=== PATIENT | female | born 1985 | race Caucasian/White ===

== ENCOUNTER 2023-01-05 19:33 | Outpatient (REF) | payer OTHER, SELFPAY ==
[2023-01-12 05:07] LABS: Age Gdln ACOG Testing Note (.); HPV Aptima Positive (Negative); HPV Genotype 16 Negative (Negative); HPV Genotype 18,45 Negative (Negative); IGP, Aptima HPV, rfx 16/18,45 Note (.)
== END 2023-01-05 19:34 ==
LOC: LAB 19:33
PROVIDERS: PCP Physician Assistant; Visit Provider Physician Assistant
DX: Z01.419 Encounter for gynecological examination (general) (routine) without abnormal findings (principal); Z11.51 Encounter for screening for human papillomavirus (HPV)
CPT/HCPCS: 87624; 87625; 88175; G0145

== ENCOUNTER 2023-01-25 17:18 | Outpatient (OUT) | payer OTHER, SELFPAY ==
--- NOTE | 2023-01-25 17:28 | XR_ITS ---
The [address] [address] Patient Name: TIFFANI GROSSMAN MRN: [id number] date: 1985 Sex: F Assigned Patient Location: [facility] Current Patient Location: RAD Accession/Order Number: [id number] Exam Date: 01/25/2023 17:29 Report Date: 01/25/2023 17:45 At the request of: CON ARECHIGA Procedure: XR abdomen 1V EXAM: XR abdomen 1V at 1736 hours HISTORY: KIDNEY STONES N20 . Follow-up study. COMPARISON: None. TECHNIQUE: AP supine abdomen KUB FINDINGS: The bowel gas pattern is unremarkable, with gas and fecal material throughout the colon. There is no evidence of bowel obstruction or focal ileus. Surgical clips are seen in the right upper quadrant. No apparent calcification is seen projecting over the kidneys or expected routes of the ureters. No calcification is seen in the pelvis. Degenerative changes are seen in the lower lumbar spine. IMPRESSION: Unremarkable bowel gas pattern without evidence of bowel obstruction or localized ileus. No focal calcification can be seen projecting over the kidneys and routes of the ureters. Electronically authenticated by: RELL BAEZA Date: 01/25/2023 17:45
== END 2023-01-25 17:19 | disposition home or self-care (01) ==
LOC: RAD 17:21
PROVIDERS: PCP Nurse Practitioner Primary Care; Visit Provider Urology
DX: N20.0 Calculus of kidney (principal)
CPT/HCPCS: 74018

== ENCOUNTER 2023-05-13 08:37 | Outpatient (OUT) | payer OTHER, SELFPAY ==
--- NOTE | 2023-05-13 08:39 | US_ITS ---
The [address] [address] Patient Name: TIFFANI GROSSMAN MRN: [id number] date: 1985 Sex: F Assigned Patient Location: US Current Patient Location: US Accession/Order Number: [id number] Exam Date: 05/13/2023 08:39 Report Date: 05/13/2023 15:14 At the request of: YOAN TOLEDO Procedure: US OB transvaginal EXAMINATION: US OB transvaginal HISTORY: MISSED MENSES COMPARISON: No relevant comparison available. FINDINGS: GESTATIONAL SAC: Present and normal appearing. YOLK SAC: Present and normal appearing. POLE: Present and normal appearing. CARDIAC: Present. UTERUS: Normal size and appearance. OVARIES: Right: Normal. Left: Not seen. CERVIX: 4.8 cm in length and closed. CUL-DE-SAC: Normal. OTHER: None. AGE BY LMP: 6 weeks 4 days ELPIDIO BY LMP: 01/02/2024 AGE BY US CRL: 6 weeks 5 days ELPIDIO BY US CRL: 01/01/2024 US/US OB transvaginal IMPRESSION: 1. Single live intrauterine . Electronically authenticated by: JOIE AYALA Date: 05/13/2023 15:14
== END 2023-05-13 08:38 | disposition home or self-care (01) ==
LOC: US 08:37
PROVIDERS: PCP Nurse Practitioner Primary Care; Visit Provider Obstetrics & Gynecology
DX: Z34.91 Encounter for supervision of normal pregnancy, unspecified, first trimester (principal); Z3A.01 Less than 8 weeks gestation of pregnancy
CPT/HCPCS: 76817

== ENCOUNTER 2023-06-08 10:00 | Outpatient (OUT) | payer OTHER, SELFPAY ==
[2023-06-08 10:32] LABS: Basophils Percent Auto 0.3 % (0.2-2.0); Eosinophils Percent Auto 0.4 % (0.9-7.0); Hematocrit 35.7 % (36.0-48.0); Immature Granulocytes Abs Auto 0.02 10^3/uL (0.00-0.03); Immature Granulocytes Pct Auto 0.3 % (0.0-0.5); Lymphocytes Absolute Auto 1.6 10^3/uL (1.2-3.8); Lymphocytes Percent Auto 19.8 % (20.5-60.0); Mean Corpuscular HGB Conc 33.6 g/dL (29.9-35.2); Mean Corpuscular Hemoglobin 27.6 pg (26.7-34.0); Mean Corpuscular Volume 82.3 fL (81.0-99.0); Mean Platelet Volume 9.9 fL (9.5-13.5); Monocytes Absolute Auto 0.4 10^3/uL (0.3-0.8); Monocytes Percent Auto 4.8 % (1.7-12.0); Neutrophils Absolute Auto 5.9 10^3/uL (1.4-6.5); Neutrophils Percent Auto 74.4 % (43.0-75.0); Platelet Count 202 10^3/uL (150-450); Red Blood Count 4.34 10^6/uL (4.20-5.40); Red Cell Distribution Width 14.4 % (11.0-15.0); White Blood Count 7.9 10^3/uL (4.0-11.0)
[2023-06-08 10:44] LABS: Estimated Average Glucose 91 mg/dL; Glycohemoglobin A1C 4.8 % (4.5-6.2)
[2023-06-08 11:01] LABS: Thyroid Stimulating Hormone 6.977 uIU/mL (0.358-3.740)
[2023-06-09 08:11] LABS: HIV Ab/p24 Ag Screen Non Reactive (Non Reactive)
[2023-06-09 09:11] LABS: Rubella Antibodies, IgG 1.09 index (Immune >0.99)
[2023-06-09 11:12] LABS: Rapid Plasma Reagin, Quant Non Reactive titer (NonRea<1:1)
[2023-06-09 12:12] LABS: HBsAg Screen Negative (Negative); HCV Ab Non Reactive (Non Reactive)
== END 2023-06-08 10:01 | disposition home or self-care (01) ==
LOC: LAB 10:01
PROVIDERS: PCP Nurse Practitioner Primary Care; Visit Provider Obstetrics & Gynecology
DX: N92.6 Irregular menstruation, unspecified (principal)
CPT/HCPCS: 36415; 83036; 84443; 85025; 86592; 86762; 86803; 86850; 86900; 86901; 87086; 87340; 87389

== ENCOUNTER 2023-07-21 21:04 | Outpatient (REF) | payer OTHER, SELFPAY ==
--- OUTSIDE RECORDS SUMMARY | 2023-07-21 21:07 | XMS_ITS | CCD ---
Author Name Unknown Address [address] [place] [address] Organization [facility] Care Team Providers Care Interior Decorator Paperhanging Name Role Phone KWAN ., LUKE Admitting Unavailable KWAN ., LUKE Attending Unavailable HAY ., DR ROBERTO Consulting Unavailable SHAMMO, WILBER Primary Care Unavailable LUE .ALYSON Consulting Unavailable LOMBARDO, LINDA Consulting Unavailable ITKIN, ALEXA Consulting Unavailable KWAN ., LUKE Consulting Unavailable SHAMMO, WIBLER Attending Unavailable SHAMMO, WILBER Admitting Unavailable SHAMMO, WILBER Consulting Unavailable SHAMMO, WILBER Attending Unavailable SHAMMO, WILBER Admitting Unavailable SHAMMO, WILBER Primary Care Unavailable SHAMMO, WILBER Consulting Unavailable Denys Landa Unavailable SHAMMO, WILBER TOMASA Primary Care Physician MD Denys Landa Attending Provider [phone] Shammo, [facility] Wilber T Primary Care Provider [phone] Denys Landa Attending Unavailabl e Denys Landa Admitting Unavailabl e Shammo, Wilber T Primary Care Unavailable YOAN TOLEDO Attending Unavailable SHAMMO, WILBER Primary Care Unavailable Alyson Chiu Attending Unavailable Alyson Chiu Attending Unavailable SHAMMO, WILBER Primary Care Unavailable SHAMMO, WILBER Primary Care Unavailable Alyson Chiu Admitting Unavailable Alyson Chiu Attending Unavailable Allergies Allergy Classification Reported Allergen(s) Allergy Type Date of Onset Reaction(s) Facility (3 sources) Penicillin Drug Allergy 3 Unknown [facility] Repository (5 sources) Penicillins; Translations: [penicillins] Allergy to substance 3 Anaphylaxis (disorder) [facility] Medications Current Medications Medication Drug Class(es) Dates Sig (Normalized) Sig (Original) amLODIPine 10 mg oral tablet (5 sources) Dihydropyridine Calcium Channel Harsh Start: 03-14-2023 take 10 mg by mouth once daily Amlodipine Active 10 MG PO Daily March 14, 2023 12:00am Start: 01-26-2023 amLODIPine 10 mg Tab Refills(s) 0 Start Date: 01/26/23 Status: Ordered diclofenac sodium 75 mg delayed release oral tablet (1 source) Nonsteroidal Anti-inflammatory Drug Start: 03-14-2023 take 75 mg by mouth twice daily Diclofenac Sodium Active 75 MG PO Twice daily March 14, 2023 12:00am diphenhydrAMINE hydrochloride 50 mg oral capsule (3 sources) Histamine-1 Receptor Antagonist Start: 03-14-2023 take 50 mg by mouth once daily at bedtime Diphenhydramine Hcl Active 50 MG PO Daily at bedtime March 14, 2023 12:00am escitalopram 10 mg oral tablet (5 sources) Serotonin Reuptake Inhibitor Start: 03-14-2023 take 10 mg by mouth once daily Escitalopram Oxalate Active 10 MG PO Daily March 14, 2023 12:00am Start: 01-26-2023 escitalopram 1 0 mg Tab Refills(s) 0 Start Date: 01/26/23 Status: Ordered take 1 tablet by pablo th every twenty-four hours Escitalopram Oxalate 5 MG 1 tablet Orally Once a day Active ferrous sulfate 134 mg oral tablet (3 sources) Start: 03-14-2023 take 27 mg by mouth once daily Ferrous Sulfate Active 27 MG PO Daily March 14, 2023 12:00am take 1 tablet by mouth three niko es weekly Iron 325 (65 Fe) MG 1 tablet Orally Three times a Week Active fluocinolone acetonide 0.1 mg/ml topical oil (2 sources) Corticosteroid Fluocinolone Bonifacio tonide Scalp 0.01 % 1 application Externally Twice a day Active fluocinonide 0.5 mg/ml topical solution (1 source) Corticosteroid Start: 03-14-2023 Fluocinonide Active 1 APPLIC TOPICAL every other day March 14, 2023 12:00am Iron Chews (2 sources) Start: 01-26-2023 take 1 mg by mouth once daily Iron Chews mg, Oral, Daily, Refills(s) 0 Start Date: 01/26/23 Status: Ordered levothyroxine sodium 0.137 mg oral tablet (5 sources) l-Thyroxine Start: 03-14-2023 take 1 tablet by mouth once daily Levothyroxine (Synthroid) 137 mcg tablet Active 137 MCG PO Daily March 14, 2023 12:00am Start: 01-26-2023 take 1 capsule by [facility] once daily levothyroxine 137 mcg (0.137 mg) oral capsule mcg cap(s), Oral, Daily, Refills(s) 0 Start Date: 01/26/23 Status: Ordered Levothyroxine So dium Active meclizine hydrochloride 25 mg oral tablet (5 sources) Antiemetic Start: 03-14-2023 take 25 mg by mouth once daily Meclizine Active 25 MG PO Daily March 14, 2023 12:00am Start: 01-26-2023 take 1 mg by mouth once daily meclizine 25 mg oral tablet, chewable mg tab(s), Chewed, Daily, Refills(s) 0 Start Date: 01/26/23 Status: Ordered take 1 tablet by [facility] every twelve hours Meclizine HCl 25 MG 1 tablet as needed Orally every 12 hrs Active melatonin 12 mg oral tablet (1 source) Start: 03-14-2023 take 12 mg by mouth at bedtime Melatonin Active 12 MG PO Bedtime March 14, 2023 12:00am 24 hr metoprolol succinate 100 mg extended release oral tablet (5 sources) beta-Adrenergic Harsh Start: 03-14-2023 take 25 mg by mouth once daily Metoprolol Succinate Active 25 MG PO Daily March 14, 2023 12:00am Start: 01-26-2023 take 1 mg by mouth once daily metoprolol 100 mg ER Tab mg tab(s), Oral, Daily, Refills(s) 0 Start Date: 01/26/23 Status: Ordered take 1 capsule by [facility] once daily Metoprolol Succinate 100 MG 1 capsule Orally Once a day Active Multi Vitamin+ (2 sources) Start: 01-26-2023 Multi Vitamin+ Refill(s) 0 Start Date: 01/26/23 Status: Ordered omeprazole 40 mg delayed release oral capsule (5 sources) Proton Pump Inhibitor Start: 03-14-2023 take 40 mg by mouth once daily Omeprazole Active 40 MG PO Daily March 14, 2023 12:00am Start: 01-26-2023 take 1 mg by mouth once daily omeprazole 40 mg Cap-DR mg cap(s), Oral, Daily, Refills(s) 0 Start Date: 01/26/23 Status: Ordered ondansetron 4 mg disintegrating oral tablet (5 sources) Serotonin-3 Receptor Antagonist Start: 03-14-2023 Ondansetron Active 4 MG PO As Directed March 14, 2023 12:00am Start: 01-26-2023 take 1 mg by mouth e very eight hours Zofran 4 mg Tab mg tab(s), Oral, q8hr, Refills(s) 0 Start Date: 01/26/23 Status: Ordered take 1 tablet by pablo th every twenty-four hours Ondansetron HCl 4 MG 1 tablet Orally Once a day Active tiZANidine 4 mg oral tablet (1 source) Central alpha-2 Adrenergic Agonist Start: 03-14-2023 Tizanidine Active 4 MG PO As Directed March 14, 2023 12:00am Unisom Sleep Gels (2 sources) Start: 01-26-2023 take 1 mg by mouth every six hours Unisom Sleep Gels mg, Oral, q6hr, Refills(s) 0 Start Date: 01/26/23 Status: Ordered Problems Active Problems Problem Classification Problem Date Documented Da te Episodic/Chronic Abdominal hernia (1 source) Diaphragmatic hernia without obstruction or gangrene Episodic Calculus of urinary tract (3 sources) Ureteric stone; Translations: [Calculus of ureter] Onset: 3 Episodic Cardiac and circulatory congenital anomalies (2 sources) Arteriovenous malformation of digestive system vessel; Translations: [Arteriovenous malformation] Chronic Deficiency and other anemia (8 sources) Iron deficiency anemia, unspecified; Translations: [Iron deficiency anemia, unspecified] Onset: 3 Episodic Deficiency and other anemia (3 sources) Iron deficiency anemia; Translations: [Iron deficiency anemia, unspecified] 03-15-2023 Episodic Diverticulosis and diverticulitis (2 sources) Diverticular disease of colon; Translations: [Diverticulosis of intestine, part unspecified, without perforation or abscess without bleeding] Chronic Esophageal disorders (3 sources) Gastroesophageal reflux disease; Translations: [Gastro-esophageal reflux disease without esophagitis] Chronic Immunizations and screening for infectious disease (1 source) Encounter for screening for human immunodeficiency virus [HIV]; Translations: [ENCOUNTER FOR SCREENING FOR HIV] Onset: 3 Episodic Other gastrointestinal disorders (1 source) Diarrhea, unspecified Episodic Thyroid disorders (1 source) Hypothyroidism, unspecified; Translations: [HYPOTHYROIDISM UNSPECIFIED] Onset: 3 Chronic Past or Other Problems Problem Classification Problem Date Documented Date Episodic/Chronic Other screening for suspected conditions (not mental disorders or infectious disease) (2 sources) Encounter for screening for cardiovascular disorders; Translations: [Encounter for screening for nutritional disorder] Onset: 08-25-2022 Episodic Residual codes; unclassified (1 source) 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]; Translations: [ACQUIRED ABSENCE OF STOMACH] Onset: 08-25-2022 Episodic Results Test Name Value Interpretation Reference Range Facility Reminderson 07-11-2023 Reminders - From: Ewa Valentin To: EU - Recalls Aram; Sent: 01/26/2023 10:51:29 EDT Show up: 06/28/2023 09:51:00 EST Subject: Reminder Message Due Date/Time: 07/28/2023 09:51:00 EST Call pt to schedule a KUB and YAMILETH Called pt and left VM to return our call - From: Ana Sherwood (EU - Recalls Aram) To: Alyson Chiu MD; Sent: 07/11/2023 13:04:24 EST Show up: 07/11/2023 13:03:00 EST Subject: RE: Reminder Message Called pt and she states that she is 15 weeks and was wondering if imaging is still safe. Please advise. - From: Alyson Chiu MD To: EU - Recalls Aram; Sent: 07/11/2023 18:00:02 EST Show up: 07/11/2023 18:00:00 EST Subject: RE: Reminder Message renal US is safe, can hold off on KUB Normal [facility] HCG ( test) Ayana hallman Ql (U)Ordered By: Denys Landa on 03-15-2023 HCG ( test) Ql (U) Negative [facility] HCG,Urineon 03-15-2023 Beta HCG ( test) Ql (U) Negative Normal [facility] Comment on above: Result Comment: PERF ORMED BY: [address] [place] [id number] PATHOLOGIST SUPERVISOR CHLORINE LIQUEFACTION SALVADOR LEHMAN M.D. Performed By: #### U HCG #### [facility] [address] [id number] [facility] Arturo 03-15-2023 L Specimen: [id number] Received: 03/15/23 Status: KENISHA Barnessue Num: [id number] Spec Type: Surgical Subm Dr: Denys Landa MD Tissues: A Duodenum - Biopsy (DUODENAL BX) B STOMACH FOR HP (ANTRAL BX HP) C Esophagus Biopsy (ESOPHAGUS BX) Procedures: HE/6, Gross/Micro L4/3, H PYLORI Age/ Patient Sex Location Account Attending Physician EstefanyLisa R 37/F [id number] Denys Landa MD SPEC NUM: [id number] RECD: 03/15/23 STATUS: KENISHA MONTES DE OAC NUM: [id number] RODERICK: 03/15/23- SUBM DR: Denys Landa MD ENTERED: 03/15/[address] [facility] [address]: CESAR TYPE: Surgical DEPT: S ORDERED: HE/6, Gross/Micro L4/3, H PYLORI ORDERED: HE/6, Gross/Micro L4/3, H PYLORI Pathological Diagnosis A. Duodenal biopsy: - Small bowel mucosa with minor congestion in both fragments, including minor degrees of stromal chronic inflammation in at least 1 fragment, and minor gastric metaplasia in the other fragment, suggesting minor degrees of peptic duodenitis, otherwise still with somewhat preserved villous structures, and without any abnormal lymphocytic exocytosis, or any other features or effects of celiac sprue identified B. Gastric antral biopsy: - Antral mucosa with mild chronic reactive gastropathy, including mildly associated peptic congestion, and rare tiny embedded pill crystal also identified in the lamina propria, otherwise without intestinal metaplasia, acute inflammation, erosion, or any significant stromal chronic inflammation observed - H. pylori immunostain with appropriate control is also negative for identified Helicobacter organisms or infection C. Esophagus biopsy: - Squamous mucosa with mild squamous acanthosis and focally mildly associated lymphocytic exocytosis and spongiosis, and at least 1 noted eosinophil in the stromal portion, otherwise without any obvious eosinophilic exocytosis or eosinophilic esophagitis identified Specimen: [id number] Received: 03/15/23 Status: KENISHA Montes De Oca Num: [id number] Spec Type: Surgical Subm Dr: Denys Landa MD Tissues: A Duodenum - Biopsy (DUODENAL BX) B STOMACH FOR HP (ANTRAL BX HP) C Esophagus Biopsy (ESOPHAGUS BX) Procedures: HE/6, Gross/Micro L4/3, H PYLORI Patient: Lisa Allison [id number] (Continued) Specimen: [id number] Received: 03/15/23 (Continued) Signed (signature on file) Bharti Obrien MD 03/16/23 1658 Specimen: [id number] Received: 03/15/23 Status: KENISHA Montes [place] Num: [id number] Spec Type: Surgical Subm Dr: Denys Landa MD Tissues: A Duodenum - Biopsy (DUODENAL BX) B STOMACH FOR HP (ANTRAL BX HP) C Esophagus Biopsy (ESOPHAGUS BX) Procedures: HE/6, Gross/Micro L4/3, H PYLORI Patient: Lisa Allison [id number] (Continued) Specimen: [id number] Received: 03/15/23-1149 (Continued) Clinical Information LARISSA, rule out sprue, rule out H. pylori, rule out EOE Gross Description A. Received in formalin labeled with the patient's name, date of and duodenal biopsy are two burnham tissues averaging 0.3 cm. Entirely submitted in one cassette labeled A1. B. Received in formalin labeled with the patient's name, date of and antral biopsy is one burnham tissue measuring 0.4 x 0.2 x 0.2 cm. Entirely submitted in one cassette labeled B1. C. Received in formalin labeled with the patient's name, date of and esophagus biopsy is one burnham tissue measuring 0.4 x 0.2 x 0.1 cm. Entirely submitted in one cassette labeled C1. Microscopic Description A. Two H E slides reviewed. The microscopic examination confirms the diagnosis. B. Two H E slides reviewed. The microscopic examination confirms the diagnosis. C. Two H E slides reviewed. The microscopic examination confirms the diagnosis. CPT Codes 36030q7, 89528 -- (more content not included)... [facility] Calculus Analysison 02-06-20 23 Calcium oxalate dihydrate Infrared spectroscopy (Stone) [Mass fraction] 30 % Invalid Interpretation Code [facility] Comment on above: Performed By: #### 1 [id number] #### [facility] [address] [place] [address] Calcium oxalate monohydrate (Stone) [Mass fraction] 70 % Invalid Interpretation Code [facility] Comment on above: Performed By: #### 1 [id number] #### [facility] [address] [place] [address] Color (Stone) Brown Invalid Interpretation Code [facility] Comment on above: Performed By: #### 1 [id number] #### [facility] [address] [place] [address] Composition Comment Invalid Interpretation Code [facility] Comment on above: Result Comment: Perc entage (Represents the % composition) Performed By: #### 1 [id number] #### [facility] [address] [place] [address] Disclaimer: Comment Invalid Interpretation Code [facility] Comment on above: Result Comment: This test was developed and its performance characteristics determined by [employer]. It has not been cleared or approved by the Food and Drug Administration. Performed at: [address] [id number] PhD Roya Prajapati Performed By: #### 1 [id number] #### [facility] [address] [place] [address] Laboratory comment Asa (Report) Comment Invalid Interpretation Code [facility] Comment on above: Result Comment: Brad tafoya questions regarding Calculi Analysis contact [facility] at: [phone]. Performed By: #### 1 [id number] #### [facility] [address] [place] [address] Please Note: Comment Invalid Interpretation Code [facility] Comment on above: Result Comment: Calc dory report will follow via computer, mail or histological illustrator delivery. Performed By: #### 1 [id number] #### [facility] [address] [place] [address] Size (Stone) [Entitic vol] 3x3 Invalid Interpretation Code [facility] Comment on above: Result Comment: Mult iple pieces received. Dimensions of the largest piece reported. Performed By: #### 1 [id number] #### [facility] [address] [place] [address] Specimen source subject Nom Comment Invalid Interpretation Code [facility] Comment on above: Result Comment: Not provided Performed By: #### 1 [id number] #### [facility] [address] [place] [address] Stone Photo Comment Invalid Interpretation Code [facility] Comment on above: Result Comment: Phot ograph will follow under a separate cover Performed By: #### 1 [id number] #### [facility] [address] [place] [address] Weight (Stone) 8 mg Invalid Interpretation Code [facility] Comment on above: Performed By: #### 1 [id number] #### [facility] [address] [place] [address] [employer] 01-26-2023 Forms [id number] #1.00CD:127 Normal [facility] Patient Educationon 01-27-20 23 Patient Education Nephrology Dietary Guidelines to Help Prevent Kidney Stones Kidney stones are deposits of minerals and salts that form inside your kidneys. Your risk of developing kidney stones may be greater depending on your diet, your lifestyle, the medicines you take, and whether you have certain medical conditions. Most people can lower their chances of developing kidney stones by following the instructions below. Your dietitian may give you more specific instructions depending on your overall health and the type of kidney stones you tend to develop. What are tips for following this plan? Reading food labels ? Choose foods with no salt added or low-salt labels. Limit your salt (sodium) intake to less than 1,500 mg a day. ? Choose foods with calcium for each meal and snack. Try to eat about 300 mg of calcium at each meal. Foods that contain 200?500 mg of calcium a serving include: ? 8 oz (237 mL) of milk, calcium-fortifiednon -dairy milk, and calcium-fortifiedfru it juice. Calcium-fortified means that calcium has been added to these drinks. ? 8 oz (237 mL) of kefir, yogurt, and soy yogurt. ? 4 oz (114 g) of tofu. ? 1 oz (28 g) of cheese. ? 1 cup (150 g) of dried figs. ? 1 cup (91 g) of cooked broccoli. ? One 3 oz (85 g) can of sardines or mackerel. Most people need 1,000?1,500 mg of calcium a day. Talk to your dietitian about how much calcium is recommended for you. Shopping ? Buy plenty of fresh fruits and vegetables. Most people do not need to avoid fruits and vegetables, even if these foods contain nutrients that may contribute to kidney stones. ? When shopping for convenience foods, choose: ? Whole pieces of fruit. ? Pre-made salads with dressing on the side. ? Low-fat fruit and yogurt smoothies. ? Avoid buying frozen meals or prepared deli foods. These can be high in sodium. ? Look for foods with live cultures, such as yogurt and kefir. ? Choose high-fiber grains, such as whole-wheat breads, oat bran, and wheat cereals. Cooking ? Do not add salt to food when cooking. Place a salt shaker on the table and allow each person to add his or her own salt to taste. ? Use vegetable protein, such as beans, textured vegetable protein (TVP), or tofu, instead of meat in pasta, casseroles, and soups. Meal planning ? Eat less salt, if told by your dietitian. To do this: ? Avoid eating processed or pre-made food. ? Avoid eating fast food. ? Eat less animal protein, including cheese, meat, poultry, or fish, if told by your dietitian. To do this: ? Limit the number of times you have meat, poultry, fish, or cheese each week. Eat a diet free of meat at least 2 days a week. ? Eat only one serving each day of meat, poultry, fish, or seafood. ? When you prepare animal protein, cut pieces into small portion sizes. For most meat and fish, one serving is about the size of the palm of your hand. ? Eat at least five servings of fresh fruits and vegetables each day. To do this: ? Keep fruits and vegetables on hand for snacks. ? Eat one piece of fruit or a handful of berries with breakfast. ? Have a salad and fruit at lunch. ? Have two kinds of vegetables at dinner. ? Limit foods that are high in a substance called oxalate. These include: ? Spinach (cooked), rhubarb, beets, sweet potatoes, and Israeli chard. ? Peanuts. ? Potato chips, macedonian fries, and baked potatoes with skin on. ? Nuts and nut products. ? Chocolate. ? If you regularly take a diuretic medicine, make sure to eat at least 1 or 2 servings of fruits or vegetables that are high in potassium each day. These include: ? Avocado. ? Banana. ? Garrard, prune, carrot, or tomato juice. ? Baked potato. ? Cabbage. ? Beans and split peas. Lifestyle ? Drink enough fluid to keep your urine pale yellow. This is the most important thing you can do. Spread your fluid intake throughout the day. ? If you drink alcohol: ? Limit how much you use to: ? 0?1 drink a day for women who are not . ? 0?2 drinks a day for men. ? Be aware of how much alcohol is in your drink. In the [place] one drink equals one 12 oz bottle of beer (355 mL), one 5 oz glass of wine (148 mL), or one 1? oz glass of hard liquor (44 mL). ? Lose weight if told by your health care provider. Work with your dietitian to find an eating plan and weight loss strategies that work best for you. General information ? Talk to your health care provider and dietitian about taking daily supplements. You may be told the following depending on your health and the cause of your kidney stones: ? Not to take supplements with vitamin C. ? To take a calcium supplement. ? To take a daily probiotic supplement. ? To take other supplements such as magnesium, fish oil, or vitamin B6. ? Take ephq-fau-xrvqdzg and prescription medicines only as told by your health care provider. These include supplements. What foods should I limit? Limit your in (more content not included)... Normal [facility] RAD - MISCon 01-26-2023 RAD - MISC [id number] #1.00CD:127 Normal [facility] Screenson 01-26-2023 Screens [id number] #1.00CD:127 Normal [facility] Urology Office/Clinic Noteon 01-26-2023 Urology Office/Clinic Note Chief Complaint kidney stones HPI Staff Pt is a new pt, never before seen in our office. Here today due to kidney stones. [facility] 12/27/22 due to Rt flank pain & abdominal pain. DX: punctate Rt UVJ calculus w/ hydro CT 12/27/22 Pt did pass stone. Has with her today. Patient states she did have right flank pain following passing stone but has since subsided. Painful urination: no Blood in urine: no urinary frequency: no urinary urgency: no incomplete emptying: no nocturia: no weak stream: no post void dribbling: no urinary incontinence: no History of Present Illness Tests reviewed: reviewed UA, external records: labs, notes, CT I have reviewed the previous health record information and history for this patient from Dr. Herron @ [facility]. I have reviewed and verified the staff HPI to be accurate for this encounter. There have been no associated fever, chills, or blood in the urine. Denies any urinary infections since last encounter. Review of Systems PHQ Score Initial Depression Screen Score: 0 ROS - Provider Constitutional: denies weight loss, denies hot flashes. Eyes: denies eye problems. Gastrointestinal: denies nausea, denies vomiting. Cardiovascular: denies chest pain or angina. Integumentary: no dryness Musculoskeletal: denies musculoskeletal symptoms. ENMT: denies otolaryngeal symptoms. Respiratory: no shortness of breath. Heme/Lymph: denies easy bleeding tendency, denies easy bruising tendency. Psychiatric: no confusion, no anxiety. Genitourinary: See HPI. Physical Exam Vitals & Measurements HT: 71 in HT: 180.34 cm WT: 127 kg WT: 279.4 lb BMI: 39.05 General Appearance: alert , no acute distress, well nourished, well developed female. Assessment/Plan 37 yo F with hx of gastric sleeve referred for new patient evaluation of ureteral stone. 1. Ureteral stone (N20.1: Calculus of ureter) CT 12/27/22 - Punctate 2 mm Rt UVJ calculus w/ mild Rt hydronephrosis s/p IV Demerol, IV Toradol, and IV Dilaudid for pain, was admitted due to her intractable pain Pt did pass stone. Has with her today. No pain currently. Pt had gastric bypass in 2015 in [place]. Has had diarrhea since she had her baby. Pt is currently in touch with a GI doctor. Pt denies any family hx of kidney stones. We discussed management options moving forward including general dietary modifications, metabolic stone work-up including serum labs and 24-hour urine analysis, continued surveillance with imaging in 6 to 12 months or expectant management. The patient like to proceed with: -Dietary modifications: increase fluid to make 2.5L UOP, increase citrate, moderate animal proteins, less salt, more fruits/vegetables -Diarrhea control, cont workup with GI -Follow up in 6 mos with KUB and YAMILETH. If stones recur, will re-recommend metabolic workup Pt understands and agrees with plan. I spent 30 minutes today with the patient: reviewing tests in preparation to see and discuss them with the patient, obtaining and reviewing external separately obtained history, documenting clinical information in the electronic health records, and care coordination. Over half the time was spent performing a medical exam and evaluation, and counseling and educating the patient Follow-up With When Contact Information Aram RUSSELL, Alyson Burdick URL, URO In 6 months Additional Instructions: w/ KUB & YAMILETH Patient Education Dietary Guidelines to Help Prevent Kidney Stones I, Ewa Valentin, personally scribed for Dr. Chiu on 01/26/2023 10:54:27. . Documentation recorded by the scribe, Ewa Valentin, accurately reflects the services(s) I performed and decisions made by me. Authenticated by Dr. Chiu on 01/26/2023 21:45:19. Problem List/Past Medical History Ongoing Kidney stone Historical No qualifying data Procedure/Surgical History Appendectomy (08/01/2016), Gastric sleeve (08/01/2016), Cholecystectomy (08/01/2005), section, Knee arthroplasty. Medications amLODIPine 10 mg Tab escitalopram 10 mg Tab Iron Chews, Oral, Daily levothyroxine 137 mcg (0.137 mg) oral capsule, Oral, Daily meclizine 25 mg oral tablet, chewable, Chewed, Daily metoprolol 100 mg ER Tab, Oral, Daily Multi Vitamin+ omeprazole 40 mg Cap-DR, Oral, Daily Unisom Sleep Gels, Oral, q6hr Zofran 4 mg Tab, Oral, q8hr Allergies penicillins (Anaphylaxis) Social History Tobacco Former smoker, quit more than 30 days ago Tobacco Use:. Cigarettes, Vaping, 01/26/2023 Immunizations Vaccine Date Status influenza virus vaccine, inactivated 06/01/2022 Recorded Lab Results Ambulatory Point of Care Results Bilirubin Urine Dipstick: 1+ Small (01/26/23 09:53:00) Blood Urine Dipstick: Negative (01/26/23 09:53:00) Glucose Urine Dipstick: Negative (01/26/23 09:53:00) Ketones Urine Dipstick: Negative (01/26/23 09:53:00) Leukocytes Urine Dipstick: Negative (01/26/23 09:53:00) Nitrite Uri (more content not included)... [facility] Comment on above: Result Comment: Elec tronically Signed By: Alyson Chiu MD\.br\Date and Time Signed: 01/26/23 21:46 EDT\.br\Electronically Co-Signed By: Ewa Valentin.br\Date and Time Co-Signed: 01/26/23 10:54 EDT ED Note-Physicianon 01-24-20 ED Note-Physician [id number] 7#1.00CD:127 [facility] Lab Reportson 01-23-2023 Lab Reports [id number] 0#1.00CD:127 Normal [facility] RAD - CT Reporton 01-23-2023 RAD - CT Report [id number]# 1.00CD:127 Normal [facility] CBC AUTO DIFFon 12-28-2022 BASO # 0.0 103/ul Normal 0.0-0.1 [facility] Comment on above: Performed By: #### F ERR, FETIBC #### [facility] [address] [place] [address] Dr. Michele Obrien Basophils/100 WBC (Bld) 0.5 % Normal 0.2-2.0 [facility] Comment on above: Performed By: #### F ERR, FETIBC #### [facility] [address] [place] [address] Dr. Michele Obrien EO # 0.2 103/ul Normal 0.0-0.7 [facility] Comment on above: Performed By: #### F ERR, FETIBC #### [facility] [address] [place] [address] Dr. Michele Obrien Eosinophils/100 WBC (Bld) 2.6 % Normal 0.9-7.0 [facility] Comment on above: Performed By: #### F ERR, FETIBC #### [facility] [address] [place] [address] Dr. Michele Obrien Erythrocyte distribution width (RBC) [Ratio] 19.1 % Critically high 11.0-15.0 [facility] Comment on above: Performed By: #### F ERR, FETIBC #### [facility] [address] [place] [address] Dr. Michele Obrien Hematocrit (Bld) [Volume fraction] 37.6 % Normal 36.0-48.0 [facility] Comment on above: Performed By: #### F ERR, FETIBC #### [facility] [address] [place] [address] Dr. Michele Obrien Hemoglobin (Bld) [Mass/Vol] 11.9 g/dL Critically low 12.0-16.0 [facility] Comment on above: Performed By: #### F ERR, FETIBC #### [facility] [address] [address] [address] Michele Obrien IG # 0.03 10e3/ul Normal 0.00-0.03 [facility] Comment on above: Performed By: #### F ERR, FETIBC #### [facility] [address] [address] [address] Michele Obrien IG % 0.3 % Normal 0.0-0.5 [facility] Comment on above: Performed By: #### F ERR, FETIBC #### [facility] [address] [place] [address] Dr. Michele Obrien LYMPH # 1.6 103/ul Normal 1.2-3.8 [facility] Comment on above: Performed By: #### F ERR, FETIBC #### [facility] [address] [place] [address] Dr. Michele Obrien Lymphocytes/100 WBC (Bld) 18.4 % Critically low 20.5-60.0 [facility] Comment on above: Performed By: #### F ERR, FETIBC #### [facility] [address] [place] [address] Dr. Michele Obrien MANUAL DIFF REQ NO Normal [facility] Comment on above: Performed By: #### F ERR, FETIBC #### [facility] [address] [address] [address] Michele Obrien MCH (RBC) [Entitic mass] 23.7 pg Critically low 26.7-34.0 [facility] Comment on above: Performed By: #### F ERR, FETIBC #### [facility] [address] [place] [address] Dr. Michele Obrien MCHC (RBC) [Mass/Vol] 31.6 g/dL Normal 29.9-35.2 [facility] Comment on above: Performed By: #### F ERR, FETIBC #### [facility] [address] [place] [address] Dr. Michele Obrien MCV (RBC) [Entitic vol] 74.9 fL Critically low 81.0-99.0 [facility] Comment on above: Performed By: #### F ERR, FETIBC #### [facility] [address] [place] [address] Dr. Michele Obrien MONO # 0.5 103/ul Normal 0.3-0.8 [facility] Comment on above: Performed By: #### F ERR, FETIBC #### [facility] [address] [place] [address] Dr. Michele Obrien Monocytes/100 WBC (Bld) 5.9 % Normal 1.7-12.0 [facility] Comment on above: Performed By: #### F ERR, FETIBC #### [facility] [address] [place] [address] Dr. Michele Obrien NEUT # 6.4 103/ul Normal 1.4-6.5 [facility] Comment on above: Performed By: #### F ERR, FETIBC #### [facility] [address] [place] [address] Dr. Michele Obrien Neutrophils/100 WBC (Bld) 72.3 % Normal 43.0-75.0 [facility] Comment on above: Performed By: #### F ERR, FETIBC #### [facility] [address] [place] [address] Dr. Michele Obrien Platelet mean volume (Bld) [Entitic vol] 10.2 fL Normal 9.5-13.5 [facility] Comment on above: Performed By: #### F ERR, FETIBC #### [facility] [address] [place] [address] Dr. Michele Obrien PLT 243 103/ul Normal 150-450 [facility] Comment on above: Performed By: #### F ERR, FETIBC #### [facility] [address] [place] [address] Dr. Michele Obrien RBC 5.02 106/ul Normal 4.20-5.40 [facility] Comment on above: Performed By: #### F ERR, FETIBC #### [facility] [address] [address] [address] Michele Obrien WBC 8.9 103/ul Normal 4.0-11.0 [facility] Comment on above: Performed By: #### F ERR, FETIBC #### [facility] [address] [address] ABD/PELVIS WO CONon 12-28 CT ABD/PELVIS WO CON EXAMINATION: CT ABD/PELVIS WO CON, 12/27/2022 8:45 PM PDT HISTORY: Right flank pain COMPARISON: None. TECHNIQUE: CT scan of the abdomen and pelvis was performed without IV contrast. CT dose reduction technique was used, including Automated Exposure Control. FINDINGS: Lung: No significant finding. Liver: No significant finding. Gallbladder: Absent. Spleen: Borderline splenomegaly. Pancreas: No significant finding. Adrenal glands: No significant finding. Kidneys, ureters and bladder: Punctate right UVJ calculus with mild right hydroureteronephrosi s. Bowel: Surgical changes from gastric sleeve. Small hiatal hernia. Peritoneum/retroperi toneum: No significant finding. Lymph nodes: No significant finding. Vessels: No significant finding. Body wall: Tiny fat-containing umbilical hernia. Reproductive: IUD in place. Bones: No significant finding. IMPRESSION: Punctate right UVJ calculus with mild right hydroureteronephrosi s. Borderline splenomegaly. Small hiatal hernia. Electronically authenticated by: ALEXA WHITE Date: 2022-12-28 02:25 Normal [facility] ER URINE PROFILEon 3 Bilirubin Ql (U) Negative Normal NEGATIVE [facility] Comment on above: Performed By: #### H IV12 #### [facility] [address] [address] [address] Michele Obrien Clarity (U) CLEAR Normal CLEAR [facility] Comment on above: Performed By: #### H IV12 #### [facility] [address] [place], [place] [address] Dr. Michele Obrien Color (U) LT. YELLOW Normal YELLOW [facility] Comment on above: Performed By: #### H IV12 #### [facility] [address] [address] [address] Michele JACKSON A micrscopic examination will be performed if indicated. Normal [facility] Comment on above: Performed By: #### H IV12 #### [facility] [address] [place] [address] Dr. Michele Obrien Glucose Ql (U) Negative Normal NEGATIVE [facility] Comment on above: Performed By: #### H IV12 #### [facility] [address] [address] [address] Michele Obrien Hemoglobin Ql (U) MODERATE Abnormal NEGATIVE [facility] Comment on above: Performed By: #### H IV12 #### [facility] [address] [place] [address] Dr. Michele Obrien Ketones Ql (U) Negative Normal NEGATIVE [facility] Comment on above: Performed By: #### H IV12 #### [facility] [address] [place] [address] Dr. Michele Obrien LEUKOCYTES Negative Normal NEGATIVE [facility] Comment on above: Performed By: #### H IV12 #### [facility] [address] [place] [address] Dr. Michele Obrien Nitrite Ql (U) Negative Normal NEGATIVE [facility] Comment on above: Performed By: #### H IV12 #### [facility] [address] [place] [address] Dr. Michele Obrien pH (U) 5.5 [pH] Normal 5-9 [facility] Comment on above: Performed By: #### H IV12 #### [facility] [address] [place] [address] Dr. Michele Obrien SPEC GRAVITY 1.025 Normal 1.005-<=1.025 [facility] Comment on above: Performed By: #### H IV12 #### [facility] [address] [place] [address] Dr. Michele Obrien UA PROTEIN Negative Normal NEGATIVE/ TRACE [facility] Comment on above: Performed By: #### H IV12 #### [facility] [address] [place] [address] Dr. Michele Obrien UR MICRO IND INDICATED Normal [facility] Comment on above: Performed By: #### H IV12 #### [facility] [address] [place] [address] Dr. Michele Obrien Urobilinogen Qn (U) 0.2 {Ijeoma'U}/dL Normal 0.2 - 1. 0 [facility] Comment on above: Performed By: #### H IV12 #### [facility] [address] [place] [address] Dr. Michele Obrien PREG HCG QUALon 12-28-2022 , QUAL Negative Normal NEGATIVE [facility] Comment on above: Performed By: #### P REG #### [facility] [address] [place] [address] Dr. Michele Obrien PROF 14(COMP METB)on 023 Albumin [Mass/Vol] 3.4 g/dL Normal 3.4-5.0 [facility] Comment on above: Performed By: #### C MP #### [facility] [address] [place] [address] Dr. Michele Obrien Albumin/Globulin [Mass ratio] 1.1 {ratio} Normal [facility] Comment on above: Performed By: #### C MP #### [facility] [address] [place] [address] Dr. Michele Obrien ALP [Catalytic activity/Vol] 73 U/L Normal 46-116 [facility] Comment on above: Performed By: #### C MP #### [facility] [address] [place] [address] Dr. Michele Obrien ALT [Catalytic activity/Vol] 18 U/L Normal 14-59 [facility] Comment on above: Performed By: #### C MP #### [facility] [address] [place] [address] Dr. Michele Obrien Anion gap [Moles/Vol] 11.9 mmol/L Normal [facility] Comment on above: Performed By: #### C MP #### [facility] [address] [place] [address] Dr. Michele Obrien AST [Catalytic activity/Vol] 13 U/L Critically low 15-37 [facility] Comment on above: Performed By: #### C MP #### [facility] [address] [place] [address] Dr. Michele Obrien Bilirubin [Mass/Vol] 0.1 mg/dL Critically low 0.2-1.0 [facility] Comment on above: Performed By: #### C MP #### [facility] [address] [address] [address] Michele Obrien Calcium [Mass/Vol] 8.6 mg/dL Normal 8.5-10.1 [facility] Comment on above: Performed By: #### C MP #### [facility] [address] [place] [address] Dr. Michele Obrien Chloride [Moles/Vol] 105 mmol/L Normal 98-107 [facility] Comment on above: Performed By: #### C MP #### [facility] [address] [place] [address] Dr. Michele Obrien CO2 [Moles/Vol] 26.7 mmol/L Normal 21.0-32.0 [facility] Comment on above: Performed By: #### C MP #### [facility] [address] [place] [address] Dr. Michele Obrien Creatinine [Mass/Vol] 0.85 mg/dL Normal 0.55-1.02 [facility] Comment on above: Performed By: #### C MP #### [facility] [address] [place] [address] Dr. Michele Obrien EGFR-AF ZAMBIAN >60 Normal >=60 [facility] Comment on above: Performed By: #### C MP #### [facility] [address] [address] [address] Michele Obrien EGFR-NON AF ZAMBIAN >60 Normal >=60 [facility] Comment on above: Performed By: #### C MP #### [facility] [address] [place] [address] Dr. Michele Obrien Globulin (S) [Mass/Vol] 3.1 g/dL Normal [facility] Comment on above: Performed By: #### C MP #### [facility] [address] [address] [address] Michele Obrien Glucose [Mass/Vol] 123 mg/dL Critically high 74-106 [facility] Comment on above: Performed By: #### C MP #### [facility] [address] [address] [address] Michele Obrien Potassium [Moles/Vol] 3.6 mmol/L Normal 3.5-5.1 [facility] Comment on above: Performed By: #### C MP #### [facility] [address] [address] [address] Michele Obrien Protein [Mass/Vol] 6.5 g/dL Normal 6.4-8.2 [facility] Comment on above: Performed By: #### C MP #### [facility] [address] [address] [address] Michele Obrien Sodium [Moles/Vol] 140 mmol/L Normal 136-145 [facility] Comment on above: Performed By: #### C MP #### [facility] [address] [address] [address] Michele Obrien Urea nitrogen [Mass/Vol] 14.0 mg/dL Normal 7.0-18.0 [facility] Comment on above: Performed By: #### C MP #### [facility] [address] [address] [address] Michele Obrien Urea nitrogen/Creatinine [Mass ratio] 16.5 mg/mg Normal [facility] Comment on above: Performed By: #### C MP #### [facility] [address] [address] [address] Michele Obrien URINE MICROSCOPIC ONLYon BACTERIA TRACE Abnormal NONE SEEN [facility] Comment on above: Performed By: #### H IV12 #### [facility] [address] [address] [address] Michele Obrien Bacteria identified Cx Nom (U) NOT INDICATED Normal [facility] Comment on above: Performed By: #### H IV12 #### [facility] [address] [place] [address] Dr. Michele Obrien CAST NONE SEEN Normal NONE SEEN [facility] Comment on above: Performed By: #### H IV12 #### [facility] [address] [place] [address] Dr. Michele Obrien Crystals LM Nom (Urine sed) NONE SEEN Normal NONE SEEN [facility] Comment on above: Performed By: #### H IV12 #### [facility] [address] [place] [address] Dr. Michele Obrien Epithelial cells LM Ql (Urine sed) FEW Abnormal NONE SEEN /RARE [facility] Comment on above: Performed By: #### H IV12 #### [facility] [address] [place] [address] Dr. Michele Obrien MUCOUS TRACE Abnormal NONE SEEN [facility] Comment on above: Performed By: #### H IV12 #### [facility] [address] [place] [address] Dr. Michele Obrien RBC 20-50 Abnormal 0-2 [facility] Comment on above: Performed By: #### H IV12 #### [facility] [address] [place] [address] Dr. Michele Obrien WBC 0-2 Abnormal NONE SEEN [facility] Comment on above: Performed By: #### H IV12 #### [facility] [address] [place] [address] Dr. Michele Obrien HIV 1 AND 2 WITH REFLEXon HIV Screen 4th Generation wRfx Non-Reactive Normal Non Reactive [facility] Comment on above: Result Comment: HIV Negative HIV-1/HIV-2 antibodies and HIV-1 p24 antigen were NOT detected. There is no laboratory evidence of HIV infection. Performed By: #### H IV12 #### [facility] [address] [place] [address] Dr. Michele Obrien FERRITINon 10-16-2022 Ferritin [Mass/Vol] 6.0 ng/mL Critically low 6.2-137.0 [facility] Comment on above: Performed By: #### F ERR, FETIBC #### [facility] [address] [place], [place] [id number] Dr. Michele Obrien FREE T3on 10-16-2022 FREE T3 1.87 pg/mlL Critically low 2.18-3.98 [facility] Comment on above: Performed By: #### H IV12 #### [facility] [address] [place] [address] Dr. Michele Obrien HEMOGRAM AND PLATELon 2022 Hematocrit (Bld) [Volume fraction] 35.7 % Critically low 36.0-48.0 [facility] Comment on above: Performed By: #### H H #### [facility] [address] [place] [address] Dr. Michele Obrien Hemoglobin (Bld) [Mass/Vol] 10.4 g/dL Critically low 12.0-16.0 [facility] Comment on above: Performed By: #### H H #### [facility] [address] [place] [address] Dr. Michele Obrien MCH (RBC) [Entitic mass] 20.0 pg Critically low 26.7-34.0 [facility] Comment on above: Performed By: #### H H #### [facility] [address] [place] [address] Dr. Michele Obrien MCHC (RBC) [Mass/Vol] 29.1 g/dL Critically low 29.9-35.2 [facility] Comment on above: Performed By: #### H H #### [facility] [address] [place] [address] Dr. Michele Obrien MCV (RBC) [Entitic vol] 68.5 fL Critically low 81.0-99.0 [facility] Comment on above: Performed By: #### H H #### [facility] [address] [place] [address] Dr. Michele Obrien PLT 241 103/ul Normal 150-450 [facility] Comment on above: Performed By: #### H H #### [facility] [address] [place] [address] Dr. Michele Obrien RBC 5.21 106/ul Normal 4.20-5.40 [facility] Comment on above: Performed By: #### H H #### [facility] [address] [place] [address] Dr. Michele Obrien WBC 6.9 103/ul Normal 4.0-11.0 [facility] Comment on above: Performed By: #### H H #### [facility] [address] [place] [address] Dr. iMchele Obrien IRON AND TIBCon 10-16-2022 % SATURATION 4.5 % Normal [facility] Comment on above: Performed By: #### F ERR, FETIBC #### [facility] [address] [place] [address] Dr. Michele Obrien Iron [Mass/Vol] 18.0 ug/dL Critically low 50.0-170.0 [facility] Comment on above: Performed By: #### F ERR, FETIBC #### [facility] [address] [place] [address] Dr. Michele Obrien TIBC DIRECT 396.0 ug/dL Normal 250.0-450.0 [facility] Comment on above: Performed By: #### F ERR, FETIBC #### [facility] [address] [place] [address] Dr. Michele Obrien TSH W/ REFLEX TO FT4on 10-16 TSH 3.577 uIU/mL Normal 0.358-3.740 [facility] Comment on above: Performed By: #### H IV12 #### [facility] [address] [place] [address] Dr. Michele Obrien VITAMIN Con 09-03-2022 Vitamin C 0.2 mg/dL Critically low 0.4-2.0 [facility] Comment on above: Result Comment: Li min C deficiency is generally defined as plasma or serum concentrations less than 0.2 mg/dL and levels between 0.2 and 0.4 mg/dL are considered low. Performed By: #### F ERR, FETIBC #### [facility] [address] [place] [address] Dr. Michele Obrien VITAMIN Aon 09-01-2022 Vitamin A 33.6 ug/dL Normal 18.9-57.3 [facility] Comment on above: Result Comment: Refe rence intervals for vitamin A determined from [facility] internal studies. Individuals with vitamin A less than 20 ug/dL are considered vitamin A deficient and those with serum concentrations less than 10 ug/dL are considered severely deficient. . This test was developed and its performance characteristics determined by [facility]. It has not been cleared or approved by the Food and Drug Administration. Performed By: #### V ITAMA #### [facility] [address] [place] [address] Dr. Michele Obrien VITAMIN Kodi 09-01-2022 Vitamin E (Alpha T) 11.9 mg/L Normal 5.9-19.4 [facility] Comment on above: Performed By: #### V ITCARSON #### [facility] [address] [place] [address] Dr. Michele Obrien Vitamin E (Gamma T) 1.5 mg/L Normal 0.7-4.9 [facility] Comment on above: Result Comment: Refe rence intervals for alpha and gamma-tocopherol determined from National Health and Nutrition Examination Survey, 3601-2041. Individuals with alpha-tocopherol levels less than 5.0 mg/L are considered vitamin E deficient. Performed By: #### V ITAE #### [facility] [address] [place] [address] Dr. Michele Obrien VITAMIN Garrett 08-26-2022 Vitamin K1 0.24 ng/mL Normal 0.10-2.20 [facility] Comment on above: Performed By: #### F ERR, FETIBC #### [facility] [address] [place] [address] Dr. Michele Obrien SELENIUM, PLASMAon Selenium, Serum/Plasma 110 ug/L Normal 93-198 [facility] Comment on above: Performed By: #### H IV12 #### [facility] [address] [place] [address] Dr. Michele Obrien VITAMIN B1 (THIAMINE)on 08-02 Vit. B1, Whole Blood 126.2 nmol/L Normal 66.5-200.0 [facility] Comment on above: Performed By: #### F ERR, FETIBC #### [facility] [address] [place] [address] Dr. Michele Obrien ZINC SERUM OR PLASMAon 08-23 Zinc, Plasma or Serum 69 ug/dL Normal 44-115 [facility] Comment on above: Result Comment: Dete ction Limit = 5 Performed By: #### H IV12 #### [facility] [address] [place] [address] Dr. Michele Obrien FERRITINon 08-20-2022 Ferritin [Mass/Vol] 5.0 ng/mL Critically low 6.2-137.0 [facility] Comment on above: Performed By: #### F ERR, FETIBC #### [facility] [address] [place] [address] Dr. Michele Obrien FREE T4on 08-20-2022 Free T4 [Mass/Vol] 1.01 ng/dL Normal 0.76-1.46 [facility] Comment on above: Performed By: #### H IV12 #### [facility] [address] [place] [address] Dr. Michele Obrien GLYCOHEMOGLOBIN A1Con 2022 ADA RECOMMENDATION SEE BELOW Normal [facility] Comment on above: Result Comment: ADA RECOMMENDED LIMIT 4.0 - 6.0 ADA THERAPEUTIC TARGET < 7.0 ACTION SUGGESTED > 7.0 Performed By: #### H IV12 #### [facility] [address] [place] [address] Dr. Michele Obrien Glucose [Mass/Vol] 80 mg/dL Normal [facility] Comment on above: Performed By: #### H IV12 #### [facility] [address] [place] [address] Dr. Michele Obrien HbA1c (Bld) [Mass fraction] 4.4 % Critically low 4.5-6.2 [facility] Comment on above: Performed By: #### H IV12 #### [facility] [address] [place] [address] Dr. Michele Obrien HEMOGRAM AND PLATELon 2022 Hematocrit (Bld) [Volume fraction] 29.3 % Critically low 36.0-48.0 [facility] Comment on above: Performed By: #### H IV12 #### [facility] [address] [place] [address] Dr. Michele Obrien Hemoglobin (Bld) [Mass/Vol] 9.3 g/dL Critically low 12.0-16.0 [facility] Comment on above: Performed By: #### H IV12 #### [facility] [address] [place] [address] Dr. Michele Obrien MCH (RBC) [Entitic mass] 20.1 pg Critically low 26.7-34.0 [facility] Comment on above: Performed By: #### H IV12 #### [facility] [address] [place] [address] Dr. Michele Obrien MCHC (RBC) [Mass/Vol] 31.7 g/dL Normal 29.9-35.2 [facility] Comment on above: Performed By: #### H IV12 #### [facility] [address] [place] [address] Dr. Michele Obrien MCV (RBC) [Entitic vol] 63.4 fL Critically low 81.0-99.0 [facility] Comment on above: Performed By: #### H IV12 #### [facility] [address] [place] [address] Dr. Michele Obrien PLT 213 103/ul Normal 150-450 [facility] Comment on above: Performed By: #### H IV12 #### [facility] [address] [place] [address] Dr. Michele Obrien RBC 4.62 106/ul Normal 4.20-5.40 [facility] Comment on above: Performed By: #### H IV12 #### [facility] [address] [place] [address] Dr. Michele Obrien WBC 5.8 103/ul Normal 4.0-11.0 [facility] Comment on above: Performed By: #### H IV12 #### [facility] [address] [place] [address] Dr. Michele Obrien IRON AND TIBCon 08-20-2022 % SATURATION 6.5 % Normal [facility] Comment on above: Performed By: #### F ERR, FETIBC #### [facility] [address] [address] [address] Michele Obrien Iron [Mass/Vol] 22.0 ug/dL Critically low 50.0-170.0 [facility] Comment on above: Performed By: #### F ERR, FETIBC #### [facility] [address] [address] [address] Michele Obrien TIBC DIRECT 340.0 ug/dL Normal 250.0-450.0 [facility] Comment on above: Performed By: #### F ERR, FETIBC #### [facility] [address] [address] [address] Michele Obrien LIPID PROFILEon 08-20-2022 CHOL-HDL RATIO NORM SEE BELOW Normal [facility] Comment on above: Result Comment: 3.3 - 4.4 LOW RISK 4.4 - 7.1 AVERAGE RISK 7.1 - 11.0 MODERATE RISK >11.0 HIGH RISK Performed By: #### F ERR, FETIBC #### [facility] [address] [address] [address] Michele Obrien Cholesterol [Mass/Vol] 146 mg/dL Normal <=200 [facility] Comment on above: Performed By: #### F ERR, FETIBC #### [facility] [address] [address] [address] Michele Obrien Cholesterol in HDL [Mass/Vol] 58 mg/dL Normal 40-60 [facility] Comment on above: Performed By: #### F ERR, FETIBC #### [facility] [address] [address] [address] Michele Obrien Cholesterol in LDL [Mass/Vol] 66.8 mg/dL Normal [facility] Comment on above: Performed By: #### F ERR, FETIBC #### [facility] [address] [address] [address] Michele Obrien Cholesterol.total/Ch olesterol in HDL [Mass ratio] 2.5 {ratio} Normal [facility] Comment on above: Performed By: #### F ERR, FETIBC #### [facility] [address] [address] [address] Michele Obrien HDL NORMAL > or = 60 mg/dl - LOW CARDIOVASCULAR RISK <40 mg/dl - HIGH CARDIOVASCULAR RISK Normal [facility] Comment on above: Performed By: #### F ERR, FETIBC #### [facility] [address] [address] [address] Michele Obrien LDL CALC NORMAL SEE BELOW Normal [facility] Comment on above: Result Comment: <100 mg/dl OPTIMAL 100 - 129 mg/dl NEAR OR ABOVE OPTIMAL 130 - 159 mg/dl BORDERLINE HIGH 160 - 189 mg/dl HIGH >190 mg/dl VERY HIGH Performed By: #### F ERR, FETIBC #### [facility] [address] [address] [address] Michele Obrien Triglyceride [Mass/Vol] 106 mg/dL Normal <=150 [facility] Comment on above: Performed By: #### F ERR, FETIBC #### [facility] [address] [address] [address] Michele Obrien VLDL CALC 21.2 mg/dL Normal [facility] Comment on above: Performed By: #### F ERR, FETIBC #### [facility] [address] [address] [address] Michele Obrien PROF 14(COMP METB)on 023 Albumin [Mass/Vol] 3.5 g/dL Normal 3.4-5.0 [facility] Comment on above: Performed By: #### F ERR, FETIBC #### [facility] [address] [address] [address] Michele Obrien Albumin/Globulin [Mass ratio] 1.2 {ratio} Normal [facility] Comment on above: Performed By: #### F ERR, FETIBC #### [facility] [address] [address] [address] Michele Obrien ALP [Catalytic activity/Vol] 76 U/L Normal 46-116 [facility] Comment on above: Performed By: #### F ERR, FETIBC #### [facility] [address] [address] [address] Michele Obrien ALT [Catalytic activity/Vol] 16 U/L Normal 14-59 [facility] Comment on above: Performed By: #### F ERR, FETIBC #### [facility] [address] [address] [address] Michele Obrien Anion gap [Moles/Vol] 10.0 mmol/L Normal [facility] Comment on above: Performed By: #### F ERR, FETIBC #### [facility] [address] [address] [address] Michele Obrien AST [Catalytic activity/Vol] 16 U/L Normal 15-37 [facility] Comment on above: Performed By: #### F ERR, FETIBC #### [facility] [address] [place] [address] Dr. Michele Obrien Bilirubin [Mass/Vol] 0.3 mg/dL Normal 0.2-1.0 [facility] Comment on above: Performed By: #### F ERR, FETIBC #### [facility] [address] [address] [address] Michele Obrien Calcium [Mass/Vol] 8.5 mg/dL Normal 8.5-10.1 [facility] Comment on above: Performed By: #### F ERR, FETIBC #### [facility] [address] [address] [address] Michele Obrien Chloride [Moles/Vol] 106 mmol/L Normal 98-107 [facility] Comment on above: Performed By: #### F ERR, FETIBC #### [facility] [address] [address] [address] Michele Obrien CO2 [Moles/Vol] 30.8 mmol/L Normal 21.0-32.0 [facility] Comment on above: Performed By: #### F ERR, FETIBC #### [facility] [address] [address] [address] Michele Obrien Creatinine [Mass/Vol] 0.68 mg/dL Normal 0.55-1.02 [facility] Comment on above: Performed By: #### F ERR, FETIBC #### [facility] [address] [address] [address] Michele Obrien EGFR-AF ZAMBIAN >60 Normal >=60 [facility] Comment on above: Performed By: #### F ERR, FETIBC #### [facility] [address] [address] [address] Michele Obrien EGFR-NON AF ZAMBIAN >60 Normal >=60 [facility] Comment on above: Performed By: #### F ERR, FETIBC #### [facility] [address] [address] [address] Michele Obrien Globulin (S) [Mass/Vol] 2.8 g/dL Normal [facility] Comment on above: Performed By: #### F ERR, FETIBC #### [facility] [address] [address] [address] Michele Obrien Glucose [Mass/Vol] 77 mg/dL Normal 74-106 [facility] Comment on above: Performed By: #### F ERR, FETIBC #### [facility] [address] [address] [address] Michele Obrien Potassium [Moles/Vol] 3.8 mmol/L Normal 3.5-5.1 [facility] Comment on above: Performed By: #### F ERR, FETIBC #### [facility] [address] [address] [address] Michele Obrien Protein [Mass/Vol] 6.3 g/dL Critically low 6.4-8.2 [facility] Comment on above: Performed By: #### F ERR, FETIBC #### [facility] [address] [address] [address] Michele Obrien Sodium [Moles/Vol] 143 mmol/L Normal 136-145 [facility] Comment on above: Performed By: #### F ERR, FETIBC #### [facility] [address] [address] [address] Michele Obrien Urea nitrogen [Mass/Vol] 10.0 mg/dL Normal 7.0-18.0 [facility] Comment on above: Performed By: #### F ERR, FETIBC #### [facility] [address] [place] [address] Dr. Michele Obrien Urea nitrogen/Creatinine [Mass ratio] 14.7 mg/mg Normal [facility] Comment on above: Performed By: #### F ERR, FETIBC #### [facility] [address] [place] [address] Dr. Michele Obrien TSHon 08-20-2022 TSH 4.302 uIU/mL Critically high 0.358-3.740 [facility] Comment on above: Performed By: #### F ERR, FETIBC #### [facility] [address] [place] [address] Dr. Michele Obrien VIT B12 AND FOLATEon 023 Cobalamin (Vitamin B12) [Mass/Vol] 433.0 pg/mL Normal 193.0-986.0 [facility] Comment on above: Performed By: #### B 12FOL, VITAD #### [facility] [address] [place] [address] Dr. Michele Obrien FOLATE 18.00 ng/mL Normal 8.60-58.90 [facility] Comment on above: Performed By: #### B 12FOL, VITAD #### [facility] [address] [place] [address] Dr. Michele Obrien VITAMIN D 25 OHon 08-20-2022 VIT D 25-OH 33.4 ng/mL Normal [facility] Comment on above: Performed By: #### B 12FOL, VITAD #### [facility] [address] [place] [address] Dr. Michele Obrien VIT D RANGES SEE BELOW Normal [facility] Comment on above: Result Comment: <20 ng/mL Vit D deficient 20 - <30 ng/mL Vit D insufficient 30 - 100 ng/mL Vit D sufficient >100 ng/mL Potential Toxicity Performed By: #### B 12FOL, VITAD #### [facility] [address] [place] [address] Dr. Michele Obrien Vital Signs Date Time Vital Sign Value Performing Clinician Facility 05-19-2023 15:30-0400 Body weight 128.05 kg Denys Landa Other [facility] [employer] Other 05-19-2023 15:30-0400 Diastolic blood pressure 86 mm[Hg] Denys Landa Other [email or web address] Other 05-19-2023 15:30-0400 Systolic blood pressure 127 mm[Hg] Denys Landa Other [facility] [employer] Other 03-15-2023 10:48-0400 Diastolic blood pressure 80 mm[Hg] [employer]BC Wilber Shammo Work Phone: [facility] 03-15-2023 10:48-0400 Heart rate 63 /min [employer]NALY[employer]-BC Wilber Shammo Work Phone: [facility] 03-15-2023 10:48-0400 Respiratory rate 16 /min [employer]BC Wilber Shammo Work Phone: [facility] 03-15-2023 10:48-0400 SaO2% (BldA) [Mass fraction] 99 % [employer]NALY[employer]-BC Wilber Shammo Work Phone: [facility] 03-15-2023 10:48-0400 Systolic blood pressure 126 mm[Hg] [employer] ANALYST-BC Wibler Shammo Work Phone: [facility] 03-15-2023 08:43-0400 Body height 180.34 cm [employer] ANALYST-BC Wilber Shammo Work Phone: [facility] 03-15-2023 08:43-0400 Body temperature 98.2 [degF] [employer] ANALY[employer]-BC Wilber Shammo Work Phone: [facility] 03-15-2023 08:43-0400 Body weight 129.27 kg [employer] ANALYST-BC Wilber Shammo Work Phone: [facility] 01-17-2023 10:00-0400 Body weight 127.01 kg Denys Landa Other [email or web address] Other 01-17-2023 10:00-0400 Diastolic blood pressure 85 mm[Hg] Denys Landa Other [email or web address] Other 01-17-2023 10:00-0400 Systolic blood pressure 125 mm[Hg] Denys Landa Other [email or web address] Other Encounters Encounter Date Encounter Type Care Provider Facility Start: 06-13-2023 End: 06-13-2023 ambulatory YOAN PARIS Not Available Start: 05-19-2023 End: 05-19-2023 ambulatory Denys Landa Other [email or web address] Other Start: 05-19-2023 Office outpatient visit 15 minutes Denys Landa [facility] Start: 03-15-2023 End: 03-15-2023 ambulatory Denys Landa Facility:[facility] Start: 03-15-2023 End: 03-15-2023 Admission to same day surgery center [facility] Wilber Shammo Work Phone: [facility] Work Phone: Start: 03-15-2023 End: 03-15-2023 ambulatory [facility] Wilber T Shammo Work Phone: [facility] Work Phone: Start: 01-26-2023 End: 01-27-2023 ambulatory WILBER SHAMMO Facility:[facility] Start: 01-26-2023 End: 01-27-2023 ambulatory Alyson Chiu Facility:[facility] Start: 01-26-2023 End: 01-26-2023 Lab Drop off Alyson Chiu [facility] Start: 01-26-2023 End: 01-26-2023 Patient encounter procedure Alyson MRogelio Chiu [facility] Start: 01-20-2023 ambulatory WILBER SHAMMO Facility:[facility] Start: 01-17-2023 End: 01-17-2023 ambulatory Denys Landa Other [facility] [employer] Other Start: 01-17-2023 Office outpatient ne w 45 minutes Denys Landa [facility] Start: 12-28-2022 End: 12-28-2022 ambulatory LUKE BOWENS . Facility:[facility] Start: 10-16-2022 End: 10-17-2022 ambulatory WILBER SHAMMO Facility:[facility] Start: 08-25-2022 Encounter for genera l adult medical examination without abnormal [facility] Start: 08-20-2022 End: 08-21-2022 ambulatory WILBER SHAMMO Facility:[facility] Start: 08-20-2022 End: 08-21-2022 Encounter for general adult medical examination without abnormal findings WILBER SHAMMO Facility:[facility] Procedures Date Procedure Procedure Detail Performing Clinician Start: 03-15-2023 Esophagogastroduodenoscopy [employer] ANALYST- Wilber More Work Phone: Start: 08-01-2016 Appendectomy Alyson Aram Start: 08-01-2016 Gastric sleeve Alyson Sharlene e Start: 08-01-2005 Cholecystectomy Alyson L ue Arthroplasty of knee Alyson L ue Comment on above: Meniscus repair section Alyson Chiu Comment on above: x2 Plan of Treatment Date Care Activity Detail Author Start: 08-03-2023 ambulatory Ambulatory Facility:[facility] Start: 03-15-2023 [facility] Patient Education Hiatal hernia Diverticulosis [facility] Work Phone: Immunizations Immunization Date Immunization Notes Care Provider Alice juanvan 06-01-2022 influenza virus vaccine, unspecified formulation Alyson Chiu [facility] Payers Date Payer Category Payer Self-pay 2022 [employer] others) [id number] 2022 [employer] ( [employer] others) [id number] 1985 Unknown [id number] 1986 Unknown [id number] 1986 Unknown [id number] 1986 Unknown [id number] 1986 Unknown [id number] 1986 Unknown [id number] 1986 Unknown [id number] 1959 [employer] ( and others) [id number] Unknown [id number] Social History Date Type Detail Facility Sex Assigned At [facility] Start: 01-26-2023 Tobacco smoking status Ex-smoker (fi nding) [facility] Start: 03-15-2023 Tobacco smoking stat us PRIS Smoker (finding) [facility] Start: 1985 Sex Assigned At Female F [facility] Goals Date Patient Goal Desired Activity /State Functional Status Date Assessment Result Facility 01-26-2023 Functional Status No [facility] Clinical Notes 01-17-2023 to 05-19-2023 Note Date & Type Note Facility 05-19-2023 Evaluation note Encounter Date Diagnosis Assessment Notes May, Hiatal hernia (ICD-10 - K44.9) Patient is currently taking omeprzole May, 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 Your risk of developing kidney stones may be greater depending on your diet, your lifestyle, the medicines you take, and whether you have certain medical conditions. Most people can lower their chances of developing kidney stones by following the instructions below. Your dietitian may give you more specific instructions depending on your overall health and the type of kidney stones you tend to develop. What are tips for following this plan? Reading food labels Choose foods with no salt added or low-salt labels. Limit your salt (sodium) intake to less than 1,500 mg a day. Choose foods with calcium for each meal and snack. Try to eat about 300 mg of calcium at each meal.Foods that contain 200 500 mg of calcium a serving include: ?8 oz (237 mL) of milk, oqdabnn-wdydxbipowcj-hmtbr milk, and calcium- fortifiedfruit juice. Calcium-fortified means that calcium has been added to these drinks. ?8 oz (237 mL) of kefir, yogurt, and soy yogurt. ?4 oz (114 g) of tofu. ?1 oz (28 g) of cheese. ?1 cup (150 g) of dried figs. ?1 cup (91 g) of cooked broccoli. ?One 3 oz (85 g) can of sardines or mackerel. Most people need 1,000 1,500 mg of calcium a day. Talk to your dietitian about how much calcium is recommended for you. Shopping Buy plenty of fresh fruits and vegetables. Most people do not need to avoid fruits and vegetables, even if these foods contain nutrients that may contribute to kidney stones. When shopping for convenience foods, choose: ?Whole pieces of fruit. ?Pre-made salads with dressing on the side. ?Low-fat fruit and yogurt smoothies. Avoid buying frozen meals or prepared deli foods. These can be high in sodium. Look for foods with live cultures, such as yogurt and kefir. Choose high-fiber grains, such as whole-wheat breads, oat bran, and wheat cereals. Cooking Do not add salt to food when cooking. Place a salt shaker on the table and allow each person to addhis or her own salt to taste. Use vegetable protein, such as beans, textured vegetable protein (TVP), or tofu, instead of meat inpasta, casseroles, and soups. Meal planning Eat less salt, if told by your dietitian. To do this: ?Avoid eating processed or pre-made food. ?Avoid eating fast food. Eat less animal protein, including cheese, meat, poultry, or fish, if told by your dietitian. To dothis: ?Limit the number of times you have meat, poultry, fish, or cheese each week. Eat a diet free of meat at least 2 days a week. ?Eat only one serving each day of meat, poultry, fish, or seafood. ?When you prepare animal protein, cut pieces into small portion sizes. For most meat and fish, one serving is about the size of the palm of your hand. Eat at least five servings of fresh fruits and vegetables each day. To do this: ?Keep fruits and vegetables on hand for snacks. ?Eat one piece of fruit or a handful of berries with breakfast. ?Have a salad and fruit at lunch. ?Have two kinds of vegetables at dinner. Limit foods that are high in a substance called oxalate. These include: ?Spinach (cooked), rhubarb, beets, sweet potatoes, and Israeli chard. ?Peanuts. ?Potato chips, macedonian fries, and baked potatoes with skin on. ?Nuts and nut products. ?Chocolate. If you regularly take a diuretic medicine, make sure to eat at least 1 or 2 servings of fruits or vegetables that are high in potassium each day. These include: ?Avocado. ?Banana. ?Garrard, prune, carrot, or tomato juice. ?Baked potato. ?Cabbage. ?Beans and split peas. Lifestyle Drink enough fluid to keep your urine pale yellow. This is the most important thing you can do. Spread your fluid intake throughout the day. If you drink alcohol: ?Limit how much you use to: ?0 1 drink a day for women who are not . ?0 2 drinks a day for men. ?Be aware of how much alcohol is in your drink. In the [place] one drink equals one 12 oz bottle of beer (355 mL), one 5 oz glass of wine (148 mL), or one 1 oz glass of hard liquor (44 mL). Lose weight if told by your health care provider. Work with your dietitian to find an eating plan and weight loss strategies that work best for you. General information Talk to your health care provider and dietitian about taking daily supplements. You may be told thefollowing depending on your health and the cause of your kidney stones: ?Not to take supplements with vitamin C. ?To take a calcium supplement. ?To take a daily probiotic supplement. ?To take other supplements such as magnesium, fish oil, or vitamin B6. Take [id number]-[id number] and prescription medicines only as told by your health care provider. These include supplements. What foods should I limit? Limit your intake of the following foods, or eat them as told by your dietitian. Vegetables Spinach. Rhubarb. Beets. Canned vegetables. Pickles. Olives. Baked potatoes with skin. Grains Wheat bran. Baked goods. Salted crackers. Cereals high in sugar. Meats and other proteins Nuts. Nut butters. Large portions of meat, poultry, or fish. Salted, precooked, or cured meats, such as sausages, meat loaves, and hot dogs. Dairy Cheese. Beverages Regular soft drinks. Regular vegetable juice. Seasonings and condiments Seasoning blends with salt. Salad dressings. Soy sauce. Ketchup. Barbecue sauce. Other foods Canned soups. Canned pasta sauce. Casseroles. Pizza. Lasagna. Frozen meals. Potato chips. Spanish fries. The items listed above may not be a complete list of foods and beverages you should limit. Contact a dietitian for more information. What foods should I avoid? Talk to your dietitian about specific foods you should avoid based on the type of kidney stones youhave and your overall health. Fruits Grapefruit. The item listed above may not be a complete list of foods and beverages you should avoid. Contact adietitian for more information. Summary Kidney stones are deposits of minerals and salts that form inside your kidneys. You can lower your risk of kidney stones by making changes to your diet. The most important thing you can do is drink enough fluid. Drink enough fluid to keep your urine pale yellow. Talk to your dietitian about how much calcium you should have each day, and eat less salt and animal protein as told by your dietitian. This information is not intended to replace advice given to you by your health care provider. Make sure you discuss any questions you have with your health care provider. Document Revised: 03/29/2022 Document Reviewed: 03/29/2022 [employer] Patient Education 2022 [employer] Follow Up Care 12/28/2022 12:57:40 With:Aram RUSSELL, Alyson Burdick, URL, URO Address: When:Within 6 Month(s) Comments:w/ DEYA & YAMILETH [facility] 06-19-2023 Evaluation note* Encounter Date Diagnosis Assessment Notes Treatment Notes Treatment Clinical Notes Dec, Iron deficiency anemia (ICD-10 - D50.9) Will proceed with EGD Will request recent lab work done at [place]. Dec, GERD (gastroesophageal reflux disease) (ICD-10 - K21.9) Patient to continue on Omeprazole 40mg Dec, Diarrhea (ICD-10 - R19.7) Will proceed with Colonoscopy. [facility] Other Evaluation + Plan note Future Appointments Appointment Date:08/03/2023 10:00:00 AM Scheduled Provider:Alyson Chiu MD Location:[facility] Appointment Type:URO Office Visit [facility] evaluation + Plan note Future Appointments Appointment Date:08/03/2023 10:00:00 AM Scheduled Provider:Alyson Chiu MD Location:[facility] Appointment Type:URO Office Visit Diagnostic Tests Pending * Calculi [facility] Onset Date Resolution Status Iron deficiency anemia [facility] Work Phone: Hishfyy general Narrative - Reported* Type Description Date Medical History Esophageal reflux Medical History anxiety Medical History chronic depression Medical History high blood pressure Medical History low thyroid Medical History menieres disease Medical History kidney stones Medical History iron deficiency anemia Surgical History C section Surgical History gastric sleeve Surgical History cholecystectomy Surgical History appendectomy Surgical History left knee meniscus Hospitalization History see above [facility] Other Hospital course Narrative No data available for this section [facility] Hospital Discharge instructions No data available for this section [facility] Discharge instructions Additional Instructions DISCHARGE INSTRUCTIONS FOR ENDOSCOPY FOR COLONOSCOPY: -Expect a gassy or full feeling after a colonoscopy. Report any NEW abdominal pain or vomiting. -You may have oozing, but notify the doctor if you pass clots. FOR GONZALEZ/EGD/ERCP/PEG: -Your throat may feel sore today from the scope that the doctor passed through your throat to visualize your stomach. Take a throat lozenge or suck on ice to ease the discomfort. -Do NOT smoke. -You may notice some streaks of blood in your sputum if the doctor has taken a biopsy. Notify the doctor if you cough up large amounts of blood. -Expect a gassy or full feeling after esophagoscopy. Report any persistent pain or vomiting. -Take it easy today. You need not stay in bed, but avoid strenuous activities such as jogging. FOR SEDATION FOR 24 HOURS: -NO driving -Do NOT operate machinery such as power tools, lawn mowers, snow blowers, sewing machines, etc. -Avoid alcoholic beverages and drugs for allergies, nerves, or sleep. -Do NOT stay alone. Do NOT leave your child unattended. -Do NOT make important personal or business decisions or sign any legal documents. -Eat solid foods and drink liquids in smaller amounts than usual until normal appetite returns. If you should experience an upset stomach, liquids high in sugar content (soda, Juan Pablo-aid, non-acid juices) are recommended. -You can resume normal activities tomorrow. FOLLOW UP Please call the office and make a follow up appointment to see me in 6-8 weeks. Repeat colonoscopy in 10 years -Notify the doctor if you have any problems. -[phone] Work Phone: Progress note No data available for this section [facility] Summary Purpose Family History No Family History Records Found Relationship Condition Age at Onset Recorded Date/T jose j Not Specified Hypertension Unknown Diabetes mellitus Unknown Anxiety and depression Unknown father Myocardial infarction Unknown grandparent Crohn's disease Unknown grandparent Diabetes mellitus Unknown Advance Directives No Advanced Directives Records FoundNo Advanced Directives Records FoundNo Advanced Directives Records FoundNo Advanced Directives Records Found Chief Complaint and Reason for Visit Chief Complaint GERD,LARISSA, Diarrhea Reason for Visit Iron deficiency anem ia Additional Source Comments INFORMATION SOURCE (unrecogn ized section and content) DATE CREATED AUTHOR 01/07/2023 [facility] DATE CREATED AUTHOR AUTHOR'S ORGANIZ ATION 03/17/2023 [facility] DATE CREATED AUTHOR AUTHOR'S ORGANIZ ATION 06/14/2023 [facility] DATE CREATED AUTHOR AUTHOR'S ORGANIZ ATION 07/13/2023 [facility] REASON FOR VISIT (unrecogniz ed section and content) Patient here at the request of Wilber More NP for iron deficiency and gerdPatient here for 6-8 week follow up EGD/colonoscopy Patient Care team informatio n (unrecognized section and content) Team Status: Active Member Role Status Dates FORTINO Villar Primary Care Provider Active Team Status: Inactive Member Role Status Dates Denys Landa MD Attending Provider Active FORTINO Villar Primary Care Provider Active FOR RECORDS PERTAINING TO PATIENTS WHO ARE OR HAVE BEEN ENROLLED IN A CHEMICAL DEPENDENCY/SUBSTANCEABUSE PROGRAM, SOME INFORMATION MAY BE OMITTED. This clinical summary was aggregated from multiple sources. Caution should be exercised in using it in the provision of clinical care. This summary normalizes information from multiple sources, and as a consequence, information in this document may materially change the coding, format and clinical context of patient data. In addition, data may be omitted in some cases. CLINICAL DECISIONS SHOULD BE BASED ON THE PRIMARY CLINICAL RECORDS. [facility] provides no warranty or guarantee of the accuracy or completeness of information in this document.
[2023-07-29 12:08] LABS: Age Gdln ACOG Testing Note (.); HPV Aptima Negative (Negative); IGP, Aptima HPV, rfx 16/18,45 Note (.)
== END 2023-07-21 21:05 | disposition home or self-care (01) ==
LOC: LAB 21:04
PROVIDERS: PCP Nurse Practitioner Primary Care; Visit Provider Physician Assistant
DX: Z01.419 Encounter for gynecological examination (general) (routine) without abnormal findings (principal)
CPT/HCPCS: 87624; G0145

== ENCOUNTER 2023-08-18 11:00 | Outpatient (OUT) | payer OTHER, SELFPAY ==
--- NOTE | 2023-08-18 11:06 | US_ITS ---
[address] [address] Patient Name: TIFFANI GROSSMAN MRN: [id number] date: 1985 Sex: F Assigned Patient Location: US Current Patient Location: Accession/Order Number: [id number] Exam Date: 08/18/2023 11:06 Report Date: 08/18/2023 12:45 At the request of: YOAN TOLEDO Procedure: US OB cervical length EXAMINATION: US OB anatomy, US OB cervical length HISTORY: ANATOMY COMPARISON: No relevant comparison available. TECHNIQUE: Transabdominal sonographic examination was performed for obstetrical and evaluation. FINDINGS: Number: 1 Heart Rate: 157.0 bpm H.B. /min Amniotic Fluid Volume: Subjectively normal Placental Location: Posterior. Placental edge 5.1 cm from the internal cervical os position: Cephalic Cervix Length: 5.4 cm, closed Normal anatomy: Lateral ventricles, cerebellum, posterior fossa, nose, lips, orbits, four-chamber heart, diaphragm, stomach, kidneys, abdominal cord insertion, bladder, umbilical arteries, spine, extremities Suboptimal visualization: RVOT, LVOT Nonvisualization: Three-vessel cord BIOMETRY: BPD: 4.9 cm 20 weeks 6 days , 67% HC: 18.7 cm 21 weeks 0 days, 70% AC: 15.1 cm 20 weeks 2 days, 40% FL: 3.4 cm 20 weeks 4 days, 48% EFW:359.5 grams; 13 ounces, 51% FL/AC: 22.4 FL/BPD: 68.8 HC/AC: 1.2 GESTATIONAL AGE: Age by EDC: 20 weeks 3 days Age by current US: 20 weeks 5 days ELPIDIO by current US: 12/31/2023 ELPIDIO by EDC: 01/02/2024 US/US OB cervical length IMPRESSION: Suboptimal visualization of the ventricular outflow tracts Nonvisualization three-vessel cord Otherwise normal anatomy scan Closed cervix measuring 5.4 cm *Reference: [employer] Practice Guideline for the performance of Obstetric Ultrasound Examinations, May 01, 2007. Electronically authenticated by: PEDRO FIGUEREDO Date: 08/18/2023 12:45
--- NOTE | 2023-08-18 11:06 | US_ITS ---
[address] [address] Patient Name: TIFFANI GROSSMAN MRN: [id number] date: 1985 Sex: F Assigned Patient Location: US Current Patient Location: US Accession/Order Number: [id number] Exam Date: 08/18/2023 11:06 Report Date: 08/18/2023 12:45 At the request of: YOAN TOLEDO Procedure: US OB anatomy EXAMINATION: US OB anatomy, US OB cervical length HISTORY: ANATOMY COMPARISON: No relevant comparison available. TECHNIQUE: Transabdominal sonographic examination was performed for obstetrical and evaluation. FINDINGS: Number: 1 Heart Rate: 157.0 bpm H.B. /min Amniotic Fluid Volume: Subjectively normal Placental Location: Posterior. Placental edge 5.1 cm from the internal cervical os position: Cephalic Cervix Length: 5.4 cm, closed Normal anatomy: Lateral ventricles, cerebellum, posterior fossa, nose, lips, orbits, four-chamber heart, diaphragm, stomach, kidneys, abdominal cord insertion, bladder, umbilical arteries, spine, extremities Suboptimal visualization: RVOT, LVOT Nonvisualization: Three-vessel cord BIOMETRY: BPD: 4.9 cm 20 weeks 6 days , 67% HC: 18.7 cm 21 weeks 0 days, 70% AC: 15.1 cm 20 weeks 2 days, 40% FL: 3.4 cm 20 weeks 4 days, 48% EFW:359.5 grams; 13 ounces, 51% FL/AC: 22.4 FL/BPD: 68.8 HC/AC: 1.2 GESTATIONAL AGE: Age by EDC: 20 weeks 3 days Age by current US: 20 weeks 5 days ELPIDIO by current US: 12/31/2023 ELPIDIO by EDC: 01/02/2024 US/US OB anatomy IMPRESSION: Suboptimal visualization of the ventricular outflow tracts Nonvisualization three-vessel cord Otherwise normal anatomy scan Closed cervix measuring 5.4 cm *Reference: [employer] Practice Guideline for the performance of Obstetric Ultrasound Examinations, May 01, 2007. Electronically authenticated by: PEDRO FIGUEREDO Date: 08/18/2023 12:45
--- OUTSIDE RECORDS SUMMARY | 2023-08-18 11:24 | XMS_ITS | CCD ---
Author Name Unknown Address [address] [place] [address] Organization [facility] Care Team Providers Care Correctional Probation Officer Name Role Phone KWAN ., LUKE Admitting Unavailable KWAN ., LUKE Attending Unavailable JOSIE Mercado, DR ROBERTO Consulting Unavailable SHAMMO, WILBER Primary Care Unavailable LUWilber .ALYSON Consulting Unavailable LINDA LOMBARDO Consulting Unavailable YANELYKINALEXA Consulting Unavailable KWAN ., LUKE Consulting Unavailable SHAMMO, WILBER Attending Unavailable SHAMMO, WILBER Admitting Unavailable SHAMMO, WILBER Consulting Unavailable SHAMMO, WILBER Attending Unavailable SHAMMO, WILBER Admitting Unavailable SHAMMO, WILBER Primary Care Unavailable SHAMMO, WILBER Consulting Unavailable Denys Landa Unavailable SHAMMO, WILBER TOMASA Primary Care Physician MD Denys Landa Attending Provider [phone] Shammo, [facility] Wilber T Primary Care Provider [phone] Denys Landa Attending Unavailabl e Denys Landa Admitting Unavailabl e Shammo, Wilber T Primary Care Unavailable YOAN TOLEDO Attending Unavailable WINSTON LINARES Attending Unavailable SHAMMO, WILBER Primary Care Unavailable Alyson Chiu Attending Unavailable Alyson Chiu Attending Unavailable SHAMMO, WILBER Primary Care Unavailable SHAMMO, WILBER Primary Care Unavailable Alyson Chiu Admitting Unavailable Alyson Chiu Attending Unavailable Allergies Allergy Classification Reported Allergen(s) Allergy Type Date of Onset Reaction(s) Facility (3 sources) Penicillin Drug Allergy 3 Unknown [facility] Repository (5 sources) Penicillins; Translations: [penicillins] Allergy to substance 3 Anaphylaxis (disorder) [facility] Tariq Medications Current Medications Medication Drug Class(es) Dates [...] 12:00am Start: 01-26-2023 take 1 capsule by [facility] once daily levothyroxine 137 mcg (0.137 [...] 01/26/23 Status: Ordered take 1 tablet by [facility] every twelve hours Meclizine HCl 25 MG [...] 01/26/23 Status: Ordered take 1 capsule by [facility] once daily Metoprolol Succinate 100 MG [...] Name Value Interpretation Reference Range Facility Reminderson 08-05-2023 Reminders - From: Ewa Valentin To: EU - Recalls Aram; Sent: 01/26/2023 10:51:29 EDT Show up: 06/28/2023 09:51:00 EST Subject: Reminder Message Due Date/Time: 07/28/2023 09:51:00 EST Call pt to schedule a KUB and YAMILETH Called pt and left VM to return our call - From: Ana Sherwood (EU - Recallteodoro Chiu) To: Alyson Chiu MD; Sent: 07/11/2023 13:04:24 EST Show up: 07/11/2023 13:03:00 EST Subject: RE: Reminder Message Called pt and she states that she is 15 weeks and was wondering if imaging is still safe. Please advise. - From: Alyson Chiu MD To: EU - Recallteodoro Chiu; Sent: 07/11/2023 18:00:02 EST Show up: 07/11/2023 18:00:00 EST Subject: RE: Reminder Message renal US is safe, can hold off on KUB Called pt and left VM to return our call. Pt needs advised YAMILETH is safe during and YAMILETH needs ordered and faxed to pt location request. no KUB needed Spoke to pt. At this time she wishes to cancel appt. Will call in future with any problems. - From: Ana Sherwood (EU - Recalls Aram) To: Alyson Chiu MD; Sent: 08/04/2023 11:10:53 EST Show up: 08/04/2023 11:10:00 EST Subject: RE: Reminder Message Does pt need tracked? - From: Alyson Chiu MD To: EU - Recalls Aram; Sent: 08/05/2023 09:02:01 EST Show up: 08/05/2023 09:01:00 EST Subject: RE: Reminder Message No Normal [facility] HCG ( test) IA.dimitrios d Ql (U)Ordered By: Denys Landa on 03-15-2023 HCG ( test) Ql (U) Negative [facility] HCG,Urineon 03-15-2023 Beta HCG ( test) Ql (U) Negative Normal [facility] Comment on above: Result Comment: PERF ORMED BY: [place] [address] PATHOLOGIST PHYS THERAPIST SALVADOR LEHMAN M.D. Performed By: #### U HCG #### [address] Arturo 03-15-2023 L Specimen: [id number] Received: 03/15/23 Status: KENISHA Montes De Oca Num: [id number] Spec Type: Surgical Subm Dr: Denys Landa MD Tissues: A Duodenum - Biopsy (DUODENAL BX) B STOMACH FOR HP (ANTRAL BX HP) C Esophagus Biopsy (ESOPHAGUS BX) Procedures: HE/6, Gross/Micro L4/3, H PYLORI Age/ Patient Sex Location Account Attending Physician Lisa Allison 37/F [id number] Denys Landa MD SPEC NUM: [id number] RECD: 03/15/23 STATUS: KENISHA MONTES DE OCA NUM: [id number] RODERCIK: 03/15/23- SUBM DR: Denys Landa MD ENTERED: 03/15/23 [facility] DR: CESAR TYPE: Surgical DEPT: S ORDERED: [...] eosinophilic exocytosis or eosinophilic esophagitis identified Specimen: [id number] Received: 03/15/23 Status: KENISHA Montes De Oca Num: [id number] Spec Type: Surgical Subm Dr: Denys Landa MD Tissues: A Duodenum - Biopsy (DUODENAL BX) B STOMACH FOR HP (ANTRAL BX HP) C Esophagus Biopsy (ESOPHAGUS BX) Procedures: HE/6, Gross/Micro L4/3, H PYLORI Patient: Lisa Allison [id number] (Continued) Specimen: [id number] Received: 03/15/23 (Continued) Signed (signature on file) Bharti Obrien MD 03/16/23 1658 Specimen: [id number] Received: 03/15/23 Status: KENISHA Montes De Oca Num: [id number] Spec Type: Surgical Subm Dr: Denys Landa MD Tissues: A Duodenum - Biopsy (DUODENAL BX) B STOMACH FOR HP (ANTRAL BX HP) C Esophagus Biopsy (ESOPHAGUS BX) Procedures: HE/6, Gross/Micro L4/3, H PYLORI Patient: Lisa Allison [id number] (Continued) Specimen: [id number] Received: 03/15/23 (Continued) Clinical Information LARISSA, rule out sprue, [...] microscopic examination confirms the diagnosis. CPT Codes [id number], 70788 -- (more content not included)... [facility] Calculus Analysison 02-06-20 23 Calcium oxalate dihydrate Infrared spectroscopy (Stone) [Mass fraction] 30 % Invalid Interpretation Code [facility] Comment on above: Performed By: #### 1 [id number] #### [facility] [address] [place] [address] Calcium oxalate monohydrate (Stone) [Mass fraction] 70 % Invalid Interpretation Code [facility] Comment on above: Performed By: #### 1 [id number] #### [facility] [address] [place] [address] Color (Stone) Brown Invalid Interpretation Code [facility] Comment on above: Performed By: #### 1 [id number] #### [facility] [address] [place] [address] Composition Comment Invalid Interpretation Code [facility] Comment on above: Result Comment: Perc entage (Represents the % composition) Performed By: #### 1 [id number] #### [facility] [address] [place] [address] Disclaimer: Comment Invalid Interpretation Code [facility] Comment on above: Result Comment: This test was developed and its performance characteristics determined by [employer]. It has not been cleared or approved by the Food and Drug Administration. Performed at: [facility] [address] [place] [address] [id number] PhD Roya Prajapati Performed By: #### 1 [id number] #### [facility] [address] [place] [address] Laboratory comment Asa (Report) Comment Invalid Interpretation Code [facility] Comment on above: Result Comment: Brad tafoya questions regarding Calculi Analysis contact [employer] at: [phone]. Performed By: #### 1 [id number] #### [facility] [address] [place] [address] Please Note: Comment Invalid Interpretation Code [facility] Comment on above: Result Comment: Calc dory report will follow via computer, mail or customer resource specialist delivery. Performed By: #### 1 [id number] #### [facility] [address] [place] [address] Size (Stone) [Entitic vol] 3x3 Invalid Interpretation Code [facility] Comment on above: Result Comment: Mult iple pieces received. Dimensions of the largest piece reported. Performed By: #### 1 [id number] #### [facility] [address] [place] [address] Specimen source subject Nom Comment Invalid Interpretation Code [facility] Comment on above: Result Comment: Not provided Performed By: #### 1 [id number] #### [facility] [address] [place] [address] Stone Photo Comment Invalid Interpretation Code [facility] Comment on above: Result Comment: Phot ograph will follow under a separate cover Performed By: #### 1 [id number] #### [facility] [address] [place] [address] Weight (Stone) 8 mg Invalid Interpretation Code [facility] Comment on above: Performed By: #### 1 [id number] #### [facility] [address] [place] [address] Formson 01-26-2023 Forms [id number] #1.00CD:127 Normal [facility] Patient Educationon 01-27-20 23 Patient Education Nephrology [...] Spinach (cooked), rhubarb, beets, sweet potatoes, and Lao chard. ? Peanuts. ? Potato chips, cambodian fries, and baked potatoes with skin on. ? Nuts and nut products. ? Chocolate. ? If you regularly take a diuretic medicine, make sure to eat at least 1 or 2 servings of fruits or vegetables that are high in potassium each day. These include: ? Avocado. ? Banana. ? [place], prune, carrot, or tomato juice. ? Baked [...] fish oil, or vitamin B6. ? Take ltuh-yav-godgvzn and prescription medicines only as told by your health care provider. These include supplements. What foods should I limit? Limit your in (more content not included)... Normal [facility] RAD - MISCon 01-26-2023 [facility] - MIS [id number] #1.00CD:127 Normal [facility] Screenson 01-26-2023 Screens [id number] #1.00CD:127 [facility] Urology Office/Clinic Noteon 01-26-2023 Urology Office/Clinic Note Chief Complaint kidney stones HPI Staff Pt is a new pt, never before seen in our office. Here today due to kidney stones. [place] 12/27/22 due to Rt flank pain [...] for this patient from Dr. Herron @ [facility]. I have reviewed and verified the staff [...] pain currently. Pt had gastric bypass in 2016 in [place]. Has had diarrhea since she had her [...] GI -Follow up in 6 mos with KUOlu and YAMIELTH. If stones recur, will re-recommend metabolic workup [...] With When Contact Information Aram RUSSELL, Alyson Burdick, URL, URO In 6 months Additional Instructions: [...] 09:53:00) Nitrite Uri (more content not included)... Normal [facility] Comment on above: Result Comment: Elec tronically Signed By: Alyson Chiu MD\.br\Date and Time Signed: 01/26/23 21:46 EDT\.br\Electronically Co-Signed By: Ewa Valentin\.br\Date and Time Co-Signed: 01/26/23 10:54 EDT ED Note-Physicianon 01-24-20 ED Note-Physician [id number]#1.00CD:127 Normal [facility] Lab Reportson 01-23-2023 Lab Reports [id number]#1.00CD:127 Normal [facility] RAD - CT Reporton 01-23-2023 RAD - CT Report [id number]# 1.00CD:127 Normal [facility] CBC AUTO DIFFon 12-28-2022 BASO # 0.0 103/ul Normal 0.0-0.1 [facility] Comment on above: Performed By: #### F ERR, FETIBC #### [facility] [address] [address] [address] Michele Obrien Basophils/100 WBC (Bld) 0.5 % Normal 0.2-2.0 [facility] Comment on above: Performed By: #### F ERR, FETIBC #### [facility] [address] [address] [address] Michele Obrien EO # 0.2 103/ul Normal 0.0-0.7 [facility] Comment on above: Performed By: #### F ERR, FETIBC #### [facility] [address] [place] [address] Dr. Michele Obrien Eosinophils/100 WBC (Bld) 2.6 % Normal 0.9-7.0 [facility] Comment on above: Performed By: #### F ERR, FETIBC #### [facility] [address] [place] [address] Dr. Michele Obrien Erythrocyte distribution width (RBC) [Ratio] 19.1 % Critically high 11.0-15.0 [facility] Comment on above: Performed By: #### F ERR, FETIBC #### [facility] [address] [place] [address] Dr. Michele Obrien Hematocrit (Bld) [Volume fraction] 37.6 % Normal 36.0-48.0 [facility] Comment on above: Performed By: #### F ERR, FETIBC #### [facility] [address] [place] [address] Dr. Michele Obrien Hemoglobin (Bld) [Mass/Vol] 11.9 g/dL Critically low 12.0-16.0 [facility] Comment on above: Performed By: #### F ERR, FETIBC #### [facility] [address] [place] [address] Dr. Michele Obrien IG # 0.03 10e3/ul Normal 0.00-0.03 [facility] Comment on above: Performed By: #### F ERR, FETIBC #### [facility] [address] [place] [address] Dr. Michele Obrien IG % 0.3 % Normal 0.0-0.5 [facility] Comment on above: Performed By: #### F ERR, FETIBC #### [facility] [address] [place] [address] Dr. Michele Obrien LYMPH # 1.6 103/ul Normal 1.2-3.8 [facility] Comment on above: Performed By: #### F ERR, FETIBC #### [facility] [address] [place] [address] Dr. Michele Obrien Lymphocytes/100 WBC (Bld) 18.4 % Critically low 20.5-60.0 [facility] Comment on above: Performed By: #### F ERR, FETIBC #### [facility] [address] [place] [address] Dr. Michele Obrien MANUAL DIFF REQ NO Normal [facility] Comment on above: Performed By: #### F ERR, FETIBC #### [facility] [address] [place] [address] Dr. Michele Obrien MCH (RBC) [Entitic mass] 23.7 pg Critically low 26.7-34.0 [facility] Comment on above: Performed By: #### F ERR, FETIBC #### [facility] [address] [place] [address] Dr. Michele Obrien MCHC (RBC) [Mass/Vol] 31.6 g/dL Normal 29.9-35.2 [facility] Comment on above: Performed By: #### F ERR, FETIBC #### [facility] [address] [place] [address] Dr. Michele Obrien MCV (RBC) [Entitic vol] 74.9 fL Critically low 81.0-99.0 [facility] Comment on above: Performed By: #### F ERR, FETIBC #### [facility] [address] [place] [address] Dr. Michele Obrien MONO # 0.5 103/ul Normal 0.3-0.8 [facility] Comment on above: Performed By: #### F ERR, FETIBC #### [facility] [address] [place] [address] Dr. Michele Obrien Monocytes/100 WBC (Bld) 5.9 % Normal 1.7-12.0 [facility] Comment on above: Performed By: #### F ERR, FETIBC #### [facility] [address] [place] [address] Dr. Michele Obrien NEUT # 6.4 103/ul Normal 1.4-6.5 [facility] Comment on above: Performed By: #### F ERR, FETIBC #### [facility] [address] [address] [address] Michele Obrien Neutrophils/100 WBC (Bld) 72.3 % Normal 43.0-75.0 [facility] Comment on above: Performed By: #### F ERR, FETIBC #### [facility] [address] [address] [address] Michele Obrien Platelet mean volume (Bld) [Entitic vol] 10.2 fL Normal 9.5-13.5 [facility] Comment on above: Performed By: #### F ERR, FETIBC #### [facility] [address] [address] [address] Michele Obrien PLT 243 103/ul Normal 150-450 [facility] Comment on above: Performed By: #### F ERR, FETIBC #### [facility] [address] [address] [address] Michele Obrien RBC 5.02 106/ul Normal 4.20-5.40 [facility] Comment on above: Performed By: #### F ERR, FETIBC #### [facility] [address] [address] [address] Michele Obrien WBC 8.9 103/ul Normal 4.0-11.0 [facility] Comment on above: Performed By: #### F ERR, FETIBC #### [facility] [address] [place] [address] ABD/PELVIS WO CONon [...] ALEXA WHITE Date: 2022-12-28 02:25 Normal [facility] ER URINE PROFILEon 3 Bilirubin Ql (U) Negative Normal NEGATIVE [facility] Comment on above: Performed By: #### H IV12 #### [facility] [address] [address] [address] Michele Obrien Clarity (U) CLEAR Normal CLEAR [facility] Comment on above: Performed By: #### H IV12 #### [facility] [address] [address] [address] Michele Obrien Color (U) LT. YELLOW Normal YELLOW [facility] Comment on above: Performed By: #### H IV12 #### [facility] [address] [address] [address] Michele Obrien ERUAHFrancisco A micrscopic examination will be performed if indicated. Normal [facility] Comment on above: Performed By: #### H IV12 #### [facility] [address] [address] [address] Michele Obrien Glucose Ql (U) Negative Normal NEGATIVE [facility] Comment on above: Performed By: #### H IV12 #### [facility] [address] [address] [address] Michele Obrien Hemoglobin Ql (U) MODERATE Abnormal NEGATIVE [facility] Comment on above: Performed By: #### H IV12 #### [facility] [address] [address] [address] Michele Obrien Ketones Ql (U) Negative Normal NEGATIVE [facility] Comment on above: Performed By: #### H IV12 #### [facility] [address] [address] [address] Michele Obrien LEUKOCYTES Negative Normal NEGATIVE [facility] Comment on above: Performed By: #### H IV12 #### [facility] [address] [place] [address] Dr. Michele Obrien Nitrite Ql (U) Negative Normal NEGATIVE [facility] Comment on above: Performed By: #### H IV12 #### [facility] [address] [place] [address] Dr. Michele Obrien pH (U) 5.5 [pH] Normal 5-9 [facility] Comment on above: Performed By: #### H IV12 #### [facility] [address] [place] [address] Dr. Michele Obrien SPEC GRAVITY 1.025 Normal 1.005-<=1.025 [facility] Comment on above: Performed By: #### H IV12 #### [facility] [address] [place] [address] Dr. Michele Obrien UA PROTEIN Negative Normal NEGATIVE/ TRACE [facility] Comment on above: Performed By: #### H IV12 #### [facility] [address] [place] [address] Dr. Michele Obrien UR MICRO IND INDICATED Normal [facility] Comment on above: Performed By: #### H IV12 #### [facility] [address] [place] [address] Dr. Michele Obrien Urobilinogen Qn (U) 0.2 {Ijeoma'U}/dL Normal 0.2 - 1. 0 [facility] Comment on above: Performed By: #### H IV12 #### [facility] [address] [place] [address] Dr. Michele Obrien PREG HCG QUALon 12-28-2022 , QUAL Negative Normal NEGATIVE [facility] Comment on above: Performed By: #### P REG #### [facility] [address] [place] [address] Dr. Michele Obrien PROF 14(COMP METB)on 023 Albumin [Mass/Vol] 3.4 g/dL Normal 3.4-5.0 [facility] Comment on above: Performed By: #### C MP #### [facility] [address] [place] [address] Dr. Michele Obrien Albumin/Globulin [Mass ratio] 1.1 {ratio} Normal [facility] Comment on above: Performed By: #### C MP #### [facility] [address] [address] [address] Michele Obrien ALP [Catalytic activity/Vol] 73 U/L Normal 46-116 [facility] Comment on above: Performed By: #### C MP #### [facility] [address] [address] [address] Michele Obrien ALT [Catalytic activity/Vol] 18 U/L Normal 14-59 [facility] Comment on above: Performed By: #### C MP #### [facility] [address] [address] [address] Michele Obrien Anion gap [Moles/Vol] 11.9 mmol/L Normal [facility] Comment on above: Performed By: #### C MP #### [facility] [address] [address] [address] Michele Obrien AST [Catalytic activity/Vol] 13 U/L Critically low 15-37 [facility] Comment on above: Performed By: #### C MP #### [facility] [address] [address] [address] Michele Obrien Bilirubin [Mass/Vol] 0.1 mg/dL Critically low 0.2-1.0 [facility] Comment on above: Performed By: #### C MP #### [facility] [address] [address] [address] Michele Obrien Calcium [Mass/Vol] 8.6 mg/dL Normal 8.5-10.1 [facility] Comment on above: Performed By: #### C MP #### [facility] [address] [address] [address] Michele Obrien Chloride [Moles/Vol] 105 mmol/L Normal 98-107 [facility] Comment on above: Performed By: #### C MP #### [facility] [address] [address] [address] Michele Obrien CO2 [Moles/Vol] 26.7 mmol/L Normal 21.0-32.0 [facility] Comment on above: Performed By: #### C MP #### [facility] [address] [address] [address] Michele Obrien Creatinine [Mass/Vol] 0.85 mg/dL Normal 0.55-1.02 [facility] Comment on above: Performed By: #### C MP #### [facility] [address] [address] [address] Michele Obrien EGFR-AF NORTH KOREAN >60 Normal >=60 [facility] Comment on above: Performed By: #### C MP #### [facility] [address] [address] [address] Michele Obrien EGFR-NON AF [place]TH KOREAN >60 Normal >=60 [facility] Comment on above: Performed By: #### C MP #### [facility] [address] [address] [address] Michele Obrien Globulin (S) [Mass/Vol] 3.1 g/dL Normal [facility] Comment on above: Performed By: #### C MP #### [facility] [address] [place] [address] Dr. Michele Obrien Glucose [Mass/Vol] 123 mg/dL Critically high 74-106 [facility] Comment on above: Performed By: #### C MP #### [facility] [address] [place] [address] Dr. Michele Obrien Potassium [Moles/Vol] 3.6 mmol/L Normal 3.5-5.1 [facility] Comment on above: Performed By: #### C MP #### [facility] [address] [address] [address] Michele Obrien Protein [Mass/Vol] 6.5 g/dL Normal 6.4-8.2 [facility] Comment on above: Performed By: #### C MP #### [facility] [address] [place] [address] Dr. Michele Obrien Sodium [Moles/Vol] 140 mmol/L Normal 136-145 [facility] Comment on above: Performed By: #### C MP #### [facility] [address] [address] [address] Michele Obrien Urea nitrogen [Mass/Vol] 14.0 mg/dL Normal 7.0-18.0 [facility] Comment on above: Performed By: #### C MP #### [facility] [address] [place] [address] Dr. Michele Obrien Urea nitrogen/Creatinine [Mass ratio] 16.5 mg/mg Normal [facility] Comment on above: Performed By: #### C MP #### [facility] [address] [place] [address] Dr. Michele Obrien URINE MICROSCOPIC ONLYon BACTERIA TRACE Abnormal NONE SEEN [facility] Comment on above: Performed By: #### H IV12 #### [facility] [facility] [address] [place] [address] Dr. Michele Obrien Bacteria identified Cx Nom (U) NOT INDICATED Normal [facility] Comment on above: Performed By: #### H IV12 #### [facility] [address] [place] [address] Dr. Michele Obrien CAST NONE SEEN Normal NONE SEEN [facility] Comment on above: Performed By: #### H IV12 #### [facility] [address] [place] [address] Dr. Michele Obrien Crystals LM Nom (Urine sed) NONE SEEN Normal NONE SEEN [facility] Comment on above: Performed By: #### H IV12 #### [facility] [address] [place] [address] Dr. Michele Obrien Epithelial cells LM Ql (Urine sed) FEW Abnormal NONE SEEN /RARE [facility] Comment on above: Performed By: #### H IV12 #### [facility] [address] [place] [address] Dr. Michele Obrien MUCOUS TRACE Abnormal NONE SEEN [facility] Comment on above: Performed By: #### H IV12 #### [facility] [address] [place] [address] Dr. Michele Obrien RBC 20-50 Abnormal 0-2 [facility] Comment on above: Performed By: #### H IV12 #### [facility] [address] [place] [address] Dr. Michele Obrien WBC 0-2 Abnormal NONE SEEN [facility] Comment on above: Performed By: #### H IV12 #### [facility] [address] [place] [address] Dr. Michele Obrien HIV 1 AND 2 WITH REFLEXon HIV Screen 4th Generation wRfx Non-Reactive Normal Non Reactive [facility] Comment on above: Result Comment: HIV Negative HIV-1/HIV-2 antibodies and HIV-1 p24 antigen were NOT detected. There is no laboratory evidence of HIV infection. Performed By: #### H IV12 #### [facility] [address] [place] [address] Dr. Michele Obrien FERRITINon 10-16-2022 Ferritin [Mass/Vol] 6.0 ng/mL Critically low 6.2-137.0 [facility] Comment on above: Performed By: #### F ERR, FETIBC #### [facility] [address] [place] [address] Dr. Michele Obrien FREE T3on 10-16-2022 FREE T3 1.87 pg/mlL Critically low 2.18-3.98 [facility] Comment on above: Performed By: #### H IV12 #### [facility] [address] [place] [address] Dr. Michele Obrien HEMOGRAM AND PLATELon 2022 Hematocrit (Bld) [Volume fraction] 35.7 % Critically low 36.0-48.0 [facility] Comment on above: Performed By: #### H H #### [facility] [address] [place] [address] Dr. Michele Obrien Hemoglobin (Bld) [Mass/Vol] 10.4 g/dL Critically low 12.0-16.0 [facility] Comment on above: Performed By: #### H H #### [facility] [address] [place] [address] Dr. Michele Obrien MCH (RBC) [Entitic mass] 20.0 pg Critically low 26.7-34.0 [facility] Comment on above: Performed By: #### H H #### [facility] [address] [address] [address] Michele Obrien MCHC (RBC) [Mass/Vol] 29.1 g/dL Critically low 29.9-35.2 [facility] Comment on above: Performed By: #### H H #### [facility] [address] [address] [address] Michele Obrien MCV (RBC) [Entitic vol] 68.5 fL Critically low 81.0-99.0 [facility] Comment on above: Performed By: #### H H #### [facility] [address] [place] [address] Dr. Michele Obrien PLT 241 103/ul Normal 150-450 [facility] Comment on above: Performed By: #### H H #### [facility] [address] [place] [address] Dr. Michele Obrien RBC 5.21 106/ul Normal 4.20-5.40 [facility] Comment on above: Performed By: #### H H #### [facility] [address] [place] [address] Dr. Michele Obrien WBC 6.9 103/ul Normal 4.0-11.0 [facility] Comment on above: Performed By: #### H H #### [facility] [address] [place] [address] Dr. Michele Obrien IRON AND TIBCon 10-16-2022 % SATURATION 4.5 % Normal [facility] Comment on above: Performed By: #### F ERR, FETIBC #### [facility] [address] [place] [address] Dr. Michele Obrien Iron [Mass/Vol] 18.0 ug/dL Critically low 50.0-170.0 [facility] Comment on above: Performed By: #### F ERR, FETIBC #### [facility] [address] [place] [address] Dr. Michele Obrien TIBC DIRECT 396.0 ug/dL Normal 250.0-450.0 [facility] Comment on above: Performed By: #### F ERR, FETIBC #### [facility] [address] [place] [address] Dr. Michele Obrien TSH W/ REFLEX TO FT4on 10-16 TSH 3.577 uIU/mL Normal 0.358-3.740 [facility] Comment on above: Performed By: #### H IV12 #### [facility] [address] [place] [address] Dr. Michele Obrien VITAMIN Con 09-03-2022 Vitamin C 0.2 mg/dL Critically low 0.4-2.0 [facility] Comment on above: Result Comment: Li min C deficiency is generally defined as plasma or serum concentrations less than 0.2 mg/dL and levels between 0.2 and 0.4 mg/dL are considered low. Performed By: #### F ERR, FETIBC #### [facility] [address] [place] [address] Dr. Michele Obrien VITAMIN Aon 09-01-2022 Vitamin A 33.6 ug/dL Normal 18.9-57.3 [facility] Comment on above: Result Comment: Refe [...] Administration. Performed By: #### V ITAMA #### [facility] [address] [place] [address] Dr. Michele Obrien VITAMIN Kodi 09-01-2022 Vitamin E (Alpha T) 11.9 mg/L Normal 5.9-19.4 [facility] Comment on above: Performed By: #### V ITAE #### [facility] [address] [place] [address] Dr. Michele Obrien Vitamin E (Gamma T) 1.5 mg/L Normal 0.7-4.9 [facility] Comment on above: Result Comment: Refe rence intervals for alpha and gamma-tocopherol determined from National Health and Nutrition Examination Survey, 5564-5945. Individuals with alpha-tocopherol levels less than 5.0 mg/L are considered vitamin E deficient. Performed By: #### V ITAE #### [facility] [address] [place] [address] Dr. Michele Obrien VITAMIN Garrett 08-26-2022 Vitamin K1 0.24 ng/mL Normal 0.10-2.20 [facility] Comment on above: Performed By: #### F ERR, FETIBC #### [facility] [address] [place] [address] Dr. Michele Obrien SELENIUM, PLASMAon Selenium, Serum/Plasma 110 ug/L Normal 93-198 [facility] Comment on above: Performed By: #### H IV12 #### [facility] [address] [place] [address] Dr. Michele Obrien VITAMIN B1 (THIAMINE)on 08-02 Vit. B1, Whole Blood 126.2 nmol/L Normal 66.5-200.0 [facility] Comment on above: Performed By: #### F SUSIE, FETIBC #### [facility] [address] [place] [address] Dr. Michele Obrien ZINC SERUM OR PLASMAon 08-23 Zinc, Plasma or Serum 69 ug/dL Normal 44-115 [facility] Comment on above: Result Comment: Dete ction Limit = 5 Performed By: #### H IV12 #### [facility] [address] [place] [address] Dr. Michele Obrien FERRITINon 08-20-2022 Ferritin [Mass/Vol] 5.0 ng/mL Critically low 6.2-137.0 [facility] Comment on above: Performed By: #### F ERR, FETIBC #### [facility] [address] [place] [address] Dr. Michele Obrien FREE T4on 08-20-2022 Free T4 [Mass/Vol] 1.01 ng/dL Normal 0.76-1.46 [facility] Comment on above: Performed By: #### H IV12 #### [facility] [address] [place] [address] Dr. Michele Obrien GLYCOHEMOGLOBIN A1Con 2022 ADA RECOMMENDATION SEE BELOW Normal [facility] Comment on above: Result Comment: ADA RECOMMENDED LIMIT 4.0 - 6.0 ADA THERAPEUTIC TARGET < 7.0 ACTION SUGGESTED > 7.0 Performed By: #### H IV12 #### [facility] [address] [address] [address] Michele Obrien Glucose [Mass/Vol] 80 mg/dL Normal [facility] Comment on above: Performed By: #### H IV12 #### [facility] [address] [address] [address] Michele Obrien HbA1c (Bld) [Mass fraction] 4.4 % Critically low 4.5-6.2 [facility] Comment on above: Performed By: #### H IV12 #### [facility] [address] [place] [address] Dr. Michele Obrien HEMOGRAM AND PLATELon 2022 Hematocrit (Bld) [Volume fraction] 29.3 % Critically low 36.0-48.0 [facility] Comment on above: Performed By: #### H IV12 #### [facility] [address] [address] [address] Michele Obrien Hemoglobin (Bld) [Mass/Vol] 9.3 g/dL Critically low 12.0-16.0 [facility] Comment on above: Performed By: #### H IV12 #### [facility] [address] [address] [address] Michele Obrien MCH (RBC) [Entitic mass] 20.1 pg Critically low 26.7-34.0 [facility] Comment on above: Performed By: #### H IV12 #### [facility] [address] [address] [address] Michele Obrien MCHC (RBC) [Mass/Vol] 31.7 g/dL Normal 29.9-35.2 [facility] Comment on above: Performed By: #### H IV12 #### [facility] [address] [address] [address] Michele Obrien MCV (RBC) [Entitic vol] 63.4 fL Critically low 81.0-99.0 [facility] Comment on above: Performed By: #### H IV12 #### [facility] [address] [address] [address] Michele Obrien PLT 213 103/ul Normal 150-450 [facility] Comment on above: Performed By: #### H IV12 #### [facility] [address] [address] [address] Michele Obrien RBC 4.62 106/ul Normal 4.20-5.40 [facility] Comment on above: Performed By: #### H IV12 #### [facility] [address] [address] [address] Michele Obrien WBC 5.8 103/ul Normal 4.0-11.0 [facility] Comment on above: Performed By: #### H IV12 #### [facility] [address] [address] [address] Michele Obrien IRON AND TIBCon 08-20-2022 % SATURATION 6.5 % Normal [facility] Comment on above: Performed By: #### F ERR, FETIBC #### [facility] [address] [address] [address] Michele Obrien Iron [Mass/Vol] 22.0 ug/dL Critically low 50.0-170.0 [facility] Comment on above: Performed By: #### F ERR, FETIBC #### [facility] [address] [address] [address] Michele Obrien TIBC DIRECT 340.0 ug/dL Normal 250.0-450.0 [facility] Comment on above: Performed By: #### F ERR, FETIBC #### [facility] [address] [address] [address] Michele Obrien LIPID PROFILEon 08-20-2022 CHOL-HDL RATIO NORM SEE BELOW Normal [facility] Comment on above: Result Comment: 3.3 - 4.4 LOW RISK 4.4 - 7.1 AVERAGE RISK 7.1 - 11.0 MODERATE RISK >11.0 HIGH RISK Performed By: #### F ERR, FETIBC #### [facility] [address] [address] [address] Michele Obrien Cholesterol [Mass/Vol] 146 mg/dL Normal <=200 [facility] Comment on above: Performed By: #### F ERR, FETIBC #### [facility] [address] [address] [address] Michele Obrien Cholesterol in HDL [Mass/Vol] 58 mg/dL Normal 40-60 [facility] Comment on above: Performed By: #### F ERR, FETIBC #### [facility] [address] [address] [address] Michele Obrien Cholesterol in LDL [Mass/Vol] 66.8 mg/dL Normal [facility] Comment on above: Performed By: #### F ERR, FETIBC #### [facility] [address] [address] [address] Michele Obrien Cholesterol.total/Ch olesterol in HDL [Mass ratio] 2.5 {ratio} Normal [facility] Comment on above: Performed By: #### F ERR, FETIBC #### [facility] [address] [address] [address] Michele Obrien HDL NORMAL > or = 60 mg/dl - LOW CARDIOVASCULAR RISK <40 mg/dl - HIGH CARDIOVASCULAR RISK Normal [facility] Comment on above: Performed By: #### F ERR, FETIBC #### [facility] [address] [address] [address] Michele Obrien LDL CALC NORMAL SEE BELOW Normal [facility] Comment on above: Result Comment: <100 mg/dl OPTIMAL 100 - 129 mg/dl NEAR OR ABOVE OPTIMAL 130 - 159 mg/dl BORDERLINE HIGH 160 - 189 mg/dl HIGH >190 mg/dl VERY HIGH Performed By: #### F ERR, FETIBC #### [facility] [address] [address] [address] Michele Obrien Triglyceride [Mass/Vol] 106 mg/dL Normal <=150 [facility] Comment on above: Performed By: #### F ERR, FETIBC #### [facility] [address] [address] [address] Michele Obrien VLDL CALC 21.2 mg/dL Normal [facility] Comment on above: Performed By: #### F ERR, FETIBC #### [facility] [address] [address] [address] Michele Obrien PROF 14(COMP METB)on 023 Albumin [Mass/Vol] 3.5 g/dL Normal 3.4-5.0 [facility] Comment on above: Performed By: #### F ERR, FETIBC #### [facility] [address] [place] [address] Dr. Michele Obrien Albumin/Globulin [Mass ratio] 1.2 {ratio} Normal [facility] Comment on above: Performed By: #### F ERR, FETIBC #### [facility] [address] [place] [address] Dr. Michele Obrien ALP [Catalytic activity/Vol] 76 U/L Normal 46-116 [facility] Comment on above: Performed By: #### F ERR, FETIBC #### [facility] [address] [place] [address] Dr. Michele Obrien ALT [Catalytic activity/Vol] 16 U/L Normal 14-59 [facility] Comment on above: Performed By: #### F ERR, FETIBC #### [facility] [address] [place] [address] Dr. Michele Obrien Anion gap [Moles/Vol] 10.0 mmol/L Normal [facility] Comment on above: Performed By: #### F ERR, FETIBC #### [facility] [address] [place] [address] Dr. Michele Obrien AST [Catalytic activity/Vol] 16 U/L Normal 15-37 [facility] Comment on above: Performed By: #### F ERR, FETIBC #### [facility] [address] [place] [address] Dr. Michele Obrien Bilirubin [Mass/Vol] 0.3 mg/dL Normal 0.2-1.0 [facility] Comment on above: Performed By: #### F ERR, FETIBC #### [facility] [address] [address] [address] Michele Obrien Calcium [Mass/Vol] 8.5 mg/dL Normal 8.5-10.1 [facility] Comment on above: Performed By: #### F ERR, FETIBC #### [facility] [address] [address] [address] Michele Obrien Chloride [Moles/Vol] 106 mmol/L Normal 98-107 [facility] Comment on above: Performed By: #### F ERR, FETIBC #### [facility] [address] [address] [address] Michele Obrien CO2 [Moles/Vol] 30.8 mmol/L Normal 21.0-32.0 [facility] Comment on above: Performed By: #### F ERR, FETIBC #### [facility] [address] [place] [address] Dr. Michele Obrien Creatinine [Mass/Vol] 0.68 mg/dL Normal 0.55-1.02 [facility] Comment on above: Performed By: #### F ERR, FETIBC #### [facility] [address] [place] [address] Dr. Michele Obrien EGFR-AF [place] >60 Normal >=60 [facility] Comment on above: Performed By: #### F ERR, FETIBC #### [facility] [address] [place] [address] Dr. Michele Obrien EGFR-NON AF [place] >60 Normal >=60 [facility] Comment on above: Performed By: #### F ERR, FETIBC #### [facility] [address] [address] [address] Michele Obrien Globulin (S) [Mass/Vol] 2.8 g/dL Normal [facility] Comment on above: Performed By: #### F ERR, FETIBC #### [facility] [address] [place] [address] Dr. Michele Obrien Glucose [Mass/Vol] 77 mg/dL Normal 74-106 [facility] Comment on above: Performed By: #### F ERR, FETIBC #### [facility] [address] [place] [address] Dr. Michele Obrien Potassium [Moles/Vol] 3.8 mmol/L Normal 3.5-5.1 [facility] Comment on above: Performed By: #### F ERR, FETIBC #### [facility] [address] [address] [address] Michele Obrien Protein [Mass/Vol] 6.3 g/dL Critically low 6.4-8.2 [facility] Comment on above: Performed By: #### F ERR, FETIBC #### [facility] [address] [place] [address] Dr. Michele Obrien Sodium [Moles/Vol] 143 mmol/L Normal 136-145 [facility] Comment on above: Performed By: #### F ERR, FETIBC #### [facility] [address] [place] [address] Dr. Michele Obrien Urea nitrogen [Mass/Vol] 10.0 mg/dL Normal 7.0-18.0 [facility] Comment on above: Performed By: #### F ERR, FETIBC #### [facility] [address] [place] [address] Dr. Michele Obrien Urea nitrogen/Creatinine [Mass ratio] 14.7 mg/mg Normal [facility] Comment on above: Performed By: #### F ERR, FETIBC #### [facility] [address] [place] [address] Dr. Michele Obrien TSHon 08-20-2022 TSH 4.302 uIU/mL Critically high 0.358-3.740 [facility] Comment on above: Performed By: #### F ERR, FETIBC #### [facility] [address] [place] [address] Dr. Michele Obrien VIT B12 AND FOLATEon 023 Cobalamin (Vitamin B12) [Mass/Vol] 433.0 pg/mL Normal 193.0-986.0 [facility] Comment on above: Performed By: #### B 12FOL, VITAD #### [facility] [address] [place], [place] [id number] Dr. Michele Obrien FOLATE 18.00 ng/mL Normal 8.60-58.90 [facility] Comment on above: Performed By: #### B 12FOL, VITAD #### [facility] [address] [address] [address] Michele Obrien VITAMIN D 25 OHon 08-20-2022 VIT D 25-OH 33.4 ng/mL Normal [facility] Comment on above: Performed By: #### B 12FOL, VITAD #### [facility] [address] [address] [address] Michele Obrien VIT D RANGES SEE BELOW Normal [facility] Comment on above: Result Comment: <20 ng/mL Vit D deficient 20 - <30 ng/mL Vit D insufficient 30 - 100 ng/mL Vit D sufficient >100 ng/mL Potential Toxicity Performed By: #### B 12FOL, VITAD #### [facility] [address] [address] [address] Michele Obrien Vital Signs Date Time Vital Sign Value Performing Clinician Facility 05-19-2023 15:30-0400 Body weight 128.05 kg Denys Landa Other [employer] Other 05-19-2023 15:30-0400 Diastolic blood pressure 86 mm[Hg] Denys Landa Other [employer] Other 05-19-2023 15:30-0400 Systolic blood pressure 127 mm[Hg] Denys Landa Other [employer] Other 03-15-2023 10:48-0400 Diastolic blood pressure 80 mm[Hg] [employer] Wilber Shammo Work Phone: [facility] 03-15-2023 10:48-0400 Heart rate 63 /min [employer] Wilber Shammo Work Phone: [facility] 03-15-2023 10:48-0400 Respiratory rate 16 /min [employer] Wilber Shammo Work Phone: [facility] 03-15-2023 10:48-0400 SaO2% (BldA) [Mass fraction] 99 % [employer] Wilber Shammo Work Phone: [facility] 03-15-2023 10:48-0400 Systolic blood pressure 126 mm[Hg] [employer]IC [employer]PER[employer] Wilber Shammo Work Phone: [facility] 03-15-2023 08:43-0400 Body height 180.34 cm [employer] Wilber Shammo Work Phone: [facility] 03-15-2023 08:43-0400 Body temperature 98.2 [degF] [employer]LASTIC [employer]PERATOR [employer] Wilber Shammo Work Phone: [facility] 03-15-2023 08:43-0400 Body weight 129.27 kg T[employer] ELASTIC [employer]PERATOR [employer] Wilber Shammo Work Phone: [facility] 01-17-2023 10:00-0400 Body weight 127.01 kg Denys Landa Other [employer] Other 01-17-2023 10:00-0400 Diastolic blood pressure 85 mm[Hg] Denys Landa Other [employer] Other 01-17-2023 10:00-0400 Systolic blood pressure 125 mm[Hg] Denys Landa Other [employer] Other Encounters Encounter Date Encounter Type Care Provider Facility Start: 08-03-2023 ambulatory WILBER SHAMMO Facility:[facility] Start: 07-21-2023 End: 07-21-2023 ambulatory WINSTON LINARES Not Available Start: 06-13-2023 End: 06-13-2023 ambulatory YOAN TOLEDO Not Available Start: 05-19-2023 End: 05-19-2023 ambulatory Denys Landa Other [employer] Other Start: 05-19-2023 Office outpatient visit 15 minutes Denys Landa [facility] Start: 03-15-2023 End: 03-15-2023 ambulatory Denys Landa Facility:[facility] Start: 03-15-2023 End: 03-15-2023 Admission to same day surgery center [facility] Wilber Shammo Work Phone: [facility] Work Phone: Start: 03-15-2023 End: 03-15-2023 ambulatory [facility] Wilber T Shammo Work Phone: [facility] Work Phone: Start: 01-26-2023 End: 01-27-2023 ambulatory WILBER SHAMMO Facility:[facility] Start: 01-26-2023 End: 01-27-2023 ambulatory Alyson Chiu Facility:[facility] Start: 01-26-2023 End: 01-26-2023 Lab Drop off Alyson Chiu [facility] Start: 01-26-2023 End: 01-26-2023 Patient encounter procedure Alyson Chiu [facility] Start: 01-20-2023 ambulatory WILBER SHAMMO Facility:[facility] Start: 01-17-2023 End: 01-17-2023 ambulatory Denys Landa Other [employer] Other Start: 01-17-2023 Office outpatient ne w 45 minutes Denys Landa [facility] Start: 12-28-2022 End: 12-28-2022 ambulatory LUKE BOWENS . Facility: Start: 10-16-2022 End: 10-17-2022 ambulatory WILBER SHAMMO Facility: Start: 08-25-2022 Encounter for genera l adult medical examination without abnormal findings WILBER SHAMMO [facility] Start: 08-20-2022 End: 08-21-2022 ambulatory WILBER MORE Facility:[facility] Start: 08-20-2022 End: 08-21-2022 Encounter for general adult medical examination without abnormal findings WILBER MORE Facility:[facility] Procedures Date Procedure Procedure Detail Performing Clinician Start: 03-15-2023 Esophagogastroduodenoscopy [employer] Wilber More Work Phone: Start: 08-01-2016 Appendectomy Alyson Chiu Start: 08-01-2016 Gastric sleeve Alyson jara Start: 08-01-2005 Cholecystectomy Alyson L ue Arthroplasty of knee Alyson L ue Comment on above: Meniscus repair section Alyson Chiu Comment on above: x2 Plan of Treatment Date Care Activity Detail Author Start: 03-15-2023 [facility] Patient Education Hiatal hernia Diverticulosis [facility] Work Phone: Immunizations Immunization Date Immunization Notes Care Provider Alice calhoun 06-01-2022 influenza virus vaccine, unspecified formulation Alyson Chiu [facility] Payers Date Payer Category Payer Self-pay 2022 [employer] others) [id number] 2022 [employer] ( [employer] others) [id number] 1986 Unknown [id number] 1986 Unknown [id number] 1986 Unknown [id number] 1986 Unknown [id number] 1986 Unknown [id number] 1986 Unknown [id number] 1986 Unknown [id number] 1986 Unknown [id number] 1959 [employer] [place] ( and others) [id number] Unknown [id number] Social History Date Type Detail Facility Sex Assigned At [facility] Start: 01-26-2023 Tobacco smoking status Ex-smoker (fi nding) [facility] Start: 03-15-2023 Tobacco smoking stat NHIS Smoker (finding) [facility] Start: 1985 Sex Assigned At Female F [facility] Goals Date Patient Goal Desired Activity /State Functional Status Date Assessment Result Facility 01-26-2023 Functional Status No [facility] Clinical Notes 01-17-2023 to 05-19-2023 Note Date [...] start metamucile and probiotics RTO 3 months [employer] Other [facility]-15[facility] Discharge instructions Patient Education 01/26/2023 10:54:04 [...] include: ?8 oz (237 mL) of milk, fbhlavi-lpmrlvcbphsh-cddvk milk, and calcium- fortifiedfruit juice. Calcium-fortified means [...] ?Spinach (cooked), rhubarb, beets, sweet potatoes, and Lao chard. ?Peanuts. ?Potato chips, cambodian fries, and baked potatoes with skin on. ?Nuts and nut products. ?Chocolate. If you regularly take a diuretic medicine, make sure to eat at least 1 or 2 servings of fruits or vegetables that are high in potassium each day. These include: ?Avocado. ?Banana. ?[place], prune, carrot, or tomato juice. ?Baked potato. [...] magnesium, fish oil, or vitamin B6. Take ttgx-rwz-lellxmt and prescription medicines only as told by [...] Casseroles. Pizza. Lasagna. Frozen meals. Potato chips. Citizen [place] fries. The items listed above may not [...] provider. Document Revised: 03/29/2022 Document Reviewed: 03/29/2022 [employer] Patient Education 2022 [employer]. Follow Up Care 12/28/2022 12:57:40 With:Aram RUSSELL, Alyson Burdick, URL, URO Address: When:Within 6 Month(s) Comments:w/ DEYA & YAMILETH [facility] 06-19-2023 Evaluation note* Encounter Date Diagnosis Assessment Notes Treatment Notes Treatment Clinical Notes Dec, Iron deficiency anemia (ICD-10 - D50.9) Will proceed with EGD Will request recent lab work done at [place]. Dec, GERD (gastroesophageal reflux disease) (ICD-10 - K21.9) Patient to continue on Omeprazole 40mg Dec, Diarrhea (ICD-10 - R19.7) Will proceed with Colonoscopy. [employer] Other Evaluation + Plan note Future Appointments Appointment Date:08/03/2023 10:00:00 AM Scheduled Provider:Alyson Chiu MD Location:[facility] Appointment Type:URO Office Visit [facility] evaluation + Plan note Future Appointments Appointment Date:08/03/2023 10:00:00 AM Scheduled Provider:Alyson Chiu MD Location:[facility] Appointment Type:URO Office Visit Diagnostic Tests Pending * Calculi Analysis [facility] Diagnosis Onset Date Resolution Status Iron deficiency anemia [facility] Work Phone: History general Narrative - Reported* Type Description Date Medical History Esophageal reflux Medical History anxiety Medical History chronic depression Medical History high blood pressure Medical History low thyroid Medical History menieres disease Medical History kidney stones Medical History iron deficiency anemia Surgical History C section Surgical History gastric sleeve Surgical History cholecystectomy Surgical History appendectomy Surgical History left knee meniscus Hospitalization History see above [employer] Other Hospital course Narrative No data available for this section [facility] Hospital Discharge instructions No data available for this section [facility] Discharge instructions Additional Instructions DISCHARGE INSTRUCTIONS FOR [...] if you have any problems. -Office number [phone] Work Phone: Progress note No data available for this section [facility] Summary Purpose Family History No Family [...] and content) DATE CREATED AUTHOR 01/07/2023 [facility] DATE CREATED AUTHOR AUTHOR'S ORGANIZ ATION 03/17/2023 [facility] DATE CREATED AUTHOR AUTHOR'S ORGANIZ ATION 07/22/2023 [facility] DATE CREATED AUTHOR AUTHOR'S ORGANIZ ATION 08/05/2023 [facility] REASON FOR VISIT (unrecogniz ed section and [...] Dates Denys Landa MD Attending Provider [facility] Provider Active FOR RECORDS PERTAINING [...] BE BASED ON THE PRIMARY CLINICAL RECORDS. [employer] provides no warranty or guarantee of the accuracy or completeness of information in this document.
== END 2023-08-18 11:01 | disposition home or self-care (01) ==
LOC: US 11:03
PROVIDERS: PCP Nurse Practitioner Primary Care; Visit Provider Obstetrics & Gynecology
DX: Z36.89 Encounter for other specified antenatal screening (principal); Z3A.20 20 weeks gestation of pregnancy
CPT/HCPCS: 76805; 76817

== ENCOUNTER 2023-11-15 08:00 | Outpatient (OUT) | payer OTHER, SELFPAY ==
--- NOTE | 2023-11-15 08:02 | US_ITS ---
[address] [address] Patient Name: TIFFANI GROSSMAN MRN: [id number] date: 1985 Sex: F Assigned Patient Location: [facility] Current Patient Location: [facility] Accession/Order Number: [id number] Exam Date: 11/15/2023 08:03 Report Date: 11/15/2023 08:46 At the request of: WINSTON LINARES Procedure: US OB growth EXAMINATION: US OB growth HISTORY: HYPOTHYROIDISM COMPARISON: No relevant comparison available. FINDINGS: Heart Rate: 150.0 bpm Amniotic Fluid Volume: 13.3 cm Number: 1.0 Position: Cephalic presentation, longitudinal lie Maximum Vertical Pocket: 2.3 cm cm 3.2 cm cm 4.6 cm cm 3.2 cm cm BIOMETRY: BPD: 8.6 cm cm; 34 weeks 6 days; 88% HC: 30.7 cmcm; 34 weeks 2 days , 42% AC: 30.7 cm cm; 34 weeks 4 days, 80% FL: 6.6 cm cm; 34 weeks 1 days; 65.9 % % EFW: 2438.4 grams, 5 lbs. 6 oz., 81% FL/AC: 21.6 FL/BPD: 76.7 HC/AC: 1.0 GESTATIONAL AGE: Age by EDC: 33 weeks 1 days ELPIDIO by EDC: 01/02/2024 Age by US: 34 weeks 3 days ELPIDIO by US: 12/24/2023 US/US OB growth IMPRESSION: Normal interval growth Electronically authenticated by: PEDRO FIGUEREDO Date: 11/15/2023 08:46
--- OUTSIDE RECORDS SUMMARY | 2023-11-15 08:04 | XMS_ITS | CCD ---
Author Organization [facility] Care Team Providers Care Card Folder Name Role Phone KWAN ., LUKE Admitting Unavailable KWAN ., LUKE Attending Unavailable DR PARDEEP SLAUGHTER Consulting Unavailable SHAMMO, WILBER Primary Care Unavailable LUE ., ALYSON M Consulting Unavailable LINDA LOMBARDO Consulting Unavailable ALEXA WHITE Consulting Unavailable KWAN ., LUKE Consulting Unavailable SHAMMO, WILBER Attending Unavailable SHAMMO, WILBER Admitting Unavailable SHAMMO, WILBER Consulting Unavailable SHAMMO, WILBER Attending Unavailable SHAMMO, WILBER Admitting Unavailable SHAMMO, WILBER Primary Care Unavailable SHAMMO, WILBER Consulting Unavailable Denys Landa Unavailable SHAMMO, WILBER TOMASA Primary Care Physician MD Denys Landa Attending Provider Shammo, [facility] Wilber T Primary Care Provider [phone] Denys Landa Attending Unavailabl e Denys Landa Admitting Unavailabl e Shammo, Wilber T Primary Care Unavailable SHAMMO, WILBRE Primary Care Unavailable Alyson Chiu Attending Unavailable Alyson Chiu Attending Unavailable SHAMMO, WILBER Primary Care Unavailable SHAMMO, WILBER Primary Care Unavailable Alyson Chiu Admitting Unavailable Alyson Chiu Attending Unavailable Unavailable Primary Care Provider Unavailabl e Unavailable Primary Care Provider Unavailabl e No Pcp, No Pcp Primary Care Provider Unavailabl e PARIS ADRIAN R Referring Unavailable NO PCP, NO PCP Primary Care Unavailable PARIS, ADRIAN Attending Unavailable KASSANDRA LINARES Attending Unavailable PARIS, ADRIAN Attending Unavailable MILAGROS, KASSANDRA Attending Unavailable PARIS, ADRIAN Attending Unavailable KASSANDRA LINARES Attending Unavailable HÉCTOR AGUILAR Attending Unavailable PARIS, ADRIAN R Referring Unavailable NO PCP, NO PCP Primary Care Unavailable PARIS, ADRIAN R Referring Unavailable HÉCTOR AGUILAR Attending Unavailable ADRIAN MIGUEL Referring Unavailable Allergies Allergy Classification Reported Allergen(s) Allergy Type Date of Onset Reaction(s) Facility (3 sources) Penicillin Drug Allergy 3 Unknown [facility] Repository (15 sources) Penicillins; Translations: [penicillins] Allergy to substance 3 Anaphylaxis (disorder), Anaphylaxis, Unknown [facility] (7 sources) topiramate; Translations: [TOPIRAMATE] [facility] (2 sources) Penicillin G Drug Allergy 3 Unknown [facility] (2 sources) Topiramate Allergy to substance 3 [facility] Healthcare Medications Current Medications Medication Drug Class(es) Dates Sig (Normalized) Sig (Original) amLODIPine 10 mg oral tablet (13 sources) Dihydropyridine Calcium Channel Harsh Start: 09-24-2022 End: 07-04-2024 take 1 tablet by mouth in the morning amLODIPine (NORVASC) 10 mg tablet Take 1 tablet (10 mg total) by mouth in the morning. 0 09/24/2022 Active aspirin 81 mg delayed release oral tablet (4 sources) Platelet Aggregation Inhibitor, Nonsteroidal Anti-inflammatory Drug take 1 tablet by mouth in the morning aspirin 81 mg Take 1 tablet (81 mg total) by mouth in the morning. 0 Active 24 hr buPROPion hydrochloride 150 mg extended release oral tablet (7 sources) Aminoketone Start: 09-14-2023 End: 12-13-2023 take 1 tablet by mouth every twenty-four hours in the morning buPROPion XL (Wellbutrin XL) 150 MG 24 hr tablet Indications: Anxiety with depression Take 1 tablet (150 mg) by mouth in the morning. 30 tablet 2 09/14/2023 12/13/2023 Active busPIRone hydrochloride 10 mg oral tablet (6 sources) Start: 08-31-2022 take 1 tablet by mouth in the morning, then take 1 tablet by mouth at bedtime busPIRone (BUSPAR) 10 mg tablet Take 1 tablet (10 mg total) by mouth in the morning and 1 tablet (10 mg total) before bedtime. 0 08/31/2022 Active chlorhexidine gluconate 1.2 mg/ml mouthwash (8 sources) Start: 09-28-2022 chlorhexidine (PERIDEX) 0.12 % solution TAKE 15 ML IN MOUTH & SWISH FOR 30 SECONDS THEN SPIT OUT TWICE DAILY FOR 20 DAYS 0 09/28/2022 Active diclofenac sodium 75 mg delayed release oral tablet (3 sources) Nonsteroidal Anti-inflammatory Drug Start: 03-14-2023 take 75 mg by mouth twice daily Diclofenac Sodium Active 75 MG PO Twice daily March 14, 2023 12:00am Start: 02-21-2023 diclofenac (Vo ltaren) 75 MG EC tablet every 12 (twelve) hours 0 02/21/2023 Active diphenhydrAMINE hydrochloride 50 mg oral capsule (10 sources) Histamine-1 Receptor Antagonist Start: 01-26-2023 take 50 mg by mouth once daily at bedtime Diphenhydramine Hcl Active 50 MG PO Daily at bedtime March 14, 2023 12:00am diphenhydramine HCl (UNISOM, DIPHENHYDRAMINE, ORAL) Take 50 mg by mouth. 0 Active escitalopram 10 mg oral tablet (12 sources) Serotonin Reuptake Inhibitor Start: 01-26-2023 End: 07-04-2024 take 1 tablet by mouth in the morning escitalopram (Lexapro) 10 MG tablet Indications: Anxiety, generalized (CMS/HCC) Take 1 tablet (10 mg) by mouth in the morning. 1 tablet 11 07/05/2023 07/04/2024 Active take 1 tablet by pablo th every twenty-four hours Escitalopram Oxalate 5 MG 1 tablet Orall y Once a day Active ferrous sulfate 134 mg oral tablet (10 sources) Start: 03-14-2023 take 27 mg by mouth once daily Ferrous Sulfate Active 27 MG PO Daily March 14, 2023 12:00am ferrous sulfate 325 (65 FE) mg EC tablet Take 1 tablet (325 mg total) by mouth in the morning and 1 tablet (325 mg total) at noon and 1 tablet (325 mg total) in the evening. Take with meals. 0 Active take 1 tablet by mouth three niko es weekly Iron 325 (65 Fe) MG 1 tablet Orally Three times a Week Active fluocinolone acetonide 0.1 mg/ml topical oil (2 sources) Corticosteroid Fluocinolone Bonifacio tonide Scalp 0.01 % 1 application Externally Twice a day Active fluocinonide 0.5 mg/ml topical solution (9 sources) Corticosteroid Start: 03-14-2023 Fluocinonide Active 1 APPLIC TOPICAL every other day March 14, 2023 12:00am Start: 09-25-2022 fluocinonide ( LIDEX) 0.05 % external solution APPLY TO THE AFFECTED AREA(S) EVERY OTHER DAY 0 09/25/2022 Active Start: 09-25-2022 fluocinonide ( Lidex) 0.05 % external solution Apply 1 application topically in the morning. 0 09/25/2022 Active hydrOXYzine pamoate 25 mg oral capsule (6 sources) Antihistamine Start: 10-14-2022 take 1 capsule by mouth twice daily as needed hydrOXYzine (VISTARIL) 25 mg capsule TAKE 1 CAPSULE BY MOUTH TWICE DAILY NEEDED 0 10/14/2022 Active iron carbonyl 15 mg chewable tablet (2 sources) Start: 01-26-2023 Carbonyl Iron (Iron Chews Pediatric) 15 MG chewable tablet Chew 0 01/26/2023 Active Iron Chews (2 sources) Start: 01-26-2023 take 1 mg by mouth once daily Iron Chews mg, Oral, Daily, Refills(s) 0 Start Date: 01/26/23 Status: Ordered levothyroxine sodium 0.025 mg oral tablet (19 sources) l-Thyroxine Start: 09-01-2023 take 1 tablet by mouth before mealtime levothyroxine (Synthroid, Levoxyl) 25 MCG tablet Indications: Other specified hypothyroidism (CMS/HCC) TAKE 1 TABLET BY MOUTH IN THE MORNING BEFORE MEALS *tk along with current dosage* 30 tablet 3 09/01/2023 Active Start: 03-09-2023 Synthroid 137 MCG tablet Take 137.5 mcg by mouth in the morning. Take before meals. 0 03/09/2023 Active Start: 01-26-2023 take 1 capsule by [facility] once daily levothyroxine 137 mcg (0.137 mg) oral capsule mcg cap(s), Oral, Daily, Refills(s) 0 Start Date: 01/26/23 Status: Ordered Start: 08-23-2022 SYNTHROID 137 mcg tablet Levothyroxine So dium Active meclizine hydrochloride 25 m g oral tablet (7 sources) Antiemetic Start: 03-14-2023 meclizine (Ant ivert) 25 MG tablet every 12 (twelve) hours 0 03/14/2023 Active Start: 03-14-2023 take 25 mg by mouth once daily Meclizine Active 25 MG PO Daily March 14, 2023 12:00am Start: 01-26-2023 take 1 mg by mouth once daily meclizine 25 mg oral tablet, chewable mg tab(s), Chewed, Daily, Refills(s) 0 Start Date: 01/26/23 Status: Ordered take 1 tablet by pablo every twelve hours Meclizine HCl 25 MG 1 tablet as needed Orally every 12 hrs Active melatonin 1 mg oral capsule (10 sources) Start: 03-14-2023 Melatonin 1 MG capsule Bedtime 0 03/14/2023 Active Start: 03-14-2023 take 12 mg by mouth at bedtime Melatonin Active 12 MG PO Bedtime March 14, 2023 12:00am Melatonin 1 MG c hewable tablet Chew 1 each in the morning. 0 Active melatonin 1 mg t ablet,chewable Chew and swallow. 0 Active 24 hr metoprolol succinate 100 mg extended release oral tablet (13 sources) beta-Adrenergic Harsh Start: 03-14-2023 take 25 mg by mouth once daily Metoprolol Succinate Active 25 MG PO Daily March 14, 2023 12:00am Start: 01-26-2023 take 1 mg by mouth once daily metoprolol 100 mg ER Tab mg tab(s), Oral, Daily, Refills(s) 0 Start Date: 01/26/23 Status: Ordered Start: 09-09-2022 End: 12-13-2023 take 1 tablet by mouth every twenty-four hours in the morning metoprolol succinate XL (TOPROL XL) 100 mg 24 hr tablet Take 1 tablet (100 mg total) by mouth in the morning. 0 09/09/2022 Active take 1 capsule by mo [facility] once daily Metoprolol Succinate 100 MG 1 capsule Orally Once a day Active Multi Vitamin+ (2 sources) Start: 01-26-2023 Multi Vitamin+ Refill(s) 0 Start Date: 01/26/23 Status: Ordered Multiple Vitamin (Multi Vitamin Daily) tablet (2 sources) Start: 01-26-2023 Multiple Vitamin (Multi Vitamin Daily) tablet Refill(s) 0 0 01/26/2023 Active omeprazole 40 mg delayed release oral capsule (12 sources) Proton Pump Inhibitor Start: 01-26-2023 take 40 mg by mouth once daily Omeprazole Active 40 MG PO Daily March 14, 2023 12:00am ondansetron 4 mg disintegrating oral tablet (7 sources) Serotonin-3 Receptor Antagonist Start: 03-14-2023 ondansetron ODT (Zofran-ODT) 4 MG disintegrating tablet 1 (one) time each day at the same time 0 03/14/2023 Active Start: 01-26-2023 take 1 mg by mouth e very eight hours Zofran 4 mg Tab mg tab(s), Oral, q8hr, Refills(s) 0 Start Date: 01/26/23 Status: Ordered take 1 tablet by pablo th every twenty-four hours Ondansetron HCl 4 MG 1 tablet Orally Once a day Active MV & Min w/FA-DHA ( Gummies) 0.18-25 MG chewable tablet (2 sources) MV & Mi n w/FA-DHA ( Gummies) 0.18-25 MG chewable tablet as directed Orally 0 Active sertraline 100 mg oral tablet (6 sources) Serotonin Reuptake Inhibitor Start: 10-14-2022 take 1 tablet by mouth in the morning sertraline (ZOLOFT) 100 mg tablet Take 1 tablet (100 mg total) by mouth in the morning. 0 10/14/2022 Active tiZANidine 4 mg oral tablet (1 [...] Diaphragmatic hernia without obstruction or gangrene Episodic Anxiety disorders (2 sources) Mixed anxiety and depressive disorder; Translations: [Other specified anxiety disorders] Onset: 4 08-18-2023 Chronic Calculus of urinary tract (3 sources) Ureteric stone; Translations: [Calculus of ureter] Onset: 3 Episodic Cardiac and circulatory congenital anomalies (2 sources) Arteriovenous malformation of digestive system vessel; Translations: [Arteriovenous malformation] Chronic Deficiency and other anemia (8 sources) Iron deficiency anemia, unspecified; Translations: [Iron deficiency anemia, unspecified] Onset: 3 Episodic Diverticulosis and diverticulitis (2 sources) Diverticular disease of colon; Translations: [Diverticulosis of intestine, part unspecified, without perforation or abscess without bleeding] Chronic Esophageal disorders (3 sources) Gastroesophageal reflux disease; Translations: [Gastro-esophageal reflux disease without esophagitis] Chronic Hypertension complicating ; childbirth and the puerperium (12 sources) Essential hypertension complicating AND/OR reason for care during ; Translations: [Pre-existing essential hypertension complicating , second trimester] Onset: 4 09-22-2023 Chronic Immunizations and screening for infectious disease (1 source) Encounter for screening for human immunodeficiency virus [HIV]; Translations: [ENCOUNTER FOR SCREENING FOR HIV] Onset: 3 Episodic Other complications of (2 sources) Obesity complicating , unspecified trimester; Translations: [Obesity complicating , unspecified trimester] Onset: 4 Chronic Other complications of (1 source) Multigravida of advanced maternal age; Translations: [Supervision of elderly multigravida, second trimester] 09-22-2023 Episodic Other complications of (1 source) Hypothyroidism in ; Translations: [Endocrine, nutritional and metabolic diseases complicating , unspecified trimester] 09-22-2023 Episodic Other complications of (1 source) Supervision of elderly multigravida, second trimester; Translations: [Supervision of elderly multigravida, second trimester] Onset: 4 Episodic Other complications of (1 source) Endocrine, nutritional and metabolic diseases complicating , unspecified trimester; Translations: [Endocrine, nutritional and metabolic diseases complicating , unspecified trimester] Onset: 4 Episodic Other complications of (2 sources) Malformation of placenta, unspecified, unspecified trimester; Translations: [Malformation of placenta, unspecified, unspecified trimester] Onset: 4 Episodic Other endocrine disorders (2 sources) 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; Translations: [Hypopituitarism] 09-15-2023 Chronic Other gastrointestinal disorders (1 source) Diarrhea, unspecified Episodic Other and delivery including normal (4 sources) Second trimester ; Translations: [Encounter for supervision of normal , unspecified, second trimester] Onset: 4 09-13-2023 Episodic Other screening for suspected conditions (not mental disorders or infectious disease) (8 sources) Encounter for screening for cardiovascular disorders; Translations: [Encounter for screening for nutritional disorder] Onset: 3 09-15-2023 Episodic Previous (2 sources) Maternal care for unspecified type scar from previous delivery; Translations: [Maternal care for unspecified type scar from previous delivery] Onset: 4 Episodic Thyroid disorders (5 sources) Hypothyroidism, unspecified; Translations: [Hypothyroidism] Onset: 3 09-15-2023 Chronic Unclassified (2 sources) OB Reminders Onset: 3 06-30-2023 Unclassified (1 source) Advanced Maternal Age Onset: 4 Unclassified (1 source) Chronic Hypertension Onset: 4 Past or Other Problems Problem Classification Problem Date Documented Da te Episodic/Chronic Deficiency and other anemia (9 sources) Iron deficiency anemia; Translations: [Iron deficiency anemia, unspecified] Onset: 10-20-2022 03-15-2023 Episodic Residual codes; unclassified (1 source) 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]; Translations: [ACQUIRED ABSENCE OF STOMACH] Onset: 08-25-2022 Episodic Results Test Name Value Interpretation Reference Range Facility Urinalysis macro (dipstick) panel (U)on 09-15-2023 Bilirubin, UA Negative Negative - 4(70) +++ mg/dL [facility] Blood, UA Negative Negative - 50 Maikol/mcL [facility] Clarity, UA Clear [facility] Color, UA Yellow [facility] Glucose, UA Negative Negative - 2000(110) ++++ mg/dL [facility] Interpretation and review of laboratory results Abnormal [facility] Ketones, UA Negative Negative - 160(16) ++++ mg/dL [facility] Leukocytes, UA Negative Negative - 500+++ Endy/mcL [facility] Nitrite, UA Negative Negative - Positive [facility] pH, UA 6.0 5 - 9 [facility] Protein, UA Trace Negative - 1999(20) ++++ mg/dL [facility] Spec Grav, UA 1.025 1 - 1.03 [facility] Urobilinogen, UA 0.2 0.2 - 12 mg/dL [facility] Reminderson 08-05-2023 Reminders - From: Ewa Valentin To: EU - Recalls Lue; Sent: 01/26/2023 10:51:29 EDT Show up: 06/28/2023 09:51:00 EST Subject: Reminder Message Due Date/Time: 07/28/2023 09:51:00 EST Call pt to schedule a KUB and YAMILETH Called pt and left VM to return our call - From: Ana Sherwood (EU - Recalls Luwilber) To: Alyson Chiu MD; Sent: 07/11/2023 13:04:24 EST Show up: 07/11/2023 13:03:00 EST Subject: RE: Reminder Message Called pt and she states that she is 15 weeks and was wondering if imaging is still safe. Please advise. - From: Alyson Chiu MD To: EU - Recalls Lue; Sent: 07/11/2023 18:00:02 EST Show up: 07/11/2023 [...] - From: Ana Sherwood (EU - Recalls Luwilber) To: Alyson Chiu MD; Sent: 08/04/2023 11:10:53 EST Show up: 08/04/2023 11:10:00 EST Subject: RE: Reminder Message Does pt need tracked? - From: Alyson Chiu MD To: RICKY Doug Chiu; Sent: 08/05/2023 09:02:01 EST Show up: 08/05/2023 09:01:00 EST Subject: RE: Reminder Message No Normal [facility] Free Cell DNAon 2022 [facility] HCG ( test) IA.rapi d Ql (U)Ordered By: Denys Landa on 03-15-2023 HCG ( test) Ql (U) Negative [facility] HCG,Urineon 03-15-2023 Beta HCG ( test) Ql (U) Negative Normal [facility] Comment on above: Result Comment: PERF ORMED BY: [facility] [address] [place] [address] PATHOLOGIST NOTE KEEPER SALVADOR LEHMAN M.D. Performed By: #### U HCG #### [facility] [address] Arturo 03-15-2023 L Specimen: [id number] Received: 03/15/23 Status: KENISHA Tavon Num: [id number] Spec Type: Surgical Subm Dr: Denys Landa MD Tissues: A Duodenum - Biopsy (DUODENAL BX) B STOMACH FOR HP (ANTRAL BX HP) C Esophagus Biopsy (ESOPHAGUS BX) Procedures: HE/6, Gross/Micro L4/3, H PYLORI Age/ Patient Sex Location Account Attending Physician Tiffani Allison 37/F [id number] Denys Landa MD SPEC NUM: [id number] RECD: 03/15/23114 STATUS: KENISHA MONTES DE OCA NUM: [id number] RODERICK: 03/15/23- SUBM DR: Denys Landa MD ENTERED: 03/15/23-11[address] [facility] [address]: CESAR TYPE: Surgical DEPT: S ORDERED: [...] eosinophilic exocytosis or eosinophilic esophagitis identified Specimen: [id number] Received: 03/15/23 Status: KENISHA Montes De Oca Num: [id number] Spec Type: Surgical Subm Dr: Denys Landa MD Tissues: A Duodenum - Biopsy (DUODENAL BX) B STOMACH FOR HP (ANTRAL BX HP) C Esophagus Biopsy (ESOPHAGUS BX) Procedures: HE/6, Gross/Micro L4/3, H PYLORI Patient: Tiffani Allison [id number] (Continued) Specimen: [id number] Received: 03/15/23 (Continued) Signed (signature on file) Bharti Obrien MD 03/16/23 [id number] Specimen: [id number] Received: 03/15/23 Status: KENISHA Montes [place]ca Num: [id number] Spec Type: Surgical Subm Dr: Denys Landa MD Tissues: A Duodenum - Biopsy (DUODENAL BX) B STOMACH FOR HP (ANTRAL BX HP) C Esophagus Biopsy (ESOPHAGUS BX) Procedures: HE/6, Gross/Micro L4/3, H PYLORI Patient: Tiffani Allison [id number] (Continued) Specimen: [id number] Received: 03/15/23 (Continued) Clinical Information LARISSA, rule [...] microscopic examination confirms the diagnosis. CPT Codes 99378s0, 93703 -- (more content not included)... Normal [facility] Calculus Analysison 02-06-20 23 Calcium oxalate dihydrate Infrared spectroscopy (Stone) [Mass fraction] 30 % Invalid Interpretation Code [facility] Comment on above: Performed By: #### 1 [id number] #### [facility] [address] [place] [address] Calcium oxalate monohydrate (Stone) [Mass fraction] 70 % Invalid Interpretation Code [facility] Comment on above: Performed By: #### 1 [id number] #### [facility] [address] [place] [address] Color (Stone) Brown Invalid Interpretation Code [facility] Comment on above: Performed By: #### 1 [id number] #### [facility] [address] [place] [address] Composition Comment Invalid Interpretation Code [facility] Comment on above: Result Comment: Perc entage (Represents the % composition) Performed By: #### 1 [id number] #### [facility] [address] [place] [id number] Disclaimer: Comment Invalid Interpretation Code [facility] Comment on above: Result Comment: This test was developed and its performance characteristics determined by [facility]. It has not been cleared or approved by the Food and Drug Administration. Performed at: [address] [id number] PhD Roya Alo Performed By: #### 1 [id number] #### [facility] [address] [place] [address] Laboratory comment Asa (Report) Comment Invalid Interpretation Code [facility] Comment on above: Result Comment: Brad tafoya questions regarding Calculi Analysis contact [facility] at: [phone]. Performed By: #### 1 [id number] #### [facility] [address] [place] [address] Please Note: Comment Invalid Interpretation Code [facility] Comment on above: Result Comment: Calc dory report will follow via computer, mail or privacy specialist delivery. Performed By: #### 1 [id number] #### [facility] [address] [place] [address] Size (Stone) [Entitic vol] 3x3 Invalid Interpretation Code [facility] Comment on above: Result Comment: Mult iple pieces received. Dimensions of the largest piece reported. Performed By: #### 1 [id number] #### [facility] [address] [place] [address] Specimen source subject Nom Comment Invalid Interpretation Code [facility] Comment on above: Result Comment: Not provided Performed By: #### 1 [id number] #### [facility] [address] [place] [address] Stone Photo Comment Invalid Interpretation Code [facility] Comment on above: Result Comment: Phot ograph will follow under a separate cover Performed By: #### 1 [id number] #### [facility] [address] [place] [address] Weight (Stone) 8 mg Invalid Interpretation Code [facility] Comment on above: Performed By: #### 1 [id number] #### [facility] [address] [place] [address] [employer]son 01-26-2023 Forms [id number] #1.00CD:127 Favian [facility] Patient Educationon 01-27-20 23 Patient [...] Spinach (cooked), rhubarb, beets, sweet potatoes, and Kuwaiti chard. ? Peanuts. ? Potato chips, english fries, and baked potatoes with skin on. ? Nuts and nut products. ? Chocolate. ? If you regularly take a diuretic medicine, make sure to eat at least 1 or 2 servings of fruits or vegetables that are high in potassium each day. These include: ? Avocado. ? Banana. ? Graves, prune, carrot, or tomato juice. ? Baked [...] fish oil, or vitamin B6. ? Take ilcu-dnl-eoijjry and prescription medicines only as told by your health care provider. These include supplements. What foods should I limit? Limit your in (more content not included)... Normal [facility] RAD - MISCon 01-26-2023 RAD - MISC [id number] #1.00CD:127 Normal [facility] Screenson 01-26-2023 Screens [id number] #1.00CD:127 Normal [facility] Urology Office/Clinic Noteon 01-26-2023 Urology Office/Clinic Note Chief Complaint kidney stones HPI Staff Pt is a new pt, never before seen in our office. Here today due to kidney stones. [place] [facility] 12/27/22 due to Rt flank pain [...] for this patient from Dr. Herron @ [facility]. I have reviewed and verified the staff [...] Pt had gastric bypass in 2016 in [place]. Has had diarrhea since she had her [...] Follow-up With When Contact Information Aram RUSSELL, KAITLYNN Caballero, JANELLE In 6 months Additional Instructions: w/ KUB [...] Nitrite Uri (more content not included)... Normal [facility] Comment on above: Result Comment: Elec tronically Signed By: Alyson Chiu MD\.br\Date and Time Signed: 01/26/23 21:46 EDT\.br\Electronically Co-Signed By: Ewa Valentin\.br\Date and Time Co-Signed: 01/26/23 10:54 EDT ED Note-Physicianon 01-24-20 ED Note-Physician [id number]#1.00CD:127 Normal [facility] Lab Reportson 01-23-2023 Lab Reports [id number] 0#[id number]:127 [facility] RAD - CT Reporton 01-23-2023 RAD - CT Report [id number] [id number]:127 Normal [facility] CBC AUTO DIFFon 12-28-2022 BASO # 0.0 103/ul Normal 0.0-0.1 [facility] Comment on above: Performed By: #### F ERR, FETIBC #### [facility] [address] [place] [address] Dr. Michele Obrien Basophils/100 WBC (Bld) 0.5 % Normal 0.2-2.0 [facility] Comment on above: Performed By: #### F ERR, FETIBC #### [facility] [address] [address] [address] Michele Obrien EO # 0.2 103/ul Normal 0.0-0.7 [facility] Comment on above: Performed By: #### F ERR, FETIBC #### [facility] [address] [address] [address] Michele Obrien Eosinophils/100 WBC (Bld) 2.6 % Normal 0.9-7.0 [facility] Comment on above: Performed By: #### F ERR, FETIBC #### [facility] [address] [place] [address] Dr. Michele Obrien Erythrocyte distribution width (RBC) [Ratio] 19.1 % Critically high 11.0-15.0 [facility] Comment on above: Performed By: #### F ERR, FETIBC #### [facility] [address] [place] [address] Dr. Michele Obrien Hematocrit (Bld) [Volume fraction] 37.6 % Normal 36.0-48.0 [facility] Comment on above: Performed By: #### F ERR, FETIBC #### [facility] [address] [place] [address] Dr. Michele Obrien Hemoglobin (Bld) [Mass/Vol] 11.9 g/dL Critically low 12.0-16.0 [facility] Comment on above: Performed By: #### F ERR, FETIBC #### [facility] [address] [place] [address] Dr. Michele Obrien IG # 0.03 10e3/ul Normal 0.00-0.03 [facility] Comment on above: Performed By: #### F ERR, FETIBC #### [facility] [address] [place] [address] Dr. Michele Obrien IG % 0.3 % Normal 0.0-0.5 [facility] Comment on above: Performed By: #### F ERR, FETIBC #### [facility] [address] [place] [address] Dr. Michele Obrien LYMPH # 1.6 103/ul Normal 1.2-3.8 [facility] Comment on above: Performed By: #### F ERR, FETIBC #### [facility] [address] [place] [address] Dr. Michele Obrien Lymphocytes/100 WBC (Bld) 18.4 % Critically low 20.5-60.0 [facility] Comment on above: Performed By: #### F ERR, FETIBC #### [facility] [address] [place] [address] Dr. Michele Obrien MANUAL DIFF REQ NO Normal [facility] Comment on above: Performed By: #### F ERR, FETIBC #### [facility] [address] [place] [address] Dr. Michele Obrien MCH (RBC) [Entitic mass] 23.7 pg Critically low 26.7-34.0 [facility] Comment on above: Performed By: #### F ERR, FETIBC #### [facility] [address] [place] [address] Dr. Michele Obrien MCHC (RBC) [Mass/Vol] 31.6 g/dL Normal 29.9-35.2 [facility] Comment on above: Performed By: #### F ERR, FETIBC #### [facility] [address] [place] [address] Dr. Michele Obrien MCV (RBC) [Entitic vol] 74.9 fL Critically low 81.0-99.0 [facility] Comment on above: Performed By: #### F ERR, FETIBC #### [facility] [address] [place] [address] Dr. Michele Obrien MONO # 0.5 103/ul Normal 0.3-0.8 [facility] Comment on above: Performed By: #### F ERR, FETIBC #### [facility] [address] [place] [address] Dr. Michele Obrien Monocytes/100 WBC (Bld) 5.9 % Normal 1.7-12.0 [facility] Comment on above: Performed By: #### F ERR, FETIBC #### [facility] [address] [place] [address] Dr. Michele Obrien NEUT # 6.4 103/ul Normal 1.4-6.5 [facility] Comment on above: Performed By: #### F ERR, FETIBC #### [facility] [address] [place] [address] Dr. Michele Obrien Neutrophils/100 WBC (Bld) 72.3 % Normal 43.0-75.0 [facility] Comment on above: Performed By: #### F ERR, FETIBC #### [facility] [address] [place] [address] Dr. Michele Obrien Platelet mean volume (Bld) [Entitic vol] 10.2 fL Normal 9.5-13.5 [facility] Comment on above: Performed By: #### F ERR, FETIBC #### [facility] [address] [address] [address] Michele Obrien PLT 243 103/ul Normal 150-450 [facility] Comment on above: Performed By: #### F ERR, FETIBC #### [facility] [address] [address] [address] Michele Obrien RBC 5.02 106/ul Normal 4.20-5.40 [facility] Comment on above: Performed By: #### F ERR, FETIBC #### [facility] [address] [address] [address] Michele Obrien WBC 8.9 103/ul Normal 4.0-11.0 [facility] Comment on above: Performed By: #### F ERR, FETIBC #### [facility] [address] [address] ABD/PELVIS WO CONon [...] ALEXA WHITE Date: 2022-12-28 02:25 Normal [facility] ER URINE PROFILEon 3 Bilirubin Ql (U) Negative Normal NEGATIVE [facility] Comment on above: Performed By: #### H IV12 #### [facility] [address] [address] [address] Michele Obrien Clarity (U) CLEAR Normal CLEAR [facility] Comment on above: Performed By: #### H IV12 #### [facility] [address] [address] [address] Michele Obrien Color (U) LT. YELLOW Normal YELLOW [facility] Comment on above: Performed By: #### H IV12 #### [facility] [address] [address] [address] Michele JACKSON A micrscopic examination will be performed if indicated. Normal [facility] Comment on above: Performed By: #### H IV12 #### [facility] [address] [place] [address] Dr. Michele Obrien Glucose Ql (U) Negative Normal NEGATIVE [facility] Comment on above: Performed By: #### H IV12 #### [facility] [address] [place] [address] Dr. Michele Obrien Hemoglobin Ql (U) MODERATE Abnormal NEGATIVE [facility] Comment on above: Performed By: #### H IV12 #### [facility] [address] [place] [address] Dr. Michele Obrien Ketones Ql (U) Negative Normal NEGATIVE [facility] Comment on above: Performed By: #### H IV12 #### [facility] [address] [address] [address] Michele Obrien LEUKOCYTES Negative Normal NEGATIVE [facility] Comment on above: Performed By: #### H IV12 #### [facility] [address] [place] [address] Dr. Michele Obrine Nitrite Ql (U) Negative Normal NEGATIVE [facility] Comment on above: Performed By: #### H IV12 #### [facility] [address] [place] [address] Dr. Michele Obrien pH (U) 5.5 [pH] Normal 5-9 [facility] Comment on above: Performed By: #### H IV12 #### [facility] [address] [address] [address] Michele Obrien SPEC GRAVITY 1.025 Normal 1.005-<=1.025 [facility] Comment on above: Performed By: #### H IV12 #### [facility] [address] [place] [address] Dr. Michele Obrien UA PROTEIN Negative Normal NEGATIVE/ TRACE [facility] Comment on above: Performed By: #### H IV12 #### [facility] [address] [address] [address] Michele Obrien UR MICRO IND INDICATED Normal [facility] Comment on above: Performed By: #### H IV12 #### [facility] [address] [place] [address] Dr. Michele Obrien Urobilinogen Qn (U) 0.2 {Ijeoma'U}/dL Normal 0.2 - 1. 0 [facility] Comment on above: Performed By: #### H IV12 #### [facility] [address] [place] [address] Dr. Michele Obrien PREG HCG QUALon 12-28-2022 , QUAL Negative Normal NEGATIVE [facility] Comment on above: Performed By: #### P REG #### [facility] [address] [place] [address] Dr. Michele Obrien PROF 14(COMP METB)on 023 Albumin [Mass/Vol] 3.4 g/dL Normal 3.4-5.0 [facility] Comment on above: Performed By: #### C MP #### [facility] [address] [place] [address] Dr. Michele Obrien Albumin/Globulin [Mass ratio] 1.1 {ratio} Normal [facility] Comment on above: Performed By: #### C MP #### [facility] [address] [place] [address] Dr. Michele Obrien ALP [Catalytic activity/Vol] 73 U/L Normal 46-116 [facility] Comment on above: Performed By: #### C MP #### [facility] [address] [address] [address] Michele Obrien ALT [Catalytic activity/Vol] 18 U/L Normal 14-59 [facility] Comment on above: Performed By: #### C MP #### [facility] [address] [address] [address] Michele Obrien Anion gap [Moles/Vol] 11.9 mmol/L Normal [facility] Comment on above: Performed By: #### C MP #### [facility] [address] [address] [address] Michele Obrien AST [Catalytic activity/Vol] 13 U/L Critically low 15-37 [facility] Comment on above: Performed By: #### C MP #### [facility] [address] [place] [address] Dr. Michele Obrien Bilirubin [Mass/Vol] 0.1 mg/dL Critically low 0.2-1.0 [facility] Comment on above: Performed By: #### C MP #### [facility] [address] [address] [address] Michele Obrien Calcium [Mass/Vol] 8.6 mg/dL Normal 8.5-10.1 [facility] Comment on above: Performed By: #### C MP #### [facility] [address] [address] [address] Michele Obrien Chloride [Moles/Vol] 105 mmol/L Normal 98-107 [facility] Comment on above: Performed By: #### C MP #### [facility] [address] [address] [address] Michele Obrien CO2 [Moles/Vol] 26.7 mmol/L Normal 21.0-32.0 [facility] Comment on above: Performed By: #### C MP #### [facility] [address] [address] [address] Michele Obrien Creatinine [Mass/Vol] 0.85 mg/dL Normal 0.55-1.02 [facility] Comment on above: Performed By: #### C MP #### [facility] [address] [place] [address] Dr. Michele Obrien EGFR-AF STATELESS >60 Normal >=60 [facility] Comment on above: Performed By: #### C MP #### [facility] [address] [place] [address] Dr. Michele Obrien EGFR-NON AF STATELESS >60 Normal >=60 [facility] Comment on above: Performed By: #### C MP #### [facility] [address] [address] [address] Michele Obrien Globulin (S) [Mass/Vol] 3.1 g/dL Normal [facility] Comment on above: Performed By: #### C MP #### [facility] [address] [place] [address] Dr. Michele Obrien Glucose [Mass/Vol] 123 mg/dL Critically high 74-106 [facility] Comment on above: Performed By: #### C MP #### [facility] [address] [place] [address] Dr. Michele Obrien Potassium [Moles/Vol] 3.6 mmol/L Normal 3.5-5.1 [facility] Comment on above: Performed By: #### C MP #### [facility] [address] [place] [address] Dr. Michele Obrien Protein [Mass/Vol] 6.5 g/dL Normal 6.4-8.2 [facility] Comment on above: Performed By: #### C MP #### [facility] [address] [place] [address] Dr. Michele Obrien Sodium [Moles/Vol] 140 mmol/L Normal 136-145 [facility] Comment on above: Performed By: #### C MP #### [facility] [address] [place] [address] Dr. Michele Obrien Urea nitrogen [Mass/Vol] 14.0 mg/dL Normal 7.0-18.0 [facility] Comment on above: Performed By: #### C MP #### [facility] [address] [place] [address] Dr. Michele Obrien Urea nitrogen/Creatinine [Mass ratio] 16.5 mg/mg Normal [facility] Comment on above: Performed By: #### C MP #### [facility] [address] [place] [address] Dr. Michele Obrien URINE MICROSCOPIC ONLYon BACTERIA TRACE Abnormal NONE SEEN [facility] Comment on above: Performed By: #### H IV12 #### [facility] [address] [place] [address] Dr. Michele Obrien Bacteria identified Cx Nom (U) NOT INDICATED Normal [facility] Comment on above: Performed By: #### H IV12 #### [facility] [address] [place] [address] Dr. Michele Obrien CAST NONE SEEN Normal NONE SEEN [facility] Comment on above: Performed By: #### H IV12 #### [facility] [address] [place] [address] Dr. Michele Obrien Crystals LM Nom (Urine sed) NONE SEEN Normal NONE SEEN [facility] Comment on above: Performed By: #### H IV12 #### [facility] [address] [place] [address] Dr. Michele Obrien Epithelial cells LM Ql (Urine sed) FEW Abnormal NONE SEEN /RARE [facility] Comment on above: Performed By: #### H IV12 #### [facility] [address] [place] [address] Dr. Michele Obrien MUCOUS TRACE Abnormal NONE SEEN [facility] Comment on above: Performed By: #### H IV12 #### [facility] [address] [place] [address] Dr. Michele Obrien RBC 20-50 Abnormal 0-2 [facility] Comment on above: Performed By: #### H IV12 #### [facility] [address] [place] [address] Dr. Michele Obrien WBC 0-2 Abnormal NONE SEEN [facility] Comment on above: Performed By: #### H IV12 #### [facility] [address] [place] [address] Dr. Michele Obrien HIV 1 AND 2 WITH REFLEXon HIV Screen 4th Generation wRfx Non-Reactive Normal Non Reactive [facility] Comment on above: Result Comment: HIV Negative HIV-1/HIV-2 antibodies and HIV-1 p24 antigen were NOT detected. There is no laboratory evidence of HIV infection. Performed By: #### H IV12 #### [facility] [address] [place] [address] Dr. Michele Obrien FERRITINon 10-16-2022 Ferritin [Mass/Vol] 6.0 ng/mL Critically low 6.2-137.0 [facility] Comment on above: Performed By: #### F ERR, FETIBC #### [facility] [address] [place] [address] Dr. Michele Obrien FREE T3on 10-16-2022 FREE T3 1.87 pg/mlL Critically low 2.18-3.98 [facility] Comment on above: Performed By: #### H IV12 #### [facility] [address] [place] [address] Dr. Michele Obrien HEMOGRAM AND PLATELon 2022 Hematocrit (Bld) [Volume fraction] 35.7 % Critically low 36.0-48.0 [facility] Comment on above: Performed By: #### H H #### [facility] [address] [place] [address] Dr. Michele Obrien Hemoglobin (Bld) [Mass/Vol] 10.4 g/dL Critically low 12.0-16.0 [facility] Comment on above: Performed By: #### H H #### [facility] [address] [place] [address] Dr. Michele Obrien MCH (RBC) [Entitic mass] 20.0 pg Critically low 26.7-34.0 [facility] Comment on above: Performed By: #### H H #### [facility] [address] [place] [address] Dr. Michele Obrien MCHC (RBC) [Mass/Vol] 29.1 g/dL Critically low 29.9-35.2 [facility] Comment on above: Performed By: #### H H #### [facility] [address] [place] [address] Dr. Michele Obrien MCV (RBC) [Entitic vol] 68.5 fL Critically low 81.0-99.0 [facility] Comment on above: Performed By: #### H H #### [facility] [address] [place] [address] Dr. Michele Obrien PLT 241 103/ul Normal 150-450 [facility] Comment on above: Performed By: #### H H #### [facility] [address] [place] [address] Dr. Michele Obrien RBC 5.21 106/ul Normal 4.20-5.40 [facility] Comment on above: Performed By: #### H H #### [facility] [address] [place] [address] Dr. Michele Obrien WBC 6.9 103/ul Normal 4.0-11.0 [facility] Comment on above: Performed By: #### H H #### [facility] [address] [place] [address] Dr. Michele Obrien IRON AND TIBCon 10-16-2022 % SATURATION 4.5 % Normal [facility] Comment on above: Performed By: #### F ERR, FETIBC #### [facility] [address] [place] [address] Dr. Michele Obrien Iron [Mass/Vol] 18.0 ug/dL Critically low 50.0-170.0 [facility] Comment on above: Performed By: #### F ERR, FETIBC #### [facility] [address] [place] [address] Dr. Michele Obrien TIBC DIRECT 396.0 ug/dL Normal 250.0-450.0 [facility] Comment on above: Performed By: #### F ERR, FETIBC #### [facility] [address] [place] [address] Dr. Michele Obrien TSH W/ REFLEX TO FT4on 10-16 TSH 3.577 uIU/mL Normal 0.358-3.740 [facility] Comment on above: Performed By: #### H IV12 #### [facility] [address] [place] [address] Dr. Michele Obrien VITAMIN Con 09-03-2022 Vitamin C 0.2 mg/dL Critically low 0.4-2.0 [facility] Comment on above: Result Comment: Li min C deficiency is generally defined as plasma or serum concentrations less than 0.2 mg/dL and levels between 0.2 and 0.4 mg/dL are considered low. Performed By: #### F ERR, FETIBC #### [facility] [address] [place] [address] Dr. Michele Obrien VITAMIN Aon 09-01-2022 Vitamin A 33.6 ug/dL Normal 18.9-57.3 [facility] Comment on above: Result Comment: Refe rence intervals for vitamin A determined from [facility] internal studies. Individuals with vitamin A less than 20 ug/dL are considered vitamin A deficient and those with serum concentrations less than 10 ug/dL are considered severely deficient. . This test was developed and its performance characteristics determined by [facility]. It has not been cleared or approved by the Food and Drug Administration. Performed By: #### V ITAMA #### [facility] [address] [place] [address] Dr. Michele Obrien VITAMIN [place] 09-01-2022 Vitamin E (Alpha T) 11.9 mg/L Normal 5.9-19.4 [facility] Comment on above: Performed By: #### V ITAE #### [facility] [address] [place] [address] Dr. Michele Obrien Vitamin E (Gamma T) 1.5 mg/L Normal 0.7-4.9 [facility] Comment on above: Result Comment: Refe rence intervals for alpha and gamma-tocopherol determined from National Health and Nutrition Examination Survey, 1741-0327. Individuals with alpha-tocopherol levels less than 5.0 mg/L are considered vitamin E deficient. Performed By: #### V ITAE #### [facility] [address] [place] [address] Dr. Michele Obrien VITAMIN [place] 08-26-2022 Vitamin K1 0.24 ng/mL Normal 0.10-2.20 [facility] Comment on above: Performed By: #### F ERR, FETIBC #### [facility] [address] [place] [address] Dr. Michele Obrien SELENIUM, PLASMAon Selenium, Serum/Plasma 110 ug/L Normal 93-198 [facility] Comment on above: Performed By: #### H IV12 #### [facility] [address] [place] [address] Dr. Michele Obrien VITAMIN B1 (THIAMINE)on 08-02 Vit. B1, Whole Blood 126.2 nmol/L Normal 66.5-200.0 [facility] Comment on above: Performed By: #### F ERR, FETIBC #### [facility] [address] [place] [address] Dr. Michele Obrien ZINC SERUM OR PLASMAon 08-23 Zinc, Plasma or Serum 69 ug/dL Normal 44-115 [facility] Comment on above: Result Comment: Dete ction Limit = 5 Performed By: #### H IV12 #### [facility] [facility] [address] [place] [address] Dr. Michele Obrien FERRITINon 08-20-2022 Ferritin [Mass/Vol] 5.0 ng/mL Critically low 6.2-137.0 [facility] Comment on above: Performed By: #### F ERR, FETIBC #### [facility] [address] [place] [address] Dr. Michele Obrien FREE T4on 08-20-2022 Free T4 [Mass/Vol] 1.01 ng/dL Normal 0.76-1.46 [facility] Comment on above: Performed By: #### H IV12 #### [facility] [address] [place] [address] Dr. Michele Obrien GLYCOHEMOGLOBIN A1Con 2022 ADA RECOMMENDATION SEE BELOW Normal [facility] Comment on above: Result Comment: ADA RECOMMENDED LIMIT 4.0 - 6.0 ADA THERAPEUTIC TARGET < 7.0 ACTION SUGGESTED > 7.0 Performed By: #### H IV12 #### [facility] [address] [place] [address] Dr. Michele Obrien Glucose [Mass/Vol] 80 mg/dL Normal [facility] Comment on above: Performed By: #### H IV12 #### [facility] [address] [place] [address] Dr. Michele Obrien HbA1c (Bld) [Mass fraction] 4.4 % Critically low 4.5-6.2 [facility] Comment on above: Performed By: #### H IV12 #### [facility] [address] [place] [address] Dr. Michele Obrien HEMOGRAM AND PLATELon 2022 Hematocrit (Bld) [Volume fraction] 29.3 % Critically low 36.0-48.0 [facility] Comment on above: Performed By: #### H IV12 #### [facility] [address] [place] [address] Dr. Michele Obrien Hemoglobin (Bld) [Mass/Vol] 9.3 g/dL Critically low 12.0-16.0 [facility] Comment on above: Performed By: #### H IV12 #### [facility] [address] [place] [address] Dr. Michele Obrien MCH (RBC) [Entitic mass] 20.1 pg Critically low 26.7-34.0 [facility] Comment on above: Performed By: #### H IV12 #### [facility] [address] [place] [address] Dr. Michele Obrien MCHC (RBC) [Mass/Vol] 31.7 g/dL Normal 29.9-35.2 [facility] Comment on above: Performed By: #### H IV12 #### [facility] [address] [place] [address] Dr. Michele Obrien MCV (RBC) [Entitic vol] 63.4 fL Critically low 81.0-99.0 [facility] Comment on above: Performed By: #### H IV12 #### [facility] [address] [place] [address] Dr. Michele Obrien PLT 213 103/ul Normal 150-450 [facility] Comment on above: Performed By: #### H IV12 #### [facility] [address] [address] [address] Michele Obrien RBC 4.62 106/ul Normal 4.20-5.40 [facility] Comment on above: Performed By: #### H IV12 #### [facility] [address] [place] [address] Dr. Michele Obrien WBC 5.8 103/ul Normal 4.0-11.0 [facility] Comment on above: Performed By: #### H IV12 #### [facility] [address] [place] [address] Dr. Michele Obrien IRON AND TIBCon 08-20-2022 % SATURATION 6.5 % Normal [facility] Comment on above: Performed By: #### F ERR, FETIBC #### [facility] [address] [place] [address] Dr. Michele Obrien Iron [Mass/Vol] 22.0 ug/dL Critically low 50.0-170.0 [facility] Comment on above: Performed By: #### F ERR, FETIBC #### [facility] [address] [place] [address] Dr. Michele Obrien TIBC DIRECT 340.0 ug/dL Normal 250.0-450.0 [facility] Comment on above: Performed By: #### F ERR, FETIBC #### [facility] [address] [place] [address] Dr. Michele Obrien LIPID PROFILEon 08-20-2022 CHOL-HDL RATIO NORM SEE BELOW Normal [facility] Comment on above: Result Comment: 3.3 - 4.4 LOW RISK 4.4 - 7.1 AVERAGE RISK 7.1 - 11.0 MODERATE RISK >11.0 HIGH RISK Performed By: #### F ERR, FETIBC #### [facility] [address] [place] [address] Dr. Michele Obrien Cholesterol [Mass/Vol] 146 mg/dL Normal <=200 [facility] Comment on above: Performed By: #### F ERR, FETIBC #### [facility] [address] [place] [address] Dr. Michele Obrien Cholesterol in HDL [Mass/Vol] 58 mg/dL Normal 40-60 [facility] Comment on above: Performed By: #### F ERR, FETIBC #### [facility] [address] [address] [address] Michele Obrien Cholesterol in LDL [Mass/Vol] 66.8 mg/dL Normal [facility] Comment on above: Performed By: #### F ERR, FETIBC #### [facility] [address] [address] [address] Michele Obrien Cholesterol.total/Ch olesterol in HDL [Mass ratio] 2.5 {ratio} Normal [facility] Comment on above: Performed By: #### F ERR, FETIBC #### [facility] [address] [address] [address] Michele Obrien HDL NORMAL > or = 60 mg/dl - LOW CARDIOVASCULAR RISK <40 mg/dl - HIGH CARDIOVASCULAR RISK Normal [facility] Comment on above: Performed By: #### F ERR, FETIBC #### [facility] [address] [address] [address] Michele Obrien LDL CALC NORMAL SEE BELOW Normal [facility] Comment on above: Result Comment: <100 mg/dl OPTIMAL 100 - 129 mg/dl NEAR OR ABOVE OPTIMAL 130 - 159 mg/dl BORDERLINE HIGH 160 - 189 mg/dl HIGH >190 mg/dl VERY HIGH Performed By: #### F ERR, FETIBC #### [facility] [address] [address] [address] Michele Obrien Triglyceride [Mass/Vol] 106 mg/dL Normal <=150 [facility] Comment on above: Performed By: #### F ERR, FETIBC #### [facility] [address] [address] [address] Michele Obrien VLDL CALC 21.2 mg/dL Normal [facility] Comment on above: Performed By: #### F ERR, FETIBC #### [facility] [address] [address] [address] Michele Obrien PROF 14(COMP METB)on 023 Albumin [Mass/Vol] 3.5 g/dL Normal 3.4-5.0 [facility] Comment on above: Performed By: #### F ERR, FETIBC #### [facility] [address] [place] [address] Dr. Michele Obrien Albumin/Globulin [Mass ratio] 1.2 {ratio} Normal [facility] Comment on above: Performed By: #### F ERR, FETIBC #### [facility] [address] [address] [address] Michele Obrien ALP [Catalytic activity/Vol] 76 U/L Normal 46-116 [facility] Comment on above: Performed By: #### F ERR, FETIBC #### [facility] [address] [place] [address] Dr. Michele Obrien ALT [Catalytic activity/Vol] 16 U/L Normal 14-59 [facility] Comment on above: Performed By: #### F ERR, FETIBC #### [facility] [address] [place] [address] Dr. Michele Obrien Anion gap [Moles/Vol] 10.0 mmol/L Normal [facility] Comment on above: Performed By: #### F ERR, FETIBC #### [facility] [address] [place] [address] Dr. Michele Obrien AST [Catalytic activity/Vol] 16 U/L Normal 15-37 [facility] Comment on above: Performed By: #### F ERR, FETIBC #### [facility] [address] [place] [address] Dr. Michele Obrien Bilirubin [Mass/Vol] 0.3 mg/dL Normal 0.2-1.0 [facility] Comment on above: Performed By: #### F ERR, FETIBC #### [facility] [address] [place] [address] Dr. Michele Obrein Calcium [Mass/Vol] 8.5 mg/dL Normal 8.5-10.1 [facility] Comment on above: Performed By: #### F ERR, FETIBC #### [facility] [address] [place] [address] Dr. Michele Obrien Chloride [Moles/Vol] 106 mmol/L Normal 98-107 [facility] Comment on above: Performed By: #### F ERR, FETIBC #### [facility] [address] [place] [address] Dr. Michele Obrien CO2 [Moles/Vol] 30.8 mmol/L Normal 21.0-32.0 [facility] Comment on above: Performed By: #### F ERR, FETIBC #### [facility] [address] [address] [address] Michele Obrien Creatinine [Mass/Vol] 0.68 mg/dL Normal 0.55-1.02 [facility] Comment on above: Performed By: #### F ERR, FETIBC #### [facility] [address] [place] [address] Dr. Michele Obrien EGFR-AF STATELESS >60 Normal >=60 [facility] Comment on above: Performed By: #### F ERR, FETIBC #### [facility] [address] [place] [address] Dr. Michele Obrien EGFR-NON AF STATELESS >60 Normal >=60 [facility] Comment on above: Performed By: #### F ERR, FETIBC #### [facility] [address] [place] [address] Dr. Michele Obrien Globulin (S) [Mass/Vol] 2.8 g/dL Normal [facility] Comment on above: Performed By: #### F ERR, FETIBC #### [facility] [address] [place] [address] Dr. Michele Obrien Glucose [Mass/Vol] 77 mg/dL Normal 74-106 [facility] Comment on above: Performed By: #### F ERR, FETIBC #### [facility] [address] [place] [address] Dr. Michele Obrien Potassium [Moles/Vol] 3.8 mmol/L Normal 3.5-5.1 [facility] Comment on above: Performed By: #### F ERR, FETIBC #### [facility] [address] [place] [address] Dr. Michele Obrien Protein [Mass/Vol] 6.3 g/dL Critically low 6.4-8.2 [facility] Comment on above: Performed By: #### F ERR, FETIBC #### [facility] [address] [place] [address] Dr. Michele Obrien Sodium [Moles/Vol] 143 mmol/L Normal 136-145 [facility] Comment on above: Performed By: #### F ERR, FETIBC #### [facility] [address] [place] [address] Dr. Michele Obrien Urea nitrogen [Mass/Vol] 10.0 mg/dL Normal 7.0-18.0 [facility] Comment on above: Performed By: #### F ERR, FETIBC #### [facility] [address] [place] [address] Dr. Michele Obrien Urea nitrogen/Creatinine [Mass ratio] 14.7 mg/mg Normal [facility] Comment on above: Performed By: #### F ERR, FETIBC #### [facility] [address] [place] [address] Dr. Michele Obrien TSHon 08-20-2022 TSH 4.302 uIU/mL Critically high 0.358-3.740 [facility] Comment on above: Performed By: #### F ERR, FETIBC #### [facility] [address] [place] [address] Dr. Michele Obrien VIT B12 AND FOLATEon 023 Cobalamin (Vitamin B12) [Mass/Vol] 433.0 pg/mL Normal 193.0-986.0 [facility] Comment on above: Performed By: #### B 12FOL, VITAD #### [facility] [address] [place] [address] Dr. Michele Obrien FOLATE 18.00 ng/mL Normal 8.60-58.90 [facility] Comment on above: Performed By: #### B 12FOL, VITAD #### [facility] [address] [place] [address] Dr. Michele Obrien VITAMIN D 25 OHon 08-20-2022 VIT D 25-OH 33.4 ng/mL Normal [facility] Comment on above: Performed By: #### B 12FOL, VITAD #### [facility] [address] [place] [address] Dr. Michele Obrien VIT D RANGES SEE BELOW Normal [facility] Comment on above: Result Comment: <20 ng/mL Vit D deficient 20 - <30 ng/mL Vit D insufficient 30 - 100 ng/mL Vit D sufficient >100 ng/mL Potential Toxicity Performed By: #### B 12FOL, VITAD #### [facility] [address] [place], [place] [address] Dr. Michele Obrien Vital Signs Date Time Vital Sign Value Performing Clinician Facility 09-22-2023 09:42-0500 Body mass index (BMI) [Ratio] 44.85 kg/m2 Héctor Aguilar MD Work Phone: [facility] 09-22-2023 09:42-0500 Body weight 141.79 kg Héctor Aguilar MD Work Phone: [facility] 09-22-2023 09:42-0500 Diastolic blood pressure 74 mm[Hg] Héctor Aguilar MD Work Phone: [facility] 09-22-2023 09:42-0500 Heart rate 82 /min Héctor Aguilar MD Work Phone: [facility] 09-22-2023 09:42-0500 Systolic blood pressure 123 mm[Hg] Héctor Aguilar MD Work Phone: [facility] 09-15-2023 11:30-0500 Body mass index (BMI) [Ratio] 43.52 kg/m2 Kassandra ALBERTO Work Phone: [facility] 09-15-2023 11:30-0500 Body weight 141.52 kg Kassandra ALBERTO Work Phone: [facility] 09-15-2023 11:30-0500 Diastolic blood pressure 80 mm[Hg] Kassandra ALBERTO Work Phone: [facility] 09-15-2023 11:30-0500 Systolic blood pressure 130 mm[Hg] Kassandra ALBERTO Work Phone: [facility] 05-19-2023 15:30-0400 Body weight 128.05 kg Denys Landa Other [facility] Other 05-19-2023 15:30-0400 Diastolic blood pressure 86 mm[Hg] Denys Landa Other [facility] Other 05-19-2023 15:30-0400 Systolic blood pressure 127 mm[Hg] Denys Landa Other [facility] Other 03-15-2023 10:48-0400 Diastolic blood pressure 80 mm[Hg] [employer] Wilber Shammo Work Phone: [facility] 03-15-2023 10:48-0400 Heart rate 63 /min [employer] Wilber Shammo Work Phone: [facility] 03-15-2023 10:48-0400 Respiratory rate 16 /min [employer] Wilber Shammo Work Phone: [facility] 03-15-2023 10:48-0400 SaO2% (BldA) [Mass fraction] 99 % [employer] Wilber Shammo Work Phone: [facility] 03-15-2023 10:48-0400 Systolic blood pressure 126 mm[Hg] [employer] Wilber Shammo Work Phone: [facility] 03-15-2023 08:43-0400 Body height 180.34 cm [employer] Wilber Shammo Work Phone: [facility] 03-15-2023 08:43-0400 Body temperature 98.2 [degF] [employer] Wilber Shammo Work Phone: [facility] 03-15-2023 08:43-0400 Body weight 129.27 kg [facility]- Wilber More Work Phone: [facility] 01-17-2023 10:00-0400 Body weight 127.01 kg Denys Cordell Other [facility] Other 01-17-2023 10:00-0400 Diastolic blood pressure 85 mm[Hg] Denys Landa Other [facility] Other 01-17-2023 10:00-0400 Systolic blood pressure 125 mm[Hg] Denys Landa Other [facility] Other Encounters Encounter Date Encounter Type Care Provider Facility Start: 11-02-2023 End: 11-02-[address]AR [facility] Luisa pitleticia Start: 11-02-2023 End: 11-02-2023 Office outpatient visit 15 minutes Fred Chavez MD Work Phone: [facility] Comment on above: Essential hypertensi on affecting in second trimester (Primary Dx) Start: 10-31-2023 End: 10-31-2023 ambulatory KASSANDRA LINARES Not Available Start: 10-18-2023 End: 10-19-2023 ambulatory ADRIAN MIGUEL [facility] Start: 10-18-2023 Documentation procedure Fred Chavez MD Work Phone: [facility] Start: 10-13-2023 End: 10-13-2023 ambulatory ADRIAN MIGUEL Not Available Start: 09-22-2023 End: 09-23-2023 Orders Only Rossy Carrington RN [facility] Comment on above: Pre-existing essenti al hypertension during in second trimester (Primary Dx); Advanced maternal age in multigravida, second trimester; Hypothyroid in , antepartum Start: 09-22-2023 End: 09-22-2023 Office consultation new/estab patient 60 min Héctor Aguilar MD Work Phone: [facility] Comment on above: Essential hypertensi on affecting in second trimester (Primary Dx) Start: 09-15-2023 End: 09-15-2023 ambulatory KASSANDRA LINARES Not Available Start: 09-15-2023 End: 09-15-2023 flow sheet Kassandra ALBERTO Work Phone: [facility] Comment on above: Second trimester pre gnancy; Diabetes mellitus screening; 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); Hypothyroidism, unspecified type (CMS/HCC) Start: 08-24-2023 Chart abstracting Liz Bee MD Work Phone: [facility] Start: 08-19-2023 Telephone encounter Janae [facility] Start: 08-18-2023 End: 08-18-2023 ambulatory ADRIAN MIGUEL Not Available Start: 08-03-2023 ambulatory WILBER SHAMMO Facility:[facility] Start: 07-21-2023 End: 07-21-2023 ambulatory KASSANDRA LINARES Not Available Start: 06-13-2023 End: 06-13-2023 ambulatory ADRIAN PARIS Not Available Start: 05-19-2023 End: 05-19-2023 ambulatory Denys Landa Other [facility] Other Start: 05-19-2023 Office outpatient vi sit 15 minutes Denys Landa [facility] Gastroenter[facility] Start: 03-15-2023 End: 03-15-2023 ambulatory Denys Landa Facility:[facility] Start: 03-15-2023 End: 03-15-2023 Admission to same day surgery center [facility]- Wilber Shammo Work Phone: [facility] Work Phone: Start: 03-15-2023 End: 03-15-2023 ambulatory [facility]- Wilber T Shammo Work Phone: [facility] Work Phone: Start: 01-26-2023 End: 01-27-2023 ambulatory WILBER SHAMMO Facility:[facility] Start: 01-26-2023 End: 01-27-2023 ambulatory Alyson Chiu Facility:[facility] Start: 01-26-2023 End: 01-26-2023 Lab Drop off Alyson Chiu [facility] Start: 01-26-2023 End: 01-26-2023 Patient encounter procedure Alyson Chiu [facility] Start: 01-20-2023 ambulatory WILBER SHAMMO Facility:[facility] Start: 01-17-2023 End: 01-17-2023 ambulatory Denys Landa Other [facility] Other Start: 01-17-2023 Office outpatient ne w 45 minutes Denys Landa [facility] Gastroenter[facility] Start: 12-28-2022 End: 12-28-2022 ambulatory LUKE BOWENS . Facility: Start: 10-16-2022 End: 10-17-2022 ambulatory WILBER SHAMMO Facility: Start: 08-25-2022 Encounter for genera l adult medical examination without abnormal findings WILBER SHAMMO [facility] Start: 08-20-2022 End: 08-21-2022 ambulatory WILBER SHAMMO Facility: Start: 08-20-2022 End: 08-21-2022 Encounter for general adult medical examination without abnormal findings WILBER SHAMMO Facility: Procedures Date Procedure Procedure Detail Performing Clinician Start: 09-15-2023 Urnls dip stick/tablet rgnt non-auto w/o micrscp Kassandra ALBERTO Work Phone: Start: 06-08-2023 FREE CELL DNA (NON-[facility]) Not In System Ref Prov Start: 03-15-2023 Esophagogastroduodenoscopy [employer] Wilber Shammo Work Phone: Start: 08-01-2016 Appendectomy Alyson Chiu Start: 08-01-2016 Gastric sleeve Alyson Chiu Start: 08-01-2005 Cholecystectomy Alyson Chiu Arthroplasty of knee Alyson chamberlain Comment on above: Meniscus repair section Alyson Chiu Comment on above: x2 Plan of Treatment Date Care Activity Detail Author Start: 09-22-2024 Adult BMI Screening Adult BMI Screen ing [facility] Start: 09-22-2024 Tobacco Screening Tobacco Screening [facility] Start: 09-22-2024 End: 09-22-2024 US MFM with or without consult US MFM with or without consult Imaging Routine Pre-existing essential hypertension during in second trimester Advanced maternal age in multigravida, second trimester Hypothyroid in , antepartum Expected: 09/22/2024 (Approximate), Expires: 09/22/2024 [facility] Work Phone: Comment on above: Expected: 09/22/2024 (Approximate), Expires: 09/22/2024 Start: 04-01-2024 Influenza vaccination Influenza Vacc ine [facility] Start: 11-12-2023 Adult BMI Screening Adult BMI Screen ing [facility] Start: 11-02-2023 End: 11-02-2023 Telemedicine consultation with patient 11/02/2023 11:30 AM EDT Telemedicine [facility] [address] [place] [address] Fred Chavez MD [address] [place] [address] Héctor Aguilar MD [address] [facility] [place] [address] [facility] Start: 10-18-2023 End: 10-18-2023 Telemedicine consultation with patient 10/18/2023 1:30 PM EDT Telemedicine [facility] [address] [place] [id number] Fred Chavez MD [address] [place] [address] [facility] Start: 10-18-2023 End: 10-18-2023 Patient encounter procedure 10/18/2023 12:30 PM EDT Appointment [facility] - Ultrasound [address] [place] [id number] [facility] Start: 10-13-2023 End: 10-13-2023 Patient encounter procedure 10/13/2023 10:50 AM EDT Routine [facility] [address] [place] [address] Adrian Miguel, [address] [place] [address] [facility] Start: 09-15-2023 End: 09-15-2024 CBC panel - Blood by Automated count CBC Lab Routine Diabetes mellitus screening Expected: 09/15/2023 (Approximate), Expires: 09/15/2024 [facility] Work Phone: Comment on above: Expected: 09/15/2023 (Approximate), Expires: 09/15/2024 Start: 09-15-2023 End: 09-15-2024 Measurement of glucose 1 hour after glucose challenge for glucose tolerance test Glucose tolerance, 1 hour Lab Routine Diabetes mellitus screening Expected: 09/15/2023 (Approximate), Expires: 09/15/2024 [facility] Comment on above: Expected: 09/15/2023 (Approximate), Expires: 09/15/2024 Start: 09-15-2023 End: 09-15-2024 Thyrotropin [Units/volume] in Serum or Plasma TSH Lab Routine Hypothyroidism, unspecified type ([facility]/HCC) Expected: 09/15/2023 (Approximate), Expires: 09/15/2024 [facility] Comment on above: Expected: 09/15/2023 (Approximate), Expires: 09/15/2024 Start: 09-14-2023 End: 09-14-2023 Patient encounter procedure [facility] Start: 04-01-2023 Influenza vaccination Influenza Vacc ine [facility] Start: 03-15-2023 [facility] Start: 11-02-2007 Screening for malign ant neoplasm of cervix Pap Smear [facility] Start: 2005 DTaP,Tdap and Td Vaccines (1 - Tdap) DTaP,Tdap and Td Vaccines (1 - Tdap) [facility] Start: 2004 Adult BMI Follow Up Plan Adult BMI Follow Up Plan [facility] Start: 1998 Depression Screening Depression Scre ening [facility] Start: 1998 Tobacco Screening Tobacco Screening [facility] Hemoglobin A1c/Hemoglobin.total in Blood Hemoglobin A1c Lab Routine Diabetes mellitus screening Ordered: 09/15/2023 [facility] Comment on above: Ordered: 09/15/2023 Patient Education Hiatal hernia Diverticulosis [facility] Work Phone: Immunizations Immunization Date Immunization Notes Care Provider Alice calhoun 06-01-2022 influenza virus vaccine, unspecified formulation Alyson Aram [facility] Payers Date Payer Category Payer Self-pay 2022 [employer] ( and others) [id number] 2022 [employer] ( and others) [id number] 2022 [employer] ( and others) [id number] 1986 Unknown [id number] 1986 Unknown [id number] [id number] 1986 Unknown [id number] 2.16.840.1.335073.3.579.2.593 1986 Unknown [id number] 2.16.840.1.412257.3.579.2.727 1986 Unknown [id number] 2.16.840.1.229259.3.579.2.727 1986 Unknown [id number] 2.16.840.1.261755.3.579.2.727 1986 Unknown [id number] 2.16.840.1.522806.3.579.2.1286 1986 Unknown [id number] 2.16.840.1.448812.3.579.2.1259 1986 Unknown [id number] 2.16.840.1.409328.3.579.2.1259 1986 Unknown [id number] 2.16.840.1.838951.3.579.2.1259 1986 Unknown [id number] 2.16.840.1.949426.3.579.2.1259 1986 Unknown [id number] 2.16.840.1.004615.3.579.2.1259 1986 Unknown [id number] 2.16.840.1.930623.3.579.2.1259 1986 Unknown [id number] 2.16.840.1.865250.3.579.2.1286 1986 Unknown [id number] 2.16.840.1.052010.3.579.2.1286 1986 Unknown [id number] [id number] 1959 Department [facility] ( and others) [id number] Unknown [id number] Social History Date Type Detail Facility Start: 08-24-2023 End: 09-22-2023 Sex Assigned At [facility] Start: 01-26-2023 Tobacco smoking status Ex-smoker (finding) [facility] Start: 03-15-2023 Tobacco smoking status NHIS Smoker (finding) [facility] Start: 1985 Sex Assigned At Female [facility] Tobacco smoking stat us NHIS Tobacco smoking consumption unknown [facility] Start: 1985 Sex Assigned At Not on file [facility] Start: 01-03-2023 End: 08-24-2023 Tobacco smoking status MIIS Never smoked tobacco [facility] Start: 01-03-2023 End: 08-24-2023 Tobacco use and exposure Smokeless tobacco non-user [facility] Start: 08-24-2023 End: 09-22-2023 Alcohol intake Ex-drinker (finding) [facility] Start: 08-24-2023 End: 09-22-2023 History of Social function [facility] Start: 04-11-2023 [facility] How often to you hav e a drink containing alcohol? Monthly or less [facility] How many standard drinks containing alcohol do you have on a typical day? 1 or 2 [facility] How often do you hav e 6 or more drinks on 1 occasion? Never [facility] Start: 01-03-2023 Alcohol Comment caffeine: 1-2 cups per day [facility] Start: 01-05-2023 Gender identity Identifies as female gender (finding) [facility] Within the past 12 months we worried whether our food would run out before we got money to buy more. Never True [facility] Start: 11-02-2023 Sexual orientation Heterosexual (finding) [facility] Goals Date Patient Goal Desired Activity /State Personal health goal Functional Status Date Assessment Result Facility 01-26-2023 Functional Status No [facility] Clinical Notes 01-17-2023 to 11-02-2023 Héctor Aguilar MD - 11/02/2023 11:30 AM John Paul Chavez MD - 10/18/2023 2:24 PM Jorge Carrington RN - 09/22/2023 10:00 AM Gisela Aguilar MD - 09/22/2023 10:00 AM SHAHLA Corea Date & Type Note Facility 11-02-2023 History of Presen t illness Narrative REASON FOR TELEMEDICINE VIDEO OFFICE VISIT: 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 HISTORY OF PRESENT ILLNESS: Tiffani Allison is a pleasant 38 y.o. G 4p 2-0 1 2 at 31w2d due on Estimated Date of Delivery: 01/02/24 . has been complicated with 1. Maternal essential hypertension currently on medication. Patient is taking Norvasc 10 mg p.o. daily and metoprolol 100 XL mg p.o. daily 2. Maternal hypothyroidism with elevated TSH. Patient taking 150 mcg of Synthroid daily. 3. Maternal increased BMI currently on low-dose aspirin therapy. 4. History of 2 prior . 5. History of gastric sleeve procedure. Patient has lostmore than 100 lb Currently the patient has no complaints. The patient denies nausea, vomiting, abdominal pain, vaginal bleeding, SOB or chest pain. Patient Active Problem List Diagnosis Iron deficiency anemia, unspecified Essential hypertension affecting in second trimester ALLERGIES: Allergies Allergen Reactions Penicillins Anaphylaxis Topiramate CURRENT MEDICATIONS: Current Outpatient Medications: amLODIPine (NORVASC) 10 mg tablet, Take 1 tablet (10 mg total) by mouth in the morning., Disp: , Rfl: aspirin 81 mg, Take 1 tablet (81 mg total) by mouth in the morning., Disp: , Rfl: buPROPion XL (WELLBUTRIN XL) 150 mg 24 hr tablet, Take 1 tablet (150 mg total) by mouth in the morning., Disp: , Rfl: busPIRone (BUSPAR) 10 mg tablet, Take 1 tablet (10 mg total) by mouth in the morning and 1 tablet (10 mg total) before bedtime. (Patient not taking: Reported on 09/22/2023), Disp: , Rfl: chlorhexidine (PERIDEX) 0.12 % solution, TAKE 15 ML IN MOUTH & SWISH FOR 30 SECONDS THEN SPIT OUT TWICE DAILY FOR 20 DAYS (Patient not taking: Reported on 09/22/2023), Disp: , Rfl: diphenhydramine HCl (UNISOM, DIPHENHYDRAMINE, ORAL), Take 50 mg by mouth., Disp: , Rfl: escitalopram (LEXAPRO) 10 mg tablet, Take 1 tablet (10 mg total) by mouth in the morning., Disp: , Rfl: ferrous sulfate 325 (65 FE) mg EC tablet, Take 1 tablet (325 mg total) by mouth in the morning and 1 tablet (325 mg total) at noon and 1 tablet (325 mg total) in the evening. Take with meals. (Patient not taking: Reported on 09/22/2023), Disp: , Rfl: fluocinonide (LIDEX) 0.05 % external solution, APPLY TO THE AFFECTED AREA(S) EVERY OTHER DAY, Disp: , Rfl: hydrOXYzine (VISTARIL) 25 mg capsule, TAKE 1 CAPSULE BY MOUTH TWICE DAILY NEEDED (Patient not taking: Reported on 09/22/2023), Disp: , Rfl: levothyroxine (SYNTHROID, LEVOTHROID) 25 MCG tablet, Take 1 tablet (25 mcg total) by mouth in the morning., Disp: , Rfl: melatonin 1 mg tablet,chewable, Chew and swallow., Disp: , Rfl: metoprolol succinate XL (TOPROL XL) 100 mg 24 hr tablet, Take 1 tablet (100 mg total) by mouth in the morning., Disp: , Rfl: omeprazole (PriLOSEC) 40 mg capsule, Take 1 capsule (40 mg total) by mouth in the morning., Disp: , Rfl: sertraline (ZOLOFT) 100 mg tablet, Take 1 tablet (100 mg total) by mouth in the morning. (Patient not taking: Reported on 09/22/2023), Disp: , Rfl: SYNTHROID 137 mcg tablet, , Disp: , Rfl: Past Medical History: Diagnosis Date Anemia Anxiety Depression Hypertension Hypothyroidism Kidney stones Migraines Seizure ([facility]) REVIEW OF SYSTEMS: Head and Neck: Negative for any dizziness and headaches. Cardiovascular and Respiratory System: Denies any chest pain, shortness of breath, and coughing. Abdominal and System: Denies any abdominal pain, nausea, vomiting, vaginal bleeding, and vaginal discharge RECOMMENDATION: 1. Patient states she is having good blood pressure control and normal thyroid function test. 2. Continue serial growth ultrasounds and testing at her OB office. 3. Delivery at 38 weeks gestation at her local hospital. Patient interested in repeat with bilateral tubal ligation. 4. Patient does not have any future appointment scheduled with us 5. Please see original consultation letter for complete recommendations. Thank you for allowing me to participate in Tiffani vanegas. If there are any questions, please do not hesitate to call me. Sincerely, HÉCTOR AGUILAR MD Video Visit via Real-time Synchronous Audiovisual Provider Location: [facility] AT [address] [id number] Patient Location: Patient's home Patient Location Telephone Directory Deliverer: None Video Visit Consent Statement: I discussed risks, benefits, and alternatives of a real-time synchronous audiovisual consultation with the patient (and any accompanying persons) including the risks that the patient's personal health details and medical records will be discussed over real-time, synchronous, interactive video/audio/telecommunication technology, the visit will not be recorded without the express consent of both the provider and the patient, and that there are some limitations compared to pfop-to-[id number] evaluations. We elected to proceed. documented in this encounter [facility] 10-18-2023 History of Presen t illness Narrative Maternal- Medicine Patient had follow-up telehealth visit scheduled. At a satellite office she had ultrasound which will be read by 1 of my colleagues. The patient did not keep her appointment (we believe that she was uncertain she had a visit). Our office will reach out in arrange an un linked telehealth rescheduled visit. Fred Chavez MD Professor, [facility] Maternal Medicine (we called the patient ourselves and were not able to successfully connect with her) documented in this encounter [facility] 09-22-2023 History of Presen t illness Narrative Headache/epigastric pain/blurry vision/swelling? No Cramping/contractions? No Abnormal vaginal discharge? No Spotting/vaginal bleeding? No Loss of fluid like your water may have broken? No Cats in the home? No Do you change the litter box? N/A Flu vaccine? No Genetic testing done this here or other office? Yes Have you been seen here at [facility] in a previous ? No Recent ER visits or hospitalizations? No Bring blood sugar log or meter with you today? (Please bring them with you for every visit at [facility]) N/A Traveled outside the country in the past 6 month No Any concerns that you would like me to mention to the provider today? No REASON FOR CONSULTATION: Maternal essential hypertension. HISTORY OF PRESENT ILLNESS: Tiffani Allison is a pleasant 37 y.o. G 4p 2011. at 25w3d due on Estimated Date of Delivery: 01/02/24 . Patient was seen today due to the following 1. Maternal essential hypertension currently on medication. Patient is taking Norvasc 10 mg p.o. daily and metoprolol 100 XL mg p.o. daily 2. Maternal hypothyroidism with elevated TSH. Patient taking 150 mcg of Synthroid daily. 3. Maternal increased BMI currently on low-dose aspirin therapy. 4. History of 2 prior . 5. History of gastric sleeve procedure. Patient has lostmore than 100 lb. 6. Advanced maternal age with low risk cell free DNA testing. Currently the patient has no complaints. The patient denies nausea, vomiting, abdominal pain, vaginal bleeding, SOB or chest pain. Patient's PMH/PSH,SH,PSYCH Hx, MEDs, ALLERGIES, and ROS were all reviewed and updated in the appropriate sections. Patient Active Problem List Diagnosis Iron deficiency anemia, unspecified Essential hypertension affecting in second trimester Past Medical History: Diagnosis Date Anemia Anxiety Depression Hypertension Hypothyroidism Kidney stones Migraines Seizure ([facility]) PAST OBSTETRICAL HISTORY: OB History 4 Para 2 Term 2 AB 1 Living 2 SAB 1 IAB Ectopic Multiple Live Births 2 SURGICAL HISTORY: Past Surgical History: Procedure Laterality Date APPENDECTOMY SECTION CHOLECYSTECTOMY GASTRECTOMY KNEE SURGERY Left ALLERGIES: Allergies Allergen Reactions Penicillins Anaphylaxis Topiramate CURRENT MEDICATIONS: Current Outpatient Medications: amLODIPine (NORVASC) 10 mg tablet, Take 1 tablet (10 mg total) by mouth in the morning., Disp: , Rfl: aspirin 81 mg, Take 1 tablet (81 mg total) by mouth in the morning., Disp: , Rfl: buPROPion XL (WELLBUTRIN XL) 150 mg 24 hr tablet, Take 1 tablet (150 mg total) by mouth in the morning., Disp: , Rfl: diphenhydramine HCl (UNISOM, DIPHENHYDRAMINE, ORAL), Take 50 mg by mouth., Disp: , Rfl: escitalopram (LEXAPRO) 10 mg tablet, Take 1 tablet (10 mg total) by mouth in the morning., Disp: , Rfl: levothyroxine (SYNTHROID, LEVOTHROID) 25 MCG tablet, Take 1 tablet (25 mcg total) by mouth in the morning., Disp: , Rfl: melatonin 1 mg tablet,chewable, Chew and swallow., Disp: , Rfl: metoprolol succinate XL (TOPROL XL) 100 mg 24 hr tablet, Take 1 tablet (100 mg total) by mouth in the morning., Disp: , Rfl: omeprazole (PriLOSEC) 40 mg capsule, Take 1 capsule (40 mg total) by mouth in the morning., Disp: , Rfl: SYNTHROID 137 mcg tablet, , Disp: , Rfl: busPIRone (BUSPAR) 10 mg tablet, Take 1 tablet (10 mg total) by mouth in the morning and 1 tablet (10 mg total) before bedtime. (Patient not taking: Reported on 09/22/2023), Disp: , Rfl: chlorhexidine (PERIDEX) 0.12 % solution, TAKE 15 ML IN MOUTH & SWISH FOR 30 SECONDS THEN SPIT OUT TWICE DAILY FOR 20 DAYS (Patient not taking: Reported on 09/22/2023), Disp: , Rfl: ferrous sulfate 325 (65 FE) mg EC tablet, Take 1 tablet (325 mg total) by mouth in the morning and 1 tablet (325 mg total) at noon and 1 tablet (325 mg total) in the evening. Take with meals. (Patient not taking: Reported on 09/22/2023), Disp: , Rfl: fluocinonide (LIDEX) 0.05 % external solution, APPLY TO THE AFFECTED AREA(S) EVERY OTHER DAY, Disp: , Rfl: hydrOXYzine (VISTARIL) 25 mg capsule, TAKE 1 CAPSULE BY MOUTH TWICE DAILY NEEDED (Patient not taking: Reported on 09/22/2023), Disp: , Rfl: sertraline (ZOLOFT) 100 mg tablet, Take 1 tablet (100 mg total) by mouth in the morning. (Patient not taking: Reported on 09/22/2023), Disp: , Rfl: FAMILY/GENETIC HISTORY: No family history of VTE, cardiac defects and mental retardation . SOCIAL HISTORY:Patient denies tobacco use, alcohol use, or drug use. RECENT HOSPITALIZATION: none I did review all the labs results available in addition to labs which were ordered by the primary care physician, and the other consultants, we search on [email or web address] and all the available care everywhere epic I did review all the imaging studies of the patient available on EMR, ordered by the primary care physician and the other budget consultant HABITS: Patient activity no restrictions, diet no restrictions REVIEW OF SYSTEM: Head and Neck: Negative for any dizziness and headaches. Cardiovascular and Respiratory System: Denies any chest pain, shortness of breath, and coughing. Abdominal and System: Denies any abdominal pain, nausea, vomiting, vaginal bleeding, and vaginal discharge Social Determinants of Health Financial Resource Strain: n Food Insecurity: n Transportation Needs: n Physical Activity: y Social Connections: n Intimate Partner Violence: y Housing Stability: n PHYSICAL EXAMINATION: BP 123/74 Pulse 82 Wt (!) 141.8 kg (312 lb 9.6 oz) LMP 03/28/2023 BMI 44.85 kg/m . Gravid abdomen, Respirations not labored. Well oriented time place person, normal gait MEDICAL DECISION MAKING DISCUSSION: I informed the patient that unlike other hypertensive disorders essential hypertension needs to be treated with a goal of keeping the blood pressure at or below 140/90 and therefore medication can be titrated accordingly. Either metoprolol or Norvasc can be increased. Patient is a candidate for low-dose aspirin therapy and therefore took the liberty of starting the patient on low-dose aspirin therapy which can be discontinued in . should be continue with serial growth ultrasounds every 4 weeks at her OB office and initiate testing starting at 32 weeks gestation. Delivery at 38 weeks gestation based on maternal essential hypertension on medication criteria. I explained there is a 1% incidence of hypothyroidism in the general population. The thyroid is important for normal growth and maintenance of lipid and carbohydrate metabolism. We discussed the pathophysiology of thyroid regulation including stimulation of the thyroid from TSH from the anterior pituitary. In , the physiology changes somewhat due to increased amounts of hormones such as estrogen which blocks the degradation of thyroid binding globulin and human chorionic gonadotropin which stimulates thyroid hormone secretion and suppresses TSH. Throughout , there is a 30-50% increase in the requirement of throxine. In the fetus, the small amount of thyroxine that crosses the placenta provides thyroid hormone until 10-12 weeks. After this time, the fetus begins to synthesis thyroid hormone. We also discussed hypothyroidism often occurs due to Jose s thyroiditis. If this occurs, there can be antibodies circulating in the patient which cross the placenta and act on the fetus. The fetus can then develop a goiter. Although this is rare, but can be found if the maternal circulating antibodies are elevated. Some of the complications in associated with untreated or partially treated hypothyroidism are preeclampsia, abruption, and low weight. When the maternal free T4 is very low in , the is at risk for impaired psychomotor function and a significantly lower IQ. Therefore, recommendations are to maintain serum TSH 0.5-2.0 microIU/ml and Free T4 in the upper third of normal range. Measure TSH and Free T4 every 4 weeks and patient should go back to pre- dosing in the PP period. RECOMMENDATION: 1. Continue Norvasc and metoprolol with a goal of keeping the blood pressure at or below 140/90. 2. We would increase Norvasc initially to keep the blood pressure under control. 3. Continue serial thyroid function testing TSH and free T4 at her OB office. 4. Follow-up in 4 weeks for completion of targeted anatomy at our [facility] site. 5. Serial growth ultrasounds every 4 weeks after 24 weeks gestation at her OB office. 6. Patient is a candidate for testing based on chronic hypertension criteria. 7. Delivery at 38 weeks gestation at her local hospital via repeat . Patient interested in bilateral tubal ligation as well. 8. Patient is a candidate for prophylactic Lovenox therapy 40 mg subQ daily for the duration of the hospital stay after . DISPOSITION: At this point the patient is in complete care of her screen making technician. Patient does have ultrasound office visit scheduled with us Thank you for allowing me to participate in Tiffani Allison . If there any questions please do not hesitate to contact us. Sincerely, HÉCTOR AGUILAR MD documented in this encounter [facility] 09-15-2023 History of Presen t illness Narrative Reason for Appointment: Patient ID: Tiffani Allison is a 37 y.o. female who presents for Routine Visit Patient presents today for Return OB appointment. Current Medications: has a current medication list which includes the following prescription(s): iron chews pediatric, chlorhexidine, diclofenac, meclizine, melatonin, multi vitamin daily, ondansetron odt, amlodipine, bupropion xl, diphenhydramine, escitalopram, ferrous sulfate, fluocinonide, levothyroxine, melatonin, metoprolol succinate xl, omeprazole, gummies, and synthroid. Medical History: Active Ambulatory Problems Diagnosis Date Noted Anxiety with depression 08/18/2023 Screening, , for anatomic survey 08/18/2023 Second trimester 08/18/2023 Resolved Ambulatory Problems Diagnosis Date Noted No Resolved Ambulatory Problems Past Medical History: Diagnosis Date 2019 Depression with anxiety GERD (gastroesophageal reflux disease) HTN (hypertension) ([facility]) Hypothyroidism (acquired) ([facility]) Iron deficiency anemia Kidney stones Migraines ([facility]) Seizure ([facility]) 2019 Family History Problem Relation Name Age of Onset Diabetes Mother Hypertension Mother Heart disease Father Social History Tobacco Use Smoking status: Never Smokeless tobacco: Never Substance Use Topics Alcohol use: Not Currently Comment: caffeine: 1-2 cups per day Drug use: Never Past Surgical History: Procedure Laterality Date APPENDECTOMY SECTION, CLASSIC x2 CHOLECYSTECTOMY GASTRECTOMY 2017 gastric sleeve KNEE SURGERY Left Allergies Allergen Reactions Penicillins Anaphylaxis and Unknown Penicillin G Unknown Topiramate Other Reaction(s): seizures Review of Systems: Review of Systems Constitutional: Negative. HENT: Negative. Eyes: Negative. Respiratory: Negative. Cardiovascular: Negative. Gastrointestinal: Negative. Musculoskeletal: Negative. Skin: Negative. Neurological: Negative. Psychiatric/Behavioral: Negative. All other systems reviewed and are negative. Hematological: Negative. Endocrine: Negative. Objective Physical Exam Constitutional: Appearance: Normal appearance. She is normal weight. HENT: Head: Normocephalic. Cardiovascular: Rate and Rhythm: Normal rate. Pulses: Normal pulses. Pulmonary: Effort: Pulmonary effort is normal. Breath sounds: Normal breath sounds. Abdominal: Palpations: Abdomen is soft. Musculoskeletal: General: Normal range of motion. Neurological: General: No focal deficit present. Mental Status: She is alert and oriented to person, place, and time. Psychiatric: Mood and Affect: Mood normal. Behavior: Behavior normal. Thought Content: Thought content normal. Judgment: Judgment normal. Vitals and nursing note reviewed. Patient presents today for a routine obstetrics appointment. Patient is currently 24w3d . Patient states she is doing well but has complaints of being tired due to current . Patient has verbalizes frequent movement. labor precautions was discussed/given and patient was instructed to perform kick counts three times a day. Pt was given her 1 hour glucose order to have done at [facility]. Follow Up: Patient is to return to office in 4 week for routine OB appointment. Vitals: Estimated body mass index is 43.52 kg/m as calculated from the following: Height as of 01/20/23: 5' 11 . Weight as of this encounter: 312 lb. BP: 130/80 Patient's last menstrual period was 03/28/2023. Assessment/Plan Encounter Diagnoses Name Primary? Second trimester Diabetes mellitus screening Pt scheduled for repeat US next week with mfm. Cbc and hga1c given today as pt does not tolerated glucose challenge due to gastric bypass Patient presents today for a routine obstetrics appointment. Patient is currently 24w3d . Patient states she is doing well but has complaints of being tired due to current . Patient has verbalizes frequent movement. labor precautions was discussed/given a Pt wishes to travel by plane post c section. Pt advised of complications including PE and . Pt verbalized understanding and will discuss as delivery is closer. Follow Up: Patient is to return to office in 4 week for routine OB appointment. Documented by Rosamaria Conrad MA on behalf of: REMY Valdes documented in this encounter [facility] 08-19-2023 Miscellaneous Notes Formattin g of this note might be different from the original. LEFT A MESSAGE TO SCHEDULE USN AND CONSULT. 08/19/2023 1043 [facility]23 Telephone encount er Note LEFT A MESSAGE TO SCHEDULE USN AND CONSULT. 08/19/2023 1043 [facility] 05-19-2023 Evaluation note Encounter Date Diagnosis Assessment [...] start metamucile and probiotics RTO 3 months [facility] Patient Education 01/26/2023 [...] include: ?8 oz (237 mL) of milk, [id number]-fqlze milk, and calcium- fortifiedfruit juice. Calcium-fortified means [...] ?Spinach (cooked), rhubarb, beets, sweet potatoes, and Kuwaiti chard. ?Peanuts. ?Potato chips, english fries, and baked potatoes with skin on. ?Nuts and nut products. ?Chocolate. If you regularly take a diuretic medicine, make sure to eat at least 1 or 2 servings of fruits or vegetables that are high in potassium each day. These include: ?Avocado. ?Banana. ?Graves, prune, carrot, or tomato juice. ?Baked potato. [...] magnesium, fish oil, or vitamin B6. Take qusk-shp-hjjksvx and prescription medicines only as told by [...] Casseroles. Pizza. Lasagna. Frozen meals. Potato chips. Tamazight fries. The items listed above may not [...] provider. Document Revised: 03/29/2022 Document Reviewed: 03/29/2022 [employer] Patient Education 2022 [employer]. Follow Up Care 12/28/2022 12:57:40 With:Aram RUSSELL, KAITLYNN Caballero, U[facility] Address: When:Within 6 Month(s) Comments:irasema FALK & YAMILETH [facility] 06-19-2023 Evaluation note* Encounter Date Diagnosis Assessment Notes Treatment Notes Treatment Clinical Notes Dec, Iron deficiency anemia (ICD-10 - D50.9) Will proceed with EGD Will request recent lab work done at [place]. Dec, GERD (gastroesophageal reflux disease) (ICD-10 - K21.9) Patient to continue on Omeprazole 40mg Dec, Diarrhea (ICD-10 - R19.7) Will proceed with Colonoscopy. [facility] Other Evaluation + Plan note Future Appointments Appointment Date:08/03/2023 10:00:00 AM Scheduled Provider:Alyson Chiu MD Location:[facility] Appointment Type:URO Office Visit [facility] evaluation + Plan note Future Appointments Appointment Date:08/03/2023 10:00:00 AM Scheduled Provider:Alyson Chiu MD Location:[facility] Appointment Type:URO Office Visit Diagnostic Tests Pending * Calculi [facility] Diagnosis Onset Date Resolution Status Iron deficiency anemia [facility] Work Phone: Evaluation note* Diagnosis Second trimester state, incidental Diabetes mellitus screening Screening for diabetes mellitus 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) Hypothyroidism, unspecified type (CMS/HCC) documented in this encounter [facility] HealthcareEvaluation note* Diagnosis Essential hypertension affecting in second trimester- Primary [facility] Diagnosis Pre-existing essential hypertension during in second trimester- Primary Advanced maternal age in multigravida, second trimester Hypothyroid in , antepartum [facility] Diagnosis Essential hypertension affecting in second trimester- Primary [facility] general Narrative - Reported* Type Description Date Medical History Esophageal reflux Medical History anxiety Medical History chronic depression Medical History high blood pressure Medical History low thyroid Medical History menieres disease Medical History kidney stones Medical History iron deficiency anemia Surgical History C section Surgical History gastric sleeve Surgical History cholecystectomy Surgical History appendectomy Surgical History left knee meniscus Hospitalization History see above [facility] Other Hospital course Narrative No data available for this section [facility] Hospital Discharge instructions No data available for this section [facility] Additional Instructions DISCHARGE INSTRUCTIONS FOR [...] if you have any problems. -[facility] number [phone] Work Phone: InstructionsNot on filedocumented in this encounter [facility] filedocumented in this encounter [facility] on filedocumented in this encounter [facility] filedocumented in this encounter [facility] on filedocumented in this encounter [facility] No data available for this section [facility] Summary Purpose Family History No Family History [...] Reason for Visit Iron deficiency anem ia Reason for Referral Specialty Diagnoses / Procedures Referred By Contac t Referred To Contact Maternal and Medicine Diagnoses Pre-existing essential hypertension during in second trimester Advanced maternal age in multigravida, second trimester Hypothyroid in , antepartum Procedures US MFM with or without consult Héctor Aguilar MD [address] [place] [address] [facility] Maternal [facility] [address] [place] [address] Referral ID Status Reason Start Date Expiration Date V isits Requested Visits Authorized [id number] Pending Review 09/22/2023 09/21/2024 1 1 Additional Source Comments INFORMATION SOURCE (unrecogn ized section and content) DATE CREATED AUTHOR 01/07/2023 [facility] DATE CREATED AUTHOR AUTHOR'S ORGANIZ ATION 03/17/2023 [facility] DATE CREATED AUTHOR AUTHOR'S ORGANIZ ATION 08/05/2023 [facility] DATE CREATED AUTHOR AUTHOR'S ORGANIZ ATION 10/19/2023 [facility] DATE CREATED AUTHOR AUTHOR'S ORGANIZ ATION 10/31/2023 [facility] DATE CREATED AUTHOR AUTHOR'S ORGANIZ ATION 11/03/2023 [facility] REASON FOR VISIT (unrecogniz ed section and content) Reason Comments Routine Visit Reason Comments Advanced Maternal Age Chronic Hypertension Hypothyroidism Patient Care team informatio n (unrecognized section and content) Team Status: Active Member Role Status Dates [facility] Active Team Status: Inactive Member Role Status Dates Denys Landa MD Attending Provider Active JOSE Villar-CIPRIANO Primary Care Provider Active Card Folder Relationship Specialty Start Date End Date No Pcp, [place] [address] PCP - General Family Medicine 10/18/23 Card Folder Relationship Specialty Start Date End Date No Pcp, [place] [address] PCP - General Family Medicine 10/18/23 FOR RECORDS PERTAINING TO PATIENTS WHO ARE [...] BE BASED ON THE PRIMARY CLINICAL RECORDS. [facility] provides no warranty or guarantee of the accuracy or completeness of information in this document.
== END 2023-11-15 08:01 | disposition home or self-care (01) ==
LOC: NOMS 08:00
PROVIDERS: PCP Nurse Practitioner Primary Care; Visit Provider Physician Assistant
DX: E03.9 Hypothyroidism, unspecified (principal); R79.89 Other specified abnormal findings of blood chemistry; Z3A.33 33 weeks gestation of pregnancy
CPT/HCPCS: 76816

== ENCOUNTER 2023-11-17 07:45 | Outpatient (OUT) | payer OTHER, SELFPAY ==
--- OUTSIDE RECORDS SUMMARY | 2023-11-17 08:12 | XMS_ITS | CCD ---
Author Organization [facility] Care Team Providers Care Manager It Security Name Role Phone KWAN ., LUKE Admitting Unavailable KWAN ., LUKE Attending Unavailable HAY ., DR ROBERTO Consulting Unavailable SHAMMO, WILBER Primary Care Unavailable LUWilber .ALYSON Consulting Unavailable LINDA LOMBARDO Consulting Unavailable ALEXA WHITE Consulting Unavailable KWAN ., LUKE Consulting Unavailable SHAMMO, WILBER Attending Unavailable SHAMMO, WILBER Admitting Unavailable SHAMMO, WILBER Consulting Unavailable SHAMMO, WILBER Attending Unavailable SHAMMO, WILBER Admitting Unavailable SHAMMO, WILBER Primary Care Unavailable SHAMMO, WILBER Consulting Unavailable Denys Landa Unavailable SHAMMO, WILBER TOMASA Primary Care Physician MD Denys Landa Attending Provider Shammo, [facility] Wilber T Primary Care Provider [phone] Denys Landa Attending Unavailabl e Denys Landa Admitting Unavailabl e Shammo, Wilber T Primary Care Unavailable SHAMMO, WILBER Primary Care Unavailable Alyson Chiu Attending Unavailable Alyson Chiu Attending Unavailable SHAMMO, WILBER Primary Care Unavailable SHAMMO, WILBER Primary Care Unavailable Alyson Chiu Admitting Unavailable Alyson Chiu Attending Unavailable Unavailable Primary Care Provider Unavailabl e Unavailable Primary Care Provider Unavailabl e No Pcp, No Pcp Primary Care Provider Unavailabl e DANDY MIGUELY R Referring Unavailable NO PCP, NO PCP Primary Care Unavailable HÉCTOR AGUILAR Attending Unavailable PARIS, ADRIAN R Referring Unavailable NO PCP, NO PCP Primary Care Unavailable DANDY MIGUELY R Referring Unavailable HÉCTOR AGUILAR Attending Unavailable PARIS, ADRIAN R Referring Unavailable PARIS, ADRIAN Attending Unavailable KASSANDRA LINARES Attending Unavailable ADRIAN MIGUEL Attending Unavailable KASSANDRA LINARES Attending Unavailable ADRIAN MIGUEL Attending Unavailable ADRIAN MIGUEL Attending Unavailable KASSANDRA LINARES Attending Unavailable Allergies Allergy Classification Reported Allergen(s) Allergy Type Date of Onset Reaction(s) Facility (3 sources) Penicillin Drug Allergy 3 Unknown [facility] (15 sources) Penicillins; Translations: [penicillins] Allergy to substance 3 Anaphylaxis (disorder), Anaphylaxis, Unknown [facility] (7 sources) topiramate; Translations: [TOPIRAMATE] Drug Allergy 4 [facility] (2 sources) Penicillin G Drug Allergy 3 Unknown [facility] (2 sources) Topiramate Allergy to substance 3 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] Onset: 08-18-2023 Chronic Calculus of urinary tract (3 [...] UA Negative Negative - 4(70) +++ mg/dL [facility] Blood, UA Negative Negative - 50 Maikol/mcL [facility] Clarity, UA Clear [facility] Color, UA Yellow [facility] Glucose, UA Negative Negative - 2000(110) ++++ mg/dL [facility] Interpretation and review of laboratory results Abnormal [facility] Ketones, UA Negative Negative - 160(16) ++++ mg/dL [facility] Leukocytes, UA Negative Negative - 500+++ Endy/mcL [facility] Nitrite, UA Negative Negative - Positive [facility] pH, UA 6.0 5 - 9 [facility] Protein, UA Trace Negative - 1999(20) ++++ mg/dL [facility] Spec Grav, UA 1.025 1 - 1.03 [facility] Urobilinogen, UA 0.2 0.2 - 12 mg/dL [facility] Reminderson 08-05-2023 Reminders - From: Ewa Valentin [...] - From: Ana Sherwood (EU - Recalls Lue) To: Alyson Chiu MD; Sent: 08/04/2023 11:10:53 EST Show up: 08/04/2023 11:10:00 EST Subject: RE: Reminder Message Does pt need tracked? - From: Alyson Chiu MD To: EU - Recalls Aram; Sent: 08/05/2023 09:02:01 EST Show up: 08/05/2023 09:01:00 EST Subject: RE: Reminder Message No Normal [facility] Free Cell DNAon 2022 [facility] HCG ( test) IA.rapi d Ql (U)Ordered By: Denys Landa on 03-15-2023 HCG ( test) Ql (U) Negative [facility] HCG,Urineon 03-15-2023 Beta HCG ( test) Ql (U) Negative Normal [facility] Comment on above: Result Comment: PERF ORMED BY: [place] [address] PATHOLOGIST MANAGER CATEGORY SALVADOR LEHMAN M.D. Performed By: #### U HCG #### [address] 03-15-2023 L Specimen: [id number] Received: 03/15/23 Status: KENISHA Tavon Num: [id number] Spec Type: Surgical Subm Dr: Denys Landa MD Tissues: A Duodenum - Biopsy (DUODENAL BX) B STOMACH FOR HP (ANTRAL BX HP) C Esophagus Biopsy (ESOPHAGUS BX) Procedures: HE/6, Gross/Micro L4/3, H PYLORI Age/ Patient Sex Location Account Attending Physician Lisa Allison 37/F [id number] Denys Landa MD SPEC NUM: [id number] RECD: 03/15/23 STATUS: KENISHA MONTES [place] NUM: [id number] RODERICK: 03/15/23- SUBM DR: Denys Landa MD ENTERED: 03/15/23-[address] [facility] [address]: CESAR TYPE: Surgical DEPT: S [...] eosinophilic exocytosis or eosinophilic esophagitis identified Specimen: [id number] Received: 03/15/23 Status: KENISHA Montes [place] Num: [id number] Spec Type: Surgical Subm Dr: Denys Landa MD Tissues: A Duodenum - Biopsy (DUODENAL BX) B STOMACH FOR HP (ANTRAL BX HP) C Esophagus Biopsy (ESOPHAGUS BX) Procedures: HE/6, Gross/Micro L4/3, H PYLORI Patient: Lisa Allison [id number] (Continued) Specimen: [id number] Received: 03/15/23 (Continued) Signed (signature on file) Chin-Fei Obrien MD 03/16/23 1658 Specimen: [id number] Received: 03/15/23 Status: KENISHA Mont[place] Num: [id number] Spec Type: Surgical Subm Dr: Denys Landa MD Tissues: A Duodenum - Biopsy (DUODENAL BX) B STOMACH FOR HP (ANTRAL BX HP) C Esophagus Biopsy (ESOPHAGUS BX) Procedures: HE/6, Gross/Micro L4/3, H PYLORI Patient: Estefany,Lisa R [id number] (Continued) Specimen: [id number] Received: 03/15/23 (Continued) Clinical Information LARISSA, rule [...] microscopic examination confirms the diagnosis. CPT Codes 54675l3, 89742 -- (more content not included)... Normal [facility] Calculus Analysison 02-06-20 23 Calcium oxalate dihydrate Infrared spectroscopy (Stone) [Mass fraction] 30 % Invalid Interpretation Code [facility] Comment on above: Performed By: #### 1 [id number] #### [facility] [address] [place] [address] Calcium oxalate monohydrate (Stone) [Mass fraction] 70 % Invalid Interpretation Code [facility] Comment on above: Performed By: #### 1 [id number] #### [facility] [address] [place] [address] Color (Stone) Brown Invalid Interpretation Code [facility] Comment on above: Performed By: #### 1 [id number] #### [facility] [address] [place] [address] Composition Comment Invalid Interpretation Code [facility] Comment on above: Result Comment: Perc entage (Represents the % composition) Performed By: #### 1 [id number] #### [facility] [address] [place] [address] Disclaimer: Comment Invalid Interpretation Code [facility] Comment on above: Result Comment: This test was developed and its performance characteristics determined by [facility]. It has not been cleared or approved by the Food and Drug Administration. Performed at: [facility] [address] [id number] PhD Roya Prajapati Performed By: #### 1 [id number] #### [facility] [address] [place] [address] Laboratory comment Asa (Report) Comment Invalid Interpretation Code [facility] Comment on above: Result Comment: Brad tafoya questions regarding Calculi [facility] at: [phone]. Performed By: #### 1 [id number] #### [facility] [address] [place] [address] Please Note: Comment Invalid Interpretation Code [facility] Comment on above: Result Comment: Calc dory report will follow via computer, mail or registered radiographer delivery. Performed By: #### 1 [id number] #### [facility] [address] [place] [address] Size (Stone) [Entitic vol] 3x3 Invalid Interpretation Code [facility] Comment on above: Result Comment: Mult iple pieces received. Dimensions of the largest piece reported. Performed By: #### 1 [id number] #### [facility] [address] [place] [address] Specimen source subject Nom Comment Invalid Interpretation Code [facility] Comment on above: Result Comment: Not provided Performed By: #### 1 [id number] #### [facility] [address] [place] [address] Stone Photo Comment Invalid Interpretation Code [facility] Comment on above: Result Comment: Phot ograph will follow under a separate cover Performed By: #### 1 [id number] #### [facility] [address] [place] [address] Weight (Stone) 8 mg Invalid Interpretation Code [facility] Comment on above: Performed By: #### 1 [id number] #### [facility] [address] [place] [address] Formson 01-26-2023 Forms [id number] #1.00CD:127 Normal [facility] Patient Educationon 01-27-20 Patient Education Nephrology Dietary Guidelines to Help [...] Spinach (cooked), rhubarb, beets, sweet potatoes, and Irish chard. ? Peanuts. ? Potato chips, swazi fries, and baked potatoes with skin on. ? Nuts and nut products. ? Chocolate. ? If you regularly take a diuretic medicine, make sure to eat at least 1 or 2 servings of fruits or vegetables that are high in potassium each day. These include: ? Avocado. ? Banana. ? Dakota, prune, carrot, or tomato juice. ? Baked [...] fish oil, or vitamin B6. ? Take sjqt-ngw-fayumuo and prescription medicines only as told by your health care provider. These include supplements. What foods should I limit? Limit your in (more content not included)... Normal [facility] RAD - MISCon 01-26-2023 RAD - MISC [id number] #1.00CD:127 [facility] Screenson 01-26-2023 Screens [id number] #1.00CD:127 [facility] Urology Office/Clinic Noteon 01-26-2023 Urology Office/Clinic Note Chief Complaint kidney stones HPI Staff Pt is a new pt, never before seen in our office. Here today due to kidney stones. [facility] 12/27/22 due to Rt flank pain [...] for this patient from Dr. Herron @ [facility]. I have reviewed and verified the [...] Pt had gastric bypass in 2016 in [place]. Has had diarrhea since she had her [...] Nitrite Uri (more content not included)... Normal [facility] Comment on above: Result Comment: Elec tronically Signed By: Aram RUSSELL, Alyson Burdick\.br\Date and Time Signed: 01/26/23 21:46 EDT\.br\Electronically Co-Signed By: Ewa Valentin\.br\Date and Time Co-Signed: 01/26/23 10:54 EDT ED Note-Physicianon 01-24-20 ED Note-Physician [id number]#1.00CD:127 Normal [facility] Lab Reportson 01-23-2023 Lab Reports [id number]#1.00CD:127 Normal [facility] RAD - CT Reporton 01-23-2023 RAD - CT Report [id number]# 1.00CD:127 Normal [facility] CBC AUTO DIFFon 12-28-2022 BASO # 0.0 103/ul Normal 0.0-0.1 [facility] Comment on above: Performed By: #### F ERR, FETIBC #### [facility] [address] [place] [address] Dr. Michele Obrien Basophils/100 WBC (Bld) 0.5 % Normal 0.2-2.0 [facility] Comment on above: Performed By: #### F ERR, FETIBC #### [facility] [address] [address] [address] Michele Obrien EO # 0.2 103/ul Normal 0.0-0.7 [facility] Comment on above: Performed By: #### F ERR, FETIBC #### [facility] [address] [address] [address] Michele Obrien Eosinophils/100 WBC (Bld) 2.6 % Normal 0.9-7.0 [facility] Comment on above: Performed By: #### F ERR, FETIBC #### [facility] [address] [address] [address] Michele Obrien Erythrocyte distribution width (RBC) [Ratio] 19.1 % Critically high 11.0-15.0 [facility] Comment on above: Performed By: #### F ERR, FETIBC #### [facility] [address] [place] [address] Dr. Michele Obrien Hematocrit (Bld) [Volume fraction] 37.6 % Normal 36.0-48.0 [facility] Comment on above: Performed By: #### F ERR, FETIBC #### [facility] [address] [place] [address] Dr. Michele Obrien Hemoglobin (Bld) [Mass/Vol] 11.9 g/dL Critically low 12.0-16.0 [facility] Comment on above: Performed By: #### F ERR, FETIBC #### [facility] [address] [place] [address] Dr. Michele Obrien IG # 0.03 10e3/ul Normal 0.00-0.03 [facility] Comment on above: Performed By: #### F ERR, FETIBC #### [facility] [address] [place] [address] Dr. Michele Obrien IG % 0.3 % Normal 0.0-0.5 [facility] Comment on above: Performed By: #### F ERR, FETIBC #### [facility] [address] [place] [address] Dr. Michele Obrien LYMPH # 1.6 103/ul Normal 1.2-3.8 [facility] Comment on above: Performed By: #### F ERR, FETIBC #### [facility] [address] [address] [address] Michele Obrien Lymphocytes/100 WBC (Bld) 18.4 % Critically low 20.5-60.0 [facility] Comment on above: Performed By: #### F ERR, FETIBC #### [facility] [address] [place] [address] Dr. Michele Obrien MANUAL DIFF REQ NO Normal [facility] Comment on above: Performed By: #### F ERR, FETIBC #### [facility] [address] [address] [address] Michele Obrien MCH (RBC) [Entitic mass] 23.7 pg Critically low 26.7-34.0 [facility] Comment on above: Performed By: #### F ERR, FETIBC #### [facility] [address] [place] [address] Dr. Michele Obrien MCHC (RBC) [Mass/Vol] 31.6 g/dL Normal 29.9-35.2 [facility] Comment on above: Performed By: #### F ERR, FETIBC #### [facility] [address] [place] [address] Dr. Michele Obrien MCV (RBC) [Entitic vol] 74.9 fL Critically low 81.0-99.0 [facility] Comment on above: Performed By: #### F ERR, FETIBC #### [facility] [address] [place] [address] Dr. Michele Obrien MONO # 0.5 103/ul Normal 0.3-0.8 [facility] Comment on above: Performed By: #### F ERR, FETIBC #### [facility] [address] [place] [address] Dr. Michele Obrien Monocytes/100 WBC (Bld) 5.9 % Normal 1.7-12.0 [facility] Comment on above: Performed By: #### F ERR, FETIBC #### [facility] [address] [place] [address] Dr. Michele Obrien NEUT # 6.4 103/ul Normal 1.4-6.5 [facility] Comment on above: Performed By: #### F ERR, FETIBC #### [facility] [address] [place] [address] Dr. Michele Obrien Neutrophils/100 WBC (Bld) 72.3 % Normal 43.0-75.0 [facility] Comment on above: Performed By: #### F ERR, FETIBC #### [facility] [address] [place], [place] [address] Dr. Michele Obrien Platelet mean volume (Bld) [Entitic vol] 10.2 fL Normal 9.5-13.5 [facility] Comment on above: Performed By: #### F ERR, FETIBC #### [facility] [address] [place], [place] [address] Dr. Michele Obrien PLT 243 103/ul Normal 150-450 [facility] Comment on above: Performed By: #### F ERR, FETIBC #### [facility] [address] [place], [place] [address] Dr. Michele Obrien RBC 5.02 106/ul Normal 4.20-5.40 [facility] Comment on above: Performed By: #### F ERR, FETIBC #### [facility] [address] [place], [place] [address] Dr. Michele Obrien WBC 8.9 103/ul Normal 4.0-11.0 [facility] Comment on above: Performed By: #### F ERR, FETIBC #### [facility] [address] [place], [place] [address] ABD/PELVIS WO CONon [...] by: ALEXA WHITE Date: 2022-12-28 02:25 Normal [facility] ER URINE PROFILEon 3 Bilirubin Ql (U) Negative Normal NEGATIVE [facility] Comment on above: Performed By: #### H IV12 #### [facility] [address] [place] [address] Dr. Michele Obrien Clarity (U) CLEAR Normal CLEAR [facility] Comment on above: Performed By: #### H IV12 #### [facility] [address] [address] [address] Michele Obrien Color (U) LT. YELLOW Normal YELLOW [facility] Comment on above: Performed By: #### H IV12 #### [facility] [address] [place] [address] Dr. Michele Obrien ERUCHARLES A micrscopic examination will be performed if indicated. Normal [facility] Comment on above: Performed By: #### H IV12 #### [facility] [address] [place] [address] Dr. Michele Obrien Glucose Ql (U) Negative Normal NEGATIVE [facility] Comment on above: Performed By: #### H IV12 #### [facility] [address] [place] [address] Dr. Michele Obrien Hemoglobin Ql (U) MODERATE Abnormal NEGATIVE [facility] Comment on above: Performed By: #### H IV12 #### [facility] [address] [place] [address] Dr. Michele Obrien Ketones Ql (U) Negative Normal NEGATIVE [facility] Comment on above: Performed By: #### H IV12 #### [facility] [address] [place] [address] Dr. Michele Obrien LEUKOCYTES Negative Normal NEGATIVE [facility] Comment on above: Performed By: #### H IV12 #### [facility] [address] [place] [address] Dr. Michele Obrien Nitrite Ql (U) Negative Normal NEGATIVE [facility] Comment on above: Performed By: #### H IV12 #### [facility] [address] [place] [address] Dr. Michele Obrien pH (U) 5.5 [pH] Normal 5-9 [facility] Comment on above: Performed By: #### H IV12 #### [facility] [address] [place] [address] Dr. Michele Obrien SPEC GRAVITY 1.025 Normal 1.005-<=1.025 [facility] Comment on above: Performed By: #### H IV12 #### [facility] [address] [place] [address] Dr. Michele Obrien UA PROTEIN Negative Normal NEGATIVE/ TRACE [facility] Comment on above: Performed By: #### H IV12 #### [facility] [address] [address] [address] Michele Obrien UR MICRO IND INDICATED Normal [facility] Comment on above: Performed By: #### H IV12 #### [facility] [address] [place] [address] Dr. Michele Obrien Urobilinogen Qn (U) 0.2 {Ijeoma'U}/dL Normal 0.2 - 1. 0 [facility] Comment on above: Performed By: #### H IV12 #### [facility] [address] [place] [address] Dr. Michele Obrien PREG HCG QUALon 12-28-2022 , QUAL Negative Normal NEGATIVE [facility] Comment on above: Performed By: #### P REG #### [facility] [address] [place] [address] Dr. Michele Obrien PROF 14(COMP METB)on 023 Albumin [Mass/Vol] 3.4 g/dL Normal 3.4-5.0 [facility] Comment on above: Performed By: #### C MP #### [facility] [address] [place] [address] Dr. Michele Obrien Albumin/Globulin [Mass ratio] 1.1 {ratio} Normal [facility] Comment on above: Performed By: #### C MP #### [facility] [address] [place] [address] Dr. Michele Obrien ALP [Catalytic activity/Vol] 73 U/L Normal 46-116 [facility] Comment on above: Performed By: #### C MP #### [facility] [address] [address] [address] Michele Obrien ALT [Catalytic activity/Vol] 18 U/L Normal 14-59 [facility] Comment on above: Performed By: #### C MP #### [facility] [address] [address] [address] Michele Obrien Anion gap [Moles/Vol] 11.9 mmol/L Normal [facility] Comment on above: Performed By: #### C MP #### [facility] [address] [address] [address] Michele Obrien AST [Catalytic activity/Vol] 13 U/L Critically low 15-37 [facility] Comment on above: Performed By: #### C MP #### [facility] [address] [address] [address] Michele Obrien Bilirubin [Mass/Vol] 0.1 mg/dL Critically low 0.2-1.0 [facility] Comment on above: Performed By: #### C MP #### [facility] [address] [address] [address] Michele Obrien Calcium [Mass/Vol] 8.6 mg/dL Normal 8.5-10.1 [facility] Comment on above: Performed By: #### C MP #### [facility] [address] [address] [address] Michele Obrien Chloride [Moles/Vol] 105 mmol/L Normal 98-107 [facility] Comment on above: Performed By: #### C MP #### [facility] [address] [address] [address] Michele Obrien CO2 [Moles/Vol] 26.7 mmol/L Normal 21.0-32.[address] [facility] Comment on above: Performed By: #### C MP #### [facility] [address] [address] [address] Michele Obrien Creatinine [Mass/Vol] 0.85 mg/dL Normal 0.55-1.02 [facility] Comment on above: Performed By: #### C MP #### [facility] [address] [address] [address] Michele Obrien EGFR-AF CITIZ[place] >60 Normal >=60 [facility] Comment on above: Performed By: #### C MP #### [facility] [address] [address] [address] Michele Obrien EGFR-NON AF CITIZEN OF [place] >60 Normal >=60 [facility] Comment on above: Performed By: #### C MP #### [facility] [address] [address] [address] Michele Obrien Globulin (S) [Mass/Vol] 3.1 g/dL Normal [facility] Comment on above: Performed By: #### C MP #### [facility] [address] [place] [address] Dr. Michele Obrien Glucose [Mass/Vol] 123 mg/dL Critically high 74-106 [facility] Comment on above: Performed By: #### C MP #### [facility] [address] [address] [address] Michele Obrien Potassium [Moles/Vol] 3.6 mmol/L Normal 3.5-5.1 [facility] Comment on above: Performed By: #### C MP #### [facility] [address] [place] [address] Dr. Michele Obrien Protein [Mass/Vol] 6.5 g/dL Normal 6.4-8.2 [facility] Comment on above: Performed By: #### C MP #### [facility] [address] [address] [address] Michele Obrien Sodium [Moles/Vol] 140 mmol/L Normal 136-145 [facility] Comment on above: Performed By: #### C MP #### [facility] [address] [address] [address] Michele Obrien Urea nitrogen [Mass/Vol] 14.0 mg/dL Normal 7.0-18.0 [facility] Comment on above: Performed By: #### C MP #### [facility] [address] [address] [address] Michele Obrien Urea nitrogen/Creatinine [Mass ratio] 16.5 mg/mg Normal [facility] Comment on above: Performed By: #### C MP #### [facility] [address] [place] [address] Dr. Michele Obrien URINE MICROSCOPIC ONLYon BACTERIA TRACE Abnormal NONE SEEN [facility] Comment on above: Performed By: #### H IV12 #### [facility] [address] [place] [address] Dr. Michele Obrien Bacteria identified Cx Nom (U) NOT INDICATED Normal [facility] Comment on above: Performed By: #### H IV12 #### [facility] [address] [place] [address] Dr. Michele Obrien CAST NONE SEEN Normal NONE SEEN [facility] Comment on above: Performed By: #### H IV12 #### [facility] [address] [place] [address] Dr. Michele Obrien Crystals LM Nom (Urine sed) NONE SEEN Normal NONE SEEN [facility] Comment on above: Performed By: #### H IV12 #### [facility] [address] [place] [address] Dr. Michele Obrien Epithelial cells LM Ql (Urine sed) FEW Abnormal NONE SEEN /RARE [facility] Comment on above: Performed By: #### H IV12 #### [facility] [address] [place] [address] Dr. Michele Obrien MUCOUS TRACE Abnormal NONE SEEN [facility] Comment on above: Performed By: #### H IV12 #### [facility] [address] [place] [address] Dr. Michele Obrien RBC 20-50 Abnormal 0-2 [facility] Comment on above: Performed By: #### H IV12 #### [facility] [address] [place] [address] Dr. Michele Obrien WBC 0-2 Abnormal NONE SEEN [facility] Comment on above: Performed By: #### H IV12 #### [facility] [address] [place] [address] Dr. Michele Obrien HIV 1 AND 2 WITH REFLEXon HIV Screen 4th Generation wRfx Non-Reactive Normal Non Reactive [facility] Comment on above: Result Comment: HIV Negative HIV-1/HIV-2 antibodies and HIV-1 p24 antigen were NOT detected. There is no laboratory evidence of HIV infection. Performed By: #### H IV12 #### [facility] [address] [place] [address] Dr. Michele Obrien FERRITINon 10-16-2022 Ferritin [Mass/Vol] 6.0 ng/mL Critically low 6.2-137.0 [facility] Comment on above: Performed By: #### F ERR, FETIBC #### [facility] [address] [place] [address] Dr. Michele Obrien FREE T3on 10-16-2022 FREE T3 1.87 pg/mlL Critically low 2.18-3.[address] [facility] Comment on above: Performed By: #### H IV12 #### [facility] [address] [place] [address] Dr. Michele Obrien HEMOGRAM AND PLATELon 2022 Hematocrit (Bld) [Volume fraction] 35.7 % Critically low 36.0-48.0 [facility] Comment on above: Performed By: #### H H #### [facility] [address] [place] [address] Dr. Michele Obrien Hemoglobin (Bld) [Mass/Vol] 10.4 g/dL Critically low 12.0-16.0 [facility] Comment on above: Performed By: #### H H #### [facility] [address] [place] [address] Dr. Michele Obrien MCH (RBC) [Entitic mass] 20.0 pg Critically low 26.7-34.0 [facility] Comment on above: Performed By: #### H H #### [facility] [address] [place] [address] Dr. Michele Obrien MCHC (RBC) [Mass/Vol] 29.1 g/dL Critically low 29.9-35.2 [facility] Comment on above: Performed By: #### H H #### [facility] [address] [place] [address] Dr. Michele Obrien MCV (RBC) [Entitic vol] 68.5 fL Critically low 81.0-99.0 [facility] Comment on above: Performed By: #### H H #### [facility] [address] [place] [address] Dr. Michele Obrien PLT 241 103/ul Normal 150-450 [facility] Comment on above: Performed By: #### H H #### [facility] [address] [place] [address] Dr. Michele Obrien RBC 5.21 106/ul Normal 4.20-5.40 [facility] Comment on above: Performed By: #### H H #### [facility] [address] [place] [address] Dr. Michele Obrien WBC 6.9 103/ul Normal 4.0-11.0 [facility] Comment on above: Performed By: #### H H #### [facility] [address] [place] [address] Dr. Michele Obrien IRON AND TIBCon 10-16-2022 % SATURATION 4.5 % Normal [facility] Comment on above: Performed By: #### F ERR, FETIBC #### [facility] [address] [place] [address] Dr. Michele Obrien Iron [Mass/Vol] 18.0 ug/dL Critically low 50.0-170.0 [facility] Comment on above: Performed By: #### F ERR, FETIBC #### [facility] [address] [place] [address] Dr. Michele Obrien TIBC DIRECT 396.0 ug/dL Normal 250.0-450.0 [facility] Comment on above: Performed By: #### F ERR, FETIBC #### [facility] [address] [place] [address] Dr. Michele Obrien TSH W/ REFLEX TO FT4on 10-16 TSH 3.577 uIU/mL Normal 0.358-3.740 [facility] Comment on above: Performed By: #### H IV12 #### [facility] [address] [place] [address] Dr. Michele Obrien VITAMIN Con 09-03-2022 Vitamin C 0.2 mg/dL Critically low 0.4-2.0 [facility] Comment on above: Result Comment: Li min C deficiency is generally defined as plasma or serum concentrations less than 0.2 mg/dL and levels between 0.2 and 0.4 mg/dL are considered low. Performed By: #### F ERR, FETIBC #### [facility] [address] [place] [address] Dr. Michele Obrien VITAMIN Aon 09-01-2022 Vitamin A 33.6 ug/dL Normal 18.9-57.3 [facility] Comment on above: Result Comment: Refe rence intervals for vitamin A determined from [facility] internal studies. Individuals with vitamin A less than 20 ug/dL are considered vitamin A deficient and those with serum concentrations less than 10 ug/dL are considered severely deficient. . This test was developed and its performance characteristics determined by [facility]. It has not been cleared or approved by the Food and Drug Administration. Performed By: #### V ITAMA #### [facility] [address] [place] [address] Dr. Michele Obrien VITAMIN Kodi 09-01-2022 Vitamin E (Alpha T) 11.9 mg/L Normal 5.9-19.4 [facility] Comment on above: Performed By: #### V ITAE #### [facility] [address] [place] [address] Dr. Michele Obrien Vitamin E (Gamma T) 1.5 mg/L Normal 0.7-4.9 [facility] Comment on above: Result Comment: Refe rence intervals for alpha and gamma-tocopherol determined from National Health and Nutrition Examination Survey, 0787-7956. Individuals with alpha-tocopherol levels less than 5.0 mg/L are considered vitamin E deficient. Performed By: #### V ITAE #### [facility] [address] [place] [address] Dr. Michele Obrien VITAMIN Garrett 08-26-2022 Vitamin K1 0.24 ng/mL Normal 0.10-2.20 [facility] Comment on above: Performed By: #### F ERR, FETIBC #### [facility] [address] [address] [address] Michele Obrien SELENIUM, PLASMAon Selenium, Serum/Plasma 110 ug/L Normal 93-198 [facility] Comment on above: Performed By: #### H IV12 #### [facility] [address] [address] [address] Michele Obrien VITAMIN B1 (THIAMINE)on 08-02 Vit. B1, Whole Blood 126.2 nmol/L Normal 66.5-200.0 [facility] Comment on above: Performed By: #### F ERR, FETIBC #### [facility] [address] [place] [address] Dr. Michele Obrien ZINC SERUM OR PLASMAon 08-23 Zinc, Plasma or Serum 69 ug/dL Normal 44-115 [facility] Comment on above: Result Comment: Dete ction Limit = 5 Performed By: #### H IV12 #### [facility] [address] [place] [address] Dr. Michele Obrien FERRITINon 08-20-2022 Ferritin [Mass/Vol] 5.0 ng/mL Critically low 6.2-137.0 [facility] Comment on above: Performed By: #### F ERR, FETIBC #### [facility] [address] [place] [address] Dr. Michele Obrien FREE T4on 08-20-2022 Free T4 [Mass/Vol] 1.01 ng/dL Normal 0.76-1.46 [facility] Comment on above: Performed By: #### H IV12 #### [facility] [address] [place] [address] Dr. Michele Obrien GLYCOHEMOGLOBIN A1Con 2022 ADA RECOMMENDATION SEE BELOW Normal [facility] Comment on above: Result Comment: ADA RECOMMENDED LIMIT 4.0 - 6.0 ADA THERAPEUTIC TARGET < 7.0 ACTION SUGGESTED > 7.0 Performed By: #### H IV12 #### [facility] [address] [address] [address] Michele Obrien Glucose [Mass/Vol] 80 mg/dL Normal [facility] Comment on above: Performed By: #### H IV12 #### [facility] [address] [address] [address] Michele Obrien HbA1c (Bld) [Mass fraction] 4.4 % Critically low 4.5-6.2 [facility] Comment on above: Performed By: #### H IV12 #### [facility] [address] [place] [address] Dr. Michele Obrien HEMOGRAM AND PLATELon 2022 Hematocrit (Bld) [Volume fraction] 29.3 % Critically low 36.0-48.0 [facility] Comment on above: Performed By: #### H IV12 #### [facility] [address] [place] [address] Dr. Michele Obrien Hemoglobin (Bld) [Mass/Vol] 9.3 g/dL Critically low 12.0-16.0 [facility] Comment on above: Performed By: #### H IV12 #### [facility] [address] [address] [address] Michele Obrien MCH (RBC) [Entitic mass] 20.1 pg Critically low 26.7-34.0 [facility] Comment on above: Performed By: #### H IV12 #### [facility] [address] [address] [address] Michele Obrien MCHC (RBC) [Mass/Vol] 31.7 g/dL Normal 29.9-35.2 [facility] Comment on above: Performed By: #### H IV12 #### [facility] [address] [address] [address] Michele Obrien MCV (RBC) [Entitic vol] 63.4 fL Critically low 81.0-99.0 [facility] Comment on above: Performed By: #### H IV12 #### [facility] [address] [address] [address] Michele Obrien PLT 213 103/ul Normal 150-450 [facility] Comment on above: Performed By: #### H IV12 #### [facility] [address] [address] [address] Michele Obrien RBC 4.62 106/ul Normal 4.20-5.40 [facility] Comment on above: Performed By: #### H IV12 #### [facility] [address] [address] [address] Michele Obrien WBC 5.8 103/ul Normal 4.0-11.0 [facility] Comment on above: Performed By: #### H IV12 #### [facility] [address] [address] [address] Michele Obrien IRON AND TIBCon 08-20-2022 % SATURATION 6.5 % Normal [facility] Comment on above: Performed By: #### F ERR, FETIBC #### [facility] [address] [place] [address] Dr. Michele Obrien Iron [Mass/Vol] 22.0 ug/dL Critically low 50.0-170.0 [facility] Comment on above: Performed By: #### F ERR, FETIBC #### [facility] [address] [address] [address] Michele Obrien TIBC DIRECT 340.0 ug/dL Normal 250.0-450.0 [facility] Comment on above: Performed By: #### F ERR, FETIBC #### [facility] [address] [place] [address] Dr. Michele Obrien LIPID PROFILEon 08-20-2022 CHOL-HDL RATIO NORM SEE BELOW Normal [facility] Comment on above: Result Comment: 3.3 - 4.4 LOW RISK 4.4 - 7.1 AVERAGE RISK 7.1 - 11.0 MODERATE RISK >11.0 HIGH RISK Performed By: #### F ERR, FETIBC #### [facility] [address] [place] [address] Dr. Michele Obrien Cholesterol [Mass/Vol] 146 mg/dL Normal <=200 [facility] Comment on above: Performed By: #### F ERR, FETIBC #### [facility] [address] [address] [address] Michele Obrien Cholesterol in HDL [Mass/Vol] 58 mg/dL Normal 40-60 [facility] Comment on above: Performed By: #### F ERR, FETIBC #### [facility] [address] [address] [address] Michele Obrien Cholesterol in LDL [Mass/Vol] 66.8 mg/dL Normal [facility] Comment on above: Performed By: #### F ERR, FETIBC #### [facility] [address] [place] [address] Dr. Michele Obrien Cholesterol.total/Ch olesterol in HDL [Mass ratio] 2.5 {ratio} Normal [facility] Comment on above: Performed By: #### F ERR, FETIBC #### [facility] [address] [address] [address] Michele Obrien HDL NORMAL > or = 60 mg/dl - LOW CARDIOVASCULAR RISK <40 mg/dl - HIGH CARDIOVASCULAR RISK Normal [facility] Comment on above: Performed By: #### F ERR, FETIBC #### [facility] [address] [place] [address] Dr. Michele Obrien LDL CALC NORMAL SEE BELOW Normal [facility] Comment on above: Result Comment: <100 mg/dl OPTIMAL 100 - 129 mg/dl NEAR OR ABOVE OPTIMAL 130 - 159 mg/dl BORDERLINE HIGH 160 - 189 mg/dl HIGH >190 mg/dl VERY HIGH Performed By: #### F ERR, FETIBC #### [facility] [address] [address] [address] Michele Obrien Triglyceride [Mass/Vol] 106 mg/dL Normal <=150 [facility] Comment on above: Performed By: #### F ERR, FETIBC #### [facility] [address] [place] [address] Dr. Michele Obrien VLDL CALC 21.2 mg/dL Normal [facility] Comment on above: Performed By: #### F ERR, FETIBC #### [facility] [address] [address] [address] Michele Obrien PROF 14(COMP METB)on 023 Albumin [Mass/Vol] 3.5 g/dL Normal 3.4-5.0 [facility] Comment on above: Performed By: #### F ERR, FETIBC #### [facility] [address] [address] [address] Michele Obrien Albumin/Globulin [Mass ratio] 1.2 {ratio} Normal [facility] Comment on above: Performed By: #### F ERR, FETIBC #### [facility] [address] [address] [address] Michele Obrien ALP [Catalytic activity/Vol] 76 U/L Normal 46-116 [facility] Comment on above: Performed By: #### F ERR, FETIBC #### [facility] [address] [address] [address] Michele Obrien ALT [Catalytic activity/Vol] 16 U/L Normal 14-59 [facility] Comment on above: Performed By: #### F ERR, FETIBC #### [facility] [address] [address] [address] Michele Obrien Anion gap [Moles/Vol] 10.0 mmol/L Normal [facility] Comment on above: Performed By: #### F ERR, FETIBC #### [facility] [address] [address] [address] Mcihele Obrien AST [Catalytic activity/Vol] 16 U/L Normal 15-37 [facility] Comment on above: Performed By: #### F ERR, FETIBC #### [facility] [address] [address] [address] Michele Obrien Bilirubin [Mass/Vol] 0.3 mg/dL Normal 0.2-1.0 [facility] Comment on above: Performed By: #### F ERR, FETIBC #### [facility] [address] [address] [address] Michele Obrien Calcium [Mass/Vol] 8.5 mg/dL Normal 8.5-10.1 [facility] Comment on above: Performed By: #### F ERR, FETIBC #### [facility] [address] [address] [address] Michele Obrien Chloride [Moles/Vol] 106 mmol/L Normal 98-107 [facility] Comment on above: Performed By: #### F ERR, FETIBC #### [facility] [address] [address] [address] Michele Obrien CO2 [Moles/Vol] 30.8 mmol/L Normal 21.0-32.[address] [facility] Comment on above: Performed By: #### F ERR, FETIBC #### [facility] [address] [address] [address] Michele Obrien Creatinine [Mass/Vol] 0.68 mg/dL Normal 0.55-1.02 [facility] Comment on above: Performed By: #### F ERR, FETIBC #### [facility] [address] [place] [address] Dr. Michele Obrien EGFR-AF CITIZEN [place] >60 Normal >=[address] [facility] Comment on above: Performed By: #### F ERR, FETIBC #### [facility] [address] [address] [address] Michele Obrien EGFR-NON AF CITIZEN OF [place] >60 Normal >=60 [facility] Comment on above: Performed By: #### F ERR, FETIBC #### [facility] [address] [address] [address] Michele Obrien Globulin (S) [Mass/Vol] 2.8 g/dL Normal [facility] Comment on above: Performed By: #### F ERR, FETIBC #### [facility] [address] [address] [address] Michele Obrien Glucose [Mass/Vol] 77 mg/dL Normal 74-106 [facility] Comment on above: Performed By: #### F ERR, FETIBC #### [facility] [address] [address] [address] Michele Obrien Potassium [Moles/Vol] 3.8 mmol/L Normal 3.5-5.1 [facility] Comment on above: Performed By: #### F ERR, FETIBC #### [facility] [address] [place] [address] Dr. Michele Obrien Protein [Mass/Vol] 6.3 g/dL Critically low 6.4-8.2 [facility] Comment on above: Performed By: #### F ERR, FETIBC #### [facility] [address] [place] [address] Dr. Michele Obrien Sodium [Moles/Vol] 143 mmol/L Normal 136-145 [facility] Comment on above: Performed By: #### F ERR, FETIBC #### [facility] [address] [place] [address] Dr. Michele Obrien Urea nitrogen [Mass/Vol] 10.0 mg/dL Normal 7.0-18.0 [facility] Comment on above: Performed By: #### F ERR, FETIBC #### [facility] [address] [place] [address] Dr. Michele Obrien Urea nitrogen/Creatinine [Mass ratio] 14.7 mg/mg Normal [facility] Comment on above: Performed By: #### F ERR, FETIBC #### [facility] [address] [place] [address] Dr. Michele Obrien TSHon 08-20-2022 TSH 4.302 uIU/mL Critically high 0.358-3.740 [facility] Comment on above: Performed By: #### F ERR, FETIBC #### [facility] [address] [place] [address] Dr. Michele Obrien VIT B12 AND FOLATEon 023 Cobalamin (Vitamin B12) [Mass/Vol] 433.0 pg/mL Normal 193.0-986.0 [facility] Comment on above: Performed By: #### B 12FOL, VITAD #### [facility] [address] [place] [address] Dr. Michele Obrien FOLATE 18.00 ng/mL Normal 8.60-58.90 [facility] Comment on above: Performed By: #### B 12FOL, VITAD #### [facility] [address] [place] [address] Dr. Michele Obrien VITAMIN D 25 OHon 08-20-2022 VIT D 25-OH 33.4 ng/mL Normal [facility] Comment on above: Performed By: #### B 12FOL, VITAD #### [facility] [address] [address] [address] Michele Obrien VIT D RANGES SEE BELOW Normal [facility] Comment on above: Result Comment: <20 ng/mL Vit D deficient 20 - <30 ng/mL Vit D insufficient 30 - 100 ng/mL Vit D sufficient >100 ng/mL Potential Toxicity Performed By: #### B 12FOL, VITAD #### [facility] [address] [address] [address] Michele Obrien Vital Signs Date Time Vital Sign Value Performing Clinician Facility 09-22-2023 09:42-0500 Body mass index (BMI) [Ratio] 44.85 kg/m2 Héctor Aguilar MD Work Phone: [facility] 09-22-2023 09:42-0500 Body weight 141.79 kg Héctor Aguilar MD Work Phone: [facility] 09-22-2023 09:42-0500 Diastolic blood pressure 74 mm[Hg] Héctor Aguilar MD Work Phone: [facility] 09-22-2023 09:42-0500 Heart rate 82 /min Héctor Aguilar MD Work Phone: [facility] 09-22-2023 09:42-0500 Systolic blood pressure 123 mm[Hg] Héctor Aguilar MD Work Phone: [facility] 09-15-2023 11:30-0500 Body mass index (BMI) [Ratio] 43.52 kg/m2 Kassandra ALBERTO Work Phone: [facility] 09-15-2023 11:30-0500 Body weight 141.52 kg Kassandra ALBERTO Work Phone: [facility] 09-15-2023 11:30-0500 Diastolic blood pressure 80 mm[Hg] Kassandra ALBERTO Work Phone: [facility] 09-15-2023 11:30-0500 Systolic blood pressure 130 mm[Hg] Kassandra ALBERTO Work Phone: [facility] 05-19-2023 15:30-0400 Body weight 128.05 kg Denys Selfack Other [facility] [employer] Other 05-19-2023 15:30-0400 Diastolic blood pressure 86 mm[Hg] Denys Selfack Other [facility] [employer] Other 05-19-2023 15:30-0400 Systolic blood pressure 127 mm[Hg] Denys Selfack Other [facility] [employer] Other 03-15-2023 10:48-0400 Diastolic blood pressure 80 mm[Hg] MOVING WORKER-BC Wilber Shammo Work Phone: [facility] 03-15-2023 10:48-0400 Heart rate 63 /min MOVING WORKER[employer]BC Wilber Shammo Work Phone: [facility] 03-15-2023 10:48-0400 Respiratory rate 16 /min MOVING WORKER[employer]BC Wilber Shammo Work Phone: [facility] 03-15-2023 10:48-0400 SaO2% (BldA) [Mass fraction] 99 % MOVING WORKER[employer]BC Wilber Shammo Work Phone: [facility] 03-15-2023 10:48-0400 Systolic blood pressure 126 mm[Hg] MOVING WORKER-BC Wilber Shammo Work Phone: [facility] 03-15-2023 08:43-0400 Body height 180.34 cm MOVING WORKER[employer]BC Wilber Shammo Work Phone: [facility] 03-15-2023 08:43-0400 Body temperature 98.2 [degF] MOVING WORKER-BC Wilber Shammo Work Phone: [facility] 03-15-2023 08:43-0400 Body weight 129.27 kg MOVING WORKER- Wilber Mckeon Work Phone: [facility] 01-17-2023 10:00-0400 Body weight 127.01 kg Denys Landa Other [facility] [employer] Other 01-17-2023 10:00-0400 Diastolic blood pressure 85 mm[Hg] Denys Landa Other [facility] [employer] Other 01-17-2023 10:00-0400 Systolic blood pressure 125 mm[Hg] Denys Landa Other [employer] [facility] [employer] Other Encounters Encounter Date Encounter Type Care Provider Facility Start: 11-15-2023 End: 11-15-2023 ambulatory ADRIAN MIGUEL Not Available Start: 11-02-2023 End: 11-02-2023 ambulatory HÉCTOR JEFF [facility] Start: 11-02-2023 End: 11-02-2023 Office outpatient visit 15 minutes Fred Chavez MD Work Phone: [facility] Comment on above: Essential hypertensi on affecting in second trimester (Primary Dx) Start: 10-31-2023 End: 10-31-2023 ambulatory KASSANDRA LINARES Not Available Start: 10-18-2023 End: 10-19-2023 ambulatory ADRIAN R PAR[facility] Start: 10-18-2023 Documentation procedure Fred Chavez MD Work Phone: Maternal- Medicine at [facility] Start: 10-13-2023 End: 10-13-2023 ambulatory ADRIAN PARIS Not Available Start: 09-22-2023 End: 09-23-2023 Orders Only Rossy Carrington RN Maternal- Medic ine at [facility] Comment on above: Pre-existing essenti al hypertension during in second trimester (Primary Dx); Advanced maternal age in multigravida, second trimester; Hypothyroid in , antepartum Start: 09-22-2023 End: 09-22-2023 Office consultation new/estab patient 60 min Héctor Aguilar MD Work Phone: Maternal- Medicine at [facility] Comment on above: Essential hypertensi on affecting [...] Bee MD Work Phone: Maternal- Medicine at [facility] Start: 08-19-2023 Telephone encounter Janae Ware [facility] [place] Start: 08-18-2023 End: 08-18-2023 ambulatory ADRIAN MIGUEL Not Available Start: 08-03-2023 ambulatory WILBER MCKEON Facility:[facility] Start: 07-21-2023 End: 07-21-2023 ambulatory KASSANDRA LINARES Not Available Start: 06-13-2023 End: 06-13-2023 ambulatory ADRIAN MIGUEL Not Available Start: 05-19-2023 End: 05-19-2023 ambulatory Denys Landa Other Aunt Bertha Other Start: 05-19-2023 Office outpatient vi sit 15 minutes Denys Landa [facility] G[facility] Start: 03-15-2023 End: 03-15-2023 ambulatory Denys Landa Facility:[facility] Start: 03-15-2023 End: 03-15-2023 Admission to same day surgery center [facility]- Wilber Hayleekelby Work Phone: [facility] Work Phone: Start: 03-15-2023 End: 03-15-2023 ambulatory MOVING WORKER-BC Wilber Aguilar Shamkelby Work Phone: [facility] Work Phone: Start: 01-26-2023 End: 01-27-2023 ambulatory WILBER SHAMMO [facility] Start: 01-26-2023 End: 01-27-2023 ambulatory Alyson Chiu Facility:[facility] Start: 01-26-2023 End: 01-26-2023 Lab Drop off Alyson Chiu [facility] Start: 01-26-2023 End: 01-26-2023 Patient encounter procedure Alyson Chiu [facility] Start: 01-20-2023 ambulatory WILBER SHAMMO Facility:[facility] Start: 01-17-2023 End: 01-17-2023 ambulatory Denys Landa Other Aunt Bertha Other Start: 01-17-2023 Office outpatient ne w 45 minutes Denys Landa [facility] G[facility] Start: 12-28-2022 End: 12-28-2022 ambulatory LUKE BOWENS . Facility: Start: 10-16-2022 End: 10-17-2022 ambulatory WILBER SHAMMO Facility:[facility] Start: 08-25-2022 Encounter for genera l adult medical examination without abnormal findings WILBER SHAMMO [facility] Start: 08-20-2022 End: 08-21-2022 ambulatory WILBER SHAMMO Facility:[facility] Start: 08-20-2022 End: 08-21-2022 Encounter for general adult medical examination without abnormal findings WILBER SHAMMO Facility:[facility] Procedures Date Procedure Procedure Detail Performing Clinician Start: 09-15-2023 Urnls dip stick/tablet rgnt non-auto w/o micrscp Kassandra ALBERTO Work Phone: Start: 06-08-2023 FREE CELL DNA (NON-[facility]) Not In System Ref Prov Start: 03-15-2023 Esophagogastroduodenoscopy MOVING WORKER-BC Wilber Mckeon Work Phone: Start: 08-01-2016 Appendectomy Alyson Chiu Start: 08-01-2016 Gastric sleeve Alyson Chiu Start: 08-01-2005 Cholecystectomy Alyson Chiu Arthroplasty of knee Alyson chamberlain Comment on above: Meniscus repair section Alyson Chiu Comment on above: x2 Plan of Treatment Date Care Activity Detail Author Start: 09-22-2024 Adult BMI Screening Adult BMI Screen ing [facility] Start: 09-22-2024 Tobacco Screening Tobacco Screening [facility] Start: 09-22-2024 End: 09-22-2024 US MFM with or without consult US MFM with or without consult Imaging Routine Pre-existing essential hypertension during in second trimester Advanced maternal age in multigravida, second trimester Hypothyroid in , antepartum Expected: 09/22/2024 (Approximate), Expires: 09/22/2024 [facility] Work Phone: Comment on above: Expected: 09/22/2024 (Approximate), Expires: 09/22/2024 Start: 04-01-2024 Influenza vaccination Influenza Vacc ine [facility] Start: 11-12-2023 Adult BMI Screening Adult BMI Screen ing [facility] Start: 11-02-2023 End: 11-02-2023 Telemedicine consultation with patient 11/02/2023 11:30 AM EDT Telemedicine Maternal- Medicine at [facility] [address] [place] [phone] Fred Chavez MD [address] [place], [place] [id number] Héctor Aguilar MD [address] [address] Maternal- Medicine at [facility] Start: 10-18-2023 End: 10-18-2023 Telemedicine consultation with patient 10/18/2023 1:30 PM EDT Telemedicine Maternal- Medicine at [facility] [address] [place] [address] Fred Chavez MD [address] [place] [address] Maternal- Medicine at [facility] Start: 10-18-2023 End: 10-18-2023 Patient encounter procedure 10/18/2023 12:30 PM EDT Appointment [facility] Ul[facility]ound [address] [place] [address] [facility] Start: 10-13-2023 End: 10-13-2023 Patient encounter procedure 10/13/2023 10:50 AM EDT Routine [facility] [address] [place] [phone] Adrian Miguel, [address] [place] [address] [facility] Start: 09-15-2023 End: 09-15-2024 CBC panel - Blood by Automated count CBC Lab Routine Diabetes mellitus screening Expected: 09/15/2023 (Approximate), Expires: 09/15/2024 [facility] Work Phone: Comment on above: Expected: 09/15/2023 (Approximate), Expires: 09/15/2024 Start: 09-15-2023 End: 09-15-2024 Measurement of glucose 1 hour after glucose challenge for glucose tolerance test Glucose tolerance, 1 hour Lab Routine Diabetes mellitus screening Expected: 09/15/2023 (Approximate), Expires: 09/15/2024 [facility] Comment on above: Expected: 09/15/2023 (Approximate), Expires: 09/15/2024 Start: 09-15-2023 End: 09-15-2024 Thyrotropin [Units/volume] in Serum or Plasma TSH Lab Routine Hypothyroidism, unspecified type (CMS/HCC) Expected: 09/15/2023 (Approximate), Expires: 09/15/2024 [facility] Comment on above: Expected: 09/15/2023 (Approximate), Expires: 09/15/2024 Start: 09-14-2023 End: 09-14-2023 Patient encounter procedure [facility] Start: 04-01-2023 Influenza vaccination Influenza Vacc ine [facility] Start: 03-15-2023 [facility] Start: 11-02-2007 Screening for malign ant neoplasm of cervix Pap Smear [facility] Start: 2005 DTaP,Tdap and Td Vaccines (1 - Tdap) DTaP,Tdap and Td Vaccines (1 - Tdap) [facility] Start: 2004 Adult BMI Follow Up Plan Adult BMI Follow Up Plan [facility] Start: 1998 Depression Screening Depression Scre ening [facility] Start: 1998 Tobacco Screening Tobacco Screening [facility] Hemoglobin A1c/Hemoglobin.total in Blood Hemoglobin A1c Lab Routine Diabetes mellitus screening Ordered: 09/15/2023 [facility] Comment on above: Ordered: 09/15/2023 Patient Education Hiatal hernia Diverticulosis [facility] Work Phone: Immunizations Immunization Date Immunization Notes Care Provider Alice calhoun 06-01-2022 influenza virus vaccine, unspecified formulation Alyson Chiu [facility] Payers Date Payer Category Payer Self-pay 2022 [employer] others) [id number] 2022 [employer] ( [employer] others) [id number] 2022 [employer] ( and others) [id number] 1985 Unknown [id number] [id number] 1986 Unknown [id number] 2.16.840.1.941106.3.579.2.593 1986 Unknown [id number] 2.16.840.1.672417.3.579.2.593 1986 Unknown [id number] 2.16.840.1.360526.3.579.2.727 1986 Unknown [id number] 2.16.840.1.894570.3.579.2.727 1986 Unknown [id number] 2.16.840.1.510216.3.579.2.727 1986 Unknown [id number] 2.16.840.1.921903.3.579.2.1286 1986 Unknown [id number] 2.16.840.1.009985.3.579.2.1286 1986 Unknown [id number] 2.16.840.1.123055.3.579.2.1286 1986 Unknown [id number] 2.16.840.1.729947.3.579.2.1286 1986 Unknown [id number] 2.16.840.1.323131.3.579.2.1259 1986 Unknown [id number] 2.16.840.1.567760.3.579.2.1259 1986 Unknown [id number] 2.16.840.1.766101.3.579.2.1259 1986 Unknown [id number] 2.16.840.1.026542.3.579.2.9 1986 Unknown [id number] 2.16.840.1.485226.3.579.2.1259 1986 Unknown [id number] 2.16.840.1.719706.3.579.2.1259 1986 Unknown [id number] 2.16.840.1.720895.3.579.2.1259 1959 [employer] ( and others) [id number] Unknown [id number] 2.16.840.1.829072.3.579.2.531 Social History Date Type Detail Facility Start: 08-24-2023 End: 09-22-2023 Sex Assigned At [facility] Start: 01-26-2023 Tobacco smoking status Ex-smoker (finding) [facility] Start: 03-15-2023 Tobacco smoking status NHIS Smoker (finding) [facility] Start: 1985 Sex Assigned At Female [facility] Tobacco smoking stat us NHIS Tobacco smoking consumption unknown [facility] Start: 1985 Sex Assigned At Not on file [facility] Start: 01-03-2023 End: 08-24-2023 Tobacco smoking status [facility] Never smoked tobacco [facility] Start: 01-03-2023 End: 08-24-2023 Tobacco use and exposure Smokeless tobacco non-user [facility] Start: 08-24-2023 End: 09-22-2023 Alcohol intake Ex-drinker (finding) [facility] Start: 08-24-2023 End: 09-22-2023 History of Social function [facility] Start: 04-11-2023 [facility] How often to you hav e [...] got money to buy more. Never True [facility] Start: 11-02-2023 Sexual orientation Heterosexual (finding) [facility] Goals Date Patient Goal Desired Activity /State Personal health goal Functional Status Date Assessment Result Facility 01-26-2023 Functional Status No [facility] Clinical Notes 01-17-2023 to 11-02-2023 Héctor Aguilar MD - 11/02/2023 11:30 AM John Paul Chavez MD - 10/18/2023 2:24 PM Jorge Carrington RN - 09/22/2023 10:00 AM Gisela Aguilar MD - 09/22/2023 10:00 AM EST Note Date & Type Note Facility 11-02-2023 History of Presen t illness Narrative REASON FOR TELEMEDICINE VIDEO OFFICE VISIT: 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 HISTORY OF PRESENT ILLNESS: Lisa Allison is a pleasant 38 y.o. G [...] Depression Hypertension Hypothyroidism Kidney stones Migraines Seizure ([facility]) REVIEW OF SYSTEMS: Head and Neck: Negative [...] you for allowing me to participate in Lisa vanegas. If there are any questions, please do not hesitate to call me. Sincerely, HÉCTOR AGUILAR MD Video Visit via Real-time Synchronous Audiovisual Provider Location: [facility] AT [address] [address] Patient Location: Patient's home Patient Location Pharmacy Technician Trainee: None Video Visit Consent Statement: I discussed [...] that there are some limitations compared to [id number] evaluations. We elected to proceed. documented in this encounter [facility] 10-18-2023 History of Presen t illness Narrative [...] telehealth rescheduled visit. Fred Chavez MD Professor, [facility] Maternal Medicine (we called the patient ourselves and were not able to successfully connect with her) documented in this encounter [facility] 09-22-2023 History of Presen t illness Narrative Headache/epigastric pain/blurry vision/swelling? No Cramping/contractions? No Abnormal vaginal discharge? No Spotting/vaginal bleeding? No Loss of fluid like your water may have broken? No Cats in the home? No Do you change the litter box? N/A Flu vaccine? No Genetic testing done this here or other office? Yes Have you been seen here at [facility] in a previous ? No Recent ER visits or hospitalizations? No Bring blood sugar log or meter with you today? (Please bring them with you for every visit at [facility]) N/A Traveled outside the country in the past 6 month No Any concerns that you would like me to mention to the provider today? No REASON FOR CONSULTATION: Maternal essential hypertension. HISTORY OF PRESENT ILLNESS: Lisa Allison is a pleasant 37 y.o. G [...] Depression Hypertension Hypothyroidism Kidney stones Migraines Seizure ([facility]) PAST OBSTETRICAL HISTORY: OB History 4 Para [...] and the other consultants, we search on [employer] and all the available care everywhere epic I did review all the imaging studies of the patient available on EMR, ordered by the primary care physician and the other career consultant HABITS: Patient activity no restrictions, diet [...] T4 is very low in , the infant is at risk for impaired psychomotor function [...] for completion of targeted anatomy at our [facility] site. 5. Serial growth ultrasounds every 4 [...] patient is in complete care of her rewind operator. Patient does have ultrasound office visit scheduled with us Thank you for allowing me to participate in Lisa Allison . If there any questions please do not hesitate to contact us. Sincerely, HÉCTOR AGUILAR MD documented in this encounter [employer] 09-15-2023 History of Presen t illness Narrative Reason for Appointment: Patient ID: Lisa Allison is a 37 y.o. female who [...] anxiety GERD (gastroesophageal reflux disease) HTN (hypertension) ([facility]) Hypothyroidism (acquired) ([facility] Iron deficiency anemia Kidney stones Migraines ([facility]) Seizure ([facility]) 2019 Family History Problem Relation Name Age [...] hour glucose order to have done at [facility]. Follow Up: Patient is to return to [...] of: REMY Valdes documented in this encounter [facility] 08-19-2023 Miscellaneous Notes Formattin g of this note might be different from the original. LEFT A MESSAGE TO SCHEDULE USN AND CONSULT. 08/19/2023 1043 documented in this encounter [employer] 08-19-2023 Telephone encount er Note LEFT A MESSAGE TO SCHEDULE USN AND CONSULT. 08/19/2023 104 [facility] [employer] 05-19-2023 Evaluation note Encounter Date Diagnosis Assessment [...] start metamucile and probiotics RTO 3 months Aunt Bertha Other [facility] Discharge instructions Patient Education 01/26/2023 [...] include: ?8 oz (237 mL) of milk, hnropua-sdaiitbvgzht-xhmyo milk, and calcium- fortifiedfruit juice. Calcium-fortified means [...] ?Spinach (cooked), rhubarb, beets, sweet potatoes, and Irish chard. ?Peanuts. ?Potato chips, swazi fries, and baked potatoes with skin on. ?Nuts and nut products. ?Chocolate. If you regularly take a diuretic medicine, make sure to eat at least 1 or 2 servings of fruits or vegetables that are high in potassium each day. These include: ?Avocado. ?Banana. ?Dakota, prune, carrot, or tomato juice. ?Baked potato. [...] magnesium, fish oil, or vitamin B6. Take zthd-yem-oiciwzt and prescription medicines only as told by [...] Casseroles. Pizza. Lasagna. Frozen meals. Potato chips. Danish fries. The items listed above may not [...] provider. Document Revised: 03/29/2022 Document Reviewed: 03/29/2022 [employer] Patient Education 2022 [employer]. Follow Up Care 12/28/2022 12:57:40 With:Aram RUSSELL, Alyson Burdick, URL, URO Address: When:Within 6 Month(s) Comments:irasema FALK & YAMILETH [facility] 06-19-2023 Evaluation note* Encounter Date Diagnosis Assessment Notes Treatment Notes Treatment Clinical Notes Dec, Iron deficiency anemia (ICD-10 - D50.9) Will proceed with EGD Will request recent lab work done at [place]. Dec, GERD (gastroesophageal reflux disease) (ICD-10 - K21.9) Patient to continue on Omeprazole 40mg Dec, Diarrhea (ICD-10 - R19.7) Will proceed with Colonoscopy. Aunt Bertha Other Evaluation + Plan note Future Appointments Appointment Date:08/03/2023 10:00:00 AM Scheduled Provider:Alyson Chiu MD Location:[facility] Appointment Type:URO Office Visit [facility] evaluation + Plan note Future Appointments Appointment Date:08/03/2023 10:00:00 AM Scheduled Provider:Alyson Chiu MD Location:[facility] Appointment Type:URO Office Visit Diagnostic Tests Pending * Calculi Analysis [facility] Diagnosis Onset Date Resolution Status Iron deficiency anemia [facility] Work Phone: Evaluation note* Diagnosis Second trimester state, incidental Diabetes mellitus screening Screening for diabetes mellitus 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) Hypothyroidism, unspecified type (CMS/HCC) documented in this encounter [facility] note* Diagnosis Essential hypertension affecting in second trimester- Primary [facility] Diagnosis Pre-existing essential hypertension during in second trimester- Primary Advanced maternal age in multigravida, second trimester Hypothyroid in , antepartum [facility] Diagnosis Essential hypertension affecting in second trimester- Primary [facility] N[facility]ative - Reported* Type Description [...] left knee meniscus Hospitalization History see above Aunt Bertha Other Hospital course Narrative No data available for this section [facility] Hospital Discharge instructions No data available for this section [facility] Additional Instructions DISCHARGE INSTRUCTIONS FOR [...] if you have any problems. -[phone] Work Phone: InstructionsNot on filedocumented in this encounter [facility] on filedocumented in this encounter [facility]Not on filedocumented in this encounter [facility] on filedocumented in this encounter [facility]ructionsNot on filedocumented in this encounter [facility]ructionsNot on filedocumented in this encounter [facility] No data available for this section [facility] Summary Purpose Family History No Family [...] Referral Specialty Diagnoses / Procedures Referred By Contcedrick t Referred To Contact Maternal and Medicine Diagnoses Pre-existing essential hypertension during in second trimester Advanced maternal age in multigravida, second trimester Hypothyroid in , antepartum Procedures US MFM with or without consult Héctor Aguilar MD [address] [facility], [address] [place] [address] [facility] Maternal Med [address] [place] [address] Referral ID Status Reason Start Date Expiration Date V isits Requested Visits Authorized [id number] Pending Review 09/22/2023 09/21/2024 1 1 Additional Source Comments INFORMATION SOURCE (unrecogn ized section and content) DATE CREATED AUTHOR 01/07/2023 [facility] DATE CREATED AUTHOR AUTHOR'S ORGANIZ ATION 03/17/2023 [facility] DATE CREATED AUTHOR AUTHOR'S ORGANIZ ATION 08/05/2023 [facility] DATE CREATED AUTHOR AUTHOR'S ORGANIZ ATION 10/19/2023 [facility] DATE CREATED AUTHOR AUTHOR'S ORGANIZ ATION 11/03/2023 [facility] DATE CREATED AUTHOR AUTHOR'S ORGANIZ ATION 11/16/2023 [facility] dical Specialists EPIC REASON FOR VISIT (unrecogniz ed section and content) Reason Comments Routine Visit Reason Comments Advanced Maternal Age Chronic Hypertension Hypothyroidism Patient Care team informatio n (unrecognized section and content) Team Status: Active Member Role Status Dates Wilber Mckeon , [facility] Primary Care Provider Active Team Status: Inactive Member Role Status Dates Denys Landa MD Attending Provider Active Wilber Mckeon , [facility] Primary Care Provider Active Manager It Security Relationship Specialty Start Date End Date No Pcp, [place] [address] PCP - General Family Medicine 10/18/23 Manager It Security Relationship Specialty Start Date End Date No Pcp, [place] [address] PCP - General Family Medicine 10/18/23 FOR [...] BE BASED ON THE PRIMARY CLINICAL RECORDS. [employer] provides no warranty or guarantee of the accuracy or completeness of information in this document.
[2023-11-17 20:04] VITALS: TEMP 36.1
[2023-11-17 20:05] VITALS: BP 132/70; PULSE 86
--- NOTE | 2023-11-17 20:07 | US_ITS ---
[address] [address] Patient Name: TIFFANI GROSSMAN MRN: [id number] date: 1985 Sex: F Assigned Patient Location: [facility] Current Patient Location: Accession/Order Number: [id number] Exam Date: 11/17/2023 20:12 Report Date: 11/18/2023 07:40 At the request of: YOAN TOLEDO Procedure: US OB BPP w non-stress EXAMINATION: US OB BPP w non-stress HISTORY: HYPOTHYROIDISM E03.9 COMPARISON: Ultrasound OB growth 11/15/2023 TECHNIQUE: Ultrasound biophysical profile was performed in the radiology department. BREATHING MOVEMENTS: 2.0 GROSS BODY MOVEMENTS: 2.0 TONE: 2.0 QUALITATIVE AMNIOTIC FLUID VOLUME: 2.0 PRESENTATION: CEPHALIC HEART RATE: 143.6 bpm bpm. AMNIOTIC FLUID VOLUME: 12.3 cm GESTATIONAL AGE: 33 weeks 3 days CONCLUSION: Total biophysical profile score 8.0. Electronically authenticated by: JOIE AYALA Date: 11/18/2023 07:40
[2023-11-17 20:08] VITALS: BP 132/70; PULSE 86; TEMP 36.1
== END 2023-11-17 21:45 | disposition home or self-care (01) ==
LOC: US 19:52 → FBC 19:58
PROVIDERS: PCP Nurse Practitioner Primary Care; Visit Provider Obstetrics & Gynecology
DX: O99.283 Endocrine, nutritional and metabolic diseases complicating pregnancy, third trimester (principal); E03.9 Hypothyroidism, unspecified; Z3A.33 33 weeks gestation of pregnancy; R79.89 Other specified abnormal findings of blood chemistry
CPT/HCPCS: 76818

== ENCOUNTER 2023-11-25 06:55 | Outpatient (OUT) | payer OTHER, SELFPAY ==
--- OUTSIDE RECORDS SUMMARY | 2023-11-25 06:58 | XMS_ITS | CCD ---
Author Organization [facility] Care Team Providers Care Deburrer Name Role Phone KWAN ., LUKE Admitting [...] SHAMMO, WILBER Consulting Unavailable Denys Landa Unavailable [phone] SHAMMO, WILBER TOMASA Primary Care Physician MD Denys Landa Attending Provider Shammo, [facility] Wilber T Primary Care Provider Denys Landa Attending Unavailabl e Denys Landa [...] sources) Penicillin Drug Allergy 3 Unknown [facility] [place] [facility] (15 sources) Penicillins; Translations: [penicillins] Allergy to substance 3 Anaphylaxis (disorder), Anaphylaxis, Unknown [facility] (7 sources) topiramate; Translations: [TOPIRAMATE] Drug Allergy 4 [facility] (2 sources) Penicillin G Drug Allergy 3 Unknown [facility] (2 sources) Topiramate Allergy to substance 3 [facility] Medications Current Medications Medication Drug Class(es) [...] Active Start: 01-26-2023 take 1 capsule by [facility] once daily levothyroxine 137 mcg (0.137 mg) [...] 01/26/23 Status: [facility] Meclizine HCl 25 MG [...] 09/09/2022 Active take 1 capsule by mo [facility] once daily Metoprolol Succinate 100 MG 1 [...] UA Negative Negative - 4(70) +++ mg/dL [facility] Blood, UA Negative Negative - 50 Maikol/mcL [facility] Clarity, UA Clear [facility] Color, UA Yellow [facility] Glucose, UA Negative Negative - 2000(110) ++++ mg/dL [facility] Interpretation and review of laboratory results Abnormal [facility] Ketones, UA Negative Negative - 160(16) ++++ mg/dL [facility] Leukocytes, UA Negative Negative - 500+++ Endy/mcL [facility] Nitrite, UA Negative Negative - Positive [facility] pH, UA 6.0 5 - 9 [facility] Protein, UA Trace Negative - 1999(20) ++++ mg/dL [facility] Spec Grav, UA 1.025 1 - 1.03 [facility] Urobilinogen, UA 0.2 0.2 - 12 mg/dL [facility] Reminderson 08-05-2023 Reminders - From: wEa Valentin To: EU - Recalls Lue; Sent: [...] [facility] Free Cell DNAon 2022 [facility] HCG ( test) IA.rapi d Ql (U)Ordered By: Denys Landa on 03-15-2023 HCG ( test) Ql (U) Negative [facility] HCG,Urineon 03-15-2023 Beta HCG ( test) Ql (U) Negative Normal [facility] Comment on above: Result Comment: PERF ORMED BY: [place] [address] PATHOLOGIST [employer]CHNIC[employer] SALVADOR LEHMAN M.D. Performed By: #### U HCG #### [address] 03-15-2023 L Specimen: [id number] Received: 03/15/23 Status: KENISHA Tavon Num: [id number] Spec Type: Surgical Subm Dr: Denys Landa MD Tissues: A Duodenum - Biopsy (DUODENAL BX) B STOMACH FOR HP (ANTRAL BX HP) C Esophagus Biopsy (ESOPHAGUS BX) Procedures: HE/6, Gross/Micro L4/3, H PYLORI Age/ Patient Sex Location Account Attending Physician Lisa Allison 37/F [id number] Denys Landa MD SPEC NUM: [id number] RECD: 03/15/23 STATUS: KENISHA MONTES DE OCA NUM: [id number] RODERICK: 03/15/23- SUBM DR: Denys Landa MD ENTERED: 03/15/23-[address] [facility] [address]: CESAR TYPE: Surgical DEPT: [...] eosinophilic exocytosis or eosinophilic esophagitis identified Specimen: [id number] Received: 03/15/23 Status: KENISHA Montes De Oca Num: [id number] Spec Type: Surgical Subm Dr: Denys Landa MD Tissues: A Duodenum - Biopsy (DUODENAL BX) B STOMACH FOR HP (ANTRAL BX HP) C Esophagus Biopsy (ESOPHAGUS BX) Procedures: HE/6, Gross/Micro L4/3, H PYLORI Patient: Lisa Allison [id number] (Continued) Specimen: [id number] Received: 03/15/23 (Continued) Signed (signature on file) Chin-Fei Obrien MD 03/16/23 1658 Specimen: [id number] Received: 03/15/23 Status: KENISHA Montes De Oca Num: [id number] Spec Type: Surgical Subm Dr: Deyns Landa MD Tissues: A Duodenum - Biopsy (DUODENAL BX) B STOMACH FOR HP (ANTRAL BX HP) C Esophagus Biopsy (ESOPHAGUS BX) Procedures: HE/6, Gross/Micro L4/3, H PYLORI Patient: Estefany,Lisa R [id number] (Continued) Specimen: [id number] Received: 03/15/23 (Continued) Clinical Information LARISSA, rule [...] microscopic examination confirms the diagnosis. CPT Codes 09879h8, 66514 -- (more content not included)... Normal [facility] Calculus Analysison 02-06-20 23 Calcium oxalate dihydrate Infrared spectroscopy (Stone) [Mass fraction] 30 % Invalid Interpretation Code [facility] Comment on above: Performed By: #### 1 [id number] #### [facility] [address] [place] [address] Calcium oxalate monohydrate (Stone) [Mass fraction] 70 % Invalid Interpretation Code [facility] Comment on above: Performed By: #### 1 [id number] #### [facility] [address] [place] [address] Color (Stone) Brown Invalid Interpretation Code [facility] Comment on above: Performed By: #### 1 [id number] #### [facility] [address] [place] [address] Composition Comment Invalid Interpretation Code [facility] Comment on above: Result Comment: Perc entage (Represents the % composition) Performed By: #### 1 [id number] #### [facility] [address] [place] [address] Disclaimer: Comment Invalid Interpretation Code [facility] Comment on above: Result Comment: This test was developed and its performance characteristics determined by [facility]. It has not been cleared or approved by the Food and Drug Administration. Performed at: [facility] [address] [id number] PhD Roya Prajapati Performed By: #### 1 [id number] #### [facility] [address] [place] [address] Laboratory comment Asa (Report) Comment Invalid Interpretation Code [facility] Comment on above: Result Comment: rBad tafoya questions regarding Calculi Analysis [facility] at: [phone]. Performed By: #### 1 [id number] #### [facility] [address] [place] [address] Please Note: Comment Invalid Interpretation Code [facility] Comment on above: Result Comment: Calc dory report will follow via computer, mail or belt weaver delivery. Performed By: #### 1 [id number] #### [facility] [address] [place] [address] Size (Stone) [Entitic vol] 3x3 Invalid Interpretation Code [facility] Comment on above: Result Comment: Mult iple pieces received. Dimensions of the largest piece reported. Performed By: #### 1 [id number] #### [facility] [address] [place] [address] Specimen source subject Nom Comment Invalid Interpretation Code [facility] Comment on above: Result Comment: Not provided Performed By: #### 1 [id number] #### [facility] [address] [place] [address] Stone Photo Comment Invalid Interpretation Code [facility] Comment on above: Result Comment: Phot ograph will follow under a separate cover Performed By: #### 1 [id number] #### [facility] [address] [place] [address] Weight (Stone) 8 mg Invalid Interpretation Code [facility] Comment on above: Performed By: #### 1 [id number] #### [facility] [address] [place] [address] [employer]son 01-26-2023 Forms [id number] #1.00CD:127 Normal [facility] Patient Educationon 01-27-20 Patient Education Nephrology [...] Spinach (cooked), rhubarb, beets, sweet potatoes, and Albanian chard. ? Peanuts. ? Potato chips, beninese fries, and baked potatoes with skin on. ? Nuts and nut products. ? Chocolate. ? If you regularly take a diuretic medicine, make sure to eat at least 1 or 2 servings of fruits or vegetables that are high in potassium each day. These include: ? Avocado. ? Banana. ? Taliaferro, prune, carrot, or tomato juice. ? Baked [...] fish oil, or vitamin B6. ? Take cvaq-xvb-ryyjaun and prescription medicines only as told by your health care provider. These include supplements. What foods should I limit? Limit your in (more content not included)... Normal [facility] RAD - MISCon 01-26-2023 RAD - MISC [id number] #1.00CD:127 [facility] Screenson 01-26-2023 Screens [id number] #1.00CD:127 [facility] Urology Office/Clinic Noteon 01-26-2023 Urology Office/Clinic Note Chief Complaint kidney stones HPI Staff Pt is a new pt, never before seen in our office. Here today due to kidney stones. [facility] 12/27/22 due to Rt flank pain [...] for this patient from Dr. Herron @ [facility]. I have reviewed and verified the [...] Pt had gastric bypass in 2016 in [place]. Has had diarrhea since she had her [...] Nitrite Uri (more content not included)... Normal [facility] Comment on above: Result Comment: Elec tronically Signed By: Aram RUSSELL, Alyson Burdick\.br\Date and Time Signed: 01/26/23 21:46 EDT\.br\Electronically Co-Signed By: Ewa Valentin\.br\Date and Time Co-Signed: 01/26/23 10:54 EDT ED Note-Physicianon 01-24-20 ED Note-Physician [id number]#1.00CD:127 Normal [facility] Lab Reportson 01-23-2023 Lab Reports [id number]#1.00CD:127 Normal [facility] RAD - CT Reporton 01-23-2023 RAD - CT Report [id number]# 1.00CD:127 Normal [facility] CBC AUTO DIFFon 12-28-2022 BASO # 0.0 103/ul Normal 0.0-0.1 [facility] Comment on above: Performed By: #### F ERR, FETIBC #### [facility] [place] [facility] [address] [place] [address] Dr. Michele Obrien Basophils/100 WBC (Bld) 0.5 % Normal 0.2-2.0 [facility] [place] [facility] Comment on above: Performed By: #### F ERR, FETIBC #### [facility] [place] [facility] [address] [address] [address] Michele Obrien EO # 0.2 103/ul Normal 0.0-0.7 [facility] [place] [facility] Comment on above: Performed By: #### F ERR, FETIBC #### [facility] [place] [facility] [address] [address] [address] Michele Obrien Eosinophils/100 WBC (Bld) 2.6 % Normal 0.9-7.0 [facility] [place] [facility] Comment on above: Performed By: #### F ERR, FETIBC #### [facility] [place] [facility] [address] [address] [address] Michele Obrien Erythrocyte distribution width (RBC) [Ratio] 19.1 % Critically high 11.0-15.0 [facility] Comment on above: Performed By: #### F ERR, FETIBC #### [facility] [place] [facility] [address] [place] [address] Dr. Michele Obrien Hematocrit (Bld) [Volume fraction] 37.6 % Normal 36.0-48.0 [facility] Comment on above: Performed By: #### F ERR, FETIBC #### [facility] [place] [facility] [address] [place] [address] Dr. Michele Obrien Hemoglobin (Bld) [Mass/Vol] 11.9 g/dL Critically low 12.0-16.0 [facility] Comment on above: Performed By: #### F ERR, FETIBC #### [facility] [place] [facility] [address] [place] [address] Dr. Michele Obrien IG # 0.03 10e3/ul Normal 0.00-0.03 [facility] Comment on above: Performed By: #### F ERR, FETIBC #### [facility] [place] [facility] [address] [place] [address] Dr. Michele Obrien IG % 0.3 % Normal 0.0-0.5 [facility] Comment on above: Performed By: #### F ERR, FETIBC #### [facility] [place] [facility] [address] [place] [address] Dr. Michele Obrien LYMPH # 1.6 103/ul Normal 1.2-3.8 [facility] Comment on above: Performed By: #### F ERR, FETIBC #### [facility] [place] [facility] [address] [address] [address] Michele Obrien Lymphocytes/100 WBC (Bld) 18.4 % Critically low 20.5-60.0 [facility] Comment on above: Performed By: #### F ERR, FETIBC #### [facility] [place] [facility] [address] [place] [address] Dr. Michele Obrien MANUAL DIFF REQ NO Normal [facility] Comment on above: Performed By: #### F ERR, FETIBC #### [facility] [place] [facility] [address] [address] [address] Michele Obrien MCH (RBC) [Entitic mass] 23.7 pg Critically low 26.7-34.0 [facility] Comment on above: Performed By: #### F ERR, FETIBC #### [facility] [place] [facility] [address] [place] [address] Dr. Michele Obrien MCHC (RBC) [Mass/Vol] 31.6 g/dL Normal 29.9-35.2 [facility] [place] [facility] Comment on above: Performed By: #### F ERR, FETIBC #### [facility] [place] [facility] [address] [place] [address] Dr. Michele Obrien MCV (RBC) [Entitic vol] 74.9 fL Critically low 81.0-99.0 [facility] [place] [facility] Comment on above: Performed By: #### F ERR, FETIBC #### [facility] [place] [facility] [address] [place] [address] Dr. Michele Obrien MONO # 0.5 103/ul Normal 0.3-0.8 [facility] [place] [facility] Comment on above: Performed By: #### F ERR, FETIBC #### [facility] [place] [facility] [address] [place] [address] Dr. Michele Obrien Monocytes/100 WBC (Bld) 5.9 % Normal 1.7-12.0 [facility] [place] [facility] Comment on above: Performed By: #### F ERR, FETIBC #### [facility] [place] [facility] [address] [place] [address] Dr. Michele Obrien NEUT # 6.4 103/ul Normal 1.4-6.5 [facility] [place] [facility] Comment on above: Performed By: #### F ERR, FETIBC #### [facility] [place] [facility] [address] [place] [address] Dr. Michele Obrien Neutrophils/100 WBC (Bld) 72.3 % Normal 43.0-75.0 [facility] [place] [facility] Comment on above: Performed By: #### F ERR, FETIBC #### [facility] [place] [facility] [address], [place] [address] Dr. Michele Obrien Platelet mean volume (Bld) [Entitic vol] 10.2 fL Normal 9.5-13.5 [facility] [place] [facility] Comment on above: Performed By: #### F ERR, FETIBC #### [facility] [place] [facility] [address], [place] [address] Dr. Michele Obrien PLT 243 103/ul Normal 150-450 [facility] [place] [facility] Comment on above: Performed By: #### F ERR, FETIBC #### [facility] [place] [facility] [address], [place] [address] Dr. Michele Obrien RBC 5.02 106/ul Normal 4.20-5.40 [facility] [place] [facility] Comment on above: Performed By: #### F ERR, FETIBC #### [facility] [place] [facility] [address], [place] [address] Dr. Michele Obrien WBC 8.9 103/ul Normal 4.0-11.0 [facility] [place] [facility] Comment on above: Performed By: #### F ERR, FETIBC #### [facility] [place] [facility] [address], [place] [address] ABD/PELVIS WO CONon [...] by: ALEXA WHITE Date: 2022-12-28 02:25 Normal [facility] ER URINE PROFILEon 3 Bilirubin Ql (U) Negative Normal NEGATIVE [facility] Comment on above: Performed By: #### H IV12 #### [facility] [place] [facility] [address] [place] [address] Dr. Michele Obrien Clarity (U) CLEAR Normal CLEAR [facility] Comment on above: Performed By: #### H IV12 #### [facility] [place] [facility] [address] [address] [address] Michele Obrien Color (U) LT. YELLOW Normal YELLOW [facility] Comment on above: Performed By: #### H IV12 #### [facility] [place] [facility] [address] [place] [address] Dr. Michele Obrien ERUCHARLES A micrscopic examination will be performed if indicated. Normal [facility] Comment on above: Performed By: #### H IV12 #### [facility] [place] [facility] [address] [place] [address] Dr. Michele Obrien Glucose Ql (U) Negative Normal NEGATIVE [facility] Comment on above: Performed By: #### H IV12 #### [facility] [place] [facility] [address] [place] [address] Dr. Michele Obrien Hemoglobin Ql (U) MODERATE Abnormal NEGATIVE [facility] Comment on above: Performed By: #### H IV12 #### [facility] [place] [facility] [address] [place] [address] Dr. Michele Obrien Ketones Ql (U) Negative Normal NEGATIVE [facility] Comment on above: Performed By: #### H IV12 #### [facility] [place] [facility] [address] [place] [address] Dr. Michele Obrien LEUKOCYTES Negative Normal NEGATIVE [facility] Comment on above: Performed By: #### H IV12 #### [facility] [place] [facility] [address] [place] [address] Dr. Michele Obrien Nitrite Ql (U) Negative Normal NEGATIVE [facility] Comment on above: Performed By: #### H IV12 #### [facility] [place] [facility] [address] [place] [address] Dr. Michele Obrien pH (U) 5.5 [pH] Normal 5-9 [facility] Comment on above: Performed By: #### H IV12 #### [facility] [place] [facility] [address] [place] [address] Dr. Michele Obrien SPEC GRAVITY 1.025 Normal 1.005-<=1.025 [facility] Comment on above: Performed By: #### H IV12 #### [facility] [place] [facility] [address] [place] [address] Dr. Michele Obrien UA PROTEIN Negative Normal NEGATIVE/ TRACE [facility] Comment on above: Performed By: #### H IV12 #### [facility] [place] [facility] [address] [address] [address] Michele Obrien UR MICRO IND INDICATED Normal [facility] Comment on above: Performed By: #### H IV12 #### [facility] [place] [facility] [address] [place] [address] Dr. Michele Obrien Urobilinogen Qn (U) 0.2 {Ijeoma'U}/dL Normal 0.2 - 1. 0 [facility] Comment on above: Performed By: #### H IV12 #### [facility] [place] [facility] [address] [place] [address] Dr. Michele Obrien PREG HCG QUALon 12-28-2022 , QUAL Negative Normal NEGATIVE [facility] Comment on above: Performed By: #### P REG #### [facility] [place] [facility] [address] [place] [address] Dr. Michele Obrien PROF 14(COMP METB)on 023 Albumin [Mass/Vol] 3.4 g/dL Normal 3.4-5.0 [facility] Comment on above: Performed By: #### C MP #### [facility] [place] [facility] [address] [place] [address] Dr. Michele Obrien Albumin/Globulin [Mass ratio] 1.1 {ratio} Normal [facility] Comment on above: Performed By: #### C MP #### [facility] [place] [facility] [address] [place] [address] Dr. Michele Obrien ALP [Catalytic activity/Vol] 73 U/L Normal 46-116 [facility] Comment on above: Performed By: #### C MP #### [facility] [place] [facility] [address] [address] [address] Michele Obrien ALT [Catalytic activity/Vol] 18 U/L Normal 14-59 [facility] Comment on above: Performed By: #### C MP #### [facility] [place] [facility] [address] [address] [address] Michele Obrien Anion gap [Moles/Vol] 11.9 mmol/L Normal [facility] Comment on above: Performed By: #### C MP #### [facility] [place] [facility] [address] [address] [address] Michele Obrien AST [Catalytic activity/Vol] 13 U/L Critically low 15-37 [facility] Comment on above: Performed By: #### C MP #### [facility] [place] [facility] [address] [address] [address] Michele Obrien Bilirubin [Mass/Vol] 0.1 mg/dL Critically low 0.2-1.0 [facility] Comment on above: Performed By: #### C MP #### [facility] [place] [facility] [address] [address] [address] Michele Obrien Calcium [Mass/Vol] 8.6 mg/dL Normal 8.5-10.1 [facility] Comment on above: Performed By: #### C MP #### [facility] [place] [facility] [address] [address] [address] Michele Obrien Chloride [Moles/Vol] 105 mmol/L Normal 98-107 [facility] [place] [facility] Comment on above: Performed By: #### C MP #### [facility] [place] [facility] [address] [address] [address] Michele Obrien CO2 [Moles/Vol] 26.7 mmol/L Normal 21.0-32.0 [facility] Comment on above: Performed By: #### C MP #### [facility] [place] [facility] [address] [address] [address] Michele Obrien Creatinine [Mass/Vol] 0.85 mg/dL Normal 0.55-1.02 [facility] Comment on above: Performed By: #### C MP #### [facility] [place] [facility] [address] [address] [address] Michele Obrien EGFR-AF MALDIVIAN >60 Normal >=60 [facility] Comment on above: Performed By: #### C MP #### [facility] [place] [facility] [address] [address] [address] Michele Obrien EGFR-NON AF MALDIVIAN >60 Normal >=60 [facility] Comment on above: Performed By: #### C MP #### [facility] [place] [facility] [address] [address] [address] Michele Obrien Globulin (S) [Mass/Vol] 3.1 g/dL Normal [facility] Comment on above: Performed By: #### C MP #### [facility] [place] [facility] [address] [place] [address] Dr. Michele Obrien Glucose [Mass/Vol] 123 mg/dL Critically high 74-106 [facility] Comment on above: Performed By: #### C MP #### [facility] [place] [facility] [address] [address] [address] Michele bOrien Potassium [Moles/Vol] 3.6 mmol/L Normal 3.5-5.1 [facility] Comment on above: Performed By: #### C MP #### [facility] [place] [facility] [address] [place] [address] Dr. Mcihele Obrien Protein [Mass/Vol] 6.5 g/dL Normal 6.4-8.2 [facility] Comment on above: Performed By: #### C MP #### [facility] [place] [facility] [address] [address] [address] Michele Obrien Sodium [Moles/Vol] 140 mmol/L Normal 136-145 [facility] Comment on above: Performed By: #### C MP #### [facility] [place] [facility] [address] [address] [address] Michele Obrien Urea nitrogen [Mass/Vol] 14.0 mg/dL Normal 7.0-18.0 [facility] Comment on above: Performed By: #### C MP #### [facility] [place] [facility] [address] [address] [address] Michele Obrien Urea nitrogen/Creatinine [Mass ratio] 16.5 mg/mg Normal [facility] [place] [facility] Comment on above: Performed By: #### C MP #### [facility] [place] [facility] [address] [place] [address] Dr. Michele Obrien URINE MICROSCOPIC ONLYon BACTERIA TRACE Abnormal NONE SEEN [facility] [place] [facility] Comment on above: Performed By: #### H IV12 #### [facility] [place] [facility] [address] [place] [address] Dr. Michele Obrien Bacteria identified Cx Nom (U) NOT INDICATED Normal [facility] [place] [facility] Comment on above: Performed By: #### H IV12 #### [facility] [place] [facility] [address] [place] [address] Dr. Michele Obrien CAST NONE SEEN Normal NONE SEEN [facility] [place] [facility] Comment on above: Performed By: #### H IV12 #### [facility] [place] [facility] [address] [place] [address] Dr. Michele Obrien Crystals LM Nom (Urine sed) NONE SEEN Normal NONE SEEN [facility] [place] [facility] Comment on above: Performed By: #### H IV12 #### [facility] [place] [facility] [address] [place] [address] Dr. Michele Obrien Epithelial cells LM Ql (Urine sed) FEW Abnormal NONE SEEN /RARE [facility] [place] [facility] Comment on above: Performed By: #### H IV12 #### [facility] [place] [facility] [address] [place] [address] Dr. Michele Obrien MUCOUS TRACE Abnormal NONE SEEN [facility] [place] [facility] Comment on above: Performed By: #### H IV12 #### [facility] [place] [facility] [facility] [address] [place] [address] Dr. Michele Obrien RBC 20-50 Abnormal 0-2 [facility] Comment on above: Performed By: #### H IV12 #### [facility] [address] [place] [address] Dr. Michele Obrien WBC 0-2 Abnormal NONE SEEN [facility] Comment on above: Performed By: #### H IV12 #### [facility] [address] [place] [address] Dr. Michele Obrien HIV 1 AND 2 WITH REFLEXon HIV Screen 4th Generation wRfx Non-Reactive Normal Non Reactive [facility] Comment on above: Result Comment: HIV Negative HIV-1/HIV-2 antibodies and HIV-1 p24 antigen were NOT detected. There is no laboratory evidence of HIV infection. Performed By: #### H IV12 #### [facility] [address] [place] [address] Dr. Michele Obrien FERRITINon 10-16-2022 Ferritin [Mass/Vol] 6.0 ng/mL Critically low 6.2-137.0 [facility] Comment on above: Performed By: #### F ERR, FETIBC #### [facility] [address] [place] [address] Dr. Michele Obrien FREE T3on 10-16-2022 FREE T3 1.87 pg/mlL Critically low 2.18-3.98 [facility] Comment on above: Performed By: #### H IV12 #### [facility] [address] [place] [address] Dr. Michele Obrien HEMOGRAM AND PLATELon 2022 Hematocrit (Bld) [Volume fraction] 35.7 % Critically low 36.0-48.0 [facility] Comment on above: Performed By: #### H H #### [facility] [address] [place] [address] Dr. Michele Obrien Hemoglobin (Bld) [Mass/Vol] 10.4 g/dL Critically low 12.0-16.0 [facility] Comment on above: Performed By: #### H H #### [facility] [address] [place] [address] Dr. Michele Obrien MCH (RBC) [Entitic mass] 20.0 pg Critically low 26.7-34.0 [facility] Comment on above: Performed By: #### H H #### [facility] [address] [place] [address] Dr. Michele Obrien MCHC (RBC) [Mass/Vol] 29.1 g/dL Critically low 29.9-35.2 [facility] Comment on above: Performed By: #### H H #### [facility] [address] [place] [address] Dr. Michele Obrien MCV (RBC) [Entitic vol] 68.5 fL Critically low 81.0-99.0 [facility] Comment on above: Performed By: #### H H #### [facility] [address] [place] [address] Dr. Michele Obrien PLT 241 103/ul Normal 150-450 [facility] Comment on above: Performed By: #### H H #### [facility] [address] [place] [address] Dr. Michele Obrien RBC 5.21 106/ul Normal 4.20-5.40 [facility] Comment on above: Performed By: #### H H #### [facility] [address] [place] [address] Dr. Michele Obrien WBC 6.9 103/ul Normal 4.0-11.0 [facility] Comment on above: Performed By: #### H H #### [facility] [address] [place] [address] Dr. Michele Obrien IRON AND TIBCon 10-16-2022 % SATURATION 4.5 % Normal [facility] Comment on above: Performed By: #### F ERR, FETIBC #### [facility] [address] [place] [address] Dr. Michele Obrien Iron [Mass/Vol] 18.0 ug/dL Critically low 50.0-170.0 [facility] Comment on above: Performed By: #### F ERR, FETIBC #### [facility] [address] [place] [address] Dr. Michele Obrien TIBC DIRECT 396.0 ug/dL Normal 250.0-450.0 [facility] Comment on above: Performed By: #### F ERR, FETIBC #### [facility] [address] [place] [address] Dr. Michele Obrien TSH W/ REFLEX TO FT4on 10-16 TSH 3.577 uIU/mL Normal 0.358-3.740 [facility] Comment on above: Performed By: #### H IV12 #### [facility] [address] [place] [address] Dr. Michele Obrien VITAMIN Con 09-03-2022 Vitamin C 0.2 mg/dL Critically low 0.4-2.0 The [facility] Comment on above: Result Comment: Li min C deficiency is generally defined as plasma or serum concentrations less than 0.2 mg/dL and levels between 0.2 and 0.4 mg/dL are considered low. Performed By: #### F ERR, FETIBC #### [facility] [address] [place] [address] Dr. Michele Obrien VITAMIN Aon 09-01-2022 Vitamin A 33.6 ug/dL Normal 18.9-57.3 [facility] Comment on above: Result Comment: Refe rence intervals for vitamin A determined from [facility] internal studies. Individuals with vitamin A less than 20 ug/dL are considered vitamin A deficient and those with serum concentrations less than 10 ug/dL are considered severely deficient. . This test was developed and its performance characteristics determined by [facility]. It has not been cleared or approved by the Food and Drug Administration. Performed By: #### V ITAMA #### [facility] [address] [place] [address] Dr. Michele Obrien VITAMIN Kodi 09-01-2022 Vitamin E (Alpha T) 11.9 mg/L Normal 5.9-19.4 [facility] Comment on above: Performed By: #### V ITAE #### [facility] [address] [place] [address] Dr. Michele Obrien Vitamin E (Gamma T) 1.5 mg/L Normal 0.7-4.9 [facility] Comment on above: Result Comment: Refe rence intervals for alpha and gamma-tocopherol determined from National Health and Nutrition Examination Survey, 9889-5236. Individuals with alpha-tocopherol levels less than 5.0 mg/L are considered vitamin E deficient. Performed By: #### V ITAE #### [facility] [address] [place] [address] Dr. Michele Obrien VITAMIN Garrett 08-26-2022 Vitamin K1 0.24 ng/mL Normal 0.10-2.20 [facility] Comment on above: Performed By: #### F ERR, FETIBC #### [facility] [address] [address] [address] Michele Obrien SELENIUM, PLASMAon Selenium, Serum/Plasma 110 ug/L Normal 93-198 [facility] Comment on above: Performed By: #### H IV12 #### [facility] [address] [address] [address] Michele Obrien VITAMIN B1 (THIAMINE)on 08-02 Vit. B1, Whole Blood 126.2 nmol/L Normal 66.5-200.0 [facility] Comment on above: Performed By: #### F ERR, FETIBC #### [facility] [address] [place] [address] Dr. Michele Obrien ZINC SERUM OR PLASMAon 08-23 Zinc, Plasma or Serum 69 ug/dL Normal 44-115 [facility] Comment on above: Result Comment: Dete ction Limit = 5 Performed By: #### H IV12 #### [facility] [address] [place] [address] Dr. Michele Obrien FERRITINon 08-20-2022 Ferritin [Mass/Vol] 5.0 ng/mL Critically low 6.2-137.0 [facility] Comment on above: Performed By: #### F ERR, FETIBC #### [facility] [address] [place] [address] Dr. Michele Obrien FREE T4on 08-20-2022 Free T4 [Mass/Vol] 1.01 ng/dL Normal 0.76-1.46 [facility] Comment on above: Performed By: #### H IV12 #### [facility] [address] [place] [address] Dr. Michele Obrien GLYCOHEMOGLOBIN A1Con 2022 ADA RECOMMENDATION SEE BELOW Normal [facility] Comment on above: Result Comment: ADA RECOMMENDED LIMIT 4.0 - 6.0 ADA THERAPEUTIC TARGET < 7.0 ACTION SUGGESTED > 7.0 Performed By: #### H IV12 #### [facility] [address] [address] [address] Michele Obrien Glucose [Mass/Vol] 80 mg/dL Normal [facility] Comment on above: Performed By: #### H IV12 #### [facility] [address] [address] [address] Michele Obrien HbA1c (Bld) [Mass fraction] 4.4 % Critically low 4.5-6.2 [facility] Comment on above: Performed By: #### H IV12 #### [facility] [address] [place] [address] Dr. Michele Obrien HEMOGRAM AND PLATELon 2022 Hematocrit (Bld) [Volume fraction] 29.3 % Critically low 36.0-48.0 [facility] Comment on above: Performed By: #### H IV12 #### [facility] [address] [place] [address] Dr. Michele Obrien Hemoglobin (Bld) [Mass/Vol] 9.3 g/dL Critically low 12.0-16.0 [facility] Comment on above: Performed By: #### H IV12 #### [facility] [address] [address] [address] Michele Obrien MCH (RBC) [Entitic mass] 20.1 pg Critically low 26.7-34.0 [facility] Comment on above: Performed By: #### H IV12 #### [facility] [address] [address] [address] Michele Obrien MCHC (RBC) [Mass/Vol] 31.7 g/dL Normal 29.9-35.2 [facility] Comment on above: Performed By: #### H IV12 #### [facility] [address] [address] [address] Michele Obrien MCV (RBC) [Entitic vol] 63.4 fL Critically low 81.0-99.0 [facility] Comment on above: Performed By: #### H IV12 #### [facility] [address] [address] [address] Michele Obrien PLT 213 103/ul Normal 150-450 [facility] Comment on above: Performed By: #### H IV12 #### [facility] [address] [address] [address] Michele Obrien RBC 4.62 106/ul Normal 4.20-5.40 [facility] Comment on above: Performed By: #### H IV12 #### [facility] [address] [address] [address] Michele Obrien WBC 5.8 103/ul Normal 4.0-11.0 [facility] Comment on above: Performed By: #### H IV12 #### [facility] [address] [address] [address] Michele Obrien IRON AND TIBCon 08-20-2022 % SATURATION 6.5 % Normal [facility] Comment on above: Performed By: #### F ERR, FETIBC #### [facility] [address] [place] [address] Dr. Michele Obrien Iron [Mass/Vol] 22.0 ug/dL Critically low 50.0-170.0 [facility] Comment on above: Performed By: #### F ERR, FETIBC #### [facility] [address] [address] [address] Michele Obrien TIBC DIRECT 340.0 ug/dL Normal 250.0-450.0 [facility] Comment on above: Performed By: #### F ERR, FETIBC #### [facility] [address] [place] [address] Dr. Michele Obrien LIPID PROFILEon 08-20-2022 CHOL-HDL RATIO NORM SEE BELOW Normal [facility] Comment on above: Result Comment: 3.3 - 4.4 LOW RISK 4.4 - 7.1 AVERAGE RISK 7.1 - 11.0 MODERATE RISK >11.0 HIGH RISK Performed By: #### F ERR, FETIBC #### [facility] [address] [place] [address] Dr. Michele Obrien Cholesterol [Mass/Vol] 146 mg/dL Normal <=200 [facility] Comment on above: Performed By: #### F ERR, FETIBC #### [facility] [address] [address] [address] Michele Obrien Cholesterol in HDL [Mass/Vol] 58 mg/dL Normal 40-60 [facility] Comment on above: Performed By: #### F ERR, FETIBC #### [facility] [address] [address] [address] Michele Obrien Cholesterol in LDL [Mass/Vol] 66.8 mg/dL Normal [facility] Comment on above: Performed By: #### F ERR, FETIBC #### [facility] [address] [place] [address] Dr. Michele Obrien Cholesterol.total/Ch olesterol in HDL [Mass ratio] 2.5 {ratio} Normal [facility] Comment on above: Performed By: #### F ERR, FETIBC #### [facility] [address] [address] [address] Michele Obrien HDL NORMAL > or = 60 mg/dl - LOW CARDIOVASCULAR RISK <40 mg/dl - HIGH CARDIOVASCULAR RISK Normal [facility] Comment on above: Performed By: #### F ERR, FETIBC #### [facility] [address] [place] [address] Dr. Michele Obrien LDL CALC NORMAL SEE BELOW Normal [facility] Comment on above: Result Comment: <100 mg/dl OPTIMAL 100 - 129 mg/dl NEAR OR ABOVE OPTIMAL 130 - 159 mg/dl BORDERLINE HIGH 160 - 189 mg/dl HIGH >190 mg/dl VERY HIGH Performed By: #### F ERR, FETIBC #### [facility] [address] [address] [address] Michele Obrien Triglyceride [Mass/Vol] 106 mg/dL Normal <=150 [facility] Comment on above: Performed By: #### F ERR, FETIBC #### [facility] [address] [place] [address] Dr. Michele Obrien VLDL CALC 21.2 mg/dL Normal [facility] Comment on above: Performed By: #### F ERR, FETIBC #### [facility] [address] [address] [address] Michele Obrien PROF 14(COMP METB)on 023 Albumin [Mass/Vol] 3.5 g/dL Normal 3.4-5.0 [facility] Comment on above: Performed By: #### F ERR, FETIBC #### [facility] [address] [address] [address] Michele Obrien Albumin/Globulin [Mass ratio] 1.2 {ratio} Normal [facility] Comment on above: Performed By: #### F ERR, FETIBC #### [facility] [address] [address] [address] Michele Obrien ALP [Catalytic activity/Vol] 76 U/L Normal 46-116 [facility] Comment on above: Performed By: #### F ERR, FETIBC #### [facility] [address] [address] [address] Michele Obrien ALT [Catalytic activity/Vol] 16 U/L Normal 14-59 [facility] Comment on above: Performed By: #### F ERR, FETIBC #### [facility] [address] [address] [address] Michele Obrien Anion gap [Moles/Vol] 10.0 mmol/L Normal [facility] Comment on above: Performed By: #### F ERR, FETIBC #### [facility] [address] [address] [address] Michele Obrien AST [Catalytic activity/Vol] 16 U/L Normal 15-37 [facility] Comment on above: Performed By: #### F ERR, FETIBC #### [facility] [address] [address] [address] Michele Obrien Bilirubin [Mass/Vol] 0.3 mg/dL Normal 0.2-1.0 [facility] Comment on above: Performed By: #### F ERR, FETIBC #### [facility] [address] [address] [address] Michele Obrien Calcium [Mass/Vol] 8.5 mg/dL Normal 8.5-10.1 [facility] Comment on above: Performed By: #### F ERR, FETIBC #### [facility] [address] [address] [address] Michele Obrien Chloride [Moles/Vol] 106 mmol/L Normal 98-107 [facility] Comment on above: Performed By: #### F ERR, FETIBC #### [facility] [address] [address] [address] Michele Obrien CO2 [Moles/Vol] 30.8 mmol/L Normal 21.0-32.0 [facility] Comment on above: Performed By: #### F ERR, FETIBC #### [facility] [address] [address] [address] Michele Obrien Creatinine [Mass/Vol] 0.68 mg/dL Normal 0.55-1.02 [facility] Comment on above: Performed By: #### F ERR, FETIBC #### [facility] [address] [place] [address] Dr. Michele Obrien EGFR-AF MALDIVIAN >60 Normal >=60 [facility] Comment on above: Performed By: #### F ERR, FETIBC #### [facility] [address] [address] [address] Michele Obrien EGFR-NON AF MALDIVIAN >60 Normal >=60 [facility] Comment on above: Performed By: #### F ERR, FETIBC #### [facility] [address] [address] [address] Michele Obrien Globulin (S) [Mass/Vol] 2.8 g/dL Normal [facility] Comment on above: Performed By: #### F ERR, FETIBC #### [facility] [address] [address] [address] Michele Obrien Glucose [Mass/Vol] 77 mg/dL Normal 74-106 [facility] Comment on above: Performed By: #### F ERR, FETIBC #### [facility] [address] [address] [address] Michele Obrien Potassium [Moles/Vol] 3.8 mmol/L Normal 3.5-5.1 [facility] Comment on above: Performed By: #### F ERR, FETIBC #### [facility] [address] [place] [address] Dr. Michele Obrien Protein [Mass/Vol] 6.3 g/dL Critically low 6.4-8.2 [facility] Comment on above: Performed By: #### F ERR, FETIBC #### [facility] [address] [place] [address] Dr. Michele Obrien Sodium [Moles/Vol] 143 mmol/L Normal 136-145 [facility] Comment on above: Performed By: #### F ERR, FETIBC #### [facility] [address] [place] [address] Dr. Michele Obrien Urea nitrogen [Mass/Vol] 10.0 mg/dL Normal 7.0-18.0 [facility] Comment on above: Performed By: #### F ERR, FETIBC #### [facility] [address] [place] [address] Dr. Michele Obrien Urea nitrogen/Creatinine [Mass ratio] 14.7 mg/mg Normal [facility] Comment on above: Performed By: #### F ERR, FETIBC #### [facility] [address] [place] [address] Dr. Michele Obrien TSHon 08-20-2022 TSH 4.302 uIU/mL Critically high 0.358-3.740 [facility] Comment on above: Performed By: #### F ERR, FETIBC #### [facility] [address] [place] [address] Dr. Michele Obrien VIT B12 AND FOLATEon 023 Cobalamin (Vitamin B12) [Mass/Vol] 433.0 pg/mL Normal 193.0-986.0 [facility] Comment on above: Performed By: #### B 12FOL, VITAD #### [facility] [address] [place] [address] Dr. Michele Obrien FOLATE 18.00 ng/mL Normal 8.60-58.90 [facility] Comment on above: Performed By: #### B 12FOL, VITAD #### [facility] [address] [place] [address] Dr. Michele Obrien VITAMIN D 25 OHon 08-20-2022 VIT D 25-OH 33.4 ng/mL Normal [facility] Comment on above: Performed By: #### B 12FOL, VITAD #### [facility] [address] [address] [address] Michele Obrien VIT D RANGES SEE BELOW Normal [facility] Comment on above: Result Comment: <20 ng/mL Vit D deficient 20 - <30 ng/mL Vit D insufficient 30 - 100 ng/mL Vit D sufficient >100 ng/mL Potential Toxicity Performed By: #### B 12FOL, VITAD #### [facility] [address] [address] [address] Michele Obrien Vital Signs Date Time Vital Sign Value Performing Clinician Facility 09-22-2023 09:42-0500 Body mass index (BMI) [Ratio] 44.85 kg/m2 Héctor Aguilar MD Work Phone: [facility] 09-22-2023 09:42-0500 Body weight 141.79 kg Héctor Aguilar MD Work Phone: [facility] 09-22-2023 09:42-0500 Diastolic blood pressure 74 mm[Hg] Héctor Aguilar MD Work Phone: [facility] 09-22-2023 09:42-0500 Heart rate 82 /min Héctor Aguilar MD Work Phone: [facility] 09-22-2023 09:42-0500 Systolic blood pressure 123 mm[Hg] Héctor Aguilar MD Work Phone: [facility] 09-15-2023 11:30-0500 Body mass index (BMI) [Ratio] 43.52 kg/m2 Kassandra ALBERTO Work Phone: [facility] 09-15-2023 11:30-0500 Body weight 141.52 kg Kassandra ALBERTO Work Phone: [facility] 09-15-2023 11:30-0500 Diastolic blood pressure 80 mm[Hg] Kassandra ALBERTO Work Phone: [facility] 09-15-2023 11:30-0500 Systolic blood pressure 130 mm[Hg] Kassandra ALBERTO Work Phone: [facility] 05-19-2023 15:30-0400 Body weight 128.05 kg Denys Selfack Other [facility] [employer] Other 05-19-2023 15:30-0400 Diastolic blood pressure 86 mm[Hg] Denys Selfack Other [facility] [employer] Other 05-19-2023 15:30-0400 Systolic blood pressure 127 mm[Hg] Denys Selfack Other [facility] [employer] Other 03-15-2023 10:48-0400 Diastolic blood pressure 80 mm[Hg] [employer] Wilber Shammo Work Phone: [facility] 03-15-2023 10:48-0400 Heart rate 63 /min [employer] Wilber Shammo Work Phone: [facility] 03-15-2023 10:48-0400 Respiratory rate 16 /min [employer] Wilber Shammo Work Phone: [facility] 03-15-2023 10:48-0400 SaO2% (BldA) [Mass fraction] 99 % [employer] Wilber Shammo Work Phone: [facility] 03-15-2023 10:48-0400 Systolic blood pressure 126 mm[Hg] [employer] Wilber Shammo Work Phone: [facility] 03-15-2023 08:43-0400 Body height 180.34 cm [employer] Wilber Shammo Work Phone: [facility] 03-15-2023 08:43-0400 Body temperature 98.2 [degF] [employer] Wilber Shammo Work Phone: [facility] 03-15-2023 08:43-0400 Body weight 129.27 kg [employer]- Wilber Mckeon Work Phone: [facility] 01-17-2023 10:00-0400 Body weight 127.01 kg Denys Landa Other [employer] Other 01-17-2023 10:00-0400 Diastolic blood pressure 85 mm[Hg] Denys Landa Other [facility] Other 01-17-2023 10:00-0400 Systolic blood pressure 125 mm[Hg] Denys Landa Other [facility] [employer] Other Encounters Encounter Date Encounter Type Care Provider Facility Start: 11-15-2023 End: 11-15-2023 ambulatory ADRIAN MIGUEL Not Available Start: 11-02-2023 End: 11-02-2023 ambulatory HÉCTOR JEFF [facility] Start: 11-02-2023 End: 11-02-2023 Office outpatient visit 15 minutes Fred Chavez MD Work Phone: [facility] Comment on above: Essential hypertensi on affecting in second trimester (Primary Dx) Start: 10-31-2023 End: 10-31-2023 ambulatory KASSANDRA LINARES Not Available Start: 10-18-2023 End: 10-19-2023 ambulatory ADRIAN R PARIS [facility] Start: 10-18-2023 Documentation procedure Fred Chavez MD Work Phone: [facility] Start: 10-13-2023 End: 10-13-2023 ambulatory ADRIAN PARIS Not Available Start: 09-22-2023 End: 09-23-2023 Orders Only Rossy Carrington RN [facility] Comment on above: Pre-existing essenti al hypertension during in second trimester (Primary Dx); Advanced maternal age in multigravida, second trimester; Hypothyroid in , antepartum Start: 09-22-2023 End: 09-22-2023 Office consultation new/estab patient 60 min Héctor Aguilar MD Work Phone: [facility] Comment on above: Essential hypertensi on affecting [...] Bee MD Work Phone: [facility] Start: 08-19-2023 Telephone encounter Janae Ware [facility] [place] Start: 08-18-2023 End: 08-18-2023 ambulatory ADRIAN MIGUEL Not Available Start: 08-03-2023 ambulatory WILBER MCKEON Facility:[facility] Start: 07-21-2023 End: 07-21-2023 ambulatory KASSANDRA LINARES Not Available Start: 06-13-2023 End: 06-13-2023 ambulatory ADRIAN MIGUEL Not Available Start: 05-19-2023 End: 05-19-2023 ambulatory Denys Landa Other [employer] Other Start: 05-19-2023 Office outpatient vi sit 15 minutes Denys Landa [facility] Start: 03-15-2023 End: 03-15-2023 ambulatory Denys Landa Facility:[facility] Start: 03-15-2023 End: 03-15-2023 Admission to same day surgery center [facility]- Wilber Hayleekelby Work Phone: [facility] Work Phone: Start: 03-15-2023 End: 03-15-2023 ambulatory [employer] Wilber Aguilar Sham[place] Work Phone: [facility] Work Phone: Start: 01-26-2023 End: 01-27-2023 ambulatory WILBER SHAMMO Facility:[facility] [place] Start: 01-26-2023 End: 01-27-2023 ambulatory Alyson Chiu Facility:[facility] Start: 01-26-2023 End: 01-26-2023 Lab Drop off Alyson Chiu [facility] Start: 01-26-2023 End: 01-26-2023 Patient encounter procedure Alyson Chiu [facility] Start: 01-20-2023 ambulatory WILBER SHAMMO Facility:[facility] Start: 01-17-2023 End: 01-17-2023 ambulatory Denys Landa Other [facility] Other Start: 01-17-2023 Office outpatient ne w 45 minutes Denys Landa [facility] Start: 12-28-2022 End: 12-28-2022 ambulatory LUKE BOWENS . Facility: Start: 10-16-2022 End: 10-17-2022 ambulatory WILBER SHAMMO Facility:[facility] Start: 08-25-2022 Encounter for genera l adult medical examination without abnormal findings WILBER SHAMMO [facility] Start: 08-20-2022 End: 08-21-2022 ambulatory WILBER SHAMMO Facility:[facility] Start: 08-20-2022 End: 08-21-2022 Encounter for general adult medical examination without abnormal findings WILBER SHAMMO Facility:[facility] Procedures Date Procedure Procedure Detail Performing Clinician Start: 09-15-2023 Urnls dip stick/tablet rgnt non-auto w/o micrscp Kassandra ALBERTO Work Phone: Start: 06-08-2023 FREE CELL DNA (NON-[facility]) Not In System Ref Prov Start: 03-15-2023 Esophagogastroduodenoscopy [employer] Wilber Mckeon Work Phone: Start: 08-01-2016 Appendectomy Alyson Chiu Start: 08-01-2016 Gastric sleeve Alyson Chiu Start: 08-01-2005 Cholecystectomy Alyson Chiu Arthroplasty of knee Alyson chamberlain Comment on above: Meniscus repair section Alyson Chiu Comment on above: x2 Plan of Treatment Date Care Activity Detail Author Start: 09-22-2024 Adult BMI Screening Adult BMI Screen ing [facility] Start: 09-22-2024 Tobacco Screening Tobacco Screening [facility] Start: 09-22-2024 End: 09-22-2024 US MFM with or without consult US MFM with or without consult Imaging Routine Pre-existing essential hypertension during in second trimester Advanced maternal age in multigravida, second trimester Hypothyroid in , antepartum Expected: 09/22/2024 (Approximate), Expires: 09/22/2024 [employer] Work Phone: Comment on above: Expected: 09/22/2024 (Approximate), Expires: 09/22/2024 Start: 04-01-2024 Influenza vaccination Influenza Vacc ine [facility] Start: 11-12-2023 Adult BMI Screening Adult BMI Screen ing [facility] Start: 11-02-2023 End: 11-02-2023 Telemedicine consultation with patient 11/02/2023 11:30 AM EDT Telemedicine Maternal- Medicine at [facility] [address] [place] [phone] Fred Chavez MD [address] [place], [place] [id number] Héctor Aguilar MD [address] [address] Maternal- Medicine at [facility] Start: 10-18-2023 End: 10-18-2023 Telemedicine consultation with patient 10/18/2023 1:30 PM EDT Telemedicine Maternal- Medicine at [facility] [address] [place] [address] Fred Chavez MD [address] [place] [address] Maternal- Medicine at [facility] Start: 10-18-2023 End: 10-18-2023 Patient encounter procedure 10/18/2023 12:30 PM EDT Appointment [facility]ound [address] [place] [address] [facility] Start: 10-13-2023 End: 10-13-2023 Patient encounter procedure 10/13/2023 10:50 AM EDT Routine [facility] [address] [place] [phone] Adrian Miguel, [address] [place] [address] [facility] Start: 09-15-2023 End: 09-15-2024 CBC panel - Blood by Automated count CBC Lab Routine Diabetes mellitus screening Expected: 09/15/2023 (Approximate), Expires: 09/15/2024 [facility] Work Phone: Comment on above: Expected: 09/15/2023 (Approximate), Expires: 09/15/2024 Start: 09-15-2023 End: 09-15-2024 Measurement of glucose 1 hour after glucose challenge for glucose tolerance test Glucose tolerance, 1 hour Lab Routine Diabetes mellitus screening Expected: 09/15/2023 (Approximate), Expires: 09/15/2024 [facility] Comment on above: Expected: 09/15/2023 (Approximate), Expires: 09/15/2024 Start: 09-15-2023 End: 09-15-2024 Thyrotropin [Units/volume] in Serum or Plasma TSH Lab Routine Hypothyroidism, unspecified type (CMS/HCC) Expected: 09/15/2023 (Approximate), Expires: 09/15/2024 [facility] Comment on above: Expected: 09/15/2023 (Approximate), Expires: 09/15/2024 Start: 09-14-2023 End: 09-14-2023 Patient encounter procedure [facility] Start: 04-01-2023 Influenza vaccination Influenza Vacc ine [facility] Start: 03-15-2023 [facility] Start: 11-02-2007 Screening for malign ant neoplasm of cervix Pap Smear [facility] Start: 2005 DTaP,Tdap and Td Vaccines (1 - Tdap) DTaP,Tdap and Td Vaccines (1 - Tdap) [facility] Start: 2004 Adult BMI Follow Up Plan Adult BMI Follow Up Plan [facility] Start: 1998 Depression Screening Depression Scre ening [facility] Start: 1998 Tobacco Screening Tobacco Screening [facility] Hemoglobin A1c/Hemoglobin.total in Blood Hemoglobin A1c Lab Routine Diabetes mellitus screening Ordered: 09/15/2023 [facility] Comment on above: Ordered: 09/15/2023 Patient Education Hiatal hernia Diverticulosis [facility] Work Phone: Immunizations Immunization Date Immunization Notes Care Provider Alice calhoun 06-01-2022 influenza virus vaccine, unspecified formulation Alyson Chiu [facility] Payers Date Payer Category Payer Self-pay 2022 [employer] others) [id number] 2022 [employer] others) [id number] 2022 [employer] ( and others) [id number] 1985 Unknown [id number] [id number] 1986 Unknown [id number] 2.16.840.1.374676.3.579.2.593 1986 Unknown [id number] 2.16.840.1.369076.3.579.2.593 1986 Unknown [id number] 2.16.840.1.439331.3.579.2.727 1986 Unknown [id number] 2.16.840.1.415897.3.579.2.727 1986 Unknown [id number] 2.16.840.1.311184.3.579.2.727 1986 Unknown [id number] 2.16.840.1.484194.3.579.2.1286 1986 Unknown [id number] 2.16.840.1.234114.3.579.2.1286 1986 Unknown [id number] 2.16.840.1.304124.3.579.2.1286 1986 Unknown [id number] 2.16.840.1.833468.3.579.2.1286 1986 Unknown [id number] 2.16.840.1.410968.3.579.2.1259 1986 Unknown [id number] 2.16.840.1.654243.3.579.2.1259 1986 Unknown [id number] 2.16.840.1.338242.3.579.2.1259 1986 Unknown [id number] 2.16.840.1.957260.3.579.2.9 1986 Unknown [id number] 2.16.840.1.448436.3.579.2.1259 1986 Unknown [id number] 2.16.840.1.655362.3.579.2.1259 1986 Unknown [id number] 2.16.840.1.670094.3.579.2.1259 1959 [employer] ( and others) [id number] Unknown [id number] 2.16.840.1.164744.3.579.2.531 Social History Date Type Detail Facility Start: 08-24-2023 End: 09-22-2023 Sex Assigned At [facility] Start: 01-26-2023 Tobacco smoking status Ex-smoker (finding) [facility] Start: 03-15-2023 Tobacco smoking status NHIS Smoker (finding) [facility] Start: 1985 Sex Assigned At Female [facility] Tobacco smoking stat us NHIS Tobacco smoking consumption unknown [facility] Start: 1985 Sex Assigned At Not on file [facility] Start: 01-03-2023 End: 08-24-2023 Tobacco smoking status [facility] Never smoked tobacco [facility] Start: 01-03-2023 End: 08-24-2023 Tobacco use and exposure Smokeless tobacco non-user [facility] Start: 08-24-2023 End: 09-22-2023 Alcohol intake Ex-drinker (finding) [facility] Start: 08-24-2023 End: 09-22-2023 History of Social function [facility] Start: 04-11-2023 [facility] How often to you hav e [...] got money to buy more. Never True [facility] Start: 11-02-2023 Sexual orientation Heterosexual (finding) [facility] Goals Date Patient Goal Desired Activity /State Personal health goal Functional Status Date Assessment Result Facility 01-26-2023 Functional Status No [facility] Clinical Notes 01-17-2023 to 11-02-2023 Héctor [...] Depression Hypertension Hypothyroidism Kidney stones Migraines Seizure ([facility]-H[facility]) REVIEW OF SYSTEMS: Head and Neck: Negative [...] Visit via Real-time Synchronous Audiovisual Provider Location: [facility]- [facility]IC[facility] AT [address] [phone] Patient Location: Patient's home Patient Location Senior Inspector: None Video Visit Consent Statement: I discussed [...] that there are some limitations compared to [id number] evaluations. We elected to proceed. documented in this encounter [facility] 10-18-2023 History of Presen t illness Narrative Maternal- Medicine Patient had follow-up telehealth visit scheduled. At a satellite office she had ultrasound which will be read by 1 of my colleagues. The patient did not keep her appointment (we believe that she was uncertain she had a visit). Our office will reach out in arrange an un linked telehealth rescheduled visit. Frde Chavez MD Professor, [facility] Maternal Medicine (we called the patient ourselves and were not able to successfully connect with her) documented in this encounter [facility] 09-22-2023 History of Presen t illness Narrative Headache/epigastric pain/blurry vision/swelling? No Cramping/contractions? No Abnormal vaginal discharge? No Spotting/vaginal bleeding? No Loss of fluid like your water may have broken? No Cats in the home? No Do you change the litter box? N/A Flu vaccine? No Genetic testing done this here or other office? Yes Have you been seen here at [facility] in a previous ? No Recent ER visits or hospitalizations? No Bring blood sugar log or meter with you today? (Please bring them with you for every visit at [facility]) N/A Traveled outside the country in the [...] Depression Hypertension Hypothyroidism Kidney stones Migraines Seizure ([facility]-H[facility]) PAST OBSTETRICAL HISTORY: OB History 4 Para [...] and the other consultants, we search on [employer] and all the available care everywhere epic I did review all the imaging studies of the patient available on EMR, ordered by the primary care physician and the other research consultant HABITS: Patient activity no restrictions, diet [...] for completion of targeted anatomy at our [facility] site. 5. 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 Patient does have ultrasound office visit scheduled with us Thank you for allowing me to participate in Lisa Allison . If there any questions please do not hesitate to contact us. Sincerely, HÉCTOR AGUILAR MD documented in this encounter [employer] 09-15-2023 History of Presen t illness Narrative [...] anxiety GERD (gastroesophageal reflux disease) HTN (hypertension) ([facility]) Hypothyroidism (acquired) ([facility] Iron deficiency anemia Kidney stones Migraines ([facility] Seizure ([facility]) 2019 Family History Problem Relation Name Age [...] hour glucose order to have done at [facility]. Follow Up: Patient is to [...] of: REMY Valdes documented in this encounter [facility] 08-19-2023 Miscellaneous Notes Formattin g of this note might be different from the original. LEFT A MESSAGE TO SCHEDULE USN AND CONSULT. 08/19/2023 1043 documented in this encounter [employer] 08-19-2023 Telephone encount er Note LEFT A MESSAGE TO SCHEDULE USN AND CONSULT. 08/19/2023 [facility] Evaluation note Encounter Date Diagnosis Assessment [...] start metamucile and probiotics RTO 3 months [facility] Other [facility] Discharge instructions Patient Education 01/26/2023 10:54:04 [...] include: ?8 oz (237 mL) of milk, dnzwgof-gmunljespuht-shpqz milk, and calcium- fortifiedfruit juice. Calcium-fortified means [...] ?Spinach (cooked), rhubarb, beets, sweet potatoes, and Albanian chard. ?Peanuts. ?Potato chips, beninese fries, and baked potatoes with skin on. ?Nuts and nut products. ?Chocolate. If you regularly take a diuretic medicine, make sure to eat at least 1 or 2 servings of fruits or vegetables that are high in potassium each day. These include: ?Avocado. ?Banana. ?Taliaferro, prune, carrot, or tomato juice. ?Baked potato. [...] magnesium, fish oil, or vitamin B6. Take qgjv-ppi-bkgejue and prescription medicines only as told by [...] Casseroles. Pizza. Lasagna. Frozen meals. Potato chips. Khmer fries. The items listed above may not [...] provider. Document Revised: 03/29/2022 Document Reviewed: 03/29/2022 [employer] Patient Education 2022 [employer]. Follow Up Care 12/28/2022 12:57:40 With:Aram RUSSELL, Alyson Burdick, URL, URO Address: When:Within 6 Month(s) Comments:irasema FALK & YAMILETH [facility] 06-19-2023 Evaluation note* Encounter Date Diagnosis Assessment Notes Treatment Notes Treatment Clinical Notes Dec, Iron deficiency anemia (ICD-10 - D50.9) Will proceed with EGD Will request recent lab work done at [facility]. Dec, GERD (gastroesophageal reflux disease) (ICD-10 - K21.9) Patient to continue on Omeprazole 40mg Dec, Diarrhea (ICD-10 - R19.7) Will proceed with Colonoscopy. [facility] Other Evaluation + Plan note Future Appointments Appointment Date:08/03/2023 10:00:00 AM Scheduled Provider:Alyson Chiu MD Location:[facility] Appointment Type:URO Office Visit [facility] evaluation + Plan note Future Appointments Appointment Date:08/03/2023 10:00:00 AM Scheduled Provider:Alyson Chiu MD Location:[facility] Appointment Type:URO Office Visit Diagnostic Tests Pending * Calculi Analysis Urinary [facility] Diagnosis Onset Date Resolution Status Iron deficiency anemia [facility] Work Phone: Evaluation note* Diagnosis Second trimester state, incidental Diabetes mellitus screening Screening for diabetes mellitus 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 -Office number [phone] Work Phone: InstructionsNot on filedocumented in this encounter [facility] filedocumented in this encounter [facility]Not on filedocumented in this encounter [facility]Not on filedocumented in this encounter [facility]Not on filedocumented in this encounter [facility]ructionsNot on filedocumented in this encounter [facility] No data available for this section [facility] Summary Purpose Family History No Family [...] consult Héctor Aguilar MD [address] [facility] [address] [place] [address] [facility] Maternal Med [address] [place] [address] Referral ID Status Reason Start Date Expiration Date V isits Requested Visits Authorized [id number] Pending Review 09/22/2023 09/21/2024 1 1 Additional Source Comments INFORMATION SOURCE (unrecogn ized section and content) DATE CREATED AUTHOR 01/07/2023 [facility] DATE CREATED AUTHOR AUTHOR'S ORGANIZ ATION 03/17/2023 [facility] DATE CREATED AUTHOR AUTHOR'S ORGANIZ ATION 08/05/2023 [facility] DATE CREATED AUTHOR AUTHOR'S ORGANIZ ATION 10/19/2023 [facility] DATE CREATED AUTHOR AUTHOR'S ORGANIZ ATION 11/03/2023 [facility] DATE CREATED AUTHOR AUTHOR'S ORGANIZ ATION 11/16/2023 [facility] dical Specialists EPIC REASON FOR VISIT (unrecogniz ed section and content) Reason Comments Routine Visit Reason Comments Advanced Maternal Age Chronic Hypertension Hypothyroidism Patient Care team informatio n (unrecognized section and content) Team Status: Active Member Role Status Dates Wilber Mckeon , [facility] Primary Care Provider Active Team Status: Inactive Member Role Status Dates Denys Landa MD Attending Provider Active Wilber Mckeon , [facility] Primary Care Provider Active [place] Relationship Specialty Start Date End Date No Pcp, [place] [address] PCP - General Family Medicine 10/18/23 [place] Relationship Specialty Start Date End Date No Pcp, [place] [address] PCP - General Family Medicine 10/18/23 FOR [...] BE BASED ON THE PRIMARY CLINICAL RECORDS. [employer] provides no warranty or guarantee of the accuracy or completeness of information in this document.
--- NOTE | 2023-11-25 09:32 | US_ITS ---
[address] [address] Patient Name: TIFFANI GROSSMAN MRN: [id number] date: 1985 Sex: F Assigned Patient Location: [facility] Current Patient Location: Accession/Order Number: [id number] Exam Date: 11/25/2023 09:36 Report Date: 11/25/2023 12:06 At the request of: YOAN TOLEDO Procedure: US OB BPP w non-stress EXAMINATION: US OB BPP w non-stress HISTORY: Hypothyroidism E03.9 COMPARISON: 11/17/2023 TECHNIQUE: Ultrasound biophysical profile was performed in the radiology department. FINDINGS: BREATHING MOVEMENTS: 2 GROSS BODY MOVEMENTS: 2 TONE: 2 QUALITATIVE AMNIOTIC FLUID VOLUME: 2 PRESENTATION: Cephalic HEART RATE: 134 H.B./min AMNIOTIC FLUID VOLUME: 11.0 cm GESTATIONAL AGE: 34 weeks 4 days CONCLUSION: Total biophysical profile score: 8/8 Electronically authenticated by: PEDRO FIGUEREDO Date: 11/25/2023 12:06
[2023-11-25 10:11] VITALS: BP 123/61; PULSE 88
== END 2023-11-25 10:33 | disposition home or self-care (01) ==
LOC: US 06:56 → FBC 09:30
PROVIDERS: PCP Nurse Practitioner Primary Care; Visit Provider Obstetrics & Gynecology
DX: E03.9 Hypothyroidism, unspecified (principal); R79.89 Other specified abnormal findings of blood chemistry; O99.283 Endocrine, nutritional and metabolic diseases complicating pregnancy, third trimester; Z3A.34 34 weeks gestation of pregnancy
CPT/HCPCS: 76818

== ENCOUNTER 2023-11-29 08:55 | Outpatient (OUT) | payer OTHER, SELFPAY ==
[2023-11-29 20:10] VITALS: BP 135/70; PULSE 80; TEMP 36
== END 2023-11-29 21:35 | disposition home or self-care (01) ==
LOC: FBCO 08:56 → FBC 20:03
PROVIDERS: PCP Nurse Practitioner Primary Care; Visit Provider Obstetrics & Gynecology
DX: O99.283 Endocrine, nutritional and metabolic diseases complicating pregnancy, third trimester (principal)
CPT/HCPCS: 59025

== ENCOUNTER 2023-12-02 06:59 | Outpatient (OUT) | payer OTHER, SELFPAY ==
--- OUTSIDE RECORDS SUMMARY | 2023-12-02 07:01 | XMS_ITS | CCD ---
Author Organization [facility] Care Team Providers Care Senior Software Test Engineer Name Role Phone KWAN ., LUKE Admitting [...] SHAMMO, WILBER Consulting Unavailable Denys Landa Unavailable [phone] SHAMMO, WILBER TOMASA Primary Care Physician MD [...] sources) Penicillin Drug Allergy 3 Unknown [facility]ository (15 sources) Penicillins; Translations: [penicillins] Allergy to substance 3 Anaphylaxis (disorder), Anaphylaxis, Unknown [facility] (7 sources) topiramate; Translations: [TOPIRAMATE] Drug Allergy 4 [facility] (2 sources) Penicillin G Drug Allergy 3 Unknown [facility] (2 sources) Topiramate Allergy to substance 3 [facility] Medications Current Medications Medication Drug [...] 07/04/2024 Active take 1 tablet by pablo every twenty-four hours Escitalopram Oxalate 5 MG [...] Active Start: 01-26-2023 take 1 capsule by mo [facility] once daily levothyroxine 137 mcg (0.137 mg) [...] 09/09/2022 Active take 1 capsule by mo [facility] once daily Metoprolol Succinate 100 MG 1 [...] UA Negative Negative - 4(70) +++ mg/dL [facility] Healthcare Blood, UA Negative Negative - 50 Maikol/mcL [facility] Clarity, UA Clear [facility] Color, UA Yellow [facility] Glucose, UA Negative Negative - 2000(110) ++++ mg/dL [facility] Interpretation and review of laboratory results Abnormal [facility] Ketones, UA Negative Negative - 160(16) ++++ mg/dL [facility] Leukocytes, UA Negative Negative - 500+++ Endy/mcL [facility] Nitrite, UA Negative Negative - Positive [facility] pH, UA 6.0 5 - 9 [facility] Protein, UA Trace Negative - 2000(20) ++++ mg/dL [facility] Spec Grav, UA 1.025 1 - 1.03 [facility] Urobilinogen, UA 0.2 0.2 - 12 mg/dL [facility] Reminderson 08-05-2023 Reminders - From: Ewa [...] Alyson Chiu MD To: EU - Recallteodoro Aram; Sent: 08/05/2023 09:02:01 EST Show up: 08/05/2023 09:01:00 EST Subject: RE: Reminder Message No Normal [facility] Free Cell DNAon 2022 [facility] HCG ( test) IA.rapi d Ql (U)Ordered By: Denys Landa on 03-15-2023 HCG ( test) Ql (U) Negative [facility] HCG,Urineon 03-15-2023 Beta HCG ( test) Ql (U) Negative Normal [facility] Comment on above: Result Comment: PERF ORMED BY: [place] [address] PATHOLOGIST DIRECTOR OF PHYSIOTHERAPY SERVICES SALVADOR LEHMAN M.D. Performed By: #### U HCG #### [address] Arturo 03-15-2023 L Specimen: [id number] Received: 03/15/23 Status: KENISHA Tavon Num: [id number] Spec Type: Surgical Subm Dr: Denys Landa MD Tissues: A Duodenum - Biopsy (DUODENAL BX) B STOMACH FOR HP (ANTRAL BX HP) C Esophagus Biopsy (ESOPHAGUS BX) Procedures: HE/6, Gross/Micro L4/3, H PYLORI Age/ Patient Sex Location Account Attending Physician Lisa Allison 37/F [id number] Denys Landa MD SPEC NUM: [id number] RECD: 03/15/23 STATUS: KENISHA MONTES [place] NUM: [id number] RODERICK: 03/15/23- [facility] DR: Denys Landa MD ENTERED: 03/15/23-[address] [facility] [address]: CESAR TYPE: Surgical DEPT: [...] eosinophilic exocytosis or eosinophilic esophagitis identified Specimen: [id number] Received: 03/15/23 Status: KENISHA [place] Num: [id number] Spec Type: Surgical Subm Dr: Denys Landa MD Tissues: A Duodenum - Biopsy (DUODENAL BX) B STOMACH FOR HP (ANTRAL BX HP) C Esophagus Biopsy (ESOPHAGUS BX) Procedures: HE/6, Gross/Micro L4/3, H PYLORI Patient: Lisa Allison [id number] (Continued) Specimen: [id number] Received: 03/15/23 (Continued) Signed (signature on file) Bharti Obrien MD 03/16/23 1658 Specimen: [id number] Received: 03/15/23 Status: KENISHA [place] Num: [id number] Spec Type: Surgical Subm Dr: Denys Landa MD Tissues: A Duodenum - Biopsy (DUODENAL BX) B STOMACH FOR HP (ANTRAL BX HP) C Esophagus Biopsy (ESOPHAGUS BX) Procedures: /6, Gross/Micro L4/3, H PYLORI Patient: EstefanyLisa hwang Roberta [id number] (Continued) Specimen: [id number] Received: 03/15/23 (Continued) Clinical Information LARISSA, rule [...] microscopic examination confirms the diagnosis. CPT Codes 12828d0, 31869 -- (more content not included)... Normal [facility] Calculus Analysison 02-06-20 23 Calcium oxalate dihydrate Infrared spectroscopy (Stone) [Mass fraction] 30 % Invalid Interpretation Code [facility] Comment on above: Performed By: #### 1 [id number] #### [facility] [address] [place] [address] Calcium oxalate monohydrate (Stone) [Mass fraction] 70 % Invalid Interpretation Code [facility] Comment on above: Performed By: #### 1 [id number] #### [facility] [address] [place] [address] Color (Stone) Brown Invalid Interpretation Code [facility] Comment on above: Performed By: #### 1 [id number] #### [facility] [address] [place] [address] Composition Comment Invalid Interpretation Code [facility] Comment on above: Result Comment: Perc entage (Represents the % composition) Performed By: #### 1 [id number] #### [facility] [address] [place] [address] Disclaimer: Comment Invalid Interpretation Code [facility] Comment on above: Result Comment: This test was developed and its performance characteristics determined by [facility]. It has not been cleared or approved by the Food and Drug Administration. Performed at: [facility] [address] [place], [place] [id number] PhD Roya Prajapati Performed By: #### 1 [id number] #### [facility] [address] [place] [address] Laboratory comment Asa (Report) Comment Invalid Interpretation Code [facility] Comment on above: Result Comment: Brad tafoya questions regarding Calculi Analysis [facility] at: [phone]. Performed By: #### 1 [id number] #### [facility] [address] [place] [address] Please Note: Comment Invalid Interpretation Code [facility] Comment on above: Result Comment: Calc dory report will follow via computer, mail or trumpet player delivery. Performed By: #### 1 [id number] #### [facility] [address] [place] [address] Size (Stone) [Entitic vol] 3x3 Invalid Interpretation Code [facility] Comment on above: Result Comment: Mult iple pieces received. Dimensions of the largest piece reported. Performed By: #### 1 [id number] #### [facility] [address] [place] [address] Specimen source subject Nom Comment Invalid Interpretation Code [facility] Comment on above: Result Comment: Not provided Performed By: #### 1 [id number] #### [facility] [address] [place] [address] Stone Photo Comment Invalid Interpretation Code [facility] Comment on above: Result Comment: Phot ograph will follow under a separate cover Performed By: #### 1 [id number] #### [facility] [address] [place] [address] Weight (Stone) 8 mg Invalid Interpretation Code [facility] Comment on above: Performed By: #### 1 [id number] #### [facility] [address] [place] [address] [facility] 01-26-2023 Forms [id number] #1.00CD:127 Normal [facility] Patient Educationon 01-27-20 23 Patient [...] Spinach (cooked), rhubarb, beets, sweet potatoes, and Bhutanese chard. ? Peanuts. ? Potato chips, palauan fries, and baked potatoes with skin on. ? Nuts and nut products. ? Chocolate. ? If you regularly take a diuretic medicine, make sure to eat at least 1 or 2 servings of fruits or vegetables that are high in potassium each day. These include: ? Avocado. ? Banana. ? [place], prune, carrot, or tomato juice. ? Baked [...] fish oil, or vitamin B6. ? Take mxme-wjs-qdcshvs and prescription medicines only as told by your health care provider. These include supplements. What foods should I limit? Limit your in (more content not included)... Normal [facility] RAD - MISCon 01-26-2023 RAD - MISC [id number] #1.00CD:127 [facility] Screenson 01-26-2023 Screens [id number] #1.00CD:127 [facility] Urology Office/Clinic Noteon 01-26-2023 Urology Office/Clinic Note Chief Complaint kidney stones HPI Staff Pt is a new pt, never before seen in our office. Here today due to kidney stones. [place] [facility] 12/27/22 due to Rt flank pain [...] for this patient from Dr. Herron @ [facility]. I have reviewed and verified the staff [...] Pt had gastric bypass in 2016 in [place]. Has had diarrhea since she had her [...] decisions made by me. Authenticated by Dr. Cihu on 01/26/2023 21:45:19. Problem List/Past Medical History [...] Nitrite Uri (more content not included)... Normal [facility] Comment on above: Result Comment: Elec tronically Signed By: Alyson Chiu MD\.br\Date and Time Signed: 01/26/23 21:46 EDT\.br\Electronically Co-Signed By: Ewa Valentin\.br\Date and Time Co-Signed: 01/26/23 10:54 EDT ED Note-Physicianon 01-24-20 ED Note-Physician [id number]#1.00CD:127 Normal [facility] Lab Reportson 01-23-2023 Lab Reports [id number]#1.00CD:127 Normal [facility] RAD - CT Reporton 01-23-2023 RAD - CT Report [id number]# 1.00CD:127 Normal [facility] CBC AUTO DIFFon 12-28-2022 BASO # 0.0 103/ul Normal 0.0-0.1 [facility] Comment on above: Performed By: #### F ERR, FETIBC #### [facility] [address] [place] [address] Dr. Michele Obrien Basophils/100 WBC (Bld) 0.5 % Normal 0.2-2.0 [facility] Comment on above: Performed By: #### F ERR, FETIBC #### [facility] [address] [address] [address] Michele Obrien EO # 0.2 103/ul Normal 0.0-0.7 [facility] Comment on above: Performed By: #### F ERR, FETIBC #### [facility] [address] [address] [address] Michele Obrien Eosinophils/100 WBC (Bld) 2.6 % Normal 0.9-7.0 [facility] Comment on above: Performed By: #### F ERR, FETIBC #### [facility] [address] [place] [address] Dr. Michele Obrien Erythrocyte distribution width (RBC) [Ratio] 19.1 % Critically high 11.0-15.0 [facility] Comment on above: Performed By: #### F ERR, FETIBC #### [facility] [address] [place] [address] Dr. Michele Obrien Hematocrit (Bld) [Volume fraction] 37.6 % Normal 36.0-48.0 [facility] Comment on above: Performed By: #### F ERR, FETIBC #### [facility] [address] [place] [address] Dr. Michele Obrien Hemoglobin (Bld) [Mass/Vol] 11.9 g/dL Critically low 12.0-16.0 [facility] Comment on above: Performed By: #### F ERR, FETIBC #### [facility] [address] [place] [address] Dr. Michele Obrien IG # 0.03 10e3/ul Normal 0.00-0.03 [facility] Comment on above: Performed By: #### F ERR, FETIBC #### [facility] [address] [place] [address] Dr. Michele Obrien IG % 0.3 % Normal 0.0-0.5 [facility] Comment on above: Performed By: #### F ERR, FETIBC #### [facility] [address] [place] [address] Dr. Michele Obrien LYMPH # 1.6 103/ul Normal 1.2-3.8 [facility] Comment on above: Performed By: #### F ERR, FETIBC #### [facility] [address] [place] [address] Dr. Michele Obrien Lymphocytes/100 WBC (Bld) 18.4 % Critically low 20.5-60.0 [facility] Comment on above: Performed By: #### F ERR, FETIBC #### [facility] [address] [place] [address] Dr. Michele Obrien MANUAL DIFF REQ NO Normal [facility] Comment on above: Performed By: #### F ERR, FETIBC #### [facility] [address] [place] [address] Dr. Michele Obrien MCH (RBC) [Entitic mass] 23.7 pg Critically low 26.7-34.0 [facility] Comment on above: Performed By: #### F ERR, FETIBC #### [facility] [address] [place] [address] Dr. Michele Obrien MCHC (RBC) [Mass/Vol] 31.6 g/dL Normal 29.9-35.2 [facility] Comment on above: Performed By: #### F ERR, FETIBC #### [facility] [address] [place] [address] Dr. Michele Obrien MCV (RBC) [Entitic vol] 74.9 fL Critically low 81.0-99.0 [facility] Comment on above: Performed By: #### F ERR, FETIBC #### [facility] [address] [place] [address] Dr. Michele Obrien MONO # 0.5 103/ul Normal 0.3-0.8 [facility] Comment on above: Performed By: #### F ERR, FETIBC #### [facility] [address] [place] [address] Dr. Michele Obrien Monocytes/100 WBC (Bld) 5.9 % Normal 1.7-12.0 [facility] Comment on above: Performed By: #### F ERR, FETIBC #### [facility] [address] [place] [address] Dr. Michele Obrien NEUT # 6.4 103/ul Normal 1.4-6.5 [facility] Comment on above: Performed By: #### F ERR, FETIBC #### [facility] [address] [place] [address] Dr. Michele Obrien Neutrophils/100 WBC (Bld) 72.3 % Normal 43.0-75.0 [facility] Comment on above: Performed By: #### F ERR, FETIBC #### [facility] [address] [address] [address] Michele Obrien Platelet mean volume (Bld) [Entitic vol] 10.2 fL Normal 9.5-13.5 [facility] Comment on above: Performed By: #### F ERR, FETIBC #### [facility] [address] [place], [place] [address] Dr. Michele Obrien PLT 243 103/ul Normal 150-450 [facility] Comment on above: Performed By: #### F ERR, FETIBC #### [facility] [address] [place], [place] [address] Dr. Michele Obrien RBC 5.02 106/ul Normal 4.20-5.40 [facility] Comment on above: Performed By: #### F ERR, FETIBC #### [facility] [address] [address] [address] Michele Obrien WBC 8.9 103/ul Normal 4.0-11.0 [facility] Comment on above: Performed By: #### F ERR, FETIBC #### [facility] [address] [address] [address] ABD/PELVIS WO CONon [...] Small hiatal hernia. Electronically authenticated by: ALEXA Harper: 2022-12-28 02:25 Normal [facility] ER URINE PROFILEon 3 Bilirubin Ql (U) Negative Normal NEGATIVE [facility] Comment on above: Performed By: #### H IV12 #### [facility] [address] [address] [address] Michele Obrien Clarity (U) CLEAR Normal CLEAR [facility] Comment on above: Performed By: #### H IV12 #### [facility] [address] [address] [address] Michele Obrien Color (U) LT. YELLOW Normal YELLOW [facility] Comment on above: Performed By: #### H IV12 #### [facility] [address] [place] [address] Dr. Michele JACKSON A micrscopic examination will be performed if indicated. Normal [facility] Comment on above: Performed By: #### H IV12 #### [facility] [address] [address] [address] Michele Obrien Glucose Ql (U) Negative Normal NEGATIVE [facility] Comment on above: Performed By: #### H IV12 #### [facility] [address] [address] [address] Michele Obrien Hemoglobin Ql (U) MODERATE Abnormal NEGATIVE [facility] Comment on above: Performed By: #### H IV12 #### [facility] [address] [address] [address] Michele Obrien Ketones Ql (U) Negative Normal NEGATIVE [facility] Comment on above: Performed By: #### H IV12 #### [facility] [address] [address] [address] Michele Obrien LEUKOCYTES Negative Normal NEGATIVE [facility] Comment on above: Performed By: #### H IV12 #### [facility] [address] [place] [address] Dr. Michele Obrien Nitrite Ql (U) Negative Normal NEGATIVE [facility] Comment on above: Performed By: #### H IV12 #### [facility] [address] [place] [address] Dr. Michele Obrien pH (U) 5.5 [pH] Normal 5-9 [facility] Comment on above: Performed By: #### H IV12 #### [facility] [address] [place] [address] Dr. Michele Obrien SPEC GRAVITY 1.025 Normal 1.005-<=1.025 [facility] Comment on above: Performed By: #### H IV12 #### [facility] [address] [place] [address] Dr. Michele Obrien UA PROTEIN Negative Normal NEGATIVE/ TRACE [facility] Comment on above: Performed By: #### H IV12 #### [facility] [address] [place] [address] Dr. Michele Obrien UR MICRO IND INDICATED Normal [facility] Comment on above: Performed By: #### H IV12 #### [facility] [address] [place] [address] Dr. Michele Obrien Urobilinogen Qn (U) 0.2 {Ijeoma'U}/dL Normal 0.2 - 1. 0 [facility] Comment on above: Performed By: #### H IV12 #### [facility] [address] [place] [address] Dr. Michele Obrien PREG HCG QUALon 12-28-2022 , QUAL Negative Normal NEGATIVE [facility] Comment on above: Performed By: #### P REG #### [facility] [address] [place] [address] Dr. Michele Obrien PROF 14(COMP METB)on 023 Albumin [Mass/Vol] 3.4 g/dL Normal 3.4-5.0 [facility] Comment on above: Performed By: #### C MP #### [facility] [address] [place] [address] Dr. Michele Obrien Albumin/Globulin [Mass ratio] 1.1 {ratio} Normal [facility] Comment on above: Performed By: #### C MP #### [facility] [address] [place] [address] Dr. Michele Obrien ALP [Catalytic activity/Vol] 73 U/L Normal 46-116 [facility] Comment on above: Performed By: #### C MP #### [facility] [address] [address] [address] Michele Obrien ALT [Catalytic activity/Vol] 18 U/L Normal 14-59 [facility] Comment on above: Performed By: #### C MP #### [facility] [address] [address] [address] Michele Obrien Anion gap [Moles/Vol] 11.9 mmol/L Normal [facility] Comment on above: Performed By: #### C MP #### [facility] [address] [address] [address] Michele Obrien AST [Catalytic activity/Vol] 13 U/L Critically low 15-37 [facility] Comment on above: Performed By: #### C MP #### [facility] [address] [address] [address] Michele Obrien Bilirubin [Mass/Vol] 0.1 mg/dL Critically low 0.2-1.0 [facility] Comment on above: Performed By: #### C MP #### [facility] [address] [address] [address] Michele Obrien Calcium [Mass/Vol] 8.6 mg/dL Normal 8.5-10.1 [facility] Comment on above: Performed By: #### C MP #### [facility] [address] [address] [address] Michele Obrien Chloride [Moles/Vol] 105 mmol/L Normal 98-107 [facility] Comment on above: Performed By: #### C MP #### [facility] [address] [address] [address] Michele Obrien CO2 [Moles/Vol] 26.7 mmol/L Normal 21.0-32.0 [facility] Comment on above: Performed By: #### C MP #### [facility] [address] [address] [address] Michele Obrien Creatinine [Mass/Vol] 0.85 mg/dL Normal 0.55-1.02 [facility] Comment on above: Performed By: #### C MP #### [facility] [address] [address] [address] Michele Obrien EGFR-AF NEW ZEALANDER >60 Normal >=60 [facility] Comment on above: Performed By: #### C MP #### [facility] [address] [address] [address] Michele Obrien EGFR-NON AF NEW ZEALANDER >60 Normal >=60 [facility] Comment on above: Performed By: #### C MP #### [facility] [address] [address] [address] Michele Obrien Globulin (S) [Mass/Vol] 3.1 g/dL Normal [facility] Comment on above: Performed By: #### C MP #### [facility] [address] [address] [address] Michele Obrien Glucose [Mass/Vol] 123 mg/dL Critically high 74-106 [facility] Comment on above: Performed By: #### C MP #### [facility] [address] [address] [address] Michele Obrien Potassium [Moles/Vol] 3.6 mmol/L Normal 3.5-5.1 [facility] Comment on above: Performed By: #### C MP #### [facility] [address] [address] [address] Michele Obrien Protein [Mass/Vol] 6.5 g/dL Normal 6.4-8.2 [facility] [place] Comment on above: Performed By: #### C MP #### [facility] [address] [address] [address] Michele Obrien Sodium [Moles/Vol] 140 mmol/L Normal 136-145 [facility] Comment on above: Performed By: #### C MP #### [facility] [address] [address] [address] Michele Obrien Urea nitrogen [Mass/Vol] 14.0 mg/dL Normal 7.0-18.0 [facility] Comment on above: Performed By: #### C MP #### [facility] [address] [place] [address] Dr. Michele Obrien Urea nitrogen/Creatinine [Mass ratio] 16.5 mg/mg Normal [facility] Comment on above: Performed By: #### C MP #### [facility] [address] [place] [address] Dr. Michele Obrien URINE MICROSCOPIC ONLYon BACTERIA TRACE Abnormal NONE SEEN [facility] Comment on above: Performed By: #### H IV12 #### [facility] [address] [place] [address] Dr. Michele Obrien Bacteria identified Cx Nom (U) NOT INDICATED Normal [facility] Comment on above: Performed By: #### H IV12 #### [facility] [address] [place] [address] Dr. Michele Obrien CAST NONE SEEN Normal NONE SEEN [facility] Comment on above: Performed By: #### H IV12 #### [facility] [address] [place] [address] Dr. Michele Obrien Crystals LM Nom (Urine sed) NONE SEEN Normal NONE SEEN [facility] Comment on above: Performed By: #### H IV12 #### [facility] [address] [place] [address] Dr. Michele Obrien Epithelial cells LM Ql (Urine sed) FEW Abnormal NONE SEEN /RARE [facility] Comment on above: Performed By: #### H IV12 #### [facility] [address] [place] [address] Dr. Michele Obrien MUCOUS TRACE Abnormal NONE SEEN [facility] Comment on above: Performed By: #### H IV12 #### [facility] [address] [place] [address] Dr. Michele Obrien RBC 20-50 Abnormal 0-2 [facility] Comment on above: Performed By: #### H IV12 #### [facility] [address] [place] [address] Dr. Michele Obrien WBC 0-2 Abnormal NONE SEEN [facility] Comment on above: Performed By: #### H IV12 #### [facility] [address] [place] [address] Dr. Michele Obrien HIV 1 AND 2 WITH REFLEXon HIV Screen 4th Generation wRfx Non-Reactive Normal Non Reactive [facility] Comment on above: Result Comment: HIV Negative HIV-1/HIV-2 antibodies and HIV-1 p24 antigen were NOT detected. There is no laboratory evidence of HIV infection. Performed By: #### H IV12 #### [facility] [address] [place] [address] Dr. Michele Obrien FERRITINon 10-16-2022 Ferritin [Mass/Vol] 6.0 ng/mL Critically low 6.2-137.0 [facility] Comment on above: Performed By: #### F ERR, FETIBC #### [facility] [address] [place] [address] Dr. Michele Obrien FREE T3on 10-16-2022 FREE T3 1.87 pg/mlL Critically low 2.18-3.98 [facility] Comment on above: Performed By: #### H IV12 #### [facility] [address] [place] [address] Dr. Michele Obrien HEMOGRAM AND PLATELon 2022 Hematocrit (Bld) [Volume fraction] 35.7 % Critically low 36.0-48.0 [facility] Comment on above: Performed By: #### H H #### [facility] [address] [place] [address] Dr. Michele Obrien Hemoglobin (Bld) [Mass/Vol] 10.4 g/dL Critically low 12.0-16.0 [facility] Comment on above: Performed By: #### H H #### [facility] [address] [place] [address] Dr. Michele Obrien MCH (RBC) [Entitic mass] 20.0 pg Critically low 26.7-34.0 [facility] Comment on above: Performed By: #### H H #### [facility] [address] [place] [address] Dr. Michele Obrien MCHC (RBC) [Mass/Vol] 29.1 g/dL Critically low 29.9-35.2 [facility] Comment on above: Performed By: #### H H #### [facility] [address] [address] [address] Michele Obrien MCV (RBC) [Entitic vol] 68.5 fL Critically low 81.0-99.0 [facility] Comment on above: Performed By: #### H H #### [facility] [address] [address] [address] Michele Obrien PLT 241 103/ul Normal 150-450 [facility] Comment on above: Performed By: #### H H #### [facility] [address] [place] [address] Dr. Michele Obrien RBC 5.21 106/ul Normal 4.20-5.40 [facility] Comment on above: Performed By: #### H H #### [facility] [address] [place] [address] Dr. Michele Obrien WBC 6.9 103/ul Normal 4.0-11.0 [facility] Comment on above: Performed By: #### H H #### [facility] [address] [place] [address] Dr. Michele Obrien IRON AND TIBCon 10-16-2022 % SATURATION 4.5 % Normal [facility] Comment on above: Performed By: #### F ERR, FETIBC #### [facility] [address] [place] [address] Dr. Michele Obrien Iron [Mass/Vol] 18.0 ug/dL Critically low 50.0-170.0 [facility] Comment on above: Performed By: #### F ERR, FETIBC #### [facility] [address] [place] [address] Dr. Michele Obrien TIBC DIRECT 396.0 ug/dL Normal 250.0-450.0 [facility] Comment on above: Performed By: #### F ERR, FETIBC #### [facility] [address] [place] [address] Dr. Michele Obrien TSH W/ REFLEX TO FT4on 10-16 TSH 3.577 uIU/mL Normal 0.358-3.740 [facility] Comment on above: Performed By: #### H IV12 #### [facility] [address] [place] [address] Dr. Michele Obrien VITAMIN Con 09-03-2022 Vitamin C 0.2 mg/dL Critically low 0.4-2.0 [facility] Comment on above: Result Comment: Li min C deficiency is generally defined as plasma or serum concentrations less than 0.2 mg/dL and levels between 0.2 and 0.4 mg/dL are considered low. Performed By: #### F ERR, FETIBC #### [facility] [address] [place] [address] Dr. Michele Obrien VITAMIN Aon 09-01-2022 Vitamin A 33.6 ug/dL Normal 18.9-57.3 [facility] Comment on above: Result Comment: Refe rence intervals for vitamin A determined from [facility] internal studies. Individuals with vitamin A less than 20 ug/dL are considered vitamin A deficient and those with serum concentrations less than 10 ug/dL are considered severely deficient. . This test was developed and its performance characteristics determined by [facility]. It has not been cleared or approved by the Food and Drug Administration. Performed By: #### V ITAMA #### [facility] [address] [place] [address] Dr. Michele Obrien VITAMIN Kodi 09-01-2022 Vitamin E (Alpha T) 11.9 mg/L Normal 5.9-19.4 [facility] Comment on above: Performed By: #### V ITAE #### [facility] [address] [place] [address] Dr. Michele Obrien Vitamin E (Gamma T) 1.5 mg/L Normal 0.7-4.9 [facility] Comment on above: Result Comment: Refe rence intervals for alpha and gamma-tocopherol determined from National Health and Nutrition Examination Survey, 2582-9988. Individuals with alpha-tocopherol levels less than 5.0 mg/L are considered vitamin E deficient. Performed By: #### V ITAE #### [facility] [address] [place] [address] Dr. Michele Obrien VITAMIN Garrett 08-26-2022 Vitamin K1 0.24 ng/mL Normal 0.10-2.20 [facility] Comment on above: Performed By: #### F ERR, FETIBC #### [facility] [address] [place] [address] Dr. Michele Obrien SELENIUM, PLASMAon Selenium, Serum/Plasma 110 ug/L Normal 93-198 [facility] Comment on above: Performed By: #### H IV12 #### [facility] [address] [place] [address] Dr. Michele Obrien VITAMIN B1 (THIAMINE)on 08-02 Vit. B1, Whole Blood 126.2 nmol/L Normal 66.5-200.0 [facility] Comment on above: Performed By: #### F ERR, FETIBC #### [facility] [address] [place] [address] Dr. Michele Obrien ZINC SERUM OR PLASMAon 08-23 Zinc, Plasma or Serum 69 ug/dL Normal 44-115 [facility] Comment on above: Result Comment: Dete ction Limit = 5 Performed By: #### H IV12 #### [facility] [address] [place] [address] Dr. Michele Obrien FERRITINon 08-20-2022 Ferritin [Mass/Vol] 5.0 ng/mL Critically low 6.2-137.0 [facility] Comment on above: Performed By: #### F ERR, FETIBC #### [facility] [address] [place] [address] Dr. Michele Obrien FREE T4on 08-20-2022 Free T4 [Mass/Vol] 1.01 ng/dL Normal 0.76-1.46 [facility] Comment on above: Performed By: #### H IV12 #### [facility] [address] [place] [address] Dr. Michele Obrien GLYCOHEMOGLOBIN A1Con 2022 ADA RECOMMENDATION SEE BELOW Normal [facility] Comment on above: Result Comment: ADA RECOMMENDED LIMIT 4.0 - 6.0 ADA THERAPEUTIC TARGET < 7.0 ACTION SUGGESTED > 7.0 Performed By: #### H IV12 #### [facility] [address] [address] [address] Michele Obrien Glucose [Mass/Vol] 80 mg/dL Normal [facility] Comment on above: Performed By: #### H IV12 #### [facility] [address] [place] [address] Dr. Michele Obrien HbA1c (Bld) [Mass fraction] 4.4 % Critically low 4.5-6.2 [facility] Comment on above: Performed By: #### H IV12 #### [facility] [address] [place] [address] Dr. Michele Obrien HEMOGRAM AND PLATELon 2022 Hematocrit (Bld) [Volume fraction] 29.3 % Critically low 36.0-48.0 [facility] Comment on above: Performed By: #### H IV12 #### [facility] [address] [place] [address] Dr. Michele Obrien Hemoglobin (Bld) [Mass/Vol] 9.3 g/dL Critically low 12.0-16.0 [facility] Comment on above: Performed By: #### H IV12 #### [facility] [address] [place] [address] Dr. Michele Obrien MCH (RBC) [Entitic mass] 20.1 pg Critically low 26.7-34.0 [facility] Comment on above: Performed By: #### H IV12 #### [facility] [address] [place] [address] Dr. Michele Obrien MCHC (RBC) [Mass/Vol] 31.7 g/dL Normal 29.9-35.2 [facility] Comment on above: Performed By: #### H IV12 #### [facility] [address] [address] [address] Michele Obrien MCV (RBC) [Entitic vol] 63.4 fL Critically low 81.0-99.0 [facility] Comment on above: Performed By: #### H IV12 #### [facility] [address] [place] [address] Dr. Michele Obrien PLT 213 103/ul Normal 150-450 [facility] Comment on above: Performed By: #### H IV12 #### [facility] [address] [address] [address] Michele Obrien RBC 4.62 106/ul Normal 4.20-5.40 [facility] Comment on above: Performed By: #### H IV12 #### [facility] [address] [address] [address] Michele Obrien WBC 5.8 103/ul Normal 4.0-11.0 [facility] Comment on above: Performed By: #### H IV12 #### [facility] [address] [address] [address] Michele Obrien IRON AND TIBCon 08-20-2022 % SATURATION 6.5 % Normal [facility] Comment on above: Performed By: #### F ERR, FETIBC #### [facility] [address] [address] [address] Michele Obrien Iron [Mass/Vol] 22.0 ug/dL Critically low 50.0-170.0 [facility] Comment on above: Performed By: #### F ERR, FETIBC #### [facility] [address] [address] [address] Michele Obrien TIBC DIRECT 340.0 ug/dL Normal 250.0-450.0 [facility] Comment on above: Performed By: #### F ERR, FETIBC #### [facility] [address] [address] [address] Michele Obrien LIPID PROFILEon 08-20-2022 CHOL-HDL RATIO NORM SEE BELOW Normal [facility] Comment on above: Result Comment: 3.3 - 4.4 LOW RISK 4.4 - 7.1 AVERAGE RISK 7.1 - 11.0 MODERATE RISK >11.0 HIGH RISK Performed By: #### F ERR, FETIBC #### [facility] [address] [address] [address] Michele Obrien Cholesterol [Mass/Vol] 146 mg/dL Normal <=200 [facility] Comment on above: Performed By: #### F ERR, FETIBC #### [facility] [address] [address] [address] Michele Obrien Cholesterol in HDL [Mass/Vol] 58 mg/dL Normal 40-60 [facility] Comment on above: Performed By: #### F ERR, FETIBC #### [facility] [address] [address] [address] Michele Obrien Cholesterol in LDL [Mass/Vol] 66.8 mg/dL Normal [facility] Comment on above: Performed By: #### F ERR, FETIBC #### [facility] [address] [address] [address] Michele Obrien Cholesterol.total/Ch olesterol in HDL [Mass ratio] 2.5 {ratio} Normal [facility] Comment on above: Performed By: #### F ERR, FETIBC #### [facility] [address] [address] [address] Michele Obrien HDL NORMAL > or = 60 mg/dl - LOW CARDIOVASCULAR RISK <40 mg/dl - HIGH CARDIOVASCULAR RISK Normal [facility] Comment on above: Performed By: #### F ERR, FETIBC #### [facility] [address] [address] [address] Michele Obrien LDL CALC NORMAL SEE BELOW Normal [facility] Comment on above: Result Comment: <100 mg/dl OPTIMAL 100 - 129 mg/dl NEAR OR ABOVE OPTIMAL 130 - 159 mg/dl BORDERLINE HIGH 160 - 189 mg/dl HIGH >190 mg/dl VERY HIGH Performed By: #### F ERR, FETIBC #### [facility] [address] [address] [address] Michele Obrien Triglyceride [Mass/Vol] 106 mg/dL Normal <=150 [facility] Comment on above: Performed By: #### F ERR, FETIBC #### [facility] [address] [address] [address] Michele Obrien VLDL CALC 21.2 mg/dL Normal [facility] Comment on above: Performed By: #### F ERR, FETIBC #### [facility] [address] [address] [address] Michele Obrien PROF 14(COMP METB)on 023 Albumin [Mass/Vol] 3.5 g/dL Normal 3.4-5.0 [facility] Comment on above: Performed By: #### F ERR, FETIBC #### [facility] [address] [address] [address] Michele Obrien Albumin/Globulin [Mass ratio] 1.2 {ratio} Normal [facility] Comment on above: Performed By: #### F ERR, FETIBC #### [facility] [address] [address] [address] Michele Obrine ALP [Catalytic activity/Vol] 76 U/L Normal 46-116 [facility] Comment on above: Performed By: #### F ERR, FETIBC #### [facility] [address] [address] [address] Michele Obrien ALT [Catalytic activity/Vol] 16 U/L Normal 14-59 [facility] Comment on above: Performed By: #### F ERR, FETIBC #### [facility] [address] [address] [address] Michele Obrien Anion gap [Moles/Vol] 10.0 mmol/L Normal [facility] Comment on above: Performed By: #### F ERR, FETIBC #### [facility] [address] [address] [address] Michele Obrien AST [Catalytic activity/Vol] 16 U/L Normal 15-37 [facility] Comment on above: Performed By: #### F ERR, FETIBC #### [facility] [address] [address] [address] Michele Obrien Bilirubin [Mass/Vol] 0.3 mg/dL Normal 0.2-1.0 [facility] Comment on above: Performed By: #### F ERR, FETIBC #### [facility] [address] [address] [address] Michele Obrien Calcium [Mass/Vol] 8.5 mg/dL Normal 8.5-10.1 [facility] Comment on above: Performed By: #### F ERR, FETIBC #### [facility] [address] [address] [address] Michele Obrien Chloride [Moles/Vol] 106 mmol/L Normal 98-107 [facility] Comment on above: Performed By: #### F ERR, FETIBC #### [facility] [address] [address] [address] Michele Obrien CO2 [Moles/Vol] 30.8 mmol/L Normal 21.0-32.0 [facility] Comment on above: Performed By: #### F ERR, FETIBC #### [facility] [address] [address] [address] Michele Obrien Creatinine [Mass/Vol] 0.68 mg/dL Normal 0.55-1.02 [facility] Comment on above: Performed By: #### F ERR, FETIBC #### [facility] [address] [place] [address] Dr. Michele Obrien EGFR-AF NEW ZEALANDER >60 Normal >=60 [facility] Comment on above: Performed By: #### F ERR, FETIBC #### [facility] [address] [place] [address] Dr. Michele Obrien EGFR-NON AF NEW ZEALANDER >60 Normal >=60 [facility] Comment on above: Performed By: #### F ERR, FETIBC #### [facility] [address] [place] [address] Dr. Michele Obrien Globulin (S) [Mass/Vol] 2.8 g/dL Normal [facility] Comment on above: Performed By: #### F ERR, FETIBC #### [facility] [address] [address] [address] Michele Obrien Glucose [Mass/Vol] 77 mg/dL Normal 74-106 [facility] Comment on above: Performed By: #### F ERR, FETIBC #### [facility] [address] [place] [address] Dr. Michele Obrien Potassium [Moles/Vol] 3.8 mmol/L Normal 3.5-5.1 [facility] Comment on above: Performed By: #### F ERR, FETIBC #### [facility] [address] [place] [address] Dr. Michele Obrien Protein [Mass/Vol] 6.3 g/dL Critically low 6.4-8.2 [facility] Comment on above: Performed By: #### F ERR, FETIBC #### [facility] [address] [place] [address] Dr. Michele Obrien Sodium [Moles/Vol] 143 mmol/L Normal 136-145 [facility] Comment on above: Performed By: #### F ERR, FETIBC #### [facility] [address] [place] [address] Dr. Michele Obrien Urea nitrogen [Mass/Vol] 10.0 mg/dL Normal 7.0-18.0 [facility] Comment on above: Performed By: #### F ERR, FETIBC #### [facility] [address] [place] [address] Dr. Michele Obrien Urea nitrogen/Creatinine [Mass ratio] 14.7 mg/mg Normal [facility] Comment on above: Performed By: #### F ERR, FETIBC #### [facility] [address] [place] [address] Dr. Michele Obrien TSHon 08-20-2022 TSH 4.302 uIU/mL Critically high 0.358-3.740 [facility] Comment on above: Performed By: #### F ERR, FETIBC #### [facility] [address] [place] [address] Dr. Michele Obrien VIT B12 AND FOLATEon 023 Cobalamin (Vitamin B12) [Mass/Vol] 433.0 pg/mL Normal 193.0-986.0 [facility] Comment on above: Performed By: #### B 12FOL, VITAD #### [facility] [address] [place] [address] Dr. Michele Obrien FOLATE 18.00 ng/mL Normal 8.60-58.90 [facility] Comment on above: Performed By: #### B 12FOL, VITAD #### [facility] [address] [address] [address] Michele Obrien VITAMIN D 25 OHon 08-20-2022 VIT D 25-OH 33.4 ng/mL Normal [facility] Comment on above: Performed By: #### B 12FOL, VITAD #### [facility] [address] [address] [address] Michele Obrien VIT D RANGES SEE BELOW Normal [facility] Comment on above: Result Comment: <20 ng/mL Vit D deficient 20 - <30 ng/mL Vit D insufficient 30 - 100 ng/mL Vit D sufficient >100 ng/mL Potential Toxicity Performed By: #### B 12FOL, VITAD #### [facility] [address] [address] [address] Michele Obrien Vital Signs Date Time Vital Sign Value Performing Clinician Facility 09-22-2023 09:42-0500 Body mass index (BMI) [Ratio] 44.85 kg/m2 Héctor Aguilar MD Work Phone: [facility] 09-22-2023 09:42-0500 Body weight 141.79 kg Héctor Aguilar MD Work Phone: [facility] 09-22-2023 09:42-0500 Diastolic blood pressure 74 mm[Hg] Héctor Aguilar MD Work Phone: [facility] 09-22-2023 09:42-0500 Heart rate 82 /min Héctor Aguilar MD Work Phone: [facility] 09-22-2023 09:42-0500 Systolic blood pressure 123 mm[Hg] Héctor Aguilar MD Work Phone: [facility] 09-15-2023 11:30-0500 Body mass index (BMI) [Ratio] 43.52 kg/m2 Kassandra ALBERTO Work Phone: [facility] 09-15-2023 11:30-0500 Body weight 141.52 kg Kassandra ALBERTO Work Phone: [facility] 09-15-2023 11:30-0500 Diastolic blood pressure 80 mm[Hg] Kassandra ALBERTO Work Phone: [facility] 09-15-2023 11:30-0500 Systolic blood pressure 130 mm[Hg] Kassandra ALBERTO Work Phone: [facility] 05-19-2023 15:30-0400 Body weight 128.05 kg Denys Barriosormack Other [facility] [employer] Other 05-19-2023 15:30-0400 Diastolic blood pressure 86 mm[Hg] Denys Selfack Other [facility] [employer] Other 05-19-2023 15:30-0400 Systolic blood pressure 127 mm[Hg] Denys Selfack Other [facility] [employer] Other 03-15-2023 10:48-0400 Diastolic blood pressure 80 mm[Hg] [employer] Wilber Shammo Work Phone: [facility] 03-15-2023 10:48-0400 Heart rate 63 /min [employer] Wilber Shammo Work Phone: [facility] 03-15-2023 10:48-0400 Respiratory rate 16 /min [employer] Wilber Shammo Work Phone: [facility] 03-15-2023 10:48-0400 SaO2% (BldA) [Mass fraction] 99 % [employer] Wilber Shammo Work Phone: [facility] 03-15-2023 10:48-0400 Systolic blood pressure 126 mm[Hg] [employer] Wilber Shammo Work Phone: [facility] 03-15-2023 08:43-0400 Body height 180.34 cm [employer] Wilber Shammo Work Phone: [facility] 03-15-2023 08:43-0400 Body temperature 98.2 [degF] [employer] Wilber Shammo Work Phone: [facility] 03-15-2023 08:43-0400 Body weight 129.27 kg [employer] Wilber More Work Phone: [facility] 01-17-2023 10:00-0400 Body weight 127.01 kg Denys Landa Other [employer] Other 01-17-2023 10:00-0400 Diastolic blood pressure 85 mm[Hg] Denys Landa Other [facility] [employer] Other 01-17-2023 10:00-0400 Systolic blood pressure 125 mm[Hg] Denys Landa Other [employer] Other Encounters Encounter Date Encounter Type Care Provider Facility Start: 11-30-2023 End: 11-30-2023 ambulatory KASSANDRA LINARES Not Available Start: 11-15-2023 End: 11-15-2023 ambulatory ADRIAN PARIS Not Available Start: 11-02-2023 End: 11-02-2023 ambulatory HÉCTOR AGUILAR [facility] Start: 11-02-2023 End: 11-02-2023 Office outpatient visit 15 minutes Fred Chavez MD Work Phone: [facility] Comment on above: Essential hypertensi on affecting in second trimester (Primary Dx) Start: 10-31-2023 End: 10-31-2023 ambulatory KASSANDRA LINARES Not Available Start: 10-18-2023 End: 10-19-2023 ambulatory ADRIAN R PARIS [facility] Start: 10-18-2023 Documentation procedure Fred Chavez MD Work Phone: [facility] Start: 10-13-2023 End: 10-13-2023 ambulatory ADRIAN PARIS Not Available Start: 09-22-2023 End: 09-23-2023 Orders Only Rossy Carrington RN [facility] [place] [facility] Comment on above: Pre-existing essenti al hypertension during in second trimester (Primary Dx); Advanced maternal age in multigravida, second trimester; Hypothyroid in , antepartum Start: 09-22-2023 End: 09-22-2023 Office consultation new/estab patient 60 min Héctor Aguilar MD Work Phone: [facility]- Medicine at [facility] Comment on above: Essential hypertensi on affecting in second trimester (Primary Dx) Start: 09-15-2023 End: 09-15-2023 ambulatory KASSANDRA LINARES Not Available Start: 09-15-2023 End: 09-15-2023 flow sheet Kassandra ALBERTO Work Phone: [facility] Comment on above: Second trimester pre gnancy; Diabetes mellitus screening; 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); Hypothyroidism, unspecified type (CMS/HCC) Start: 08-24-2023 Chart abstracting Liz Bee MD Work Phone: [facility]- [facility] at [facility] Start: 08-19-2023 Telephone encounter Janae Ware [facility] Start: 08-18-2023 End: 08-18-2023 ambulatory ADRIAN MIGUEL Not Available Start: 08-03-2023 ambulatory WILEBR BONILLAMO Facility:[facility] Start: 07-21-2023 End: 07-21-2023 ambulatory KASSANDRA LINARES Not Available Start: 06-13-2023 End: 06-13-2023 ambulatory ADRIAN MIGUEL Not Available Start: 05-19-2023 End: 05-19-2023 ambulatory Denys Landa Other [employer] Other Start: 05-19-2023 Office outpatient vi sit 15 minutes Denys Landa [facility] Gastroenterology Start: 03-15-2023 End: 03-15-2023 ambulatory Denys Landa Facility:[facility] Start: 03-15-2023 End: 03-15-2023 Admission to same day surgery center [facility] Wilber More Work Phone: [facility] Work Phone: Start: 03-15-2023 End: 03-15-2023 ambulatory [employer] Wilber T Shammo Work Phone: [facility] Work Phone: Start: 01-26-2023 End: 01-27-2023 ambulatory WILBER SHAMMO Facility:[facility] Start: 01-26-2023 End: 01-27-2023 ambulatory Alyson Chiu Facility:[facility] Start: 01-26-2023 End: 01-26-2023 Lab Drop off Alyson Chiu [facility] Start: 01-26-2023 End: 01-26-2023 Patient encounter procedure Alyson Chiu [facility] Start: 01-20-2023 ambulatory WILBER SHAMMO Facility:[facility] Start: 01-17-2023 End: 01-17-2023 ambulatory Denys Landa Other [employer] Other Start: 01-17-2023 Office outpatient ne w 45 minutes Denys Landa [facility] Gastroenterology Start: 12-28-2022 End: 12-28-2022 ambulatory LUKE BOWENS . Facility: Start: 10-16-2022 End: 10-17-2022 ambulatory WILBER SHAMMO Facility:[facility] Start: 08-25-2022 Encounter for genera l adult medical examination without abnormal findings WILBER SHAMMO [facility] Start: 08-20-2022 End: 08-21-2022 ambulatory WILBER SHAMMO Facility:[facility] Start: 08-20-2022 End: 08-21-2022 Encounter for general adult medical examination without abnormal findings WILBER SHAMMO Facility:[facility] Procedures Date Procedure Procedure Detail Performing Clinician Start: 09-15-2023 Urnls dip stick/tablet rgnt non-auto w/o micrscp Kassandra ALBERTO Work Phone: Start: 06-08-2023 FREE CELL DNA (NON-[facility]) Not In System Ref Prov Start: 03-15-2023 Esophagogastroduodenoscopy [employer] Wilber More Work Phone: Start: 08-01-2016 Appendectomy Alyson Chiu Start: 08-01-2016 Gastric sleeve Alyson Chiu Start: 08-01-2005 Cholecystectomy Alyson Chiu Arthroplasty of knee Alyson chamberlain Comment on above: Meniscus repair section Alyson Chiu Comment on above: x2 Plan of Treatment Date Care Activity Detail Author Start: 09-22-2024 Adult BMI Screening Adult BMI Screen ing [facility] Start: 09-22-2024 Tobacco Screening Tobacco Screening [facility] Start: 09-22-2024 End: 09-22-2024 US MFM with or without consult US MFM with or without consult Imaging Routine Pre-existing essential hypertension during in second trimester Advanced maternal age in multigravida, second trimester Hypothyroid in , antepartum Expected: 09/22/2024 (Approximate), Expires: 09/22/2024 [facility] Work Phone: Comment on above: Expected: 09/22/2024 (Approximate), Expires: 09/22/2024 Start: 04-01-2024 Influenza vaccination Influenza Vacc ine [facility] Start: 11-12-2023 Adult BMI Screening Adult BMI Screen ing [facility] Start: 11-02-2023 End: 11-02-2023 Telemedicine consultation with patient 11/02/2023 11:30 AM EDT Telemedicine [facility]- [facility] at [facility] [address] [place] [id number] Fred Chavez MD [address] [place], [place] [id number] Héctor Aguilar MD [address] [facility], [address] [place] [address] [facility] Start: 10-18-2023 End: 10-18-2023 Telemedicine consultation with patient 10/18/2023 1:30 PM EDT Telemedicine [facility] [address] [place] [address] Fred Chvaez MD [address] [place] [address] [facility] Start: 10-18-2023 End: 10-18-2023 Patient encounter procedure 10/18/2023 12:30 PM EDT Appointment [facility] - Ultrasound [address] [place] [address] [facility] - Ultrasound Start: 10-13-2023 End: 10-13-2023 Patient encounter procedure 10/13/2023 10:50 AM EDT Routine [facility] [address] [place] [phone] Adrian Miguel, [address] [place] [address] [facility] Start: 09-15-2023 End: 09-15-2024 CBC panel - Blood by Automated count CBC Lab Routine Diabetes mellitus screening Expected: 09/15/2023 (Approximate), Expires: 09/15/2024 [facility] Work Phone: Comment on above: Expected: 09/15/2023 (Approximate), Expires: 09/15/2024 Start: 09-15-2023 End: 09-15-2024 Measurement of glucose 1 hour after glucose challenge for glucose tolerance test Glucose tolerance, 1 hour Lab Routine Diabetes mellitus screening Expected: 09/15/2023 (Approximate), Expires: 09/15/2024 [facility] Comment on above: Expected: 09/15/2023 (Approximate), Expires: 09/15/2024 Start: 09-15-2023 End: 09-15-2024 Thyrotropin [Units/volume] in Serum or Plasma TSH Lab Routine Hypothyroidism, unspecified type (CMS/HCC) Expected: 09/15/2023 (Approximate), Expires: 09/15/2024 [facility] Comment on above: Expected: 09/15/2023 (Approximate), Expires: 09/15/2024 Start: 09-14-2023 End: 09-14-2023 Patient encounter procedure [facility] Start: 04-01-2023 Influenza vaccination Influenza Vacc ine [facility] Start: 03-15-2023 [facility] Start: 11-02-2007 Screening for malign ant neoplasm of cervix Pap Smear [facility] Start: 2005 DTaP,Tdap and Td Vaccines (1 - Tdap) DTaP,Tdap and Td Vaccines (1 - Tdap) [facility] Start: 2004 Adult BMI Follow Up Plan Adult BMI Follow Up Plan [facility] Start: 1998 Depression Screening Depression Scre ening [facility] Start: 1998 Tobacco Screening Tobacco Screening [facility] Hemoglobin A1c/Hemoglobin.total in Blood Hemoglobin A1c Lab Routine Diabetes mellitus screening Ordered: 09/15/2023 [facility] Comment on above: Ordered: 09/15/2023 Patient Education Hiatal hernia Diverticulosis [facility] Work Phone: Immunizations Immunization Date Immunization Notes Care Provider Alice calhoun 06-01-2022 influenza virus vaccine, unspecified formulation Alyson Chiu [facility] Payers Date Payer Category Payer Self-pay 2022 [employer] ( and others) [id number] 2022 [employer] ( and others) [id number] [facility] ( and others) [id number] 1985 Unknown [id number] [id number]3 1986 Unknown [id number] 2.16.840.1.072098.3.579.2.593 1986 Unknown [id number] 2.16.840.1.804786.3.579.2.593 1986 Unknown [id number] 2.16.840.1.615373.3.579.2.727 1986 Unknown [id number] 2.16.840.1.838588.3.579.2.727 1986 Unknown [id number] 2.16.840.1.043723.3.579.2.727 1986 Unknown [id number] 2.16.840.1.947132.3.579.2.1286 1986 Unknown [id number] 2.16.840.1.838404.3.579.2.1286 1986 Unknown [id number] 2.16.840.1.323697.3.579.2.1286 1986 Unknown [id number] 2.16.840.1.373905.3.579.2.1286 1986 Unknown [id number] 2.16.840.1.750087.3.579.2.1259 1986 Unknown [id number] 2.16.840.1.485278.3.579.2.1259 1986 Unknown [id number] 2.16.840.1.179315.3.579.2.1259 1986 Unknown [id number] 2.16.840.1.964507.3.579.2.1259 1986 Unknown [id number] 2.16.840.1.109191.3.579.2.1259 1986 Unknown [id number] 2.16.840.1.440538.3.579.2.1259 1986 Unknown [id number] 2.16.840.1.980657.3.579.2.1259 1986 Unknown [id number] 2.16.840.1.505849.3.579.2.1259 1959 [employer] ( and others) [id number] Unknown [id number] 2.16.840.1.578668.3.579.2.531 Social History Date Type Detail Facility Start: 08-24-2023 End: 09-22-2023 Sex Assigned At [facility] Start: 01-26-2023 Tobacco smoking status Ex-smoker (finding) [facility] Start: 03-15-2023 Tobacco smoking status NHIS Smoker (finding) [facility] Start: 1985 Sex Assigned At Female [facility] Tobacco smoking stat us UTIS Tobacco smoking consumption unknown [facility] Start: 1985 Sex Assigned At Not on file [facility] Start: 01-03-2023 End: 08-24-2023 Tobacco smoking status [facility] Never smoked tobacco [facility] Start: 01-03-2023 End: 08-24-2023 Tobacco use and exposure Smokeless tobacco non-user [facility] Start: 08-24-2023 End: 09-22-2023 Alcohol intake Ex-drinker (finding) [facility] Start: 08-24-2023 End: 09-22-2023 History of Social function [facility] Start: 04-11-2023 [facility] How often to you hav e [...] got money to buy more. Never True [facility] Start: 11-02-2023 Sexual orientation Heterosexual (finding) [facility] Goals Date Patient Goal Desired Activity /State Personal health goal Functional Status Date Assessment Result Facility 01-26-2023 Functional Status No [facility] Clinical Notes 01-17-2023 to 11-02-2023 [...] Depression Hypertension Hypothyroidism Kidney stones Migraines Seizure ([facility]-HCC) REVIEW OF SYSTEMS: Head and Neck: Negative [...] allowing me to participate in Lisa Allison guilherme. If there are any questions, please do not hesitate to call me. 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 We elected to proceed. documented in this encounter [facility] 10-18-2023 History of Presen t illness [...] telehealth rescheduled visit. Fred Chavez MD Professor, [facility]aternal [facility] (we called the patient ourselves and were not able to successfully connect with her) documented in this encounter [facility] 09-22-2023 History of Presen t illness Narrative Headache/epigastric pain/blurry vision/swelling? No Cramping/contractions? No Abnormal vaginal discharge? No Spotting/vaginal bleeding? No Loss of fluid like your water may have broken? No Cats in the home? No Do you change the litter box? N/A Flu vaccine? No Genetic testing done this here or other office? Yes Have you been seen here at [facility] in a previous ? No Recent ER visits or hospitalizations? No Bring blood sugar log or meter with you today? (Please bring them with you for every visit at [facility]) N/A Traveled outside the country in [...] Depression Hypertension Hypothyroidism Kidney stones Migraines Seizure (CMS-HCC) PAST OBSTETRICAL HISTORY: OB History 4 Para [...] and the other consultants, we search on [employer] and all the available care everywhere epic I did review all the imaging studies of the patient available on EMR, ordered by the primary care physician and the other telecommunications consultant HABITS: Patient activity no restrictions, diet [...] for completion of targeted anatomy at our [facility] site. 5. 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 Patient does have ultrasound office visit scheduled with us Thank you for allowing me to participate in Lisa Allison . If there any questions please do not hesitate to contact us. Sincerely, HÉCTOR AGUILAR MD documented in this encounter [facility] 09-15-2023 History of Presen t illness Narrative [...] anxiety GERD (gastroesophageal reflux disease) HTN (hypertension) (CMS/HCC) Hypothyroidism (acquired) (CMS/HCC) Iron deficiency anemia Kidney stones Migraines (CMS/HCC) Seizure (CMS/HCC) 2019 Family History Problem Relation Name Age [...] hour glucose order to have done at [facility]. Follow Up: Patient is to return [...] of: REMY Valdes documented in this encounter [facility] 08-19-2023 Miscellaneous Notes Formattin g of this note might be different from the original. LEFT A MESSAGE TO SCHEDULE USN AND CONSULT. 08/19/2023 104 documented in this encounter [facility] [employer] 08-19-2023 Telephone encount er Note LEFT A MESSAGE TO SCHEDULE USN AND CONSULT. 08/19/2023 [facility] Evaluation note Encounter Date Diagnosis Assessment [...] start metamucile and probiotics RTO 3 months [employer] Other [facility] Discharge instructions Patient Education 01/26/2023 [...] include: ?8 oz (237 mL) of milk, tqmznvd-iiktgjrzupgp-fapmw milk, and calcium- fortifiedfruit juice. Calcium-fortified means [...] ?Spinach (cooked), rhubarb, beets, sweet potatoes, and Bhutanese chard. ?Peanuts. ?Potato chips, palauan fries, and baked potatoes with skin on. ?Nuts and nut products. ?Chocolate. If you regularly take a diuretic medicine, make sure to eat at least 1 or 2 servings of fruits or vegetables that are high in potassium each day. These include: ?Avocado. ?Banana. ?[place], prune, carrot, or tomato juice. ?Baked potato. [...] magnesium, fish oil, or vitamin B6. Take ccxy-ehn-swbtrzk and prescription medicines only as told by [...] Casseroles. Pizza. Lasagna. Frozen meals. Potato chips. [place] fries. The items listed above may not [...] provider. Document Revised: 03/29/2022 Document Reviewed: 03/29/2022 [employer] Patient Education 2022 [employer] Follow Up Care 12/28/2022 12:57:40 With:Aram RUSSELL, Alyson Burdick URAjith, URO Address: When:Within 6 Month(s) Comments:marc/ DEYA & YAMILETH [facility] 06-19-2023 Evaluation note* Encounter Date Diagnosis Assessment Notes Treatment Notes Treatment Clinical Notes Dec, Iron deficiency anemia (ICD-10 - D50.9) Will proceed with EGD Will request recent lab work done at [place]. Dec, GERD (gastroesophageal reflux disease) (ICD-10 - K21.9) Patient to continue on Omeprazole 40mg Dec, Diarrhea (ICD-10 - R19.7) Will proceed with Colonoscopy. [employer] Other Evaluation + Plan note Future Appointments Appointment Date:08/03/2023 10:00:00 AM Scheduled Provider:Alyson Chiu MD Location:[facility] Appointment Type:URO Office Visit [facility] evaluation + Plan note Future Appointments Appointment Date:08/03/2023 10:00:00 AM Scheduled Provider:Alyson Chiu MD Location:[facility] Appointment Type:URO Office Visit Diagnostic Tests Pending * Calculi Analysis Urinary [facility] Diagnosis Onset Date Resolution Status Iron deficiency anemia [facility] Work Phone: Evaluation note* Diagnosis Second trimester state, incidental Diabetes mellitus screening Screening for diabetes mellitus 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) Hypothyroidism, unspecified type (CMS/HCC) documented in this encounter [facility] Healthcare[facility] note* Diagnosis Essential hypertension affecting in second trimester- Primary [facility] Diagnosis Pre-existing essential hypertension during in second trimester- Primary Advanced maternal age in multigravida, second trimester Hypothyroid in , antepartum [facility] Diagnosis Essential hypertension affecting in second trimester- Primary [facility] in this [facility] N[facility]ative - Reported* Type Description [...] left knee meniscus Hospitalization History see above [employer] Other Hospital course Narrative No data available for this section [facility] Discharge instructions No data available for this section [facility] Additional Instructions DISCHARGE INSTRUCTIONS FOR [...] if you have any problems. -Office number [phone] Work Phone: InstructionsNot on filedocumented in this encounter [facility] System[facility]ructionsNot on filedocumented in this encounter [facility] SystemInstructionsNot on filedocumented in this encounter [facility] on filedocumented in this encounter [facility]ructionsNot on filedocumented in this encounter [facility] SystemInstructionsNot on filedocumented in this encounter [facility] No data available for this section [facility] [place] Summary Purpose Family History No Family History [...] Referral Specialty Diagnoses / Procedures Referred By Jimbo t Referred To Contact Maternal and Medicine Diagnoses Pre-existing essential hypertension during in second trimester Advanced maternal age in multigravida, second trimester Hypothyroid in , antepartum Procedures US MFM with or without consult Héctor Aguilar MD [address] [facility] [place] [address] [facility] Maternal Med [address] [place] [address] Referral ID Status Reason Start Date Expiration Date V isits Requested Visits Authorized [id number] Pending Review 09/22/2023 09/21/2024 1 1 Additional Source Comments INFORMATION SOURCE (unrecogn ized section and content) DATE CREATED AUTHOR 01/07/2023 [facility] DATE CREATED AUTHOR AUTHOR'S ORGANIZ ATION 03/17/2023 [facility] DATE CREATED AUTHOR AUTHOR'S ORGANIZ ATION 08/05/2023 [facility] DATE CREATED AUTHOR AUTHOR'S ORGANIZ ATION 10/19/2023 [facility] DATE CREATED AUTHOR AUTHOR'S ORGANIZ ATION 11/03/2023 [facility] DATE CREATED AUTHOR AUTHOR'S ORGANJEREMIAS ATION 12/01/2023 [facility] dical Specialists EPIC REASON FOR VISIT (unrecogniz ed section and content) Reason Comments Routine Visit Reason Comments Advanced Maternal Age Chronic Hypertension Hypothyroidism Patient Care team informatio n (unrecognized section and content) Team Status: Active Member Role Status Dates Wilber More , [facility] Primary Care Provider Active Team Status: Inactive Member Role Status Dates Denys Landa MD Attending Provider Active Wilber More 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 [facility] [employer] provides no warranty or guarantee of the accuracy or completeness of information in this document.
[2023-12-02 09:26] VITALS: BP 131/74; PULSE 85
--- NOTE | 2023-12-02 09:37 | US_ITS ---
[address] [address] Patient Name: TIFFANI GROSMSAN MRN: [id number] date: 1985 Sex: F Assigned Patient Location: US Current Patient Location: US Accession/Order Number: [id number] Exam Date: 12/02/2023 09:49 Report Date: 12/02/2023 10:19 At the request of: YOAN TOLEDO Procedure: US OB BPP w non-stress EXAMINATION: US OB BPP w non-stress HISTORY: HYPOTHYROIDISM E03.9 COMPARISON: No relevant comparison available. TECHNIQUE: Ultrasound biophysical profile was performed in the radiology department. non-reactive stress testing was performed by nursing staff in the birthing center. FINDINGS: BREATHING MOVEMENTS: 2.0 GROSS BODY MOVEMENTS: 2.0 TONE: 2.0 QUALITATIVE AMNIOTIC FLUID VOLUME: 2.0 PRESENTATION: CEPHALIC HEART RATE: 133.7 bpm H.B./min AMNIOTIC FLUID VOLUME: 13.2 cm cm GESTATIONAL AGE: 35 weeks 4 days CONCLUSION: Total biophysical profile score: 8.0 Electronically authenticated by: PEDRO FIGUEREDO Date: 12/02/2023 10:19
== END 2023-12-02 10:04 | disposition home or self-care (01) ==
LOC: US 06:59 → FBC 09:19
PROVIDERS: PCP Nurse Practitioner Primary Care; Visit Provider Obstetrics & Gynecology
DX: O99.283 Endocrine, nutritional and metabolic diseases complicating pregnancy, third trimester (principal); E03.9 Hypothyroidism, unspecified; Z3A.35 35 weeks gestation of pregnancy; R79.89 Other specified abnormal findings of blood chemistry
CPT/HCPCS: 76818

== ENCOUNTER 2023-12-02 07:24 | Outpatient (RCR) | payer OTHER, SELFPAY ==
[2023-12-01] MEDS: BETAMETHASONE ACE/BETAMETHASONE SOD PHOS 30 MG/5 ML 12 MG IM (08:47)
[2023-12-02] MEDS: BETAMETHASONE ACE/BETAMETHASONE SOD PHOS 30 MG/5 ML 12 MG IM (08:27)
[2023-12-02 08:29] VITALS: BP 145/87; PULSE 65; TEMP 36.7; O2SAT 98
== END 2023-12-02 15:26 | disposition home or self-care (01) ==
LOC: INF 07:24
PROVIDERS: PCP Nurse Practitioner Primary Care; Visit Provider Obstetrics & Gynecology
DX: O99.283 Endocrine, nutritional and metabolic diseases complicating pregnancy, third trimester (principal); E03.9 Hypothyroidism, unspecified; R79.89 Other specified abnormal findings of blood chemistry; Z3A.35 35 weeks gestation of pregnancy; O36.8990 Maternal care for other specified fetal problems, unspecified trimester, not applicable or unspecified
CPT/HCPCS: 76818; 96372; J0702

== ENCOUNTER 2023-12-06 07:13 | Outpatient (OUT) | payer OTHER, SELFPAY ==
--- OUTSIDE RECORDS SUMMARY | 2023-12-06 07:16 | XMS_ITS | CCD ---
Author Organization [facility] Care Team Providers Care Structural Test Engineer Name Role Phone KWAN ., [...] SHAMMO, WILBER Consulting Unavailable Denys Landa Unavailable [phone] SHAMMO, WILBER TOMASA Primary Care Physician MD Denys Landa Attending Provider Shammo, [facility] Wilber T Primary Care Provider Denys [...] sources) Penicillin Drug Allergy 3 Unknown [facility] Repository (15 sources) Penicillins; Translations: [penicillins] Allergy to substance 3 Anaphylaxis (disorder), Anaphylaxis, Unknown [facility] (7 sources) topiramate; Translations: [TOPIRAMATE] Drug Allergy 4 [facility] (2 sources) Penicillin G Drug Allergy 3 Unknown [facility] Healthcare (2 sources) Topiramate Allergy to substance 3 [facility] Healthcare Medications Current Medications Medication Drug [...] Start: 01-26-2023 take 1 capsule by mo [facility] once daily levothyroxine 137 mcg (0.137 mg) [...] 09/09/2022 Active take 1 capsule by mo [facility] once daily Metoprolol Succinate 100 MG 1 [...] UA Negative Negative - 4(70) +++ mg/dL [facility] Healthcare Blood, UA Negative Negative - 50 Maikol/mcL [facility] Clarity, UA Clear [facility] Color, UA Yellow [facility] Glucose, UA Negative Negative - 2000(110) ++++ mg/dL [facility] Interpretation and review of laboratory results Abnormal [facility] Ketones, UA Negative Negative - 160(16) ++++ mg/dL [facility] Leukocytes, UA Negative Negative - 500+++ Endy/mcL [facility] Nitrite, UA Negative Negative - Positive [facility] pH, UA 6.0 5 - 9 [facility] Protein, UA Trace Negative - 2000(20) ++++ mg/dL [facility] Spec Grav, UA 1.025 1 - 1.03 [facility] Urobilinogen, UA 0.2 0.2 - 12 mg/dL [facility] Healthcare Reminderson 08-05-2023 Reminders - From: [...] EST Subject: RE: Reminder Message No Normal [facility] Free Cell DNAon 2022 [facility] HCG ( test) IA.rapi d Ql (U)Ordered By: Denys Landa on 03-15-2023 HCG ( test) Ql (U) Negative [facility] HCG,Urineon 03-15-2023 Beta HCG ( test) Ql (U) Negative Normal [facility] Comment on above: Result Comment: PERF ORMED BY: [place] [address] PATHOLOGIST [employer] PROGRAM DIRECTOR SALVADOR LEHMAN M.D. Performed By: #### U HCG #### [address] Arturo 03-15-2023 L Specimen: [id number] Received: 03/15/23 Status: KENISHA Tavon Num: [id number] Spec Type: Surgical Subm Dr: Denys Landa MD Tissues: A Duodenum - Biopsy (DUODENAL BX) B STOMACH FOR HP (ANTRAL BX HP) C Esophagus Biopsy (ESOPHAGUS BX) Procedures: HE/6, Gross/Micro L4/3, H PYLORI Age/ Patient Sex Location Account Attending Physician Lisa Allison 37/F [id number] Denys Landa MD SPEC NUM: [id number] RECD: 03/15/23 STATUS: KENISHA MONTES DE OCA NUM: [id number] RODERICK: 03/15/23- [facility] DR: Denys Landa MD ENTERED: 03/15/23-11[address] [facility] DR: CESAR TYPE: Surgical DEPT: S [...] eosinophilic exocytosis or eosinophilic esophagitis identified Specimen: [id number] Received: 03/15/23 Status: KENISHA Montes De Oca Num: [id number] Spec Type: Surgical Subm Dr: Denys Landa MD Tissues: A Duodenum - Biopsy (DUODENAL BX) B STOMACH FOR HP (ANTRAL BX HP) C Esophagus Biopsy (ESOPHAGUS BX) Procedures: HE/6, Gross/Micro L4/3, H PYLORI Patient: Lisa Allison [id number] (Continued) Specimen: [id number] Received: 03/15/23 (Continued) Signed (signature on file) Bharti Obrien MD 03/16/23 1658 Specimen: [id number] Received: 03/15/23 Status: KENISHA Montes De Oca Num: [id number] Spec Type: Surgical Subm Dr: Denys Landa MD Tissues: A Duodenum - Biopsy (DUODENAL BX) B STOMACH FOR HP (ANTRAL BX HP) C Esophagus Biopsy (ESOPHAGUS BX) Procedures: /6, Gross/Micro L4/3, H PYLORI Patient: EstefanyLisa hwang Roberta [id number] (Continued) Specimen: [id number] Received: 03/15/23 (Continued) Clinical Information LARISSA, rule [...] microscopic examination confirms the diagnosis. CPT Codes 96918w5, 75491 -- (more content not included)... Normal [facility] Calculus Analysison 02-06-20 23 Calcium oxalate dihydrate Infrared spectroscopy (Stone) [Mass fraction] 30 % Invalid Interpretation Code [facility] Comment on above: Performed By: #### 1 [id number] #### [facility] [address] [place] [address] Calcium oxalate monohydrate (Stone) [Mass fraction] 70 % Invalid Interpretation Code [facility] Comment on above: Performed By: #### 1 [id number] #### [facility] [address] [place] [address] Color (Stone) Brown Invalid Interpretation Code [facility] Comment on above: Performed By: #### 1 [id number] #### [facility] [address] [place] [address] Composition Comment Invalid Interpretation Code [facility] Comment on above: Result Comment: Perc entage (Represents the % composition) Performed By: #### 1 [id number] #### [facility] [address] [place] [address] Disclaimer: Comment Invalid Interpretation Code [facility] Comment on above: Result Comment: This test was developed and its performance characteristics determined by [facility]. It has not been cleared or approved by the Food and Drug Administration. Performed at: [facility] [address] [place], [place] [id number] PhD Roya Prajapati Performed By: #### 1 [id number] #### [facility] [address] [place] [address] Laboratory comment Asa (Report) Comment Invalid Interpretation Code [facility] Comment on above: Result Comment: Brad tafoya questions regarding Calculi Analysis [facility] at: [phone]. Performed By: #### 1 [id number] #### [facility] [address] [place] [address] Please Note: Comment Invalid Interpretation Code [facility] Comment on above: Result Comment: Calc dory report will follow via computer, mail or creative director delivery. Performed By: #### 1 [id number] #### [facility] [address] [place] [address] Size (Stone) [Entitic vol] 3x3 Invalid Interpretation Code [facility] Comment on above: Result Comment: Mult iple pieces received. Dimensions of the largest piece reported. Performed By: #### 1 [id number] #### [facility] [address] [place] [address] Specimen source subject Nom Comment Invalid Interpretation Code [facility] Comment on above: Result Comment: Not provided Performed By: #### 1 [id number] #### [facility] [address] [place] [address] Stone Photo Comment Invalid Interpretation Code [facility] Comment on above: Result Comment: Phot ograph will follow under a separate cover Performed By: #### 1 [id number] #### [facility] [address] [place] [address] Weight (Stone) 8 mg Invalid Interpretation Code [facility] Comment on above: Performed By: #### 1 [id number] #### [facility] [address] [place] [address] [facility]son 01-26-2023 Forms [id number] #1.00CD:127 Normal [facility] Patient Educationon 01-27-20 23 Patient Education Nephrology [...] Spinach (cooked), rhubarb, beets, sweet potatoes, and Ukrainian chard. ? Peanuts. ? Potato chips, british fries, and baked potatoes with skin on. ? Nuts and nut products. ? Chocolate. ? If you regularly take a diuretic medicine, make sure to eat at least 1 or 2 servings of fruits or vegetables that are high in potassium each day. These include: ? Avocado. ? Banana. ? [place], prune, carrot, or tomato juice. ? Baked [...] fish oil, or vitamin B6. ? Take ufep-hbf-pgodnzb and prescription medicines only as told by your health care provider. These include supplements. What foods should I limit? Limit your in (more content not included)... Normal [facility] RAD - MISCon 01-26-2023 RAD - MISC [id number] #1.00CD:127 [facility] Screenson 01-26-2023 Screens [id number] #1.00CD:127 [facility] Urology Office/Clinic Noteon 01-26-2023 Urology Office/Clinic Note Chief Complaint kidney stones HPI Staff Pt is a new pt, never before seen in our office. Here today due to kidney stones. [facility] 12/27/22 due to Rt flank pain [...] for this patient from Dr. Herron @ [facility]. I have reviewed and verified the staff [...] Pt had gastric bypass in 2016 in [place]. Has had diarrhea since she had her [...] Nitrite Uri (more content not included)... Normal [facility] Comment on above: Result Comment: Elec tronically Signed By: Alyson Chiu MD\.br\Date and Time Signed: 01/26/23 21:46 EDT\.br\Electronically Co-Signed By: Ewa Valentin\.br\Date and Time Co-Signed: 01/26/23 10:54 EDT ED Note-Physicianon 01-24-20 ED Note-Physician [id number]#1.00CD:127 Normal [facility] Lab Reportson 01-23-2023 Lab Reports [id number]#1.00CD:127 Normal [facility] RAD - CT Reporton 01-23-2023 RAD - CT Report [id number]# 1.00CD:127 Normal [facility] CBC AUTO DIFFon 12-28-2022 BASO # 0.0 103/ul Normal 0.0-0.1 [facility] Comment on above: Performed By: #### F ERR, FETIBC #### [facility] [address] [place] [address] Dr. Michele Obrien Basophils/100 WBC (Bld) 0.5 % Normal 0.2-2.0 [facility] Comment on above: Performed By: #### F ERR, FETIBC #### [facility] [address] [place] [address] [address] Michele Obrien EO # 0.2 103/ul Normal 0.0-0.7 [facility] Comment on above: Performed By: #### F ERR, FETIBC #### [facility] [address] [address] [address] Michele Obrien Eosinophils/100 WBC (Bld) 2.6 % Normal 0.9-7.0 [facility] Comment on above: Performed By: #### F ERR, FETIBC #### [facility] [address] [place] [address] Dr. Michele Obrien Erythrocyte distribution width (RBC) [Ratio] 19.1 % Critically high 11.0-15.0 [facility] Comment on above: Performed By: #### F ERR, FETIBC #### [facility] [address] [place] [address] Dr. Michele Obrien Hematocrit (Bld) [Volume fraction] 37.6 % Normal 36.0-48.0 [facility] Comment on above: Performed By: #### F ERR, FETIBC #### [facility] [address] [place] [address] Dr. Michele Obrien Hemoglobin (Bld) [Mass/Vol] 11.9 g/dL Critically low 12.0-16.0 [facility] Comment on above: Performed By: #### F ERR, FETIBC #### [facility] [address] [place] [address] Dr. Michele Obrien IG # 0.03 10e3/ul Normal 0.00-0.03 [facility] Comment on above: Performed By: #### F ERR, FETIBC #### [facility] [address] [place] [address] Dr. Michele Obrien IG % 0.3 % Normal 0.0-0.5 [facility] Comment on above: Performed By: #### F ERR, FETIBC #### [facility] [address] [place] [address] Dr. Michele Obrien LYMPH # 1.6 103/ul Normal 1.2-3.8 [facility] Comment on above: Performed By: #### F ERR, FETIBC #### [facility] [address] [place] [address] Dr. Michele Obrien Lymphocytes/100 WBC (Bld) 18.4 % Critically low 20.5-60.0 [facility] Comment on above: Performed By: #### F ERR, FETIBC #### [facility] [address] [place] [address] Dr. Michele Obrien MANUAL DIFF REQ NO Normal [facility] Comment on above: Performed By: #### F ERR, FETIBC #### [facility] [address] [place] [address] Dr. Michele Obrien MCH (RBC) [Entitic mass] 23.7 pg Critically low 26.7-34.0 [facility] Comment on above: Performed By: #### F ERR, FETIBC #### [facility] [address] [place] [address] Dr. Michele Obrien MCHC (RBC) [Mass/Vol] 31.6 g/dL Normal 29.9-35.2 [facility] Comment on above: Performed By: #### F ERR, FETIBC #### [facility] [address] [place] [address] Dr. Michele Obrien MCV (RBC) [Entitic vol] 74.9 fL Critically low 81.0-99.0 [facility] Comment on above: Performed By: #### F ERR, FETIBC #### [facility] [address] [place] [address] Dr. Michele Orbien MONO # 0.5 103/ul Normal 0.3-0.8 [facility] Comment on above: Performed By: #### F ERR, FETIBC #### [facility] [address] [place] [address] Dr. Michele Obrien Monocytes/100 WBC (Bld) 5.9 % Normal 1.7-12.0 [facility] Comment on above: Performed By: #### F ERR, FETIBC #### [facility] [address] [place] [address] Dr. Michele Obrien NEUT # 6.4 103/ul Normal 1.4-6.5 [facility] Comment on above: Performed By: #### F ERR, FETIBC #### [facility] [address] [place] [address] Dr. Michele Obrien Neutrophils/100 WBC (Bld) 72.3 % Normal 43.0-75.0 [facility] Comment on above: Performed By: #### F ERR, FETIBC #### [facility] [address] [address] [address] Michele Obrien Platelet mean volume (Bld) [Entitic vol] 10.2 fL Normal 9.5-13.5 [facility] Comment on above: Performed By: #### F ERR, FETIBC #### [facility] [address] [place], [place] [address] Dr. Michele Obrien PLT 243 103/ul Normal 150-450 [facility] Comment on above: Performed By: #### F ERR, FETIBC #### [facility] [address] [place], [place] [address] Dr. Michele Obrien RBC 5.02 106/ul Normal 4.20-5.40 [facility] Comment on above: Performed By: #### F ERR, FETIBC #### [facility] [address] [address] [address] Michele Obrien WBC 8.9 103/ul Normal 4.0-11.0 [facility] Comment on above: Performed By: #### F ERR, FETIBC #### [facility] [address] [address] ABD/PELVIS WO CONon [...] authenticated by: ALEXA Harper: 2022-12-28 02:25 Normal [facility] ER URINE PROFILEon 3 Bilirubin Ql (U) Negative Normal NEGATIVE [facility] Comment on above: Performed By: #### H IV12 #### [facility] [address] [address] [address] Michele Obrien Clarity (U) CLEAR Normal CLEAR [facility] Comment on above: Performed By: #### H IV12 #### [facility] [address] [address] [address] Michlee Obrien Color (U) LT. YELLOW Normal YELLOW [facility] Comment on above: Performed By: #### H IV12 #### [facility] [address] [place] [address] Dr. Michele JACKSON A micrscopic examination will be performed if indicated. Normal [facility] Comment on above: Performed By: #### H IV12 #### [facility] [address] [address] [address] Michele Obrien Glucose Ql (U) Negative Normal NEGATIVE [facility] Comment on above: Performed By: #### H IV12 #### [facility] [address] [address] [address] Michele Obrien Hemoglobin Ql (U) MODERATE Abnormal NEGATIVE [facility] Comment on above: Performed By: #### H IV12 #### [facility] [address] [address] [address] Michele Obrien Ketones Ql (U) Negative Normal NEGATIVE [facility] Comment on above: Performed By: #### H IV12 #### [facility] [address] [address] [address] Michele Obrien LEUKOCYTES Negative Normal NEGATIVE [facility] Comment on above: Performed By: #### H IV12 #### [facility] [address] [place] [address] Dr. Michele Obrien Nitrite Ql (U) Negative Normal NEGATIVE [facility] Comment on above: Performed By: #### H IV12 #### [facility] [address] [place] [address] Dr. Michele Obrien pH (U) 5.5 [pH] Normal 5-9 [facility] Comment on above: Performed By: #### H IV12 #### [facility] [address] [place] [address] Dr. Michele Obrien SPEC GRAVITY 1.025 Normal 1.005-<=1.025 [facility] Comment on above: Performed By: #### H IV12 #### [facility] [address] [place] [address] Dr. Michele Obrien UA PROTEIN Negative Normal NEGATIVE/ TRACE [facility] Comment on above: Performed By: #### H IV12 #### [facility] [address] [place] [address] Dr. Michele Obrien UR MICRO IND INDICATED Normal [facility] Comment on above: Performed By: #### H IV12 #### [facility] [address] [place] [address] Dr. Michele Obrien Urobilinogen Qn (U) 0.2 {Ijeoma'U}/dL Normal 0.2 - 1. 0 [facility] Comment on above: Performed By: #### H IV12 #### [facility] [address] [place] [address] Dr. Michele Obrien PREG HCG QUALon 12-28-2022 , QUAL Negative Normal NEGATIVE [facility] Comment on above: Performed By: #### P REG #### [facility] [address] [place] [address] Dr. Michele Obrien PROF 14(COMP METB)on 023 Albumin [Mass/Vol] 3.4 g/dL Normal 3.4-5.0 [facility] Comment on above: Performed By: #### C MP #### [facility] [address] [place] [address] Dr. Michele Obrien Albumin/Globulin [Mass ratio] 1.1 {ratio} Normal [facility] Comment on above: Performed By: #### C MP #### [facility] [address] [place] [address] Dr. Michele Obrien ALP [Catalytic activity/Vol] 73 U/L Normal 46-116 [facility] Comment on above: Performed By: #### C MP #### [facility] [address] [address] [address] Michele Obrien ALT [Catalytic activity/Vol] 18 U/L Normal 14-59 [facility] Comment on above: Performed By: #### C MP #### [facility] [address] [address] [address] Michele Obrien Anion gap [Moles/Vol] 11.9 mmol/L Normal [facility] Comment on above: Performed By: #### C MP #### [facility] [address] [address] [address] Michele Obrien AST [Catalytic activity/Vol] 13 U/L Critically low 15-37 [facility] Comment on above: Performed By: #### C MP #### [facility] [address] [address] [address] Michele Obrien Bilirubin [Mass/Vol] 0.1 mg/dL Critically low 0.2-1.0 [facility] Comment on above: Performed By: #### C MP #### [facility] [address] [address] [address] Michele Obrien Calcium [Mass/Vol] 8.6 mg/dL Normal 8.5-10.1 [facility] Comment on above: Performed By: #### C MP #### [facility] [address] [address] [address] Michele Obrien Chloride [Moles/Vol] 105 mmol/L Normal 98-107 [facility] Comment on above: Performed By: #### C MP #### [facility] [address] [address] [address] Michele Obrien CO2 [Moles/Vol] 26.7 mmol/L Normal 21.0-32.0 [facility] Comment on above: Performed By: #### C MP #### [facility] [address] [address] [address] Michele Obrien Creatinine [Mass/Vol] 0.85 mg/dL Normal 0.55-1.02 [facility] Comment on above: Performed By: #### C MP #### [facility] [address] [address] [address] Michele Obrien EGFR-AF CHILEAN >60 Normal >=60 [facility] Comment on above: Performed By: #### C MP #### [facility] [address] [address] [address] Michele Obrien EGFR-NON AF CHILEAN >60 Normal >=60 [facility] Comment on above: Performed By: #### C MP #### [facility] [address] [address] [address] Michele Obrien Globulin (S) [Mass/Vol] 3.1 g/dL Normal [facility] Comment on above: Performed By: #### C MP #### [facility] [address] [address] [address] Michele Obrien Glucose [Mass/Vol] 123 mg/dL Critically high 74-[address] [facility] Comment on above: Performed By: #### C MP #### [facility] [address] [address] [address] Michele Obrien Potassium [Moles/Vol] 3.6 mmol/L Normal 3.5-5.1 [facility] Comment on above: Performed By: #### C MP #### [facility] [address] [address] [address] Michele Obrien Protein [Mass/Vol] 6.5 g/dL Normal 6.4-8.2 [facility] Comment on above: Performed By: #### C MP #### [facility] [address] [address] [address] Michele Obrien Sodium [Moles/Vol] 140 mmol/L Normal 136-145 [facility] Comment on above: Performed By: #### C MP #### [facility] [address] [address] [address] Michele Obrien Urea nitrogen [Mass/Vol] 14.0 mg/dL Normal 7.0-18.0 [facility] Comment on above: Performed By: #### C MP #### [facility] [address] [place] [address] Dr. Michele Obrien Urea nitrogen/Creatinine [Mass ratio] 16.5 mg/mg Normal [facility] Comment on above: Performed By: #### C MP #### [facility] [address] [place] [address] Dr. Michele Obrien URINE MICROSCOPIC ONLYon BACTERIA TRACE Abnormal NONE SEEN [facility] Comment on above: Performed By: #### H IV12 #### [facility] [address] [place] [address] Dr. Michele Obrien Bacteria identified Cx Nom (U) NOT INDICATED Normal [facility] Comment on above: Performed By: #### H IV12 #### [facility] [address] [place] [address] Dr. Michele Obrien CAST NONE SEEN Normal NONE SEEN [facility] Comment on above: Performed By: #### H IV12 #### [facility] [address] [place] [address] Dr. Michele Obrien Crystals LM Nom (Urine sed) NONE SEEN Normal NONE SEEN [facility] Comment on above: Performed By: #### H IV12 #### [facility] [address] [place] [address] Dr. Michele Obrien Epithelial cells LM Ql (Urine sed) FEW Abnormal NONE SEEN /RARE [facility] Comment on above: Performed By: #### H IV12 #### [facility] [address] [place] [address] Dr. Michele Obrien MUCOUS TRACE Abnormal NONE SEEN [facility] Comment on above: Performed By: #### H IV12 #### [facility] [address] [place] [address] Dr. Michele Obrien RBC 20-50 Abnormal 0-2 [facility] Comment on above: Performed By: #### H IV12 #### [facility] [address] [place] [address] Dr. Michele Obrien WBC 0-2 Abnormal NONE SEEN [facility] Comment on above: Performed By: #### H IV12 #### [facility] [address] [place] [address] Dr. Michele Obrien HIV 1 AND 2 WITH REFLEXon HIV Screen 4th Generation wRfx Non-Reactive Normal Non Reactive [facility] Comment on above: Result Comment: HIV Negative HIV-1/HIV-2 antibodies and HIV-1 p24 antigen were NOT detected. There is no laboratory evidence of HIV infection. Performed By: #### H IV12 #### [facility] [address] [place] [address] Dr. Michele Obrien FERRITINon 10-16-2022 Ferritin [Mass/Vol] 6.0 ng/mL Critically low 6.2-137.0 [facility] Comment on above: Performed By: #### F ERR, FETIBC #### [facility] [address] [place] [address] Dr. Michele Obrien FREE T3on 10-16-2022 FREE T3 1.87 pg/mlL Critically low 2.18-3.98 [facility] Comment on above: Performed By: #### H IV12 #### [facility] [address] [place] [address] Dr. Michele Obrien HEMOGRAM AND PLATELon 2022 Hematocrit (Bld) [Volume fraction] 35.7 % Critically low 36.0-48.0 [facility] Comment on above: Performed By: #### H H #### [facility] [address] [place] [address] Dr. Michele Obrien Hemoglobin (Bld) [Mass/Vol] 10.4 g/dL Critically low 12.0-16.0 [facility] Comment on above: Performed By: #### H H #### [facility] [address] [place] [address] Dr. Michele Obrien MCH (RBC) [Entitic mass] 20.0 pg Critically low 26.7-34.0 [facility] Comment on above: Performed By: #### H H #### [facility] [address] [place] [address] Dr. Michele Obrien MCHC (RBC) [Mass/Vol] 29.1 g/dL Critically low 29.9-35.2 [facility] Comment on above: Performed By: #### H H #### [facility] [address] [address] [address] Michele Obrien MCV (RBC) [Entitic vol] 68.5 fL Critically low 81.0-99.0 [facility] Comment on above: Performed By: #### H H #### [facility] [address] [address] [address] Michele Obrien PLT 241 103/ul Normal 150-450 [facility] Comment on above: Performed By: #### H H #### [facility] [address] [place] [address] Dr. Michlee Obrien RBC 5.21 106/ul Normal 4.20-5.40 [facility] Comment on above: Performed By: #### H H #### [facility] [address] [place] [address] Dr. Michele Obrien WBC 6.9 103/ul Normal 4.0-11.0 [facility] Comment on above: Performed By: #### H H #### [facility] [address] [place] [address] Dr. Michele Obrien IRON AND TIBCon 10-16-2022 % SATURATION 4.5 % Normal [facility] Comment on above: Performed By: #### F ERR, FETIBC #### [facility] [address] [place] [address] Dr. Michele Obrien Iron [Mass/Vol] 18.0 ug/dL Critically low 50.0-170.0 [facility] Comment on above: Performed By: #### F ERR, FETIBC #### [facility] [address] [place] [address] Dr. Michele Obrien TIBC DIRECT 396.0 ug/dL Normal 250.0-450.0 [facility] Comment on above: Performed By: #### F ERR, FETIBC #### [facility] [address] [place] [address] Dr. Michele Obrien TSH W/ REFLEX TO FT4on 10-16 TSH 3.577 uIU/mL Normal 0.358-3.740 [facility] Comment on above: Performed By: #### H IV12 #### [facility] [address] [place] [address] Dr. Michele Obrien VITAMIN Con 09-03-2022 Vitamin C 0.2 mg/dL Critically low 0.4-2.0 [facility] Comment on above: Result Comment: Li min C deficiency is generally defined as plasma or serum concentrations less than 0.2 mg/dL and levels between 0.2 and 0.4 mg/dL are considered low. Performed By: #### F ERR, FETIBC #### [facility] [address] [place] [address] Dr. Michele Obrien VITAMIN Aon 09-01-2022 Vitamin A 33.6 ug/dL Normal 18.9-57.3 [facility] Comment on above: Result Comment: Refe rence intervals for vitamin A determined from [facility] internal studies. Individuals with vitamin A less than 20 ug/dL are considered vitamin A deficient and those with serum concentrations less than 10 ug/dL are considered severely deficient. . This test was developed and its performance characteristics determined by [facility]. It has not been cleared or approved by the Food and Drug Administration. Performed By: #### V ITAMA #### [facility] [address] [place] [address] Dr. Michele Obrien VITAMIN Kdoi 09-01-2022 Vitamin E (Alpha T) 11.9 mg/L Normal 5.9-19.4 [facility] Comment on above: Performed By: #### V ITAE #### [facility] [address] [place] [address] Dr. Michele Obrien Vitamin E (Gamma T) 1.5 mg/L Normal 0.7-4.9 [facility] Comment on above: Result Comment: Refe rence intervals for alpha and gamma-tocopherol determined from National Health and Nutrition Examination Survey, 5878-9474. Individuals with alpha-tocopherol levels less than 5.0 mg/L are considered vitamin E deficient. Performed By: #### V ITAE #### [facility] [address] [place] [address] Dr. Michele Obrien VITAMIN Garrett 08-26-2022 Vitamin K1 0.24 ng/mL Normal 0.10-2.20 [facility] Comment on above: Performed By: #### F ERR, FETIBC #### [facility] [address] [place] [address] Dr. Michele Obrien SELENIUM, PLASMAon Selenium, Serum/Plasma 110 ug/L Normal 93-198 [facility] Comment on above: Performed By: #### H IV12 #### [facility] [address] [place] [address] Dr. Michele Obrien VITAMIN B1 (THIAMINE)on 08-02 Vit. B1, Whole Blood 126.2 nmol/L Normal 66.5-200.0 [facility] Comment on above: Performed By: #### F ERR, FETIBC #### [facility] [address] [place] [address] Dr. Michele Obrien ZINC SERUM OR PLASMAon 08-23 Zinc, Plasma or Serum 69 ug/dL Normal 44-115 [facility] Comment on above: Result Comment: Dete ction Limit = 5 Performed By: #### H IV12 #### [facility] [address] [place] [address] Dr. Michele Obrien FERRITINon 08-20-2022 Ferritin [Mass/Vol] 5.0 ng/mL Critically low 6.2-137.0 [facility] Comment on above: Performed By: #### F ERR, FETIBC #### [facility] [address] [place] [address] Dr. Michele Obrien FREE T4on 08-20-2022 Free T4 [Mass/Vol] 1.01 ng/dL Normal 0.76-1.46 [facility] Comment on above: Performed By: #### H IV12 #### [facility] [address] [place] [address] Dr. Michele Obrien GLYCOHEMOGLOBIN A1Con 2022 ADA RECOMMENDATION SEE BELOW Normal [facility] Comment on above: Result Comment: ADA RECOMMENDED LIMIT 4.0 - 6.0 ADA THERAPEUTIC TARGET < 7.0 ACTION SUGGESTED > 7.0 Performed By: #### H IV12 #### [facility] [address] [address] [address] Michele Obrien Glucose [Mass/Vol] 80 mg/dL Normal [facility] Comment on above: Performed By: #### H IV12 #### [facility] [address] [place] [address] Dr. Michele Obrien HbA1c (Bld) [Mass fraction] 4.4 % Critically low 4.5-6.2 [facility] Comment on above: Performed By: #### H IV12 #### [facility] [address] [place] [address] Dr. Michele Obrien HEMOGRAM AND PLATELon 2022 Hematocrit (Bld) [Volume fraction] 29.3 % Critically low 36.0-48.0 [facility] Comment on above: Performed By: #### H IV12 #### [facility] [address] [place] [address] Dr. Michele Obrien Hemoglobin (Bld) [Mass/Vol] 9.3 g/dL Critically low 12.0-16.0 [facility] Comment on above: Performed By: #### H IV12 #### [facility] [address] [place] [address] Dr. Michele Obrien MCH (RBC) [Entitic mass] 20.1 pg Critically low 26.7-34.0 [facility] Comment on above: Performed By: #### H IV12 #### [facility] [address] [place] [address] Dr. Michele Obrien MCHC (RBC) [Mass/Vol] 31.7 g/dL Normal 29.9-35.2 [facility] Comment on above: Performed By: #### H IV12 #### [facility] [address] [address] [address] Michele Obrien MCV (RBC) [Entitic vol] 63.4 fL Critically low 81.0-99.0 [facility] Comment on above: Performed By: #### H IV12 #### [facility] [address] [place] [address] Dr. Michele Obrien PLT 213 103/ul Normal 150-450 [facility] Comment on above: Performed By: #### H IV12 #### [facility] [address] [address] [address] Michele Obrien RBC 4.62 106/ul Normal 4.20-5.40 [facility] Comment on above: Performed By: #### H IV12 #### [facility] [address] [address] [address] Michele Obrien WBC 5.8 103/ul Normal 4.0-11.0 [facility] Comment on above: Performed By: #### H IV12 #### [facility] [address] [address] [address] Michele Obrien IRON AND TIBCon 08-20-2022 % SATURATION 6.5 % Normal [facility] Comment on above: Performed By: #### F ERR, FETIBC #### [facility] [address] [address] [address] Michele Obrien Iron [Mass/Vol] 22.0 ug/dL Critically low 50.0-170.0 [facility] Comment on above: Performed By: #### F ERR, FETIBC #### [facility] [address] [address] [address] Michele Obrien TIBC DIRECT 340.0 ug/dL Normal 250.0-450.0 [facility] Comment on above: Performed By: #### F ERR, FETIBC #### [facility] [address] [address] [address] Michele Obrien LIPID PROFILEon 08-20-2022 CHOL-HDL RATIO NORM SEE BELOW Normal [facility] Comment on above: Result Comment: 3.3 - 4.4 LOW RISK 4.4 - 7.1 AVERAGE RISK 7.1 - 11.0 MODERATE RISK >11.0 HIGH RISK Performed By: #### F ERR, FETIBC #### [facility] [address] [address] [address] Michele Obrien Cholesterol [Mass/Vol] 146 mg/dL Normal <=200 [facility] Comment on above: Performed By: #### F ERR, FETIBC #### [facility] [address] [address] [address] Michele Obrien Cholesterol in HDL [Mass/Vol] 58 mg/dL Normal 40-60 [facility] Comment on above: Performed By: #### F ERR, FETIBC #### [facility] [address] [address] [address] Michele Obrien Cholesterol in LDL [Mass/Vol] 66.8 mg/dL Normal [facility] Comment on above: Performed By: #### F ERR, FETIBC #### [facility] [address] [address] [address] Michele Obrien Cholesterol.total/Ch olesterol in HDL [Mass ratio] 2.5 {ratio} Normal [facility] Comment on above: Performed By: #### F ERR, FETIBC #### [facility] [address] [address] [address] Michele Obrien HDL NORMAL > or = 60 mg/dl - LOW CARDIOVASCULAR RISK <40 mg/dl - HIGH CARDIOVASCULAR RISK Normal [facility] Comment on above: Performed By: #### F ERR, FETIBC #### [facility] [address] [address] [address] Michele Obrien LDL CALC NORMAL SEE BELOW Normal [facility] Comment on above: Result Comment: <100 mg/dl OPTIMAL 100 - 129 mg/dl NEAR OR ABOVE OPTIMAL 130 - 159 mg/dl BORDERLINE HIGH 160 - 189 mg/dl HIGH >190 mg/dl VERY HIGH Performed By: #### F ERR, FETIBC #### [facility] [address] [address] [address] Michele Obrien Triglyceride [Mass/Vol] 106 mg/dL Normal <=150 [facility] Comment on above: Performed By: #### F ERR, FETIBC #### [facility] [address] [address] [address] Michele Obrien VLDL CALC 21.2 mg/dL Normal [facility] Comment on above: Performed By: #### F ERR, FETIBC #### [facility] [address] [address] [address] Michele Obrien PROF 14(COMP METB)on 023 Albumin [Mass/Vol] 3.5 g/dL Normal 3.4-5.0 [facility] Comment on above: Performed By: #### F ERR, FETIBC #### [facility] [address] [address] [address] Michele Obrien Albumin/Globulin [Mass ratio] 1.2 {ratio} Normal [facility] Comment on above: Performed By: #### F ERR, FETIBC #### [facility] [address] [address] [address] Michele Obrien ALP [Catalytic activity/Vol] 76 U/L Normal 46-116 [facility] Comment on above: Performed By: #### F ERR, FETIBC #### [facility] [address] [address] [address] Michele Obrien ALT [Catalytic activity/Vol] 16 U/L Normal 14-59 [facility] Comment on above: Performed By: #### F ERR, FETIBC #### [facility] [address] [address] [address] Michele Obrien Anion gap [Moles/Vol] 10.0 mmol/L Normal [facility] Comment on above: Performed By: #### F ERR, FETIBC #### [facility] [address] [address] [address] Michele Obrien AST [Catalytic activity/Vol] 16 U/L Normal 15-37 [facility] Comment on above: Performed By: #### F ERR, FETIBC #### [facility] [address] [address] [address] Michele Obrien Bilirubin [Mass/Vol] 0.3 mg/dL Normal 0.2-1.0 [facility] Comment on above: Performed By: #### F ERR, FETIBC #### [facility] [address] [address] [address] Michele Obrien Calcium [Mass/Vol] 8.5 mg/dL Normal 8.5-10.1 [facility] Comment on above: Performed By: #### F ERR, FETIBC #### [facility] [address] [address] [address] Michele Obrien Chloride [Moles/Vol] 106 mmol/L Normal 98-107 [facility] Comment on above: Performed By: #### F ERR, FETIBC #### [facility] [address] [address] [address] Michele Obrien CO2 [Moles/Vol] 30.8 mmol/L Normal 21.0-32.0 [facility] Comment on above: Performed By: #### F ERR, FETIBC #### [facility] [address] [address] [address] Michele Obrien Creatinine [Mass/Vol] 0.68 mg/dL Normal 0.55-1.02 [facility] Comment on above: Performed By: #### F ERR, FETIBC #### [facility] [address] [place] [address] Dr. Michele Obrien EGFR-AF CHILEAN >60 Normal >=60 [facility] Comment on above: Performed By: #### F ERR, FETIBC #### [facility] [address] [place] [address] Dr. Michele Obrien EGFR-NON AF CHILEAN >60 Normal >=60 [facility] Comment on above: Performed By: #### F ERR, FETIBC #### [facility] [address] [place] [address] Dr. Michele Obrien Globulin (S) [Mass/Vol] 2.8 g/dL Normal [facility] Comment on above: Performed By: #### F ERR, FETIBC #### [facility] [address] [address] [address] Michele Obrien Glucose [Mass/Vol] 77 mg/dL Normal 74-106 [facility] Comment on above: Performed By: #### F ERR, FETIBC #### [facility] [address] [place] [address] Dr. Michele Obrien Potassium [Moles/Vol] 3.8 mmol/L Normal 3.5-5.1 [facility] Comment on above: Performed By: #### F ERR, FETIBC #### [facility] [address] [place] [address] Dr. Michele Obrien Protein [Mass/Vol] 6.3 g/dL Critically low 6.4-8.2 [facility] Comment on above: Performed By: #### F ERR, FETIBC #### [facility] [address] [place] [address] Dr. Michele Obrien Sodium [Moles/Vol] 143 mmol/L Normal 136-145 [facility] Comment on above: Performed By: #### F ERR, FETIBC #### [facility] [address] [place] [address] Dr. Michele Obrien Urea nitrogen [Mass/Vol] 10.0 mg/dL Normal 7.0-18.0 [facility] Comment on above: Performed By: #### F ERR, FETIBC #### [facility] [address] [place] [address] Dr. Michele Obrien Urea nitrogen/Creatinine [Mass ratio] 14.7 mg/mg Normal [facility] Comment on above: Performed By: #### F ERR, FETIBC #### [facility] [address] [place] [address] Dr. Michele Obrien TSHon 08-20-2022 TSH 4.302 uIU/mL Critically high 0.358-3.740 [facility] Comment on above: Performed By: #### F ERR, FETIBC #### [facility] [address] [place] [address] Dr. Michele Obrien VIT B12 AND FOLATEon 023 Cobalamin (Vitamin B12) [Mass/Vol] 433.0 pg/mL Normal 193.0-986.0 [facility] Comment on above: Performed By: #### B 12FOL, VITAD #### [facility] [address] [place] [address] Dr. Michele Obrien FOLATE 18.00 ng/mL Normal 8.60-58.90 [facility] Comment on above: Performed By: #### B 12FOL, VITAD #### [facility] [address] [address] [address] Michele Obrien VITAMIN D 25 OHon 08-20-2022 VIT D 25-OH 33.4 ng/mL Normal [facility] Comment on above: Performed By: #### B 12FOL, VITAD #### [facility] [address] [address] [address] Michele Obrien VIT D RANGES SEE BELOW Normal [facility] Comment on above: Result Comment: <20 ng/mL Vit D deficient 20 - <30 ng/mL Vit D insufficient 30 - 100 ng/mL Vit D sufficient >100 ng/mL Potential Toxicity Performed By: #### B 12FOL, VITAD #### [facility] [address] [address] [address] Michele Obrien Vital Signs Date Time Vital Sign Value Performing Clinician Facility 09-22-2023 09:42-0500 Body mass index (BMI) [Ratio] 44.85 kg/m2 Héctor Aguilar MD Work Phone: [facility] 09-22-2023 09:42-0500 Body weight 141.79 kg Héctor Aguilar MD Work Phone: [facility] 09-22-2023 09:42-0500 Diastolic blood pressure 74 mm[Hg] Héctor Aguilar MD Work Phone: [facility] 09-22-2023 09:42-0500 Heart rate 82 /min Héctor Aguilar MD Work Phone: [facility] 09-22-2023 09:42-0500 Systolic blood pressure 123 mm[Hg] Héctor Aguilar MD Work Phone: [facility] 09-15-2023 11:30-0500 Body mass index (BMI) [Ratio] 43.52 kg/m2 Kassandra ALBERTO Work Phone: [facility] 09-15-2023 11:30-0500 Body weight 141.52 kg Kassandra ALBERTO Work Phone: [facility] 09-15-2023 11:30-0500 Diastolic blood pressure 80 mm[Hg] Kassandra ALBERTO Work Phone: [facility] 09-15-2023 11:30-0500 Systolic blood pressure 130 mm[Hg] Kassandra ALBERTO Work Phone: [facility] 05-19-2023 15:30-0400 Body weight 128.05 kg Denys Barriosormack Other [facility] Other 05-19-2023 15:30-0400 Diastolic blood pressure 86 mm[Hg] Denys Selfack Other [facility] Other 05-19-2023 15:30-0400 Systolic blood pressure 127 mm[Hg] Denys Selfack Other [facility] Other 03-15-2023 10:48-0400 Diastolic blood pressure 80 mm[Hg] [employer] Wilber Shammo Work Phone: [facility] 03-15-2023 10:48-0400 Heart rate 63 /min [employer] Wilber Shammo Work Phone: [facility] 03-15-2023 10:48-0400 Respiratory rate 16 /min [employer] Wilber Shammo Work Phone: [facility] 03-15-2023 10:48-0400 SaO2% (BldA) [Mass fraction] 99 % [employer] Wilber Shammo Work Phone: [facility] 03-15-2023 10:48-0400 Systolic blood pressure 126 mm[Hg] [employer] Wilber Shammo Work Phone: [facility] 03-15-2023 08:43-0400 Body height 180.34 cm [employer] Wilber Shammo Work Phone: [facility] 03-15-2023 08:43-0400 Body temperature 98.2 [degF] [employer] Wilber Shammo Work Phone: [facility] 03-15-2023 08:43-0400 Body weight 129.27 kg [employer] Wilber More Work Phone: [facility] 01-17-2023 10:00-0400 Body weight 127.01 kg Denys Landa Other [email or web address] Other 01-17-2023 10:00-0400 Diastolic blood pressure 85 mm[Hg] Denys Landa Other [facility] Other 01-17-2023 10:00-0400 Systolic blood pressure 125 mm[Hg] Denys Landa Other [email or web address] Other Encounters Encounter Date Encounter Type Care Provider Facility Start: 11-30-2023 End: 11-30-2023 ambulatory KASSANDRA LINARES Not Available Start: 11-15-2023 End: 11-15-2023 ambulatory ADRIAN PARIS Not Available Start: 11-02-2023 End: 11-02-2023 ambulatory HÉCTOR AGUILAR [facility] Start: 11-02-2023 End: 11-02-2023 Office outpatient visit 15 minutes Fred Chavez MD Work Phone: [facility] Comment on above: Essential hypertensi on affecting in second trimester (Primary Dx) Start: 10-31-2023 End: 10-31-2023 ambulatory KASSANDRA LINARES Not Available Start: 10-18-2023 End: 10-19-2023 ambulatory ADRIAN R PARIS [facility] Start: 10-18-2023 Documentation procedure Fred Chavez MD Work Phone: [facility] Start: 10-13-2023 End: 10-13-2023 ambulatory ADRIAN PARIS Not Available Start: 09-22-2023 End: 09-23-2023 Orders Only Rossy Carrington RN [facility] Comment on above: Pre-existing essenti al hypertension during in second trimester (Primary Dx); Advanced maternal age in multigravida, second trimester; Hypothyroid in , antepartum Start: 09-22-2023 End: 09-22-2023 Office consultation new/estab patient 60 min Héctor Aguilar MD Work Phone: 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 Start: 08-19-2023 Telephone encounter J[facility]e [facility] [place] Start: 08-18-2023 End: 08-18-2023 ambulatory ADRIAN MIGUEL Not Available Start: 08-03-2023 ambulatory WILBER BONILLAMO Facility:[facility] Start: 07-21-2023 End: 07-21-2023 ambulatory KASSANDRA LINARES Not Available Start: 06-13-2023 End: 06-13-2023 ambulatory ADRIAN MIGUEL Not Available Start: 05-19-2023 End: 05-19-2023 ambulatory Denys Landa Other [email or web address] Other Start: 05-19-2023 Office outpatient vi sit 15 minutes Denys Landa [facility] Start: 03-15-2023 End: 03-15-2023 ambulatory Deyns Landa Facility:[facility] Start: 03-15-2023 End: 03-15-2023 Admission to [facility] day [facility] Wilber More Work Phone: [facility] Work Phone: Start: 03-15-2023 End: 03-15-2023 ambulatory [employer] Wilber T Shammo Work Phone: [facility] Work Phone: Start: 01-26-2023 End: 01-27-2023 ambulatory WILBER SHAMMO Facility:[facility] Start: 01-26-2023 End: 01-27-2023 ambulatory Alyson Chiu Facility:[facility] Start: 01-26-2023 End: 01-26-2023 Lab Drop off Alyson Chiu [facility] Start: 01-26-2023 End: 01-26-2023 Patient encounter procedure Alyson Chiu [facility] Start: 01-20-2023 ambulatory WILBER SHAMMO Facility:[facility] Start: 01-17-2023 End: 01-17-2023 ambulatory Denys Landa Other [email or web address] Other Start: 01-17-2023 Office outpatient ne w 45 minutes Denys Landa [facility] Start: 12-28-2022 End: 12-28-2022 ambulatory LUKE BOWENS . Facility: Start: 10-16-2022 End: 10-17-2022 ambulatory WILBER SHAMMO Facility:[facility] Start: 08-25-2022 Encounter for genera l adult medical examination without abnormal findings WILBER SHAMMO [facility] Start: 08-20-2022 End: 08-21-2022 ambulatory WILBER SHAMMO Facility:H1 Start: 08-20-2022 End: 08-21-2022 Encounter for general adult medical examination without abnormal findings WILBER SHAMMO Facility:H1 Procedures Date Procedure Procedure Detail Performing Clinician Start: 09-15-2023 Urnls dip stick/tablet rgnt non-auto w/o micrscp Kassandra ALBERTO Work Phone: Start: 06-08-2023 FREE CELL DNA (NON-[facility]) Not In System Ref Prov Start: 03-15-2023 Esophagogastroduodenoscopy [employer]-BC Wilber More Work Phone: Start: 08-01-2016 Appendectomy Alyson Chiu Start: 08-01-2016 Gastric sleeve Alyson Chiu Start: 08-01-2005 Cholecystectomy Alyson Chiu Arthroplasty of knee Alyson chamberlain Comment on above: Meniscus repair section Alyson Chiu Comment on above: x2 Plan of Treatment Date Care Activity Detail Author Start: 09-22-2024 Adult BMI Screening Adult BMI Screen ing [facility] Start: 09-22-2024 Tobacco Screening Tobacco Screening [facility] Start: 09-22-2024 End: 09-22-2024 US MFM with or without consult US MFM with or without consult Imaging Routine Pre-existing essential hypertension during in second trimester Advanced maternal age in multigravida, second trimester Hypothyroid in , antepartum Expected: 09/22/2024 (Approximate), Expires: 09/22/2024 [facility] Work Phone: Comment on above: Expected: 09/22/2024 (Approximate), Expires: 09/22/2024 Start: 04-01-2024 Influenza vaccination Influenza Vacc ine [facility] Start: 11-12-2023 Adult BMI Screening Adult BMI Screen ing [facility] Start: 11-02-2023 End: 11-02-2023 Telemedicine consultation with patient 11/02/2023 11:30 AM EDT Telemedicine Maternal- Medicine at [facility] [address] [place] [phone] Fred Chavez MD [address] [place], [place] [id number] Héctor Aguilar MD [facility]GDIGN[facility] GILBERTFrancisco, [address] [place] [address] Maternal- Medicine at [facility] Start: 10-18-2023 End: 10-18-2023 Telemedicine consultation with patient 10/18/2023 1:30 PM EDT Telemedicine Maternal- Medicine at [facility] [address] [place] [address] Fred Chavez MD [address] [place] [address] Maternal- Medicine at [facility] Start: 10-18-2023 End: 10-18-2023 Patient encounter procedure 10/18/2023 12:[address] [facility] [address] [place] [address] [facility] Start: 10-13-2023 End: 10-13-2023 Patient encounter procedure 10/13/2023 10:50 AM EDT Routine [facility] [address] [place] [phone] Adrian Miguel, [address] [place] [address] [facility] Start: 09-15-2023 End: 09-15-2024 CBC panel - Blood by Automated count CBC Lab Routine Diabetes mellitus screening Expected: 09/15/2023 (Approximate), Expires: 09/15/2024 [facility] Work Phone: Comment on above: Expected: 09/15/2023 (Approximate), Expires: 09/15/2024 Start: 09-15-2023 End: 09-15-2024 Measurement of glucose 1 hour after glucose challenge for glucose tolerance test Glucose tolerance, 1 hour Lab Routine Diabetes mellitus screening Expected: 09/15/2023 (Approximate), Expires: 09/15/2024 [facility] Comment on above: Expected: 09/15/2023 (Approximate), Expires: 09/15/2024 Start: 09-15-2023 End: 09-15-2024 Thyrotropin [Units/volume] in Serum or Plasma TSH Lab Routine Hypothyroidism, unspecified type (CMS/HCC) Expected: 09/15/2023 (Approximate), Expires: 09/15/2024 [facility] Comment on above: Expected: 09/15/2023 (Approximate), Expires: 09/15/2024 Start: 09-14-2023 End: 09-14-2023 Patient encounter procedure [facility] Start: 04-01-2023 Influenza vaccination Influenza Vacc ine [facility] Start: 03-15-2023 [facility] Start: 11-02-2007 Screening for malign ant neoplasm of cervix Pap Smear [facility] Start: 2005 DTaP,Tdap and Td Vaccines (1 - Tdap) DTaP,Tdap and Td Vaccines (1 - Tdap) [facility] Start: 2004 Adult BMI Follow Up Plan Adult BMI Follow Up Plan [facility] Start: 1998 Depression Screening Depression Scre ening [facility] Start: 1998 Tobacco Screening Tobacco Screening [facility] Hemoglobin A1c/Hemoglobin.total in Blood Hemoglobin A1c Lab Routine Diabetes mellitus screening Ordered: 09/15/2023 [facility] Comment on above: Ordered: 09/15/2023 Patient Education Hiatal hernia Diverticulosis [facility] Work Phone: Immunizations Immunization Date Immunization Notes Care Provider Alice calhoun 06-01-2022 influenza virus vaccine, unspecified formulation Alyson Chiu [facility] Payers Date Payer Category Payer Self-pay 2022 [employer] ( and others) [id number] 2022 [employer] ( and others) [id number] 2022 [facility] ( and others) [id number] 1986 Unknown [id number] [id number]3 1986 Unknown [id number] 2.16.840.1.434244.3.579.2.593 1986 Unknown [id number] 2.16.840.1.791182.3.579.2.593 1986 Unknown [id number] 2.16.840.1.246805.3.579.2.727 1986 Unknown [id number] 2.16.840.1.930199.3.579.2.727 1986 Unknown [id number] 2.16.840.1.100068.3.579.2.727 1986 Unknown [id number] 2.16.840.1.485267.3.579.2.1286 1986 Unknown [id number] 2.16.840.1.357944.3.579.2.1286 1986 Unknown [id number] 2.16.840.1.808070.3.579.2.1286 1986 Unknown [id number] 2.16.840.1.240279.3.579.2.1286 1986 Unknown [id number] 2.16.840.1.375441.3.579.2.1259 1986 Unknown [id number] 2.16.840.1.551448.3.579.2.1259 1986 Unknown [id number] 2.16.840.1.453226.3.579.2.1259 1986 Unknown [id number] 2.16.840.1.621521.3.579.2.1259 1986 Unknown [id number] 2.16.840.1.311200.3.579.2.1259 1986 Unknown [id number] 2.16.840.1.697045.3.579.2.1259 1986 Unknown [id number] 2.16.840.1.882396.3.579.2.1259 1986 Unknown [id number] 2.16.840.1.966080.3.579.2.1259 1959 [employer] ( and others) [id number] Unknown [id number] 2.16.840.1.244710.3.579.2.531 Social History Date Type Detail Facility Start: 08-24-2023 End: 09-22-2023 Sex Assigned At [facility] Start: 01-26-2023 Tobacco smoking status Ex-smoker (finding) [facility] Start: 03-15-2023 Tobacco smoking status NHIS Smoker (finding) [facility] Start: 1985 Sex Assigned At Female [facility] Tobacco smoking stat us MTIS Tobacco smoking consumption unknown [facility] Start: 1985 Sex Assigned At Not on file [facility] Start: 01-03-2023 End: 08-24-2023 Tobacco smoking status [facility] Never smoked tobacco [facility] Start: 01-03-2023 End: 08-24-2023 Tobacco use and exposure Smokeless tobacco non-user [facility] Start: 08-24-2023 End: 09-22-2023 Alcohol intake Ex-drinker (finding) [facility] Start: 08-24-2023 End: 09-22-2023 History of Social function [facility] Start: 04-11-2023 [facility] How often to you hav [...] 01-26-2023 Functional Status No [facility] Clinical Notes 01-17-2023 to 11-02-2023 Héctor [...] Depression Hypertension Hypothyroidism Kidney stones Migraines Seizure ([facility]) REVIEW OF SYSTEMS: Head and Neck: Negative [...] Visit via Real-time Synchronous Audiovisual Provider Location: [facility] MATERNAL- MEDICINE AT [address] [address] Patient Location: Patient's home Patient Location After School Program Director: None Video Visit Consent Statement: I discussed [...] that there are some limitations compared to smoj-gf-nyoe evaluations. We elected to proceed. documented in this encounter [facility] 10-18-2023 History of Presen t illness [...] telehealth rescheduled visit. Fred Chavez MD Professor, [facility] (we called the patient ourselves and were not able to successfully connect with her) documented in this encounter [facility] [employer] [facility] 09-22-2023 History of Presen t illness Narrative Headache/epigastric pain/blurry vision/swelling? No Cramping/contractions? No Abnormal vaginal discharge? No Spotting/vaginal bleeding? No Loss of fluid like your water may have broken? No Cats in the home? No Do you change the litter box? N/A Flu vaccine? No Genetic testing done this here or other office? Yes Have you been seen here at [facility] in a previous ? No Recent ER visits or hospitalizations? No Bring blood sugar log or meter with you today? (Please bring them with you for every visit at [facility]) N/A Traveled outside the country [...] and the other consultants, we search on Myze and all the available care everywhere epic I did review all the imaging studies of the patient available on EMR, ordered by the primary care physician and the other mining consultant HABITS: Patient activity no restrictions, diet [...] for completion of targeted anatomy at our [facility] site. 5. 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 Patient does have ultrasound office visit scheduled with us Thank you for allowing me to participate in Lisa Allison . If there any questions please do not hesitate to contact us. Sincerely, HÉCTOR AGUILAR MD documented in this encounter [facility] 09-15-2023 History of Presen t illness Narrative [...] hour glucose order to have done at [facility]. Follow Up: Patient is to return [...] of: REMY Valdes documented in this encounter [facility] 08-19-2023 Miscellaneous Notes Formattin g of this note might be different from the original. LEFT A MESSAGE TO SCHEDULE USN AND CONSULT. 08/19/2023 104 documented in this encounter [facility] [employer] 08-19-2023 Telephone encount er Note LEFT A MESSAGE TO SCHEDULE USN AND CONSULT. 08/19/2023 104 [facility] Evaluation note Encounter Date Diagnosis Assessment [...] start metamucile and probiotics RTO 3 months [email or web address] Other 08-15-2023 [facility] Discharge instructions Patient Education 01/26/2023 [...] include: ?8 oz (237 mL) of milk, mgopqdz-gucytciftkzl-quzii milk, and calcium- fortifiedfruit juice. Calcium-fortified means [...] ?Spinach (cooked), rhubarb, beets, sweet potatoes, and Ukrainian chard. ?Peanuts. ?Potato chips, british fries, and baked potatoes with skin on. ?Nuts and nut products. ?Chocolate. If you regularly take a diuretic medicine, make sure to eat at least 1 or 2 servings of fruits or vegetables that are high in potassium each day. These include: ?Avocado. ?Banana. ?[place], prune, carrot, or tomato juice. ?Baked potato. [...] magnesium, fish oil, or vitamin B6. Take ujwk-fiy-inpcfyt and prescription medicines only as told by [...] Casseroles. Pizza. Lasagna. Frozen meals. Potato chips. Brazilian fries. The items listed above may not [...] provider. Document Revised: 03/29/2022 Document Reviewed: 03/29/2022 [employer] Patient Education 2022 [employer] Follow Up Care 12/28/2022 12:57:40 With:Aram RUSSELL, Alyson Burdick URAjith, URO Address: When:Within 6 Month(s) Comments:marc/ DEYA & YAMILETH [facility] 06-19-2023 Evaluation note* Encounter Date Diagnosis Assessment Notes Treatment Notes Treatment Clinical Notes Dec, Iron deficiency anemia (ICD-10 - D50.9) Will proceed with EGD Will request recent lab work done at [facility]. Dec, GERD (gastroesophageal reflux disease) (ICD-10 - K21.9) Patient to continue on Omeprazole 40mg Dec, Diarrhea (ICD-10 - R19.7) Will proceed with Colonoscopy. [email or web address] Other Evaluation + Plan note Future Appointments Appointment Date:08/03/2023 10:00:00 AM Scheduled Provider:Alyson Chiu MD Location:[facility] Appointment Type:URO Office Visit [facility] evaluation + Plan note Future Appointments Appointment Date:08/03/2023 10:00:00 AM Scheduled Provider:Alyson Chiu MD Location:[facility] Appointment Type:URO Office Visit Diagnostic Tests Pending * Calculi Analysis [facility] Diagnosis Onset Date Resolution Status Iron deficiency anemia [facility] Work Phone: Evaluation note* Diagnosis Second trimester state, incidental Diabetes mellitus screening Screening for diabetes mellitus 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) Hypothyroidism, unspecified type (CMS/HCC) documented in this encounter [facility] HealthcareEvaluation note* Diagnosis Essential hypertension affecting in second trimester- Primary [facility] Diagnosis Pre-existing essential hypertension during in second trimester- Primary Advanced maternal age in multigravida, second trimester Hypothyroid in , antepartum [facility] Diagnosis Essential hypertension affecting in second trimester- Primary [facility] N[facility]ative - Reported* Type [...] left knee meniscus Hospitalization History see above [email or web address] Other Hospital course Narrative No data available for this section [facility] Discharge instructions No data available for this section [facility] Additional Instructions DISCHARGE INSTRUCTIONS FOR [...] if you have any problems. -Office number [phone] Work Phone: InstructionsNot on filedocumented in this encounter [facility] SystemInstructionsNot on filedocumented in this encounter [facility] SystemInstructionsNot on filedocumented in this encounter [facility]Not on filedocumented in this encounter [facility] SystemInstructionsNot on filedocumented in this encounter [facility] SystemInstructionsNot on filedocumented in this encounter [facility] note No data available for this section [facility] [place] Summary Purpose Family History No Family History [...] consult Héctor Aguilar MD [address] [facility] [address] [place] [address] [facility] Maternal Med [address] [place] [address] Referral ID Status Reason Start Date Expiration Date V isits Requested Visits Authorized [id number] Pending Review 09/22/2023 09/21/2024 1 1 Additional Source Comments INFORMATION SOURCE (unrecogn ized section and content) DATE CREATED AUTHOR 01/07/[address] [facility] DATE CREATED AUTHOR AUTHOR'S ORGANIZ ATION 03/17/2023 [facility] DATE CREATED AUTHOR AUTHOR'S ORGANIZ ATION 08/05/2023 [facility] DATE CREATED AUTHOR AUTHOR'S ORGANIZ ATION 10/19/2023 [facility] DATE CREATED AUTHOR AUTHOR'S ORGANIZ ATION 11/03/2023 [facility] DATE CREATED AUTHOR AUTHOR'S ORGANJEREMIAS ATION 12/01/2023 [facility] Specialists EPIC REASON FOR VISIT (unrecogniz ed section and content) Reason Comments Routine Visit Reason Comments Advanced Maternal Age Chronic Hypertension Hypothyroidism Patient Care team informatio n (unrecognized section and content) Team Status: Active Member Role Status Dates Wilber More , [facility] Primary Care Provider Active Team Status: Inactive Member Role Status Dates Denys Landa MD Attending Provider Active Wilber More [facility] Primary Care Provider Active 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 [facility] [employer] provides no warranty or guarantee of the accuracy or completeness of information in this document.
[2023-12-06 09:04] VITALS: BP 121/64; PULSE 97
== END 2023-12-06 09:40 | disposition home or self-care (01) ==
LOC: FBCO 07:13 → FBC 08:59
PROVIDERS: PCP Nurse Practitioner Primary Care; Visit Provider Obstetrics & Gynecology
DX: O99.283 Endocrine, nutritional and metabolic diseases complicating pregnancy, third trimester (principal)
CPT/HCPCS: 59025

== ENCOUNTER 2023-12-08 20:12 | Outpatient (REF) | payer OTHER, SELFPAY ==
--- OUTSIDE RECORDS SUMMARY | 2023-12-08 20:19 | XMS_ITS | CCD ---
Author Organization [facility] Care Team Providers Care Housekeeping Staff Name Role Phone KWAN ., LUKE Admitting [...] SHAMMO, WILBER Consulting Unavailable Denys Landa Unavailable [phone] SHAMMO, WILBER TOMASA Primary Care Physician MD Denys Landa Attending Provider [phone] Shammo, [facility] Wilber T Primary Care Provider [phone] Denys Landa Attending Unavailabl e Denys Landa [...] sources) Penicillin Drug Allergy 3 Unknown [facility] (15 sources) Penicillins; Translations: [penicillins] Allergy to substance 3 Anaphylaxis (disorder), Anaphylaxis, Unknown [facility] (7 sources) topiramate; Translations: [TOPIRAMATE] Drug Allergy 4 [facility] [employer] [facility] (2 sources) Penicillin G Drug Allergy 3 Unknown [facility] (2 sources) Topiramate Allergy to substance 3 [facility] Medications Current Medications Medication Drug [...] Start: 01-26-2023 take 1 capsule by mo [facility] once daily levothyroxine 137 mcg (0.137 [...] 09/09/2022 Active take 1 capsule by mo [facility] once daily Metoprolol Succinate 100 [...] UA Negative Negative - 4(70) +++ mg/dL [facility] Blood, UA Negative Negative - 50 Maikol/mcL [facility] Clarity, UA Clear [facility] Color, UA Yellow [facility] Glucose, UA Negative Negative - 2000(110) ++++ mg/dL [facility] Interpretation and review of laboratory results Abnormal [facility] Ketones, UA Negative Negative - 160(16) ++++ mg/dL [facility] Leukocytes, UA Negative Negative - 500+++ Endy/mcL [facility] Nitrite, UA Negative Negative - Positive [facility] pH, UA 6.0 5 - 9 [facility] Protein, UA Trace Negative - 2000(20) ++++ mg/dL [facility] Spec Grav, UA 1.025 1 - 1.03 [facility] Urobilinogen, UA 0.2 0.2 - 12 mg/dL [facility] Reminderson 08-05-2023 Reminders - [...] EST Subject: RE: Reminder Message No Normal [facility] Free Cell DNAon 2022 [facility] HCG ( test) IA.rapi d Ql (U)Ordered By: Denys Landa on 03-15-2023 HCG ( test) Ql (U) Negative [facility] HCG,Urineon 03-15-2023 Beta HCG ( test) Ql (U) Negative Normal [facility] Comment on above: Result Comment: PERF ORMED BY: [place] [address] PATHOLOGIST CLINICAL DOCUMENTATION CLERK SALVADOR LEHMAN M.D. Performed By: #### U HCG #### [address] Arturo 03-15-2023 L Specimen: [id number] Received: 03/15/23 Status: KENISHA Tavon Num: [id number] Spec Type: Surgical Subm Dr: Denys Landa MD Tissues: A Duodenum - Biopsy (DUODENAL BX) B STOMACH FOR HP (ANTRAL BX HP) C Esophagus Biopsy (ESOPHAGUS BX) Procedures: HE/6, Gross/Micro L4/3, H PYLORI Age/ Patient Sex Location Account Attending Physician Lisa Allison 37/F [id number] Denys Landa MD SPEC NUM: [id number] RECD: 03/15/23 STATUS: KENISHA MONTES DE OCA NUM: [id number] RODERICK: 03/15/23- [facility] DR: Denys Landa MD ENTERED: 03/15/23-[address] [facility] [address]: CESAR TYPE: Surgical DEPT: S ORDERED: [...] eosinophilic exocytosis or eosinophilic esophagitis identified Specimen: [id number] Received: 03/15/23 Status: KENISHA Montes De Oca Num: [id number] Spec Type: Surgical Subm Dr: Denys Landa MD Tissues: A Duodenum - Biopsy (DUODENAL BX) B STOMACH FOR HP (ANTRAL BX HP) C Esophagus Biopsy (ESOPHAGUS BX) Procedures: HE/6, Gross/Micro L4/3, H PYLORI Patient: Lisa Allison [id number] (Continued) Specimen: [id number] Received: 03/15/23 (Continued) Signed (signature on file) Bharti Obrien MD 03/16/23 1658 Specimen: [id number] Received: 03/15/23 Status: KENISHA Montes De Oca Num: [id number] Spec Type: Surgical Subm Dr: Denys Landa MD Tissues: A Duodenum - Biopsy (DUODENAL BX) B STOMACH FOR HP (ANTRAL BX HP) C Esophagus Biopsy (ESOPHAGUS BX) Procedures: /6, Gross/Micro L4/3, H PYLORI Patient: EstefanyLisa hwang Roberta [id number] (Continued) Specimen: [id number] Received: 03/15/23 (Continued) Clinical Information LARISSA, rule [...] microscopic examination confirms the diagnosis. CPT Codes 25163i7, 79593 -- (more content not included)... Normal [facility] Calculus Analysison 02-06-20 23 Calcium oxalate dihydrate Infrared spectroscopy (Stone) [Mass fraction] 30 % Invalid Interpretation Code [facility] Comment on above: Performed By: #### 1 [id number] #### [facility] [address] [place] [address] Calcium oxalate monohydrate (Stone) [Mass fraction] 70 % Invalid Interpretation Code [facility] Comment on above: Performed By: #### 1 [id number] #### [facility] [address] [place] [address] Color (Stone) Brown Invalid Interpretation Code [facility] Comment on above: Performed By: #### 1 [id number] #### [facility] [address] [place] [address] Composition Comment Invalid Interpretation Code [facility] Comment on above: Result Comment: Perc entage (Represents the % composition) Performed By: #### 1 [id number] #### [facility] [address] [place] [address] Disclaimer: Comment Invalid Interpretation Code [facility] Comment on above: Result Comment: This test was developed and its performance characteristics determined by [facility]. It has not been cleared or approved by the Food and Drug Administration. Performed at: [facility] [address], [place] [id number] PhD Roya Prajapati Performed By: #### 1 [id number] #### [facility] [address] [place] [address] Laboratory comment Asa (Report) Comment Invalid Interpretation Code [facility] Comment on above: Result Comment: Brad tafoya questions regarding Calculi Analysis contact [facility] at: [phone]. Performed By: #### 1 [id number] #### [facility] [address] [place] [address] Please Note: Comment Invalid Interpretation Code [facility] Comment on above: Result Comment: Calc dory report will follow via computer, mail or animal control licensing worker delivery. Performed By: #### 1 [id number] #### [facility] [address] [place] [address] Size (Stone) [Entitic vol] 3x3 Invalid Interpretation Code [facility] Comment on above: Result Comment: Mult iple pieces received. Dimensions of the largest piece reported. Performed By: #### 1 [id number] #### [facility] [address] [place] [address] Specimen source subject Nom Comment Invalid Interpretation Code [facility] Comment on above: Result Comment: Not provided Performed By: #### 1 [id number] #### [facility] [address] [place] [address] Stone Photo Comment Invalid Interpretation Code [facility] Comment on above: Result Comment: Phot ograph will follow under a separate cover Performed By: #### 1 [id number] #### [facility] [address] [place] [address] Weight (Stone) 8 mg Invalid Interpretation Code [facility] Comment on above: Performed By: #### 1 [id number] #### [facility] [address] [place] [address] [employer]son 01-26-2023 Forms [id number] #1.00CD:127 Normal [facility] Patient Educationon 01-27-20 23 Patient Education [...] Spinach (cooked), rhubarb, beets, sweet potatoes, and St Helenian chard. ? Peanuts. ? Potato chips, vincentian fries, and baked potatoes with skin on. ? Nuts and nut products. ? Chocolate. ? If you regularly take a diuretic medicine, make sure to eat at least 1 or 2 servings of fruits or vegetables that are high in potassium each day. These include: ? Avocado. ? Banana. ? [place], prune, carrot, or tomato juice. ? Baked [...] fish oil, or vitamin B6. ? Take qyyq-ytp-zmiyega and prescription medicines only as told by your health care provider. These include supplements. What foods should I limit? Limit your in (more content not included)... Normal [facility] RAD - MISCon 01-26-2023 RAD - MISC [id number] #1.00CD:127 [facility] Screenson 01-26-2023 Screens [id number] #1.00CD:127 [facility] Urology Office/Clinic Noteon 01-26-2023 Urology Office/Clinic Note Chief Complaint kidney stones HPI Staff Pt is a new pt, never before seen in our office. Here today due to kidney stones. [facility] 12/27/22 due to Rt flank pain [...] for this patient from Dr. Herron @ [facility]. I have reviewed and verified the [...] Pt had gastric bypass in 2016 in [place]. Has had diarrhea since she had her [...] Nitrite Uri (more content not included)... Normal [facility] Comment on above: Result Comment: Elec tronically Signed By: Alyson Chiu MD\.br\Date and Time Signed: 01/26/23 21:46 EDT\.br\Electronically Co-Signed By: Ewa Valentin\.br\Date and Time Co-Signed: 01/26/23 10:54 EDT ED Note-Physicianon 01-24-20 ED Note-Physician [id number]#1.00CD:127 Normal [facility] Lab Reportson 01-23-2023 Lab Reports [id number]#1.00CD:127 Normal [facility] RAD - CT Reporton 01-23-2023 RAD - CT Report [id number]# 1.00CD:127 Normal [facility] CBC AUTO DIFFon 12-28-2022 BASO # 0.0 103/ul Normal 0.0-0.1 [facility] Comment on above: Performed By: #### F ERR, FETIBC #### [facility] [address] [place] [address] Dr. Michele Obrien Basophils/100 WBC (Bld) 0.5 % Normal 0.2-2.0 [facility] Comment on above: Performed By: #### F ERR, FETIBC #### [facility] [address] [address] [address] Michele Obrien EO # 0.2 103/ul Normal 0.0-0.7 [facility] Comment on above: Performed By: #### F ERR, FETIBC #### [facility] [address] [address] [address] Michele Obrien Eosinophils/100 WBC (Bld) 2.6 % Normal 0.9-7.0 [facility] Comment on above: Performed By: #### F ERR, FETIBC #### [facility] [address] [place] [address] Dr. Michele Obrien Erythrocyte distribution width (RBC) [Ratio] 19.1 % Critically high 11.0-15.0 [facility] Comment on above: Performed By: #### F ERR, FETIBC #### [facility] [address] [place] [address] Dr. Michele Obrien Hematocrit (Bld) [Volume fraction] 37.6 % Normal 36.0-48.0 [facility] Comment on above: Performed By: #### F ERR, FETIBC #### [facility] [address] [place] [address] Dr. Michele Obrien Hemoglobin (Bld) [Mass/Vol] 11.9 g/dL Critically low 12.0-16.0 [facility] Comment on above: Performed By: #### F ERR, FETIBC #### [facility] [address] [place] [address] Dr. Michele Obrien IG # 0.03 10e3/ul Normal 0.00-0.03 [facility] Comment on above: Performed By: #### F ERR, FETIBC #### [facility] [address] [place] [address] Dr. Michele Obrien IG % 0.3 % Normal 0.0-0.5 [facility] Comment on above: Performed By: #### F ERR, FETIBC #### [facility] [address] [place] [address] Dr. Michele Obrien LYMPH # 1.6 103/ul Normal 1.2-3.8 [facility] Comment on above: Performed By: #### F ERR, FETIBC #### [facility] [address] [place] [address] Dr. Michele Obrien Lymphocytes/100 WBC (Bld) 18.4 % Critically low 20.5-60.0 [facility] Comment on above: Performed By: #### F ERR, FETIBC #### [facility] [address] [place] [address] Dr. Michele Obrien MANUAL DIFF REQ NO Normal [facility] Comment on above: Performed By: #### F ERR, FETIBC #### [facility] [address] [place] [address] Dr. Michele Obrien MCH (RBC) [Entitic mass] 23.7 pg Critically low 26.7-34.0 [facility] Comment on above: Performed By: #### F ERR, FETIBC #### [facility] [address] [place] [address] Dr. Michele Obrien MCHC (RBC) [Mass/Vol] 31.6 g/dL Normal 29.9-35.2 [facility] Comment on above: Performed By: #### F ERR, FETIBC #### [facility] [address] [place] [address] Dr. Michele Obrien MCV (RBC) [Entitic vol] 74.9 fL Critically low 81.0-99.0 [facility] Comment on above: Performed By: #### F ERR, FETIBC #### [facility] [address] [place] [address] Dr. Michele Obrien MONO # 0.5 103/ul Normal 0.3-0.8 [facility] Comment on above: Performed By: #### F ERR, FETIBC #### [facility] [address] [place] [address] Dr. Michele Obrien Monocytes/100 WBC (Bld) 5.9 % Normal 1.7-12.0 [facility] Comment on above: Performed By: #### F ERR, FETIBC #### [facility] [address] [place] [address] Dr. Michele Obrien NEUT # 6.4 103/ul Normal 1.4-6.5 [facility] Comment on above: Performed By: #### F ERR, FETIBC #### [facility] [address] [place] [address] Dr. Michele Obrien Neutrophils/100 WBC (Bld) 72.3 % Normal 43.0-75.0 [facility] Comment on above: Performed By: #### F ERR, FETIBC #### [facility] [address] [address] [address] Michele Obrien Platelet mean volume (Bld) [Entitic vol] 10.2 fL Normal 9.5-13.5 [facility] Comment on above: Performed By: #### F ERR, FETIBC #### [facility] [address] [place], [place] [address] Dr. Michele Obrien PLT 243 103/ul Normal 150-450 [facility] Comment on above: Performed By: #### F ERR, FETIBC #### [facility] [address] [place], [place] [address] Dr. Michele Obrien RBC 5.02 106/ul Normal 4.20-5.40 [facility] Comment on above: Performed By: #### F ERR, FETIBC #### [facility] [address] [address] [address] Michele Obrien WBC 8.9 103/ul Normal 4.0-11.0 [facility] Comment on above: Performed By: #### F ERR, FETIBC #### [facility] [address] [address] ABD/PELVIS WO CONon [...] authenticated by: ALEXA Harper: 2022-12-28 02:25 Normal [facility] ER URINE PROFILEon 3 Bilirubin Ql (U) Negative Normal NEGATIVE [facility] Comment on above: Performed By: #### H IV12 #### [facility] [address] [address] [address] Michele Obrien Clarity (U) CLEAR Normal CLEAR [facility] Comment on above: Performed By: #### H IV12 #### [facility] [address] [address] [address] Michele Obrien Color (U) LT. YELLOW Normal YELLOW [facility] Comment on above: Performed By: #### H IV12 #### [facility] [address] [place] [address] Dr. Michele JACKSON A micrscopic examination will be performed if indicated. Normal [facility] Comment on above: Performed By: #### H IV12 #### [facility] [address] [address] [address] Michele Obrien Glucose Ql (U) Negative Normal NEGATIVE [facility] Comment on above: Performed By: #### H IV12 #### [facility] [address] [address] [address] Michele Obrien Hemoglobin Ql (U) MODERATE Abnormal NEGATIVE [facility] Comment on above: Performed By: #### H IV12 #### [facility] [address] [address] [address] Michele Obrien Ketones Ql (U) Negative Normal NEGATIVE [facility] Comment on above: Performed By: #### H IV12 #### [facility] [address] [address] [address] Michele Obrien LEUKOCYTES Negative Normal NEGATIVE [facility] Comment on above: Performed By: #### H IV12 #### [facility] [address] [place] [address] Dr. Michele Obrien Nitrite Ql (U) Negative Normal NEGATIVE [facility] Comment on above: Performed By: #### H IV12 #### [facility] [address] [place] [address] Dr. Michele Obrien pH (U) 5.5 [pH] Normal 5-9 [facility] Comment on above: Performed By: #### H IV12 #### [facility] [address] [place] [address] Dr. Michele Obrien SPEC GRAVITY 1.025 Normal 1.005-<=1.025 [facility] Comment on above: Performed By: #### H IV12 #### [facility] [address] [place] [address] Dr. Michele Obrien UA PROTEIN Negative Normal NEGATIVE/ TRACE [facility] Comment on above: Performed By: #### H IV12 #### [facility] [address] [place] [address] Dr. Michele Obrien UR MICRO IND INDICATED Normal [facility] Comment on above: Performed By: #### H IV12 #### [facility] [address] [place] [address] Dr. Michele Obrien Urobilinogen Qn (U) 0.2 {Ijeoma'U}/dL Normal 0.2 - 1. 0 [facility] Comment on above: Performed By: #### H IV12 #### [facility] [address] [place] [address] Dr. Michele Obrien PREG HCG QUALon 12-28-2022 , QUAL Negative Normal NEGATIVE [facility] Comment on above: Performed By: #### P REG #### [facility] [address] [place] [address] Dr. Michele Obrien PROF 14(COMP METB)on 023 Albumin [Mass/Vol] 3.4 g/dL Normal 3.4-5.0 [facility] Comment on above: Performed By: #### C MP #### [facility] [address] [place] [address] Dr. Michele Obrien Albumin/Globulin [Mass ratio] 1.1 {ratio} Normal [facility] Comment on above: Performed By: #### C MP #### [facility] [address] [place] [address] Dr. Michele Obrien ALP [Catalytic activity/Vol] 73 U/L Normal 46-116 [facility] Comment on above: Performed By: #### C MP #### [facility] [address] [address] [address] Michele Obrien ALT [Catalytic activity/Vol] 18 U/L Normal 14-59 [facility] Comment on above: Performed By: #### C MP #### [facility] [address] [address] [address] Michele Obrien Anion gap [Moles/Vol] 11.9 mmol/L Normal [facility] Comment on above: Performed By: #### C MP #### [facility] [address] [address] [address] Michele Obrien AST [Catalytic activity/Vol] 13 U/L Critically low 15-37 [facility] Comment on above: Performed By: #### C MP #### [facility] [address] [address] [address] Michele Obrien Bilirubin [Mass/Vol] 0.1 mg/dL Critically low 0.2-1.0 [facility] Comment on above: Performed By: #### C MP #### [facility] [address] [address] [address] Michele Obrien Calcium [Mass/Vol] 8.6 mg/dL Normal 8.5-10.1 [facility] Comment on above: Performed By: #### C MP #### [facility] [address] [address] [address] Michele Obrien Chloride [Moles/Vol] 105 mmol/L Normal 98-107 [facility] Comment on above: Performed By: #### C MP #### [facility] [address] [address] [address] Michele Obrien CO2 [Moles/Vol] 26.7 mmol/L Normal 21.0-32.0 [facility] Comment on above: Performed By: #### C MP #### [facility] [address] [address] [address] Michele Obrien Creatinine [Mass/Vol] 0.85 mg/dL Normal 0.55-1.02 [facility] Comment on above: Performed By: #### C MP #### [facility] [address] [address] [address] Michele Obrien EGFR-AF NIUEAN >60 Normal >=60 [facility] Comment on above: Performed By: #### C MP #### [facility] [address] [address] [address] Michele Obrien EGFR-NON AF NIUEAN >60 Normal >=60 [facility] Comment on above: Performed By: #### C MP #### [facility] [address] [address] [address] Michele Obrien Globulin (S) [Mass/Vol] 3.1 g/dL Normal [facility] Comment on above: Performed By: #### C MP #### [facility] [address] [address] [address] Michele Obrien Glucose [Mass/Vol] 123 mg/dL Critically high 74-106 [facility] Comment on above: Performed By: #### C MP #### [facility] [address] [address] [address] Michele Obrien Potassium [Moles/Vol] 3.6 mmol/L Normal 3.5-5.1 [facility] Comment on above: Performed By: #### C MP #### [facility] [address] [address] [address] Michele Obrien Protein [Mass/Vol] 6.5 g/dL Normal 6.4-8.2 [facility] Comment on above: Performed By: #### C MP #### [facility] [address] [address] [address] Michele Obrien Sodium [Moles/Vol] 140 mmol/L Normal 136-145 [facility] Comment on above: Performed By: #### C MP #### [facility] [address] [address] [address] Michele Obrien Urea nitrogen [Mass/Vol] 14.0 mg/dL Normal 7.0-18.0 [facility] Comment on above: Performed By: #### C MP #### [facility] [address] [place] [address] Dr. Michele Obrien Urea nitrogen/Creatinine [Mass ratio] 16.5 mg/mg Normal [facility] Comment on above: Performed By: #### C MP #### [facility] [address] [place] [address] Dr. Michele Obrien URINE MICROSCOPIC ONLYon BACTERIA TRACE Abnormal NONE SEEN [facility] Comment on above: Performed By: #### H IV12 #### [facility] [address] [place] [address] Dr. Michele Obrien Bacteria identified Cx Nom (U) NOT INDICATED Normal [facility] Comment on above: Performed By: #### H IV12 #### [facility] [address] [place] [address] Dr. Michele Obrien CAST NONE SEEN Normal NONE SEEN [facility] Comment on above: Performed By: #### H IV12 #### [facility] [address] [place] [address] Dr. Michele Obrien Crystals LM Nom (Urine sed) NONE SEEN Normal NONE SEEN [facility] Comment on above: Performed By: #### H IV12 #### [facility] [address] [place] [address] Dr. Michele Obrien Epithelial cells LM Ql (Urine sed) FEW Abnormal NONE SEEN /RARE [facility] Comment on above: Performed By: #### H IV12 #### [facility] [address] [place] [address] Dr. Michele Obrien MUCOUS TRACE Abnormal NONE SEEN [facility] Comment on above: Performed By: #### H IV12 #### [facility] [address] [place] [address] Dr. Michele Obrien RBC 20-50 Abnormal 0-2 [facility] Comment on above: Performed By: #### H IV12 #### [facility] [address] [place] [address] Dr. Michele Obrien WBC 0-2 Abnormal NONE SEEN [facility] Comment on above: Performed By: #### H IV12 #### [facility] [address] [place] [address] Dr. Michele Obrien HIV 1 AND 2 WITH REFLEXon HIV Screen 4th Generation wRfx Non-Reactive Normal Non Reactive [facility] Comment on above: Result Comment: HIV Negative HIV-1/HIV-2 antibodies and HIV-1 p24 antigen were NOT detected. There is no laboratory evidence of HIV infection. Performed By: #### H IV12 #### [facility] [address] [place] [address] Dr. Michele Obrien FERRITINon 10-16-2022 Ferritin [Mass/Vol] 6.0 ng/mL Critically low 6.2-137.0 [facility] Comment on above: Performed By: #### F ERR, FETIBC #### [facility] [address] [place] [address] Dr. Michele Obrien FREE T3on 10-16-2022 FREE T3 1.87 pg/mlL Critically low 2.18-3.98 [facility] Comment on above: Performed By: #### H IV12 #### [facility] [address] [place] [address] Dr. Michele Obrien HEMOGRAM AND PLATELon 2022 Hematocrit (Bld) [Volume fraction] 35.7 % Critically low 36.0-48.0 [facility] Comment on above: Performed By: #### H H #### [facility] [address] [place] [address] Dr. Michele Obrien Hemoglobin (Bld) [Mass/Vol] 10.4 g/dL Critically low 12.0-16.0 [facility] Comment on above: Performed By: #### H H #### [facility] [address] [place] [address] Dr. Michele Obrien MCH (RBC) [Entitic mass] 20.0 pg Critically low 26.7-34.0 [facility] Comment on above: Performed By: #### H H #### [facility] [address] [place] [address] Dr. Michele Obrien MCHC (RBC) [Mass/Vol] 29.1 g/dL Critically low 29.9-35.2 [facility] Comment on above: Performed By: #### H H #### [facility] [address] [address] [address] Michele Obrien MCV (RBC) [Entitic vol] 68.5 fL Critically low 81.0-99.0 [facility] Comment on above: Performed By: #### H H #### [facility] [address] [address] [address] Michele Obrien PLT 241 103/ul Normal 150-450 [facility] Comment on above: Performed By: #### H H #### [facility] [address] [place] [address] Dr. Michele Obrien RBC 5.21 106/ul Normal 4.20-5.40 [facility] Comment on above: Performed By: #### H H #### [facility] [address] [place] [address] Dr. Michele Obrien WBC 6.9 103/ul Normal 4.0-11.0 [facility] Comment on above: Performed By: #### H H #### [facility] [address] [place] [address] Dr. Michele Obrien IRON AND TIBCon 10-16-2022 % SATURATION 4.5 % Normal [facility] Comment on above: Performed By: #### F ERR, FETIBC #### [facility] [address] [place] [address] Dr. Michele Obrien Iron [Mass/Vol] 18.0 ug/dL Critically low 50.0-170.0 [facility] Comment on above: Performed By: #### F ERR, FETIBC #### [facility] [address] [place] [address] Dr. Michele Obrien TIBC DIRECT 396.0 ug/dL Normal 250.0-450.0 [facility] Comment on above: Performed By: #### F ERR, FETIBC #### [facility] [address] [place] [address] Dr. Michele Obrien TSH W/ REFLEX TO FT4on 10-16 TSH 3.577 uIU/mL Normal 0.358-3.740 [facility] Comment on above: Performed By: #### H IV12 #### [facility] [address] [place] [address] Dr. Michele Obrien VITAMIN Con 09-03-2022 Vitamin C 0.2 mg/dL Critically low 0.4-2.0 [facility] Comment on above: Result Comment: Li min C deficiency is generally defined as plasma or serum concentrations less than 0.2 mg/dL and levels between 0.2 and 0.4 mg/dL are considered low. Performed By: #### F ERR, FETIBC #### [facility] [address] [place] [address] Dr. Michele Obrien VITAMIN Aon 09-01-2022 Vitamin A 33.6 ug/dL Normal 18.9-57.3 [facility] Comment on above: Result Comment: Refe rence intervals for vitamin A determined from [facility] internal studies. Individuals with vitamin A less than 20 ug/dL are considered vitamin A deficient and those with serum concentrations less than 10 ug/dL are considered severely deficient. . This test was developed and its performance characteristics determined by [facility]. It has not been cleared or approved by the Food and Drug Administration. Performed By: #### V ITAMA #### [facility] [address] [place] [address] Dr. Michele Obrien VITAMIN Kodi 09-01-2022 Vitamin E (Alpha T) 11.9 mg/L Normal 5.9-19.4 [facility] Comment on above: Performed By: #### V ITAE #### [facility] [address] [place] [address] Dr. Michele Obrien Vitamin E (Gamma T) 1.5 mg/L Normal 0.7-4.9 [facility] Comment on above: Result Comment: Refe rence intervals for alpha and gamma-tocopherol determined from National Health and Nutrition Examination Survey, 6129-2262. Individuals with alpha-tocopherol levels less than 5.0 mg/L are considered vitamin E deficient. Performed By: #### V ITAE #### [facility] [address] [place] [address] Dr. Michele Obrien VITAMIN Garrett 08-26-2022 Vitamin K1 0.24 ng/mL Normal 0.10-2.20 [facility] Comment on above: Performed By: #### F ERR, FETIBC #### [facility] [address] [place] [address] Dr. Michele Obrien SELENIUM, PLASMAon Selenium, Serum/Plasma 110 ug/L Normal 93-198 [facility] Comment on above: Performed By: #### H IV12 #### [facility] [address] [place] [address] Dr. Michele Obrien VITAMIN B1 (THIAMINE)on 08-02 Vit. B1, Whole Blood 126.2 nmol/L Normal 66.5-200.0 [facility] Comment on above: Performed By: #### F ERR, FETIBC #### [facility] [address] [place] [address] Dr. Michele Obrien ZINC SERUM OR PLASMAon 08-23 Zinc, Plasma or Serum 69 ug/dL Normal 44-115 [facility] Comment on above: Result Comment: Dete ction Limit = 5 Performed By: #### H IV12 #### [facility] [address] [place] [address] Dr. Michele Obrien FERRITINon 08-20-2022 Ferritin [Mass/Vol] 5.0 ng/mL Critically low 6.2-137.0 [facility] Comment on above: Performed By: #### F ERR, FETIBC #### [facility] [address] [place] [address] Dr. Michele Obrien FREE T4on 08-20-2022 Free T4 [Mass/Vol] 1.01 ng/dL Normal 0.76-1.46 [facility] Comment on above: Performed By: #### H IV12 #### [facility] [address] [place] [address] Dr. Michele Obrien GLYCOHEMOGLOBIN A1Con 2022 ADA RECOMMENDATION SEE BELOW Normal [facility] Comment on above: Result Comment: ADA RECOMMENDED LIMIT 4.0 - 6.0 ADA THERAPEUTIC TARGET < 7.0 ACTION SUGGESTED > 7.0 Performed By: #### H IV12 #### [facility] [address] [address] [address] Michele Obrien Glucose [Mass/Vol] 80 mg/dL Normal [facility] Comment on above: Performed By: #### H IV12 #### [facility] [address] [place] [address] Dr. Michele Obrien HbA1c (Bld) [Mass fraction] 4.4 % Critically low 4.5-6.2 [facility] Comment on above: Performed By: #### H IV12 #### [facility] [address] [place] [address] Dr. Michele Obrien HEMOGRAM AND PLATELon 2022 Hematocrit (Bld) [Volume fraction] 29.3 % Critically low 36.0-48.0 [facility] Comment on above: Performed By: #### H IV12 #### [facility] [address] [place] [address] Dr. Michele Obrien Hemoglobin (Bld) [Mass/Vol] 9.3 g/dL Critically low 12.0-16.0 [facility] Comment on above: Performed By: #### H IV12 #### [facility] [address] [place] [address] Dr. Michele Obrien MCH (RBC) [Entitic mass] 20.1 pg Critically low 26.7-34.0 [facility] Comment on above: Performed By: #### H IV12 #### [facility] [address] [place] [address] Dr. Michele Obrien MCHC (RBC) [Mass/Vol] 31.7 g/dL Normal 29.9-35.2 [facility] Comment on above: Performed By: #### H IV12 #### [facility] [address] [address] [address] Michele Obrien MCV (RBC) [Entitic vol] 63.4 fL Critically low 81.0-99.0 [facility] Comment on above: Performed By: #### H IV12 #### [facility] [address] [place] [address] Dr. Michele Obrien PLT 213 103/ul Normal 150-450 [facility] Comment on above: Performed By: #### H IV12 #### [facility] [address] [address] [address] Michele Obrien RBC 4.62 106/ul Normal 4.20-5.40 [facility] Comment on above: Performed By: #### H IV12 #### [facility] [address] [address] [address] Michele Obrien WBC 5.8 103/ul Normal 4.0-11.0 [facility] Comment on above: Performed By: #### H IV12 #### [facility] [address] [address] [address] Michele Obrien IRON AND TIBCon 08-20-2022 % SATURATION 6.5 % Normal [facility] Comment on above: Performed By: #### F ERR, FETIBC #### [facility] [address] [address] [address] Michele Obrien Iron [Mass/Vol] 22.0 ug/dL Critically low 50.0-170.0 [facility] Comment on above: Performed By: #### F ERR, FETIBC #### [facility] [address] [address] [address] Michele Obrien TIBC DIRECT 340.0 ug/dL Normal 250.0-450.0 [facility] Comment on above: Performed By: #### F ERR, FETIBC #### [facility] [address] [address] [address] Michele Obrien LIPID PROFILEon 08-20-2022 CHOL-HDL RATIO NORM SEE BELOW Normal [facility] Comment on above: Result Comment: 3.3 - 4.4 LOW RISK 4.4 - 7.1 AVERAGE RISK 7.1 - 11.0 MODERATE RISK >11.0 HIGH RISK Performed By: #### F ERR, FETIBC #### [facility] [address] [address] [address] Michele Obrien Cholesterol [Mass/Vol] 146 mg/dL Normal <=200 [facility] Comment on above: Performed By: #### F ERR, FETIBC #### [facility] [address] [address] [address] Michele Obrien Cholesterol in HDL [Mass/Vol] 58 mg/dL Normal 40-60 [facility] Comment on above: Performed By: #### F ERR, FETIBC #### [facility] [address] [address] [address] Michele Obrien Cholesterol in LDL [Mass/Vol] 66.8 mg/dL Normal [facility] Comment on above: Performed By: #### F ERR, FETIBC #### [facility] [address] [address] [address] Michele Obrien Cholesterol.total/Ch olesterol in HDL [Mass ratio] 2.5 {ratio} Normal [facility] Comment on above: Performed By: #### F ERR, FETIBC #### [facility] [address] [address] [address] Michele Obrien HDL NORMAL > or = 60 mg/dl - LOW CARDIOVASCULAR RISK <40 mg/dl - HIGH CARDIOVASCULAR RISK Normal [facility] Comment on above: Performed By: #### F ERR, FETIBC #### [facility] [address] [address] [address] Michele Obrien LDL CALC NORMAL SEE BELOW Normal [facility] Comment on above: Result Comment: <100 mg/dl OPTIMAL 100 - 129 mg/dl NEAR OR ABOVE OPTIMAL 130 - 159 mg/dl BORDERLINE HIGH 160 - 189 mg/dl HIGH >190 mg/dl VERY HIGH Performed By: #### F ERR, FETIBC #### [facility] [address] [address] [address] Michele Obrien Triglyceride [Mass/Vol] 106 mg/dL Normal <=150 [facility] Comment on above: Performed By: #### F ERR, FETIBC #### [facility] [address] [address] [address] Michele Obrien VLDL CALC 21.2 mg/dL Normal [facility] Comment on above: Performed By: #### F ERR, FETIBC #### [facility] [address] [address] [address] Michele Obrien PROF 14(COMP METB)on 023 Albumin [Mass/Vol] 3.5 g/dL Normal 3.4-5.0 [facility] Comment on above: Performed By: #### F ERR, FETIBC #### [facility] [address] [address] [address] Michele Obrien Albumin/Globulin [Mass ratio] 1.2 {ratio} Normal [facility] Comment on above: Performed By: #### F ERR, FETIBC #### [facility] [address] [address] [address] Michele Obrien ALP [Catalytic activity/Vol] 76 U/L Normal 46-116 [facility] Comment on above: Performed By: #### F ERR, FETIBC #### [facility] [address] [address] [address] Michele Obrien ALT [Catalytic activity/Vol] 16 U/L Normal 14-59 [facility] Comment on above: Performed By: #### F ERR, FETIBC #### [facility] [address] [address] [address] Michele Obrien Anion gap [Moles/Vol] 10.0 mmol/L Normal [facility] Comment on above: Performed By: #### F ERR, FETIBC #### [facility] [address] [address] [address] Michele Obrien AST [Catalytic activity/Vol] 16 U/L Normal 15-37 [facility] Comment on above: Performed By: #### F ERR, FETIBC #### [facility] [address] [address] [address] Michele Obrien Bilirubin [Mass/Vol] 0.3 mg/dL Normal 0.2-1.0 [facility] Comment on above: Performed By: #### F ERR, FETIBC #### [facility] [address] [address] [address] Michele Obrien Calcium [Mass/Vol] 8.5 mg/dL Normal 8.5-10.1 [facility] Comment on above: Performed By: #### F ERR, FETIBC #### [facility] [address] [address] [address] Michele Obrien Chloride [Moles/Vol] 106 mmol/L Normal 98-107 [facility] Comment on above: Performed By: #### F ERR, FETIBC #### [facility] [address] [address] [address] Michele Obrien CO2 [Moles/Vol] 30.8 mmol/L Normal 21.0-32.0 [facility] Comment on above: Performed By: #### F ERR, FETIBC #### [facility] [address] [address] [address] Michele Obrien Creatinine [Mass/Vol] 0.68 mg/dL Normal 0.55-1.02 [facility] Comment on above: Performed By: #### F ERR, FETIBC #### [facility] [address] [place] [address] Dr. Michele Obrien EGFR-AF NIUEAN >60 Normal >=60 [facility] Comment on above: Performed By: #### F ERR, FETIBC #### [facility] [address] [place] [address] Dr. Michele Obrien EGFR-NON AF NIUEAN >60 Normal >=60 [facility] Comment on above: Performed By: #### F ERR, FETIBC #### [facility] [address] [place] [address] Dr. Michele Obrien Globulin (S) [Mass/Vol] 2.8 g/dL Normal [facility] Comment on above: Performed By: #### F ERR, FETIBC #### [facility] [address] [address] [address] Michele Obrien Glucose [Mass/Vol] 77 mg/dL Normal 74-106 [facility] Comment on above: Performed By: #### F ERR, FETIBC #### [facility] [address] [place] [address] Dr. Michele Obrien Potassium [Moles/Vol] 3.8 mmol/L Normal 3.5-5.1 [facility] Comment on above: Performed By: #### F ERR, FETIBC #### [facility] [address] [place] [address] Dr. Michele Obrien Protein [Mass/Vol] 6.3 g/dL Critically low 6.4-8.2 [facility] Comment on above: Performed By: #### F ERR, FETIBC #### [facility] [address] [place] [address] Dr. Michele Obrien Sodium [Moles/Vol] 143 mmol/L Normal 136-145 [facility] Comment on above: Performed By: #### F ERR, FETIBC #### [facility] [address] [place] [address] Dr. Michele Obrien Urea nitrogen [Mass/Vol] 10.0 mg/dL Normal 7.0-18.0 [facility] Comment on above: Performed By: #### F ERR, FETIBC #### [facility] [address] [place] [address] Dr. Michele Obrien Urea nitrogen/Creatinine [Mass ratio] 14.7 mg/mg Normal [facility] Comment on above: Performed By: #### F ERR, FETIBC #### [facility] [address] [place] [address] Dr. Michele Obrien TSHon 08-20-2022 TSH 4.302 uIU/mL Critically high 0.358-3.740 [facility] Comment on above: Performed By: #### F ERR, FETIBC #### [facility] [address] [place] [address] Dr. Michele Obrien VIT B12 AND FOLATEon 023 Cobalamin (Vitamin B12) [Mass/Vol] 433.0 pg/mL Normal 193.0-986.0 [facility] Comment on above: Performed By: #### B 12FOL, VITAD #### [facility] [address] [place] [address] Dr. Michele Obrien FOLATE 18.00 ng/mL Normal 8.60-58.90 [facility] Comment on above: Performed By: #### B 12FOL, VITAD #### [facility] [address] [address] [address] Michele Obrien VITAMIN D 25 OHon 08-20-2022 VIT D 25-OH 33.4 ng/mL Normal [facility] Comment on above: Performed By: #### B 12FOL, VITAD #### [facility] [address] [address] [address] Michele Obrien VIT D RANGES SEE BELOW Normal [facility] Comment on above: Result Comment: <20 ng/mL Vit D deficient 20 - <30 ng/mL Vit D insufficient 30 - 100 ng/mL Vit D sufficient >100 ng/mL Potential Toxicity Performed By: #### B 12FOL, VITAD #### [facility] [address] [address] [address] Michele Obrien Vital Signs Date Time Vital Sign Value Performing Clinician Facility 09-22-2023 09:42-0500 Body mass index (BMI) [Ratio] 44.85 kg/m2 Héctor Aguilar MD Work Phone: [facility] 09-22-2023 09:42-0500 Body weight 141.79 kg Héctor Aguilar MD Work Phone: [facility] 09-22-2023 09:42-0500 Diastolic blood pressure 74 mm[Hg] Héctor Aguilar MD Work Phone: [facility] 09-22-2023 09:42-0500 Heart rate 82 /min Héctor Aguilar MD Work Phone: [facility] 09-22-2023 09:42-0500 Systolic blood pressure 123 mm[Hg] Héctor Aguilar MD Work Phone: [facility] 09-15-2023 11:30-0500 Body mass index (BMI) [Ratio] 43.52 kg/m2 Kassandra ALBERTO Work Phone: [facility] 09-15-2023 11:30-0500 Body weight 141.52 kg Kassandra ALBERTO Work Phone: [facility] 09-15-2023 11:30-0500 Diastolic blood pressure 80 mm[Hg] Kassandra ALBERTO Work Phone: [facility] 09-15-2023 11:30-0500 Systolic blood pressure 130 mm[Hg] Kassandra ALBERTO Work Phone: [facility] 05-19-2023 15:30-0400 Body weight 128.05 kg Denys Barriosormack Other [facility] Other 05-19-2023 15:30-0400 Diastolic blood pressure 86 mm[Hg] Denys Selfack Other [facility] Other 05-19-2023 15:30-0400 Systolic blood pressure 127 mm[Hg] Denys Selfack Other [facility] Other 03-15-2023 10:48-0400 Diastolic blood pressure 80 mm[Hg] SERVICE CENTER ASSISTANT-BC Wilber Shammo Work Phone: [facility] 03-15-2023 10:48-0400 Heart rate 63 /min SERVICE CENTER ASSISTANT-BC Wilber Shammo Work Phone: [facility] 03-15-2023 10:48-0400 Respiratory rate 16 /min SERVICE CENTER ASSISTANT-BC Wilber Shammo Work Phone: [facility] 03-15-2023 10:48-0400 SaO2% (BldA) [Mass fraction] 99 % SERVICE CENTER ASSISTANT-BC Wilber Shammo Work Phone: [facility] 03-15-2023 10:48-0400 Systolic blood pressure 126 mm[Hg] SERVICE CENTER ASSISTANT-BC Wilber Shammo Work Phone: [facility] 03-15-2023 08:43-0400 Body height 180.34 cm SERVICE CENTER ASSISTANT-BC Wilber Shammo Work Phone: [facility] 03-15-2023 08:43-0400 Body temperature 98.2 [degF] SERVICE CENTER ASSISTANT-BC Wilber Shammo Work Phone: [facility] 03-15-2023 08:43-0400 Body weight 129.27 kg SERVICE CENTER ASSISTANT-BC Wilber More Work Phone: [facility] 01-17-2023 10:00-0400 Body weight 127.01 kg Denys Landa Other [facility] Other 01-17-2023 10:00-0400 Diastolic blood pressure 85 mm[Hg] Denys Landa Other [facility] Other 01-17-2023 10:00-0400 Systolic blood pressure 125 mm[Hg] Denys Landa Other [facility] Other Encounters Encounter Date Encounter Type Care Provider Facility Start: 11-30-2023 End: 11-30-2023 ambulatory KASSANDRA LINARES Not Available Start: 11-15-2023 End: 11-15-2023 ambulatory ADRIAN PARIS Not Available Start: 11-02-2023 End: 11-02-2023 ambulatory HÉCTOR AGUILAR [facility] Start: 11-02-2023 End: 11-02-2023 Office outpatient visit 15 minutes Fred Chavez MD Work Phone: [facility] Comment on above: Essential hypertensi on affecting in second trimester (Primary Dx) Start: 10-31-2023 End: 10-31-2023 ambulatory KASSANDRA LINARES Not Available Start: 10-18-2023 End: 10-19-2023 ambulatory ADRIAN R PARIS [facility] Start: 10-18-2023 Documentation procedure Fred Chavez MD Work Phone: [facility] Start: 10-13-2023 End: 10-13-2023 ambulatory ADRIAN PARIS Not Available Start: 09-22-2023 End: 09-23-2023 Orders Only Rossy Carrington RN [facility] Comment on above: Pre-existing essenti al hypertension during in second trimester (Primary Dx); Advanced maternal age in multigravida, second trimester; Hypothyroid in , antepartum Start: 09-22-2023 End: 09-22-2023 Office consultation new/estab patient 60 min Héctor Aguilar MD Work Phone: [facility] Comment on above: Essential hypertensi on affecting in second trimester (Primary Dx) Start: 09-15-2023 End: 09-15-2023 ambulatory KASSANDRA LINARES Not Available Start: 09-15-2023 End: 09-15-2023 flow sheet Kassandra ALBERTO Work Phone: [facility] Comment on above: Second trimester pre gnancy; Diabetes mellitus screening; 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); Hypothyroidism, unspecified type (CMS/HCC) Start: 08-24-2023 Chart abstracting Liz Bee MD Work Phone: [facility] Start: 08-19-2023 Telephone encounter Janae Ware [facility] [place] Start: 08-18-2023 End: 08-18-2023 ambulatory ADRIAN MIGUEL Not Available Start: 08-03-2023 ambulatory WILBER BONILLAMO Facility:[facility] Start: 07-21-2023 End: 07-21-2023 ambulatory KASSANDRA LINARES Not Available Start: 06-13-2023 End: 06-13-2023 ambulatory ADRIAN MIGUEL Not Available Start: 05-19-2023 End: 05-19-2023 ambulatory Denys Landa Other [facility] Other Start: 05-19-2023 Office outpatient vi sit 15 minutes Denys Landa [facility] Start: 03-15-2023 End: 03-15-2023 ambulatory Denys Landa Facility:[facility] Start: 03-15-2023 End: 03-15-2023 Admission to same day surgery center [facility] Wilber More Work Phone: [facility] Health Work Phone: Start: 03-15-2023 End: 03-15-2023 ambulatory SERVICE CENTER ASSISTANT-BC Wilber T Shammo Work Phone: [facility] Work Phone: Start: 01-26-2023 End: 01-27-2023 ambulatory WILBER SHAMMO Facility:[facility] Start: 01-26-2023 End: 01-27-2023 ambulatory Alyson Chiu Facility:[facility] Start: 01-26-2023 End: 01-26-2023 Lab Drop off Alyson Chiu [facility] Start: 01-26-2023 End: 01-26-2023 Patient encounter procedure Alyson Chiu [facility] Start: 01-20-2023 ambulatory WILBER SHAMMO Facility:[facility] Start: 01-17-2023 End: 01-17-2023 ambulatory Denys Landa Other [facility] Other Start: 01-17-2023 Office outpatient ne w 45 minutes Denys Landa [facility] Gastro[facility] Start: 12-28-2022 End: 12-28-2022 ambulatory LUKE BOWENS . Facility: Start: 10-16-2022 End: 10-17-2022 ambulatory WILBER SHAMMO Facility:[facility] Start: 08-25-2022 Encounter for genera l adult medical examination without abnormal findings WILBER SHAMMO [facility] Start: 08-20-2022 End: 08-21-2022 ambulatory WILBER SHAMMO Facility:[facility] Start: 08-20-2022 End: 08-21-2022 Encounter for general adult medical examination without abnormal findings WILBER SHAMMO Facility:[facility] Procedures Date Procedure Procedure Detail Performing Clinician Start: 09-15-2023 Urnls dip stick/tablet rgnt non-auto w/o micrscp Kassandra ALBERTO Work Phone: Start: 06-08-2023 FREE CELL DNA (NON-[facility]) Not In System Ref Prov Start: 03-15-2023 Esophagogastroduodenoscopy SERVICE CENTER ASSISTANT-BC Wilber More Work Phone: Start: 08-01-2016 Appendectomy Alyson Chiu Start: 08-01-2016 Gastric sleeve Alyson Chiu Start: 08-01-2005 Cholecystectomy Alyson Chiu Arthroplasty of knee Alyson chamberlain Comment on above: Meniscus repair section Alyson Chiu Comment on above: x2 Plan of Treatment Date Care Activity Detail Author Start: 09-22-2024 Adult BMI Screening Adult BMI Screen ing [facility] Start: 09-22-2024 Tobacco Screening Tobacco Screening [facility] Start: 09-22-2024 End: 09-22-2024 US MFM with or without consult US MFM with or without consult Imaging Routine Pre-existing essential hypertension during in second trimester Advanced maternal age in multigravida, second trimester Hypothyroid in , antepartum Expected: 09/22/2024 (Approximate), Expires: 09/22/2024 [facility] Work Phone: Comment on above: Expected: 09/22/2024 (Approximate), Expires: 09/22/2024 Start: 04-01-2024 Influenza vaccination Influenza Vacc ine [facility] Start: 11-12-2023 Adult BMI Screening Adult BMI Screen ing [facility] Start: 11-02-2023 End: 11-02-2023 Telemedicine consultation with patient 11/02/2023 11:30 AM EDT Telemedicine [facility] at [facility] [address] [place] [id number] Fred Chavez MD [address] [place], [place] [id number] Héctor Aguilar MD [address] [facility], [address] [place] [address] [facility] Start: 10-18-2023 End: 10-18-2023 Telemedicine consultation with patient 10/18/2023 1:30 PM EDT Telemedicine [facility] [address] [place] [address] Fred Chavez MD [address] [place] [address] [facility] Start: 10-18-2023 End: 10-18-2023 Patient encounter procedure 10/18/2023 12:30 PM EDT Appointment [facility] - Ultrasound [address] [place] [address] [facility] - Ultrasound Start: 10-13-2023 End: 10-13-2023 Patient encounter procedure 10/13/2023 10:50 AM EDT Routine [facility] [address] [place] [id number] Adrian Miguel, [address] [place] [address] [facility] Start: 09-15-2023 End: 09-15-2024 CBC panel - Blood by Automated count CBC Lab Routine Diabetes mellitus screening Expected: 09/15/2023 (Approximate), Expires: 09/15/2024 [facility] Work Phone: Comment on above: Expected: 09/15/2023 (Approximate), Expires: 09/15/2024 Start: 09-15-2023 End: 09-15-2024 Measurement of glucose 1 hour after glucose challenge for glucose tolerance test Glucose tolerance, 1 hour Lab Routine Diabetes mellitus screening Expected: 09/15/2023 (Approximate), Expires: 09/15/2024 [facility] Comment on above: Expected: 09/15/2023 (Approximate), Expires: 09/15/2024 Start: 09-15-2023 End: 09-15-2024 Thyrotropin [Units/volume] in Serum or Plasma TSH Lab Routine Hypothyroidism, unspecified type (CMS/HCC) Expected: 09/15/2023 (Approximate), Expires: 09/15/2024 [facility] Comment on above: Expected: 09/15/2023 (Approximate), Expires: 09/15/2024 Start: 09-14-2023 End: 09-14-2023 Patient encounter procedure [facility] Start: 04-01-2023 Influenza vaccination Influenza Vacc ine [facility] Start: 03-15-2023 [facility] Start: 11-02-2007 Screening for malign ant neoplasm of cervix Pap Smear [facility] Start: 2005 DTaP,Tdap and Td Vaccines (1 - Tdap) DTaP,Tdap and Td Vaccines (1 - Tdap) [facility] Start: 2004 Adult BMI Follow Up Plan Adult BMI Follow Up Plan [facility] Start: 1998 Depression Screening Depression Scre ening [facility] Start: 1998 Tobacco Screening Tobacco Screening [facility] Hemoglobin A1c/Hemoglobin.total in Blood Hemoglobin A1c Lab Routine Diabetes mellitus screening Ordered: 09/15/2023 [facility] Comment on above: Ordered: 09/15/2023 Patient Education Hiatal hernia Diverticulosis [facility] Work Phone: Immunizations Immunization Date Immunization Notes Care Provider Alice calhoun 06-01-2022 influenza virus vaccine, unspecified formulation Alyson Chiu [facility] Payers Date Payer Category Payer Self-pay 2022 [employer] ( and others) [id number] 2022 [employer] ( and others) [id number] [facility] ( and others) [id number] 1986 Unknown [id number] [id number] 1986 Unknown [id number] 2.16.840.1.791705.3.579.2.593 1986 Unknown [id number] 2.16.840.1.899048.3.579.2.593 1986 Unknown [id number] 2.16.840.1.780578.3.579.2.727 1986 Unknown [id number] 2.16.840.1.296251.3.579.2.727 1986 Unknown [id number] 2.16.840.1.854988.3.579.2.727 1986 Unknown [id number] 2.16.840.1.483746.3.579.2.1286 1986 Unknown [id number] 2.16.840.1.471173.3.579.2.1286 1986 Unknown [id number] 2.16.840.1.148866.3.579.2.1286 1986 Unknown [id number] 2.16.840.1.008969.3.579.2.1286 1986 Unknown [id number] 2.16.840.1.155419.3.579.2.1259 1986 Unknown [id number] 2.16.840.1.722642.3.579.2.1259 1986 Unknown [id number] 2.16.840.1.467978.3.579.2.1259 1986 Unknown [id number] 2.16.840.1.771990.3.579.2.1259 1986 Unknown [id number] 2.16.840.1.297248.3.579.2.1259 1986 Unknown [id number] 2.16.840.1.219588.3.579.2.1259 1986 Unknown [id number] 2.16.840.1.256833.3.579.2.1259 1986 Unknown [id number] 2.16.840.1.145663.3.579.2.1259 1959 [employer] ( and others) [id number] Unknown [id number] 2.16.840.1.604593.3.579.2.531 Social History Date Type Detail Facility Start: 08-24-2023 End: 09-22-2023 Sex Assigned At [facility] Start: 01-26-2023 Tobacco smoking status Ex-smoker (finding) [facility] Start: 03-15-2023 Tobacco smoking status NHIS Smoker (finding) [facility] Start: 1985 Sex Assigned At Female [facility] Tobacco smoking stat us SDIS Tobacco smoking consumption unknown [facility] Start: 1985 Sex Assigned At Not on file [facility] Start: 01-03-2023 End: 08-24-2023 Tobacco smoking status [facility] Never smoked tobacco [facility] Start: 01-03-2023 End: 08-24-2023 Tobacco use and exposure Smokeless tobacco non-user [facility] Start: 08-24-2023 End: 09-22-2023 Alcohol intake Ex-drinker (finding) [facility] Start: 08-24-2023 End: 09-22-2023 History of Social function [facility] Start: 04-11-2023 [facility] How often to you hav e [...] 01-26-2023 Functional Status No [facility] Clinical Notes 01-17-2023 to 11-02-2023 Héctor [...] Depression Hypertension Hypothyroidism Kidney stones Migraines Seizure ([facility]-H[facility]) REVIEW OF SYSTEMS: Head and Neck: [...] Visit via Real-time Synchronous Audiovisual Provider Location: [facility] MATERNAL- MEDICINE AT [address] [address] Patient Location: Patient's home Patient Location Panel Gluer: None Video Visit Consent Statement: I discussed [...] that there are some limitations compared to [id number]-bf-[id number] evaluations. We elected to proceed. documented in this encounter [facility] 10-18-2023 History of Presen t illness Narrative [...] telehealth rescheduled visit. Fred Chavez MD Professor, [facility] Maternal Medicine (we called the patient ourselves and were not able to successfully connect with her) documented in this encounter [facility] [employer] [facility] 09-22-2023 History of Presen t illness Narrative Headache/epigastric pain/blurry vision/swelling? No Cramping/contractions? No Abnormal vaginal discharge? No Spotting/vaginal bleeding? No Loss of fluid like your water may have broken? No Cats in the home? No Do you change the litter box? N/A Flu vaccine? No Genetic testing done this here or other office? Yes Have you been seen here at [facility] in a previous ? No Recent ER visits or hospitalizations? No Bring blood sugar log or meter with you today? (Please bring them with you for every visit at [facility]) N/A Traveled outside the country in [...] and the other consultants, we search on [employer] and all the available care everywhere epic I did review all the imaging studies of the patient available on EMR, ordered by the primary care physician and the other enterprise resource planning consultant HABITS: Patient activity no restrictions, diet [...] for completion of targeted anatomy at our [facility] site. 5. Serial growth ultrasounds every [...] patient is in complete care of her exercise manager. Patient does have ultrasound office visit scheduled with us Thank you for allowing me to participate in Lisa Allison . If there any questions please do not hesitate to contact us. Sincerely, HÉCTOR AGUILAR MD documented in this encounter [employer] 09-15-2023 History of Presen t illness Narrative [...] hour glucose order to have done at [facility]. Follow Up: Patient is to return [...] of: REMY Valdes documented in this encounter [facility] 08-19-2023 Miscellaneous Notes Formattin g of this note might be different from the original. LEFT A MESSAGE TO SCHEDULE USN AND CONSULT. 08/19/2023 104 documented in this encounter [facility] [employer] 08-19-2023 Telephone encount er Note LEFT A MESSAGE TO SCHEDULE USN AND CONSULT. 08/19/2023 [facility] Evaluation note Encounter Date Diagnosis Assessment [...] start metamucile and probiotics RTO 3 months [facility] Other [facility]-15[facility] Discharge instructions Patient Education 01/26/2023 [...] include: ?8 oz (237 mL) of milk, prrcyyu-oezmpgzksfhg-rvxda milk, and calcium- fortifiedfruit juice. Calcium-fortified means [...] ?Spinach (cooked), rhubarb, beets, sweet potatoes, and St Helenian chard. ?Peanuts. ?Potato chips, vincentian fries, and baked potatoes with skin on. ?Nuts and nut products. ?Chocolate. If you regularly take a diuretic medicine, make sure to eat at least 1 or 2 servings of fruits or vegetables that are high in potassium each day. These include: ?Avocado. ?Banana. ?Americus, prune, carrot, or tomato juice. ?Baked potato. [...] magnesium, fish oil, or vitamin B6. Take wxut-woa-oajprpn and prescription medicines only as told by [...] Casseroles. Pizza. Lasagna. Frozen meals. Potato chips. Hong Konger fries. The items listed above may not [...] provider. Document Revised: 03/29/2022 Document Reviewed: 03/29/2022 [employer] Patient Education 2022 [employer] Follow Up Care 12/28/2022 12:57:40 With:Aram RUSSELL, Alyson Burdick URAjith, URO Address: When:Within 6 Month(s) Comments:marc/ DEYA & YAMILETH [facility] 06-19-2023 Evaluation note* Encounter Date Diagnosis Assessment Notes Treatment Notes Treatment Clinical Notes Dec, Iron deficiency anemia (ICD-10 - D50.9) Will proceed with EGD Will request recent lab work done at [place]. Dec, GERD (gastroesophageal reflux disease) (ICD-10 - K21.9) Patient to continue on Omeprazole 40mg Dec, Diarrhea (ICD-10 - R19.7) Will proceed with Colonoscopy. [facility] Other Evaluation + Plan note Future Appointments Appointment Date:08/03/2023 10:00:00 AM Scheduled Provider:Alyson Chiu MD Location:[facility] Appointment Type:URO Office Visit [facility] evaluation + Plan note Future Appointments Appointment Date:08/03/2023 10:00:00 AM Scheduled Provider:Alyson Chiu MD Location: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) Hypothyroidism, unspecified type (CMS/HCC) documented in this encounter [facility] HealthcareEvaluation note* Diagnosis Essential hypertension affecting in second trimester- Primary [facility] Diagnosis Pre-existing essential hypertension during in second trimester- Primary Advanced maternal age in multigravida, second trimester Hypothyroid in , antepartum [facility] Diagnosis Essential hypertension affecting in second trimester- Primary [facility] in this [facility] N[facility]ative - Reported* Type [...] left knee meniscus Hospitalization History see above [facility] Other Hospital course Narrative No data available for this section [facility] Discharge instructions No data available for this section [facility] Additional Instructions DISCHARGE [...] if you have any problems. -Office number [phone] Work Phone: InstructionsNot on filedocumented in this encounter [facility]ructionsNot on filedocumented in this encounter [facility] SystemInstructionsNot on filedocumented in this encounter [facility] on filedocumented in this encounter [facility]ructionsNot on filedocumented in this encounter [facility] System[facility]ructionsNot on filedocumented in this encounter [facility] No data available for this section [facility] [place] Summary Purpose Family History No Family History [...] consult Héctor Aguilar MD [address] [facility] [address] [place] [address] [facility] [address] [place] [address] Referral ID Status Reason Start Date Expiration Date V isits Requested Visits Authorized [id number] Pending Review 09/22/2023 09/21/2024 1 1 Additional Source Comments INFORMATION SOURCE (unrecogn ized section and content) DATE CREATED AUTHOR 01/07/2023 [facility] DATE CREATED AUTHOR AUTHOR'S ORGANIZ ATION 03/17/2023 [facility] DATE CREATED AUTHOR AUTHOR'S ORGANIZ ATION 08/05/2023 [facility] DATE CREATED AUTHOR AUTHOR'S ORGANIZ ATION 10/19/2023 [facility] DATE CREATED AUTHOR AUTHOR'S ORGANIZ ATION 11/03/2023 [facility] DATE CREATED AUTHOR AUTHOR'S ORGANJEREMIAS ATION 12/01/2023 [facility] EPIC REASON FOR VISIT (unrecogniz ed section and content) Reason Comments Routine Visit Reason Comments Advanced Maternal Age Chronic Hypertension Hypothyroidism Patient Care team informatio n (unrecognized section and content) Team Status: Active Member Role Status Dates Wilber More , [facility] Primary Care Provider Active Team Status: Inactive Member Role Status Dates Denys Landa MD Attending Provider Active Wilber More [facility] Primary Care Provider Active Housekeeping Staff Relationship Specialty Start Date End Date No Pcp, [place] [address] PCP - General Family Medicine 10/18/23 Housekeeping Staff Relationship Specialty Start Date End Date No Pcp, [place] [address] PCP - General Family Medicine 10/18/23 FOR [...] BE BASED ON THE PRIMARY CLINICAL RECORDS. [facility] [employer] provides no warranty or guarantee of the accuracy or completeness of information in this document.
== END 2023-12-08 20:13 | disposition home or self-care (01) ==
LOC: LAB 20:12
PROVIDERS: PCP Nurse Practitioner Primary Care; Visit Provider Obstetrics & Gynecology
DX: Z34.93 Encounter for supervision of normal pregnancy, unspecified, third trimester (principal)
CPT/HCPCS: 87081

== ENCOUNTER 2023-12-09 07:15 | Outpatient (OUT) | payer OTHER, SELFPAY ==
--- OUTSIDE RECORDS SUMMARY | 2023-12-09 07:17 | XMS_ITS | CCD ---
Author Organization [facility] Care Team Providers Care Relief Pilot Name Role Phone KWAN ., LUKE Admitting Unavailable KWAN ., LUKE Attending Unavailable HAY ., DR ROBERTO Consulting Unavailable SHAMMO, WILBER Primary Care Unavailable LUWilber .ALYSON Consulting Unavailable LOMBARDOLINDA JENKINS Consulting Unavailable ALEXA WHITE Consulting Unavailable KWAN ., LUKE Consulting Unavailable SHAMMO, WILBER Attending Unavailable SHAMMO, WILBER Admitting Unavailable SHAMMO, WILBER Consulting Unavailable SHAMMO, WILBER Attending Unavailable SHAMMO, WILBER Admitting Unavailable SHAMMO, WILBER Primary Care Unavailable SHAMMO, WILBER Consulting Unavailable Denys Landa Unavailable SHAMMO, WILBER TOMASA Primary Care Physician MD Denys Landa Attending Provider [phone] Shammo, [facility] Wilber T Primary Care Provider Denys Landa [...] sources) Penicillin Drug Allergy 3 Unknown [facility] Repository (15 sources) Penicillins; Translations: [penicillins] Allergy to substance 3 Anaphylaxis (disorder), Anaphylaxis, Unknown [facility] (7 sources) topiramate; Translations: [TOPIRAMATE] Drug Allergy 4 [facility] Status Overload System (2 sources) Penicillin G Drug Allergy 3 Unknown [facility] Healthcare (2 sources) Topiramate Allergy to substance 3 [facility] Medications Current Medications Medication Drug Class(es) [...] Start: 01-26-2023 take 1 capsule by mo [facility] once daily levothyroxine 137 mcg (0.137 [...] 09/09/2022 Active take 1 capsule by mo [facility] once daily Metoprolol Succinate 100 MG [...] UA Negative Negative - 4(70) +++ mg/dL [facility] Healthcare Blood, UA Negative Negative - 50 Maikol/mcL [facility] Clarity, UA Clear [facility] Color, UA Yellow [facility] Glucose, UA Negative Negative - 2000(110) ++++ mg/dL [facility] Interpretation and review of laboratory results Abnormal [facility] Ketones, UA Negative Negative - 160(16) ++++ mg/dL [facility] Leukocytes, UA Negative Negative - 500+++ Endy/mcL [facility] Nitrite, UA Negative Negative - Positive [facility] pH, UA 6.0 5 - 9 [facility] Protein, UA Trace Negative - 2000(20) ++++ mg/dL [facility] Spec Grav, UA 1.025 1 - 1.03 [facility] Urobilinogen, UA 0.2 0.2 - 12 mg/dL [facility] Healthcare Reminderson 08-05-2023 Reminders - From: Ewa Valentin To: EU - Recalls Lue; Sent: 01/26/2023 10:51:29 EDT Show up: 06/28/2023 09:51:00 EST Subject: Reminder Message Due Date/Time: 07/28/2023 09:51:00 EST Call pt to schedule a KUB and YAIMLETH Called pt and left VM to return [...] EST Subject: RE: Reminder Message No Normal [facility] Free Cell DNAon 2022 [facility] HCG ( test) IA.rapi d Ql (U)Ordered By: Denys Landa on 03-15-2023 HCG ( test) Ql (U) Negative [facility] HCG,Urineon 03-15-2023 Beta HCG ( test) Ql (U) Negative Normal [facility] Comment on above: Result Comment: PERF ORMED BY: [place] [address] PATHOLOGIST INFANT AND TODDLER TEACHER SALVADOR LEHMAN M.D. Performed By: #### U HCG #### [address] Arturo 03-15-2023 L Specimen: [id number] Received: 03/15/23 Status: KENISHA Tavon Num: [id number] Spec Type: Surgical Subm Dr: Denys Landa MD Tissues: A Duodenum - Biopsy (DUODENAL BX) B STOMACH FOR HP (ANTRAL BX HP) C Esophagus Biopsy (ESOPHAGUS BX) Procedures: HE/6, Gross/Micro L4/3, H PYLORI Age/ Patient Sex Location Account Attending Physician Lisa Allison 37/F [id number] Denys Landa MD SPEC NUM: [id number] RECD: 03/15/23 STATUS: KENISHA MONTES DE OCA NUM: [id number] RODERICK: 03/15/23- [facility] DR: Denys Landa MD ENTERED: 03/15/23-1149 [facility] DR: CESAR TYPE: Surgical DEPT: [...] eosinophilic exocytosis or eosinophilic esophagitis identified Specimen: [id number] Received: 03/15/23 Status: KENISHA Montes De [place]ca Num: [id number] Spec Type: Surgical Subm Dr: Denys Landa MD Tissues: A Duodenum - Biopsy (DUODENAL BX) B STOMACH FOR HP (ANTRAL BX HP) C Esophagus Biopsy (ESOPHAGUS BX) Procedures: HE/6, Gross/Micro L4/3, H PYLORI Patient: Lisa Allison [id number] (Continued) Specimen: [id number] Received: 03/15/23 (Continued) Signed (signature on file) Bharti Obrien MD 03/16/23 1658 Specimen: [id number] Received: 03/15/23 Status: KENISHA Montes [place] Num: [id number] Spec Type: Surgical Subm Dr: Denys Landa MD Tissues: A Duodenum - Biopsy (DUODENAL BX) B STOMACH FOR HP (ANTRAL BX HP) C Esophagus Biopsy (ESOPHAGUS BX) Procedures: /6, Gross/Micro L4/3, H PYLORI Patient: EstefanyLisa hwang Roberta [id number] (Continued) Specimen: [id number] Received: 03/15/23 (Continued) Clinical Information LARISSA, rule [...] microscopic examination confirms the diagnosis. CPT Codes 80819h0, 40487 -- (more content not included)... Normal [facility] Calculus Analysison 02-06-20 23 Calcium oxalate dihydrate Infrared spectroscopy (Stone) [Mass fraction] 30 % Invalid Interpretation Code [facility] Comment on above: Performed By: #### 1 [id number] #### [facility] [address] [place] [address] Calcium oxalate monohydrate (Stone) [Mass fraction] 70 % Invalid Interpretation Code [facility] Comment on above: Performed By: #### 1 [id number] #### [facility] [address] [place] [address] Color (Stone) Brown Invalid Interpretation Code [facility] Comment on above: Performed By: #### 1 [id number] #### [facility] [address] [place] [address] Composition Comment Invalid Interpretation Code [facility] Comment on above: Result Comment: Perc entage (Represents the % composition) Performed By: #### 1 [id number] #### [facility] [address] [place] [address] Disclaimer: Comment Invalid Interpretation Code [facility] Comment on above: Result Comment: This test was developed and its performance characteristics determined by [facility]. It has not been cleared or approved by the Food and Drug Administration. Performed at: [facility] [place] [address] [place], [place] [id number] PhD Roya Prajapati Performed By: #### 1 [id number] #### [facility] [address] [place] [address] Laboratory comment Asa (Report) Comment Invalid Interpretation Code [facility] Comment on above: Result Comment: Brad tafoya questions regarding Calculi Analysis [facility] at: [phone]. Performed By: #### 1 [id number] #### [facility] [address] [place] [address] Please Note: Comment Invalid Interpretation Code [facility] Comment on above: Result Comment: Calc dory report will follow via computer, mail or conservation planner delivery. Performed By: #### 1 [id number] #### [facility] [address] [place] [address] Size (Stone) [Entitic vol] 3x3 Invalid Interpretation Code [facility] Comment on above: Result Comment: Mult iple pieces received. Dimensions of the largest piece reported. Performed By: #### 1 [id number] #### [facility] [address] [place] [address] Specimen source subject Nom Comment Invalid Interpretation Code [facility] Comment on above: Result Comment: Not provided Performed By: #### 1 [id number] #### [facility] [address] [place] [address] Stone Photo Comment Invalid Interpretation Code [facility] Comment on above: Result Comment: Phot ograph will follow under a separate cover Performed By: #### 1 [id number] #### [facility] [address] [place] [address] Weight (Stone) 8 mg Invalid Interpretation Code [facility] Comment on above: Performed By: #### 1 [id number] #### [facility] [address] [place] [address] [facility] 01-26-2023 Forms [id number] #1.00CD:127 Normal [facility] Patient Educationon 01-27-20 23 Patient Education [...] Spinach (cooked), rhubarb, beets, sweet potatoes, and Malian chard. ? Peanuts. ? Potato chips, saudi arabian fries, and baked potatoes with skin on. ? Nuts and nut products. ? Chocolate. ? If you regularly take a diuretic medicine, make sure to eat at least 1 or 2 servings of fruits or vegetables that are high in potassium each day. These include: ? Avocado. ? Banana. ? [place], prune, carrot, or tomato juice. ? Baked [...] fish oil, or vitamin B6. ? Take [id number]-[id number] and prescription medicines only as told by your health care provider. These include supplements. What foods should I limit? Limit your in (more content not included)... Normal [facility] RAD - MISCon 01-26-2023 RAD - MISC [id number] #1.00CD:127 [facility] Screenson 01-26-2023 Screens [id number] #1.00CD:127 [facility] Urology Office/Clinic Noteon 01-26-2023 Urology Office/Clinic Note Chief Complaint kidney stones HPI Staff Pt is a new pt, never before seen in our office. Here today due to kidney stones. [place] [facility] 12/27/22 due to Rt flank pain [...] for this patient from Dr. Herron @ [facility]. I have reviewed and verified [...] Pt had gastric bypass in 2016 in [place]. Has had diarrhea since she had her [...] Nitrite Uri (more content not included)... Normal [facility] Comment on above: Result Comment: Elec tronically Signed By: Alyson Chiu MD\.br\Date and Time Signed: 01/26/23 21:46 EDT\.br\Electronically Co-Signed By: Ewa Valentin\.br\Date and Time Co-Signed: 01/26/23 10:54 EDT ED Note-Physicianon 01-24-20 ED Note-Physician [id number]#1.00CD:127 Normal [facility] Lab Reportson 01-23-2023 Lab Reports [id number]#1.00CD:127 Normal [facility] RAD - CT Reporton 01-23-2023 RAD - CT Report [id number]# 1.00CD:127 Normal [facility] CBC AUTO DIFFon 12-28-2022 BASO # 0.0 103/ul Normal 0.0-0.1 [facility] Comment on above: Performed By: #### F ERR, FETIBC #### [facility] [address] [place] [address] Dr. Michele Obrien Basophils/100 WBC (Bld) 0.5 % Normal 0.2-2.0 [facility] Comment on above: Performed By: #### F ERR, FETIBC #### [facility] [address] [address] [address] Michele Obrien EO # 0.2 103/ul Normal 0.0-0.7 [facility] Comment on above: Performed By: #### F ERR, FETIBC #### [facility] [address] [address] [address] Michele Obrien Eosinophils/100 WBC (Bld) 2.6 % Normal 0.9-7.0 [facility] Comment on above: Performed By: #### F ERR, FETIBC #### [facility] [address] [place] [address] Dr. Michele Obrien Erythrocyte distribution width (RBC) [Ratio] 19.1 % Critically high 11.0-15.0 [facility] Comment on above: Performed By: #### F ERR, FETIBC #### [facility] [address] [place] [address] Dr. Michele Obrien Hematocrit (Bld) [Volume fraction] 37.6 % Normal 36.0-48.0 [facility] Comment on above: Performed By: #### F ERR, FETIBC #### [facility] [address] [place] [address] Dr. Michele Obrien Hemoglobin (Bld) [Mass/Vol] 11.9 g/dL Critically low 12.0-16.0 [facility] Comment on above: Performed By: #### F ERR, FETIBC #### [facility] [address] [place] [address] Dr. Michele Obrien IG # 0.03 10e3/ul Normal 0.00-0.03 [facility] Comment on above: Performed By: #### F ERR, FETIBC #### [facility] [address] [place] [address] Dr. Michele Obrien IG % 0.3 % Normal 0.0-0.5 [facility] Comment on above: Performed By: #### F ERR, FETIBC #### [facility] [address] [place] [address] Dr. Michele Obrien LYMPH # 1.6 103/ul Normal 1.2-3.8 [facility] Comment on above: Performed By: #### F ERR, FETIBC #### [facility] [address] [place] [address] Dr. Michele Obrien Lymphocytes/100 WBC (Bld) 18.4 % Critically low 20.5-60.0 [facility] Comment on above: Performed By: #### F ERR, FETIBC #### [facility] [address] [place] [address] Dr. Michele Obrien MANUAL DIFF REQ NO Normal [facility] Comment on above: Performed By: #### F ERR, FETIBC #### [facility] [address] [place] [address] Dr. Michele Obrien MCH (RBC) [Entitic mass] 23.7 pg Critically low 26.7-34.0 [facility] Comment on above: Performed By: #### F ERR, FETIBC #### [facility] [address] [place] [address] Dr. Michele Obrien MCHC (RBC) [Mass/Vol] 31.6 g/dL Normal 29.9-35.2 [facility] Comment on above: Performed By: #### F ERR, FETIBC #### [facility] [address] [place] [address] Dr. Michele Obrien MCV (RBC) [Entitic vol] 74.9 fL Critically low 81.0-99.0 [facility] Comment on above: Performed By: #### F ERR, FETIBC #### [facility] [address] [place] [address] Dr. Michele Obrien MONO # 0.5 103/ul Normal 0.3-0.8 [facility] Comment on above: Performed By: #### F ERR, FETIBC #### [facility] [address] [place] [address] Dr. Michele Obrien Monocytes/100 WBC (Bld) 5.9 % Normal 1.7-12.0 [facility] Comment on above: Performed By: #### F ERR, FETIBC #### [facility] [address] [place] [address] Dr. Michele Obrien NEUT # 6.4 103/ul Normal 1.4-6.5 [facility] Comment on above: Performed By: #### F ERR, FETIBC #### [facility] [address] [place] [address] Dr. Michele Obrien Neutrophils/100 WBC (Bld) 72.3 % Normal 43.0-75.0 [facility] Comment on above: Performed By: #### F ERR, FETIBC #### [facility] [address] [address] [address] Michele Obrien Platelet mean volume (Bld) [Entitic vol] 10.2 fL Normal 9.5-13.5 [facility] Comment on above: Performed By: #### F ERR, FETIBC #### [facility] [address] [place], [place] [address] Dr. Michele Obrien PLT 243 103/ul Normal 150-450 [facility] Comment on above: Performed By: #### F ERR, FETIBC #### [facility] [address] [place], [place] [address] Dr. Michele Obrien RBC 5.02 106/ul Normal 4.20-5.40 [facility] Comment on above: Performed By: #### F ERR, FETIBC #### [facility] [address] [address] [address] Michele Obrien WBC 8.9 103/ul Normal 4.0-11.0 [facility] Comment on above: Performed By: #### F ERR, FETIBC #### [facility] [address] [address] [address] ABD/PELVIS WO CONon [...] authenticated by: ALEXA Harper: 2022-12-28 02:25 Normal [facility] ER URINE PROFILEon 3 Bilirubin Ql (U) Negative Normal NEGATIVE [facility] Comment on above: Performed By: #### H IV12 #### [facility] [address] [address] [address] Michele Obrien Clarity (U) CLEAR Normal CLEAR [facility] Comment on above: Performed By: #### H IV12 #### [facility] [address] [address] [address] Michele Obrien Color (U) LT. YELLOW Normal YELLOW [facility] Comment on above: Performed By: #### H IV12 #### [facility] [address] [place] [address] Dr. Michele JACKSON A micrscopic examination will be performed if indicated. Normal [facility] Comment on above: Performed By: #### H IV12 #### [facility] [address] [address] [address] Michele Obrien Glucose Ql (U) Negative Normal NEGATIVE [facility] Comment on above: Performed By: #### H IV12 #### [facility] [address] [address] [address] Michele Obrien Hemoglobin Ql (U) MODERATE Abnormal NEGATIVE [facility] Comment on above: Performed By: #### H IV12 #### [facility] [address] [address] [address] Michele Obrien Ketones Ql (U) Negative Normal NEGATIVE [facility] Comment on above: Performed By: #### H IV12 #### [facility] [address] [address] [address] Michele Obrien LEUKOCYTES Negative Normal NEGATIVE [facility] Comment on above: Performed By: #### H IV12 #### [facility] [address] [place] [address] Dr. Michele Obrien Nitrite Ql (U) Negative Normal NEGATIVE [facility] Comment on above: Performed By: #### H IV12 #### [facility] [address] [place] [address] Dr. Michele Obrien pH (U) 5.5 [pH] Normal 5-9 [facility] Comment on above: Performed By: #### H IV12 #### [facility] [address] [place] [address] Dr. Michele Obrien SPEC GRAVITY 1.025 Normal 1.005-<=1.025 [facility] Comment on above: Performed By: #### H IV12 #### [facility] [address] [place] [address] Dr. Michele Obrien UA PROTEIN Negative Normal NEGATIVE/ TRACE [facility] Comment on above: Performed By: #### H IV12 #### [facility] [address] [place] [address] Dr. Michele Obrien UR MICRO IND INDICATED Normal [facility] Comment on above: Performed By: #### H IV12 #### [facility] [address] [place] [address] Dr. Michele Obrien Urobilinogen Qn (U) 0.2 {Ijeoma'U}/dL Normal 0.2 - 1. 0 [facility] Comment on above: Performed By: #### H IV12 #### [facility] [address] [place] [address] Dr. Michele Obrien PREG HCG QUALon 12-28-2022 , QUAL Negative Normal NEGATIVE [facility] Comment on above: Performed By: #### P REG #### [facility] [address] [place] [address] Dr. Michele Obrien PROF 14(COMP METB)on 023 Albumin [Mass/Vol] 3.4 g/dL Normal 3.4-5.0 [facility] Comment on above: Performed By: #### C MP #### [facility] [address] [place] [address] Dr. Michele Obrien Albumin/Globulin [Mass ratio] 1.1 {ratio} Normal [facility] Comment on above: Performed By: #### C MP #### [facility] [address] [place] [address] Dr. Michele Obrien ALP [Catalytic activity/Vol] 73 U/L Normal 46-116 [facility] Comment on above: Performed By: #### C MP #### [facility] [address] [address] [address] Michele Obrien ALT [Catalytic activity/Vol] 18 U/L Normal 14-59 [facility] Comment on above: Performed By: #### C MP #### [facility] [address] [address] [address] Michele Obrien Anion gap [Moles/Vol] 11.9 mmol/L Normal [facility] Comment on above: Performed By: #### C MP #### [facility] [address] [address] [address] Michele Obrien AST [Catalytic activity/Vol] 13 U/L Critically low 15-37 [facility] Comment on above: Performed By: #### C MP #### [facility] [address] [address] [address] Michele Obrien Bilirubin [Mass/Vol] 0.1 mg/dL Critically low 0.2-1.0 [facility] Comment on above: Performed By: #### C MP #### [facility] [address] [address] [address] Michele Obrien Calcium [Mass/Vol] 8.6 mg/dL Normal 8.5-10.1 [facility] Comment on above: Performed By: #### C MP #### [facility] [address] [address] [address] Michele Obrien Chloride [Moles/Vol] 105 mmol/L Normal 98-107 [facility] Comment on above: Performed By: #### C MP #### [facility] [address] [address] [address] Michele Obrien CO2 [Moles/Vol] 26.7 mmol/L Normal 21.0-32.0 [facility] Comment on above: Performed By: #### C MP #### [facility] [address] [address] [address] Michele Obrien Creatinine [Mass/Vol] 0.85 mg/dL Normal 0.55-1.02 [facility] Comment on above: Performed By: #### C MP #### [facility] [address] [address] [address] Michele Obrien EGFR-AF BRUNEIAN >60 Normal >=60 [facility] Comment on above: Performed By: #### C MP #### [facility] [address] [address] [address] Michele Obrien EGFR-NON AF BRUNEIAN >60 Normal >=60 [facility] Comment on above: Performed By: #### C MP #### [facility] [address] [address] [address] Michele Obrien Globulin (S) [Mass/Vol] 3.1 g/dL Normal [facility] Comment on above: Performed By: #### C MP #### [facility] [address] [address] [address] Michele Obrien Glucose [Mass/Vol] 123 mg/dL Critically high 74-106 [facility] Comment on above: Performed By: #### C MP #### [facility] [address] [address] [address] Michele Obrien Potassium [Moles/Vol] 3.6 mmol/L Normal 3.5-5.1 [facility] Comment on above: Performed By: #### C MP #### [facility] [address] [address] [address] Michele Obrien Protein [Mass/Vol] 6.5 g/dL Normal 6.4-8.2 [facility] Comment on above: Performed By: #### C MP #### [facility] [address] [address] [address] Michele Obrien Sodium [Moles/Vol] 140 mmol/L Normal 136-145 [facility] Comment on above: Performed By: #### C MP #### [facility] [address] [address] [address] Michele Obrien Urea nitrogen [Mass/Vol] 14.0 mg/dL Normal 7.0-18.0 [facility] Comment on above: Performed By: #### C MP #### [facility] [address] [place] [address] Dr. Michele Obrien Urea nitrogen/Creatinine [Mass ratio] 16.5 mg/mg Normal [facility] Comment on above: Performed By: #### C MP #### [facility] [address] [place] [address] Dr. Michele Obrien URINE MICROSCOPIC ONLYon BACTERIA TRACE Abnormal NONE SEEN [facility] Comment on above: Performed By: #### H IV12 #### [facility] [address] [place] [address] Dr. Michele Obrien Bacteria identified Cx Nom (U) NOT INDICATED Normal [facility] Comment on above: Performed By: #### H IV12 #### [facility] [address] [place] [address] Dr. Michele Obrien CAST NONE SEEN Normal NONE SEEN [facility] Comment on above: Performed By: #### H IV12 #### [facility] [address] [place] [address] Dr. Michele Obrien Crystals LM Nom (Urine sed) NONE SEEN Normal NONE SEEN [facility] Comment on above: Performed By: #### H IV12 #### [facility] [address] [place] [address] Dr. Michele Obrien Epithelial cells LM Ql (Urine sed) FEW Abnormal NONE SEEN /RARE [facility] Comment on above: Performed By: #### H IV12 #### [facility] [address] [place] [address] Dr. Michele Obrien MUCOUS TRACE Abnormal NONE SEEN [facility] Comment on above: Performed By: #### H IV12 #### [facility] [address] [place] [address] Dr. Michele Obrien RBC 20-50 Abnormal 0-2 [facility] Comment on above: Performed By: #### H IV12 #### [facility] [address] [place] [address] Dr. Michele Obrien WBC 0-2 Abnormal NONE SEEN [facility] Comment on above: Performed By: #### H IV12 #### [facility] [address] [place] [address] Dr. Michele Obrien HIV 1 AND 2 WITH REFLEXon HIV Screen 4th Generation wRfx Non-Reactive Normal Non Reactive [facility] Comment on above: Result Comment: HIV Negative HIV-1/HIV-2 antibodies and HIV-1 p24 antigen were NOT detected. There is no laboratory evidence of HIV infection. Performed By: #### H IV12 #### [facility] [address] [place] [address] Dr. Michele Obrien FERRITINon 10-16-2022 Ferritin [Mass/Vol] 6.0 ng/mL Critically low 6.2-137.0 [facility] Comment on above: Performed By: #### F ERR, FETIBC #### [facility] [address] [place] [address] Dr. Michele Obrien FREE T3on 10-16-2022 FREE T3 1.87 pg/mlL Critically low 2.18-3.98 [facility] Comment on above: Performed By: #### H IV12 #### [facility] [address] [place] [address] Dr. Michele Obrien HEMOGRAM AND PLATELon 2022 Hematocrit (Bld) [Volume fraction] 35.7 % Critically low 36.0-48.0 [facility] Comment on above: Performed By: #### H H #### [facility] [address] [place] [address] Dr. Michele Obrien Hemoglobin (Bld) [Mass/Vol] 10.4 g/dL Critically low 12.0-16.0 [facility] Comment on above: Performed By: #### H H #### [facility] [address] [place] [address] Dr. Mihcele Obrien MCH (RBC) [Entitic mass] 20.0 pg Critically low 26.7-34.0 [facility] Comment on above: Performed By: #### H H #### [facility] [address] [place] [address] Dr. Michele Obrien MCHC (RBC) [Mass/Vol] 29.1 g/dL Critically low 29.9-35.2 [facility] Comment on above: Performed By: #### H H #### [facility] [address] [address] [address] Michele Obrien MCV (RBC) [Entitic vol] 68.5 fL Critically low 81.0-99.0 [facility] Comment on above: Performed By: #### H H #### [facility] [address] [address] [address] Michele Obrien PLT 241 103/ul Normal 150-450 [facility] Comment on above: Performed By: #### H H #### [facility] [address] [place] [address] Dr. Michele Obrien RBC 5.21 106/ul Normal 4.20-5.40 [facility] Comment on above: Performed By: #### H H #### [facility] [address] [place] [address] Dr. Michele Obrien WBC 6.9 103/ul Normal 4.0-11.0 [facility] Comment on above: Performed By: #### H H #### [facility] [address] [place] [address] Dr. Michele Obrien IRON AND TIBCon 10-16-2022 % SATURATION 4.5 % Normal [facility] Comment on above: Performed By: #### F ERR, FETIBC #### [facility] [address] [place] [address] Dr. Michele Obrien Iron [Mass/Vol] 18.0 ug/dL Critically low 50.0-170.0 [facility] Comment on above: Performed By: #### F ERR, FETIBC #### [facility] [address] [place] [address] Dr. Michele Obrien TIBC DIRECT 396.0 ug/dL Normal 250.0-450.0 [facility] Comment on above: Performed By: #### F ERR, FETIBC #### [facility] [address] [place] [address] Dr. Michele Obrien TSH W/ REFLEX TO FT4on 10-16 TSH 3.577 uIU/mL Normal 0.358-3.740 [facility] Comment on above: Performed By: #### H IV12 #### [facility] [address] [place] [address] Dr. Michele Obrien VITAMIN Con 09-03-2022 Vitamin C 0.2 mg/dL Critically low 0.4-2.0 [facility] Comment on above: Result Comment: Li min C deficiency is generally defined as plasma or serum concentrations less than 0.2 mg/dL and levels between 0.2 and 0.4 mg/dL are considered low. Performed By: #### F ERR, FETIBC #### [facility] [address] [place] [address] Dr. Michele Obrien VITAMIN Aon 09-01-2022 Vitamin A 33.6 ug/dL Normal 18.9-57.3 [facility] Comment on above: Result Comment: Refe rence intervals for vitamin A determined from [facility] internal studies. Individuals with vitamin A less than 20 ug/dL are considered vitamin A deficient and those with serum concentrations less than 10 ug/dL are considered severely deficient. . This test was developed and its performance characteristics determined by [facility]. It has not been cleared or approved by the Food and Drug Administration. Performed By: #### V ITAMA #### [facility] [address] [place] [address] Dr. Michele Obrien VITAMIN Kodi 09-01-2022 Vitamin E (Alpha T) 11.9 mg/L Normal 5.9-19.4 [facility] Comment on above: Performed By: #### V ITAE #### [facility] [address] [place] [address] Dr. Michele Obrien Vitamin E (Gamma T) 1.5 mg/L Normal 0.7-4.9 [facility] Comment on above: Result Comment: Refe rence intervals for alpha and gamma-tocopherol determined from National Health and Nutrition Examination Survey, 6580-2051. Individuals with alpha-tocopherol levels less than 5.0 mg/L are considered vitamin E deficient. Performed By: #### V ITAE #### [facility] [address] [place] [address] Dr. Michele Obrien VITAMIN Garrett 08-26-2022 Vitamin K1 0.24 ng/mL Normal 0.10-2.20 [facility] Comment on above: Performed By: #### F ERR, FETIBC #### [facility] [address] [place] [address] Dr. Michele Obrien SELENIUM, PLASMAon Selenium, Serum/Plasma 110 ug/L Normal 93-198 [facility] Comment on above: Performed By: #### H IV12 #### [facility] [address] [place] [address] Dr. Michele Obrien VITAMIN B1 (THIAMINE)on 08-02 Vit. B1, Whole Blood 126.2 nmol/L Normal 66.5-200.0 [facility] Comment on above: Performed By: #### F ERR, FETIBC #### [facility] [address] [place] [address] Dr. Michele Obrien ZINC SERUM OR PLASMAon 08-23 Zinc, Plasma or Serum 69 ug/dL Normal 44-115 [facility] Comment on above: Result Comment: Dete ction Limit = 5 Performed By: #### H IV12 #### [facility] [address] [place] [address] Dr. Michele Obrien FERRITINon 08-20-2022 Ferritin [Mass/Vol] 5.0 ng/mL Critically low 6.2-137.0 [facility] Comment on above: Performed By: #### F ERR, FETIBC #### [facility] [address] [place] [address] Dr. Michele Obrien FREE T4on 08-20-2022 Free T4 [Mass/Vol] 1.01 ng/dL Normal 0.76-1.46 [facility] Comment on above: Performed By: #### H IV12 #### [facility] [address] [place] [address] Dr. Michele Obrien GLYCOHEMOGLOBIN A1Con 2022 ADA RECOMMENDATION SEE BELOW Normal [facility] Comment on above: Result Comment: ADA RECOMMENDED LIMIT 4.0 - 6.0 ADA THERAPEUTIC TARGET < 7.0 ACTION SUGGESTED > 7.0 Performed By: #### H IV12 #### [facility] [address] [address] [address] Michele Obrien Glucose [Mass/Vol] 80 mg/dL Normal [facility] Comment on above: Performed By: #### H IV12 #### [facility] [address] [place] [address] Dr. Michele Obrien HbA1c (Bld) [Mass fraction] 4.4 % Critically low 4.5-6.2 [facility] Comment on above: Performed By: #### H IV12 #### [facility] [address] [place] [address] Dr. Michele Obrien HEMOGRAM AND PLATELon 2022 Hematocrit (Bld) [Volume fraction] 29.3 % Critically low 36.0-48.0 [facility] Comment on above: Performed By: #### H IV12 #### [facility] [address] [place] [address] Dr. Michele Obrien Hemoglobin (Bld) [Mass/Vol] 9.3 g/dL Critically low 12.0-16.0 [facility] Comment on above: Performed By: #### H IV12 #### [facility] [address] [place] [address] Dr. Michele Obrien MCH (RBC) [Entitic mass] 20.1 pg Critically low 26.7-34.0 [facility] Comment on above: Performed By: #### H IV12 #### [facility] [address] [place] [address] Dr. Michele Obrien MCHC (RBC) [Mass/Vol] 31.7 g/dL Normal 29.9-35.2 [facility] Comment on above: Performed By: #### H IV12 #### [facility] [address] [address] [address] Michele Obrien MCV (RBC) [Entitic vol] 63.4 fL Critically low 81.0-99.0 [facility] Comment on above: Performed By: #### H IV12 #### [facility] [address] [place] [address] Dr. Michele Obrien PLT 213 103/ul Normal 150-450 [facility] Comment on above: Performed By: #### H IV12 #### [facility] [address] [address] [address] Michele Obrien RBC 4.62 106/ul Normal 4.20-5.40 [facility] Comment on above: Performed By: #### H IV12 #### [facility] [address] [address] [address] Michele Obrien WBC 5.8 103/ul Normal 4.0-11.0 [facility] Comment on above: Performed By: #### H IV12 #### [facility] [address] [address] [address] Michele Obrien IRON AND TIBCon 08-20-2022 % SATURATION 6.5 % Normal [facility] Comment on above: Performed By: #### F ERR, FETIBC #### [facility] [address] [address] [address] Michele Obrien Iron [Mass/Vol] 22.0 ug/dL Critically low 50.0-170.0 [facility] Comment on above: Performed By: #### F ERR, FETIBC #### [facility] [address] [address] [address] Michele Obrien TIBC DIRECT 340.0 ug/dL Normal 250.0-450.0 [facility] Comment on above: Performed By: #### F ERR, FETIBC #### [facility] [address] [address] [address] Michele Obrien LIPID PROFILEon 08-20-2022 CHOL-HDL RATIO NORM SEE BELOW Normal [facility] Comment on above: Result Comment: 3.3 - 4.4 LOW RISK 4.4 - 7.1 AVERAGE RISK 7.1 - 11.0 MODERATE RISK >11.0 HIGH RISK Performed By: #### F ERR, FETIBC #### [facility] [address] [address] [address] Michele Obrien Cholesterol [Mass/Vol] 146 mg/dL Normal <=200 [facility] Comment on above: Performed By: #### F ERR, FETIBC #### [facility] [address] [address] [address] Michele Obrien Cholesterol in HDL [Mass/Vol] 58 mg/dL Normal 40-60 [facility] Comment on above: Performed By: #### F ERR, FETIBC #### [facility] [address] [address] [address] Michele Obrien Cholesterol in LDL [Mass/Vol] 66.8 mg/dL Normal [facility] Comment on above: Performed By: #### F ERR, FETIBC #### [facility] [address] [address] [address] Michele Obrien Cholesterol.total/Ch olesterol in HDL [Mass ratio] 2.5 {ratio} Normal [facility] Comment on above: Performed By: #### F ERR, FETIBC #### [facility] [address] [address] [address] Michele Obrien HDL NORMAL > or = 60 mg/dl - LOW CARDIOVASCULAR RISK <40 mg/dl - HIGH CARDIOVASCULAR RISK Normal [facility] Comment on above: Performed By: #### F ERR, FETIBC #### [facility] [address] [address] [address] Michele Obrien LDL CALC NORMAL SEE BELOW Normal [facility] Comment on above: Result Comment: <100 mg/dl OPTIMAL 100 - 129 mg/dl NEAR OR ABOVE OPTIMAL 130 - 159 mg/dl BORDERLINE HIGH 160 - 189 mg/dl HIGH >190 mg/dl VERY HIGH Performed By: #### F ERR, FETIBC #### [facility] [address] [address] [address] Michele Obrien Triglyceride [Mass/Vol] 106 mg/dL Normal <=150 [facility] Comment on above: Performed By: #### F ERR, FETIBC #### [facility] [address] [address] [address] Michele Obrien VLDL CALC 21.2 mg/dL Normal [facility] Comment on above: Performed By: #### F ERR, FETIBC #### [facility] [address] [address] [address] Michele Obrien PROF 14(COMP METB)on 023 Albumin [Mass/Vol] 3.5 g/dL Normal 3.4-5.0 [facility] Comment on above: Performed By: #### F ERR, FETIBC #### [facility] [address] [address] [address] Michele Obrien Albumin/Globulin [Mass ratio] 1.2 {ratio} Normal [facility] Comment on above: Performed By: #### F ERR, FETIBC #### [facility] [address] [address] [address] Michele Obrien ALP [Catalytic activity/Vol] 76 U/L Normal 46-116 [facility] Comment on above: Performed By: #### F ERR, FETIBC #### [facility] [address] [address] [address] Michele Obrien ALT [Catalytic activity/Vol] 16 U/L Normal 14-59 [facility] Comment on above: Performed By: #### F ERR, FETIBC #### [facility] [address] [address] [address] Michele Obrien Anion gap [Moles/Vol] 10.0 mmol/L Normal [facility] Comment on above: Performed By: #### F ERR, FETIBC #### [facility] [address] [address] [address] Michele Obrien AST [Catalytic activity/Vol] 16 U/L Normal 15-37 [facility] Comment on above: Performed By: #### F ERR, FETIBC #### [facility] [address] [address] [address] Michele Obrien Bilirubin [Mass/Vol] 0.3 mg/dL Normal 0.2-1.0 [facility] Comment on above: Performed By: #### F ERR, FETIBC #### [facility] [address] [address] [address] Michele Obrien Calcium [Mass/Vol] 8.5 mg/dL Normal 8.5-10.1 [facility] Comment on above: Performed By: #### F ERR, FETIBC #### [facility] [address] [address] [address] Michele Obrien Chloride [Moles/Vol] 106 mmol/L Normal 98-107 [facility] Comment on above: Performed By: #### F ERR, FETIBC #### [facility] [address] [address] [address] Michele Obrien CO2 [Moles/Vol] 30.8 mmol/L Normal 21.0-32.0 [facility] Comment on above: Performed By: #### F ERR, FETIBC #### [facility] [address] [address] [address] Michele Obrien Creatinine [Mass/Vol] 0.68 mg/dL Normal 0.55-1.02 [facility] Comment on above: Performed By: #### F ERR, FETIBC #### [facility] [address] [place] [address] Dr. Michele Obrien EGFR-AF BRUNEIAN >60 Normal >=60 [facility] Comment on above: Performed By: #### F ERR, FETIBC #### [facility] [address] [place] [address] Dr. Michele Obrien EGFR-NON AF BRUNEIAN >60 Normal >=60 [facility] Comment on above: Performed By: #### F ERR, FETIBC #### [facility] [address] [place] [address] Dr. Michele Obrien Globulin (S) [Mass/Vol] 2.8 g/dL Normal [facility] Comment on above: Performed By: #### F ERR, FETIBC #### [facility] [address] [address] [address] Michele Obrien Glucose [Mass/Vol] 77 mg/dL Normal 74-106 [facility] Comment on above: Performed By: #### F ERR, FETIBC #### [facility] [address] [place] [address] Dr. Michele Obrien Potassium [Moles/Vol] 3.8 mmol/L Normal 3.5-5.1 [facility] Comment on above: Performed By: #### F ERR, FETIBC #### [facility] [address] [place] [address] Dr. Michele Obrien Protein [Mass/Vol] 6.3 g/dL Critically low 6.4-8.2 [facility] Comment on above: Performed By: #### F ERR, FETIBC #### [facility] [address] [place] [address] Dr. Michele Obrien Sodium [Moles/Vol] 143 mmol/L Normal 136-145 [facility] Comment on above: Performed By: #### F ERR, FETIBC #### [facility] [address] [place] [address] Dr. Michele Obrien Urea nitrogen [Mass/Vol] 10.0 mg/dL Normal 7.0-18.0 [facility] Comment on above: Performed By: #### F ERR, FETIBC #### [facility] [address] [place] [address] Dr. Michele Obrien Urea nitrogen/Creatinine [Mass ratio] 14.7 mg/mg Normal [facility] Comment on above: Performed By: #### F ERR, FETIBC #### [facility] [address] [place] [address] Dr. Michele Obrien TSHon 08-20-2022 TSH 4.302 uIU/mL Critically high 0.358-3.740 [facility] Comment on above: Performed By: #### F ERR, FETIBC #### [facility] [address] [place] [address] Dr. Michele Obrien VIT B12 AND FOLATEon 023 Cobalamin (Vitamin B12) [Mass/Vol] 433.0 pg/mL Normal 193.0-986.0 [facility] Comment on above: Performed By: #### B 12FOL, VITAD #### [facility] [address] [place] [address] Dr. Michele Obrien FOLATE 18.00 ng/mL Normal 8.60-58.90 [facility] Comment on above: Performed By: #### B 12FOL, VITAD #### [facility] [address] [address] [address] Michele Obrien VITAMIN D 25 OHon 08-20-2022 VIT D 25-OH 33.4 ng/mL Normal [facility] Comment on above: Performed By: #### B 12FOL, VITAD #### [facility] [address] [address] [address] Michele Obrien VIT D RANGES SEE BELOW Normal [facility] Comment on above: Result Comment: <20 ng/mL Vit D deficient 20 - <30 ng/mL Vit D insufficient 30 - 100 ng/mL Vit D sufficient >100 ng/mL Potential Toxicity Performed By: #### B 12FOL, VITAD #### [facility] [address] [address] [address] Michele Obrien Vital Signs Date Time Vital Sign Value Performing Clinician Facility 09-22-2023 09:42-0500 Body mass index (BMI) [Ratio] 44.85 kg/m2 Héctor Aguilar MD Work Phone: [facility] 09-22-2023 09:42-0500 Body weight 141.79 kg Héctor Aguilar MD Work Phone: [facility] 09-22-2023 09:42-0500 Diastolic blood pressure 74 mm[Hg] Héctor Aguilar MD Work Phone: [facility] 09-22-2023 09:42-0500 Heart rate 82 /min Héctor Aguilar MD Work Phone: [facility] 09-22-2023 09:42-0500 Systolic blood pressure 123 mm[Hg] Héctor Aguilar MD Work Phone: [facility] 09-15-2023 11:30-0500 Body mass index (BMI) [Ratio] 43.52 kg/m2 Kassandra ALBERTO Work Phone: [facility] 09-15-2023 11:30-0500 Body weight 141.52 kg Kassandra ALBERTO Work Phone: [facility] 09-15-2023 11:30-0500 Diastolic blood pressure 80 mm[Hg] Kassandra ALBERTO Work Phone: [facility] 09-15-2023 11:30-0500 Systolic blood pressure 130 mm[Hg] Kassandra ALBERTO Work Phone: [facility] 05-19-2023 15:30-0400 Body weight 128.05 kg Denys Barriosormack Other [facility] [employer] Other 05-19-2023 15:30-0400 Diastolic blood pressure 86 mm[Hg] Denys Selfack Other [facility] [employer] Other 05-19-2023 15:30-0400 Systolic blood pressure 127 mm[Hg] Denys Selfack Other [facility] [employer] Other 03-15-2023 10:48-0400 Diastolic blood pressure 80 mm[Hg] [employer] Wilber Shammo Work Phone: [facility] 03-15-2023 10:48-0400 Heart rate 63 /min [employer] Wilber Shammo Work Phone: [facility] 03-15-2023 10:48-0400 Respiratory rate 16 /min [employer] Wilber Shammo Work Phone: [facility] 03-15-2023 10:48-0400 SaO2% (BldA) [Mass fraction] 99 % [employer] Wilber Shammo Work Phone: [facility] 03-15-2023 10:48-0400 Systolic blood pressure 126 mm[Hg] [employer] Wilber Shammo Work Phone: [facility] 03-15-2023 08:43-0400 Body height 180.34 cm [employer] Wilber Shammo Work Phone: [facility] 03-15-2023 08:43-0400 Body temperature 98.2 [degF] [employer] Wilber Shammo Work Phone: [facility] 03-15-2023 08:43-0400 Body weight 129.27 kg [employer] Wilber More Work Phone: [facility] 01-17-2023 10:00-0400 Body weight 127.01 kg Denys Landa Other [employer] Other 01-17-2023 10:00-0400 Diastolic blood pressure 85 mm[Hg] Denys Landa Other [employer] [facility] [employer] Other 01-17-2023 10:00-0400 Systolic blood pressure 125 mm[Hg] Denys Landa Other [employer] Other Encounters Encounter Date Encounter Type Care Provider Facility Start: 11-30-2023 End: 11-30-2023 ambulatory KASSANDRA LINARES Not Available Start: 11-15-2023 End: 11-15-2023 ambulatory ADRIAN PARIS Not Available Start: 11-02-2023 End: 11-02-2023 ambulatory HÉCTOR AGUILAR [facility] Start: 11-02-2023 End: 11-02-2023 Office outpatient visit 15 minutes Fred Chavez MD Work Phone: [facility] Comment on above: Essential hypertensi on affecting in second trimester (Primary Dx) Start: 10-31-2023 End: 10-31-2023 ambulatory KASSANDRA LINARES Not Available Start: 10-18-2023 End: 10-19-2023 ambulatory ADRIAN R PARIS [facility] Start: 10-18-2023 Documentation procedure Fred Chavez MD Work Phone: [facility] Start: 10-13-2023 End: 10-13-2023 ambulatory ADRIAN PARIS Not Available Start: 09-22-2023 End: 09-23-2023 Orders Only Rossy Carrington RN [facility] Comment on above: Pre-existing essenti al hypertension during in second trimester (Primary Dx); Advanced maternal age in multigravida, second trimester; Hypothyroid in , antepartum Start: 09-22-2023 End: 09-22-2023 Office consultation new/estab patient 60 min Héctor Aguilar MD Work Phone: [facility] Comment on above: Essential hypertensi on affecting in second trimester (Primary Dx) Start: 09-15-2023 End: 09-15-2023 ambulatory KASSANDRA LINARES Not Available Start: 09-15-2023 End: 09-15-2023 flow sheet Kassandra ALBERTO Work Phone: [facility] Comment on above: Second trimester pre gnancy; Diabetes mellitus screening; 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); Hypothyroidism, unspecified type (CMS/HCC) Start: 08-24-2023 Chart abstracting Liz Bee MD Work Phone: [facility] Start: 08-19-2023 Telephone encounter Janae [facility] [place] Start: 08-18-2023 End: 08-18-2023 ambulatory ADRIAN MIGUEL Not Available Start: 08-03-2023 ambulatory WILBER BONILLAMO Facility:[facility] Start: 07-21-2023 End: 07-21-2023 ambulatory KASSANDRA LINARES Not Available Start: 06-13-2023 End: 06-13-2023 ambulatory ADRIAN MIGUEL Not Available Start: 05-19-2023 End: 05-19-2023 ambulatory Denys Landa Other [employer] Other Start: 05-19-2023 Office outpatient vi sit 15 minutes Denys Landa [facility] Start: 03-15-2023 End: 03-15-2023 ambulatory Denys Landa Facility:[facility] Start: 03-15-2023 End: 03-15-2023 Admission to same day surgery center [facility] Wilber More Work Phone: [facility] Work Phone: Start: 03-15-2023 End: 03-15-2023 ambulatory [employer] Wilber T Shammo Work Phone: [facility] Work Phone: Start: 01-26-2023 End: 01-27-2023 ambulatory WILBER SHAMMO Facility:[facility] Start: 01-26-2023 End: 01-27-2023 ambulatory Alyson Chiu Facility:[facility] Start: 01-26-2023 End: 01-26-2023 Lab Drop off Alyson Chiu [facility] Start: 01-26-2023 End: 01-26-2023 Patient encounter procedure Alyson Chiu [facility] Start: 01-20-2023 ambulatory WILBER SHAMMO Facility:[facility] Start: 01-17-2023 End: 01-17-2023 ambulatory Denys Landa Other [employer] Other Start: 01-17-2023 Office outpatient ne w 45 minutes Denys Landa [facility] Start: 12-28-2022 End: 12-28-2022 ambulatory LUKE BOWENS . Facility: Start: 10-16-2022 End: 10-17-2022 ambulatory WILBER SHAMMO Facility:[facility] Start: 08-25-2022 Encounter for genera l adult medical examination without abnormal findings WILBER SHAMMO [facility] Start: 08-20-2022 End: 08-21-2022 ambulatory WILBER SHAMMO Facility:[facility] Start: 08-20-2022 End: 08-21-2022 Encounter for general adult medical examination without abnormal findings WILBER SHAMMO Facility:[facility] Procedures Date Procedure Procedure Detail Performing Clinician Start: 09-15-2023 Urnls dip stick/tablet rgnt non-auto w/o micrscp Kassandra ALBERTO Work Phone: Start: 06-08-2023 FREE CELL DNA (NON-[place]) Not In System Ref Prov Start: 03-15-2023 Esophagogastroduodenoscopy [employer] Wilber More Work Phone: Start: 08-01-2016 Appendectomy Alyson Chiu Start: 08-01-2016 Gastric sleeve Alyson Chiu Start: 08-01-2005 Cholecystectomy Alyson Chiu Arthroplasty of knee Alyson chamberlain Comment on above: Meniscus repair section Alyson Chiu Comment on above: x2 Plan of Treatment Date Care Activity Detail Author Start: 09-22-2024 Adult BMI Screening Adult BMI Screen ing [facility] Start: 09-22-2024 Tobacco Screening Tobacco Screening [facility] Start: 09-22-2024 End: 09-22-2024 US MFM with or without consult US MFM with or without consult Imaging Routine Pre-existing essential hypertension during in second trimester Advanced maternal age in multigravida, second trimester Hypothyroid in , antepartum Expected: 09/22/2024 (Approximate), Expires: 09/22/2024 [facility] Work Phone: Comment on above: Expected: 09/22/2024 (Approximate), Expires: 09/22/2024 Start: 04-01-2024 Influenza vaccination Influenza Vacc ine [facility] Start: 11-12-2023 Adult BMI Screening Adult BMI Screen ing [facility] Start: 11-02-2023 End: 11-02-2023 Telemedicine consultation with patient 11/02/2023 11:30 AM EDT Telemedicine Maternal- Medicine at [facility] [address] [place] [phone] Fred Chavez MD [address] [place], [place] [id number] Héctor Aguilar MD [address] [facility], [address] [place] [address] Maternal- Medicine at [facility] Start: 10-18-2023 End: 10-18-2023 Telemedicine consultation with patient 10/18/2023 1:30 PM EDT Telemedicine Maternal- Medicine at [facility] [address] [place] [address] Fred Chavez MD [address] [place] [address] Maternal- Medicine at [facility] Start: 10-18-2023 End: 10-18-2023 Patient encounter procedure 10/18/2023 12:30 PM EDT Appointment [facility] - Ultrasound [address] [place] [address] [facility] - Ultrasound Start: 10-13-2023 End: 10-13-2023 Patient encounter procedure 10/13/2023 10:50 AM EDT Routine [facility] [address] [place] [phone] Adrian Miguel, [address] [place] [address] [facility] Start: 09-15-2023 End: 09-15-2024 CBC panel - Blood by Automated count CBC Lab Routine Diabetes mellitus screening Expected: 09/15/2023 (Approximate), Expires: 09/15/2024 [facility] Work Phone: Comment on above: Expected: 09/15/2023 (Approximate), Expires: 09/15/2024 Start: 09-15-2023 End: 09-15-2024 Measurement of glucose 1 hour after glucose challenge for glucose tolerance test Glucose tolerance, 1 hour Lab Routine Diabetes mellitus screening Expected: 09/15/2023 (Approximate), Expires: 09/15/2024 [facility] Healthcare Comment on above: Expected: 09/15/2023 (Approximate), Expires: 09/15/2024 Start: 09-15-2023 End: 09-15-2024 Thyrotropin [Units/volume] in Serum or Plasma TSH Lab Routine Hypothyroidism, unspecified type (CMS/HCC) Expected: 09/15/2023 (Approximate), Expires: 09/15/2024 [facility] Healthcare Comment on above: Expected: 09/15/2023 (Approximate), Expires: 09/15/2024 Start: 09-14-2023 End: 09-14-2023 Patient encounter procedure [facility] Start: 04-01-2023 Influenza vaccination Influenza Vacc ine [facility] Start: 03-15-2023 [facility] Start: 11-02-2007 Screening for malign ant neoplasm of cervix Pap Smear [facility] Start: 2005 DTaP,Tdap and Td Vaccines (1 - Tdap) DTaP,Tdap and Td Vaccines (1 - Tdap) [facility] Start: 2004 Adult BMI Follow Up Plan Adult BMI Follow Up Plan [facility] Start: 1998 Depression Screening Depression Scre ening [facility] Start: 1998 Tobacco Screening Tobacco Screening [facility] Hemoglobin A1c/Hemoglobin.total in Blood Hemoglobin A1c Lab Routine Diabetes mellitus screening Ordered: 09/15/2023 [facility] Comment on above: Ordered: 09/15/2023 Patient Education Hiatal hernia Diverticulosis [facility] Work Phone: Immunizations Immunization Date Immunization Notes Care Provider Alice calhoun 06-01-2022 influenza virus vaccine, unspecified formulation Alyson Chiu [facility] Payers Date Payer Category Payer Self-pay 2022 [employer] ( and others) [id number] 2022 [employer] ( and others) [id number] 2022 [facility] ( and others) [id number] 1985 Unknown [id number] 2.16.840.1.360001.3.579.2.593 1986 Unknown [id number] 2.16.840.1.169751.3.579.2.593 1986 Unknown [id number] 2.16.840.1.236522.3.579.2.593 1986 Unknown [id number] 2.16.840.1.907997.3.579.2.727 1986 Unknown [id number] 2.16.840.1.508189.3.579.2.727 1986 Unknown [id number] 2.16.840.1.474750.3.579.2.727 1986 Unknown [id number] 2.16.840.1.454323.3.579.2.1286 1986 Unknown [id number] 2.16.840.1.575271.3.579.2.1286 1986 Unknown [id number] 2.16.840.1.511994.3.579.2.1286 1986 Unknown [id number] 2.16.840.1.048784.3.579.2.1286 1986 Unknown [id number] 2.16.840.1.831027.3.579.2.1259 1986 Unknown [id number] 2.16.840.1.200448.3.579.2.1259 1986 Unknown [id number] 2.16.840.1.485539.3.579.2.1259 1986 Unknown [id number] 2.16.840.1.648133.3.579.2.1259 1986 Unknown [id number] 2.16.840.1.570675.3.579.2.1259 1986 Unknown [id number] 2.16.840.1.812017.3.579.2.1259 1986 Unknown [id number] 2.16.840.1.804623.3.579.2.1259 1986 Unknown [id number] 2.16.840.1.355778.3.579.2.1259 1959 [employer] ( and others) [id number] Unknown [id number] 2.16.840.1.687034.3.579.2.531 Social History Date Type Detail Facility Start: 08-24-2023 End: 09-22-2023 Sex Assigned At [facility] Start: 01-26-2023 Tobacco smoking status Ex-smoker (finding) [facility] Start: 03-15-2023 Tobacco smoking status NHIS Smoker (finding) [facility] Start: 1985 Sex Assigned At Female [facility] Tobacco smoking stat us DCIS Tobacco smoking consumption unknown [facility] Start: 1985 Sex Assigned At Not on file [facility] Start: 01-03-2023 End: 08-24-2023 Tobacco smoking status [facility] Never smoked tobacco [facility] Start: 01-03-2023 End: 08-24-2023 Tobacco use and exposure Smokeless tobacco non-user [facility] Start: 08-24-2023 End: 09-22-2023 Alcohol intake Ex-drinker (finding) [facility] Start: 08-24-2023 End: 09-22-2023 History of Social function [facility] Start: 04-11-2023 [facility] How often to you hav [...] 01-26-2023 Functional Status No [facility] Clinical Notes 01-17-2023 to 11-02-2023 Héctor [...] Depression Hypertension Hypothyroidism Kidney stones Migraines Seizure ([facility]) REVIEW OF SYSTEMS: Head and Neck: [...] Visit via Real-time Synchronous Audiovisual Provider Location: [facility]ER[facility]- MEDICINE AT [address] [phone] Patient Location: Patient's home Patient Location Leather Scrubber: None Video Visit Consent Statement: I discussed [...] that there are some limitations compared to [id number] evaluations. We elected to proceed. documented in this encounter [facility] 10-18-2023 History of Presen t illness [...] telehealth rescheduled visit. Fred Chavez MD Professor, [facility] Maternal Medicine (we called the patient ourselves and were not able to successfully connect with her) documented in this encounter [facility] Status Overload [facility] 09-22-2023 History of Presen t illness Narrative Headache/epigastric pain/blurry vision/swelling? No Cramping/contractions? No Abnormal vaginal discharge? No Spotting/vaginal bleeding? No Loss of fluid like your water may have broken? No Cats in the home? No Do you change the litter box? N/A Flu vaccine? No Genetic testing done this here or other office? Yes Have you been seen here at [facility] in a previous ? No Recent ER visits or hospitalizations? No Bring blood sugar log or meter with you today? (Please bring them with you for every visit at [facility]) N/A Traveled outside the country in the [...] and the other consultants, we search on [employer] and all the available care everywhere epic I did review all the imaging studies of the patient available on EMR, ordered by the primary care physician and the other communication consultant HABITS: Patient activity no restrictions, diet [...] for completion of targeted anatomy at our [facility] site. 5. Serial growth ultrasounds every [...] patient is in complete care of her hide dropper. Patient does have ultrasound office visit scheduled with us Thank you for allowing me to participate in Lisa Allison . If there any questions please do not hesitate to contact us. Sincerely, HÉCTOR AGUILAR MD documented in this encounter [facility] 09-15-2023 History of Presen t illness Narrative [...] hour glucose order to have done at [facility]. Follow Up: Patient is to return [...] REMY Valdes documented in this encounter [facility] 08-19-2023 Miscellaneous Notes Formattin g of this note might be different from the original. LEFT A MESSAGE TO SCHEDULE USN AND CONSULT. 08/19/2023 104 documented in this encounter [facility] [employer] 08-19-2023 Telephone encount er Note LEFT A MESSAGE TO SCHEDULE USN AND CONSULT. 08/19/2023 104 [facility] [employer] 05-19-2023 Evaluation note Encounter Date Diagnosis [...] start metamucile and probiotics RTO 3 months [employer] [facility] Discharge instructions Patient Education 01/26/2023 [...] include: ?8 oz (237 mL) of milk, cfsfeea-qwecxwslivgi-dfqcg milk, and calcium- fortifiedfruit juice. Calcium-fortified means [...] ?Spinach (cooked), rhubarb, beets, sweet potatoes, and Malian chard. ?Peanuts. ?Potato chips, saudi arabian fries, and baked potatoes with skin on. ?Nuts and nut products. ?Chocolate. If you regularly take a diuretic medicine, make sure to eat at least 1 or 2 servings of fruits or vegetables that are high in potassium each day. These include: ?Avocado. ?Banana. ?[place], prune, carrot, or tomato juice. ?Baked potato. [...] magnesium, fish oil, or vitamin B6. Take ntlo-jxt-vxyonpt and prescription medicines only as told by [...] Casseroles. Pizza. Lasagna. Frozen meals. Potato chips. Bermudian fries. The items listed above may not [...] provider. Document Revised: 03/29/2022 Document Reviewed: 03/29/2022 [employer] Patient Education 2022 [employer] Follow Up Care 12/28/2022 12:57:40 With:Aram RUSSELL, Alyson Burdick URAjith, URO Address: When:Within 6 Month(s) Comments:marc/ DEYA [employer] YAMILETH [facility] 06-19-2023 Evaluation note* Encounter Date Diagnosis Assessment Notes Treatment Notes Treatment Clinical Notes Dec, Iron deficiency anemia (ICD-10 - D50.9) Will proceed with EGD Will request recent lab work done at [place]. Dec, GERD (gastroesophageal reflux disease) (ICD-10 - K21.9) Patient to continue on Omeprazole 40mg Dec, Diarrhea (ICD-10 - R19.7) Will proceed with Colonoscopy. [employer] Other Evaluation + Plan note Future Appointments Appointment Date:08/03/2023 10:00:00 AM Scheduled Provider:Alyson Chiu MD Location:[facility] Appointment Type:URO Office Visit [facility] evaluation + Plan note Future Appointments Appointment Date:08/03/2023 10:00:00 AM Scheduled Provider:Alyson Chiu MD Location:[facility] Appointment Type:URO Office Visit Diagnostic Tests Pending * Calculi Analysis [facility] Diagnosis Onset Date Resolution Status Iron deficiency anemia [facility] Work Phone: Evaluation note* Diagnosis Second trimester state, incidental Diabetes mellitus screening Screening for diabetes mellitus 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) Hypothyroidism, unspecified type (CMS/HCC) documented in this encounter [facility] HealthcareEvaluation note* Diagnosis Essential hypertension affecting in second trimester- Primary [facility] Diagnosis Pre-existing essential hypertension during in second trimester- Primary Advanced maternal age in multigravida, second trimester Hypothyroid in , antepartum [facility] Diagnosis Essential hypertension affecting in second trimester- Primary [facility] N[facility]ative - Reported* [...] left knee meniscus Hospitalization History see above [employer] Other Hospital course Narrative No data available for this section [facility] Discharge instructions No data available for this section [facility] Discharge instructions Additional Instructions DISCHARGE INSTRUCTIONS FOR [...] if you have any problems. -[facility] number [phone] Work Phone: InstructionsNot on filedocumented in this encounter [facility] SystemInstructionsNot on filedocumented in this encounter [facility] SystemInstructionsNot on filedocumented in this encounter [facility] on filedocumented in this encounter [facility]ructionsNot on filedocumented in this encounter [facility]ructionsNot on filedocumented in this encounter [facility] No data available for this section [facility] Summary Purpose Family History No Family History [...] consult Héctor Aguilar MD [address] [facility] [address] [place] [address] [facility] Maternal Med [address] [place] [address] Referral ID Status Reason Start Date Expiration Date V isits Requested Visits Authorized [id number] Pending Review 09/22/2023 09/21/2024 1 1 Additional Source Comments INFORMATION SOURCE (unrecogn ized section and content) DATE CREATED AUTHOR 01/07/[address] [facility] DATE CREATED AUTHOR AUTHOR'S ORGANIZ ATION 03/17/2023 [facility] DATE CREATED AUTHOR AUTHOR'S ORGANIZ ATION 08/05/2023 [facility] DATE CREATED AUTHOR AUTHOR'S ORGANIZ ATION 10/19/2023 [facility] DATE CREATED AUTHOR AUTHOR'S ORGANIZ ATION 11/03/2023 [facility] DATE CREATED AUTHOR AUTHOR'S ORGANJEREMIAS ATION 12/01/2023 [facility] dical Specialists EPIC REASON FOR VISIT (unrecogniz ed section and content) Reason Comments Routine Visit Reason Comments Advanced Maternal Age Chronic Hypertension Hypothyroidism Patient Care team informatio n (unrecognized section and content) Team Status: Active Member Role Status Dates Wilber More , [facility] Primary Care Provider Active Team Status: Inactive Member Role Status Dates Denys Landa MD Attending Provider Active Wilber More [facility] Primary Care Provider Active Relief Pilot Relationship Specialty Start Date End Date No Pcp, [place] [address] PCP - General Family Medicine 10/18/23 Relief Pilot Relationship Specialty Start Date End Date No Pcp, [place] [address] PCP - General Family Medicine 10/18/23 FOR [...] BE BASED ON THE PRIMARY CLINICAL RECORDS. [facility] [employer] provides no warranty or guarantee of the accuracy or completeness of information in this document.
--- NOTE | 2023-12-09 09:30 | US_ITS ---
[address] [address] Patient Name: TIFFANI GROSSMAN MRN: [id number] date: 1985 Sex: F Assigned Patient Location: [facility] Current Patient Location: [facility] Accession/Order Number: [id number] Exam Date: 12/09/2023 09:34 Report Date: 12/09/2023 10:19 At the request of: YOAN TOLEDO Procedure: US OB BPP w non-stress EXAMINATION: US OB BPP w non-stress HISTORY: HYPOTHYROIDISM E03.9 COMPARISON: Ultrasound OB biophysical 12/02/2023 TECHNIQUE: Ultrasound biophysical profile was performed in the radiology department. BREATHING MOVEMENTS: 2.0 GROSS BODY MOVEMENTS: 2.0 TONE: 2.0 QUALITATIVE AMNIOTIC FLUID VOLUME: 2.0 PRESENTATION: CEPHALIC HEART RATE: 133.7 bpm bpm. AMNIOTIC FLUID VOLUME: 10.0 cm GESTATIONAL AGE: 36 weeks 4 days CONCLUSION: Total biophysical profile score 8.0. Electronically authenticated by: JOIE AYALA Date: 12/09/2023 10:19
[2023-12-09 10:06] VITALS: BP 129/69; PULSE 86
== END 2023-12-09 10:32 | disposition home or self-care (01) ==
LOC: US 07:15 → FBC 09:29
PROVIDERS: PCP Nurse Practitioner Primary Care; Visit Provider Obstetrics & Gynecology
DX: E03.9 Hypothyroidism, unspecified (principal); Z3A.36 36 weeks gestation of pregnancy
CPT/HCPCS: 76818

== ENCOUNTER 2023-12-12 05:38 | Inpatient (IN) | payer OTHER, SELFPAY ==
[2023-12-12] VITALS (37 sets, daily range): BP systolic 109–139; BP diastolic 62–87; PULSE 73–97; TEMP 36.1–37; O2SAT 93–98
--- OUTSIDE RECORDS SUMMARY | 2023-12-12 05:41 | XMS_ITS | CCD ---
Author Organization [facility] Care Team Providers Care Transportation Services Representative Name Role Phone KWAN ., LUKE Admitting [...] SHAMMO, WILBER Consulting Unavailable Denys Landa Unavailable [phone] SHAMMO, WILBER TOMASA Primary Care Physician MD Denys Landa Attending Provider Shammo, [facility] Wilber T Primary Care Provider [phone] Denys aLnda Attending Unavailabl e Denys Landa Admitting Unavailabl [...] NO PCP, NO PCP Primary Care Unavailable STERLING AGUILAR Attending Unavailable PARIS, YONA R Referring Unavailable NO PCP, NO PCP Primary Care Unavailable DANDY MIGUELY R Referring Unavailable STERLING AGUILAR Attending Unavailable PARIS, YOAN R Referring Unavailable PARIS, YOAN Attending Unavailable MILAGROS, KASSANDRA Attending Unavailable PARIS, YOAN Attending Unavailable MILAGROS, KASSANDRA Attending Unavailable PARIS, YOAN Attending Unavailable MILAGROS, KASSANDRA Attending Unavailable PARIS, YOAN Attending Unavailable MILAGROS, KASSANDRA Attending Unavailable YOAN MIGUEL Attending Unavailable Allergies Allergy Classification Reported Allergen(s) Allergy Type Date of Onset Reaction(s) Facility (3 sources) Penicillin Drug Allergy 3 Unknown [facility] (15 sources) Penicillins; Translations: [penicillins] Allergy to substance 3 Anaphylaxis (disorder), Anaphylaxis, Unknown [facility] (7 sources) topiramate; Translations: [TOPIRAMATE] Drug Allergy 4 [facility] (2 sources) Penicillin G Drug Allergy 3 Unknown [facility] (2 sources) Topiramate Allergy to [...] Start: 01-26-2023 take 1 capsule by mo ut once daily levothyroxine 137 mcg (0.137 mg) [...] 01/26/23 Status: Ordered take 1 tablet by [facility] every twelve hours Meclizine HCl 25 [...] Active take 1 capsule by mo [facility] once daily Metoprolol Succinate 100 MG [...] Negative Negative - 4(70) +++ mg/dL [facility] Blood, UA Negative Negative - 50 Maikol/mcL [facility] Clarity, UA Clear [facility] Color, UA Yellow [facility] Glucose, UA Negative Negative - 2000(110) ++++ mg/dL [facility] Interpretation and review of laboratory results Abnormal [facility] Ketones, UA Negative Negative - 160(16) ++++ mg/dL [facility] Leukocytes, UA Negative Negative - 500+++ Endy/mcL [facility] Nitrite, UA Negative Negative - Positive [facility] pH, UA 6.0 5 - 9 [facility] Protein, UA Trace Negative - 1999(20) ++++ mg/dL [facility] Spec Grav, UA 1.025 1 - 1.03 [facility] Urobilinogen, UA 0.2 0.2 - 12 mg/dL [facility] Reminderson 08-05-2023 Reminders - From: [...] MD To: EU - Recalls Lue; Sent: 08/05/2023 09:02:01 EST Show up: 08/05/2023 09:01:00 EST Subject: RE: Reminder Message No Normal [facility] Free Cell DNAon 2022 [facility] HCG ( test) IAbrandon d Ql (U)Ordered By: Denys Landa on 03-15-2023 HCG ( test) Ql (U) Negative [facility] HCG,Urineon 03-15-2023 Beta HCG ( test) Ql (U) Negative Normal [facility] Comment on above: Result Comment: PERF ORMED BY: [place] [address] PATHOLOGIST CHALK MOLDING MACHINE OPERATOR SALVADOR LEHMAN M.D. Performed By: #### U HCG #### [address] Arturo 03-15-2023 L Specimen: [id number] Received: 03/15/23 Status: KENISHA Tavon Num: [id number] Spec Type: Surgical Subm Dr: Denys Landa MD Tissues: A Duodenum - Biopsy (DUODENAL BX) B STOMACH FOR HP (ANTRAL BX HP) C Esophagus Biopsy (ESOPHAGUS BX) Procedures: HE/6, Gross/Micro L4/3, H PYLORI Age/ Patient Sex Location Account Attending Physician Lisa Allison 37/F [id number] Denys Landa MD SPEC NUM: [id number] RECD: 03/15/23 STATUS: KENISHA MONTES DE OCA NUM: [id number] RODERICK: 03/15/23- [facility] DR: Denys Landa MD ENTERED: 03/15/23-[address] [facility] DR: CESAR TYPE: Surgical DEPT: S [...] eosinophilic exocytosis or eosinophilic esophagitis identified Specimen: [id number] Received: 03/15/23 Status: KENISHA Montes De Oca Num: [id number] Spec Type: Surgical Subm Dr: Denys Landa MD Tissues: A Duodenum - Biopsy (DUODENAL BX) B STOMACH FOR HP (ANTRAL BX HP) C Esophagus Biopsy (ESOPHAGUS BX) Procedures: HE/6, Gross/Micro L4/3, H PYLORI Patient: Lias Allison [id number] (Continued) Specimen: [id number] Received: 03/15/23 (Continued) Signed (signature on file) Bharti Obrien MD 03/16/23 1658 Specimen: [id number] Received: 03/15/23 Status: KENISHA Montes [place]ca Num: [id number] Spec Type: Surgical Subm Dr: Denys Landa MD Tissues: A Duodenum - Biopsy (DUODENAL BX) B STOMACH FOR HP (ANTRAL BX HP) C Esophagus Biopsy (ESOPHAGUS BX) Procedures: HE/6, Gross/Micro L4/3, H PYLORI Patient: EstefanyLisa hwang Roberta [id number] (Continued) Specimen: [id number] Received: 03/15/23 (Continued) Clinical Information LARISSA, rule [...] microscopic examination confirms the diagnosis. CPT Codes 58557q4, 78282 -- (more content not included)... Normal [facility] Calculus Analysison 02-06-20 23 Calcium oxalate dihydrate Infrared spectroscopy (Stone) [Mass fraction] 30 % Invalid Interpretation Code [facility] Comment on above: Performed By: #### 1 [id number] #### [facility] [address] [place] [address] Calcium oxalate monohydrate (Stone) [Mass fraction] 70 % Invalid Interpretation Code [facility] Comment on above: Performed By: #### 1 [id number] #### [facility] [address] [place] [address] Color (Stone) Brown Invalid Interpretation Code [facility] Comment on above: Performed By: #### 1 [id number] #### [facility] [address] [place] [address] Composition Comment Invalid Interpretation Code [facility] Comment on above: Result Comment: Perc entage (Represents the % composition) Performed By: #### 1 [id number] #### [facility] [address] [place] [address] Disclaimer: Comment Invalid Interpretation Code [facility] Comment on above: Result Comment: This test was developed and its performance characteristics determined by [facility]. It has not been cleared or approved by the Food and Drug Administration. Performed at: [facility] [address], [place] [id number] PhD Roya Prajapati Performed By: #### 1 [id number] #### [facility] [address] [place] [address] Laboratory comment Asa (Report) Comment Invalid Interpretation Code [facility] Comment on above: Result Comment: Brad tafoya questions regarding Calculi Analysis [facility] at: [phone]. Performed By: #### 1 [id number] #### [facility] [address] [place] [address] Please Note: Comment Invalid Interpretation Code [facility] Comment on above: Result Comment: Calc dory report will follow via computer, mail or clinic director delivery. Performed By: #### 1 [id number] #### [facility] [address] [place] [address] Size (Stone) [Entitic vol] 3x3 Invalid Interpretation Code [facility] Comment on above: Result Comment: Mult iple pieces received. Dimensions of the largest piece reported. Performed By: #### 1 [id number] #### [facility] [address] [place] [address] Specimen source subject Nom Comment Invalid Interpretation Code [facility] Comment on above: Result Comment: Not provided Performed By: #### 1 [id number] #### [facility] [address] [place] [address] Stone Photo Comment Invalid Interpretation Code [facility] Comment on above: Result Comment: Phot ograph will follow under a separate cover Performed By: #### 1 [id number] #### [facility] [address] [place] [address] Weight (Stone) 8 mg Invalid Interpretation Code [facility] Comment on above: Performed By: #### 1 [id number] #### [facility] [address] [place] [address] Formson 01-26-2023 Forms [id number] #1.00CD:127 Normal [facility] Patient Educationon 01-27-20 Patient Education Nephrology [...] Spinach (cooked), rhubarb, beets, sweet potatoes, and Indonesian chard. ? Peanuts. ? Potato chips, swedish fries, and baked potatoes with skin on. ? Nuts and nut products. ? Chocolate. ? If you regularly take a diuretic medicine, make sure to eat at least 1 or 2 servings of fruits or vegetables that are high in potassium each day. These include: ? Avocado. ? Banana. ? [place], prune, carrot, or tomato juice. ? [...] fish oil, or vitamin B6. ? Take klvv-zul-yyctorg and prescription medicines only as told by your health care provider. These include supplements. What foods should I limit? Limit your in (more content not included)... Normal [facility] RAD - MISCon 01-26-2023 RAD - MIS [id number] #1.00CD:127 Normal [facility] Screenson 01-26-2023 Screens [id number] #1.00CD:127 [facility] Urology Office/Clinic Noteon 01-26-2023 Urology Office/Clinic Note Chief Complaint kidney stones HPI Staff Pt is a new pt, never before seen in our office. Here today due to kidney stones. [place] [facility] 12/27/22 due to Rt flank pain [...] for this patient from Dr. Herron @ [facility]. I have reviewed and verified the staff [...] Pt had gastric bypass in 2016 in [place]. Has had diarrhea since she had her [...] Nitrite Uri (more content not included)... Normal [facility] Comment on above: Result Comment: Elec tronically Signed By: Aram RUSSELL, Alyson Burdick\.br\Date and Time Signed: 01/26/23 21:46 EDT\.br\Electronically Co-Signed By: Ewa Valentin\.br\Date and Time Co-Signed: 01/26/23 10:54 EDT ED Note-Physicianon 01-24-20 ED Note-Physician [id number]#1.00CD:127 Normal [facility] Lab Reportson 01-23-2023 Lab Reports [id number]#1.00CD:127 Normal [facility] RAD - CT Reporton 01-23-2023 RAD - CT Report [id number]# 1.00CD:127 Normal [facility] CBC AUTO DIFFon 12-28-2022 BASO # 0.0 103/ul Normal 0.0-0.1 [facility] Comment on above: Performed By: #### F ERR, FETIBC #### [facility] [address] [address] [address] Michele Obrien Basophils/100 WBC (Bld) 0.5 % Normal 0.2-2.0 [facility] Comment on above: Performed By: #### F ERR, FETIBC #### [facility] [address] [address] [address] Michele Obrien EO # 0.2 103/ul Normal 0.0-0.7 [facility] Comment on above: Performed By: #### F ERR, FETIBC #### [facility] [address] [address] [address] Michele Obrien Eosinophils/100 WBC (Bld) 2.6 % Normal 0.9-7.0 [facility] Comment on above: Performed By: #### F ERR, FETIBC #### [facility] [address] [place] [address] Dr. Michele Obrien Erythrocyte distribution width (RBC) [Ratio] 19.1 % Critically high 11.0-15.0 [facility] Comment on above: Performed By: #### F ERR, FETIBC #### [facility] [address] [place] [address] Dr. Michele Obrien Hematocrit (Bld) [Volume fraction] 37.6 % Normal 36.0-48.0 [facility] Comment on above: Performed By: #### F ERR, FETIBC #### [facility] [address] [place] [address] Dr. Michele Obrien Hemoglobin (Bld) [Mass/Vol] 11.9 g/dL Critically low 12.0-16.0 [facility] Comment on above: Performed By: #### F ERR, FETIBC #### [facility] [address] [place] [address] Dr. Michele Obrien IG # 0.03 10e3/ul Normal 0.00-0.03 [facility] Comment on above: Performed By: #### F ERR, FETIBC #### [facility] [address] [place] [address] Dr. Michele Obrien IG % 0.3 % Normal 0.0-0.5 [facility] Comment on above: Performed By: #### F ERR, FETIBC #### [facility] [address] [place] [address] Dr. Michele Obrien LYMPH # 1.6 103/ul Normal 1.2-3.8 [facility] Comment on above: Performed By: #### F ERR, FETIBC #### [facility] [address] [place] [address] Dr. Michele Obrien Lymphocytes/100 WBC (Bld) 18.4 % Critically low 20.5-60.0 [facility] Comment on above: Performed By: #### F ERR, FETIBC #### [facility] [address] [place] [address] Dr. Michele Obrien MANUAL DIFF REQ NO Normal [facility] Comment on above: Performed By: #### F ERR, FETIBC #### [facility] [address] [place] [address] Dr. Michele Obrien MCH (RBC) [Entitic mass] 23.7 pg Critically low 26.7-34.0 [facility] Comment on above: Performed By: #### F ERR, FETIBC #### [facility] [address] [place] [address] Dr. Michele Obrien MCHC (RBC) [Mass/Vol] 31.6 g/dL Normal 29.9-35.2 [facility] Comment on above: Performed By: #### F ERR, FETIBC #### [facility] [address] [place] [address] Dr. Michele Obrien MCV (RBC) [Entitic vol] 74.9 fL Critically low 81.0-99.0 [facility] Comment on above: Performed By: #### F ERR, FETIBC #### [facility] [address] [place] [address] Dr. Michele Obrien MONO # 0.5 103/ul Normal 0.3-0.8 [facility] Comment on above: Performed By: #### F ERR, FETIBC #### [facility] [address] [place] [address] Dr. Michele Obrien Monocytes/100 WBC (Bld) 5.9 % Normal 1.7-12.0 [facility] Comment on above: Performed By: #### F ERR, FETIBC #### [facility] [address] [place] [address] Dr. Michele Obrien NEUT # 6.4 103/ul Normal 1.4-6.5 [facility] Comment on above: Performed By: #### F ERR, FETIBC #### [facility] [address] [place] [address] Dr. Michele Obrien Neutrophils/100 WBC (Bld) 72.3 % Normal 43.0-75.0 [facility] Comment on above: Performed By: #### F ERR, FETIBC #### [facility] [address] [place], [place] [address] Dr. Michele Obrien Platelet mean volume (Bld) [Entitic vol] 10.2 fL Normal 9.5-13.5 [facility] Comment on above: Performed By: #### F ERR, FETIBC #### [facility] [address] [place], [place] [address] Dr. Michele Obrien PLT 243 103/ul Normal 150-450 [facility] Comment on above: Performed By: #### F ERR, FETIBC #### [facility] [address] [place], [place] [address] Dr. Michele Obrien RBC 5.02 106/ul Normal 4.20-5.40 [facility] Comment on above: Performed By: #### F ERR, FETIBC #### [facility] [address] [address] [address] Michele Obrien WBC 8.9 103/ul Normal 4.0-11.0 [facility] Comment on above: Performed By: #### F ERR, FETIBC #### [facility] [address] [place], [place] [address] ABD/PELVIS WO CONon [...] ALEXA WHITE Date: 2022-12-28 02:25 Normal [facility] ER URINE PROFILEon 3 Bilirubin Ql (U) Negative Normal NEGATIVE [facility] Comment on above: Performed By: #### H IV12 #### [facility] [address] [address] [address] Michele Obrien Clarity (U) CLEAR Normal CLEAR [facility] Comment on above: Performed By: #### H IV12 #### [facility] [address] [address] [address] Michele Obrien Color (U) LT. YELLOW Normal YELLOW [facility] Comment on above: Performed By: #### H IV12 #### [facility] [address] [address] [address] Michele JACKSON A micrscopic examination will be performed if indicated. Normal [facility] Comment on above: Performed By: #### H IV12 #### [facility] [address] [address] [address] Michele Obrien Glucose Ql (U) Negative Normal NEGATIVE [facility] Comment on above: Performed By: #### H IV12 #### [facility] [address] [address] [address] Michele Obrien Hemoglobin Ql (U) MODERATE Abnormal NEGATIVE [facility] Comment on above: Performed By: #### H IV12 #### [facility] [address] [address] [address] Michele Obrien Ketones Ql (U) Negative Normal NEGATIVE [facility] Comment on above: Performed By: #### H IV12 #### [facility] [address] [address] [address] Michele Obrien LEUKOCYTES Negative Normal NEGATIVE [facility] Comment on above: Performed By: #### H IV12 #### [facility] [address] [address] [address] Michele Obrien Nitrite Ql (U) Negative Normal NEGATIVE [facility] Comment on above: Performed By: #### H IV12 #### [facility] [address] [place] [address] Dr. Michele Obrien pH (U) 5.5 [pH] Normal 5-9 [facility] Comment on above: Performed By: #### H IV12 #### [facility] [address] [place] [address] Dr. Michele Obrien SPEC GRAVITY 1.025 Normal 1.005-<=1.025 [facility] Comment on above: Performed By: #### H IV12 #### [facility] [address] [place] [address] Dr. Michele Obrien UA PROTEIN Negative Normal NEGATIVE/ TRACE [facility] Comment on above: Performed By: #### H IV12 #### [facility] [address] [place] [address] Dr. Michele Obrien UR MICRO IND INDICATED Normal [facility] Comment on above: Performed By: #### H IV12 #### [facility] [address] [place] [address] Dr. Michele Obrien Urobilinogen Qn (U) 0.2 {Ijeoma'U}/dL Normal 0.2 - 1. 0 [facility] Comment on above: Performed By: #### H IV12 #### [facility] [address] [place] [address] Dr. Michele Obrien PREG HCG QUALon 12-28-2022 , QUAL Negative Normal NEGATIVE [facility] Comment on above: Performed By: #### P REG #### [facility] [address] [place] [address] Dr. Michele Obrien PROF 14(COMP METB)on 023 Albumin [Mass/Vol] 3.4 g/dL Normal 3.4-5.0 [facility] Comment on above: Performed By: #### C MP #### [facility] [address] [place] [address] Dr. Michele Obrien Albumin/Globulin [Mass ratio] 1.1 {ratio} Normal [facility] Comment on above: Performed By: #### C MP #### [facility] [address] [place] [address] Dr. Michele Obrien ALP [Catalytic activity/Vol] 73 U/L Normal 46-116 [facility] Comment on above: Performed By: #### C MP #### [facility] [address] [address] [address] Michele Obrien ALT [Catalytic activity/Vol] 18 U/L Normal 14-59 [facility] Comment on above: Performed By: #### C MP #### [facility] [address] [address] [address] Michele Obrien Anion gap [Moles/Vol] 11.9 mmol/L Normal [facility] Comment on above: Performed By: #### C MP #### [facility] [address] [address] [address] Michele Obrien AST [Catalytic activity/Vol] 13 U/L Critically low 15-37 [facility] Comment on above: Performed By: #### C MP #### [facility] [address] [address] [address] Michele Obrien Bilirubin [Mass/Vol] 0.1 mg/dL Critically low 0.2-1.0 [facility] Comment on above: Performed By: #### C MP #### [facility] [address] [address] [address] Michele Obrien Calcium [Mass/Vol] 8.6 mg/dL Normal 8.5-10.1 [facility] Comment on above: Performed By: #### C MP #### [facility] [address] [address] [address] Michele Obrien Chloride [Moles/Vol] 105 mmol/L Normal 98-107 [facility] Comment on above: Performed By: #### C MP #### [facility] [address] [address] [address] Michele Obrien CO2 [Moles/Vol] 26.7 mmol/L Normal 21.0-32.0 [facility] Comment on above: Performed By: #### C MP #### [facility] [address] [address] [address] Michele Obrien Creatinine [Mass/Vol] 0.85 mg/dL Normal 0.55-1.02 [facility] Comment on above: Performed By: #### C MP #### [facility] [address] [address] [address] Michele Obrien EGFR-AF SLOVENIAN >60 Normal >=60 [facility] Comment on above: Performed By: #### C MP #### [facility] [address] [address] [address] Michele Obrien EGFR-NON AF SLOVENIAN >60 Normal >=60 [facility] Comment on above: Performed By: #### C MP #### [facility] [address] [address] [address] Michele Obrien Globulin (S) [Mass/Vol] 3.1 g/dL Normal [facility] Comment on above: Performed By: #### C MP #### [facility] [address] [address] [address] Michele Obrien Glucose [Mass/Vol] 123 mg/dL Critically high 74-106 [facility] Comment on above: Performed By: #### C MP #### [facility] [address] [address] [address] Michele Obrien Potassium [Moles/Vol] 3.6 mmol/L Normal 3.5-5.1 [facility] Comment on above: Performed By: #### C MP #### [facility] [address] [address] [address] Michele Obrien Protein [Mass/Vol] 6.5 g/dL Normal 6.4-8.2 [facility] Comment on above: Performed By: #### C MP #### [facility] [address] [address] [address] Michele Obrien Sodium [Moles/Vol] 140 mmol/L Normal 136-145 [facility] Comment on above: Performed By: #### C MP #### [facility] [address] [address] [address] Michele Obrien Urea nitrogen [Mass/Vol] 14.0 mg/dL Normal 7.0-18.0 [facility] Comment on above: Performed By: #### C MP #### [facility] [address] [place] [address] Dr. Michele Obrien Urea nitrogen/Creatinine [Mass ratio] 16.5 mg/mg Normal [facility] Comment on above: Performed By: #### C MP #### [facility] [address] [place] [address] Dr. Michele Obrien URINE MICROSCOPIC ONLYon BACTERIA TRACE Abnormal NONE SEEN [facility] Comment on above: Performed By: #### H IV12 #### [facility] [address] [place] [address] Dr. Michele Obrien Bacteria identified Cx Nom (U) NOT INDICATED Normal [facility] Comment on above: Performed By: #### H IV12 #### [facility] [address] [place] [address] Dr. Michele Obrien CAST NONE SEEN Normal NONE SEEN [facility] Comment on above: Performed By: #### H IV12 #### [facility] [address] [place] [address] Dr. Michele Obrien Crystals LM Nom (Urine sed) NONE SEEN Normal NONE SEEN The [facility] Comment on above: Performed By: #### H IV12 #### [facility] [address] [place] [address] Dr. Michele Obrien Epithelial cells LM Ql (Urine sed) FEW Abnormal NONE SEEN /RARE [facility] Comment on above: Performed By: #### H IV12 #### [facility] [address] [place] [address] Dr. Michele Obrien MUCOUS TRACE Abnormal NONE SEEN The [facility] Comment on above: Performed By: #### H IV12 #### [facility] [address] [place] [address] Dr. Michele Obrien RBC 20-50 Abnormal 0-2 [facility] Comment on above: Performed By: #### H IV12 #### [facility] [address] [place] [address] Dr. Michele Obrien WBC 0-2 Abnormal NONE SEEN The [facility] Comment on above: Performed By: #### H IV12 #### [facility] [address] [place] [address] Dr. Michele Obrien HIV 1 AND 2 WITH REFLEXon HIV Screen 4th Generation wRfx Non-Reactive Normal Non Reactive [facility] Comment on above: Result Comment: HIV Negative HIV-1/HIV-2 antibodies and HIV-1 p24 antigen were NOT detected. There is no laboratory evidence of HIV infection. Performed By: #### H IV12 #### [facility] [address] [place] [address] Dr. Michele Obrien FERRITINon 10-16-2022 Ferritin [Mass/Vol] 6.0 ng/mL Critically low 6.2-137.0 [facility] Comment on above: Performed By: #### F ERR, FETIBC #### [facility] [address] [place] [address] Dr. Michele Obrien FREE T3on 10-16-2022 FREE T3 1.87 pg/mlL Critically low 2.18-3.98 [facility] Comment on above: Performed By: #### H IV12 #### [facility] [address] [place] [address] Dr. Michele Obrien HEMOGRAM AND PLATELon 2022 Hematocrit (Bld) [Volume fraction] 35.7 % Critically low 36.0-48.0 [facility] Comment on above: Performed By: #### H H #### [facility] [address] [place] [address] Dr. Michele Obrien Hemoglobin (Bld) [Mass/Vol] 10.4 g/dL Critically low 12.0-16.0 [facility] Comment on above: Performed By: #### H H #### [facility] [address] [place] [address] Dr. Michele Obrien MCH (RBC) [Entitic mass] 20.0 pg Critically low 26.7-34.0 [facility] Comment on above: Performed By: #### H H #### [facility] [address] [place] [address] Dr. Michele Obrien MCHC (RBC) [Mass/Vol] 29.1 g/dL Critically low 29.9-35.2 [facility] Comment on above: Performed By: #### H H #### [facility] [address] [address] [address] Michele Obrien MCV (RBC) [Entitic vol] 68.5 fL Critically low 81.0-99.0 [facility] Comment on above: Performed By: #### H H #### [facility] [address] [address] [address] Michele Obrien PLT 241 103/ul Normal 150-450 [facility] Comment on above: Performed By: #### H H #### [facility] [address] [address] [address] Michele Obrien RBC 5.21 106/ul Normal 4.20-5.40 [facility] Comment on above: Performed By: #### H H #### [facility] [address] [place] [address] Dr. Michele Obrien WBC 6.9 103/ul Normal 4.0-11.0 [facility] Comment on above: Performed By: #### H H #### [facility] [address] [place] [address] Dr. Michele Obrien IRON AND TIBCon 10-16-2022 % SATURATION 4.5 % Normal [facility] Comment on above: Performed By: #### F ERR, FETIBC #### [facility] [address] [place] [address] Dr. Michele Obrien Iron [Mass/Vol] 18.0 ug/dL Critically low 50.0-170.0 [facility] Comment on above: Performed By: #### F ERR, FETIBC #### [facility] [address] [place] [address] Dr. Michele Obrien TIBC DIRECT 396.0 ug/dL Normal 250.0-450.0 [facility] Comment on above: Performed By: #### F ERR, FETIBC #### [facility] [address] [place] [address] Dr. Michele Obrien TSH W/ REFLEX TO FT4on 10-16 TSH 3.577 uIU/mL Normal 0.358-3.740 [facility] Comment on above: Performed By: #### H IV12 #### [facility] [address] [place] [address] Dr. Michele Obrien VITAMIN Con 09-03-2022 Vitamin C 0.2 mg/dL Critically low 0.4-2.0 [facility] Comment on above: Result Comment: Li min C deficiency is generally defined as plasma or serum concentrations less than 0.2 mg/dL and levels between 0.2 and 0.4 mg/dL are considered low. Performed By: #### F ERR, FETIBC #### [facility] [address] [place] [address] Dr. Michele Obrien VITAMIN Aon 09-01-2022 Vitamin A 33.6 ug/dL Normal 18.9-57.3 [facility] Comment on above: Result Comment: Refe [...] Administration. Performed By: #### V ITAMA #### [facility] [address] [place] [address] Dr. Michele Obrien VITAMIN Kodi 09-01-2022 Vitamin E (Alpha T) 11.9 mg/L Normal 5.9-19.4 [facility] Comment on above: Performed By: #### V ITAE #### [facility] [address] [place] [address] Dr. Michele Obrien Vitamin E (Gamma T) 1.5 mg/L Normal 0.7-4.9 [facility] Comment on above: Result Comment: Refe rence intervals for alpha and gamma-tocopherol determined from National Health and Nutrition Examination Survey, 0450-0228. Individuals with alpha-tocopherol levels less than 5.0 mg/L are considered vitamin E deficient. Performed By: #### V ITAE #### [facility] [address] [place] [address] Dr. Michele Obrien VITAMIN Garrett 08-26-2022 Vitamin K1 0.24 ng/mL Normal 0.10-2.20 [facility] Comment on above: Performed By: #### F ERR, FETIBC #### [facility] [address] [place] [address] Dr. Michele Obrien SELENIUM, PLASMAon Selenium, Serum/Plasma 110 ug/L Normal 93-198 [facility] Comment on above: Performed By: #### H IV12 #### [facility] [address] [place] [address] Dr. Michele Obrien VITAMIN B1 (THIAMINE)on 08-02 Vit. B1, Whole Blood 126.2 nmol/L Normal 66.5-200.0 [facility] Comment on above: Performed By: #### F ERR FETIBC #### [facility] [address] [place] [address] Dr. Michele Obrien ZINC SERUM OR PLASMAon 08-23 Zinc, Plasma or Serum 69 ug/dL Normal 44-115 [facility] Comment on above: Result Comment: Dete ction Limit = 5 Performed By: #### H IV12 #### [facility] [address] [place] [address] Dr. Michele Obrien FERRITINon 08-20-2022 Ferritin [Mass/Vol] 5.0 ng/mL Critically low 6.2-137.0 [facility] Comment on above: Performed By: #### F ERR FETIBC #### [facility] [address] [place] [address] Dr. Michele Obrien FREE T4on 08-20-2022 Free T4 [Mass/Vol] 1.01 ng/dL Normal 0.76-1.46 [facility] Comment on above: Performed By: #### H IV12 #### [facility] [address] [place] [address] Dr. Michele Obrien GLYCOHEMOGLOBIN A1Con 2022 ADA RECOMMENDATION SEE BELOW Normal [facility] Comment on above: Result Comment: ADA RECOMMENDED LIMIT 4.0 - 6.0 ADA THERAPEUTIC TARGET < 7.0 ACTION SUGGESTED > 7.0 Performed By: #### H IV12 #### [facility] [address] [place] [address] Dr. Michele Obrien Glucose [Mass/Vol] 80 mg/dL Normal [facility] Comment on above: Performed By: #### H IV12 #### [facility] [address] [place] [address] Dr. Michele Obrien HbA1c (Bld) [Mass fraction] 4.4 % Critically low 4.5-6.2 [facility] Comment on above: Performed By: #### H IV12 #### [facility] [address] [place] [address] Dr. Michele Obrien HEMOGRAM AND PLATELon 2022 Hematocrit (Bld) [Volume fraction] 29.3 % Critically low 36.0-48.0 [facility] Comment on above: Performed By: #### H IV12 #### [facility] [address] [place] [address] Dr. Michele Obrien Hemoglobin (Bld) [Mass/Vol] 9.3 g/dL Critically low 12.0-16.0 [facility] Comment on above: Performed By: #### H IV12 #### [facility] [address] [place] [address] Dr. Michele Obrien MCH (RBC) [Entitic mass] 20.1 pg Critically low 26.7-34.0 [facility] Comment on above: Performed By: #### H IV12 #### [facility] [address] [place] [address] Dr. Michele Obrien MCHC (RBC) [Mass/Vol] 31.7 g/dL Normal 29.9-35.2 [facility] Comment on above: Performed By: #### H IV12 #### [facility] [address] [place] [address] Dr. Michele Obrien MCV (RBC) [Entitic vol] 63.4 fL Critically low 81.0-99.0 [facility] Comment on above: Performed By: #### H IV12 #### [facility] [address] [place] [address] Dr. Michele Obrien PLT 213 103/ul Normal 150-450 [facility] Comment on above: Performed By: #### H IV12 #### [facility] [address] [address] [address] Michele Obrien RBC 4.62 106/ul Normal 4.20-5.40 [facility] Comment on above: Performed By: #### H IV12 #### [facility] [address] [address] [address] Michele Obrien WBC 5.8 103/ul Normal 4.0-11.0 [facility] Comment on above: Performed By: #### H IV12 #### [facility] [address] [address] [address] Michele Obrien IRON AND TIBCon 08-20-2022 % SATURATION 6.5 % Normal [facility] Comment on above: Performed By: #### F ERR, FETIBC #### [facility] [address] [place] [address] Dr. Michele Obrien Iron [Mass/Vol] 22.0 ug/dL Critically low 50.0-170.0 [facility] Comment on above: Performed By: #### F ERR, FETIBC #### [facility] [address] [place] [address] Dr. Michele Obrien TIBC DIRECT 340.0 ug/dL Normal 250.0-450.0 [facility] Comment on above: Performed By: #### F ERR, FETIBC #### [facility] [address] [place] [address] Dr. Michele Obrien LIPID PROFILEon 08-20-2022 CHOL-HDL RATIO NORM SEE BELOW Normal [facility] Comment on above: Result Comment: 3.3 - 4.4 LOW RISK 4.4 - 7.1 AVERAGE RISK 7.1 - 11.0 MODERATE RISK >11.0 HIGH RISK Performed By: #### F ERR, FETIBC #### [facility] [address] [place] [address] Dr. Michele Obrien Cholesterol [Mass/Vol] 146 mg/dL Normal <=200 [facility] Comment on above: Performed By: #### F ERR, FETIBC #### [facility] [address] [address] [address] Michele Obrien Cholesterol in HDL [Mass/Vol] 58 mg/dL Normal 40-60 [facility] Comment on above: Performed By: #### F ERR, FETIBC #### [facility] [address] [address] [address] Michele Obrien Cholesterol in LDL [Mass/Vol] 66.8 mg/dL Normal [facility] Comment on above: Performed By: #### F ERR, FETIBC #### [facility] [address] [address] [address] Michele Obrien Cholesterol.total/Ch olesterol in HDL [Mass ratio] 2.5 {ratio} Normal [facility] Comment on above: Performed By: #### F ERR, FETIBC #### [facility] [address] [address] [address] Michele Obrien HDL NORMAL > or = 60 mg/dl - LOW CARDIOVASCULAR RISK <40 mg/dl - HIGH CARDIOVASCULAR RISK Normal [facility] Comment on above: Performed By: #### F ERR, FETIBC #### [facility] [address] [address] [address] Michele Obrien LDL CALC NORMAL SEE BELOW Normal [facility] Comment on above: Result Comment: <100 mg/dl OPTIMAL 100 - 129 mg/dl NEAR OR ABOVE OPTIMAL 130 - 159 mg/dl BORDERLINE HIGH 160 - 189 mg/dl HIGH >190 mg/dl VERY HIGH Performed By: #### F ERR, FETIBC #### [facility] [address] [address] [address] Michele Obrien Triglyceride [Mass/Vol] 106 mg/dL Normal <=150 [facility] Comment on above: Performed By: #### F ERR, FETIBC #### [facility] [address] [address] [address] Michele Obrien VLDL CALC 21.2 mg/dL Normal [facility] Comment on above: Performed By: #### F ERR, FETIBC #### [facility] [address] [address] [address] Michele Obrien PROF 14(COMP METB)on 023 Albumin [Mass/Vol] 3.5 g/dL Normal 3.4-5.0 [facility] Comment on above: Performed By: #### F ERR, FETIBC #### [facility] [address] [address] [address] Michele Obrien Albumin/Globulin [Mass ratio] 1.2 {ratio} Normal [facility] Comment on above: Performed By: #### F ERR, FETIBC #### [facility] [address] [address] [address] Michele Obrien ALP [Catalytic activity/Vol] 76 U/L Normal 46-116 [facility] Comment on above: Performed By: #### F ERR, FETIBC #### [facility] [address] [address] [address] Michele Obrien ALT [Catalytic activity/Vol] 16 U/L Normal 14-59 [facility] Comment on above: Performed By: #### F ERR, FETIBC #### [facility] [address] [address] [address] Michele Obrien Anion gap [Moles/Vol] 10.0 mmol/L Normal [facility] Comment on above: Performed By: #### F ERR, FETIBC #### [facility] [address] [address] [address] Michele Obrien AST [Catalytic activity/Vol] 16 U/L Normal 15-37 [facility] Comment on above: Performed By: #### F ERR, FETIBC #### [facility] [address] [address] [address] Michele Obrien Bilirubin [Mass/Vol] 0.3 mg/dL Normal 0.2-1.0 [facility] Comment on above: Performed By: #### F ERR, FETIBC #### [facility] [address] [address] [address] Michele Obrien Calcium [Mass/Vol] 8.5 mg/dL Normal 8.5-10.1 [facility] Comment on above: Performed By: #### F ERR, FETIBC #### [facility] [address] [address] [address] Michele Obrien Chloride [Moles/Vol] 106 mmol/L Normal 98-107 [facility] Comment on above: Performed By: #### F ERR, FETIBC #### [facility] [address] [address] [address] Michele Obrien CO2 [Moles/Vol] 30.8 mmol/L Normal 21.0-32.0 [facility] Comment on above: Performed By: #### F ERR, FETIBC #### [facility] [address] [address] [address] Michele Obrien Creatinine [Mass/Vol] 0.68 mg/dL Normal 0.55-1.02 [facility] Comment on above: Performed By: #### F ERR, FETIBC #### [facility] [address] [place] [address] Dr. Michele Obrien EGFR-AF SLOVENIAN >60 Normal >=60 [facility] Comment on above: Performed By: #### F ERR, FETIBC #### [facility] [address] [place] [address] Dr. Michele Obrien EGFR-NON AF SLOVENIAN >60 Normal >=60 [facility] Comment on above: Performed By: #### F ERR, FETIBC #### [facility] [address] [place] [address] Dr. Michele Obrien Globulin (S) [Mass/Vol] 2.8 g/dL Normal [facility] Comment on above: Performed By: #### F ERR, FETIBC #### [facility] [address] [address] [address] Michele Obrien Glucose [Mass/Vol] 77 mg/dL Normal 74-106 [facility] Comment on above: Performed By: #### F ERR, FETIBC #### [facility] [address] [address] [address] Michele Obrien Potassium [Moles/Vol] 3.8 mmol/L Normal 3.5-5.1 [facility] Comment on above: Performed By: #### F ERR, FETIBC #### [facility] [address] [place] [address] Dr. Michele Obrien Protein [Mass/Vol] 6.3 g/dL Critically low 6.4-8.2 [facility] Comment on above: Performed By: #### F ERR, FETIBC #### [facility] [address] [place] [address] Dr. Michele Obrien Sodium [Moles/Vol] 143 mmol/L Normal 136-145 [facility] Comment on above: Performed By: #### F ERR, FETIBC #### [facility] [address] [place] [address] Dr. Michele Obrien Urea nitrogen [Mass/Vol] 10.0 mg/dL Normal 7.0-18.0 [facility] Comment on above: Performed By: #### F ERR, FETIBC #### [facility] [address] [place] [address] Dr. Michele Obrien Urea nitrogen/Creatinine [Mass ratio] 14.7 mg/mg Normal [facility] Comment on above: Performed By: #### F ERR, FETIBC #### [facility] [address] [place] [address] Dr. Michele Obrien TSHon 08-20-2022 TSH 4.302 uIU/mL Critically high 0.358-3.740 [facility] Comment on above: Performed By: #### F ERR, FETIBC #### [facility] [address] [place] [address] Dr. Michele Obrien VIT B12 AND FOLATEon 023 Cobalamin (Vitamin B12) [Mass/Vol] 433.0 pg/mL Normal 193.0-986.0 [facility] Comment on above: Performed By: #### B 12FOL, VITAD #### [facility] [address] [place] [address] Dr. Michele Obrien FOLATE 18.00 ng/mL Normal 8.60-58.90 [facility] Comment on above: Performed By: #### B 12FOL, VITAD #### [facility] [address] [address] [address] Michele Obrien VITAMIN D 25 OHon 08-20-2022 VIT D 25-OH 33.4 ng/mL Normal [facility] Comment on above: Performed By: #### B 12FOL, VITAD #### [facility] [address] [address] [address] Michele Obrien VIT D RANGES SEE BELOW Normal [facility] Comment on above: Result Comment: <20 ng/mL Vit D deficient 20 - <30 ng/mL Vit D insufficient 30 - 100 ng/mL Vit D sufficient >100 ng/mL Potential Toxicity Performed By: #### B 12FOL, VITAD #### [facility] [address] [place] [address] Dr. Michele Obrien Vital Signs Date Time Vital Sign Value Performing Clinician Facility 09-22-2023 09:42-0500 Body mass index (BMI) [Ratio] 44.85 kg/m2 Sterling Aguilar MD Work Phone: [facility] 09-22-2023 09:42-0500 Body weight 141.79 kg Sterling Aguilar MD Work Phone: [facility] 09-22-2023 09:42-0500 Diastolic blood pressure 74 mm[Hg] Sterling Aguilar MD Work Phone: [facility] 09-22-2023 09:42-0500 Heart rate 82 /min Sterling Aguilar MD Work Phone: [facility] 09-22-2023 09:42-0500 Systolic blood pressure 123 mm[Hg] Sterling Aguilar MD Work Phone: [facility] 09-15-2023 11:30-0500 Body mass index (BMI) [Ratio] 43.52 kg/m2 Kassandra ALBERTO Work Phone: [facility] 09-15-2023 11:30-0500 Body weight 141.52 kg Kassandra ALBERTO Work Phone: [facility] 02-15-2024 11:30-0500 Diastolic blood pressure 80 mm[Hg] Kassandra ALBERTO Work Phone: [facility] 09-15-2023 11:30-0500 Systolic blood pressure 130 mm[Hg] Kassandra ALBERTO Work Phone: [facility] 05-19-2023 15:30-0400 Body weight 128.05 kg Denys Cordell Other [facility] Other 05-19-2023 15:30-0400 Diastolic blood pressure 86 mm[Hg] Denys Landa Other [facility] Other 05-19-2023 15:30-0400 Systolic blood pressure 127 mm[Hg] Denys Selfack Other [facility] Other 03-15-2023 10:48-0400 Diastolic blood pressure 80 mm[Hg] [employer] Wilber Shammo Work Phone: [facility] 03-15-2023 10:48-0400 Heart rate 63 /min [employer] Wilber Shammo Work Phone: [facility] 03-15-2023 10:48-0400 Respiratory rate 16 /min [employer] Wilber Shammo Work Phone: [facility] 03-15-2023 10:48-0400 SaO2% (BldA) [Mass fraction] 99 % [employer] Wilber Shammo Work Phone: [facility] 03-15-2023 10:48-0400 Systolic blood pressure 126 mm[Hg] [employer] Wilber Shammo Work Phone: [facility] 03-15-2023 08:43-0400 Body height 180.34 cm [employer] Wilber Shammo Work Phone: [facility] 03-15-2023 08:43-0400 Body temperature 98.2 [degF] [employer] Wilber Shammo Work Phone: [facility] 03-15-2023 08:43-0400 Body weight 129.27 kg [employer]- Wilber Mckeon Work Phone: [facility] 01-17-2023 10:00-0400 Body weight 127.01 kg Denys Cordell Other [facility] Other 01-17-2023 10:00-0400 Diastolic blood pressure 85 mm[Hg] Denys Landa Other [facility] Other 01-17-2023 10:00-0400 Systolic blood pressure 125 mm[Hg] Denys Landa Other [facility] Other Encounters Encounter Date Encounter Type Care Provider Facility Start: 12-08-2023 End: 12-08-2023 ambulatory YOAN PARIS Not Available Start: 11-30-2023 End: 11-30-2023 ambulatory KASSANDRA MILAGROS Not Available Start: 11-15-2023 End: 11-15-2023 ambulatory YOAN PARIS Not Available Start: 11-02-2023 End: 11-02-2023 ambulatory STERLING JEFF [facility] Start: 11-02-2023 End: 11-02-2023 Office outpatient visit 15 minutes Fred Chavez MD Work Phone: [facility] Comment on above: Essential hypertensi on affecting in second trimester (Primary Dx) Start: 10-31-2023 End: 10-31-2023 ambulatory KASSANDRA MILAGROS Not Available Start: 10-18-2023 End: 10-19-2023 ambulatory YOAN R PARIS [facility] Start: 10-18-2023 Documentation procedure Fred Chavez MD Work Phone: [facility] Start: 10-13-2023 End: 10-13-2023 ambulatory YOAN PARIS Not Available Start: 09-22-2023 End: 09-23-2023 Orders Only Rossy Carrington RN [facility] Comment on above: Pre-existing essenti al hypertension during in second trimester (Primary Dx); Advanced maternal age in multigravida, second trimester; Hypothyroid in , antepartum Start: 09-22-2023 End: 09-22-2023 Office consultation new/estab patient 60 min Sterling Agiular MD Work Phone: [facility] Comment on above: Essential hypertensi [...] Bee MD Work Phone: [facility] Start: 08-19-2023 Telephone encounter Janae Ware [facility] Start: 08-18-2023 End: 08-18-2023 ambulatory YOAN PARIS Not Available Start: 08-03-2023 ambulatory WILBER MCKEON Facility:[facility] Start: 07-21-2023 End: 07-21-2023 ambulatory KASSANDRA LINARES Not Available Start: 06-13-2023 End: 06-13-2023 ambulatory YOAN PARIS Not Available Start: 05-19-2023 End: 05-19-2023 ambulatory Denys Landa Other [facility] Other Start: 05-19-2023 Office outpatient vi sit 15 minutes Denys Landa [facility] Start: 03-15-2023 End: 03-15-2023 ambulatory Denys Landa Facility:[facility] Start: 03-15-2023 End: 03-15-2023 Admission to same day surgery center [facility]- Wilber Shammo Work Phone: [facility] Work Phone: Start: 03-15-2023 End: 03-15-2023 ambulatory [employer]- Wilber T Shammo Work Phone: [facility] Work Phone: Start: 01-26-2023 End: 01-27-2023 ambulatory WILBER SHAMMO Facility:[facility] Start: 01-26-2023 End: 01-27-2023 ambulatory Alyson Chiu Facility:[facility] Start: 01-26-2023 End: 01-26-2023 Lab Drop off Alyson Chiu [facility] Start: 01-26-2023 End: 01-26-2023 Patient encounter procedure Alyson Chiu [facility] Start: 01-20-2023 ambulatory WILBER SHAMMO Facility:[facility] Start: 01-17-2023 End: 01-17-2023 ambulatory Denys Landa Other [employer] Other Start: 01-17-2023 Office outpatient ne w 45 minutes Denys Landa [facility] G[facility]ology Start: 12-28-2022 End: 12-28-2022 ambulatory ULKE BOWENS . Facility:[facility] Start: 10-16-2022 End: 10-17-2022 ambulatory WILBER SHAMMO Facility:[facility] Start: 08-25-2022 Encounter for genera l adult medical examination without abnormal findings WILBER SHAMMO [facility] Start: 08-20-2022 End: 08-21-2022 ambulatory WILBER SHAMMO Facility:[facility] Start: 08-20-2022 End: 08-21-2022 Encounter for general adult medical examination without abnormal findings WILBER SHAMMO Facility:[facility] Procedures Date Procedure Procedure Detail Performing Clinician Start: 09-15-2023 Urnls dip stick/tablet rgnt non-auto w/o micrscp Kassandra ALBERTO Work Phone: Start: 06-08-2023 FREE CELL DNA (NON-[facility]) Not In System Ref Prov Start: 03-15-2023 Esophagogastroduodenoscopy TOUR [employer] 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 Wilber Mckeon Work Phone: Start: 08-01-2016 Appendectomy Alyson Chiu Start: 08-01-2016 Gastric sleeve Alyson Chiu Start: 08-01-2005 Cholecystectomy Alyson Chiu Arthroplasty of knee Alyson chamberlain Comment on above: Meniscus repair section Alyson Chiu Comment on above: x2 Plan of Treatment Date Care Activity Detail Author Start: 09-22-2024 Adult BMI Screening Adult BMI Screen ing [facility] Start: 09-22-2024 Tobacco Screening Tobacco Screening [facility] Start: 09-22-2024 End: 09-22-2024 US MFM with or without consult US MFM with or without consult Imaging Routine Pre-existing essential hypertension during in second trimester Advanced maternal age in multigravida, second trimester Hypothyroid in , antepartum Expected: 09/22/2024 (Approximate), Expires: 09/22/[facility]: Comment on above: Expected: 09/22/2024 (Approximate), Expires: 09/22/2024 Start: 04-01-2024 Influenza vaccination Influenza Vacc ine [facility] Start: 11-12-2023 Adult BMI Screening Adult BMI Screen ing [facility] Start: 11-02-2023 End: 11-02-2023 Telemedicine consultation with patient 11/02/2023 11:30 AM EDT Telemedicine Maternal- Medicine at [id number] [place] [address] Fred Chavez MD [address] [place] [address] Sterling Aguilar MD [address] [facility], [address] [place] [address] Maternal- Medicine at [facility] Start: 10-18-2023 End: 10-18-2023 Telemedicine consultation with patient 10/18/2023 1:30 PM EDT Telemedicine Maternal- Medicine at [facility] [address] [place] [id number] Fred Chavez MD [address] [place] [address] Maternal- Medicine at [facility] Start: 10-18-2023 End: 10-18-2023 Patient encounter procedure 10/18/2023 12:30 PM EDT Appointment [facility] - Ultrasound [address] [place] [id number] [facility] - Ultrasound Start: 10-13-2023 End: 10-13-2023 Patient encounter procedure 10/13/2023 10:50 AM EDT Routine [facility] [address] [place] [address] Yoan Miguel DO [address] [place] [address] [facility] Start: 09-15-2023 End: 09-15-2024 CBC panel - Blood by Automated count CBC Lab Routine Diabetes mellitus screening Expected: 09/15/2023 (Approximate), Expires: 09/15/2024 [facility] Work Phone: Comment on above: Expected: 09/15/2023 (Approximate), Expires: 09/15/2024 Start: 09-15-2023 End: 09-15-2024 Measurement of glucose 1 hour after glucose challenge for glucose tolerance test Glucose tolerance, 1 hour Lab Routine Diabetes mellitus screening Expected: 09/15/2023 (Approximate), Expires: 09/15/2024 [facility] Comment on above: Expected: 09/15/2023 (Approximate), Expires: 09/15/2024 Start: 09-15-2023 End: 09-15-2024 Thyrotropin [Units/volume] in Serum or Plasma TSH Lab Routine Hypothyroidism, unspecified type (CMS/HCC) Expected: 09/15/2023 (Approximate), Expires: 09/15/2024 [facility] Comment on above: Expected: 09/15/2023 (Approximate), Expires: 09/15/2024 Start: 09-14-2023 End: 09-14-2023 Patient encounter procedure [facility] Start: 04-01-2023 Influenza vaccination Influenza Vacc ine [facility] Start: 03-15-2023 [facility] Start: 11-02-2007 Screening for malign ant neoplasm of cervix Pap Smear [facility] Start: 2005 DTaP,Tdap and Td Vaccines (1 - Tdap) DTaP,Tdap and Td Vaccines (1 - Tdap) [facility] Start: 2004 Adult BMI Follow Up Plan Adult BMI Follow Up Plan [facility] Start: 1998 Depression Screening Depression Scre ening [facility] Start: 1998 Tobacco Screening Tobacco Screening [facility] Hemoglobin A1c/Hemoglobin.total in Blood Hemoglobin A1c Lab Routine Diabetes mellitus screening Ordered: 09/15/2023 [facility] Comment on above: Ordered: 09/15/2023 Patient Education Hiatal hernia Diverticulosis [facility] Work Phone: Immunizations Immunization Date Immunization Notes Care Provider Alice calhoun 06-01-2022 influenza virus vaccine, unspecified formulation Alyson Chiu [facility] Payers Date Payer Category Payer Self-pay 2022 [employer] ( and others) [id number] 2022 [employer] ( and others) [id number] 2022 [facility] e ( and others) [id number] 1986 Unknown [id number] [id number] 1986 Unknown [id number] 2.16.840.1.939644.3.579.2.593 1986 Unknown [id number] 2.16.840.1.112815.3.579.2.593 1986 Unknown [id number] 2.16.840.1.889410.3.579.2.727 1986 Unknown [id number] 2.16.840.1.319677.3.579.2.727 1986 Unknown [id number] 2.16.840.1.930011.3.579.2.727 1986 Unknown [id number] 2.16.840.1.624149.3.579.2.1286 1986 Unknown [id number] 2.16.840.1.785329.3.579.2.1286 1986 Unknown [id number] 2.16.840.1.684647.3.579.2.1286 1986 Unknown [id number] 2.16.840.1.980639.3.579.2.1286 1986 Unknown [id number] 2.16.840.1.524953.3.579.2.1259 1986 Unknown [id number] 2.16.840.1.755859.3.579.2.1259 1986 Unknown [id number] 2.16.840.1.199553.3.579.2.1259 1986 Unknown [id number] 2.16.840.1.920474.3.579.2.1259 1986 Unknown [id number] 2.16.840.1.204660.3.579.2.1259 1986 Unknown [id number] 2.16.840.1.202422.3.579.2.9 1986 Unknown [id number] 2.16.840.1.169788.3.579.2.1259 1986 Unknown [id number] 2.16.840.1.662082.3.579.2.9 1986 Unknown [id number] 2.16.840.1.035086.3.579.2.1259 1959 [employer] ( and others) [id number] Unknown [id number] 2.16.840.1.029694.3.579.2.531 Social History Date Type Detail Facility Start: 08-24-2023 End: 09-22-2023 Sex Assigned At [facility] Start: 01-26-2023 Tobacco smoking status Ex-smoker (finding) [facility] Start: 03-15-2023 Tobacco smoking status NHIS Smoker (finding) [facility] Start: 1985 Sex Assigned At Female [facility] Tobacco smoking stat us NHIS Tobacco smoking consumption unknown [facility] Start: 1985 Sex Assigned At Not on file [facility] Start: 01-03-2023 End: 08-24-2023 Tobacco smoking status DEIS Never smoked tobacco [facility] Start: 01-03-2023 End: 08-24-2023 Tobacco use and exposure Smokeless tobacco non-user [facility] Start: 08-24-2023 End: 09-22-2023 Alcohol intake Ex-drinker (finding) [facility] Start: 08-24-2023 End: 09-22-2023 History of Social function [facility] Start: 04-11-2023 [facility] How often to you [...] 01-26-2023 Functional Status No [facility] Clinical Notes 01-17-2023 to 11-02-2023 Sterling Aguilar MD - 11/02/2023 11:30 AM John [...] Depression Hypertension Hypothyroidism Kidney stones Migraines Seizure ([facility]) REVIEW OF SYSTEMS: Head and Neck: Negative [...] allowing me to participate in Lisa Allison [facility]. If there are any questions, please do not hesitate to call me. Sincerely, STERLING AGUILAR MD Video Visit via Real-time Synchronous Audiovisual Provider Location: [facility]- MEDICINE AT [address] [address] Patient Location: Patient's home Patient Location Glazier Helper: None Video Visit Consent Statement: I discussed [...] that there are some limitations compared to [id number] evaluations. We elected to proceed. documented in this encounter [facility] 10-18-2023 History of Presen t [...] telehealth rescheduled visit. Fred Chavez MD Professor, [facility] Maternal Medicine (we called the patient ourselves and were not able to successfully connect with her) documented in this encounter [facility] 09-22-2023 History of Presen t illness Narrative Headache/epigastric pain/blurry vision/swelling? No Cramping/contractions? No Abnormal vaginal discharge? No Spotting/vaginal bleeding? No Loss of fluid like your water may have broken? No Cats in the home? No Do you change the litter box? N/A Flu vaccine? No Genetic testing done this here or other office? Yes Have you been seen here at [facility] in a previous ? No Recent ER visits or hospitalizations? No Bring blood sugar log or meter with you today? (Please bring them with you for every visit at [facility]) N/A Traveled outside the country in [...] and the other consultants, we search on [employer] and all the available care everywhere epic I did review all the imaging studies of the patient available on EMR, ordered by the primary care physician and the other ruby on rails consultant HABITS: Patient activity no restrictions, diet [...] for completion of [place] [facility] [place]. 5. 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 Patient does have ultrasound office visit scheduled with us Thank you for allowing me to participate in Lisa Allison . If there any questions please do not hesitate to contact us. Sincerely, STERLING AGUILAR MD documented in this encounter [employer] 09-15-2023 History of Presen t illness Narrative [...] hour glucose order to have done at [facility]. Follow Up: Patient is to return [...] REMY Valdes documented in this encounter [facility] 08-19-2023 Miscellaneous Notes Formattin g of this note might be different from the original. LEFT A MESSAGE TO SCHEDULE USN AND CONSULT. 08/19/2023 1043 [facility]23 Telephone encount er Note LEFT A MESSAGE TO SCHEDULE USN AND CONSULT. 08/19/2023 1043 [facility] 05-19-2023 Evaluation note Encounter Date Diagnosis Assessment [...] start metamucile and probiotics RTO 3 months [employer] Other 08-15-2023 Procedure [facility]06-28-2023 Hospital Discharge instructions Patient Education [...] include: ?8 oz (237 mL) of milk, nxbtcmt-phnsrbtwffee-uvdhq milk, and calcium- fortifiedfruit juice. Calcium-fortified means [...] ?Spinach (cooked), rhubarb, beets, sweet potatoes, and Indonesian chard. ?Peanuts. ?Potato chips, swedish fries, and baked potatoes with skin on. ?Nuts and nut products. ?Chocolate. If you regularly take a diuretic medicine, make sure to eat at least 1 or 2 servings of fruits or vegetables that are high in potassium each day. These include: ?Avocado. ?Banana. ?[place], prune, carrot, or tomato juice. ?Baked [...] magnesium, fish oil, or vitamin B6. Take shfp-myk-qsvsdtp and prescription medicines only as told by [...] Casseroles. Pizza. Lasagna. Frozen meals. Potato chips. Greek fries. The items listed above may not [...] provider. Document Revised: 03/29/2022 Document Reviewed: 03/29/2022 [employer] Patient Education 2022 [employer] Follow Up Care 12/28/2022 12:57:40 With:Aram RUSSELL, Alyson Burdick, URL, URO Address: When:Within 6 Month(s) Comments:irasema FALK & YAMILETH [facility] 06-19-2023 Evaluation note* Encounter Date Diagnosis Assessment Notes Treatment Notes Treatment Clinical Notes Dec, Iron deficiency anemia (ICD-10 - D50.9) Will proceed with EGD Will request recent lab work done at [place]. Dec, GERD (gastroesophageal reflux disease) (ICD-10 - K21.9) Patient to continue on Omeprazole 40mg Dec, Diarrhea (ICD-10 - R19.7) Will proceed with Colonoscopy. [employer] Other Evaluation + Plan note Future Appointments Appointment Date:08/03/2023 10:00:00 AM Scheduled Provider:Alyson Chiu MD Location:[facility] Appointment Type:URO Office Visit [facility] evaluation + Plan note Future Appointments Appointment Date:08/03/2023 10:00:00 AM Scheduled Provider:Alyson Chiu MD Location:[facility] Appointment Type:URO Office Visit Diagnostic Tests Pending * Calculi Analysis [facility] Diagnosis Onset Date Resolution Status Iron deficiency anemia [facility] Work Phone: Evaluation note* Diagnosis Second trimester state, incidental Diabetes mellitus screening Screening for diabetes mellitus 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) Hypothyroidism, unspecified type (CMS/HCC) [facility] Diagnosis Essential hypertension affecting in second trimester- Primary [facility] Diagnosis Pre-existing essential hypertension during in second trimester- Primary Advanced maternal age in multigravida, second trimester Hypothyroid in , antepartum [facility] Diagnosis Essential hypertension affecting in second trimester- Primary [facility] N[facility]ative - Reported* Type [...] left knee meniscus Hospitalization History see above [employer] Other Hospital course Narrative No data available for this section [facility] Discharge instructions No data available for this section [facility] Additional Instructions DISCHARGE INSTRUCTIONS FOR [...] if you have any problems. -Office number [phone] Work Phone: InstructionsNot on filedocumented in this encounter [facility] on filedocumented in this encounter [facility] System[facility]ructionsNot on filedocumented in this encounter [facility]ructionsNot on filedocumented in this encounter [facility]ructionsNot on filedocumented in this encounter [facility] System[facility]ructionsNot on filedocumented in this encounter [facility] No data available for this section [facility] Summary Purpose Family History No Family [...] Procedures US MFM with or without consult Sterling Aguilar MD [address], [address] [place] [address] [facility] Maternal Med [address] [place] [address] Referral ID Status Reason Start Date Expiration Date V isits Requested Visits Authorized [id number] Pending Review 09/22/2023 09/21/2024 1 1 Additional Source Comments INFORMATION SOURCE (unrecogn ized section and content) DATE CREATED AUTHOR 01/07/2023 [facility] DATE CREATED AUTHOR AUTHOR'S ORGANIZ ATION 03/17/2023 [facility] DATE CREATED AUTHOR AUTHOR'S ORGANIZ ATION 08/05/2023 Bradley Hobbs [facility] DATE CREATED AUTHOR AUTHOR'S ORGANIZ ATION 10/19/2023 [facility] DATE CREATED AUTHOR AUTHOR'S ORGANIZ ATION 11/03/2023 [facility] DATE CREATED AUTHOR AUTHOR'S ORGANIZ ATION 12/10/[address] [facility] dical Specialists EPIC REASON FOR VISIT (unrecogniz ed section and content) Reason Comments Routine Visit Reason Comments Advanced Maternal Age Chronic Hypertension Hypothyroidism Patient Care team informatio n (unrecognized section and content) Team Status: Active Member Role Status Dates Wilber Mckeon [facility] Primary Care Provider Active Team Status: Inactive Member Role Status Dates Denys Landa MD Attending Provider Active Wilber Mckeon [facility] Primary Care Provider Active Transportation Services Representative Relationship Specialty Start Date End Date No Pcp, [place] [address] PCP - General Family Medicine 10/18/23 Transportation Services Representative Relationship Specialty Start Date End Date No Pcp, [place] [address] PCP - General Family Medicine 10/18/23 FOR [...] BE BASED ON THE PRIMARY CLINICAL RECORDS. [employer] provides no warranty or guarantee of the accuracy or completeness of information in this document.
[2023-12-12] MEDS: 0.9 % SODIUM CHLORIDE 1,000 ML 1000 ML IV (06:05)
[2023-12-12 06:53] LABS: Basophils Percent Auto 0.2 % (0.2-2.0); Eosinophils Percent Auto 0.4 % (0.9-7.0); Hematocrit 28.7 % (36.0-48.0); Hemoglobin 8.6 g/dL (12.0-16.0); Immature Granulocytes Abs Auto 0.04 10^3/uL (0.00-0.03); Immature Granulocytes Pct Auto 0.4 % (0.0-0.5); Lymphocytes Absolute Auto 1.8 10^3/uL (1.2-3.8); Lymphocytes Percent Auto 16.2 % (20.5-60.0); Mean Corpuscular Hemoglobin 21.4 pg (26.7-34.0); Mean Corpuscular Volume 71.6 fL (81.0-99.0); Mean Platelet Volume 10.1 fL (9.5-13.5); Monocytes Absolute Auto 0.7 10^3/uL (0.3-0.8); Neutrophils Absolute Auto 8.3 10^3/uL (1.4-6.5); Neutrophils Percent Auto 76.8 % (43.0-75.0); Platelet Count 255 10^3/uL (150-450); Red Blood Count 4.01 10^6/uL (4.20-5.40); Red Cell Distribution Width 16.8 % (11.0-15.0); White Blood Count 10.8 10^3/uL (4.0-11.0)
[2023-12-12 06:55] LABS: Bilirubin Urine NEGATIVE (NEGATIVE); Blood Urine NEGATIVE (NEGATIVE); Clarity Urine CLEAR (CLEAR); Color Urine YELLOW (YELLOW); Glucose Urine UA NEGATIVE (NEGATIVE); Ketones Urine NEGATIVE (NEGATIVE); Leukocyte Esterase Urine NEGATIVE (NEGATIVE); Nitrite Urine NEGATIVE (NEGATIVE); Protein Urine NEGATIVE (NEG/TRACE); Specific Gravity Urine 1.025 (1.005-1.025); Urobilinogen Urine 0.2 EU/dL (0.2-1.0)
[2023-12-12 07:04] LABS: Bacteria Urine MODERATE #/HPF (NONE SEEN); Cast Seen? NONE SEEN #/LPF (NONE SEEN); Crystals Seen? None Seen #/HPF (None Seen); Mucus Urine SMALL (NONE SEEN); RBC Urine 0-2 #/HPF (0-2); Squamous Epithelial Cell Urine FEW #/LPF (NONE/RARE); WBC Urine NONE SEEN #/HPF (NONE SEEN)
[2023-12-12 07:05] LABS: Amphetamine Screen Urine NEGATIVE (NEGATIVE); Barbiturates Screen Urine NEGATIVE (NEGATIVE); Benzodiazepines Screen Urine NEGATIVE (NEGATIVE); Buprenorphine Screen Urine NEGATIVE (NEGATIVE); Cannabinoid Screen Urine NEGATIVE (NEGATIVE); Cocaine Screen Urine NEGATIVE (NEGATIVE); Methadone Screen Urine NEGATIVE (NEGATIVE); Methamphetamines Screen Urine NEGATIVE (NEGATIVE); Opiate Screen Urine NEGATIVE (NEGATIVE); Oxycodone Screen Urine NEGATIVE (NEGATIVE); Phencyclidine Screen Urine NEGATIVE (NEGATIVE); Tricyclic Antidepressant Urine NEGATIVE (NEGATIVE)
[2023-12-12] MEDS: FAMOTIDINE/PF 20 MG/2 ML VIAL IV (07:10)
[2023-12-12] MEDS: METOCLOPRAMIDE HCL 10 MG/2 ML VIAL IVP (07:10)
[2023-12-12] MEDS: CITRIC ACID/SODIUM CITRATE 30 ML SOLUTION ORACIT SHOHL'S SOLN PO (07:10)
[2023-12-12] MEDS: 0.9 % SODIUM CHLORIDE 1,000 ML 125 ML IV (07:10)
[2023-12-12] MEDS: CEFAZOLIN SODIUM/DEXTROSE,ISO 2 GM/50 ML PIGGYBACK IV ×2 (07:10→16:06)
[2023-12-12] MEDS: LACTATED RINGER'S SOLUTION 1,000 ML 50 ML IV ×2 (08:05→08:30)
--- NOTE | 2023-12-12 08:45 | PM.ONB ---
Brief Operative Note Date of procedure: 12/12/23 Pre-op diagnosis general: iup at 37wks, previous c/s, ho gastric sleeve, anemia, hypothyroidism, htn Post-op diagnosis: same as pre-op Procedure: NAME OF PROCEDURE: [ section with bilateral salpingectomy ] PROCEDURE: Patient was taken back to the Operating Room where she was given a spinal anesthesia with Duramorph without difficulty. She was prepped and draped in the normal sterile fashion. A Pfannenstiel skin incision was then made 2?cm above the symphysis pubis and carried down to underlying rectus fascia using a Bovie. The fascia was incised in the midline and extended laterally using Lewis scissors. Two John clamps were placed on the superior aspect of the fascia and dissected off the underlying rectus muscles. The same was performed on the inferior aspect as well. The muscles were then in the midline. Peritoneum was identified and entered bluntly. The peritoneum was then extended superiorly and inferiorly with good visualization of the bladder. The bladder blade was inserted. Vesicouterine peritoneum was identified, tented up, and entered with Metzenbaum scissors. A bladder flap was then created digitally. The bladder blade was reinserted. A low transverse incision was made on the patient's uterus and extended laterally digitally. The infant was then delivered atraumatically after the bladder blade was removed in the cephalic position. The cord was clamped and cut. Cord blood was obtained. The infant was handed off to awaiting team. The patient's placenta was spontaneously delivered. The uterus was then exteriorized. The uterus was cleared of all clots and debris. The bladder blade was reinserted. The patient's uterine incision was closed using #0 Vicryl in a running lock fashion. Excellent hemostasis was assured.? The rt tube was identified and grasped with babock, the ligasure was used to transect and ligate the tube in its entirity, this was done on the contralateral side as well. The uterus was then returned to the patient's abdomen. The patient's abdomen was copiously irrigated using warm saline. Peritoneal gutters were cleared of all clots and debris. Again excellent hemostasis was assured. The patient's fascia was closed using #0 Vicryl in a running fashion. The patient's skin was closed using 4-0 Vicryl subcuticularly. The patient tolerated the procedure well. Sponge, lap, and needle counts were correct x2. The patient was taken to the Recovery Room in stable condition. Anesthesia: spinal Surgeon: Adrian Miguel Director Security Management: Catalina Gibbons Estimated blood loss (mL): 575 Pathology: other (placenta) Condition: stable Disposition: PACU Urinary Catheter Management Urinary Catheter Management Urethral: Cath placed during this visit: yes Urethral indwelling: No Insertion date: 12/12/23 Insertion time: 06:20
--- NOTE | 2023-12-12 08:47 | P.OBPRC_ITS ---
Procedure Pre-op/Post-op diagnoses: Pre-Op/Post-Op Diagnoses Operation Date: 12/12/23 07:30 <No data on this case meets the specified criteria> Procedure: Procedures Operation Date: 12/12/23 07:30 Actual Procedure Side Surgeon p Repeat with Bilateral Salpingectomy Bilateral Adrian Miguel DO Fruit Grading Supervisor: Catalina Gibbons Estimated blood loss (mL): 575 Disposition: floor Anesthesia type: Spinal
[2023-12-12] MEDS: BUPIVACAINE HCL 0.25% PF 25 MG/10 ML VIAL INJ (09:05)
[2023-12-12] MEDS: BUPIVACAINE HCL 0.5% PF 50 MG/10 ML VIAL INJ (09:05)
[2023-12-12] MEDS: 0.9 % SODIUM CHLORIDE 10 ML VIAL 20 ML INJ (09:05)
[2023-12-12] MEDS: BUPIVACAINE LIPOSOME/PF 266 MG/13.3 ML VIAL INJ (09:05)
[2023-12-12] MEDS: OXYTOCIN/0.9 % SODIUM CHLORIDE 20 UNITS/1,000 ML PLAST..BAG 125 UNIT IV (09:25)
[2023-12-12] MEDS: ACETAMINOPHEN 500 MG TABLET 1000 MG PO (16:06)
[2023-12-12] MEDS: KETOROLAC TROMETHAMINE 30 MG/ML VIAL IVP ×2 (16:06→22:28)
[2023-12-12] MEDS: ENOXAPARIN SODIUM 40 MG/0.4 ML SYRINGE SUBQ (22:28)
[2023-12-13] VITALS (10 sets, daily range): BP systolic 138–167; BP diastolic 64–77; PULSE 63–85; TEMP 36.6–37.1; O2SAT 97
[2023-12-13] MEDS: ACETAMINOPHEN 500 MG TABLET 1000 MG PO ×3 (01:58→18:13)
[2023-12-13] MEDS: METOPROLOL SUCCINATE 100 MG TAB.ER.24H PO (02:00)
[2023-12-13] MEDS: KETOROLAC TROMETHAMINE 30 MG/ML VIAL IVP (05:26)
[2023-12-13 06:07] LABS: Basophils Percent Auto 0.2 % (0.2-2.0); Eosinophils Absolute Auto 0.1 10^3/uL (0.0-0.7); Eosinophils Percent Auto 0.6 % (0.9-7.0); Immature Granulocytes Abs Auto 0.05 10^3/uL (0.00-0.03); Immature Granulocytes Pct Auto 0.4 % (0.0-0.5); Lymphocytes Percent Auto 15.9 % (20.5-60.0); Mean Corpuscular HGB Conc 29.2 g/dL (29.9-35.2); Mean Corpuscular Hemoglobin 21.3 pg (26.7-34.0); Mean Corpuscular Volume 73.2 fL (81.0-99.0); Mean Platelet Volume 10.3 fL (9.5-13.5); Monocytes Absolute Auto 0.7 10^3/uL (0.3-0.8); Monocytes Percent Auto 5.8 % (1.7-12.0); Neutrophils Absolute Auto 9.7 10^3/uL (1.4-6.5); Neutrophils Percent Auto 77.1 % (43.0-75.0); Platelet Count 210 10^3/uL (150-450); Red Blood Count 3.28 10^6/uL (4.20-5.40); White Blood Count 12.5 10^3/uL (4.0-11.0)
[2023-12-13] MEDS: OXYCODONE HCL 5 MG TABLET PO ×3 (08:13→20:59)
[2023-12-13] MEDS: DOCUSATE SODIUM 100 MG CAPSULE PO ×2 (08:14→20:12)
--- NOTE | 2023-12-13 08:40 | P.OBPN_ITS ---
OB - PN: Subj Subjective Patient comments: no complaints [place] status: doing well [place] feeding status: exclusively Exam Constitutional Vital Signs, click to edit/add: Last Vital Signs Temp 98.4 F 12/13/23 05:40 Pulse 78 12/13/23 08:16 Resp 16 12/13/23 05:40 BP 158/72 H 12/13/23 08:16 Pulse Ox 97 12/13/23 05:40 O2 Del Method Room Air 12/13/23 05:40 Documenting provider has reviewed patient's vital signs: yes Common normals: no apparent distress General appearance: cooperative HENMT Common normals: normocephalic Eye Common normals: EOMs intact bilaterally Neck & C-Spine Common normals: full ROM General: normal visual inspection Lymph Lymphatic: no lymphadenopathy noted Chest Common normals: inspection of chest normal Respiratory Common normals: normal respiratory effort Effort & inspection: able to speak in complete sentences Auscultation: clear to auscultation bilaterally Cardio Common normals: regular rate and regular rhythm Rate: regular rate Rhythm: regular rhythm GI Common normals: Normal to inspection, nondistended, normoactive bowel sounds present Inspection: normal to inspection Auscultation: normoactive bowel sounds Palpation: soft Common normals: no CVA tenderness Back & Pelvis Common normals: no CVA tenderness Thoracic spine/upper back: normal to inspection Neuro Common normals: oriented x3 Sensorium/orientation: awake, alert, oriented to person, oriented to place and oriented to time Psych Psychiatry clinicians, please identify where your Mental Status Exam is documented: Mental Status Exam documented in the separate MSE Results Labs Labs: Short CBC 12/13/23 Range/Units 05:45 WBC 12.5 H (4.0-11.0) 10^3/uL Hgb 7.0 L (12.0-16.0) g/dL Hct 24.0 L (36.0-48.0) % Plt Count 210 (150-450) 10^3/uL Urinary Catheter Management Urinary Catheter Management Urethral: Cath placed during this visit: yes, but has since been removed by the nurse Urethral indwelling: No Insertion date: 12/12/23 Insertion time: 06:20 Removal date: 12/12/23 Removal time: 20:30 OB - PN: A/P Plan - day: 1 Plan: routine postop care Time Spent with Patient Time: Total time spent is greater than 50% in coordination of care (as documented) at patient's floor/unit and/or counseling patient: Total time spent with greater than 50% in coordination of care (as documented) at patient's floor/unit and/or counseling patient: less than 15 minutes
[2023-12-13] MEDS: BUPROPION HCL 150 MG XL TABLET 24H PO (09:56)
[2023-12-13] MEDS: LEVOTHYROXINE SODIUM 25 MCG TABLET PO (09:56)
[2023-12-13] MEDS: ESCITALOPRAM 10 MG TABLET 5 MG PO (09:56)
[2023-12-13] MEDS: LEVOTHYROXINE 137 MCG 137 EACH PO (09:56)
[2023-12-13] MEDS: FERROUS SULFATE 325 MG TABLET PO ×2 (09:58→20:12)
--- NOTE | 2023-12-13 11:34 | RESP.RT ---
done per nursing
[2023-12-13] MEDS: IBUPROFEN 400 MG TABLET 800 MG PO ×2 (13:17→20:12)
[2023-12-13] MEDS: ENOXAPARIN SODIUM 40 MG/0.4 ML SYRINGE SUBQ (20:12)
[2023-12-14 00:24] VITALS: BP 134/70; PULSE 71; TEMP 37.2
[2023-12-14] MEDS: OXYCODONE HCL 5 MG TABLET PO ×2 (00:48→07:26)
[2023-12-14] MEDS: IBUPROFEN 400 MG TABLET 800 MG PO ×2 (02:42→09:28)
[2023-12-14] MEDS: ACETAMINOPHEN 500 MG TABLET 1000 MG PO ×2 (02:42→10:34)
[2023-12-14 07:25] VITALS: TEMP 36.8
[2023-12-14 07:27] VITALS: BP 157/84; PULSE 75
--- NOTE | 2023-12-14 07:52 | PM.OBPN ---
OB - PN: Subj Subjective Patient comments: no complaints and pain well controlled [place] status: doing well Exam Constitutional Vital Signs, click to edit/add: Last Vital Signs Temp 98.9 F 12/14/23 00:24 Pulse 75 12/14/23 07:27 Resp 16 12/13/23 15:40 BP 157/84 H 12/14/23 07:27 Pulse Ox 97 12/13/23 05:40 O2 Del Method Room Air 12/14/23 00:24 Documenting provider has reviewed patient's vital signs: yes Common normals: no apparent distress Respiratory Common normals: normal respiratory effort and clear to auscultation bilaterally Cardio Common normals: regular rate and regular rhythm GI Common normals: Normal to inspection, nondistended, normoactive bowel sounds present Extremity Common normals: no clubbing, cyanosis or edema and no calf tenderness Urinary Catheter Management Urinary Catheter Management Urethral: Cath placed during this visit: yes, but has since been removed by the nurse Urethral indwelling: No Insertion date: 12/12/23 Insertion time: 06:20 Removal date: 12/12/23 Removal time: 20:30 OB - PN: A/P Plan - day: 2 Plan: routine postop care, discharge home and other (rx on chart, fu 1wk, precuations given) Time Spent with Patient Time: Total time spent is greater than 50% in coordination of care (as documented) at patient's floor/unit and/or counseling patient: Total time spent with greater than 50% in coordination of care (as documented) at patient's floor/unit and/or counseling patient: less than 15 minutes
[2023-12-14] MEDS: METOPROLOL SUCCINATE 100 MG TAB.ER.24H PO (08:33)
[2023-12-14] MEDS: FERROUS SULFATE 325 MG TABLET PO (09:28)
[2023-12-14] MEDS: DOCUSATE SODIUM 100 MG CAPSULE PO (09:28)
[2023-12-14] MEDS: LEVOTHYROXINE 137 MCG 137 EACH PO (09:30)
[2023-12-14] MEDS: LEVOTHYROXINE SODIUM 25 MCG TABLET PO (09:30)
[2023-12-14] MEDS: BUPROPION HCL 150 MG XL TABLET 24H PO (09:30)
[2023-12-14] MEDS: ESCITALOPRAM 10 MG TABLET 5 MG PO (09:30)
--- NOTE | 2023-12-14 10:40 | DS_ITS ---
DISCHARGE DATE: ??12/14/2023 PRIMARY DIAGNOSES: 1.? Intrauterine at 37 weeks. 2.? Previous . 3.? History of gastric sleeve. 4.? Anemia. 5.? Hypothyroidism. 6.? Chronic hypertension. PROCEDURE:? section with bilateral salpingectomy. HOSPITAL COURSE:? As expected.? Please see chart for full details.? LABORATORY DATA:? Please see chart. COMPLICATIONS:? None. DISCHARGE CONDITION:? Stable. CONSULTATION:? Anesthesia. DISCHARGE INSTRUCTIONS: 1.? Diet:? Regular. 2.? Medications: a.? Percocet 5/325 one to two p.o. every 4-6 hours p.r.n. pain. b.? Motrin 800 one p.o. every 8 hours p.r.n. pain. 3.? Followup in one week. Restrictions:? Pelvic rest for 6 weeks.? No heavy lifting.? May drive when pain free and no longer on narcotics. [facility]
== END 2023-12-14 10:40 | disposition home or self-care (01) | DRG 785 ==
PROVIDERS: Admitting Provider Obstetrics & Gynecology; PCP Nurse Practitioner Primary Care; Visit Provider Obstetrics & Gynecology
PROC: 10D00Z1 Extraction of Products of Conception, Low, Open Approach (ICD-10-PCS; CPT 59514; principal; 2023-12-12 07:30)
DX: O10.92 Unspecified pre-existing hypertension complicating childbirth (principal); O34.211 Maternal care for low transverse scar from previous cesarean delivery; O99.284 Endocrine, nutritional and metabolic diseases complicating childbirth; E03.9 Hypothyroidism, unspecified; O99.844 Bariatric surgery status complicating childbirth; Z3A.37 37 weeks gestation of pregnancy; Z37.0 Single live birth; D50.9 Iron deficiency anemia, unspecified; Z86.16 Personal history of COVID-19; Z87.442 Personal history of urinary calculi; Z90.49 Acquired absence of other specified parts of digestive tract; O99.344 Other mental disorders complicating childbirth; F41.8 Other specified anxiety disorders
CPT/HCPCS: 36415; 51702; 64488; 80307; 81001; 85025; 86850; 86900; 86901; 88302; 88307; 94667; 94668; 96372; 96374; 96375; 96376; J1094

== ENCOUNTER 2024-03-20 07:26 | Outpatient (RCR) | payer OTHER, SELFPAY | END 2024-03-31 23:59 | disposition home or self-care (01) | LOC: HEMC 07:26 | PROVIDERS: PCP Nurse Practitioner Family; Visit Provider Internal Medicine Hematology & Oncology | DX: D50.9 Iron deficiency anemia, unspecified (principal); K90.9 Intestinal malabsorption, unspecified; D64.9 Anemia, unspecified; Z98.84 Bariatric surgery status | CPT/HCPCS: G0463 ==

== ENCOUNTER 2024-03-29 09:03 | Outpatient (OUT) | payer OTHER, SELFPAY ==
--- NOTE | 2024-03-29 09:06 | CT_ITS ---
The [address] [address] Patient Name: TIFFANI GROSSMAN MRN: [id number] date: 1985 Sex: F Assigned Patient Location: CT Current Patient Location: Accession/Order Number: [id number] Exam Date: 03/29/2024 10:15 Report Date: 03/30/2024 07:52 At the request of: YOAN [place] Procedure: CT abdomen pelvis w con EXAM: CT abdomen pelvis w con HISTORY: Hernia Abdominal Wall, Left Lower Quadrant Mass COMPARISON: None. TECHNIQUE: Following intravenous administration of 100 cc of Omnipaque 350, axial soft tissue windows of the abdomen and pelvis with coronal and sagittal reformats. CT dose reduction technique was used including Automated Exposure Control. Findings: ABDOMEN: Small region of focal fatty infiltration within segment 4 of the liver adjacent falciform ligament. The gallbladder is surgically absent. Spleen, pancreas, adrenal glands and kidneys are unremarkable the bilateral ureters are nondilated. Small hiatal hernia. Postsurgical changes involving the stomach. Otherwise, the bowel is unremarkable without evidence of wall thickening or obstruction. The appendix is surgically absent. The aorta is normal caliber. No enlarged abdominal lymph nodes or free abdominal fluid. Pelvis: Large hypogastric ventral hernia containing fat nonobstructed small bowel. Unremarkable bladder. The uterus is present and unremarkable within the limits of CT. No enlarged pelvic lymph nodes or free pelvic fluid. No aggressive sclerotic or lytic osseous lesions. Multilevel degenerative spondylosis. CT/CT abdomen pelvis w con IMPRESSION: 1. Large hypogastric ventral hernia. 2. Other nonemergent findings, as discussed above. Electronically authenticated by: EDDIE CERRATO Date: 03/30/2024 07:52
== END 2024-03-29 09:04 | disposition home or self-care (01) ==
LOC: CT 09:03
PROVIDERS: PCP Nurse Practitioner Family; Visit Provider Obstetrics & Gynecology
DX: K43.9 Ventral hernia without obstruction or gangrene (principal); R19.04 Left lower quadrant abdominal swelling, mass and lump
CPT/HCPCS: 74177; Q9967

== ENCOUNTER 2024-04-13 07:35 | Outpatient (RCR) | payer OTHER, SELFPAY ==
[2024-04-05 08:54] VITALS: BP 145/91; PULSE 77; TEMP 36.9; O2SAT 98
[2024-04-05] MEDS: FERUMOXYTOL 510 MG in 0.9 % SODIUM CHLORIDE 100 ML 234 MG IV (09:08)
--- NOTE | 2024-04-05 09:50 | PC.NURSE ---
0854: Pt to [facility] amb. for iron infusion. Seated in recliner. VSS. Denies questions regarding infusion. IV initiated to right arm without difficulty. Pt. tolerated without c/o.
--- NOTE | 2024-04-05 09:52 | PC.NURSE ---
0908: IV Feraheme initiated at this time. Pt. given ice and warm blanket per request. 0942: Infusion completed at this time without s&s of adverse reaction. IV d/c'd, pressure to site. D/c'd amb. to home.
[2024-04-13 09:04] VITALS: BP 128/84; PULSE 64; TEMP 36.4; O2SAT 95
[2024-04-13] MEDS: FERUMOXYTOL 510 MG in 0.9 % SODIUM CHLORIDE 100 ML 234 MG IV (09:24)
== END 2024-04-30 23:59 | disposition home or self-care (01) ==
LOC: HEMC 07:35
PROVIDERS: PCP Nurse Practitioner Family; Visit Provider Internal Medicine Hematology & Oncology
DX: D50.9 Iron deficiency anemia, unspecified (principal); K90.9 Intestinal malabsorption, unspecified; D64.9 Anemia, unspecified
CPT/HCPCS: 96365; Q0138

== ENCOUNTER 2024-05-28 07:33 | Outpatient (RCR) | payer OTHER, SELFPAY ==
[2024-05-01 00:05] VITALS: BP 128/84; PULSE 64; TEMP 36.4; O2SAT 95
[2024-05-28 10:09] VITALS: BP 139/84; PULSE 65; TEMP 36.6; O2SAT 98
[2024-05-28] MEDS: FERRIC CARBOXYMALTOSE 750 MG in 0.9 % SODIUM CHLORIDE 250 ML 795 MG IV (10:10)
== END 2024-05-31 23:59 | disposition home or self-care (01) ==
LOC: HEMC 07:33
PROVIDERS: PCP Nurse Practitioner Family; Visit Provider Internal Medicine Hematology & Oncology
DX: D50.9 Iron deficiency anemia, unspecified (principal); D64.9 Anemia, unspecified; K90.9 Intestinal malabsorption, unspecified; Z98.84 Bariatric surgery status; Z98.51 Tubal ligation status; Z90.49 Acquired absence of other specified parts of digestive tract; Z87.891 Personal history of nicotine dependence
CPT/HCPCS: 96365; G0463; J1439

== ENCOUNTER 2024-06-11 10:19 | Outpatient (OUT) | payer OTHER, SELFPAY ==
--- NOTE | 2024-06-11 | XR_ITS ---
The [address] [address] Patient Name: TIFFANI GROSSMAN MRN: [id number] date: 1985 Sex: F Assigned Patient Location: [facility] Current Patient Location: Accession/Order Number: [id number] Exam Date: 06/11/2024 10:45 Report Date: 06/14/2024 04:28 At the request of: SHANNON LYNCH Procedure: XR ankle RT min 3V PROCEDURE: XR ankle RT min 3V HISTORY: RIGHT ANKLE PAIN since injury 3 months ago COMPARISON: None. FINDINGS: BONES:Small ossifications adjacent the tip of the medial and lateral malleolus. Normal joint spacing and smooth articular surface. SOFT TISSUES:No visible soft tissue swelling. EFFUSION:None visible. OTHER: Negative. XR/XR ankle RT min 3V IMPRESSION: 1. Subacute to chronic avulsion fracture from tip of medial and lateral malleolus. No prior studies for comparison. Electronically authenticated by: JOIE AYALA Date: 06/14/2024 04:28
== END 2024-06-11 10:20 | disposition home or self-care (01) ==
LOC: RAD 10:20
PROVIDERS: PCP Nurse Practitioner Family; Visit Provider Nurse Practitioner Family
DX: M25.571 Pain in right ankle and joints of right foot (principal); S99.911A Unspecified injury of right ankle, initial encounter; S82.844A Nondisplaced bimalleolar fracture of right lower leg, initial encounter for closed fracture
CPT/HCPCS: 73610

== ENCOUNTER 2024-08-29 07:36 | Outpatient (RCR) | payer OTHER, SELFPAY ==
--- OUTSIDE RECORDS SUMMARY | 2024-08-21 07:33 | XMS_ITS | CCD ---
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 Officer [employer] Name Role Phone KWAN ., LUKE Admitting Unavailable KWAN ., LUKE Attending Unavailable DR PARDEEP SLAUGHTER Consulting Unavailable SHAMMO, WILBER Primary Care Unavailable GENI .ALYSON Consulting Unavailable LOMBARDOLINDA JENKINS Consulting Unavailable ITKIN, ALEXA Consulting Unavailable KWAN ., LUKE Consulting Unavailable SHAMMO, WILBER Attending Unavailable SHAMMO, WILBER Admitting Unavailable SHAMMO, WILBER Consulting Unavailable SHAMMO, WILBER Attending Unavailable SHAMMO, WILBER Admitting Unavailable SHAMMO, WILBER Primary Care Unavailable SHAMMO, WILBER Consulting Unavailable Denys Gallego Unavailable SHAMMO, WILBER TOMASA Primary Care Physician MD Denys Gallego Attending Provider Shammo, BUSINESS DEAN- Wilber T Primary Care Provider Unavailable Primary Care Provider Unavailabl e Unavailable Primary Care Provider Unavailabl e No Pcp, No Pcp Primary Care Provider Unavailabl e MYRIAM, ADRIAN R Referring Unavailable NO PCP, NO PCP Primary Care Unavailable HÉCTOR AGUILAR Attending Unavailable MYRIAM, ADRIAN R Referring Unavailable NO PCP, NO PCP Primary Care Unavailable MYRIAM, ADRIAN R Referring Unavailable HÉCTOR AGUILAR Attending Unavailable MYRIAM, ADRIAN R Referring Unavailable Shammo, BUSINESS DEAN-BC Wilber T Primary Care Provider [phone] Katey Kerry Attending Provider [phone] MYRIAM, ADRIAN Attending Unavailable DOMINIC, KASSANDRA Attending Unavailable MYRIAM, ADRIAN Attending Unavailable DOMINIC, KASSANDRA Attending Unavailable MYRIAM, ADRIAN Attending Unavailable DOMINIC, KASSANDRA Attending Unavailable MYRIAM, ADRIAN Attending Unavailable DOMINIC, KASSANDRA Attending Unavailable MYRIAMADRINA Attending Unavailable DOMINIC, KASSANDRA Attending Unavailable DOMINIC, KASSANDRA Attending Unavailable Myriam, DO Adrian Attending Provider ELISABETH BECKMAN Primary Care Physician SHAMMO, WILBER Primary Care Unavailable ELISABETH BECKMAN Referring Unavailab King [place] Attending Unavailable SHAMMO, WILBER Primary Care Unavailable SHAMMO, WILBER Primary Care Unavailable Alyson Chiu Attending Unavailable SHAMMO, WILBER Primary Care Unavailable Myriam DO, Adrian R Unavailable Myriam DO, Adrian R Unavailable Adrian Kerr Admitting Unavailable Shammo, Wilber T Primary Care Unavailable Myriam, Adrian Attending Unavailable Felipe Quiñones Attending Unavai lable Koromia, Felipe Love Admitting Unavai lable Shammo, Wilber T Primary Care Unavailable Shammo, BUSINESS DEAN-BC Wilber T Primary Care Provider [phone] MD Felipe Quiñones Attending Provider Shammo BUSINESS DEAN-BC, Wilber T Primary Care Provider [phone] Ishmael RUSSELL, Felipe Love Attending Provider Elisabeth Beckman NP Primary Care Provider ADRIAN KERR Attending Unavailable MOISÉS, AFRICA D Attending Unavailable ELISABETH BECKMAN Referring Unavailab le HILLS, AFRICA D Referring Unavailable HILLS, AFRICA D Referring Unavailable HILLS, AFRICA D Attending Unavailable HILLS, AFRICA D Referring Unavailable HILLS, AFRICA D Referring Unavailable HILLS, AFRICA D Attending Unavailable HILLS, AFRICA D Referring Unavailable PRAVEENA, XIAOXI Referring Unavailable HELM, SHARON Attending Unavailable PRAVEENA, XIAOXI Referring Unavailable GORTY, RENETTA Referring Unavailable PRAVEENA, XIAOXI Referring Unavailable PRAVEENA, XIAOXI Attending Unavailable GORTY, RENETTA Referring Unavailable PRAVEENA, XIAOXI Referring Unavailable HELM, SHARON Attending Unavailable GORTY, RENETTA Referring Unavailable SELF Referring Unavailable OLIVAELENAITA Attending Unavailable PRAVEENA, XIAOXI Attending Unavailable OLIVA AJITA Referring Unavailable PRAVEENA, XIAOXI Referring Unavailable GORTY, RENETTA Attending Unavailable LALA ZUNIGA Attending Unavailable RAINE GRISSOM Referring Unavailable Allergies Allergy Classification Reported Allergen(s) Allergy Type Date of Onset Reaction(s) Facility (3 sources) Penicillin Drug Allergy 3 Unknown [facility] (20 sources) Penicillins; Translations: [penicillins] Allergy to substance 3 Anaphylaxis (disorder), Anaphylaxis, Unknown, Cough, Hives, Itching, Rash, Shortness of Breath, Swelling [facility] (18 sources) topiramate; Translations: [TOPIRAMATE] Drug Allergy 3 Intolerance [facility] (10 sources) Penicillin G Drug Allergy 3 Unknown [facility] (10 sources) Topiramate Allergy to substance 3 [facility] Medications Current Medications Medication Drug Class(es) Dates Sig (Normalized) Sig (Original) acetaminophen 325 mg oral capsule (18 sources) take 2 capsules by mouth every six hours as needed for pain acetaminophen (Tylenol) 325 MG capsule Take 650 mg by mouth every 6 (six) hours if needed for mild pain Active acetaminophen 325 mg / oxyCODONE hydrochloride 5 mg oral tablet (13 sources) Opioid Agonist Start: 12-14-2023 End: 06-20-2024 take 1 tablet by mouth every six hours oxyCODONE-acetamin ophen (PERCOCET) 5-325 mg tablet Take 1 tablet by mouth q 6 HR. 12/14/2023 Active amLODIPine 10 mg oral tablet (20 sources) Dihydropyridine Calcium Channel Harsh Start: 09-24-2022 End: 07-04-2024 take 1 tablet by mouth once in the morning amLODIPine (Norvasc) 10 MG tablet Indications: Hypertension affecting in second trimester TAKE 1 TABLET BY MOUTH IN THE MORNING 30 tablet 11 05/18/2024 Active amLODIPine 10 mg / atorvastatin 10 mg oral tablet (10 sources) Dihydropyridine Calcium Channel Harsh, HMG-CoA Reductase Inhibitor amLODIPine-Atorvas tatin 10-10 mg per tablet Active 24 hr buPROPion hydrochloride 300 mg extended release oral tablet (20 sources) Aminoketone Start: 05-24-2024 End: 06-19-2024 take 1 tablet by mouth once daily in the morning Bupropion Hcl (Wellbutrin Xl) 300 mg tablet extended release 24 hr Active 300 MG PO Every morning 90 90 June 19, 2024 10:20am Start: 02-28-2024 End: 05-24-2024 take 1 tablet by mouth once daily Bupropion Hcl 150 mg tablet extended release 24 hr Discontinued 150 MG PO Daily February 27, 2024 11:00pm May 24, 2024 9:46am Start: 09-14-2023 End: 11-30-2024 take 1 tablet by mouth every twenty-four hours in the morning buPROPion XL (Wellbutrin XL) 150 MG 24 hr tablet Indications: Anxiety with depression TAKE 1 TABLET BY MOUTH IN THE MORNING DO NOT CRUSH, CHEW, OR SPLIT 30 tablet 11 05/18/2024 Active busPIRone hydrochloride 10 m g oral tablet (16 sources) Start: 08-31-2022 busPIRone (BUS PAR) 10 mg tablet Take 10 mg by mouth. 08/31/2022 Active chlorhexidine gluconate 1.2 mg/ml mouthwash (18 sources) Start: 09-28-2022 Chlorhexidine Gluconate (PERIDEX) 0.12 % solution TAKE 15 ML IN MOUTH & SWISH FOR 30 SECONDS THEN SPIT OUT TWICE DAILY FOR 20 DAYS 09/28/2022 Active Start: 09-28-2022 chlorhexidine (PERIDEX) 0.12 % solution TAKE 15 ML IN MOUTH & SWISH FOR 30 SECONDS THEN SPIT OUT TWICE DAILY FOR 20 DAYS 0 09/28/2022 Active clindamycin 300 mg oral capsule (10 sources) Lincosamide Antibacterial Start: 01-19-2024 take 1 capsule by mouth four times daily at bedtime clindamycin (CLEOCIN) 300 mg capsule TAKE 1 CAPSULE BY MOUTH FOUR TIMES DAILY (IN THE MORNING, at noon, IN THE EVENING, and BEFORE bedtime) FOR 10 DAYS 01/19/2024 Active diclofenac sodium 75 mg delayed release oral tablet (20 sources) Nonsteroidal Anti-inflammatory Drug Start: 03-28-2024 take 1 tablet by mouth every twelve hours diclofenac, EC, (VOLTAREN) 75 mg EC tablet Take 1 tablet by mouth every 12 hours. 03/28/2024 Active Start: 03-14-2023 End: 02-28-2024 take 1 tablet by mouth twice daily Diclofenac Sodium 75 mg tablet,delayed release (DR/EC) Discontinued 75 MG PO Twice daily March 13, 2023 11:00pm February 28, 2024 7:19am Start: 02-21-2023 diclofenac (Vo ltaren) 75 MG EC tablet every 12 (twelve) hours 0 02/21/2023 Active escitalopram 10 mg oral tablet (20 sources) Serotonin Reuptake Inhibitor Start: 01-26-2023 End: 08-17-2024 take 1 tablet by mouth once daily escitalopram (Lexapro) 10 MG tablet Indications: Anxiety with depression TAKE 1 TABLET BY MOUTH DAILY 30 tablet 3 05/18/2024 08/17/2024 Discontinued (Therapy completed) take 1 tablet by pablo th every twenty-four hours Escitalopram Oxalate 5 MG 1 tablet Orall y Once a day Active fluocinolone acetonide 0.1 mg/ml topical oil (2 sources) Corticosteroid Fluocinolone Bonifacio tonide Scalp 0.01 % 1 application Externally Twice a day Active fluocinonide 0.5 mg/ml topical solution (20 sources) Corticosteroid Start: 09-25-2022 End: 06-11-2024 fluocinonide (Lidex) 0.05 % external solution APPLY TO THE AFFECTED AREA(S) topically EVERY OTHER DAY FOR 30 DAYS 06/11/2024 Active fluocinonide (LI DEX) 0.05 % external solution APPLY TO THE AFFECTED AREA(S) topically DAILY Active hydrOXYzine pamoate 25 mg oral capsule (16 sources) Antihistamine Start: 10-14-2022 take 1 capsule by mouth every twelve hours as needed hydrOXYzine pamoate (VISTARIL) 25 mg capsule Take 1 capsule by mouth two times a day as needed. 10/14/2022 Active ibuprofen 800 mg oral tablet (20 sources) Nonsteroidal Anti-inflammatory Drug Start: 05-10-2024 Ibuprofen 800 mg tablet Active 800 MG PO every 6 to 8 hours as needed May 09, 2024 11:00pm Start: 03-13-2024 ibuprofen 800 MG tablet 03/13/2024 Active iron carbonyl 15 mg chewable tablet (2 sources) Start: 01-26-2023 Carbonyl Iron (Iron Chews Pediatric) 15 MG chewable tablet Chew 0 01/26/2023 Active Iron Chews (2 sources) Start: 01-26-2023 take 1 mg by mouth once daily Iron Chews mg, Oral, Daily, Refills(s) 0 Start Date: 01/26/23 Status: Ordered levothyroxine sodium 0.137 mg oral tablet (20 sources) l-Thyroxi ne Start: 03-13-2024 take 1 tablet by mouth once daily levothyroxine 25 mcg (0.025 mg) Tab 25 mcg = 1 tab(s), Oral, Daily, Refills(s) 0 Start Date: 03/13/24 Status: Ordered Start: 11-21-2023 End: 07-24-2024 take 1 tablet by mouth before mealtime levothyroxine (Synthroid, Levoxyl) 25 MCG tablet Indications: Other specified hypothyroidism (CMS/HCC) TAKE 1 TABLET BY MOUTH IN THE MORNING BEFORE MEALS WITH the current dosage 30 tablet 3 11/21/2023 Active Start: 09-01-2023 take 1 tablet by pablo th before mealtime levothyroxine (Synthroid, Levoxyl) 25 MCG tablet Indications: Other specified hypothyroidism (CMS/HCC) TAKE 1 TABLET BY MOUTH IN THE MORNING BEFORE MEALS *tk along with current dosage* 30 tablet 3 09/01/2023 Active Start: 03-09-2023 Synthroid 137 MCG tablet Take 137.5 mcg by mouth in the morning. Take before meals. 0 03/09/2023 Active Start: 01-26-2023 take 1 capsule by mo uth once daily levothyroxine 137 mcg (0.137 mg) oral capsule 137 mcg = 1 cap(s), Oral, Daily, Refills(s) 0 Start Date: 01/26/23 Status: Ordered Start: 08-23-2022 take 1 tablet by pablo th before mealtime levothyroxine (Synthroid, Levoxyl) 137 MCG tablet Indications: Elevated TSH TAKE 1 TABLET BY MOUTH IN THE MORNING BEFORE MEALS 30 tablet 2 05/18/2024 Active Levothyroxine So dium Active meclizine hydrochloride 25 m g oral tablet (14 sources) Antiemetic Start: 03-14-2023 meclizine (Ant ivert) 25 MG tablet every 12 (twelve) hours 0 03/14/2023 Active Start: 03-14-2023 End: 02-28-2024 take 1 tablet by mouth once daily as needed for dizziness Meclizine 25 mg Tablet Discontinued 25 MG PO Daily as needed for Dizziness March 13, 2023 11:00pm February 28, 2024 7:19am Start: 01-26-2023 take 1 mg by mouth once daily meclizine 25 mg oral tablet, chewable mg tab(s), Chewed, Daily, Refills(s) 0 Start Date: 01/26/23 Status: Ordered take 1 tablet by pablo th every twelve hours Meclizine HCl 25 MG 1 tablet as needed Orally every 12 hrs Active melatonin 1 mg oral capsule (20 sources) Start: 03-14-2023 Melatonin 1 MG capsule Bedtime 0 03/14/2023 Active Start: 03-14-2023 End: 02-28-2024 take 1 tablet by mouth at bedtime Melatonin 12 mg Tablet Discontinued 12 MG PO Bedtime March 13, 2023 11:00pm February 28, 2024 7:19am melatonin 1 mg c hew Take by mouth. Active Melatonin 1 MG c hewable tablet Chew 1 each in the morning. 0 Active melatonin 1 mg t ablet,chewable Chew and swallow. 0 Active meloxicam 15 mg oral tablet (4 sources) Nonsteroidal Anti-inflammatory Drug Start: 07-10-2024 End: 10-08-2024 take 1 tablet by mouth once daily at mealtime meloxicam (Mobic) 15 MG tablet Indications: Sinus tarsi syndrome of right ankle Take 1 tablet (15 mg) by mouth Daily With food. 30 tablet 2 07/10/2024 10/08/2024 Active 24 hr metoprolol succinate 100 mg extended release oral tablet (20 sources) beta-Adrenergic Harsh Start: 03-14-2023 End: 02-28-2024 take 4 tablets by mouth once daily Metoprolol Succinate 100 mg tablet extended release 24 hr Discontinued 25 MG PO Daily March 13, 2023 11:00pm February 28, 2024 7:19am Start: 03-14-2023 End: 02-28-2024 take 25 mg by mouth once daily Metoprolol Succinate Di scontinued 25 MG PO Daily March 14, 2023 12:00am February 28, 2024 8:19am Start: 09-09-2022 End: 12-13-2023 take 1 tablet by mouth every twenty-four hours in the morning metoprolol succinate XL (Toprol-XL) 100 MG 24 hr tablet Indications: Hypertension affecting in second trimester Take 1 tablet (100 mg) by mouth in the morning. 30 tablet 2 09/14/2023 Active Start: 09-09-2022 take 1 tablet by pablo once daily Metoprolol Succinate 100 mg tablet extended release 24 hr Active 100 MG PO Daily February 28, 2024 7:18am take 1 capsule by mo [facility] once daily Metoprolol Succinate 100 MG 1 capsule Orally Once a day Active Multi Vitamin+ (2 sources) Start: 01-26-2023 Multi Vitamin+ Refill(s) 0 Start Date: 01/26/23 Status: Ordered Multiple Vitamin (Multi Vitamin Daily) tablet (2 sources) Start: 01-26-2023 Multiple Vitam in (Multi Vitamin Daily) tablet Refill(s) 0 0 01/26/2023 Active omeprazole 40 mg delayed release oral capsule (20 sources) Proton Pump Inhibitor Start: 07-24-2024 take 1 capsule by mouth twice daily Omeprazole 40 mg capsule,delayed release(DR/EC) Active 40 MG PO Twice daily 60 July 24, 2024 11:10am Start: 01-26-2023 End: 07-24-2024 take 1 capsule by mouth once daily Omeprazole 40 mg capsule,delayed release(DR/EC) Discontinued 40 MG PO Daily March 13, 2023 11:00pm June 11, 2024 11:02am ondansetron 4 mg disintegrating oral tablet (20 sources) Serotonin-3 Receptor Antagonist Start: 03-14-2023 End: 08-17-2024 ondansetron ODT (Zofran-ODT) 4 MG disintegrating tablet 1 (one) time each day at the same time 03/14/2023 08/17/2024 Discontinued (Therapy completed) Start: 01-26-2023 take 1 mg by mouth e very eight hours Zofran 4 mg Tab mg tab(s), Oral, q8hr, Refills(s) 0 Start Date: 01/26/23 Status: Ordered take 1 tablet by pablo every twenty-four hours Ondansetron HCl 4 MG 1 tablet Orally Once a day Active predniSONE 10 mg oral tablet (4 sources) Start: 07-10-2024 End: 08-17-2024 take 5 tablets by mouth once daily, then take 4 tablets by mouth once daily, then take 3 tablets by mouth once daily, then take 2 tablets by mouth once daily, then take 1 tablet by mouth once daily predniSONE (Deltasone) 10 MG tablet Indications: Sinus tarsi syndrome of right ankle Take 5 tabs p.o. daily x3 days Take 4 tabs p.o. daily x3 days Take 3 tabs p.o. daily x3 days Take 2 tabs p.o. daily x3 days Take 1 tab p.o. daily x3 days 45 tablet 07/10/2024 08/17/2024 Discontinued (Therapy completed) MV & Min w/FA-DHA ( Gummies) 0.18-25 MG chewable tablet (2 sources) MV & Mi n w/FA-DHA ( Gummies) 0.18-25 MG chewable tablet as directed Orally 0 Active Semaglutide (1 source) Start: 08-15-2024 Semaglutide (Ozempic) 0.25 mg or 0.5 mg (2 mg/3 mL) pen injector Active 0.25 MG SUBCUT every week August 15, 2024 12:00am for 4 weeks sertraline 100 mg oral tablet (16 sources) Serotonin Reuptake Inhibitor Start: 10-14-2022 sertraline (ZOLOFT) 100 mg tablet Take 100 mg by mouth. 10/14/2022 Active Unisom Sleep Gels (2 sources) Start: 01-26-2023 take 1 mg by mouth every six hours Unisom Sleep Gels mg, Oral, q6hr, Refills(s) 0 Start Date: 01/26/23 Status: Ordered 24 hr venlafaxine 37.5 mg extended release oral capsule (3 sources) Serotonin and Norepinephrine Reuptake Inhibitor Start: 08-15-2024 venlafaxine XR (Effexor XR) 37.5 MG 24 hr capsule 08/15/2024 Active Start: 08-15-2024 take 1 capsule by [facility] once daily Venlafaxine (Effexor Xr) 37.5 mg capsule,extended release 24hr Active 37.5 MG PO Daily August 15, 2024 12:00am vit B-comp w-Fe,Ca,FA<1mg (I CLEMENTE-VITAMINS ORAL) (10 sources) vit B-comp w-Fe, Ca,FA Active Completed/Discontinued Medications Medication Drug Class(es) Dates Sig (Normalized) Sig (Original) aspirin 81 mg delayed release oral tablet (20 sources) Platelet Aggregation Inhibitor, Nonsteroidal Anti-inflammatory Drug Start: 03-05-2024 End: 08-15-2024 Aspirin (Adult Low Dose Aspirin) 81 mg tablet,delayed release (DR/EC) Discontinued 81 MG PO .every other day May 10, 2024 9:51am August 15, 2024 11:02am Start: 02-28-2024 End: 05-10-2024 Aspirin (Adult Low Dose Aspi rin) 81 mg tablet,delayed release (DR/EC) Discontinued 81 MG PO Daily February 27, 2024 11:00pm May 10, 2024 9:52am diphenhydrAMINE hydrochloride 50 mg oral capsule (17 sources) Histamine-1 Receptor Antagonist Start: 01-26-2023 End: 02-28-2024 take 1 capsule by mouth once daily at bedtime Diphenhydramine Hcl 50 mg Capsule Discontinued 50 MG PO Daily at bedtime March 13, 2023 11:00pm February 28, 2024 12:22pm diphenhydramine HCl (UNISOM, DIPHENHYDRAMINE, ORAL) Take 50 mg by mouth. 0 Active ferrous sulfate 134 mg oral tablet (20 sources) Start: 03-14-2023 End: 02-28-2024 take 1 tablet by mouth once daily Ferrous Sulfate 27 mg iron Tablet Discontinued 27 MG PO Daily March 13, 2023 11:00pm February 28, 2024 7:19am ferrous sulfate 325 mg (65 mg iron) EC tablet Take 325 mg by mouth. Active take 1 tablet by mouth three niko es weekly Iron 325 (65 Fe) MG 1 tablet Orally Three times a Week Active tiZANidine 4 mg oral tablet (8 sources) Central alpha-2 Adrenergic Agonist Start: 03-14-2023 End: 02-28-2024 Tizanidine 4 mg tablet Discontinued 4 MG PO As Directed as needed for Pain March 13, 2023 11:00pm February 28, 2024 7:19am Problems Active Problems Problem Classification Problem Date Documented Da te Episodic/Chronic Abdominal hernia (15 sources) Diaphragmatic hernia without obstruction or gangrene; Translations: [Unspecified abdominal hernia without obstruction or gangrene] Onset: Episodic Administrative/social admission (1 source) Patient encounter status; Translations: [Dietary counseling and surveillance] 06-07-2024 Episodic Anxiety disorders (20 sources) Mixed anxiety and depressive disorder; Translations: [Other specified anxiety disorders] Onset: 4 08-18-2023 Chronic Calculus of urinary tract (4 sources) Ureteric stone; Translations: [Calculus of ureter] Onset: 3 Episodic Cardiac and circulatory congenital anomalies (3 sources) Arteriovenous malformation of digestive system vessel; Translations: [Arteriovenous malformation] Chronic Cardiac dysrhythmias (7 sources) Inappropriate sinus tachycardia; Translations: [Inappropriate sinus tachycardia] 05-10-2024 Chronic Cardiac dysrhythmias (15 sources) Tachycardia; Translations: [Tachycardia, unspecified] Onset: 4 02-28-2024 Episodic Deficiency and other anemia (11 sources) Iron deficiency anemia, unspecified; Translations: [Iron deficiency anemia, unspecified] Onset: 3 Episodic Deficiency and other anemia (17 sources) Iron deficiency anemia; Translations: [Iron deficiency anemia, unspecified] Onset: 3 03-15-2023 Episodic Diverticulosis and diverticulitis (3 sources) Diverticular disease of colon; Translations: [Diverticulosis of intestine, part unspecified, without perforation or abscess without bleeding] Chronic Esophageal disorders (16 sources) Gastroesophageal reflux disease; Translations: [Gastro-esophageal reflux disease without esophagitis] Onset: 4 Chronic Essential hypertension (12 sources) Hypertensive disorder; Translations: [Essential (primary) hypertension] 03-05-2024 Chronic Headache; including migraine (1 source) Migraine 03-05-2024 Chronic Hypertension complicating ; childbirth and the puerperium (12 sources) Essential hypertension complicating AND/OR reason for care during ; Translations: [Pre-existing essential hypertension complicating , second trimester] Onset: 4 09-22-2023 Chronic Immunizations and screening for infectious disease (1 source) Encounter for screening for human immunodeficiency virus [HIV]; Translations: [ENCOUNTER FOR SCREENING FOR HIV] Onset: 3 Episodic Malaise and fatigue (3 sources) Fatigue; Translations: [Other fatigue] Onset: 4 05-23-2024 Episodic Mood disorders (16 sources) Depressive disorder; Translations: [Depression] 02-28-2024 Chronic Other complications of (2 sources) Obesity complicating [...] unspecified, unspecified trimester] Onset: 4 Episodic Other connective tissue disease (4 sources) Pain of right lower leg; Translations: [Pain in right lower leg] 06-20-2024 Episodic Other connective tissue disease (2 sources) Pain of right calf; Translations: [Pain in right lower leg] 06-20-2024 Episodic Other connective tissue disease (2 sources) Tendinitis of right posterior tibial tendon; Translations: [Posterior tibial tendinitis, right leg] 08-17-2024 Episodic Other endocrine disorders (2 sources) 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; Translations: [Hypopituitarism] 09-15-2023 Chronic Other gastrointestinal disorders (1 source) Diarrhea, unspecified Episodic Other gastrointestinal disorders (2 sources) History of bariatric surgical procedure; Translations: [Bariatric surgery status] 05-23-2024 Episodic Other gastrointestinal disorders (1 source) Bariatric surgery status; Translations: [S/P bariatric surgery] Onset: 4 Episodic Other injuries and conditions due to external causes (3 sources) Injury of right ankle; Translations: [Unspecified injury of right ankle, initial encounter] 05-24-2024 Episodic Other injuries and conditions due to external causes (3 sources) Unspecified injury of right ankle, initial encounter; Translations: [Knee, leg, ankle, and foot injury] 05-24-2024 Episodic Other lower respiratory disease (2 sources) Snoring; Translations: [Snoring] 05-23-2024 Episodic Other lower respiratory disease (1 source) Snoring; Translations: [Snoring] Onset: 4 Episodic Other non-traumatic joint disorders (3 sources) Ankle pain; Translations: [Pain in right ankle and joints of right foot] 05-24-2024 Episodic Other non-traumatic joint disorders (3 sources) Pain in right ankle and joints of right foot; Translations: [Pain in joint, ankle and foot] 05-24-2024 Episodic Other non-traumatic joint disorders (4 sources) Instability of joint of right ankle; Translations: [Other instability, right ankle] 06-20-2024 Episodic Other non-traumatic joint disorders (4 sources) Sinus tarsi syndrome of right ankle; Translations: [Pain in right ankle and joints of right foot] 07-10-2024 Episodic Other nutritional; endocrine; and metabolic disorders (3 sources) Morbid obesity; Translations: [Morbid (severe) obesity due to excess calories] Onset: 4 Chronic Other nutritional; endocrine; and metabolic disorders (7 sources) Body mass index 40+ - severely obese; Translations: [Body mass index (BMI) 40.0-44.9, adult] Onset: 4 Chronic Other nutritional; endocrine; and metabolic disorders (1 source) Obese class III 03-05-2024 Chronic Other nutritional; endocrine; and metabolic disorders (3 sources) Morbid (severe) obesity due to excess calories; Translations: [Morbid obesity] Onset: 4 08-15-2024 Chronic Other nutritional; endocrine; and metabolic disorders (1 source) Body mass index (BMI) 40.0-44.9, adult; Translations: [Morbid obesity with BMI of 40.0-44.9, adult (HCC)] Onset: 4 Chronic Other skin disorders (6 sources) Disorder of scalp; Translations: [Other skin changes] 02-28-2024 Episodic Other skin disorders (4 sources) Other skin changes; Translations: [Keratoderma, acquired] 02-28-2024 Episodic Previous (2 sources) Maternal care for unspecified type scar from previous delivery; Translations: [Maternal care for unspecified type scar from previous delivery] Onset: 4 Episodic Residual codes; unclassified (1 source) Tobacco user; Translations: [Tobacco use] Onset: 4 Episodic Residual codes; unclassified (1 source) Nicotine-filled electronic cigarette user 03-13-2024 Episodic Residual codes; unclassified (1 source) History of sleeve gastrectomy; Translations: [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]] 06-07-2024 Episodic Sprains and strains (2 sources) Sprain of right ankle; Translations: [Sprain of unspecified ligament of right ankle, sequela] 07-10-2024 Episodic Thyroid disorders (16 sources) Hypothyroidism, unspecified; Translations: [Hypothyroidism] Onset: 3 09-15-2023 Chronic Unclassified (10 sources) OB Reminders Onset: 3 06-30-2023 Unclassified (1 source) Advanced Maternal Age Onset: 4 Unclassified (1 source) Chronic Hypertension Onset: 4 Past or Other Problems Problem Classification Problem Date Documented Date Episodic/Chronic Other and delivery including normal (12 sources) Second trimester ; Translations: [Encounter for supervision of normal , unspecified, second trimester] Onset: 08-18-2023 Resolved: 12-15-2023 09-13-2023 Episodic Other screening for suspected conditions (not mental disorders or infectious disease) (16 sources) Encounter for screening for cardiovascular disorders; Translations: [Encounter for screening for nutritional disorder] Onset: 08-25-2022 09-15-2023 Episodic Residual codes; unclassified (1 source) 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]; Translations: [ACQUIRED ABSENCE OF STOMACH] Onset: 08-25-2022 Episodic Results Test Name Value Interpretation Reference Range Facility XR Ankle - right 3 Viewson 0 08-17-2024 Imaging Result: AP lateral and oblique of the right ankle taken in the office today demonstrating no significant collapse or osteochondral defect ankle mortise well-preserved no bony tumor or fracture seen. [facility] Radiology Study observation (narrative) [facility] POLYSOMNOGRAM (PSG)/HOME SLE EP APNEA TEST (HSAT)on 07-31-2024 POLYSOMNOGRAM (PSG)/HOME SLEEP APNEA TEST (HSAT) [facility] at [address], [address], [place] [address] ; Home Sleep Apnea Test (HSAT) Study Report Name: TIFFANI ALLISON Date of Study: 07/31/2024 [facility]#: [id number] Age: 38 (: 1985) ESS: 02/21 Neck Circ. (cm): 38.0 Height (cm): 177.8 Weight (kg): 138.3 BMI: 43.7 Referring Provider: RENETTA RUANO Mailcode: [id number] Sleep history: The patient is a 38 year old female with a history of daytime sleepiness, fatigue, daytime napping, snoring, multiple awakenings from sleep, waking up with dry mouth/sore throat, difficulty initiating and maintaining sleep, and mouth breathing. The patient is here for assessment of obstructive sleep apnea. The patient endorses being a habitual side sleeper. Pertinent medical history: Anxiety, Class III obesity, Depression, GERD, Status post bariatric surgery Medications: Amlodipine- Atorvastatin, Synthroid, Melatonin, Wellbutrin, Aspirin, Prilosec, Toprol - XL Sleep procedure: PSG unattended Type III, minimum of 4 parameters (84073) Procedure: This study was performed using a Type III ambulatory PSG device and was unattended. The patient was instructed on proper use of the device by a registered process safety engineering technologist. The monitored parameters included heart rate, oxygen saturation, continuous airflow with thermistor and nasal pressure transducer, snoring via nasal pressure transducer, chest and abdominal effort, and body position. JOSE definition: Respiratory event index (JOSE), calculated as respiratory events x 60 / TRT (total recording time in minutes). Note: the apnea hypopnea index has been replaced by the respiratory event index for home sleep apnea test. Since the home sleep apnea test does not measure sleep, the JOSE is most accurate index of respiratory events. The JOSE is a surrogate of the AHI per the AASM Manual for Scoring of Sleep and Associated Events version 3. Apnea definition: The peak signal excursions drop by >90% of pre-event baseline using an oronasal thermal sensor (diagnostic study), PAP device flow (titration study) or an alternative apnea sensor (diagnostic study). The duration of the >90% drop in signal excursion is >=10 seconds. Hypopnea definition: The peak signal excursions drop by >= 30% of pre-event baseline using nasal pressure (diagnostic study), PAP device flow (titration study) or an alternative hypopnea sensor (diagnostic study). The duration of the >= 30% drop in signal excursion is >=10 seconds. There is a greater than or equal to 4% oxygen desaturation from pre-event baseline. RESPIRATORY DATA: The study started at 04:19:29 and ended at 09:47:29 and the total recording time was 328 minutes. By convention, sleep is assumed for the whole recording. Snoring was noted. There was a total of 17 respiratory events. Of these events, the total number of apneas was 0 (0 obstructive, 0 mixed, and 0 central (0.0%)) and 17 hypopneas. The central apnea index (CLYDE) was 0.0. The respiratory event index (JOSE) was 3.1 events per hour of study time. The mean oxygen saturation during the study was 95.0%, with a minimum oxygen saturation of 89.0%. The patient spent 1.5 minutes at oxygen saturation measured less than 90% (0.5% of recording time) and 1.4 minutes at oxygen saturation measured at or less than 88% (0.4% of recording time). Time JOSE/AHI Supine 206.0 min 15.1 Off-Supine 251.0 min 4.3 Total 457.0 min 9.2 ECG DATA: The average heart rate was 69 bpm with a range of 58 bpm to 95 bpm. ICSD DIAGNOSIS: Primary Snoring [R06.83] Sleep Disorder, Unspecified [G47.9] IMPRESSION/RECOMMENDAT IONS: 1. This study confirms a diagnosis of at least mild obstructive sleep apnea, exacerbated to moderate when supine. 2. The results of this study may represent an underestimation of the degree of obstructive sleep apnea, especially hypopneas, because of the known limitations of HSAT, such as inability to record arousals because EEG is not recorded. 3. Treatment of mild sleep apnea can include weight loss, positional therapy, treatment of allergies, oral appliance therapy or ENT evaluation of any airway abnormalities. PAP therapy may be considered in patients with documented symptoms of daytime sleepiness, impaired cognition, mood disorder, insomnia, or documented hypertension, ischemic heart disease, or history of stroke. INTERPRETING PHYSICIAN: Erik Cutler MD [facility] I attest that I have performed epoch by epoch review of the entire raw data and find this study to be technically adequate. Report Digitally Signed By: ERIK CUTLER MD (08/09/2024 12:59:35 PM) Normal [facility] MR ANKLE RIGHT WO IV CONTRAS Ton 06-22-2024 MR ANKLE RIGHT WO IV CONTRAST EXAM/TECHNIQUE: MR ANKLE RIGHT WO IV CONTRAST HISTORY: History of fall in March. Lateral and medial pain with instability. COMPARISON: Radiographs 06/11/2024. RESULT: Cartilage: Tibiotalar joint cartilage and subtalar joint cartilage appears to be preserved. Midfoot articular cartilage appears to be preserved. Ligaments: Distal tibiofibular ligaments appear grossly intact. Thickening and increased signal involving the anterior talofibular ligament, with some well-corticated fragments near the insertion, likely sequela of remote injury. Calcaneofibular ligament appears grossly intact. Posterior talofibular ligament appears intact. Deltoid ligament and spring ligament appear intact. Tendons: Achilles tendon appears intact. Extensor tendons appear intact. Medial flexor tendons appear intact with tiny accessory navicular. Peroneal tendons appear intact. Joint Fluid: Trace tibiotalar joint effusion. Trace fluid or bursitis along the dorsal aspect of the talonavicular joint. Bone Marrow: No evidence for fracture, osteochondral lesion, osteomyelitis or other marrow replacing lesion. Small amount of bone marrow edema involving the distal fibula, likely reactive versus bone contusion. Plantar Aponeurosis: Plantar aponeurosis in within normal limits. Sinus Tarsi: Some loss of the fat signal within the sinus tarsi, associated with sinus tarsi syndrome. Muscle: Muscle bulk and signal intensity is within normal limits. Tarsal Tunnel: Tarsal tunnel is within normal limits. Other: Mild subcutaneous edema. IMPRESSION: Remote appearing injury involving the anterior talofibular ligament. Small amount of reactive edema or bone contusion of the distal fibula. 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 ELECTRONICALLY SIGNED BY: Delbert Thakkar MD Normal Not Available VASC US LOWER EXTREMITY VENO US DUPLEX RIGHTon 06-21-2024 VASC US LOWER EXTREMITY VENOUS DUPLEX RIGHT Exam: [facility] US LOWER EXTREMITY VENOUS DUPLEX RIGHT Clinical History: Right calf pain and swelling Reference Exam: No comparison FINDINGS: Imaging findings: Real-time ultrasonographic evaluation with color-flow Doppler sequencing and Doppler waveform analysis is provided for the deep venous system. The visualized right common femoral vein, superficial femoral vein, popliteal vein and veins of the trifurcation demonstrate appropriate compressibility and augmentation of flow. The greater saphenous vein is patent. No abnormality of the popliteal fossa is identified. Impression: 1. No ultrasonographic evidence of deep venous thrombosis in the right lower extremity. Dictated on: 06/21/2024 4:05 PM This report has been electronically signed and approved by the interpreting Radiologist. Normal Not Available NICOTINE AND METAB, URon URIN ANABASINE QUANT <5 Normal [facility] Comment on above: Order Comment: Speci men Type: URINE SPECIMENOrdering Facility: [facility] Address: [address] [place] [address] Performed By: #### U NICOT ####[facility] [id number] [place] [address] URIN COTININE QUANT <15 Normal [facility] Comment on above: Order Comment: Speci men Type: URINE SPECIMENOrdering Facility: [facility] Address: [address] [place] [address] Performed By: #### U NICOT ####[facility] [id number] [place] [address] URIN NICOTINE QUANT <15 Normal [facility] Comment on above: Order Comment: Speci men Type: URINE SPECIMENOrdering Facility: [facility] Address: [address] [place] [address] Result Comment: INTE RPRETIVE INFORMATION: Nicotine and Metabolites, Urine, Quantitative Methodology: Quantitative Liquid Chromatography-Tandem Mass Spectrometry Positive cutoff: Nicotine 15 ng/mL Cotinine 15 ng/mL 5-PT-Upcaixjy 50 ng/mL Anabasine 5 ng/mL For medical purposes only; not valid for forensic use. This test is designed to evaluate recent use of nicotine-containing products. Passive and active exposure cannot be discriminated definitively, although a cutoff of 100 ng/mL cotinine is frequently used for surgery qualification purposes. For smoking cessation programs or compliance testing, the absence of expected drug(s) and/or drug metabolite(s) may indicate non-compliance, inappropriate timing of specimen collection relative to drug administration, poor drug absorption, diluted/adulterated urine, or limitations of testing. The concentration value must be greater than or equal to the cutoff to be reported as positive. Anabasine is included as a biomarker of tobacco use, versus nicotine replacement. Interpretive questions should be directed to the laboratory. This test was developed and its performance characteristics determined by [facility]. It has not been cleared or approved by the US Food and Drug Administration. This test was performed in a CLIA certified laboratory and is intended for clinical purposes. Performed By: [facility] [address] [place] [address] Furniture Finisher Apprentice: Kulwinder Wilson MD, PhD CLIA Number: [id number] Performed By: #### U NICOT ####[facility]CLIA [id number] [place] [address] URINE 3 OH COTININE <50 Normal [facility] Comment on above: Order Comment: Speci men Type: URINE SPECIMENOrdering Facility: [facility] Address: [address] [place] [address] Performed By: #### U NICOT ####[facility] [id number] [place] [address] XR CHEST 2V FRONTAL/LATon XR CHEST 2V FRONTAL/LAT * * *Final Report* * * DATE OF EXAM: Jun 15 2024 12:23PM [id number] - XR CHEST 2V FRONTAL/LAT / PROCEDURE REASON: multiple diagnoses * * * * Physician Interpretation * * * * EXAMINATION: CHEST RADIOGRAPH (2 VIEW FRONTAL and LATERAL) CLINICAL HISTORY: Morbid obesity due to excess calories (HCC) S/P bariatric surgery MQ: XC2_6 EXAM DATE/TIME: 06/15/2024 12:23 PM COMPARISON: No relevant prior studies available. RESULT: Lines, tubes, and devices: None. Lungs and pleura: No consolidation. No lung mass. No pleural effusion. No pneumothorax. Cardiomediastinal silhouette: Normal cardiomediastinal silhouette. Bones and soft tissues: Unremarkable. IMPRESSION: No acute radiographic abnormality. Profile Shaper Operator: PSCB Transcribe Date/Time: Jun 15 2024 12:32P Dictated by : SUZIE RICARDO MD This examination was interpreted and the report reviewed and electronically signed by: SUZIE RICARDO MD on Jun 15 2024 12:32PM EST [id number] Normal [facility] XR Chest PA and Lateralon IMPRESSION: No acute radiographic abnormality. Profile Shaper Operator: PSCB Transcribe Date/Time: Jun 15 2024 12:32P Dictated by : SUZIE RICARDO MD This examination was interpreted and the report reviewed and electronically signed by: SUZIE RICARDO MD on Jun 15 2024 12:32PM EST DIVISION OF RADIOLOGY * * *Final Report* * * DATE OF EXAM: Jun 15 2024 12:23PM [id number] - XR CHEST 2V FRONTAL/LAT / PROCEDURE REASON: multiple diagnoses * * * * Physician Interpretation * * * * EXAMINATION: CHEST RADIOGRAPH (2 VIEW FRONTAL & LATERAL) CLINICAL HISTORY: Morbid obesity due to excess calories (HCC) S/P bariatric surgery MQ: XC2_6 EXAM DATE/TIME: 06/15/2024 12:23 PM COMPARISON: No relevant prior studies available. RESULT: Lines, tubes, and devices: None. Lungs and pleura: No consolidation. No lung mass. No pleural effusion. No pneumothorax. Cardiomediastinal silhouette: Normal cardiomediastinal silhouette. Bones and soft tissues: Unremarkable. DIVISION OF RADIOLOGY Provider, [facility] - 06/15/2024 * * *Final Report* * * DATE OF EXAM: Jun 15 2024 12:23PM [id number] - XR CHEST 2V FRONTAL/LAT / PROCEDURE REASON: multiple diagnoses * * * * Physician Interpretation * * * * EXAMINATION: CHEST RADIOGRAPH (2 VIEW FRONTAL & LATERAL) CLINICAL HISTORY: Morbid obesity due to excess calories (HCC) S/P bariatric surgery MQ: XC2_6 EXAM DATE/TIME: 06/15/2024 12:23 PM COMPARISON: No relevant prior studies available. RESULT: Lines, tubes, and devices: None. Lungs and pleura: No consolidation. No lung mass. No pleural effusion. No pneumothorax. Cardiomediastinal silhouette: Normal cardiomediastinal silhouette. Bones and soft tissues: Unremarkable. IMPRESSION IMPRESSION: No acute radiographic abnormality. Profile Shaper Operator: PSCB Transcribe Date/Time: Jun 15 2024 12:32P Dictated by : SUZIE RICARDO MD This examination was interpreted and the report reviewed and electronically signed by: SUZIE RICARDO MD on Jun 15 2024 12:32PM EST [facility] Radiology Study observation (narrative) [facility] XR Chest PA and LateralOrder ed By: Ccf Provider on 06-15-2024 [facility] CNPNon 05-17-2024 CNPN Telephone (GENBMI) TIFFANI ALLISON ([id number]) 1985 F Date Time Provider Department 05/17/24 KRISTI WATTS [facility] During your visit today, we recorded the following information about you: Kristi Watts RN 05/17/2024 10:18 AM Signed [facility] COORDINATION TELEPHONE ENCOUNTER LVM with call back number to tell pt next steps about enrolling in our program. Allergies As of Date: 05/17/2024 Noted Allergy Reaction PENICILLINS 10/26/2022 10 - Anaphylaxis 3 - Cough 4 - Hives 9 - Itching 2 - Rash 12 - Shortness of Breath 7 - Swelling 16 - Unknown Comments: Other Reaction(s): throat swelling and hives TOPIRAMATE 01/04/2023 5 - Intolerance Comments: Other Reaction(s): seizures Date Reviewed: 04/24/2024 Reviewed by: Kathy Leal MA - Fully Assessed Reason for Visit: Patient Update [1234] pt update [Other] Prescriptions as of 05/17/2024 - acetaminophen 325 mg cap Take 650 mg by mouth every 6 hours as needed. - amLODIPine (NORVASC) 10 mg tablet Take 10 mg by mouth. - amLODIPine-Atorvastati n 10-10 mg per tablet - aspirin, enteric coated (ASPIRIN, ENTERIC COATED) 81 mg EC tablet Take 81 mg by mouth. - buPROPion XL (WELLBUTRIN XL) 150 mg 24 hr tablet Take 150 mg by mouth. - busPIRone (BUSPAR) 10 mg tablet Take 10 mg by mouth. - Chlorhexidine Gluconate (PERIDEX) 0.12 % solution TAKE 15 ML IN MOUTH AND SWISH FOR 30 SECONDS THEN SPIT OUT TWICE DAILY FOR 20 DAYS - clindamycin (CLEOCIN) 300 mg capsule TAKE 1 CAPSULE BY MOUTH FOUR TIMES DAILY (IN THE MORNING, at noon, IN THE EVENING, and BEFORE bedtime) FOR 10 DAYS - diclofenac, EC, (VOLTAREN) 75 mg EC tablet Take 1 tablet by mouth every 12 hours. - escitalopram oxalate (LEXAPRO) 10 mg tablet Take 1 tablet by mouth once daily. - ferrous sulfate 325 mg (65 mg iron) EC tablet Take 325 mg by mouth. - fluocinonide (LIDEX) 0.05 % external solution APPLY TO THE AFFECTED AREA(S) topically DAILY - hydrOXYzine pamoate (VISTARIL) 25 mg capsule Take 1 capsule by mouth two times a day as needed. - ibuprofen (MOTRIN) 800 mg tablet - levothyroxine (SYNTHROID) 137 mcg tablet TAKE 1 TABLET BY MOUTH IN THE MORNING BEFORE MEALS - melatonin 1 mg chew Take by mouth. - metoprolol succinate ER (TOPROL XL) 100 mg Take 100 mg by mouth. - omeprazole (PRILOSEC) 40 mg capsule Take 40 mg by mouth. - ondansetron orally disintegrating (ZOFRAN ODT) 4 mg disintegrating tablet 1 (one) time each day at the same time - oxyCODONE-acetaminophe n (PERCOCET) 5-325 mg tablet Take 1 tablet by mouth q 6 HR. - sertraline (ZOLOFT) 100 mg tablet Take 100 mg by mouth. - vit B-comp w-Fe,Ca,FA<1mg (IRON-VITAMINS ORAL) Problem List As Of Date: 05/17/2024 (None) Encounter Status:Closed by KRISTI WATTS on 05/17/24 Normal [facility] FPG ECG *CARDIOLOGY ONLY*on 05-10-2024 FPG ECG *CARDIOLOGY ONLY* [facility] [place] [address] [place] [address] Electrocardiograph Report Signed Patient: Tiffani Allison MR#: [id number] : 1985 Acct:[id number] Age/Sex: 38 / F ADM Date: 05/10/24 Loc: EKGCARDIO Room: Type: [facility] Attending Dr: Felipe Quiñones MD Ordering Provider: Felipe Quiñones MD Date of Service: 05/10/2405/24/1045 ECG/FPG ECG *CARDIOLOGY ONLY*: R00.0 - Tachycardia, unspecified Copies to: Test Reason : Blood Pressure : */* mmHG Vent. Rate : 69 BPM Atrial Rate : 69 BPM P-R Int : 154 ms QRS Dur : 88 ms QT Int : 436 ms P-R-T Axes : 48 54 39 degrees QTcB Int : 467 ms Normal sinus rhythm Low voltage QRS Borderline ECG No previous ECGs available Confirmed by Felipe Quiñones ([id number]) on 05/12/2024 10:56:03 AM Referred By: Electronically Signed By: Felipe Quiñones Transcribed By: MUS Signed By Felipe Quiñones MD 05/12/24 1056 Normal [facility] CNOVon 04-24-2024 CNOV Office Visit (GENBMI ) TIFFANI ALLISON ([id number]) 1985 F Date Time Provider Department 04/24/24 9:00 AM RAINE GRISSOM During your visit today, we recorded the following information about you: Pulse Blood pressure Weight Height 80/minute 144/82 138.5 kg 1.778 m Last Period 04/07/24 Raine Grissom MD 04/30/2024 10:16 AM Signed BARIATRIC HANDP/PRE-OPERATIVE CONSULT SERVICE DATE: 04/24/2024 SERVICE TIME: 9:36 AM BMI Surgical Pathway Visit type: Bariatric Surgeon Visit PRIMARY CARE PHYSICIAN: No primary care provider on file. Subjective Consultation requested by Dr. Jeff for an opinion regarding preoperative evaluation for upcoming surgery. My final recommendations will be communicated back to the requesting physician by way of the shared medical record. CHIEF COMPLAINT: Discussion of hiatal hernia, surgical weight loss, morbid obesity HPI: Tiffani Allison is a 38 year old female who presents on April 24, 2024 for surgical evaluation and treatment of GERD and hiatal hernia in the setting of prior sleeve gastrectomy, also with a symptomatic incisional hernia. Patient has an incisional hernia from a pfannenstiel incision. She has had 3 C-sections (2009, 2021, 2023) and noticed this hernia shortly after her last delivery in November 2023 (approximately 3 weeks after). She reports this hernia is very bothersome; interferes with her ability to bend down, lift objects, etc. She saw Dr. Jeff last week to discuss surgical repair options. Has had GERD for over 10 years, was controlled on omeprazole but more recently, does not have relief. She feels her symptoms have worsened noticeably in the past two months, especially since her incisional hernia has become more bothersome. She endorses substernal pain at baseline, which she attributes to the GERD/hiatal hernia. She endorses early satiety (even more so than after her sleeve gastrectomy) and reports regurgitation if she lays down too quickly after a meal. Her symptoms are worse at night. In the past week she has vomited twice without laying down. She also reports sometimes coughing up stomach acid . Had sleeve gastrectomy in 2017. Patient reports maximum weight of 364lb prior to surgery with a lowest weight of 184lbs achieved in 2019. Patient says she began to re-gain weight in with her second and again in with her third . 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 Current weight 305lbs. She is not currently taking a bariatric multivitamin; she was taking a vitamin in her most recent but did not re-start a bariatric multivitamin after delivery. She is open to discussing additional bariatric surgery options, but says her top priority is addressing her incisional hernia. She would like her hiatal hernia to be addressed in the same operation with her incisional hernia, if possible. She notes baseline loose stools, with 2-5 watery BMs/day. She reports this has been her bowel habit baseline since before her 2017 bariatric surgery. Previous abdominal operations include: Lap appy 2017 Low transverse 2009, 2021, 2023 Lap rocío 2006 Sleeve gastrectomy 2016 PMH: GERD HTN Hypothyroidism Iron deficiency anemia - requires iron transfusions Depression PSH: Lap appy 2017 Low transverse 2009, 2021, 2023 Tubal ligation 2023 Lap rocío 2006 Sleeve gastrectomy 2016 Heartburn/reflux: Daily symptoms only partially controlled with omeprazole 40mg QHS. NSAID use: Ibuprofen PRN Smoking: Current nicotine vape use; reports she is planning to quit in anticipation of surgery (says she is on her last cartridge and will not buy more). Former cigarette use, 1 pack per week, age [age] on and off . EtOH: Rare EXERCISE ACTIVITY: Patient reports an interest in exercise but says incisional hernia prevents her from many activities (cannot bend, cannot lift objects). FUNCTIONAL STATUS: Climb a flight of stairs or walk up a hill (5.50 METs) No past medical history on file. No past surgical history on file. No family history on file. Social History Tobacco Use Smoking status: Every Day Types: Pipe Smokeless tobacco: Never Current Outpatient Medications Medication Sig acetaminophen 325 mg cap Take 650 mg by mouth every 6 hours as needed. amLODIPine (NORVASC) 10 mg tablet Take 10 mg by mouth. amLODIPine-Atorvastati n 10-10 mg per tablet aspirin, enteric coated (ASPIRIN, ENTERIC COATED) 81 mg EC tablet Take 81 mg by mouth. buPROPion XL (WELLBUTRIN XL) 150 mg 24 hr tablet Take 150 mg by mouth. busPIRone (BUSPAR) 10 mg tablet Take 10 mg by mouth. Chlorhexidine Gluconate (PERIDEX) 0.12 % solution TAKE 15 ML IN MOUTH AND SWISH FOR 30 SECONDS THEN SPIT OUT TWICE DAILY FOR 20 DAYS clindamycin (THU (more content not included)... Normal [facility] Cedric 04-18-2024 [facility] TIFFANI ALLISON ([id number]) 1985 F Date Time Provider Department 04/18/24 KRISTI WATTS During your visit today, we recorded the following information about you: Kristi Watts, SHABANA 04/18/2024 10:18 AM Signed [facility] COORDINATION TELEPHONE ENCOUNTER LVM with call back number for pt to make an appt with Dr. Grissom. Allergies As of Date: 04/18/2024 Noted Allergy Reaction PENICILLINS 10/26/2022 10 - Anaphylaxis 3 - Cough 4 - Hives 9 - Itching 2 - Rash 12 - Shortness of Breath 7 - Swelling 16 - Unknown Comments: Other Reaction(s): throat swelling and hives TOPIRAMATE 01/04/2023 5 - Intolerance Comments: Other Reaction(s): seizures Date Reviewed: 04/16/2024 Reviewed by: Rocio Jeff MD - Fully Assessed Reason for Visit: Patient Update [1234] Prescriptions as of 04/18/2024 - acetaminophen 325 mg cap Take 650 mg by mouth every 6 hours as needed. - amLODIPine (NORVASC) 10 mg tablet Take 10 mg by mouth. - amLODIPine-Atorvastati n 10-10 mg per tablet - aspirin, enteric coated (ASPIRIN, ENTERIC COATED) 81 mg EC tablet Take 81 mg by mouth. - buPROPion XL (WELLBUTRIN XL) 150 mg 24 hr tablet Take 150 mg by mouth. - busPIRone (BUSPAR) 10 mg tablet Take 10 mg by mouth. - Chlorhexidine Gluconate (PERIDEX) 0.12 % solution TAKE 15 ML IN MOUTH AND SWISH FOR 30 SECONDS THEN SPIT OUT TWICE DAILY FOR 20 DAYS - clindamycin (CLEOCIN) 300 mg capsule TAKE 1 CAPSULE BY MOUTH FOUR TIMES DAILY (IN THE MORNING, at noon, IN THE EVENING, and BEFORE bedtime) FOR 10 DAYS - diclofenac, EC, (VOLTAREN) 75 mg EC tablet Take 1 tablet by mouth every 12 hours. - escitalopram oxalate (LEXAPRO) 10 mg tablet Take 1 tablet by mouth once daily. - ferrous sulfate 325 mg (65 mg iron) EC tablet Take 325 mg by mouth. - fluocinonide (LIDEX) 0.05 % external solution APPLY TO THE AFFECTED AREA(S) topically DAILY - hydrOXYzine pamoate (VISTARIL) 25 mg capsule Take 1 capsule by mouth two times a day as needed. - ibuprofen (MOTRIN) 800 mg tablet - levothyroxine (SYNTHROID) 137 mcg tablet TAKE 1 TABLET BY MOUTH IN THE MORNING BEFORE MEALS - melatonin 1 mg chew Take by mouth. - metoprolol succinate ER (TOPROL XL) 100 mg Take 100 mg by mouth. - omeprazole (PRILOSEC) 40 mg capsule Take 40 mg by mouth. - ondansetron orally disintegrating (ZOFRAN ODT) 4 mg disintegrating tablet 1 (one) time each day at the same time - oxyCODONE-acetaminophe n (PERCOCET) 5-325 mg tablet Take 1 tablet by mouth q 6 HR. - sertraline (ZOLOFT) 100 mg tablet Take 100 mg by mouth. - vit B-comp w-Fe,Ca,FA<1mg (IRON-VITAMINS ORAL) Problem List As Of Date: 04/18/2024 (None) Encounter Status:Closed by KRISTI WATTS on 04/18/24 [facility] CNOVyeni 04-16-2024 CNOV Office Visit (JENNIFER ) TIFFANI ALLISON ([id number]) 1985 F Date Time Provider Department 04/16/24 2:30 PM ROCIO JEFF During your visit today, we recorded the following information about you: Temperature Pulse Blood pressure Weight 97.7 degrees 72/minute 149/79 136.1 kg Height 1.778 m Annika Orr MA 04/16/2024 2:39 PM Signed What is the reason for your visit today? Consult Who is your referring physician? Dr. Jeff Are you having poor oral intake? NO Have you had unintentional weight loss of 15 lbs/7 Kg in the last 3-6 months? NO Bowels: regular Wound: clean AND dry Temperature: No Drains: No Ran Padron 04/23/2024 8:59 AM Signed [facility] Abdominal [facility] Health - HISTORY AND PHYSICAL Chief Complaint: Hypogastric ventral hernia and hiatal hernia HPI: Tiffani Allison is a 38 year old female who presents with 2 month history of symptomatic hypogastric ventral hernia. Pt first noticed a bulge in the shower and is has been persistently tender since, grown 3x in size, hurts worse when coughing/sneezing/stra ining/bending over/picking up her children. She also reports intermittent nausea without vomiting. She denies constipation or hematochezia. She most recently had a pfannenstiel incision for in September of this year. Pt also has 10+ year history of heartburn and has been on omeprazole since then. When taking it as prescribed, pt experiences adequate symptomatic management. Pt described the pain as substernal burning associated with typical trigger foods, if she doesn't lay flat for 1 hour after meals then she experiences significant distress. She denies dysphagia and regurgitation. Pt reports a 2022 EGD that showed esophagitis, pt is very interested in operative repair. 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 Relevant previous abdominal operations include: Lap appy 2016 Low transverse 2009, 2021, 2023 Lap rocío 2006 Sleeve gastrectomy 2016 No past medical history on file. No past surgical history on file. Social History Tobacco Use Smoking status: Every Day Types: Pipe Smokeless tobacco: Never Additional social history not relevant to the patient's HPI No family history on file. Additional family history not relevant to the patient's HPI ALLERGIES Allergen Reactions Penicillins Anaphylaxis, Cough, Hives, Itching, Rash, Shortness of Breath, Swelling, Unknown Other Reaction(s): throat swelling and hives Topiramate Intolerance Other Reaction(s): seizures Current Outpatient Medications Medication Sig Dispense Refill amLODIPine (NORVASC) 10 mg tablet Take 10 mg by mouth. aspirin, enteric coated (ASPIRIN, ENTERIC COATED) 81 mg EC tablet Take 81 mg by mouth. buPROPion XL (WELLBUTRIN XL) 150 mg 24 hr tablet Take 150 mg by mouth. busPIRone (BUSPAR) 10 mg tablet Take 10 mg by mouth. Chlorhexidine Gluconate (PERIDEX) 0.12 % solution TAKE 15 ML IN MOUTH AND SWISH FOR 30 SECONDS THEN SPIT OUT TWICE DAILY FOR 20 DAYS clindamycin (CLEOCIN) 300 mg capsule TAKE 1 CAPSULE BY MOUTH FOUR TIMES DAILY (IN THE MORNING, at noon, IN THE EVENING, and BEFORE bedtime) FOR 10 DAYS diclofenac, EC, (VOLTAREN) 75 mg EC tablet Take 1 tablet by mouth every 12 hours. escitalopram oxalate (LEXAPRO) 10 mg tablet Take 1 tablet by mouth once daily. hydrOXYzine pamoate (VISTARIL) 25 mg capsule Take 1 capsule by mouth two times a day as needed. ibuprofen (MOTRIN) 800 mg tablet levothyroxine (SYNTHROID) 137 mcg tablet TAKE 1 TABLET BY MOUTH IN THE MORNING BEFORE MEALS metoprolol succinate ER (TOPROL XL) 100 mg Take 100 mg by mouth. omeprazole (PRILOSEC) 40 mg capsule Take 40 mg by mouth. ondansetron orally disintegrating (ZOFRAN ODT) 4 mg disintegrating tablet 1 (one) time each day at the same time oxyCODONE-acetaminophe n (PERCOCET) 5-325 mg tablet Take 1 tablet by mouth q 6 HR. sertraline (ZOLOFT) 100 mg tablet Take 100 mg by mouth. acetaminophen 325 mg cap Take 650 mg by mouth every 6 hours as needed. amLODIPine-Atorvastati n 10-10 mg per tablet ferrous sulfate 325 mg (65 mg iron) EC tablet Take 325 mg by mouth. fluocinonide (LIDEX) 0.05 % external solution APPLY TO THE AFFECTED AREA(S) topically DAILY melatonin 1 mg chew Take by mouth. vit B-comp w-Fe,Ca,FA<1mg (IRON-VITAMINS ORAL) No current facility-administered medications for this visit. REVIEW OF SYSTEMS GENERAL: No fevers. RESPIRATORY: No cough or shortness of breath CARDIOVASCULAR: No chest pain GI: No nausea, vomiting, or diarrhea The remainder of the review of systems is negative. BP 149/79 Pulse 72 Temp 36.5 ?C (97.7 ?F) (Temporal) Ht 177.8 cm (5' 10 ) Wt 136.1 kg (300 lb) BMI 43.05 kg/m? Physical findings of this patient (more content not included)... Normal [facility] CNPNon 04-11-2024 CNPN Telephone (GENSMN) TIFFANI ALLISON ([id number]) 1985 F Date Time Provider Department 04/11/24 HILDA KITCHEN During your visit today, we recorded the following information about you: Hilda Kitchen LPN 04/11/2024 4:18 PM Signed Contacted patient, verified name and . Advised of the following Abdominal Surgeries performed and patient had Imaging performed from [facility] 03/29/24 and to bring Imaging with her to appointment. 2018--Gastric Bypass ( [facility], [place], [place]) 2017--Appendectomy ([place], [place]; [facility]) Advised patient will contact to obtain Operative Reports and patient to be sent AVST Message to contact if any needs or concerns arise, patient acknowledged and verbalized understanding. SANDRITA Luciano Claudine, LPN 04/13/2024 11:39 AM Signed Contacted [facility] for patient's Lap Vertical Gastric Sleeve performed in 2018, no answer to HIM Dept and message left to contact this radio script writer back. Contacted [facility], [facility] Department. Spoke with Ashley and advised to send fax request to , fax receipt confirmation @ 11:38 am, will monitor for reports for Lap Appy- 2016 Hilda Kitchen LPN Allergies As of Date: 04/11/2024 (Not on File) Date Reviewed: Never Reviewed Problem List As Of Date: 04/11/2024 (None) Encounter Status:Closed by HILDA KITCHEN on 04/11/24 Normal [facility] Ambulatory Visit Summaryon 0 03-13-2024 Ambulatory Visit Summary Ambulatory Visit Summary TIFFANI ALLISON :1985 Visit Date:03/13/2024 Ambulatory Visit Instructions Your Diagnosis Vapes nicotine containing substance Your Care Team Attending Physician - GUILLERMO RUSSELL, King Granados Primary Care Physician - ELISABETH BECKMAN CNP Referring Physician - SYED TAYLOR, ELISABETH Sears This Is Your Medications List Contact prescribing physician if questions or concerns amlodipine (amLODIPine 10 mg Tab) aspirin (aspirin 81 mg Oral EC Tab) buPROPion (buPROPion 150 mg ER Tab) escitalopram (escitalopram 10 mg Tab) ibuprofen (ibuprofen 800 mg Tab) levothyroxine (levothyroxine 137 mcg (0.137 mg) oral capsule) levothyroxine (levothyroxine 25 mcg (0.025 mg) Tab) metoprolol (metoprolol 100 mg ER Tab) omeprazole (omeprazole 40 mg Cap-DR) Procedures Performed Appendectomy (08/01/2016), Gastric sleeve (08/01/2016), Cholecystectomy (08/01/2005), section, section, section, Meniscal repair. Discharge Vitals Heart Rate (Peripheral) 80 Respiratory Rate 16 Blood Pressure 124/85 Height 180.34 cm Height 71 in Weight 137.4 kg Weight 302.28 lb BMI 42.25 Medications What How Much When Instructions Unchanged amlodipine (amLODIPine 10 mg Tab) 1 Tablets By Mouth Every day Contact prescribing physician if questions or concerns Unchanged aspirin (aspirin 81 mg Oral EC Tab) 1 Tablets By Mouth Every day Contact prescribing physician if questions or concerns Unchanged buPROPion (buPROPion 150 mg ER Tab) 1 Tablets By Mouth Every day Contact prescribing physician if questions or concerns Unchanged escitalopram (escitalopram 10 mg Tab) 1 Tablets By Mouth Every day Contact prescribing physician if questions or concerns Unchanged ibuprofen (ibuprofen 800 mg Tab) 1 Tablets By Mouth 3 times a day as needed for as needed for pain Contact prescribing physician if questions or concerns Unchanged levothyroxine (levothyroxine 137 mcg (0.137 mg) oral capsule) 1 Capsules By Mouth Every day Contact prescribing physician if questions or concerns Unchanged levothyroxine (levothyroxine 25 mcg (0.025 mg) Tab) 1 Tablets By Mouth Every day Contact prescribing physician if questions or concerns Unchanged metoprolol (metoprolol 100 mg ER Tab) 1 Tablets By Mouth Every day Contact prescribing physician if questions or concerns Unchanged omeprazole (omeprazole 40 mg Cap-DR) 1 Capsules By Mouth Every day Contact prescribing physician if questions or concerns Allergies penicillins (Anaphylaxis) Problems Ongoing - Any problem that you are currently receiving treatment for. Arteriovenous malformation BMI 40.0-44.9, adult Class 3 obesity Diverticular disease of colon GERD (gastroesophageal reflux disease) Hiatal hernia History of nephrolithiasis Hypertensive disorder Hypothyroidism Iron deficiency anemia Migraine Mixed anxiety and depressive disorder Tachycardia Vapes nicotine containing substance Patient Survey You may receive a survey via text or e-mail asking about your office visit. Please share your experience with us by completing your survey. We appreciate your feedback and thank you for choosing us for your care. [facility] 12-12-2023 L Specimen: [id number] Received: 12/13/23 Status: KENISHA Jerry Num: [id number] Spec Type: Surgical Subm Dr: Adrian Kerr Tissues: A Placenta - 3rd Trimester (Greater than 28 weeks) (PLACENTA) B Fallopian Tube - Sterilization (FT BILATERAL) Procedures: HE/5, Gross/Micro L5, Gross/Micro L2 Age/ Patient Sex Location Account Attending Physician Tiffani Allison 38/F [facility] [id number] Adrian Kerr SPEC NUM: [id number] RECD: 12/13/23 STATUS: KENISHA JERRY NUM: [id number] RODERICK: 12/12/[address]: Adrian Kerr ENTERED: 12/13/[address] [facility] DR: Tariq,Lab SPEC TYPE: Surgical DEPT: [place] ORDERED: HE/5, Gross/Micro L5, Gross/Micro L2 ORDERED: HE/5, Gross/Micro L5, Gross/Micro L2 Pathological Diagnosis A. Placenta, With: Umbilical Cord: Three Vessel Cord, Unremarkable. Membranes: Unremarkable. Placenta: Mature Chorionic Villi, Consistent With Third Trimester Placenta. No Parenchymal Lesions Are Identified. B. Bilateral fallopian tubes, resection: No significant pathologic abnormality. Gross Description Received in formalin labeled with the patient's name, date of and placenta is a farley placental disc with attached membranes, and attached umbilical cord. The 66.4 x 0.7 cm, three-vessel, burnham umbilical cord inserts eccentrically into the chorionic plate, 4.9 cm from the placental disc margin. The cord has normal spiraling no knots or lesions. The marginally inserted, complete membranes are burnham-pink, slippery and translucent, with the point of rupture 10.2 cm from the disc margin. Intramembranous blood vessels are absent. The chorionic plate is turner-blue with patent vessels that span out magistrally over the surface. The maternal surface has intact, lobulated cotyledons. No loose or adherent blood clot is attached to the placental disc or within the specimen container. The parenchyma is pink-red and spongiform. The 22.4 x 14.6 x 2.8 cm placental disc, devoid of membranes and cord, has a trimmed weight ---- Specimen: [id number] Received: 12/13/23 Status: KENISHA Jerry Num: [id number] Spec Type: Surgical Subm Dr: Adrian Kerr Tissues: A Placenta - 3rd Trimester (Greater than 28 weeks) (PLACENTA) B Fallopian Tube - Sterilization (FT BILATERAL) Procedures: HE/Sheldon, Gross/Micro L5, Gross/Micro L2 ---- Patient: Tiffani Allison [id number] (Continued) ---- Specimen: [id number] Received: 12/13/23 (Continued) Gross Description (Continued) Signed (signature on file) Antonio Ahumada MD 12/14/23 1545 ---- Specimen: [id number] Received: 12/13/23 Status: KENISHA Jerry Num: [id number] Spec Type: Surgical Subm Dr: Adrian Kerr Tissues: A Placenta - 3rd Trimester (Greater than 28 weeks) (PLACENTA) B Fallopian Tube - Sterilization (FT BILATERAL) Procedures: HE/5, Gross/Micro L5, Gross/Micro L2 ---- Patient: Tiffani Allison [id number] (Continued) ---- Specimen: [id number] Received: 12/13/23 (Continued) Gross Description (Continued) of 420 grams. Summary of sections: A1: umbilical cord at end and membrane roll including possible site of rupture A2: umbilical cord at placental end and parenchyma adjacent to cord insertion site A3: random mid-zonal section B. Received in formalin, labeled with the patient's name, date of and bilateral fallopian tubes are 2 undesignated, fimbriated fallopian tubes (arbitrarily assigned as #1 and #2). The serosa covering each tube is burnham-purple and unremarkable. Tube #1 measures 11.9 cm in length and ranges from 0.5 to 0.6 cm in diameter. Tube #2 measures 9.2 cm in length and ranges from 0.4 to 0.6 cm in diameter. Cut sections of each tube demonstrate intact luminal centers lined by unremarkable burnham mucosa. Drupal Web Developer sections are submitted in A1 (tube #1) and A2 (tube #2). Clinical history: Previous . , 4, 7, 9, gestational age 37 weeks, small baby CPT Codes [id number] ---- ---- Specimen: [id number] Received: 12/13/23 Status: KENISHA Jerry Num: [id number] Spec Type: Surgical Subm Dr: Adrian Kerr Tissues: A Placenta - 3rd Trimes (more content not included)... Normal [facility] Urinalysis macro (dipstick) panel (U)on 09-15-2023 Bilirubin, UA Negative Negative - 4(70) +++ mg/dL [facility] Blood, UA Negative Negative - 50 Maikol/mcL [facility] Clarity, UA Clear [facility] Color, UA Yellow [facility] Glucose, UA Negative Negative - 1999(110) ++++ mg/dL [facility] Interpretation and review of laboratory results Abnormal [facility] Ketones, UA Negative Negative - 160(16) ++++ mg/dL [facility] Leukocytes, UA Negative Negative - 500+++ Endy/mcL [facility] Nitrite, UA Negative Negative - Positive [facility] pH, UA 6.0 5 - 9 [facility] Protein, UA Trace Negative - 1999(20) ++++ mg/dL [facility] Spec Grav, UA 1.025 1 - 1.03 [facility] Urobilinogen, UA 0.2 0.2 - 12 mg/dL [facility] Reminderson 08-05-2023 Reminders - From: Ewa Valentin To: EU - teodoro Chiu; Sent: 01/26/2023 10:51:29 EDT Show up: 06/28/2023 09:51:00 EST Subject: Reminder Message Due Date/Time: 07/28/2023 09:51:00 EST Call pt to schedule a KUB and YAMILETH Called pt and left VM to return our call From: Ana Sherwood ( - teodoro Chiu) To: Alyson Chiu MD; Sent: 07/11/2023 13:04:24 EST Show up: 07/11/2023 13:03:00 EST Subject: RE: Reminder Message Called pt and she states that she is 15 weeks and was wondering if imaging is still safe. Please advise. From: Alyson Chiu MD To: RICKY - Doug Chiu; Sent: 07/11/2023 18:00:02 EST Show up: 07/11/2023 18:00:00 EST Subject: RE: Reminder Message renal US is safe, can hold off on KUB Called pt and left VM to return our call. Pt needs advised YAMILETH is safe during and YAMILTEH needs ordered and faxed to pt location request. no KUB needed Spoke to pt. At this time she wishes to cancel appt. Will call in future with any problems. From: Ana Sherwood (EU - Recalls Luestefani) To: Alyson Chiu MD; Sent: 08/04/2023 11:10:53 EST Show up: 08/04/2023 11:10:00 EST Subject: RE: Reminder Message Does pt need tracked? From: Alyson Chiu MD To: EU - Recalls Luestefani; Sent: 08/05/2023 09:02:01 EST Show up: 08/05/2023 09:01:00 EST Subject: RE: Reminder Message No Normal [facility] Free Cell DNAon 2022 [facility] HCG ( test) IA.rapi d Ql (U)Ordered By: Denys Gallego on 03-15-2023 HCG ( test) Ql (U) Negative [facility] CBC AUTO DIFFon 12-28-2022 BASO # 0.0 103/ul Normal 0.0-0.1 [facility] Comment on above: Performed By: #### F ERR, FETIBC #### [facility] [address] [address] [address] Michele Obrien Basophils/100 WBC (Bld) 0.5 % Normal 0.2-2.0 [facility] Comment on above: Performed By: #### F ERR, FETIBC #### [facility] [address] [address] [address] Michele Obrien EO # 0.2 103/ul Normal 0.0-0.7 [facility] Comment on above: Performed By: #### F ERR, FETIBC #### [facility] [address] [address] [address] Michele Obrien Eosinophils/100 WBC (Bld) 2.6 % Normal 0.9-7.0 [facility] Comment on above: Performed By: #### F ERR, FETIBC #### [facility] [address] [place] [address] Dr. Michele Obrien Erythrocyte distribution width (RBC) [Ratio] 19.1 % Critically high 11.0-15.0 [facility] Comment on above: Performed By: #### F ERR, FETIBC #### [facility] [address] [place] [address] Dr. Michele Obrien Hematocrit (Bld) [Volume fraction] 37.6 % Normal 36.0-48.0 [facility] Comment on above: Performed By: #### F ERR, FETIBC #### [facility] [address] [place] [address] Dr. Michele Obrien Hemoglobin (Bld) [Mass/Vol] 11.9 g/dL Critically low 12.0-16.0 [facility] Comment on above: Performed By: #### F ERR, FETIBC #### [facility] [address] [place] [address] Dr. Michele Obrien IG # 0.03 10e3/ul Normal 0.00-0.03 [facility] Comment on above: Performed By: #### F ERR, FETIBC #### [facility] [address] [place] [address] Dr. Michele Obrien IG % 0.3 % Normal 0.0-0.5 [facility] Comment on above: Performed By: #### F ERR, FETIBC #### [facility] [address] [place] [address] Dr. Michele Obrien LYMPH # 1.6 103/ul Normal 1.2-3.8 [facility] Comment on above: Performed By: #### F ERR, FETIBC #### [facility] [address] [place] [address] Dr. Michele Obrien Lymphocytes/100 WBC (Bld) 18.4 % Critically low 20.5-60.0 [facility] Comment on above: Performed By: #### F ERR, FETIBC #### [facility] [address] [place] [address] Dr. Michele Obrien MANUAL DIFF REQ NO Normal [facility] Comment on above: Performed By: #### F ERR, FETIBC #### [facility] [address] [place] [address] Dr. Michele Obrien MCH (RBC) [Entitic mass] 23.7 pg Critically low 26.7-34.0 [facility] Comment on above: Performed By: #### F ERR, FETIBC #### [facility] [address] [place] [address] Dr. Michele Obrien MCHC (RBC) [Mass/Vol] 31.6 g/dL Normal 29.9-35.2 [facility] Comment on above: Performed By: #### F ERR, FETIBC #### [facility] [address] [place] [address] Dr. Michele Obrien MCV (RBC) [Entitic vol] 74.9 fL Critically low 81.0-99.0 [facility] Comment on above: Performed By: #### F ERR, FETIBC #### [facility] [address] [place] [address] Dr. Michele Obrien MONO # 0.5 103/ul Normal 0.3-0.8 [facility] Comment on above: Performed By: #### F ERR, FETIBC #### [facility] [address] [place] [address] Dr. Michele Obrien Monocytes/100 WBC (Bld) 5.9 % Normal 1.7-12.0 [facility] Comment on above: Performed By: #### F ERR, FETIBC #### [facility] [address] [place] [address] Dr. Michele Obrien NEUT # 6.4 103/ul Normal 1.4-6.5 [facility] Comment on above: Performed By: #### F ERR, FETIBC #### [facility] [address] [place] [address] Dr. Michele Obrien Neutrophils/100 WBC (Bld) 72.3 % Normal 43.0-75.0 [facility] Comment on above: Performed By: #### F ERR, FETIBC #### [facility] [address] [place], [place] [address] Dr. Michele Obrien Platelet mean volume (Bld) [Entitic vol] 10.2 fL Normal 9.5-13.5 [facility] Comment on above: Performed By: #### F ERR, FETIBC #### [facility] [address] [place], [place] [address] Dr. Michele Obrien PLT 243 103/ul Normal 150-450 [facility] Comment on above: Performed By: #### F ERR, FETIBC #### [facility] [address] [place], [place] [address] Dr. Michele Obrien RBC 5.02 106/ul Normal 4.20-5.40 [facility] Comment on above: Performed By: #### F ERR, FETIBC #### [facility] [address] [place], [place] [address] Dr. Michele Obrien WBC 8.9 103/ul Normal 4.0-11.0 [facility] Comment on above: Performed By: #### F ERR, FETIBC #### [facility] [address] [place], [place] [address] ABD/PELVIS WO CONon [...] Punctate right UVJ calculus with mild right hydroureteronephrosis. Bowel: Surgical changes from gastric sleeve. Small hiatal hernia. Peritoneum/retroperito neum: No significant finding. Lymph nodes: No significant finding. Vessels: No significant finding. Body wall: Tiny fat-containing umbilical hernia. Reproductive: IUD in place. Bones: No significant finding. IMPRESSION: Punctate right UVJ calculus with mild right hydroureteronephrosis. Borderline splenomegaly. Small hiatal hernia. Electronically authenticated by: ALEXA WHITE Date: 2022-12-28 02:25 Normal [facility] URINE PROFILEon 3 Bilirubin Ql (U) Negative Normal NEGATIVE [facility] Comment on above: Performed By: #### H IV12 #### [facility] [address] [address] [address] Michele Obrien Clarity (U) CLEAR Normal CLEAR [facility] Comment on above: Performed By: #### H IV12 #### [facility] [address] [address] [address] Michele Obrien Color (U) LT. YELLOW Normal YELLOW [facility] Comment on above: Performed By: #### H IV12 #### [facility] [address] [place] [address] Dr. Michele JACKSON A micrscopic examination will be performed if indicated. Normal The [facility] Comment on above: Performed By: #### H IV12 #### [facility] [address] [address] [address] Michele Obrien Glucose Ql (U) Negative Normal NEGATIVE [facility] Comment on above: Performed By: #### H IV12 #### [facility] [address] [address] [address] Michele Obrien Hemoglobin Ql (U) MODERATE Abnormal NEGATIVE [facility] Comment on above: Performed By: #### H IV12 #### [facility] [address] [address] [address] Michele Obrien Ketones Ql (U) Negative Normal NEGATIVE [facility] Comment on above: Performed By: #### H IV12 #### [facility] [address] [address] [address] Michele Obrien LEUKOCYTES Negative Normal NEGATIVE [facility] Comment on above: Performed By: #### H IV12 #### [facility] [address] [address] [address] Michele Obrien Nitrite Ql (U) Negative Normal NEGATIVE [facility] Comment on above: Performed By: #### H IV12 #### [facility] [address] [place] [address] Dr. Michele Obrien pH (U) 5.5 [pH] Normal 5-9 [facility] Comment on above: Performed By: #### H IV12 #### [facility] [address] [place] [address] Dr. Michele Obrien SPEC GRAVITY 1.025 Normal 1.005-<=1.025 [facility] Comment on above: Performed By: #### H IV12 #### [facility] [address] [place] [address] Dr. Michele Obrien UA PROTEIN Negative Normal NEGATIVE/ TRACE [facility] Comment on above: Performed By: #### H IV12 #### [facility] [address] [place] [address] Dr. Michele Obrien UR MICRO IND INDICATED Normal [facility] Comment on above: Performed By: #### H IV12 #### [facility] [address] [place] [address] Dr. Michele Obrien Urobilinogen Qn (U) 0.2 {Ijeoma'U}/dL Normal 0.2 - 1. 0 [facility] Comment on above: Performed By: #### H IV12 #### [facility] [address] [place] [address] Dr. Michele Obrien PREG HCG QUALon 12-28-2022 , QUAL Negative Normal NEGATIVE [facility] Comment on above: Performed By: #### P REG #### [facility] [address] [place] [address] Dr. Michele Obrien PROF 14(COMP METB)on 023 Albumin [Mass/Vol] 3.4 g/dL Normal 3.4-5.0 [facility] Comment on above: Performed By: #### C MP #### [facility] [address] [place] [address] Dr. Michele Obrien Albumin/Globulin [Mass ratio] 1.1 {ratio} Normal [facility] Comment on above: Performed By: #### C MP #### [facility] [address] [place] [address] Dr. Michele Obrien ALP [Catalytic activity/Vol] 73 U/L Normal 46-116 [facility] Comment on above: Performed By: #### C MP #### [facility] [address] [place] [address] Dr. Michele Obrien ALT [Catalytic activity/Vol] 18 U/L Normal 14-59 [facility] Comment on above: Performed By: #### C MP #### [facility] [address] [place] [address] Dr. Michele Obrien Anion gap [Moles/Vol] 11.9 mmol/L Normal [facility] Comment on above: Performed By: #### C MP #### [facility] [address] [place] [address] Dr. Michele Obrien AST [Catalytic activity/Vol] 13 U/L Critically low 15-37 [facility] Comment on above: Performed By: #### C MP #### [facility] [address] [place] [address] Dr. Michele Obrien Bilirubin [Mass/Vol] 0.1 mg/dL Critically low 0.2-1.0 [facility] Comment on above: Performed By: #### C MP #### [facility] [address] [place] [address] Dr. Michele Obrien Calcium [Mass/Vol] 8.6 mg/dL Normal 8.5-10.1 [facility] Comment on above: Performed By: #### C MP #### [facility] [address] [place] [address] Dr. Michele Obrien Chloride [Moles/Vol] 105 mmol/L Normal 98-107 [facility] Comment on above: Performed By: #### C MP #### [facility] [address] [address] [address] Michele Obrien CO2 [Moles/Vol] 26.7 mmol/L Normal 21.0-32.0 [facility] Comment on above: Performed By: #### C MP #### [facility] [address] [place] [address] Dr. Michele Obrien Creatinine [Mass/Vol] 0.85 mg/dL Normal 0.55-1.02 [facility] Comment on above: Performed By: #### C MP #### [facility] [address] [address] [address] Michele Obrien EGFR-AF MOSOTHO >60 Normal >=60 [facility] Comment on above: Performed By: #### C MP #### [facility] [address] [address] [address] Michele Obrien EGFR-NON AF MOSOTHO >60 Normal >=60 [facility] Comment on above: Performed By: #### C MP #### [facility] [address] [address] [address] Michele Obrien Globulin (S) [Mass/Vol] 3.1 g/dL Normal [facility] Comment on above: Performed By: #### C MP #### [facility] [address] [place] [address] Dr. Michele Obrien Glucose [Mass/Vol] 123 mg/dL Critically high 74-106 [facility] Comment on above: Performed By: #### C MP #### [facility] [address] [address] [address] Michele Obrien Potassium [Moles/Vol] 3.6 mmol/L Normal 3.5-5.1 [facility] Comment on above: Performed By: #### C MP #### [facility] [address] [address] [address] Michele Obrien Protein [Mass/Vol] 6.5 g/dL Normal 6.4-8.2 [facility] Comment on above: Performed By: #### C MP #### [facility] [address] [address] [address] Michele Obrien Sodium [Moles/Vol] 140 mmol/L Normal 136-145 [facility] Comment on above: Performed By: #### C MP #### [facility] [address] [address] [address] Michele Obrien Urea nitrogen [Mass/Vol] 14.0 mg/dL Normal 7.0-18.0 [facility] Comment on above: Performed By: #### C MP #### [facility] [address] [place] [address] Dr. Michele Obrien Urea nitrogen/Creatinine [Mass ratio] 16.5 mg/mg Normal The [facility] Comment on above: Performed By: #### C MP #### [facility] [address] [place] [address] Dr. Michele Obrien URINE MICROSCOPIC ONLYon BACTERIA TRACE Abnormal NONE SEEN The [facility] Comment on above: Performed By: #### H IV12 #### [facility] [address] [place] [address] Dr. Michele Obrien Bacteria identified Cx Nom (U) NOT INDICATED Normal The [facility] Comment on above: Performed By: #### H IV12 #### [facility] [address] [place] [address] Dr. Michele Obrien CAST NONE SEEN Normal NONE SEEN [facility] Comment on above: Performed By: #### H IV12 #### [facility] [address] [place] [address] Dr. Michele Obrien Crystals LM Nom (Urine sed) NONE SEEN Normal NONE SEEN [facility] Comment on above: Performed By: #### H IV12 #### [facility] [address] [place] [address] Dr. Michele Obrien Epithelial cells LM Ql (Urine sed) FEW Abnormal NONE SEEN /RARE The [facility] Comment on above: Performed By: #### H IV12 #### [facility] [address] [place] [address] Dr. Michele Obrien MUCOUS TRACE Abnormal NONE SEEN The [facility] Comment on above: Performed By: #### H IV12 #### [facility] [address] [place] [address] Dr. Michele Obrien RBC 20-50 Abnormal 0-2 The [facility] Comment on above: Performed By: #### H IV12 #### [facility] [address] [place] [address] Dr. Michele Obrien WBC 0-2 Abnormal NONE SEEN [facility] Comment on above: Performed By: #### H IV12 #### [facility] [address] [place] [address] Dr. Michele Obrien HIV 1 AND 2 WITH REFLEXon HIV Screen 4th Generation wRfx Non-Reactive Normal Non Reactive The [facility] Comment on above: Result Comment: HIV Negative HIV-1/HIV-2 antibodies and HIV-1 p24 antigen were NOT detected. There is no laboratory evidence of HIV infection. Performed By: #### H IV12 #### [facility] [address] [place] [address] Dr. Michele Obrien FERRITINon 10-16-2022 Ferritin [Mass/Vol] 6.0 ng/mL Critically low 6.2-137.0 [facility] Comment on above: Performed By: #### F ERR, FETIBC #### [facility] [address] [place] [address] Dr. Michele Obrien FREE T3on 10-16-2022 FREE T3 1.87 pg/mlL Critically low 2.18-3.98 [facility] Comment on above: Performed By: #### H IV12 #### [facility] [address] [place] [address] Dr. Michele Obrien HEMOGRAM AND PLATELon 2022 Hematocrit (Bld) [Volume fraction] 35.7 % Critically low 36.0-48.0 The [facility] Comment on above: Performed By: #### H H #### [facility] [address] [place] [address] Dr. Michele Obrien Hemoglobin (Bld) [Mass/Vol] 10.4 g/dL Critically low 12.0-16.0 The [facility] Comment on above: Performed By: #### H H #### [facility] [address] [place] [address] Dr. Michele Obrien MCH (RBC) [Entitic mass] 20.0 pg Critically low 26.7-34.0 The [facility] Comment on above: Performed By: #### H H #### [facility] [address] [place] [address] Dr. Michele Obrien MCHC (RBC) [Mass/Vol] 29.1 g/dL Critically low 29.9-35.2 The [facility] Comment on above: Performed By: #### H H #### [facility] [address] [address] [address] Michele Obrien MCV (RBC) [Entitic vol] 68.5 fL Critically low 81.0-99.0 [facility] Comment on above: Performed By: #### H H #### [facility] [address] [address] [address] Michele Obrien PLT 241 103/ul Normal 150-450 [facility] Comment on above: Performed By: #### H H #### [facility] [address] [address] [address] Michele Obrien RBC 5.21 106/ul Normal 4.20-5.40 [facility] Comment on above: Performed By: #### H H #### [facility] [address] [address] [address] Michele Obrien WBC 6.9 103/ul Normal 4.0-11.0 [facility] Comment on above: Performed By: #### H H #### [facility] [address] [place] [address] Dr. Michele Obrien IRON AND TIBCon 10-16-2022 % SATURATION 4.5 % Normal [facility] Comment on above: Performed By: #### F ERR, FETIBC #### [facility] [address] [address] [address] Michele Obrien Iron [Mass/Vol] 18.0 ug/dL Critically low 50.0-170.0 [facility] Comment on above: Performed By: #### F ERR, FETIBC #### [facility] [address] [address] [address] Michele Obrien TIBC DIRECT 396.0 ug/dL Normal 250.0-450.0 [facility] Comment on above: Performed By: #### F ERR, FETIBC #### [facility] [address] [address] [address] Michele Obrien TSH W/ REFLEX TO FT4on 10-16 TSH 3.577 uIU/mL Normal 0.358-3.740 [facility] Comment on above: Performed By: #### H IV12 #### [facility] [address] [place] [address] Dr. Michele Obrien VITAMIN Con 09-03-2022 Vitamin C 0.2 mg/dL Critically low 0.4-2.0 [facility] Comment on above: Result Comment: Li min C deficiency is generally defined as plasma or serum concentrations less than 0.2 mg/dL and levels between 0.2 and 0.4 mg/dL are considered low. Performed By: #### F ERR, FETIBC #### [facility] [address] [address] [address] Michele Obrien VITAMIN Aon 09-01-2022 Vitamin A 33.6 ug/dL Normal 18.9-57.3 The [facility] Comment on above: Result Comment: Refe [...] Administration. Performed By: #### V ITAMA #### [facility] [address] [place] [address] Dr. Michele Obrien VITAMIN Kodi 09-01-2022 Vitamin E (Alpha T) 11.9 mg/L Normal 5.9-19.4 [facility] Comment on above: Performed By: #### V ITAE #### [facility] [address] [place] [address] Dr. Michele Obrien Vitamin E (Gamma T) 1.5 mg/L Normal 0.7-4.9 [facility] Comment on above: Result Comment: Refe rence intervals for alpha and gamma-tocopherol determined from National Health and Nutrition Examination Survey, 2011-8927. Individuals with alpha-tocopherol levels less than 5.0 mg/L are considered vitamin E deficient. Performed By: #### V ITAE #### [facility] [address] [place] [address] Dr. Michele Obrien VITAMIN Garrett 08-26-2022 Vitamin K1 0.24 ng/mL Normal 0.10-2.20 [facility] Comment on above: Performed By: #### F ERR, FETIBC #### [facility] [address] [place] [address] Dr. Michele Obrien SELENIUM, PLASMAon Selenium, Serum/Plasma 110 ug/L Normal 93-198 [facility] Comment on above: Performed By: #### H IV12 #### [facility] [address] [address] [address] Michele Obrien VITAMIN B1 (THIAMINE)on 08-02 Vit. B1, Whole Blood 126.2 nmol/L Normal 66.5-200.0 [facility] Comment on above: Performed By: #### F ERR FETIBC #### [facility] [address] [place] [address] Dr. Michele Obrien ZINC SERUM OR PLASMAon 08-23 Zinc, Plasma or Serum 69 ug/dL Normal 44-115 [facility] Comment on above: Result Comment: Dete ction Limit = 5 Performed By: #### H IV12 #### [facility] [address] [place] [address] Dr. Michele Obrien FERRITINon 08-20-2022 Ferritin [Mass/Vol] 5.0 ng/mL Critically low 6.2-137.0 [facility] Comment on above: Performed By: #### F SUSIE FETIBC #### [facility] [address] [place] [address] Dr. Michele Obrien FREE T4on 08-20-2022 Free T4 [Mass/Vol] 1.01 ng/dL Normal 0.76-1.46 [facility] Comment on above: Performed By: #### H IV12 #### [facility] [address] [place] [address] Dr. Michele Obrien GLYCOHEMOGLOBIN A1Con 2022 ADA RECOMMENDATION SEE BELOW Normal [facility] Comment on above: Result Comment: ADA RECOMMENDED LIMIT 4.0 - 6.0 ADA THERAPEUTIC TARGET < 7.0 ACTION SUGGESTED > 7.0 Performed By: #### H IV12 #### [facility] [address] [place] [address] Dr. Michele Obrien Glucose [Mass/Vol] 80 mg/dL Normal [facility] Comment on above: Performed By: #### H IV12 #### [facility] [address] [place] [address] Dr. Michele Obrien HbA1c (Bld) [Mass fraction] 4.4 % Critically low 4.5-6.2 [facility] Comment on above: Performed By: #### H IV12 #### [facility] [address] [place] [address] Dr. Michele Obrien HEMOGRAM AND PLATELon 2022 Hematocrit (Bld) [Volume fraction] 29.3 % Critically low 36.0-48.0 [facility] Comment on above: Performed By: #### H IV12 #### [facility] [address] [place] [address] Dr. Michele Obrien Hemoglobin (Bld) [Mass/Vol] 9.3 g/dL Critically low 12.0-16.0 [facility] Comment on above: Performed By: #### H IV12 #### [facility] [address] [place] [address] Dr. Michele Obrien MCH (RBC) [Entitic mass] 20.1 pg Critically low 26.7-34.0 [facility] Comment on above: Performed By: #### H IV12 #### [facility] [address] [place] [address] Dr. Michele Obrien MCHC (RBC) [Mass/Vol] 31.7 g/dL Normal 29.9-35.2 [facility] Comment on above: Performed By: #### H IV12 #### [facility] [address] [place] [address] Dr. Michele Obrien MCV (RBC) [Entitic vol] 63.4 fL Critically low 81.0-99.0 [facility] Comment on above: Performed By: #### H IV12 #### [facility] [address] [place] [address] Dr. Michele Obrien PLT 213 103/ul Normal 150-450 [facility] Comment on above: Performed By: #### H IV12 #### [facility] [address] [place] [address] Dr. Michele Obrien RBC 4.62 106/ul Normal 4.20-5.40 [facility] Comment on above: Performed By: #### H IV12 #### [facility] [address] [address] [address] Michele Obrien WBC 5.8 103/ul Normal 4.0-11.0 [facility] Comment on above: Performed By: #### H IV12 #### [facility] [address] [place] [address] Dr. Michele Obrien IRON AND TIBCon 08-20-2022 % SATURATION 6.5 % Normal [facility] Comment on above: Performed By: #### F ERR, FETIBC #### [facility] [address] [place] [address] Dr. Michele Obrien Iron [Mass/Vol] 22.0 ug/dL Critically low 50.0-170.0 [facility] Comment on above: Performed By: #### F ERR, FETIBC #### [facility] [address] [place] [address] Dr. Michele Obrien TIBC DIRECT 340.0 ug/dL Normal 250.0-450.0 [facility] Comment on above: Performed By: #### F ERR, FETIBC #### [facility] [address] [place] [address] Dr. Michele Obrien LIPID PROFILEon 08-20-2022 CHOL-HDL RATIO NORM SEE BELOW Normal [facility] Comment on above: Result Comment: 3.3 - 4.4 LOW RISK 4.4 - 7.1 AVERAGE RISK 7.1 - 11.0 MODERATE RISK >11.0 HIGH RISK Performed By: #### F ERR, FETIBC #### [facility] [address] [place] [address] Dr. Michele Obrien Cholesterol [Mass/Vol] 146 mg/dL Normal <=200 The [facility] Comment on above: Performed By: #### F ERR, FETIBC #### [facility] [address] [address] [address] Michele Obrien Cholesterol in HDL [Mass/Vol] 58 mg/dL Normal 40-60 [facility] Comment on above: Performed By: #### F ERR, FETIBC #### [facility] [address] [address] [address] Michele Obrien Cholesterol in LDL [Mass/Vol] 66.8 mg/dL Normal [facility] Comment on above: Performed By: #### F ERR, FETIBC #### [facility] [address] [address] [address] Michele Obrien Cholesterol.total/Ch olesterol in HDL [Mass ratio] 2.5 {ratio} Normal [facility] Comment on above: Performed By: #### F ERR, FETIBC #### [facility] [address] [address] [address] Michele Obrien HDL NORMAL > or = 60 mg/dl - LO W CARDIOVASCULAR RISK <40 mg/dl - HIGH CARDIOVASCULAR RISK Normal [facility] Comment on above: Performed By: #### F ERR, FETIBC #### [facility] [address] [address] [address] Michele Obrien LDL CALC NORMAL SEE BELOW Normal [facility] Comment on above: Result Comment: <100 mg/dl OPTIMAL 100 - 129 mg/dl NEAR OR ABOVE OPTIMAL 130 - 159 mg/dl BORDERLINE HIGH 160 - 189 mg/dl HIGH >190 mg/dl VERY HIGH Performed By: #### F ERR, FETIBC #### [facility] [address] [address] [address] Michele Obrien Triglyceride [Mass/Vol] 106 mg/dL Normal <=150 The [facility] Comment on above: Performed By: #### F ERR, FETIBC #### [facility] [address] [address] [address] Michele Obrien VLDL CALC 21.2 mg/dL Normal [facility] Comment on above: Performed By: #### F ERR, FETIBC #### [facility] [address] [address] [address] Michele Obrien PROF 14(COMP METB)on 023 Albumin [Mass/Vol] 3.5 g/dL Normal 3.4-5.0 [facility] Comment on above: Performed By: #### F ERR, FETIBC #### [facility] [address] [address] [address] Michele Obrien Albumin/Globulin [Mass ratio] 1.2 {ratio} Normal [facility] Comment on above: Performed By: #### F ERR, FETIBC #### [facility] [address] [address] [address] Michele Obrien ALP [Catalytic activity/Vol] 76 U/L Normal 46-116 [facility] Comment on above: Performed By: #### F ERR, FETIBC #### [facility] [address] [address] [address] Michele Obrien ALT [Catalytic activity/Vol] 16 U/L Normal 14-59 [facility] Comment on above: Performed By: #### F ERR, FETIBC #### [facility] [address] [address] [address] Michele Obrien Anion gap [Moles/Vol] 10.0 mmol/L Normal [facility] Comment on above: Performed By: #### F ERR, FETIBC #### [facility] [address] [address] [address] Michele Obrien AST [Catalytic activity/Vol] 16 U/L Normal 15-37 [facility] Comment on above: Performed By: #### F ERR, FETIBC #### [facility] [address] [address] [address] Michele Obrien Bilirubin [Mass/Vol] 0.3 mg/dL Normal 0.2-1.0 [facility] Comment on above: Performed By: #### F ERR, FETIBC #### [facility] [address] [address] [address] Michele Obrien Calcium [Mass/Vol] 8.5 mg/dL Normal 8.5-10.1 [facility] Comment on above: Performed By: #### F ERR, FETIBC #### [facility] [address] [address] [address] Michele Obrien Chloride [Moles/Vol] 106 mmol/L Normal 98-107 [facility] Comment on above: Performed By: #### F ERR, FETIBC #### [facility] [address] [address] [address] Michele Obrien CO2 [Moles/Vol] 30.8 mmol/L Normal 21.0-32.0 [facility] Comment on above: Performed By: #### F ERR, FETIBC #### [facility] [address] [address] [address] Michele Obrien Creatinine [Mass/Vol] 0.68 mg/dL Normal 0.55-1.02 [facility] Comment on above: Performed By: #### F ERR, FETIBC #### [facility] [address] [address] [address] Michele Obrien EGFR-AF MOSOTHO >60 Normal >=60 [facility] Comment on above: Performed By: #### F ERR, FETIBC #### [facility] [address] [address] [address] Michele Obrien EGFR-NON AF MOSOTHO >60 Normal >=60 [facility] Comment on above: Performed By: #### F ERR, FETIBC #### [facility] [address] [address] [address] Michele Obrien Globulin (S) [Mass/Vol] 2.8 g/dL Normal [facility] Comment on above: Performed By: #### F ERR, FETIBC #### [facility] [address] [address] [address] Michele Obrien Glucose [Mass/Vol] 77 mg/dL Normal 74-106 [facility] Comment on above: Performed By: #### F ERR, FETIBC #### [facility] [address] [address] [address] Michele Obrien Potassium [Moles/Vol] 3.8 mmol/L Normal 3.5-5.1 [facility] Comment on above: Performed By: #### F ERR, FETIBC #### [facility] Laboratory [address] [place] [address] Dr. Michele Obrien Protein [Mass/Vol] 6.3 g/dL Critically low 6.4-8.2 Th [facility] Comment on above: Performed By: #### F ERR, FETIBC #### [facility] [address] [place] [address] Dr. Michele Obrien Sodium [Moles/Vol] 143 mmol/L Normal 136-145 [facility] Comment on above: Performed By: #### F ERR, FETIBC #### [facility] [address] [place] [address] Dr. Michele Obrien Urea nitrogen [Mass/Vol] 10.0 mg/dL Normal 7.0-18.0 [facility] Comment on above: Performed By: #### F ERR, FETIBC #### [facility] [address] [place] [address] Dr. Michele Obrien Urea nitrogen/Creatinine [Mass ratio] 14.7 mg/mg Normal [facility] Comment on above: Performed By: #### F ERR, FETIBC #### [facility] [address] [place] [address] Dr. Michele Obrien TSHon 08-20-2022 TSH 4.302 uIU/mL Critically high 0.358-3.740 [facility] Comment on above: Performed By: #### F ERR, FETIBC #### [facility] [address] [place] [address] Dr. Michele Obrien VIT B12 AND FOLATEon 023 Cobalamin (Vitamin B12) [Mass/Vol] 433.0 pg/mL Normal 193.0-986.0 [facility] Comment on above: Performed By: #### B 12FOL, VITAD #### [facility] [address] [place] [address] Dr. Michele Obrien FOLATE 18.00 ng/mL Normal 8.60-58.90 [facility] Comment on above: Performed By: #### B 12FOL, VITAD #### [facility] [address] [place], [place] [address] Dr. Michele Obrien VITAMIN D 25 OHon 08-20-2022 VIT D 25-OH 33.4 ng/mL Normal [facility] Comment on above: Performed By: #### B 12FOL, VITAD #### [facility] [address] [place] [address] [address] Michele Obrien VIT D RANGES SEE BELOW Normal [facility] Comment on above: Result Comment: <20 ng/mL Vit D deficient 20 - <30 ng/mL Vit D insufficient 30 - 100 ng/mL Vit D sufficient >100 ng/mL Potential Toxicity Performed By: #### B 12FOL, VITAD #### [facility] [address] [address] [address] Michele Obrien Vital Signs Date Time Vital Sign Value Performing Clinician Facility 08-17-2024 10:07-0500 Body height 177.8 cm [facility] [email or web address] Work Phone: [facility] 08-17-2024 10:07-0500 Body mass index (BMI) [Ratio] 43.62 kg/m2 [facility] [email or web address] Work Phone: [facility] 08-17-2024 10:07-0500 Body weight 137.89 kg [facility] [email or web address] Work Phone: [facility] 08-15-2024 10:59-0500 Body height 177.8 cm [facility] 08-15-2024 10:59-0500 Body mass index (BMI) [Ratio] 46 kg/m2 [facility] 08-15-2024 10:59-0500 Body temperature 97.3 [degF] [facility] 08-15-2024 10:59-0500 Body weight 145.65 kg [facility] 08-15-2024 10:59-0500 Diastolic blood pressure 82 mm[Hg] [facility] 08-15-2024 10:59-0500 Heart rate 78 /min [facility] 08-15-2024 10:59-0500 SaO2% (BldA) [Mass fraction] 98 % [facility] 08-15-2024 10:59-0500 Systolic blood pressure 124 mm[Hg] [facility] 06-20-2024 09:58-0500 Body height 177.8 cm [facility] PA Work Phone: [facility] 06-20-2024 09:58-0500 Body mass index (BMI) [Ratio] 43.62 kg/m2 [facility] PA Work Phone: [facility] 06-20-2024 09:58-0500 Body weight 137.89 kg [facility] PA Work Phone: [facility] 06-19-2024 09:39-0500 Body height 177.8 cm Wilber Shammo [employer] Work Phone: [facility] 06-19-2024 09:39-0500 Body mass index (BMI) [Ratio] 43.7 kg/m2 Wilber Shammo [employer] Work Phone: [facility] 06-19-2024 09:39-0500 Body weight 138.34 kg Wilber Shammo [employer] Work Phone: [facility] 06-19-2024 09:39-0500 Diastolic blood pressure 80 mm[Hg] Wilber Shammo [employer] Work Phone: [facility] 06-19-2024 09:39-0500 Heart rate 74 /min Wilber Shammo [employer] Work Phone: [facility] 06-19-2024 09:39-0500 SaO2% (BldA) [Mass fraction] 97 % Wilber Shammo [employer] Work Phone: [facility] 06-19-2024 09:39-0500 Systolic blood pressure 130 mm[Hg] Wilber Shammo [employer] Work Phone: [facility] 06-07-2024 13:17-0500 Body height 177.[address] Work Phone: [facility] 06-07-2024 13:17-0500 Body mass index (BMI) [Ratio] 43.76 kg/m2 Lala Nadia RD Work Phone: [facility] 06-07-2024 13:17-0500 Body weight 138.[address] Work Phone: [facility] Comment on above: verbal 05-24-2024 14:03-0400 Body mass index (BMI) [Ratio] 43.62 kg/m2 Renetta Ruano MD Work Phone: [facility] 05-24-2024 14:03-0400 Body weight 137.89 kg Renetta Ruano MD Work Phone: [facility] 05-24-2024 10:00-0400 Body height 177.8 cm [employer] Wilber Shammo Work Phone: [facility] 05-24-2024 10:00-0400 Body mass index (BMI) [Ratio] 43.7 kg/m2 [employer] Wilber Shammo Work Phone: [facility] 05-24-2024 10:00-0400 Body temperature 97.4 [degF] [employer] Wilber Shammo Work Phone: [facility] 05-24-2024 10:00-0400 Body weight 138.06 kg [employer] Wilber Shammo Work Phone: [facility] 05-24-2024 10:00-0400 Diastolic blood pressure 86 mm[Hg] [employer] Wilber Shammo Work Phone: [facility] 05-24-2024 10:00-0400 SaO2% (BldA) [Mass fraction] 98 % [employer] Wilber Shammo Work Phone: [facility] 05-24-2024 10:00-0400 Systolic blood pressure 120 mm[Hg] [employer] Wilber Shammo Work Phone: [facility] 05-10-2024 10:45-0400 Body height 177.8 cm [employer] Wilber Shammo Work Phone: [facility] 05-10-2024 10:45-0400 Body mass index (BMI) [Ratio] 43.4 kg/m2 [employer] Wilber Shammo Work Phone: [facility] 05-10-2024 10:45-0400 Body weight 137.43 kg [employer] Wilber Shammo Work Phone: [facility] 05-10-2024 10:45-0400 Diastolic blood pressure 72 mm[Hg] [employer] Wilber Shammo Work Phone: [facility] 05-10-2024 10:45-0400 Heart rate 73 /min [employer] Wilber Shammo Work Phone: [facility] 05-10-2024 10:45-0400 Respiratory rate 18 /min [employer] Wilber Shammo Work Phone: [facility] 05-10-2024 10:45-0400 SaO2% (BldA) [Mass fraction] 98 % [employer] Wilber Shammo Work Phone: [facility] 05-10-2024 10:45-0400 Systolic blood pressure 156 mm[Hg] [employer] Wilber Shammo Work Phone: [facility] 04-24-2024 09:38-0400 Body height 177.8 cm Raine Grissom MD Work Phone: [facility] 04-24-2024 09:38-0400 Body mass index (BMI) [Ratio] 43.81 kg/m2 Raine Grissom MD Work Phone: [facility] 04-24-2024 09:38-0400 Body weight 138.5 kg Raine Grissom MD Work Phone: [facility] 04-24-2024 09:38-0400 Diastolic blood pressure 82 mm[Hg] Raine Grissom MD Work Phone: [facility] 04-24-2024 09:38-0400 Heart rate 80 /min Raine Grissom MD Work Phone: [facility] 04-24-2024 09:38-0400 Systolic blood pressure 144 mm[Hg] Raine Grissom MD Work Phone: [facility] 04-16-2024 14:36-0400 Body height 177.8 cm Rocio Jeff MD Work Phone: [facility] 04-16-2024 14:36-0400 Body mass index (BMI) [Ratio] 43.05 kg/m2 Rocio Jeff MD Work Phone: [facility] 04-16-2024 14:36-0400 Body temperature 97.7 [degF] Rocio Jeff MD Work Phone: [facility] 04-16-2024 14:36-0400 Body weight 136.08 kg Rocio Jeff MD Work Phone: [facility] 04-16-2024 14:36-0400 Diastolic blood pressure 79 mm[Hg] Rocio Jeff MD Work Phone: [facility] 04-16-2024 14:36-0400 Heart rate 72 /min Rocio Jeff MD Work Phone: [facility] 04-16-2024 14:36-0400 Systolic blood pressure 149 mm[Hg] Rocio Jeff MD Work Phone: [facility] 03-13-2024 10:03-0400 Blood Pressure Location [facility] [place] 03-13-2024 10:03-0400 Diastolic blood pressure 85 mm[Hg] [facility] [place] 03-13-2024 10:03-0400 Heart rate 80 /min [facility] [place] 03-13-2024 10:03-0400 Respiratory rate 16 /min [facility] [place] 03-13-2024 10:03-0400 Systolic blood pressure 124 mm[Hg] [facility] [place] 02-28-2024 13:15-0400 Body height 180.34 cm [employer] Wilber Shammo Work Phone: [facility] 02-28-2024 13:15-0400 Body mass index (BMI) [Ratio] 42.4 kg/m2 [employer] Wilber Shammo Work Phone: [facility] 02-28-2024 13:15-0400 Body weight 137.89 kg [employer] Wilber Shammo Work Phone: [facility] 02-28-2024 13:15-0400 Diastolic blood pressure 78 mm[Hg] [employer] Wilber Shammo Work Phone: [facility] 02-28-2024 13:15-0400 Heart rate 76 /min [employer] Wilber Shammo Work Phone: [facility] 02-28-2024 13:15-0400 SaO2% (BldA) [Mass fraction] 100 % [employer] Wilber Shammo Work Phone: [facility] 02-28-2024 13:15-0400 Systolic blood pressure 130 mm[Hg] [employer] Wilber Shammo Work Phone: [facility] 09-22-2023 09:42-0500 Body mass index (BMI) [Ratio] 44.85 kg/m2 Héctor [facility]ilar MD [facility] 09-22-2023 09:42-0500 Body weight 141.79 kg Héctor Aguilar MD [facility] 09-22-2023 09:42-0500 Diastolic blood pressure 74 mm[Hg] Héctor Aguilar MD Work Phone: [facility] 09-22-2023 09:42-0500 Heart rate 82 /min Héctor Aguilar MD Work Phone: [facility] 09-22-2023 09:42-0500 Systolic blood pressure 123 mm[Hg] Héctor Aguilar MD Work Phone: [facility] 09-15-2023 11:30-0500 Body mass index (BMI) [Ratio] 43.52 kg/m2 Kassandra Dominic PA Work Phone: [facility] 09-15-2023 11:30-0500 Body weight 141.52 kg Kassandra Strandburg PA Work Phone: [facility] 09-15-2023 11:30-0500 Diastolic blood pressure 80 mm[Hg] Kassandra Dominic PA Work Phone: [facility] 09-15-2023 11:30-0500 Systolic blood pressure 130 mm[Hg] Kassandra Alfaro PA Work Phone: [facility] [employer] 05-19-2023 15:30-0400 Body weight 128.05 kg Denys Gallego Other [employer] Other 05-19-2023 15:30-0400 Diastolic blood pressure 86 mm[Hg] Denys Gallego Other [employer] Other 05-19-2023 15:30-0400 Systolic blood pressure 127 mm[Hg] Denys Gallego Other [employer] Other 03-15-2023 10:48-0400 Diastolic blood pressure 80 mm[Hg] [employer] Wilber Shammo Work Phone: [facility] 03-15-2023 10:48-0400 Heart rate 63 /min [employer] Wilber Shammo Work Phone: [facility] 03-15-2023 10:48-0400 Respiratory rate 16 /min [employer] Wilber Shammo Work Phone: [facility] 03-15-2023 10:48-0400 SaO2% (BldA) [Mass fraction] 99 % [facility] Wilber Shammo Work Phone: [facility] 03-15-2023 10:48-0400 Systolic blood pressure 126 mm[Hg] [employer]- Wilber Shammo Work Phone: [facility] 03-15-2023 08:43-0400 Body height 180.34 cm [employer]- Wilber Shammo Work Phone: [facility] 03-15-2023 08:43-0400 Body temperature 98.2 [degF] [facility]- Wilber Shammo Work Phone: [facility] 03-15-2023 08:43-0400 Body weight 129.27 kg [facility]- Wilber Shammo Work Phone: [facility] 01-17-2023 10:00-0400 Body weight 127.01 kg Denys Gallego Other [employer] Other 01-17-2023 10:00-0400 Diastolic blood pressure 85 mm[Hg] Denys Gallego Other [employer] Other 01-17-2023 10:00-0400 Systolic blood pressure 125 mm[Hg] Denys Gallego Other [employer] Other Encounters Encounter Date Encounter Type Care Provider Facility Start: 08-17-2024 End: 08-17-2024 ambulatory [facility] Not Available Start: 08-17-2024 End: 08-17-2024 Patient encounter procedure Africa Hall PA Work Phone: [facility] Comment on above: Ankle joint instabil ity, right (Primary Dx); Sinus tarsi syndrome of right ankle; Posterior tibial tendinitis of right lower extremity Start: 08-17-2024 End: 08-17-2024 ambulatory AFR[facility] D HILLS Not Available Start: 08-15-2024 End: 08-15-2024 ambulatory [facility] Work Phone: Start: 08-15-2024 End: 08-15-2024 Patient encounter procedure [facility] Work Phone: Start: 07-27-2024 End: 07-27-2024 ambulatory [facility] Facility:[facility] Start: 07-10-2024 End: 07-10-2024 Bamboo flowsheet Africa D Dupo PA Work Phone: [facility] Start: 07-10-2024 End: 07-10-2024 Bamboo flowsheet Africa D Dupo PA Work Phone: [facility] Start: 07-10-2024 End: 07-10-2024 ambulatory [facility] D [facility] Not Available Start: 07-10-2024 End: 07-10-2024 Patient encounter procedure Africa D Dupo PA Work Phone: [facility] Comment on above: 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); Moderate right ankle sprain, sequela Start: 07-02-2024 End: 07-03-2024 [facility] Facility:[facility] Start: 06-29-2024 End: 07-10-2024 [facility] Work Phone: Neurology Start: 06-22-2024 End: 06-22-2024 ambulatory A[facility] D [facility]S Not Available Start: 06-21-2024 End: 06-21-2024 ambulatory [facility] D [facility] Not Available Start: 06-20-2024 End: 06-20-2024 Bamboo flowsheet Africa D Dupo PA Work Phone: [facility] Start: 06-20-2024 End: 06-20-2024 Bamboo flowsheet Africa D Dupo PA Work Phone: [facility] Start: 06-20-2024 End: 06-20-2024 Patient encounter procedure Africa D Dupo PA Work Phone: [facility] Comment on above: Pain and swelling of right lower leg (Primary Dx); Ankle joint instability, right; Pain of right calf Start: 06-20-2024 End: 06-20-2024 ambulatory AFRICA HALL Not Available Start: 06-19-2024 End: 06-19-2024 ambulatory Wilber Leachmo [employer] Work Phone: [facility] Work Phone: Start: 06-19-2024 End: 06-19-2024 Patient encounter procedure Wilber More [employer] [facility] Work [facility]: Start: 06-15-2024 End: 06-15-2024 Patient encounter status Xr Tere pillai Start: 06-15-2024 End: 06-15-2024 Subsequent hospital visit by physician Gissel [facility] Comment on above: Morbid obesity due t o excess calories (HCC) [E66.01] Start: 06-15-2024 End: 06-15-2024 ambulatory [facility] Facility:[facility] Start: 06-15-2024 Encounter for other preprocedural examination MEGHA PRAVEENA [facility] Start: 06-15-2024 Non-patient / Non-visit Wilber Leachmo [employer] Work Phone: [facility] Work Phone: Start: 06-14-2024 End: 06-14-2024 ambulatory [facility] Facility:[facility] Start: 06-08-2024 End: 06-08-2024 ambulatory [facility] Facility:[facility] Start: 06-07-2024 End: 06-07-2024 Admission to same day surgery center Lala Zuniga RD Work Phone: General Surgery Comment on above: H/O gastric sleeve ( Primary Dx); Obesity, Class III, BMI 40-49.9 (morbid obesity) (HCC); Dietary counseling and surveillance Start: 06-07-2024 End: 06-07-2024 ambulatory LALA ZUNIGA Facility:[facility] Start: 06-07-2024 End: 06-07-2024 Telemedicine consultation with patient Lala Zuniga RD Work Phone: General Surgery Start: 06-01-2024 End: 06-01-2024 Orders Only Raine Grissom MD Work Phone: General Surgery Comment on above: Preoperative examina tion (Primary Dx) Start: 06-01-2024 End: 06-01-2024 Preprocedural examination done Raine Grissom MD Work Phone: [facility] Work Phone: Start: 05-24-2024 End: 05-24-2024 Admission to same day surgery center Renetta Ruano MD Work Phone: [facility] Comment on above: Morbid obesity due t o excess calories (HCC) (Primary Dx); S/P bariatric surgery; Preoperative testing; Snoring; Other fatigue; Morbid obesity with BMI of 40.0-44.9, adult (HCC) Start: 05-24-2024 End: 05-24-2024 ambulatory RAINE GRISSOM Facility:[facility] Start: 05-24-2024 End: 05-24-2024 Patient encounter status Renetta Ruano MD Work Phone: [facility] Start: 05-24-2024 End: 05-24-2024 Telemedicine consultation with patient Renetta Ruano MD Work Phone: [facility] Start: 05-24-2024 End: 05-24-2024 ambulatory [employer] Wilber T Shammo Work Phone: [facility] Work Phone: Start: 05-24-2024 End: 05-24-2024 Patient encounter procedure [employer] Wilber Shammo Work Phone: [facility] Work Phone: Start: 05-17-2024 End: 05-17-2024 Telephone encounter Kristi Watts RN General Surgery Comment on above: Patient Update; pt u pdate Start: 05-14-2024 End: 05-14-2024 Admission to same day surgery center Raine Grissom MD Work Phone: General Surgery Comment on above: Body mass index 40.0 -44.9, adult (HCC) (Primary Dx) Start: 05-14-2024 End: 05-14-2024 [facility] Start: 05-14-2024 End: 05-14-2024 Telemedicine consultation with patient Raine Grissom MD Work Phone: General Surgery Start: 05-10-2024 End: 05-10-2024 [facility] Facility[facility] Start: 05-10-2024 End: 05-10-2024 Patient encounter procedure [employer] Wilber Leachkelby Work Phone: [facility] Work Phone: Start: 04-24-2024 End: 04-24-2024 ambulatory RAINE GRISSOM Facility:[facility] Start: 04-24-2024 End: 04-24-2024 Patient encounter procedure Raine Grissom MD Work Phone: General Surgery Comment on above: Gastroesophageal ref lux disease, unspecified whether esophagitis present Start: 04-18-2024 End: 04-18-2024 Telephone encounter Kristi Watts RN General Surgery Comment on above: Patient Update Start: 04-16-2024 End: 04-16-2024 ambulatory SELF Facility:[facility] Start: 04-16-2024 End: 04-16-2024 Patient encounter procedure Rocio Jeff MD Work Phone: General Surgery Comment on above: Gastroesophageal ref lux disease, unspecified whether esophagitis present (Primary Dx); Incisional hernia, without obstruction or gangrene Start: 04-11-2024 End: 04-11-2024 Telephone encounter Hilda Kitchen LPN Work Phone: General Surgery Start: 03-20-2024 End: 03-20-2024 Admission to same day surgery center Lala Contreras APRN.CNP Work Phone: General Surgery Start: 03-20-2024 End: 03-20-2024 ambulatory Lala Contreras OPERATING ROOM MANAGER.TUTOR COORDINATOR Work Phone: General Surgery Start: 03-13-2024 End: 03-13-2024 ambulatory ELISABETH Renu BECKMAN Facility:[facility] Start: 03-13-2024 End: 03-13-2024 Patient encounter procedure [facility] [place] Start: 03-08-2024 ambulatory WILBER SHAMMO Facility:[facility] Start: 03-02-2024 ambulatory WILBER SHAMMO Facility:[facility] Start: 02-28-2024 End: 02-28-2024 ambulatory [employer] Wilber T Shammo Work Phone: [facility] Work Phone: Start: 02-28-2024 End: 02-28-2024 Patient encounter procedure [employer] Wilber Shammo Work Phone: [facility] Work Phone: Start: 01-05-2024 End: 01-05-2024 ambulatory KASSANDRA DOMINIC Not Available Start: 12-19-2023 End: 12-19-2023 ambulatory KASSANDRA DOMINIC Not Available Start: 12-12-2023 End: 12-12-2023 ambulatory [employer] Wilber T Shammo Work Phone: [facility] Work Phone: Start: 12-12-2023 End: 12-12-2023 Departed Referred [employer] Wilber Shammo Work Phone: [facility] Start: 12-08-2023 End: 12-08-2023 ambulatory ADRIAN MYRIAM Not Available Start: 11-30-2023 End: 11-30-2023 ambulatory KASSANDRA DOMINIC Not Available Start: 11-15-2023 End: 11-15-2023 ambulatory ADRIAN MYRIAM Not Available Start: 11-02-2023 End: 11-02-2023 ambulatory [facility] JE[facility] Start: 11-02-2023 End: 11-02-2023 Office outpatient visit 15 minutes Fred Chavez MD Work Phone: [facility] at [facility] Comment on above: Essential hypertensi on affecting in second trimester (Primary Dx) Start: 10-31-2023 End: 10-31-2023 ambulatory KASSANDRA ALFARO Not Available Start: 10-18-2023 End: 10-19-2023 ambulatory ADRIAN R MYRIAM [facility] Start: 10-18-2023 Documentation procedure Fred Chavez MD Work Phone: [facility]- [facility] at [facility] Start: 10-13-2023 End: 10-13-2023 ambulatory ADRIAN MYRIAM Not Available Start: 09-22-2023 End: 09-23-2023 Orders Only Rossy Carrington RN Maternal- Medic ine at [facility] Comment on above: Pre-existing essenti al hypertension during in second trimester (Primary Dx); Advanced maternal age in multigravida, second trimester; Hypothyroid in , antepartum Start: 09-22-2023 End: 09-22-2023 Office consultation new/estab patient 60 min Héctor Aguilar MD Work Phone: [facility]- [facility] at [facility] Comment on above: Essential hypertensi on affecting in second trimester (Primary Dx) Start: 09-15-2023 End: 09-15-2023 flow sheet Kassandra ALBERTO Work Phone: [facility] Comment on above: Second trimester pre gnancy; Diabetes mellitus screening; 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); Hypothyroidism, unspecified type (CMS/HCC) Start: 09-15-2023 End: 09-15-2023 ambulatory KASSANDRA ALFARO Not Available Start: 08-24-2023 Chart abstracting Liz Bee MD Work Phone: [facility] at [facility] Start: 08-19-2023 Telephone encounter Janae espinosa [facility] [place] Start: 08-18-2023 End: 08-18-2023 ambulatory ADIRAN OROZCOO Not Available Start: 08-03-2023 ambulatory WILBER SHAMMO Facility:[facility] Start: 07-21-2023 End: 07-21-2023 ambulatory KASSANDRA ALFARO Not Available Start: 06-13-2023 End: 06-13-2023 ambulatory ADRIAN OROZCOO Not Available Start: 05-19-2023 End: 05-19-2023 ambulatory Denys Gallego Other [employer] Other Start: 05-19-2023 Office outpatient vi sit 15 minutes Denys Gallego [facility] Start: 03-15-2023 End: 03-15-2023 Admission to same day surgery center [facility] Wilber Leachmo Work Phone: [facility] Work Phone: Start: 03-15-2023 End: 03-15-[address] [facility] Wilber T Shammo Work Phone: [facility] Work Phone: Start: 01-26-2023 End: 01-26-2023 Lab Drop off Alyson Chiu [facility] Start: 01-26-2023 End: 01-26-2023 Patient encounter procedure Alyson Chiu [facility] Start: 01-17-2023 End: 01-17-2023 ambulatory Denys Gallego Other [employer] Other Start: 01-17-2023 Office outpatient ne w 45 minutes Denys Gallego [facility] Start: 12-28-2022 End: 12-28-2022 ambulatory LUKE KWAN . Facility: Start: 10-16-2022 End: 10-17-2022 ambulatory WILBER MORE Facility:H1 Start: 08-25-2022 Encounter for genera l adult medical examination without abnormal findings WILBER MORE [facility] Start: 08-20-2022 End: 08-21-2022 ambulatory WILBER MORE Facility:H1 Start: 08-20-2022 End: 08-21-2022 Encounter for general adult medical examination without abnormal findings WILBER MORE Facility:H1 Procedures Date Procedure Procedure Detail Performing Clinician Start: 08-17-2024 Radex ankle complete minimum 3 views Africa ALBERTO Work Phone: Start: 06-21-2024 Adult depression screening assessment Sleep Main Work Phone: Start: 06-15-2024 Radiologic exam chest 2 views Renetta Ruano MD Work Phone: Start: 09-15-2023 Urnls dip stick/tablet rgnt non-auto w/o micrscp Kassandra ALBERTO Work Phone: Start: 06-08-2023 FREE CELL DNA (NON-[facility]) Not In System Ref Prov Start: 03-15-2023 Esophagogastroduodenoscopy BUSINESS DEAN-BC Wilber More Work Phone: Start: 08-01-2016 Appendectomy Alyson Sue Start: 08-01-2016 Gastric sleeve Alyson Lue Start: 08-01-2005 Cholecystectomy Alyson Lue Arthroplasty of knee Alyson L ue Comment on above: Meniscus repair section Alyson Lue Comment on above: x2 section King NIL L Repair of meniscus King CARIAS Plan of Treatment Date Care Activity Detail Author Start: 06-21-2025 Anxiety Screening Anxiety Screening [facility] Start: 06-21-2025 Depression Screening Depression Screening [facility] Start: 09-22-2024 Adult BMI Screening Adult BMI Screening [facility] Start: 09-22-2024 Tobacco Screening Tobacco Screening [facility] Start: 09-22-2024 End: 09-22-2024 US MFM with or without consult US MFM with or without consult Imaging Routine Pre-existing essential hypertension during in second trimester Advanced maternal age in multigravida, second trimester Hypothyroid in , antepartum Expected: 09/22/2024 (Approximate), Expires: 09/22/2024 [facility] Work Phone: Comment on above: Expected: 09/22/2024 (Approximate), Expi res: 09/22/2024 Start: 06-21-2024 End: 06-21-2024 Professional / ancillary services management 06/21/2024 3:00 PM EST Ancillary Procedure [facility] [address] [place] [id number] [facility] Start: 06-20-2024 End: 06-20-2025 US.doppler Lower extremity vein - right Vascular US lower extremity venous duplex right Imaging Routine Pain and swelling of right lower leg Expected: 06/20/2024, Expires: 06/20/2025 [facility] Work Phone: Comment on above: Expected: 06/20/2024, Expires: Start: 06-20-2024 End: 06-20-2024 Patient encounter procedure 06/20/2024 9:45 AM EST Office Visit [facility] [address] [place] [phone] Africa Hall PA [address] [place] [address] Arrived [facility] Comment on above: Arrived Start: 06-08-2024 End: 06-08-2024 Patient encounter procedure 06/08/2024 2:20 PM EST Office [place] [address] Chest XRay and Lab Work [employer] Comment on above: Chest XRay and Lab Work Start: 06-07-2024 End: 06-07-2024 Admission to same day surgery center 06/07/2024 1:15 PM [facility] General Surgery [address] [id number] Lala Zuniga, RD [address] [id number] Purple/Praveena/0 Diet/ General Surgery Comment on above: Purple/Praveena/0 Diet/ Start: 06-01-2024 End: 08-31-2024 NICOTINE & METAB, UR NICOTINE & METAB, UR Lab Routine Preoperative examination Expected: 06/01/2024, Expires: 08/31/2024 [facility] Work Phone: Comment on above: Expected: 06/01/2024, Expires: Start: 05-10-2024 [facility] Start: 04-24-2024 End: 04-24-2024 Patient encounter procedure 04/24/2024 9:00 AM EDT Office Visit General Surgery [address] [id number] Raine Grissom MD [address] [place] [address] K21.9 (ICD-10-CM) - Gastroesophageal reflux disease, unspecified whether esophagitis present General Surgery Comment on above: K21.9 (ICD-10-CM) - Gastroesophageal ref lux disease, unspecified whether esophagitis present Start: 04-16-2024 End: 04-16-2024 Patient encounter procedure General Surgery Comment on above: Ventral wall mass & abdominal wall herni a PT TO BRING IMAGING FOR APPT/CT A/P 03/29/24 Start: 04-01-2024 Covid-19 Vaccine ( season) Covid-19 Vaccine ( season) [facility] Start: 04-01-2024 Covid-19 Vaccine ( season) Covid-19 Vaccine ( season) [facility] Start: 04-01-2024 Influenza vaccination [facility] Start: 02-28-2024 Patient referral [facility] Work Phone: Start: 11-12-2023 Adult BMI Screening Adult BMI Screening [facility] Start: 11-02-2023 End: 11-02-2023 Telemedicine consultation with patient 11/02/2023 11:30 AM EDT Telemedicine Maternal- Medicine at [address] [phone] Fred Chavez MD [address] [place] [address] Héctor Aguilar MD [address] [facility], [address] [place] [address] Maternal- Medicine at [facility] Start: 10-18-2023 End: 10-18-2023 Telemedicine consultation with patient 10/18/2023 1:30 PM EDT Telemedicine Maternal- Medicine at [address] [place] [address] Fred Chavez MD [address] [place] [id number] Maternal- Medicine at [facility] Start: 10-18-2023 End: 10-18-2023 Patient encounter procedure 10/18/2023 12:30 PM EDT Appointment [facility] - Ultrasound [address] [place] [address] [facility] - Ultrasound Start: 10-13-2023 End: 10-13-2023 Patient encounter procedure 10/13/2023 10:50 AM EDT Routine [facility] [address] [place] [phone] Adrian Kerr DO [address] [place] [address] [facility] Start: 09-15-2023 End: 09-15-2024 CBC panel - Blood by Automated count CBC Lab Routine Diabetes mellitus screening Expected: 09/15/2023 (Approximate), Expires: 09/15/2024 [facility] Work Phone: Comment on above: Expected: 09/15/2023 (Approximate), Expi res: 09/15/2024 Start: 09-15-2023 End: 09-15-2024 Measurement of glucose 1 hour after glucose challenge for glucose tolerance test Glucose tolerance, 1 hour Lab Routine Diabetes mellitus screening Expected: 09/15/2023 (Approximate), Expires: 09/15/2024 [facility] Comment on above: Expected: 09/15/2023 (Approximate), Expi res: 09/15/2024 Start: 09-15-2023 End: 09-15-2024 Thyrotropin [Units/volume] in Serum or Plasma TSH Lab Routine Hypothyroidism, unspecified type (CMS/HCC) Expected: 09/15/2023 (Approximate), Expires: 09/15/2024 [facility] Comment on above: Expected: 09/15/2023 (Approximate), Expi res: 09/15/2024 Start: 09-14-2023 End: 09-14-2023 Patient encounter procedure [facility] Start: 04-01-2023 Covid-19 Vaccine ( season) Covid-19 Vaccine ( season) [facility] Start: 04-01-2023 Influenza vaccination Influenza Vaccine [facility] Start: 03-15-2023 [facility] Start: 11-02-2007 Screening for malignant neoplasm of cervix [facility] Start: 2005 DTaP,Tdap and Td Vaccines (1 - Tdap) DTaP,Tdap and Td Vaccines (1 - Tdap) [facility] Start: 2005 Hepatitis B Vaccine (1 of 3 - 19+ 3-dose series) Hepatitis B Vaccine (1 of 3 - 19+ 3-dose series) [facility] Start: 2005 Urine microalbumin profile DTaP,Tdap,Td Vaccine (1 - Tdap) [facility] Start: 2004 Adult BMI Follow Up Plan Adult BMI Follow Up Plan [facility] Start: 2004 Anxiety Screening Anxiety Screening [facility] Start: 2004 Depression Screening Depression Screening [facility] Start: 2004 Hepatitis C screening Hepatitis C Screening [facility] Start: 2004 HIV screening HIV Screening [facility] Start: 1998 Depression Screening Depression Screening [facility] Start: 1998 Tobacco Screening Tobacco Screening [facility] Start: 1992 Pneumococcal vaccination Pneumococcal Vaccine (1 of 2 - PCV) [facility] Hemoglobin A1c/Hemoglobin.total in Blood Hemoglobin A1c Lab Routine Diabetes mellitus screening Ordered: 09/15/2023 [facility] Comment on above: Ordered: 09/15/2023 End: 05-24-2025 HOME SLEEP APNEA TEST (HSAT) HOME SLEEP APNEA TEST (HSAT) Procedures Routine Morbid obesity due to excess calories (HCC) S/P bariatric surgery Preoperative testing Snoring Other fatigue Morbid obesity with BMI of 40.0-44.9, adult (HCC) 1 Occurrences starting 05/24/2024 until 05/24/2025 [facility] Comment on above: 1 Occurrences starting 05/24/2024 until 05/24/2025 Patient Education Hiatal hernia Diverticulosis [facility] Work Phone: Patient referral [facility] Work Phone: XR Ankle - right GE 3 Views [facility] End: 06-23-2025 XR Chest PA and Lateral XR CHEST 2V FRONTAL/LAT Radiology Routine Morbid obesity due to excess calories (HCC) S/P bariatric surgery Preoperative testing Snoring Other fatigue Morbid obesity with BMI of 40.0-44.9, adult (HCC) 1 Occurrences starting 05/24/2024 until 06/23/2025 [facility] Work Phone: Comment on above: 1 Occurrences starting 05/24/2024 until 06/23/2025 [facility] Immunizations Immunization Date Immunization Notes Care Provider Alice calhoun 06-01-2022 influenza virus vaccine, unspecified formulation Alyson Chiu [facility] 06-01-2022 influenza, seasonal, injectable BUSINESS DEAN-BC Wilber More Work Phone: [facility] Payers Date Payer Category Payer Managed Care HMO (unspecified) [employer] [id number] 2024 Private Health Insurance [id number] 2023 Self-pay 2023 () [id number] 5 2023 Unknown EAST [id number] 2023-Present [phone] [address] [place] [address] Indemnity [id number] 2023 [employer] ( and others) [id number] 2022 [employer] ( and others) [id number] 2022 [employer] ( and others) [id number] 2022 [employer] ( and others) [id number] 1986 Unknown [id number] 2.16.840.1.719488.3.579 .2.593 1986 Unknown [id number] 2.16.840.1.324542.3.579 .2.593 1986 Unknown [id number] 2.16.840.1.281132.3.579 .2.593 1986 Unknown [id number] 2.16.840.1.904199.3.579 .2.1286 1986 Unknown [id number] 2.16.840.1.031758.3.579 .2.1286 1986 Unknown [id number] 2.16.840.1.805748.3.579 .2.1286 1986 Unknown [id number] 2.16.840.1.440031.3.579 .2.1286 1986 Unknown [id number] 2.16.840.1.165822.3.579 .2.1259 1986 Unknown [id number] 2.16.840.1.182586.3.579 .2.1259 1986 Unknown [id number] 2.16.840.1.822920.3.579 .2.9 1986 Unknown [id number] 2.16.840.1.381571.3.579 .2.1259 1986 Unknown [id number] 2.16.840.1.451683.3.579 .2.1259 1986 Unknown [id number] 2.16.840.1.556877.3.579 .2.9 1986 Unknown [id number] 2.16.840.1.625733.3.579 .2.1258 1986 Unknown [id number] 2.16.840.1.253537.3.579 .2.1258 1986 Unknown [id number] 2.16.840.1.569468.3.579 .2.1258 1986 Unknown [id number] 2.16.840.1.287829.3.579 .2.1258 1986 Unknown [id number] 2.16.840.1.272704.3.579 .2.1258 1986 Unknown [id number] 2.16.840.1.500971.3.579 .2. 1986 Unknown [id number] 2.16840.1.976803.3.579 .2. 1986 Unknown [id number] 2.16840.1.495886.3.579 .2.1258 1986 Unknown [id number] 2.16.840.1.902855.3.579 .2.1258 1986 Unknown [id number] 2.16840.1.779682.3.579 .2.1258 1986 Unknown [id number] 2.16840.1.834888.3.579 .2.1258 1986 Unknown [id number] 2.16840.1.930948.3.579 .2.1258 1986 Unknown [id number] 2.16.840.1.991356.3.579 .2.1258 1986 Unknown [id number] 2.16840.1.955785.3.579 .2.1259 1959 Department of [facility] ( and others) [id number] Unknown [id number] 2.16840.1.163649.3.579 .2.531 Unknown [id number] 2.16840.1.232185.3.579 .2.531 Social History Date Type Detail Facility Start: 08-24-2023 End: 08-17-2024 Sex Assigned At [facility] Start: 01-26-2023 End: 03-13-2024 Tobacco smoking status Ex-smoker (finding) [facility] Start: 03-15-2023 Tobacco smoking status NHIS Smoker (finding) [facility] Start: 1985 Sex Assigned At Female [facility] Tobacco smoking stat us [facility] Tobacco smoking consumption unknown [facility] Start: 1985 Sex Assigned At Not on file [facility] Start: 08-24-2023 End: 04-24-2024 Tobacco smoking status PAIS Never smoked tobacco [facility] Start: 08-24-2023 End: 03-13-2024 Tobacco use and exposure Smokeless tobacco non-user [facility] Start: 08-24-2023 End: 08-17-2024 Alcohol intake Ex-drinker (finding) [facility] Start: 08-24-2023 End: 08-17-2024 History of Social function [facility] Start: 04-11-2023 [facility] How often to you hav [...] got money to buy more. Never True [facility] Start: 11-02-2023 Sexual orientation Heterosexual (finding) [facility] Start: 04-16-2024 Tobacco smoking status PAIS Smokes tobacco daily [facility] History of tobacco use Pipe Smoker [facility] Start: 04-24-2024 Tobacco use and exposure User of smokeless tobacco [facility] Start: 04-24-2024 Alcoholic beverage intake Lifetime non-drinker (finding) [facility] Start: 03-13-2024 End: 04-24-2024 Tobacco Comment Vape [facility] Start: 06-19-2024 End: 08-15-2024 Sex Female (finding) [facility] Start: 03-13-2024 Alcohol Comment Socially/rare [facility] Goals Date Patient Goal Desired Activity /State Personal health goal Functional Status Date Assessment Result Facility 03-13-2024 Functional Status N/A [facility] [place] 01-26-2023 Functional Status No [facility] Clinical Notes 01-17-2023 to 08-17-2024 REMY Feliz - 08/17/2024 10:00 AM ESTPatient InstructionsToREMY Badillo - 07/10/2024 10:00 AM ESTPatient InstructionsMonty Mendez - 07/10/2024 9:41 AM ESTPatient Instructions Note Date & Type Note Facility 08-17-2024 History of Present illness Narrative Images from the original note were not included. Subjective Patient ID: Tiffani Allison is a 38 y.o. female. Chief Complaint: Pain of the Right Ankle Last Surgery: No surgery found Last Surgery Date: No surgery found HPI Tiffani just has not improved she is still having problems with daily paresthesias and numbness as well as sharp pain in medial posterior region of the foot and ankle. Numbness is affecting her great and 2nd toes she has had MRI this past June which did so some bone bruising of the distal fibula as well as concerns for sinus tarsi syndrome. Objective Ortho Exam She is having less tenderness over the ATFL and CFL she has no significant anterior translation or tenderness with talar tilt test. She does have soreness through the posterior tibial tendon and near the insertion in the arch region. No calcaneal pain she has no soreness to the plantar aspect of the foot however she is tender in the Achilles region. There is no defect or dysfunction she does have some tightness back there. She also has intermittent paresthesia to the great and 2nd toe. Image Results: XR ankle 3+ views right Imaging Result: AP lateral and oblique of the right ankle taken in the office today demonstrating no significant collapse or osteochondral defect ankle mortise well-preserved no bony tumor or fracture seen. Assessment/Plan Encounter Diagnoses: Ankle joint instability, right Sinus tarsi syndrome of right ankle Posterior tibial tendinitis of right lower extremity Orders Placed This Encounter XR ankle 3+ views right Follow up if symptoms worsen or fail to improve. We will have you follow-up for referral with to discuss the intermittent numbness of the great and 2nd toe as well as pain in the posterior tibial tendon insertion and posterior malleolus region. He will be able to review your MRI from June and make better plan on treatment options for continued symptoms. Would continue cold pack and elevation several times a day before bedtime as well as use of anti-inflammatory medicine taking with food to avoid GI upset as well as Tylenol for breakthrough discomfort. Neoprene Bonifacio ankle wrap type support during waking hours we will be helpful. For severe pain and disability return to your cam boot. documented in this encounter [facility] 08-17-2024 Instructions REMY Feliz - 08/17/2024 10:00 AM EST We will have you follow-up for referral with to discuss the intermittent numbness of the great and 2nd toe as well as pain in the posterior tibial tendon insertion and posterior malleolus region. He will be able to review your MRI from June and make better plan on treatment options for continued symptoms. Would continue cold pack and elevation several times a day before bedtime as well as use of anti-inflammatory medicine taking with food to avoid GI upset as well as Tylenol for breakthrough discomfort. Neoprene Bonifacio ankle wrap type support during waking hours we will be helpful. For severe pain and disability return to your cam boot. documented in this encounter [facility] 08-03-2024 Note HNO ID: [id number] Author: ?, ?, ? Service: ? Author Type: ? Type: Progress Notes Filed: 08/03/2024 14:49 Note Text: Sleep Study Check-In Documentation Date: August 03, 2024 Name: Tiffani Allison Comments: HST was returned in working order with all sleep questionnaires Jim Berry [facility] 07-26-2024 Note HNO ID: [id number] Author: ?, ?, ? Service: ? Author Type: ? Type: Progress Notes Filed: 07/27/2024 15:50 Note Text: Nomad # [id number] , date shipped out 07-27-24 Fed Ex only Tracking mailout: [id number] Tracking return: [id number] [facility] 07-10-2024 History of Present illness Narrative Images from the original note were not included. Subjective Patient ID: Tiffani Allison is a 38 y.o. female. Chief Complaint: No chief complaint on file. Last Surgery: No surgery found Last Surgery Date: No surgery found HPI Tiffani comes in to go over MRI which did not show any evidence of surgical condition did have suggestions of the cause of her persistent troubles and remote injury to the lateral ankle ligament structures. She does note improvement when she is using the boot however she is starting to get some lower back and knee issues from the restrictions and elevation of the boot. Objective Ortho Exam Patient has general swelling has improved with use of the cam boot she has no associated pain with flexion extension of the great toe she is having some tenderness in the Talar sulcus, as well as ATFL Image Results: MR ankle right wo IV contrast Narrative: EXAM/TECHNIQUE: MR ANKLE RIGHT WO IV CONTRAST HISTORY: History of fall in March. Lateral and medial pain with instability. COMPARISON: Radiographs 06/11/2024. RESULT: Cartilage: Tibiotalar joint cartilage and subtalar joint cartilage appears to be preserved. Midfoot articular cartilage appears to be preserved. Ligaments: Distal tibiofibular ligaments appear grossly intact. Thickening and increased signal involving the anterior talofibular ligament, with some well-corticated fragments near the insertion, likely sequela of remote injury. Calcaneofibular ligament appears grossly intact. Posterior talofibular ligament appears intact. Deltoid ligament and spring ligament appear intact. Tendons: Achilles tendon appears intact. Extensor tendons appear intact. Medial flexor tendons appear intact with tiny accessory navicular. Peroneal tendons appear intact. Joint Fluid: Trace tibiotalar joint effusion. Trace fluid or bursitis along the dorsal aspect of the talonavicular joint. Bone Marrow: No evidence for fracture, osteochondral lesion, osteomyelitis or other marrow replacing lesion. Small amount of bone marrow edema involving the distal fibula, likely reactive versus bone contusion. Plantar Aponeurosis: Plantar aponeurosis in within normal limits. Sinus Tarsi: Some loss of the fat signal within the sinus tarsi, associated with sinus tarsi syndrome. Muscle: Muscle bulk and signal intensity is within normal limits. Tarsal Tunnel: Tarsal tunnel is within normal limits. Other: Mild subcutaneous edema. Impression: Remote appearing injury involving the anterior talofibular ligament. Small amount of reactive edema or bone contusion of the distal fibula. 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 ELECTRONICALLY SIGNED BY: Delbert Thakkar MD Assessment/Plan Encounter Diagnoses: Sinus tarsi syndrome of right ankle Moderate right ankle sprain, sequela Orders Placed This Encounter predniSONE (Deltasone) 10 MG tablet meloxicam (Mobic) 15 MG tablet Follow up if symptoms worsen or fail to improve. May transition self out of boot as tolerated try taking the prednisone and then transition into using the meloxicam. If her symptoms improve and dissipate no need for follow-up. If your symptoms improve and then return and are not helped with the meloxicam then consider doing injection here in the office with ultrasound guidance into the ankle. Cold pack 20 minutes several times a day may add Tylenol to her regimen. Consider getting a good supportive shoe with good arch support. documented in this encounter [facility] 07-10-2024 Instructions REMY Feliz - 07/10/2024 10:00 AM EST May transition self out of boot as tolerated try taking the prednisone and then transition into using the meloxicam. If her symptoms improve and dissipate no need for follow-up. If your symptoms improve and then return and are not helped with the meloxicam then consider doing injection here in the office with ultrasound guidance into the ankle. Cold pack 20 minutes several times a day may add Tylenol to her regimen. Consider getting a good supportive shoe with good arch support. documented in this encounter [facility] 07-10-2024 Note HNO ID: [id number] Author: ?, ?, ? Service: ? Author Type: ? Type: Progress Notes Filed: 07/10/2024 09:42 Note Text: Sleep Study Check-In Documentation Date: July 10, 2024 Name: Tiffani Allison Comments: HST was returned in work order. Study did not occur. The device is blank. Sent MYC Message. Monty Mendez [facility] 07-10-2024 History of Present illness Narrative Sleep Study Check-In Documentation Date: July 10, 2024 Name: Tiffani Allison Comments: HST was returned in work order. Study did not occur. The device is blank. Sent MYC Message. Monty Mendez Pt stated the device didn't work. Informed patient to send device back and we will call reschedule. Nomad # [id number] , +GPS Date shipped out: 07/02/24 SENT FEDEX DELIVERY - FEDEX RETURN Tracking mailout: [id number] Tracking return: [id number] July 02, 2024 Standing PSG Orders signed in the last 90 days None Future PSG Orders signed in the last 90 days Ordered Auth. provider HOME SLEEP APNEA TEST (HSAT) [[id number]] 05/24/24 Renetta Ruano MD Assoc. diagnoses: Morbid obesity due to excess calories (HCC) [E66.01], S/P bariatric surgery [Z98.84], Preoperative testing [Z01.818], Snoring [R06.83], Other fatigue [R53.83], Morbid obesity with BMI of 40.0-44.9, adult (HCC) [E66.01, Z68.41] Q: Indications: A: Obstructive sleep apnea Q: STOP-BANG conditions - Select All That Apply: A: BMI > 35 kg/m2 A2: SNORING that is loud or disruptive A3: TIREDNESS, fatigue or sleepiness during the day Q: Current use of supplemental oxygen during sleep period?: A: No CONSULT TO SLEEP MEDICINE - ADULT [[id number]] 05/24/24 Renetta Ruano MD Assoc. diagnoses: Morbid obesity due to excess calories ([facility]) [E66.01], S/P bariatric surgery [Z98.84], Preoperative testing [Z01.818], Snoring [R06.83], Other fatigue [R53.83], Morbid obesity with BMI of 40.0-44.9, adult ([facility]) [E66.01, Z68.41] Q: Does consulting provider have [facility] Epic access?: A: Yes All Prior Sleep Studies (past 365 days) 05/24/2024 17:36 Sleep Studies HOME SLEEP APNEA TEST (HSAT) HOME SLEEP APNEA TEST (HSAT) Order Status: Ordered, Future Expires: 05/24/25 CONSULT TO SLEEP MEDICINE - ADULT CONSULT TO SLEEP MEDICINE - ADULT Order Status: Ordered, Future Expires: 05/24/25 BMI Readings from Last 2 Encounters: 06/07/24 : 43.76 kg/m 05/24/24 : 43.62 kg/m No past medical history on file. The medical record was reviewed to determine if the proposed sleep study conforms to the AASM Practice Parameters for the Indications for Polysomnography and Related Procedures, or if the sleep study is indicated for other reasons. Indications for study: EARNEST suspected with comorbid medical or sleep disorders: Morbid obesity (BMI>40 kg/m2) Sleep study to be performed: Home Sleep Apnea Test (HSAT) Special instructions: None-follow laboratory protocol This patient may benefit from a sleep consultation. Nikole Garrett - Sleep Medicine Staff Note: I have read the above protocol, edited as needed, and agree to the plan. Dany Mancini III, PhD 1:38 PM, 07/02/2024 June 29, 2024 An order has been received for Home Sleep Apnea Test (HSAT) from Renetta Goldberg MD , a B. [facility] Staff. Visit prep complete. Comments :No The sleep study is scheduled for 07-03-24. Insurance: Payor: / Plan: [employer] / Product Type: Indemnity / Payer/Plan Subscr Sex Relation Sub. Ins. ID Effective Group Num 1. - TR* TIFFANI ALLISON 1985 Female Self [id number] 08/[birth year] [address] Margo Liao documented in this encounter [facility] 07-05-2024 Note HNO ID: [id number] Author: ?, ?, ? Service: ? Author Type: ? Type: Progress Notes Filed: 07/10/2024 09:42 Note Text: Pt stated the device didn't work. Informed patient to send device back and we will call reschedule. [facility] 07-02-2024 Note HNO ID: [id number] Author: ?, ?, ? Service: ? Author Type: ? Type: Progress Notes Filed: 07/10/2024 09:42 Note Text: Nomad # [id number] , +GPS Date shipped out: 07/02/24 SENT FEDEX DELIVERY - FEDEX RETURN Tracking mailout: [id number] Tracking return: [id number] [facility] 07-02-2024 Note HNO ID: [id number] Author: DANY MANCINI III, PhD Service: ? Author Type: Physician Type: Progress Notes Filed: 07/10/2024 09:42 Note Text: July 02, 2024 Standing PSG Orders signed in the last 90 days None Future PSG Orders signed in the last 90 days Ordered Auth. provider HOME SLEEP APNEA TEST (HSAT) [[id number]] 05/24/24 Renetta Ruano MD Assoc. diagnoses: Morbid obesity due to excess calories (HCC) [E66.01], S/P bariatric surgery [Z98.84], Preoperative testing [Z01.818], Snoring [R06.83], Other fatigue [R53.83], Morbid obesity with BMI of 40.0-44.9, adult ([facility]) [E66.01, Z68.41] Q: Indications: A: Obstructive sleep apnea Q: STOP-BANG conditions - Select All That Apply: A: BMI > 35 kg/m2 A2: SNORING that is loud or disruptive A3: TIREDNESS, fatigue or sleepiness during the day Q: Current use of supplemental oxygen during sleep period?: A: No CONSULT TO SLEEP MEDICINE - ADULT [[id number]] 05/24/24 Renetta Ruano MD Assoc. diagnoses: Morbid obesity due to excess calories ([facility]) [E66.01], S/P bariatric surgery [Z98.84], Preoperative testing [Z01.818], Snoring [R06.83], Other fatigue [R53.83], Morbid obesity with BMI of 40.0-44.9, adult ([facility]) [E66.01, Z68.41] Q: Does consulting provider have [facility] [employer] access?: A: Yes All Prior Sleep Studies (past 365 days) 05/24/2024 17:36 Sleep Studies HOME SLEEP APNEA TEST (HSAT) HOME SLEEP APNEA TEST (HSAT) Order Status: Ordered, Future Expires: 05/24/25 CONSULT TO SLEEP MEDICINE - ADULT CONSULT TO SLEEP MEDICINE - ADULT Order Status: Ordered, Future Expires: 05/24/25 BMI Readings from Last 2 Encounters: 06/07/24 : 43.76 kg/m? 05/24/24 : 43.62 kg/m? No past medical history on file. The medical record was reviewed to determine if the proposed sleep study conforms to the AASM Practice Parameters for the Indications for Polysomnography and Related Procedures, or if the sleep study is indicated for other reasons. Indications for study: EARNEST suspected with comorbid medical or sleep disorders: Morbid obesity (BMI>40 kg/m2) Sleep study to be performed: Home Sleep Apnea Test (HSAT) Special instructions: None-follow laboratory protocol This patient may benefit from a sleep consultation. Nikole Garrett - Sleep Medicine Staff Note: I have read the above protocol, edited as needed, and agree to the plan. Dany Mancini III, PhD 1:38 PM, 07/02/2024 [facility] 06-29-2024 Note HNO ID: [id number] Author: ?, ?, ? Service: ? Author Type: ? Type: Progress Notes Filed: 07/10/2024 09:42 Note Text: June 29, 2024 An order has been received for Home Sleep Apnea Test (HSAT) from Renetta Goldberg MD , a B. [facility] Staff. Visit prep complete. Comments :No The sleep study is scheduled for 07-03-24. Insurance: Payor: [employer] / Plan: [employer] / Product Type: Indemnity / Payer/Plan Subscr Sex Relation Sub. Ins. ID Effective Group Num 1. - TR* TIFFANI ALLISON 1985 Female Self [id number] 08[birth year]/23 [address] [facility] Note HNO ID: [id number] Author: SHARON HELM, PhD Service: ? Author Type: Psychologist Type: Progress Notes Filed: 06/21/2024 14:47 Note Text: [facility] METABOLIC/BARIATRIC SURGERY (MBS) BEHAVIORAL HEALTH EVALUATION Patient name: Tiffani Allison Date of service: June 21, 2024 Time of service: 1:00pm - 2:00pm Cost center: [facility] CPT code(s): 04328 Psychiatric diagnostic evaluation - 21550 Brief Emotional/Behavioral Assessment with scoring/documentation (2 units) Billing code: ENDO PSYL MAIN Volodymyr Session #: 1 Patient is being seen for an initial evaluation. All information is from patient report except when noted. This evaluation is NOT intended for forensic, disability, or child custody purposes. The patient e-signed the Informed Consent for Psychological Evaluation AND Care Form in preparation for this visit. The behavioral health care insurance benefits, fees for service, emergency procedures, and limits to confidentiality were discussed with the patient, and she was given a chance to ask questions. The patient was provided with a copy of the consent form via AVST. Prior to initiating the virtual visit, I communicated my name and active licensure. The patient's identity (name, ) and physical location were verified. Patient was encouraged to move to a private space free of distractions. Either the patient or their legal appliance service representative has been informed of the risks and benefits of -- and alternatives to -- telepsychology and consented to proceed with the evaluation remotely. Upon completion of risk/benefit analysis, the patient's presenting problem and apparent condition are considered appropriate for virtual format. The patient does appear to have sufficient knowledge and skills in the use of relevant technology to benefit from virtual format. Plan in case of unexpected disconnection: provider will attempt to contact patient at their preferred phone number ([phone]) or via email ([email or web address]). Plan in case of emergency: Go to emergency room or call 911 Closest emergency room: [facility] Extended Emergency Contact Information Primary Emergency Contact: EstefanyTin hwang Address: [address] [place] [address] Mobile Relation: Spouse Platform: Zoom for Healthcare Address of patient during visit: home ([address] [place] [address]) Collateral parties present: none IDENTIFYING INFORMATION Ms. Tiffani Allison is a 38 year old, female who was referred by Dr. Grissom. She is seeking revision (sleeve to bypass) for Class III obesity and hiatal hernia. Initial gastric sleeve surgery in July 2017 (in [place]). MOTIVATION FOR SURGERY / UNDERSTANDING OF PROCEDURE / EXPECTATIONS Ms. Allison reported the following motivations for pursuing surgery: hiatal hernia. The patient has a good understanding of the surgical procedure, risks, benefits, and required lifestyle changes. She has not talked with other people who have undergone the procedure. The patient expects to lose 100 lbs (32% TBW) following surgery over 6-18 months. Other expectations include increased quality of life and increased activity. Reviewed realistic expectations (20-30% TBW with LSG or 25-35% TBW with RYGB over ~18 months). Educated patient regarding expected timeline of weight loss/surgery recovery. CAPACITY TO CONSENT Ms. Allison evidences the following concerns regarding capacity to consent: none noted. MEDICAL PROBLEMS There is no problem list on file for this patient. MEDICATIONS Current Outpatient Medications Medication Sig acetaminophen 325 mg cap Take 650 mg by mouth every 6 hours as needed. amLODIPine (NORVASC) 10 mg tablet Take 10 mg by mouth. amLODIPine-Atorvastatin 10-10 mg per tablet aspirin, enteric coated (ASPIRIN, ENTERIC COATED) 81 mg EC tablet Take 81 mg by mouth. buPROPion XL (WELLBUTRIN XL) 150 mg 24 hr tablet Take 150 mg by mouth. busPIRone (BUSPAR) 10 mg tablet Take 10 mg by mouth. Chlorhexidine Gluconate (PERIDEX) 0.12 % solution TAKE 15 ML IN MOUTH AND SWISH FOR 30 SECONDS THEN SPIT OUT TWICE DAILY FOR 20 DAYS clindamycin (CLEOCIN) 300 mg capsule TAKE 1 CAPSULE BY MOUTH FOUR TIMES DAILY (IN THE MORNING, at noon, IN THE EVENING, and BEFORE bedtime) FOR 10 DAYS diclofenac, EC, (VOLTAREN) 75 mg EC tablet Take 1 tablet by mouth every 12 hours. escitalopram oxalate (LEXAPRO) 10 mg tablet Take 1 tablet by mouth once daily. ferrous sulfate 325 mg (65 mg iron) EC tablet Take 325 mg by mouth. fluocinonide (LIDEX) 0.05 % external solution APPLY TO THE AFFECTED AREA(S) topically DAILY hydrOXYzine pamoate (VISTARIL) 25 mg capsule Take 1 capsule by mouth two times a day as needed. ibuprofen (MOTRIN) 800 mg tablet levothyroxine (SYNTHROID) 137 mcg tablet TAKE 1 TABLET BY MOUTH IN THE MORNING BEFORE MEALS melatonin 1 m (more content not included)... [facility] 06-20-2024 History of Present illness Narrative GENERAL HISTORY AND PHYSICAL: NAME: Tiffani Allison : 1985 HISTORY OF PRESENT ILLNESS: Tiffani Allison is an 38 y.o. female is here for orthopedic evaluation subacute right ankle injury which occurred back in March when she was coming down some steps and rolled her foot inward. She did cause abrasion and contusion to the left anterior ankle which has resolved and no longer causes any discomfort. She has been having persistent swelling and pain in the right lower extremity and also includes her calf which she thought maybe was from the way she was walking. She has not been using any kind of splint or crutch or cane she did go get imaging done at [place] and has brought those images with her. She does take a baby aspirin a day she states that she does not have history of DVT but is concerned with the right lower calf swelling and pain with mobility. She denies fever chills shortness of breath or chest pain. She is a [id number] mom PAST MEDICAL HISTORY: Past Medical History: Diagnosis Date COVID-2019 Depression with anxiety GERD (gastroesophageal reflux disease) Hiatal hernia HTN (hypertension) (CMS/HCC) Hypothyroidism (acquired) (CMS/HCC) Iron deficiency anemia Kidney stones Migraines (CMS/HCC) Polycystic ovary syndrome 2010 Seizure (CMS/HCC) 2019 hx of hospitalization PAST SURGICAL HISTORY: Past Surgical History: Procedure Laterality Date ABDOMINAL SURGERY 2017 APPENDECTOMY SECTION, CLASSIC x2 SECTION, LOW TRANSVERSE 12/12/2023 CHOLECYSTECTOMY GASTRECTOMY 2017 gastric sleeve KNEE SURGERY Left TUBAL LIGATION 12/12/2023 SOCIAL HISTORY: Social History Occupational History Not on file Tobacco Use Smoking status: Former Smokeless tobacco: Never Tobacco comments: Vape Vaping Use Vaping status: Never Used Substance and Sexual Activity Alcohol use: Not Currently Comment: Socially/rare Drug use: Never Sexual activity: Yes Partners: Male control/protection: Female Sterilization ALLERGIES: Allergies Allergen Reactions Penicillins Anaphylaxis and Unknown Other Reaction(s): throat swelling and hives Penicillin G Unknown Topiramate Other Reaction(s): seizures MEDICATIONS: Current Outpatient Medications Medication Instructions acetaminophen (TYLENOL) 650 mg, Every 6 hours PRN amLODIPine (NORVASC) 10 mg, Oral, Every morning aspirin 81 mg, Daily RT buPROPion XL (Wellbutrin XL) 150 MG 24 hr tablet TAKE 1 TABLET BY MOUTH IN THE MORNING DO NOT CRUSH, CHEW, OR SPLIT escitalopram (LEXAPRO) 10 mg, Oral, Daily fluocinonide (Lidex) 0.05 % external solution APPLY TO THE AFFECTED AREA(S) topically EVERY OTHER DAY FOR 30 DAYS ibuprofen 800 MG tablet levothyroxine (Synthroid, Levoxyl) 137 MCG tablet TAKE 1 TABLET BY MOUTH IN THE MORNING BEFORE MEALS levothyroxine (Synthroid, Levoxyl) 25 MCG tablet TAKE 1 TABLET BY MOUTH IN THE MORNING BEFORE MEALS WITH the current dosage metoprolol succinate XL (TOPROL-XL) 100 mg, Oral, Daily omeprazole (PRILOSEC) 40 mg, Daily before breakfast ondansetron ODT (Zofran-ODT) 4 MG disintegrating tablet Every 24 hours REVIEW OF SYSTEMS: Review of Systems General: Denies appetite or significant weight change. Denies fever, chills or night sweats. Denies lightheadedness. ENT: Denies dry mouth, sore throat or swollen glands. Denies difficulty swallowing. Denies ear pain. Respiratory: Denies chest pain, SOB, cough or wheezing. Denies asthma or pneumonia symptoms. Cardiovascular: Denies CP or palpitations. No syncope or dyspnea on exertion. Gastrointestinal: Denies nausea or vomiting. Denies heartburn or abdominal pain. Denies diarrhea. Genitourinary: Denies frequent or painful urination. Musculoskeletal: See HPI for comments. Integumentary: Denies rash, lesion or skin infection. Neurologic: Denies dizziness, headache or seizure history. Vitals: Body mass index is 43.62 kg/m . PHYSICAL EXAM: Physical Exam Right lower extremity patient has good mobility of her knee however she does have noticeable swelling of the right calf in relation to the left. She has pain with dorsiflexion in the calf she has pain with palpation there is no excessive warmth or evidence of phlebitis superficially. She has tenderness all the way down through her Achilles with no defects noted. She has pain to the deltoid ligament as well as ATFL and more predominantly the distal portion of her syndesmosis. She does appear to have some ankle effusion with no significant erythema or evidence of infection. She has pain with talar tilt and noticed increased translation with anterior drawer testing. Patient has no associated bony tenderness from base of the metatarsals to her toes. No evidence of wounds she does have some callus to her great toe and ball of her foot. Orders Placed This Encounter Procedures Vascular US lower extremity venous duplex right Standing Status: Future Standing Expiration Date: 06/20/2025 Order Specific Question: Reason for exam: Answer: Right calf swelling and pain ASSESSMENT: Pain and swelling of right lower leg Ankle joint instability, right Pain of right calf PLAN: Would continue use of the boot full-time except for bathing purposes to help with her mobility and stabilize the ankle joint itself. We will pursue MRI for assessment of ligament injury with your poor ability to improve following this inversion ankle injury back in March. We will also assess with venous Doppler the pain in her calf as well as swelling associated with her immobility and concerns of DVT. If positive your primary care will be the provider to control any blood thinning agents necessary. Continue Tylenol and ice and elevation for pain control. At some point he will need good supportive arch shoe wear and avoid use of flat nonsupportive shoes. You also may change her ibuprofen use to a Naprosyn or Aleve as this may give you a better anti-inflammatory response due to the change in chemical structures. Do not take more than 1 type of NSAID at a time beyond the recommended dosing and always take with food. REMY Feliz documented in this encounter [facility] 06-20-2024 Instructions REMY Feliz - 06/20/2024 9:45 AM EST Would continue use of the boot full-time except for bathing purposes to help with her mobility and stabilize the ankle joint itself. We will pursue MRI for assessment of ligament injury with your poor ability to improve following this inversion ankle injury back in March. We will also assess with venous Doppler the pain in her calf as well as swelling associated with her immobility and concerns of DVT. If positive your primary care will be the provider to control any blood thinning agents necessary. Continue Tylenol and ice and elevation for pain control. At some point he will need good supportive arch shoe wear and avoid use of flat nonsupportive shoes. You also may change her ibuprofen use to a Naprosyn or Aleve as this may give you a better anti-inflammatory response due to the change in chemical structures. Do not take more than 1 type of NSAID at a time beyond the recommended dosing and always take with food. documented in this encounter [facility] 06-15-2024 Note HNO ID: [id number] Author: LIN IRENE RT(R) Service: ? Author Type: Technologist Type: Progress Notes Filed: 06/15/2024 12:23 Note Text: Radiology Service Progress Note PATIENT NAME: Tiffani Allison DATE OF SERVICE: June 15, 2024 TIME: 12:23 PM PATIENT IDENTITY VERIFICATION COMPLETED USING TWO (2) IDENTIFIERS: Name and Date of confirmed by patient verbally. FALL SCREENING: Has the patient had 2 falls in the last year or 1 fall with injury or currently using an Ambulatory Assistive Device (Walker, Cane, Wheelchair, Crutches, etc.)? No PATIENT GENDER DATA: Female. status: : No status: NO. PATIENT RELEVANT IMPLANT DATA REVIEWED: Not Applicable PATIENT PRESENTS WITH AN IMPLANTABLE OR ATTACHED COMBUSTION ENGINEER: No RADIOLOGY DEPARTMENT: General X-ray: Exam(s) Completed: Chest X-Ray PERIPHERAL IV DATA: Not applicable SIGNED BY: Lin Irene, RT(R) June 15, 2024 12:23 PM [facility] 06-14-2024 Note HNO ID: [id number] Author: SHARON HELM, PhD Service: ? Author Type: Psychologist Type: Progress Notes Filed: 06/14/2024 16:11 Note Text: [facility] Bariatric Behavioral Services Progress Note June 14, 2024 Patient did not check in for scheduled appointment. This visit will be marked as a no-show. Sharon Helm, Ph.D. Clinical Psychologist [facility] 06-07-[address] - 06/07/2024 1:53 PM EST Nutrition Intervention 06/07/2024: Modify type and amount of foods consumed for meals and snacks 1. Read Nutritional Guidelines Section of Your Guide to Surgery by next session [email or web address] [email or web address] 2. Do not skip meals. 3. Use protein shake 1x per day to replace any skipped meals or for breakfast. Aim for shakes ~150-200 calories, ~15-20 grams of protein, <5 grams of total sugar. Choose from these options that are approved for the pre-op liquid diet: Slim Fast High Protein (20 g protein), Atkins (15 g protein), Boost Glucose Control (16 g protein), Owyn (20 g protein), Galax Breakfast Essentials Light Start mixed with fat free or 1% milk 4. Practice mindful eating habits- eat protein first, take small portions, eat slowly, chew thoroughly 20-30x before swallowing, practice eating and drinking by 30 min. 5. Use the Healthy Plate Method of portion control for meals 1/4 plate (3-4 oz) lean meat, fish, chicken, pork tenderloin, turkey, seafood, eggs/cheese 1/2 plate non-starchy vegetables (salad, greens, cabbage, spinach, brussels sprouts, broccoli, carrots, celery, peppers, green beans, cauliflower) 1/4 plate (up to 1 cup) whole grain, starch/starchy vegetables (corn, peas, palacios beans, winter squash, sweet potato, rice, pasta, potato) 6. Physical activity: Aim for 150 minutes of physical activity per week. Include 10-20 minutes of strength/resistance exercise 2-3x/week. 7. Drink 64 ounces per day water. Fluids should follow these guidelines: No carbonation, no caffeine, no calories, no alcohol. 8. Continue taking daily bariatric vitamins/minerals and include 1286-4815 mg calcium citrate daily (separate 2 hours from iron, and take each 500-600 mg dose 4 hours apart) Here are a few options to consider: - Bariatric Fusion: 4 Complete Multivitamin chewables per day OR 1 Multivitamin capsule and 0655-4293 mg calcium citrate per day OR 2 Multivitamin soft chews per day + 3 calcium citrate soft chews + 1 iron soft chew per day [email or web address] - Bariatric Choice: 4 All-in-One Bariatric Multivitamin chewables per day OR 1 Once Daily Bariatric Multivitamin capsule and 6188-7515 mg calcium citrate per day [email or web address] - Bariatric Pal: 4 All-in-One Multivitamin chewables per day OR 1 Multivitamin One (chewable or capsule) and 0515-6120 mg calcium citrate per day [email or web address] [email or web address] - Bariatric Advantage: 1 Ultra Solo multivitamin w/ iron (chewable or capsule) OR 2 chewable Advanced Multi EA w/ iron and 7170-0185 mg calcium citrate per day OR 2 Multi Chewy Bites and 6331-8966 mg calcium citrate and 45-60 mg iron per day www.[email or web address] [email or web address].com - eParachute Health: 1 Bariatric Multivitamin w/ iron (capsule or chewable) and 6351-9335 mg calcium citrate per day www.[email or web address] - Celebrate: 2 Multi-Complete (chewable or capsule) OR 1 CelebrateOne Multivitamin capsule and 7077-5526 mg calcium citrate per day OR 2 Multivitamin soft chews + 3 calcium citrate soft chews + 1 iron soft chew per day [email or web address].Zet Universe - Barilife: 1 Just One Bariatric Multivitamin w/ iron (chewable or capsule) and 0546-8216 mg calcium citrate per day [email or web address] Universe - Barimelts: 2 Multivitamin w/ iron tablets and 8109-5524 mg calcium citrate per day [email or web address] Universe Pre-op goal weight: 292 pounds Protein needs: 95 gm per day Navigator: [email or web address] Please follow the below link to join our Navigation Welcome and Next Steps Meeting. Meetings are held weekly on Tuesdays from 12:00-1:00 pm. [email or web address] =[email or web address].[employer].Zet Universe Please call [phone], option 5. Leave a message for the navigation team when you are finished with all clearances (nutrition, psychology, medical, surgeon) PRE/POST-OP Instructions: 1. Start the full liquid diet (2) weeks prior to surgery using 4-5 protein shakes per day, continue a minimum of 64 oz water per day during this time. No solid food. May have sugar free popsicle and sugar free jello. Choose from these options only: 4 bottles of Slim Fast High Protein shakes per day 5 cartons of Atkins 15 g shakes per day 4 bottles of Boost Glucose Control shakes per day 5 packets of Galax Breakfast Essentials Light Start mixed with fat free milk 4 bottles/cartons of Owyn 20 g protein shakes per day 2. During the 2 weeks before and after surgery, include a daily Super B-Complex vitamin with 75-100 mg Thiamine 3. Advance diet per guidebook post surgery (refer to page 49) 4. Resume taking daily vitamins/minerals after starting soft protein foods ~3 weeks after surgery. Nutrition Monitoring & Evaluation: 1-2 lbs wt loss/week Need for Follow up: 2 weeks pre op documented in this encounter [facility] 06-07-2024 History of Present illness Narrative [facility] Nutrition Therapy: Virtual Consult - Initial Assessment I have communicated my name and active licensure. The patient s identity and physical location were verified at the time of this visit. Either the patient or their legal appliance service representative has been informed of the risks and benefits of -- and alternatives to -- treatment through a remote evaluation and consents to proceed with the evaluation remotely. Nutrition Diagnosis: Altered Gastrointestinal Tract Function, related to, S/P bariatric surgery, as evidenced by surgical history and Overweight/obesity, related to, food/nutrition - related knowledge deficit, as evidenced by BMI above normative standard for age and gender. RECOMMENDED MALNUTRITION DIAGNOSIS: NO MALNUTRITION IDENTIFIED NUTRITION CARE PLAN Nutrition Intervention 06/07/2024: Modify type and amount of foods consumed for meals and snacks 1. Read Nutritional Guidelines Section of Your Guide to Surgery by next session [email or web address] /[email or web address]? la=en 2. Do not skip meals. 3. Use protein shake 1x per day to replace any skipped meals or for breakfast. Aim for shakes ~150-200 calories, ~15-20 grams of protein, <5 grams of total sugar. Choose from these options that are approved for the pre-op liquid diet: Slim Fast High Protein (20 g protein), Atkins (15 g protein), Boost Glucose Control (16 g protein), Owyn (20 g protein), Galax Breakfast Essentials Light Start mixed with fat free or 1% milk 4. Practice mindful eating habits- eat protein first, take small portions, eat slowly, chew thoroughly 20-30x before swallowing, practice eating and drinking by 30 min. 5. Use the Healthy Plate Method of portion control for meals 1/4 plate (3-4 oz) lean meat, fish, chicken, pork tenderloin, turkey, seafood, eggs/cheese 1/2 plate non-starchy vegetables (salad, greens, cabbage, spinach, brussels sprouts, broccoli, carrots, celery, peppers, green beans, cauliflower) 1/4 plate (up to 1 cup) whole grain, starch/starchy vegetables (corn, peas, palacios beans, winter squash, sweet potato, rice, pasta, potato) 6. Physical activity: Aim for 150 minutes of physical activity per week. Include 10-20 minutes of strength/resistance exercise 2-3x/week. 7. Drink 64 ounces per day water. Fluids should follow these guidelines: No carbonation, no caffeine, no calories, no alcohol. 8. Continue taking daily bariatric vitamins/minerals and include 4950-5041 mg calcium citrate daily (separate 2 hours from iron, and take each 500-600 mg dose 4 hours apart) Here are a few options to consider: - Bariatric Fusion: 4 Complete Multivitamin chewables per day OR 1 Multivitamin capsule and 6541-5011 mg calcium citrate per day OR 2 Multivitamin soft chews per day + 3 calcium citrate soft chews + 1 iron soft chew per day www.[email or web address].com - Bariatric Choice: 4 All-in-One Bariatric Multivitamin chewables per day OR 1 Once Daily Bariatric Multivitamin capsule and 8201-5829 mg calcium citrate per day www.bariatricchoice.Zet Universe - Bariatric Pal: 4 All-in-One Multivitamin chewables per day OR 1 Multivitamin One (chewable or capsule) and 5040-7160 mg calcium citrate per day www.5Rocksbariatricpal.Zet Universe/colle ctions/bariatric-vitamins - Bariatric Advantage: 1 Ultra Solo multivitamin w/ iron (chewable or capsule) OR 2 chewable Advanced Multi EA w/ iron and 0793-5491 mg calcium citrate per day OR 2 Multi Chewy Bites and 9394-6391 mg calcium citrate and 45-60 mg iron per day www.bariatricadvantage.Zet Universe - Procare Health: 1 Bariatric Multivitamin w/ iron (capsule or chewable) and 2284-8063 mg calcium citrate per day www.[email or web address].Zet Universe - Celebrate: 2 Multi-Complete (chewable or capsule) OR 1 CelebrateOne Multivitamin capsule and 6889-2194 mg calcium citrate per day OR 2 Multivitamin soft chews + 3 calcium citrate soft chews + 1 iron soft chew per day [email or web address] - Barilife: 1 Just One Bariatric Multivitamin w/ iron (chewable or capsule) and 8836-7515 mg calcium citrate per day www.bariParrut.com - Barimelts: 2 Multivitamin w/ iron tablets and 2087-8699 mg calcium citrate per day www.[email or web address].com Pre-op goal weight: 292 pounds Protein needs: 95 gm per day Navigator: Clover Terrazas, [email or web address] Please follow the below link to join our Navigation Welcome and Next Steps Meeting. Meetings are held weekly on Tuesdays from 12:00-1:00 pm. [email or web address]/ [email or web address]?domain =[email or web address] Please call [phone], option 5. Leave a message for the navigation team when you are finished with all clearances (nutrition, psychology, medical, surgeon) PRE/POST-OP Instructions: 1. Start the full liquid diet (2) weeks prior to surgery using 4-5 protein shakes per day, continue a minimum of 64 oz water per day during this time. No solid food. May have sugar free popsicle and sugar free jello. Choose from these options only: 4 bottles of Slim Fast High Protein shakes per day 5 cartons of Atkins 15 g shakes per day 4 bottles of Boost Glucose Control shakes per day 5 packets of Galax Breakfast Essentials Light Start mixed with fat free milk 4 bottles/cartons of Owyn 20 g protein shakes per day 2. During the 2 weeks before and after surgery, include a daily Super B-Complex vitamin with 75-100 mg Thiamine 3. Advance diet per guidebook post surgery (refer to page 49) 4. Resume taking daily vitamins/minerals after starting soft protein foods ~3 weeks after surgery. Nutrition Monitoring & Evaluation: 1-2 lbs wt loss/week Need for Follow up: 2 weeks pre op Patient presents for initial MNT in preparation for bariatric surgery. Patient is interested in revision LSG to RYGB and hernia repair with Dr. Grissom. Significant medical comorbidities include HTN, LARISSA, hypothyroid, GERD, h/o sleeve gastrectomy.?? Patient has no weight goal following surgery - motivated to get hernia repair and feel better. Current weight: Last Wt 01/19/24 : 119.3 kg (263 lb) There is no height or weight on file to calculate BMI., Class III obesity? Max weight: 364 lbs (year 2015, pre surgery); Min weight: 184 lbs (year 2019, after surgery Jose)? 10-yr weight history: post weight retention (2 pregnancies), gradual gain since? Previous weight loss attempts: Commercial programs (ex: JACEY, Rocio Lagunas, CHANTE), Self-directed diets, Physician-assisted diets, and bariatric surgery ? Diagnosed Eating Disorders: Unknown Behavioral Eating Tendencies: None Patient s perception on causes of weight gain: post weight retention, depression, weight promoting medications?, genetics, consumption of unhealthy foods Motivation: high; Patient has Good understanding of weight loss surgery and nutritional implications following surgery.? ? Diet recall indicates consistent eating pattern with no missed meals and routine use of protein shake to replace breakfast. Meals are generally protein dense, but not always balanced with vegetable and starch portions. Snack choices vary from healthy to high calorie high sugar. Fluid intake is adequate with sufficient water but not following recommendations with caffeine and occasional SSB. She is taking appropriate bariatric vitamins but lacks calcium citrate. Physically active with two young toddlers however lacks structured exercise - limited by large hernia. ? [place] body weight: 174 lbs Excess body weight: 131 lbs. (based on initial 305 lbs today)? Goal weight pre-op: 292 lbs.? Protein needs estimated: 95 gm (1.2 g protein/kg IBW)? ? Patient meets the National Institutes of Health guidelines for weight loss surgery and has Insurance therefore is required to complete 0 months of Nutrition Intervention for clearance for surgery. Today is visit 1 of 0. Visits: Nadia 06/07/24? After session today, patient able to verbalize protein/fluid/exercise goals, recommendations for vitamin/minerals, use of protein shakes for meal replacement and for 2 week full liquid diet phase. Also able to demonstrate post op diet advancement/portion control using food models. Anticipate post op compliance. The patient meets NIH guidelines for weight loss surgery and has been thoroughly evaluated and educated on good dietary practices. Patient is capable of following these guidelines pre-and post-surgically. From nutrition standpoint, the patient is cleared for weight loss surgery. If the patient desires, she may continue to follow-up with the dietitian on a monthly basis until all surgical requirements are met. Patient's symptoms are: Weight Concerns: weight gain Diet History: Breakfast - Premier Protein (coffee flavor) Snack - occasional toast or almond bar Lunch - ham or turkey deli meat or sandwich, or edamame Snack - olives or almonds, occasional chips Dinner - chicken breast, pork chop or burger w/ vegetable Snack - occasional cookies or ice cream Beverages - water 120 oz, coffee w/ creamer, occasional juice Alcohol- rare Vitamins/Supplements - Bariatric advantage MVI w/ iron 2/day, blood builder, Vit D Activity: Activities of Daily Living: Active 50% of the day. 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 Resting Metabolic Rate: 2145 Malnutrition Screening Significant unintentional weight loss? No Eating less than 75% of usual intake for more than 2 weeks? No Potential Signs of Inflammation: no identifiable sources Education Materials Provided: BMI Nutrition Guidelines:Guide to Surgery and Required Vitamin Minerals after Weight Loss Surgery and Healthy Lunch/Dinner Plate and Snack Ideas READINESS TO LEARN Cognitive ability: Alert and oriented Motivation to learn: Interested Family support: Unable to assess - Family not present Instruction provided to: Patient Patient learns best by: Multiple Methods Factors affecting learning: None Physical limitations affecting learning: None Referred by: Praveena EVERETT Billing Type: Initial Assess/15 min 2 units SIGNATURE: Lala Zuniga RD PATIENT NAME: Tiffani Allison DATE: June 07, 2024 TIME: 4:01 PM documented in this encounter [facility] 06-07-2024 Note HNO ID: [id number] Author: LALA ZUNIGA RD Service: ? Author Type: Registered Dietitian Type: Progress Notes Filed: 06/07/2024 13:53 Note Text: [facility] Nutrition Therapy: Virtual Consult - Initial Assessment I have communicated my name and active licensure. The patient?s identity and physical location were verified at the time of this visit. Either the patient or their legal appliance service representative has been informed of the risks and benefits of -- and alternatives to -- treatment through a remote evaluation and consents to proceed with the evaluation remotely. Nutrition Diagnosis: Altered Gastrointestinal Tract Function, related to, S/P bariatric surgery, as evidenced by surgical history and Overweight/obesity, related to, food/nutrition - related knowledge deficit, as evidenced by BMI above normative standard for age and gender. RECOMMENDED MALNUTRITION DIAGNOSIS: NO MALNUTRITION IDENTIFIED NUTRITION CARE PLAN Nutrition Intervention 06/07/2024: Modify type and amount of foods consumed for meals and snacks 1. Read Nutritional Guidelines Section of Your Guide to Surgery by next sessionhttps://my.[facility].org/-/scassets/files/org/gabbie [email or web address]/[email or web address]/bmig [email or web address]?la=en 2. Do not skip meals. 3. Use protein shake 1x per day to replace any skipped meals or for breakfast. Aim for shakes ~150-200 calories, ~15-20 grams of protein, <5 grams of total sugar. Choose from these options that are approved for the pre-op liquid diet: Slim Fast High Protein (20 g protein), Atkins (15 g protein), Boost Glucose Control (16 g protein), Owyn (20 g protein), Galax Breakfast Essentials Light Start mixed with fat free or 1% milk 4. Practice mindful eating habits- eat protein first, take small portions, eat slowly, chew thoroughly 20-30x before swallowing, practice eating and drinking by 30 min. 5. Use the Healthy Plate Method of portion control for meals 1/4 plate (3-4 oz) lean meat, fish, chicken, pork tenderloin, turkey, seafood, eggs/cheese 1/2 plate non-starchy vegetables (salad, greens, cabbage, spinach, brussels sprouts, broccoli, carrots, celery, peppers, green beans, cauliflower) 1/4 plate (up to 1 cup) whole grain, starch/starchy vegetables (corn, peas, palacios beans, winter squash, sweet potato, rice, pasta, potato) 6. Physical activity: Aim for 150 minutes of physical activity per week. Include 10-20 minutes of strength/resistance exercise 2-3x/week. 7. Drink 64 ounces per day water. Fluids should follow these guidelines: No carbonation, no caffeine, no calories, no alcohol. 8. Continue taking daily bariatric vitamins/minerals and include 0498-3178 mg calcium citrate daily (separate 2 hours from iron, and take each 500-600 mg dose 4 hours apart) Here are a few options to consider: - Bariatric Fusion: 4 Complete Multivitamin chewables per day OR 1 Multivitamin capsule and 0730-1967 mg calcium citrate per day OR 2 Multivitamin soft chews per day + 3 calcium citrate soft chews + 1 iron soft chew per day www.bariatricfusion.com - Bariatric Choice: 4 All-in-One Bariatric Multivitamin chewables per day OR 1 Once Daily Bariatric Multivitamin capsule and 7167-1349 mg calcium citrate per day www.bariatricchoice.Zet Universe - Bariatric Pal: 4 All-in-One Multivitamin chewables per day OR 1 Multivitamin One (chewable or capsule) and 3143-9658 mg calcium citrate per day www.5RocksbariatricpalCardize/colle ctions/bariatric-vitamins - Bariatric Advantage: 1 Ultra Solo multivitamin w/ iron (chewable or capsule) OR 2 chewable Advanced Multi EA w/ iron and 9194-1032 mg calcium citrate per day OR 2 Multi Chewy Bites and 3837-5189 mg calcium citrate and 45-60 mg iron per day www.bariatricadvantage.com - Procare Health: 1 Bariatric Multivitamin w/ iron (capsule or chewable) and 5246-6192 mg calcium citrate per day www.Specle.Zet Universe - Celebrate: 2 Multi-Complete (chewable or capsule) OR 1 CelebrateOne Multivitamin capsule and 8496-8426 mg calcium citrate per day OR 2 Multivitamin soft chews + 3 calcium citrate soft chews + 1 iron soft chew per day [email or web address]://[email or web address] Universe - Barilife: 1 Just One Bariatric Multivitamin w/ iron (chewable or capsule) and 1310-5648 mg calcium citrate per day www.barilife.Zet Universe - Barimelts: 2 Multivitamin w/ iron tablets and 9565-8479 mg calcium citrate per day www.barimelts.Zet Universe Pre-op goal weight: 292 pounds Protein needs: 95 gm per day Navigator: aubrie Please follow the below link to join our Navigation Welcome and Next Steps Meeting. Meetings are held weekly on Tuesdays from 12:00-1:00 pm. [email or web address] !/ [email or web address]?domain =[email or web address] m Please call [phone], option 5. Leave a message for the navigation team when you are finished with all clearances (nutrition, psychology, medical, surgeon) PRE/POST-OP Instructions: 1. Start the full (more content not included)... [facility] 05-24-2024 Instructions Renetta Ruano MD - 05/24/2024 2:27 PM EDT INSTRUCTIONS: 1) Please contact me (Dr. Ruano) if you have not heard about your test results within a few days after you had them done. Thank you: Contact information: [facility] [place] M[facility]/Attention: Dr. Ruano [address] [place] [address] 2) Please check with your insurance company regarding cost/coverage of any tests ordered prior to having them completed. Jacquelin Allison , Thank you for completing your visit today and we welcome you to the surgical program. We are sure that you will still have some additional questions and encourage you to reach out to your care provider via [facility] OR your Patient Navigator. The contact information for each Navigator is listed below: Bipin Muñoz and Talia: Courtney Bipin Hatch Cha, and Hong: Kassandra Bhupendra Santos, Wilmer, and Pedro: Clover Bipin Alcocer, Tyrell, and Javier: Angelica Additionally, you may find many of the answers to your questions in our Guide To Surgery book. This book includes step by step instructions for completing your surgical path and resources for the surgical procedures, medical information, and nutrition/diet information. We would like you to review this book as your providers will refer to information contained in it. For now, please follow the link below to read online version of the book, but next time you have a FACE to FACE visit with one of your providers, please feel free to ask for a hard copy. https://my.[facility].org/- /scassets/files/org/bariatric/gu ides/[email or web address]? la=en Once you complete all of the requirements (testing, consultations, diet, etc) from each provider, please call [phone] and select option #5 to initiate insurance approval. Also, if you have any questions along the way, we encourage you to join our weekly Navigation webinar every Tuesday from 12:00 pm - 1:00 pm. This webinar will give you an opportunity to chat with your patient navigator and learn about your specific program requirements. The link for this webinar is below: [email or web address] [email or web address] [email or web address] Please note scheduling information It is important to keep track of your scheduled appointments to ensure successful completion of our surgical program. Any missed appointments can further delay your pre-surgical work-up. [facility] does offer an opt-in option for getting text message appointment reminders. Please follow the link below if you would like to opt into this service. [email or web address]/p [email or web address]/information/appointment- checklist#[email or web address]- tab As part of your surgical work up, SOME or ALL of the following tests may have been ordered. It will be your responsibility to schedule and complete these tests in order to proceed with your bariatric surgery. Please review the following instructions on how to get your testing scheduled. -EKG, Chest X-ray, Ultrasound- An appointment is needed for each of these tests. You may call your local [facility] to get an appointment. - Lab work- No appointment is needed for this, you may complete at any [facility]. These are usually fasting labs, please be sure to fast (only water permitted) for 10-12 hours prior to the test. -Sleep Study- Please call [phone] or [phone] to get this appointment set up. -Sleep Medicine Consult- (Only needed if sleep study confirms sleep apnea) Please call [phone] or [phone] to schedule an appointment. Any testing that is completed outside of [facility] will need faxed to [phone]. We look forward to working with you on this journey, Renetta Ruano MD documented in this encounter [facility] 05-24-2024 History of Present illness Narrative I have communicated my name and active licensure. The patient's identity and physical location were verified at the time of this visit. Either the patient or their legal appliance service representative has been informed of the risks and benefits of -- and alternatives to -- treatment through a remote evaluation and consents to proceed with the evaluation remotely. CC/HPI: 38 year old lady presents for medical evaluation prior to anticipated medical/surgical treatment of obesity. The patient is interested in surgical weight loss revision surgery with Dr. Grissom. Goal/motivation for weight loss? Improve health/QOL and prior to hernia repair. -05/14/24 OV BMI/Praveena Weight gain history: Age of onset: since childhood, had sleeve surgery and lost 150 lbs, then had 2 kids and regained the weight Inciting/contributing factors to weight gain: pregnancies, and Zoloft What gets in the way of your weight loss? Minimum weight: 184 lbs (after the sleeve surgery) Maximum weight: 364 lbs What is your weight loss goal? Previous weight loss attempts: did try Atkins years ago; hasn't done WW; hasn't done keto and did the required diet before the sleeve surgery, exercise; wanted to put her on Ozempic, but insurance wouldn't cover it; also given a prescription for Phentermine but hasn't started taking it (her Ob-gyne) Medications (prescription or non-prescription) for weight loss? What has worked the best so far for you in the past? History of Eating disorders? (bulimia, anorexia, binge eating?) Family history of obesity? Diet: -B: bkft sandwich, protein shake coffee -L: 2 pieces of pepperjack stick cheese, beef stick -D: pizza -snacks: -beverages: advised to avoid skipping meals and to try healthy protein shake as a meal replacement; also advised to avoid carbonated/sugary/caloric/alcoho lic beverages Exercise: she is a mom of a 2 y/o, 5 y/o; and older child; advised to consider strength training as tolerated a couple of times per week if ok with surgical team, would like to do CrossFit Functional Capacity: -Walk 4 blocks on level ground without symptoms? -Climb 2 flights of stairs without symptoms? Can walk up a flight -heavy housework without symptoms? Previous stress testing/cardiac testing and why? -she had an EKG done to establish with her Cardiology doctor and also got a Holter monitor (this was just a couple of weeks ago) Sleep apnea screen: *S-snore? yes *T-feel tired, fatigued, daytime sleepiness? Yes O-observed patient stop breathing during sleep? ? *P-does patient have, or being treated for high blood pressure? yes *B-is BMI >35? yes A-Age >50 no N-Neck circumference >15.75 inches? ? G-Male gender? 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 -tobacco use: non-smoker ALL: See [facility] LABS: IMAGING: PROC: CARDIAC: MEDS: See [facility] PMH: -htn-Norvasc, Metoprolol -on Aspirin during for her blood pressure-takes it every other day -depression/anxiety-Wellbutrin (going to increase to 300 mg), no longer taking Buspar, wearing off Lexapro; no longer Zoloft, no longer taking Vistaril prn -on Voltaren (Diclofenac), no longer taking Percocet -anemia/iron deficiency-on iron -Hypothyroid on Synthroid 137 and 25 mcg -GERD-Prilosec For women: control method: tubal ligation PSHX: acetaminophen 325 mg cap Take 650 mg by mouth every 6 hours as needed. amLODIPine (NORVASC) 10 mg tablet Take 10 mg by mouth. amLODIPine-Atorvastatin 10-10 mg per tablet aspirin, enteric coated (ASPIRIN, ENTERIC COATED) 81 mg EC tablet Take 81 mg by mouth. buPROPion XL (WELLBUTRIN XL) 150 mg 24 hr tablet Take 150 mg by mouth. busPIRone (BUSPAR) 10 mg tablet Take 10 mg by mouth. Chlorhexidine Gluconate (PERIDEX) 0.12 % solution TAKE 15 ML IN MOUTH & SWISH FOR 30 SECONDS THEN SPIT OUT TWICE DAILY FOR 20 DAYS clindamycin (CLEOCIN) 300 mg capsule TAKE 1 CAPSULE BY MOUTH FOUR TIMES DAILY (IN THE MORNING, at noon, IN THE EVENING, and BEFORE bedtime) FOR 10 DAYS diclofenac, EC, (VOLTAREN) 75 mg EC tablet Take 1 tablet by mouth every 12 hours. escitalopram oxalate (LEXAPRO) 10 mg tablet Take 1 tablet by mouth once daily. ferrous sulfate 325 mg (65 mg iron) EC tablet Take 325 mg by mouth. fluocinonide (LIDEX) 0.05 % external solution APPLY TO THE AFFECTED AREA(S) topically DAILY hydrOXYzine pamoate (VISTARIL) 25 mg capsule Take 1 capsule by mouth two times a day as needed. ibuprofen (MOTRIN) 800 mg tablet levothyroxine (SYNTHROID) 137 mcg tablet TAKE 1 TABLET BY MOUTH IN THE MORNING BEFORE MEALS melatonin 1 mg chew Take by mouth. metoprolol succinate ER (TOPROL XL) 100 mg Take 100 mg by mouth. omeprazole (PRILOSEC) 40 mg capsule Take 40 mg by mouth. ondansetron orally disintegrating (ZOFRAN ODT) 4 mg disintegrating tablet 1 (one) time each day at the same time oxyCODONE-acetaminophen (PERCOCET) 5-325 mg tablet Take 1 tablet by mouth q 6 HR. sertraline (ZOLOFT) 100 mg tablet Take 100 mg by mouth. vit B-comp w-Fe,Ca,FA<1mg (IRON-VITAMINS ORAL) No past medical history on file. No past surgical history on file. Review of patient's allergies indicates: Bonifacio Inhibitors Cough Sulfa (Sulfonamide * Unknown Ultram (Tramadol Hc* Hives PHYSICAL EXAMINATION: Wt (!) 137.9 kg (304 lb) LMP 04/07/2024 BMI 43.62 kg/m General: alert and appropriate, in no distress, well-hydrated, well nourished, happy, smiling, interactive, and pleasant lady Skin: no rash noted Head: normocephalic, no abnormality or lesion noted Eyes: no injection and visual acuity is grossly normal Respiratory: breathing non-labored REVIEW OF SYSTEMS General: As per HPI; no recent fevers/chills/fatigue, or recent hospitalizations. Weight and appetite stable. No recent travel, medication or diet changes. Overall health generally stable. *had a baby, and had anemia issues and did an iron infusion and feeling better HEENT: No history of, or new or out-of-the ordinary, vision, hearing or other ENT problems *no hearing or vision problems CV: No history of CAD, CVA or other cardiovascular disease or conditions. No new or out of the ordinary chest pain/palpitations/ELADIO/orthopnea/ PND/claudication/other cardiac, valvular or vascular issues *no h/o PA, CHF, +htn and inappropriate sinus tachycardia (this was even before both pregnancies-this why she is on Metoprolol) Respiratory: Denies any known h/o lung disease, disorders or conditions. No new or out of the ordinary SOB/cough/other respiratory disease *no asthma/cough /sob GI: Denies any known h/o stomach, liver, pancreas, intestinal or colonic disease, Disorders or conditions. No odyno/dysphagia/abdominal pain/N/V/diarrhea/constipation/b loody stools or other GI issues *no liver/colon or intestine d/o : B)women: LMP?//rash/discharge/pe lvic pain/menstrual problems C) either: No known h/o any chronic kidney; urinary or bladder disease, disorders or conditions; Denies any renal stones/dysuria/hematuria/urgency /polyuria/other issues/concerns *no h/o CKD or bladder issues; did have kidney stones last year Heme/onc: No known h/o any bleeding or clotting disorder, PE/DVT/anemia, or other blood disorder or condition No h/o cancer/bleeding or clotting problems/unusual bruising or other hematologic/oncologic issues *no h/o cancer/PE/DVT +anemia-resolved after iron infusion Neuro: No new or unusual WELCH/weakness/dizziness. No paresthesias/temperature sensation changes or disturbances/weakness/h/o CVA or seizures or other neurologic problems *no h/o CVA/sz or other neuro issue Endo: No known thryoid or DM or other endocrine or metabolic disease, disorders or conditions *no h/o DM, +Hypopthyroid; no other endo issues Musk/Rheum: Denies any h/o disabling or chronic back or other pain; no h/o gout, SLE, RA or other types of arthritis. No new/unusual arthralgias, bone, muscle or joint problems, h/o autoimmune disease, gout or arthritis Autoimmune/Allergy: Skin: No rashes/pruritis/color changes. No other skin problems or issues. Psych: No h/o anxiety/depression or other psychiatric problems Other providers: -PCP -CArdiology -ob-gyne -Hematology ASSESSMENT: Reviewed principles of energy metabolism, caloric intake and expenditure, and rationale for treatment program. Also reinforced need for reduced calorie, low fat diet and increased physical Activity. 1)Morbid obesity: May be considered at acceptable risk to proceed with bariatric surgery if the following conditions met: baseline ECG normal, or stable/unchanged compared to previous examinations. No further noninvasive cardiac testing needed IF the patient has no intermediate clinical risk factors, (IDDM, renal failure, CHF, CAD, and CVA) and has a normal or adequate functional capacity, and depending on the results of tests, consults (and prior records/test results if requested) -check presurgical labs, CXR, EKG; had recent CT abd 03/24; she just had an EKG done 2 weeks ago and had labs done 2 weeks ago (had iron test and some others). Asked patient to send us results of her recent labs as well as EKG, and will then order remaining bloodwork. 2)Sleep disordered breathing: -check sleep study and refer to Sleep medicine Renetta Ruano MD I spent a total of 45 minutes on the date of the service which included preparing to see the patient, [id number] patient care, completing clinical documentation, obtaining and/or reviewing separately obtained history, counseling and educating the patient/family/caregiver, ordering medications, tests, or procedures, and care coordination (not separately reported). documented in this encounter [facility] 05-24-2024 Note HNO ID: [id number] Author: RENETTA RUANO MD Service: ? Author Type: Physician Type: Progress Notes Filed: 08/17/2024 14:55 Note Text: I have communicated my name and active licensure. The patient's identity and physical location were verified at the time of this visit. Either the patient or their legal appliance service representative has been informed of the risks and benefits of -- and alternatives to -- treatment through a remote evaluation and consents to proceed with the evaluation remotely. CC/HPI: 38 year old lady presents for medical evaluation prior to anticipated medical/surgical treatment of obesity. The patient is interested in surgical weight loss revision surgery with Dr. Grissom. Goal/motivation for weight loss? Improve health/QOL and prior to hernia repair. -05/14/24 OV BMI/Praveena Weight gain history: Age of onset: since childhood, had sleeve surgery and lost 150 lbs, then had 2 kids and regained the weight Inciting/contributing factors to weight gain: pregnancies, and Zoloft What gets in the way of your weight loss? Minimum weight: 184 lbs (after the sleeve surgery) Maximum weight: 364 lbs What is your weight loss goal? Previous weight loss attempts: did try Atkins years ago; hasn't done WW; hasn't done keto and did the required diet before the sleeve surgery, exercise; wanted to put her on Ozempic, but insurance wouldn't cover it; also given a prescription for Phentermine but hasn't started taking it (her Ob-gyne) Medications (prescription or non-prescription) for weight loss? What has worked the best so far for you in the past? History of Eating disorders? (bulimia, anorexia, binge eating?) Family history of obesity? Diet: -B: bkft sandwich, protein shake coffee -L: 2 pieces of pepperjack stick cheese, beef stick -D: pizza -snacks: -beverages: advised to avoid skipping meals and to try healthy protein shake as a meal replacement; also advised to avoid carbonated/sugary/caloric/alcoho lic beverages Exercise: she is a mom of a 2 y/o, 5 y/o; and older child; advised to consider strength training as tolerated a couple of times per week if ok with surgical team, would like to do CrossFit Functional Capacity: -Walk 4 blocks on level ground without symptoms? -Climb 2 flights of stairs without symptoms? Can walk up a flight -heavy housework without symptoms? Previous stress testing/cardiac testing and why? -she had an EKG done to establish with her Cardiology doctor and also got a Holter monitor (this was just a couple of weeks ago) Sleep apnea screen: *S-snore? yes *T-feel tired, fatigued, daytime sleepiness? Yes O-observed patient stop breathing during sleep? ? *P-does patient have, or being treated for high blood pressure? yes *B-is BMI >35? yes A-Age >50 no N-Neck circumference >15.75 inches? ? G-Male gender? 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 -tobacco use: non-smoker ALL: See [facility] LABS: IMAGING: PROC: CARDIAC: MEDS: See Epic PMH: -htn-Norvasc, Metoprolol -on Aspirin during for her blood pressure-takes it every other day -depression/anxiety-Wellbutrin (going to increase to 300 mg), no longer taking Buspar, wearing off Lexapro; no longer Zoloft, no longer taking Vistaril prn -on Voltaren (Diclofenac), no longer taking Percocet -anemia/iron deficiency-on iron -Hypothyroid on Synthroid 137 and 25 mcg -GERD-Prilosec For women: control method: tubal ligation PSHX: acetaminophen 325 mg cap Take 650 mg by mouth every 6 hours as needed. amLODIPine (NORVASC) 10 mg tablet Take 10 mg by mouth. amLODIPine-Atorvastatin 10-10 mg per tablet aspirin, enteric coated (ASPIRIN, ENTERIC COATED) 81 mg EC tablet Take 81 mg by mouth. buPROPion XL (WELLBUTRIN XL) 150 mg 24 hr tablet Take 150 mg by mouth. busPIRone (BUSPAR) 10 mg tablet Take 10 mg by mouth. Chlorhexidine Gluconate (PERIDEX) 0.12 % solution TAKE 15 ML IN MOUTH AND SWISH FOR 30 SECONDS THEN SPIT OUT TWICE DAILY FOR 20 DAYS clindamycin (CLEOCIN) 300 mg capsule TAKE 1 CAPSULE BY MOUTH FOUR TIMES DAILY (IN THE MORNING, at noon, IN THE EVENING, and BEFORE bedtime) FOR 10 DAYS diclofenac, EC, (VOLTAREN) 75 mg EC tablet Take 1 tablet by mouth every 12 hours. escitalopram oxalate (LEXAPRO) 10 mg tablet Take 1 tablet by mouth once daily. ferrous sulfate 325 mg (65 mg iron) EC tablet Take 325 mg by mouth. fluocinonide (LIDEX) 0.05 % external solution APPLY TO THE AFFECTED AREA(S) topically DAILY hydrOXYzine pamoate (VISTARIL) 25 mg capsule Take 1 capsule by mouth two times a day as needed. ibuprofen (MOTRIN) 800 mg tablet levothyroxine (SYNTHROID) 137 mcg tablet TAKE 1 TABLET BY MOUTH IN THE MORNING BEFORE MEALS melatonin 1 mg chew Take by mouth. metoprolol succinate ER (TOPROL XL) 100 mg Take 100 mg by mouth. omeprazole (PRILOSEC) 40 mg capsule Take 40 mg by mouth. ondansetron orally disintegrating (ZOFRAN ODT) (more content not included)... [facility] 05-24-2024 Evaluation note Diagnosis Onset Date Resolution Anxiety acute May 24, 2024 9:57am Depression acute May 24, 2024 9:57am Right ankle injury acute Oct2023 9:57am Right ankle pain acute May 24, 2024 9:57am Anxiety acute June 19, 2024 10:02am Depression acute June 19, 2024 10:02am Anxiety acute August 15, 2024 10:51am Depression acute August 15, 2024 10:51am Obesity, Class III, BMI 40-49.9 (morbid obesity) acute August 15 10:51am [facility] Work Phone: [phone] 188-832510-17-2024 Telephone encounter Note* Telephone Encounter - Kristi Watts RN - 05/17/2024 10:14 AM EDT BMI SPECIALTY CARE COORDINATION TELEPHONE ENCOUNTER LVM with call back number to tell pt next steps about enrolling in our program. [facility]10-17-2024 Miscellaneous Notes* Telephone Encounter - Kristi Watts RN - 05/17/2024 10:14 AM EDT BMI SPECIALTY CARE COORDINATION TELEPHONE ENCOUNTER LVM with call back number to tell pt next steps about enrolling in our program. [facility] NoteHNO ID: [id number] Author: RAINE GRISSOM MD Service: ? Author Type: Physician Type: Progress Notes Filed: 05/14/2024 15:05 Note Text: BARIATRIC SURGERY PROGRESS VISIT NOTE SERVICE DATE: 05/14/2024 This visit was performed virtually using Zoom technology due to the COVID-19 epidemic as an effort to protect patients and minimize exposure. Patient gave me the verbal consent for the telehealth visit. SUBJECTIVE: Progress visit Tiffani Allison is a 38 year old female seen in Bariatric Surgery clinic today for a progress visit, and to discuss testing performed thus far. WEIGHT Current BMI: There is no height or weight on file to calculate BMI. Last Wt 04/24/24 (!) 138.5 kg (305 lb 5.4 oz) At last visit, HH repair was discussed, as was RYGB. Patient is aware of 6mo smoking cessation requirement for RYGB, she is more symptomatic from her incisional hernia at this current time. Currently, has the same GERD symptoms. There are no problems to display for this patient. No past medical history on file. No past surgical history on file. Social History Tobacco Use Smoking status: Never Smokeless tobacco: Current Tobacco comments: Vape Substance Use Topics Alcohol use: Never Drug use: Never ALLERGIES Allergen Reactions Penicillins Anaphylaxis, Cough, Hives, Itching, Rash, Shortness of Breath, Swelling, Unknown Other Reaction(s): throat swelling and hives Topiramate Intolerance Other Reaction(s): seizures BMI PHYSICAL EXAM: General - Normal, healthy, cooperative, in no acute distress, obese Able to interact verbally by video conference Psych - ORIENTATION: normal to time place, person and situation Mood/Affect: AFFECT AND MOOD: Normal Head/Neuro - Normal size and shape Facial appearance normal Pulmonary - respiratory effort normal Cardiovascular - patient describes extremities normal, warm, no cyanosis,no clubbing, and no edema Abdominal - Deferred, Incisions/scars: Deferred Skin - abnormal lesions not visualized Motor - patient seen sitting with Normal appearing strength and coordination MEDICATIONS: Prior to Admission Medications: acetaminophen 325 mg cap Take 650 mg by mouth every 6 hours as needed. amLODIPine (NORVASC) 10 mg tablet Take 10 mg by mouth. amLODIPine-Atorvastatin 10-10 mg per tablet aspirin, enteric coated (ASPIRIN, ENTERIC COATED) 81 mg EC tablet Take 81 mg by mouth. buPROPion XL (WELLBUTRIN XL) 150 mg 24 hr tablet Take 150 mg by mouth. busPIRone (BUSPAR) 10 mg tablet Take 10 mg by mouth. Chlorhexidine Gluconate (PERIDEX) 0.12 % solution TAKE 15 ML IN MOUTH AND SWISH FOR 30 SECONDS THEN SPIT OUT TWICE DAILY FOR 20 DAYS clindamycin (CLEOCIN) 300 mg capsule TAKE 1 CAPSULE BY MOUTH FOUR TIMES DAILY (IN THE MORNING, at noon, IN THE EVENING, and BEFORE bedtime) FOR 10 DAYS diclofenac, EC, (VOLTAREN) 75 mg EC tablet Take 1 tablet by mouth every 12 hours. escitalopram oxalate (LEXAPRO) 10 mg tablet Take 1 tablet by mouth once daily. ferrous sulfate 325 mg (65 mg iron) EC tablet Take 325 mg by mouth. fluocinonide (LIDEX) 0.05 % external solution APPLY TO THE AFFECTED AREA(S) topically DAILY hydrOXYzine pamoate (VISTARIL) 25 mg capsule Take 1 capsule by mouth two times a day as needed. ibuprofen (MOTRIN) 800 mg tablet levothyroxine (SYNTHROID) 137 mcg tablet TAKE 1 TABLET BY MOUTH IN THE MORNING BEFORE MEALS melatonin 1 mg chew Take by mouth. metoprolol succinate ER (TOPROL XL) 100 mg Take 100 mg by mouth. omeprazole (PRILOSEC) 40 mg capsule Take 40 mg by mouth. ondansetron orally disintegrating (ZOFRAN ODT) 4 mg disintegrating tablet 1 (one) time each day at the same time oxyCODONE-acetaminophen (PERCOCET) 5-325 mg tablet Take 1 tablet by mouth q 6 HR. sertraline (ZOLOFT) 100 mg tablet Take 100 mg by mouth. vit B-comp w-Fe,Ca,FA<1mg (IRON-VITAMINS ORAL) No current facility-administered medications for this visit. VISIT NOTE: Patient seen in clinic today to discuss surgical options. Options include HH repair of sleeve + concurrent TAR, versus TAR only and consideration for [id number] conversion later down the line. She will consider her options and let us know. SIGNATURE: Raine Grissom MD PATIENT NAME: Tiffani Allison Advanced Laparoscopic AND Bariatric Surgery DATE: May 14, 2024 CSN: [id number] TIME: 2:48 PM 10min spent with patient.[facility]10-14-2024 History of Present illness Narrative* Raine Grissom MD - 05/14/2024 2:40 PM EDT BARIATRIC SURGERY PROGRESS VISIT NOTE SERVICE DATE: 05/14/2024 This visit was performed virtually using Zoom technology due to the COVID-19 epidemic as an effort to protect patients and minimize exposure. Patient gave me the verbal consent for the telehealth visit. SUBJECTIVE: Progress visit Tiffani Allison is a 38 year old female seen in Bariatric Surgery clinic today for a progress visit, and to discuss testing performed thus far. WEIGHT Current BMI: There is no height or weight on file to calculate BMI. Last Wt 04/24/24 (!) 138.5 kg (305 lb 5.4 oz) At last visit, HH repair was discussed, as was RYGB. Patient is aware of 6mo smoking cessation requirement for RYGB, she is more symptomatic from her incisional hernia at this current time. Currently, has the same GERD symptoms. There are no problems to display for this patient. No past medical history on file. No past surgical history on file. Social History Tobacco Use Smoking status: Never Smokeless tobacco: Current Tobacco comments: Vape Substance Use Topics Alcohol use: Never Drug use: Never ALLERGIES Allergen Reactions Penicillins Anaphylaxis, Cough, Hives, Itching, Rash, Shortness of Breath, Swelling, Unknown Other Reaction(s): throat swelling and hives Topiramate Intolerance Other Reaction(s): seizures BMI PHYSICAL EXAM: General - Normal, healthy, cooperative, in no acute distress, obese Able to interact verbally by video conference Psych - ORIENTATION: normal to time place, person and situation Mood/Affect: AFFECT AND MOOD: Normal Head/Neuro - Normal size and shape Facial appearance normal Pulmonary - respiratory effort normal Cardiovascular - patient describes extremities normal, warm, no cyanosis,no clubbing, and no edema Abdominal - Deferred, Incisions/scars: Deferred Skin - abnormal lesions not visualized Motor - patient seen sitting with Normal appearing strength and coordination MEDICATIONS: Prior to Admission Medications: acetaminophen 325 mg cap Take 650 mg by mouth every 6 hours as needed. amLODIPine (NORVASC) 10 mg tablet Take 10 mg by mouth. amLODIPine-Atorvastatin 10-10 mg per tablet aspirin, enteric coated (ASPIRIN, ENTERIC COATED) 81 mg EC tablet Take 81 mg by mouth. buPROPion XL (WELLBUTRIN XL) 150 mg 24 hr tablet Take 150 mg by mouth. busPIRone (BUSPAR) 10 mg tablet Take 10 mg by mouth. Chlorhexidine Gluconate (PERIDEX) 0.12 % solution TAKE 15 ML IN MOUTH & SWISH FOR 30 SECONDS THEN SPIT OUT TWICE DAILY FOR 20 DAYS clindamycin (CLEOCIN) 300 mg capsule TAKE 1 CAPSULE BY MOUTH FOUR TIMES DAILY (IN THE MORNING, at noon, IN THE EVENING, and BEFORE bedtime) FOR 10 DAYS diclofenac, EC, (VOLTAREN) 75 mg EC tablet Take 1 tablet by mouth every 12 hours. escitalopram oxalate (LEXAPRO) 10 mg tablet Take 1 tablet by mouth once daily. ferrous sulfate 325 mg (65 mg iron) EC tablet Take 325 mg by mouth. fluocinonide (LIDEX) 0.05 % external solution APPLY TO THE AFFECTED AREA(S) topically DAILY hydrOXYzine pamoate (VISTARIL) 25 mg capsule Take 1 capsule by mouth two times a day as needed. ibuprofen (MOTRIN) 800 mg tablet levothyroxine (SYNTHROID) 137 mcg tablet TAKE 1 TABLET BY MOUTH IN THE MORNING BEFORE MEALS melatonin 1 mg chew Take by mouth. metoprolol succinate ER (TOPROL XL) 100 mg Take 100 mg by mouth. omeprazole (PRILOSEC) 40 mg capsule Take 40 mg by mouth. ondansetron orally disintegrating (ZOFRAN ODT) 4 mg disintegrating tablet 1 (one) time each day at the same time oxyCODONE-acetaminophen (PERCOCET) 5-325 mg tablet Take 1 tablet by mouth q 6 HR. sertraline (ZOLOFT) 100 mg tablet Take 100 mg by mouth. vit B-comp w-Fe,Ca,FA<1mg (IRON-VITAMINS ORAL) No current facility-administered medications for this visit. VISIT NOTE: Patient seen in clinic today to discuss surgical options. Options include HH repair of sleeve + concurrent TAR, versus TAR only and consideration for [id number] conversion later down the line. She will consider her options and let us know. SIGNATURE: Raine Grissom MD PATIENT NAME: Tiffani Allison Advanced Laparoscopic & Bariatric Surgery DATE: May 14, 2024 CSN: [id number] TIME: 2:48 PM 10min spent with patient. [facility] note* Diagnosis Onset Date Resolution Status Admit Date HTN (hypertension) acute Octobe r 2023 10:43am Inappropriate sinus tachycardia acute May 10 10:43am Palpitations noneactive May 10:43am Anxiety acute May 24, 2024 9:57am Depression acute May 24, 2024 9:57am Right ankle injury acute r 2023 9:57am Right ankle pain acute May 24, 2024 9:57am Anxiety acute June 19, 2024 10:02am Depression acute June 19, 2024 10:02am [facility] Work Phone: [phone]) 647-476609-24-2024 NoteHNO ID: [id number] Author: RAINE GRISSOM MD Service: ? Author Type: Physician Type: Progress Notes Filed: 04/30/2024 10:16 Note Text: BARIATRIC HANDP/PRE-OPERATIVE CONSULT SERVICE DATE: 04/24/2024 SERVICE TIME: 9:36 AM BMI Surgical Pathway Visit type: Bariatric Surgeon Visit PRIMARY CARE PHYSICIAN: No primary care provider on file. Subjective Consultation requested by Dr. Jeff for an opinion regarding preoperative evaluation for upcoming surgery. My final recommendations will be communicated back to the requesting physician by way of the shared medical record. CHIEF COMPLAINT: Discussion of hiatal hernia, surgical weight loss, morbid obesity HPI: Tiffani Allison is a 38 year old female who presents on April 24, 2024 for surgical evaluation and treatment of GERD and hiatal hernia in the setting of prior sleeve gastrectomy, also with a symptomatic incisional hernia. Patient has an incisional hernia from a pfannenstiel incision. She has had 3 C-sections (2009, 2021, 2023) and noticed this hernia shortly after her last delivery in November 2023 (approximately 3 weeks after). She reports this hernia is very bothersome; interferes with her ability to bend down, lift objects, etc. She saw Dr. Jeff last week to discuss surgical repair options. Has had GERD for over 10 years, was controlled on omeprazole but more recently, does not have relief. She feels her symptoms have worsened noticeably in the past two months, especially since her incisional hernia has become more bothersome. She endorses substernal pain at baseline, which she attributes to the GERD/hiatal hernia. She endorses early satiety (even more so than after her sleeve gastrectomy) and reports regurgitation if she lays down too quickly after a meal. Her symptoms are worse at night. In the past week she has vomited twice without laying down. She also reports sometimes coughing up stomach acid . Had sleeve gastrectomy in 2017. Patient reports maximum weight of 364lb prior to surgery with a lowest weight of 184lbs achieved in 2019. Patient says she began to re-gain weight in 2020/2021 with her second and again in 2022/2023 with her third . 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 Current weight 305lbs. She is not currently taking a bariatric multivitamin; she was taking a vitamin in her most recent but did not re-start a bariatric multivitamin after delivery. She is open to discussing additional bariatric surgery options, but says her top priority is addressing her incisional hernia. She would like her hiatal hernia to be addressed in the same operation with her incisional hernia, if possible. She notes baseline loose stools, with 2-5 watery BMs/day. She reports this has been her bowel habit baseline since before her 2017 bariatric surgery. Previous abdominal operations include: Lap appy 2017 Low transverse 2009, 2021, 2023 Lap rocío 2006 Sleeve gastrectomy 2016 PMH: GERD HTN Hypothyroidism Iron deficiency anemia - requires iron transfusions Depression PSH: Lap appy 2017 Low transverse 2009, 2021, 2023 Tubal ligation 2023 Lap rocío 2006 Sleeve gastrectomy 2016 Heartburn/reflux: Daily symptoms only partially controlled with omeprazole 40mg QHS. NSAID use: Ibuprofen PRN Smoking: Current nicotine vape use; reports she is planning to quit in anticipation of surgery (says she is on her last cartridge and will not buy more). Former cigarette use, 1 pack per week, age [age] on and off . EtOH: Rare EXERCISE ACTIVITY: Patient reports an interest in exercise but says incisional hernia prevents her from many activities (cannot bend, cannot lift objects). FUNCTIONAL STATUS: Climb a flight of stairs or walk up a hill (5.50 METs) No past medical history on file. No past surgical history on file. No family history on file. Social History Tobacco Use Smoking status: Every Day Types: Pipe Smokeless tobacco: Never Current Outpatient Medications Medication Sig acetaminophen 325 mg cap Take 650 mg by mouth every 6 hours as needed. amLODIPine (NORVASC) 10 mg tablet Take 10 mg by mouth. amLODIPine-Atorvastatin 10-10 mg per tablet aspirin, enteric coated (ASPIRIN, ENTERIC COATED) 81 mg EC tablet Take 81 mg by mouth. buPROPion XL (WELLBUTRIN XL) 150 mg 24 hr tablet Take 150 mg by mouth. busPIRone (BUSPAR) 10 mg tablet Take 10 mg by mouth. Chlorhexidine Gluconate (PERIDEX) 0.12 % solution TAKE 15 ML IN MOUTH AND SWISH FOR 30 SECONDS THEN SPIT OUT TWICE DAILY FOR 20 DAYS clindamycin (CLEOCIN) 300 mg capsule TAKE 1 CAPSULE BY MOUTH FOUR TIMES DAILY (IN THE MORNING, at noon, IN THE EVENING, and BEFORE bedtime) FOR 10 DAYS diclofenac, EC, (VOLTAREN) 75 mg EC tablet Take 1 tablet by mouth every 12 hours. escitalopram oxalate (LEXAPRO) 10 mg tablet Take 1 tablet by mouth (more content not included)...[facility]09-24-2024 History of Present illness Narrative* Raine Grissom MD - 04/24/2024 9:34 AM EDT BARIATRIC H&P/PRE-OPERATIVE CONSULT SERVICE DATE: 04/24/2024 SERVICE TIME: 9:36 AM BMI Surgical Pathway Visit type: Bariatric Surgeon Visit PRIMARY CARE PHYSICIAN: No primary care provider on file. Subjective Consultation requested by Dr. Jeff for an opinion regarding preoperative evaluation for upcoming surgery. My final recommendations will be communicated back to the requesting physician by way of the shared medical record. CHIEF COMPLAINT: Discussion of hiatal hernia, surgical weight loss, morbid obesity HPI: Tiffani Allison is a 38 year old female who presents on April 24, 2024 for surgical evaluation and treatment of GERD and hiatal hernia in the setting of prior sleeve gastrectomy, also with asymptomatic incisional hernia. Patient has an incisional hernia from a pfannenstiel incision. She has had 3 C- sections (2009, 2021, 2023) and noticed this hernia shortly after her last delivery in November 2023 (approximately 3 weeks after). She reports this hernia is very bothersome; interferes with her ability to bend down, lift objects, etc. She saw Dr. Jeff last week to discuss surgical repair options. Has had GERD for over 10 years, was controlled on omeprazole but more recently, does not have relief. She feels her symptoms have worsened noticeably in the past two months, especially since her incisional hernia has become more bothersome. She endorses substernal pain at baseline, which she attributes to the GERD/hiatal hernia. She endorses early satiety (even more so than after her sleeve gastrectomy) and reports regurgitation if she lays down too quickly after a meal. Her symptoms are worse at night. In the past week she has vomited twice without laying down. She also reports sometimes coughing up stomach acid . Had sleeve gastrectomy in 2017. Patient reports maximum weight of 364lb prior to surgery with a lowest weight of 184lbs achieved in 2019. Patient says she began to re-gain weight in 2020/2021 with her second and again in with her third . 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 Current weight 305lbs. Sheis not currently taking a bariatric multivitamin; she was taking a vitamin in her most recent but did not re-start a bariatric multivitamin after delivery. She is open to discussing additional bariatric surgery options, but says her top priority is addressing her incisional hernia. She would like her hiatal hernia to be addressed in the same operation with her incisional hernia, if possible. She notes baseline loose stools, with 2-5 watery BMs/day. She reports this has been her bowel habitbaseline since before her 2017 bariatric surgery. Previous abdominal operations include: Lap appy 2016 Low transverse 2009, 2021, 2023 Lap rocío 2006 Sleeve gastrectomy 2016 PMH: GERD HTN Hypothyroidism Iron deficiency anemia - requires iron transfusions Depression PSH: Janee appy 2017 Low transverse 2009, 2021, 2023 Tubal ligation 2023 Janee rocío 2006 Sleeve gastrectomy 2017 Heartburn/reflux: Daily symptoms only partially controlled with omeprazole 40mg QHS. NSAID use: Ibuprofen PRN Smoking: Current nicotine vape use; reports she is planning to quit in anticipation of surgery (says she is on her last cartridge and will not buy more). Former cigarette use, 1 pack per week, age [age] on and off . EtOH: Rare EXERCISE ACTIVITY: Patient reports an interest in exercise but says incisional hernia prevents her from many activities (cannot bend, cannot lift objects). FUNCTIONAL STATUS: Climb a flight of stairs or walk up a hill (5.50 METs) No past medical history on file. No past surgical history on file. No family history on file. Social History Tobacco Use Smoking status: Every Day Types: Pipe Smokeless tobacco: Never Current Outpatient Medications Medication Sig acetaminophen 325 mg cap Take 650 mg by mouth every 6 hours as needed. amLODIPine (NORVASC) 10 mg tablet Take 10 mg by mouth. amLODIPine-Atorvastatin 10-10 mg per tablet aspirin, enteric coated (ASPIRIN, ENTERIC COATED) 81 mg EC tablet Take 81 mg by mouth. buPROPion XL (WELLBUTRIN XL) 150 mg 24 hr tablet Take 150 mg by mouth. busPIRone (BUSPAR) 10 mg tablet Take 10 mg by mouth. Chlorhexidine Gluconate (PERIDEX) 0.12 % solution TAKE 15 ML IN MOUTH & SWISH FOR 30 SECONDS THEN SPIT OUT TWICE DAILY FOR 20 DAYS clindamycin (CLEOCIN) 300 mg capsule TAKE 1 CAPSULE BY MOUTH FOUR TIMES DAILY (IN THE MORNING, at noon, IN THE EVENING, and BEFORE bedtime) FOR 10 DAYS diclofenac, EC, (VOLTAREN) 75 mg EC tablet Take 1 tablet by mouth every 12 hours. escitalopram oxalate (LEXAPRO) 10 mg tablet Take 1 tablet by mouth once daily. ferrous sulfate 325 mg (65 mg iron) EC tablet Take 325 mg by mouth. fluocinonide (LIDEX) 0.05 % external solution APPLY TO THE AFFECTED AREA(S) topically DAILY hydrOXYzine pamoate (VISTARIL) 25 mg capsule Take 1 capsule by mouth two times a day as needed. ibuprofen (MOTRIN) 800 mg tablet levothyroxine (SYNTHROID) 137 mcg tablet TAKE 1 TABLET BY MOUTH IN THE MORNING BEFORE MEALS melatonin 1 mg chew Take by mouth. metoprolol succinate ER (TOPROL XL) 100 mg Take 100 mg by mouth. omeprazole (PRILOSEC) 40 mg capsule Take 40 mg by mouth. ondansetron orally disintegrating (ZOFRAN ODT) 4 mg disintegrating tablet 1 (one) time each day at the same time oxyCODONE-acetaminophen (PERCOCET) 5-325 mg tablet Take 1 tablet by mouth q 6 HR. sertraline (ZOLOFT) 100 mg tablet Take 100 mg by mouth. vit B-comp w-Fe,Ca,FA<1mg (IRON-VITAMINS ORAL) No current facility-administered medications for this visit. ALLERGIES Allergen Reactions Penicillins Anaphylaxis, Cough, Hives, Itching, Rash, Shortness of Breath, Swelling, Unknown Other Reaction(s): throat swelling and hives Topiramate Intolerance Other Reaction(s): seizures REVIEW OF SYSTEMS: General: no fevers or chills Neuro: No history of stroke or neurological problems. Respiratory: No SOB or cough. No asthma. No snoring/EARNEST Cardiovascular: + HTN, no CHF or PA. GI: +Abdominal pain in middle of lower abdomen, worse with bending/straining. +Diarrhea, chronic. +Reflex, heartburn, early satiety, regurgitation when recumbent. : No dysuria or hematuria. No kidney stones. Endocrine: Has not taken steroids within the past 30 days. No history of diabetes. Hematology: No history of bleeding disorder. No h/o DVT or PE. Oncology: No personal history of cancer. Psych: +Takes Wellbutrin, Buspar, Lexapro, Zoloft for anxiety and depression Skin: No ecchymoses Objective PHYSICAL EXAM: Patient reported There were no vitals taken for this visit. General - Normal, healthy, cooperative, in no acute distress, obese Able to interact verbally by video conference Psych - ORIENTATION: normal to time place, person and situation Mood/Affect: AFFECT AND MOOD: Normal Head/Neuro - Normal size and shape Facial appearance normal Pulmonary - respiratory effort normal Cardiovascular - patient describes extremities normal, warm, no cyanosis,no clubbing, and no edema Abdominal - Obese, Visible protrusions or hernias: Incisional hernia bulge in lower abdomen near midline and left of midline, tender to palpatation. Remainder of abdomen nontender. Incisions/scars: Healed laparoscopic sites. Skin - abnormal lesions not visualized Motor - patient seen sitting with Normal appearing strength and coordination DATA: Diagnostic tests reviewed for today's visit: Labs reviewed: none Imaging reviewed: CT scan (ABD/PEL w/CON) + incisional hernia, +herniated sleeve Provider notes reviewed: Dr. Jeff, 04/16/24, Dominic Kerr The following labs were reviewed: No results found for: WBC , RBC , HB , HCT , MCV , MCH , MCHC , RDWCV , PLT , MPV No results found for: GLUC , BUN , CREAT , NA , K , CHLOR , CO2 , TPROT , ALB , CA , ALKPHOS , TBILI , AST , ALT No results found for: GLUC , CREAT , K , AST , ALT , HBA1C , CHOL , HDL ] No results found for: LDL , TG , UALBCR ] No results found for: HBA1C , ALB , CHOL , HDL , LDL , TG ] No results found for: GLUC , BUN , CREAT , NA , K , CHLOR , CO2 , TPROT , ALB , CA , ALKPHOS , TBILI , AST , ALT No results found for: WBC , RBC , HB , HCT , MCV , MCH , MCHC , RDWCV , PLT , MPV PROBLEM LIST: There are no problems to display for this patient. Assessment/Plan Ms. Allison is a 38 year old female referred to me for preoperative evaluation. IMPRESSION: Hiatal hernia: - Patient has a small hiatal hernia visualized on Mar [address]24 CT scan in setting of sleeve gastrectomyanatomy. - Patient is interested in receiving surgical repair of hernia, potentially in combination with incisional hernia repair, which will be discussed with Dr. Jeff. Morbid obesity, BMI 43.8: - Patient is s/p sleeve gastrectomy. She had successful weight loss (TWL ~%50), however, has experienced weight regain after two pregnancies, antidepressant regimen, and PPD. - Recommended patient consider visits with BMI nutrition for refresher on post- MBS nutrition. Recommended patient re-start bariatric multivitamins. GERD: - Patient is currently on omeprazole 40mg, which she takes around 10pm. Her symptoms are not well-controlled. - Recommend increasing dose to 40mg BID, taking doses first thing in the morning and before dinner.Instructed patient to take doses on empty stomach, 30 minutes before eating. Recommended patient adjust timing of her levothyroxine dose to the evenings Patient is interested in receiving hiatal hernia repair concurrent to incisional hernia repair. Discussed with patient the possibility that hiatal hernia repair may or may not resolve her GERD symptoms. Discussed other option of conversion to Liat-en-Y gastric bypass could help improve GERD symptoms as well as weight loss, though patient would need to wait at least 6 months of quitting nicotine/vaping for this option. She understands that this would require lifetime nicotine cessation. Currently, patient is more interested in repairing her incisional hernia now instead of waiting 6 months, asthe incisional hernia in particular is affecting her quality of life. HTN: - Managed with amlodipine 10mg, metoprolol 40mg. - BP today 144/82. The patient's case will be discussed with Dr. Jeff regarding the possibility of a combined operation for repair of incisional and hiatal hernias. SIGNATURE: Raine Grissom MD PATIENT NAME: Tiffani Allison DATE: April 24, 2024 TIME: 9:36 AM Raine Grissom MD Medical Decision Making: Problems: Moderate: 2+ stable chronic illnesses Data: Unique source(s) for external note(s) reviewed: 3+ Independent interpretation of test from other physician/QHCP Risk: High: Decision on elective major surgery w/ risk factors Medical Decision Making Level: 5 - High [facility] Tele[facility] encounter Note * Telephone Encounter - Kristi Watts RN - 04/18/2024 10:17 AM EDT [facility] SPECIALTY CARE COORDINATION TELEPHONE ENCOUNTER LVM with call back number for pt to make an appt with Dr. Grissom. [facility]09-[facility] Miscellaneous Notes* Telephone Encounter - Kristi Watts RN - 04/18/2024 10:17 AM EDT [facility] SPECIALTY CARE COORDINATION TELEPHONE ENCOUNTER LVM with call back number for pt to make an appt with Dr. Grissom. documented [facility]24 NoteHNO ID: [id number] Author: ROCIO JEFF MD Service: ? Author Type: Physician Type: Progress Notes Filed: 04/23/2024 08:59 Note Text: Consultation requested by Dr. Adrian Kerr for an opinion regarding incisional hernia. My final recommendations will be communicated back to the requesting physician by way of shared Medical record or letter to requesting physician via US mail. TEACHING PHYSICIAN NOTE OF PERSONAL INVOLVEMENT IN CARE: I have personally seen and examined the patient and performed the medical decision-making components. I have reviewed the medical student documentation and verified the findings in the note as written. Any additions or changes are noted in bold/italics. Signature: Rocio Jeff Date: 04/16/2024 Time: 4:02 PM Tiffani Allison is a 38 year old female here for evaluation of a(n) incisional hernia. Prior surgical history is significant for Pfannenstiel incision x 2 and lap sleeve gastrectomy, lap cholecystectomy. Other significant comorbidities include obesity, vaping every day, severe gerd, HH. On exam, there is a lower abdominal incisional hernia. Plan is for send to Dr. Grissom for consultation re: possible combo surgery. Patient consented for study? Not applicable Rocio Jeff MD April 16, 2024 4:02 [facility]09-16-2024 History of Present illness Narrative * Rocio Jeff MD - 04/16/2024 4:01 PM EDT Consultation requested by Dr. Adrian Kerr for an opinion regarding incisional hernia. My final recommendations will be communicated back to the requesting physician by way of shared Medical record orletter to requesting physician via US mail. TEACHING PHYSICIAN NOTE OF PERSONAL INVOLVEMENT IN CARE: I have personally seen and examined the patient and performed the medical decision-making components. I have reviewed the medical student documentation and verified the findings in the note as written. Any additions or changes are noted in bold/italics. Signature: Rocio Jeff Date: 04/16/2024 Time: 4:02 PM Tiffani Allison is a 38 year old female here for evaluation of a(n) incisional hernia. Prior surgical history is significant for Pfannenstiel incision x 2 and lap sleeve gastrectomy, lap cholecystectomy. Other significant comorbidities include obesity, vaping every day, severe gerd, HH. On exam, there is a lower abdominal incisional hernia. Plan is for send to Dr. Grissom for consultation re: possible combo surgery. Patient consented for study? Not applicable Rocio Jeff MD April 16, 2024 4:02 PM * Ran Padron - 04/16/2024 3:50 PM EDT [facility] - HISTORY AND PHYSICAL Chief Complaint: Hypogastric ventral hernia and hiatal hernia HPI: Tiffani Allison is a 38 year old female who presents with 2 month history of symptomatic hypogastric ventral hernia. Pt first noticed a bulge in the shower and is has been persistently tender since, grown 3x in size, hurts worse when coughing/sneezing/straining/bending over/picking up her children. She also reports intermittent nausea without vomiting. She denies constipation or hematochezia. She most recently had a pfannenstiel incision for in September of this year. Pt also has 10+ year history of heartburn and has been on omeprazole since then. When taking it as prescribed, pt experiences adequate symptomatic management. Pt described the pain as substernal burning associated with typical trigger foods, if she doesn't lay flat for 1 hour after meals then she experiences significant distress. She denies dysphagia and regurgitation. Pt reports a 2022 EGD that s howed esophagitis, pt is very interested in operative repair. 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 Relevant previous abdominal operations include: Lap appy 2017 Low transverse 2009, 2021, 2023 Lap rocío 2006 Sleeve gastrectomy 2016 No past medical history on file. No past surgical history on file. Social History Tobacco Use Smoking status: Every Day Types: Pipe Smokeless tobacco: Never Additional social history not relevant to the patient's HPI No family history on file. Additional family history not relevant to the patient's HPI ALLERGIES Allergen Reactions Penicillins Anaphylaxis, Cough, Hives, Itching, Rash, Shortness of Breath, Swelling, Unknown Other Reaction(s): throat swelling and hives Topiramate Intolerance Other Reaction(s): seizures Current Outpatient Medications Medication Sig Dispense Refill amLODIPine (NORVASC) 10 mg tablet Take 10 mg by mouth. aspirin, enteric coated (ASPIRIN, ENTERIC COATED) 81 mg EC tablet Take 81 mg by mouth. buPROPion XL (WELLBUTRIN XL) 150 mg 24 hr tablet Take 150 mg by mouth. busPIRone (BUSPAR) 10 mg tablet Take 10 mg by mouth. Chlorhexidine Gluconate (PERIDEX) 0.12 % solution TAKE 15 ML IN MOUTH & SWISH FOR 30 SECONDS THEN SPIT OUT TWICE DAILY FOR 20 DAYS clindamycin (CLEOCIN) 300 mg capsule TAKE 1 CAPSULE BY MOUTH FOUR TIMES DAILY (IN THE MORNING, at noon, IN THE EVENING, and BEFORE bedtime) FOR 10 DAYS diclofenac, EC, (VOLTAREN) 75 mg EC tablet Take 1 tablet by mouth every 12 hours. escitalopram oxalate (LEXAPRO) 10 mg tablet Take 1 tablet by mouth once daily. hydrOXYzine pamoate (VISTARIL) 25 mg capsule Take 1 capsule by mouth two times a day as needed. ibuprofen (MOTRIN) 800 mg tablet levothyroxine (SYNTHROID) 137 mcg tablet TAKE 1 TABLET BY MOUTH IN THE MORNING BEFORE MEALS metoprolol succinate ER (TOPROL XL) 100 mg Take 100 mg by mouth. omeprazole (PRILOSEC) 40 mg capsule Take 40 mg by mouth. ondansetron orally disintegrating (ZOFRAN ODT) 4 mg disintegrating tablet 1 (one) time each day at the same time oxyCODONE-acetaminophen (PERCOCET) 5-325 mg tablet Take 1 tablet by mouth q 6 HR. sertraline (ZOLOFT) 100 mg tablet Take 100 mg by mouth. acetaminophen 325 mg cap Take 650 mg by mouth every 6 hours as needed. amLODIPine-Atorvastatin 10-10 mg per tablet ferrous sulfate 325 mg (65 mg iron) EC tablet Take 325 mg by mouth. fluocinonide (LIDEX) 0.05 % external solution APPLY TO THE AFFECTED AREA(S) topically DAILY melatonin 1 mg chew Take by mouth. vit B-comp w-Fe,Ca,FA<1mg (IRON-VITAMINS ORAL) No current facility-administered medications for this visit. REVIEW OF SYSTEMS GENERAL: No fevers. RESPIRATORY: No cough or shortness of breath CARDIOVASCULAR: No chest pain GI: No nausea, vomiting, or diarrhea The remainder of the review of systems is negative. BP 149/79 Pulse 72 Temp 36.5 C (97.7 F) (Temporal) Ht 177.8 cm (5' 10 ) Wt 136.1 kg (300 lb) BMI 43.05 kg/m Physical findings of this patient are as follows Physical Exam Constitutional: The patient is well-developed and in no distress. Cardiovascular: Regular rate. Pulmonary/Chest: Effort normal and breathing comfortably on room air. Abdominal: Soft. Focally tender suprapubic region with associated bulge and c- section scar. Otherwise nontender. Neurological: Alert. Skin: Skin is warm and dry. Psychiatric: Affect and judgment normal. LABS: No results found for: HBA1C IMAGING - Reviewed with staff CT - 03/30: Large hypogastric ventral hernia associated with posterior displacement of rectus muscles, moderate hiatal hernia noted Assessment: Tiffani Allison is a 38 year old female who presents with symptomatic ventral incisional hernia and symptomatic hiatal hernia with longstanding history of GERD iso prior sleeve gastrectomy. Pt has two problems that could be managed surgically and should be done in sequence. The hiatal he rnia could be treated by a laparoscopic sleeve revision and that should be best handled by the bariatric team. The ventral hernia repair is most likely treated by a TAR and should be treated after the hiatal hernia repair. Plan: - Refer to and coordinate with bariatric surgery concerning hiatal hernia repair - Consented for TAR for ventral hernia repair Ran Padron MS4 documented in [facility] encounterNor[facility]09-16-[facility]24 NoteHNO ID: [id number] Author: ?, ?, ? Service: ? Author Type: ? Type: Progress Notes Filed: 04/23/2024 08:59 Note Text: [facility] - HISTORY AND PHYSICAL Chief Complaint: Hypogastric ventral hernia and hiatal hernia HPI: Tiffani Allison is a 38 year old female who presents with 2 month history of symptomatic hypogastric ventral hernia. Pt first noticed a bulge in the shower and is has been persistently tender since, grown 3x in size, hurts worse when coughing/sneezing/straining/bending over/picking up her children. She also reports intermittent nausea without vomiting. She denies constipation or hematochezia. She most recently had a pfannenstiel incision for in September of this year. Pt also has 10+ year history of heartburn and has been on omeprazole since then. When taking it as prescribed, pt experiences adequate symptomatic management. Pt described the pain as substernal burning associated with typical trigger foods, if she doesn't lay flat for 1 hour after meals then she experiences significant distress. She denies dysphagia and regurgitation. Pt reports a 2022 EGD that showed esophagitis, pt is very interested in operative repair. 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 Relevant previous abdominal operations include: Lap appy 2017 Low transverse 2009, 2021, 2023 Lap rocío 2006 Sleeve gastrectomy 2016 No past medical history on file. No past surgical history on file. Social History Tobacco Use Smoking status: Every Day Types: Pipe Smokeless tobacco: Never Additional social history not relevant to the patient's HPI No family history on file. Additional family history not relevant to the patient's HPI ALLERGIES Allergen Reactions Penicillins Anaphylaxis, Cough, Hives, Itching, Rash, Shortness of Breath, Swelling, Unknown Other Reaction(s): throat swelling and hives Topiramate Intolerance Other Reaction(s): seizures Current Outpatient Medications Medication Sig Dispense Refill amLODIPine (NORVASC) 10 mg tablet Take 10 mg by mouth. aspirin, enteric coated (ASPIRIN, ENTERIC COATED) 81 mg EC tablet Take 81 mg by mouth. buPROPion XL (WELLBUTRIN XL) 150 mg 24 hr tablet Take 150 mg by mouth. busPIRone (BUSPAR) 10 mg tablet Take 10 mg by mouth. Chlorhexidine Gluconate (PERIDEX) 0.12 % solution TAKE 15 ML IN MOUTH AND SWISH FOR 30 SECONDS THEN SPIT OUT TWICE DAILY FOR 20 DAYS clindamycin (CLEOCIN) 300 mg capsule TAKE 1 CAPSULE BY MOUTH FOUR TIMES DAILY (IN THE MORNING, at noon, IN THE EVENING, and BEFORE bedtime) FOR 10 DAYS diclofenac, EC, (VOLTAREN) 75 mg EC tablet Take 1 tablet by mouth every 12 hours. escitalopram oxalate (LEXAPRO) 10 mg tablet Take 1 tablet by mouth once daily. hydrOXYzine pamoate (VISTARIL) 25 mg capsule Take 1 capsule by mouth two times a day as needed. ibuprofen (MOTRIN) 800 mg tablet levothyroxine (SYNTHROID) 137 mcg tablet TAKE 1 TABLET BY MOUTH IN THE MORNING BEFORE MEALS metoprolol succinate ER (TOPROL XL) 100 mg Take 100 mg by mouth. omeprazole (PRILOSEC) 40 mg capsule Take 40 mg by mouth. ondansetron orally disintegrating (ZOFRAN ODT) 4 mg disintegrating tablet 1 (one) time each day at the same time oxyCODONE-acetaminophen (PERCOCET) 5-325 mg tablet Take 1 tablet by mouth q 6 HR. sertraline (ZOLOFT) 100 mg tablet Take 100 mg by mouth. acetaminophen 325 mg cap Take 650 mg by mouth every 6 hours as needed. amLODIPine-Atorvastatin 10-10 mg per tablet ferrous sulfate 325 mg (65 mg iron) EC tablet Take 325 mg by mouth. fluocinonide (LIDEX) 0.05 % external solution APPLY TO THE AFFECTED AREA(S) topically DAILY melatonin 1 mg chew Take by mouth. vit B-comp w-Fe,Ca,FA<1mg (IRON-VITAMINS ORAL) No current facility-administered medications for this visit. REVIEW OF SYSTEMS GENERAL: No fevers. RESPIRATORY: No cough or shortness of breath CARDIOVASCULAR: No chest pain GI: No nausea, vomiting, or diarrhea The remainder of the review of systems is negative. BP 149/79 Pulse 72 Temp 36.5 ?C (97.7 ?F) (Temporal) Ht 177.8 cm (5' 10 ) Wt 136.1 kg (300 lb) BMI 43.05 kg/m? Physical findings of this patient are as follows Physical Exam Constitutional: The patient is well-developed and in no distress. Cardiovascular: Regular rate. Pulmonary/Chest: Effort normal and breathing comfortably on room air. Abdominal: Soft. Focally tender suprapubic region with associated bulge and scar. Otherwise nontender. Neurological: Alert. Skin: Skin is warm and dry. Psychiatric: Affect and judgment normal. LABS: No results found for: HBA1C IMAGING - Reviewed with staff CT - 03/30: Large hypogastric ventral hernia associated with posterior displacement of rectus muscles, moderate hiatal hernia noted Assessment: Tiffani Boston (more content not included)...[facility]09-16-2024 Nurse Note* Annika Orr MA - 04/16/2024 2:36 PM EDT What is the reason for your visit today? Consult Who is your referring physician? Dr. Jeff Are you having poor oral intake? NO Have you had unintentional weight loss of 15 lbs/7 Kg in the last 3-6 months? NO Bowels: regular Wound: clean & dry Temperature: No Drains: No [facility]09-16-2024 Nurse Note* Annika Orr MA - 04/16/2024 2:36 PM EDT What is the reason for your visit today? Consult Who is your referring physician? Dr. Jeff Are you having poor oral intake? NO Have you had unintentional weight loss of 15 lbs/7 Kg in the last 3-6 months? NO Bowels: regular Wound: clean & dry Temperature: No Drains: No documented in this encounterNorwalk [facility]09-[facility] Telephone encounter Note * Telephone Encounter - Hilda Kitchen LPN - 04/11/2024 4:03 PM EDT Contacted patient, verified name and . Advised of the following Abdominal Surgeries performed and patient had Imaging performed from [facility] 03/29/24 and to bring Imaging with her to appointment. 2018--Gastric Bypass ( [facility], [place], [place]) 2017--Appendectomy ([place], [place]; [facility]) Advised patient will contact to obtain Operative Reports and patient to be sent [employer] Message to contact if any needs or concerns arise, patient acknowledged and verbalized understanding. Hilda Kitchen LPN [facility]09-11-2024 Miscellaneous Notes* Telephone Encounter - Hilda Kitchen LPN - 04/11/2024 4:03 PM EDT Contacted patient, verified name and . Advised of the following Abdominal Surgeries performed and patient had Imaging performed from [facility] 03/29/24 and to bring Imaging with her to appointment. 2018--Gastric Bypass ( [facility], [place], [place]) 2017--Appendectomy ([place], [place]; [facility]) Advised patient will contact to obtain Operative Reports and patient to be sent [employer] Message to contact if any needs or concerns arise, patient acknowledged and verbalized understanding. Hilda Kitchen LPN documented in this encounterNorwalk Memorial Hospital08-20-2024 NoteHNO ID: [id number] Author: LALA CONTRERAS APRN.BRANDON Service: ? Author Type: Nurse Practitioner Type: Progress Notes Filed: 03/20/2024 14:40 Note Text: Scheduling: Clinical DDI Triage Patient Name: Tiffani Allison Patient was verified by: Name/Date of Triage process was used for: patient complaint of rfv not listed Symptoms: Pt has a scanned in referral to GI for abdominal wall mass and abdominal wall ventral hernia. Speaking with the patient she was referred to [facility] for possible repair of large ventral hernia. - no records in chart currently but patient will fax over a recent CT After discussing with patient and chart review, the patient/scheduler maintenance were instructed to schedule with General Surgery Appointment was scheduled with Dr. Quique Contreras APRN.TUTOR COORDINATOR March 20, 2024 2:38 [facility]08-20-2024 History of Present illness Narrative* Lala Contreras APRN.BRANDON - 03/20/2024 2:38 PM EDT Scheduling: Clinical DDI Triage Patient Name: Tiffani Allison Patient was verified by: Name/Date of Triage process was used for: patient complaint of rfv not listed Symptoms: Pt has a scanned in referral to GI for abdominal wall mass and abdominal wall ventral hernia. Speaking with the patient she was referred to [facility] for possible repair of large ventral hernia. - no records in chart currently but patient will fax over a recent CT After discussing with patient and chart review, the patient/scheduler maintenance were instructed to schedule with General Surgery Appointment was scheduled with Dr. Quique Contreras APRN.CNP March 20, 2024 2:38 PM documented in this encounterNorwalk [facility] Hospital08-20-2024 NotePatient Outreach (JENNIFER) TIFFANI ALLISON ([id number]) 1985 F Date Time Provider Department 03/20/24 LALA CONTRERAS During your visit today, we recorded the following information about you: Lala Contreras APRN.CNP 03/20/2024 2:40 PM Signed Scheduling: Clinical DDI Triage Patient Name: Tiffani Allison Patient was verified by: Name/Date of Triage process was used for: patient complaint of rfv not listed Symptoms: Pt has a scanned in referral to GI for abdominal wall mass and abdominal wall ventral hernia. Speaking with the patient she was referred to [facility] for possible repair of large ventral hernia. - no records in chart currently but patient will fax over a recent CT After discussing with patient and chart review, the patient/scheduler maintenance were instructed to schedule with General Surgery Appointment was scheduled with Dr. Quique Contreras APRN.CNP March 20, 2024 2:38 PM Allergies As of Date: 03/20/2024 (Not on File) Date Reviewed: Never Reviewed Problem List As Of Date: 03/20/2024 (None) Encounter Status:Closed by LALA CONTRERAS on 03/20/24[facility] 03-13-2024 NoteGeneral Surgery Office/Clinic Note Chief Complaint consultation for hernia HPI Staff 38 year old female presents on consultation from Elisabeth Beckman for incisional hernia. Reportsnoting bulge over cesarian section scar approximately 3-4 weeks ago. Patient is 12 weeks post . Denies change in size since noted. Reports some daily nausea, denies vomiting. No bowel changes. No imaging completed. History of Present Illness 38 yo female with h/o htn, morbid obesity, hypothyroidism, depression/anxiety, migraines, GERD; referred for incisional hernia; patient reports 1 month h/o lower abd bulge, in middle of scar, had 3 c-sections in past, last one 3 months ago; no skin change, some nausea, no bowel changes, getting larger; no imaging; abdominal operations significant for appendectomy, gastric sleeve, cholecystectomy, and ; on baby asa and ibuprofen daily; vapes nicotine- containing substance daily, former smoker. Review of Systems PHQ Score Initial Depression Screen Score: 0 SCORE ROS - Provider Constitutional: no fever, no sweats, no weight loss. Eyes: yes glasses, no blurred vision, no visual loss. ENMT: no dentures, no hoarseness, no swallowing difficulties, no hearing loss, no ear infection(s),no nose bleeds. Cardiovascular: normal blood pressure, no chest pain, regular heartbeat, no heart murmur. Respiratory: no shortness of breath, no cough, no asthma, no wheezing. Gastrointestinal: no nausea, no vomiting, no diarrhea, no constipation, no blood in stool, no change in bowel habits, no abdominal pain, no hepatitis. Genitourinary: no kidney stones, no urine infection, no dysuria. Musculoskeletal: no pain, no weakness. Skin: no changing moles, no rash, no skin lumps. Neurologic: no seizures, no epilepsy, no headache. Psychiatric: no emotional or psychiatric problem. Heme/Lymph: no bleeding problems, no anemia, no blood clots, no transfusions. Allergy/Immunologic: no swollen lymph nodes/glands, no IV drug abuse. Other: Additional ROS info: Except as noted in the above Review of Systems and in the History of Present Illness, all other systems have been reviewed and are negative or noncontributory. Physical Exam Vitals & Measurements HR: 80(Peripheral) RR: 16 BP: 124/85 HT: 71 in HT: 180.34 cm WT: 137.4 kg WT: 302.28 lb BMI: 42.25 HEENT: normal conjunctiva, sclera clear, no scleral icterus, EOM intact, PERRLA, oral mucosa moist without lesions. Neck: trachea midline, no mass, symmetric, no thyromegaly or nodules, no adenopathy Respiratory: lungs CTA, respirations non labored. Cardiovascular: regular rate and rhythm, no murmur, no pedal edema or varicosities. Gastrointestinal: obese,soft, non distended, no tenderness, no masses, partially reducible incisional hernia in midline of low Pfannensteil incision, mild tenderness, no skin changes, difficult to palpate due to abd pannus/obesity, diastasis recti yes, no hepatosplenomegaly; normal bs Lymphatic: no cervical adenopathy, no supraclavicular adenopathy. Musculoskeletal: normal gait, digits and nails without infection, nodes, cyanosis, clubbing. Skin: no rashes, no lesions, no ulcers, no subcutaneous nodules, induration. Psychiatric/Neuro: oriented to time, place, person, judgement normal, affect appropriate for age, insight intact, no focal deficits. Tests: , review of old records completed , Assessment/Plan 1. Ventral incisional hernia (K43.2: Incisional hernia without obstruction or gangrene) unable to palpate fascial defect/size of hernia due to obesity/abd pannus; will check abd/pelvic ctscan with contrast for further evaluation, will call patient with results; patient will require referral to tertiary care center for repair due to obesity, multiple previous abdominal surgeries and nicotine use; patient high risk for surgery/recurrence. signs/symptoms of incarceration/strangulation of hernia explained in detail, and patient understands that he should seek prompt medical evaluation if they were to occur. patient to call sooner if problems/questions. Ordered: CT Abdomen/Pelvis w/ Contrast 2. Vapes nicotine containing substance (Z72.0: Tobacco use) We strongly recommend to quit tobacco use. Cigarette smoking harms nearly every organ of the body, causes many diseases, and reduces the health of smokers in general. Quitting smoking lowers your risk for smoking-related diseases and can add years to your life. We encourage you to visit www.smokefree.gov access to helpful resources including free telephone support. If you decide on prescription treatment to help you quit, your family doctor would be happy to provide these. Ordered: CT Abdomen/Pelvis w/ Contrast 3. Class 3 obesity (E66.01: Morbid (severe) obesity due to excess calories) recommend diet and exercise Ordered: CT Abdomen/Pelvis w/ Contrast 4. BMI 40.0-44.9, adult (Z68.41: Body mass index [BMI] 40.0-44.9, adult) see # 3 Ordered: CT Abdomen/Pelvis w/ Contrast (more content not included)...[facility] HospitalComment on above:Result Comment: Electronically Signed By: GUILLERMO RUSSELL, King Sanz\Date and Time Signed: 03/13/24 11:03 [id number] Hospital Discharge instructionsAmbulatory Orders* Referral to General Surgery Time Frame: 02/28/24, Location: None [facility] Work Phone: [phone]) 548-563904-03-2024 History of Present illness Narrative* Héctor Aguilar MD - 11/02/2023 11:30 AM EDT REASON FOR TELEMEDICINE VIDEO OFFICE VISIT: Maternal [...] TO THE AFFECTED AREA(S) EVERY OTHER DAY, Disp:, Rfl: hydrOXYzine (VISTARIL) 25 mg capsule, TAKE [...] total) by mouth in the morning., Disp: ,Rfl: sertraline (ZOLOFT) 100 mg tablet, Take 1 tablet (100 mg total) by mouth in the morning. (Patient not taking: Reported on 09/22/2023), Disp: , Rfl: SYNTHROID 137 mcg tablet, , Disp: , Rfl: Past Medical History: Diagnosis Date Anemia Anxiety Depression Hypertension Hypothyroidism Kidney stones Migraines Seizure ([facility]) REVIEW OF SYSTEMS: Head and Neck: [...] for allowing me to participate in [facility]. If there are any questions, please do not hesitate to call me. Sincerely, HÉCTOR AGUILAR MD Video Visit via Real-time Synchronous Audiovisual Provider Location: [facility] AT [address] [address] Patient Location: Patient's home Patient Location Lab Rep: None Video Visit Consent Statement: I discussed risks, benefits, and alternatives of a real-time synchronous audiovisual consultation with the patient (and any accompanying persons) including the risks that the patient's personal health details and medical records will be discussed over real-time, synchronous, interactive video/audio/telecommunication technology, the visit will not be recorded withoutthe express consent of both the provider and the patient, and that there are some limitations compared to bxlu-he-zuho evaluations. We elected to proceed. documented in this encounterLake[facility]03-19-2024 History of Present illness Narrative* Fred Chavez MD - 10/18/2023 2:24 PM EDT Maternal- Medicine Patient had follow-up telehealth visit scheduled. At a satellite office she had ultrasound which will be read by 1 of my colleagues. The patient did not keep her appointment (we believe that she was uncertain she had a visit). Our office will reach out in arrange an un linked telehealth rescheduledvisit. Fred Chavez MD Professor, [facility] (we called the patient ourselves and were not able to successfully connect with her) documented in this encounterLakeHealth Beachwood [facility] Center02-22-2024 History of Present illness Narrative* Rossy Carrington RN - 09/22/2023 10:00 AM EST Headache/epigastric pain/blurry vision/swelling? No Cramping/contractions? No Abnormal vaginal discharge? No Spotting/vaginal bleeding? No Loss of fluid like your water may have broken? No Cats in the home? No Do you change the litter box? N/A Flu vaccine? No Genetic testing done this here or other office? Yes Have you been seen here at [facility] in a previous ? No Recent ER visits or hospitalizations? No Bring blood sugar log or meter with you today? (Please bring them with you for every visit at [facility]) N/A Traveled outside the country in the past 6 month No Any concerns that you would like me to mention to the provider today? No * Héctor Aguilar MD - 09/22/2023 10:00 AM EST REASON FOR CONSULTATION: Maternal essential hypertension. HISTORY [...] total) by mouth in the morning., Disp: ,Rfl: SYNTHROID 137 mcg tablet, , Disp: , [...] TO THE AFFECTED AREA(S) EVERY OTHER DAY, Disp:, Rfl: hydrOXYzine (VISTARIL) 25 mg capsule, TAKE [...] and the other consultants, we search on [employer] and all the available care everywhere epic I did review all the imaging studies of the patient available on EMR, ordered by the primary care physician and the other marketing database consultant HABITS: Patient activity no restrictions, diet [...] kg (312 lb 9.6 oz) LMP 03/28/2023 BMI44.85 kg/m . Gravid abdomen, Respirations not labored. [...] to Jose s thyroiditis. If this occurs, therecan be antibodies circulating in the patient which cross the placenta and act on the fetus. The fetus can then develop a goiter. Although this is rare, but can be found if the maternal circulating antibodies are elevated. Some of the complications in associated with untreated or partially treated hypothyroidism are preeclampsia, abruption, and low weight. When the maternal free T4 is verylow in , the infant is at risk for impaired psychomotor function and a significantly lowerIQ. Therefore, recommendations are to maintain serum TSH [...] for completion of targeted anatomy at our [facility] site. 5. Serial growth ultrasounds every 4 weeks after 24 weeks gestation at her OB office. 6. Patient is a candidate for testing based on chronic hypertension criteria. 7. Delivery at 38 weeks gestation at her local hospital via repeat . Patient interested inbilateral tubal ligation as well. 8. Patient is a candidate for prophylactic Lovenox therapy 40 mg subQ daily for the duration of thehospital stay after . DISPOSITION: At this point the patient is in complete care of her advanced practice professional. Patient does have ultrasound office visit scheduled with us Thank you for allowing me to participate in Tiffani Allison . If there any questions please do not hesitate to contact us. Sincerely, HÉCTOR AGUILAR MD documented in this encounterLakeHealth Beachwood [facility] Center02-15-2024 History of Present illness Narrative* REMY Valdes - 09/15/2023 11:20 AM EST Reason for Appointment: Patient ID: Tiffani Allison is a 37 y.o. female who presents for Routine Visit Patient presents today for Return OB appointment. Current Medications: has a current medication list which includes the following prescription(s): iron chews pediatric, chlorhexidine, diclofenac, meclizine, melatonin, multi vitamin daily, ondansetron odt, amlodipine, bupropion xl, diphenhydramine, escitalopram, ferrous sulfate, fluocinonide, levothyroxine, melatonin, m etoprolol succinate xl, omeprazole, gummies, and synthroid. Medical History: Active Ambulatory Problems Diagnosis Date Noted Anxiety with depression 08/18/2023 Screening, , for anatomic survey 08/18/2023 Second trimester 08/18/2023 Resolved Ambulatory Problems Diagnosis Date Noted No Resolved Ambulatory Problems Past Medical History: Diagnosis Date COVID-19 2019 Depression with anxiety GERD (gastroesophageal reflux disease) HTN (hypertension) ([facility]) Hypothyroidism (acquired) ([facility]) Iron deficiency anemia Kidney stones Migraines (CMS/HCC) Seizure ([facility]/HCC) 2019 Family History Problem Relation Name Age [...] hour glucose order to have done at [facility]. Follow Up: Patient is to return [...] advised of complications including PE and . Ptverbalized understanding and will discuss as delivery is closer. Follow Up: Patient is to return to office in 4 week for routine OB appointment. Documented by Rosamaria Conrad MA on behalf of: REMY Valdes documented in this encounterSt. Louis VA Medical [id number] Miscellaneous Notes* Telephone Encounter - Janae Jiménez - 08/19/2023 10:42 AM EST LEFT A MESSAGE TO SCHEDULE USN AND CONSULT. 08/19/2023 1043 documented in this encounterKindred Hospital LimaIEV [id number] Telephone encounter Note* Telephone Encounter - Janae Jiménez - 08/19/2023 10:42 AM EST LEFT A MESSAGE TO SCHEDULE USN AND CONSULT. 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 Calcium-fortified means [...] ?Spinach (cooked), rhubarb, beets, sweet potatoes, and Egyptian chard. ?Peanuts. ?Potato chips, sinhala fries, and baked potatoes with skin on. ?Nuts and nut products. ?Chocolate. If you regularly take a diuretic medicine, make sure to eat at least 1 or 2 servings of fruits or vegetables that are high in potassium each day. These include: ?Avocado. ?Banana. ?Peck, prune, carrot, or tomato juice. ?Baked potato. [...] magnesium, fish oil, or vitamin B6. Take ukjp-umm-szdzqdx and prescription medicines only as told by [...] Casseroles. Pizza. Lasagna. Frozen meals. Potato chips. Tajik fries. The items listed above may not [...] provider. Document Revised: 03/29/2022 Document Reviewed: 03/29/2022 [employer] Patient Education 2022 [employer] [place]. Follow Up Care 12/28/2022 12:57:40 With:Alyson Chiu MD, URL, URO Address: When:Within 6 Month(s) Comments:irasema [facility]AMILE[facility] 06-19-2023 Evaluation note* Encounter Date Diagnosis Assessment Notes Treatment Notes Treatment Clinical Notes Dec, Iron deficiency anemia (ICD-10 - D50.9) Will proceed with EGD Will request recent lab work done at [place]. Dec, GERD (gastroesophageal reflux disease) (ICD-10 - K21.9) Patient to continue on Omeprazole 40mg Dec, Diarrhea (ICD-10 - R19.7) Will proceed with Colonoscopy. [employer] Other Evaluation + Plan note Future Appointments Appointment Date:08/03/2023 10:00:00 AM Scheduled Provider:Alyson Chiu MD Location:[facility] Appointment Type:URO Office Visit [facility] evaluation + Plan note Future Appointments Appointment Date:08/03/2023 10:00:00 AM Scheduled Provider:Alyson Chiu MD Location:[facility] Appointment Type:URO Office Visit Diagnostic Tests Pending * Calculi Analysis [facility] Diagnosis Onset Date Resolution Status Iron deficiency anemia [facility] Work Phone: Evaluation note* Diagnosis Second trimester state, incidental Diabetes mellitus screening Screening for diabetes mellitus 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Evaludel[facility] note* Diagnosis Essential hypertension affecting in second trimester- Primary documented in this encounter [facility] CenterEval[facility]* Diagnosis Pre-existing essential hypertension during in second trimester- Primary Advanced maternal age in multigravida, second trimester Hypothyroid in , antepartum documented in this encounter [facility]* Diagnosis Essential hypertension affecting in second trimester- Primary documented in this encounter [facility] CenterEvaluation noteNo assessment information available [facility] Work Phone: evaluation note* Diagnosis Onset Date Resolution Status Anxiety acute Depression acute Dry scalp acute Hernia acute Hypothyroid acute Iron deficiency anemia acute Tachycardia acute [facility] Work Phone: evaluation note* Diagnosis Gastroesophageal reflux disease, unspecified whether esophagitis present- Primary Incisional hernia, without obstruction or gangrene Incisional hernia without mention of obstruction or gangrene documented in this encounter [facility]* Diagnosis Gastroesophageal reflux disease, unspecified whether esophagitis present documented in this encounter [facility]* Diagnosis Onset Date Resolution Status Anxiety acute Depression acute Dry scalp acute GERD (gastroesophageal reflux disease) acute Hernia acute HTN (hypertension) acute Hypothyroid acute Iron deficiency anemia acute Tachycardia acute [facility] Work Phone: Evaluation note* Diagnosis Onset Date Resolution Status Anxiety acute Depression acute Dry scalp acute GERD (gastroesophageal reflux disease) acute Hernia acute HTN (hypertension) acute Hypothyroid acute Iron deficiency anemia acute Tachycardia acute HTN (hypertension) acute Inappropriate sinus tachycardia acute Palpitations noneactive [facility] Work Phone: Evaluation note* Diagnosis Body mass index 40.0-44.9, adult (HCC)- Primary Body Mass Index 40.0-44.9, adult documented in this encounter [facility]* Diagnosis Onset Date Resolution Status Anxiety acute Depression acute Dry scalp acute GERD (gastroesophageal reflux disease) acute Hernia acute HTN (hypertension) acute Hypothyroid acute Iron deficiency anemia acute Tachycardia acute HTN (hypertension) acute Inappropriate sinus tachycardia acute Palpitations noneactive Anxiety acute Depression acute Right ankle injury acute Right ankle pain acute [facility] Work Phone: Evaluation note* Diagnosis Morbid obesity due to excess calories (HCC)- Primary S/P bariatric surgery Bariatric surgery status Preoperative testing Preoperative examination, unspecified Snoring Other dyspnea and respiratory abnormality Other fatigue Morbid obesity with BMI of 40.0-44.9, adult (HCC) Morbid obesity [facility] Diagnosis Preoperative examination- Primary Preoperative examination, unspecified [facility] Diagnosis H/O gastric sleeve- Primary Obesity, Class III, BMI 40-49.9 (morbid obesity) (HCC) Morbid obesity Dietary counseling and surveillance Dietary surveillance and counseling documented [facility] this encounter [facility] Diagnosis Morbid obesity due to excess calories (HCC) S/P bariatric surgery Bariatric surgery status Preoperative testing Preoperative examination, unspecified Snoring Other dyspnea and respiratory abnormality Other fatigue Morbid obesity with BMI of 40.0-44.9, adult (HCC) Morbid obesity documented in this encounter [facility] note* Diagnosis Pain and swelling of right lower leg- Primary Ankle joint instability, right Pain of right calf documented in this encounter [facility]* Diagnosis 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 Moderate right ankle sprain, sequela documented in this encounter [facility] HealthcareEvaluation note* Diagnosis Ankle joint instability, right- Primary Sinus tarsi syndrome of right ankle Posterior tibial tendinitis of right lower extremity documented in this encounter [facility] N[facility]ative - Reported* Type Description Date Medical History Esophageal reflux Medical History anxiety Medical History chronic depression Medical History high blood pressure Medical History low thyroid Medical History menieres disease Medical History kidney stones Medical History iron deficiency anemia Surgical History C section Surgical History gastric sleeve Surgical History cholecystectomy Surgical History appendectomy Surgical History left knee meniscus Hospitalization History see above [employer] Other Hospital course Narrative No data available for this section [facility] Hospital Discharge instructions No data available for this section [facility] Additional Instructions DISCHARGE INSTRUCTIONS FOR [...] if you have any problems. -Office number [phone] Phone: InstructionsNot on filedocumented in this encounter [facility] this [facility] filedocumented in this encounter [facility] filedocumented in this encounter [facility] filedocumented in this encounter [facility] filedocumented in this [facility] No data available for this section [facility] Summary Purpose Family History No Family History Records Found Relationship Condition Age at Onset Recorded Date/T jose j Not Specified Hypertension Unknown Diabetes mellitus Unknown Anxiety and depression Unknown father Myocardial infarction Unknown grandparent Crohn's disease Unknown grandparent Diabetes mellitus Unknown Relationship Condition Age at Onset Recorded Date/T jose j Not Specified Hypertension Unknown Diabetes mellitus Unknown Anxiety and depression Unknown father Myocardial infarction Unknown grandparent Crohn's disease Unknown grandparent Diabetes mellitus Unknown grandparent History of stroke Unknown Not Specified Diabetes mellitus Unknown Hypertension Unknown Relationship Condition Age at Onset Recorded Date/T jose j mother Hypertension Unknown Diabetes mellitus Unknown Anxiety and depression Unknown father Myocardial infarction Unknown grandparent Crohn's disease Unknown grandparent Diabetes mellitus Unknown grandparent History of stroke Unknown mother Diabetes mellitus Unknown Hypertension Unknown Relationship Condition Age at Onset Recorded Date/T jose j mother Hypertension Unknown Diabetes mellitus Unknown Anxiety and depression Unknown father Myocardial infarction Unknown Heart disease Unknown grandparent Crohn's disease Unknown grandparent Diabetes mellitus Unknown grandparent History of stroke Unknown Advance Directives No Advanced Directives Records Found Advance Directive Response Recorded Date/ Time Advance Directives No February 27 1:14pm Advance Directive Response Recorded Date/ Time Advance Directives No February 27 12:14pm Chief Complaint and Reason for Visit Chief Complaint GERD,LARISSA, Diarrhea Reason for Visit Iron deficiency anem ia Chief Complaint Unknown Chief Complaint Unknown est care Reason for Visit Anxiety Depression Dry scalp Hernia Hypothyroid Iron deficiency anemia Tachycardia Chief Complaint est care TACHYCARDIA, UNSPECIFIED Reason for Visit Anxiety Depression Dry scalp GERD (gastroesophageal reflux disease) Hernia HTN (hypertension) Hypothyroid Iron deficiency anemia Tachycardia Chief Complaint est care TACHYCARDIA, UNSPECIFIED Reason for Visit Anxiety Depression Dry scalp GERD (gastroesophageal reflux disease) Hernia HTN (hypertension) Hypothyroid Iron deficiency anemia Tachycardia HTN (hypertension) Inappropriate sinus tachycardia Palpitations Chief Complaint est care TACHYCARDIA, UNSPECIFIED r00.0 Mental Health Reason for Visit Anxiety Depression Dry scalp GERD (gastroesophageal reflux disease) Hernia HTN (hypertension) Hypothyroid Iron deficiency anemia Tachycardia HTN (hypertension) Inappropriate sinus tachycardia Palpitations Anxiety Depression Right ankle injury Right ankle pain Chief Complaint Admit Date TACHYCARDIA, UNSPECIFIED May 10 024 10:43am r00.0 May 10, 2024 1 0:45am Mental Health May 24, 2024 9 :57am CC Adult Risk Stratification June 152023 9:57am 4 week f/u:LVM to R/S 05/31-HIGH RISK No vember 2023 10:02am Reason for Visit Admit Date HTN (hypertension) May 10, 2024 1 0:43am Inappropriate sinus tachycardia May 10, 2024 10:43am Palpitations May 10, 2024 1 0:43am Anxiety May 24, 2024 9 :57am Depression May 24, 2024 9 :57am Right ankle injury May 24, 2024 9 :57am Right ankle pain May 24, 2024 9 :57am Anxiety June 19, 2024 10:02am Depression June 19, 2024 10:02am Chief Complaint Admit Date Mental Health May 24, 2024 9 :57am CC Adult Risk Stratification June 152023 9:57am 4 week f/u:LVM to R/S 05/31-HIGH RISK No vember 2023 10:02am 6 months f/u/mental health August 15, 2024 10:51am Reason for Visit Admit Date Anxiety May 24, 2024 9 :57am Depression May 24, 2024 9 :57am Right ankle injury May 24, 2024 9 :57am Right ankle pain May 24, 2024 9 :57am Anxiety June 19, 2024 10:02am Depression June 19, 2024 10:02am Anxiety August 15, 2024 1 0:51am Depression August 15, 2024 1 0:51am Obesity, Class III, BMI 40-49.9 (morbid obesity) August 15, 2024 10:51am Reason for Referral Specialty Diagnoses / Procedures Referred By Contac t Referred To Contact Diagnoses Morbid obesity due to excess calories (HCC) S/P bariatric surgery Preoperative testing Snoring Other fatigue Morbid obesity with BMI of 40.0-44.9, adult (HCC) Procedures CONSULT TO SLEEP MEDICINE - ADULT OFFICE/OUTPATIENT [facility] 60 MINUTES Renetta Ruano MD [address] [place] [address] Referral ID Status Reason Start Date Expiration Date Visits Requested Visits Authorized [id number] Pending Review PCP Requested Referral 05/24/2025 1 1 Specialty Diagnoses / Procedures Referred By Contac t Referred To Contact [facility] Diagnoses Morbid obesity due to excess calories (HCC) S/P bariatric surgery Preoperative testing Snoring Other fatigue Morbid obesity with BMI of 40.0-44.9, adult (HCC) Procedures HOME SLEEP APNEA TEST (HSAT) SLEEP STD AIRFLOW HRT RATE&O2 SAT EFFORT UNATT Renetta Ruano MD [address] [place] [address] [facility] [place] [address] [place] [address] Referral ID Status Reason Start Date Expiration Date Visits Requested Visits Authorized [id number] New Request Auto-Generat ed Referral 05/24/2025 1 1 Specialty Diagnoses / Procedures Referred By Contac t Referred To Contact GENERAL SURGERY Diagnoses Gastroesophageal reflux disease, unspecified whether esophagitis present Procedures CONSULT BARIATRIC[facility]IC [facility] OFFICE/OUTPATIENT [facility] 60 MINUTES Rocio Jeff MD [address] [place] [address] Raine Grissom MD [facility] [place] [address] Referral ID Status Reason Start Date Expiration Date V isits Requested Visits Authorized [id number] Authorized 04/18/2024 07/31/2024 1 1 Specialty Diagnoses / Procedures Referred By Contac t Referred To Contact Maternal and Medicine Diagnoses Pre-existing essential hypertension during in second trimester Advanced maternal age in multigravida, second trimester Hypothyroid in , antepartum Procedures US MFM with or without consult Héctor Aguilar MD [address] [place] [address] [facility] Maternal Med [address] [place] [address] Referral ID Status Reason Start Date Expiration Date V isits Requested Visits Authorized [id number] Pending Review 09/22/2023 09/21/2024 1 1 Additional Source Comments INFORMATION SOURCE (unrecogn ized section and content) DATE CREATED AUTHOR 01/07/2023 [facility] DATE CREATED AUTHOR AUTHOR'S ORGANIZ ATION 10/19/2023 [facility] DATE CREATED AUTHOR AUTHOR'S ORGANIZ ATION 11/03/2023 [facility] DATE CREATED AUTHOR AUTHOR'S ORGANIZ ATION 01/06/2024 [facility] EPIC DATE CREATED AUTHOR AUTHOR'S ORGANIZ ATION 03/14/2024 [facility] DATE CREATED AUTHOR AUTHOR'S ORGANIZ ATION 05/12/2024 [facility] DATE CREATED AUTHOR AUTHOR'S ORGANIZ ATION 08/20/2024 [facility] EPIC DATE CREATED AUTHOR AUTHOR'S ORGANIZ ATION 08/20/2024 [facility] REASON FOR VISIT (unrecogniz ed section and content) Reason Comments Routine Visit Reason Comments Advanced Maternal Age Chronic Hypertension Hypothyroidism Reason Comments Patient Update Reason Comments Consult Specialty Diagnoses / Procedures Referred By Jimbo t Referred To Contact General Surgery / GENERAL SURGERY Diagnoses Abdominal wall hernia Ventral wall mass & abdominal wall hernia Procedures OFFICE/OUTPATIENT NEW SF MDM 15 MINUTES OFFICE/OUTPATIENT NEW LOW MDM 30 MINUTES OFFICE/OUTPATIENT NEW MODERATE MDM 45 MINUTES OFFICE/OUTPATIENT NEW HIGH MDM 60 MINUTES NEW DDI PATIENT Self Rocio Jeff MD [address] [place] [id number] Referral ID Status Reason Start Date Expiration Date Visits Re quested Visits Authorized [id number] Closed 03/26/2024 07/31/2024 1 1 Reason Comments New Patient Specialty Diagnoses / Procedures Referred By Rickac t Referred To Contact GENERAL SURGERY Diagnoses Gastroesophageal reflux disease, unspecified whether esophagitis present Procedures CONSULT BARIATRIC[facility]IC [facility] OFFICE/OUTPATIENT NEW HIGH MDM 60 MINUTES Rocio Jeff MD [address] [facility] [place] [address] Raine Grissom MD [address] [place] [address] Referral ID Status Reason Start Date Expiration Date Visits Re quested Visits Authorized [id number] Closed 04/18/2024 07/31/2024 1 1 Reason Comments Established Patient Specialty Diagnoses / Procedures Referred By Jimbo t Referred To Contact GENERAL SURGERY Diagnoses follow up Procedures follow up Raine Grissom MD [address] [place] [address] [address] [place] [address] Referral ID Status Reason Start Date Expiration Date V isits Requested Visits Authorized [id number] Closed OON/Self Pay Override Clearance Not Met -Financial Clearance Bypassed 05/14/2024 08/22/2025 1 1 Reason Comments Patient Update pt update Reason Comments New Patient Specialty Diagnoses / Procedures [facility] Referred To Contact Diagnoses Gastro-esophageal reflux disease without esophagitis Procedures NEW PATIENT VISIT LEVEL 1 [place] [address] [place] [address] [facility] [place] [address] Referral ID Status Reason Start Date Expiration Date Visits Requested Visits Authorized [id number] Authorized OON/Self Pay Override 08/01/2023 07/31/2024 99 99 Reason Comments Patient Education Assessment Specialty Diagnoses / Procedures Referred By [facility] Referred To Contact Diagnoses Gastro-esophageal reflux disease without esophagitis Procedures NEW PATIENT VISIT LEVEL 1 [place] [address] [place] [address] [facility] Metabolic [place] [id number] Specialty Diagnoses / Procedures Referred By [facility] Referred To Contact XR IMAGING Diagnoses Morbid obesity due to excess calories (HCC) [E66.01] S/P bariatric surgery [Z98.84] Preoperative testing [Z01.818] Snoring [R06.83] Other fatigue [R53.83] Morbid obesity with BMI of 40.0-44.9, adult (HCC) [E66.01, Z68.41] Procedures XR CHEST 2V FRONTAL/LAT Renetta Ruano MD [address] [place] [address] Xr Imaging [place] [address] Referral ID Status Reason Start Date Expiration Date Visits Requested Visits Authorized [id number] New Request OON/Self Pay Override 06/08/2024 09/16/2025 1 1 Reason Comments Pain Reason Comments Pain Patient Care team informatio n (unrecognized section and content) Team Status: Active Member Role Status Dates Wilber More , [facility] Primary Care Provider Active Team Status: Inactive Member Role Status Dates Denys Gallego MD Attending Provider Active Wilber More , [facility] Primary Care Provider Active [employer] Relationship Specialty Start Date End Date No Pcp, [place] [address] PCP - General Family Medicine 10/18/23 [employer] Relationship Specialty Start Date End Date No Pcp, [place] [address] PCP - General Family Medicine 10/18/23 Team Status: Inactive Member Role Status Dates Wilber More , [facility]- Primary Care Provider Active Start: December 12, 2023 End: December 12, 2023 Adrian Kerr Attending Provider Active Start: Yissel marie 2023 End: December 12, 2023 Team Status: Inactive Member Role Status Dates Wilber More , [facility] Primary Care Provider Active Start: December 12, 2023 End: December 12, 2023 Adrian Kerr DO Attending Provider Active Start : December 12, 2023 End: December 12, 2023 Team Status: Inactive Member Role Status Dates Wilber More , [facility] Primary Care Provider Active Start: February 28, 2024 End: February 28, 2024 Elisabeth Beckman APRN [employer] Attending Provider Act chano Start: February 28, 2024 End: February 28, 2024 [employer] Relationship Specialty Start Date End Date Adrian Kerr DO [facility] [place] [address] Referring Vacuum Drier Tender 03/16/24 [employer] Relationship Specialty Start Date End Date Adrian Kerr DO [facility] [place] [address] Referring Vacuum Drier Tender 03/16/24 [employer] Relationship Specialty Start Date End Date Adrian Kerr DO [facility] [place] [address] Referring Vacuum Drier Tender 03/16/24 Team Status: Inactive Member Role Status Dates Wilber More , [employer] Primary Care Provider Active Start: May 10, 2024 End: May 10, 2024 Felipe Quiñones MD Attending Provider Activ e Start: May 10, 2024 End: May 10, 2024 Elisabeth Beckman APRN [employer] Referring Provider Active Start: May 10, 2024 End: May 10, 2024 Team Status: Active Member Role Status Dates Wilber More , [employer] Primary Care Provider Active Start: May 10, 2024 Felipe Quiñones MD Attending Provider Activ e Start: May 10, 2024 Team Status: Inactive Member Role Status Dates Wilber More , [employer] Primary Care Provider Active Start: May 10, 2024 End: May 10, 2024 Felipe Quiñones MD Attending Provider Activ e Start: May 10, 2024 End: May 10, 2024 [employer] Relationship Specialty Start Date End Date Adrian Kerr, DO [address] [place] [address] Referring Vacuum Drier Tender 03/16/24 Weapons Officer [employer] Relationship Specialty Start Date End Date Adrian Kerr, DO [address] [place] [address] Referring Vacuum Drier Tender 03/16/24 Team Status: Active Member Role Status Dates Elisabeth Beckman APRN [employer] Primary Care Provider Active Team Status: Inactive Member Role Status Dates Elisabeth Beckman APRN [employer] Primary Care Provider, Attending Provider Active Start: May 24, 2024 End: May 24, 2024 [employer]apons [employer] Relationship Specialty Start Date End Date Adrian Kerr, DO [address] [place] [address] Referring Vacuum Drier Tender 03/16/24 Weapons Officer [employer] Relationship Specialty Start Date End Date Adrian Kerr DO [facility] [address] [place] [address] Referring Vacuum Drier Tender 03/16/24 Weapons Officer [employer] Relationship Specialty Start Date End Date Adrian Kerr DO [facility] [place] [address] Referring Vacuum Drier Tender 03/16/24 Weapons Officer [employer] Relationship Specialty Start Date End Date Adrian Kerr DO [facility] [address] [place] [address] Referring Vacuum Drier Tender 03/16/24 Team Status: Active Member Role Status Dates Elisabeth Beckman APRN [employer] Primary Care Provider, Attending Provider Active Start: June 15, 2024 Team Status: Inactive Member Role Status Dates Elisabeth Beckman APRN [employer] Primary Care Provider, Attending Provider Active Start: June 19, 2024 End: June 19, 2024 [employer] Relationship Specialty Start Date End Date Elisabeth Beckman NP [address] [facility] [place] [address] PCP - General Family Medicine 06/15/24 [employer]apons [employer] Relationship Specialty Start Date End Date Elisabeth Beckman NP [address] [facility] [address] PCP - General Family Medicine 06/15/24 Weapons Officer [employer] Relationship Specialty Start Date End Date Elisabeth Beckman NP [address] [facility] [place] [address] PCP - General Family Medicine 06/15/24 Team Status: Inactive Member Role Status Dates Elisabeth Beckman APRN [employer] Primary Care Provider, Attending Provider Active Start: August 15, 2024 End: August 15, 2024 Weapons [employer] Relationship Specialty Start Date End Date Elisabeth Beckman NP [address] [place] [address] PCP - General Family Medicine 06/15/24 Goals (unrecognized section and content) Goals may be documented in a n alternate section Source Comments (unrecognize d section and content) In the event this informatio n is protected by the Federal Confidentiality of Alcohol and Drug Abuse Patient Records regulations: The Federal rules restrict any use of the information to criminally investigate or prosecute any alcohol or drug abuse patient.[facility] the event this information is protected by the Federal Confidentiality of Alcohol and Drug Abuse Patient Records regulations: The Federal rules restrict any use of the information to criminally investigate or prosecute any alcohol or drug abuse patient.[facility] the event this information is protected by the Federal Confidentiality of Alcohol and Drug Abuse Patient Records regulations: The Federal rules restrict any use of the information to criminally investigate or prosecute any alcohol or drug abuse patient.[facility] the event this information is protected by the Federal Confidentiality of Alcohol and Drug Abuse Patient Records regulations: The Federal rules restrict any use of the information to criminally investigate or prosecute any alcohol or drug abuse patient.[facility] the event this information is protected by the Federal Confidentiality of Alcohol and Drug Abuse Patient Records regulations: The Federal rules restrict any use of the information to criminally investigate or prosecute any alcohol or drug abuse patient.[facility] the event this information is protected by the Federal Confidentiality of Alcohol and Drug Abuse Patient Records regulations: The Federal rules restrict any use of the information to criminally investigate or prosecute any alcohol or drug abuse patient.[facility] the event this information is protected by the Federal Confidentiality of Alcohol and Drug Abuse Patient Records regulations: The Federal rules restrict any use of the information to criminally investigate or prosecute any alcohol or drug abuse patient.[facility] the event this information is protected by the Federal Confidentiality of Alcohol and Drug Abuse Patient Records regulations: The Federal rules restrict any use of the information to criminally investigate or prosecute any alcohol or drug abuse patient.[facility] the event this information is protected by the Federal Confidentiality of Alcohol and Drug Abuse Patient Records regulations: The Federal rules restrict any use of the information to criminally investigate or prosecute any alcohol or drug abuse patient.[facility] the event this information is protected by the Federal Confidentiality of Alcohol and Drug Abuse Patient Records regulations: The Federal rules restrict any use of the information to criminally investigate or prosecute any alcohol or drug abuse patient.[facility] the event this information is protected by the Federal Confidentiality of Alcohol and Drug Abuse Patient Records regulations: The Federal rules restrict any use of the information to criminally investigate or prosecute any alcohol or drug abuse patient.[facility] Hospital[facility] the event this information is protected by the Federal Confidentiality of Alcohol and Drug Abuse Patient Records regulations: The Federal rules restrict any use of the information to criminally investigate or prosecute any alcohol or drug abuse patient.[facility] FOR RECORDS PERTAINING TO PATIENTS WHO ARE [...] BE BASED ON THE PRIMARY CLINICAL RECORDS. [facility] [employer] [facility]. provides no warranty or guarantee of the accuracy or completeness of information in this document.
[2024-08-22 10:30] VITALS: BP 133/84; PULSE 80; TEMP 35.6; O2SAT 97
[2024-08-22] MEDS: FERUMOXYTOL 510 MG in 0.9 % SODIUM CHLORIDE 100 ML 234 MG IV (10:44)
[2024-08-29 10:30] VITALS: BP 128/85; PULSE 84; TEMP 36.3; O2SAT 98
[2024-08-29] MEDS: FERUMOXYTOL 510 MG in 0.9 % SODIUM CHLORIDE 100 ML 234 MG IV (10:46)
--- NOTE | 2024-08-29 10:53 | PC.NURSE ---
1046: IV Murphy initiated at this time.
== END 2024-08-31 23:59 | disposition home or self-care (01) ==
LOC: HEMC 07:36
PROVIDERS: PCP Nurse Practitioner Family; Visit Provider Internal Medicine Hematology & Oncology
DX: D50.9 Iron deficiency anemia, unspecified (principal); D64.9 Anemia, unspecified; D72.829 Elevated white blood cell count, unspecified; K90.9 Intestinal malabsorption, unspecified; Z98.84 Bariatric surgery status; Z98.51 Tubal ligation status; Z90.49 Acquired absence of other specified parts of digestive tract; Z87.891 Personal history of nicotine dependence; E55.9 Vitamin D deficiency, unspecified
CPT/HCPCS: 96365; G0463; Q0138

== ENCOUNTER 2025-05-08 12:34 | Outpatient (OUT) | payer OTHER, SELFPAY ==
--- OUTSIDE RECORDS SUMMARY | 2025-05-08 12:43 | XMS_ITS | CCD ---
Author Organization [facility] CliniSyma Care Team Providers Care Reed Press Feeder Name Role Phone KWAN ., LUKE Admitting Unavailable KWAN ., LUKE Attending Unavailable HAY ., DR ROBERTO Consulting Unavailable SHAMMO, WILBER Primary Care Unavailable ROSEYE .ALYSON Consulting Unavailable LOMBARDO, LINDA Consulting Unavailable ITKINALEXA Consulting Unavailable KWAN ., LUKE Consulting Unavailable SHAMMO, WILBER Attending Unavailable SHAMMO, WILBER Admitting Unavailable SHAMMO, WILBER Consulting Unavailable SHAMMO, WILBER Attending Unavailable SHAMMO, WILBER Admitting Unavailable SHAMMO, WILBER Primary Care Unavailable SHAMMO, WILBER Consulting Unavailable Denys Gallego Unavailable SHAMMO, WILBER TOMASA Primary Care Physician MD Denys Gallego Attending Provider Shammo, [facility]- Wilber T Primary Care Provider [phone] Unavailable Primary Care Provider Unavailabl e MYRIAM, ADRIAN R Referring Unavailable NO PCP, NO PCP Primary Care Unavailable JEFFHÉCTOR Attending Unavailable MYRIAM, ADRIAN R Referring Unavailable NO PCP, NO PCP Primary Care Unavailable MYRIAM, ADRIAN R Referring Unavailable JEFF, HÉCTOR Attending Unavailable MYRIAM, ADRIAN R Referring Unavailable Shammo, IMMIGRATION SPECIALIST-BC Wilber T Primary Care Provider Myriam, Adrian Attending Provider [phone] MYRIAM, ADRIAN Attending Unavailable DOMINIC, KASSANDRA Attending Unavailable MYRIAM, ADRIAN Attending Unavailable DOMINIC, KASSANDRA Attending Unavailable MYRIAM, ADRIAN Attending Unavailable DOMINIC, KASSANDRA Attending Unavailable MYRIAM, ADRIAN Attending Unavailable DOMINIC, KASSANDRA Attending Unavailable MYRIAM, ADRIAN Attending Unavailable DOMINIC, KASSANDRA Attending Unavailable DOMINIC, KASSANDRA Attending Unavailable Myriam, DO Adrian Attending Provider ELISABETH BECKMAN Primary Care Physician SHAMMO, WILBER Primary Care Unavailable ELISABETH BECKMAN Referring Unavailab King [place] Attending Unavailable SHAMMO, WILBER Primary Care Unavailable SHAMMO, WILBER Primary Care Unavailable Alyson Chiu Attending Unavailable SHAMMO, WILBER Primary Care Unavailable Myriam DO, Adrian R Unavailable Myriam DO, Adrian R Unavailable Myriam, Adrian Admitting Unavailable Shammo, Wilber T Primary Care Unavailable Myriam, Adrian Attending Unavailable Felipe Quiñones Attending Felipe Pope Admitting Unavai lable Shammo, Wilber T Primary Care Unavailable Shammo, IMMIGRATION SPECIALIST-BC Wilber T Primary Care Provider [phone] MD Felipe Quiñones Attending Provider Shammo [facility], Wilber T Primary Care Provider [phone] Felipe Quiñones MD Attending Provider Anaisacher SEAT TRIMMER, Elisabeth Sears Primary Care Provider Unavailable Primary Care Provider Unavailabl e No Pcp, No Pcp Primary Care Provider Unavailabl e Karuna SEAT TRIMMER, Elisabeth Sears Primary Care Provider SELF Referring Unavailable TOMER, ROCIO Attending Unavailable TOMER, AJITA Referring Unavailable PRAVEENA, XIAOXI Attending Unavailable PRAVEENA, XIAOXI Referring Unavailable PRAVEENA, XIAOXI Attending Unavailable PRAVEENA, XIAOXI Referring Unavailable HELM, SHARON Attending Unavailable PRAVEENA, XIAOXI Referring Unavailable HELM, SHARON Attending Unavailable GORTY, RENETTA A Referring Unavailable HELM, SHARON Referring Unavailable ROHRBACHER, ELISABETH A Primary Care Unavailab le MILES, GINGER Referring Unavailable ROHRBACHER, ELISABETH A Primary Care Unavailab le MILES, GINGER Referring Unavailable PRAVEENA, XIAOXI Referring Unavailable GORTY, RENETTA A Attending Unavailable TOMER, AJITA Attending Unavailable TOMER, AJITA Admitting Unavailable ROHRBACHER, ELISABETH A Primary Care Unavailab le MILES, GINGER Referring Unavailable SCHEMAN MAKENNA, COLETTE Attending Unavaila ble PRAVEENA, XIAOXI Referring Unavailable GORTY, RENETTA A Referring Unavailable ROHRBACHER, ELISABETH A Primary Care Unavailab le JAYAJAIMIE LAUREN Referring Unavailable MILES, GINGER Attending Unavailable ROHRBACHER, ELISABETH A Primary Care Unavailab le TOMER, AJITA Referring Unavailable MILES, GINGER Attending Unavailable ROHRBACHER, ELISABETH A Primary Care Unavailab le PRAVEENA, XIAOXI Referring Unavailable JERALD SOUZA Attending Unavailable ROHRBACHER, ELISABETH A Primary Care Unavailab le PRAVEENA, XIAOXI Referring Unavailable PRAVEENA, RAINE Attending Unavailable ROHRBACHER, ELISABETH A Primary Care Unavailab le PRAVEENA, XIAOXI Referring Unavailable DELPRAYESSI Attending Unavailable ROHRBACHER, ELISABETH A Primary Care Unavailab le PRAVEENA, XIAOXI Referring Unavailable PRAVEENA, XIALYDIAI Attending Unavailable ROHRBACHER, ELISABETH A Primary Care Unavailab le TOMER, AJITA Referring Unavailable MILES, GINGER Attending Unavailable PRAVEENA, XIAOXI Referring Unavailable NADIALALA Attending Unavailable ROHRBACHER, ELISABETH A Primary Care Unavailab le MILES, GINGER Referring Unavailable GORTY, RENETTA A Referring Unavailable BROWN, RAN Sears Attending Unavailable BROWN, RAN Sears Attending Unavailable BROWN, RAN A Attending Unavailable BROWN, RAN A Attending Unavailable BROWN, RAN A Attending Unavailable MYRIAMADRIAN Attending Unavailable HILLS, AFRICA D Attending Unavailable ROHRBACHER, ELISABETH A Referring Unavailab le HILLS, AFRICA D Referring Unavailable HILLS, AFRICA D Referring Unavailable HILLS, AFRICA D Attending Unavailable HILLS, AFRICA D Referring Unavailable HILLS, AFRICA D Referring Unavailable HILLS, AFRICA D Attending Unavailable HILLS, AFRICA D Referring Unavailable Rohrbacher Elisabeth GUTIERREZ Primary Care Provider Rohrbacher Elisabeth GUTIERREZ Attending Provider Allergies Allergy Classification Reported Allergen(s) Allergy Type Date of Onset Reaction(s) Facility (3 sources) Penicillin Drug Allergy 3 Unknown [facility] (20 sources) Penicillins; Translations: [penicillins] Allergy to substance 3 Anaphylaxis (disorder), Anaphylaxis, Unknown, Cough, Hives, Itching, Rash, Shortness of Breath, Swelling [facility] (20 sources) Penicillin G Drug Allergy 3 Unknown [facility] (20 sources) Topiramate; Translations: [TOPIRAMATE] Allergy to substance 3 [facility] (20 sources) topiramate Drug Allergy 3 Intolerance [facility] Medications Current Medications Medication Drug Class(es) Dates Sig (Normalized) Sig (Original) acetaminophen 500 mg oral tablet (20 sources) Start: 11-27-2024 take 2 tablets by mouth every six hours as needed acetaminophen (TYLENOL EXTRA STRENGTH) 500 mg tablet Take 2 tablets by mouth every 6 hours as needed for pain. 11/27/2024 Active take 2 capsules by m outh every six hours as needed for pain acetaminophen (Tylenol) 325 MG capsule T rachel 650 mg by mouth every 6 (six) hours if needed for mild pain Active amLODIPine 10 mg oral tablet (20 sources) Dihydropyridine Calcium Channel Harsh Start: 09-24-2022 End: 02-14-2025 take 1 tablet by mouth once daily Amlodipine 10 mg tablet Active 10 MG PO Daily February 14, 2025 1:32pm Complies with drug therapy doxycycline hyclate 100 mg oral capsule (6 sources) Tetracycline-class Drug Start: 12-05-2024 End: 12-15-2024 take 1 capsule by mouth twice daily doxycycline hyclate (VIBRAMYCIN) 100 mg capsule Indications: Postoperative visit Take 1 capsule by mouth two times a day for 10 days. 20 capsule 12/05/2024 12/15/2024 Active Start: 11-27-2024 End: 12-04-2024 take 1 capsule by mouth every twelve hours in the morning, then take 6 capsules by mouth in the evening doxycycline hyclate (VIBRAMYCIN) 100 mg capsule Take 1 capsule by mouth every 12 hours at 6 am and 6 pm for 7 days. 14 capsule 11/27/2024 1:46 PM EDT 11/27/2024 12/04/2024 Active DULoxetine 30 mg delayed release oral capsule (20 sources) Serotonin and Norepinephrine Reuptake Inhibitor Start: 12-17-2024 take 1 capsule by mouth once daily Duloxetine 30 mg capsule,delayed release(DR/EC) Active 30 MG PO Daily December 17, 2024 12:00am Complies with drug therapy Start: 12-11-2024 End: 12-17-2024 take 1 capsule by mouth once daily Duloxetine 40 mg capsule,delayed release(DR/EC) Discontinued 0 .ROUTE .COMPLEX December 11, 2024 7:47am December 17, 2024 3:12pm TAKE 1 CAPSULE BY MOUTH DAILY Start: 09-14-2024 End: 12-11-2024 take 1 capsule by mouth once daily Duloxetine (Cymbalta) 30 mg capsule,delayed release(DR/EC) Discontinued 30 MG PO Daily 30 December 10, 2024 9:12am December 11, 2024 7:48am Enoxaparin 40 mg/0.4 mL syringe (1 source) Start: 12-20-2024 inject 40 mg by subcutaneous injection twice daily Enoxaparin 40 mg/0.4 mL syringe Active 40 MG SUBCUT Twice daily December 20, 2024 12:00am fluocinolone acetonide 0.1 mg/ml topical oil (2 sources) Corticosteroid Fluocinolone Acetonide Scalp 0.01 % 1 application Externally Twice a day Active gabapentin 300 mg oral capsule (14 sources) Anti-epileptic Agent Start: 12-10-2024 End: 02-23-2025 take 1 capsule by mouth twice daily gabapentin (NEURONTIN) 300 mg capsule Indications: Acute postoperative pain Take 1 capsule by mouth two times a day for 30 days. 60 capsule 01/24/2025 02/23/2025 Active ibuprofen 800 mg oral tablet (20 sources) Nonsteroidal Anti-inflammatory Drug Start: 05-10-2024 Ibuprofen 800 mg tablet Active 800 MG PO every 6 to 8 hours as needed May 10, 2024 12:00am Complies with drug therapy Start: 03-13-2024 End: 11-30-2024 ibuprofen 800 MG tablet 03/01 Active iron carbonyl 15 mg chewable tablet (2 sources) Start: 01-26-2023 Carbonyl Iron (Iron Chews Pediatric) 15 MG chewable tablet Chew 0 01/26/2023 Active Iron Chews (2 sources) Start: 01-26-2023 take 1 mg by mouth once daily Iron Chews mg, Oral, Daily, Refills(s) 0 Start Date: 01/26/23 Status: Ordered meclizine hydrochloride 25 mg oral tablet (17 sources) Antiemetic Start: 03-14-2023 meclizine (Antivert) 25 MG tablet every 12 (twelve) hours 0 03/14/2023 Active Start: 03-14-2023 End: 02-28-2024 take 1 tablet by mouth once daily as needed for dizziness Meclizine 25 mg Tablet Discontinued 25 MG PO Daily as needed for Dizziness March 14, 2023 12:00am February 28, 2024 8:19am Start: 01-26-2023 take 1 mg by mouth [...] Tablet Discontinued 12 MG PO Bedtime March 14, 2023 12:00am February 28, 2024 8:19am melatonin 1 mg c hew Take by mouth. Active Melatonin 1 MG c hewable tablet Chew 1 each in the morning. 0 Active melatonin 1 mg t ablet,chewable Chew and swallow. 0 Active metFORMIN hydrochloride 500 mg oral tablet (19 sources) Biguanide Start: 09-14-2024 take 1 tablet by mouth every twelve hours metFORMIN (GLUCOPHAGE) 500 mg tablet Take 1 tablet by mouth every 12 hours. 09/14/2024 Active Start: 09-14-2024 End: 02-26-2025 take 1 tablet by mouth twice daily Metformin 500 mg tablet Discontinued 500 MG PO Twice daily 180 90 September 14, 2024 1:00am February 26, 2025 10:12am methocarbamol 500 mg oral tablet (14 sources) Muscle Relaxant Start: 01-24-2025 End: 02-23-2025 take 1 tablet by mouth twice daily as needed methocarbamol (ROBAXIN) 500 mg tablet Indications: Acute postoperative pain Take 1 tablet by mouth two times a day as needed. 60 tablet 01/24/2025 02/23/2025 Active Start: 12-05-2024 End: 01-17-2025 take 1 tablet by mouth three times daily as needed methocarbamol (ROBAXIN) 750 mg tablet Indications: Acute postoperative pain Take 1 tablet by mouth three times a day as needed for up to 10 days. 30 tablet 01/07/2025 01/17/2025 Active Start: 11-27-2024 End: 12-02-2024 take 1 tablet by mouth every eight hours as needed methocarbamol (ROBAXIN) 500 mg tablet Take 1 tablet by mouth three times a day as needed (Muscle spasms) for up to 5 days. 15 tablet 11/27/2024 1:46 PM EDT 11/27/2024 12/02/2024 Active 24 hr metoprolol succinate 100 mg extended release oral tablet (20 sources) beta-Adrenergic Harsh Start: 09-04-2024 take 1 tablet by mouth every twenty-four hours in the morning metoprolol succinate XL (Toprol-XL) 100 MG 24 hr tablet Indications: Hypertension affecting in second trimester ([facility]) TAKE 1 TABLET BY MOUTH IN THE MORNING 30 tablet 11 09/04/2024 Active Start: 03-14-2023 End: 02-28-2024 take 4 tablets by mouth once daily Metoprolol Succinate 100 mg tablet extended release 24 hr Discontinued 25 MG PO Daily March 14, 2023 12:00am February 28, 2024 8:19am Start: 03-14-2023 End: 02-28-2024 take 25 mg by mouth once daily Metoprolol Succinate Di scontinued 25 MG PO Daily March 14, 2023 12:00am February 28, 2024 8:19am Start: 09-09-2022 take 1 tablet by pablo once daily Metoprolol Succinate 100 mg tablet extended release 24 hr Active 100 MG PO Daily February 28, 2024 8:18am Complies with drug therapy Start: 09-09-2022 End: 12-13-2023 metoprolol succinate ER (TOP ROL XL) 100 mg Take 100 mg by mouth. 09/09/2022 Active take 1 capsule by mo [facility] once daily Metoprolol Succinate 100 MG 1 capsule Orally Once a day Active Multi Vitamin+ (2 sources) Start: 01-26-2023 Multi Vitamin+ Refill(s) 0 Start Date: 01/26/23 Status: Ordered Multiple Vitamin (Multi Vitamin Daily) tablet (2 sources) Start: 01-26-2023 Multiple Vitamin (Multi Vitamin Daily) tablet Refill(s) 0 0 01/26/2023 Active ondansetron 4 mg disintegrating oral tablet (20 sources) Serotonin-3 Receptor Antagonist Start: 02-14-2025 take 1 tablet by mouth every eight hours as needed for nausea and vomiting Ondansetron 4 mg tablet,disintegra ting Active 4 MG PO Q8H as needed for nausea and vomiting 30 February 14, 2025 12:00am Complies with drug therapy Start: 03-14-2023 End: 02-28-2024 Ondansetron 4 mg tablet,disi ntegrating Discontinued 4 MG PO As Directed as needed for Nausea March 14, 2023 12:00am February 28, 2024 8:19am Start: 03-14-2023 End: 08-17-2024 ondansetron orally disintegr ating (ZOFRAN ODT) 4 mg disintegrating tablet 1 (one) time each day at the same time 03/14/2023 Active Start: 01-26-2023 take 1 mg by mouth e very eight hours Zofran 4 mg Tab mg tab(s), Oral, q8hr, Refills(s) 0 Start Date: 01/26/23 Status: Ordered take 1 tablet by pablo th every twenty-four hours Ondansetron HCl 4 MG 1 tablet Orally Onc e a day Active oxyCODONE hydrochloride 5 mg oral tablet (9 sources) Opioid Agonist Start: 12-10-2024 End: 12-17-2024 take 1 tablet by mouth every eight hours as needed for pain oxyCODONE IR (ROXICODONE) 5 mg immediate release tablet Indications: Acute postoperative pain Take 1 tablet by mouth every 8 hours as needed for pain for up to 7 days. 20 tablet 12/10/2024 12/17/2024 Active Start: 11-27-2024 End: 12-10-2024 take 1 tablet by mouth every six hours as needed for pain oxyCODONE IR (ROXICODONE) 5 mg immediate release tablet Indications: Acute postoperative pain Take 1 tablet by mouth every 6 hours as needed for pain for up to 7 days. 28 tablet 12/03/2024 12/10/2024 Discontinued (Course of therapy completed) predniSONE 10 mg oral tablet (4 sources) [...] chewable tablet as directed Orally 0 Active Unisom Sleep Gels (2 sources) Start: 01-26-2023 take 1 mg by mouth every six hours Unisom Sleep Gels mg, Oral, q6hr, Refills(s) 0 Start Date: 01/26/23 Status: Ordered 24 hr venlafaxine 37.5 mg extended release oral capsule (18 sources) Serotonin and Norepinephrine Reuptake Inhibitor Start: 08-15-2024 venlafaxine XR (Effexor XR) 37.5 MG 24 hr capsule 08/15/2024 Active Start: 08-15-2024 End: 09-14-2024 take 1 capsule by mouth once daily Venlafaxine (Effexor Xr) 37.5 mg capsule,extended release 24hr Discontinued 37.5 MG PO Daily August 15, 2024 1:00am September 14, 2024 12:46pm vit B-comp w-Fe,Ca,FA<1mg (I CLEMENTE-VITAMINS ORAL) (20 sources) vit B-comp w-Fe, Ca,FA Active Completed/Discontinued Medications Medication Drug Class(es) Dates Sig (Normalized) Sig (Original) acetaminophen 325 mg / oxyCODONE hydrochloride 5 mg oral tablet (19 sources) Opioid Agonist Start: 12-14-2023 End: 11-06-2024 take 1 tablet by mouth every six hours oxyCODONE-acetami nophen (PERCOCET) 5-325 mg tablet Take 1 tablet by mouth q 6 HR. 12/14/2023 11/06/2024 Discontinued amLODIPine 10 mg / atorvastatin 10 mg oral tablet (16 sources) Dihydropyridine Calcium Channel Harsh, HMG-CoA Reductase Inhibitor End: 11-06-2024 amLODIPine-Atorva statin 10-10 mg per tablet 11/06/2024 Discontinued aspirin 81 mg delayed release oral tablet (20 sources) Platelet Aggregation Inhibitor, Nonsteroidal Anti-inflammatory Drug Start: 03-05-2024 End: 11-06-2024 Aspirin (Adult Low Dose Aspirin) 81 mg tablet,delayed release (DR/EC) Discontinued 81 MG PO .every other day May 10, 2024 10:51am August 15, 2024 12:02pm Start: 02-28-2024 End: 05-10-2024 Aspirin (Adult Low Dose Aspi rin) 81 mg tablet,delayed release (DR/EC) Discontinued 81 MG PO Daily February 28, 2024 12:00am May 10, 2024 10:52am 24 hr buPROPion hydrochloride 300 mg extended release oral tablet (20 sources) Aminoketone Start: 05-24-2024 End: 12-20-2024 take 1 tablet by mouth once daily in the morning Bupropion Hcl (Wellbutrin Xl) 300 mg tablet extended release 24 hr Discontinued 300 MG PO Every morning 90 90 June 19, 2024 11:20am December 20, 2024 11:19am Start: 02-28-2024 End: 05-24-2024 take 1 tablet by mouth once daily Bupropion Hcl 150 mg tablet extended release 24 hr Discontinued 150 MG PO Daily February 28, 2024 12:00am May 24, 2024 10:46am Start: 02-28-2024 End: 05-24-2024 take 1 tablet by mouth once daily Bupropion Hcl 150 mg tablet extended release 24 hr Discontinued 150 MG PO Daily February 28, 2024 12:00am May 24, 2024 10:46am Start: 09-14-2023 End: 11-30-2024 take 1 tablet by mouth every twenty-four hours in the morning buPROPion XL (Wellbutrin XL) 150 MG 24 hr tablet Indications: Anxiety with depression TAKE 1 TABLET BY MOUTH IN THE MORNING DO NOT CRUSH, CHEW, OR SPLIT 30 tablet 11 05/18/2024 Active busPIRone hydrochloride 10 m g oral tablet (20 sources) Start: 08-31-2022 End: 11-06-2024 busPIRone (BUSPAR) 10 mg tab let Take 10 mg by mouth. 08/31/2022 11/06/2024 Discontinued chlorhexidine gluconate 1.2 mg/ml mouthwash (20 sources) Start: 09-28-2022 End: 11-06-2024 Chlorhexidine Gluconate (PERIDEX) 0.12 % solution TAKE 15 ML IN MOUTH & SWISH FOR 30 SECONDS THEN SPIT OUT TWICE DAILY FOR 20 DAYS 09/28/2022 11/06/2024 Discontinued Start: 09-28-2022 chlorhexidine (PERIDEX) 0.12 % solution TAKE 15 ML IN MOUTH & SWISH FOR 30 SECONDS THEN SPIT OUT TWICE DAILY FOR 20 DAYS 0 09/28/2022 Active clindamycin 300 mg oral capsule (16 sources) Lincosamide Antibacterial Start: 01-19-2024 End: 11-06-2024 take 1 capsule by mouth four times daily at bedtime clindamycin (CLEOCIN) 300 mg capsule TAKE 1 CAPSULE BY MOUTH FOUR TIMES DAILY (IN THE MORNING, at noon, IN THE EVENING, and BEFORE bedtime) FOR 10 DAYS 01/19/2024 11/06/2024 Discontinued diclofenac sodium 75 mg delayed release oral tablet (20 sources) Nonsteroidal Anti-inflammatory Drug Start: 03-28-2024 End: 11-06-2024 take 1 tablet by mouth every twelve hours diclofenac, EC, (VOLTAREN) 75 mg EC tablet Take 1 tablet by mouth every 12 hours. 03/28/2024 11/06/2024 Discontinued Start: 03-14-2023 End: 02-28-2024 take 1 tablet by mouth twice daily Diclofenac Sodium 75 mg tablet,delayed release (DR/EC) Discontinued 75 MG PO Twice daily March 14, 2023 12:00am February 28, 2024 8:19am Start: 02-21-2023 diclofenac (Vo ltaren) 75 MG EC tablet every 12 (twelve) hours 0 02/21/2023 Active diphenhydrAMINE hydrochloride 50 mg oral capsule (20 sources) Histamine-1 Receptor Antagonist Start: 01-26-2023 End: 02-28-2024 take 1 capsule by mouth once daily at bedtime Diphenhydramine Hcl 50 mg Capsule Discontinued 50 MG PO Daily at bedtime March 14, 2023 12:00am February 28, 2024 1:22pm diphenhydramine HCl (UNISOM, DIPHENHYDRAMINE, ORAL) Take 50 mg by mouth. 0 Active Duloxetine 40 mg capsule,delayed release(DR/EC) (1 source) Start: 12-11-2024 End: 12-17-2024 take 1 capsule by mouth once daily Duloxetine 40 mg capsule,delayed release(DR/EC) Discontinued 0 .ROUTE .COMPLEX December 11, 2024 7:47am December 17, 2024 3:12pm TAKE 1 CAPSULE BY MOUTH DAILY 0.4 ml enoxaparin sodium 100 mg/ml prefilled syringe (8 sources) Low Molecular Weight Heparin Start: 12-20-2024 End: 02-26-2025 inject 40 mg by subcutaneous injection twice daily Enoxaparin 40 mg/0.4 mL syringe Discontinued 40 MG SUBCUT Twice daily December 20, 2024 12:00am February 26, 2025 10:11am Start: 11-27-2024 End: 12-27-2024 inject 40 mg by subcutaneous injection every twelve hours enoxaparin (LOVENOX) 40 mg/0.4 mL Inject 0.4 mL subcutaneously every 12 hours. 24 mL 11/27/2024 1:46 PM EDT 11/27/2024 12/27/2024 Active escitalopram 10 mg oral tablet (20 sources) Serotonin Reuptake Inhibitor Start: 01-26-2023 End: 11-06-2024 take 1 tablet by mouth once daily Escitalopram Oxalate 10 mg tablet Discontinued 10 MG PO Daily February 28, 2024 1:45pm May 24, 2024 10:47am take 1 tablet by pablo th every twenty-four hours Escitalopram Oxalate 5 MG 1 tablet Orall y Once a day Active ferrous sulfate 134 mg oral tablet (20 sources) Start: 03-14-2023 End: 02-28-2024 take 1 tablet by mouth once daily Ferrous Sulfate 27 mg iron Tablet Discontinued 27 MG PO Daily March 14, 2023 12:00am February 28, 2024 8:19am End: 11-06-2024 ferrous sulfate 325 mg (65 m g iron) EC tablet Take 325 mg by mouth. 11/06/2024 Discontinued take 1 tablet by pablo three times weekly Iron 325 (65 Fe) MG 1 tablet Orally Three times a Week Active fluocinonide 0.5 mg/ml topical solution (20 sources) Corticosteroid Start: 09-25-2022 End: 11-30-2024 Fluocinonide 0.05 % solution Discontinued 1 APPLIC TOPICAL every other day 60 30 February 28, 2024 1:55pm June 11, 2024 12:02pm fluocinonide (LI DEX) 0.05 % external solution APPLY TO THE AFFECTED AREA(S) topically DAILY Active hydrOXYzine pamoate 25 mg oral capsule (20 sources) Antihistamine Start: 10-14-2022 End: 11-06-2024 take 1 capsule by mouth every twelve hours as needed hydrOXYzine pamoate (VISTARIL) 25 mg capsule Take 1 capsule by mouth two times a day as needed. 10/14/2022 11/06/2024 Discontinued levothyroxine sodium 0.025 mg oral tablet (20 sources) l-Thyroxine Start: 03-13-2024 take 1 tablet by mouth once daily levothyroxine 25 mcg (0.025 mg) Tab 25 mcg = 1 tab(s), Oral, Daily, Refills(s) 0 Start Date: 03/13/24 Status: Ordered Start: 09-01-2023 End: 12-10-2024 take 1 tablet by mouth once daily Levothyroxine 25 mcg tablet Discontinued 25 MCG PO Daily February 28, 2024 12:00am July 24, 2024 9:20am Start: 03-09-2023 Synthroid 137 MCG tablet Take 137.5 mcg by mouth in the morning. Take before meals. 0 03/09/2023 Active Start: 01-26-2023 take 1 capsule by mo [facility] once daily levothyroxine 137 mcg (0.137 mg) oral capsule 137 mcg = 1 cap(s), Oral, Daily, Refills(s) 0 Start Date: 01/26/23 Status: Ordered Start: 08-23-2022 take 1 tablet by pablo once daily Levothyroxine (Synthroid) 137 mcg tablet Active 137 MCG PO Daily March 14, 2023 12:00am Complies with drug therapy Levothyroxine So dium Active meloxicam 15 mg oral tablet (14 sources) Nonsteroidal Anti-inflammatory Drug Start: 07-10-2024 End: 11-30-2024 take 1 tablet by mouth once daily meloxicam (MOBIC) 15 mg tablet Take 15 mg by mouth once daily. 07/10/2024 11/30/2024 Discontinued (Discontinued by Patient) omeprazole 40 mg delayed release oral capsule (20 sources) Proton Pump Inhibitor Start: 08-28-2024 End: 02-26-2025 take 1 capsule by mouth once daily Omeprazole 40 mg capsule,delayed release(DR/EC) Discontinued 0 .ROUTE .COMPLEX 90 August 28, 2024 1:01pm February 26, 2025 10:12am TAKE 1 CAPSULE BY MOUTH DAILY Start: 01-26-2023 End: 08-28-2024 take 1 capsule by mouth twice daily Omeprazole 40 mg capsule,delayed release(DR/EC) Discontinued 40 MG PO Twice daily 60 July 24, 2024 12:10pm August 28, 2024 1:01pm Start: 01-26-2023 End: 07-24-2024 take 1 capsule by mouth once daily Omeprazole 40 mg capsule,delayed release(DR/EC) Discontinued 40 MG PO Daily March 14, 2023 12:00am June 11, 2024 12:02pm Semaglutide (4 sources) Start: 08-15-2024 End: 09-14-2024 Semaglutide (Ozempic) 0.25 m g or 0.5 mg (2 mg/3 mL) pen injector Discontinued 0.25 MG SUBCUT every week August 15, 2024 1:00am September 14, 2024 12:33pm for 4 weeks Start: 08-15-2024 End: 09-14-2024 Semaglutide (Ozempic) 0.25 m g or 0.5 mg (2 mg/3 mL) pen injector Discontinued 0.25 MG SUBCUT every week August 15, 2024 12:00am September 14, 2024 11:33am for 4 weeks Start: 08-15-2024 Semaglutide (O zempic) 0.25 mg or 0.5 mg (2 mg/3 mL) pen injector Active 0.25 MG SUBCUT every week 3 August 15, 2024 12:00am for 4 weeks sertraline 100 mg oral tablet (20 sources) Serotonin Reuptake Inhibitor Start: 10-14-2022 End: 11-06-2024 sertraline (ZOLOFT) 100 mg tablet Take 100 mg by mouth. 10/14/2022 11/06/2024 Discontinued tiZANidine 4 mg oral tablet (11 sources) Central alpha-2 Adrenergic Agonist Start: 03-14-2023 End: 02-28-2024 Tizanidine 4 mg tablet Discontinued 4 MG PO As Directed as needed for Pain March 14, 2023 12:00am February 28, 2024 8:19am traMADol hydrochloride 50 mg oral tablet (8 sources) Opioid Agonist Start: 12-20-2024 End: 02-26-2025 take 1 tablet by mouth twice daily as needed for pain Tramadol 50 mg tablet Discontinued 50 MG PO Twice daily as needed for pain 10 December 20, 2024 12:00am February 26, 2025 10:09am Problems Active Problems Problem Classification Problem Date Documented Da te Episodic/Chronic Abdominal hernia (20 sources) Diaphragmatic hernia without obstruction or gangrene; Translations: [Unspecified abdominal hernia without obstruction or gangrene] Onset: 4 Episodic Abdominal pain (4 sources) Abdominal pain; Translations: [Unspecified abdominal pain] 12-20-2024 Episodic Adjustment disorders (1 source) Adjustment disorder with anxiety; Translations: [Adjustment disorder with anxious mood] Onset: 5 Chronic Administrative/social admission (1 source) Patient encounter status; [...] vessel; Translations: [Arteriovenous malformation] Chronic Cardiac dysrhythmias (20 sources) Inappropriate sinus tachycardia; Translations: [Inappropriate sinus tachycardia] Onset: 5 05-10-2024 Chronic Cardiac dysrhythmias (18 sources) Tachycardia; Translations: [Tachycardia, unspecified] Onset: 4 02-28-2024 Episodic Complications of surgical procedures or medical care (14 sources) Post-operative wound cellulitis; Translations: [Infection following a procedure, other surgical site, initial encounter] Onset: 5 11-27-2024 Episodic Deficiency and other anemia (11 sources) Iron deficiency anemia, unspecified; Translations: [Iron deficiency anemia, unspecified] Onset: 3 Episodic Deficiency and other anemia (20 sources) Iron deficiency anemia; Translations: [Iron deficiency anemia, unspecified] Onset: 3 03-15-2023 Episodic Diabetes mellitus without complication (6 sources) Impaired fasting glycemia; Translations: [Impaired fasting glucose] 08-15-2024 Episodic Diverticulosis and diverticulitis (3 sources) Diverticular disease of colon; Translations: [Diverticulosis of intestine, part unspecified, without perforation or abscess without bleeding] Chronic Esophageal disorders (20 sources) Gastroesophageal reflux disease; Translations: [Gastro-esophageal reflux disease without esophagitis] Onset: 4 Chronic Essential hypertension (20 sources) Hypertensive disorder; Translations: [Essential (primary) hypertension] Onset: 5 03-05-2024 Chronic Fluid and electrolyte disorders (13 sources) Hypokalemia; Translations: [Hypokalemia] Onset: 5 11-27-2024 Episodic Headache; including migraine (1 source) Migraine 03-05-2024 Chronic Hypertension complicating ; childbirth and the puerperium (12 sources) Pre-existing essential hypertension complicating , second trimester; Translations: [Unspecified pre-existing hypertension complicating , unspecified trimester] Onset: 4 09-22-2023 Chronic Immunizations and screening for infectious disease (1 source) Encounter for screening for human immunodeficiency virus [HIV]; Translations: [ENCOUNTER FOR SCREENING FOR HIV] Onset: 3 Episodic Miscellaneous mental health disorders (1 source) Psychological and behavioral factors associated with disorders or diseases classified elsewhere; Translations: [Psychological factors affecting medical condition] Onset: 5 Chronic Mood disorders (20 sources) Depressive disorder; Translations: [Depression] 02-28-2024 Chronic Open wounds of head; neck; and trunk (2 sources) Open wound of abdomen; Translations: [Unspecified open wound of abdominal wall, unspecified quadrant without penetration into peritoneal cavity, initial encounter] 12-20-2024 Episodic Other acquired deformities (1 source) Contracture of joint of left ankle; Translations: [Contracture, left ankle] 10-25-2024 Chronic Other aftercare (3 sources) Postoperative visit; Translations: [Encounter for other specified surgical aftercare] 12-05-2024 Episodic Other aftercare (2 sources) Wound ; Translations: [Encounter for other specified surgical aftercare] 12-14-2024 Episodic Other aftercare (2 sources) Encounter for other specified surgical aftercare; Translations: [Encounter for postoperative wound check] Onset: 5 Episodic Other complications of (2 sources) Obesity complicating , unspecified trimester; Translations: [Obesity complicating , unspecified trimester] Onset: 4 Chronic Other complications of (1 source) Supervision of [...] tibial tendinitis, right leg] 08-17-2024 Episodic Other connective tissue disease (7 sources) Disorder of musculoskeletal system; Translations: [Other specified disorders of synovium, right ankle and foot] 09-03-2024 Episodic Other endocrine disorders (2 sources) 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; Translations: [Hypopituitarism] 09-15-2023 Chronic Other gastrointestinal disorders (1 source) Diarrhea, unspecified Episodic Other gastrointestinal disorders (3 sources) History of bariatric surgical procedure; Translations: [Bariatric surgery status] 05-23-2024 Episodic Other gastrointestinal disorders (3 sources) History of bypass of stomach; Translations: [Bariatric surgery status] 12-20-2024 Episodic Other gastrointestinal disorders (3 sources) Bariatric surgery status; Translations: [Bariatric surgery status] Onset: 4 12-20-2024 Episodic Other gastrointestinal disorders (2 sources) Personal history of other diseases of the digestive system; Translations: [S/P hernia repair] Onset: Episodic Other inflammatory condition of skin (17 sources) Psoriatic arthritis; Translations: [Arthropathic psoriasis, unspecified] Onset: 5 11-06-2024 Chronic Other inflammatory condition of skin (1 source) Arthropathic psoriasis, unspecified; Translations: [Psoriatic arthritis (HCC)] Onset: Chronic Other injuries and conditions due to external causes (6 sources) Injury of right ankle; Translations: [Unspecified injury of right ankle, initial encounter] 05-24-2024 Episodic Other injuries and conditions due to external causes (3 sources) Unspecified injury of right ankle, initial encounter; Translations: [Knee, leg, ankle, and foot injury] 05-24-2024 Episodic Other lower respiratory disease (2 sources) Snoring; Translations: [Snoring] 05-23-2024 Episodic Other nervous system disorders (2 sources) Poor concentration; Translations: [Attention and concentration deficit] 02-26-2025 Chronic Other nervous system disorders (2 sources) Disturbance of attention; Translations: [Attention and concentration deficit] 02-26-2025 Chronic Other nervous system disorders (17 sources) Acute postoperative pain; Translations: [Other acute postprocedural pain] Onset: 5 11-26-2024 Episodic Other nervous system disorders (1 source) Other acute postprocedural pain; Translations: [Acute postoperative pain] Onset: 5 Episodic Other non-traumatic joint disorders (6 sources) Ankle pain; Translations: [Pain in right ankle and joints of right foot] 05-24-2024 Episodic Other non-traumatic joint disorders (3 sources) Pain in right ankle and joints of right foot; Translations: [Pain in joint, ankle and foot] 05-24-2024 Episodic Other non-traumatic joint disorders (4 sources) Instability of joint of right ankle; Translations: [Other instability, right ankle] 06-20-2024 Episodic Other non-traumatic joint disorders (11 sources) Sinus tarsi syndrome of right ankle; Translations: [Pain in right ankle and joints of right foot] 07-10-2024 Episodic Other nutritional; endocrine; and metabolic disorders (10 sources) Morbid obesity; Translations: [Morbid (severe) obesity due to excess calories] Onset: 4 Chronic Other nutritional; endocrine; and metabolic disorders (20 sources) Body mass index 40+ - severely obese; Translations: [Body mass index (BMI) 40.0-44.9, adult] Onset: 4 Chronic Other nutritional; endocrine; and metabolic disorders (1 source) Obese class III 03-05-2024 Chronic Other nutritional; endocrine; and metabolic disorders (6 sources) Morbid (severe) obesity due to excess calories; Translations: [Morbid obesity] Onset: 4 08-15-2024 Chronic Other nutritional; endocrine; and metabolic disorders (17 sources) Insulin resistance; Translations: [Insulin resistance] Onset: 5 11-06-2024 Chronic Other nutritional; endocrine; and metabolic disorders (17 sources) Severe obesity; Translations: [Class 3 severe obesity without serious comorbidity with body mass index (BMI) of 40.0 to 44.9 in adult, unspecified obesity type (HCC)] Onset: 5 11-06-2024 Chronic Other nutritional; endocrine; and metabolic disorders (13 sources) Hypophosphatemia; Translations: [Other disorders of phosphorus metabolism] Onset: 5 11-27-2024 Chronic Other nutritional; endocrine; and metabolic disorders (2 sources) Body mass index (BMI) 40.0-44.9, adult; Translations: [Class 3 severe obesity without serious comorbidity with body mass index (BMI) of 40.0 to 44.9 in adult, unspecified obesity type (HCC)] Onset: 4 Chronic Other screening for suspected conditions (not mental disorders or infectious disease) (20 sources) Encounter for screening for cardiovascular disorders; Translations: [Encounter for screening for nutritional disorder] Onset: 3 09-15-2023 Episodic Other skin disorders (9 sources) Disorder of scalp; Translations: [Other skin changes] 02-28-2024 Episodic Other skin disorders (4 sources) Other skin changes; Translations: [Keratoderma, acquired] 02-28-2024 Episodic Other skin disorders (3 sources) Eruption; Translations: [Rash and other nonspecific skin eruption] Episodic Previous (2 sources) Maternal care for [...] 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]] 06-07-2024 Episodic Residual codes; unclassified (19 sources) History of hernia repair; Translations: [Other specified postprocedural states] Onset: 5 11-30-2024 Episodic Residual codes; unclassified (2 sources) Other specified postprocedural states; Translations: [S/P hernia repair] Onset: 5 Episodic Sprains and strains (2 sources) Sprain of right ankle; Translations: [Sprain of unspecified ligament of right ankle, sequela] 07-10-2024 Episodic Substance-related disorders (2 sources) Nicotine dependence, unspecified, in remission; Translations: [Personal history of tobacco use] Onset: 5 08-21-2024 Chronic Thyroid disorders (20 sources) Hypothyroidism, unspecified; Translations: [Hypothyroidism] Onset: 3 09-15-2023 Chronic Unclassified (20 sources) OB Reminders Onset: 3 06-30-2023 Unclassified (1 source) Advanced Maternal Age Onset: 4 Unclassified (1 source) Chronic Hypertension Onset: 4 Unclassified (3 sources) Preprocedural examination done 10-01-2024 Unclassified (3 sources) Bariatric Surgery Steam Engineer Onset: 09-25-2024 Unclassified (1 source) NO SHOW 02-19-2025 Unclassified (1 source) Insulin resistance; Translations: [Insulin resistance] Onset: Unclassified (1 source) Class 3 severe obesity without serious comorbidity with body mass index (BMI) of 40.0 to 44.9 in adult, unspecified obesity type (HCC); Translations: [Class 3 severe obesity without serious comorbidity with body mass index (BMI) of 40.0 to 44.9 in adult, unspecified obesity type (HCC)] Onset: 5 Unclassified (1 source) R21 - Rash and other nonspecific skin eruption Unclassified (1 source) R41.840 - Attention and concentration deficit,F33.2 - Major depressive disorder, recurrent severe without psychotic features Past or Other Problems Problem Classification Problem Date Documented Date Episodic/Chronic Deficiency and other anemia (1 source) Other iron deficiency anemias; Translations: [Other iron deficiency anemia] Onset: 11-06-2024 Episodic Malaise and fatigue (3 sources) Fatigue; Translations: [Other fatigue] Onset: 05-24-2024 05-23-2024 Episodic Other complications of (1 source) Multigravida of advanced maternal age; Translations: [Supervision of elderly multigravida, second trimester] 09-22-2023 Episodic Other complications of (1 source) Hypothyroidism in ; Translations: [Endocrine, nutritional and metabolic diseases complicating , unspecified trimester] 09-22-2023 Episodic Other lower respiratory disease (1 source) Snoring; Translations: [Snoring] Onset: 05-24-2024 Episodic Other and delivery including normal (20 sources) Second trimester ; Translations: [Encounter for supervision of normal , unspecified, second trimester] Onset: 08-18-2023 Resolved: 12-15-2023 09-13-2023 Episodic Residual codes; unclassified (1 source) 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 Patient states that her wound is almost completely close at the inferior aspect of her midline. However, she continues to have increased pain and requiring both muscle relaxers and gabapentin. Possibly neuropathic pain. Plan to get CT to rule out post surgical concerns. If no acute findings on CT, will plan to refer to chronic pain management for further discussion/interventi ons for abdominal (neuropathic) pain. Ginger Silveira, MSN, CUSTOM DESIGNER, IMMIGRATION SPECIALIST-C January 25, 2025 11:30 AM Allergies As of Date: 01/25/2025 Noted Allergy Reaction PENICILLINS 10/26/2022 10 - Anaphylaxis 3 - Cough 4 - Hives 9 - Itching 2 - Rash 12 - Shortness of Breath 7 - Swelling 16 - Unknown Comments: Other Reaction(s): throat swelling and hives TOPIRAMATE 01/04/2023 5 - Intolerance Comments: Other Reaction(s): seizures Date Reviewed: 12/28/2024 Reviewed by: Shireen Morrissey - Fully Assessed Reason for Visit: Patient Update [1234] Prescriptions as of 01/25/2025 - gabapentin (NEURONTIN) 300 mg capsule Take 1 capsule by mouth two times a day for 30 days. - methocarbamol (ROBAXIN) 500 mg tablet Take 1 tablet by mouth two times a day as needed. - traMADol (ULTRAM) 50 mg tablet Take 50 mg by mouth two times a day as needed. - gabapentin (NEURONTIN) 300 mg capsule Take 1 capsule by mouth two times a day for 14 days. - acetaminophen (TYLENOL EXTRA STRENGTH) 500 mg tablet Take 2 tablets by mouth every 6 hours as needed for pain. - DULoxetine (CYMBALTA) 30 mg capsule Take 1 capsule by mouth once daily. - metFORMIN (GLUCOPHAGE) 500 mg tablet Take 1 tablet by mouth every 12 hours. - amLODIPine (NORVASC) 10 mg tablet Take 10 mg by mouth. - fluocinonide (LIDEX) 0.05 % external solution APPLY TO THE AFFECTED AREA(S) topically DAILY - levothyroxine (SYNTHROID) 137 mcg tablet TAKE [...] each day at the same time - vit B-comp w-Fe,Ca,FA<1mg (IRON-VITAMINS ORAL) Problem List As Of Date 01/25/2025 Noted Resolved GERD (gastroesophageal reflux disease) [K21.9] 11/06/2024 Hypothyroidism [E03.9] 10/23/2022 Hypertension [I10] 11/06/2024 Iron deficiency anemia [D50.9] 10/20/2022 Psoriatic arthritis (HCC) [L40.50] 11/06/2024 Inappropriate sinus tachycardia (HCC) [I47.11] 11/06/2024 Insulin resistance [E88.819] 11/06/2024 Class 3 severe obesity without serious comorbid*11/06/2024 Ventral hernia without obstruction or gangrene *11/23/2024 S/P hernia repair [Z98.890, Z87.19] 11/26/2024 Morbid obesity with BMI of 45.0-49.9, adult (HC*11/26/2024 Acute postoperative pain [G89.18] 11/26/2024 Hypokalemia [E87.6] 11/27/2024 Hypophosphataemia [E83.39] 11/27/2024 Postoperative cellulitis of surgical wound [T81*11/27/2024 Encounter Status:Closed by GINGER SILVEIRA on 01/25/25 Normal [facility] CNOVon 12-28-2024 CNOV Office Visit (GENSMN ) TIFFANI ALLISON ([id number]) 1985 F Date Time Provider Department 12/28/24 11:00 AM GINGER SILVEIRA During your visit today, we recorded the following information about you: Temperature Pulse Blood pressure Weight 98.1 degrees 74/minute 116/73 131.5 kg Height Last Period 1.778 m 12/24/24 Shireen Morrissey 12/28/2024 11:27 AM Signed What is the reason for your visit today? Post op Who is your referring physician? Ginger Silveira Are you having poor oral intake? NO Have you had unintentional weight loss of 15 lbs/7 Kg in the last 3-6 months? NO Bowels: regular Wound: clean AND dry Temperature: No Drains: No Ginger Silveira APRN.VEST PRESSER 12/28/2024 11:27 AM Signed [facility] Clinic Date: December 28, 2024 Tiffani Allison 39 year old female CHIEF COMPLAINT: Patient presents for a wound check. HPI: Here for wound check after open bilateral TAR, incisional hernia repair and implantation of mesh on 11/23/[address] Jeff. Patient also underwent with Raine Grissom M.D. ([place]), a laparoscopic paraesophageal hernia repair and conversion to Becki-en-Y gastric bypass. Last seen in clinic on for wound check. Tiffani reports improvement in her wound but continues to experience pain, which she describes as not terrible but annoying. She began taking gabapentin 300 mg yesterday and notes some relief. She is also using muscle relaxers and Tylenol for pain management. She inquired about the use of tramadol, which was previously prescribed by her PCP, but was advised against continuing it. Tiffani is performing wet-to-dry dressing changes twice daily. She reports that the wound dressing shows a quarter-sized amount of drainage after 12 hours, with more drainage noted at night. She denies any fevers. She inquires about resuming activities, including lifting weights and riding roller coasters, but notes that she is still in pain and unable to walk long distances comfortably. Surgery Date and Procedure: 11/23/2024 Open left posterior myofascial component separation, open right posterior myofascial component separation, and incisional hernia repair with mesh. Randomized Controlled Trial: N/A Current Medications: Current Outpatient Medications Medication Sig Dispense Refill traMADol (ULTRAM) 50 mg tablet Take 50 mg by mouth two times a day as needed. gabapentin (NEURONTIN) 300 mg capsule Take 1 capsule by mouth two times a day for 14 days. 28 capsule 0 acetaminophen (TYLENOL EXTRA STRENGTH) 500 mg tablet Take 2 tablets by mouth every 6 hours as needed for pain. DULoxetine (CYMBALTA) 30 mg capsule Take 1 capsule by mouth once daily. amLODIPine (NORVASC) 10 mg tablet Take 10 mg by mouth. fluocinonide (LIDEX) 0.05 % external solution APPLY TO THE AFFECTED AREA(S) topically DAILY levothyroxine (SYNTHROID) 137 mcg tablet TAKE 1 TABLET BY MOUTH IN THE MORNING BEFORE MEALS melatonin 1 mg chew Take by mouth. metoprolol succinate ER (TOPROL XL) 100 mg Take 100 mg by mouth. ondansetron orally disintegrating (ZOFRAN ODT) 4 mg disintegrating tablet 1 (one) time each day at the same time vit B-comp w-Fe,Ca,FA<1mg (IRON-VITAMINS ORAL) metFORMIN (GLUCOPHAGE) 500 mg tablet Take 1 tablet by mouth every 12 hours. omeprazole (PRILOSEC) 40 mg capsule Take 40 mg by mouth. No current facility-administered medications for this visit. REVIEW OF SYSTEMS: Constitutional: (+) fatigue, (-) fever Skin: (+) wound pain, (+) wound tenderness, (+) wound drainage PHYSICAL EXAM: Ht 177.8 cm (5' 10 ) Wt 131.5 kg (290 lb) LMP 12/24/2024 (Exact Date) BMI 41.61 kg/m? General: No acute distress. Skin: Wound depth approximately 2.4 cm, minimal drainage, no induration, no erythema, surrounding tissue appears healthy. SURGICAL PATHOLOGY: N/A ASSESSMENT/PLAN: 1. Encounter for postoperative wound check (Z48.89) Wound healing well with decreased depth from 5 cm to approximately 2.4 cm. No signs of induration or erythema. Patient experiencing tenderness and soreness, managed with gabapentin 300 mg and muscle relaxers. - Continue wet-to-dry dressings twice daily. - Continue gabapentin and muscle relaxers for pain management; avoid narcotics. - Provided supplies: Q-tips, abdominal pads, and 2-inch tape. - Advised patient to gradually increase activity as tolerated, avoiding activities that cause severe pain. - Follow up PRN - call office if any concerns with healing wound Ginger Silveira, MSN, VEST PRESSER December 28, 2024 Referring Provider: ROCIO JEFF [[id number]] Allergies As of Date: 12/28/2024 Noted Allergy Reaction PENICILLINS 10/26/2022 10 - Anaphylaxis 3 - Cough 4 - Hives 9 - Itching 2 - Rash 12 - Shortness of Breath 7 - Swelling 16 - Unknown Comments: Other Reaction(s): throat swelling and hives TOPIRAMATE (more content not included)... Normal [facility] CNOVon 12-14-2024 CNOV Office Visit (JENNIFER ) TIFFANI ALLISON ([id number]) 1985 F Date Time Provider Department 12/14/24 11:00 AM GINGER SILVEIRA During your visit today, we recorded the following information about you: Temperature Pulse Blood pressure Weight 96.9 degrees 85/minute 136/86 132 kg Height 1.778 m Sudarshan Russell MA 12/14/2024 3:25 PM Signed What is the reason for your visit today? Post op Who is your referring physician? Dr. Silveira Are you having poor oral intake? NO Have you had unintentional weight loss of 15 lbs/7 Kg in the last 3-6 months? NO Bowels: constipated Wound: drainage pink/ clear Temperature: No Drains: No Ginger Silveira APRN.CNP 12/14/2024 3:25 PM Signed [facility] Clinic Date: December 14, 2024 Tiffani Allison 39 year old female CHIEF COMPLAINT: Patient presents for a wound check. HPI: Here for wound check after open bilateral TAR, incisional hernia repair and implantation of mesh on 11/23/[address] Jeff. Patient also underwent with Raine Grissom M.D. ([place]), a laparoscopic paraesophageal hernia repair and conversion to Becki-en-Y gastric bypass. Last seen in clinic on 12/05/2024 - wound opened and packed. She was started on Doxycyline 100 mg BID. Tiffani reports that the wound is improving and is being packed twice daily. She denies malodorous or purulent drainage, noting that the drainage is clear with occasional yellowish tint and some blood. She denies fevers and reports no significant erythema around the wound, though she notes some peeling skin. She is currently on doxycycline, which will be completed in 1-2 days. She reports that the pain is improving but still requires medication. She is taking muscle relaxers three times daily, which she finds effective, and occasionally takes fluoxicillin, adjusting the dose based on her pain level. She reports that Tylenol is ineffective for her pain. She has not taken gabapentin due to concerns about potential seizures. She is eating well She is taking stool softeners as needed and reports that her bowel movements could be better. She denies any issues with urination. Surgery Date and Procedure: 11/23/2024 Open left posterior myofascial component separation, open right posterior myofascial component separation, and incisional hernia repair with mesh. Randomized Controlled Trial: N/A Current Medications: Current Outpatient Medications Medication Sig Dispense Refill oxyCODONE IR (ROXICODONE) 5 mg immediate release tablet Take 1 tablet by mouth every 8 hours as needed for pain for up to 7 days. 20 tablet 0 gabapentin (NEURONTIN) 300 mg capsule Take 1 capsule by mouth two times a day for 14 days. 28 capsule 0 methocarbamol (ROBAXIN) 750 mg tablet Take 1 tablet by mouth three times a day as needed for up to 10 days. 30 tablet 0 doxycycline hyclate (VIBRAMYCIN) 100 mg capsule Take 1 capsule by mouth two times a day for 10 days. 20 capsule 0 acetaminophen (TYLENOL EXTRA STRENGTH) 500 mg tablet Take 2 tablets by mouth every 6 hours as needed for pain. enoxaparin (LOVENOX) 40 mg/0.4 mL Inject 0.4 mL subcutaneously every 12 hours. 24 mL 0 DULoxetine (CYMBALTA) 30 mg capsule Take 1 capsule by mouth once daily. metFORMIN (GLUCOPHAGE) 500 mg tablet Take 1 tablet by mouth every 12 hours. (Patient not taking: Reported on 12/05/2024) amLODIPine (NORVASC) 10 mg tablet Take 10 mg by mouth. fluocinonide (LIDEX) 0.05 % external solution APPLY TO THE AFFECTED AREA(S) topically DAILY levothyroxine (SYNTHROID) 137 mcg tablet TAKE 1 TABLET BY MOUTH IN THE MORNING BEFORE MEALS melatonin 1 mg chew Take by mouth. metoprolol succinate ER (TOPROL XL) 100 mg Take 100 mg by mouth. omeprazole (PRILOSEC) 40 mg capsule Take 40 mg by mouth. (Patient not taking: Reported on 12/05/2024) ondansetron orally disintegrating (ZOFRAN ODT) 4 mg disintegrating tablet 1 (one) time each day at the same time vit B-comp w-Fe,Ca,FA<1mg (IRON-VITAMINS ORAL) No current facility-administered medications for this visit. REVIEW OF SYSTEMS: Constitutional: (-) fever Gastrointestinal: (+) constipation, (-) vomiting Genitourinary: (-) urinary problems Musculoskeletal: (+) incisional pain, (+) muscle spasms Skin: (+) incisional redness, (+) pruritus, (+) wound drainage Neurological: (+) dizziness PHYSICAL EXAM: BP 136/86 Pulse 85 Temp 36.1 ?C (96.9 ?F) (Temporal) Ht 177.8 cm (5' 10 ) Wt 132 kg (291 lb) LMP 11/23/2024 (Exact Date) BMI 41.75 kg/m? General: No acute distress. Skin: Wound tissue appears healthy, serous drainage present, no signs of infection, sutures visible. SURGICAL PATHOLOGY: N/A ASSESSMENT/PLAN: 1. Encounter for postoperative wound check (Z48.89) Wound healing well with healthy tissue observed. Measurements: length 5.25 cm, width 3 cm, depth 5 cm, reduced from 6.4 cm (more content not included)... Normal [facility] CNPNon 12-06-2024 CNPN Telephone (GENBMI) TIFFANI ALLISON ([id number]) 1985 F Date Time Provider Department 12/06/24 KRISTI WATTS During your visit today, we recorded the following information about you: Kristi Watts RN 12/06/2024 2:50 PM Addendum [facility] SPECIALTY CARE COORDINATION POST-OP TELEPHONE CALL BMI Post Op Telephone Call Pt was called on the 8 day after discharge. DO YOU HAVE A COPY OF YOUR DISCHARGE INSTRUCTIONS YES Is there anything in your discharge instructions that you do not understand? YES Pain: tolerable. and taking Tylenol. On a scale of 0-10, 0 being not satisfied and 10 being very satisfied, how satisfied were you with your pain management strategy after surgery? 10 ?Patient instructed not to take any narcotic pain medications (such as Roxicodone) within three hours before bedtime as it may cause breathing difficulty. If you are having pain at bedtime you may take Tylenol (liquid form or two extra strength tablets).? Phase 2 full liquid diet:: tolerating diet. and pt estimates 60 grams of protein and min of 40 oz of fluid daily. Pt is feeling ok and is not dehydrated. Incisions: surgical incisions (bigger one is being packed) Pt is on antibiotics Dr. Grissom's incisions look good (pt stated) GI: + BM and +flatus : WNL Medications: Taking as instructioned at discharge PPI CPAP USE: No Remind patient of post op appt. Reminded patient of how to reach [facility] or their surgeons office. Patient reminded to seek medical attention if they develop chest pain, a sudden onset of shortness of breath or persistent pain in the calf of their legs - BEST TO ALWAYS present to [facility] hospital where you had your surgery Patient verbalized understanding of all advice and instructions given. Kristi Watts RN BMI SPECIALTY CARE COORDINATION TELEPHONE ENCOUNTER 2nd attempt for post op phone call LVM with call back number Allergies As of Date: 12/06/2024 Noted Allergy Reaction PENICILLINS 10/26/2022 10 - Anaphylaxis 3 - Cough 4 - Hives 9 - Itching 2 - Rash 12 - Shortness of Breath 7 - Swelling 16 - Unknown Comments: Other Reaction(s): throat swelling and hives TOPIRAMATE 01/04/2023 5 - Intolerance Comments: Other Reaction(s): seizures Date Reviewed: 12/05/2024 Reviewed by: Sudarshan Russell MA - Fully Assessed Reason for Visit: Post Op Call [[id number]] Prescriptions as of 12/06/2024 - methocarbamol (ROBAXIN) 750 mg tablet Take 1 tablet by mouth three times a day as needed for up to 10 days. - doxycycline hyclate (VIBRAMYCIN) 100 mg capsule Take 1 capsule by mouth two times a day for 10 days. - oxyCODONE IR (ROXICODONE) 5 mg immediate release tablet Take 1 tablet by mouth every 6 hours as needed for pain for up to 7 days. - acetaminophen (TYLENOL EXTRA STRENGTH) 500 mg tablet Take 2 tablets by mouth every 6 hours as needed for pain. - enoxaparin (LOVENOX) 40 mg/0.4 mL Inject 0.4 mL subcutaneously every 12 hours. - DULoxetine (CYMBALTA) 30 mg capsule Take 1 capsule by mouth once daily. - metFORMIN (GLUCOPHAGE) 500 mg tablet Take 1 tablet by mouth every 12 hours. - amLODIPine (NORVASC) 10 mg tablet Take 10 mg by mouth. - fluocinonide (LIDEX) 0.05 % external solution APPLY TO THE AFFECTED AREA(S) topically DAILY - levothyroxine (SYNTHROID) 137 mcg tablet TAKE [...] each day at the same time - vit B-comp w-Fe,Ca,FA<1mg (IRON-VITAMINS ORAL) Problem List As Of Date 12/06/2024 Noted Resolved GERD (gastroesophageal reflux disease) [K21.9] 11/06/2024 Hypothyroidism [E03.9] 10/23/2022 Hypertension [I10] 11/06/2024 Iron deficiency anemia [D50.9] 10/20/2022 Psoriatic arthritis (HCC) [L40.50] 11/06/2024 Inappropriate sinus tachycardia (HCC) [I47.11] 11/06/2024 Insulin resistance [E88.819] 11/06/2024 Class 3 severe obesity without serious comorbid*11/06/2024 Ventral hernia without obstruction or gangrene *11/23/2024 S/P hernia repair [Z98.890, Z87.19] 11/26/2024 Morbid obesity with BMI of 45.0-49.9, adult (HC*11/26/2024 Acute postoperative pain [G89.18] 11/26/2024 Hypokalemia [E87.6] 11/27/2024 Hypophosphataemia [E83.39] 11/27/2024 Postoperative cellulitis of surgical wound [T81*11/27/2024 Encounter Status:Closed by KRISTI WATTS on 12/06/24 [facility] CNOVon 12-05-2024 CNOV Office Visit (JENNIFER ) TIFFANI ALLISON ([id number]) 1985 F Date Time Provider Department 12/05/24 11:00 AM GINGER SILVEIRA During your visit today, we recorded the following information about you: Temperature Pulse Blood pressure Weight 97.3 degrees 81/minute 126/80 134.3 kg Height 1.778 m Sudarshan Russell MA 12/05/2024 1:10 PM Signed What is the reason for your visit today? Post op Who is your referring physician? Dr. Silveira Are you having poor oral intake? NO Have you had unintentional weight loss of 15 lbs/7 Kg in the last 3-6 months? NO Bowels: constipation Wound: drainage blood Temperature: No Drains: Yes Ginger Lux APRN.CNP 12/05/2024 1:10 PM Signed [facility] Clinic Date: December 05, 2024 Tiffani Allison 39 year old female CHIEF COMPLAINT: Patient presents for follow up from surgery. HPI: Here for follow up after open bilateral TAR, incisional hernia repair and implantation of mesh on 11/23/[address] Jeff. Patient also underwent with Raine Grissom M.D. ([place]), a laparoscopic paraesophageal hernia repair and conversion to Becki-en-Y gastric bypass. She reports significant pain and is currently taking oxycodone, for which she had received a one time refill. She was previously prescribed methocarbamol 500 mg but reports it was ineffective and is requesting a higher dose. She has been taking Tylenol for breakthrough pain but finds it insufficient. She has not used heat or ice for pain management. Tiffani has a drain in place, which she finds painful and irritating.Output 30 ml/day. She reports redness around the drain site. She notes that the lower half of her incision appears to be opening and has been draining fluid for the past two nights. She denies any fevers. She recently completed a course of doxycycline which was prescribed for erythema at the lower portion of her midline. The erythema has persisted. She describes an intense ache in the lower abdomen, feeling like something is pulling. She is having regular bowel movements every other day and is taking a stool softener. She denies any issues with urination. She is ambulating frequently. Surgery Date and Procedure: 11/23/2024 Open left posterior myofascial component separation, open right posterior myofascial component separation, and incisional hernia repair with mesh. Randomized Controlled Trial: N/A Current Medications: Current Outpatient Medications Medication Sig Dispense Refill methocarbamol (ROBAXIN) 750 mg tablet Take 1 tablet by mouth three times a day as needed for up to 10 days. 30 tablet 0 oxyCODONE IR (ROXICODONE) 5 mg immediate release tablet Take 1 tablet by mouth every 6 hours as needed for pain for up to 7 days. 28 tablet 0 acetaminophen (TYLENOL EXTRA STRENGTH) 500 mg tablet Take 2 tablets by mouth every 6 hours as needed for pain. enoxaparin (LOVENOX) 40 mg/0.4 mL Inject 0.4 mL subcutaneously every 12 hours. 24 mL 0 DULoxetine (CYMBALTA) 30 mg capsule Take 1 capsule by mouth once daily. metFORMIN (GLUCOPHAGE) 500 mg tablet Take 1 tablet by mouth every 12 hours. (Patient not taking: Reported on 12/05/2024) amLODIPine (NORVASC) 10 mg tablet Take 10 mg by mouth. fluocinonide (LIDEX) 0.05 % external solution APPLY TO THE AFFECTED AREA(S) topically DAILY levothyroxine (SYNTHROID) 137 mcg tablet TAKE 1 TABLET BY MOUTH IN THE MORNING BEFORE MEALS melatonin 1 mg chew Take by mouth. metoprolol succinate ER (TOPROL XL) 100 mg Take 100 mg by mouth. omeprazole (PRILOSEC) 40 mg capsule Take 40 mg by mouth. (Patient not taking: Reported on 12/05/2024) ondansetron orally disintegrating (ZOFRAN ODT) 4 mg disintegrating tablet 1 (one) time each day at the same time vit B-comp w-Fe,Ca,FA<1mg (IRON-VITAMINS ORAL) No current facility-administered medications for this visit. REVIEW OF SYSTEMS: Constitutional: (-) fever Gastrointestinal: (+) constipation, (-) vomiting Genitourinary: (-) urinary problems Musculoskeletal: (+) incisional pain, (+) muscle spasms Skin: (+) incisional redness, (+) pruritus, (+) wound drainage Neurological: (+) dizziness PHYSICAL EXAM: BP 126/80 Pulse 81 Temp 36.3 ?C (97.3 ?F) (Temporal) Ht 177.8 cm (5' 10 ) Wt 134.3 kg (296 lb) LMP 11/23/2024 (Exact Date) BMI 42.47 kg/m? General: No acute distress. Abd: Incision erythematous and tender at inferior aspect, partial dehiscence with serous drainage, depth of dehiscence approximately 6.4 cm SURGICAL PATHOLOGY: N/A ASSESSMENT/PLAN: 1. Postoperative visit (Z48.89) Patient is experiencing significant pain and discomfort following recent surgery, with reports of incision site opening and drainage. Currently taking oxycodone for pain management and has completed a course of doxycycline. Methocarbamol 500 mg was ineffective for muscle spasms. No fev (more content not included)... Normal [facility] CNPNon 12-05-2024 CNPN Telephone ([employer]) TIFFANI ALLISON ([id number]) 1985 F Date Time Provider Department 12/05/24 KRISTI WATTS During your visit today, we recorded the following information about you: Kristi Watts RN 12/05/2024 11:18 AM Signed [facility] SPECIALTY CARE COORDINATION TELEPHONE ENCOUNTER Post op call, Pt will call me back he answered and she was at an appointment Allergies As of Date: 12/05/2024 Noted Allergy Reaction PENICILLINS 10/26/2022 10 - Anaphylaxis 3 - Cough 4 - Hives 9 - Itching 2 - Rash 12 - Shortness of Breath 7 - Swelling 16 - Unknown Comments: Other Reaction(s): throat swelling and hives TOPIRAMATE 01/04/2023 5 - Intolerance Comments: Other Reaction(s): seizures Date Reviewed: 12/05/2024 Reviewed by: Sudarshan Russell MA - Fully Assessed Reason for Visit: Post Op Call [[id number]] Prescriptions as of 12/05/2024 - methocarbamol (ROBAXIN) 750 mg tablet Take 1 tablet by mouth three times a day as needed for up to 10 days. - oxyCODONE IR (ROXICODONE) 5 mg immediate release tablet Take 1 tablet by mouth every 6 hours as needed for pain for up to 7 days. - acetaminophen (TYLENOL EXTRA STRENGTH) 500 mg tablet Take 2 tablets by mouth every 6 hours as needed for pain. - enoxaparin (LOVENOX) 40 mg/0.4 mL Inject 0.4 mL subcutaneously every 12 hours. - DULoxetine (CYMBALTA) 30 mg capsule Take 1 capsule by mouth once daily. - metFORMIN (GLUCOPHAGE) 500 mg tablet Take 1 tablet by mouth every 12 hours. - amLODIPine (NORVASC) 10 mg tablet Take 10 mg by mouth. - fluocinonide (LIDEX) 0.05 % external solution APPLY TO THE AFFECTED AREA(S) topically DAILY - levothyroxine (SYNTHROID) 137 mcg tablet TAKE [...] each day at the same time - vit B-comp w-Fe,Ca,FA<1mg (IRON-VITAMINS ORAL) Problem List As Of Date 12/05/2024 Noted Resolved GERD (gastroesophageal reflux disease) [K21.9] 11/06/2024 Hypothyroidism [E03.9] 10/23/2022 Hypertension [I10] 11/06/2024 Iron deficiency anemia [D50.9] 10/20/2022 Psoriatic arthritis (HCC) [L40.50] 11/06/2024 Inappropriate sinus tachycardia (HCC) [I47.11] 11/06/2024 Insulin resistance [E88.819] 11/06/2024 Class 3 severe obesity without serious comorbid*11/06/2024 Ventral hernia without obstruction or gangrene *11/23/2024 S/P hernia repair [Z98.890, Z87.19] 11/26/2024 Morbid obesity with BMI of 45.0-49.9, adult (HC*11/26/2024 Acute postoperative pain [G89.18] 11/26/2024 Hypokalemia [E87.6] 11/27/2024 Hypophosphataemia [E83.39] 11/27/2024 Postoperative cellulitis of surgical wound [T81*11/27/2024 Encounter Status:Closed by KRISTI WATTS on 12/05/24 Normal [facility] Basic metabolic 2000 panelon 11-27-2024 Anion gap [Moles/Vol] 11 mmol/L Normal 8-15 [facility] Comment on above: Order Comment: Speci men Type: BLOOD SPECIMEN Ordering Facility: [facility] Address: [address] [place], [place] [id number] Performed By: #### 2 4321-2, 2776-08, #### [facility] CLIA [id number] [address] [place], [place] [address] [place] Calcium [Mass/Vol] 8.6 mg/dL Normal 8.5-10.2 [facility] Comment on above: Order Comment: Speci men Type: BLOOD SPECIMEN Ordering Facility: [facility] Address: [address] [place] [address] Performed By: #### 2 4321-2, 2776-08, #### [facility] CLIA [id number] [address] [place], [place] [address] [place] Chloride [Moles/Vol] 101 mmol/L Normal 98-107 [facility] Comment on above: Order Comment: Speci men Type: BLOOD SPECIMEN Ordering Facility: [facility] Address: [address] [place] [address] Performed By: #### 2 4321-2, 2776-08, #### [facility] CLIA [id number] [address] [place], [place] [address] [place] CO2 [Moles/Vol] 28 mmol/L Normal 22-30 [facility] Comment on above: Order Comment: Speci men Type: BLOOD SPECIMEN Ordering Facility: [facility] Address: [address] [place], [place] [address] Performed By: #### 2 4321-2, 2776-08, #### [facility] CLIA [id number] [address] [place] [address] [place] Creatinine [Mass/Vol] 0.63 mg/dL Normal 0.58-0.96 [facility] Comment on above: Order Comment: Christiano cardozo Type: BLOOD SPECIMEN Ordering Facility: [facility] Address: [address] [place] [address] Performed By: #### 2 4321-2, 2776-08, #### [facility] CLIA [id number] [address] [place] [address] [place] Creatinine and Glomerular filtration rate.predicted panel (S/P/Bld) 117 mL/min/1.73m??? Normal >=60 [facility] Comment on above: Order Comment: Christiano cardozo Type: BLOOD SPECIMEN Ordering Facility: [facility] Address: [address] [place] [address] Result Comment: Ayla mated Glomerular Filtration Rate (eGFR) is calculated using the 2020 CKD-EPI creatinine equation. This equation utilizes serum creatinine, sex, and age as parameters. The creatinine assay has traceable calibration to isotope dilution-mass spectrometry. Refer to KDIGO guidelines for clinical interpretation. In patients with unstable renal function, e.g. those with acute kidney injury, the eGFR may not accurately reflect actual GFR. Performed By: #### 2 4321-2, 2776-08, #### [facility] CLIA [id number] [address] [place] [address] [place] Glucose [Mass/Vol] 85 mg/dL Normal 74-99 [facility] Comment on above: Order Comment: Christiano cardozo Type: BLOOD SPECIMEN Ordering Facility: [facility] Address: [address] [place] [address] Result Comment: The [place] Diabetes Association (ADA) provides guidance for cutoff values for fasting glucose and random glucose. The ADA defines fasting as no caloric intake for at least 8 hours. Fasting plasma glucose results between 100 to 125 mg/dL indicate increased risk for diabetes (prediabetes). Fasting plasma glucose results greater than or equal to 126 mg/dL meet the criteria for diagnosis of diabetes. In the absence of unequivocal hyperglycemia, results should be confirmed by repeat testing. In a patient with classic symptoms of hyperglycemia or hyperglycemic crisis, random plasma glucose results greater than or equal to 200 mg/dL meet the criteria for diagnosis of diabetes. Reference: Standards of Medical Care in Diabetes 2016, [place] [employer] Association. Diabetes Care. 2016.39(Suppl 1). Performed By: #### 2 4321-2, 2776-08, #### [facility] CLIA [id number] [address] [place] [address] [place] Potassium [Moles/Vol] 3.4 mmol/L Low 3.7-5.1 [facility] Comment on above: Order Comment: Speci men Type: BLOOD SPECIMEN Ordering Facility: [facility] Address: [address] [place] [address] Performed By: #### 2 4321-2, 2776-08, #### [facility] CLIA [id number] [address] [place] [address] [place] Sodium [Moles/Vol] 140 mmol/L Normal 136-144 [facility] Comment on above: Order Comment: Speci men Type: BLOOD SPECIMEN Ordering Facility: [facility] Address: [address] [place] [address] Performed By: #### 2 4321-2, 2776-08, #### [facility] CLIA [id number] [address] [place] [address] [place] Urea nitrogen [Mass/Vol] 6 mg/dL Low 7-21 [facility] Comment on above: Order Comment: Speci men Type: BLOOD SPECIMEN Ordering Facility: [facility] Address: [address] [place] [address] Performed By: #### 2 4321-2, 2776-08, #### [facility] CLIA [id number] [address] [place] [address] [place] CBC W Auto Differential pane l (Bld)on 11-27-2024 Basophils (Bld) [#/Vol] 10*3/uL Normal <0.11 [facility] Comment on above: Order Comment: Speci men Type: BLOOD SPECIMENOrdering Facility: [facility] Address: [address] [place] [address] Performed By: #### 5 7021-8 ####[facility] [id number] [address] [place] [address] [place] Basophils/100 WBC (Bld) 0.2 % Normal [facility] Comment on above: Order Comment: Speci men Type: BLOOD SPECIMENOrdering Facility: [facility] Address: [address] [place] [address] Performed By: #### 5 7021-8 ####[facility] [id number] [address], [place] [address] [place] Differential cell count method Nom (Bld) Auto Normal [facility] Comment on above: Order Comment: Speci men Type: BLOOD SPECIMENOrdering Facility: [facility] Address: [address] [place] [address] Performed By: #### 5 7021-8 ####[facility] [id number] [address], [place] [address] [place] Eosinophils (Bld) [#/Vol] 0.23 10*3/uL Normal <0.46 [facility] Comment on above: Order Comment: Speci men Type: BLOOD SPECIMENOrdering Facility: [facility] Address: [address] [place] [address] Performed By: #### 5 7021-8 ####[facility] [id number] [facility] [address], [facility] [place] Eosinophils/100 WBC (Bld) 2.8 % Normal [facility] Comment on above: Order Comment: Speci men Type: BLOOD SPECIMENOrdering Facility: [facility] Address: [address] [place] [address] Performed By: #### 5 7021-8 ####[facility] [id number] [place] [id number] [place] Erythrocyte distribution width (RBC) [Ratio] 13.4 % Normal 11.5-15.0 [facility] Comment on above: Order Comment: Speci men Type: BLOOD SPECIMENOrdering Facility: [facility] Address: [address] [place] [address] Performed By: #### 5 7021-8 ####[facility] [id number] [place] [address] [place] Hematocrit (Bld) [Volume fraction] 35.0 % Low 36.0-46.0 [facility] Comment on above: Order Comment: Speci men Type: BLOOD SPECIMENOrdering Facility: [facility] Address: [address] [place] [address] Performed By: #### 5 7021-8 ####[facility] [id number] [place] [address] [place] Hemoglobin (Bld) [Mass/Vol] 11.8 g/dL Normal 11.5-15.5 [facility] Comment on above: Order Comment: Speci men Type: BLOOD SPECIMENOrdering Facility: [facility] Address: [address] [place] [address] Performed By: #### 5 7021-8 ####[facility] [id number] [place] [address] [place] Immature granulocytes (Bld) [#/Vol] 0.04 10*3/uL Normal <0.10 [facility] Comment on above: Order Comment: Speci men Type: BLOOD SPECIMENOrdering Facility: [facility] Address: [address] [place] [address] Performed By: #### 5 7021-8 ####[facility] [id number] [place] [address] [place] Immature granulocytes/100 WBC (Bld) 0.5 % Normal [facility] Comment on above: Order Comment: Speci men Type: BLOOD SPECIMENOrdering Facility: [facility] Address: [address] [place] [address] Performed By: #### 5 7021-8 ####[facility] [id number] [place] [address] [place] Lymphocytes (Bld) [#/Vol] 1.67 10*3/uL Normal 1.00-4.00 [facility] Comment on above: Order Comment: Speci men Type: BLOOD SPECIMENOrdering Facility: [facility] Address: [address] [place] [address] Performed By: #### 5 7021-8 ####[facility] [id number] [place] [address] [place] Lymphocytes/100 WBC (Bld) 20.5 % Normal [facility] Comment on above: Order Comment: Speci men Type: BLOOD SPECIMENOrdering Facility: [facility] Address: [address] [place] [address] Performed By: #### 5 7021-8 ####[facility] [id number] [place] [address] [place] MCH (RBC) [Entitic mass] 29.1 pg Normal 26.0-34.0 [facility] Comment on above: Order Comment: Speci men Type: BLOOD SPECIMENOrdering Facility: [facility] Address: [address] [place] [address] Performed By: #### 5 7021-8 ####[facility] [id number] [place] [address] [place] MCHC (RBC) [Mass/Vol] 33.7 g/dL Normal 30.5-36.0 [facility] Comment on above: Order Comment: Speci men Type: BLOOD SPECIMENOrdering Facility: [facility] Address: [address] [place] [address] Performed By: #### 5 7021-8 ####[facility] [id number] [place] [address] [place] MCV (RBC) [Entitic vol] 86.2 fL Normal 80.0-100.0 [facility] Comment on above: Order Comment: Speci men Type: BLOOD SPECIMENOrdering Facility: [facility] Address: [address] [place] [address] Performed By: #### 5 7021-8 ####[facility] [facility] LAB[facility] [id number] [place] [address] [place] Monocytes (Bld) [#/Vol] 0.67 10*3/uL Normal <0.87 [facility] Comment on above: Order Comment: Speci men Type: BLOOD SPECIMENOrdering Facility: [facility] Address: [address] [place] [address] Performed By: #### 5 7021-8 ####[facility] LABCLIA [id number] [place] [address] [place] Monocytes/100 WBC (Bld) 8.2 % Normal [facility] Comment on above: Order Comment: Speci men Type: BLOOD SPECIMENOrdering Facility: [facility] Address: [address] [place] [address] Performed By: #### 5 7021-8 ####[facility] LABCLIA [id number] [place] [address] [place] Neutrophils (Bld) [#/Vol] 5.51 10*3/uL Normal 1.45-7.50 [facility] Comment on above: Order Comment: Speci men Type: BLOOD SPECIMENOrdering Facility: [facility] Address: [address] [place] [address] Performed By: #### 5 7021-8 ####[facility] LABCLIA [id number] [place] [address] [place] Neutrophils/100 WBC (Bld) 67.8 % Normal [facility] Comment on above: Order Comment: Speci men Type: BLOOD SPECIMENOrdering Facility: [facility] Address: [address] [place] [address] Performed By: #### 5 7021-8 ####[facility] LABIA [id number] [place] [id number] [place] Nucleated RBC (Bld) [#/Vol] 10*3/uL Normal <0.01 [facility] Comment on above: Order Comment: Speci men Type: BLOOD SPECIMENOrdering Facility: [facility] Address: [address] [place] [address] Performed By: #### 5 7021-8 ####[facility] LABIA [id number] [place] [address] [place] Nucleated RBC/100 WBC (Bld) [Ratio] 0.0 /100 WBC Normal [facility] Comment on above: Order Comment: Speci men Type: BLOOD SPECIMENOrdering Facility: [facility] Address: [address] [place] [address] Performed By: #### 5 7021-8 ####[facility] LABIA [id number] [place] [address] [place] Platelet mean volume (Bld) [Entitic vol] 9.9 fL Normal 9.0-12.7 [facility] Comment on above: Order Comment: Speci men Type: BLOOD SPECIMENOrdering Facility: [facility] Address: [address] [place] [address] Performed By: #### 5 7021-8 ####[facility] LABIA [id number] [place] [id number] [place] Platelets (Bld) [#/Vol] 280 10*3/uL Normal 150-400 [facility] Comment on above: Order Comment: Speci men Type: BLOOD SPECIMENOrdering Facility: [facility] Address: [address] [place] [address] Performed By: #### 5 7021-8 ####[facility] LABCLIA [id number] [place] [address] [place] RBC (Bld) [#/Vol] 4.06 10*6/uL Normal 3.90-5.20 [facility] Comment on above: Order Comment: Speci men Type: BLOOD SPECIMENOrdering Facility: [facility] Address: [address] [place] [address] Performed By: #### 5 7021-8 ####[facility] LABIA [id number] [place] [address] [place] WBC (Bld) [#/Vol] 8.14 10*3/uL Normal 3.70-11.00 [facility] Comment on above: Order Comment: Speci men Type: BLOOD SPECIMENOrdering Facility: [facility] Address: [address] [place] [address] Performed By: #### 5 7021-8 ####[facility] LABIA [id number] [address] [place] CNDSon 11-27-2024 CNDS HNO ID: [id number] Author: JAIMIE CHATTERJEE APRN.CNP Service: General Surgery Author Type: Nurse Practitioner Type: Discharge Summary Filed: 11/27/2024 10:16 Note Text: Attestation signed by Rocio Jeff MD at 11/30/2024 3:05 PM Rocio Jeff MD November 30, 2024 3:05 PM GENERAL SURGERY DISCHARGE SUMMARY PATIENT NAME: Tiffani Allison ADMISSION DATE: 11/23/2024 DISCHARGE DATE: 11/27/2024 ATTENDING PHYSICIAN: Rocio Jeff MD Code Status: Not on file Highest Readmission Risk Score: 7 The 30 day readmissions risk score is derived from an internally validated risk model which evaluates patient level characteristics, utilization history, medication orders and lab results up until the day of discharge. Patients with a score of 39 or above are considered highest risk for readmission. Specific patient level drivers will be listed at the bottom of the summary. REASON FOR HOSPITALIZATION: Surgery and recovery OPERATIONS DURING HOSPITALIZATION: Laparoscopic paraesphageal hernia repair Laparoscopic converted to open conversion of gastric sleeve to a Becki en Y gastric bypass Open right myofascial advancement flap Open left myofascial advancement flap Abdominal wall reconstruction with mesh Direct bilateral TAP block PROCEDURES DURING HOSPITALIZATION: IV access Intubation for surgery Anesthesia administration HOSPITAL COURSE: Tiffani Allison is a 39-year-old female with a PMHx of HTN, GERD, hypothyroidism, psoriatic arthritis, severe obesity who is now s/p ventral incisional hernia repair with bilateral TAR, placement of retromuscular mesh (Dr. Jeff) and laparoscopic converted to open paraesophageal hernia repair, gastric sleeve conversion to Becki-en-Y bypass (Dr. Grissom). See operative report for details. She recovered in the PACU and transferred to the [facility] for the remainder of her postoperative care. She was started on IV pain medications. Her hospital course is as follows: 11/24 - POD 1 - APMS consult for pain control. Advanced to phase II bariatric diet. Ramirez removed. 11/25 - Ketamine gtt stopped. Tolerating diet. 11/26 - Weaning PHOTO EQUIPMENT TECHNICIAN today. 11/27 - Tolerating diet, pain controlled and voiding freely. Started on doxycycline for incisional erythema. She will complete a 1 week course. Stable for discharge home. Left SANJUANITA drains removed. Follow up requested in 1 week for SANJUANITA drain removal. Active Hospital Problems Diagnosis Date Noted Ventral hernia without obstruction or gangrene 11/23/2024 Hypokalemia 11/27/2024 Hypophosphataemia 11/27/2024 Postoperative cellulitis of surgical wound 11/27/2024 S/P hernia repair 11/26/2024 Morbid obesity with BMI of 45.0-49.9, adult ([facility]) 11/26/2024 Acute postoperative pain 11/26/2024 GERD (gastroesophageal reflux disease) 11/06/2024 Hypertension 11/06/2024 Psoriatic arthritis (HCC) 11/06/2024 Hypothyroidism 10/23/2022 Resolved Hospital Problems No resolved problems to display. Transitions of Care Critical Issues: Follow up in 1 week for SANJUANITA drain removal. LABS AND PROCEDURES PENDING AT DISCHARGE: No pending results. CONSULTING TEAMS DURING HOSPITALIZATION: Bariatric surgery, [facility] Treatment Team: Attending Provider: Rocio Jeff MD Consulting: YESY BARIATRIC SURGERY PATIENT CONDITION AT DISCHARGE: Stable DISCHARGE DISPOSITION: Home with Self Care INFORMATION PROVIDED TO PATIENT: DCI DIET: Bariatric Phase 2 diet: Full liquid, carbohydrate controlled ACTIVITY: Lifting is restricted to: less than 10 lbs for 4-6 weeks May bathe and shower No walking restrictions No driving while on narcotics May use stairs WOUND/SURGICAL SITE CARE: Leave open to air ALLERGIES Allergen Reactions Penicillins Anaphylaxis, Cough, Hives, Itching, Rash, Shortness of Breath, Swelling, Unknown Other Reaction(s): throat swelling and hives Topiramate Intolerance Other Reaction(s): seizures DISCHARGE MEDICATION: Medication List START taking these medications acetaminophen 500 mg tablet Commonly known as: TYLENOL EXTRA STRENGTH Take 2 tablets by mouth every 6 hours as needed for pain. Replaces: acetaminophen 325 mg Cap doxycycline hyclate 100 mg capsule Commonly known as: VIBRAMYCIN Take 1 capsule by mouth every 12 hours at 6 am and 6 pm for 7 days. methocarbamol 500 mg tablet Commonly known as: ROBAXIN Take 1 tablet by mouth three times a day as needed (Muscle spasms) for up to 5 days. oxyCODONE IR 5 mg immediate release tablet Commonly known as: ROXICODONE Take 1 tablet by mouth every 6 hours as needed for pain for up to 7 days. CHANGE how you take these medications levothyroxine 137 mcg tablet Commonly known as: SYNTHROID What changed: Another medication with the same name was removed. Continue taking this medication, and follow (more content not included)... Normal [facility] CONSULTon 11-27-2024 CONSULT HNO ID: [id number] Author: YAN RANDALL MD Service: General Surgery Author Type: Resident Type: Consults Filed: 11/27/2024 07:30 Note Text: Bariatric Surgery Pager: [phone] SURGERY CONSULT PROGRESS NOTE Patient Name: Tiffani Allison Date: November 27, 2024 ASSESSMENT AND PLAN: Tiffani Allison is a 39 year old PMHx notable for GERD, recent smoker, hypothyroidism, prior sleeve gastrectomy and s/p laparoscopic PEHR and conversion to RYGB, with abdominal wall reconstruction on 11/23/24. Overall patient doing well in the immediate post op period. PHOTO EQUIPMENT TECHNICIAN is off, and pain slightly better controlled but using IV narcotic. Pending patient's pain toleration, okay to DC from Bariatric perspective. Recommendations: - Phase II diet - Wean PHOTO EQUIPMENT TECHNICIAN as able - Encourage protein shake intake - wean O2 as able - Monitor for diet toleration - continue lovenox - ambulation encouraged - IS and SCDs - okay to DC from bariatric perspective Appreciate hernia surgery team care. Plan of care discussed with staff. Yan Randall MD General Surgery Resident Bariatric Surgery Pager: [phone] On nights (6 pm to 6 am) and on Weekends/Holidays, please page the on-call pager: [phone] 7:21 AM, 11/27/2024 --- INTERVAL: No acute events overnight. PHOTO EQUIPMENT TECHNICIAN and ketamin off Tolerating 1.5 protein shakes without concern. OBJECTIVE: Physical Exam BP 137/71 Pulse 88 Temp (Src) 99 (Oral) Resp 16 Ht 5' 10 (1.78m) Wt 319 lb (144.7kg) SpO2 93% LMP 11/23/2024 BMI 45.77 kg/(m2). O2 Therapy: Room Air, Liters (Numeric Only): 2.00 General: comfortable, no acute distress Cardiac: extremities warm and well-perfused Pulm: normal respiratory effort on Ra Abd: soft, appropriately tender, minimally distended, incision CDI with mild erythema at midline incision Neuro: alert, oriented, no gross motor/sensory deficit Intake/Output Intake/Output Summary (Last 24 hours) at 11/27/2024 0721 Last data filed at 11/27/2024 0538 Gross per 24 hour Intake 1790 ml Output 1141 ml Net 649 ml Labs Reviewed Recent Labs 11/26/24 0732 11/26/24 0731 11/25/24 1026 11/25/24 0407 11/25/24 0406 WBC 8.27 -- 8.65 -- 7.84 HB 12.3 -- 12.2 -- 11.0* HCT 36.6 -- 36.1 -- 33.1* PLT 232 -- 212 -- 205 NA -- 140 141 141 -- K -- 3.6* 4.1 6.7* -- CHLOR -- 102 106 108* -- CO2 -- -- CREAT -- 0.58 0.53* 0.47* -- BUN -- 5* 5* 4* -- GLUC -- 89 96 76 -- P -- 2.5* -- 2.1* -- MG -- 2.0 -- 1.8 -- CA -- 8.7 8.5 8.0* -- Imaging Reviewed No new imaging. Normal [facility] Magnesium [facility] 11-27 Magnesium [Mass/Vol] 2.0 mg/dL Normal 1.7-2.3 [facility] Comment on above: Order Comment: Speci men Type: BLOOD SPECIMEN [facility] Address: [address] [place] [address] Performed By: #### 2 4321-2, 27701-29, #### [facility] CLIA [id number] [address] [place] [address] [place] Phosphate SerPl-mCncon 11-27 Phosphate [Mass/Vol] 2.9 mg/dL Normal 2.7-4.8 [facility] Comment on above: Order Comment: Speci men Type: BLOOD SPECIMEN [facility]ing [facility]: [facility] Address: [address] [place] [address] Performed By: #### 2 4321-2, 27701-29, #### [facility] CLIA [id number] [address] [place] [address] [place] THERAPY NTon 11-27-2024 THERAPY NT HNO ID: [id number] Author: JESSI MALONEY OTR/Ajith Service: Occupational Therapy Author Type: Occupational Therapist Type: Therapy (PT/OT/Speech/Resp) Filed: 11/27/2024 08:13 Note Text: THERAPY COMMUNICATION NOTE SERVICE DATE: 11/27/2024 ROOM: [place] [id number] Physical therapy consult received. Chart reviewed. No acute skilled physical therapy needs identified. Pt with a documented Nursing 6 Clicks score of 23-24 indicating that the patient is supervised or independent with all mobility. Will discontinue Physical Therapy Consult at this time. Please re-consult if the patient has a change of condition and develops mobility deficits that require skilled therapy. Refer to outpatient therapy if there are further concerns. Thank you. Occupational therapy consult received. Chart reviewed. No acute skilled occupational therapy needs identified. Pt with a documented Nursing 6 Clicks score of 23 or 24 indicating that the patient is supervised or independent with all mobility. No acute cognitive, vision, or UE deficits identified in chart. Will discontinue Occupational Therapy Consult at this time. Please re-consult if the patient has a change of condition and develops mobility, ADL or cognitive deficits that require skilled therapy. Refer to outpatient therapy if there are further concerns. Thank you. SIGNATURE: JAMES Ace/Ajith PATIENT NAME: Tiffani Allison DATE: November 27, 2024 TIME: 8:13 AM Normal [facility] Basic metabolic 2000 panelon 11-26-2024 Anion gap [Moles/Vol] 10 mmol/L Normal 8-15 [facility] Comment on above: Order Comment: Christiano cardozo Type: BLOOD SPECIMEN [facility] Address: [address] [place] [address] Performed By: #### 2 4321-2, 2777-1, 80791-5 #### [facility] CLIA [id number] [address] [place] [address] [place] Calcium [Mass/Vol] 8.7 mg/dL Normal 8.5-10.2 [facility] Comment on above: Order Comment: Christiano cardozo Type: BLOOD SPECIMEN [facility] Address: [address] [place] [address] Performed By: #### 2 4321-2, 27701-29, #### [facility] CLIA [id number] [address] [place] [address] [place] Chloride [Moles/Vol] 102 mmol/L Normal 98-107 [facility] Comment on above: Order Comment: Speci men Type: BLOOD SPECIMEN [facility] Address: [address] [place] [address] Performed By: #### 2 4321-2, 27701-29, #### [facility] CLIA [id number] [address] [place] [address] [place] CO2 [Moles/Vol] 28 mmol/L Normal 22-30 [facility] Comment on above: Order Comment: Speci men Type: BLOOD SPECIMEN [facility] Address: [address] [place] [address] Performed By: #### 2 4321-2, 27701-29, #### [facility] CLIA [id number] [address] [place] [address] [place] Creatinine [Mass/Vol] 0.58 mg/dL Normal 0.58-0.96 [facility] Comment on above: Order Comment: Speci men Type: BLOOD SPECIMEN [facility] Address: [address] [place] [address] Performed By: #### 2 4321-2, 27701-29, #### [facility] CLIA [id number] [address] [place], [place] [id number] [place] Creatinine and Glomerular filtration rate.predicted panel (S/P/Bld) 119 mL/min/1.73m??? Normal >=60 [facility] Comment on above: Order Comment: Speci men Type: BLOOD SPECIMEN [facility]ing [facility]: [facility] Address: [address] [place], [place] [address] Result Comment: Ayla mated Glomerular Filtration Rate (eGFR) is calculated using the 2020 CKD-EPI creatinine equation. This equation utilizes serum creatinine, sex, and age as parameters. The creatinine assay has traceable calibration to isotope dilution-mass spectrometry. Refer to KDIGO guidelines for clinical interpretation. In patients with unstable renal function, e.g. those with acute kidney injury, the eGFR may not accurately reflect actual GFR. Performed By: #### 2 4321-2, 2777-, #### [facility] CLIA [id number] [address] [place] [address] [place] Glucose [Mass/Vol] 89 mg/dL Normal 74-99 [facility] Comment on above: Order Comment: Christiano cardozo Type: BLOOD SPECIMEN [facility] Address: [address] [place] [address] Result Comment: The [place] Diabetes [employer] (ADA) provides guidance for cutoff values for fasting glucose and random glucose. The ADA defines fasting as no caloric intake for at least 8 hours. Fasting plasma glucose results between 100 to 125 mg/dL indicate increased risk for diabetes (prediabetes). Fasting plasma glucose results greater than or equal to 126 mg/dL meet the criteria for diagnosis of diabetes. In the absence of unequivocal hyperglycemia, results should be confirmed by repeat testing. In a patient with classic symptoms of hyperglycemia or hyperglycemic crisis, random plasma glucose results greater than or equal to 200 mg/dL meet the criteria for diagnosis of diabetes. Reference: Standards of Medical Care in Diabetes 2016, [place] [employer]. Diabetes Care. 2016.39(Suppl 1). Performed By: #### 2 4321-2, 27701-29, #### [facility] CLIA [id number] [address] [place] [address] [place] Potassium [Moles/Vol] 3.6 mmol/L Low 3.7-5.1 [facility] Comment on above: Order Comment: Christiano cardozo Type: BLOOD SPECIMEN [facility] Address: [address] [place] [address] Performed By: #### 2 4321-2, 27701-29, #### [facility] CLIA [id number] [address] [place] [address] [place] Sodium [Moles/Vol] 140 mmol/L Normal 136-144 [facility] Comment on above: Order Comment: Speci men Type: BLOOD SPECIMEN [facility] Address: [address] [place] [address] Performed By: #### 2 4321-2, 2777-1, 51007-5 #### [facility] CLIA [id number] [address] [place] [address] [place] Urea nitrogen [Mass/Vol] 5 mg/dL Low 7-21 [facility] Comment on above: Order Comment: Speci men Type: BLOOD SPECIMEN [facility] Address: [address] [place] [address] Performed By: #### 2 4321-2, 2777-1, 86740-5 #### [facility] CLIA [id number] [address] [place] [address] [place] CBC W Auto Differential pane l (Bld)on 11-26-2024 Basophils (Bld) [#/Vol] 0.03 10*3/uL Normal <0.11 [facility] Comment on above: Order Comment: Speci men Type: BLOOD SPECIMEN [facility]: [facility] Address: [address] [place] [address] Performed By: #### 5 7021-8 #### [facility] CLIA [id number] [address] [place] [address] [place] Basophils/100 WBC (Bld) 0.4 % Normal [facility] Comment on above: Order Comment: Speci men Type: BLOOD SPECIMEN [facility]: [facility] Address: [address] [place] [address] Performed By: #### 5 7021-8 #### [facility] CLIA [id number] [address] [place] [address] [place] Differential cell count method Nom (Bld) Auto Normal [facility] Comment on above: Order Comment: Speci men Type: BLOOD SPECIMEN [facility] Address: [address] [place] [address] Performed By: #### 5 7021-8 #### [facility] CLIA [id number] [address] [place] [address] [place] Eosinophils (Bld) [#/Vol] 0.16 10*3/uL Normal <0.46 [facility] Comment on above: Order Comment: Speci men Type: BLOOD SPECIMEN [facility]: [facility] Address: [address] [place] [address] Performed By: #### 5 7021-8 #### [facility] CLIA [id number] [address] [place] [address] [place] Eosinophils/100 WBC (Bld) 1.9 % Normal [facility] Comment on above: Order Comment: Speci men Type: BLOOD SPECIMEN [facility]: [facility] Address: [address] [place] [address] Performed By: #### 5 7021-8 #### [facility] CLIA [id number] [address] [place] [address] [place] Erythrocyte distribution width (RBC) [Ratio] 13.5 % Normal 11.5-15.0 [facility] Comment on above: Order Comment: Speci men Type: BLOOD SPECIMEN [facility]ing [facility]: [facility] Address: [address] [place] [address] Performed By: #### 5 7021-8 #### [facility] CLIA [id number] [address] [place] [address] [place] Hematocrit (Bld) [Volume fraction] 36.6 % Normal 36.0-46.0 [facility] Comment on above: Order Comment: Speci men Type: BLOOD SPECIMEN [facility]ing [facility]: [facility] Address: [address] [place] [address] Performed By: #### 5 7021-8 #### [facility] CLIA [id number] [address] [place] [address] [place] Hemoglobin (Bld) [Mass/Vol] 12.3 g/dL Normal 11.5-15.5 [facility] Comment on above: Order Comment: Speci men Type: BLOOD SPECIMEN [facility]ing [facility]: [facility] Address: [address] [place] [address] Performed By: #### 5 7021-8 #### [facility] CLIA [id number] [address] [place] [address] [place] Immature granulocytes (Bld) [#/Vol] 0.03 10*3/uL Normal <0.10 [facility] Comment on above: Order Comment: Speci men Type: BLOOD SPECIMEN [facility]ing [facility]: [facility] Address: [address] [place] [address] Performed By: #### 5 7021-8 #### [facility] CLIA [id number] [address] [place] [address] [place] Immature granulocytes/100 WBC (Bld) 0.4 % Normal [facility] Comment on above: Order Comment: Speci men Type: BLOOD SPECIMEN [facility]ing [facility]: [facility] Address: [address] [place] [address] Performed By: #### 5 7021-8 #### [facility] CLIA [id number] [address] [place] [address] [place] Lymphocytes (Bld) [#/Vol] 1.16 10*3/uL Normal 1.00-4.00 [facility] Comment on above: Order Comment: Speci men Type: BLOOD SPECIMEN [facility]ing [facility]: [facility] Address: [address] [place] [address] Performed By: #### 5 7021-8 #### [facility] CLIA [id number] [address] [place], [place] [address] [place] Lymphocytes/100 WBC (Bld) 14.0 % Normal [facility] Comment on above: Order Comment: Speci men Type: BLOOD SPECIMEN Ordering Facility: [facility] Address: [address] [place] [address] Performed By: #### 5 7021-8 #### [facility] CLIA [id number] [address] [place] [address] [place] MCH (RBC) [Entitic mass] 29.3 pg Normal 26.0-34.0 [facility] Comment on above: Order Comment: Speci men Type: BLOOD SPECIMEN Ordering Facility: [facility] Address: [address] [place] [address] Performed By: #### 5 7021-8 #### [facility] CLIA [id number] [address] [place] [address] [place] MCHC (RBC) [Mass/Vol] 33.6 g/dL Normal 30.5-36.0 [facility] Comment on above: Order Comment: Speci men Type: BLOOD SPECIMEN Ordering Facility: [facility] Address: [address] [place] [address] Performed By: #### 5 7021-8 #### [facility] CLIA [id number] [address] [place] [address] [place] MCV (RBC) [Entitic vol] 87.1 fL Normal 80.0-100.0 [facility] Comment on above: Order Comment: Speci men Type: BLOOD SPECIMEN [facility]ing Facility: [facility] Address: [address] [place] [address] Performed By: #### 5 7021-8 #### [facility] [facility] CLIA [id number] [address] [place] [address] [place] Monocytes (Bld) [#/Vol] 0.57 10*3/uL Normal <0.87 [facility] Comment on above: Order Comment: Speci men Type: BLOOD SPECIMEN Ordering Facility: [facility] Address: [address] [place] [address] Performed By: #### 5 7021-8 #### [facility] CLIA [id number] [address] [place] [address] [place] Monocytes/100 WBC (Bld) 6.9 % Normal [facility] Comment on above: Order Comment: Speci men Type: BLOOD SPECIMEN Ordering Facility: [facility] Address: [address] [place] [address] Performed By: #### 5 7021-8 #### [facility] CLIA [id number] [address] [place] [address] [place] Neutrophils (Bld) [#/Vol] 6.32 10*3/uL Normal 1.45-7.50 [facility] Comment on above: Order Comment: Speci men Type: BLOOD SPECIMEN Ordering Facility: [facility] Address: [address] [place] [address] Performed By: #### 5 7021-8 #### [facility] CLIA [id number] [address] [place] [address] [place] Neutrophils/100 WBC (Bld) 76.4 % Normal [facility] Comment on above: Order Comment: Speci men Type: BLOOD SPECIMEN Ordering Facility: [facility] Address: [address] [place] [address] Performed By: #### 5 7021-8 #### [facility] CLIA [id number] [address] [place] [address] [place] Nucleated RBC (Bld) [#/Vol] 10*3/uL Normal <0.01 [facility] Comment on above: Order Comment: Speci men Type: BLOOD SPECIMEN Ordering Facility: [facility] Address: [address] [place] [address] Performed By: #### 5 7021-8 #### [facility] CLIA [id number] [address] [place] [address] [place] Nucleated RBC/100 WBC (Bld) [Ratio] 0.0 /100 WBC Normal [facility] Comment on above: Order Comment: Speci men Type: BLOOD SPECIMEN Ordering Facility: [facility] Address: [address] [place] [address] Performed By: #### 5 7021-8 #### [facility] CLIA [id number] [address] [place] [address] [place] Platelet mean volume (Bld) [Entitic vol] 10.0 fL Normal 9.0-12.7 [facility] Comment on above: Order Comment: Speci men Type: BLOOD SPECIMEN Ordering Facility: [facility] Address: [address] [place] [address] Performed By: #### 5 7021-8 #### [facility] CLIA [id number] [address] [place] [address] [place] Platelets (Bld) [#/Vol] 232 10*3/uL Normal 150-400 [facility] Comment on above: Order Comment: Speci men Type: BLOOD SPECIMEN Ordering Facility: [facility] Address: [address] [place] [address] Performed By: #### 5 7021-8 #### [facility] CLIA [id number] [address] [place] [address] [place] RBC (Bld) [#/Vol] 4.20 10*6/uL Normal 3.90-5.20 [facility] Comment on above: Order Comment: Speci men Type: BLOOD SPECIMEN Ordering Facility: [facility] Address: [address] [place] [address] Performed By: #### 5 7021-8 #### [facility] CLIA [id number] [address] [place] [address] [place] WBC (Bld) [#/Vol] 8.27 10*3/uL Normal 3.70-11.00 [facility] Comment on above: Order Comment: Christiano cardozo Type: BLOOD SPECIMEN Ordering Facility: [facility] Address: [address] [place] [address] Performed By: #### 5 7021-8 #### [facility] CLIA [id number] [address] [place] [address] [place] [address] [place] CONSULTon 11-26-2024 CONSULT HNO ID: [id number] Author: YAN RANDALL MD Service: General Surgery Author Type: Resident Type: Consults Filed: 11/26/2024 07:25 Note Text: Attestation signed by Kirt Fitzgerald MD at 11/26/2024 5:20 PM Bariatric Surgery Fellow Attestation: Progressing well from bariatric perspective, tolerating water and protein shakes. Still has decent amount of pain, ket drip stopped and plan to wean off PHOTO EQUIPMENT TECHNICIAN today, transition to orals only. Patient seen and examined with the resident team. Agree with the plan as stated. Bariatric Surgery Pager: [phone] SURGERY CONSULT PROGRESS NOTE Patient Name: Tiffani Allison Date: November 26, 2024 ASSESSMENT AND PLAN: Tiffani Allison is a 39 year old PMHx notable for GERD, recent smoker, hypothyroidism, prior sleeve gastrectomy and s/p laparoscopic PEHR and conversion to RYGB, with abdominal wall reconstruction on 11/23/24. Overall patient doing well in the immediate post op period. She is having notable pain, keptamine gtt timed out but continues to use PHOTO EQUIPMENT TECHNICIAN heavily. Will continue MM pain control, and continued encouragement of protein intake. Recommendations: - Phase II diet - Wean PHOTO EQUIPMENT TECHNICIAN as able - Encourage protein shake intake - wean O2 as able - Monitor for diet toleration - continue lovenox - ambulation encouraged - IS and SCDs Appreciate hernia surgery team care. Plan of care discussed with staff. Yan Randall MD General Surgery Resident Bariatric Surgery Pager: [phone] On nights (6 pm to 6 am) and on Weekends/Holidays, please page the on-call pager: [phone] 7:23 AM, 11/26/2024 --- INTERVAL: No acute events overnight. Pain poorly controlled. Ketamine completed No nausea and tolerating water well, has not attempted much protein + BM Jps SS OBJECTIVE: Physical Exam BP 146/75 Pulse 79 Temp (Src) 98.6 (Oral) Resp 16 SpO2 97% LMP 11/23/2024 O2 Therapy: Nasal Cannula, Liters (Numeric Only): 3.00 General: comfortable, no acute distress Cardiac: extremities warm and well-perfused Pulm: normal respiratory effort on Ra Abd: soft, appropriately tender, minimally distended, incision CDI Neuro: alert, oriented, no gross motor/sensory deficit Intake/Output Intake/Output Summary (Last 24 hours) at 11/26/2024 0723 Last data filed at 11/26/2024 0500 Gross per 24 hour Intake 904 ml Output 423 ml Net 481 ml Labs Reviewed Recent Labs 11/25/24 1026 11/25/24 0407 11/25/24 0406 11/24/24 0544 WBC 8.65 -- 7.84 9.78 HB 12.2 -- 11.0* 12.6 HCT 36.1 -- 33.1* 37.2 PLT 212 -- 205 256 NA 141 141 -- 142 K 4.1 6.7* -- 3.9 CHLOR 106 108* -- 108* CO2 25 -- 24 CREAT 0.53* 0.47* -- 0.59 BUN 5* 4* -- 6* GLUC 96 76 -- 97 P -- 2.1* -- 3.0 MG -- 1.8 -- 2.2 CA 8.5 8.0* -- 8.3* Imaging Reviewed No new imaging. Normal [facility] Magnesium SerPl-mCncon 11-26 Magnesium [Mass/Vol] 2.0 mg/dL Normal 1.7-2.3 [facility] Comment on above: Order Comment: Speci men Type: BLOOD SPECIMEN Ordering Facility: [facility] Address: [address] [place] [address] Performed By: #### 2 4321-2, 2777-1, #### [facility] CLIA [id number] [address] [place] [address] [place] Phosphate SerPl-mCncon 11-26 Phosphate [Mass/Vol] 2.5 mg/dL Low 2.7-4.8 [facility] Comment on above: Order Comment: Speci men Type: BLOOD SPECIMEN Ordering Facility: [facility] Address: [address] [place] [address] Performed By: #### 2 4321-2, 2777, #### [facility] CLIA [id number] [address] [place] [address] [place] Basic metabolic 2000 panelon 11-25-2024 Anion gap [Moles/Vol] 8 mmol/L Normal 8-15 [facility] Comment on above: Order Comment: Speci men Type: BLOOD SPECIMEN Ordering Facility: [facility] Address: [address] [place] [address] Performed By: #### 2 4321-2, 27701-29, #### [facility] CLIA [id number] [address] [place] [address] [place] Calcium [Mass/Vol] 8.5 mg/dL Normal 8.5-10.2 [facility] Comment on above: Order Comment: Speci men Type: BLOOD SPECIMEN Ordering Facility: [facility] Address: [address] [place] [address] Performed By: #### 2 4321-2, 2777-, #### [facility] CLIA [id number] [address] [place] [address] [place] Chloride [Moles/Vol] 106 mmol/L Normal 98-107 [facility] Comment on above: Order Comment: Speci men Type: BLOOD SPECIMEN Ordering Facility: [facility] Address: [address] [place] [address] Performed By: #### 2 4321-2, 2777-1, #### [facility] CLIA [id number] [address] [place] [address] [place] CO2 [Moles/Vol] 27 mmol/L Normal 22-30 [facility] Comment on above: Order Comment: Speci men Type: BLOOD SPECIMEN Ordering Facility: [facility] Address: [address] [place] [address] Performed By: #### 2 4321-2, 2777-, #### [facility] CLIA [id number] [address] [place] [address] [place] Creatinine [Mass/Vol] 0.53 mg/dL Low 0.58-0.96 [facility] Comment on above: Order Comment: Speci men Type: BLOOD SPECIMEN Ordering Facility: [facility] Address: [address] [place] [address] Performed By: #### 2 4321-2, 2777, #### [facility] CLIA [id number] [address] [place] [address] [place] Creatinine and Glomerular filtration rate.predicted panel (S/P/Bld) 122 mL/min/1.73m??? Normal >=60 [facility] Comment on above: Order Comment: Speci men Type: BLOOD SPECIMEN Ordering Facility: [facility] Address: [address] [place] [address] Result Comment: Ayla mated Glomerular Filtration Rate (eGFR) is calculated using the 2020 CKD-EPI creatinine equation. This equation utilizes serum creatinine, sex, and age as parameters. The creatinine assay has traceable calibration to isotope dilution-mass spectrometry. Refer to KDIGO guidelines for clinical interpretation. In patients with unstable renal function, e.g. those with acute kidney injury, the eGFR may not accurately reflect actual GFR. Performed By: #### 2 4321-2, 2776-08, #### [facility] CLIA [id number] [address] [address] [place] Glucose [Mass/Vol] 96 mg/dL Normal 74-99 [facility] Comment on above: Order Comment: Christiano cardozo Type: BLOOD SPECIMEN Ordering Facility: [facility] Address: [address] [place] [address] Result Comment: The [place] [employer] (ADA) provides guidance for cutoff values for fasting glucose and random glucose. The ADA defines fasting as no caloric intake for at least 8 hours. Fasting plasma glucose results between 100 to 125 mg/dL indicate increased risk for diabetes (prediabetes). Fasting plasma glucose results greater than or equal to 126 mg/dL meet the criteria for diagnosis of diabetes. In the absence of unequivocal hyperglycemia, results should be confirmed by repeat testing. In a patient with classic symptoms of hyperglycemia or hyperglycemic crisis, random plasma glucose results greater than or equal to 200 mg/dL meet the criteria for diagnosis of diabetes. Reference: Standards of Medical Care in Diabetes 2016, [place] [employer]. Diabetes Care. 2016.39(Suppl 1). Performed By: #### 2 4321-2, 2776-08, #### [facility] CLIA [id number] [facility] [address] [address] [place] Potassium [Moles/Vol] 4.1 mmol/L Normal 3.7-5.1 [facility] Comment on above: Order Comment: Christiano cardozo Type: BLOOD SPECIMEN Ordering Facility: [facility] Address: [address] [place] [address] Performed By: #### 2 4321-2, 2776-08, #### [facility] CLIA [id number] [address] [address] [place] Sodium [Moles/Vol] 141 mmol/L Normal 136-144 [facility] Comment on above: Order Comment: Speci men Type: BLOOD SPECIMEN Ordering Facility: [facility] Address: [address] [place] [address] Performed By: #### 2 4321-2, 2776-08, #### [facility] CLIA [id number] [address] [place] [address] [place] Urea nitrogen [Mass/Vol] 5 mg/dL Low 7-21 [facility] Comment on above: Order Comment: Speci men Type: BLOOD SPECIMEN Ordering Facility: [facility] Address: [address] [place] [address] Performed By: #### 2 4321-2, 2776-08, #### [facility] CLIA [id number] [address] [place] [address] [place] Anion gap [Moles/Vol] 8 mmol/L Normal 8-15 [facility] Comment on above: Order Comment: Speci men Type: BLOOD SPECIMEN Ordering Facility: [facility] Address: [address] [place] [address] Performed By: #### 1 9123-9, 01980-9, 2776-08 #### [facility] CLIA [id number] [address] [place] [address] [place] Calcium [Mass/Vol] 8.0 mg/dL Low 8.5-10.2 [facility] Comment on above: Order Comment: Speci men Type: BLOOD SPECIMEN Ordering Facility: [facility] Address: [address] [place] [address] Performed By: #### 1 9123-9, 89558-0, 2776-08 #### [facility] CLIA [id number] [address] [place], [place] [address] [place] Chloride [Moles/Vol] 108 mmol/L High 98-107 [facility] Comment on above: Order Comment: Speci men Type: BLOOD SPECIMEN Ordering Facility: [facility] Address: [address] [place] [address] Performed By: #### 1 9123-9, 52970-0, 27701-29 #### [facility] CLIA [id number] [address] [place] [address] [place] CO2 [Moles/Vol] 25 mmol/L Normal 22-30 [facility] Comment on above: Order Comment: Speci men Type: BLOOD SPECIMEN Ordering Facility: [facility] Address: [address] [place] [address] Performed By: #### 1 9123-9, 74484-1, 27701-29 #### [facility] CLIA [id number] [address] [place] [address] [place] Creatinine [Mass/Vol] 0.47 mg/dL Low 0.58-0.96 [facility] Comment on above: Order Comment: Speci men Type: BLOOD SPECIMEN Ordering Facility: [facility] Address: [address] [place] [address] Performed By: #### 1 9123-9, 28354-0, 27701-29 #### [facility] CLIA [id number] [address] [place] [address] [place] Creatinine and Glomerular filtration rate.predicted panel (S/P/Bld) 125 mL/min/1.73m??? Normal >=60 [facility] Comment on above: Order Comment: Speci men Type: BLOOD SPECIMEN Ordering Facility: [facility] Address: [address] [place] [address] Result Comment: Ayla mated Glomerular Filtration Rate (eGFR) is calculated using the 2020 CKD-EPI creatinine equation. This equation utilizes serum creatinine, sex, and age as parameters. The creatinine assay has traceable calibration to isotope dilution-mass spectrometry. Refer to KDIGO guidelines for clinical interpretation. In patients with unstable renal function, e.g. those with acute kidney injury, the eGFR may not accurately reflect actual GFR. Performed By: #### 1 9123-9, 25047-6, 2776- #### [facility] CLIA [id number] [address] [place] [address] [place] Glucose [Mass/Vol] 76 mg/dL Normal 74-99 [facility] Comment on above: Order Comment: Speci men Type: BLOOD SPECIMEN Ordering Facility: [facility] Address: [address] [place] [address] Result Comment: The [place] Diabetes Association (ADA) provides guidance for cutoff values for fasting glucose and random glucose. The ADA defines fasting as no caloric intake for at least 8 hours. Fasting plasma glucose results between 100 to 125 mg/dL indicate increased risk for diabetes (prediabetes). Fasting plasma glucose results greater than or equal to 126 mg/dL meet the criteria for diagnosis of diabetes. In the absence of unequivocal hyperglycemia, results should be confirmed by repeat testing. In a patient with classic symptoms of hyperglycemia or hyperglycemic crisis, random plasma glucose results greater than or equal to 200 mg/dL meet the criteria for diagnosis of diabetes. Reference: Standards of Medical Care in Diabetes 2016, [place] [employer]. Diabetes Care. 2016.39(Suppl 1). Performed By: #### 1 9123-9, 46160-6, 2776-08 #### [facility] CLIA [id number] [address] [place] [address] [place] Potassium [Moles/Vol] 6.7 mmol/L Critically high 3.7-5.1 [facility] Comment on above: Order Comment: Deyvii men Type: BLOOD SPECIMEN Ordering Facility: [facility] Address: [address] [place] [address] Performed By: #### 1 9123-9, 03253-1, 2776-08 #### [facility] CLIA [id number] [address] [place] [address] [place] Sodium [Moles/Vol] 141 mmol/L Normal 136-144 [facility] Comment on above: Order Comment: Deyvii men Type: BLOOD SPECIMEN Ordering Facility: [facility] Address: [address] [place] [address] Performed By: #### 1 9123-9, 51350-0, 2776- #### [facility] CLIA [id number] [address] [place] [address] [place] Urea nitrogen [Mass/Vol] 4 mg/dL Low 7-21 [facility] Comment on above: Order Comment: Speci men Type: BLOOD SPECIMEN Ordering Facility: [facility] Address: [address] [place] [address] Performed By: #### 1 9123-9, 33846-6, 2776- #### [facility] CLIA [id number] [address] [place] [address] [place] CBC W Auto Differential pane l (Bld)on 11-25-2024 Basophils (Bld) [#/Vol] 10*3/uL Normal <0.11 [facility] Comment on above: Order Comment: Speci men Type: BLOOD SPECIMEN Ordering Facility: [facility] Address: [address] [place] [address] Performed By: #### 2 4321-2, 2776-08, #### [facility] CLIA [id number] [address] [place] [address] [place] Basophils/100 WBC (Bld) 0.3 % Normal [facility] Comment on above: Order Comment: Speci men Type: BLOOD SPECIMEN Ordering Facility: [facility] Address: [address] [place] [address] Performed By: #### 2 4321-2, 2776-08, #### [facility] CLIA [id number] [address] [place] [address] [place] Differential cell count method Nom (Bld) Auto Normal [facility] Comment on above: Order Comment: Speci men Type: BLOOD SPECIMEN Ordering Facility: [facility] Address: [address] [place] [address] Performed By: #### 2 4321-2, 27701-29, #### [facility] CLIA [id number] [address] [place] [address] [place] Eosinophils (Bld) [#/Vol] 0.11 10*3/uL Normal <0.46 [facility] Comment on above: Order Comment: Speci men Type: BLOOD SPECIMEN Ordering Facility: [facility] Address: [address] [place] [address] Performed By: #### 2 4321-2, 2776-08, #### [facility] CLIA [id number] [address] [place] [address] [place] Eosinophils/100 WBC (Bld) 1.4 % Normal [facility] Comment on above: Order Comment: Speci men Type: BLOOD SPECIMEN Ordering Facility: [facility] Address: [address] [place] [address] Performed By: #### 2 4321-2, 2776-08, #### [facility] CLIA [id number] [address] [place] [address] [place] Erythrocyte distribution width (RBC) [Ratio] 13.9 % Normal 11.5-15.0 [facility] Comment on above: Order Comment: Speci men Type: BLOOD SPECIMEN Ordering Facility: [facility] Address: [address] [place] [address] Performed By: #### 2 4321-2, 2776-08, #### [facility] CLIA [id number] [address] [place] [address] [place] Hematocrit (Bld) [Volume fraction] 33.1 % Low 36.0-46.0 [facility] Comment on above: Order Comment: Speci men Type: BLOOD SPECIMEN Ordering Facility: [facility] Address: [address] [place] [address] Performed By: #### 2 4321-2, 27701-29, #### [facility] CLIA [id number] [address] [place], [place] [address] [place] Hemoglobin (Bld) [Mass/Vol] 11.0 g/dL Low 11.5-15.5 [facility] Comment on above: Order Comment: Speci men Type: BLOOD SPECIMEN Ordering Facility: [facility] Address: [address] [place] [address] Performed By: #### 2 4321-2, 2776-08, #### [facility] CLIA [id number] [address] [place] [address] [place] Immature granulocytes (Bld) [#/Vol] 0.03 10*3/uL Normal <0.10 [facility] Comment on above: Order Comment: Speci men Type: BLOOD SPECIMEN Ordering Facility: [facility] Address: [address] [place] [address] Performed By: #### 2 4321-2, 2776-08, #### [facility] CLIA [id number] [address] [place] [address] [place] Immature granulocytes/100 WBC (Bld) 0.4 % Normal [facility] Comment on above: Order Comment: Speci men Type: BLOOD SPECIMEN Ordering Facility: [facility] Address: [address] [place] [address] Performed By: #### 2 4321-2, 2776-08, #### [facility] CLIA [id number] [address] [place], [place] [address] [place] Lymphocytes (Bld) [#/Vol] 1.13 10*3/uL Normal 1.00-4.00 [facility] Comment on above: Order Comment: Speci men Type: BLOOD SPECIMEN Ordering Facility: [facility] Address: [address] [place] [address] Performed By: #### 2 4321-2, 2776-08, #### [facility] CLIA [id number] [address] [place] [address] [place] Lymphocytes/100 WBC (Bld) 14.4 % Normal [facility] Comment on above: Order Comment: Speci men Type: BLOOD SPECIMEN Ordering Facility: [facility] Address: [address] [place] [address] Performed By: #### 2 4321-2, 27701-29, #### [facility] CLIA [id number] [address] [place] [address] [place] MCH (RBC) [Entitic mass] 29.5 pg Normal 26.0-34.0 [facility] Comment on above: Order Comment: Speci men Type: BLOOD SPECIMEN Ordering Facility: [facility] Address: [address] [place] [address] Performed By: #### 2 4321-2, 27701-29, #### [facility] CLIA [id number] [address] [place] [address] [place] MCHC (RBC) [Mass/Vol] 33.2 g/dL Normal 30.5-36.0 [facility] Comment on above: Order Comment: Speci men Type: BLOOD SPECIMEN Ordering Facility: [facility] Address: [address] [place] [address] Performed By: #### 2 4321-2, 2776-08, #### [facility] CLIA [id number] [address] [place], [place] [address] [place] MCV (RBC) [Entitic vol] 88.7 fL Normal 80.0-100.0 [facility] Comment on above: Order Comment: Speci men Type: BLOOD SPECIMEN Ordering Facility: [facility] Address: [address] [place] [address] Performed By: #### 2 4321-2, 27701-29, #### [facility] CLIA [id number] [address] [place] [address] [place] Monocytes (Bld) [#/Vol] 0.62 10*3/uL Normal <0.87 [facility] Comment on above: Order Comment: Speci men Type: BLOOD SPECIMEN Ordering Facility: [facility] Address: [address] [place] [address] Performed By: #### 2 4321-2, 2776-08, #### [facility] CLIA [id number] [address] [place] [address] [place] Monocytes/100 WBC (Bld) 7.9 % Normal [facility] Comment on above: Order Comment: Speci men Type: BLOOD SPECIMEN Ordering Facility: [facility] Address: [address] [place] [address] Performed By: #### 2 4321-2, 27701-29, #### [facility] CLIA [id number] [address] [place] [address] [place] Neutrophils (Bld) [#/Vol] 5.93 10*3/uL Normal 1.45-7.50 [facility] Comment on above: Order Comment: Speci men Type: BLOOD SPECIMEN Ordering Facility: [facility] Address: [address] [place] [address] Performed By: #### 2 4321-2, 2776-08, #### [facility] CLIA [id number] [address] [place], [place] [address] [place] Neutrophils/100 WBC (Bld) 75.6 % Normal [facility] Comment on above: Order Comment: Speci men Type: BLOOD SPECIMEN Ordering Facility: [facility] Address: [address] [place] [address] Performed By: #### 2 4321-2, 27701-29, #### [facility] CLIA [id number] [address] [place], [place] [address] [place] Nucleated RBC (Bld) [#/Vol] 10*3/uL Normal <0.01 [facility] Comment on above: Order Comment: Speci men Type: BLOOD SPECIMEN Ordering Facility: [facility] Address: [address] [place] [address] Performed By: #### 2 4321-2, 2776-08, #### [facility] CLIA [id number] [address] [place] [address] [place] Nucleated RBC/100 WBC (Bld) [Ratio] 0.0 /100 WBC Normal [facility] Comment on above: Order Comment: Speci men Type: BLOOD SPECIMEN Ordering Facility: [facility] Address: [address] [place] [address] Performed By: #### 2 4321-2, 2776-08, #### [facility] CLIA [id number] [address] [place] [address] [place] Platelet mean volume (Bld) [Entitic vol] 10.2 fL Normal 9.0-12.7 [facility] Comment on above: Order Comment: Speci men Type: BLOOD SPECIMEN Ordering Facility: [facility] Address: [address] [place] [address] Performed By: #### 2 4321-2, 2776-08, #### [facility] CLIA [id number] [address] [place] [address] [place] Platelets (Bld) [#/Vol] 205 10*3/uL Normal 150-400 [facility] Comment on above: Order Comment: Speci men Type: BLOOD SPECIMEN Ordering Facility: [facility] Address: [address] [place] [address] Performed By: #### 2 4321-2, 2776-08, #### [facility] CLIA [id number] [address] [place] [address] [place] RBC (Bld) [#/Vol] 3.73 10*6/uL Low 3.90-5.20 [facility] Comment on above: Order Comment: Speci men Type: BLOOD SPECIMEN Ordering Facility: [facility] Address: [address] [place] [address] Performed By: #### 2 4321-2, 277-, #### [facility] CLIA [id number] [address] [place] [address] [place] WBC (Bld) [#/Vol] 7.84 10*3/uL Normal 3.70-11.00 [facility] Comment on above: Order Comment: Speci men Type: BLOOD SPECIMEN Ordering Facility: [facility] Address: [address] [place] [address] Performed By: #### 2 4321-2, 27701-29, #### [facility] CLIA [id number] [address] [place] [address] [place] CBC panel Auto (Bld)on 11-25 Erythrocyte distribution width (RBC) [Ratio] 13.7 % Normal 11.5-15.0 [facility] Comment on above: Order Comment: Speci men Type: BLOOD SPECIMEN Ordering Facility: [facility] Address: [address] [place] [address] Performed By: #### 2 4321-2, 27701-29, #### [facility] CLIA [id number] [address] [place] [address] [place] Hematocrit (Bld) [Volume fraction] 36.1 % Normal 36.0-46.0 [facility] Comment on above: Order Comment: Speci men Type: BLOOD SPECIMEN Ordering Facility: [facility] Address: [address] [place] [address] Performed By: #### 2 4321-2, 2777, #### [facility] CLIA [id number] [address] [place] [address] [place] Hemoglobin (Bld) [Mass/Vol] 12.2 g/dL Normal 11.5-15.5 [facility] Comment on above: Order Comment: Speci men Type: BLOOD SPECIMEN Ordering Facility: [facility] Address: [address] [place] [address] Performed By: #### 2 4321-2, 27701-29, #### [facility] CLIA [id number] [address] [place] [address] [place] MCH (RBC) [Entitic mass] 29.3 pg Normal 26.0-34.0 [facility] Comment on above: Order Comment: Speci men Type: BLOOD SPECIMEN Ordering Facility: [facility] Address: [address] [place] [address] Performed By: #### 2 4321-2, 27701-29, #### [facility] CLIA [id number] [address] [place] [address] [place] MCHC (RBC) [Mass/Vol] 33.8 g/dL Normal 30.5-36.0 [facility] Comment on above: Order Comment: Speci men Type: BLOOD SPECIMEN Ordering Facility: [facility] Address: [address] [place] [address] Performed By: #### 2 4321-2, 27701-29, #### [facility] CLIA [id number] [address] [place], [place] [address] [place] MCV (RBC) [Entitic vol] 86.6 fL Normal 80.0-100.0 [facility] Comment on above: Order Comment: Speci men Type: BLOOD SPECIMEN Ordering Facility: [facility] Address: [address] [place] [address] Performed By: #### 2 4321-2, 27701-29, #### [facility] CLIA [id number] [address] [place] [address] [place] Nucleated RBC (Bld) [#/Vol] 10*3/uL Normal <0.01 [facility] Comment on above: Order Comment: Speci men Type: BLOOD SPECIMEN Ordering Facility: [facility] Address: [address] [place] [address] Performed By: #### 2 4321-2, 2777-1, #### [facility] CLIA [id number] [address] [place] [address] [place] Platelet mean volume (Bld) [Entitic vol] 9.6 fL Normal 9.0-12.7 [facility] Comment on above: Order Comment: Speci men Type: BLOOD SPECIMEN Ordering Facility: [facility] Address: [address] [place] [address] Performed By: #### 2 4321-2, 277-, #### [facility] CLIA [id number] [address] [place] [address] [place] Platelets (Bld) [#/Vol] 212 10*3/uL Normal 150-400 [facility] Comment on above: Order Comment: Speci men Type: BLOOD SPECIMEN Ordering Facility: [facility] Address: [address] [place] [address] Performed By: #### 2 4321-2, 277-1, #### [facility] CLIA [id number] [address] [place] [address] [place] RBC (Bld) [#/Vol] 4.17 10*6/uL Normal 3.90-5.20 [facility] Comment on above: Order Comment: Speci men Type: BLOOD SPECIMEN Ordering Facility: [facility] Address: [address] [place] [address] Performed By: #### 2 4321-2, 2777-1, #### [facility] CLIA [id number] [address] [place] [address] [place] WBC (Bld) [#/Vol] 8.65 10*3/uL Normal 3.70-11.00 [facility] Comment on above: Order Comment: Speci men Type: BLOOD SPECIMEN Ordering Facility: [facility] Address: [address] [place] [address] Performed By: #### 2 4321-2, 2777-1, 07709-5 #### [facility] CLIA [id number] [address] [place] [address] [place] CONSULTon 11-25-2024 CONSULT HNO ID: [id number] Author: YAN RANDALL MD Service: General Surgery Author Type: Resident Type: Consults Filed: 11/25/2024 07:39 Note Text: Bariatric Surgery Pager: [phone] SURGERY CONSULT PROGRESS NOTE Patient Name: Tiffani Allison Date: November 25, 2024 ASSESSMENT AND PLAN: Tiffani Allison is a 39 year old PMHx notable for GERD, recent smoker, hypothyroidism, prior sleeve gastrectomy and s/p laparoscopic PEHR and conversion to RYGB, with abdominal wall reconstruction on 11/23/24. Overall patient doing well in the immediate post op period. She is having notable pain, however improved. She tolerated clears well and will continue to encourage slow progression with protein shakes. Hgb with slight drift which might be dilutional vs equilibration in nature but will hold lovenox and PM hgb check prior to resuming. Recommendations: - Phase II diet - Encourage protein shake intake - wean O2 as able - Monitor for diet toleration - hold lovenox with PM hgb check and if stable okay to resume. - Will discuss lovenox initiation - ambulation encouraged - IS and SCDs - LAKSHMI ramirez Appreciate hernia surgery team care. Plan of care discussed with staff. Yan Randall MD General Surgery Resident Bariatric Surgery Pager: [phone] On nights (6 pm to 6 am) and on Weekends/Holidays, please page the on-call pager: [phone] 7:37 AM, 11/25/2024 --- INTERVAL: No acute events overnight. Pain poorly controlled. No nausea but + burping with water - flatus. - BMs. Jps SS OBJECTIVE: Physical Exam BP 121/59 Pulse 85 Temp (Src) 98.1 (Oral) Resp 18 SpO2 95% LMP 11/23/2024 O2 Therapy: Room Air, Liters (Numeric Only): 2.00 General: comfortable, no acute distress Cardiac: extremities warm and well-perfused Pulm: normal respiratory effort on 2L Abd: soft, appropriately tender, minimally distended, incision CDI Neuro: alert, oriented, no gross motor/sensory deficit Intake/Output Intake/Output Summary (Last 24 hours) at 11/25/2024 0737 Last data filed at 11/25/2024 0712 Gross per 24 hour Intake 2486.14 ml Output 2510 ml Net -23.86 ml Labs Reviewed Recent Labs 11/25/24 0406 11/24/24 0544 WBC 7.84 9.78 HB 11.0* 12.6 HCT 33.1* 37.2 PLT 205 256 NA -- 142 K -- 3.9 CHLOR -- 108* CO2 -- 24 CREAT -- 0.59 BUN -- 6* GLUC -- 97 P -- 3.0 MG -- 2.2 CA -- 8.3* Imaging Reviewed No new imaging. Normal [facility] CONSULT PROGon 11-25-2024 CONSULT PROG HNO ID: [id number] Author: MARY MATTHEWS MD Service: Pain Management Author Type: Resident Type: Consult Progress Note Filed: 11/25/2024 13:39 Note Text: Attestation signed by Mary Matthews MD at 11/25/2024 1:39 PM Attending Note I evaluated the patient and personally participated in the bermudez components. I agree with the resident's findings and plan as documented and have discussed the case and management of the patient's care with the resident. Increased oxycodone to 15-20 mg prn. APMS will sign off once ketamine falls off. Signature: Mary Matthews MD Date: 11/25/2024 Time: 1:39 PM APS POST-OPERATIVE PROGRESS NOTE SERVICE DATE: 11/25/2024 : 1985 SERVICE TIME: 739 SURGERY DATE: 11/23/2024 PRIMARY SERVICE: General Surgery Subjective CHIEF COMPLAINT: Post-operative pain HPI: Tiffani Allison is a 39 year old female who is POD # 2 S/P laparoscopic paraesophageal hernia repair, laparoscopic converted to open conversion of gastric sleeve to a Becki en Y gastric bypass, open right and left myofascial advancement flaps, abdominal wall reconstruction with mesh who reports postoperative and is described as: Location of Pain: Surgical site Pain Score at Rest: 4 Pain Score with Movement (Cough, Deep Breathe, Ambulation, etc): Unable to obtain Character: Aching Duration: Consistent Radiation: No Exacerbated By: movement Relieved: Yes - IV Pain medications, PO Pain medications, 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 CARDIOVASCULAR: Negative for chest pain, negative for leg swelling, negative for palpitations. RESPIRATORY: Denies SOB GI: Incisional pain ALLERGIES Allergen Reactions Penicillins Anaphylaxis, Cough, Hives, Itching, Rash, Shortness of Breath, Swelling, Unknown Other Reaction(s): throat swelling and hives Topiramate Intolerance Other Reaction(s): seizures Current Facility-Administered Medications Medication Dose Route Frequency amLODIPine 10 mg tab(s) (NORVASC) 10 mg ORAL DAILY metoprolol succinate ER 100 mg tab(s) (TOPROL XL) 100 mg ORAL DAILY levothyroxine 137 mcg tab(s) (SYNTHROID) 137 mcg ORAL DAILY (6 AM) ondansetron (PF) 4 mg injection (ZOFRAN) 4 mg INTRAVENOUS q 6 H promethazine 12.5 mg/10 mL 25 mg oral liquid (PHENERGAN) 25 mg ORAL q 6 H PRN acetaminophen 1,000 mg CUP (TYLENOL) 1,000 mg ORAL q 6 H HYDROmorphone 0.2 mg injection (DILAUDID) 0.2 mg INTRAVENOUS q 2 H PRN oxyCODONE 5-10 mg oral liquid (ROXICODONE) 5-10 mg ORAL q [address] 40 mg tab(s) (PROTONIX) 40 mg ORAL DAILY (6 AM) naloxone 0.1 mg injection (NARCAN) 0.1 mg INTRAVENOUS q 2 MIN PRN ketamine (PF) iv infusion 500 mg in NaCl (iso-osmotic) 100 mL (Ketalar) 0.3 mg/kg/hr (Adjusted) INTRAVENOUS CONTINUOUS fentaNYL PHOTO EQUIPMENT TECHNICIAN 20 mcg/mL in NaCl 0.9% 100 mL (SUBLIMAZE) INTRAVENOUS CONTINUOUS DULoxetine 30 mg cap(s) (CYMBALTA) 30 mg ORAL DAILY diphenhydrAMINE 12.5 mg injection (BENADRYL) 12.5 mg INTRAVENOUS q 4 H PRN enoxaparin 40 mg injection (LOVENOX) 40 mg SUBCUTANEOUS q 12 HR methocarbamol 500 mg tab(s) (ROBAXIN) 500 mg ORAL TID PRN potassium chloride 20 mEq in lactated ringers 1,000 mL INTRAVENOUS CONTINUOUS Objective PHYSICAL EXAM: Patient Vitals for the past 4 hrs: BP Temp Temp src Pulse Resp SpO2 11/24/24 1028 137/77 36.9 ?C (98.4 ?F) Oral 89 18 96 % 11/24/24 0738 -- -- -- -- 16 -- AFFECT: Alert, Awake, and Oriented GENERAL APPEARANCE: Appears uncomfortable NEURO: No gross deficits RESPIRATORY: Breathing appears normal GI: Bowel sounds deferred DATA: Diagnostic tests reviewed for today's visit: Most recent labs and imaging results. LAB RESULTS: APTT 24.4 11/06/2024 PT Sec 10.9 11/06/2024 INR 1.0 11/06/2024 Hemoglobin 12.6 11/24/2024 Hematocrit 37.2 11/24/2024 Platelet Count 256 11/24/2024 Medication and Non-Pharmacologic VTE Prophylaxis/Anticoagu lants Anticoagulant AND Antiplatelet Medications (From admission, onward) Start Dose Route Frequency Last Action Ordered Stop 11/24/24 1000 enoxaparin 40 mg injection (LOVENOX) (enoxaparin injection (LOVENOX)) 40 mg SUBCUTANEOUS EVERY 12 HOURS Given, 11/24 22411/24/24 0943 -- 11/23/241999 vte pharmacologic prophylaxis contraindicated ([place], [place]) 11/23/241999 pneumatic compression sleeve(s) ([place]) 11/23/241999 activity - mobilize patient ([place], [place]) Assessment/Plan Morbid Obesity Class 3 Tiffani Allison is a 39 year old female who is being seen as described in the HPI above. Current Pain Medications Ordered: -fentanyl PHOTO EQUIPMENT TECHNICIAN 20 mcg/ml at 0 -acetaminophen 1g q6h -hydromorphone 0.2mg q2h prn -oxycodone liquid 5-10mg q4h prn -ketamine gtt 0.3 mg/kg/hr x (more content not included)... Normal [facility] ECG COMPLETEon 11-25-2024 ECG COMPLETE Ventricular Rate : 7 1 BPM Atrial Rate : 71 BPM P-R Interval : 146 ms QRS Duration : 94 ms Q-T Interval : 402 ms QTC Calculation(Bazett) : 436 ms Calculated P [place] : 35 degrees Calculated R [place] : 29 degrees Calculated T [place] : 13 degrees NORMAL SINUS RHYTHM NORMAL ECG Confirmed by DAMIEN ORTEGA MD ([id number]) on 12/13/2024 7:31:45 AM NAME : TIFFANI ALLISON PID : [id number] : 1985 Gender : Female Race : ORD : [id number] Procedure Date : Nov 25 2024 11:40:55 Edit Date : Dec 13 2024 07:31:47 Diagnosis: NORMAL SINUS RHYTHM NORMAL ECG Confirmed by DAMIEN ORTEGA MD ([id number]) on 12/13/2024 7:31:45 AM Test Reason : Hyperkalemia Location : 54 : H51 [id number] Overread By : DAMIEN ORTEGA MD Edited By : DAMIEN ORTEGA MD Referred By : , Acquired by : ANGIE KAYE [facility] Magnesium SerPl-mCncon 11-25 Magnesium [Mass/Vol] 1.8 mg/dL Normal 1.7-2.3 [facility] Comment on above: Order Comment: Speci men Type: BLOOD SPECIMEN Ordering Facility: [facility] Address: [address] [place], [place] [address] Performed By: #### 1 9123-9, 99222-0, 2776- #### [facility] CLIA [id number] [address] [place] [address] [place] Phosphate SerPl-mCncon 11-25 Phosphate [Mass/Vol] 2.1 mg/dL Low 2.7-4.8 [facility] Comment on above: Order Comment: Speci men Type: BLOOD SPECIMEN Ordering Facility: [facility] Address: [address] [place] [address] Performed By: #### 1 9123-9, 38820-2, 2776-08 #### [facility] CLIA [id number] [address] [place] [address] [place] Basic metabolic 2000 panelon 11-24-2024 Anion gap [Moles/Vol] 10 mmol/L Normal 8-15 [facility] Comment on above: Order Comment: Speci men Type: BLOOD SPECIMEN Ordering Facility: [facility] Address: [address] [place] [address] Performed By: #### 2 4321-2, 2776-08, #### [facility] CLIA [id number] [address] [place] [address] [place] Calcium [Mass/Vol] 8.3 mg/dL Low 8.5-10.2 [facility] Comment on above: Order Comment: Speci men Type: BLOOD SPECIMEN Ordering Facility: [facility] Address: [address] [place], [place] [address] Performed By: #### 2 4321-2, 27701-29, #### [facility] CLIA [id number] [address] [place], [place] [address] [place] Chloride [Moles/Vol] 108 mmol/L High 98-107 [facility] Comment on above: Order Comment: Speci men Type: BLOOD SPECIMEN Ordering Facility: [facility] Address: [address] [place], [place] [address] Performed By: #### 2 4321-2, 2776-08, #### [facility] CLIA [id number] [address] [place] [address] [place] CO2 [Moles/Vol] 24 mmol/L Normal 22-30 [facility] Comment on above: Order Comment: Speci men Type: BLOOD SPECIMEN Ordering Facility: [facility] Address: [address] [place] [address] Performed By: #### 2 4321-2, 27701-29, #### [facility] CLIA [id number] [address] [place] [address] [place] Creatinine [Mass/Vol] 0.59 mg/dL Normal 0.58-0.96 [facility] Comment on above: Order Comment: Speci men Type: BLOOD SPECIMEN Ordering Facility: [facility] Address: [address] [place] [address] Performed By: #### 2 4321-2, 2776-08, #### [facility] CLIA [id number] [address] [place] [address] [place] Creatinine and Glomerular filtration rate.predicted panel (S/P/Bld) 118 mL/min/1.73m??? Normal >=60 [facility] Comment on above: Order Comment: Deyvii men Type: BLOOD SPECIMEN Ordering Facility: [facility] Address: [address] [place] [address] Result Comment: Ayla mated Glomerular Filtration Rate (eGFR) is calculated using the 2020 CKD-EPI creatinine equation. This equation utilizes serum creatinine, sex, and age as parameters. The creatinine assay has traceable calibration to isotope dilution-mass spectrometry. Refer to KDIGO guidelines for clinical interpretation. In patients with unstable renal function, e.g. those with acute kidney injury, the eGFR may not accurately reflect actual GFR. Performed By: #### 2 4321-2, 2776-08, #### [facility] CLIA [id number] [address] [place] [address] [place] Glucose [Mass/Vol] 97 mg/dL Normal 74-99 [facility] Comment on above: Order Comment: Christiano cardozo Type: BLOOD SPECIMEN Ordering Facility: [facility] Address: [address] [place] [address] Result Comment: The [place] [employer] (ADA) provides guidance for cutoff values for fasting glucose and random glucose. The ADA defines fasting as no caloric intake for at least 8 hours. Fasting plasma glucose results between 100 to 125 mg/dL indicate increased risk for diabetes (prediabetes). Fasting plasma glucose results greater than or equal to 126 mg/dL meet the criteria for diagnosis of diabetes. In the absence of unequivocal hyperglycemia, results should be confirmed by repeat testing. In a patient with classic symptoms of hyperglycemia or hyperglycemic crisis, random plasma glucose results greater than or equal to 200 mg/dL meet the criteria for diagnosis of diabetes. Reference: Standards of Medical Care in Diabetes 2016, [place] [employer]. Diabetes Care. 2016.39(Suppl 1). Performed By: #### 2 4321-2, 2776-08, #### [facility] CLIA [id number] [address] [place] [address] [place] Potassium [Moles/Vol] 3.9 mmol/L Normal 3.7-5.1 [facility] Comment on above: Order Comment: Christiano cardozo Type: BLOOD SPECIMEN Ordering Facility: [facility] Address: [address] [place] [address] Performed By: #### 2 4321-2, 27701-29, #### [facility] CLIA [id number] [address] [place] [address] [place] Sodium [Moles/Vol] 142 mmol/L Normal 136-144 [facility] Comment on above: Order Comment: Christiano cardozo Type: BLOOD SPECIMEN Ordering Facility: [facility] Address: [address] [place] [address] Performed By: #### 2 4321-2, 2776-08, #### [facility] CLIA [id number] [address] [place] [address] [place] Urea nitrogen [Mass/Vol] 6 mg/dL Low 7-21 [facility] Comment on above: Order Comment: Speci men Type: BLOOD SPECIMEN Ordering Facility: [facility] Address: [address] [place] [address] Performed By: #### 2 4321-2, 2776-08, #### [facility] CLIA [id number] [address] [place] [address] [place] CBC W Auto Differential pane l (Bld)on 11-24-2024 Basophils (Bld) [#/Vol] 10*3/uL Normal <0.11 [facility] Comment on above: Order Comment: Speci men Type: BLOOD SPECIMEN Ordering Facility: [facility] Address: [address] [place] [address] Performed By: #### 2 4321-2, 2776-08, #### [facility] CLIA [id number] [address] [place] [address] [place] Basophils/100 WBC (Bld) 0.2 % Normal [facility] Comment on above: Order Comment: Speci men Type: BLOOD SPECIMEN Ordering Facility: [facility] Address: [address] [place] [address] Performed By: #### 2 4321-2, 2776-08, #### [facility] CLIA [id number] [address] [place] [address] [place] Differential cell count method Nom (Bld) Auto Normal [facility] Comment on above: Order Comment: Speci men Type: BLOOD SPECIMEN Ordering Facility: [facility] Address: [address] [place] [address] Performed By: #### 2 4321-2, 2776-08, #### [facility] CLIA [id number] [address] [place] [address] [place] Eosinophils (Bld) [#/Vol] 10*3/uL Normal <0.46 [facility] Comment on above: Order Comment: Speci men Type: BLOOD SPECIMEN Ordering Facility: [facility] Address: [address] [place] [address] Performed By: #### 2 4321-2, 2776-08, #### [facility] CLIA [id number] [address] [place] [address] [place] Eosinophils/100 WBC (Bld) 0.2 % Normal [facility] Comment on above: Order Comment: Speci men Type: BLOOD SPECIMEN Ordering Facility: [facility] Address: [address] [place] [address] Performed By: #### 2 4321-2, 2776-08, #### [facility] CLIA [id number] [address] [place] [address] [place] Erythrocyte distribution width (RBC) [Ratio] 13.6 % Normal 11.5-15.0 [facility] Comment on above: Order Comment: Speci men Type: BLOOD SPECIMEN Ordering Facility: [facility] Address: [address] [place] [address] Performed By: #### 2 4321-2, 2776-08, #### [facility] CLIA [id number] [address] [place], [place] [address] [place] Hematocrit (Bld) [Volume fraction] 37.2 % Normal 36.0-46.0 [facility] Comment on above: Order Comment: Speci men Type: BLOOD SPECIMEN Ordering Facility: [facility] Address: [address] [place] [address] Performed By: #### 2 4321-2, 27701-29, #### [facility] CLIA [id number] [address] [place] [address] [place] Hemoglobin (Bld) [Mass/Vol] 12.6 g/dL Normal 11.5-15.5 [facility] Comment on above: Order Comment: Speci men Type: BLOOD SPECIMEN Ordering Facility: [facility] Address: [address] [place] [address] Performed By: #### 2 4321-2, 27701-29, #### [facility] CLIA [id number] [address] [place] [address] [place] Immature granulocytes (Bld) [#/Vol] 0.04 10*3/uL Normal <0.10 [facility] Comment on above: Order Comment: Speci men Type: BLOOD SPECIMEN Ordering Facility: [facility] Address: [address] [place] [address] Performed By: #### 2 4321-2, 27701-29, #### [facility] CLIA [id number] [address] [place] [address] [place] Immature granulocytes/100 WBC (Bld) 0.4 % Normal [facility] Comment on above: Order Comment: Speci men Type: BLOOD SPECIMEN Ordering Facility: [facility] Address: [address] [place] [address] Performed By: #### 2 4321-2, 27701-29, #### [facility] CLIA [id number] [address] [place] [address] [place] Lymphocytes (Bld) [#/Vol] 0.98 10*3/uL Low 1.00-4.00 [facility] Comment on above: Order Comment: Speci men Type: BLOOD SPECIMEN Ordering Facility: [facility] Address: [address] [place] [address] Performed By: #### 2 4321-2, 27701-29, #### [facility] CLIA [id number] [address] [place] [address] [place] Lymphocytes/100 WBC (Bld) 10.0 % Normal [facility] Comment on above: Order Comment: Speci men Type: BLOOD SPECIMEN Ordering Facility: [facility] Address: [address] [place] [address] Performed By: #### 2 4321-2, 27701-29, #### [facility] CLIA [id number] [address] [place] [address] [place] MCH (RBC) [Entitic mass] 29.1 pg Normal 26.0-34.0 [facility] Comment on above: Order Comment: Speci men Type: BLOOD SPECIMEN Ordering Facility: [facility] Address: [address] [place] [address] Performed By: #### 2 4321-2, 27701-29, #### [facility] CLIA [id number] [address] [place] [address] [place] MCHC (RBC) [Mass/Vol] 33.9 g/dL Normal 30.5-36.0 [facility] Comment on above: Order Comment: Speci men Type: BLOOD SPECIMEN Ordering Facility: [facility] Address: [address] [place] [address] Performed By: #### 2 4321-2, 27701-29, #### [facility] CLIA [id number] [address] [place] [address] [place] MCV (RBC) [Entitic vol] 85.9 fL Normal 80.0-100.0 [facility] Comment on above: Order Comment: Speci men Type: BLOOD SPECIMEN Ordering Facility: [facility] Address: [address] [place] [address] Performed By: #### 2 4321-2, 27701-29, #### [facility] CLIA [id number] [address] [place], [place] [id number] [place] Monocytes (Bld) [#/Vol] 0.86 10*3/uL Normal <0.87 [facility] Comment on above: Order Comment: Speci men Type: BLOOD SPECIMEN Ordering Facility: [facility] Address: [address] [place] [address] Performed By: #### 2 4321-2, 27701-29, #### [facility] CLIA [id number] [address] [place] [address] [place] Monocytes/100 WBC (Bld) 8.8 % Normal [facility] Comment on above: Order Comment: Speci men Type: BLOOD SPECIMEN Ordering Facility: [facility] Address: [address] [place] [address] Performed By: #### 2 4321-2, 27701-29, #### [facility] CLIA [id number] [address] [place] [address] [place] Neutrophils (Bld) [#/Vol] 7.86 10*3/uL High 1.45-7.50 [facility] Comment on above: Order Comment: Speci men Type: BLOOD SPECIMEN Ordering Facility: [facility] Address: [address] [place] [address] Performed By: #### 2 4321-2, 27701-29, #### [facility] CLIA [id number] [address] [place] [address] [place] Neutrophils/100 WBC (Bld) 80.4 % Normal [facility] Comment on above: Order Comment: Speci men Type: BLOOD SPECIMEN Ordering Facility: [facility] Address: [address] [place] [address] Performed By: #### 2 4321-2, 27701-29, #### [facility] CLIA [id number] [address] [place] [address] [place] Nucleated RBC (Bld) [#/Vol] 10*3/uL Normal <0.01 [facility] Comment on above: Order Comment: Speci men Type: BLOOD SPECIMEN Ordering Facility: [facility] Address: [address] [place] [address] Performed By: #### 2 4321-2, 2776-08, #### [facility] CLIA [id number] [address] [place] [address] [place] Nucleated RBC/100 WBC (Bld) [Ratio] 0.0 /100 WBC Normal [facility] Comment on above: Order Comment: Speci men Type: BLOOD SPECIMEN Ordering Facility: [facility] Address: [address] [place] [address] Performed By: #### 2 4321-2, 2776-08, #### [facility] CLIA [id number] [address] [place] [address] [place] Platelet mean volume (Bld) [Entitic vol] 9.8 fL Normal 9.0-12.7 [facility] Comment on above: Order Comment: Speci men Type: BLOOD SPECIMEN Ordering Facility: [facility] Address: [address] [place] [address] Performed By: #### 2 4321-2, 2776-08, #### [facility] CLIA [id number] [address] [place] [address] [place] Platelets (Bld) [#/Vol] 256 10*3/uL Normal 150-400 [facility] Comment on above: Order Comment: Speci men Type: BLOOD SPECIMEN Ordering Facility: [facility] Address: [address] [place] [address] Performed By: #### 2 4321-2, 2776-08, #### [facility] CLIA [id number] [address] [place] [address] [place] RBC (Bld) [#/Vol] 4.33 10*6/uL Normal 3.90-5.20 [facility] Comment on above: Order Comment: Speci men Type: BLOOD SPECIMEN Ordering Facility: [facility] Address: [address] [place] [address] Performed By: #### 2 4321-2, 277-1, #### [facility] CLIA [id number] [address] [place] [address] OF [place] WBC (Bld) [#/Vol] 9.78 10*3/uL Normal 3.70-11.00 [facility] Comment on above: Order Comment: Speci men Type: BLOOD SPECIMEN Ordering Facility: [facility] Address: [address] [place] [address] Performed By: #### 2 4321-2, 277-, #### [facility] CLIA [id number] [address] [place] [address] OF [facility] CONSULTon 11-24-2024 CONSULT HNO ID: [id number] Author: YAN RANDALL MD Service: General Surgery Author Type: Resident Type: Consults Filed: 11/24/2024 08:34 Note Text: Bariatric Surgery Pager: [phone] SURGERY CONSULT PROGRESS NOTE Patient Name: Tiffnai Allison Date: November 24, 2024 ASSESSMENT AND PLAN: Tiffani Allison is a 39 year old PMHx notable for GERD, recent smoker, hypothyroidism, prior sleeve gastrectomy and s/p laparoscopic PEHR and conversion to RYGB, with abdominal wall reconstruction on 11/23/24. Overall patient doing well in the immediate post op period. She is having notable pain, with minimal relief on current pain regiment. Will discuss with hernia team regarding BID lovenox initiation, ramirez DC, IS and ambulation encouraged. Will discuss Phase II diet and will monitor closely for nausea as may be sign of ileus vs BP limb concerns. Recommendations: - Phase II diet - Monitor for diet toleration - Will discuss lovenox initiation - ambulation encouraged - IS and SCDs - DC ramirez Plan of care discussed with staff. Yan Randall MD General Surgery Resident Bariatric Surgery Pager: [phone] On nights (6 pm to 6 am) and on Weekends/Holidays, please page the on-call pager: [phone] 6:20 AM, 11/24/2024 --- INTERVAL: No acute events overnight. Pain poorly controlled. No nausea or vomiting. - flatus. - BMs. Jps SS No burping hiccuping with sips of water OBJECTIVE: Physical Exam BP 120/64 Pulse 69 Temp (Src) 98.4 (Oral) Resp 18 SpO2 94% LMP 11/23/2024 O2 Therapy: Nasal Cannula, Liters (Numeric Only): 3.00 General: comfortable, no acute distress Cardiac: extremities warm and well-perfused Pulm: normal respiratory effort on Abd: soft, appropriately tender, minimally distended, incision CDI Neuro: alert, oriented, no gross motor/sensory deficit Intake/Output Intake/Output Summary (Last 24 hours) at 11/24/2024 0620 Last data filed at 11/24/2024 0400 Gross per 24 hour Intake 6148.37 ml Output 5315 ml Net 833.37 ml Labs Reviewed Imaging Reviewed No new imaging. Normal [facility] CONSULT PROGon 11-24-2024 CONSULT PROG HNO ID: [id number] Author: MARY MATTHEWS MD Service: Anesthesiology Author Type: Resident Type: Consult Progress Note Filed: 11/25/2024 13:37 Note Text: Attestation signed by Mary Matthews MD at 11/25/2024 1:37 PM Attending Note I evaluated the patient and personally participated in the bermudez components. I agree with the resident's findings and plan with the following revisions and/or additions: With ketamine coming off today, will increase oxycodone 5-10 mg to 10-15 mg Signature: Mary Matthews MD Date: 11/25/2024 Time: 1:36 PM APS POST-OPERATIVE PROGRESS NOTE SERVICE DATE: 11/24/2024 : 1985 SERVICE TIME: 10:28 AM SURGERY DATE: 11/23/2024 PRIMARY SERVICE: General Surgery Subjective CHIEF COMPLAINT: Post-operative pain HPI: Tiffani Allison is a 39 year old female who is POD # 1 S/P laparoscopic paraesophageal hernia repair, laparoscopic converted to open conversion of gastric sleeve to a Becki en Y gastric bypass, open right and left myofascial advancement flaps, abdominal wall reconstruction with mesh who reports postoperative and is described as: Location of Pain: Surgical site Pain Score at Rest: 6 Pain Score with Movement (Cough, Deep Breathe, Ambulation, etc): Unable to obtain Character: Aching Duration: Consistent Radiation: No Exacerbated By: movement Relieved: Yes - IV Pain medications, PO Pain medications, and PHOTO EQUIPMENT TECHNICIAN bolus Patient Satisfied with Pain Control: No Overnight Pain Interventions: Patient started on ketamine infusion at 0.3mg/kg/hr ROS OFFAL TRIMMER: Negative for headaches, negative for seizures, negative for dizziness, and negative for gait imbalance. CARDIOVASCULAR: Negative for chest pain, negative for leg swelling, negative for palpitations. RESPIRATORY: Denies SOB GI: Incisional pain ALLERGIES Allergen Reactions Penicillins Anaphylaxis, Cough, Hives, Itching, Rash, Shortness of Breath, Swelling, Unknown Other Reaction(s): throat swelling and hives Topiramate Intolerance Other Reaction(s): seizures Current Facility-Administered Medications Medication Dose Route Frequency amLODIPine 10 mg tab(s) (NORVASC) 10 mg ORAL DAILY metoprolol succinate ER 100 mg tab(s) (TOPROL XL) 100 mg ORAL DAILY levothyroxine 137 mcg tab(s) (SYNTHROID) 137 mcg ORAL DAILY (6 AM) potassium chloride 20 mEq in lactated ringers 1,000 mL INTRAVENOUS CONTINUOUS ondansetron (PF) 4 mg injection (ZOFRAN) 4 mg INTRAVENOUS q 6 H promethazine 12.5 mg/10 mL 25 mg oral liquid (PHENERGAN) 25 mg ORAL q 6 H PRN acetaminophen 1,000 mg CUP (TYLENOL) 1,000 mg ORAL q 6 H HYDROmorphone 0.2 mg injection (DILAUDID) 0.2 mg INTRAVENOUS q 2 H PRN oxyCODONE 5-10 mg oral liquid (ROXICODONE) 5-10 mg ORAL q [address] 40 mg tab(s) (PROTONIX) 40 mg ORAL DAILY (6 AM) NaCl 0.9% iv infusion 5-30 mL/hr INTRAVENOUS CONTINUOUS naloxone 0.1 mg injection (NARCAN) 0.1 mg INTRAVENOUS q 2 MIN PRN ketamine (PF) iv infusion 500 mg in NaCl (iso-osmotic) 100 mL (Ketalar) 0.3 mg/kg/hr (Adjusted) INTRAVENOUS CONTINUOUS fentaNYL PHOTO EQUIPMENT TECHNICIAN 20 mcg/mL in NaCl 0.9% 100 mL (SUBLIMAZE) INTRAVENOUS CONTINUOUS DULoxetine 30 mg cap(s) (CYMBALTA) 30 mg ORAL DAILY diphenhydrAMINE 12.5 mg injection (BENADRYL) 12.5 mg INTRAVENOUS q 4 H PRN enoxaparin 40 mg injection (LOVENOX) 40 mg SUBCUTANEOUS q 12 HR methocarbamol 500 mg tab(s) (ROBAXIN) 500 mg ORAL TID PRN Objective PHYSICAL EXAM: Patient Vitals for the past 4 hrs: BP Temp Temp src Pulse Resp SpO2 11/24/24 1028 137/77 36.9 ?C (98.4 ?F) Oral 89 18 96 % 11/24/24 0738 -- -- -- -- 16 -- AFFECT: Alert, Awake, and Oriented GENERAL APPEARANCE: Appears uncomfortable NEURO: No gross deficits RESPIRATORY: Breathing appears normal GI: Bowel sounds deferred DATA: Diagnostic tests reviewed for today's visit: Most recent labs and imaging results. LAB RESULTS: APTT 24.4 11/06/2024 PT Sec 10.9 11/06/2024 INR 1.0 11/06/2024 Hemoglobin 12.6 11/24/2024 Hematocrit 37.2 11/24/2024 Platelet Count 256 11/24/2024 Medication and Non-Pharmacologic VTE Prophylaxis/Anticoagu lants Anticoagulant AND Antiplatelet Medications (From admission, onward) Start Dose Route Frequency Last Action Ordered Stop 11/24/24 1000 enoxaparin 40 mg injection (LOVENOX) (enoxaparin injection (LOVENOX)) 40 mg SUBCUTANEOUS EVERY 12 HOURS Given, 11/24 1030 11/24/24 0943 -- 11/23/241999 vte pharmacologic prophylaxis contraindicated ([place], [place]) 11/23/241999 pneumatic compression sleeve(s) ([place]) 11/23/241999 activity - mobilize patient ([place], [place]) Assessment/Plan Morbid Obesity Class 3 Tiffani Allison is a 39 year old female who is being seen as described in the HPI above. Patient having increased pain this AM due to PHOTO EQUIPMENT TECHNICIAN occlusion (now fixed). Has not been using oral meds yet. Current Pain Medications Ordered: (more content not included)... Normal [facility] Magnesium SerPl-mCncon 11-24 Magnesium [Mass/Vol] 2.2 mg/dL Normal 1.7-2.3 [facility] Comment on above: Order Comment: Speci men Type: BLOOD SPECIMEN Ordering Facility: [facility] Address: [address] [place] [address] Performed By: #### 2 4321-2, 2777-1, 29705-5 #### [facility] CLIA [id number] [address] [place] [address] [place] PT EDon 11-24-2024 PT ED HNO ID: [id number] Author: ANTHONY SAEZ DTR Service: Nutrition Therapy Author Type: Lead Sharepoint Developer Type: Patient Education Filed: 11/24/2024 16:13 Note Text: NUTRITION THERAPY PATIENT EDUCATION SERVICE DATE: 11/24/2024 SERVICE TIME: 999 TOPIC: Diet: Post-Bariatric Surgery LEARNING ASSESSMENT Individuals Assessed: Patient Preferred Learning Method: No Preference Barriers to Learning: None Evident LEARNING RESPONSE Instruction Provided to: Patient Patient / Family Response: Verbalizes Understanding Method of Instruction: Written instruction/Handouts Verbal instruction Material(s) Provided to Patient: Education Materials Provided Nutrition Education [facility]: Post-Bariatric Surgery Nutrition MNT Billing: $ Routine Care : 2 units SIGNATURE: Anthony Saez DTR PATIENT NAME: Tiffani Allison DATE: November 24, 2024 TIME: 4:12 PM PAGER: Normal [facility] Phosphate SerPl-mCncon 11-24 Phosphate [Mass/Vol] 3.0 mg/dL Normal 2.7-4.8 [facility] Comment on above: Order Comment: Speci men Type: BLOOD SPECIMEN Ordering Facility: [facility] Address: [address] [place] [address] Performed By: #### 2 4321-2, 2777-1, 31556-2 #### [facility] CLIA [id number] [address] [place] [address] [place] [address] [place] ANES POSTPROC EVALon 025 ANES POSTPROC EVAL HNO ID: [id number] Author: LESA STARKEY MD Service: ? Author Type: Anesthesiologist Type: Anesthesia Postprocedure Evaluation Filed: 11/23/2024 17:36 Note Text: POST ANESTHESIA EVALUATION NOTE : 1985 Procedure Summary Date: 11/23/24 Room / Location: [address] Anesthesia Start: 724 Anesthesia Stop: 1731 Procedures: HERNIORRHAPHY INCISIONAL ABDOMINAL RECURRENT REDUCIBLE GREATER THAN 10cm (Abdomen) LAPAROSCOPIC RPR PARAESOPHAGEAL HERNIA W/O FUNDOPLASTY W/ MESH (Abdomen) LAPAROSCOPIC GASTRIC RESTRICTIVE SURG W/ BYPASS AND BECKI-EN-Y 150CM OR LESS/ SLEEVE TO BYPASS (Abdomen) Diagnosis: Preoperative examination Hiatal hernia Morbid obesity (HCC) (Preoperative examination [Z01.818]) (Hiatal hernia [K44.9]) (Morbid obesity (HCC) [E66.01]) Surgeons: Rocio Jeff MD; Raine Grissom MD Responsible Provider: Lesa Starkey MD Anesthesia Type: general ASA Status: 2 Anesthesia Type: general Airway Type: ETT BP 141/74 Pulse 86 Temp 36 ?C (96.8 ?F) (Temporal Artery) Resp 18 LMP 11/23/2024 (Exact Date) SpO2 98% Post Anesthesia Patient Status Patient Evaluation: PACU. PACU/ICU Patient Condition: stable. Neurological Status: aware and responsive. Pulmonary Status: breathing comfortably on supplemental oxygen Airway Control: returned to baseline unsupported. Cardiovascular Status: stable. Pain Management: clinically adequate - multimodal analgesia pain management approach Postoperative Hydration: acceptable. Intraoperative Events: no significant anesthesia events Post Operative Nausea/Vomiting Status: no significant post operative nausea or vomiting Recommendation: continue current plan of care. Anesthesia Observations No Documentation SIGNATURE: Lesa Starkey MD PATIENT NAME: Tiffani Allison DATE: November 23, 2024 TIME: 5:36 PM CSN: [id number] Normal [facility] ANES PRE-OPon 11-23-2024 ANES PRE-OP HNO ID: [id number] Author: ANGELICA ROQUE MD Service: ? Author Type: Physician Type: Anesthesia Preprocedure Evaluation Filed: 11/23/2024 07:27 Note Text: ANESTHESIOLOGY DAY OF SURGERY NOTE : 1985 Procedure Information Date/Time: 11/23/24729 Procedures: HERNIORRHAPHY INCISIONAL ABDOMINAL RECURRENT REDUCIBLE GREATER THAN 10cm (Abdomen) LAPAROSCOPIC RPR PARAESOPHAGEAL HERNIA W/O FUNDOPLASTY W/ MESH (Abdomen) LAPAROSCOPIC GASTRIC RESTRICTIVE SURG W/ BYPASS AND BEKCI-EN-Y 150CM OR LESS/ SLEEVE TO BYPASS (Abdomen) Location: [facility] Surgeons: Rocio Jeff MD; Raine Grissom MD Estimated body mass index is 45.52 kg/m? as calculated from the following: Height as of 11/06/24: 177.8 cm (5' 10 ). Weight as of 11/06/24: 143.9 kg (317 lb 3.9 oz). Most recent hematocrit and potassium results: Hematocrit 43.4 11/06/2024 Potassium 4.0 11/06/2024 Relevant Problems CARDIO (+) Hypertension (+) Inappropriate sinus tachycardia (HCC) ENDO (+) Hypothyroidism GI (+) GERD (gastroesophageal reflux disease) Other (+) Psoriatic arthritis (HCC) I - PHYSICAL EVALUATION AIRWAY Patient intubated: No. Tracheostomy tube not present Mallampati: II. TM distance: >3 FB. Neck ROM: full ROM without neurological symptoms. Mouth opening: adequate. Short neck: no. Thick neck: no DENTAL Dental findings: teeth intact. II - ANESTHESIA PLAN ASA Score: 2 Anesthetic Plan: general Airway type: ETT The patient is not a current smoker. NPO Status: adequate Beta Harsh Monitoring Plan Monitoring plan: standard ASA. Post Procedure Analgesic Plan Postoperative analgesic plan: multimodal analgesia. Informed Consent Anesthetic risks, benefits, alternatives, personnel and consent discussed: yes. Patient / Responsible Republican agrees to proceed: yes Patient / Surrogate agrees to blood products: Yes DNR status not reviewed with patient and/or family prior to surgery. Significant changes in the patient condition since the History and Physical, not otherwise documented in primary service progress note: no. Potential Anesthesia issues that may suggest increased risk of complications or contraindication to planned procedure: none. Vitals Value Taken Time BP 141/74 11/23/24629 Pulse 86 11/23/24629 Resp 18 11/23/24629 Temp 36 ?C (96.8 ?F) 11/23/24629 SpO2 98 % 11/23/24629 Facility-Administered Medications as of 11/23/2024 Medication Dose Route Frequency - lidocaine (PF) 10 mg/mL (1 %) 1-2 mg injection (XYLOCAINE) 0.1-0.2 mL INTRADERMAL PRN Or - lidocaine 1% 0.25 mL subcutaneous j-tip syringe (XYLOCAINE) 0.25 mL SUBCUTANEOUS PRN - NaCl 0.9% iv flush bag 20 mL INTRAVENOUS PRN - heparin 5,000 Units injection 5,000 Units SUBCUTANEOUS ONCE - clindamycin iv piggyback 900 mg in D5W 50 mL (CLEOCIN) 900 mg INTRAVENOUS Pre-Op Once Outpatient Medications as of 11/23/2024 Medication Sig - acetaminophen 325 mg cap Take 650 mg by mouth every 6 hours as needed. - amLODIPine (NORVASC) 10 mg tablet Take 10 mg by mouth. - levothyroxine (SYNTHROID) 137 mcg tablet TAKE 1 TABLET BY MOUTH IN THE MORNING BEFORE MEALS - metoprolol succinate ER (TOPROL XL) 100 mg Take 100 mg by mouth. - omeprazole (PRILOSEC) 40 mg capsule Take 40 mg by mouth. - vit B-comp w-Fe,Ca,FA<1mg (IRON-VITAMINS ORAL) - meloxicam (MOBIC) 15 mg tablet Take 15 mg by mouth once daily. - metFORMIN (GLUCOPHAGE) 500 mg tablet Take 1 tablet by mouth every 12 hours. - fluocinonide (LIDEX) 0.05 % external solution APPLY TO THE AFFECTED AREA(S) topically DAILY - ibuprofen (MOTRIN) 800 mg tablet - melatonin 1 mg chew Take by mouth. - ondansetron orally disintegrating (ZOFRAN ODT) 4 mg disintegrating tablet 1 (one) time each day at the same time I have interviewed and examined the patient. I have reviewed the medical record and/or the pre-anesthesia evaluation, pertinent labs, and test results. This contains updated information obtained within 48 hours of Surgery/Procedure. SIGNATURE: Angelica Roque MD PATIENT NAME: Tiffani Allison DATE: November 23, 2024 TIME: 7:27 AM CSN: [id number] Normal [facility] BRIEF OP NOTon 11-23-2024 BRIEF OP NOT HNO ID: [id number] Author: CRISTOBAL SANCHEZ MD Service: General Surgery Author Type: Resident Type: Brief Op Note Filed: 11/23/2024 17:04 Note Text: GENERAL SURGERY BRIEF OP NOTE LOG ID: [id number] Surgery/Procedure Date: 11/23/2024 Incision/Procedure Start Time: 8:33 AM Incision Close/Procedure End Time: 4:58 PM Surgeon(s) and Superintendent Meters(s): Surgeons and Role: Panel 1: * Rocio Jeff MD - Primary * Cristobal Sanchez MD - Resident - Assisting Panel 2: * Raine Grissom MD - Primary * Kirt Fitzgerald MD - Fellow No Additional Staff Procedure(s): Procedure(s): HERNIORRHAPHY INCISIONAL ABDOMINAL RECURRENT REDUCIBLE GREATER THAN 10cm LAPAROSCOPIC RPR PARAESOPHAGEAL HERNIA W/O FUNDOPLASTY W/ MESH LAPAROSCOPIC GASTRIC RESTRICTIVE SURG W/ BYPASS AND BECKI-EN-Y 150CM OR LESS/ SLEEVE TO BYPASS Laparoscopic paraesphageal hernia repair Laparoscopic converted to open conversion of gastric sleeve to a Becki en Y gastric bypass Open right myofascial advancement flap Open left myofascial advancement flap Abdominal wall reconstruction with mesh Direct bilateral TAP block Anesthesia: General Findings: Inferior midline hernia defect associated with previous Pfannensteil incisions; dilated inferior epigastric pedicles; please see operative report for full details Tubes/Drains: 19F SANJUANITA drains x 2 on left overlying drain; 19F SANJUANITA drain on right within the subcutaneous space Estimated Blood Loss: 75 cc Specimens: * No specimens in log * Implant: * No implants in log * Wound Classification: Class 1, operative wound clean, non-traumatic, with no inflammation encountered, no break in technique, gastrointestinal and genitor-urinary tracts not entered Complications: None Pre-Op/Pre-Procedure Diagnosis: Pre-Op Diagnosis Codes: * Preoperative examination [Z01.818] * Hiatal hernia [K44.9] * Morbid obesity (HCC) [E66.01] Post-Op/Post-Procedur e Diagnosis: Same SIGNATURE: Cristobal Sanchez MD PATIENT NAME: Tiffani Allison DATE: November 23, 2024 TIME: 4:58 PM PAGER/CONTACT #: [phone] [facility] BRIEF OP NOT HNO ID: [id number] Author: KIRT FITZGERALD MD Service: General Surgery Author Type: Fellow Type: Brief Op Note Filed: 11/23/2024 15:58 Note Text: BARIATRIC SURGERY BRIEF OP NOTE LOG ID: [id number] Surgery/Procedure Date: 11/23/2024 Incision/Procedure Start Time: 8:33 AM Incision Close/Procedure End Time: 3:56 PM Surgeon(s) and Superintendent Meters(s): Surgeons and Role: Panel 1: * Rocio Jeff MD - Primary * Cristobal Sanchez MD - Resident - Assisting Panel 2: * Raine Grissom MD - Primary * Kirt Fitzgerald MD - Fellow No Additional Staff Procedure(s): Procedure(s): HERNIORRHAPHY INCISIONAL ABDOMINAL RECURRENT REDUCIBLE GREATER THAN 10cm LAPAROSCOPIC RPR PARAESOPHAGEAL HERNIA W/O FUNDOPLASTY W/ MESH LAPAROSCOPIC GASTRIC RESTRICTIVE SURG W/ BYPASS AND BECKI-EN-Y 150CM OR LESS/ SLEEVE TO BYPASS Anesthesia: General Findings: Lap hiatal hernia repair with posterior cruroplasty x3 and single anterior stitch. Lap GJ, converted to open for JJ, single 60 mm stapler for JJ, common enterotomy oversewn. 100 cm becki limb, 60 cm BP limb. Please see operative report for full details Drains: none for bariatric surgery IV Fluids: Per anesthesia report Estimated Blood Loss: 20 mls Estimated Urine Output: Per anesthesia report Specimens: * No specimens in log * Wound Classification: Class 2, operative wound clean-contaminated, gastrointestinal/bili leticia tract entered without significant spillage Complications: None Pre-Op/Pre-Procedure Diagnosis: Pre-Op Diagnosis Codes: * Preoperative examination [Z01.818] * Hiatal hernia [K44.9] * Morbid obesity (HCC) [E66.01] Post-Op/Post-Procedur e Diagnosis: Same SIGNATURE: Kirt Fitzgerald MD PATIENT NAME: Tiffani Allison DATE: November 23, 2024 TIME: 3:56 PM PAGER/CONTACT #: [phone] Normal [facility] CONFIRM BLOOD TYPEon 025 ABO A Normal [facility] Comment on above: Order Comment: Speci men Type: BLOOD SPECIMEN Ordering Facility: [facility] Address: [address] [place] [address] Performed By: #### 5 7021-8 #### [facility] CLIA [id number] [address] [place] [address] [place] Rh Nom (Bld) Negative Normal [facility] Comment on above: Order Comment: Speci men Type: BLOOD SPECIMEN Ordering Facility: [facility] Address: [address] [place] [address] Performed By: #### 5 7021-8 #### [facility] CLIA [id number] [address] [place] [address] [place] CONSULTon 11-23-2024 CONSULT HNO ID: [id number] Author: MARY MATTHEWS MD Service: Pain Management Author Type: Resident Type: Consults Filed: 11/24/2024 15:55 Note Text: Attestation signed by Mary Matthews MD at 11/24/2024 3:55 PM Attending Note I evaluated the patient and personally participated in the bermudez components. I agree with the resident's findings and plan with the following revisions and/or additions: PHOTO EQUIPMENT TECHNICIAN was occluding per patient and loved one in room. Nursing arranging to change PHOTO EQUIPMENT TECHNICIAN. Continue ketamine for 48 hour course total Signature: Mary Matthews MD Date: 11/24/2024 Time: 3:48 PM INITIAL CONSULT ACUTE PAIN MANAGEMENT SERVICE SERVICE DATE: 11/23/2024 SERVICE TIME: 2025 SERVICE REQUESTING CONSULT: General Surgery OPINION/ADVICE REGARDING: Postoperative pain Subjective CHIEF COMPLAINT: Postoperative pain HPI: Tiffani Allison is a 39 year old female who is POD # 0 S/P laparoscopic paraesophageal hernia repair, laparoscopic converted to open conversion of gastric sleeve to a Becki en Y gastric bypass, open right and left myofascial advancement flaps, abdominal wall reconstruction with mesh who reports postoperative and is described as: Location of Pain: Surgical site Pain Score at Rest: 2 Pain Score with Movement (Cough, Deep Breathe, Ambulation, etc): Unable to obtain Character: Aching Duration: Consistent Radiation: No Exacerbated By: movement Relieved: Yes - IV Pain medications, PO Pain medications, and PHOTO EQUIPMENT TECHNICIAN bolus Patient does not have a history of chronic pain. PAST MEDICAL HISTORY Diagnosis Date Inappropriate sinus tachycardia (HCC) 11/06/2024 Insulin resistance 11/06/2024 PAST SURGICAL HISTORY Procedure Laterality Date APPENDECTOMY HX ARTHROSCOPY KNEE DIAGNOSTIC W/WO SYNOVIAL BX SPX meniscus SECTION HX x3 PT ED BARIATRIC AND METABOLIC REMOVAL GALLBLADDER FAMILY HISTORY Problem Relation Age of Onset Anesthesia Problems No Family History Social History Tobacco Use Smoking status: Never Smokeless tobacco: Current Tobacco comments: Vape Substance Use Topics Alcohol use: Not Currently Drug use: Never ALLERGIES Allergen Reactions Penicillins Anaphylaxis, Cough, Hives, Itching, Rash, Shortness of Breath, Swelling, Unknown Other Reaction(s): throat swelling and hives Topiramate Intolerance Other Reaction(s): seizures DULoxetine (CYMBALTA) 30 mg capsule, Take 1 capsule by mouth once daily., Disp: , Rfl: , 11/23/2024 at 3:30 AM levothyroxine (SYNTHROID) 25 mcg tablet, Take 25 mcg by mouth once daily., Disp: , Rfl: , 11/23/2024 at 3:30 AM acetaminophen 325 mg cap, Take 650 mg by mouth every 6 hours as needed., Disp: , Rfl: , 11/22/2024 Noon amLODIPine (NORVASC) 10 mg tablet, Take 10 mg by mouth., Disp: , Rfl: , 11/23/2024 at 3:30 AM levothyroxine (SYNTHROID) 137 mcg tablet, TAKE 1 TABLET BY MOUTH IN THE MORNING BEFORE MEALS, Disp: , Rfl: , 11/23/2024 at 3:30 AM metoprolol succinate ER (TOPROL XL) 100 mg, Take 100 mg by mouth., Disp: , Rfl: , 11/23/2024 at 3:30 AM omeprazole (PRILOSEC) 40 mg capsule, Take 40 mg by mouth., Disp: , Rfl: , 11/22/2024 vit B-comp w-Fe,Ca,FA<1mg (IRON-VITAMINS ORAL), , Disp: , Rfl: , Past Week meloxicam (MOBIC) 15 mg tablet, Take 15 mg by mouth once daily., Disp: , Rfl: , Unknown metFORMIN (GLUCOPHAGE) 500 mg tablet, Take 1 tablet by mouth every 12 hours., Disp: , Rfl: , 11/18/2024 fluocinonide (LIDEX) 0.05 % external solution, APPLY TO THE AFFECTED AREA(S) topically DAILY, Disp: , Rfl: , Unknown ibuprofen (MOTRIN) 800 mg tablet, , Disp: , Rfl: , Unknown melatonin 1 mg chew, Take by mouth., Disp: , Rfl: , Unknown ondansetron orally disintegrating (ZOFRAN ODT) 4 mg disintegrating tablet, 1 (one) time each day at the same time, Disp: , Rfl: , Unknown Current Facility-Administered Medications Medication Dose Route Frequency [START ON 11/24/2024] amLODIPine 10 mg tab(s) (NORVASC) 10 mg ORAL DAILY [START ON 11/24/2024] metoprolol succinate ER 100 mg tab(s) (TOPROL XL) 100 mg ORAL DAILY [START ON 11/24/2024] levothyroxine 137 mcg tab(s) (SYNTHROID) 137 mcg ORAL DAILY (6 AM) potassium chloride 20 mEq in lactated ringers 1,000 mL INTRAVENOUS CONTINUOUS ondansetron (PF) 4 mg injection (ZOFRAN) 4 mg INTRAVENOUS q 6 H promethazine 12.5 mg/10 mL 25 mg oral liquid (PHENERGAN) 25 mg ORAL q 6 H PRN acetaminophen 1,000 mg CUP (TYLENOL) 1,000 mg ORAL q 6 H HYDROmorphone 0.2 mg injection (DILAUDID) 0.2 mg INTRAVENOUS q 2 H PRN oxyCODONE 5-10 mg oral liquid (ROXICODONE) 5-10 mg ORAL q 4 H PRN [START ON 11/24/2024] pantoprazole DR 40 mg tab(s) (PROTONIX) 40 mg ORAL DAILY (6 AM) NaCl 0.9% iv infusion 5-30 mL/hr INTRAVENOUS CONTINUOUS naloxone 0.1 mg injection (NARCAN) 0.1 mg INTRAVENOUS q 2 MIN PRN ketamine (PF) iv infusion 500 mg in NaCl (is (more content not included)... Normal [facility] OPERATIVE NOon 11-23-2024 OPERATIVE NO HNO ID: [id number] Author: RAINE GRISSOM MD Service: General Surgery Author Type: Physician Type: Operative Report Filed: 12/18/2024 08:38 Note Text: OPERATIVE/PROCEDURE REPORT LOG ID: [id number] Surgery/Procedure Date: 11/23/2024 Incision/Procedure Start Time: 8:33 AM Incision Close/Procedure End Time: 5:03 PM Surgeon(s)/Procedural ist(s) and Superintendent Meters(s): Surgeons and Role: Panel 1: * Rocio Jeff MD - Primary * Cristobal Sanchez MD - Resident - Assisting * Esha Ludwig MD - Resident - Assisting Panel 2: * Raine Grissom MD - Primary * Kirt Fitzgerald MD - Fellow Procedure(s): 1. Laparoscopic paraesophageal hernia repair 2. Laparoscopic conversion of sleeve gastrectomy to Becki-en-Y gastric bypass (100-cm antecolic antegastric Becki limb, and 60cm biliopancreatic limb). 3. Conversion to open laparotomy and creation of jejunojejunostomy 4. EGD See Dr. Jeff's dictation for hernia repair Pre-Op/Pre-Procedure Diagnosis: 1. Class III obesity (body mass index equals 45 kg per meter square). 2. Weight related comorbidities including HTN, GERD, hypothyroidism, sinus tachycardia, insulin resistance, iron deficiency anemia, psoriatic arthritis 3. GERD 4. Paraesophageal hernia consisting of proximal sleeve Post-Op/Post-Procedur e Diagnosis: Same Anesthesia: General Operative Indication: Tiffani Allison is a 39 year old F with clinically severe obesity and weight related comorbidities as listed. Tiffani Allison had previously undergone a sleeve gastrectomy, and experienced weight regain, as well as severe GERD symptoms. She also had some symptoms associated with a small hiatal hernia of her proximal sleeve. Concurrently, she had an incisional hernia that was lifestyle limiting, and she desired repair for this also, which required abdominal wall reconstruction. The patient underwent evaluation by our multidisciplinary team and was considered a good candidate for conversion to laparoscopic gastric bypass. The decision was made to perform this concurrently with Dr. Jeff's portion. We discussed the risks, benefits, alternatives, and potential complications and the patient agreed to proceed. Operative Findings: 1. Upon completion, there was a gastric pouch, end-to-side gastrojejunostomy, 100-cm antecolic-antegastric Becki limb, stapled side to side enteroenterostomy. 2. Negative leak test Procedure Details: The patient was taken to the operating room and placed in supine position. A sign in huddle was performed by the surgical and anesthesia teams. Following induction of general anesthesia and endotracheal intubation, the patient was prepped and draped in the usual sterile fashion. A left subcostal incision was made and Veress needle was inserted. Saline drop test was appropriate. The abdomen was insufflated with carbon dioxide to a pressure of 15 mmHg with no physiologic derangements. A 5-mm port laparoscope was inserted above the umbilicus with optical entry. Under direct vision, a 5-mm left paramedian port, 12-mm left upper quadrant port, and two right sided ports were placed. The omentum and transverse colon were retracted cephalad and the ligament of Treitz was identified. The jejunum was evaluated, and there was an appropriate length of small bowel that was available for reconstruction. The omentum was divided with the ligasure device. The sleeve stomach was inspected. It appeared of normal caliber, not dilated, and no excess fundus. The javier-greater curvature was dissected free of adhesions. The hiatal hernia was assessed. The sleeve stomach was partially reduced and the pars flaccida was identified and opened with the energy device. With further dissection towards the right kevin, the peritoneum over the right kevin was identified and this was bluntly from the hernia sac. This dissection was carried out circumferentially in clockwise fashion. The hernia sac layer was identified and gradually reduced, and the areolar tissue and adhesions in the mediastinum were taken down with a combination of blunt dissection and some energy. This was continued until the left kevin was identified. A retroesophageal window was created bluntly. A gayathri was inserted and used to encircle the esophagus. With the esophagus retracted out of the way, further mediastinal dissection was undertaken in order to gain more intraabdominal esophageal length. We examined the lay of the esophagus, there was about 3cm of intraabdominal length. The crura was closed with 0-Ethibond sutures in interrupted fashion. 3 stitches were placed posteriorly and one interrupted stitch anteriorly until there was an appropriate aperture around the esophagus. A 34Fr bougie was inserted by Anesthesia under direct visualization. Attention was turned to creation of the gastric pouch. A perigastric window was created with a combination of energy and blunt dissection. The gastric pouch was fashi (more content not included)... Normal [facility] OPERATIVE NO HNO ID: [id number] Author: ROCIO JEFF MD Service: General Surgery Author Type: Physician Type: Operative Report Filed: 11/26/2024 08:55 Note Text: [facility] - Operative Report [address] [place] [address] [place] TIFFANI ALLISON : 1985 AGE: 39. SEX: F PATIENT TYPE: [place] [facility] [place] LOCATION: [id number] ATTENDING PHYSICIAN: Rocio Jeff M.D. CSN NUMBER: [id number] DATE OF SURGERY/PROCEDURE: 11/23/2024 INCISION/PROCEDURE START TIME: 8:33 AM INCISION CLOSE/PROCEDURE END TIME: 5:03 PM PREOPERATIVE DIAGNOSIS: Incisional hernia and paraesophageal hernia. POSTOPERATIVE DIAGNOSIS: Incisional hernia and paraesophageal hernia. SURGEON: Rocio Jeff M.D. CALL CENTRE SUPERVISOR: Dr. Cristobal Sanchez. SURGERY/PROCEDURE: Open left posterior myofascial component separation, open right posterior myofascial component separation, and incisional hernia repair with mesh. ANESTHESIA: General endotracheal. ESTIMATED BLOOD LOSS: 25 mL. COMPLICATIONS: None apparent. PANEL 1: Raine Grissom M.D. ([place]) with a laparoscopic paraesophageal hernia repair and conversion to Becki-en-Y gastric bypass, which will be dictated in a separate note. INDICATIONS FOR PROCEDURE: The patient is a 39-year-old female with multiple comorbidities including obesity and active smoker and sleep apnea, who presented with a very symptomatic incisional hernia and also severe gastroesophageal reflux with a prior gastric sleeve, which was herniated into the chest. Dr. Grissom and I both saw her and prior to the operation, we recommended conversion to Becki-en-Y gastric bypass with weight loss and subsequent hernia repair. However, the patient was very symptomatic from the hernia and was strongly in favor of repairing both at the same time, so therefore we offered her combination surgery. As mentioned previously, Dr. Grissom did the laparoscopic paraesophageal hernia repair with conversion to Becki-en-Y gastric bypass, which was dictated separately and then I came in for the ventral incisional hernia repair with mesh. DESCRIPTION OF PROCEDURE: The patient's abdomen was already open from laparotomy from prior operation. When I arrived in the OR, we re-prepped and draped the entire abdomen and then extended the incision in a caudal direction to expose the bowel. We examined the length of the bowel and checked the abdomen for hemostasis and finding it to be hemostatic and in good condition, we placed a blue towel into the abdomen after measuring the defect to be 15 cm in greatest width by 28 cm in greatest length. This was essentially a suprapubic hernia with disruption of the rectus abdominis muscles from the anterior fascia and so it was very low in the abdomen. Once we placed a blue towel, we started on the patient's right side, taking down the posterior sheath in hemostatic fashion out to the perforating neurovascular bundles and the deep inferior epigastric vessels, which were identified and preserved. The deep inferior epigastric vessels on the right side were very congested and were bifid as well and appeared to be almost variceal in nature. After we got out to the neurovascular bundles, we incised the posterior lamella of the internal oblique in the posterior rectus sheath to reveal the transversus abdominis muscle in the upper abdomen and transversalis fascia in the lower abdomen. These were divided in a cephalad to caudal direction. We exploited the retroperitoneal plane back to the lateral aspect of the psoas and up underneath the costal margin towards the central tendon of the diaphragm. On the left side, we turned our attention to the posterior sheath, which was taken down in hemostatic fashion out to the perforating neurovascular bundles of the deep inferior epigastric vessels, which were identified and preserved. Coming just medial to this, we incised the posterior lamella of the internal oblique and the posterior rectus sheath to reveal the transversus abdominis muscle in the upper abdomen and transversalis fascia in the lower abdomen. These were divided in a caudal cephalad direction. We exploited the retroperitoneal plane back to the lateral aspect of the psoas and up underneath the costal margin towards the central tendon of the diaphragm. Once this was done, we completed the dissection of the space of Retzius in the lower abdomen and the diaphragmatic dissection in the upper abdomen. We then closed the posterior rectus sheath onto itself using 2-0 running Vicryl sutures and came together without any undue tension. TAP blocks were performed on both sides of the abdomen using 0.25% bupivacaine and then we placed a 30 x 30 cm piece of Prolene mesh in a gray configuration of the retromuscular plane with 2 retromuscular drains placed on the left side into the retromuscular space and the muscle, which had been from the anterior fascia in (more content not included)... Normal [facility] VENOUS BLOOD GASES WITH IONI ZED MAGNESIUMon 11-23-2024 BASE DEFICIT, VENOUS >-1 [facility] -[facility] Comment on above: Order Comment: Speci men Type: BLOOD SPECIMEN Ordering Facility: [facility] Address: [address] [place] [address] Performed By: #### 2 4321-2, 2777-1, 11716-4 #### [facility] CLIA [id number] [address] [place] [address] [place] Calcium.ionized (Bld) [Mass/Vol] 1.04 mmol/L Low 1.08-1.30 [facility] Comment on above: Order Comment: Speci men Type: BLOOD SPECIMEN Ordering Facility: [facility] Address: [address] [place] [address] [place] [address] Performed By: #### 2 4321-2, 2776-08, #### [facility] CLIA [id number] [address] [place] [address] [place] Calcium.ionized adjusted to pH 7.4 (BldA) [Moles/Vol] 1.04 mmol/L Low 1.08-1.30 [facility] Comment on above: Order Comment: Speci men Type: BLOOD SPECIMEN Ordering Facility: [facility] Address: [address] [place], [place] [address] Performed By: #### 2 4321-2, 2776-08, #### [facility] CLIA [id number] [address] [place] [address] [place] Carboxyhemoglobin (BldV) [Mass fraction] 2.1 % High 0.0-2.0 [facility] Comment on above: Order Comment: Speci men Type: BLOOD SPECIMEN Ordering Facility: [facility] Address: [address] [place], [place] [address] Result Comment: Carb oxyhemoglobin Reference Range for Smokers: 2.0-8.0% Performed By: #### 2 4321-2, 2776-08, #### [facility] CLIA [id number] [address] [place], [place] [address] [place] CO2 (BldV) [Partial pressure] 39 mm[Hg] Low 42-55 [facility] Comment on above: Order Comment: Speci men Type: BLOOD SPECIMEN Ordering Facility: [facility] Address: [address] [place], [place] [address] Performed By: #### 2 4321-2, 2776-08, #### [facility] CLIA [id number] [address] [place], [place] [address] [place] CO2 adjusted to patient's actual temperature (BldV) [Partial pressure] 39 mmHg Low 42-55 [facility] Comment on above: Order Comment: Speci men Type: BLOOD SPECIMEN Ordering Facility: [facility] Address: [address] [place], [place] [address] Performed By: #### 2 4321-2, 2776-08, #### [facility] CLIA [id number] [address] [place], [place] [address] [place] Glucose [Mass/Vol] 166 mg/dL High 60-105 [facility] Comment on above: Order Comment: Speci men Type: BLOOD SPECIMEN Ordering Facility: [facility] Address: [address] [place] [address] Performed By: #### 2 4321-2, 2776-08, #### [facility] CLIA [id number] [address] [place] [address] [place] HCO3 (Bld) [Moles/Vol] 24 mmol/L Normal 24-28 [facility] Comment on above: Order Comment: Speci men Type: BLOOD SPECIMEN Ordering Facility: [facility] Address: [address] [place], [place] [address] Performed By: #### 2 4321-2, 2776-08, #### [facility] CLIA [id number] [address] [place] [address] [place] Hematocrit (Bld) [Volume fraction] 40.2 % Normal 36.0-46.0 [facility] Comment on above: Order Comment: Speci men Type: BLOOD SPECIMEN Ordering Facility: [facility] Address: [address] [place], [place] [address] Performed By: #### 2 4321-2, 2776-08, #### [facility] CLIA [id number] [address] [place], [place] [address] [place] Hemoglobin (Bld) [Mass/Vol] 13.1 g/dL Normal 11.5-15.5 [facility] Comment on above: Order Comment: Speci men Type: BLOOD SPECIMEN Ordering Facility: [facility] Address: [address] [place], [place] [address] Performed By: #### 2 4321-2, 2776-08, #### [facility] CLIA [id number] [address] [place], [place] [address] [place] Lactate [Moles/Vol] 1.8 mmol/L Normal 0.5-2.2 [facility] Comment on above: Order Comment: Speci men Type: BLOOD SPECIMEN Ordering Facility: [facility] Address: [address] [place], [place] [address] Performed By: #### 2 4321-2, 27701-29, #### [facility] CLIA [id number] [address] [place], [place] [address] [place] Magnesium [Moles/Vol] 0.63 mmol/L High 0.45-0.60 [facility] Comment on above: Order Comment: Speci men Type: BLOOD SPECIMEN Ordering Facility: [facility] Address: [address] [place], [place] [address] Performed By: #### 2 4321-2, 2776-08, #### [facility] CLIA [id number] [address] [place], [place] [address] [place] Methemoglobin (Bld) [Mass fraction] 1.2 % Normal 0.0-1.5 [facility] Comment on above: Order Comment: Speci men Type: BLOOD SPECIMEN Ordering Facility: [facility] Address: [address] [place], [place] [address] Performed By: #### 2 4321-2, 2776-08, #### [facility] CLIA [id number] [address] [place], [place] [address] [place] Oxygen (BldV) [Partial pressure] 115 mm[Hg] High 35-45 [facility] Comment on above: Order Comment: Speci men Type: BLOOD SPECIMEN Ordering Facility: [facility] Address: [address] [place] [address] Performed By: #### 2 4321-2, 2777, #### [facility] CLIA [id number] [address] [place] [address] [place] Oxygen adjusted to patient's actual temperature (BldV) [Partial pressure] 115 mmHg High 35-45 [facility] Comment on above: Order Comment: Speci men Type: BLOOD SPECIMEN Ordering Facility: [facility] Address: [address] [place] [address] Performed By: #### 2 4321-2, 27701-29, #### [facility] CLIA [id number] [address] [place] [address] [place] Oxygen saturation in Venous blood 99 % High 60-85 [facility] Comment on above: Order Comment: Speci men Type: BLOOD SPECIMEN Ordering Facility: [facility] Address: [address] [place] [address] Performed By: #### 2 4321-2, 27701-29, #### [facility] CLIA [id number] [address] [place] [address] [place] Oxyhemoglobin (BldV) [Mass fraction] 95 % High 60-85 [facility] Comment on above: Order Comment: Speci men Type: BLOOD SPECIMEN Ordering Facility: [facility] Address: [address] [place] [address] Performed By: #### 2 4321-2, 27701-29, #### [facility] CLIA [id number] [address] [place], [place] [address] [place] pH (BldV) 7.40 [pH] Normal 7.32-7.42 [facility] Comment on above: Order Comment: Speci men Type: BLOOD SPECIMEN Ordering Facility: [facility] Address: [address] [place] [address] Performed By: #### 2 4321-2, 27701-29, #### [facility] [facility] CLIA [id number] [address] [place] [address] [place] pH adjusted to patient's actual temperature (BldV) 7.40 Normal 7.32-7.42 [facility] Comment on above: Order Comment: Speci men Type: BLOOD SPECIMEN Ordering Facility: [facility] Address: [address] [place] [address] Performed By: #### 2 4321-2, 27701-29, #### [facility] CLIA [id number] [address] [place] [address] [place] Potassium [Moles/Vol] 4.4 mmol/L Normal 3.5-5.0 [facility] Comment on above: Order Comment: Speci men Type: BLOOD SPECIMEN Ordering Facility: [facility] Address: [address] [place] [address] Performed By: #### 2 4321-2, 27701-29, #### [facility] CLIA [id number] [address] [place] [address] [place] Sodium [Moles/Vol] 137 mmol/L Normal 136-144 [facility] Comment on above: Order Comment: Speci men Type: BLOOD SPECIMEN Ordering Facility: [facility] Address: [address] [place] [address] Performed By: #### 2 4321-2, 27701-29, #### [facility] CLIA [id number] [address] [place] [address] [place] Cedric 11-09-2024 BRANDONN Telephone ([facility]) TIFFANI ALLISON ([id number]) 1985 F Date Time Provider Department 11/09/24 KRISTI WATTS During your visit today, we recorded the following information about you: Kristi Watts, RN 11/09/2024 1:24 PM Signed [facility] COORDINATION SURGERY APPROVAL CALL Received e-mail confirmation of insurance approval for bariatric surgery.Pre-operative call placed to the patient, this RN spoke with patient and agreed upon a surgery date of November 23 2024. Surgical episode request sent to [facility] surgery scheduling. Patient understands that the surgery type is Gastric Bypass as approved by insurance. Creatinine level 0.67 Patient instructed to start pre-op 800 calorie total protein liquid diet Atkins (5) daily beginning 2 weeks prior to surgery. - Stop all ASA and NSAID products, [place] 3 fish oil, herbal products such as ginko etc. Stop vitamins EXCEPT B COMPLEX- take this up to the day before surgery - Medication List reviewed and patient will contact prescribing physician regarding use of n/a while on pre-operative diet. - Patient denies use of N/A. Talk with your prescribing MD if you take the following - should be monitored closely during the preoperative liquid diet with most held at the start of the diet given them. ALL of these medications should AT LEAST be held the day prior to surgery Actos Amaryl Glipizide Glucophage Metformin Anti-obesity medications - stop 1 week before surgery Phentermine Qsymia Contrave Vyvanse Diethylproprion Phendimetrazine Saxenda Wegovy SGLT2 inhibitors should be stopped 3-4 days before surgery - avoid using during the first weeks following bariatric surgery because of the risk of dehydration Jardiance Farxiga Invokana Sleep apnea requiring treatment? No. Patient will require FMLA forms to be completed? No. - Ale video assigned. - Introduced Bariatric destination imagination coordinator Yes - All questions and concerns addressed and patient verbalized understanding. - Patient case reviewed. All nutrition appointments completed, psychology clearance obtained, surgeon visit and procedure type verified, medical optimization obtained and all testing complete. Does patient have Con ABO? Yes, patient has Con ABO. [facility] - a research program mentioned to patient and the bermudez points below reviewed: o Voluntary participation won?t impact your care o You are being asked to donate your leftover blood and other bodily fluids that are collected during treatment and are normally thrown out to instead be collected and stored for future research o Future research could include genetic testing o Future research with your samples may be done by scientists or scientists at other institutions o All samples are stored without any identifiable private information, and your identity will not be released to anyone outside of without a special review process that is required by law Study Explained: Yes Patient info sent via My Chart: Yes Kristi Watts RN Allergies As of Date: 11/09/2024 Noted Allergy Reaction PENICILLINS 10/26/2022 10 - Anaphylaxis 3 - Cough 4 - Hives 9 - Itching 2 - Rash 12 - Shortness of Breath 7 - Swelling 16 - Unknown Comments: Other Reaction(s): throat swelling and hives TOPIRAMATE 01/04/2023 5 - Intolerance Comments: Other Reaction(s): seizures Date Reviewed: 11/06/2024 Reviewed by: Lachelle Banegas PA-C - Fully Assessed Reason for Visit: Approval call [Other] Prescriptions as of 11/09/2024 - DULoxetine (CYMBALTA) 30 mg capsule Take 1 capsule by mouth once daily. - meloxicam (MOBIC) 15 mg tablet Take 15 mg by mouth once daily. - metFORMIN (GLUCOPHAGE) 500 mg tablet Take 1 tablet by mouth every 12 hours. - levothyroxine (SYNTHROID) 25 mcg tablet Take 25 mcg by mouth once daily. - acetaminophen 325 mg cap Take 650 mg by mouth every 6 hours as needed. - amLODIPine (NORVASC) 10 mg tablet Take 10 mg by mouth. - fluocinonide (LIDEX) 0.05 % external solution APPLY TO THE AFFECTED AREA(S) topically DAILY - ibuprofen (MOTRIN) 800 mg tablet - [...] each day at the same time - vit B-comp w-Fe,Ca,FA<1mg (IRON-VITAMINS ORAL) Problem List As Of Date 11/09/2024 Noted Resolved GERD (gastroesophageal reflux disease) [K21.9] 11/06/2024 Hypothyroidism [E03.9] 10/23/2022 Hypertension [I10] 11/06/2024 Iron deficiency anemia [D50.9] 10/20/2022 Psoriatic arthritis (HCC) [L40.50] 11/06/2024 Inappropriate sinus tachycardia (HCC) [ (more content not included)... Normal [facility] Activated partial thrombopla stin time (aPTT) in platelet poor plasma by coagulation aon 11-06-2024 aPTT Coag (PPP) [Time] Activated partial thromboplastin time (aPTT) in platelet poor plasma by coagulation a 23.0-32.4 [facility] Basophils Auto (Bld) [#/Vol] on 11-06-2024 Basophils (Bld) [#/Vol] Automated basophil count <0.11 [facility] Basophils/100 WBC Auto (Bld) on 11-06-2024 Basophils/100 WBC (Bld) Automated basophil % [facility] Blood manual differential co mment interpretation narrativeon 11-06-2024 Manual differential comment Asa (Bld) [Interp] Blood manual differential comment interpretation narrative [facility] CBC W Auto Differential pane l (Bld)on 11-06-2024 Basophils (Bld) [#/Vol] 0.04 10*3/uL Normal <0.11 [facility] Comment on above: Order Comment: Speci men Type: BLOOD SPECIMEN Ordering Facility: [facility] Address: [address] [place] [address] Performed By: #### 2 4321-2, 2776-08, #### [facility] CLIA [id number] [address] [place] [address] [place] [address] [place] Basophils/100 WBC (Bld) 0.4 % Normal [facility] Comment on above: Order Comment: Speci men Type: BLOOD SPECIMEN Ordering Facility: [facility] Address: [address] [place] [address] Performed By: #### 2 4321-2, 2776-08, #### [facility] CLIA [id number] [address] [place] [address] [place] Differential cell count method Nom (Bld) Auto Normal [facility] Comment on above: Order Comment: Speci men Type: BLOOD SPECIMEN Ordering Facility: [facility] Address: [address] [place] [address] Performed By: #### 2 4321-2, 2776-08, #### [facility] CLIA [id number] [address] [place] [address] [place] Eosinophils (Bld) [#/Vol] 0.12 10*3/uL Normal <0.46 [facility] Comment on above: Order Comment: Speci men Type: BLOOD SPECIMEN Ordering Facility: [facility] Address: [address] [place] [address] Performed By: #### 2 4321-2, 2776-08, #### [facility] CLIA [id number] [address] [place] [address] [place] Eosinophils/100 WBC (Bld) 1.1 % Normal [facility] Comment on above: Order Comment: Speci men Type: BLOOD SPECIMEN Ordering Facility: [facility] Address: [address] [place] [address] Performed By: #### 2 4321-2, 2776-08, #### [facility] CLIA [id number] [address] [place], [place] [address] [place] Erythrocyte distribution width (RBC) [Ratio] 13.9 % Normal 11.5-15.0 [facility] Comment on above: Order Comment: Speci men Type: BLOOD SPECIMEN Ordering Facility: [facility] Address: [address] [place] [address] Performed By: #### 2 4321-2, 2776-08, #### [facility] CLIA [id number] [address] [place], [place] [address] [place] Hematocrit (Bld) [Volume fraction] 43.4 % Normal 36.0-46.0 [facility] Comment on above: Order Comment: Speci men Type: BLOOD SPECIMEN Ordering Facility: [facility] Address: [address] [place] [address] Performed By: #### 2 4321-2, 27701-29, #### [facility] CLIA [id number] [address] [place], [place] [address] [place] Hemoglobin (Bld) [Mass/Vol] 14.5 g/dL Normal 11.5-15.5 [facility] Comment on above: Order Comment: Speci men Type: BLOOD SPECIMEN Ordering Facility: [facility] Address: [address] [place] [address] Performed By: #### 2 4321-2, 27701-29, #### [facility] CLIA [id number] [address] [place] [address] [place] Immature granulocytes (Bld) [#/Vol] 0.04 10*3/uL Normal <0.10 [facility] Comment on above: Order Comment: Speci men Type: BLOOD SPECIMEN Ordering Facility: [facility] Address: [address] [place] [address] Performed By: #### 2 4321-2, 2776-08, #### [facility] CLIA [id number] [address] [place], [place] [address] [place] Immature granulocytes/100 WBC (Bld) 0.4 % Normal [facility] Comment on above: Order Comment: Speci men Type: BLOOD SPECIMEN Ordering Facility: [facility] Address: [address] [place] [address] Performed By: #### 2 4321-2, 27701-29, #### [facility] CLIA [id number] [address] [place], [place] [address] [place] Lymphocytes (Bld) [#/Vol] 2.51 10*3/uL Normal 1.00-4.00 [facility] Comment on above: Order Comment: Speci men Type: BLOOD SPECIMEN Ordering Facility: [facility] Address: [address] [place] [address] Performed By: #### 2 4321-2, 2777, #### [facility] CLIA [id number] [address] [place] [address] [place] Lymphocytes/100 WBC (Bld) 22.3 % Normal [facility] Comment on above: Order Comment: Speci men Type: BLOOD SPECIMEN Ordering Facility: [facility] Address: [address] [place] [address] Performed By: #### 2 4321-2, 27701-29, #### [facility] CLIA [id number] [address] [place] [address] [place] MCH (RBC) [Entitic mass] 28.3 pg Normal 26.0-34.0 [facility] Comment on above: Order Comment: Speci men Type: BLOOD SPECIMEN Ordering Facility: [facility] Address: [address] [place] [address] Performed By: #### 2 4321-2, 27701-29, #### [facility] CLIA [id number] [address] [place] [address] [place] MCHC (RBC) [Mass/Vol] 33.4 g/dL Normal 30.5-36.0 [facility] Comment on above: Order Comment: Speci men Type: BLOOD SPECIMEN Ordering Facility: [facility] Address: [address] [place] [address] Performed By: #### 2 4321-2, 2777, #### [facility] CLIA [id number] [address] [place] [address] [place] MCV (RBC) [Entitic vol] 84.8 fL Normal 80.0-100.0 [facility] Comment on above: Order Comment: Speci men Type: BLOOD SPECIMEN Ordering Facility: [facility] Address: [address] [place] [address] Performed By: #### 2 4321-2, 277-1, #### [facility] CLIA [id number] [address] [place] [address] [place] Monocytes (Bld) [#/Vol] 0.78 10*3/uL Normal <0.87 [facility] Comment on above: Order Comment: Speci men Type: BLOOD SPECIMEN Ordering Facility: [facility] Address: [address] [place] [address] Performed By: #### 2 4321-2, 27701-29, #### [facility] CLIA [id number] [address] [place] [address] [place] Monocytes/100 WBC (Bld) 6.9 % Normal [facility] Comment on above: Order Comment: Speci men Type: BLOOD SPECIMEN Ordering Facility: [facility] Address: [address] [place] [address] Performed By: #### 2 4321-2, 27701-29, #### [facility] CLIA [id number] [address] [place] [address] [place] Neutrophils (Bld) [#/Vol] 7.76 10*3/uL High 1.45-7.50 [facility] Comment on above: Order Comment: Speci men Type: BLOOD SPECIMEN Ordering Facility: [facility] Address: [address] [place] [address] Performed By: #### 2 4321-2, 277-1, #### [facility] CLIA [id number] [address] [place] [address] [place] Neutrophils/100 WBC (Bld) 68.9 % Normal [facility] Comment on above: Order Comment: Speci men Type: BLOOD SPECIMEN Ordering Facility: [facility] Address: [address] [place] [address] Performed By: #### 2 4321-2, 2776-08, #### [facility] CLIA [id number] [address] [place] [address] [place] Nucleated RBC (Bld) [#/Vol] 10*3/uL Normal <0.01 [facility] Comment on above: Order Comment: Speci men Type: BLOOD SPECIMEN Ordering Facility: [facility] Address: [address] [place] [address] Performed By: #### 2 4321-2, 2776-08, #### [facility] CLIA [id number] [address] [place] [address] [place] Nucleated RBC/100 WBC (Bld) [Ratio] 0.0 /100 WBC Normal [facility] Comment on above: Order Comment: Speci men Type: BLOOD SPECIMEN Ordering Facility: [facility] Address: [address] [place] [address] Performed By: #### 2 4321-2, 2776-08, #### [facility] CLIA [id number] [address] [place] [address] [place] Platelet mean volume (Bld) [Entitic vol] 10.1 fL Normal 9.0-12.7 [facility] Comment on above: Order Comment: Speci men Type: BLOOD SPECIMEN Ordering Facility: [facility] Address: [address] [place] [address] Performed By: #### 2 4321-2, 2776-08, #### [facility] CLIA [id number] [address] [place] [address] [place] Platelets (Bld) [#/Vol] 250 10*3/uL Normal 150-400 [facility] Comment on above: Order Comment: Speci men Type: BLOOD SPECIMEN Ordering Facility: [facility] Address: [address] [place] [address] Performed By: #### 2 4321-2, 2777-1, #### [facility] CLIA [id number] [address] [place] [address] [place] RBC (Bld) [#/Vol] 5.12 10*6/uL Normal 3.90-5.20 [facility] Comment on above: Order Comment: Speci men Type: BLOOD SPECIMEN Ordering Facility: [facility] Address: [address] [place] [address] Performed By: #### 2 4321-2, 2777-, #### [facility] CLIA [id number] [address] [place] [address] [place] WBC (Bld) [#/Vol] 11.25 10*3/uL High 3.70-11.00 [facility] Comment on above: Order Comment: Speci men Type: BLOOD SPECIMEN Ordering Facility: [facility] Address: [address] [place] [address] Performed By: #### 2 4321-2, 2777-, #### [facility] CLIA [id number] [address] [place] [address] [place] CNOVon 11-06-2024 CNOV Office Visit (GENHARLAN ) TIFFANI ALLISON ([id number]) 1985 F Date Time Provider Department 11/06/24 11:00 AM COLETTE MENDOZA During your visit today, we recorded the following information about you: Colette Mendoza, PhD 11/06/2024 4:26 PM Signed [facility] Name: Tiffani Allison MR#: [id number] Date: 11/06/2024 Time: 1 hour Referred by: Dr. Jeff Reason for Referral: address psychological factors as they can affect post-operative recovery. Information relayed back to referral source via electronic medical record Her chart was reviewed and she gave her own complex medical and social history. She was seen with her . In addition to her hernia, she also has anxiety and it is helped by Cymbalta. The basic underlying psychological and physiological mechanisms behind the brain body connection were explained. She was introduced to the concepts and techniques that she can employ to help with pain and healing after surgery. She was given the link to the Behavioral Medicine Program website, instructed on the use of the relaxation recordings, and told of the informational content. She was given the opportunity to ask questions and informed that she could be seen again. Colette Webb, Ph.D. Referring Provider: GINGER SILVEIRA [[id number]] Allergies As of Date: 11/06/2024 Noted Allergy Reaction PENICILLINS 10/26/2022 10 - Anaphylaxis 3 - Cough 4 - Hives 9 - Itching 2 - Rash 12 - Shortness of Breath 7 - Swelling 16 - Unknown Comments: Other Reaction(s): throat swelling and hives TOPIRAMATE 01/04/2023 5 - Intolerance Comments: Other Reaction(s): seizures Date Reviewed: 11/06/2024 Reviewed by: Lachelle Banegas PA-C - Fully Assessed Visit Diagnoses:Preoperativ e examination [Z01.818] Hiatal hernia [K44.9] Morbid obesity (HCC) [E66.01] Order(s):CONSULT TO [facility] [[id number]] Order #: [id number]: 1 Prescriptions as of 11/06/2024 - DULoxetine (CYMBALTA) 30 mg capsule Take 1 capsule by mouth once daily. - meloxicam (MOBIC) 15 mg tablet Take 15 mg by mouth once daily. - metFORMIN (GLUCOPHAGE) 500 mg tablet Take 1 tablet by mouth every 12 hours. - levothyroxine (SYNTHROID) 25 mcg tablet Take 25 mcg by mouth once daily. - acetaminophen 325 mg cap Take 650 mg by mouth every 6 hours as needed. - amLODIPine (NORVASC) 10 mg tablet Take 10 mg by mouth. - fluocinonide (LIDEX) 0.05 % external solution APPLY TO THE AFFECTED AREA(S) topically DAILY - ibuprofen (MOTRIN) 800 mg tablet - [...] each day at the same time - vit B-comp w-Fe,Ca,FA<1mg (IRON-VITAMINS ORAL) Problem List As Of Date 11/06/2024 Noted Resolved GERD (gastroesophageal reflux disease) [K21.9] 11/06/2024 Hypothyroidism [E03.9] 10/23/2022 Hypertension [I10] 11/06/2024 Iron deficiency anemia [D50.9] 10/20/2022 Psoriatic arthritis (HCC) [L40.50] 11/06/2024 Inappropriate sinus tachycardia (HCC) [I47.11] 11/06/2024 Insulin resistance [E88.819] 11/06/2024 Class 3 severe obesity without serious comorbid*11/06/2024 Encounter Status:Closed by COLETTE MENDOZA on 11/06/24 Normal [facility] Comprehensive metabolic 2000 panelon 11-06-2024 Albumin [Mass/Vol] 4.1 g/dL Normal 3.9-4.9 [facility] Comment on above: Order Comment: Speci men Type: BLOOD SPECIMEN Ordering Facility: [facility] Address: [address] [place] [address] Performed By: #### 5 7021-8 #### [facility] CLIA [id number] [address] [place] [address] [place] [address] [place] ALP [Catalytic activity/Vol] 69 U/L Normal 34-123 [facility] Comment on above: Order Comment: Speci men Type: BLOOD SPECIMEN Ordering Facility: [facility] Address: [address] [place], [place] [address] Performed By: #### 5 7021-8 #### [facility] CLIA [id number] [address] [place], [place] [address] [place] ALT [Catalytic activity/Vol] 36 U/L Normal 7-38 [facility] Comment on above: Order Comment: Speci men Type: BLOOD SPECIMEN Ordering Facility: [facility] Address: [address] [place] [address] Performed By: #### 5 7021-8 #### [facility] CLIA [id number] [address] [place] [address] [place] Anion gap [Moles/Vol] 12 mmol/L Normal 8-15 [facility] Comment on above: Order Comment: Speci men Type: BLOOD SPECIMEN Ordering Facility: [facility] Address: [address] [place] [address] Performed By: #### 5 7021-8 #### [facility] CLIA [id number] [address] [place] [address] [place] AST [Catalytic activity/Vol] 23 U/L Normal 13-35 [facility] Comment on above: Order Comment: Speci men Type: BLOOD SPECIMEN Ordering Facility: [facility] Address: [address] [place], [place] [address] Performed By: #### 5 7021-8 #### [facility] CLIA [id number] [address] [place], [place] [address] [place] Bilirubin [Mass/Vol] 0.5 mg/dL Normal 0.2-1.3 [facility] Comment on above: Order Comment: Speci men Type: BLOOD SPECIMEN Ordering Facility: [facility] Address: [address] [place], [place] [address] Performed By: #### 5 7021-8 #### [facility] CLIA [id number] [address] [place] [address] [place] Calcium [Mass/Vol] 9.0 mg/dL Normal 8.5-10.2 [facility] Comment on above: Order Comment: Speci men Type: BLOOD SPECIMEN Ordering Facility: [facility] Address: [address] [place] [address] Performed By: #### 5 7021-8 #### [facility] CLIA [id number] [address] [place] [address] [place] Chloride [Moles/Vol] 104 mmol/L Normal 98-107 [facility] Comment on above: Order Comment: Speci men Type: BLOOD SPECIMEN Ordering Facility: [facility] Address: [address] [place] [address] Performed By: #### 5 7021-8 #### [facility] CLIA [id number] [address] [place] [address] [place] CO2 [Moles/Vol] 26 mmol/L Normal 22-30 [facility] Comment on above: Order Comment: Speci men Type: BLOOD SPECIMEN Ordering Facility: [facility] Address: [address] [place] [address] Performed By: #### 5 7021-8 #### [facility] CLIA [id number] [address] [place] [address] [place] Creatinine [Mass/Vol] 0.67 mg/dL Normal 0.58-0.96 [facility] Comment on above: Order Comment: Speci men Type: BLOOD SPECIMEN Ordering Facility: [facility] Address: [address] [place] [address] Performed By: #### 5 7021-8 #### [facility] CLIA [id number] [address] [place] [address] [place] Creatinine and Glomerular filtration rate.predicted panel (S/P/Bld) 115 mL/min/1.73m??? Normal >=60 [facility] Comment on above: Order Comment: Christiano cardozo Type: BLOOD SPECIMEN Ordering Facility: [facility] Address: [address] [place] [address] Result Comment: Ayla mated Glomerular Filtration Rate (eGFR) is calculated using the 2020 CKD-EPI creatinine equation. This equation utilizes serum creatinine, sex, and age as parameters. The creatinine assay has traceable calibration to isotope dilution-mass spectrometry. Refer to KDIGO guidelines for clinical interpretation. In patients with unstable renal function, e.g. those with acute kidney injury, the eGFR may not accurately reflect actual GFR. Performed By: #### 5 7021-8 #### [facility] CLIA [id number] [address] [place] [address] [place] Glucose [Mass/Vol] 130 mg/dL High 74-99 [facility] Comment on above: Order Comment: Christiano cardozo Type: BLOOD SPECIMEN Ordering Facility: [facility] Address: [address] [place] [address] Result Comment: The [place] Diabetes Association (ADA) provides guidance for cutoff values for fasting glucose and random glucose. The ADA defines fasting as no caloric intake for at least 8 hours. Fasting plasma glucose results between 100 to 125 mg/dL indicate increased risk for diabetes (prediabetes). Fasting plasma glucose results greater than or equal to 126 mg/dL meet the criteria for diagnosis of diabetes. In the absence of unequivocal hyperglycemia, results should be confirmed by repeat testing. In a patient with classic symptoms of hyperglycemia or hyperglycemic crisis, random plasma glucose results greater than or equal to 200 mg/dL meet the criteria for diagnosis of diabetes. Reference: Standards of Medical Care in Diabetes 2016, [place] Diabetes Association. Diabetes Care. 2016.39(Suppl 1). Performed By: #### 5 7021-8 #### [facility] CLIA [id number] [address] [place] [address] [place] Potassium [Moles/Vol] 4.0 mmol/L Normal 3.7-5.1 [facility] Comment on above: Order Comment: Christiano cardozo Type: BLOOD SPECIMEN Ordering Facility: [facility] Address: [address] [place] [address] Performed By: #### 5 7021-8 #### [facility] IA [id number] [address] [place] [address] [place] Protein [Mass/Vol] 6.2 g/dL Low 6.3-8.0 [facility] Comment on above: Order Comment: Speci men Type: BLOOD SPECIMEN Ordering Facility: [facility] Address: [address] [place] [address] Performed By: #### 5 7021-8 #### [facility] IA [id number] [address] [place] [address] [place] Sodium [Moles/Vol] 142 mmol/L Normal 136-144 [facility] Comment on above: Order Comment: Speci men Type: BLOOD SPECIMEN Ordering Facility: [facility] Address: [address] [place] [address] Performed By: #### 5 7021-8 #### [facility] IA [id number] [address] [place] [address] [place] Urea nitrogen [Mass/Vol] 9 mg/dL Normal 7-21 [facility] Comment on above: Order Comment: Speci men Type: BLOOD SPECIMEN Ordering Facility: [facility] Address: [address] [place] [address] Performed By: #### 5 7021-8 #### [facility] IA [id number] [address] [place] [address] [place] ECG COMPLETEon 11-06-2024 ECG COMPLETE Ventricular Rate : 7 5 BPM Atrial Rate : 75 BPM P-R Interval : 148 ms QRS Duration : 98 ms Q-T Interval : 406 ms QTC Calculation(Bazett) : 453 ms Calculated P [place] : 39 degrees Calculated R [place] : 40 degrees Calculated T [place] : 40 degrees NORMAL SINUS RHYTHM NORMAL ECG Confirmed by MD YAZ, PhD, BATSHEVA ([id number]) on 11/13/2024 11:14:22 AM NAME : TIFFANI ALLISON PID : [id number] : 1985 Gender : Female Race : ORD : [id number] Procedure Date : Nov 06 2024 09:44:52 Edit Date : Nov 13 2024 11:14:24 Diagnosis: NORMAL SINUS RHYTHM NORMAL ECG Confirmed by MD YAZ, PhD, BATSHEVA ([id number]) on 11/13/2024 11:14:22 AM Test Reason : Location : 119 : A17 Overread By : MD YAZ, PhD,BATSHEVA Edited By : MD YAZ, PhD,BATSHEVA Referred By : GINGER SILVEIRA Acquired by : ELIECER WEBB [facility] Eosinophils/100 WBC Auto (Bl d)on 11-06-2024 Eosinophils/100 WBC (Bld) Automated eosinophil % [facility] Erythrocyte distribution wid th Auto (RBC) [Ratio]on 11-06-2024 Erythrocyte distribution width (RBC) [Ratio] Erythrocyte distribution width [Ratio] by Automated count 11.5-15.0 [facility] HISTORY PHYSICALon HISTORY PHYSICAL HNO ID: [id number] Author: LACHELLE BANEGAS PA-C Service: ? Author Type: Physician Superintendent Meters Type: H&P Filed: 11/07/2024 15:19 Note Text: [facility] HISTORY AND PHYSICAL EXAMINATION SERVICE DATE: 11/06/2024 SERVICE TIME: 10:41 AM PRIMARY CARE PHYSICIAN: Elisabeth Beckman NP Assessment Patient has the following medical conditions which may affect danielle-operative course: Hypertension Stable, complaint on AMLODIPINE 10 MG TABLET Take 10 mg by mouth. METOPROLOL SUCCINATE ER 100 MG TABLET,EXTENDED RELEASE 24 HR Take 100 mg by mouth. Follows with PCP. Last 3 Encounter BP Readings: Date: BP: 11/06/2024 139/88 04/24/2024 144/82 04/16/2024 149/79 GERD (gastroesophageal reflux disease) Symptoms controlled with PPI Hypothyroidism Stable on Synthroid Inappropriate sinus tachycardia (HCC) Managed with metoprolol Iron deficiency anemia Hemoglobin (g/dL) Date Value 11/06/2024 14.5 Hematocrit (%) Date Value 11/06/2024 43.4 WBC (k/uL) Date Value 11/06/2024 11.25 Stable Insulin resistance Managed with Metformin Psoriatic arthritis (HCC) Managed with NSAIDS Class 3 severe obesity without serious comorbidity with body mass index (BMI) of 40.0 to 44.9 in adult (HCC) Body mass index is 45.52 kg/m?. ANESTHESIA FINDINGS: Intubation History: No abnormal airway history Significant Anesthesia Considerations: potential postop nausea/vomiting Airway History: No abnormal airway history Alberto Activity Status Index: METS: Walk indoors, such as around the house (1.75 METs) Do light work around the house, such as dusting or washing dishes (2.70 METs) Take care of self; that is eating, dressing, bathing, using the toilet (2.75 METs) Walk a block or two on level ground (2.75 METs) Do moderate work around the house, such as vacuuming, sweeping floors, or carrying in groceries (3.50 METs) Do yardwork, such as raking leaves, weeding, or pushing a power mower (4.50 METs) Climb a flight of stairs or walk up a hill (5.50 METs) DASI Score: 23.45 Patient denies any chest pain or undue shortness of breath with the above physical activity. STOP-Bang Score: Has or is being treated for high blood pressure BMI greater than 35 kg/m2 Denies snoring loudly Denies feeling tired, fatigued, or sleepy during the daytime Has not been observed to stop breathing or choking/gasping during sleep Patient 50 years old or younger Does not have a large neck Non-male patient STOP-Bang Score: 2 I - PHYSICAL EVALUATION AIRWAY Patient intubated: No. Tracheostomy tube not present Mallampati: III. TM distance: >3 FB. Neck ROM: full ROM without neurological symptoms. Mouth opening: adequate. Short neck: no. Thick neck: no Lip Bite Test: I Microretrognathia/Jr ronagthia/Recessed Chin: No DENTAL Dental findings: teeth intact. Additional comments: +caps. II - ANESTHESIA PLAN Beta Harsh Monitoring Plan Post Procedure Analgesic Plan Prepared for surgery: This patient is optimally prepared for surgery CONSULTS: Patient does not require consults for optimization at this time. The Following Tests/Procedures Have Been Initiated: Labs and EKG per surgical service Planned Anesthetic: Per anesthesia choice REASON FOR VISIT: Tiffani Allison is a 39 year old female who is scheduled for at the request of Dr. Ginger Silveira for consultation. My final recommendation will be communicated back to the requesting physician by way of shared medical record or letter. Subjective CHIEF COMPLAINT: Pre-op exam HPI: Tiffani Allison is a 39 year old female who presents to [facility] for the above procedure. Patient reports history of hiatal hernia. Denies any CP, SOB, fever, chills, n/v/d, or dizziness. Recommended above procedure and elects to proceed. Patient is scheduled for procedure on REVIEW OF SYSTEMS: General: No weight loss, malaise or fevers. Neurological: No history of TIA's, stroke, OFFAL TRIMMER tumor, impaired sensorium, hemiplegia, paraplegia or quadraplegia. No neurological symptoms or problems. Respiratory: No history of current cough or dyspnea, or pneumonia in the past 6 weeks. No history of respiratory/pulmonary symptoms or problems. Cardiovascular: No history of HTN requiring medication, no history of angina, CHF, CO, cardiac surgery or stents. Denies rest pain, gangrene or revascularization/amp utation for PVD. No history of cardiovascular symptoms or problems. GI: +hiatal hernia Positive for: GERD : No history of dysuria, frequency or incontinence, stones or chronic kidney disease. No difficulty urinating, nocturia > 1 time per night or hematuria. Endocrine: No history of diabetes. Has not taken steroids within the past 30 days. No history of endocrinological symptoms or problems. Hematology: No history of bleeding or clotting disorder. Patient is not taking anti-coagulat (more content not included)... Normal [facility] Hematocrit Auto (Bld) [Volum e fraction]on 11-06-2024 Hematocrit (Bld) [Volume fraction] Hematocrit [Volume Fraction] of Blood by Automated count 36.0-46.0 [facility] Hemoglobin [Mass/volume] in Bloodon 11-06-2024 Hemoglobin (Bld) [Mass/Vol] Hemoglobin [Mass/volume] in Blood 11.5-15.5 [facility] INR in Platelet poor plasma by Coagulation assayon 11-06-2024 INR Coag (PPP) [Relative time] INR in Platelet poor plasma by Coagulation assay 0.9-1.3 [facility] Comment on above: Vitamin K Antagonist (VKA) Therapeutic Range: INR 2 to 3 (Target INR of 2.5)Note: For patients treated with VKA drugs, such as warfarin, the [place] [employer]icians 2012 Guideline recommends a therapeutic INR range of 2 to 3 (target INR of 2.5). This recommendation includes high-risk patients with antiphospholipid syndrome with previous arterial or venous thromboembolism, current-generation mechanical or bioprosthetic aortic heart valve replacement.Note: Patients with mechanical aortic valve replacement and additional risk factors for thromboembolic events (atrial fibrillation, previous thromboembolism, LV dysfunction, hypercoagulable conditions) or an older generation mechanical AVR (i.e., ball in-Cage) or any mechanical MVR should have a INR therapeutic range of 2.5 to 3.5 (target INR of 3).Uvaldo GH, et al. Chest 2012, 141:7S-47SNishimhenrry RA, et al. [facility] 2017, 70: 252-289 Laboratory - Chemistry and C hemistry - challengeon 11-06-2024 Albumin [Mass/Vol] 4.1 g/dL 3.9-4.9 [facility] ALP [Catalytic activity/Vol] 69 U/L 34-123 [facility] ALT [Catalytic activity/Vol] 36 U/L 7-38 [facility] AST [Catalytic activity/Vol] 23 U/L 13-35 [facility] Bilirubin [Mass/Vol] 0.5 mg/dL 0.2-1.3 [facility] Calcium [Mass/Vol] 9.0 mg/dL 8.5-10.2 [facility] Chloride [Moles/Vol] 104 mmol/L 98-107 [facility] CO2 [Moles/Vol] 26 mmol/L 22-30 [facility] Creatinine [Mass/Vol] 0.67 mg/dL 0.58-0.96 [facility] Glucose [Mass/Vol] 130 mg/dL High 74-99 [facility] Comment on above: The [place] Diabete s Association (ADA) provides guidance for cutoff values for fasting glucose and random glucose. The ADA defines fasting as no caloric intake for at least 8 hours. Fasting plasma glucose results between 100 to 125 mg/dL indicate increased risk for diabetes (prediabetes).Fasting plasma glucose results greater than or equal to 126 mg/dL meet the criteria for diagnosis of diabetes. In the absence of unequivocal hyperglycemia, results should be confirmed by repeat testing. In a patient with classic symptoms of hyperglycemia or hyperglycemic crisis, random plasma glucose results greater than or equal to 200 mg/dL meet the criteria for diagnosis of diabetes.Reference: Standards of Medical Care in Diabetes 2016, [place] Diabetes Association. Diabetes Care. 2016.39(Suppl 1). Potassium [Moles/Vol] 4.0 mmol/L 3.7-5.1 [facility] Sodium [Moles/Vol] 142 mmol/L 136-144 [facility] Urea nitrogen [Mass/Vol] 9 mg/dL 7- [facility] Laboratory - Hematology and Cell countson 11-06-2024 Eosinophils (Bld) [#/Vol] 0.12 10*3/uL <0.46 [facility] Immature granulocytes (Bld) [#/Vol] 0.04 10*3/uL <0.10 [facility] Immature granulocytes/100 WBC (Bld) 0.4 % [facility] Leukocytes [#/volume] correc elissa for nucleated erythrocytes in Blood by Automated counon 11-06-2024 WBC corrected for nucl RBC Auto (Bld) [#/Vol] Leukocytes [#/volume] corrected for nucleated erythrocytes in Blood by Automated coun High 3.70-11.00 [facility] Lymphocytes Auto (Bld) [#/Vo l]on 11-06-2024 Lymphocytes (Bld) [#/Vol] Lymphocytes [#/volume] in Blood by Automated count 1.00-4.00 [facility] Lymphocytes/100 WBC Auto (Bl d)on 11-06-2024 Lymphocytes/100 WBC (Bld) Lymphocytes/100 leukocytes in Blood by Automated count [facility] MCH Auto (RBC) [Entitic mass ]on 11-06-2024 MCH (RBC) [Entitic mass] MCH [Entitic mass] by Automated count 26.0-34.0 [facility] MCHC Auto (RBC) [Mass/Vol]on 11-06-2024 MCHC (RBC) [Mass/Vol] MCHC [Mass/volume] by Automated count 30.5-36.0 [facility] MCV Auto (RBC) [Entitic vol] on 11-06-2024 MCV (RBC) [Entitic vol] MCV [Entitic volume] by Automated count 80.0-100.0 [facility] Monocytes Auto (Bld) [#/Vol] on 11-06-2024 Monocytes (Bld) [#/Vol] Automated blood monocyte count <0.87 [facility] Monocytes/100 WBC Auto (Bld) on 11-06-2024 Monocytes/100 WBC (Bld) Automated monocyte % [facility] Neutrophils Auto (Bld) [#/Vo l]on 11-06-2024 Neutrophils (Bld) [#/Vol] Neutrophils [#/volume] in Blood by Automated count High 1.45-7.50 [facility] Neutrophils/100 WBC Auto (Bl d)on 11-06-2024 Neutrophils/100 WBC (Bld) Automated neutrophil % [facility] No Panel Informationon 11-06 Estimated GFR (CKD-EPI) 115 mL/min/1.73m??? >=60 [facility] Comment on above: Estimated Glomerular Filtration Rate (eGFR) is calculated using the 2020 CKD-EPI creatinine equation. This equation utilizes serum creatinine, sex, and age as parameters. The creatinine assay has traceable calibration to isotope dilution-mass spectrometry. Refer to KDIGO guidelines for clinical interpretation. In patients with unstable renal function, e.g. those with acute kidney injury, the eGFR may not accurately reflect actual GFR. Nucleated RBC Auto (Bld) [#/ Vol]on 11-06-2024 Nucleated RBC (Bld) [#/Vol] Nucleated erythrocytes [#/volume] in Blood by Automated count <0.01 [facility] Nucleated erythrocytes [Pres ence] in Blood by Automated counton 11-06-2024 Nucleated RBC Auto Ql (Bld) Nucleated erythrocytes [Presence] in Blood by Automated count [facility] PT panel Coag (PPP)on 2024 INR Coag (PPP) [Relative time] 1.0 {INR} Normal 0.9-1.3 [facility] Comment on above: Order Comment: Speci men Type: BLOOD SPECIMENOrdering Facility: [facility] Address: [address] [place] [address] Result Comment: Li min K Antagonist (VKA) Therapeutic Range: INR 2 to 3 (Target INR of 2.5) Note: For patients treated with VKA drugs, such as warfarin, the [place] [employer] 2012 Guideline recommends a therapeutic INR range of 2 to 3 (target INR of 2.5). This recommendation includes high-risk patients with antiphospholipid syndrome with previous arterial or venous thromboembolism, current-generation mechanical or bioprosthetic aortic heart valve replacement. Note: Patients with mechanical aortic valve replacement and additional risk factors for thromboembolic events (atrial fibrillation, previous thromboembolism, LV dysfunction, hypercoagulable conditions) or an older generation mechanical AVR (i.e., ball in-Cage) or any mechanical MVR should have a INR therapeutic range of 2.5 to 3.5 (target INR of 3). Uvaldo GH, et al. Chest 2012, 141:7S-47S Sosa RA, et al. [facility] 2017, 70: 252-289 Performed By: #### 3 4528-0, 80494-7 ####[facility] [id number] [place] [address] [place] PT Coag (PPP) [Time] 10.9 s Normal 9.7-13.0 [facility] Comment on above: Order Comment: Speci men Type: BLOOD SPECIMENOrdering Facility: [facility] Address: [address] [place] [address] Performed By: #### 3 4528-0, 11085-0 ####[facility] [id number] [place] [address] [place] Platelet mean volume Auto (B ld) [Entitic vol]on 11-06-2024 Platelet mean volume (Bld) [Entitic vol] Platelet mean volume [Entitic volume] in Blood by Automated count 9.0-12.7 [facility] Platelets Auto (Bld) [#/Vol] on 11-06-2024 Platelets (Bld) [#/Vol] Platelets [#/volume] in Blood by Automated count 150-400 [facility] Protein [Mass/volume] in Ser um or Plasmaon 11-06-2024 Protein [Mass/Vol] Protein [Mass/volume ] in Serum or Plasma Low 6.3-8.0 [facility] Prothrombin time (PT)on PT Coag (PPP) [Time] Prothrombin time (PT) 9.7- 13.0 [facility] RBC Auto (Bld) [#/Vol]on RBC (Bld) [#/Vol] Erythrocytes [#/volume] in Blood by Automated count 3.90-5.20 [facility] Serum or plasma anion gap de terminationon 11-06-2024 Anion gap [Moles/Vol] Serum or plasma an ion gap determination 03-15 [facility] TYPE AND SCREEN,30 DAYon ABO A Normal [facility] Comment on above: Order Comment: Speci men Type: BLOOD SPECIMENOrdering Facility: [facility] Address: [address] [place] [address] Performed By: #### T SCR30 ####[facility] BLO[facility] BANKCLIA [id number] [place] [address] [place] Rh Nom (Bld) Negative Normal [facility] Comment on above: Order Comment: Speci men Type: BLOOD SPECIMENOrdering Facility: [facility] Address: [address] [place] [address] Performed By: #### T SCR30 ####[facility] BLOOD BANKIA [id number] [place] [address] [place] aPTT PPPon 11-06-2024 aPTT Coag (PPP) [Time] 24.4 s Normal 23.0-32.4 [facility] Comment on above: Order Comment: Speci men Type: BLOOD SPECIMENOrdering Facility: [facility] Address: [address] [place] [address] Performed By: #### 3 4528-0, 66525-2 ####[facility] [id number] [place] [address] [place] CNCOon 09-21-2024 CNCO Letter Text Normal [facility] CNPNon 09-12-2024 CNPN Telephone (GENBMI) ESTEFANYDHARATIFFANI ([id number]) 1985 F Date Time Provider Department 09/12/24 KRISTI WATTS [facility] During your visit today, we recorded the following information about you: Kristi Watts, RN 09/12/2024 12:55 PM Signed BMI SPECIALTY CARE COORDINATION TELEPHONE ENCOUNTER I spoke to pt about what is needed (EKG and LABS) to submit to insurance.Pt is working on that today. Allergies As of Date: 09/12/2024 Noted Allergy Reaction PENICILLINS 10/26/2022 10 - Anaphylaxis 3 - Cough 4 - Hives 9 - Itching 2 - Rash 12 - Shortness of Breath 7 - Swelling 16 - Unknown Comments: Other Reaction(s): throat swelling and hives TOPIRAMATE 01/04/2023 5 - Intolerance Comments: Other Reaction(s): seizures Date Reviewed: 06/07/2024 Reviewed by: Lala Zuniga RD - Fully Assessed Reason for Visit: Results [95] Prescriptions as of 09/12/2024 - acetaminophen 325 mg cap Take 650 mg by mouth every 6 hours as needed. - amLODIPine (NORVASC) 10 mg tablet Take 10 mg by mouth. - amLODIPine-Atorvastat in 10-10 mg per tablet - aspirin, enteric [...] each day at the same time - oxyCODONE-acetaminoph en (PERCOCET) 5-325 mg tablet Take 1 tablet by mouth q 6 HR. - sertraline (ZOLOFT) 100 mg tablet Take 100 mg by mouth. - vit B-comp w-Fe,Ca,FA<1mg (IRON-VITAMINS ORAL) Problem List As Of Date: 09/12/2024 (None) Encounter Status:Closed by KRISTI WATTS on 09/12/24 Normal [facility] NICOTINE AND METAB, URon URIN ANABASINE QUANT <5 Normal [facility] Comment on above: Order Comment: Speci men Type: URINE SPECIMEN Ordering Facility: [facility] Address: [address] [place] [address] Performed By: #### U NICOT #### [facility] CLIA [id number] [address] [place] [address] URIN COTININE QUANT <15 Normal [facility] Comment on above: Order Comment: Speci men Type: URINE SPECIMEN Ordering Facility: [facility] Address: [address] [place] [address] Performed By: #### U NICOT #### [facility] CLIA [id number] [address] [place] [address] URIN NICOTINE QUANT <15 Normal [facility] Comment on above: Order Comment: Speci men Type: URINE SPECIMEN Ordering Facility: [facility] Address: [address] [place] [address] Result Comment: INTE RPRETIVE INFORMATION: Nicotine and Metabolites, Urine, Quantitative Methodology: Quantitative Liquid Chromatography-Tandem Mass Spectrometry Positive cutoff: Nicotine 15 ng/mL Cotinine 15 ng/mL 4-HC-Lqjvailm 50 ng/mL Anabasine 5 ng/mL For medical [...] developed and its performance characteristics determined by [employer] It has not been cleared or approved by the US Food and Drug Administration. This test was performed in a CLIA certified laboratory and is intended for clinical purposes. Performed By: [facility] [address] [place] [address] Bobbin Winder: Kulwinder Wilson MD, PhD CLIA Number: [id number] Performed By: #### U NICOT #### [facility] CLIA [id number] [address] [place] [address] URINE 3 [place] COTININE <50 Normal [facility] Comment on above: Order Comment: Speci men Type: URINE SPECIMEN Ordering Facility: [facility] Address: [address] [place] [address] Performed By: #### U NICOT #### [facility] CLIA [id number] [address] [place] [address] Cedric 08-22-2024 BRANDONN Telephone (ENDPTW) TIFFANI ALLISON ([id number]) 1985 F Date Time Provider Department 08/22/24 SHARON HELM During your visit today, we recorded the following information about you: Allergies As of Date: 08/22/2024 Noted Allergy Reaction PENICILLINS 10/26/2022 10 - Anaphylaxis 3 - Cough 4 - Hives 9 - Itching 2 - Rash 12 - Shortness of Breath 7 - Swelling 16 - Unknown Comments: Other Reaction(s): throat swelling and hives TOPIRAMATE 01/04/2023 5 - Intolerance Comments: Other Reaction(s): seizures Date Reviewed: 06/07/2024 Reviewed by: Lala Zuniga RD - Fully Assessed Reason for Visit: Patient Update [1234] Prescriptions as of 08/22/2024 - acetaminophen 325 mg cap Take 650 mg by mouth every 6 hours as needed. - amLODIPine (NORVASC) 10 mg tablet Take 10 mg by mouth. - amLODIPine-Atorvastat in 10-10 mg per tablet - aspirin, enteric [...] each day at the same time - oxyCODONE-acetaminoph en (PERCOCET) 5-325 mg tablet Take 1 tablet by mouth q 6 HR. - sertraline (ZOLOFT) 100 mg tablet Take 100 mg by mouth. - vit B-comp w-Fe,Ca,FA<1mg (IRON-VITAMINS ORAL) Problem List As Of Date: 08/22/2024 (None) Encounter Status:Closed by SHARON HELM on 08/22/24 Normal [facility] XR Ankle - right 3 Viewson 0 08-17-2024 Imaging Result: AP lateral and oblique of the right ankle taken in the office today demonstrating no significant collapse or osteochondral defect ankle mortise well-preserved no bony tumor or fracture seen. Pending sale to [facility] Study observation (narrative) [facility] HbA1c HPLC (Bld) [Mass fract ion]on 08-15-2024 HbA1c (Bld) [Mass fraction] Hemoglobin A1c/Hemoglobin.total in Blood by HPLC [facility] POLYSOMNOGRAM (PSG)/HOME SLE EP APNEA TEST (HSAT)on 07-31-2024 POLYSOMNOGRAM (PSG)/HOME SLEEP APNEA TEST (HSAT) [facility] at [address], [address], [place] [address] ; Home Sleep Apnea Test (HSAT) Study Report Name: TIFFANI ALLISON Date of Study: 07/31/2024 [facility]#: [id number] Age: 38 (: 1985) ESS: 02/21 Neck [...] unattended Type III, minimum of 4 parameters (55615) Procedure: This study was performed using a Type III ambulatory PSG device and was unattended. The patient was instructed on proper use of the device by a registered medical lab technologist. The monitored parameters included heart rate, [...] Primary Snoring [R06.83] Sleep Disorder, Unspecified [G47.9] IMPRESSION/RECOMMENDA TIONS: 1. This study confirms a diagnosis of [...] of stroke. INTERPRETING PHYSICIAN: Erik Cutler MD [facility] I attest that I have performed epoch by epoch review of the entire raw data and find this study to be technically adequate. Report Digitally Signed By: ERIK CUTLER MD (08/09/2024 12:59:35 PM) Normal [facility] MR ANKLE RIGHT WO IV CONTRAS [...] BY: Delbert Thakkar MD Normal Not Available [facility] US LOWER EXTREMITY VENO US DUPLEX RIGHTon 06-21-2024 [facility] US LOWER EXTREMITY VENOUS DUPLEX RIGHT Exam: VAS US LOWER EXTREMITY VENOUS DUPLEX RIGHT Clinical [...] METAB, URon URIN ANABASINE QUANT <5 Normal [facility] Comment on above: Order Comment: Speci men Type: BLOOD SPECIMEN Ordering Facility: [facility] Address: [address] [place] [address] Performed By: #### 2 4321-2, 2777-1, #### [facility] CLIA [id number] [address] [place] [address] STATES OF [facility] URIN COTININE QUANT <15 Normal [facility] Comment on above: Order Comment: Speci men Type: BLOOD SPECIMEN Ordering Facility: [facility] Address: [address] [place] [address] Performed By: #### 2 4321-2, 2777, #### [facility] CLIA [id number] [address] [place] [address] STATES OF [place] URIN NICOTINE QUANT <15 Normal [facility] Comment on above: Order Comment: Speci men Type: BLOOD SPECIMEN Ordering Facility: [facility] Address: [address] [place] [address] Result Comment: INTE RPRETIVE INFORMATION: Nicotine and Metabolites, Urine, Quantitative Methodology: Quantitative Liquid Chromatography-Tandem Mass Spectrometry Positive cutoff: Nicotine 15 ng/mL Cotinine 15 ng/mL 1-MO-Ynsmrayj 50 ng/mL Anabasine 5 ng/mL For medical [...] developed and its performance characteristics determined by [employer] It has not been cleared or approved by the US Food and Drug Administration. This test was performed in a CLIA certified laboratory and is intended for clinical purposes. Performed By: [employer] [address] [place] [id number] Bobbin Winder: Kulwinder Wilson MD, PhD CLIA Number: [id number] Performed By: #### 2 4321-2, 2777-1, 84572-8 #### [facility] CLIA [id number] [address] [place] [address] [place] URINE 3 [place] COTININE <50 Normal [facility] Comment on above: Order Comment: Speci men Type: BLOOD SPECIMEN Ordering Facility: [facility] Address: [address] [place] [address] Performed By: #### 2 4321-2, 2777-1, #### [facility] CLIA [id number] [address] [place] [address] [place] XR CHEST 2V FRONTAL/LATon XR CHEST 2V [...] tissues: Unremarkable. IMPRESSION: No acute radiographic abnormality. Crosscutter: LEWIS Transcribe Date/Time: Jun 15 2024 12:32P Dictated by : SUZIE RICARDO MD This examination was interpreted and the report reviewed and electronically signed by: SUZIE RICARDO MD on Jun 15 2024 12:32PM EST [id number] Normal [facility] XR Chest PA and Lateralon IMPRESSION: No acute radiographic abnormality. Crosscutter: PSCB Transcribe Date/Time: Jun 15 2024 12:32P [...] soft tissues: Unremarkable. DIVISION OF RADIOLOGY Provider, [facility] - 06/15/2024 * * *Final Report* * [...] Unremarkable. IMPRESSION IMPRESSION: No acute radiographic abnormality. Crosscutter: LEWIS Transcribe Date/Time: Jun 15 2024 12:32P Dictated by : SUZIE RICARDO MD This examination was interpreted and the report reviewed and electronically signed by: SUZIE RICARDO MD on Jun 15 2024 12:32PM EST [facility] Radiology Study observation (narrative) [facility] XR Chest PA and LateralOrder ed By: Ccf Provider on 06-15-2024 [facility] CNPNon 05-17-2024 CNPN Telephone (GENBMI) TIFFANI ALLISON ([id number]) 1985 F Date Time Provider Department 05/17/24 RKISTI WATTS During your visit today, we recorded the following information about you: Kristi Watts RN 05/17/2024 10:18 AM Signed [facility] COORDINATION TELEPHONE ENCOUNTER LVM with [...] tablet Take 10 mg by mouth. - amLODIPine-Atorvastat in 10-10 mg per tablet - aspirin, enteric [...] each day at the same time - oxyCODONE-acetaminoph en (PERCOCET) 5-325 mg tablet Take 1 tablet by mouth q 6 HR. - sertraline (ZOLOFT) 100 mg tablet Take 100 mg by mouth. - vit B-comp w-Fe,Ca,FA<1mg (IRON-VITAMINS ORAL) Problem List As Of Date: 05/17/2024 (None) Encounter Status:Closed by KRISTI WATTS on 05/17/24 Normal [facility] FPG ECG *CARDIOLOGY ONLY*on 05-10-2024 FPG ECG *CARDIOLOGY ONLY* [facility] [place] [address] Electrocardiograph Report Signed Patient: Tiffani Allison MR#: [id number] : 1985 Acct:[id number] Age/Sex: 38 / F ADM Date: 05/10/24 Loc: EKGCARDIO Room: Type: [facility] Attending Dr: Felipe Quiñones MD Ordering Provider: [...] previous ECGs available Confirmed by Felipe Quiñones ([id number]) on 05/12/2024 10:56:03 AM Referred By: Electronically Signed By: Felipe Quiñones Transcribed By: MUS Signed By Felipe Quiñones MD 05/12/24 1056 Normal [facility] CNOVon 04-24-2024 CNOV Office Visit (GENBMI ) TIFFANI ALLISON ([id number]) 1985 F Date Time Provider Department 04/24/24 [...] mg tablet Take 10 mg by mouth. amLODIPine-Atorvastat in 10-10 mg per tablet aspirin, enteric coated [...] clindamycin (THU (more content not included)... Normal [facility] Cedric 04-18-2024 BRANDONN Telephone ([facility] TIFFANI [id number]) 1985 F Date Time Provider Department 04/18/24 KRISTI WATTS During your visit today, we recorded the following information about you: Kristi Watts RN 04/18/2024 10:18 AM Signed [facility] COORDINATION TELEPHONE ENCOUNTER LVM with [...] tablet Take 10 mg by mouth. - amLODIPine-Atorvastat in 10-10 mg per tablet - aspirin, enteric [...] each day at the same time - oxyCODONE-acetaminoph en (PERCOCET) 5-325 mg tablet Take 1 tablet by mouth q 6 HR. - sertraline (ZOLOFT) 100 mg tablet Take 100 mg by mouth. - vit B-comp w-Fe,Ca,FA<1mg (IRON-VITAMINS ORAL) Problem List As Of Date: 04/18/2024 (None) Encounter Status:Closed by KRISTI WATTS on 04/18/24 [facility] CNOVyeni 04-16-2024 CNOV Office Visit (GENALIYAHN ) TIFFANI ALLISON ([id number]) 1985 F Date Time Provider Department 04/16/24 2:30 PM ROCIO JEFF During your visit today, we recorded the following information about you: Temperature Pulse Blood pressure Weight 97.7 degrees 72/minute 149/79 136.1 kg Height 1.778 m Sudarshan Russell MA 04/16/2024 2:39 PM Signed What is the reason for your visit today? Consult Who is your referring physician? Dr. Jeff Are you having poor oral intake? NO Have you had unintentional weight loss of 15 lbs/7 Kg in the last 3-6 months? NO Bowels: regular Wound: clean AND dry Temperature: No Drains: No Ran Padron 04/23/2024 8:59 AM Signed [facility] Abdominal Core Health - HISTORY AND PHYSICAL Chief Complaint: Hypogastric ventral hernia and hiatal hernia HPI: Tiffani Allison is a 38 year old female who presents with 2 month history of symptomatic hypogastric ventral hernia. Pt first noticed a bulge in the shower and is has been persistently tender since, grown 3x in size, hurts worse when coughing/sneezing/str aining/bending over/picking up her children. She also reports [...] time each day at the same time oxyCODONE-acetaminoph en (PERCOCET) 5-325 mg tablet Take 1 tablet by mouth q 6 HR. sertraline (ZOLOFT) 100 mg tablet Take 100 mg by mouth. acetaminophen 325 mg cap Take 650 mg by mouth every 6 hours as needed. amLODIPine-Atorvastat in 10-10 mg per tablet ferrous sulfate 325 [...] this patient (more content not included)... Normal [facility] 04-11-2024 CNPN Telephone (GENSMN) TIFFANI ALLISON ([id number]) 1985 F Date Time Provider Department 04/11/24 HILDA KITCHEN During your visit today, we recorded the following information about you: Hilda Kitchen LPN 04/11/2024 4:18 PM Signed Contacted patient, verified name and . Advised of the following Abdominal Surgeries performed and patient had Imaging performed from [facility] 03/29/24 and to bring Imaging with her to appointment. 2018--Gastric Bypass ( [facility], [place], [place]) 2017--Appendectomy ([place], [place]; [facility]) Advised patient will contact to obtain Operative Reports and patient to be sent Arden Reed Message to contact if any needs or concerns arise, patient acknowledged and verbalized understanding. SANDRITA Luciano Claudine, LPN 04/13/2024 11:39 AM Signed Contacted [facility] for patient's Lap Vertical Gastric Sleeve performed in 2018, no answer to HIM Dept and message left to contact this service writer advisor back. Contacted [facility], [facility] Department. Spoke with Ashley and advised to send fax request to , fax receipt confirmation @ 11:38 am, will monitor for reports for Lap Appy- 2017 Hilda Kitchen LPN Allergies As of Date: 04/11/2024 (Not on File) Date Reviewed: Never Reviewed Problem List As Of Date: 04/11/2024 (None) Encounter Status:Closed by HILDA KITCHEN on 04/11/24 Normal [facility] Ambulatory Visit Summaryon 0 03-13-2024 Ambulatory Visit Summary Ambulatory Visit Summary TIFFANI ALLISON :1985 Visit Date:03/13/2024 Ambulatory Visit Instructions Your Diagnosis Vapes nicotine containing substance Your Care Team Attending Physician - King LI MD Primary Care Physician - ELISABETH BECKMAN CNP Referring Physician - KARUNA TAYLOR, ELISABETH Sears This Is Your Medications [...] you for choosing us for your care. Normal [facility] Arturo 12-12-2023 L Specimen: [id number] Received: 12/13/23 Status: KENISHA Jerry Num: [id number] Spec Type: Surgical Subm Dr: Adrina Kerr Tissues: A Placenta - 3rd Trimester (Greater than 28 weeks) (PLACENTA) B Fallopian Tube - Sterilization (FT BILATERAL) Procedures: HE/5, Gross/Micro L5, Gross/Micro L2 Age/ Patient Sex Location Account Attending Physician Tiffani Allison 38/F LABE[facility] [id number] Adrian Kerr SPEC NUM: [id number] RECD: 12/13/23 STATUS: KENISHA JERRY NUM: [id number] RODERICK: 12/12/[address]: Adrian Kerr ENTERED: 12/13/[address] [facility] DR: Jamin,Lab SPEC TYPE: Surgical DEPT: [place] PORTILLO ORDERED: [...] membranes and cord, has a trimmed weight -------- Specimen: [id number] Received: 12/13/23 Status: KENISHA Tavon Num: [id number] Spec Type: Surgical Subm Dr: Adrian Kerr Tissues: A Placenta - 3rd Trimester (Greater than 28 weeks) (PLACENTA) B Fallopian Tube - Sterilization (FT BILATERAL) Procedures: DANNY/Sheldon, Gross/Micro L5, Gross/Micro L2 -------- Patient: Tiffani Allison [id number] (Continued) -------- Specimen: [id number] Received: 12/13/23 (Continued) Gross Description (Continued) Signed (signature on file) Antonio Ahumada MD 12/14/23 1545 -------- Specimen: [id number] Received: 12/13/23 Status: ANALauren Jerry Num: [id number] Spec Type: Surgical Subm Dr: Adrian Kerr Tissues: A Placenta - 3rd Trimester (Greater than 28 weeks) (PLACENTA) B Fallopian Tube - Sterilization (FT BILATERAL) Procedures: HE/5, Gross/Micro L5, Gross/Micro L2 -------- Patient: Tiffani Allison [id number] (Continued) -------- Specimen: [id number] Received: 12/13/23 (Continued) Gross Description (Continued) of [...] luminal centers lined by unremarkable burnham mucosa. Rn Private Duty sections are submitted in A1 (tube #1) and A2 (tube #2). Clinical history: Previous . , 4, 7, 9, gestational age 37 weeks, small baby CPT Codes 19697 [id number] -------- -------- Specimen: [id number] Received: 12/13/23 Status: KENISHA Jerry Num: [id number] Spec Type: Surgical Subm Dr: Adrian Kerr Tissues: A Placenta - 3rd Trimes (more content not included)... Normal [facility] Urinalysis macro (dipstick) panel (U)on 09-15-2023 Bilirubin, UA Negative Negative - 4(70) +++ mg/dL [facility] Blood, UA Negative Negative - 50 Maikol/mcL [facility] Clarity, UA Clear [facility] Color, UA Yellow [facility] Glucose, UA Negative Negative - 1999(110) ++++ mg/dL [facility] Interpretation and review of laboratory results Abnormal [facility] Ketones, UA Negative Negative - 160(16) ++++ mg/dL [facility] Leukocytes, UA Negative Negative - 500+++ Endy/mcL [facility] Nitrite, UA Negative Negative - Positive [facility] pH, UA 6.0 5 - 9 [facility] Protein, UA Trace Negative - 1999(20) ++++ mg/dL [facility] Spec Grav, UA 1.025 1 - 1.03 [facility] Urobilinogen, UA 0.2 0.2 - 12 mg/dL [facility] Reminderson 08-05-2023 Reminders - From: Ewa Valentin To: EU - Recalls Aram; Sent: 01/26/2023 10:51:29 EDT Show up: 06/28/2023 09:51:00 EST Subject: Reminder Message Due Date/Time: 07/28/2023 09:51:00 EST Call pt to schedule a KUB and YAMILETH Called pt and left VM to return our call From: Ana Sherwood ( - s Aram) To: Alyson Chiu MD; Sent: 07/11/2023 13:04:24 EST Show up: 07/11/2023 13:03:00 EST Subject: RE: Reminder Message Called pt and she states that she is 15 weeks and was wondering if imaging is still safe. Please advise. From: Alyson Chiu MD To: EU - [...] problems. From: Ana Sherwood (EU - Recalls Lue) To: Alyson Chiu MD; Sent: 08/04/2023 11:10:53 EST Show up: 08/04/2023 11:10:00 EST Subject: RE: Reminder Message Does pt need tracked? From: Alyson Chiu MD To: EU - Recalls Lue; Sent: 08/05/2023 09:02:01 EST Show up: 08/05/2023 09:01:00 EST Subject: RE: Reminder Message No Normal [facility] Free Cell DNAon 2022 [facility] HCG ( test) IA.gamai d Ql (U)Ordered By: Denys Gallego on 03-15-2023 HCG ( test) Ql (U) Negative [facility] CBC AUTO DIFFon 12-28-2022 BASO # 0.0 103/ul Normal 0.0-0.1 [facility] Comment on above: Performed By: #### F ERR, FETIBC #### [facility] [address] [place] [address] Dr. Michele Obrien Basophils/100 WBC (Bld) 0.5 % Normal 0.2-2.0 [facility] Comment on above: Performed By: #### F ERR, FETIBC #### [facility] [address] [address] [address] Michele Obrien EO # 0.2 103/ul Normal 0.0-0.7 [facility] Comment on above: Performed By: #### F ERR, FETIBC #### [facility] [address] [address] [address] Michele Obrien Eosinophils/100 WBC (Bld) 2.6 % Normal 0.9-7.0 [facility] Comment on above: Performed By: #### F ERR, FETIBC #### [facility] [address] [address] [address] Michele Obrien Erythrocyte distribution width (RBC) [Ratio] 19.1 % Critically high 11.0-15.0 [facility] Comment on above: Performed By: #### F ERR, FETIBC #### [facility] [address] [place] [address] Dr. Michele Obrien Hematocrit (Bld) [Volume fraction] 37.6 % Normal 36.0-48.0 [facility] Comment on above: Performed By: #### F ERR, FETIBC #### [facility] [address] [address] [address] Michele Obrien Hemoglobin (Bld) [Mass/Vol] 11.9 g/dL Critically low 12.0-16.0 [facility] Comment on above: Performed By: #### F ERR, FETIBC #### [facility] [address] [place] [address] Dr. Michele Obrien IG # 0.03 10e3/ul Normal 0.00-0.03 [facility] Comment on above: Performed By: #### F ERR, FETIBC #### [facility] [address] [place] [address] Dr. Michele Obrien IG % 0.3 % Normal 0.0-0.5 [facility] Comment on above: Performed By: #### F ERR, FETIBC #### [facility] [address] [address] [address] Michele Obrien LYMPH # 1.6 103/ul Normal 1.2-3.8 [facility] Comment on above: Performed By: #### F ERR, FETIBC #### [facility] [address] [place] [address] Dr. Michele Obrien Lymphocytes/100 WBC (Bld) 18.4 % Critically low 20.5-60.0 [facility] Comment on above: Performed By: #### F ERR, FETIBC #### [facility] [address] [place] [address] Dr. Michele Obrien MANUAL DIFF REQ NO Normal [facility] Comment on above: Performed By: #### F ERR, FETIBC #### [facility] [address] [address] [address] Michele Obrien MCH (RBC) [Entitic mass] 23.7 pg Critically low 26.7-34.0 [facility] Comment on above: Performed By: #### F ERR, FETIBC #### [facility] [address] [place] [address] Dr. Michele Obrien MCHC (RBC) [Mass/Vol] 31.6 g/dL Normal 29.9-35.2 [facility] Comment on above: Performed By: #### F ERR, FETIBC #### [facility] [address] [place] [address] Dr. Michele Obrien MCV (RBC) [Entitic vol] 74.9 fL Critically low 81.0-99.0 [facility] Comment on above: Performed By: #### F ERR, FETIBC #### [facility] [address] [place] [address] Dr. Michele Obrien MONO # 0.5 103/ul Normal 0.3-0.8 [facility] Comment on above: Performed By: #### F ERR, FETIBC #### [facility] [address] [place] [address] Dr. Michele Obrien Monocytes/100 WBC (Bld) 5.9 % Normal 1.7-12.0 [facility] Comment on above: Performed By: #### F ERR, FETIBC #### [facility] [address] [place] [address] Dr. Michele Obrien NEUT # 6.4 103/ul Normal 1.4-6.5 [facility] Comment on above: Performed By: #### F ERR, FETIBC #### [facility] [address] [place] [address] Dr. Michele Obrien Neutrophils/100 WBC (Bld) 72.3 % Normal 43.0-75.0 [facility] Comment on above: Performed By: #### F ERR, FETIBC #### [facility] [address] [address] [address] Michele Obrien Platelet mean volume (Bld) [Entitic vol] 10.2 fL Normal 9.5-13.5 [facility] Comment on above: Performed By: #### F ERR, FETIBC #### [facility] [address] [address] [address] Michele Obrien PLT 243 103/ul Normal 150-450 [facility] Comment on above: Performed By: #### F ERR, FETIBC #### [facility] [address] [address] [address] Michele Obrien RBC 5.02 106/ul Normal 4.20-5.40 [facility] Comment on above: Performed By: #### F ERR, FETIBC #### [facility] [address] [address] [address] Michele Obrien WBC 8.9 103/ul Normal 4.0-11.0 [facility] Comment on above: Performed By: #### F ERR, FETIBC #### [facility] [address] [address] ABD/PELVIS WO CONon [...] Punctate right UVJ calculus with mild right hydroureteronephrosis . Bowel: Surgical changes from gastric sleeve. Small hiatal hernia. Peritoneum/retroperit oneum: No significant finding. Lymph nodes: No significant finding. Vessels: No significant finding. Body wall: Tiny fat-containing umbilical hernia. Reproductive: IUD in place. Bones: No significant finding. IMPRESSION: Punctate right UVJ calculus with mild right hydroureteronephrosis . Borderline splenomegaly. Small hiatal hernia. Electronically authenticated by: ALEXA WHITE Date: 2022-12-28 02:25 Normal [facility] ER URINE PROFILEon 3 Bilirubin Ql (U) Negative Normal NEGATIVE [facility] Comment on above: Performed By: #### H IV12 #### [facility] [address] [place] [address] Dr. Michele Obrien Clarity (U) CLEAR Normal CLEAR [facility] Comment on above: Performed By: #### H IV12 #### [facility] [address] [address] [address] Michele Obrien Color (U) LT. YELLOW Normal YELLOW [facility] Comment on above: Performed By: #### H IV12 #### [facility] [address] [place] [address] Dr. Michele JACKSON A micrscopic examination will be performed if indicated. Normal [facility] Comment on above: Performed By: #### H IV12 #### [facility] [address] [place] [address] Dr. Michele Obrien Glucose Ql (U) Negative Normal NEGATIVE [facility] Comment on above: Performed By: #### H IV12 #### [facility] [address] [place] [address] Dr. Michele Obrien Hemoglobin Ql (U) MODERATE Abnormal NEGATIVE [facility] Comment on above: Performed By: #### H IV12 #### [facility] [address] [place] [address] Dr. Michele Obrien Ketones Ql (U) Negative Normal NEGATIVE [facility] Comment on above: Performed By: #### H IV12 #### [facility] [address] [place] [address] Dr. Michele Obrien LEUKOCYTES Negative Normal NEGATIVE [facility] Comment on above: Performed By: #### H IV12 #### [facility] [address] [place] [address] Dr. Michele Obrien Nitrite Ql (U) Negative Normal NEGATIVE [facility] Comment on above: Performed By: #### H IV12 #### [facility] [address] [place] [address] Dr. Michele Obrien pH (U) 5.5 [pH] Normal 5-9 [facility] Comment on above: Performed By: #### H IV12 #### [facility] [address] [place] [address] Dr. Michele Obrien SPEC GRAVITY 1.025 Normal 1.005-<=1.025 [facility] Comment on above: Performed By: #### H IV12 #### [facility] [address] [place] [address] Dr. Michele Obrien UA PROTEIN Negative Normal NEGATIVE/ TRACE [facility] Comment on above: Performed By: #### H IV12 #### [facility] [address] [address] [address] Michele Obrien UR MICRO IND INDICATED Normal [facility] Comment on above: Performed By: #### H IV12 #### [facility] [address] [place] [address] Dr. Michele Obrien Urobilinogen Qn (U) 0.2 {Ijeoma'U}/dL Normal 0.2 - 1. 0 [facility] Comment on above: Performed By: #### H IV12 #### [facility] [address] [place] [address] Dr. Michele Obrien PREG HCG QUALon 12-28-2022 , QUAL Negative Normal NEGATIVE [facility] Comment on above: Performed By: #### P REG #### [facility] [address] [place] [address] Dr. Michele Obrien PROF 14(COMP METB)on 023 Albumin [Mass/Vol] 3.4 g/dL Normal 3.4-5.0 [facility] Comment on above: Performed By: #### C MP #### [facility] [address] [place] [address] Dr. Michele Obrien Albumin/Globulin [Mass ratio] 1.1 {ratio} Normal [facility] Comment on above: Performed By: #### C MP #### [facility] [address] [place] [address] Dr. Michele Obrien ALP [Catalytic activity/Vol] 73 U/L Normal 46-116 [facility] Comment on above: Performed By: #### C MP #### [facility] [address] [address] [address] Michele Obrien ALT [Catalytic activity/Vol] 18 U/L Normal 14-59 [facility] Comment on above: Performed By: #### C MP #### [facility] Laboratory [address] [address] [address] Michele Obrien Anion gap [Moles/Vol] 11.9 mmol/L Normal [facility] Comment on above: Performed By: #### C MP #### [facility] [address] [address] [address] Michele Obrien AST [Catalytic activity/Vol] 13 U/L Critically low 15-37 [facility] Comment on above: Performed By: #### C MP #### [facility] [address] [place] [address] Dr. Michele Obrien Bilirubin [Mass/Vol] 0.1 mg/dL Critically low 0.2-1.0 [facility] Comment on above: Performed By: #### C MP #### [facility] [address] [address] [address] Michele Obrien Calcium [Mass/Vol] 8.6 mg/dL Normal 8.5-10.1 [facility] Comment on above: Performed By: #### C MP #### [facility] [address] [place] [address] Dr. Michele Obrien Chloride [Moles/Vol] 105 mmol/L Normal 98-107 [facility] Comment on above: Performed By: #### C MP #### [facility] [address] [address] [address] Michele Obrien CO2 [Moles/Vol] 26.7 mmol/L Normal 21.0-32.0 [facility] Comment on above: Performed By: #### C MP #### [facility] [address] [address] [address] Michele Obrien Creatinine [Mass/Vol] 0.85 mg/dL Normal 0.55-1.02 [facility] Comment on above: Performed By: #### C MP #### [facility] [address] [address] [address] Michele Obrien EGFR-AF KYRGYZ >60 Normal >=60 [facility] Comment on above: Performed By: #### C MP #### [facility] [address] [address] [address] Michele Obrien EGFR-NON AF KYRGYZ >60 Normal >=60 [facility] Comment on above: Performed By: #### C MP #### [facility] [address] [address] [address] Michele Obrien Globulin (S) [Mass/Vol] 3.1 g/dL Normal [facility] Comment on above: Performed By: #### C MP #### [facility] [address] [address] [address] Michele Obrien Glucose [Mass/Vol] 123 mg/dL Critically high 74-106 [facility] Comment on above: Performed By: #### C MP #### [facility] [address] [address] [address] Michele Obrien Potassium [Moles/Vol] 3.6 mmol/L Normal 3.5-5.1 [facility] Comment on above: Performed By: #### C MP #### [facility] [address] [place] [address] Dr. Michele Obrien Protein [Mass/Vol] 6.5 g/dL Normal 6.4-8.[address] [facility] Comment on above: Performed By: #### C MP #### [facility] [address] [address] [address] Michele Obrien Sodium [Moles/Vol] 140 mmol/L Normal 136-[address] [facility] Comment on above: Performed By: #### C MP #### [facility] [address] [address] [address] Michele Obrien Urea nitrogen [Mass/Vol] 14.0 mg/dL Normal 7.0-18.0 [facility] Comment on above: Performed By: #### C MP #### [facility] [address] [place] [address] Dr. Michele Obrien Urea nitrogen/Creatinine [Mass ratio] 16.5 mg/mg Normal [facility] Comment on above: Performed By: #### C MP #### [facility] [address] [place] [address] Dr. Michele Obrien URINE MICROSCOPIC ONLYon BACTERIA TRACE Abnormal NONE SEEN [facility] Comment on above: Performed By: #### H IV12 #### [facility] [address] [place] [address] Dr. Michele Obrien Bacteria identified Cx Nom (U) NOT INDICATED Normal [facility] Comment on above: Performed By: #### H IV12 #### [facility] [address] [place] [address] Dr. Michele Obrien CAST NONE SEEN Normal NONE SEEN [facility] Comment on above: Performed By: #### H IV12 #### [facility] [address] [place] [address] Dr. Michele Obrien Crystals LM Nom (Urine sed) NONE SEEN Normal NONE SEEN [facility] Comment on above: Performed By: #### H IV12 #### [facility] [address] [place] [address] Dr. Michele Obrien Epithelial cells LM Ql (Urine sed) FEW Abnormal NONE SEEN /RARE [facility] Comment on above: Performed By: #### H IV12 #### [facility] [address] [place] [address] Dr. Michele Obrien MUCOUS TRACE Abnormal NONE SEEN [facility] Comment on above: Performed By: #### H IV12 #### [facility] [address] [place] [address] Dr. Michele Obrien RBC 20-50 Abnormal 0-2 [facility] Comment on above: Performed By: #### H IV12 #### [facility] [address] [place] [address] Dr. Michele Obrien WBC 0-2 Abnormal NONE SEEN [facility] Comment on above: Performed By: #### H IV12 #### [facility] [address] [place] [address] Dr. Michele Obrien HIV 1 AND 2 WITH REFLEXon HIV Screen 4th Generation wRfx Non-Reactive Normal Non Reactive [facility] Comment on above: Result Comment: HIV Negative HIV-1/HIV-2 antibodies and HIV-1 p24 antigen were NOT detected. There is no laboratory evidence of HIV infection. Performed By: #### H IV12 #### [facility] [address] [place] [address] Dr. Michele Obrien FERRITINon 10-16-2022 Ferritin [Mass/Vol] 6.0 ng/mL Critically low 6.2-137.0 [facility] Comment on above: Performed By: #### F ERR, FETIBC #### [facility] [address] [place] [address] Dr. Michele Obrien FREE T3on 10-16-2022 FREE T3 1.87 pg/mlL Critically low 2.18-3.98 [facility] Comment on above: Performed By: #### H IV12 #### [facility] [address] [place] [address] Dr. Michele Obrien HEMOGRAM AND PLATELon 2022 Hematocrit (Bld) [Volume fraction] 35.7 % Critically low 36.0-48.0 [facility] Comment on above: Performed By: #### H H #### [facility] [address] [place] [address] Dr. Michele Obrien Hemoglobin (Bld) [Mass/Vol] 10.4 g/dL Critically low 12.0-16.0 [facility] Comment on above: Performed By: #### H H #### [facility] [address] [place] [address] Dr. Michele Obrien MCH (RBC) [Entitic mass] 20.0 pg Critically low 26.7-34.0 [facility] Comment on above: Performed By: #### H H #### [facility] [address] [place] [address] Dr. Michele Obrien MCHC (RBC) [Mass/Vol] 29.1 g/dL Critically low 29.9-35.2 [facility] Comment on above: Performed By: #### H H #### [facility] [address] [address] [address] Michele Obrien MCV (RBC) [Entitic vol] 68.5 fL Critically low 81.0-99.0 [facility] Comment on above: Performed By: #### H H #### [facility] [address] [address] [address] Michele Obrien PLT 241 103/ul Normal 150-450 [facility] Comment on above: Performed By: #### H H #### [facility] [address] [address] [address] Michele Obrien RBC 5.21 106/ul Normal 4.20-5.40 [facility] Comment on above: Performed By: #### H H #### [facility] [address] [place] [address] Dr. Michele Obrien WBC 6.9 103/ul Normal 4.0-11.0 [facility] Comment on above: Performed By: #### H H #### [facility] [address] [place] [address] Dr. Michele Obrien IRON AND TIBCon 10-16-2022 % SATURATION 4.5 % Normal [facility] Comment on above: Performed By: #### F ERR, FETIBC #### [facility] [address] [place] [address] Dr. Michele Obrien Iron [Mass/Vol] 18.0 ug/dL Critically low 50.0-170.0 [facility] Comment on above: Performed By: #### F ERR, FETIBC #### [facility] [address] [place] [address] Dr. Michele Obrien TIBC DIRECT 396.0 ug/dL Normal 250.0-450.0 [facility] Comment on above: Performed By: #### F ERR, FETIBC #### [facility] [address] [place] [address] Dr. Michele Obrien TSH W/ REFLEX TO FT4on 10-16 TSH 3.577 uIU/mL Normal 0.358-3.740 [facility] Comment on above: Performed By: #### H IV12 #### [facility] [address] [place] [address] Dr. Michele Obrien VITAMIN Con 09-03-2022 Vitamin C 0.2 mg/dL Critically low 0.4-2.0 [facility] Comment on above: Result Comment: Li min C deficiency is generally defined as plasma or serum concentrations less than 0.2 mg/dL and levels between 0.2 and 0.4 mg/dL are considered low. Performed By: #### F ERR, FETIBC #### [facility] [address] [place] [address] Dr. Michele Obrien VITAMIN Aon 09-01-2022 Vitamin A 33.6 ug/dL Normal 18.9-57.3 [facility] Comment on above: Result Comment: Refe [...] Administration. Performed By: #### V ITAMA #### [facility] [address] [place] [address] Dr. Michele Obrien VITAMIN Kodi 09-01-2022 Vitamin E (Alpha T) 11.9 mg/L Normal 5.9-19.4 [facility] Comment on above: Performed By: #### V ITAE #### [facility] [address] [place] [address] Dr. Michele Obrien Vitamin E (Gamma T) 1.5 mg/L Normal 0.7-4.9 [facility] Comment on above: Result Comment: Refe rence intervals for alpha and gamma-tocopherol determined from National Health and Nutrition Examination Survey, 2654-5832. Individuals with alpha-tocopherol levels less than 5.0 mg/L are considered vitamin E deficient. Performed By: #### V ITAE #### [facility] [address] [place] [address] Dr. Michele Obrien VITAMIN Garrett 08-26-2022 Vitamin K1 0.24 ng/mL Normal 0.10-2.20 [facility] Comment on above: Performed By: #### F ERR, FETIBC #### [facility] [address] [address] [address] Michele Obrien SELENIUM, PLASMAon Selenium, Serum/Plasma 110 ug/L Normal 93-198 [facility] Comment on above: Performed By: #### H IV12 #### [facility] [address] [address] [address] Michele Obrien VITAMIN B1 (THIAMINE)on 08-02 Vit. B1, Whole Blood 126.2 nmol/L Normal 66.5-200.0 [facility] Comment on above: Performed By: #### F ERR, FETIBC #### [facility] [address] [place] [address] Dr. Michele Obrien ZINC SERUM OR PLASMAon 08-23 Zinc, Plasma or Serum 69 ug/dL Normal 44-115 [facility] Comment on above: Result Comment: Dete ction Limit = 5 Performed By: #### H IV12 #### [facility] [address] [address] [address] Michele Obrien FERRITINon 08-20-2022 Ferritin [Mass/Vol] 5.0 ng/mL Critically low 6.2-137.0 [facility] Comment on above: Performed By: #### F ERR, FETIBC #### [facility] [address] [place] [address] Dr. Michele Obrien FREE T4on 08-20-2022 Free T4 [Mass/Vol] 1.01 ng/dL Normal 0.76-1.46 [facility] Comment on above: Performed By: #### H IV12 #### [facility] [address] [place] [address] Dr. Michele Obrien GLYCOHEMOGLOBIN A1Con 2022 ADA RECOMMENDATION SEE BELOW Normal [facility] Comment on above: Result Comment: ADA RECOMMENDED LIMIT 4.0 - 6.0 ADA THERAPEUTIC TARGET < 7.0 ACTION SUGGESTED > 7.0 Performed By: #### H IV12 #### [facility] [address] [place] [address] Dr. Michele Obrien Glucose [Mass/Vol] 80 mg/dL Normal [facility] Comment on above: Performed By: #### H IV12 #### [facility] [address] [address] [address] Michele Obrien HbA1c (Bld) [Mass fraction] 4.4 % Critically low 4.5-6.2 [facility] Comment on above: Performed By: #### H IV12 #### [facility] [address] [address] [address] Michele Obrien HEMOGRAM AND PLATELon 2022 Hematocrit (Bld) [Volume fraction] 29.3 % Critically low 36.0-48.0 [facility] Comment on above: Performed By: #### H IV12 #### [facility] [address] [address] [address] Michele Obrien Hemoglobin (Bld) [Mass/Vol] 9.3 g/dL Critically low 12.0-16.0 [facility] Comment on above: Performed By: #### H IV12 #### [facility] [address] [address] [address] Michele Obrien MCH (RBC) [Entitic mass] 20.1 pg Critically low 26.7-34.0 [facility] Comment on above: Performed By: #### H IV12 #### [facility] [address] [address] [address] Michele Obrien MCHC (RBC) [Mass/Vol] 31.7 g/dL Normal 29.9-35.2 [facility] Comment on above: Performed By: #### H IV12 #### [facility] [address] [address] [address] Michele Obrien MCV (RBC) [Entitic vol] 63.4 fL Critically low 81.0-99.0 [facility] Comment on above: Performed By: #### H IV12 #### [facility] [address] [address] [address] Michele Obrien PLT 213 103/ul Normal 150-450 [facility] Comment on above: Performed By: #### H IV12 #### [facility] [address] [address] [address] Mihcele Obrien RBC 4.62 106/ul Normal 4.20-5.40 [facility] Comment on above: Performed By: #### H IV12 #### [facility] [address] [address] [address] Michele Obrien WBC 5.8 103/ul Normal 4.0-11.0 [facility] Comment on above: Performed By: #### H IV12 #### [facility] [address] [address] [address] Michele Obrien IRON AND TIBCon 08-20-2022 % SATURATION 6.5 % Normal [facility] Comment on above: Performed By: #### F ERR, FETIBC #### [facility] [address] [place] [address] Dr. Michele Obrien Iron [Mass/Vol] 22.0 ug/dL Critically low 50.0-170.0 [facility] Comment on above: Performed By: #### F ERR, FETIBC #### [facility] [address] [place] [address] Dr. Michele Obrien TIBC DIRECT 340.0 ug/dL Normal 250.0-450.0 [facility] Comment on above: Performed By: #### F ERR, FETIBC #### [facility] [address] [place] [address] Dr. Michele Obrien LIPID PROFILEon 08-20-2022 CHOL-HDL RATIO NORM SEE BELOW Normal [facility] Comment on above: Result Comment: 3.3 - 4.4 LOW RISK 4.4 - 7.1 AVERAGE RISK 7.1 - 11.0 MODERATE RISK >11.0 HIGH RISK Performed By: #### F ERR, FETIBC #### [facility] [address] [place] [address] Dr. Michele Obrien Cholesterol [Mass/Vol] 146 mg/dL Normal <=200 [facility] Comment on above: Performed By: #### F ERR, FETIBC #### [facility] [address] [place] [address] Dr. Michele Obrien Cholesterol in HDL [Mass/Vol] 58 mg/dL Normal 40-60 [facility] Comment on above: Performed By: #### F ERR, FETIBC #### [facility] [address] [address] [address] Michele Obrien Cholesterol in LDL [Mass/Vol] 66.8 mg/dL Normal [facility] Comment on above: Performed By: #### F ERR, FETIBC #### [facility] [address] [address] [address] Michele Obrien Cholesterol.total/Cho lesterol in HDL [Mass ratio] 2.5 {ratio} Normal [facility] Comment on above: Performed By: #### F ERR, FETIBC #### [facility] [address] [address] [address] Michele Obrien HDL NORMAL > or = 60 mg/dl - LO W CARDIOVASCULAR RISK <40 mg/dl - HIGH CARDIOVASCULAR RISK Normal [facility] Comment on above: Performed By: #### F ERR, FETIBC #### [facility] [address] [address] [address] Michele Obrien LDL CALC NORMAL SEE BELOW Normal [facility] Comment on above: Result Comment: <100 mg/dl OPTIMAL 100 - 129 mg/dl NEAR OR ABOVE OPTIMAL 130 - 159 mg/dl BORDERLINE HIGH 160 - 189 mg/dl HIGH >190 mg/dl VERY HIGH Performed By: #### F ERR, FETIBC #### [facility] [address] [address] [address] Michele Obrien Triglyceride [Mass/Vol] 106 mg/dL Normal <=150 [facility] Comment on above: Performed By: #### F ERR, FETIBC #### [facility] [address] [address] [address] Michele Obrien VLDL CALC 21.2 mg/dL Normal [facility] Comment on above: Performed By: #### F ERR, FETIBC #### [facility] [address] [address] [address] Michele Obrien PROF 14(COMP METB)on 01-20-2 023 Albumin [Mass/Vol] 3.5 g/dL Normal 3.4-5.0 [facility] Comment on above: Performed By: #### F ERR, FETIBC #### [facility] [address] [address] [address] Michele Obrien Albumin/Globulin [Mass ratio] 1.2 {ratio} Normal [facility] Comment on above: Performed By: #### F ERR, FETIBC #### [facility] [address] [address] [address] Michele Obrien ALP [Catalytic activity/Vol] 76 U/L Normal 46-116 [facility] Comment on above: Performed By: #### F ERR, FETIBC #### [facility] [address] [address] [address] Michele Obrien ALT [Catalytic activity/Vol] 16 U/L Normal 14-59 [facility] Comment on above: Performed By: #### F ERR, FETIBC #### [facility] [address] [address] [address] Michele Obrien Anion gap [Moles/Vol] 10.0 mmol/L Normal [facility] Comment on above: Performed By: #### F ERR, FETIBC #### [facility] [address] [place] [address] Dr. Michele Obrien AST [Catalytic activity/Vol] 16 U/L Normal 15-37 [facility] Comment on above: Performed By: #### F ERR, FETIBC #### [facility] [address] [address] [address] Michele Obrien Bilirubin [Mass/Vol] 0.3 mg/dL Normal 0.2-1.0 [facility] Comment on above: Performed By: #### F ERR, FETIBC #### [facility] [address] [address] [address] Michele Obrien Calcium [Mass/Vol] 8.5 mg/dL Normal 8.5-10.1 [facility] Comment on above: Performed By: #### F ERR, FETIBC #### [facility] [address] [address] [address] Michele Obrien Chloride [Moles/Vol] 106 mmol/L Normal 98-107 [facility] Comment on above: Performed By: #### F ERR, FETIBC #### [facility] [address] [address] [address] Michele Obrien CO2 [Moles/Vol] 30.8 mmol/L Normal 21.0-32.0 [facility] Comment on above: Performed By: #### F ERR, FETIBC #### [facility] [address] [address] [address] Michele Obrien Creatinine [Mass/Vol] 0.68 mg/dL Normal 0.55-1.02 [facility] Comment on above: Performed By: #### F ERR, FETIBC #### [facility] [address] [place] [address] Dr. Michele Obrien EGFR-AF KYRGYZ >60 Normal >=60 [facility] Comment on above: Performed By: #### F ERR, FETIBC #### [facility] [address] [place] [address] Dr. Michele Obrien EGFR-NON AF KYRGYZ >60 Normal >=60 [facility] Comment on above: Performed By: #### F ERR, FETIBC #### [facility] [address] [place] [address] Dr. Michele Obrien Globulin (S) [Mass/Vol] 2.8 g/dL Normal [facility] Comment on above: Performed By: #### F ERR, FETIBC #### [facility] [address] [address] [address] Michele Obrien Glucose [Mass/Vol] 77 mg/dL Normal 74-106 [facility] Comment on above: Performed By: #### F ERR, FETIBC #### [facility] [address] [address] [address] Michele Obrien Potassium [Moles/Vol] 3.8 mmol/L Normal 3.5-5.1 [facility] Comment on above: Performed By: #### F ERR, FETIBC #### [facility] [address] [place] [address] Dr. Michele Obrien Protein [Mass/Vol] 6.3 g/dL Critically low 6.4-8.2 [facility] Comment on above: Performed By: #### F ERR, FETIBC #### [facility] [address] [place] [address] Dr. Michele Obrien Sodium [Moles/Vol] 143 mmol/L Normal 136-145 [facility] Comment on above: Performed By: #### F ERR, FETIBC #### [facility] [address] [place] [address] Dr. Michele Obrien Urea nitrogen [Mass/Vol] 10.0 mg/dL Normal 7.0-18.0 [facility] Comment on above: Performed By: #### F ERR, FETIBC #### [facility] [address] [place] [address] Dr. Michele Obrien Urea nitrogen/Creatinine [Mass ratio] 14.7 mg/mg Normal [facility] Comment on above: Performed By: #### F ERR, FETIBC #### [facility] [address] [place] [address] Dr. Michele Obrien TSHon 08-20-2022 TSH 4.302 uIU/mL Critically high 0.358-3.740 [facility] Comment on above: Performed By: #### F ERR, FETIBC #### [facility] [address] [place] [address] Dr. Michele Obrien VIT B12 AND FOLATEon 023 Cobalamin (Vitamin B12) [Mass/Vol] 433.0 pg/mL Normal 193.0-986.0 [facility] Comment on above: Performed By: #### B 12FOL, VITAD #### [facility] [address] [place] [address] Dr. Michele Obrien FOLATE 18.00 ng/mL Normal 8.60-58.90 [facility] Comment on above: Performed By: #### B 12FOL, VITAD #### [facility] [address] [place] [address] Dr. Michele Obrien VITAMIN D 25 OHon 08-20-2022 VIT D 25-OH 33.4 ng/mL Normal [facility] Comment on above: Performed By: #### B 12FOL, VITAD #### [facility] [id number] Michele Obrien VIT D RANGES SEE BELOW Normal [facility] Comment on above: Result Comment: <20 ng/mL Vit D deficient 20 - <30 ng/mL Vit D insufficient 30 - 100 ng/mL Vit D sufficient >100 ng/mL Potential Toxicity Performed By: #### B 12FOL, VITAD #### [facility] [address] [address] [address] Michele Obrien Vital Signs Date Time Vital Sign Value Performing Clinician Facility 02-26-2025 09:56-0400 Body height 177.8 cm Elisabeth Beckman APRN Work Phone: [facility] 02-26-2025 09:56-0400 Body mass index (BMI) [Ratio] 39.3 kg/m2 Elisabeth Beckman APRN Work Phone: [facility] 02-26-2025 09:56-0400 Body temperature 96.6 [degF] Elisabeth Beckman APRN Work Phone: [facility] 02-26-2025 09:56-0400 Body weight 124.28 kg Elisabeth Beckman APRN Work Phone: [facility] 02-26-2025 09:56-0400 Diastolic blood pressure 80 mm[Hg] Elisabeth Beckman APRN Work Phone: [facility] 02-26-2025 09:56-0400 Heart rate 69 /min Elisabeth Beckman APRN Work Phone: [facility] 02-26-2025 09:56-0400 SaO2% (BldA) [Mass fraction] 98 % Elisabeth Beckman APRN Work Phone: [facility] 02-26-2025 09:56-0400 Systolic blood pressure 138 mm[Hg] Elisabeth Beckman CUSTOM DESIGNER Work Phone: [facility] 02-25-2025 10:25-0400 Body height 177.8 cm Ran Osullivan DPM Work Phone: [facility] 02-25-2025 10:25-0400 Body mass index (BMI) [Ratio] 45.2 kg/m2 Ran Osullivan DPM Work Phone: [facility] 02-25-2025 10:25-0400 Body weight 142.88 kg Ran Osullivan DPM Work Phone: [facility] 02-25-2025 10:25-0400 Respiratory rate 16 /min Ran Osullivan DPM Work Phone: [facility] 12-28-2024 10:59-0400 Body height 177.8 cm Ginger Miles CUSTOM DESIGNER.VEST PRESSER Work Phone: [facility] 12-28-2024 10:59-0400 Body mass index (BMI) [Ratio] 41.61 kg/m2 Ginger Miles CUSTOM DESIGNER.VEST PRESSER Work Phone: [facility] 12-28-2024 10:59-0400 Body temperature 98.1 [degF] Ginger Miles CUSTOM DESIGNER.VEST PRESSER Work Phone: [facility] 12-28-2024 10:59-0400 Body weight 131.54 kg Ginger Miles CUSTOM DESIGNER.VEST PRESSER Work Phone: [facility] 12-28-2024 10:59-0400 Diastolic blood pressure 73 mm[Hg] Ginger Miles CUSTOM DESIGNER.VEST PRESSER Work Phone: [facility] 12-28-2024 10:59-0400 Heart rate 74 /min Ginger Miles CUSTOM DESIGNER.VEST PRESSER Work Phone: [facility] 12-28-2024 10:59-0400 Systolic blood pressure 116 mm[Hg] Ginger Miles CUSTOM DESIGNER.VEST PRESSER Work Phone: [facility] 12-20-2024 11:05-0400 Body height 177.8 cm [facility] 12-20-2024 11:05-0400 Body mass index (BMI) [Ratio] 42.3 kg/m2 [facility] 12-20-2024 11:05-0400 Body temperature 95.7 [degF] [facility] 12-20-2024 11:05-0400 Body weight 133.8 kg [facility] 12-20-2024 11:05-0400 Diastolic blood pressure 74 mm[Hg] [facility] 12-20-2024 11:05-0400 Heart rate 87 /min [facility] 12-20-2024 11:05-0400 SaO2% (BldA) [Mass fraction] 97 % [facility] 12-20-2024 11:05-0400 Systolic blood pressure 126 mm[Hg] [facility] 12-14-2024 11:07-0400 Body height 177.8 cm Ginger Miles CUSTOM DESIGNER.VEST PRESSER Work Phone: [facility] 12-14-2024 11:07-0400 Body mass index (BMI) [Ratio] 41.75 kg/m2 Ginger Miles CUSTOM DESIGNER.VEST PRESSER Work Phone: [facility] 12-14-2024 11:07-0400 Body temperature 96.91 [degF] Ginger Miles CUSTOM DESIGNER.VEST PRESSER Work Phone: [facility] 12-14-2024 11:07-0400 Body weight 132 kg Ginger Miles CUSTOM DESIGNER.VEST PRESSER Work Phone: [facility] 12-14-2024 11:07-0400 Diastolic blood pressure 86 mm[Hg] Ginger Miles CUSTOM DESIGNER.VEST PRESSER Work Phone: [facility] 12-14-2024 11:07-0400 Heart rate 85 /min Ginger Miles CUSTOM DESIGNER.VEST PRESSER Work Phone: [facility] 12-14-2024 11:07-0400 Systolic blood pressure 136 mm[Hg] Ginger Miles CUSTOM DESIGNER.VEST PRESSER Work Phone: [facility] 12-05-2024 10:59-0400 Body height 177.8 cm Ginger Miles CUSTOM DESIGNER.VEST PRESSER Work Phone: [facility] 12-05-2024 10:59-0400 Body mass index (BMI) [Ratio] 42.47 kg/m2 Ginger Miles CUSTOM DESIGNER.VEST PRESSER Work Phone: [facility] 12-05-2024 10:59-0400 Body temperature 97.3 [degF] Ginger Miles CUSTOM DESIGNER.VEST PRESSER Work Phone: [facility] 12-05-2024 10:59-0400 Body weight 134.26 kg Ginger Miles CUSTOM DESIGNER.VEST PRESSER Work Phone: [facility] 12-05-2024 10:59-0400 Diastolic blood pressure 80 mm[Hg] Ginger Miles CUSTOM DESIGNER.VEST PRESSER Work Phone: [facility] 12-05-2024 10:59-0400 Heart rate 81 /min Ginger Miles CUSTOM DESIGNER.VEST PRESSER Work Phone: [facility] 12-05-2024 10:59-0400 Systolic blood pressure 126 mm[Hg] Ginger Miles CUSTOM DESIGNER.VEST PRESSER Work Phone: [facility] 11-06-2024 10:04-0400 Body height 177.8 cm Pac 6 Work Phone: [facility] 11-06-2024 10:04-0400 Body mass index (BMI) [Ratio] 45.52 kg/m2 Pacc 6 Work Phone: [facility] 11-06-2024 10:04-0400 Body temperature 97 [degF] Pacc 6 Work Phone: [facility] 11-06-2024 10:04-0400 Body weight 143.9 kg Pacc 6 Work Phone: [facility] 11-06-2024 10:04-0400 Diastolic blood pressure 88 mm[Hg] Pacc 6 Work Phone: [facility] 11-06-2024 10:04-0400 Heart rate 78 /min Pacc 6 Work Phone: [facility] 11-06-2024 10:04-0400 SaO2% (BldA) [Mass fraction] 98 % Pacc 6 Work Phone: [facility] 11-06-2024 10:04-0400 Systolic blood pressure 139 mm[Hg] Pacc 6 Work Phone: [facility] 2024 13:01-0400 Body height 177.8 cm Ran Brown DPM Work Phone: [facility] 2024 13:01-0400 Body mass index (BMI) [Ratio] 45.2 kg/m2 Ran Brown DPM Work Phone: [facility] 2024 13:01-0400 Body weight 142.88 kg Ran Brown DPM Work Phone: [facility] 2024 13:01-0400 Respiratory rate 16 /min Ran Brown DPM Work Phone: [facility] 09-20-2024 09:44-0500 Body height 177.8 cm Ran Brown DPM Work Phone: [facility] 09-20-2024 09:44-0500 Body mass index (BMI) [Ratio] 45.2 kg/m2 Ran Brown DPM Work Phone: [facility] 09-20-2024 09:44-0500 Body weight 142.88 kg Ran Brown DPM Work Phone: [facility] 09-20-2024 09:44-0500 Respiratory rate 16 /min Ran Brown DPM Work Phone: [facility] 09-14-2024 11:22-0500 Body height 177.8 cm [facility] 09-14-2024 11:22-0500 Body mass index (BMI) [Ratio] 44.9 kg/m2 [facility] 09-14-2024 11:22-0500 Body temperature 97.8 [degF] [facility] 09-14-2024 11:22-0500 Body weight 141.97 kg [facility] 09-14-2024 11:22-0500 Diastolic blood pressure 84 mm[Hg] [facility] 09-14-2024 11:22-0500 Heart rate 93 /min [facility] 09-14-2024 11:22-0500 SaO2% (BldA) [Mass fraction] 97 % [facility] 09-14-2024 11:22-0500 Systolic blood pressure 132 mm[Hg] [facility] 09-03-2024 10:20-0500 Body height 177.8 cm Ran Osullivan DPM Work Phone: [facility] 09-03-2024 10:20-0500 Body mass index (BMI) [Ratio] 45.2 kg/m2 Ran Osullivan DPM Work Phone: [facility] 09-03-2024 10:20-0500 Body weight 142.88 kg Ran Osullivan DPM Work Phone: [facility] 09-03-2024 10:20-0500 Respiratory rate 18 /min Ran Tariq DPM Work Phone: [facility] 08-17-2024 10:07-0500 Body height 177.8 cm [facility] Work Phone: [facility] 08-17-2024 10:07-0500 Body mass index (BMI) [Ratio] 43.62 kg/m2 [facility] Work Phone: [facility] 08-17-2024 10:07-0500 Body weight 137.89 kg [facility] Work Phone: [facility] 08-15-2024 10:59-0500 Body height 177.8 cm [facility] 08-15-2024 10:59-0500 Body mass index (BMI) [Ratio] 46 kg/m2 [facility] 08-15-2024 10:59-0500 Body temperature 97.3 [degF] [facility] 08-15-2024 10:59-0500 Body weight 145.65 kg [facility] 08-15-2024 10:59-0500 Diastolic blood pressure 82 mm[Hg] [facility] 08-15-2024 10:59-0500 Heart rate 78 /min [facility] 08-15-2024 10:59-0500 SaO2% (BldA) [Mass fraction] 98 % [facility] 08-15-2024 10:59-0500 Systolic blood pressure 124 mm[Hg] [facility] 06-20-2024 09:58-0500 Body height 177.8 cm [facility] Work Phone: [facility] 06-20-2024 09:58-0500 Body mass index (BMI) [Ratio] 43.62 kg/m2 [facility] Work Phone: [facility] 06-20-2024 09:58-0500 Body weight 137.89 kg [facility] Work Phone: [facility] 06-19-2024 09:39-0500 Body height 177.8 cm Wilber Shammo IMMIGRATION SPECIALIST-BC Work Phone: [facility] 06-19-2024 09:39-0500 Body mass index (BMI) [Ratio] 43.7 kg/m2 Wilber Shammo IMMIGRATION SPECIALIST-BC Work Phone: [facility] 06-19-2024 09:39-0500 Body weight 138.34 kg Wilber Shammo IMMIGRATION SPECIALIST-BC Work Phone: [facility] 06-19-2024 09:39-0500 Diastolic blood pressure 80 mm[Hg] Wilber Shammo IMMIGRATION SPECIALIST-BC Work Phone: [facility] 06-19-2024 09:39-0500 Heart rate 74 /min Wilber Shammo IMMIGRATION SPECIALIST-BC Work Phone: [facility] 06-19-2024 09:39-0500 SaO2% (BldA) [Mass fraction] 97 % Wilber Shammo IMMIGRATION SPECIALIST-BC Work Phone: [facility] 06-19-2024 09:39-0500 Systolic blood pressure 130 mm[Hg] Wilber Shammo IMMIGRATION SPECIALIST-BC Work Phone: [facility] 06-07-2024 13:17-0500 Body height 177.[address] Work Phone: [facility] 06-07-2024 13:17-0500 Body mass index (BMI) [Ratio] 43.76 kg/m2 Lala Nadia RD Work Phone: [facility] 06-07-2024 13:17-0500 Body weight 138.[address] Work Phone: [facility] Comment on above: verbal 05-24-2024 14:03-0400 Body mass index (BMI) [Ratio] 43.62 kg/m2 Renetta Ruano MD Work Phone: [facility] 05-24-2024 14:03-0400 Body weight 137.89 kg Renetta Ruano MD Work Phone: [facility] 05-24-2024 10:00-0400 Body height 177.8 cm IMMIGRATION SPECIALIST-BC Wilber Shammo Work Phone: [facility] 05-24-2024 10:00-0400 Body mass index (BMI) [Ratio] 43.7 kg/m2 IMMIGRATION SPECIALIST-BC Wilber Shammo Work Phone: [facility] 05-24-2024 10:00-0400 Body temperature 97.4 [degF] IMMIGRATION SPECIALIST-BC Wilber Shammo Work Phone: [facility] 05-24-2024 10:00-0400 Body weight 138.06 kg IMMIGRATION SPECIALIST-BC Wilber Shammo Work Phone: [facility] 05-24-2024 10:00-0400 Diastolic blood pressure 86 mm[Hg] IMMIGRATION SPECIALIST-BC Wilber Shammo Work Phone: [facility] 05-24-2024 10:00-0400 SaO2% (BldA) [Mass fraction] 98 % IMMIGRATION SPECIALIST-BC Wilber Shammo Work Phone: [facility] 05-24-2024 10:00-0400 Systolic blood pressure 120 mm[Hg] IMMIGRATION SPECIALIST-BC Wilber Shammo Work Phone: [facility] 05-10-2024 10:45-0400 Body height 177.8 cm IMMIGRATION SPECIALIST-BC Wilber Shammo Work Phone: [facility] 05-10-2024 10:45-0400 Body mass index (BMI) [Ratio] 43.4 kg/m2 IMMIGRATION SPECIALIST-BC Wilber Shammo Work Phone: [facility] 05-10-2024 10:45-0400 Body weight 137.43 kg IMMIGRATION SPECIALIST-BC Wilber Shammo Work Phone: [facility] 05-10-2024 10:45-0400 Diastolic blood pressure 72 mm[Hg] IMMIGRATION SPECIALIST-BC Wilber Shammo Work Phone: [facility] 05-10-2024 10:45-0400 Heart rate 73 /min IMMIGRATION SPECIALIST-BC Wilber Shammo Work Phone: [facility] 05-10-2024 10:45-0400 Respiratory rate 18 /min IMMIGRATION SPECIALIST-BC Wilber Shammo Work Phone: [facility] 05-10-2024 10:45-0400 SaO2% (BldA) [Mass fraction] 98 % IMMIGRATION SPECIALIST-BC Wilber Shammo Work Phone: [facility] 05-10-2024 10:45-0400 Systolic blood pressure 156 mm[Hg] IMMIGRATION SPECIALIST-BC Wilber Shammo Work Phone: [facility] 04-24-2024 09:38-0400 Body height 177.8 cm Raine Grissom MD Work Phone: [facility] 04-24-2024 09:38-0400 Body mass index (BMI) [Ratio] 43.81 kg/m2 aRine Grissom MD Work Phone: [facility] 04-24-2024 09:38-0400 Body weight 138.5 kg Raine Grissom MD Work Phone: [facility] 04-24-2024 09:38-0400 Diastolic blood pressure 82 mm[Hg] Raine Grissom MD Work Phone: [facility] 04-24-2024 09:38-0400 Heart rate 80 /min Raine Grissom MD Work Phone: [facility] 04-24-2024 09:38-0400 Systolic blood pressure 144 mm[Hg] Raine Grissom MD Work Phone: [facility] 04-16-2024 14:36-0400 Body height 177.8 cm Rocio Jeff MD Work Phone: [facility] 04-16-2024 14:36-0400 Body mass index (BMI) [Ratio] 43.05 kg/m2 Rocio Jeff MD Work Phone: [facility] 04-16-2024 14:36-0400 Body temperature 97.7 [degF] Rocio Jeff MD Work Phone: [facility] 04-16-2024 14:36-0400 Body weight 136.08 kg Rocio Jeff MD Work Phone: [facility] 04-16-2024 14:36-0400 Diastolic blood pressure 79 mm[Hg] Rocio Jeff MD Work Phone: [facility] 04-16-2024 14:36-0400 Heart rate 72 /min Rocio Jeff MD Work Phone: [facility] 04-16-2024 14:36-0400 Systolic blood pressure 149 mm[Hg] Rocio Jeff MD Work Phone: [facility] 03-13-2024 10:03-0400 Blood Pressure Location [place] [facility] General Surgery [place] 03-13-2024 10:03-0400 Diastolic blood pressure 85 mm[Hg] [place] [facility] Surgery [place] 03-13-2024 10:03-0400 Heart rate 80 /min [place] [facility] General Surgery [place] 03-13-2024 10:03-0400 Respiratory rate 16 /min [place] [facility] Surgery [place] 03-13-2024 10:03-0400 Systolic blood pressure 124 mm[Hg] [place] [facility] Surgery [place] 02-28-2024 13:15-0400 Body height 180.34 cm IMMIGRATION SPECIALIST-BC Wilber Shammo Work Phone: [facility] 02-28-2024 13:15-0400 Body mass index (BMI) [Ratio] 42.4 kg/m2 IMMIGRATION SPECIALIST-BC Wilber Shammo Work Phone: [facility] 02-28-2024 13:15-0400 Body weight 137.89 kg IMMIGRATION SPECIALIST-BC Wilber Shammo Work Phone: [facility] 02-28-2024 13:15-0400 Diastolic blood pressure 78 mm[Hg] IMMIGRATION SPECIALIST-BC Wilber Shammo Work Phone: [facility] 02-28-2024 13:15-0400 Heart rate 76 /min IMMIGRATION SPECIALIST-BC Wilber Shammo Work Phone: [facility] 02-28-2024 13:15-0400 SaO2% (BldA) [Mass fraction] 100 % IMMIGRATION SPECIALIST-BC Wilber Shammo Work Phone: [facility] 02-28-2024 13:15-0400 Systolic blood pressure 130 mm[Hg] IMMIGRATION SPECIALIST-BC Wilber Shammo Work Phone: [facility] 09-22-2023 09:42-0500 Body mass index (BMI) [Ratio] 44.85 kg/m2 Héctor Gonzalez MD Work Phone: [facility] 09-22-2023 09:42-0500 Body weight 141.79 kg [facility]éctor Gonzalez [facility] 09-22-2023 09:42-0500 Diastolic blood pressure 74 mm[Hg] Héctor Gonzalez MD Work Phone: [facility] 09-22-2023 09:42-0500 Heart rate 82 /min [facility]éctor Gonzalez [facility] 09-22-2023 09:42-0500 Systolic blood pressure 123 mm[Hg] Héctor Gonzalez MD Work Phone: [facility] 09-15-2023 11:30-0500 Body mass index (BMI) [Ratio] 43.52 kg/m2 Kassandra Alfaro PA Work Phone: [facility] 09-15-2023 11:30-0500 Body weight 141.52 kg Kassandra Dominic PA Work Phone: [facility] [employer] 09-15-2023 11:30-0500 Diastolic blood pressure 80 mm[Hg] Kassandra [place] PA Work Phone: [facility] [employer] 09-15-2023 11:30-0500 Systolic blood pressure 130 mm[Hg] Kassandra Dominic PA Work Phone: [facility] [employer] 05-19-2023 15:30-0400 Body weight 128.05 kg Denys Gallego Other [employer] Other 05-19-2023 15:30-0400 Diastolic blood pressure 86 mm[Hg] Denys Gallego Other [employer] Other 05-19-2023 15:30-0400 Systolic blood pressure 127 mm[Hg] Denys Gallego Other [employer] Other 03-15-2023 10:48-0400 Diastolic blood pressure 80 mm[Hg] IMMIGRATION SPECIALIST-BC Wilber Shammo Work Phone: [facility] 03-15-2023 10:48-0400 Heart rate 63 /min IMMIGRATION SPECIALIST-BC Wilber Shammo Work Phone: [facility] 03-15-2023 10:48-0400 Respiratory rate 16 /min IMMIGRATION SPECIALIST-BC Wilber Shammo Work Phone: [facility] 03-15-2023 10:48-0400 SaO2% (BldA) [Mass fraction] 99 % IMMIGRATION SPECIALIST-BC Wilber Shammo Work Phone: [facility] 03-15-2023 10:48-0400 Systolic blood pressure 126 mm[Hg] IMMIGRATION SPECIALIST-BC Wilber Shammo Work Phone: [facility] 03-15-2023 08:43-0400 Body height 180.34 cm IMMIGRATION SPECIALIST-BC Wilber Shammo Work Phone: [facility] 03-15-2023 08:43-0400 Body temperature 98.2 [degF] IMMIGRATION SPECIALIST-BC Wilber Shammo Work Phone: [facility] 03-15-2023 08:43-0400 Body weight 129.27 kg IMMIGRATION SPECIALIST-BC Wilber Shammo Work Phone: [facility] 01-17-2023 10:00-0400 Body weight 127.01 kg Denys Gallego Other [employer] Other 01-17-2023 10:00-0400 Diastolic blood pressure 85 mm[Hg] Denys Gallego Other [employer] Other 01-17-2023 10:00-0400 Systolic blood pressure 125 mm[Hg] Denys Gallego Other [facility] Other Encounters Encounter Date Encounter Type Care Provider Facility Start: 02-26-2025 End: 02-26-2025 ambulatory Elisabeth Beckman APRN Work Phone: [facility] Work Phone: Start: 02-26-2025 End: 02-26-2025 Patient encounter procedure Elisabeth Beckman APRN [employer] Work Phone: Start: 02-25-2025 End: 02-25-2025 Bamboo flowsheet Ran Osullivan DPM Work Phone: [facility] Start: 02-25-2025 End: 02-25-2025 Bamboo flowsheet Ran Osullivan DPM Work Phone: [facility] Start: 02-25-2025 End: 02-25-2025 ambulatory RAN OSULLIVAN Not Available Start: 02-25-2025 End: 02-25-2025 Office outpatient visit 15 minutes Ran Osullivan DPM Work Phone: [facility] Comment on above: Sinus tarsitis of ri ght foot (Primary Dx); Other specified disorders of synovium, right ankle and foot Start: 02-19-2025 End: 02-19-[address] Work Phone: General Surgery Start: 01-25-2025 End: 01-25-2025 Orders Only Ginger Silveira CUSTOM DESIGNER.VEST PRESSER Work Phone: General Surgery Comment on above: S/P hernia repair (P rimary Dx); Postoperative visit Patient Update Start: 01-24-2025 End: 01-24-2025 Orders Only Ginegr Silveira CUSTOM DESIGNER.VE[employer] PRESSER Work Phone: General Surgery Comment on above: Acute postoperative pain Start: 01-07-2025 End: 01-07-2025 Orders Only Ginger Silveira CUSTOM DESIGNER.VEST PRESSER Work Phone: General Surgery Comment on above: Acute postoperative pain (Primary Dx) Start: 12-28-2024 End: 12-28-2024 Patient encounter procedure Ginger Silveira CUSTOM DESIGNER.VEST PRESSER Work Phone: General Surgery Comment on above: Encounter for postop erative wound check (Primary Dx) Start: 12-28-2024 End: 12-28-2024 ambulatory ELISABETH Renu JIMÉNEZRBACHER Facility:[facility] Start: 12-21-2024 End: 12-21-2024 ambulatory ELISABETH Renu JIMÉNEZRBACHER Facility:[facility] Start: 12-21-2024 End: 12-21-2024 ambulatory ELISABETH Renu JIMÉNEZRBACHER Facility:[facility] Start: 12-20-2024 End: 12-20-2024 ambulatory [facility] Work Phone: Start: 12-20-2024 End: 12-20-2024 Patient encounter procedure [facility] Work Phone: Start: 12-19-2024 End: 12-19-2024 ambulatory ELISABETHBRAIN JIMÉNEZRBACHER Facility:[facility] Start: 12-14-2024 End: 12-14-2024 Patient encounter procedure Ginger Silveira CUSTOM DESIGNER.VE[employer] PRESSER Work Phone: General Surgery Comment on above: Encounter for postop erative wound check (Primary Dx) Start: 12-14-2024 End: 12-14-2024 ambulatory ELISABETH Renu JIMÉNEZRBACHER Facility:[facility] Start: 12-10-2024 End: 12-10-2024 Orders Only Ginger Silveira CUSTOM DESIGNER.[employer] PR[employer] Work Phone: General Surgery Comment on above: Acute postoperative pain (Primary Dx) Start: 12-06-2024 End: 12-06-2024 Telephone encounter Kristi Watts RN General Surgery Comment on above: Post Op Call Start: 12-05-2024 End: 12-05-2024 Telephone encounter Kristi Watts RN General Surgery Comment on above: Post Op Call Start: 12-05-2024 End: 12-05-2024 Patient encounter procedure Ginger Silveira CUSTOM DESIGNER.[employer] PRESSER Work Phone: General Surgery Comment on above: Postoperative visit (Primary Dx) Start: 12-05-2024 End: 12-05-2024 ambulatory ELISABETH BECKMAN Facility:[facility] Start: 12-03-2024 End: 12-03-2024 Orders Only Ginger Silveira CUSTOM DESIGNER.VE[employer] PRESSER Work Phone: General Surgery Comment on above: Acute postoperative pain Start: 11-30-2024 End: 11-30-2024 Admission to same day surgery center Raine Grissom MD Work Phone: General Surgery Comment on above: Bariatric surgery [facility] at[facility] (Primary Dx); S/P repair of ventral hernia Start: 11-30-2024 End: 11-30-2024 Telemedicine consultation with patient Raine Grissom MD Work Phone: General Surgery Start: 11-30-2024 End: 11-30-2024 ambulatory ELISABETH BECKMAN Facility:[facility] Start: 11-23-2024 End: 11-27-2024 Evaluation and management of inpatient ROCIO TOMER Facility:[facility] Start: 11-09-2024 End: 11-09-2024 Telephone encounter Kristi Watts RN General Surgery Comment on above: Approval call Start: 11-06-2024 End: 11-06-2024 Patient encounter procedure Colette Umaña PhD Work Phone: General Surgery Comment on above: Preoperative examina tion; Hiatal hernia; Morbid obesity (HCC) Start: 11-06-2024 End: 11-06-2024 Admission to establishment [facility] Work Phone: Pre Anesthesia Start: 11-06-2024 End: 11-06-2024 Anesthesia consultation [facility] Work Phone: Pre Anesthesia Comment on above: Preoperative examina tion (Primary Dx); Hiatal hernia; Morbid obesity (HCC); Primary hypertension; Gastroesophageal reflux disease without esophagitis; Acquired hypothyroidism; Inappropriate sinus tachycardia (HCC); Other iron deficiency anemia; Insulin resistance; Psoriatic arthritis (HCC); Class 3 severe obesity without serious comorbidity with body mass index (BMI) of 40.0 to 44.9 in adult, unspecified obesity type (HCC) Start: 11-06-2024 End: 11-06-2024 Preprocedural examination done [facility] Work Phone: [facility] Work Phone: Start: 11-06-2024 Non-patient / Non-visit [facility] Work Phone: Start: 11-06-2024 End: 11-06-2024 ambulatory ELISABETH BECKMAN Facility:[facility] Start: 11-06-2024 Encounter for other preprocedural examination [facility] Start: 2024 End: 2024 Bamboo flowsheet Ran Osullivan DPM Work Phone: [facility] Start: 2024 End: 2024 Bamboo flowsdrew Osullivan DPM Work Phone: [facility] Start: 2024 End: 2024 Office outpatient visit 15 minutes Ran Osullivan DPM Work Phone: [facility] Comment on above: Other specified diso rders of synovium, right ankle and foot (Primary Dx); Sinus tarsitis of right foot; Contracture of left ankle Start: 2024 End: 2024 ambulatory RAN OSULLIVAN Not Available Start: 10-18-2024 End: 10-18-2024 Bamboo flowsdrew Osullivan DPM Work Phone: [facility] Start: 10-18-2024 End: 10-18-2024 Bamboo flowsdrew Osullivan DPM Work Phone: [facility] Start: 10-18-2024 End: 10-18-2024 ambulatory RAN OSULLIVAN Not Available Start: 09-28-2024 End: 10-01-2024 Admission to same day surgery center Rocio Jeff MD Work Phone: [facility] Comment on above: 11.23.24 Cure (Open Complex AWR 4 hours los [address] Grissom Hiatal hernia/Lap Gastric Sleeve 3 hours) Start: 09-28-2024 End: 10-01-2024 ambulatory Rocio Jeff MD Work Phone: [facility] Start: 09-28-2024 End: 10-01-2024 Preprocedural examination done Rocio Jeff MD Work Phone: [facility] Start: 09-21-2024 End: 09-21-2024 Admission to same day surgery center Kristi Watts RN General Surgery Comment on above: 11/04/2024 (pseudo) Start: 09-21-2024 End: 09-21-2024 ambulatory Kristi Watts RN General Surgery Start: 09-21-2024 End: 09-21-2024 Preprocedural examination done Kristi Watts RN [facility] Start: 09-20-2024 End: 09-20-2024 Bamboo flowsheet Ran Osullivan DPM Work Phone: [facility] Start: 09-20-2024 End: 09-20-2024 Bamboo flowsheet Ran Osullivan DPM Work Phone: [facility] Start: 09-20-2024 End: 09-20-2024 ambulatory RAN OSULLIVAN Not Available Start: 09-20-2024 End: 09-20-2024 Office outpatient visit 15 minutes Ran Osullivan DPM Work Phone: [facility] Comment on above: Sinus tarsitis of ri ght foot (Primary Dx); Other specified disorders of synovium, right ankle and foot Start: 09-14-2024 End: 09-14-2024 ambulatory [facility] Work Phone: Start: 09-14-2024 End: 09-14-2024 Patient encounter procedure [facility] Work Phone: Start: 09-12-2024 End: 09-12-2024 Telephone encounter Kristi Watts RN General Surgery Comment on above: Results Start: 09-03-2024 End: 09-03-2024 Bamboo flowsheet Ran Osullivan DPM Work Phone: [facility] Start: 09-03-2024 End: 09-03-2024 Bamboo flowsheet Ran Osullivan DPM Work Phone: [facility] Start: 09-03-2024 End: 09-03-2024 ambulatory RAN OSULLIVAN Not Available Start: 09-03-2024 End: 09-03-2024 Office outpatient new 30 minutes Ran Osullivan DPM Work Phone: [facility] Comment on above: Other specified diso rders of synovium, right ankle and foot (Primary Dx); Sinus tarsitis of right foot Start: 09-01-2024 End: 09-01-2024 ambulatory SHARON HELM Facility:[facility] Start: 08-22-2024 End: 08-22-2024 Telephone encounter Sharon Helm PhD Work Phone: General Surgery BMI PSY Comment on above: Patient Update Start: 08-17-2024 End: 08-17-2024 ambulatory AFRICA HALL Not Available Start: 08-17-2024 End: 08-17-2024 Patient encounter procedure Africa ALBERTO Work Phone: [facility] Comment on above: Ankle joint instabil ity, right (Primary Dx); Sinus tarsi syndrome of right ankle; Posterior tibial tendinitis of right lower extremity Start: 08-17-2024 End: 08-17-2024 ambulatory AFRICA HALL Not Available Start: 08-15-2024 End: 08-21-2024 Admission to same day surgery center Raine Grissom MD Work Phone: General Surgery Comment on above: Sleep Study Complete d Start: 08-15-2024 End: 08-21-2024 ambulatory Raine Grissom MD Work Phone: [facility] Work Phone: Start: 08-15-2024 End: 08-15-2024 Patient encounter procedure [facility] Work Phone: Start: 07-27-2024 End: 07-27-2024 ambulatory [facility] Facility:[facility] Start: 07-10-2024 End: 07-10-2024 Bamboo flowsheet Africa D [place] PA Work Phone: [facility] Start: 07-10-2024 End: 07-10-2024 Bamboo flowsheet Africa D [place] PA Work Phone: [facility] Start: 07-10-2024 End: 07-10-2024 ambulatory AFRICA D HILLS Not Available Start: 07-10-2024 End: 07-10-2024 Patient encounter procedure Africa D [place] PA Work Phone: [facility] Comment on above: 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); Moderate right ankle sprain, sequela Start: 07-02-2024 End: 07-03-2024 ambulatory [facility] Facility:[facility] Start: 06-29-2024 End: 07-10-2024 Chart abstracting [facility] Main Work Phone: Neurology Start: 06-22-2024 End: 06-22-2024 ambulatory AFRICA D MOISÉS Not Available Start: 06-21-2024 End: 06-21-2024 ambulatory RAINE GRISSOM Facility:[facility] Start: 06-20-2024 End: 06-20-2024 Bamboo flowsheet Africa D [place] PA Work Phone: [facility] Start: 06-20-2024 End: 06-20-2024 Bamboo flowsheet Africa D [place] PA Work Phone: [facility] Start: 06-20-2024 End: 06-20-2024 Patient encounter procedure Africa D [place] PA Work Phone: [facility] Comment on above: Pain and swelling of right lower leg (Primary Dx); Ankle joint instability, right; Pain of right calf Start: 06-20-2024 End: 06-20-2024 ambulatory AFRICA HALL Not Available Start: 06-19-2024 End: 06-19-2024 ambulatory Wilber More IMMIGRATION SPECIALIST-BC Work Phone: [facility] Work Phone: Start: 06-19-2024 End: 06-19-2024 Patient encounter procedure Wilber More IMMIGRATION SPECIALIST-BC Work Phone: [facility] Work Phone: Start: 06-15-2024 End: 06-15-2024 Patient encounter status Xr Tere clark Start: 06-15-2024 End: 06-15-2024 Subsequent hospital visit by physician Xr [facility] Comment on above: Morbid obesity due t o excess calories (HCC) [E66.01] Start: 06-15-2024 End: 06-15-2024 ambulatory [facility] Facility:[facility] Start: 06-15-2024 Non-patient / Non-visit Wilber More IMMIGRATION SPECIALIST-BC Work Phone: [facility] Work Phone: Start: 06-14-2024 End: 06-14-2024 ambulatory [facility] Facility:[facility] Start: 06-08-2024 End: 06-08-2024 ambulatory Facility:[facility] Start: 06-07-2024 End: 06-07-2024 Admission to same day surgery center Lala Zuniga RD Work Phone: General Surgery Comment on above: H/O gastric sleeve ( Primary Dx); Obesity, Class III, BMI 40-49.9 (morbid obesity) (HCC); Dietary counseling and surveillance Start: 06-07-2024 End: 06-07-2024 ambulatory [facility] Facility:[facility] Start: 06-07-2024 End: 06-07-2024 Telemedicine consultation with patient Lala Zuniga RD Work Phone: General Surgery Start: 06-01-2024 End: 06-01-2024 Orders Only Raine Grissom MD Work Phone: General Surgery Comment on above: Preoperative examina tion (Primary Dx) Start: 06-01-2024 End: 06-01-2024 Preprocedural examination done Raine Grissom MD Work Phone: [facility] Work Phone: Start: 05-24-2024 End: 05-24-2024 Admission to same day surgery center Renetta Ruano MD Work Phone: [facility] Comment on above: Morbid obesity due t o excess calories (HCC) (Primary Dx); S/P bariatric surgery; Preoperative testing; Snoring; Other fatigue; Morbid obesity with BMI of 40.0-44.9, adult (HCC) Start: 05-24-2024 End: 05-24-2024 ambulatory RAINE GRISSOM Facility:[facility] Start: 05-24-2024 Encounter for other preprocedural examination RENETTA RUANO [facility] Start: 05-24-2024 End: 05-24-2024 Patient encounter status Renetta Ruano MD Work Phone: [facility] Start: 05-24-2024 End: 05-24-2024 Telemedicine consultation with patient Renetta Ruano MD Work Phone: [facility] Start: 05-24-2024 End: 05-24-2024 ambulatory IMMIGRATION SPECIALIST-BC Wilber T Shammo Work Phone: [facility] Work Phone: Start: 05-24-2024 End: 05-24-2024 Patient encounter procedure IMMIGRATION SPECIALIST-BC Wilber Shammo Work Phone: [facility] Work Phone: Start: 05-17-2024 End: 05-17-2024 Telephone encounter Kristi Watts RN General Surgery Comment on above: Patient Update; pt u pdate Start: 05-14-2024 End: 05-14-2024 Admission to same day surgery center Raine Grissom MD Work Phone: General Surgery Comment on above: Body mass index 40.0 -44.9, adult (HCC) (Primary Dx) Start: 05-14-2024 End: 05-14-2024 ambulatory RAINE GRISSOM Facility:[facility] Start: 05-14-2024 End: 05-14-2024 Telemedicine consultation with patient Raine Grissom MD Work Phone: General Surgery Start: 05-10-2024 End: 05-10-2024 ambulatory Felipe Quiñones Facility:[facility] Start: 05-10-2024 End: 05-10-2024 Patient encounter procedure IMMIGRATION SPECIALIST-BC Wilbertea Leachkelby Work Phone: [facility] Work Phone: Start: 04-24-2024 End: 04-24-2024 ambulatory ROCIO JEFF Facility:[facility] Start: 04-24-2024 End: 04-24-2024 Patient encounter procedure Raine Grissom MD Work Phone: General Surgery Comment on above: Gastroesophageal ref lux disease, unspecified whether esophagitis present Start: 04-18-2024 End: 04-18-2024 Telephone encounter Kristi Watts RN General Surgery Comment on above: Patient Update Start: 04-16-2024 End: 04-16-2024 ambulatory SELF Facility:[facility] Start: 04-16-2024 End: 04-16-2024 Patient encounter procedure Rocio Jeff MD Work Phone: General Surgery Comment on above: Gastroesophageal ref lux disease, unspecified whether esophagitis present (Primary Dx); Incisional hernia, without obstruction or gangrene Start: 04-11-2024 End: 04-11-2024 Telephone encounter Hilda Kitchen LPN Work Phone: General Surgery Start: 03-20-2024 End: 03-20-2024 Admission to same day surgery center Lala Contreras APRN.VEST PRESSER Work Phone: General Surgery Start: 03-20-2024 End: 03-20-2024 ambulatory Lala Contreras APRN.VEST PRESSER Work Phone: General Surgery Start: 03-13-2024 End: 03-13-2024 ambulatory ELISABETH BECKMAN Facility:[facility] [place] Start: 03-13-2024 End: 03-13-2024 Patient encounter procedure King LI [facility] General Surgery [place] Start: 03-08-2024 ambulatory WILBER SHAMMO Facility:[facility] [place] Start: 03-02-2024 ambulatory WILBER SHAMMO Facility:[facility] Start: 02-28-2024 End: 02-28-2024 ambulatory IMMIGRATION SPECIALIST-BC Wilber T Shammo Work Phone: [facility] Work Phone: Start: 02-28-2024 End: 02-28-2024 Patient encounter procedure IMMIGRATION SPECIALIST-BC Wilber Shammo Work Phone: [facility] Work Phone: Start: 01-05-2024 End: 01-05-2024 ambulatory KASSANDRA DOMINIC Not Available Start: 12-19-2023 End: 12-19-2023 ambulatory KASSANDRA DOMINIC Not Available Start: 12-12-2023 End: 12-12-2023 ambulatory IMMIGRATION SPECIALIST-BC Wilber T Shammo Work Phone: [facility] Work Phone: Start: 12-12-2023 End: 12-12-2023 Departed Referred IMMIGRATION SPECIALIST-BC Wilber Shammo Work Phone: [facility] Start: 12-08-2023 End: 12-08-2023 ambulatory ADRIAN MYRIAM Not Available Start: 11-30-2023 End: 11-30-2023 ambulatory KASSANDRA DOMINIC Not Available Start: 11-15-2023 End: 11-15-2023 ambulatory ADRIAN MYRIAM Not Available Start: 11-02-2023 End: 11-02-2023 ambulatory [facility] Start: 11-02-2023 End: 11-02-2023 Office outpatient visit 15 minutes Fred Chavez MD Work Phone: Maternal- Medicine at [facility] Comment on above: Essential hypertensi on affecting in second trimester (Primary Dx) Start: 10-31-2023 End: 10-31-2023 ambulatory KASSANDRA ALFARO Not Available Start: 10-18-2023 End: 10-19-2023 ambulatory [facility] Start: 10-18-2023 Documentation procedure Fred Chavez MD Work Phone: Maternal- Medicine at [facility] Start: 10-13-2023 End: 10-13-2023 ambulatory ADRIAN MYRIAM Not Available Start: 09-22-2023 End: 09-23-2023 ambulatory ADRIAN R [facility] Comment on above: Pre-existing essenti al hypertension during in second trimester (Primary Dx); Advanced maternal age in multigravida, second trimester; Hypothyroid in , antepartum Start: 09-22-2023 End: 09-22-2023 Office consultation new/estab patient 60 min Héctor Gonzalez MD Work Phone: Maternal Medicine at [facility] Comment on above: Essential hypertensi on [...] Bee MD Work Phone: Maternal- Medicine at [facility] Start: 08-19-2023 Telephone encounter Janae Jiménez [facility] [place] Start: 08-18-2023 End: 08-18-2023 ambulatory ADRIAN MYRIAM Not Available Start: 08-03-2023 ambulatory WILBER SHAMMO Facility:[facility] Start: 07-21-2023 End: 07-21-2023 ambulatory KASSANDRA ALFARO Not Available Start: 06-13-2023 End: 06-13-2023 ambulatory ADRIAN OROZCOO Not Available Start: 05-19-2023 End: 05-19-2023 ambulatory Denys Gallego Other [employer] Other Start: 05-19-2023 Office outpatient vi sit 15 minutes Denys Gallego [facility] Start: 03-15-2023 End: 03-15-2023 Admission to same day surgery center [facility] Wilber Shammo Work Phone: [facility] Work Phone: Start: 03-15-2023 End: 03-15-2023 ambulatory [facility] Wilber More Work Phone: [facility] Work Phone: Start: 01-26-2023 End: 01-26-2023 Lab Drop off Alyson Chiu [facility] Start: 01-26-2023 End: 01-26-2023 Patient encounter procedure Alyson Chiu [facility] Start: 01-17-2023 End: 01-17-2023 ambulatory Denys Gallego Other [employer] Other Start: 01-17-2023 Office outpatient ne w 45 minutes Denys Gallego [facility] Start: 12-28-2022 End: 12-28-2022 ambulatory LUKE KWAN . Facility:[facility] Start: 10-16-2022 End: 10-17-2022 ambulatory WILBER SHAMMO Facility:[facility] Start: 08-25-2022 Encounter for genera l adult medical examination without abnormal findings WILBER SHAMMO [facility] Start: 08-20-2022 End: 08-21-2022 ambulatory WILBERTEA LEACHNC Facility:[facility] Start: 08-20-2022 End: 08-21-2022 Encounter for general adult medical examination without abnormal findings WILBER MORE Facility: Procedures Date Procedure Procedure Detail Performing Clinician Start: 11-06-2024 Antibody screen Comment on above: Order Comment: Specimen Type: BLOOD SPEC IMENOrdering Facility: [facility] Address: [address] [place] [address] Performed By: #### T [id number] ####CC MAIN BLOOD BANKCLIA [id number] [address] Start: 08-17-2024 Radex ankle complete minimum 3 views Africa ALBERTO Work Phone: Start: 06-21-2024 Adult depression screening assessment Sleep Main Work Phone: Start: 06-15-2024 Radiologic exam chest 2 views Renetta Ruano MD Work Phone: Start: 09-15-2023 Urnls dip stick/tablet rgnt non-auto w/o micrscp Kassandra ALBERTO Work Phone: Start: 06-08-2023 FREE CELL DNA (NON-[facility]) Not In System Ref Prov Start: 03-15-2023 Esophagogastroduodenoscopy IMMIGRATION SPECIALIST-BC Wilber More Work Phone: Start: 08-01-2016 Appendectomy Alyson Lue Start: 08-01-2016 Gastric sleeve Alyson Lue Start: 08-01-2005 Cholecystectomy Alyson Lue Arthroplasty of knee Alyson L ue Comment on above: Meniscus repair section Alyson Lue Comment on above: x2 section King NIL L Repair of meniscus King N ILL Plan of Treatment Date Care Activity Detail Author Start: 12-28-2025 BP Controlled (<130/80) BP Controlled (<130/80) [facility] Start: 06-21-2025 Anxiety Screening Anxiety Screening [facility] Start: 06-21-2025 Depression Screening Depression Screening [facility] Start: 04-01-2025 Influenza vaccination [facility] Start: 02-26-[address] [facility] Work Phone: Start: 02-19-2025 End: 02-19-2025 Admission to same day surgery center 02/19/2025 1:30 PM EDT Education General Surgery [address] [place] [address] Carlo Mckeon, RD [address] [place] [address] post op three months/ gastric bypass 11/23/2024 General Surgery Comment on above: post op three months/ gastric bypass Start: 02-18-2025 End: 02-18-2025 Patient encounter procedure 02/18/2025 11:30 AM EDT [facility] [address] [place] [address] Renetta Ruano MD [address] [place] [address] post op three months/ gastric bypass 11/23/2024 BMI [facility] Comment on above: post op three months/ gastric bypass Start: 02-11-2025 End: 02-11-2025 Patient encounter procedure 02/11/2025 11:30 AM EDT [facility] BMI [facility] [address] [place] [address] Renetta Ruano MD [address] [place] [address] post op three months/ gastric bypass 11/23/2024 BMI [facility] Comment on above: post op three months/ gastric bypass Start: 12-21-2024 End: 12-21-2024 Admission to same day surgery center General Surgery Comment on above: post op one month/ gastric bypass 2024 Start: 12-14-2024 End: 12-14-2024 Patient encounter procedure 12/14/2024 11:00 AM EDT Office Visit General Surgery [address] [address] Ginger Silveira APRN.VEST PRESSER [address] [address] Post Op Wound Check General Surgery Comment on above: Post Op Wound Check Start: 12-05-2024 End: 12-05-2024 Patient encounter procedure 12/05/2024 11:00 AM EDT Office Visit General Surgery [address] [address] Ginger Silveira APRN.VEST PRESSER [address] [address] right sanjuanita drain removal General Surgery Comment on above: right sanjuanita drain removal Start: 12-05-2024 End: 12-05-2024 ambulatory 12/05/2024 8:30 AM EDT Education BMI [place] [address] [place] [address] [place] [address] post op refresher BMI [place] Comment on above: post op refresher Start: 11-30-2024 End: 11-30-2024 Admission to same day surgery center 11/30/2024 1:20 PM EDT [facility] General Surgery [address] [place] [address] Raine Grissom MD [address] [place] [address] post op 7-10 day/ hernia 11/23/2024 General Surgery Comment on above: post op 7-10 day/ hernia 11/23/2024 Start: 11-23-2024 End: 11-23-2024 Admission to same day surgery center Admitting Comment on above: HERNIORRHAPHY INCISIONAL ABDOMINAL RECUR RENT REDUCIBLE GREATER THAN 10cm Start: 11-23-2024 End: 11-23-2024 HERNIORRHAPHY INCISIONAL ABDOMINAL RECURRENT REDUCIBLE GREATER THAN 10cm HERNIORRHAPHY INCISIONAL ABDOMINAL RECURRENT REDUCIBLE GREATER THAN 10cm Preoperative examination Hiatal hernia Morbid obesity (HCC) 11/23/2024 10:15 AM EDT [facility] Start: 11-23-2024 End: 11-23-2024 Laps gstr rstcv px w/byp becki-en-y limb <150 cm LAPAROSCOPIC GASTRIC RESTRICTIVE SURG W/ BYPASS & BECKI-EN-Y 150CM OR LESS Preoperative examination Hiatal hernia Morbid obesity (HCC) 11/23/2024 10:15 AM EDT [facility] Start: 11-23-2024 End: 11-23-2024 Laps rpr paraesphgl hrna incl fundplsty w/mesh LAPAROSCOPIC RPR PARAESOPHAGEAL HERNIA W/O FUNDOPLASTY W/ MESH Preoperative examination Hiatal hernia Morbid obesity (HCC) 11/23/2024 10:15 AM EDT [facility] Start: 11-23-2024 Subsequent hospital visit by physician Admitting Comment on above: Preoperative examination [Z01.818], Hiat al hernia [K44.9], Morbid obesity (HCC) [E66.01] Start: 11-18-2024 Subsequent hospital visit by physician 11/18/2024 Hospital Encounter Admitting [address] [place] [address] Raine Grissom MD [address] [place] [address] Morbid obesity (HCC) [E66.01], Hiatal hernia [K44.9], Preoperative examination [Z01.818] Admitting Comment on above: Morbid obesity (HCC) [E66.01], Hiatal he rnia [K44.9], Preoperative examination [Z01.818] Start: 2024 End: 2024 Clinical Support 2024 1:10 PM EDT Clinical Support [facility] [address] [place] [id number] Ran Osullivan DPM [address] [facility], [place] [address] [place] [address] Other specified disorders of synovium, right ankle and foot (Primary Dx); Sinus tarsitis of right foot; Contracture of left ankle [facility] Comment on above: Other specified disorders of synovium, r ight ankle and foot (Primary Dx); Sinus tarsitis of right foot; Contracture of left ankle Start: 10-22-2024 End: 02-27-2025 aPTT in Platelet poor plasma by Coagulation assay ACTIVATED PARTIAL THROMBOPLASTIN TIME Lab Routine Preoperative examination Hiatal hernia Morbid obesity (HCC) Expected: 10/22/2024, Expires: 02/27/2025 [facility] Comment on above: Expected: 10/22/2024, Expires: Start: 10-22-2024 End: 02-27-2025 CBC W Auto Differential panel - Blood COMPLETE BLOOD COUNT AND DIFFERENTIAL Lab Routine Preoperative examination Hiatal hernia Morbid obesity (HCC) Expected: 10/22/2024, Expires: 02/27/2025 [facility] Comment on above: Expected: 10/22/2024, Expires: Start: 10-22-2024 End: 02-27-2025 Comprehensive metabolic 2000 panel - Serum or Plasma COMPREHENSIVE METABOLIC PANEL Lab Routine Preoperative examination Hiatal hernia Morbid obesity (HCC) Expected: 10/22/2024, Expires: 02/27/2025 [facility] Comment on above: Expected: 10/22/2024, Expires: Start: 10-22-2024 End: 02-27-2025 PT panel - Platelet poor plasma by Coagulation assay PROTHROMBIN TIME Lab Routine Preoperative examination Hiatal hernia Morbid obesity (HCC) Expected: 10/22/2024, Expires: 02/27/2025 [facility] Comment on above: Expected: 10/22/2024, Expires: Start: 10-22-2024 End: 02-27-2025 TYPE AND SCREEN,30 DAY TYPE AND SCREEN,30 DAY Blood Bank Routine Preoperative examination Hiatal hernia Morbid obesity (HCC) Expected: 10/22/2024, Expires: 02/27/2025 [facility] Comment on above: Expected: 10/22/2024, Expires: Start: 10-07-2024 Subsequent hospital visit by physician 10/07/2024 Hospital Encounter Admitting [address] [place] [address] Raine Grissom MD [address] [place] [address] Morbid obesity (HCC) [E66.01], Hiatal hernia [K44.9], Preoperative examination [Z01.818] Admitting Comment on above: Morbid obesity (HCC) [E66.01], Hiatal he rnia [K44.9], Preoperative examination [Z01.818] Start: 10-04-2024 Subsequent hospital visit by physician 10/04/2024 Hospital Encounter Admitting [address] [place] [address] Raine Grissom MD [address] [place] [address] Morbid obesity (HCC) [E66.01], Hiatal hernia [K44.9], Preoperative examination [Z01.818] Admitting Comment on above: Morbid obesity (HCC) [E66.01], Hiatal he rnia [K44.9], Preoperative examination [Z01.818] Start: 09-22-2024 Adult BMI Screening Adult BMI Screening [facility] Start: 09-22-2024 Tobacco Screening Tobacco Screening [facility] Start: 09-22-2024 End: 09-22-2024 US MFM with or without consult US MFM with or without consult Imaging Routine Pre-existing essential hypertension during in second trimester Advanced maternal age in multigravida, second trimester Hypothyroid in , antepartum Expected: 09/22/2024 (Approximate), Expires: 09/22/2024 [facility] Work Phone: Comment on above: Expected: 09/22/2024 (Approximate), Expi res: 09/22/2024 Start: 09-20-2024 End: 09-20-2024 Patient encounter procedure 09/20/2024 9:40 AM EST Office Visit [facility] [address] [facility] [address] [place] [address] Ran Osullivan, DPHoward [address] [facility] [place] [address] [place] [address] [facility] Start: 08-21-2024 End: 11-20-2024 NICOTINE & METAB, UR NICOTINE & METAB, UR Lab Routine Nicotine dependence in remission, unspecified nicotine product type Expected: 08/21/2024, Expires: 11/20/2024 [facility] Work Phone: Comment on above: Expected: 08/21/2024, Expires: Start: 06-21-2024 End: 06-21-2024 Professional / ancillary services management 06/21/2024 3:00 PM EST Ancillary Procedure [facility] [address] [facility] [address] [place] [id number] [facility] Start: 06-20-2024 End: 06-20-2025 US.doppler Lower extremity vein - right Vascular US lower extremity venous duplex right Imaging Routine Pain and swelling of right lower leg Expected: 06/20/2024, Expires: 06/20/2025 [facility] Work Phone: Comment on above: Expected: 06/20/2024, Expires: Start: 06-20-2024 End: 06-20-2024 Patient encounter procedure 06/20/2024 9:45 AM EST Office Visit [facility] [address] [place] [address] Africa Hall PA [address] [address] Arrived [facility] Comment on above: Arrived Start: 06-08-2024 End: 06-08-2024 Patient encounter procedure 06/08/2024 2:20 PM EST Office Visit [employer] Phone Screening [place] [address] Chest XRay and Lab Work [employer] Phone Screening Comment on above: Chest XRay and Lab Work Start: 06-07-2024 End: 06-07-2024 Admission to same day surgery center 06/07/2024 1:15 PM EST [facility] General Surgery [address] [place] [id number] Lala Zuniga, RD [address] [place] [id number] Purple/Praveena/0 Diet/ General Surgery Comment on above: Purple/Praveena/0 Diet/ Start: 06-01-2024 End: 08-31-2024 NICOTINE & METAB, UR NICOTINE & METAB, UR Lab Routine Preoperative examination Expected: 06/01/2024, Expires: 08/31/2024 [facility] Work Phone: Comment on above: Expected: 06/01/2024, Expires: Start: 05-10-2024 [facility] Start: 04-24-2024 End: 04-24-2024 Patient encounter procedure 04/24/2024 9:00 AM EDT Office Visit General Surgery [address] [place] [address] Raine Grissom MD [address] [place] [address] K21.9 (ICD-10-CM) - Gastroesophageal reflux disease, unspecified whether esophagitis present General Surgery Comment on above: K21.9 (ICD-10-CM) - Gastroesophageal ref lux disease, unspecified whether esophagitis present Start: 04-16-2024 End: 04-16-2024 Patient encounter procedure General Surgery Comment on above: Ventral wall mass & abdominal wall herni a PT TO BRING IMAGING FOR APPT/CT A/P 03/29/24 Start: 04-01-2024 Covid-19 Vaccine ( season) Covid-19 Vaccine () [facility] Start: 04-01-2024 Covid-19 Vaccine () Covid-19 Vaccine ( season) [facility] Start: 04-01-2024 Influenza vaccination [facility] Start: 02-28-[address] [facility] Work Phone: Start: 11-12-2023 Adult BMI Screening Adult BMI Screening [facility] Start: 11-02-2023 End: 11-02-2023 Telemedicine consultation with patient 11/02/2023 11:30 AM EDT Telemedicine Maternal- Medicine at [address] [id number] Fred Chavez MD [address] [place] [address] Hcétor Gonzalez MD [address] [facility] [address] [place] [address] Maternal- Medicine at [facility] Start: 10-18-2023 End: 10-18-2023 Telemedicine consultation with patient 10/18/2023 1:30 PM EDT Telemedicine Maternal- Medicine at [address] [place] [id number] Fred Chavez MD [address] [place] [address] Maternal- Medicine at [facility] Start: 10-18-2023 End: 10-18-2023 Patient encounter procedure 10/18/2023 12:30 PM EDT Appointment [facility] - Ultrasound [address] [place] [id number] [facility] - Ultrasound Start: 10-13-2023 End: 10-13-2023 Patient encounter procedure 10/13/2023 10:50 AM EDT Routine [facility] [address] [place] [id number] Adrian Kerr, DO [address] [place] [address] [place] [address] [facility] Start: 09-15-2023 End: 09-15-2024 CBC panel - Blood by Automated count CBC Lab Routine Diabetes mellitus screening Expected: 09/15/2023 (Approximate), Expires: 09/15/2024 [facility] Work Phone: Comment on above: Expected: 09/15/2023 (Approximate), Expi res: 09/15/2024 Start: 09-15-2023 End: 09-15-2024 Measurement of glucose 1 hour after glucose challenge for glucose tolerance test Glucose tolerance, 1 hour Lab Routine Diabetes mellitus screening Expected: 09/15/2023 (Approximate), Expires: 09/15/2024 [facility] Comment on above: Expected: 09/15/2023 (Approximate), Expi res: 09/15/2024 Start: 09-15-2023 End: 09-15-2024 Thyrotropin [Units/volume] in Serum or Plasma TSH Lab Routine Hypothyroidism, unspecified type (CMS/HCC) Expected: 09/15/2023 (Approximate), Expires: 09/15/2024 [facility] Comment on above: Expected: 09/15/2023 (Approximate), Expi res: 09/15/2024 Start: 09-14-2023 End: 09-14-2023 Patient encounter procedure [facility] Start: 04-01-2023 Covid-19 Vaccine ( season) Covid-19 Vaccine ( season) [facility] Start: 04-01-2023 Influenza vaccination Influenza Vaccine [facility] Start: 03-15-2023 [facility] Start: 11-02-2007 Screening for malignant neoplasm of cervix [facility] Start: 2005 DTaP,Tdap and Td Vaccines (1 - Tdap) DTaP,Tdap and Td Vaccines (1 - Tdap) [facility] Start: 2005 Hepatitis B Vaccine (1 of 3 - 19+ 3-dose series) Hepatitis B Vaccine (1 of 3 - 19+ 3-dose series) [facility] Start: 2005 Urine microalbumin profile DTaP,Tdap,Td Vaccine (1 - Tdap) [facility] Start: 2004 Adult BMI Follow Up Plan Adult BMI Follow Up Plan [facility] Start: 2004 Annual PCP Team Chronic Disease Visit Annual PCP Team Chronic Disease Visit [facility] Start: 2004 Anxiety Screening Anxiety Screening [facility] Start: 2004 BP Controlled (<130/80) BP Controlled (<130/80) [facility] Start: 2004 Depression Screening Depression Screening [facility] Start: 2004 Hepatitis C screening Hepatitis C Screening [facility] Start: 2004 HIV screening HIV Screening [facility] Start: 1998 Depression Screening Depression Screening [facility] Start: 1998 Tobacco Screening Tobacco Screening [facility] Start: 1992 Pneumococcal vaccination Pneumococcal Vaccine (1 of 2 - PCV) [facility] Comprehensive metabo lic 2000 panel - Serum or Plasma [facility] End: 02-24-2026 CT Abdomen and Pelvis WO contrast CT ABD/PEL WO IVCON Radiology Routine Postoperative visit S/P hernia repair 1 Occurrences starting 01/25/2025 until 02/24/2026 [facility] Work Phone: Comment on above: 1 Occurrences starting 01/25/2025 until 02/24/2026 End: 09-28-2025 ECG COMPLETE ECG COMPLETE ECG Routine Preoperative examination Hiatal hernia Morbid obesity (HCC) 1 Occurrences starting 10/01/2024 until 09/28/2025 [facility] Comment on above: 1 Occurrences starting 10/01/2024 until 09/28/2025 Hemoglobin A1c/Hemoglobin.total in Blood Hemoglobin A1c Lab Routine Diabetes mellitus screening Ordered: 09/15/2023 [facility] Comment on above: Ordered: 09/15/2023 HERNIORRHAPHY INCISI ONAL ABDOMINAL RECURRENT REDUCIBLE GREATER THAN 10cm HERNIORRHAPHY INCISIONAL ABDOMINAL RECURRENT REDUCIBLE GREATER THAN 10cm Preoperative examination Hiatal hernia Morbid obesity (HCC) [facility] End: 05-24-2025 HOME SLEEP APNEA TEST (HSAT) HOME SLEEP APNEA TEST (HSAT) Procedures Routine Morbid obesity due to excess calories (HCC) S/P bariatric surgery Preoperative testing Snoring Other fatigue Morbid obesity with BMI of 40.0-44.9, adult (HCC) 1 Occurrences starting 05/24/2024 until 05/24/2025 [facility] Comment on above: 1 Occurrences starting 05/24/2024 until 05/24/2025 Laps gstr rstcv px w /byp becki-en-y limb <150 cm LAPAROSCOPIC GASTRIC RESTRICTIVE SURG W/ BYPASS & BECKI-EN-Y 150CM OR LESS Morbid obesity (HCC) Hiatal hernia Preoperative examination [facility] Laps gstr rstcv px w /byp becki-en-y limb <150 cm LAPAROSCOPIC GASTRIC RESTRICTIVE SURG W/ BYPASS & BECKI-EN-Y 150CM OR LESS Preoperative examination Hiatal hernia Morbid obesity (HCC) [facility] Laps rpr paraesphgl hrna incl fundplsty w/mesh LAPAROSCOPIC RPR PARAESOPHAGEAL HERNIA W/O FUNDOPLASTY W/ MESH Morbid obesity (HCC) Hiatal hernia Preoperative examination [facility] Laps rpr paraesphgl hrna incl fundplsty w/mesh LAPAROSCOPIC RPR PARAESOPHAGEAL HERNIA W/O FUNDOPLASTY W/ MESH Preoperative examination Hiatal hernia Morbid obesity (HCC) [facility] Patient Education Hiatal hernia Diverticulosis [facility] Work Phone: Patient referral [facility] Work Phone: REFER FOR ADMIT INTERVIEW REFER FOR ADMIT INTERVIEW Procedures Routine Preoperative examination Hiatal hernia Morbid obesity (HCC) Ordered: 10/01/2024 [facility] Work Phone: Comment on above: Ordered: 10/01/2024 XR Ankle - right GE 3 Views [facility] End: 06-23-2025 XR Chest PA and Lateral XR CHEST 2V FRONTAL/LAT Radiology Routine Morbid obesity due to excess calories (HCC) S/P bariatric surgery Preoperative testing Snoring Other fatigue Morbid obesity with BMI of 40.0-44.9, adult (HCC) 1 Occurrences starting 05/24/2024 until 06/23/2025 [facility] Work Phone: Comment on above: 1 Occurrences starting 05/24/2024 until 06/23/2025 [facility] Immunizations Immunization Date Immunization Notes Care Provider Fa cility 06-01-2022 influenza virus vaccine, unspecified formulation Alyson Chiu [facility] 06-01-2022 influenza, seasonal, injectable IMMIGRATION SPECIALIST-BC Wilber More Work Phone: [facility] Payers Date Payer Category Payer Managed Care HMO (unspecified) [id number] 08-01-2024 Private Health Insurance [id number] 08-01-2024 Private Health Insurance [id number] 12-12-2023 Self-pay 08-01-2023 Unknown EAST [id number] 08/01/2023-Present [phone] [address] [place] [address] Indemnity [id number] 08-01-2023 [employer] ( and others) [id number] 08-01-2022 [employer] ( and others) [id number] 06-30-2022 Government (not [facility] care or Medicaid) [id number] 06-30-2022 () [id number] 06-30-2022 [employer] ( and others) [id number] 06-01-2022 [employer] ( and others) [id number] 06-01-2022 [facility] ( and others) [id number] 1985 Unknown [id number] 2.16.840.1.608754.3.579.2 .593 1986 Unknown [id number] 2.16.840.1.273110.3.579.2 .593 1986 Unknown [id number] 2.16.840.1.791590.3.579.2 .593 1986 Unknown [id number] 2.16.840.1.080160.3.579.2 .1286 1986 Unknown [id number] 2.16.840.1.978832.3.579.2 .1286 1986 Unknown [id number] 2.16.840.1.086680.3.579.2 .1286 1986 Unknown [id number] 2.16.840.1.515438.3.579.2 .1286 1986 Unknown [id number] 2.16.840.1.318370.3.579.2 .1259 1986 Unknown [id number] 2.16.840.1.054552.3.579.2 .9 1986 Unknown [id number] 2.16.840.1.838549.3.579.2 .1259 1986 Unknown [id number] 2.16.840.1.330956.3.579.2 .9 1986 Unknown [id number] 2.16.840.1.522847.3.579.2 .1259 1986 Unknown [id number] 2.16.840.1.148824.3.579.2 .9 1986 Unknown [id number] 2.16.840.1.842073.3.579.2 .9 1986 Unknown [id number] 2.16.840.1.384076.3.579.2 .9 1986 Unknown [id number] 2.16.840.1.067607.3.579.2 .1258 1986 Unknown [id number] 2.16.840.1.144409.3.579.2 .1258 1986 Unknown [id number] 2.16.840.1.513915.3.579.2 .1258 1986 Unknown [id number] 2.16.840.1.586662.3.579.2 .1986 Unknown [id number] 2.16.840.1.789702.3.579.2 .1986 Unknown [id number] 2.16.840.1.802344.3.579.2 .1258 1986 Unknown [id number] 2.16.840.1.068276.3.579.2 .1258 1986 Unknown [id number] 2.16.840.1.987758.3.579.2 .1258 1986 Unknown [id number] 2.16.840.1.219381.3.579.2 .1258 1986 Unknown [id number] 2.16.840.1.872551.3.579.2 .1258 1986 Unknown [id number] 2.16.840.1.762775.3.579.2 .1258 1986 Unknown [id number] 2.16.840.1.784248.3.579.2 .1258 1986 Unknown [id number] 2.16.840.1.757684.3.579.2 .1258 1986 Unknown [id number] 2.16.840.1.497109.3.579.2 .1258 1986 Unknown [id number] 2.16.840.1.699487.3.579.2 .1258 1986 Unknown [id number] 2.16.840.1.184952.3.579.2 .1258 1986 Unknown [id number] 2.16.840.1.439290.3.579.2 .1259 08-01-1958 [employer] ( and others) [id number] Unknown [id number] 2.16.840.1.200536.3.579.2 .531 Unknown [id number] 2.16.840.1.872398.3.579.2 .531 Social History Date Type Detail Facility Start: 07-20-2023 End: 2024 Sex Assigned At [facility] Start: 01-26-2023 End: 05-10-2024 Tobacco smoking status Ex-smoker (finding) [facility] Start: 03-15-2023 Tobacco smoking status NHIS Smoker (finding) [facility] Start: 1985 Sex Assigned At Female [facility] Start: 01-03-2023 End: 04-24-2024 Tobacco smoking status NHIS Never smoked tobacco [facility] Start: 01-03-2023 End: 03-13-2024 Tobacco use and exposure Smokeless tobacco non-user [facility] Start: 09-15-2023 End: 02-25-2025 Alcohol intake Ex-drinker (finding) [facility] Start: 07-20-2023 End: 2024 History of Social function [facility] How often to you hav e a drink containing alcohol? Monthly or less [facility] How many standard drinks containing alcohol do you have on a typical day? 1 or 2 [facility] How often do you hav e 6 or more drinks on 1 occasion? Never [facility] Start: 01-03-2023 Alcohol Comment caffeine: 1-2 cups per day [facility] Start: 04-11-2023 [facility] Start: 01-05-2023 Gender identity Identifies as female gender (finding) [facility] Tobacco smoking stat us NHIS Tobacco smoking consumption unknown [facility] Work Phone: Start: 1985 Sex assigned at Not on file [facility] Start: 11-02-2023 Sexual orientation Heterosexual (finding) [facility] Start: 04-16-2024 Tobacco smoking status NHIS Smokes tobacco daily [facility] History of tobacco use Pipe Smoker [facility] National Score (1-10 0), lower number is lower risk 74 [facility] Start: 04-24-2024 Tobacco use and exposure User of smokeless tobacco [facility] Start: 04-24-2024 Alcoholic beverage intake Lifetime non-drinker (finding) [facility] Start: 03-13-2024 End: 04-24-2024 Tobacco Comment Vape [facility] Start: 06-19-2024 End: 12-20-2024 Sex Female (finding) [facility] Start: 03-13-2024 Alcohol Comment Socially/rare [facility] Has the [employer], or water company threatened to shut off services in your home in past 12Mo No [facility] Work Phone: (I/We) worried sami er (my/our) food would run out before (I/we) got money to buy more. Never true [facility] Medical Equipment Procedure Code Equipment Code Equipment Origin al Text Equipment Identifier Dates Mesh Prolene Squ are Flat [id number] Surgical Knit Nonabsorbable Nonreactive - [id number] Start: 11-23-2024 Goals Date Patient Goal Desired Activity /State Personal health goal Personal health goal Functional Status Date Assessment Result Facility 11-27-2024 Are you deaf, or do you have serious difficulty hearing No 11/27/2024 11:51 AM Amrik Sanchez, SHABANA No [facility] 11-27-2024 Are you blind, or do you have serious difficulty seeing, even when wearing glasses No 11/27/2024 11:51 AM Amrik Sanchez, SHABANA No [facility] 11-27-2024 Do you have serious difficulty walking or climbing stairs No 11/27/2024 11:51 AM Amrik Sanchez, SHABANA [facility] 11-27-2024 Do you have difficul ty dressing or bathing No 11/27/2024 11:51 AM Amrik Sanchez, SHABANA [facility] 11-27-2024 Because of a physica l, mental, or emotional condition, do you have difficulty doing errands alone such as visiting a physician's office or shopping No 11/27/2024 11:51 AM EDT Amrik Pinto, SHABANA No [facility] 03-13-2024 Functional Status N/A [facility] [place] 01-26-2023 Functional Status No [facility] Jamin Mental Status Date Assessment Result Facility 11-27-2024 Because of a physica l, mental, or emotional condition, do you have serious difficulty concentrating, remembering, or making decisions No 11/27/2024 11:51 AM EDT Amrik Pinto, SHABANA No [facility] Clinical Notes 01-17-2023 to 02-25-2025 Ran Osullivan, FRANCISCO JAVIER - 02/25/2025 10:20 AM EDTCarlo Mckeon, VALENTINO - 02/19/2025 2:54 PM EDTTelephone Encounter - Ginger Silveira APRN.BRANDON - 01/25/2025 11:29 AM EDT Note Date & Type Note Facility 02-25-2025 History of Presen t illness Narrative Patient: Tiffani Allison : 1985 PCP: Elisabeth Beckman NP SUBJECTIVE Pt presents today for follow up of capsulitis and synovitis to the right ankle capsule Currently they rate their pain on a 1-10 scale a 5 States prior treatments of steroid injection and nsaids with positive improvement improvement in the past. States pain is aggrevated with WB. Pt presents today for follow up of capsulitis and synovitis to the right sinus tarsi and ligaments Currently they rate their pain on a 1-10 scale a 1 States prior treatments of 2nd steroid injection and nsaids with positive improvement in the PAST States pain is aggrevated with WB. Pt last seen 10/2024 and was using an ankle brace. Allergies: Allergies Allergen Reactions Penicillins Anaphylaxis and Unknown Other Reaction(s): throat swelling and hives Penicillin G Unknown Topiramate Other Reaction(s): seizures Past Medical History: Past Medical History: Diagnosis Date Arthritis Cervical disc disorder COVID-19 2019 Depression with anxiety Fracture of ankle GERD (gastroesophageal reflux disease) Hiatal hernia HTN (hypertension) Hypothyroidism (acquired) Iron deficiency anemia Kidney stones Lumbosacral disc disease Migraines Polycystic ovary syndrome 2010 Seizure (HCC) 2019 hx of hospitalization Tear of meniscus of knee Thoracic disc disease Medications: Current Outpatient Medications: acetaminophen (Tylenol) 325 MG capsule, Take 650 mg by mouth every 6 (six) hours if needed for mild pain, Disp: , Rfl: amLODIPine (Norvasc) 10 MG tablet, TAKE 1 TABLET BY MOUTH IN THE MORNING, Disp: 30 tablet, Rfl: 11 aspirin 81 MG EC tablet, Take 81 mg by mouth in the morning. (Patient not taking: Reported on 08/17/2024), Disp: , Rfl: buPROPion XL (Wellbutrin XL) 150 MG 24 hr tablet, TAKE 1 TABLET BY MOUTH IN THE MORNING DO NOT CRUSH, CHEW, OR SPLIT, Disp: 30 tablet, Rfl: 11 fluocinonide (Lidex) 0.05 % external solution, APPLY TO THE AFFECTED AREA(S) topically EVERY OTHER DAY FOR 30 DAYS, Disp: , Rfl: ibuprofen 800 MG tablet, , Disp: , Rfl: levothyroxine (Synthroid, Levoxyl) 137 MCG tablet, TAKE 1 TABLET BY MOUTH IN THE MORNING BEFORE MEALS, Disp: 6 tablet, Rfl: 3 levothyroxine (Synthroid, Levoxyl) 25 MCG tablet, TAKE 1 TABLET BY MOUTH IN THE MORNING BEFORE MEALS WITH the current dosage, Disp: 30 tablet, Rfl: 3 metoprolol succinate XL (Toprol-XL) 100 MG 24 hr tablet, TAKE 1 TABLET BY MOUTH IN THE MORNING, Disp: 30 tablet, Rfl: 11 omeprazole (PriLOSEC) [address] capsule, Take 40 mg by mouth in the morning. Take before meals., Disp: , Rfl: venlafaxine XR (Effexor XR) 37.5 MG 24 hr capsule, , Disp: , Rfl: Social History: Social History Socioeconomic History Marital status: Spouse name: Not on file Number of children: Not on file Years of education: Not on file Highest education level: Not on file Occupational History Not on file Tobacco Use Smoking status: Former Smokeless tobacco: Never Tobacco comments: Vape Vaping Use Vaping status: Never Used Substance and Sexual Activity Alcohol use: Not Currently Comment: Socially/rare Drug use: Never Sexual activity: Yes Partners: Male control/protection: Female Sterilization Other Topics Concern Not on file Social History Narrative Not on file Social Drivers of Health Financial Resource Strain: Not on file Food Insecurity: No Food Insecurity (11/26/2024) Received from [facility] Hunger Vital Sign Worried About Running Out of Food in the Last Year: Never true Ran Out of Food in the Last Year: Never true Transportation Needs: No Transportation Needs (11/26/2024) Received from [facility] PRAPARE - Transportation Lack of Transportation (Medical): No Lack of Transportation (Non-Medical): No Physical Activity: Not on file Stress: Not on file Social Connections: Not on file Intimate Partner Violence: Not on file Housing Stability: Unknown (11/26/2024) Received from [facility] Housing Stability Vital Sign Unable to Pay for Housing in the Last Year: No Number of Times Moved in the Last Year: Not on file Homeless in the Last Year: No ROS: General: denies fever, chills, fatigue, malaise GI: denies abdominal pain or ulcerations with anti-inflammatory medication OBJECTIVE LE EXAM: DERM: Positive hair growth to b/l feet with good skin turgor noted. Negative openings in skin VASC: Palpable pedal pulsed b/l with warm to cool tibia to toes b/l NEURO: Gross sensation intact digits 1-10 and b/l feet ORTHO: +5/5 DF/PF/IN/EV right, +5/5 DF/PF/IN/EV left. 20 degrees inversion and 10 degrees eversion STJ b/l. Ankle ROM less than 10 degrees b/l. Diminished pain on palpation to ligaments and right sinus tarsi positive pain to the medial and well as lateral gutter of the right tibiotalar joint synovium ASSESSMENT 1. Other specified disorders of synovium, right ankle and foot 2. Sinus tarsitis of right foot PLAN Pt to take nsaids as needed PRN pain Continue with orthotics Pt was given steroid injection to the right ankle joint capsule and synovium under US guidance with visualization of injected fluid into area of concern per imaging. Injection consisted of a 2:1 mixture of xylocaine 2%plain and kenalog 10 for a total of 3ccs. Informed pt of risks and benefits of procedure including infection,damage or rupture to soft tissue structures and steroid flare. Pt understood and consented. This is the patients 2nd injection Patient to be returned to ankle brace for the next 2 weeks Ran Osullivan DPM documented in this encounter [facility] 02-19-2025 Note HNO ID: [id number] Author: CARLO MCKEON RD Service: ? Author Type: Registered Dietitian Type: Progress Notes Filed: 02/19/2025 14:54 Note Text: Patient was scheduled for a nutrition appointment today. The patient did not check into their scheduled appointment. I sent the patient a OQVestirhart message encouraging them to reschedule their appointment by calling [phone]. [facility] 02-19-2025 History of Presen t illness Narrative Patient was scheduled for a nutrition appointment today. The patient did not check into their scheduled appointment. I sent the patient a OQVestirhart message encouraging them to reschedule their appointment by calling [phone]. documented in this encounter [facility] 01-25-2025 Telephone encounter Note Spoke with Tiffani Allison today, January 25, 2025, on the phone regarding her increased pain. Patient states that her wound is almost completely close at the inferior aspect of her midline. However, she continues to have increased pain and requiring both muscle relaxers and gabapentin. Possibly neuropathic pain. Plan to get CT to rule out post surgical concerns. If no acute findings on CT, will plan to refer to chronic pain management for further discussion/interventions for abdominal (neuropathic) pain. Ginger Silveira, MSN, CUSTOM DESIGNER, IMMIGRATION SPECIALIST-C January 25, 2025 11:30 AM [facility] 01-25-2025 Miscellaneous Notes Spoke with Tiffani Allison today, January 25, 2025, on the phone regarding her increased pain. Patient states that her wound is almost completely close at the inferior aspect of her midline. However, she continues to have increased pain and requiring both muscle relaxers and gabapentin. Possibly neuropathic pain. Plan to get CT to rule out post surgical concerns. If no acute findings on CT, will plan to refer to chronic pain management for further discussion/interventions for abdominal (neuropathic) pain. Ginger Silveira, MSN, CUSTOM DESIGNER, IMMIGRATION SPECIALIST-C January 25, 2025 11:30 AM documented in this encounter [facility] 12-28-2024 Note HNO ID: [id number] Author: GINGER SILVEIRA APRN.VEST PRESSER Service: ? Author Type: Nurse Practitioner Type: Progress Notes Filed: 12/28/2024 11:27 Note Text: [facility] Clinic Date: December 28, 2024 Tiffani Allison 39 year old female CHIEF COMPLAINT: Patient presents for a wound check. HPI: Here for wound check after open bilateral TAR, incisional hernia repair and implantation of mesh on 11/23/[address] Jeff. Patient also underwent with Raine Grissom M.D. ([place]), a laparoscopic paraesophageal hernia repair and conversion to Becki-en-Y gastric bypass. Last seen in clinic on for wound check. Tiffani reports improvement in her wound but continues to experience pain, which she describes as not terrible but annoying. She began taking gabapentin 300 mg yesterday and notes some relief. She is also using muscle relaxers and Tylenol for pain management. She inquired about the use of tramadol, which was previously prescribed by her PCP, but was advised against continuing it. Tiffani is performing wet-to-dry dressing changes twice daily. She reports that the wound dressing shows a quarter-sized amount of drainage after 12 hours, with more drainage noted at night. She denies any fevers. She inquires about resuming activities, including lifting weights and riding [employer], but notes that she is still in pain and unable to walk long distances comfortably. Surgery Date and Procedure: 11/23/2024 Open left posterior myofascial component separation, open right posterior myofascial component separation, and incisional hernia repair with mesh. Randomized Controlled Trial: N/A Current Medications: Current Outpatient Medications Medication Sig Dispense Refill traMADol (ULTRAM) 50 mg tablet Take 50 mg by mouth two times a day as needed. gabapentin (NEURONTIN) 300 mg capsule Take 1 capsule by mouth two times a day for 14 days. 28 capsule 0 acetaminophen (TYLENOL EXTRA STRENGTH) 500 mg tablet Take 2 tablets by mouth every 6 hours as needed for pain. DULoxetine (CYMBALTA) 30 mg capsule Take 1 capsule by mouth once daily. amLODIPine (NORVASC) 10 mg tablet Take 10 mg by mouth. fluocinonide (LIDEX) 0.05 % external solution APPLY TO THE AFFECTED AREA(S) topically DAILY levothyroxine (SYNTHROID) 137 mcg tablet TAKE 1 TABLET BY MOUTH IN THE MORNING BEFORE MEALS melatonin 1 mg chew Take by mouth. metoprolol succinate ER (TOPROL XL) 100 mg Take 100 mg by mouth. ondansetron orally disintegrating (ZOFRAN ODT) 4 mg disintegrating tablet 1 (one) time each day at the same time vit B-comp w-Fe,Ca,FA<1mg (IRON-VITAMINS ORAL) metFORMIN (GLUCOPHAGE) 500 mg tablet Take 1 tablet by mouth every 12 hours. omeprazole (PRILOSEC) 40 mg capsule Take 40 mg by mouth. No current facility-administered medications for this visit. REVIEW OF SYSTEMS: Constitutional: (+) fatigue, (-) fever Skin: (+) wound pain, (+) wound tenderness, (+) wound drainage PHYSICAL EXAM: Ht 177.8 cm (5' 10 ) Wt 131.5 kg (290 lb) LMP 12/24/2024 (Exact Date) BMI 41.61 kg/m? General: No acute distress. Skin: Wound depth approximately 2.4 cm, minimal drainage, no induration, no erythema, surrounding tissue appears healthy. SURGICAL PATHOLOGY: N/A ASSESSMENT/PLAN: 1. Encounter for postoperative wound check (Z48.89) Wound healing well with decreased depth from 5 cm to approximately 2.4 cm. No signs of induration or erythema. Patient experiencing tenderness and soreness, managed with gabapentin 300 mg and muscle relaxers. - Continue wet-to-dry dressings twice daily. - Continue gabapentin and muscle relaxers for pain management; avoid narcotics. - Provided supplies: Q-tips, abdominal pads, and 2-inch tape. - Advised patient to gradually increase activity as tolerated, avoiding activities that cause severe pain. - Follow up PRN - call office if any concerns with healing wound Ginger Silveira, MSN, VEST PRESSER December 28, 2024 [facility] 12-28-2024 History of Presen t illness Narrative Images from the original note were not included. [facility] Clinic Date: December 28, 2024 Tiffani Allison 39 year old female CHIEF COMPLAINT: Patient presents for a wound check. HPI: Here for wound check after open bilateral TAR, incisional hernia repair and implantation of mesh on 11/23/[address] Jeff. Patient also underwent with Raine Grissom M.D. ([place]), a laparoscopic paraesophageal hernia repair and conversion to Becki-en-Y gastric bypass. Last seen in clinic on for wound check. Tiffani reports improvement in her wound but continues to experience pain, which she describes as not terrible but annoying. She began taking gabapentin 300 mg yesterday and notes some relief. She is also using muscle relaxers and Tylenol for pain management. She inquired about the use of tramadol, which was previously prescribed by her PCP, but was advised against continuing it. Tiffani is performing wet-to-dry dressing changes twice daily. She reports that the wound dressing shows a quarter-sized amount of drainage after 12 hours, with more drainage noted at night. She denies any fevers. She inquires about resuming activities, including lifting weights and riding roller coasters, but notes that she is still in pain and unable to walk long distances comfortably. Surgery Date and Procedure: 11/23/2024 Open left posterior myofascial component separation, open right posterior myofascial component separation, and incisional hernia repair with mesh. Randomized Controlled Trial: N/A Current Medications: Current Outpatient Medications Medication Sig Dispense Refill traMADol (ULTRAM) 50 mg tablet Take 50 mg by mouth two times a day as needed. gabapentin (NEURONTIN) 300 mg capsule Take 1 capsule by mouth two times a day for 14 days. 28 capsule 0 acetaminophen (TYLENOL EXTRA STRENGTH) 500 mg tablet Take 2 tablets by mouth every 6 hours as needed for pain. DULoxetine (CYMBALTA) 30 mg capsule Take 1 capsule by mouth once daily. amLODIPine (NORVASC) 10 mg tablet Take 10 mg by mouth. fluocinonide (LIDEX) 0.05 % external solution APPLY TO THE AFFECTED AREA(S) topically DAILY levothyroxine (SYNTHROID) 137 mcg tablet TAKE 1 TABLET BY MOUTH IN THE MORNING BEFORE MEALS melatonin 1 mg chew Take by mouth. metoprolol succinate ER (TOPROL XL) 100 mg Take 100 mg by mouth. ondansetron orally disintegrating (ZOFRAN ODT) 4 mg disintegrating tablet 1 (one) time each day at the same time vit B-comp w-Fe,Ca,FA<1mg (IRON-VITAMINS ORAL) metFORMIN (GLUCOPHAGE) 500 mg tablet Take 1 tablet by mouth every 12 hours. omeprazole (PRILOSEC) 40 mg capsule Take 40 mg by mouth. No current facility-administered medications for this visit. REVIEW OF SYSTEMS: Constitutional: (+) fatigue, (-) fever Skin: (+) wound pain, (+) wound tenderness, (+) wound drainage PHYSICAL EXAM: Ht 177.8 cm (5' 10 ) Wt 131.5 kg (290 lb) LMP 12/24/2024 (Exact Date) BMI 41.61 kg/m General: No acute distress. Skin: Wound depth approximately 2.4 cm, minimal drainage, no induration, no erythema, surrounding tissue appears healthy. SURGICAL PATHOLOGY: N/A ASSESSMENT/PLAN: 1. Encounter for postoperative wound check (Z48.89) Wound healing well with decreased depth from 5 cm to approximately 2.4 cm. No signs of induration or erythema. Patient experiencing tenderness and soreness, managed with gabapentin 300 mg and muscle relaxers. - Continue wet-to-dry dressings twice daily. - Continue gabapentin and muscle relaxers for pain management; avoid narcotics. - Provided supplies: Q-tips, abdominal pads, and 2-inch tape. - Advised patient to gradually increase activity as tolerated, avoiding activities that cause severe pain. - Follow up PRN - call office if any concerns with healing wound WILBER Herrera, VEST PRESSER December 28, 2024 What is the reason for your visit today? Post op Who is your referring physician? Ginger Silveira Are you having poor oral intake? NO Have you had unintentional weight loss of 15 lbs/7 Kg in the last 3-6 months? NO Bowels: regular Wound: clean & dry Temperature: No Drains: No documented in this encounter [facility] 12-28-2024 Note HNO ID: [id number] Author: ?, ?, ? Service: ? Author Type: ? Type: Progress Notes Filed: 12/28/2024 11:27 Note Text: What is the reason for your visit today? Post op Who is your referring physician? Ginger Silveira Are you having poor oral intake? NO Have you had unintentional weight loss of 15 lbs/7 Kg in the last 3-6 months? NO Bowels: regular Wound: clean AND dry Temperature: No Drains: No [facility] 12-21-2024 Note Education (JENNIFERI) TIFFANI ALLISON ([id number]) 1985 F Date Time Provider Department 12/21/24 11:30 AM YESSI KHAN Reason for Visit: Patient Education [91] Reassessment [674] Primary Visit Diagnosis:Dietary counseling [Z71.3] Other Visit Diagnoses:BMI 40.0-44.9, adult (HCC) [Z68.41] Bariatric surgery status [Z98.84] During your visit today, we recorded the following information about you: Weight 132.9 kg Allergies As of Date: 12/21/2024 Noted Allergy Reaction PENICILLINS 10/26/2022 10 - Anaphylaxis 3 - Cough 4 - Hives 9 - Itching 2 - Rash 12 - Shortness of Breath 7 - Swelling 16 - Unknown Comments: Other Reaction(s): throat swelling and hives TOPIRAMATE 01/04/2023 5 - Intolerance Comments: Other Reaction(s): seizures Date Reviewed: 12/21/2024 Reviewed by: Yessi Khan RD - Fully Assessed Prescriptions as of 12/21/2024 - methocarbamol (ROBAXIN) 750 mg tablet Take 1 tablet by mouth three times a day as needed for up to 10 days. - gabapentin (NEURONTIN) 300 mg capsule Take 1 capsule by mouth two times a day for 14 days. - acetaminophen (TYLENOL EXTRA STRENGTH) 500 mg tablet Take 2 tablets by mouth every 6 hours as needed for pain. - enoxaparin (LOVENOX) 40 mg/0.4 mL Inject 0.4 mL subcutaneously every 12 hours. - DULoxetine (CYMBALTA) 30 mg capsule Take 1 capsule by mouth once daily. - metFORMIN (GLUCOPHAGE) 500 mg tablet Take 1 tablet by mouth every 12 hours. - amLODIPine (NORVASC) 10 mg tablet Take 10 mg by mouth. - fluocinonide (LIDEX) 0.05 % external solution APPLY TO THE AFFECTED AREA(S) topically DAILY - levothyroxine (SYNTHROID) 137 mcg tablet TAKE [...] each day at the same time - vit B-comp w-Fe,Ca,FA<1mg (IRON-VITAMINS ORAL) Encounter Status:Closed by YESSI KHAN on 12/21/24 [facility] 12-21-2024 Note HNO ID: [id number] Author: YESSI KHAN RD Service: ? Author Type: Registered Dietitian Type: Progress Notes Filed: 12/21/2024 12:11 Note Text: This visit was performed virtually due to the COVID-19 epidemic as an effort to protect patients and minimize exposure. Consent from patient received to conduct visit virtually. This Team Access Model visit is a virtual GROUP encounter. It required patient-provider interaction for the medical decision making as documented below. I have communicated my name and active licensure. The patient?s identity and physical location were verified at the time of this visit. Either the patient or their legal pest control service representative has been informed of the risks and benefits of -- and alternatives to -- treatment through a remote evaluation and consents to proceed with the evaluation remotely. Patient reports weight (as measured by home scale) of 293 pounds. AMBULATORY PATIENT EDUCATION NOTE-Shared Nutrition Group TOPIC: LIFE STYLE CHANGES: Post-op weight loss surgery: Diet and Exercise READINESS TO LEARN COGNITIVE ABILITY: Alert and oriented MOTIVATION TO LEARN: Interested FAMILY SUPPORT: Unable to assess - Family not present INSTRUCTION PROVIDED TO: Patient PATIENT LEARNS BEST BY: Multiple Methods FACTORS AFFECTING LEARNING: None PHYSICAL LIMITATIONS AFFECTING LEARNING: None LEARNING RESPONSE DIAGNOSIS: Altered GI function related to s/p bariatric surgery as evidence by LSG to RYGB Overweight Obesity, related to; food/nutrition - related knowledge deficit, as evidenced by BMI above normative standard for age and gender Malnutrition Screening Significant unintentional weight loss? No Eating less than 75% of usual intake for more than 2 weeks? No Nutritional status: METHOD OF INSTRUCTION: Individual instruction Group class instruction PATIENT / FAMILY RESPONSE: Nutrition outcome statement: Expect attention to diet to assist with weight management and minimum 800 calories/2 liters of fluids per day. Patient participated in a post-op shared nutrition group. Post-op weight loss surgery ( lap hiatal hernia repair, RYGB) 1 month (Dr. Grissom) Weight loss: 12 lbs since initial assessment (305 lbs); 4% loss total body weight. Pre surgery weight: 317 lbs. Weight loss tracking as (8%) expected from surgery. Tolerating phase III diet without difficulty. Protein needs estimated at 95 grams protein per day (1.2 g/kg IBW kg). Current intake meeting ~ 100% protein needs. Sources include eggs, cheese, deli ham, turkey breast, all beef hot dog (did not tolerate), pork, beef jerky- reports hating artifical sweetener taste but tolerates Ratio yogurt Fluid consumption adequate and includes water, protein shakes Patient is not taking recommended vitamin/minerals, does have planned to take Bariatric Advantage ultra solo, but reports bigger pills may be an issues, reviewed options with patient today. Exercise includes walking. Labs not available at this time, RD to monitor. Reviewed nutrition principles of: 1. Continue to take all recommended vitamin/minerals including daily multivitamin complete, VIt D3 3,000 IU, Vit B12 500 mcg, Vit B - complex (with 75 - 100 mcg thiamine) Iron 45-60 mg and calcium citrate [id number] mg/day in divided doses 2. Protein goal: 95 grams protein/day 3. Fluid goal: 64 ounces per day (no carbonation, caffeine, calories, alcohol) 4. Physical activity goal: increase as tolerated to goal of 200 minutes/week combination cardiovascular and strength training exercise. 5. Practice mindful eating habits-take small portions, eat slowly, chew thoroughly Nutrition Monitoring AND Evaluation:BMI< 40 Criteria: weight check Need for Follow up: 2 months, Ambulatory Group 1 unit Total Time (mins): 28 Signed by: Yessi Khan RDN, MARIA EUGENIA, MFN [facility] 12-21-2024 Note HNO ID: [id number] Author: RAINE GRISSOM MD Service: ? Author Type: Physician Type: Progress Notes Filed: 12/21/2024 10:44 Note Text: Metabolic Surgery Postoperative Virtual Clinic Visit Name: Tiffani Allison This visit was performed virtually via [employer] technology due to the COVID-19 epidemic as an effort to protect patients and minimize exposure.? Virtual Visit (Audio/Visual) I have discussed the nature of this visit with the patient which will occur via [facility] (Phone, Virtual Visit) and she agrees to proceed with this interaction . Index Surgery Date of Surgery: 11/23/2024 Surgeon: Raine Grissom MD Surgical Procedure: lap hiatal hernia repair, lap GJ, converted to open for JJ (with concurrent abdominal wall reconstruction by Dr. Jeff) 100 cm becki limb, 60 cm BP limb. Pre-surgical weight: 317 lb HPI: Today's Visit: There were no vitals taken for this visit. No weight on file for this encounter. Last Visit: Wt: 143.9 kg (317 lb 3.9 oz) BMI: 45.52 kg/(m2) Total weight loss: 317lbs --> 293lbs Overall, patient has been doing well. Fluid intake is 64oz Protein intake at least 60g in protein shakes plus more protein from soft foods BMs are good, better off of pain meds Pain medication use: none Taking vitamins Was packing wet to dry, opening of midline PHYSICAL EXAM: General - Normal, healthy, cooperative, in no acute distress, obese Able to interact verbally by video conference Psych - ORIENTATION: normal to time place, person and situation Mood/Affect: AFFECT AND MOOD: Normal Head/Neuro - Normal size and shape Facial appearance normal Pulmonary - respiratory effort normal deferred Assessment A/P: Normal post-OP course Patient Active Problem List Hypokalemia Hypophosphataemia Postoperative cellulitis of surgical wound S/P hernia repair Morbid obesity with BMI of 45.0-49.9, adult (HCC) Acute postoperative pain Ventral hernia without obstruction or gangrene GERD (gastroesophageal reflux disease) Hypertension Psoriatic arthritis (HCC) Inappropriate sinus tachycardia (HCC) Insulin resistance Class 3 severe obesity without serious comorbidity with body mass index (BMI) of 40.0 to 44.9 in adult Hypothyroidism Iron deficiency anemia Resolved Hospital Problems No resolved problems to display. DISPOSITION: Return 1 month to Post-op follow up/ individual office visit EDUCATION: Encouraged to continue with healthy lifestyle changes and incorporate cardiovascular and resistance training, Discussed weight loss expectations after bariatric and metabolic surgery, Advised PT to avoid NSAIDs, smoking tobacco given increased risk of marginal ulcers, or Discussed importance of protein intake as per the RDN note Doing well REFERRALS: N/A LABS: Raine Grissom MD Advanced Laparoscopic AND Bariatric Surgery Bariatric AND Metabolic [facility] 12-20-2024 Evaluation note Diagnosis Onset Date Resolution Abdominal pain acute December 20, 2024 10:59am Anxiety acute December 20, 2024 10:59am Depression acute December 20, 2024 10:59am H/O gastric bypass acute December 202024 10:59am H/O hernia repair acute November 10:59am History of repair of hiatal hernia acute December 20, 2024 10:59am Hypothyroid acute December 20 10:59am Open abdominal wall wound acute December 20, 2024 10:59am Attention deficit acute February 262024 9:55am Depression acute February 26 9:55am Difficulty concentrating acute February 26, 2025 9:55am Hypothyroid acute February 26 9:55am IFG (impaired fasting glucose) acute February 26, 2025 9:55am Iron deficiency anemia acute Ju 2024 9:55am Rash acute February 26 9:55am Screening for lipid disorders acute February 26, 2025 9:55am [facility] Work Phone: 1(160) 913-734505-21-2025 NoteHNO ID: [id number] Author: JERALD SOUZA, PhD Service: ? Author Type: Physician Type: Progress Notes Filed: 12/26/2024 00:15 Note Text: [facility] DEPARTMENT OF PSYCHIATRY AND PSYCHOLOGY/[facility]IC [facility] Bariatric Behavioral Services Progress Note December 19, 2024 Billing codes: ABRAM FIELDS [id number] Quang CPT Code: - 4159748 Virtual Group Psychotherapy Time initiated session: 12:00 PM to 1:11 PM I have communicated my name and active licensure. The patient's identity and physical location were verified at the time of this visit. Either the patient or their legal pest control service representative has been informed of the risks and benefits of -- and alternatives to -- treatment through a remote evaluation/session and consents to proceed with the session remotely. Platform: [employer] Session #: 1 with undersigned psychologist Index Surgery Date of Surgery: 11/23/2024 Surgeon: Raine Grissom MD Surgical Procedure: 2017 LSG revised to RYGB (100 cm becki limb, 60 cm BP limb) and lap hiatal hernia repair, lap GJ, converted to open for JJ (with concurrent abdominal wall reconstruction by Dr. Jeff) Pre-surgical weight: 317 lb Psychologist: Sharon Helm, PhD Subjective: Ms. Allison returns for a 1 month follow-up. Patients were reminded of the limits of confidentiality in the group setting and agreed to hold in confidence all matters discussed in the group. The patient's hospital experience and adjustment postsurgery were discussed. Patient discussed benefits they were experiencing after surgery and processed complications. Tools to enhance postsurgical outcomes, including coping skills for social situations and resources such as bariatric support groups, were offered. Patient set goals for lifestyle changes to enhance surgical outcomes. Patient identified challenges to accomplishing goals and lifestyle changes. Discussed normalization of adjustment issues. She describes a post-surgery recovery as uncomplicated. Post-surgically, the patient reports Nausea, constipation, fatigue, and pain. The following post-surgical psychological complications were reported: anxiety, regret, and grieving the loss of food. Ms. Allison describes working on behavior modification to get adequate protein, fluids, vitamins, and exercise. She denied binge eating, graze eating, tobacco use, and alcohol use. Future goals include: continue behavior modification, and advance diet as tolerated per BMI Nutrition Pt describes recovery thus far as extensive . Patient shared her journey with losing 155# with LSG, then developed GERD, and regained more of her weight Pt noted having an open wound that has to be repacked daily The patient reports weighing 1x/day or more; encouraged weighing at least once a week, but no more than once a day She identified the following non-scale victories: can fit into auditorium seats, clothing fits better Patient mood described as good. Affect is Appropriate and Mood congruent. Patient denies any suicidal or homicidal ideation, plan or intent at this time. Objective: pt arrived on time and paid excellent attention Patient Data Alcohol Use Disorders Identification Test - Short Version (AUDIT-C) 12/19/2024 AUDIT-C TOTAL SCORE 3 How often do you have a drink containing alcohol? Monthly or less How many drinks containing alcohol do you have on a typical day when you are drinking? 3 or 4 How often do you have four or more drinks on one occasion? Less than monthly In men, a score of 4 or more is considered positive; in women, a score of 3 or more is considered positive. Generally, the higher the AUDIT-C score, the more likely it is that the patient's drinking is affecting his/her health and safety Generalized Anxiety Disorder Scale (VIJAY-7) 06/09/2024 06/20/2024 12/19/2024 VIJAY - 7 SCORES Score 6 4 8 (0-4) minimal anxiety, (5-9) mild anxiety, (10-14) moderate anxiety, (15-21) severe anxiety Patient Health Questionnaire (PHQ-9) 06/09/2024 06/20/2024 12/19/2024 PHQ-9 Score 4 6 4 (0-4) minimal depression, (5-9) mild depression, (10-14) moderate depression, (15-19) moderately severe depression, (20-27) severe depression Assessment: (F54) Psychological factors affecting medical condition (primary encounter diagnosis) (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 gabapentin (NEURONTIN) 300 mg capsule Take 1 capsule by mouth two times a day for 14 days. acetaminophen (TYLENOL EXTRA STRENGTH) 500 mg tablet Take 2 tablets by mouth every 6 hours as needed for pain. enoxaparin (LOVENOX) 40 mg/0.4 mL Inject 0.4 mL subcutaneously every 12 hours. DULoxetine (CYMBALTA) 30 mg capsule Take 1 capsule by mouth once daily. metFORMIN (GLUCOPHAGE) (more content not included)...[facility] 12-14-2024 NoteHNO ID: [id number] Author: GINGER SILVEIRA APRN.VEST PRESSER Service: ? Author Type: Nurse Practitioner Type: Progress Notes Filed: 12/14/2024 15:25 Note Text: [facility] Clinic Date: December 14, 2024 Tiffani Allison 39 year old female CHIEF COMPLAINT: Patient presents for a wound check. HPI: Here for wound check after open bilateral TAR, incisional hernia repair and implantation of mesh on 11/23/[address] Jeff. Patient also underwent with Raine Grissom M.D. ([place]), a laparoscopic paraesophageal hernia repair and conversion to Becki-en-Y gastric bypass. Last seen in clinic on 12/05/2024 - wound opened and packed. She was started on Doxycyline 100 mg BID. Tiffani reports that the wound is improving and is being packed twice daily. She denies malodorous or purulent drainage, noting that the drainage is clear with occasional yellowish tint and some blood. She denies fevers and reports no significant erythema around the wound, though she notes some peeling skin. She is currently on doxycycline, which will be completed in 1-2 days. She reports that the pain is improving but still requires medication. She is taking muscle relaxers three times daily, which she finds effective, and occasionally takes fluoxicillin, adjusting the dose based on her pain level. She reports that Tylenol is ineffective for her pain. She has not taken gabapentin due to concerns about potential seizures. She is eating well She is taking stool softeners as needed and reports that her bowel movements could be better. She denies any issues with urination. Surgery Date and Procedure: 11/23/2024 Open left posterior myofascial component separation, open right posterior myofascial component separation, and incisional hernia repair with mesh. Randomized Controlled Trial: N/A Current Medications: Current Outpatient Medications Medication Sig Dispense Refill oxyCODONE IR (ROXICODONE) 5 mg immediate release tablet Take 1 tablet by mouth every 8 hours as needed for pain for up to 7 days. 20 tablet 0 gabapentin (NEURONTIN) 300 mg capsule Take 1 capsule by mouth two times a day for 14 days. 28 capsule 0 methocarbamol (ROBAXIN) 750 mg tablet Take 1 tablet by mouth three times a day as needed for up to 10 days. 30 tablet 0 doxycycline hyclate (VIBRAMYCIN) 100 mg capsule Take 1 capsule by mouth two times a day for 10 days. 20 capsule 0 acetaminophen (TYLENOL EXTRA STRENGTH) 500 mg tablet Take 2 tablets by mouth every 6 hours as needed for pain. enoxaparin (LOVENOX) 40 mg/0.4 mL Inject 0.4 mL subcutaneously every 12 hours. 24 mL 0 DULoxetine (CYMBALTA) 30 mg capsule Take 1 capsule by mouth once daily. metFORMIN (GLUCOPHAGE) 500 mg tablet Take 1 tablet by mouth every 12 hours. (Patient not taking: Reported on 12/05/2024) amLODIPine (NORVASC) 10 mg tablet Take 10 mg by mouth. fluocinonide (LIDEX) 0.05 % external solution APPLY TO THE AFFECTED AREA(S) topically DAILY levothyroxine (SYNTHROID) 137 mcg tablet TAKE 1 TABLET BY MOUTH IN THE MORNING BEFORE MEALS melatonin 1 mg chew Take by mouth. metoprolol succinate ER (TOPROL XL) 100 mg Take 100 mg by mouth. omeprazole (PRILOSEC) 40 mg capsule Take 40 mg by mouth. (Patient not taking: Reported on 12/05/2024) ondansetron orally disintegrating (ZOFRAN ODT) 4 mg disintegrating tablet 1 (one) time each day at the same time vit B-comp w-Fe,Ca,FA<1mg (IRON-VITAMINS ORAL) No current facility-administered medications for this visit. REVIEW OF SYSTEMS: Constitutional: (-) fever Gastrointestinal: (+) constipation, (-) vomiting Genitourinary: (-) urinary problems Musculoskeletal: (+) incisional pain, (+) muscle spasms Skin: (+) incisional redness, (+) pruritus, (+) wound drainage Neurological: (+) dizziness PHYSICAL EXAM: BP 136/86 Pulse 85 Temp 36.1 ?C (96.9 ?F) (Temporal) Ht 177.8 cm (5' 10 ) Wt 132 kg (291 lb) LMP 11/23/2024 (Exact Date) BMI 41.75 kg/m? General: No acute distress. Skin: Wound tissue appears healthy, serous drainage present, no signs of infection, sutures visible. SURGICAL PATHOLOGY: N/A ASSESSMENT/PLAN: 1. Encounter for postoperative wound check (Z48.89) Wound healing well with healthy tissue observed. Measurements: length 5.25 cm, width 3 cm, depth 5 cm, reduced from 6.4 cm a week ago. No signs of infection; drainage is serous and not purulent. Patient reports pain is improving but still requires medication. Currently taking doxycycline, muscle relaxers, and stool softeners. - Continue wound care with packing twice daily using saline gauze. - Provided additional abdominal pads and saline syringes for home use. - Complete remaining doses of doxycycline. - Refilled muscle relaxers prescription at [facility] [place]. - Advised to gradually reduce pain medication dosage. - Scheduled follow-up appointment on 12/28 at 11:00 AM. Ginger Silveira, MSN, VEST PRESSER [facility] 14[facility] of Present illness Narrative* Ginger Silveira, CUSTOM DESIGNER.VEST PRESSER - 12/14/2024 11:27 AM EDT Images from the original note were not included. [facility] Clinic Date: December 14, 2024 Tiffani Allison 39 year old female CHIEF COMPLAINT: Patient presents for a wound check. HPI: Here for wound check after open bilateral TAR, incisional hernia repair and implantation of mesh on11/23/[address] Jeff. Patient also underwent with Raine Grissom M.D. ([place]), a laparoscopic paraesophageal hernia repair and conversion to Becki-en-Y gastric bypass. Last seen in clinic on 12/05/2024 - wound opened and packed. She was started on Doxycyline 100 mg BID. Tiffani reports that the wound is improving and is being packed twice daily. She denies malodorous orpurulent drainage, noting that the drainage is clear with occasional yellowish tint and some blood.She denies fevers and reports no significant erythema around the wound, though she notes some peeling skin. She is currently on doxycycline, which will be completed in 1-2 days. She reports that the pain is improving but still requires medication. She is taking muscle relaxersthree times daily, which she finds effective, and occasionally takes fluoxicillin, adjusting the dose based on her pain level. She reports that Tylenol is ineffective for her pain. She has not taken gabapentin due to concerns about potential seizures. She is eating well She is taking stool softeners as needed and reports that her bowel movements could be better. She denies any issues with urination. Surgery Date and Procedure: 11/23/2024 Open left posterior myofascial component separation, open right posterior myofascial component separation, and incisional hernia repair with mesh. Randomized Controlled Trial: N/A Current Medications: Current Outpatient Medications Medication Sig Dispense Refill oxyCODONE IR (ROXICODONE) 5 mg immediate release tablet Take 1 tablet by mouth every 8 hours as needed for pain for up to 7 days. 20 tablet 0 gabapentin (NEURONTIN) 300 mg capsule Take 1 capsule by mouth two times a day for 14 days. 28 capsule 0 methocarbamol (ROBAXIN) 750 mg tablet Take 1 tablet by mouth three times a day as needed for up to 10 days. 30 tablet 0 doxycycline hyclate (VIBRAMYCIN) 100 mg capsule Take 1 capsule by mouth two times a day for 10 days. 20 capsule 0 acetaminophen (TYLENOL EXTRA STRENGTH) 500 mg tablet Take 2 tablets by mouth every 6 hours as needed for pain. enoxaparin (LOVENOX) 40 mg/0.4 mL Inject 0.4 mL subcutaneously every 12 hours. 24 mL 0 DULoxetine (CYMBALTA) 30 mg capsule Take 1 capsule by mouth once daily. metFORMIN (GLUCOPHAGE) 500 mg tablet Take 1 tablet by mouth every 12 hours. (Patient not taking: Reported on 12/05/2024) amLODIPine (NORVASC) 10 mg tablet Take 10 mg by mouth. fluocinonide (LIDEX) 0.05 % external solution APPLY TO THE AFFECTED AREA(S) topically DAILY levothyroxine (SYNTHROID) 137 mcg tablet TAKE 1 TABLET BY MOUTH IN THE MORNING BEFORE MEALS melatonin 1 mg chew Take by mouth. metoprolol succinate ER (TOPROL XL) 100 mg Take 100 mg by mouth. omeprazole (PRILOSEC) 40 mg capsule Take 40 mg by mouth. (Patient not taking: Reported on 12/05/2024) ondansetron orally disintegrating (ZOFRAN ODT) 4 mg disintegrating tablet 1 (one) time each day at the same time vit B-comp w-Fe,Ca,FA<1mg (IRON-VITAMINS ORAL) No current facility-administered medications for this visit. REVIEW OF SYSTEMS: Constitutional: (-) fever Gastrointestinal: (+) constipation, (-) vomiting Genitourinary: (-) urinary problems Musculoskeletal: (+) incisional pain, (+) muscle spasms Skin: (+) incisional redness, (+) pruritus, (+) wound drainage Neurological: (+) dizziness PHYSICAL EXAM: BP 136/86 Pulse 85 Temp 36.1 C (96.9 F) (Temporal) Ht 177.8 cm (5' 10 ) Wt 132 kg (291 lb) LMP 11/23/2024 (Exact Date) BMI 41.75 kg/m General: No acute distress. Skin: Wound tissue appears healthy, serous drainage present, no signs of infection, sutures visible. SURGICAL PATHOLOGY: N/A ASSESSMENT/PLAN: 1. Encounter for postoperative wound check (Z48.89) Wound healing well with healthy tissue observed. Measurements: length 5.25 cm, width 3 cm, depth 5 cm, reduced from 6.4 cm a week ago. No signs of infection; drainage is serous and not purulent. Patient reports pain is improving but still requires medication. Currently taking doxycycline, muscle relaxers, and stool softeners. - Continue wound care with packing twice daily using saline gauze. - Provided additional abdominal pads and saline syringes for home use. - Complete remaining doses of doxycycline. - [facility] - Advised to gradually reduce pain medication dosage. - Scheduled follow-up appointment on 12/28 at 11:00 AM. Ginger Silveira, MSN, VEST PRESSER December 14, 2024 * Sudarshan Russell MA - 12/14/2024 11:07 AM EDT What is the reason for your visit today? Post op Who is your referring physician? Dr. Silveira Are you having poor oral intake? NO Have you had unintentional weight loss of 15 lbs/7 Kg in the last 3-6 months? NO Bowels: constipated Wound: drainage pink/ clear Temperature: No Drains: No [facility] NoteHNO ID: [id number] Author: SUDARSHAN RUSSELL MA Service: ? Author Type: Salesforce Consultant Type: Progress Notes Filed: 12/14/2024 15:25 Note Text: What is the reason for your visit today? Post op Who is your referring physician? Dr. Silveira Are you having poor oral intake? NO Have you had unintentional weight loss of 15 lbs/7 Kg in the last 3-6 months? NO Bowels: constipated Wound: drainage pink/ clear Temperature: No Drains: [facility] Telephone encounter Note* Telephone Encounter - Kristi Watts RN - 12/06/2024 11:05 AM EDT [facility] SPECIALTY CARE COORDINATION POST-OP TELEPHONE CALL [facility] Post Op Telephone Call Pt was called on the 8 day after discharge. DO YOU HAVE A COPY OF YOUR DISCHARGE INSTRUCTIONS YES Is there anything in your discharge instructions that you do not understand? YES Pain: tolerable. and taking Tylenol. On a scale of 0-10, 0 being not satisfied and 10 being very satisfied, how satisfied were you with your pain management strategy after surgery? 10 Patient instructed not to take any narcotic pain medications (such as Roxicodone) within three hours before bedtime as it may cause breathing difficulty. If you are having pain at bedtime you may take Tylenol (liquid form or two extra strength tablets). Phase 2 full liquid diet:: tolerating diet. and pt estimates 60 grams of protein and min of 40 oz of fluid daily. Pt is feeling ok and is not dehydrated. Incisions: surgical incisions (bigger one is being packed) Pt is on antibiotics Dr. Grissom's incisions look good (pt stated) GI: + BM and +flatus : WNL Medications: Taking as instructioned at discharge PPI CPAP USE: No Remind patient of post op appt. Reminded patient of how to reach [facility] or their surgeons office. Patient reminded to seek medical attention if they develop chest pain, a sudden onset of shortness of breath or persistent pain in the calf of their legs - BEST TO ALWAYS present to [facility] where you had your surgery Patient verbalized understanding of all advice and instructions given. Kristi Watts RN [facility] SPECIALTY CARE COORDINATION TELEPHONE ENCOUNTER 2nd attempt for post op phone call LVM with call back number [facility]05-08-[facility]25 Miscellaneous Notes* Telephone Encounter - Kristi Watts RN - 12/06/2024 11:05 AM EDT [facility] SPECIALTY CARE COORDINATION POST-OP TELEPHONE CALL [facility] Post Op Telephone Call Pt was called on the 8 day after discharge. DO YOU HAVE A COPY OF YOUR DISCHARGE INSTRUCTIONS YES Is there anything in your discharge instructions that you do not understand? YES Pain: tolerable. and taking Tylenol. On a scale of 0-10, 0 being not satisfied and 10 being very satisfied, how satisfied were you with your pain management strategy after surgery? 10 Patient instructed not to take any narcotic pain medications (such as Roxicodone) within three hours before bedtime as it may cause breathing difficulty. If you are having pain at bedtime you may take Tylenol (liquid form or two extra strength tablets). Phase 2 full liquid diet:: tolerating diet. and pt estimates 60 grams of protein and min of 40 oz of fluid daily. Pt is feeling ok and is not dehydrated. Incisions: surgical incisions (bigger one is being packed) Pt is on antibiotics Dr. Grissom's incisions look good (pt stated) GI: + BM and +flatus : WNL Medications: Taking as instructioned at discharge PPI CPAP USE: No Remind patient of post op appt. Reminded patient of how to reach [facility] or their surgeons office. Patient reminded to seek medical attention if they develop chest pain, a sudden onset of shortness of breath or persistent pain in the calf of their legs - BEST TO ALWAYS present to [facility] where you had your surgery Patient verbalized understanding of all advice and instructions given. Kristi Watts RN [facility] SPECIALTY CARE COORDINATION TELEPHONE ENCOUNTER 2nd attempt for post op phone call LVM with call back number documented in [facility] encounterProv[facility] Telephone encounter Note * Telephone Encounter - Kristi Watts RN - 12/05/2024 11:17 AM EDT [facility] SPECIALTY CARE COORDINATION TELEPHONE ENCOUNTER Post op call, Pt will call me back he answered and she was at an appointment [facility]05-07-2025 Miscellaneous Notes* Telephone Encounter - Kristi Watts RN - 12/05/2024 11:17 AM EDT [facility] SPECIALTY CARE COORDINATION TELEPHONE ENCOUNTER Post op call, Pt will call me back he answered and she was at an appointment documented in this encounterProvidence Hospital05-07-2025 NoteHNO ID: [id number] Author: GINGER SILVEIRA APRN.VEST PRESSER Service: ? Author Type: Nurse Practitioner Type: Progress Notes Filed: 12/05/2024 13:10 Note Text: [facility] Clinic Date: December 05, 2024 Tiffani Allison 39 year old female CHIEF COMPLAINT: Patient presents for follow up from surgery. HPI: Here for follow up after open bilateral TAR, incisional hernia repair and implantation of mesh on 11/23/[address] Jeff. Patient also underwent with Raine Grissom M.D. ([place]), a laparoscopic paraesophageal hernia repair and conversion to Becki-en-Y gastric bypass. She reports significant pain and is currently taking oxycodone, for which she had received a one time refill. She was previously prescribed methocarbamol 500 mg but reports it was ineffective and is requesting a higher dose. She has been taking Tylenol for breakthrough pain but finds it insufficient. She has not used heat or ice for pain management. Tiffani has a drain in place, which she finds painful and irritating.Output 30 ml/day. She reports redness around the drain site. She notes that the lower half of her incision appears to be opening and has been draining fluid for the past two nights. She denies any fevers. She recently completed a course of doxycycline which was prescribed for erythema at the lower portion of her midline. The erythema has persisted. She describes an intense ache in the lower abdomen, feeling like something is pulling. She is having regular bowel movements every other day and is taking a stool softener. She denies any issues with urination. She is ambulating frequently. Surgery Date and Procedure: 11/23/2024 Open left posterior myofascial component separation, open right posterior myofascial component separation, and incisional hernia repair with mesh. Randomized Controlled Trial: N/A Current Medications: Current Outpatient Medications Medication Sig Dispense Refill methocarbamol (ROBAXIN) 750 mg tablet Take 1 tablet by mouth three times a day as needed for up to 10 days. 30 tablet 0 oxyCODONE IR (ROXICODONE) 5 mg immediate release tablet Take 1 tablet by mouth every 6 hours as needed for pain for up to 7 days. 28 tablet 0 acetaminophen (TYLENOL EXTRA STRENGTH) 500 mg tablet Take 2 tablets by mouth every 6 hours as needed for pain. enoxaparin (LOVENOX) 40 mg/0.4 mL Inject 0.4 mL subcutaneously every 12 hours. 24 mL 0 DULoxetine (CYMBALTA) 30 mg capsule Take 1 capsule by mouth once daily. metFORMIN (GLUCOPHAGE) 500 mg tablet Take 1 tablet by mouth every 12 hours. (Patient not taking: Reported on 12/05/2024) amLODIPine (NORVASC) 10 mg tablet Take 10 mg by mouth. fluocinonide (LIDEX) 0.05 % external solution APPLY TO THE AFFECTED AREA(S) topically DAILY levothyroxine (SYNTHROID) 137 mcg tablet TAKE 1 TABLET BY MOUTH IN THE MORNING BEFORE MEALS melatonin 1 mg chew Take by mouth. metoprolol succinate ER (TOPROL XL) 100 mg Take 100 mg by mouth. omeprazole (PRILOSEC) 40 mg capsule Take 40 mg by mouth. (Patient not taking: Reported on 12/05/2024) ondansetron orally disintegrating (ZOFRAN ODT) 4 mg disintegrating tablet 1 (one) time each day at the same time vit B-comp w-Fe,Ca,FA<1mg (IRON-VITAMINS ORAL) No current facility-administered medications for this visit. REVIEW OF SYSTEMS: Constitutional: (-) fever Gastrointestinal: (+) constipation, (-) vomiting Genitourinary: (-) urinary problems Musculoskeletal: (+) incisional pain, (+) muscle spasms Skin: (+) incisional redness, (+) pruritus, (+) wound drainage Neurological: (+) dizziness PHYSICAL EXAM: BP 126/80 Pulse 81 Temp 36.3 ?C (97.3 ?F) (Temporal) Ht 177.8 cm (5' 10 ) Wt 134.3 kg (296 lb) LMP 11/23/2024 (Exact Date) BMI 42.47 kg/m? General: No acute distress. Abd: Incision erythematous and tender at inferior aspect, partial dehiscence with serous drainage, depth of dehiscence approximately 6.4 cm SURGICAL PATHOLOGY: N/A ASSESSMENT/PLAN: 1. Postoperative visit (Z48.89) Patient is experiencing significant pain and discomfort following recent surgery, with reports of incision site opening and drainage. Currently taking oxycodone for pain management and has completed a course of doxycycline. Methocarbamol 500 mg was ineffective for muscle spasms. No fevers reported, and patient is maintaining hydration as advised. Drain output is approximately 30 mL per 24 hours. Patient is ambulatory and having regular bowel movements every other day. - Increased methocarbamol dosage to 750 mg TID as needed. - Recommended application of heat for muscle spasms. -SANJUANITA drain removed in clinic without difficulty -Wound opened further at inferior aspect of midline - draining serosanguinous fluid.. Initiated wet-to-dry dressing changes twice daily to promote drainage and healing of the incision site. - Prescribed an additional 10-day course of antibiotics - Doxycyline 100 m (more content not included)...[facility]05-07-[facility]25 History of Present illness Narrative* Ginger Silveira APRN.VEST PRESSER - 12/05/2024 11:02 AM EDT [facility] Clinic Date: December 05, 2024 Tiffani Allison 39 year old female CHIEF COMPLAINT: Patient presents for follow up from surgery. HPI: Here for follow up after open bilateral TAR, incisional hernia repair and implantation of mesh on 11/23/[address] Jeff. Patient also underwent with Raine Grissom M.D. ([place]), a laparoscopic paraesophageal hernia repair and conversion to Becki-en-Y gastric bypass. She reports significant pain and is currently taking oxycodone, for which she had received a one time refill. She was previously prescribed methocarbamol 500 mg but reports it was ineffective and is requesting a higher dose. She has been taking Tylenol for breakthrough pain but finds it insufficient. She has not used heat or ice for pain management. Tiffani has a drain in place, which she finds painful and irritating.Output 30 ml/day. She reports redness around the drain site. She notes that the lower half of her incision appears to be opening andhas been draining fluid for the past two nights. She denies any fevers. She recently completed a course of doxycycline which was prescribed for erythema at the lower portion of her midline. The erythema has persisted. She describes an intense ache in the lower abdomen, feeling like something is pulling. She is having regular bowel movements every other day and is taking a stool softener. She denies any issues withurination. She is ambulating frequently. Surgery Date and Procedure: 11/23/2024 Open left posterior myofascial component separation, open right posterior myofascial component separation, and incisional hernia repair with mesh. Randomized Controlled Trial: N/A Current Medications: Current Outpatient Medications Medication Sig Dispense Refill methocarbamol (ROBAXIN) 750 mg tablet Take 1 tablet by mouth three times a day as needed for up to 10 days. 30 tablet 0 oxyCODONE IR (ROXICODONE) 5 mg immediate release tablet Take 1 tablet by mouth every 6 hours as needed for pain for up to 7 days. 28 tablet 0 acetaminophen (TYLENOL EXTRA STRENGTH) 500 mg tablet Take 2 tablets by mouth every 6 hours as needed for pain. enoxaparin (LOVENOX) 40 mg/0.4 mL Inject 0.4 mL subcutaneously every 12 hours. 24 mL 0 DULoxetine (CYMBALTA) 30 mg capsule Take 1 capsule by mouth once daily. metFORMIN (GLUCOPHAGE) 500 mg tablet Take 1 tablet by mouth every 12 hours. (Patient not taking: Reported on 12/05/2024) amLODIPine (NORVASC) 10 mg tablet Take 10 mg by mouth. fluocinonide (LIDEX) 0.05 % external solution APPLY TO THE AFFECTED AREA(S) topically DAILY levothyroxine (SYNTHROID) 137 mcg tablet TAKE 1 TABLET BY MOUTH IN THE MORNING BEFORE MEALS melatonin 1 mg chew Take by mouth. metoprolol succinate ER (TOPROL XL) 100 mg Take 100 mg by mouth. omeprazole (PRILOSEC) 40 mg capsule Take 40 mg by mouth. (Patient not taking: Reported on 12/05/2024) ondansetron orally disintegrating (ZOFRAN ODT) 4 mg disintegrating tablet 1 (one) time each day at the same time vit B-comp w-Fe,Ca,FA<1mg (IRON-VITAMINS ORAL) No current facility-administered medications for this visit. REVIEW OF SYSTEMS: Constitutional: (-) fever Gastrointestinal: (+) constipation, (-) vomiting Genitourinary: (-) urinary problems Musculoskeletal: (+) incisional pain, (+) muscle spasms Skin: (+) incisional redness, (+) pruritus, (+) wound drainage Neurological: (+) dizziness PHYSICAL EXAM: BP 126/80 Pulse 81 Temp 36.3 C (97.3 F) (Temporal) Ht 177.8 cm (5' 10 ) Wt 134.3 kg (296 lb) LMP 11/23/2024 (Exact Date) BMI 42.47 kg/m General: No acute distress. Abd: Incision erythematous and tender at inferior aspect, partial dehiscence with serous drainage, depth of dehiscence approximately 6.4 cm SURGICAL PATHOLOGY: N/A ASSESSMENT/PLAN: 1. Postoperative visit (Z48.89) Patient is experiencing significant pain and discomfort following recent surgery, with reports of incision site opening and drainage. Currently taking oxycodone for pain management and has completed a course of doxycycline. Methocarbamol 500 mg was ineffective for muscle spasms. No fevers reported,and patient is maintaining hydration as advised. Drain output is approximately 30 mL per 24 hours. Patient is ambulatory and having regular bowel movements every other day. - Increased methocarbamol dosage to 750 mg TID as needed. - Recommended application of heat for muscle spasms. -SANJUANITA drain removed in clinic without difficulty -Wound opened further at inferior aspect of midline - draining serosanguinous fluid.. Initiated wet-to-dry dressing changes twice daily to promote drainage and healing of the incision site. - Prescribed an additional 10-day course of antibiotics - Doxycyline 100 mg BID for concern for cellulitis - Advised continuation of ambulation to aid recovery. - Scheduled follow-up appointment on December 14 at 11:00 AM to assess wound healing and overall progress. Ginger Silveira, MSN, VEST PRESSER December 05, 2024 * Sudarshan Russell MA - 12/05/2024 11:00 AM EDT What is the reason for your visit today? Post op Who is your referring physician? Dr. Silveira Are you having poor oral intake? NO Have you had unintentional weight loss of 15 lbs/7 Kg in the last 3-6 months? NO Bowels: constipation Wound: drainage blood Temperature: No Drains: Yes sanjuanita documented in this encounterProv[facility]05-07-2025 NoteHNO ID: [id number] Author: SUDARSHAN RUSSELL MA Service: ? Author Type: Salesforce Consultant Type: Progress Notes Filed: 12/05/2024 13:10 Note Text: What is the reason for your visit today? Post op Who is your referring physician? Dr. Silveira Are you having poor oral intake? NO Have you had unintentional weight loss of 15 lbs/7 Kg in the last 3-6 months? NO Bowels: constipation Wound: drainage blood Temperature: No Drains: Yes [facility] NoteHNO ID: [id number] Author: RAINE GRISSOM MD Service: ? Author Type: Physician Type: Progress Notes Filed: 11/30/2024 13:43 Note Text: Metabolic Surgery Postoperative Virtual Clinic Visit Name: Tiffani Allison This visit was performed virtually via Zoom technology due to the COVID-19 epidemic as an effort to protect patients and minimize exposure.? Virtual Visit (Audio/Visual) I have discussed the nature of this visit with the patient which will occur via [facility] (Phone, Virtual Visit) and she agrees to proceed with this interaction . Index Surgery Date of Surgery: 11/23/2024 Surgeon: Raine Grissom MD Surgical Procedure: lap hiatal hernia repair, lap GJ, converted to open for JJ (with concurrent abdominal wall reconstruction by Dr. Jeff) 100 cm becki limb, 60 cm BP limb. Pre-surgical weight: 317 lb HPI: Today's Visit: There were no vitals taken for this visit. No weight on file for this encounter. Last Visit: Wt: 143.9 kg (317 lb 3.9 oz) BMI: 45.52 kg/(m2) Total weight loss: not asked Overall, patient has been doing well. Fluid intake is 30oz Protein intake 30g BMs are constipated Pain medication use: oxycodone No issues with incisions. PHYSICAL EXAM: General - Normal, healthy, cooperative, in no acute distress, obese Able to interact verbally by video conference Psych - ORIENTATION: normal to time place, person and situation Mood/Affect: AFFECT AND MOOD: Normal Head/Neuro - Normal size and shape Facial appearance normal Pulmonary - respiratory effort normal deferred Assessment A/P: Normal post-OP course Patient Active Problem List Hypokalemia Hypophosphataemia Postoperative cellulitis of surgical wound S/P hernia repair Morbid obesity with BMI of 45.0-49.9, adult (HCC) Acute postoperative pain Ventral hernia without obstruction or gangrene GERD (gastroesophageal reflux disease) Hypertension Psoriatic arthritis (HCC) Inappropriate sinus tachycardia (HCC) Insulin resistance Class 3 severe obesity without serious comorbidity with body mass index (BMI) of 40.0 to 44.9 in adult Hypothyroidism Iron deficiency anemia Resolved Hospital Problems No resolved problems to display. DISPOSITION: Return 1 month to Post-op follow up/ individual office visit EDUCATION: Encouraged to continue with healthy lifestyle changes and incorporate cardiovascular and resistance training, Discussed weight loss expectations after bariatric and metabolic surgery, Advised PT to avoid NSAIDs, smoking tobacco given increased risk of marginal ulcers, or Discussed importance of protein intake as per the RDN note Encouraged to increase liquid intake REFERRALS: N/A LABS: Raine Grissom MD Advanced Laparoscopic AND Bariatric Surgery Bariatric AND Metabolic [facility] [place] of Present illness Narrative* Raine Grissom MD - 11/30/2024 1:33 PM EDT Metabolic Surgery Postoperative Virtual Clinic Visit Name: Tiffani Allison This visit was performed virtually via Zoom technology due to the COVID-19 epidemic as an effort toprotect patients and minimize exposure.? Virtual Visit (Audio/Visual) I have discussed the nature of this visit with the patient which will occur via Distance Health (Phone, Virtual Visit) and she agrees to proceed with this interaction . Index Surgery Date of Surgery: 11/23/2024 Surgeon: Raine Grissom MD Surgical Procedure: lap hiatal hernia repair, lap GJ, converted to open for JJ (with concurrent abdominal wall reconstruction by Dr. Jeff) 100 cm becki limb, 60 cm BP limb. Pre-surgical weight: 317 lb HPI: Today's Visit: There were no vitals taken for this visit. No weight on file for this encounter. Last Visit: Wt: 143.9 kg (317 lb 3.9 oz) BMI: 45.52 kg/(m^2) Total weight loss: not asked Overall, patient has been doing well. Fluid intake is 30oz Protein intake 30g BMs are constipated Pain medication use: oxycodone No issues with incisions. PHYSICAL EXAM: General - Normal, healthy, cooperative, in no acute distress, obese Able to interact verbally by video conference Psych - ORIENTATION: normal to time place, person and situation Mood/Affect: AFFECT AND MOOD: Normal Head/Neuro - Normal size and shape Facial appearance normal Pulmonary - respiratory effort normal deferred Assessment A/P: Normal post-OP course Patient Active Problem List Hypokalemia Hypophosphataemia Postoperative cellulitis of surgical wound S/P hernia repair Morbid obesity with BMI of 45.0-49.9, adult (HCC) Acute postoperative pain Ventral hernia without obstruction or gangrene GERD (gastroesophageal reflux disease) Hypertension Psoriatic arthritis (HCC) Inappropriate sinus tachycardia (HCC) Insulin resistance Class 3 severe obesity without serious comorbidity with body mass index (BMI) of 40.0 to 44.9 in adult Hypothyroidism Iron deficiency anemia Resolved Hospital Problems No resolved problems to display. DISPOSITION: Return 1 month to Post-op follow up/ individual office visit EDUCATION: Encouraged to continue with healthy lifestyle changes and incorporate cardiovascular andresistance training, Discussed weight loss expectations after bariatric and metabolic surgery, Advised PT to avoid NSAIDs, smoking tobacco given increased risk of marginal ulcers, or Discussed importance of protein intake as per the RDN note Encouraged to increase liquid intake REFERRALS: N/A LABS: Raine Grissom MD Advanced Laparoscopic & Bariatric Surgery Bariatric & Metabolic [facility] NoteHNO ID: [id number] Author: AMRIK PINTO, SHABANA Service: Nursing Author Type: Registered Nurse Type: Progress Notes Filed: 11/27/2024 13:09 Note Text: Patient is ready for discharge. AVS was explained to patient with all questions answered. IV was removed per policy. Patient was taken to the lobby by staff in a wheelchair with all belongings.[facility]04-29-2025 NoteHNO ID: [id number] Author: SINDY DE LA GARZA MD Service: General Surgery Author Type: Resident Type: Progress Notes Filed: 11/27/2024 07:17 Note Text: GENERAL SURGERY PROGRESS NOTE Tiffani Allison [id number] ASSESSMENT AND PLAN Tiffani Allison is a 39 year old female with PMHx HTN, GERD, hypothyroidism, psoriatic arthritis, severe obesity who is now s/p ventral incisional hernia repair with bilateral TAR, placement of retromuscular mesh (Dr. Jeff) concomitantly with laparoscopic converted to open paraesophageal hernia repair, gastric sleeve conversion to Becki-en-Y bypass (Dr. Grissom). Doing well post op, has return of bowel function, tolerating B2 diet. Off ketamine drip. Some erythema round incision PLAN: -Multimodal pain regimen -Bariatric stage 2 diet -Continue DVT ppx -IS, OOB - dc left sided drain today if discharged, will go home with the right sided drain -Tentatively home this afternoon if pain is better controlled -PO doxycycline Sindy De La Garza MD PGY5 General Surgery Resident [id number] Patient Active Hospital Problem List: Ventral hernia without obstruction or gangrene Date Noted: 11/23/2024 GERD (gastroesophageal reflux disease) Date Noted: 11/06/2024 Hypothyroidism Date Noted: 10/23/2022 Hypertension Date Noted: 11/06/2024 Psoriatic arthritis (HCC) Date Noted: 11/06/2024 S/P hernia repair Date Noted: 11/26/2024 Morbid obesity with BMI of 45.0-49.9, adult (HCC) Date Noted: 11/26/2024 Acute postoperative pain Date Noted: 11/26/2024 SUBJECTIVE: Uncontrolled pain this morning No nausea Passing flatus OBJECTIVE: BP 137/71 Pulse 88 Temp 37.2 ?C (99 ?F) (Oral) Resp 16 Ht 177.8 cm (5' 10 ) Wt (!) 144.7 kg (319 lb) LMP 11/23/2024 (Exact Date) SpO2 93% BMI 45.77 kg/m? Body mass index is 45.77 kg/m?. GENERAL: Alert and oriented, no acute distress, cooperative. LUNGS: Non labored breathing ABDOMEN: soft, appropriately tender, nondistended. - SANJUANITA drains serosanguineous WOUND: clean, dry and intact Labs: CBC, Coags, BMP, Mg, Phos Recent Labs 11/26/24 0732 11/26/24 0731 11/25/24 1026 11/25/24 0407 11/25/24 0406 WBC 8.27 -- 8.65 -- 7.84 HB 12.3 -- 12.2 -- 11.0* HCT 36.6 -- 36.1 -- 33.1* PLT 232 -- 212 -- 205 NA -- 140 141 141 -- K -- 3.6* 4.1 6.7* -- CHLOR -- 102 106 108* -- CO2 -- -- BUN -- 5* 5* 4* -- CREAT -- 0.58 0.53* 0.47* -- GLUC -- 89 96 76 -- CA -- 8.7 8.5 8.0* -- MG -- 2.0 -- 1.8 -- P -- 2.5* -- 2.1* -- Liver Function, Amylase, AND Lipase I/O past 24h: Intake/Output Summary (Last 24 hours) at 11/27/2024 0715 Last data filed at 11/27/2024 0538 Gross per 24 hour Intake 1790 ml Output 1141 ml Net 649 ml LDA: Lines, Drains, and Airways Line Duration Peripheral 11/23/24 0649 Short Left Forearm 20 Gauge 4 days Peripheral 11/23/24 1537 Right Forearm 18 Gauge 3 days Drain Duration Drain/Tube [facility] Left Upper Quadrant Abdomen Drain #1 -- days Drain/Tube 11/23/24 1604 [facility] Dipak Rodriguez Right Upper Quadrant Abdomen Drain #3 3 days Drain/Tube 11/23/24 1605 [facility] Dipak Rodriguez Left Lower Quadrant Abdomen Drain #2 3 days SURGERY/PROCEDURE: Procedure(s) and Anesthesia Type: Panel 1: * FLAP MUSCLE MYOCUTANEOUS OR FASCIOCUTANEOUS, TRUNK - General * HERNIORRHAPHY INCISIONAL ABDOMINAL ADULT INITIAL REDUCIBLE GREATER THAN 10cm - General Panel 2: * LAPAROSCOPIC RPR PARAESOPHAGEAL HERNIA W/O FUNDOPLASTY W/ MESH - General * LAPAROSCOPIC GASTRIC RESTRICTIVE SURG W/ BYPASS AND BECKI-EN-Y 150CM OR LESS/ SLEEVE TO BYPASS - [facility] NoteHNO ID: [id number] Author: TIFFANIE MAGAÑA RN Service: Care Management Author Type: Registered Nurse Type: Care Mgt Initial Assessment Filed: 11/26/2024 14:14 Note Text: CARE MANAGEMENT: ASSESSMENT AND DISCHARGE PLAN SERVICE DATE: November 26, 2024 SERVICE TIME: 2:13 PM PCP: Elisabeth Beckman NP Primary Contact: Extended Emergency Contact Information Primary Emergency Contact: Jesus Allison Address: [address] [place] [address] Mobile Relation: Spouse Secondary Emergency Contact: Martha Esteban [facility] Mobile Relation: Mother Admission Status: Inpatient Insurance Provider: SARAH POS Discharge Planning requested by: Per Department Practice Potential Transition Plans No Services Indicated Advance Directives Current Advance Directive: None Public Health Veterinarian Attempted to Assist with AD Completion: Yes Action: Education Provided Current Living Arrangements and Support Lives with: Spouse/significant other, Children Type of Residence: Private Residence (House) Does the patient have to climb stairs at home?: Yes, stairs outside the home Support: Family members, Spouse/significant other How do you manage to accomplish the following: Independent: Ambulation, Bathe/Shower, Dress, Meals/Meal Prep, Going to the bathroom, Transportation to appointments/community, Medication Management Current Services/Equipment Current Post-Acute Service(s): None Discharge Planning Patient Goal(s): Be able to go home, General wellness [place] of Choice Explained: [place] of Choice Given: No Reason Not Given: No placements necessary Are you interested in bedside delivery of your medications? No not offered on H51 Discharge Planning Participant(s): Patient Patient/Family Comments: Caregiver Assessment: Caregiver is ready, willing and able to meet the patient's needs as recommended by the inter-professional team: Yes Name of Caregiver: spouse to provide basic post op care and support Transport at Discharge: Transportation Arrangements: Car Destination: Home Needs Prior to Discharge: Needs Prior to Discharge: Discharge Prescriptions Post-Acute Discharge Plan: CM met with patient at bedside. Patient is independent prior to admission. She has good support from spouse. Currently there are no skilled needs identified. TCC will continue to follow POC for discharge planning SIGNATURE: Tiffanie Magaña RN PATIENT NAME: Tiffani Allison DATE: November 26, 2024 TIME: 2:13 [facility]04-28-2025 NoteHNO ID: [id number] Author: SINDY DE LA GARZA MD Service: General Surgery Author Type: Resident Type: Progress Notes Filed: 11/26/2024 07:26 Note Text: GENERAL SURGERY PROGRESS NOTE Tiffani Allison [id number] ASSESSMENT AND PLAN Tiffani Allison is a 39 year old female with PMHx HTN, GERD, hypothyroidism, psoriatic arthritis, severe obesity who is now s/p ventral incisional hernia repair with bilateral TAR, placement of retromuscular mesh (Dr. Jeff) concomitantly with laparoscopic converted to open paraesophageal hernia repair, gastric sleeve conversion to Becki-en-Y bypass (Dr. Grissom). Doing well post op, has return of bowel function, tolerating B2 diet. Off ketamine drip PLAN: -wean off PHOTO EQUIPMENT TECHNICIAN tolday -Bariatric stage diet -Continue DVT ppx -IS, OOB -Maintain SANJUANITA drains -Tentatively home tomorrow Sindy De La Garza MD PGY5 General Surgery Resident [id number] Patient Active Hospital Problem List: Ventral hernia without obstruction or gangrene Date Noted: 11/23/2024 SUBJECTIVE: Pain controlled No nausea Passing flatus OBJECTIVE: BP 146/75 Pulse 79 Temp 37 ?C (98.6 ?F) (Oral) Resp 16 LMP 11/23/2024 (Exact Date) SpO2 97% There is no height or weight on file to calculate BMI. GENERAL: Alert and oriented, no acute distress, cooperative. LUNGS: Non labored breathing ABDOMEN: soft, appropriately tender, nondistended. - SANJUANITA drains serosanguineous WOUND: clean, dry and intact Labs: CBC, Coags, BMP, Mg, Phos Recent Labs 11/25/24 1026 11/25/24 0407 11/25/24 0406 11/24/24 0544 WBC 8.65 -- 7.84 9.78 HB 12.2 -- 11.0* 12.6 HCT 36.1 -- 33.1* 37.2 PLT 212 -- 205 256 NA 141 141 -- 142 K 4.1 6.7* -- 3.9 CHLOR 106 108* -- 108* CO2 27 25 -- 24 BUN 5* 4* -- 6* CREAT 0.53* 0.47* -- 0.59 GLUC 96 76 -- 97 CA 8.5 8.0* -- 8.3* MG -- 1.8 -- 2.2 P -- 2.1* -- 3.0 Liver Function, Amylase, AND Lipase I/O past 24h: Intake/Output Summary (Last 24 hours) at 11/26/2024 0722 Last data filed at 11/26/2024 0500 Gross per 24 hour Intake 904 ml Output 423 ml Net 481 ml LDA: Lines, Drains, and Airways Line Duration Peripheral 11/23/24 0649 Short Left Forearm 20 Gauge 3 days Peripheral 11/23/24 [facility] Short Right Wrist 18 Gauge 3 days Peripheral 11/23/24 1537 Right Hand 18 Gauge 2 days Drain Duration Drain/Tube [facility] Left Upper Quadrant Abdomen Drain #1 -- days Drain/Tube 11/23/24 1604 [facility] Dipak Rodriguez Right Upper Quadrant Abdomen Drain #3 2 days Drain/Tube 11/23/24 1605 [facility] Dipak Rodriguez Left Lower Quadrant Abdomen Drain #2 2 days SURGERY/PROCEDURE: Procedure(s) and Anesthesia Type: Panel 1: * HERNIORRHAPHY INCISIONAL ABDOMINAL RECURRENT REDUCIBLE GREATER THAN 10cm - General Panel 2: * LAPAROSCOPIC RPR PARAESOPHAGEAL HERNIA W/O FUNDOPLASTY W/ MESH - General * LAPAROSCOPIC GASTRIC RESTRICTIVE SURG W/ BYPASS AND BECKI-EN-Y 150CM OR LESS/ SLEEVE TO BYPASS - [facility] NoteHNO ID: [id number] Author: TUAN MORSE MD Service: General Surgery Author Type: Resident Type: Progress Notes Filed: 11/25/2024 10:29 Note Text: GENERAL SURGERY PROGRESS NOTE Tiffani Allison [id number] ASSESSMENT AND PLAN Tiffani Allison is a 39 year old female with PMHx HTN, GERD, hypothyroidism, psoriatic arthritis, severe obesity who is now s/p ventral incisional hernia repair with bilateral TAR, placement of retromuscular mesh (Dr. Jeff) concomitantly with laparoscopic converted to open paraesophageal hernia repair, gastric sleeve conversion to Becki-en-Y bypass (Dr. Grissom). Interval: POD2 - recovering appropriately. Pain better controlled. Diet progression and VTE ppx per bariatric service. Hgb down to 11 from 12.6, holding VTE PPX until Hgb stable on recheck. [facility] Will engage APMS for assistance in management of postoperative pain. Ketamine GTT, PHOTO EQUIPMENT TECHNICIAN. - potassium elevated on AM labs, rechecking - Ambulate, PT/OT - Incentive spirometry. Wean supplemental O2 as able - Diet progression per bariatric surgery. Phase II liquids - OK for VTE chemoprophylaxis - Continue [facility] care Dispo: [facility] Patient discussed with Dr. Tomer Morse MD PGY-4 Patient Active Hospital Problem List: Ventral hernia without obstruction or gangrene Date Noted: 11/23/2024 SUBJECTIVE: No acute events overnight. Pain better controlled after addition of ketamine. No nausea or vomiting. Passing flatus, no BM. Ambulating frequently OBJECTIVE: BP 155/87 Pulse 82 Temp 36.7 ?C (98.1 ?F) (Oral) Resp 16 LMP 11/23/2024 (Exact Date) SpO2 99% There is no height or weight on file to calculate BMI. GENERAL: Alert and oriented, no acute distress, cooperative. LUNGS: Non labored breathing ABDOMEN: soft, appropriately tender, nondistended. - SANJUANITA drains serosanguineous WOUND: clean, dry and intact Labs: CBC, Coags, BMP, Mg, Phos Recent Labs 04/27/25 0407 11/25/24 0406 11/24/24 0544 WBC -- 7.84 9.78 HB -- 11.0* 12.6 HCT -- 33.1* 37.2 PLT -- 205 256 NA 141 -- 142 K 6.7* -- 3.9 CHLOR 108* -- 108* CO2 25 -- 24 BUN 4* -- 6* CREAT 0.47* -- 0.59 GLUC 76 -- 97 CA 8.0* -- 8.3* MG 1.8 -- 2.2 P 2.1* -- 3.0 Liver Function, Amylase, AND Lipase I/O past 24h: Intake/Output Summary (Last 24 hours) at 11/25/2024 1023 Last data filed at 11/25/2024 1008 Gross per 24 hour Intake 2660.14 ml Output 2510 ml Net 150.14 ml LDA: Lines, Drains, and Airways Line Duration Peripheral 11/23/24 0649 Short Left Forearm 20 Gauge 2 days Peripheral 11/23/24 [facility] Short Right Wrist 18 Gauge 2 days Peripheral 11/23/24 1537 Right Hand 18 Gauge 1 day Drain Duration Drain/Tube [facility] Left Upper Quadrant Abdomen Drain #1 -- days Drain/Tube 11/23/24 1604 [facility] Dipak Rodriguez Right Upper Quadrant Abdomen Drain #3 1 day Drain/Tube 11/23/24 1605 [facility] Dipak Rodriguez Left Lower Quadrant Abdomen Drain #2 1 day SURGERY/PROCEDURE: Procedure(s) and Anesthesia Type: Panel 1: * HERNIORRHAPHY INCISIONAL ABDOMINAL RECURRENT REDUCIBLE GREATER THAN 10cm - General Panel 2: * LAPAROSCOPIC RPR PARAESOPHAGEAL HERNIA W/O FUNDOPLASTY W/ MESH - General * LAPAROSCOPIC GASTRIC RESTRICTIVE SURG W/ BYPASS AND BECKI-EN-Y 150CM OR LESS/ SLEEVE TO BYPASS - [facility] NoteHNO ID: [id number] Author: TUAN MORSE MD Service: General Surgery Author Type: Resident Type: Progress Notes Filed: 11/24/2024 11:01 Note Text: GENERAL SURGERY PROGRESS NOTE Tiffani Allison [id number] ASSESSMENT AND PLAN Tiffani Allison is a 39 year old female with PMHx HTN, GERD, hypothyroidism, psoriatic arthritis, severe obesity who is now s/p ventral incisional hernia repair with bilateral TAR, placement of retromuscular mesh (Dr. Jeff) concomitantly with laparoscopic converted to open paraesophageal hernia repair, gastric sleeve conversion to Bekci-en-Y bypass (Dr. Grissom). Interval: POD1 - recovering appropriately. Will continue to work on pain control. Diet progression and VTE ppx per bariatric service. [facility] Will engage APMS for assistance in management of postoperative pain. - Ambulate, PT/OT - Incentive spirometry. Wean supplemental O2 as able - Diet progression per bariatric surgery. OK to advance from our perspective - OK for VTE chemoprophylaxis - Continue [facility] care Dispo: [facility] Patient discussed with Dr. Tomer Morse MD PGY-4 Patient Active Hospital Problem List: Ventral hernia without obstruction or gangrene Date Noted: 11/23/2024 SUBJECTIVE: No acute events overnight. Coughing up phlegm this AM. Reports her pain control could be improved. No nausea or vomiting. No flatus or BM. OBJECTIVE: BP 137/77 Pulse 89 Temp 36.9 ?C (98.4 ?F) (Oral) Resp 18 LMP 11/23/2024 (Exact Date) SpO2 96% There is no height or weight on file to calculate BMI. GENERAL: Alert and oriented, no acute distress, cooperative. LUNGS: Non labored breathing ABDOMEN: soft, appropriately tender, nondistended. - SANJUANITA drains serosanguineous WOUND: clean, dry and intact Labs: CBC, Coags, BMP, Mg, Phos Recent Labs 11/24/24 0544 WBC 9.78 HB 12.6 HCT 37.2 PLT 256 NA 142 K 3.9 CHLOR 108* CO2 24 BUN 6* CREAT 0.59 GLUC 97 CA 8.3* MG 2.2 P 3.0 Liver Function, Amylase, AND Lipase I/O past 24h: Intake/Output Summary (Last 24 hours) at 11/24/2024 1050 Last data filed at 11/24/2024 0600 Gross per 24 hour Intake 5398.37 ml Output 5280 ml Net 118.37 ml LDA: Lines, Drains, and Airways Line Duration Peripheral 11/23/24 0649 Short Left Forearm 20 Gauge 1 day Peripheral 11/23/24 [facility] Short Right Wrist 18 Gauge 1 day Peripheral 11/23/24 1537 Right Hand 18 Gauge <1 day Drain Duration Drain/Tube [facility] Left Upper Quadrant Abdomen Drain #1 -- days Indwelling Urinary Catheter 11/23/24 0810 [facility] 3-way Catheter 18 Fr 1 day Drain/Tube 11/23/24 1604 [facility] Dipak Rodriguez Right Upper Quadrant Abdomen Drain #3 <1 day Drain/Tube 11/23/24 1605 [facility] Dipak Rodriguez Left Lower Quadrant Abdomen Drain #2 <1 day SURGERY/PROCEDURE: Procedure(s) and Anesthesia Type: Panel 1: * HERNIORRHAPHY INCISIONAL ABDOMINAL RECURRENT REDUCIBLE GREATER THAN 10cm - General Panel 2: * LAPAROSCOPIC RPR PARAESOPHAGEAL HERNIA W/O FUNDOPLASTY W/ MESH - General * LAPAROSCOPIC GASTRIC RESTRICTIVE SURG W/ BYPASS AND BECKI-EN-Y 150CM OR LESS/ SLEEVE TO BYPASS - [facility] NoteHNO ID: [id number] Author: JACQUIE HARRIS APRN.PUPPY TRAINER Service: ? Author Type: Nurse Custom Applicator Type: Anesthesia Procedure Notes Filed: 11/23/2024 15:55 Note Text: ANESTHESIOLOGY PROCEDURE NOTE PIV General Information Procedure Start Time/Medication Administration: 11/23/2024 3:37 PM Procedure End Time: 11/23/2024 3:37 PM Patient Location: OR Staffing Anesthesiologist: Angelica Roque MD PUPPY TRAINER: Jacquie Harris APRN.PUPPY TRAINER Performed by: PUPPY TRAINER Preparation Sterility Preparation: hand hygiene performed prior to procedure, surgical cap used, mask used, skin prep agent completely dried prior to procedure Site Prep: alcohol Procedure Details Indication: need for IV access Needle Size/Type: 18 gauge angiocath Orientation: Right Location: Hand Imaging Guidance Used: No SIGNATURE: Jacquie Harris APRN.PUPPY TRAINER PATIENT NAME: Tiffani Allison DATE: November 23, 2024 TIME: 3:37 PM CSN: [id number]04-25-2025 NoteHNO ID: [id number] Author: MARLENE LINK APRN.PUPPY TRAINER Service: ? 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 Anesthesiologist: Angelica Roque MD PUPPY TRAINER: Marlene Link APRN.PUPPY TRAINER Performed by: WILD Indications and Patient Condition Indications for airway management: anesthesia Preoxygenated: yes anesthesia circuit Patient position: sniffing Method: asleep Cricoid Pressure: No Manual In-Line Stabilization: No Difficult Mask: No Final Airway Details Final airway type: endotracheal airway Final Endotracheal Airway: ETT Cuffed: yes Devices used: Christy Endotracheal tube insertion site: oral Blade size: #3 ETT size (mm): 7.0 Measured from: teeth Measurement (cm): 21 Placement verified by: capnometry Number of attempts at approach: 1 Failed airway: no Unrecognized esophageal intubation: no Airway not difficult SIGNATURE: Marlene Link APRN.PUPPY TRAINER PATIENT NAME: Tiffani Allison DATE: November 23, 2024 TIME: 9:27 AM CSN: [id number]04-11-2025 Telephone encounter Note* Telephone Encounter - Kristi Watts RN - 11/09/2024 1:08 PM EDT [facility] COORDINATION SURGERY APPROVAL CALL Received e-mail confirmation of insurance approval for bariatric surgery.Pre- operative call placed to the patient, this RN spoke with patient and agreed upon a surgery date of November 23 2024. Surgicalepisode request sent to [facility] surgery scheduling. Patient understands that the surgery type is Gastric Bypass as approved by insurance. Creatinine level 0.67 Patient instructed to start pre-op 800 calorie total protein liquid diet Atkins (5) daily beginning2 weeks prior to surgery. - Stop all ASA and NSAID products, [place] 3 fish oil, herbal products such as ginko etc. Stop vitamins EXCEPT B COMPLEX- take this up to the day before surgery - Medication List reviewed and patient will contact prescribing physician regarding use of n/a while on pre-operative diet. - Patient denies use of N/A. Talk with your prescribing MD if you take the following - should be monitored closely during the preoperative liquid diet with most held at the start of the diet given them. ALL of these medications should AT LEAST be held the day prior to surgery Actos Amaryl Glipizide Glucophage Metformin Anti-obesity medications - stop 1 week before surgery Phentermine Qsymia Contrave Vyvanse Diethylproprion Phendimetrazine Saxenda Wegovy SGLT2 inhibitors should be stopped 3-4 days before surgery - avoid using during the first weeks following bariatric surgery because of the risk of dehydration Jardiance Farxiga Invokana Sleep apnea requiring treatment? No. Patient will require FMLA forms to be completed? No. - Ale video assigned. - Introduced Bariatric destination imagination coordinator Yes - All questions and concerns addressed and patient verbalized understanding. - Patient case reviewed. All nutrition appointments completed, psychology clearance obtained, surgeon visit and procedure type verified, medical optimization obtained and all testing complete. Does patient have Con ABO? Yes, patient has Con ABO. [facility] - a research program mentioned to patient and the bermudez points below reviewed: o Voluntary participation won t impact your care o You are being asked to donate your leftover blood and other bodily fluids that are collected during treatment and are normally thrown out to instead be collected and stored for future research o Future research could include genetic testing o Future research with your samples may be done by scientists or scientists at other institutions o All samples are stored without any identifiable private information, and your identity will not be released to anyone outside of without a special review process that is required by law Study Explained: Yes Patient info sent via My Chart: Yes Kristi Watts RN [facility]04-11-2025 Miscellaneous Notes* Telephone Encounter - Kristi Watts RN - 11/09/2024 1:08 PM EDT [facility] COORDINATION SURGERY APPROVAL CALL Received e-mail confirmation of insurance approval for bariatric surgery.Pre- operative call placed to the patient, this RN spoke with patient and agreed upon a surgery date of November 23 2024. Surgicalepisode request sent to [facility] surgery scheduling. Patient understands that the surgery type is Gastric Bypass as approved by insurance. Creatinine level 0.67 Patient instructed to start pre-op 800 calorie total protein liquid diet Atkins (5) daily beginning2 weeks prior to surgery. - Stop all ASA and NSAID products, [place] 3 fish oil, herbal products such as ginko etc. Stop vitamins EXCEPT B COMPLEX- take this up to the day before surgery - Medication List reviewed and patient will contact prescribing physician regarding use of n/a while on pre-operative diet. - Patient denies use of N/A. Talk with your prescribing MD if you take the following - should be monitored closely during the preoperative liquid diet with most held at the start of the diet given them. ALL of these medications should AT LEAST be held the day prior to surgery Actos Amaryl Glipizide Glucophage Metformin Anti-obesity medications - stop 1 week before surgery Phentermine Qsymia Contrave Vyvanse Diethylproprion Phendimetrazine Saxenda Wegovy SGLT2 inhibitors should be stopped 3-4 days before surgery - avoid using during the first weeks following bariatric surgery because of the risk of dehydration Jardiance Farxiga Invokana Sleep apnea requiring treatment? No. Patient will require FMLA forms to be completed? No. - Ale video assigned. - Introduced Bariatric destination imagination coordinator Yes - All questions and concerns addressed and patient verbalized understanding. - Patient case reviewed. All nutrition appointments completed, psychology clearance obtained, surgeon visit and procedure type verified, medical optimization obtained and all testing complete. Does patient have Con ABO? Yes, patient has Con ABO. [facility] - a research program mentioned to patient and the bermudez points below reviewed: o Voluntary participation won t impact your care o You are being asked to donate your leftover blood and other bodily fluids that are collected during treatment and are normally thrown out to instead be collected and stored for future research o Future research could include genetic testing o Future research with your samples may be done by scientists or scientists at other institutions o All samples are stored without any identifiable private information, and your identity will not be released to anyone outside of without a special review process that is required by law Study Explained: Yes Patient info sent via My Chart: Yes Kristi Watts RN [facility] NoteHNO ID: [id number] Author: COLETTE MENDOZA, PhD Service: ? Author Type: Psychologist Type: Progress Notes Filed: 11/06/2024 16:26 Note Text: [facility] [place] Name: Tiffani Allison MR#: [id number] Date: 11/06/2024 Time: 1 hour Referred by: Dr. Jeff Reason for Referral: address psychological factors as they can affect post-operative recovery. Information relayed back to referral source via electronic medical record Her chart was reviewed and she gave her own complex medical and social history. She was seen with her . In addition to her hernia, she also has anxiety and it is helped by Cymbalta. The basic underlying psychological and physiological mechanisms behind the brain body connection were explained. She was introduced to the concepts and techniques that she can employ to help with pain and healing after surgery. She was given the link to the Behavioral Medicine Program website, instructed on the use of the relaxation recordings, and told of the informational content. She was given the opportunity to ask questions and informed that she could be seen again. Colette Webb, Ph.D.[facility]04-08-2025 History of Present illness Narrative* Colette Mendoza, PhD - 11/06/2024 4:23 PM EDT [facility] [place] Name: Tiffani Allison MR#: [id number] Date: 11/06/2024 Time: 1 hour Referred by: Dr. Jeff Reason for Referral: address psychological factors as they can affect post- operative recovery. Information relayed back to referral source via electronic medical record Her chart was reviewed and she gave her own complex medical and social history. She was seen with her . In addition to her hernia, she also has anxiety and it is helped by Cymbalta. The basic underlying psychological and physiological mechanisms behind the brain body connection were explained. She was introduced to the concepts and techniques that she can employ to help with pain and healing after surgery. She was given the link to the Behavioral Medicine Program website, instructed on the use of the relaxation recordings, and told of the informational content. She was given the opportunity to ask questions and informed that she could be seen again. Colette Webb, Ph.D. documented in this encounterCleveland [id number] Instructions* Patient Instructions* Lachelle Banegas PA-C - 11/06/2024 10:48 AM EDT Images from the original note were not included. [facility] PATIENT PREOPERATIVE INSTRUCTIONS Ginger Silveira APRN.C* has scheduled you for your procedure at this surgery center: * No surgery found * [facility] [place] Scheduling Office: [phone] --[address] [place] [address]. Please read below carefully for your personalized instructions. Dietary Restrictions: - No solid food after midnight. - You may have 12 ounces of clear liquids (water, clear juices such as apple juice or gatorade, carbonated beverages, clear tea, black coffee, jello) until 2 hours before scheduled arrival at facility. Medications: Unless instructed differently below, stay on all of your medications until your surgery. If you start any new medications after today's visit, please contact your surgeon. Pre-Surgery Med Instructions Medication Instructions DULoxetine (CYMBALTA) 30 mg capsule If you normally take this medication in the morning, take the morning of surgery. metFORMIN (GLUCOPHAGE) 500 mg tablet Do not take the day of surgery levothyroxine (SYNTHROID) 25 mcg tablet If you normally take this medication in the morning, take the morning of surgery. amLODIPine (NORVASC) 10 mg tablet If you normally take this medication in the morning, take the morning of surgery. levothyroxine (SYNTHROID) 137 mcg tablet If you normally take this medication in the morning, take the morning of surgery. melatonin 1 mg chew Hold 7 days before surgery. metoprolol succinate ER (TOPROL XL) 100 mg If you normally take this medication in the morning, take the morning of surgery. omeprazole (PRILOSEC) 40 mg capsule If you normally take this medication in the morning, take the morning of surgery. If you start any new medications after today's visit, please contact the surgeon's office. If you are currently using a [id number] injectable or oral medication for diabetes or weight loss such as Dulaglutide (Trulicity), Exenatide (Byetta, Bydureon), Liraglutide (Victoza, Saxenda), Semaglutide (Ozempic, Wegovy, Rybelsus), or Tirzepatide (Mounjaro), the medicine should be stopped at least 7 days before surgery. These medicines can cause food to remain in your stomach for a very longtime and increase the risks from surgery and anesthesia. Not stopping the medication for a long enough time may result in your surgery being rescheduled. Blood Thinning Medications: - Stop NSAIDS (Ibuprofen, Advil, Aleve, Motrin, Celebrex, Mobic, etc.) 7 days before surgery, as directed by your surgeon. - Stop Aspirin 7 days before surgery, as directed by your surgeon. - Stop ALL herbal and dietary supplements 7 days before surgery. - You may take Tylenol (Acetaminophen) or any of your pain medications that do not contain aspirin or NSAIDS as needed. Important Reminders: - If you use CPAP/BIPAP, bring the machine with you to the surgery center. - If you are prescribed inhalers for breathing, continue using them. If you are on dialysis, please check with your dialysis center or conference assistant to see if any adjustments need to be made to your schedule for the week of your surgery - Candy, mints, and tobacco products are NOT permitted the morning of surgery. - Hearing aids, dentures and glasses may be worn the morning of surgery. - NO jewelry, body piercings, makeup, hairpins or contacts are to be worn the day of surgery. If you develop symptoms such as a fever, cold, or flu, or have other changes to your health within TWO DAYS of scheduled surgery or the morning of surgery, please contact the surgery center above. Personal Belongings: -Please have photo ID and insurance cards. -If you do not have a copy of advance directives on file with us, please bring a copy with you on the day of surgery. - Leave ALL valuables and money at home or with family members. For Outpatient Procedures: - YOU MUST HAVE A RESPONSIBLE ASSOCIATE BUSINESS ANALYST TAKE YOU HOME. A ACTIVATED SLUDGE OPERATOR OR DATA ENTRY COORDINATOR CANNOT BE MADE A RESPONSIBLE ASSOCIATE BUSINESS ANALYST. - We recommend that a responsible person stays with you overnight to take care of you. - You cannot stay in a hotel alone after outpatient surgery. You will not be permitted to have yoursurgery, if you do not have someone to take care of you. Arrival Time for Surgery: - To obtain your arrival time for surgery, call your physician's office the day before your surgery. - If you have received different instructions about finding out your arrival time from your surgeon, please follow those instructions. - If your surgery is scheduled for Tuesday, call the Tuesday before. Your surgeon s law enforcement instructor will tell you what time to call the office. - If you have not reached the departmental law enforcement instructor by 5 P.M., call [phone] after 5 P.M. the day before your surgery. Please be aware that emergency situations arise, which may delay or change your surgical time. If this happens, we will notify you as soon as possible and regret any inconvenience. If you already have an Advance Directive, please fax a copy to [phone] or email to for it to be added to your chart. If you do not have an Advance Directive, you can find the appropriate form and more information at [email or web address]. We recommend that youcomplete the Advance Directive form found on the website and bring it with you the day of your surgery. It can be witnessed and scanned into your chart that day. Lachelle Banegas PA-C documented [facility]Prov[facility]04-[facility] History and physical note * Lachelle Banegas PA-C - 11/06/2024 10:21 AM EDT Images from the original note were not included. [facility] HISTORY AND PHYSICAL EXAMINATION SERVICE DATE: 11/06/2024 SERVICE TIME: 10:41 AM PRIMARY CARE PHYSICIAN: Elisabeth Beckman NP Assessment Patient has the following medical conditions which may affect danielle-operative course: Hypertension Stable, complaint on AMLODIPINE 10 MG TABLET Take 10 mg by mouth. METOPROLOL SUCCINATE ER 100 MG TABLET,EXTENDED RELEASE 24 HR Take 100 mg by mouth. Follows with PCP. Last 3 Encounter BP Readings: Date: BP: 11/06/2024 139/88 04/24/2024 144/82 04/16/2024 149/79 GERD (gastroesophageal reflux disease) Symptoms controlled with PPI Hypothyroidism Stable on Synthroid Inappropriate sinus tachycardia (HCC) Managed with metoprolol Iron deficiency anemia Hemoglobin (g/dL) Date Value 11/06/2024 14.5 Hematocrit (%) Date Value 11/06/2024 43.4 WBC (k/uL) Date Value 11/06/2024 11.25 Stable Insulin resistance Managed with Metformin Psoriatic arthritis (HCC) Managed with NSAIDS Class 3 severe obesity without serious comorbidity with body mass index (BMI) of 40.0 to 44.9 in adult (HCC) Body mass index is 45.52 kg/m . ANESTHESIA FINDINGS: Intubation History: No abnormal airway history Significant Anesthesia Considerations: potential postop nausea/vomiting Airway History: No abnormal airway history Alberto Activity Status Index: METS: Walk indoors, such as around the house (1.75 METs) Do light work around the house, such as dusting or washing dishes (2.70 METs) Take care of self; that is eating, dressing, bathing, using the toilet (2.75 METs) Walk a block or two on level ground (2.75 METs) Do moderate work around the house, such as vacuuming, sweeping floors, or carrying in groceries (3.50 METs) Do yardwork, such as raking leaves, weeding, or pushing a power mower (4.50 METs) Climb a flight of stairs or walk up a hill (5.50 METs) DASI Score: 23.45 Patient denies any chest pain or undue shortness of breath with the above physical activity. STOP-Bang Score: Has or is being treated for high blood pressure BMI greater than 35 kg/m^2 Denies snoring loudly Denies feeling tired, fatigued, or sleepy during the daytime Has not been observed to stop breathing or choking/gasping during sleep Patient 50 years old or younger Does not have a large neck Non-male patient STOP-Bang Score: 2 I - PHYSICAL EVALUATION AIRWAY Patient intubated: No. Tracheostomy tube not present Mallampati: III. TM distance: >3 FB. Neck ROM: full ROM without neurological symptoms. Mouth opening: adequate. Short neck: no. Thick neck: no Lip Bite Test: I Microretrognathia/Micronagthia/Recessed Chin: No DENTAL Dental findings: teeth intact. Additional comments: +caps. II - ANESTHESIA PLAN Beta Harsh Monitoring Plan Post Procedure Analgesic Plan Prepared for surgery: This patient is optimally prepared for surgery pending LABS. CONSULTS: Patient does not require consults for optimization at this time. The Following Tests/Procedures Have Been Initiated: Labs and EKG per surgical service Planned Anesthetic: Per anesthesia choice REASON FOR VISIT: Tiffani Allison is a 39 year old female who is scheduled for at the request of Dr. Ginger Silveira for consultation. My final recommendation will be communicated back to the requesting physician by way of shared medical record or letter. Subjective CHIEF COMPLAINT: Pre-op exam HPI: Tiffani Allison is a 39 year old female who presents to [facility] for the above procedure. Patient reports history of hiatal hernia. Denies any CP, SOB, fever, chills, n/v/d, or dizziness. Recommended above procedure and elects to proceed. Patient is scheduled for procedure on REVIEW OF SYSTEMS: General: No weight loss, malaise or fevers. Neurological: No history of TIA's, stroke, OFFAL TRIMMER tumor, impaired sensorium, hemiplegia, paraplegia orquadraplegia. No neurological symptoms or problems. Respiratory: No history of current cough or dyspnea, or pneumonia in the past 6 weeks. No history of respiratory/pulmonary symptoms or problems. Cardiovascular: No history of HTN requiring medication, no history of angina, CHF, CO, cardiac surgery or stents. Denies rest pain, gangrene or revascularization/amputation for PVD. No history of cardiovascular symptoms or problems. GI: +hiatal hernia Positive for: GERD : No history of dysuria, frequency or incontinence, stones or chronic kidney disease. No difficulty urinating, nocturia > 1 time per night or hematuria. Endocrine: No history of diabetes. Has not taken steroids within the past 30 days. No history of endocrinological symptoms or problems. Hematology: No history of bleeding or clotting disorder. Patient is not taking anti-coagulation or platelet medications. No history of hematological symptoms or problems. Oncology: No history of CA metastasis, chemo within 30 days, or radiotherapy within 90 days. No history of oncological symptoms or problems. Psych: No history of psychiatric symptoms or problems. Musculoskeletal: Negative for joint pain or swelling, back pain or muscle pain. Skin: Negative for lesions, rash and itching. PAST MEDICAL HISTORY Diagnosis Date Inappropriate sinus tachycardia (HCC) 11/06/2024 Insulin resistance 11/06/2024 PAST SURGICAL HISTORY Procedure Laterality Date APPENDECTOMY HX ARTHROSCOPY KNEE DIAGNOSTIC W/WO SYNOVIAL BX SPX meniscus SECTION HX x3 PT ED BARIATRIC AND METABOLIC REMOVAL GALLBLADDER FAMILY HISTORY Problem Relation Age of Onset Anesthesia Problems No Family History SOCIAL HISTORY: Social History Tobacco Use Smoking status: Never Smokeless tobacco: Current Tobacco comments: Vape Substance Use Topics Alcohol use: Not Currently Drug use: Never Prior to Admission medications as of 11/06/24 1145 Medication Sig Last Dose Taking DULoxetine (CYMBALTA) 30 mg capsule Take 1 capsule by mouth once daily. Yes metFORMIN (GLUCOPHAGE) 500 mg tablet Take 1 tablet by mouth every 12 hours. Yes levothyroxine (SYNTHROID) 25 mcg tablet Take 25 mcg by mouth once daily. Yes amLODIPine (NORVASC) 10 mg tablet Take 10 mg by mouth. Yes levothyroxine (SYNTHROID) 137 mcg tablet TAKE 1 TABLET BY MOUTH IN THE MORNING BEFORE MEALS Yes melatonin 1 mg chew Take by mouth. Yes metoprolol succinate ER (TOPROL XL) 100 mg Take 100 mg by mouth. Yes omeprazole (PRILOSEC) 40 mg capsule Take 40 mg by mouth. Yes meloxicam (MOBIC) 15 mg tablet Take 15 mg by mouth once daily. acetaminophen 325 mg cap Take 650 mg by mouth every 6 hours as needed. fluocinonide (LIDEX) 0.05 % external solution APPLY TO THE AFFECTED AREA(S) topically DAILY ibuprofen (MOTRIN) 800 mg tablet ondansetron orally disintegrating (ZOFRAN ODT) 4 mg disintegrating tablet 1 (one) time each day at the same time vit B-comp w-Fe,Ca,FA<1mg (IRON-VITAMINS ORAL) No medication comments found. ALLERGIES Allergen Reactions Penicillins Anaphylaxis, Cough, Hives, Itching, Rash, Shortness of Breath, Swelling, Unknown Other Reaction(s): throat swelling and hives Topiramate Intolerance Other Reaction(s): seizures Covid Immunization Dates Current Care Gaps Covid-19 Vaccine ( season) Never done No completion, postpone, frequency change, or communication history exists for this topic. Objective PAIN ASSESSMENT: VITALS: BP 139/88 Pulse 78 Temp (Src) 97 (Temporal) Ht 5' 10 (1.78m) Wt 317 lb 3.9 oz (143.9kg) SpO2 98% LMP 10/27/2024 BMI 45.52 kg/(m^2). PHYSICAL EXAM: General: alert and oriented, healthy appearance and morbidly obese. Pertinent negatives noted - notdistressed. Skin: normal color, no rash or lesions. HEENT: EOM intact and pupils equal round. Cardiovascular: regular rate and rhythm, normal S1 and S2, no rub, murmurs, or gallop. Respiratory: normal breath sounds, no wheezes or crackles. No chest wall deformity or tenderness. Abdomen: bowel sounds present. Extremities: no deformity, no edema or tenderness, no joint swelling or clubbing. Neurological: normal cognition and motor skills. Diagnostic tests reviewed for today's visit: Lab Value Units Date High Low HB 14.5 g/dL 11/06/2024 15.5 11.5 HCT 43.4 % 11/06/2024 46.0 36.0 WBC 11.25 k/uL 11/06/2024 11.00 3.70 PLT 250 k/uL 11/06/2024 400 150 NA No results within date range. K No results within date range. GLUC No results within date range. BUN No results within date range. CREAT No results within date range. PTSEC 10.9 sec 11/06/2024 13.0 9.7 INR 1.0 no uni* 11/06/2024 1.3 0.9 APTT 24.4 sec 11/06/2024 32.4 23.0 ALT No results within date range. AST No results within date range. TBILI No results within date range. TSH No results within date range. Lab Value Units Date High Low HCGQT No results within date range. UHCG No results within date range. HCG, BODY* No results within date range. Lab Value Units Date High Low ABORHD No results within date range. ABSCREEN No results within date range. No results found for: HBA1C Recent Results (from the past 8760 hours) ECG COMPLETE Collection Time: 11/06/24 9:44 AM Result Value Ventricular Rate 75 Atrial Rate 75 P-R Interval 148 QRS Duration 98 QT Interval 406 QTC Calculation (Bazett) 453 Calculated P [place] 39 Calculated R [place] 40 Calculated T [place] 40 Impression NORMAL SINUS RHYTHM NORMAL ECG No results found for this or any previous visit (from the past 96955 hours). Spirometry Data No data to display Instructions Given to Patient: Instructions located in the after visit summary. Patient given verbal and written preop instructions and voices comprehension and compliance. SIGNATURE: Lachelle Banegas PA-C PATIENT NAME: Tiffani Allison DATE: 11/06/2024 TIME: 10:42 AM [facility]04-08-2025 History and physical note* Lachelle Banegas PA-C - 11/06/2024 10:21 AM EDT Images from the original note were not included. [facility] HISTORY AND PHYSICAL EXAMINATION SERVICE DATE: 11/06/2024 SERVICE TIME: 10:41 AM PRIMARY CARE PHYSICIAN: Elisabeth Beckman NP Assessment Patient has the following medical conditions which may affect danielle-operative course: Hypertension Stable, complaint on AMLODIPINE 10 MG TABLET Take 10 mg by mouth. METOPROLOL SUCCINATE ER 100 MG TABLET,EXTENDED RELEASE 24 HR Take 100 mg by mouth. Follows with PCP. Last 3 Encounter BP Readings: Date: BP: 11/06/2024 139/88 04/24/2024 144/82 04/16/2024 149/79 GERD (gastroesophageal reflux disease) Symptoms controlled with PPI Hypothyroidism Stable on Synthroid Inappropriate sinus tachycardia (HCC) Managed with metoprolol Iron deficiency anemia Hemoglobin (g/dL) Date Value 11/06/2024 14.5 Hematocrit (%) Date Value 11/06/2024 43.4 WBC (k/uL) Date Value 11/06/2024 11.25 Stable Insulin resistance Managed with Metformin Psoriatic arthritis (HCC) Managed with NSAIDS Class 3 severe obesity without serious comorbidity with body mass index (BMI) of 40.0 to 44.9 in adult (HCC) Body mass index is 45.52 kg/m . ANESTHESIA FINDINGS: Intubation History: No abnormal airway history Significant Anesthesia Considerations: potential postop nausea/vomiting Airway History: No abnormal airway history Alberto Activity Status Index: METS: Walk indoors, such as around the house (1.75 METs) Do light work around the house, such as dusting or washing dishes (2.70 METs) Take care of self; that is eating, dressing, bathing, using the toilet (2.75 METs) Walk a block or two on level ground (2.75 METs) Do moderate work around the house, such as vacuuming, sweeping floors, or carrying in groceries (3.50 METs) Do yardwork, such as raking leaves, weeding, or pushing a power mower (4.50 METs) Climb a flight of stairs or walk up a hill (5.50 METs) DASI Score: 23.45 Patient denies any chest pain or undue shortness of breath with the above physical activity. STOP-Bang Score: Has or is being treated for high blood pressure BMI greater than 35 kg/m^2 Denies snoring loudly Denies feeling tired, fatigued, or sleepy during the daytime Has not been observed to stop breathing or choking/gasping during sleep Patient 50 years old or younger Does not have a large neck Non-male patient STOP-Bang Score: 2 I - PHYSICAL EVALUATION AIRWAY Patient intubated: No. Tracheostomy tube not present Mallampati: III. TM distance: >3 FB. Neck ROM: full ROM without neurological symptoms. Mouth opening: adequate. Short neck: no. Thick neck: no Lip Bite Test: I Microretrognathia/Micronagthia/Recessed Chin: No DENTAL Dental findings: teeth intact. Additional comments: +caps. II - ANESTHESIA PLAN Beta [facility] Monitoring Plan Post Procedure Analgesic Plan Prepared for surgery: This patient is optimally prepared for surgery pending LABS. CONSULTS: Patient does not require consults for optimization at this time. The Following Tests/Procedures Have Been Initiated: Labs and EKG per surgical service Planned Anesthetic: Per anesthesia choice REASON FOR VISIT: Tiffani Allison is a 39 year old female who is scheduled for at the request of Dr. Ginger Silveira for consultation. My final recommendation will be communicated back to the requesting physician by way of shared medical record or letter. Subjective CHIEF COMPLAINT: Pre-op exam HPI: Tiffani Allison is a 39 year old female who presents to [facility] for the above procedure. Patient reports history of hiatal hernia. Denies any CP, SOB, fever, chills, n/v/d, or dizziness. Recommended above procedure and elects to proceed. Patient is scheduled for procedure on REVIEW OF SYSTEMS: General: No weight loss, malaise or fevers. Neurological: No history of TIA's, stroke, OFFAL TRIMMER tumor, impaired sensorium, hemiplegia, paraplegia orquadraplegia. No neurological symptoms or problems. Respiratory: No history of current cough or dyspnea, or pneumonia in the past 6 weeks. No history of respiratory/pulmonary symptoms or problems. Cardiovascular: No history of HTN requiring medication, no history of angina, CHF, CO, cardiac surgery or stents. Denies rest pain, gangrene or revascularization/amputation for PVD. No history of cardiovascular symptoms or problems. GI: +hiatal hernia Positive for: GERD : No history of dysuria, frequency or incontinence, stones or chronic kidney disease. No difficulty urinating, nocturia > 1 time per night or hematuria. Endocrine: No history of diabetes. Has not taken steroids within the past 30 days. No history of endocrinological symptoms or problems. Hematology: No history of bleeding or clotting disorder. Patient is not taking anti-coagulation or platelet medications. No history of hematological symptoms or problems. Oncology: No history of CA metastasis, chemo within 30 days, or radiotherapy within 90 days. No history of oncological symptoms or problems. Psych: No history of psychiatric symptoms or problems. Musculoskeletal: Negative for joint pain or swelling, back pain or muscle pain. Skin: Negative for lesions, rash and itching. PAST MEDICAL HISTORY Diagnosis Date Inappropriate sinus tachycardia (HCC) 11/06/2024 Insulin resistance 11/06/2024 PAST SURGICAL HISTORY Procedure Laterality Date APPENDECTOMY HX ARTHROSCOPY KNEE DIAGNOSTIC W/WO SYNOVIAL BX SPX meniscus SECTION HX x3 PT ED BARIATRIC AND METABOLIC REMOVAL GALLBLADDER FAMILY HISTORY Problem Relation Age of Onset Anesthesia Problems No Family History SOCIAL HISTORY: Social History Tobacco Use Smoking status: Never Smokeless tobacco: Current Tobacco comments: Vape Substance Use Topics Alcohol use: Not Currently Drug use: Never Prior to Admission medications as of 11/06/24 1145 Medication Sig Last Dose Taking DULoxetine (CYMBALTA) 30 mg capsule Take 1 capsule by mouth once daily. Yes metFORMIN (GLUCOPHAGE) 500 mg tablet Take 1 tablet by mouth every 12 hours. Yes levothyroxine (SYNTHROID) 25 mcg tablet Take 25 mcg by mouth once daily. Yes amLODIPine (NORVASC) 10 mg tablet Take 10 mg by mouth. Yes levothyroxine (SYNTHROID) 137 mcg tablet TAKE 1 TABLET BY MOUTH IN THE MORNING BEFORE MEALS Yes melatonin 1 mg chew Take by mouth. Yes metoprolol succinate ER (TOPROL XL) 100 mg Take 100 mg by mouth. Yes omeprazole (PRILOSEC) 40 mg capsule Take 40 mg by mouth. Yes meloxicam (MOBIC) 15 mg tablet Take 15 mg by mouth once daily. acetaminophen 325 mg cap Take 650 mg by mouth every 6 hours as needed. fluocinonide (LIDEX) 0.05 % external solution APPLY TO THE AFFECTED AREA(S) topically DAILY ibuprofen (MOTRIN) 800 mg tablet ondansetron orally disintegrating (ZOFRAN ODT) 4 mg disintegrating tablet 1 (one) time each day at the same time vit B-comp w-Fe,Ca,FA<1mg (IRON-VITAMINS ORAL) No medication comments found. ALLERGIES Allergen Reactions Penicillins Anaphylaxis, Cough, Hives, Itching, Rash, Shortness of Breath, Swelling, Unknown Other Reaction(s): throat swelling and hives Topiramate Intolerance Other Reaction(s): seizures Covid Immunization Dates Current Care Gaps Covid-19 Vaccine ( season) Never done No completion, postpone, frequency change, or communication history exists for this topic. Objective PAIN ASSESSMENT: VITALS: BP 139/88 Pulse 78 Temp (Src) 97 (Temporal) Ht 5' 10 (1.78m) Wt 317 lb 3.9 oz (143.9kg) SpO2 98% LMP 10/27/2024 BMI 45.52 kg/(m^2). PHYSICAL EXAM: General: alert and oriented, healthy appearance and morbidly obese. Pertinent negatives noted - notdistressed. Skin: normal color, no rash or lesions. HEENT: EOM intact and pupils equal round. Cardiovascular: regular rate and rhythm, normal S1 and S2, no rub, murmurs, or gallop. Respiratory: normal breath sounds, no wheezes or crackles. No chest wall deformity or tenderness. Abdomen: bowel sounds present. Extremities: no deformity, no edema or tenderness, no joint swelling or clubbing. Neurological: normal cognition and motor skills. Diagnostic tests reviewed for today's visit: Lab Value Units Date High Low HB 14.5 g/dL 11/06/2024 15.5 11.5 HCT 43.4 % 11/06/2024 46.0 36.0 WBC 11.25 k/uL 11/06/2024 11.00 3.70 PLT 250 k/uL 11/06/2024 400 150 NA No results within date range. K No results within date range. GLUC No results within date range. BUN No results within date range. CREAT No results within date range. PTSEC 10.9 sec 11/06/2024 13.0 9.7 INR 1.0 no uni* 11/06/2024 1.3 0.9 APTT 24.4 sec 11/06/2024 32.4 23.0 ALT No results within date range. AST No results within date range. TBILI No results within date range. TSH No results within date range. Lab Value Units Date High Low HCGQT No results within date range. UHCG No results within date range. HCG, BODY* No results within date range. Lab Value Units Date High Low ABORHD No results within date range. ABSCREEN No results within date range. No results found for: HBA1C Recent Results (from the past 8760 hours) ECG COMPLETE Collection Time: 11/06/24 9:44 AM Result Value Ventricular Rate 75 Atrial Rate 75 P-R Interval 148 QRS Duration 98 QT Interval 406 QTC Calculation (Bazett) 453 Calculated P [place] 39 Calculated R [place] 40 Calculated T [place] 40 Impression NORMAL SINUS RHYTHM NORMAL ECG No results found for this or any previous visit (from the past 89220 hours). Spirometry Data No data to display Instructions Given to Patient: Instructions located in the after visit summary. Patient given verbal and written preop instructions and voices comprehension and compliance. SIGNATURE: Lachelle Banegas PA-C PATIENT NAME: Tiffani Allison DATE: 11/06/2024 TIME: 10:42 AM [facility] History of Present illness Narrative* Ran Osullivan DPM - 2024 1:10 PM EDT Patient: Tiffani Allison : 1985 PCP: Elisabeth Beckman NP SUBJECTIVE Pt presents today for follow up of capsulitis and synovitis to the right ankle capsule Currently they rate their pain on a 1-10 scale a 2 States prior treatments of steroid injection and nsaids with positive improvement improvement in the past. States pain is aggrevated with WB. Pt presents today for follow up of capsulitis and synovitis to the right sinus tarsi and ligaments Currently they rate their pain on a 1-10 scale a 2 States prior treatments of 2nd steroid injection and nsaids with positive improvement States pain is aggrevated with WB. Pt currently wearing orthotics with positive improvement. Allergies: Allergies Allergen Reactions Penicillins Anaphylaxis and Unknown Other Reaction(s): throat swelling and hives Penicillin G Unknown Topiramate Other Reaction(s): seizures Past Medical History: Past Medical History: Diagnosis Date Arthritis Cervical disc disorder COVID-19 2019 Depression with anxiety Fracture of ankle GERD (gastroesophageal reflux disease) Hiatal hernia HTN (hypertension) ([facility]) Hypothyroidism (acquired) ([facility] Iron deficiency anemia Kidney stones Lumbosacral disc disease Migraines ([facility]) Polycystic ovary syndrome 2009 Seizure ([facility]) 2019 hx of hospitalization Tear of meniscus of knee Thoracic disc disease Medications: Current Outpatient Medications: acetaminophen (Tylenol) 325 MG capsule, Take 650 mg by mouth every 6 (six) hours if needed for mildpain, Disp: , Rfl: amLODIPine (Norvasc) 10 MG tablet, TAKE 1 TABLET BY MOUTH IN THE MORNING, Disp: 30 tablet, Rfl: 11 aspirin 81 MG EC tablet, Take 81 mg by mouth in the morning. (Patient not taking: Reported on 08/17/2024), Disp: , Rfl: buPROPion XL (Wellbutrin XL) 150 MG 24 hr tablet, TAKE 1 TABLET BY MOUTH IN THE MORNING DO NOT CRUSH, CHEW, OR SPLIT, Disp: 30 tablet, Rfl: 11 fluocinonide (Lidex) 0.05 % external solution, APPLY TO THE AFFECTED AREA(S) topically EVERY OTHER DAY FOR 30 DAYS, Disp: , Rfl: ibuprofen 800 MG tablet, , Disp: , Rfl: levothyroxine (Synthroid, Levoxyl) 137 MCG tablet, TAKE 1 TABLET BY MOUTH IN THE MORNING BEFORE a meal, Disp: 30 tablet, Rfl: 2 levothyroxine (Synthroid, Levoxyl) 25 MCG tablet, TAKE 1 TABLET BY MOUTH IN THE MORNING BEFORE MEALS WITH the current dosage, Disp: 30 tablet, Rfl: 3 metoprolol succinate XL (Toprol-XL) 100 MG 24 hr tablet, TAKE 1 TABLET BY MOUTH IN THE MORNING, Disp: 30 tablet, Rfl: 11 omeprazole (PriLOSEC) [address] capsule, Take 40 mg by mouth in the morning. Take before meals., Disp: , Rfl: venlafaxine XR (Effexor XR) 37.5 MG 24 hr capsule, , Disp: , Rfl: Social History: Social History Socioeconomic History Marital status: Spouse name: Not on file Number of children: Not on file Years of education: Not on file Highest education level: Not on file Occupational History Not on file Tobacco Use Smoking status: Former Smokeless tobacco: Never Tobacco comments: Vape Vaping Use Vaping status: Never Used Substance and Sexual Activity Alcohol use: Not Currently Comment: Socially/rare Drug use: Never Sexual activity: Yes Partners: Male control/protection: Female Sterilization Other Topics Concern Not on file Social History Narrative Not on file Social Drivers of Health Financial Resource Strain: Not on file Food Insecurity: No Food Insecurity (09/22/2023) Received from [employer], [employer] [facility] Screening Within the past 12 months we worried whether our food would run out before we got money to buy more.: Never True Within the past 12 months the food we bought just didn't last and we didn't have money to get more.: Never True Transportation Needs: Not on file Physical Activity: Not on file Stress: Not on file Social Connections: Not on file Intimate Partner Violence: Not on file Housing Stability: Not on file ROS: General: denies fever, chills, fatigue, malaise GI: denies abdominal pain or ulcerations with anti-inflammatory medication OBJECTIVE LE EXAM: DERM: Positive hair growth to b/l feet with good skin turgor noted. Negative openings in skin VASC: Palpable pedal pulsed b/l with warm to cool tibia to toes b/l NEURO: Gross sensation intact digits 1-10 and b/l feet ORTHO: +5/5 DF/PF/IN/EV right, +5/5 DF/PF/IN/EV left. 20 degrees inversion and 10 degrees eversion STJ b/l. Ankle ROM less than 10 degrees b/l. diminished pain on palpation to ligaments and right sinus tarsi diminished pain to the medial and well as lateral gutter of the right tibiotalar joint synovium ASSESSMENT 1. Other specified disorders of synovium, right ankle and foot 2. Sinus tarsitis of right foot 3. Contracture of left ankle PLAN Pt to take nsaids as needed PRN pain Continue with orthotics Patient dispensed soft ankle brace (L1902) prefabricated multiligamentous AFO today.to maintain 90 degree foot to ankle position. ABN signed and in chart for device. The boot was assembled and adjusted for proper fitting by Ran Osullivan DPM and staff. A verbal order was given for dispensing of device. The patient is ambulatory and may benefit functionally from this device. It may be used for the following conditions as noted per medical diagnosis in the EMR Ran Osullivan DPM documented in this encounterMissouri Baptist Medical [id number] History of Present illness Narrative* Ran Osullivan DPM - 09/20/2024 9:40 AM EST Patient: Tiffani Granados Estefany : 1985 PCP: Elisabeth Beckman NP SUBJECTIVE Pt presents today for follow up of capsulitis and synovitis to the right sinus tarsi Currently they rate their pain on a 1-10 scale a 1 States prior treatments of steroid injection and nsaids with positive improvement States pain is aggrevated with WB. Pt is awaiting precertification for orthotics. She is covered for orthotics Patient now presents with complaints of pain to the ankle region that is also been present and had prior x-rays with negative fractures identified. She states pain particularly with ambulation up to 8/10 at times has tried anti- inflammatories and different shoes negative improvement Allergies: Allergies Allergen Reactions Penicillins Anaphylaxis and Unknown Other Reaction(s): throat swelling and hives Penicillin G Unknown Topiramate Other Reaction(s): seizures Past Medical History: Past Medical History: Diagnosis Date Arthritis Cervical disc disorder COVID-19 2019 Depression with anxiety Fracture of ankle GERD (gastroesophageal reflux disease) Hiatal hernia HTN (hypertension) ([facility]) Hypothyroidism (acquired) ([facility]) Iron deficiency anemia Kidney stones Lumbosacral disc disease Migraines ([facility]) Polycystic ovary syndrome 2010 Seizure ([facility]) 2019 hx of hospitalization Tear of meniscus of knee Thoracic disc disease Medications: Current Outpatient Medications: acetaminophen (Tylenol) 325 MG capsule, Take 650 mg by mouth every 6 (six) hours if needed for mildpain, Disp: , Rfl: amLODIPine (Norvasc) 10 MG tablet, TAKE 1 TABLET BY MOUTH IN THE MORNING, Disp: 30 tablet, Rfl: 11 aspirin 81 MG EC tablet, Take 81 mg by mouth in the morning. (Patient not taking: Reported on 08/17/2024), Disp: , Rfl: buPROPion XL (Wellbutrin XL) 150 MG 24 hr tablet, TAKE 1 TABLET BY MOUTH IN THE MORNING DO NOT CRUSH, CHEW, OR SPLIT, Disp: 30 tablet, Rfl: 11 fluocinonide (Lidex) 0.05 % external solution, APPLY TO THE AFFECTED AREA(S) topically EVERY OTHER DAY FOR 30 DAYS, Disp: , Rfl: ibuprofen 800 MG tablet, , Disp: , Rfl: levothyroxine (Synthroid, Levoxyl) 137 MCG tablet, TAKE 1 TABLET BY MOUTH IN THE MORNING BEFORE a meal, Disp: 30 tablet, Rfl: 2 levothyroxine (Synthroid, Levoxyl) 25 MCG tablet, TAKE 1 TABLET BY MOUTH IN THE MORNING BEFORE MEALS WITH the current dosage, Disp: 30 tablet, Rfl: 3 meloxicam (Mobic) 15 MG tablet, Take 1 tablet (15 mg) by mouth Daily With food., Disp: 30 tablet, Rfl: 2 metoprolol succinate XL (Toprol-XL) 100 MG 24 hr tablet, TAKE 1 TABLET BY MOUTH IN THE MORNING, Disp: 30 tablet, Rfl: 11 omeprazole (PriLOSEC) [address] capsule, Take 40 mg by mouth in the morning. Take before meals., Disp: , Rfl: venlafaxine XR (Effexor XR) 37.5 MG 24 hr capsule, , Disp: , Rfl: Social History: Social History Socioeconomic History Marital status: Spouse name: Not on file Number of children: Not on file Years of education: Not on file Highest education level: Not on file Occupational History Not on file Tobacco Use Smoking status: Former Smokeless tobacco: Never Tobacco comments: Vape Vaping Use Vaping status: Never Used Substance and Sexual Activity Alcohol use: Not Currently Comment: Socially/rare Drug use: Never Sexual activity: Yes Partners: Male control/protection: Female Sterilization Other Topics Concern Not on file Social History Narrative Not on file Social Drivers of Health Financial Resource Strain: Not on file Food Insecurity: No Food Insecurity (09/22/2023) Received from [facility], [facility] Hunger Screening Within the past 12 months we worried whether our food would run out before we got money to buy more.: Never True Within the past 12 months the food we bought just didn't last and we didn't have money to get more.: Never True Transportation Needs: Not on file Physical Activity: Not on file Stress: Not on file Social Connections: Not on file Intimate Partner Violence: Not on file Housing Stability: Not on file ROS: General: denies fever, chills, fatigue, malaise GI: denies abdominal pain or ulcerations with anti-inflammatory medication OBJECTIVE LE EXAM: DERM: Positive hair growth to b/l feet with good skin turgor noted. Negative openings in skin VASC: Palpable pedal pulsed b/l with warm to cool tibia to toes b/l NEURO: Gross sensation intact digits 1-10 and b/l feet ORTHO: +5/5 DF/PF/IN/EV right, +5/5 DF/PF/IN/EV left. 20 degrees inversion and 10 degrees eversion STJ b/l. Ankle ROM less than 10 degrees b/l. Minimal pain on palpation to ligaments and right sinus tarsi and notable pain to the medial and well as lateral gutter of the right tibiotalar joint synovium Ultrasound DIAGNOSTIC US REPORT: Verbal order for ultrasound today The right ankle was scanned today with a 12 MHz linear probe in the transverse/sagital planes. Images were obtained. FINDINGS: US examination in the longitudinal and transverse images of the ankle joint demonstrates a small amount of hypo-echoic density and signal of the ankle joint indicative of synovitis and capsulitis. IMPRESSION: US findings of capsulitis/synovitis of ankle. ASSESSMENT 1. Other specified disorders of synovium, right ankle and foot 2. Sinus tarsitis of right foot PLAN Pt was given steroid injection to the right ankle joint capsule and synovium under US guidance withvisualization of injected fluid into area of concern per imaging. Injection consisted of a 2:1 mixture of xylocaine 2%plain and kenalog 10 for a total of 3ccs. Informed pt of risks and benefits of procedure including infection,damage or rupture to soft tissuestructures and steroid flare. Pt understood and consented. This is the patients 1st injection Reviewed ultrasound today with patient Pt presents today for casting of a removable foot inserts/orthotics today that was accomplished with scanning of feet and sent to orthotics lab.(L3020 right and L3020 left foot). Pt to have signed ABN for device if needed. It was explained to the patient of a break in period for the devices. The patient is ambulatory maybenefit functionally for this device. It may be used for the following conditions as noted per EMR.Patient metatarsal pads added Patient to continue with oral anti - inflammatories as needed for pain and recommended OTC medications such as tylenol or Ibuprofen Ran Osullivan DPM documented in this encounterMissouri Baptist Medical [id number] Telephone encounter Note* Telephone Encounter - Kristi Watts RN - 09/12/2024 12:54 PM EST [facility] COORDINATION TELEPHONE ENCOUNTER I spoke to pt about what is needed (EKG and LABS) to submit to insurance.Pt is working on that today. [facility]02-[facility] Miscellaneous Notes* Telephone Encounter - Kristi Watts RN - 09/12/2024 12:54 PM EST [facility] COORDINATION TELEPHONE ENCOUNTER I spoke to pt about what is needed (EKG and LABS) to submit to insurance.Pt is working on that today. documented in this encounterProv[facility]02-[facility] History of Present illness Narrative* Ran Osullivan DPM - 09/03/2024 10:00 AM EST Patient: Tiffani Allison : 1985 PCP: Elisabeth Beckman NP SUBJECTIVE This is a 38 y.o. female that presents today for a chief complaint of lateral right ankle pain since ankle sprain in December of 2023. Patient states she was seen by Orthopedics with treatments of anti-inflammatories with negative improvement and continues to have pain particularly prolonged periods ofstanding to the lateral aspect of her right ankle. She related previous inversion-type ankle sprainin 2023 and has tried anti-inflammatories with minimal improvement rates pain up to a 7/10 particularly prolonged standing Allergies: Allergies Allergen Reactions Penicillins Anaphylaxis and Unknown Other Reaction(s): throat swelling and hives Penicillin G Unknown Topiramate Other Reaction(s): seizures Past Medical History: Past Medical History: Diagnosis Date Arthritis Cervical disc disorder COVID-19 2019 Depression with anxiety Fracture of ankle GERD (gastroesophageal reflux disease) Hiatal hernia HTN (hypertension) ([facility]) Hypothyroidism (acquired) ([facility]) Iron deficiency anemia Kidney stones Lumbosacral disc disease Migraines ([facility]) Polycystic ovary syndrome 2009 Seizure ([facility]) 2019 hx of hospitalization Tear of meniscus of knee Thoracic disc disease Medications: Current Outpatient Medications: acetaminophen (Tylenol) 325 MG capsule, Take 650 mg by mouth every 6 (six) hours if needed for mildpain, Disp: , Rfl: amLODIPine (Norvasc) 10 MG tablet, TAKE 1 TABLET BY MOUTH IN THE MORNING, Disp: 30 tablet, Rfl: 11 aspirin 81 MG EC tablet, Take 81 mg by mouth in the morning. (Patient not taking: Reported on 08/17/2024), Disp: , Rfl: buPROPion XL (Wellbutrin XL) 150 MG 24 hr tablet, TAKE 1 TABLET BY MOUTH IN THE MORNING DO NOT CRUSH, CHEW, OR SPLIT, Disp: 30 tablet, Rfl: 11 fluocinonide (Lidex) 0.05 % external solution, APPLY TO THE AFFECTED AREA(S) topically EVERY OTHER DAY FOR 30 DAYS, Disp: , Rfl: ibuprofen 800 MG tablet, , Disp: , Rfl: levothyroxine (Synthroid, Levoxyl) 137 MCG tablet, TAKE 1 TABLET BY MOUTH IN THE MORNING BEFORE a meal, Disp: 30 tablet, Rfl: 2 levothyroxine (Synthroid, Levoxyl) 25 MCG tablet, TAKE 1 TABLET BY MOUTH IN THE MORNING BEFORE MEALS WITH the current dosage, Disp: 30 tablet, Rfl: 3 meloxicam (Mobic) 15 MG tablet, Take 1 tablet (15 mg) by mouth Daily With food., Disp: 30 tablet, Rfl: 2 metoprolol succinate XL (Toprol-XL) 100 MG 24 hr tablet, Take 1 tablet (100 mg) by mouth in the morning., Disp: 30 tablet, Rfl: 2 omeprazole (PriLOSEC) [address] capsule, Take 40 mg by mouth in the morning. Take before meals., Disp: , Rfl: venlafaxine XR (Effexor XR) 37.5 MG 24 hr capsule, , Disp: , Rfl: Social History: Social History Socioeconomic History Marital status: Spouse name: Not on file Number of children: Not on file Years of education: Not on file Highest education level: Not on file Occupational History Not on file Tobacco Use Smoking status: Former Smokeless tobacco: Never Tobacco comments: Vape Vaping Use Vaping status: Never Used Substance and Sexual Activity Alcohol use: Not Currently Comment: Socially/rare Drug use: Never Sexual activity: Yes Partners: Male control/protection: Female Sterilization Other Topics Concern Not on file Social History Narrative Not on file Social Drivers of Health Financial Resource Strain: Not on file Food Insecurity: No Food Insecurity (09/22/2023) Received from [employer], [employer] Hunger Screening Within the past 12 months we worried whether our food would run out before we got money to buy more.: Never True Within the past 12 months the food we bought just didn't last and we didn't have money to get more.: Never True Transportation Needs: Not on file Physical Activity: Not on file Stress: Not on file Social Connections: Not on file Intimate Partner Violence: Not on file Housing Stability: Not on file ROS: General: denies fever, chills, fatigue, malaise Gastrointestinal: denies abdominal pain, ulcers, or changes in appetite or bowel habits Musculoskeletal: denies arthritis, denies loss of strength, pain to hip, knees, back. Positive history of psoriatic arthritis Cardiovascular: denies CP, palpitations, irregular rhythms OBJECTIVE LE EXAM: DERM: Positive hair growth to b/l feet with good skin turgor noted. Negative openings in skin VASC: Palpable pedal pulsed b/l with warm to cool tibia to toes b/l NEURO: Gross sensation intact digits 1-10 and b/l feet ORTHO: +5/5 DF/PF/IN/EV right, +5/5 DF/PF/IN/EV left. 20 degrees inversion and 10 degrees eversion STJ b/l. Ankle ROM less than 10 degrees b/l. Positive pain on palpation to ligaments and right sinus tarsi as well as lateral gutter of the right tibiotalar joint synovium MRI 06/22/24 Narrative & Impression EXAM/TECHNIQUE: MR ANKLE RIGHT WO IV CONTRAST HISTORY: History of fall in March. Lateral and medial pain with instability. COMPARISON: Radiographs 06/11/2024. RESULT: Cartilage: Tibiotalar joint cartilage and subtalar joint cartilage appears to be preserved. Midfootarticular cartilage appears to be preserved. Ligaments: Distal tibiofibular ligaments appear grossly intact. Thickening and increased signal involving the anterior talofibular ligament, with some well- corticated fragments near the insertion, likely sequela of [...] involving the distal fibula, likely reactive versus bonecontusion. Plantar Aponeurosis: Plantar aponeurosis in within normal [...] the distal fibula. 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 US: DIAGNOSTIC US REPORT: Verbal order for ultrasound today The right sinus tarsi was scanned today with a 12 MHz linear probe in the transverse/sagital planes. Images were obtained. FINDINGS: US examination in the longitudinal and transverse images of the STJ demonstrates a small amount of hypo-echoic density and signal around the sinus tarsi. IMPRESSION: US findings of capsulitis within the right sinus tarsi of STJ. ASSESSMENT 1. Other specified disorders of synovium, right ankle and foot 2. Sinus tarsitis of right foot PLAN Pre-certify for orthotics today Patient to continue with oral anti - inflammatories as needed for pain and recommended OTC medications such as tylenol or Ibuprofen Pt was given steroid injection to the right talocalcaneal joint capsule and synovium under US guidance with visualization of injected fluid into area of concern per imaging. Injection consisted of a 2:1 mixture of xylocaine 2%plain and kenalog 10 for a total of 3ccs. Informed pt of risks and benefits of procedure including infection,damage or rupture to soft tissuestructures and steroid flare. Pt understood and consented. This is the patients 1st injection Ran Osullivan DPM documented in this encounterMissouri Baptist Medical CenterOwaemumgvw96-25-2157 NoteHNO ID: [id number] Author: SHARON HELM, PhD Service: ? Author Type: Psychologist Type: Progress Notes Filed: 08/24/2024 12:09 Note Text: [facility] Psychology- documentation Fax message received from NI Kim, pt's SEAT TRIMMER at [facility]. Pt diagnosed with Anxiety Disorder, unspecified (F41.9). Prescribed bupropion hcl xl 300mg; recently added effexor xr 37.5mg Provider denied any knowledge of psychiatric hospitalizations, suicide attempts, or chemical dependency treatment in the past year. Pt noted to be adherent with treatment and stable. At the current time, there do not appear to be any psychiatric contraindications for weight loss surgery. Provider is willing to follow the patient post-operatively. Plan: *Documentation from current psychiatric medication provider--MET *If planning for a gastric bypass, complete an additional nicotine screen three months after initial negative screen. Please add a reminder to your calendar to have this completed. *Additional requirements may arise in course of treatment. Insurance letter not completed at this time. Patient needs to complete additional preparation as outlined above. Sharon Helm, Ph.D., Clinical PsychologistCleveland Clinic [facility]01-17-2025 History of Present illness Narrative* REMY Feliz - 08/17/2024 10:00 AM EST Images from the original note were not [...] soreness through the posterior tibial tendon and nearthe insertion in the arch region. No calcaneal pain she has no soreness to the plantar aspect of the foot however she is tender in the Achilles region. There is no defect or dysfunction she does havesome tightness back there. She also has intermittent [...] to your cam boot. documented in this encounterMissouri Baptist Medical CenterMtifwhccqj61-65-2657 Instructions* Patient Instructions* REMY Feliz - 08/17/2024 10:00 AM EST [...] to your cam boot. documented in this encounterMissouri Baptist Medical [id number] NoteHNO ID: [id number] Author: ?, ?, ? Service: ? Author Type: ? Type: Progress Notes Filed: 08/03/2024 14:49 Note Text: Sleep Study Check-In Documentation Date: August 03, 2024 Name: Tiffani Allison Comments: HST was returned in working order with all sleep questionnaires [facility]12-26-2024 NoteHNO ID: [id number] Author: ?, ?, ? Service: ? Author Type: ? Type: Progress Notes Filed: 07/27/2024 15:50 Note Text: Nomad # [id number] , date shipped out 07-27-24 Fed Ex only Tracking mailout: [id number] Tracking return: [id number]12-10-20[facility] History of Present illness Narrative* REMY Feliz - 07/10/2024 10:00 AM EST Images from the original note were not [...] subtalar joint cartilage appears to be preserved. Midfootarticular cartilage appears to be preserved. Ligaments: Distal tibiofibular ligaments appear grossly intact. Thickening and increased signal involving the anterior talofibular ligament, with some well- corticated fragments near the insertion, likely sequela of [...] involving the distal fibula, likely reactive versus bonecontusion. Plantar Aponeurosis: Plantar aponeurosis in within normal [...] with good arch support. documented in this [facility]12-10-2024 Instructions* Patient Instructions* REMY Feliz - 07/10/2024 10:00 AM EST [...] with good arch support. documented in this [facility]12-10-2024 NoteHNO ID: [id number] Author: ?, ?, ? Service: ? Author Type: ? Type: Progress Notes Filed: 07/10/2024 09:42 Note Text: Sleep Study Check-In Documentation Date: July 10, 2024 Name: Tiffani Allison Comments: HST was returned in work order. Study did not occur. The device is blank. Sent MYC Message. Monty MendezCleveland Clinic [facility]12-10-2024 History of Present illness Narrative* Monty Mendez - 07/10/2024 9:41 AM EST Sleep Study Check-In Documentation Date: July 10, 2024 Name: Tiffani Allison Comments: HST was returned in work order. Study did not occur. The device is blank. Sent MYC Message. Monty Mendez * Mary Ann Grant - 07/05/2024 10:45 AM EST Pt stated the device didn't work. Informed patient to send device back and we will call reschedule. * Margo Laio - 07/02/2024 1:59 PM EST Nomad # [id number] , +GPS Date shipped out: 07/02/24 SENT FEDEX DELIVERY - FEDEX RETURN Tracking mailout: [id number] Tracking return: [id number] * Dany Mancini III, PhD - 07/02/2024 9:44 AM EST July 02, 2024 Standing PSG Orders signed in the last 90 days None Future PSG Orders signed in the last 90 days Ordered Auth. provider HOME SLEEP APNEA TEST (HSAT) [[id number]] 05/24/24 Renetta Ruano MD Assoc. diagnoses: Morbid [...] No CONSULT TO SLEEP MEDICINE - ADULT [[id number]] 05/24/24 Renetta Ruano MD Assoc. diagnoses: Morbid obesity due to excess calories (HCC) [E66.01], S/P bariatric surgery [Z98.84], Preoperative testing [Z01.818], Snoring [R06.83], Other fatigue [R53.83], Morbid obesity with BMI of 40.0-44.9, adult (HCC) [E66.01, Z68.41] Q: Does consulting provider have [...] and Related Procedures, or if the sleep studyis indicated for other reasons. Indications for study: EARNEST suspected with comorbid medical or sleep disorders: Morbid obesity (BMI>40 kg/m2) Sleep study to be performed: Home Sleep Apnea Test (HSAT) Special instructions: None-follow laboratory protocol This patient may benefit from a sleep consultation. Nikole Garrett Sleep Medicine Staff Note: I have read the above protocol, edited as needed, and agree to the plan. Dany Mancini III, PhD 1:38 PM, 07/02/2024 * Margo Liao - 06/29/2024 8:54 PM EST June 29, 2024 An order has been received for Home Sleep Apnea Test (HSAT) from Renetta Goldberg MD , a B. [facility] Staff. Visit prep complete. Comments :No The sleep study is scheduled for 07-03-24. Insurance: Payor: / Plan: [facility] / Product Type: Indemnity / Payer/Plan Subscr Sex Relation Sub. Ins. ID Effective Group Num 1. - TR* ESTEFANYTIFFANI 1985 Female Self [id number] [birth year] [address] Margo Liao documented in this encounterProvidence Hospital12-05-2024 NoteHNO ID: [id number] Author: ?, ?, ? Service: ? Author Type: ? Type: Progress Notes Filed: 07/10/2024 09:42 Note Text: Pt stated the device didn't work. Informed patient to send device back and we will call reschedule.[facility]12-02-2024 NoteHNO ID: [id number] Author: ?, ?, ? Service: ? Author Type: ? Type: Progress Notes Filed: 07/10/2024 09:42 Note Text: Nomad # [id number] , +GPS Date shipped out: 07/02/24 SENT FEDEX DELIVERY - FEDEX RETURN Tracking mailout: [id number] Tracking return: [id number]12-02-2024 NoteHNO ID: [id number] Author: DANY MANCINI III, PhD Service: ? Author Type: Physician Type: Progress Notes Filed: 07/10/2024 09:42 Note Text: July 02, 2024 Standing PSG Orders signed in the last 90 days None Future PSG Orders signed in the last 90 days Ordered Auth. provider HOME SLEEP APNEA TEST (HSAT) [[id number]] 05/24/24 Renetta Ruano MD Assoc. diagnoses: Morbid [...] No CONSULT TO SLEEP MEDICINE - ADULT [[id number]] 05/24/24 Renetta Ruano MD Assoc. diagnoses: Morbid obesity due to excess calories (HCC) [E66.01], S/P bariatric surgery [Z98.84], Preoperative testing [Z01.818], Snoring [R06.83], Other fatigue [R53.83], Morbid obesity with BMI of 40.0-44.9, adult (HCC) [E66.01, Z68.41] Q: Does consulting provider have [...] benefit from a sleep consultation. Nikole Garrett Sleep Medicine Staff Note: I have read the above protocol, edited as needed, and agree to the plan. Dany Mancini III, PhD 1:38 PM, 07/02/2024[facility]11-29-2024 NoteHNO ID: [id number] Author: ?, ?, ? Service: ? Author Type: ? Type: Progress Notes Filed: 07/10/2024 09:42 Note Text: June 29, 2024 An order has been received for Home Sleep Apnea Test (HSAT) from Renetta Goldberg MD , a B. [facility] Staff. Visit prep complete. Comments :No The sleep study is scheduled for 07-03-24. Insurance: Payor: [employer] / Plan: [employer] / Product Type: Indemnity / Payer/Plan Subscr Sex Relation Sub. Ins. ID Effective Group Num 1. - TR* TIFFANI ALLISON 1985 Female Self [id number] [birth year] [address] [facility]-21-2024 NoteHNO ID: [id number] Author: SHARON HELM, PhD Service: ? Author Type: Psychologist Type: Progress Notes Filed: 06/21/2024 14:47 Note Text: [facility] METABOLIC/BARIATRIC SURGERY (MBS) BEHAVIORAL HEALTH EVALUATION Patient name: Tiffani Allison Date of service: June 21, 2024 Time of service: 1:00pm - 2:00pm Cost center: [facility] CPT code(s): 55362 Psychiatric diagnostic evaluation - 28163 Brief Emotional/Behavioral Assessment with scoring/documentation (2 units) [...] a copy of the consent form via Arden Reed. Prior to initiating the virtual visit, I communicated my name and active licensure. The patient's identity (name, ) and physical location were verified. Patient was encouraged to move to a private space free of distractions. Either the patient or their legal pest control service representative has been informed of the [...] contact patient at their preferred phone number ([phone]) or via email ([email or web address]). Plan in case of emergency: Go to emergency room or call 911 Closest emergency room: [facility] Extended Emergency Contact Information Primary Emergency Contact: Jesus Allison Address: [address] [place] [address] [place] OF [facility] Mobile Relation: Spouse Platform: [employer] Address of patient during visit: home ([address] [place] [address]) Collateral parties present: none IDENTIFYING INFORMATION Ms. Tiffani Allison is a 38 year old, female who was referred by Dr. Grissom. She is seeking revision (sleeve to bypass) for Class III obesity and hiatal hernia. Initial gastric sleeve surgery in July 2017 (in [place]). MOTIVATION FOR SURGERY / UNDERSTANDING OF PROCEDURE [...] MEALS melatonin 1 m (more content not included)...[facility]11-20-2024 History of Present illness Narrative* REMY Feliz - 06/20/2024 9:45 AM EST GENERAL HISTORY AND PHYSICAL: NAME: Tiffani Allison [...] she did go get imaging done at [facility] and has brought thoseimages with her. She does take a baby aspirin a day she states that she does not have history of DVT but is concerned with the right lower calf swelling and pain with mobility. She denies fever chills shortness of breath or chest pain. She is a xkyu-vo-exwo mom PAST MEDICAL HISTORY: Past Medical History: [...] TABLET BY MOUTH IN THE MORNING BEFORE MEALSWITH the current dosage metoprolol succinate XL (TOPROL-XL) [...] anterior drawer testing. Patient has no associated tad ny tenderness from base of the metatarsals to [...] a better anti-inflammatory response due to the changein chemical structures. Do not take more than 1 type of NSAID at a time beyond the recommended dosing and always take with food. REMY Feliz documented in this [facility]11-20-2024 Instructions* Patient Instructions* REMY Feliz - 06/20/2024 9:45 AM EST [...] a better anti-inflammatory response due to the changein chemical structures. Do not take more than 1 type of NSAID at a time beyond the recommended dosing and always take with food. documented in this [facility]11-19-2024 Evaluation note* Diagnosis Onset Date Resolution Status Admit Date Anxiety acute June 19, 2024 10:02am Depression acute June 19, 2024 10:02am Anxiety acute August 15, 2024 10:51am Depression acute August 15, 2024 10:51am IFG (impaired fasting glucose) acute August 15 10:51am Obesity, Class III, BMI 40-49.9 (morbid obesity) acute August 15, 2024 10:51am Anxiety acute September 14, 2024 11:18am Depression acute September 14, 2024 11:18am IFG (impaired fasting glucose) acute September 14, 11:18am [facility] Work Phone: [phone]) 257-918511-15-2024 NoteHNO ID: [id number] Author: TETO, LELO, RT(R) Service: ? Author Type: Technologist Type: [...] PATIENT PRESENTS WITH AN IMPLANTABLE OR ATTACHED JACKHAMMER SPLITTER OPERATOR: No RADIOLOGY DEPARTMENT: General X-ray: Exam(s) Completed: Chest X-Ray PERIPHERAL IV DATA: Not applicable SIGNED BY: RT Vanna(R) June 15, 2024 12:23 [facility]11-14-2024 NoteHNO ID: [id number] Author: SHARON HELM, PhD Service: ? Author Type: Psychologist Type: Progress Notes Filed: 06/14/2024 16:11 Note Text: [facility] Bariatric Behavioral Services Progress Note June 14, 2024 Patient did not check in for scheduled appointment. This visit will be marked as a no-show. Sharon Helm, Ph.D. Clinical PsychologistCleveland Clinic [facility]11-07-2024 Instructions* Patient Instructions* Lala Zuniga, VALENTINO - 06/07/2024 1:53 PM EST Nutrition Intervention 06/07/2024: Modify type and amount of foods consumed for meals and snacks 1. Read Nutritional Guidelines Section of Your Guide to Surgery by next session [email or web address]/[email or web address]?la=e n 2. Do not skip meals. 3. Use protein shake 1x per day to replace any skipped meals or for breakfast. Aim for shakes ~150-200 calories, ~15-20 grams of protein, <5 grams of total sugar. Choose from these options that are approved for the pre-op liquid diet: Slim Fast High Protein (20 g protein), Atkins (15 g protein),Boost Glucose Control (16 g protein), Owyn (20 g protein), [place] Breakfast Essentials Light Start mixed with fat [...] Continue taking daily bariatric vitamins/minerals and include 8797-3218 mg calcium citrate daily(separate 2 hours from iron, and take each 500-600 mg dose 4 hours apart) Here are a few options to consider: - Bariatric Fusion: 4 Complete Multivitamin chewables per day OR 1 Multivitamin capsule and 6800-6722 mg calcium citrate per day OR 2 Multivitamin soft chews per day + 3 calcium citrate soft chews + 1 iron soft chew per day www.bariatricfusion.com - Bariatric Choice: 4 All-in-One Bariatric Multivitamin chewables per day OR 1 Once Daily BariatricMultivitamin capsule and 7655-3320 mg calcium citrate per day www.bariatricchoice.com - Bariatric Pal: 4 All-in-One Multivitamin chewables per day OR 1 Multivitamin One (chewable or capsule) and 7940-7815 mg calcium citrate per day www.[email or web address].[email or web address]/collections/bariatric-vitamins - Bariatric Advantage: 1 Ultra Solo multivitamin w/ iron (chewable or capsule) OR 2 chewable Advanced Multi EA w/ iron and 0050-9910 mg calcium citrate per day OR 2 Multi Chewy Bites and 0012-6691 mgcalcium citrate and 45-60 mg iron per day www.bariatricadvantage.com - Procare Health: 1 Bariatric Multivitamin w/ iron (capsule or chewable) and 7987-4567 mg calcium citrate per day www.[email or web address].Equinext - Celebrate: 2 Multi-Complete (chewable or capsule) OR 1 CelebrateOne Multivitamin capsule and 5500-9812 mg calcium citrate per day OR 2 Multivitamin soft chews + 3 calcium citrate soft chews + 1 iron soft chew per day https://[email or web address].[email or web address] - Barilife: 1 Just One Bariatric Multivitamin w/ iron (chewable or capsule) and 0260-7918 mg calcium citrate per day www.barilife.Equinext - Barimelts: 2 Multivitamin w/ iron tablets and 1276-0519 mg calcium citrate per day www.[email or web address].Equinext Pre-op goal weight: 292 pounds Protein needs: 95 gm per day Navigator: [email or web address] Please follow the below link to join our Navigation Welcome and Next Steps Meeting. Meetings are held weekly on Tuesdays from 12:00-1:00 pm. [email or web address] Please call [phone], option 5. Leave a message for the navigation team when you are finishedwith all clearances (nutrition, psychology, medical, surgeon) PRE/POST-OP Instructions: 1. Start the full liquid diet (2) weeks prior to surgery using 4-5 protein shakes per day, continuea minimum of 64 oz water per day during this time. No solid food. May have sugar free popsicle and sugar free jello. Choose from these options only: 4 bottles of Slim Fast High Protein shakes per day 5 cartons of Atkins 15 g shakes per day 4 bottles of Boost Glucose Control shakes per day 5 packets of [place] Breakfast Essentials Light Start mixed with fat free milk 4 bottles/cartons of Owyn 20 g protein shakes per day 2. During the 2 weeks before and after surgery, include a daily Super B-Complex vitamin with 75-100mg Thiamine 3. Advance diet per guidebook post surgery (refer to page 49) 4. Resume taking daily vitamins/minerals after starting soft protein foods ~3 weeks after surgery. Nutrition Monitoring & Evaluation: 1-2 lbs wt loss/week Need for Follow up: 2 weeks pre op documented [facility] this encounterProv[facility]11-07-2024 History of Present illness Narrative* Lala Zuniga RD - 06/07/2024 1:15 PM EST [facility] Nutrition Therapy: Virtual Consult - Initial Assessment I have communicated my name and active licensure. The patient s identity and physical location wereverified at the time of this visit. Either the patient or their legal pest control service representative has been informed of the risks and benefits of -- and alternatives to -- treatment through a remote evaluation andconsents to proceed with the evaluation remotely. Nutrition Diagnosis: Altered Gastrointestinal Tract Function, related to, S/P bariatric surgery, asevidenced by surgical history and Overweight/obesity, related to, food/nutrition - related knowledge deficit, as evidenced by BMI above normative standard for age and gender. RECOMMENDED MALNUTRITION DIAGNOSIS: NO MALNUTRITION IDENTIFIED NUTRITION CARE PLAN Nutrition Intervention 06/07/2024: Modify type and amount of foods consumed for meals and snacks 1. Read Nutritional Guidelines Section of Your Guide to Surgery by next session [email or web address]/-/scassets/files/[email or web address]/[email or web address]/[email or web address]?la=e n 2. Do not skip meals. 3. Use protein shake 1x per day to replace any skipped meals or for breakfast. Aim for shakes ~150-200 calories, ~15-20 grams of protein, <5 grams of total sugar. Choose from these options that are approved for the pre-op liquid diet: Slim Fast High Protein (20 g protein), Atkins (15 g protein),Boost Glucose Control (16 g protein), Owyn (20 g protein), [place] Breakfast Essentials Light Start mixed with fat [...] Continue taking daily bariatric vitamins/minerals and include 1725-3590 mg calcium citrate daily(separate 2 hours from iron, and take each 500-600 mg dose 4 hours apart) Here are a few options to consider: - Bariatric Fusion: 4 Complete Multivitamin chewables per day OR 1 Multivitamin capsule and 3254-8929 mg calcium citrate per day OR 2 Multivitamin soft chews per day + 3 calcium citrate soft chews + 1 iron soft chew per day www.bariatricfusion.com - Bariatric Choice: 4 All-in-One Bariatric Multivitamin chewables per day OR 1 Once Daily BariatricMultivitamin capsule and 3957-4318 mg calcium citrate per day www.bariatricchoice.com - Bariatric Pal: 4 All-in-One Multivitamin chewables per day OR 1 Multivitamin One (chewable or capsule) and 8650-6458 mg calcium citrate per day www.ConcernTrak.bariatricpal.com/collections/bariatric-vitamins - Bariatric Advantage: 1 Ultra Solo multivitamin w/ iron (chewable or capsule) OR 2 chewable Advanced Multi EA w/ iron and 3852-9145 mg calcium citrate per day OR 2 Multi Chewy Bites and 1112-2644 mgcalcium citrate and 45-60 mg iron per day www.bariatricadChina Intelligent Transport System Groupage.Equinext - [facility] preble Health: 1 Bariatric Multivitamin w/ iron (capsule or chewable) and 8034-5656 mg calcium citrate per day www.Winking Entertainment - Celebrate: 2 Multi-Complete (chewable or capsule) OR 1 CelebrateOne Multivitamin capsule and 4552-3586 mg calcium citrate per day OR 2 Multivitamin soft chews + 3 calcium citrate soft chews + 1 iron soft chew per day https://celebratevitamins.Equinext - Barilife: 1 Just One Bariatric Multivitamin w/ iron (chewable or capsule) and 3742-9290 mg calcium citrate per day www.Refulgent Software - Barimelts: 2 Multivitamin w/ iron tablets and 1988-5205 mg calcium citrate per day www.barimelts.Equinext Pre-op goal weight: 292 pounds Protein needs: 95 gm per day Navigator: Clover Terrazas, [email or web address] Please follow the below link to join our Navigation Welcome and Next Steps Meeting. Meetings are held weekly on Tuesdays from 12:00-1:00 pm. [email or web address] Please call [phone], option 5. Leave a message for the navigation team when you are finishedwith all clearances (nutrition, psychology, medical, surgeon) PRE/POST-OP Instructions: 1. Start the full liquid diet (2) weeks prior to surgery using 4-5 protein shakes per day, continuea minimum of 64 oz water per day during this time. No solid food. May have sugar free popsicle and sugar free jello. Choose from these options only: 4 bottles of Slim Fast High Protein shakes per day 5 cartons of Atkins 15 g shakes per day 4 bottles of Boost Glucose Control shakes per day 5 packets of [place] Breakfast Essentials Light Start mixed with fat free milk 4 bottles/cartons of Owyn 20 g protein shakes per day 2. During the 2 weeks before and after surgery, include a daily Super B-Complex vitamin with 75-100mg Thiamine 3. Advance diet per guidebook post [...] III obesity? Max weight: 364 lbs (year 2014, pre surgery); Min weight: 184 lbs (year 2018, after surgery Jose)? 10-yr weight history: post weight retention (2 pregnancies), gradual gain since? Previous weight loss attempts: Commercial programs (ex: JACEY, Rocio Lagunas, CHANTE), Self-directed diets, Physician-assisted diets, and bariatric surgery ? Diagnosed Eating Disorders: Unknown Behavioral Eating Tendencies: None Patient s perception on causes of weight gain: post weight retention, depression,weight promoting medications?, genetics, consumption of unhealthy foods [...] exercise - limited by large hernia. ? [place] body weight: 174 lbs Excess body weight: [...] 2024 TIME: 4:01 PM documented in this encounterProv[facility]11-[facility]-2024 NoteHNO ID: [id number] Author: LALA ZUNIGA RD Service: ? Author Type: Registered Dietitian Type: Progress Notes Filed: 06/07/2024 13:53 Note Text: [facility] Nutrition Therapy: Virtual Consult - Initial Assessment I have communicated my name and active licensure. The patient?s identity and physical location were verified at the time of this visit. Either the patient or their legal pest control service representative has been informed of the [...] of Your Guide to Surgery by next [email or web address]?la=en 2. Do not skip meals. 3. [...] (16 g protein), Owyn (20 g protein), [place] Breakfast Essentials Light Start mixed with fat [...] Continue taking daily bariatric vitamins/minerals and include 3005-1250 mg calcium citrate daily (separate 2 hours from iron, and take each 500-600 mg dose 4 hours apart) Here are a few options to consider: - Bariatric Fusion: 4 Complete Multivitamin chewables per day OR 1 Multivitamin capsule and 4059-0920 mg calcium citrate per day OR 2 Multivitamin soft chews per day + 3 calcium citrate soft chews + 1 iron soft chew per day www.bariatricfusion.com - Bariatric Choice: 4 All-in-One Bariatric Multivitamin chewables per day OR 1 Once Daily Bariatric Multivitamin capsule and 4755-6325 mg calcium citrate per day www.bariatricchoice.com - Bariatric Pal: 4 All-in-One Multivitamin chewables per day OR 1 Multivitamin One (chewable or capsule) and 2572-0457 mg calcium citrate per day www.ConcernTrak.[email or web address].com/collections/bariatric-vitamins - Bariatric Advantage: 1 Ultra Solo multivitamin w/ iron (chewable or capsule) OR 2 chewable Advanced Multi EA w/ iron and 8777-6521 mg calcium citrate per day OR 2 Multi Chewy Bites and 4812-4129 mg calcium citrate and 45-60 mg iron per day www.bariatricadvantage.com - Procare Health: 1 Bariatric Multivitamin w/ iron (capsule or chewable) and 0449-7011 mg calcium citrate per day www.iloho.Equinext - Celebrate: 2 Multi-Complete (chewable or capsule) OR 1 CelebrateOne Multivitamin capsule and 6049-8949 mg calcium citrate per day OR 2 Multivitamin soft chews + 3 calcium citrate soft chews + 1 iron soft chew per day https://celebratevitamins.Equinext - Barilife: 1 Just One Bariatric Multivitamin w/ iron (chewable or capsule) and 9638-0394 mg calcium citrate per day www.bariAdzuna.com - Barimelts: 2 Multivitamin w/ iron tablets and 5626-5734 mg calcium citrate per day www.barimelts.com Pre-op goal weight: 292 pounds Protein needs: 95 gm per day Navigator: [email or web address] Please follow the below link to join our Navigation Welcome and Next Steps Meeting. Meetings are held weekly on Tuesdays from 12:00-1:00 pm. [email or web address] Please call [phone], option 5. Leave a message for the navigation team when you are finished with all clearances (nutrition, psychology, medical, surgeon) PRE/POST-OP Instructions: 1. Start the full (more content not included)...[facility] 05-24-2024 Instructions* Patient Instructions* Renetta Ruano MD - 05/24/2024 2:27 PM EDT INSTRUCTIONS: 1) Please contact me (Dr. Ruano) if you have not heard about your test results within a few days after you had them done. Thank you: Contact information: [facility] [place] M61/Attention: Dr. Ruano [address] [place] [address] 2) Please check with your insurance company regarding cost/coverage of any tests ordered prior to having them completed. Jacquelin Allison , Thank you for completing your visit today and we welcome you to the surgical program. We are sure that you will still have some additional questions and encourage you to reach out to your care provider via VMTurbot OR your Patient Navigator. The contact information for each Navigator is listed below: Bipin Muñoz and Talia: [email or web address] Bipin Hatch Cha, and Hong: [email or web address] Bhupendra Santos, Wilmer, and Pedro: Clover Tyrell Pena, and Javier: Angelica Additionally, you may find many of the answers to your questions in our Guide To Surgery book. Thisbook includes step by step instructions for completing [...] free to ask for a hard copy. [email or web address]/[email or web address]/[email or web address]/bmiguideboo [email or web address]?la=en Once you complete all of the requirements (testing, consultations, diet, etc) from each provider, please call [phone] and select option #5 to initiate insurance approval. Also, if you have any questions along the way, we encourage you to join our weekly Navigation webinar every Tuesday from 12:00 pm - 1:00 pm. This webinar will give you an opportunity to chat with your patient navigator and learn about your specific program requirements. The link for this webinar isbelow: [email or web address] Please note scheduling information It is important to keep track of your scheduled appointments to ensure successful completion of oursurgical program. Any missed appointments can further delay your pre-surgical work-up. [facility] does offer an opt-in option for getting text message appointment reminders. Please follow the link below if you would like to opt into this service. [email or web address] As part of your surgical work up, SOME or ALL of the following tests may have been ordered. It willbe your responsibility to schedule and complete these tests in order to proceed with your bariatricsurgery. Please review the following instructions on how to get your testing scheduled. -EKG, Chest X-ray, Ultrasound- An appointment is needed for each of these tests. You may call your local [facility] to get an appointment. - Lab work- No appointment is needed for this, you may complete at any [facility].These are usually fasting labs, please be sure to fast (only water permitted) for 10-12 hours priorto the test. -Sleep Study- Please call [phone] or [phone] to get this appointment set up. -Sleep Medicine Consult- (Only needed if sleep study confirms sleep apnea) Please call [phone] [phone] to schedule an appointment. Any testing that is completed outside of [facility] will need faxed to [phone]. We look forward to working with you on this journey, Renetta Ruano MD documented in this encounterProvidence Hospital10-24-2024 History of Present illness Narrative* Renetta Ruano MD - 05/24/2024 2:15 PM EDT I have communicated my name and active licensure. The patient's identity and physical location wereverified at the time of this visit. Either the patient or their legal pest control service representative has been informed of the risks and benefits of -- and alternatives to -- treatment through a remote evaluation andconsents to proceed with the evaluation remotely. CC/HPI: 38 year old lady presents for medical evaluation prior to anticipated medical/surgical treatment ofobesity. 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 No new or out of the ordinary SOB/cough/other respiratory disease *no asthma/cough /sob GI: Denies any known h/o stomach, liver, pancreas, intestinal or colonic disease, Disorders or conditions. No odyno/dysphagia/abdominal pain/N/V/diarrhea/constipation/bloody stools or other GI issues *no liver/colon or intestine d/o : B)women: LMP?//rash/discharge/pelvic pain/menstrual problems C) either: No known h/o any chronic kidney; urinary or bladder disease, disorders or conditions; Denies any renal stones/dysuria/hematuria/urgency/polyuria/other issues/concerns *no h/o CKD or bladder issues; did have kidney stones last year Heme/onc: No known h/o any bleeding or clotting disorder, PE/DVT/anemia, or other blood disorder orcondition No h/o cancer/bleeding or clotting problems/unusual bruising [...] adequate functional capacity, and depending on the resultsof tests, consults (and prior records/test results if requested) -check presurgical labs, CXR, EKG; had recent CT abd 03/24; she just had an EKG done 2 weeks ago andhad labs done 2 weeks ago (had iron [...] which included preparing to see the patient, btbd-nz-ctet patient care, completing clinical documentation, obtaining and/or reviewing separately obtained history, counseling and educating the patient/family/caregiver, ordering medications, marleny ts, or procedures, and care coordination (not separately reported). documented in this encounterProvidence Hospital10-24-2024 NoteHNO ID: [id number] Author: RENETTA RUANO MD Service: ? Author Type: Physician Type: Progress Notes Filed: 09/21/2024 09:27 Note Text: I have communicated my name and active licensure. The patient's identity and physical location were verified at the time of this visit. 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 [facility]10-24-2024 Evaluation note* Diagnosis Onset Date Resolution Status Admit Date Anxiety acute May 24, 2024 9:57am Depression acute May 24, 2024 9:57am Right ankle injury acute Octobe r 2023 9:57am Right ankle pain acute May 24, 2024 9:57am Anxiety acute June 19, 2024 10:02am Depression acute June 19, 2024 10:02am Anxiety acute August 15, 2024 10:51am Depression acute August 15, 2024 10:51am Obesity, Class III, BMI 40-49.9 (morbid obesity) acute August 15, 2024 10:51am [facility] Work Phone: 1(673) 562-507010-17-2024 Telephone encounter Note* Telephone Encounter - Kristi Watts RN - 05/17/2024 10:14 AM EDT BMI SPECIALTY CARE COORDINATION TELEPHONE ENCOUNTER LVM with call back number to tell pt next steps about enrolling in our program. [facility]10-17-2024 Miscellaneous Notes* Telephone Encounter - Kristi Watts RN - 05/17/2024 10:14 AM EDT BMI SPECIALTY CARE COORDINATION TELEPHONE ENCOUNTER LVM with call back number to tell pt next steps about enrolling in our program. documented in this encounterProvidence Hospital10-14-2024 NoteHNO ID: [id number] Author: RAINE GRISSOM MD Service: ? Author [...] TAR, versus TAR only and consideration for bpcnxh-cf-gmbrfp conversion later down the line. She will consider her options and let us know. SIGNATURE: Raine Grissom MD PATIENT NAME: Tiffani Allison [facility] Bariatric [facility] DATE: May 14, 2024 CSN: [id number] TIME: 2:48 PM 10min spent with patient.[facility]10-14-2024 History of Present illness Narrative* Raine [...] TAR, versus TAR only and consideration for gvolsu-yl-ovmlos conversion later down the line. She will consider her options and let us know. SIGNATURE: Raine Grissom MD PATIENT NAME: Tiffani Allison [facility]oscopic [facility] Bariat[facility] DATE: May 14, 2024 CSN: [id number] TIME: 2:48 PM 10min spent with patient. documented in this encounterProvidence Hospital10-10-2024 Evaluation note* Diagnosis Onset Date Resolution Status Admit Date HTN (hypertension) acute 2023 10:43am Inappropriate sinus tachycardia acute May 10 10:43am Palpitations noneactive May 10:43am Anxiety acute May 24, 2024 9:57am Depression acute May 24, 2024 9:57am Right ankle injury acute r 2023 9:57am Right ankle pain acute May 24, 2024 9:57am Anxiety acute June 19, 2024 10:02am Depression acute June 19, 2024 10:02am [facility] Work Phone: 1(883) 940-341309-24-2024 NoteHNO ID: [id number] Author: RAINE GRISSOM MD Service: ? Author [...] include: Lap appy 2016 Low transverse 2009, 2023 Lap rocío 2005 Sleeve gastrectomy 2016 PMH: GERD HTN Hypothyroidism Iron deficiency anemia - requires iron transfusions Depression PSH: Lap appy 2017 Low transverse 2009, 2021, 2023 Tubal ligation 2023 Lap rocío 2005 Sleeve gastrectomy 2016 Heartburn/reflux: Daily symptoms only [...] 1 tablet by mouth (more content not included)...[facility]09-24-2024 History of Present illness Narrative* Raine [...] snoring/EARNEST Cardiovascular: + HTN, no CHF or CO. GI: +Abdominal pain in middle of lower [...] symptoms. Discussed other option of conversion to Becki-en-Y gastric bypass could help improve GERD symptoms [...] Level: 5 - High documented in this encounterProvidence Hospital09-18-2024 Telephone encounter Note * Telephone Encounter - Kristi Watts RN - 04/18/2024 10:17 AM EDT BMI SPECIALTY CARE COORDINATION TELEPHONE ENCOUNTER LVM with call back number for pt to make an appt with Dr. Grissom. [facility]09-18-2024 Miscellaneous Notes* Telephone Encounter - Kristi Watts RN - 04/18/2024 10:17 AM EDT BMI SPECIALTY CARE COORDINATION TELEPHONE ENCOUNTER LVM with call back number for pt to make an appt with Dr. Grissom. documented in this encounterProvidence Hospital09-16-2024 NoteHNO ID: [id number] Author: ROCIO JEFF MD Service: ? Author [...] Rocio Jeff MD April 16, 2024 4:02 [facility]09-16-2024 History of Present illness Narrative * Rocio [...] Ran Padron - 04/16/2024 3:50 PM EDT [facility]dominal [facility] - HISTORY AND PHYSICAL Chief Complaint: [...] repair Ran Padron MS4 documented in this encounterProvidence Hospital09-16-2024 NoteHNO ID: [id number] Author: ?, ?, ? Service: ? Author Type: ? Type: Progress Notes Filed: 04/23/2024 08:59 Note Text: [facility] - HISTORY AND PHYSICAL [...] noted Assessment: Tiffani Boston (more content not included)...[facility]09-16-2024 Nurse Note* Sudarshan Russell MA - 04/16/2024 2:36 PM EDT What is the reason for your visit today? Consult Who is your referring physician? Dr. Jeff Are you having poor oral intake? NO Have you had unintentional weight loss of 15 lbs/7 Kg in the last 3-6 months? NO Bowels: regular Wound: clean & dry Temperature: No Drains: No [facility]09-16-[facility] Nurse Note* Sudarshan Rsusell MA - 04/16/2024 2:36 PM EDT What is the reason for your visit today? Consult Who is your referring physician? Dr. Jeff Are you having poor oral intake? NO Have you had unintentional weight loss of 15 lbs/7 Kg in the last 3-6 months? NO Bowels: regular Wound: clean & dry Temperature: No Drains: No documented in this encounterProvidence Hospital09-11-2024 Telephone encounter Note * Telephone Encounter - Hilda Kitchen LPN - 04/11/2024 4:03 PM EDT Contacted patient, verified name and . Advised of the following Abdominal Surgeries performed and patient had Imaging performed from [facility] 03/29/24 and to bring Imaging with her to appointment. 2018--Gastric Bypass ( [facility], [place]) 2017--Appendectomy ([place], [place]; [facility]) Advised patient will contact to obtain Operative Reports and patient to be sent MyChart Message to contact if any needs or concerns arise, patient acknowledged and verbalized understanding. Hilda Kitchen LPN [facility]09-11-2024 Miscellaneous Notes* Telephone Encounter - Hilda Kitchen LPN - 04/11/2024 4:03 PM EDT Contacted patient, verified name and . Advised of the following Abdominal Surgeries performed and patient had Imaging performed from [facility] 03/29/24 and to bring Imaging with her to appointment. 2017--Gastric Bypass ( [facility], [place]) 2017--Appendectomy ([place], [place]; [facility]) Advised patient will contact to obtain Operative Reports and patient to be sent OQVestirhart Message to contact if any needs or concerns arise, patient acknowledged and verbalized understanding. Hilda Kitchen LPN documented in this encounterProvidence Hospital08-20-2024 NoteHNO ID: [id number] Author: LALA CONTRERAS APRN.VEST PRESSER Service: ? 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 Quique Contreras APRN.VEST PRESSER March 20, 2024 2:38 PM Allergies As of Date: 03/20/2024 (Not on File) Date Reviewed: Never Reviewed Problem List As Of Date: 03/20/2024 (None) Encounter Status:Closed by LALA CONTRERAS on 03/20/24[facility] 03-13-2024 NoteGeneral Surgery Office/Clinic Note Chief [...] CT Abdomen/Pelvis w/ Contrast (more content not included)...[facility] DaytonComment on above:Result Comment: Electronically Signed By: GUILLERMO RUSSELL, King Sanz\Date and Time Signed: 03/13/24 11:03 [id number] Hospital Discharge instructionsAmbulatory Orders* Referral to General Surgery Time Frame: 02/28/24, Location: [facility] Work Phone: 1(316) 313-639304-03-2024 History of Present illness Narrative* Héctor Gonzalez MD - 11/02/2023 11:30 AM EDT REASON [...] Depression Hypertension Hypothyroidism Kidney stones Migraines Seizure ([facility]) REVIEW OF SYSTEMS: Head and Neck: [...] for allowing me to participate in [facility]. If there are any questions, please do not hesitate to call me. Sincerely, HÉCTOR GONZALEZ MD Video Visit via Real-time Synchronous Audiovisual Provider Location: [facility] AT [address] [id number] Patient Location: Patient's home Patient Location Vehicle Check In Clerk: None Video Visit Consent Statement: I discussed [...] that there are some limitations compared to byzc-dj-uoyl evaluations. We elected to proceed. documented in this encounterOhioHealth [facility]03-19-2024 History of Present illness Narrative* Fred Chavez [...] linked telehealth rescheduledvisit. Fred Chavez MD Professor, [employer] [facility] [employer] [facility] (we called the patient ourselves and were not able to successfully connect with her) documented in this encounterOhioHealth Berger Hospital02-22-2024 History of Present illness Narrative* Rossy Carrington [...] Yes Have you been seen here at [facility] in a previous ? No Recent ER visits or hospitalizations? No Bring blood sugar log or meter with you today? (Please bring them with you for every visit at [facility]) N/A Traveled outside the country in the past 6 month No Any concerns that you would like me to mention to the provider today? No * Héctor Gonzalez MD - 09/22/2023 10:00 AM EST REASON [...] Depression Hypertension Hypothyroidism Kidney stones Migraines Seizure ([facility]) PAST OBSTETRICAL HISTORY: OB History 4 [...] and the other consultants, we search on CIBDO and all the available care everywhere epic I did review all the imaging studies of the patient available on EMR, ordered by the primary care physician and the other systems consultant HABITS: Patient activity no restrictions, diet [...] free T4 is verylow in , the is at risk for [...] for completion of targeted anatomy at our [facility] site. 5. 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 Patient does have ultrasound office visit scheduled with us Thank you for allowing me to participate in Tiffani Allison . If there any questions please do not hesitate to contact us. Sincerely, HÉCTOR GONZALEZ MD documented in this encounterSycamore Medical CenterRentShare [facility]–[id number] History of Present illness Narrative* REMY Valdes [...] Ambulatory Problems Past Medical History: Diagnosis Date COV2019 Depression with anxiety GERD (gastroesophageal reflux disease) HTN (hypertension) ([facility]) Hypothyroidism (acquired) ([facility]) Iron deficiency anemia Kidney stones Migraines (CMS/HCC) Seizure ([facility]) 2019 [...] hour glucose order to have done at [facility]. Follow Up: Patient is to [...] behalf of: REMY Valdes documented in this encounterMissouri Baptist Medical [id number] Miscellaneous Notes* Telephone Encounter - Janae Jiménez - 08/19/2023 10:42 AM EST LEFT A MESSAGE TO SCHEDULE USN AND CONSULT. 08/19/2023 1043 documented in this encounterOhioHealth Berger [facility] Telephone encounter Note* Telephone Encounter - Janae Jiménez - 08/19/2023 10:42 AM EST LEFT A MESSAGE TO SCHEDULE USN AND CONSULT. 08/19/2023 1043 [facility] [employer] [id number] Evaluation note* Encounter Date Diagnosis Assessment Notes [...] start metamucile and probiotics RTO 3 months [employer] Other 08-15-2023 Procedure [facility]06-28-2023 Hospital Discharge instructions Patient Education 01/26/2023 [...] include: ?8 oz (237 mL) of milk, cugnmpz-wilpwautlsro-bzoia milk, and calcium- fortifiedfruit juice. Calcium-fortified means [...] ?Spinach (cooked), rhubarb, beets, sweet potatoes, and Citizen Of [place] chard. ?Peanuts. ?Potato chips, icelandic fries, and baked potatoes with skin on. ?Nuts and nut products. ?Chocolate. If you regularly take a diuretic medicine, make sure to eat at least 1 or 2 servings of fruits or vegetables that are high in potassium each day. These include: ?Avocado. ?Banana. ?Mono, prune, carrot, or tomato juice. ?Baked potato. [...] magnesium, fish oil, or vitamin B6. Take vgtg-peb-omfreuw and prescription medicines only as told by [...] Lasagna. Frozen meals. Potato chips. Citizen Of [place] fries. The items listed above may not [...] provider. Document Revised: 03/29/2022 Document Reviewed: 03/29/2022 [employer] Patient Education 2022 [facility] [employer]. Follow Up Care 12/28/2022 12:57:40 With:Aram RUSSELL, Alyson Burdick, KAITLYNN, URO Address: When:Within 6 Month(s) Comments:marc/ DEYA & YAMILETH [facility] 06-19-2023 Evaluation note* Encounter Date Diagnosis Assessment Notes Treatment Notes Treatment Clinical Notes Dec, Iron deficiency anemia (ICD-10 - D50.9) Will proceed with EGD Will request recent lab work done at [facility]. Dec, GERD (gastroesophageal reflux disease) (ICD-10 - K21.9) Patient to continue on Omeprazole 40mg Dec, Diarrhea (ICD-10 - R19.7) Will proceed with Colonoscopy. [employer] Other Evaluation + Plan note Future Appointments Appointment Date:08/03/2023 10:00:00 AM Scheduled Provider:Alyson Chiu MD Location:[facility] Appointment Type:URO Office Visit [facility] evaluation + Plan note Future Appointments Appointment Date:08/03/2023 10:00:00 AM Scheduled Provider:Alyson Chiu MD Location:[facility] Appointment Type:URO Office Visit Diagnostic Tests Pending * Calculi [facility] Diagnosis Onset Date Resolution Status Iron deficiency anemia acute [facility] Work Phone: evaluation note* Diagnosis Second trimester state, incidental Diabetes mellitus screening Screening for diabetes mellitus 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 Work Phone: evaluation note* Diagnosis Gastroesophageal reflux disease, unspecified whether esophagitis present- Primary Incisional hernia, without obstruction or gangrene Incisional hernia without mention of obstruction or gangrene [facility] Gastroesophageal reflux disease, unspecified whether esophagitis present [facility] Diagnosis Onset Date Resolution Status Anxiety acute Depression acute Dry scalp acute GERD (gastroesophageal reflux disease) acute Hernia acute HTN (hypertension) acute Hypothyroid acute Iron deficiency anemia acute Tachycardia acute [facility] Work Phone: evaluation note* Diagnosis Onset Date Resolution Status Anxiety acute Depression acute Dry scalp acute GERD (gastroesophageal reflux disease) acute Hernia acute HTN (hypertension) acute Hypothyroid acute Iron deficiency anemia acute Tachycardia acute HTN (hypertension) acute Inappropriate sinus tachycardia acute Palpitations noneactive [facility] Work Phone: evaluation note* Diagnosis Body mass index 40.0-44.9, adult (HCC)- Primary Body Mass Index 40.0-44.9, adult documented in this encounter [facility] Diagnosis Onset Date Resolution Status Anxiety acute Depression acute Dry scalp acute GERD (gastroesophageal reflux disease) acute Hernia acute HTN (hypertension) acute Hypothyroid acute Iron deficiency anemia acute Tachycardia acute HTN (hypertension) acute Inappropriate sinus tachycardia acute Palpitations noneactive Anxiety acute Depression acute Right ankle injury acute Right ankle pain acute [facility] Work Phone: Evaluation note* Diagnosis Morbid obesity due to excess calories (HCC)- Primary S/P bariatric surgery Bariatric surgery status Preoperative testing Preoperative examination, unspecified Snoring Other dyspnea and respiratory abnormality Other fatigue Morbid obesity with BMI of 40.0-44.9, adult (HCC) Morbid obesity documented in this encounter [facility]* Diagnosis Preoperative examination- Primary Preoperative examination, unspecified documented in this encounter [facility]* Diagnosis H/O gastric sleeve- Primary Obesity, Class III, BMI 40-49.9 (morbid obesity) (HCC) Morbid obesity Dietary counseling and surveillance Dietary surveillance and counseling documented in this encounter [facility] note* Diagnosis Morbid obesity due to excess calories (HCC) S/P bariatric surgery Bariatric surgery status Preoperative testing Preoperative examination, unspecified Snoring Other dyspnea and respiratory abnormality Other fatigue Morbid obesity with BMI of 40.0-44.9, adult (HCC) Morbid obesity documented in this encounter [facility]* Diagnosis Pain and swelling of right lower leg- Primary Ankle joint instability, right Pain of right calf documented in this encounter [facility]* Diagnosis 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 Moderate right ankle sprain, sequela documented in this encounter [facility]* Diagnosis Ankle joint instability, right- Primary Sinus tarsi syndrome of right ankle Posterior tibial tendinitis of right lower extremity documented in this encounter [facility]* Diagnosis Nicotine dependence in remission, unspecified nicotine product type- Primary documented in this encounter [facility]* Diagnosis Other specified disorders of synovium, right ankle and foot- Primary Sinus tarsitis of right foot documented in this encounter [facility]* Diagnosis Essential hypertension affecting in second trimester- Primary [facility] Diagnosis Pre-existing essential hypertension during in second trimester- Primary Advanced maternal age in multigravida, second trimester Hypothyroid in , antepartum [facility]* Diagnosis Essential hypertension affecting in second trimester- Primary [facility]* Diagnosis Sinus tarsitis of right foot- Primary Other specified disorders of synovium, right ankle and foot documented in this encounter [facility]* Diagnosis Morbid obesity (HCC)- Primary Morbid obesity Hiatal hernia Diaphragmatic hernia without mention of obstruction or gangrene Preoperative examination Preoperative examination, unspecified [facility]* Diagnosis Preoperative examination- Primary Preoperative examination, unspecified Hiatal hernia Diaphragmatic hernia without mention of obstruction or gangrene Morbid obesity (HCC) Morbid obesity [facility]* Diagnosis Other specified disorders of synovium, right ankle and foot- Primary Sinus tarsitis of right foot Contracture of left ankle documented in this encounter [facility]* Diagnosis Preoperative examination- Primary Preoperative examination, unspecified Hiatal hernia Diaphragmatic hernia without mention of obstruction or gangrene Morbid obesity (HCC) Morbid obesity Primary hypertension Unspecified essential hypertension Gastroesophageal reflux disease without esophagitis Esophageal reflux Acquired hypothyroidism Unspecified hypothyroidism Inappropriate sinus tachycardia (HCC) Other specified cardiac dysrhythmias Other iron deficiency anemia Insulin resistance Dysmetabolic Syndrome X Psoriatic arthritis (HCC) Psoriatic arthropathy Class 3 severe obesity without serious comorbidity with body mass index (BMI) of 40.0 to 44.9 in adult, unspecified obesity type (HCC) Preoperative examination Preoperative examination, unspecified Hiatal hernia Diaphragmatic hernia without mention of obstruction or gangrene Morbid obesity (HCC) Morbid obesity * Assessment & Plan Note - Lachelle Banegas PA-C - 11/06/2024 11:44 AM EDT Associated Problem(s): Class 3 severe obesity without serious comorbidity with body mass index (BMI) of 40.0 to 44.9 in adult (HCC) Body mass index is 45.52 kg/m . * Assessment & Plan Note - Lachelle Banegas PA-C - 11/06/2024 10:46 AM EDT Associated Problem(s): Psoriatic arthritis (HCC) Managed with NSAIDS * Assessment & Plan Note - Lachelle Banegas PA-C - 11/06/2024 10:46 AM EDT Associated Problem(s): Insulin resistance Managed with Metformin * Assessment & Plan Note - Lachelle Banegas PA-C - 11/06/2024 10:45 AM EDT Associated Problem(s): Iron deficiency anemia Hemoglobin (g/dL) Date Value 11/06/2024 14.5 Hematocrit (%) Date Value 11/06/2024 43.4 WBC (k/uL) Date Value 11/06/2024 11.25 Stable * Assessment & Plan Note - Lachelle Banegas PA-C - 11/06/2024 10:44 AM EDT Associated Problem(s): Inappropriate sinus tachycardia (HCC) Managed with metoprolol * Assessment & Plan Note - Lachelle Banegas PA-C - 11/06/2024 10:44 AM EDT Associated Problem(s): Hypothyroidism Stable on Synthroid * Assessment & Plan Note - Lachelle Banegas PA-C - 11/06/2024 10:43 AM EDT Associated Problem(s): GERD (gastroesophageal reflux disease) Symptoms controlled with PPI * Assessment & Plan Note - Lachelle Banegas PA-C - 11/06/2024 10:43 AM EDT Associated Problem(s): Hypertension Stable, complaint on AMLODIPINE 10 MG TABLET Take 10 mg by mouth. METOPROLOL SUCCINATE ER 100 MG TABLET,EXTENDED RELEASE 24 HR Take 100 mg by mouth. Follows with PCP. Last 3 Encounter BP Readings: Date: BP: 11/06/2024 139/88 04/24/2024 144/82 04/16/2024 149/79 [facility]* Diagnosis Preoperative examination- Primary Preoperative examination, unspecified Hiatal hernia Diaphragmatic hernia without mention of obstruction or gangrene Morbid obesity (HCC) Morbid obesity Primary hypertension Unspecified essential hypertension Gastroesophageal reflux disease without esophagitis Esophageal reflux Acquired hypothyroidism Unspecified hypothyroidism Inappropriate sinus tachycardia (HCC) Other specified cardiac dysrhythmias Other iron deficiency anemia Insulin resistance Dysmetabolic Syndrome X Psoriatic arthritis (HCC) Psoriatic arthropathy Class 3 severe obesity without serious comorbidity with body mass index (BMI) of 40.0 to 44.9 in adult, unspecified obesity type (HCC) Preoperative examination Preoperative examination, unspecified Hiatal hernia Diaphragmatic hernia without mention of obstruction or gangrene Morbid obesity (HCC) Morbid obesity Preoperative examination Preoperative examination, unspecified Hiatal hernia Diaphragmatic hernia without mention of obstruction or gangrene Morbid obesity (HCC) Morbid obesity documented in this encounter [facility]* Diagnosis Preoperative examination- Primary Preoperative examination, unspecified Hiatal hernia Diaphragmatic hernia without mention of obstruction or gangrene Morbid obesity (HCC) Morbid obesity Primary hypertension Unspecified essential hypertension Gastroesophageal reflux disease without esophagitis Esophageal reflux Acquired hypothyroidism Unspecified hypothyroidism Inappropriate sinus tachycardia (HCC) Other specified cardiac dysrhythmias Other iron deficiency anemia Insulin resistance Dysmetabolic Syndrome X Psoriatic arthritis (HCC) Psoriatic arthropathy Class 3 severe obesity without serious comorbidity with body mass index (BMI) of 40.0 to 44.9 in adult, unspecified obesity type Bariatric surgery status- Primary S/P repair of ventral hernia Other postprocedural status documented in this encounter [facility]* Diagnosis Preoperative examination- Primary Preoperative examination, unspecified Hiatal hernia Diaphragmatic hernia without mention of obstruction or gangrene Morbid obesity (HCC) Morbid obesity Primary hypertension Unspecified essential hypertension Gastroesophageal reflux disease without esophagitis Esophageal reflux Acquired hypothyroidism Unspecified hypothyroidism Inappropriate sinus tachycardia (HCC) Other specified cardiac dysrhythmias Other iron deficiency anemia Insulin resistance Dysmetabolic Syndrome X Psoriatic arthritis (HCC) Psoriatic arthropathy Class 3 severe obesity without serious comorbidity with body mass index (BMI) of 40.0 to 44.9 in adult, unspecified obesity type Acute postoperative pain Other acute postoperative pain documented in this encounter [facility]* Diagnosis Preoperative examination- Primary Preoperative examination, unspecified Hiatal hernia Diaphragmatic hernia without mention of obstruction or gangrene Morbid obesity (HCC) Morbid obesity Primary hypertension Unspecified essential hypertension Gastroesophageal reflux disease without esophagitis Esophageal reflux Acquired hypothyroidism Unspecified hypothyroidism Inappropriate sinus tachycardia (HCC) Other specified cardiac dysrhythmias Other iron deficiency anemia Insulin resistance Dysmetabolic Syndrome X Psoriatic arthritis (HCC) Psoriatic arthropathy Class 3 severe obesity without serious comorbidity with body mass index (BMI) of 40.0 to 44.9 in adult, unspecified obesity type Postoperative visit- Primary Other specified aftercare following surgery documented in this encounter [facility] note* Diagnosis Preoperative examination- Primary Preoperative examination, unspecified Hiatal hernia Diaphragmatic hernia without mention of obstruction or gangrene Morbid obesity (HCC) Morbid obesity Primary hypertension Unspecified essential hypertension Gastroesophageal reflux disease without esophagitis Esophageal reflux Acquired hypothyroidism Unspecified hypothyroidism Inappropriate sinus tachycardia (HCC) Other specified cardiac dysrhythmias Other iron deficiency anemia Insulin resistance Dysmetabolic Syndrome X Psoriatic arthritis (HCC) Psoriatic arthropathy Class 3 severe obesity without serious comorbidity with body mass index (BMI) of 40.0 to 44.9 in adult, unspecified obesity type Acute postoperative pain- Primary Other acute postoperative pain documented in this encounter [facility] note* Diagnosis Preoperative examination- Primary Preoperative examination, unspecified Hiatal hernia Diaphragmatic hernia without mention of obstruction or gangrene Morbid obesity (HCC) Morbid obesity Primary hypertension Unspecified essential hypertension Gastroesophageal reflux disease without esophagitis Esophageal reflux Acquired hypothyroidism Unspecified hypothyroidism Inappropriate sinus tachycardia (HCC) Other specified cardiac dysrhythmias Other iron deficiency anemia Insulin resistance Dysmetabolic Syndrome X Psoriatic arthritis (HCC) Psoriatic arthropathy Class 3 severe obesity without serious comorbidity with body mass index (BMI) of 40.0 to 44.9 in adult, unspecified obesity type Encounter for postoperative wound check- Primary Other specified aftercare following surgery documented in this encounter [facility] note* Diagnosis Onset Date Resolution Status Admit Date Abdominal pain acute December 20, 2024 10:59am H/O gastric bypass acute December 202024 10:59am [facility] Work Phone: Evaluation note* Diagnosis Preoperative examination- Primary Preoperative examination, unspecified Hiatal hernia Diaphragmatic hernia without mention of obstruction or gangrene Morbid obesity (HCC) Morbid obesity Primary hypertension Unspecified essential hypertension Gastroesophageal reflux disease without esophagitis Esophageal reflux Acquired hypothyroidism Unspecified hypothyroidism Inappropriate sinus tachycardia (HCC) Other specified cardiac dysrhythmias Other iron deficiency anemia Insulin resistance Dysmetabolic Syndrome X Psoriatic arthritis (HCC) Psoriatic arthropathy Class 3 severe obesity without serious comorbidity with body mass index (BMI) of 40.0 to 44.9 in adult, unspecified obesity type Encounter for postoperative wound check- Primary Other specified aftercare following surgery documented in this encounter [facility]* Diagnosis Preoperative examination- Primary Preoperative examination, unspecified Hiatal hernia Diaphragmatic hernia without mention of obstruction or gangrene Morbid obesity (HCC) Morbid obesity Primary hypertension Unspecified essential hypertension Gastroesophageal reflux disease without esophagitis Esophageal reflux Acquired hypothyroidism Unspecified hypothyroidism Inappropriate sinus tachycardia (HCC) Other specified cardiac dysrhythmias Other iron deficiency anemia Insulin resistance Dysmetabolic Syndrome X Psoriatic arthritis (HCC) Psoriatic arthropathy Class 3 severe obesity without serious comorbidity with body mass index (BMI) of 40.0 to 44.9 in adult, unspecified obesity type (HCC) Acute postoperative pain- Primary Other acute postoperative pain documented in this encounter [facility]* Diagnosis Preoperative examination- Primary Preoperative examination, unspecified Hiatal hernia Diaphragmatic hernia without mention of obstruction or gangrene Morbid obesity (HCC) Morbid obesity Primary hypertension Unspecified essential hypertension Gastroesophageal reflux disease without esophagitis Esophageal reflux Acquired hypothyroidism Unspecified hypothyroidism Inappropriate sinus tachycardia (HCC) Other specified cardiac dysrhythmias Other iron deficiency anemia Insulin resistance Dysmetabolic Syndrome X Psoriatic arthritis (HCC) Psoriatic arthropathy Class 3 severe obesity without serious comorbidity with body mass index (BMI) of 40.0 to 44.9 in adult, unspecified obesity type (HCC) Acute postoperative pain Other acute postoperative pain documented in this encounter [facility]* Diagnosis Preoperative examination- Primary Preoperative examination, unspecified Hiatal hernia Diaphragmatic hernia without mention of obstruction or gangrene Morbid obesity (HCC) Morbid obesity Primary hypertension Unspecified essential hypertension Gastroesophageal reflux disease without esophagitis Esophageal reflux Acquired hypothyroidism Unspecified hypothyroidism Inappropriate sinus tachycardia (HCC) Other specified cardiac dysrhythmias Other iron deficiency anemia Insulin resistance Dysmetabolic Syndrome X Psoriatic arthritis (HCC) Psoriatic arthropathy Class 3 severe obesity without serious comorbidity with body mass index (BMI) of 40.0 to 44.9 in adult, unspecified obesity type (HCC) S/P hernia repair- Primary Other postprocedural status Postoperative visit Other specified aftercare following surgery documented in this encounter [facility] note* Diagnosis Preoperative examination- Primary Preoperative examination, unspecified Hiatal hernia Diaphragmatic hernia without mention of obstruction or gangrene Morbid obesity (HCC) Morbid obesity Primary hypertension Unspecified essential hypertension Gastroesophageal reflux disease without esophagitis Esophageal reflux Acquired hypothyroidism Unspecified hypothyroidism Inappropriate sinus tachycardia (HCC) Other specified cardiac dysrhythmias Other iron deficiency anemia Insulin resistance Dysmetabolic Syndrome X Psoriatic arthritis (HCC) Psoriatic arthropathy Class 3 severe obesity without serious comorbidity with body mass index (BMI) of 40.0 to 44.9 in adult, unspecified obesity type (HCC) NO SHOW- Primary documented in this encounter [facility]* Diagnosis Sinus tarsitis of right foot- Primary Other specified disorders of synovium, right ankle and foot [facility] left knee meniscus Hospitalization History see above [employer] Other Hospital course Narrative No data available for this section [facility] Hospital Discharge instructions No data available for this section [facility] Additional Instructions DISCHARGE INSTRUCTIONS FOR [...] if you have any problems. -Office number [phone] Work [facility]: Hospital Discharge instructionsAmbulatory Orders* Referral to Dermatology Time Frame: 02/26/25, Location: None Selected * Referral to Psychiatry Time Frame: 02/26/25, Location: None Selected [facility] Work Phone: InstructionsNot on filedocumented in this encounter [facility] on filedocumented in this encounter [facility] filedocumented in this encounter [facility]Not on filedocumented in this encounter [facility]ructionsNot on filedocumented in this encounter [facility] No data available for this section [facility] reason for visit Narrative* Consult, Test, Treat (Routine) - Closed Specialty Diagnoses / Procedures Referred By Jimbo gurrola Referred To Contact Diagnoses Preoperative examination Hiatal hernia Morbid obesity (HCC) Procedures REFER TO [facility] PREOPERATIVE OPTIMIZATION OFFICE/OUTPATIENT [facility] 60 MINUTES Ginger Silveira, CUSTOM DESIGNER.VEST PRESSER [address] [place] [id number] Phone: tel: fax: Referral ID Status Reason Start Date Expiration Date V isits Requested Visits Authorized [id number] Closed PCP Requested Referral 10/01/2024 09/28/2025 1 1 [facility] for visit Narrative* Consult, Test, Treat (Routine) - Closed Specialty Diagnoses / Procedures Referred By Jimbo gurrola Referred To Contact Diagnoses Preoperative examination Hiatal hernia Morbid obesity (HCC) Procedures CONSULT TO [facility] OFF[facility]/OUTPATIENT [facility] 60 MINUTES Ginger Silveira, CUSTOM DESIGNER.VEST PRESSER [address] [place] [id number] Phone: tel: fax: Referral ID Status Reason Start Date Expiration Date V isits Requested Visits Authorized [id number] Closed PCP Requested Referral 10/01/2024 09/28/2025 1 1 [facility] Summary Purpose Family History Relationship Condition Age at Onset Recorded Date/T [...] grandparent History of stroke Unknown Advance Directives Advance Directive Response Recorded Date/ Time Advance [...] Complaint Admit Date TACHYCARDIA, UNSPECIFIED May 10 10:43am r00.0 May 10, 2024 1 0:45am [...] 40-49.9 (morbid obesity) August 15, 2024 10:51am Chief Complaint Admit Date 4 week f/u:LVM to R/S 05/31-HIGH RISK No vember 2023 10:02am 6 months f/u/mental health August 15, 2024 10:51am 4 week f/u September 14, 2024 11:18am Reason for Visit Admit Date Anxiety June 19, 2024 10:02am Depression June 19, 2024 10:02am Anxiety August 15, 2024 1 0:51am Depression August 15, 2024 1 0:51am IFG (impaired fasting glucose) August 012024 10:51am Obesity, Class III, BMI 40-49.9 (morbid obesity) August 15, 2024 10:51am Anxiety September 14, 2024 11:18am Depression September 14, 2024 11:18am IFG (impaired fasting glucose) September 14, 2024 11:18am Chief Complaint Admit Date 6 month f/u December 20, 2024 10:59 am Reason for Visit Admit Date Abdominal pain December 20, 2024 10:59 am H/O gastric bypass December 20, 2024 10:59 am Chief Complaint Admit Date 6 month f/u December 20, 2024 10:59 am mental health concerns February 26, 2025 9 :55am Reason for Visit Admit Date Abdominal pain December 20, 2024 10:59 am Anxiety December 20, 2024 10:59 am Depression December 20, 2024 10:59 am H/O gastric bypass December 20, 2024 10:59 am H/O hernia repair December 20, 2024 10:59 am History of repair of hiatal hernia November 302024 10:59am Hypothyroid December 20, 2024 10:59 am Open abdominal wall wound December 20, 2024 10:59am Attention deficit February 26, 2025 9:55 am Depression February 26, 2025 9:55 am Difficulty concentrating February 26, 2025 9:55am Hypothyroid February 26, 2025 9:55 am IFG (impaired fasting glucose) January 9:55am Iron deficiency anemia February 26, 2025 9 :55am Rash February 26, 2025 9:55 am Screening for lipid disorders February 26, 2025 9:55am Reason for Referral Specialty Diagnoses / Procedures Referred By Contac t Referred To Contact Maternal and Medicine Diagnoses Pre-existing essential hypertension during in second trimester Advanced maternal age in multigravida, second trimester Hypothyroid in , antepartum Procedures [facility] with or without consult Héctor Gonzalez MD [address] [facility] [place], [address] [place] [address] [facility] Maternal Med [address] [place] [address] Referral ID Status Reason Start Date Expiration Date V isits Requested Visits Authorized [id number] Pending Review 09/22/2023 09/21/2024 1 1 Specialty Diagnoses / Procedures Referred By Contac t Referred To Contact Diagnoses Morbid obesity due to excess calories (HCC) S/P bariatric surgery Preoperative testing Snoring Other fatigue Morbid obesity with BMI of 40.0-44.9, adult (HCC) Procedures CONSULT TO SLEEP MEDICINE - ADULT OFFICE/OUTPATIENT [facility] 60 MINUTES Renetta Ruano MD [address] [place] [address] Referral ID Status Reason Start Date Expiration Date Visits Requested Visits Authorized [id number] Pending Review PCP Requested Referral 05/24/2025 1 1 Specialty Diagnoses / Procedures Referred By Contac t Referred To Contact [facility] Diagnoses Morbid obesity due to excess calories (HCC) S/P bariatric surgery Preoperative testing Snoring Other fatigue Morbid obesity with BMI of 40.0-44.9, adult (HCC) Procedures HOME SLEEP APNEA TEST (HSAT) SLEEP STD AIRFLOW HRT RATE&O2 SAT EFFORT UNATT Renetta Ruano MD [address] [place] [address] [facility] [address] [place] [address] Referral ID Status Reason Start Date Expiration Date Visits Requested Visits Authorized [id number] New Request Auto-Generat ed Referral 05/24/2025 1 1 Specialty Diagnoses / Procedures Referred By Contac t Referred To Contact GENERAL SURGERY Diagnoses Gastroesophageal reflux disease, unspecified whether esophagitis present Procedures [facility] OFFICE/OUTPATIENT NEW HIGH MDM 60 MINUTES Rocio Jeff MD [address] [place] [address] Raine Grissom MD [address] [place] [address] Referral ID Status Reason Start Date Expiration Date V isits Requested Visits Authorized [id number] Authorized 04/18/2024 07/31/2024 1 1 Additional Source Comments INFORMATION SOURCE (unrecogn ized section and content) DATE CREATED AUTHOR 01/07/2023 [facility] DATE CREATED AUTHOR AUTHOR'S ORGANIZ ATION 10/19/2023 [facility] DATE CREATED AUTHOR AUTHOR'S ORGANIZ ATION 11/03/2023 [facility] DATE CREATED AUTHOR AUTHOR'S ORGANIZ ATION 01/06/2024 [facility] EPIC DATE CREATED AUTHOR AUTHOR'S ORGANIZ ATION 03/14/2024 [facility] DATE CREATED AUTHOR AUTHOR'S ORGANIZ ATION 05/12/2024 [facility] DATE CREATED AUTHOR AUTHOR'S ORGANIZ ATION 02/21/2025 [facility] DATE CREATED AUTHOR AUTHOR'S ORGANIZ ATION 02/25/2025 [facility] EPIC REASON FOR VISIT (unrecogniz ed section and content) Reason Comments Routine Visit Reason Comments Patient Update Reason Comments Consult Specialty Diagnoses / Procedures Referred By Contac t Referred To Contact General Surgery / GENERAL SURGERY Diagnoses Abdominal wall hernia Ventral wall mass & abdominal wall hernia Procedures OFFICE/OUTPATIENT NEW SF MDM 15 MINUTES OFFICE/OUTPATIENT NEW LOW MDM 30 MINUTES OFFICE/OUTPATIENT NEW MODERATE MDM 45 MINUTES OFFICE/OUTPATIENT NEW HIGH MDM 60 MINUTES NEW DDI PATIENT Self Rocio Jeff MD [address] [place] [address] Referral ID Status Reason Start Date Expiration Date Visits Re quested Visits Authorized [id number] Closed 03/26/2024 07/31/2024 1 1 Reason Comments New Patient Specialty Diagnoses / Procedures Referred By Contac t Referred To Contact GENERAL SURGERY Diagnoses Gastroesophageal reflux disease, unspecified whether esophagitis present Procedures [facility] OFFICE/OUTPATIENT NEW HIGH MDM 60 MINUTES Rocio Jeff MD [address] [place] [address] Raine Grissom MD [address] [place] [address] Referral ID Status Reason Start Date Expiration Date Visits Re quested Visits Authorized [id number] Closed 04/18/2024 07/31/2024 1 1 Reason Comments Established Patient Specialty Diagnoses / Procedures Referred By Contac t Referred To Contact GENERAL SURGERY Diagnoses follow up Procedures follow up Raine Grissom MD [address] [place] [address] [address] [place] [address] Referral ID Status Reason Start Date Expiration Date V isits Requested Visits Authorized [id number] Closed OON/Self Pay Override Clearance Not Met -Financial Clearance Bypassed 05/14/2024 08/22/2025 1 1 Reason Comments Patient Update pt update Reason Comments New Patient Specialty Diagnoses / Procedures Referred By Contac t Referred To Contact Diagnoses Gastro-esophageal reflux disease without esophagitis Procedures NEW PATIENT VISIT LEVEL 1 Raine Grissom MD [address] [place] [address] [facility] [address] [place] [address] Referral ID Status Reason Start Date Expiration Date Visits Requested Visits Authorized [id number] Authorized OON/Self Pay Override 08/01/2023 07/31/2024 99 99 Reason Comments Patient Education Assessment Specialty Diagnoses / Procedures Referred By Contac t Referred To Contact Diagnoses Gastro-esophageal reflux disease without esophagitis Procedures NEW PATIENT VISIT LEVEL 1 Raine Grissom MD [address] [place] [address] [facility] [place] [id number] Specialty Diagnoses / Procedures Referred By Contcedrick t Referred To Contact XR IMAGING Diagnoses Morbid obesity due to excess calories (HCC) [E66.01] S/P bariatric surgery [Z98.84] Preoperative testing [Z01.818] Snoring [R06.83] Other fatigue [R53.83] Morbid obesity with BMI of 40.0-44.9, adult (HCC) [E66.01, Z68.41] Procedures XR CHEST 2V FRONTAL/LAT Renetta Ruano MD [address] [place] [id number] [facility] [place] [address] Referral ID Status Reason Start Date Expiration Date Visits Requested Visits Authorized [id number] New Request OON/Self Pay Override 06/08/2024 09/16/2025 1 1 Reason Comments Pain Reason Comments Pain Reason Comments Foot Callouses Rt callous Reason Comments Results Reason Comments Advanced Maternal Age Chronic Hypertension Hypothyroidism Reason Comments Follow-up 2wk rt sinus tarsi c heck Reason Comments 11/04/2024 (pseudo) Reason Comments 04.25.25 Cure Open Complex AWR 4 h ours los [address] Grissom Hiatal hernia/Lap Gastric Sleeve 3 hours Reason Comments Follow-up Rt ankle capsulitis Reason Comments Approval call Reason Comments Post-Op Visit Reason Comments Post Op Call Reason Comments Post Op Reason Comments Ankle Pain Patient Care team informatio n (unrecognized section and content) Team Status: Active Member Role Status Dates Wilber More [facility] Primary Care Provider Active Team Status: Inactive Member Role Status Dates Denys Gallego MD Attending Provider Active Wilber More [facility] Primary Care Provider Active Team Status: Inactive Member Role Status Dates Wilber More [facility] Primary Care Provider Active Start: December 12, 2023 End: December 12, 2023 Adrian Kerr Attending Provider Active Start: Yissel marie 2023 End: December 12, 2023 Team Status: Inactive Member Role Status Dates Wilber More , IMMIGRATION SPECIALIST-BC Primary Care Provider Active Start: December 12, 2023 End: December 12, 2023 Adrian Kerr DO Attending Provider Active Start : December 12, 2023 End: December 12, 2023 Team Status: Inactive Member Role Status Dates Wilber More , IMMIGRATION SPECIALIST-BC Primary Care Provider Active Start: February 28, 2024 End: February 28, 2024 Elisabeth Beckman APRN SEAT TRIMMER-C Attending Provider Act chano Start: February 28, 2024 End: February 28, 2024 Reed Press Feeder Relationship Specialty Start Date End Date Adrian Kerr DO [address] [place] [address] Referring Business Services Tech 03/16/24 Reed Press Feeder Relationship Specialty Start Date End Date Adrian Kerr DO [address] [place] [address] Referring Business Services Tech 03/16/24 Reed Press Feeder Relationship Specialty Start Date End Date Adrian Kerr DO [address] [place] [address] Referring Business Services Tech 03/16/24 Team Status: Inactive Member Role Status Dates Wilber More , IMMIGRATION SPECIALIST-BC Primary Care Provider Active Start: May 10, 2024 End: May 10, 2024 Felipe Quiñones MD Attending Provider Activ e Start: May 10, 2024 End: May 10, 2024 Elisabeth Beckman APRN SEAT TRIMMER-C Referring Provider Active Start: May 10, 2024 End: May 10, 2024 Team Status: Active Member Role Status Dates Wilber More , IMMIGRATION SPECIALIST-BC Primary Care Provider Active Start: May 10, 2024 Felipe Quiñones MD Attending Provider Activ e Start: May 10, 2024 Team Status: Inactive Member Role Status Dates Wilber More , IMMIGRATION SPECIALIST-BC Primary Care Provider Active Start: May 10, 2024 End: May 10, 2024 Felipe Quiñones MD Attending Provider Activ e Start: May 10, 2024 End: May 10, 2024 Reed Press Feeder Relationship Specialty Start Date End Date Katey Kerry R, DO [address] [place] [address] Referring Business Services Tech 03/16/24 Reed Press Feeder Relationship Specialty Start Date End Date Adrian Kerr R, DO [address] [place] [address] Referring Business Services Tech 03/16/24 Team Status: Active Member Role Status Dates Elisabeth Beckman APRN SEAT TRIMMER-C Primary Care Provider Active Team Status: Inactive Member Role Status Dates Elisabeth Beckman APRN SEAT TRIMMER-C Primary Care Provider, Attending Provider Active Start: May 24, 2024 End: May 24, 2024 Reed Press Feeder Relationship Specialty Start Date End Date Adrian Kerr R, DO [address] [place] [address] Referring Business Services Tech 03/16/24 Reed Press Feeder Relationship Specialty Start Date End Date Adrian Kerr R, DO [address] [place] [address] Referring Business Services Tech 03/16/24 Reed Press Feeder Relationship Specialty Start Date End Date Adrian eKrr R, DO [address] [place] [address] Referring Business Services Tech 03/16/24 Reed Press Feeder Relationship Specialty Start Date End Date Adrian Kerr R, DO [address] [place], [place] [id number] Referring Business Services Tech 03/16/24 Team Status: Active Member Role Status Dates lEisabeth Beckman APRN SEAT TRIMMER-C Primary Care Provider, Attending Provider Active Start: June 15, 2024 Team Status: Inactive Member Role Status Dates Elisabeth Beckman APRN SEAT TRIMMER-C Primary Care Provider, Attending Provider Active Start: June 19, 2024 End: June 19, 2024 Reed Press Feeder Relationship Specialty Start Date End Date Elisabeth Beckman NP [address] [place] [address] [place] [address] PCP - General Family Medicine 06/15/24 Reed Press Feeder Relationship Specialty Start Date End Date Elisabeth Beckman NP [address] [place] [address] [place] [address] PCP - General Family Medicine 06/15/24 Reed Press Feeder Relationship Specialty Start Date End Date Elisabeth Beckman NP [address] [place] [address] [place] [address] PCP - General Family Medicine 06/15/24 Team Status: Inactive Member Role Status Dates Elisabeth Beckman APRN SEAT TRIMMER-C Primary Care Provider, Attending Provider Active Start: August 15, 2024 End: August 15, 2024 Reed Press Feeder Relationship Specialty Start Date End Date Elisabeth Beckman NP [address] [place] [address] [place] [address] PCP - General Family Medicine 06/15/24 Reed Press Feeder Relationship Specialty Start Date End Date Adrian Kerr DO [address] [place] [address] [place] [address] Referring Business Services Tech 03/16/24 Reed Press Feeder Relationship Specialty Start Date End Date Adrian Kerr DO [address] [place], [place] [address]e [place] [address] [place] [address] Referring Business Services Tech 03/16/24 Reed Press Feeder Relationship Specialty Start Date End Date Elisabeth Beckman NP [address] [place] [address] [place] [address] PCP - General Family Medicine 06/15/24 Reed Press Feeder Relationship Specialty Start Date End Date Elisabeth Beckman NP [facility] [place] [address] PCP - General Family Medicine 06/15/24 Team Status: Inactive Member Role Status Dates Elisabeth Beckman APRN SEAT TRIMMER-C Primary Care Provider, Attending Provider Active Start: September 14, 2024 End: September 14, 2024 Reed Press Feeder Relationship Specialty Start Date End Date No Pcp, [place] [address] PCP - General Family Medicine 10/18/23 Reed Press Feeder Relationship Specialty Start Date End Date No Pcp, [place] [address] PCP - General Family Medicine 10/18/23 Reed Press Feeder Relationship Specialty Start Date End Date Elisabeth Beckman NP [address] [place] [address] [place] [address] PCP - General Family Medicine 06/15/24 Reed Press Feeder Relationship Specialty Start Date End Date Adrian Kerr DO [address] [place], [place] [address] [place] [address] [place] [address] Referring Business Services Tech 03/16/24 Reed Press Feeder Relationship Specialty Start Date End Date Adrian Kerr DO [address] [place], [place] [address] [place] [address] [place] [address] Referring Business Services Tech 03/16/24 Reed Press Feeder Relationship Specialty Start Date End Date Elisabeth Beckman NP [address] [place] [id number] PCP - General Family Medicine 06/15/24 Reed Press Feeder Relationship Specialty Start Date End Date Elisabeth Beckman NP [address] [place] [id number] PCP - General Family Medicine 06/15/24 Reed Press Feeder Relationship Specialty Start Date End Date Elisabeth Beckman NP [address] [place] [id number] PCP - General Family Medicine 06/15/24 Reed Press Feeder Relationship Specialty Start Date End Date Elisabeth Beckman NP [address] [place] [address] PCP - General Nurse Practitioner 10/23/24 Adrian Kerr DO [address] [place] [address] Referring Business Services Tech 03/16/24 Reed Press Feeder Relationship Specialty Start Date End Date Elisabeth Beckman NP [address] [place] [phone] PCP - General Nurse Practitioner 10/23/24 Adrian Kerr DO [address] [place], [place] [phone] Referring Business Services Tech 03/16/24 Reed Press Feeder Relationship Specialty Start Date End Date Elisabeth Beckman NP [address] [place] [address] PCP - General Nurse Practitioner 10/23/24 Adrian Kerr DO [facility] [place] [address] Referring Business Services Tech 03/16/24 Reed Press Feeder Relationship Specialty Start Date End Date Elisabeth Beckman NP [address] [place] [address] PCP - General Nurse Practitioner 10/23/24 Adrian Kerr DO [facility] [place] [address] Referring Business Services Tech 03/16/24 Reed Press Feeder Relationship Specialty Start Date End Date Elisabeth Beckman NP [address] [place] [address] PCP - General Nurse Practitioner 10/23/24 Adrian Kerr DO [facility] [place] [address] Referring Business Services Tech 03/16/24 Reed Press Feeder Relationship Specialty Start Date End Date Elisabeth Beckman SEAT TRIMMER [address] [place] [address] PCP - General Nurse Practitioner 10/23/24 Adrian Kerr DO [facility] [place] [address] Referring Business Services Tech 03/16/24 Reed Press Feeder Relationship Specialty Start Date End Date Elisabeth Beckman NP [address] [place] [address] PCP - General Nurse Practitioner 10/23/24 Adrian Kerr DO [facility] [address] [place] [address] Referring Business Services Tech 03/16/24 Reed Press Feeder Relationship Specialty Start Date End Date Elisabeth Beckamn NP [address] [place] [address] PCP - General Nurse Practitioner 10/23/24 Adrian Kerr DO [facility] [address] [facility] [address] Referring Business Services Tech 03/16/24 Team Status: Active Member Role Status Dates Elisabeth Beckman APRN SEAT TRIMMER-C Primary Care Provider, Attending Provider Active Start: November 06, 2024 Team Status: Inactive Member Role Status Dates Elisabeth Beckman APRN SEAT TRIMMER-C Primary Care Provider, Attending Provider Active Start: December 20, 2024 End: December 20, 2024 Reed Press Feeder Relationship Specialty Start Date End Date Elisabeth Beckman NP [address] [place] [address] PCP - General Nurse Practitioner 10/23/24 Adrian Kerr DO [facility] [address] [facility] [address] Referring Business Services Tech 03/16/24 Reed Press Feeder Relationship Specialty Start Date End Date Elisabeth Beckman NP [address] [place] [address] PCP - General Nurse Practitioner 10/23/24 Adrian Kerr DO [address] [place] [address] Referring Business Services Tech 03/16/24 Reed Press Feeder Relationship Specialty Start Date End Date Elisabeth Beckman NP [address] [place] [address] PCP - General Nurse Practitioner 10/23/24 Adrian Kerr DO [facility] [place] [address] Referring Business Services Tech 03/16/24 Reed Press Feeder Relationship Specialty Start Date End Date Elisabeth Beckman NP [address] [place] [address] PCP - General Nurse Practitioner 10/23/24 Adrian Kerr DO [address] [place], [place] [address] [place] [address] Referring Business Services Tech 03/16/24 Reed Press Feeder Relationship Specialty Start Date End Date Elisabeth Beckman NP [address] [place] [address] PCP - General Family Medicine 06/15/24 Team Status: Inactive Member Role Status Dates Elisabeth Beckman APRN SEAT TRIMMER-C Primary Care Provider Active Start: December 20, 2024 End: December 20, 2024 Elisabeth Beckman APRN SEAT TRIMMER-Amber Attending Provider Act chano Start: December 20, 2024 End: December 20, 2024 Team Status: Inactive Member Role Status Dates BRENDA Kim Primary Care Provider Active Start: February 26, 2025 End: February 26, 2025 BRENDA Kim Attending Provider Act chano Start: February 26, 2025 End: February 26, 2025 Goals (unrecognized section and content) Goals may be documented in a n alternate section Source Comments (unrecognize d section and content) In the event this informatio n is protected by the Federal Confidentiality of Alcohol and Drug Abuse Patient Records regulations: The Federal rules restrict any use of the information to criminally investigate or prosecute any alcohol or drug abuse patient.[facility] Hospital[facility] the event this information is protected by the Federal Confidentiality of Alcohol and Drug Abuse Patient Records regulations: The Federal rules restrict any use of the information to criminally investigate or prosecute any alcohol or drug abuse patient.[facility] HospitalIn the event this information is protected by the Federal Confidentiality of Alcohol and Drug Abuse Patient Records regulations: The Federal rules restrict any use of the information to criminally investigate or prosecute any alcohol or drug abuse patient.[facility] HospitalIn the event this information is protected by the Federal Confidentiality of Alcohol and Drug Abuse Patient Records regulations: The Federal rules restrict any use of the information to criminally investigate or prosecute any alcohol or drug abuse patient.[facility] HospitalIn the event this information is protected by the Federal Confidentiality of Alcohol and Drug Abuse Patient Records regulations: The Federal rules restrict any use of the information to criminally investigate or prosecute any alcohol or drug abuse patient.[facility] HospitalIn the event this information is protected by the Federal Confidentiality of Alcohol and Drug Abuse Patient Records regulations: The Federal rules restrict any use of the information to criminally investigate or prosecute any alcohol or drug abuse patient.[facility] HospitalIn the event this information is protected by the Federal Confidentiality of Alcohol and Drug Abuse Patient Records regulations: The Federal rules restrict any use of the information to criminally investigate or prosecute any alcohol or drug abuse patient.[facility] ClinicIn the event this information is protected by the Federal Confidentiality of Alcohol and Drug Abuse Patient Records regulations: The Federal rules restrict any use of the information to criminally investigate or prosecute any alcohol or drug abuse patient.[facility] HospitalIn the event this information is protected by the Federal Confidentiality of Alcohol and Drug Abuse Patient Records regulations: The Federal rules restrict any use of the information to criminally investigate or prosecute any alcohol or drug abuse patient.[facility] HospitalIn the event this information is protected by the Federal Confidentiality of Alcohol and Drug Abuse Patient Records regulations: The Federal rules restrict any use of the information to criminally investigate or prosecute any alcohol or drug abuse patient.[facility] HospitalIn the event this information is protected by the Federal Confidentiality of Alcohol and Drug Abuse Patient Records regulations: The Federal rules restrict any use of the information to criminally investigate or prosecute any alcohol or drug abuse patient.[facility] HospitalIn the event this information is protected by the Federal Confidentiality of Alcohol and Drug Abuse Patient Records regulations: The Federal rules restrict any use of the information to criminally investigate or prosecute any alcohol or drug abuse patient.[facility] HospitalIn the event this information is protected by the Federal Confidentiality of Alcohol and Drug Abuse Patient Records regulations: The Federal rules restrict any use of the information to criminally investigate or prosecute any alcohol or drug abuse patient.[facility] HospitalIn the event this information is protected by the Federal Confidentiality of Alcohol and Drug Abuse Patient Records regulations: The Federal rules restrict any use of the information to criminally investigate or prosecute any alcohol or drug abuse patient.[facility] HospitalIn the event this information is protected by the Federal Confidentiality of Alcohol and Drug Abuse Patient Records regulations: The Federal rules restrict any use of the information to criminally investigate or prosecute any alcohol or drug abuse patient.[facility] HospitalIn the event this information is protected by the Federal Confidentiality of Alcohol and Drug Abuse Patient Records regulations: The Federal rules restrict any use of the information to criminally investigate or prosecute any alcohol or drug abuse patient.[facility] HospitalIn the event this information is protected by the Federal Confidentiality of Alcohol and Drug Abuse Patient Records regulations: The Federal rules restrict any use of the information to criminally investigate or prosecute any alcohol or drug abuse patient.[facility] HospitalIn the event this information is protected by the Federal Confidentiality of Alcohol and Drug Abuse Patient Records regulations: The Federal rules restrict any use of the information to criminally investigate or prosecute any alcohol or drug abuse patient.[facility] HospitalIn the event this information is protected by the Federal Confidentiality of Alcohol and Drug Abuse Patient Records regulations: The Federal rules restrict any use of the information to criminally investigate or prosecute any alcohol or drug abuse patient.[facility] HospitalIn the event this information is protected by the Federal Confidentiality of Alcohol and Drug Abuse Patient Records regulations: The Federal rules restrict any use of the information to criminally investigate or prosecute any alcohol or drug abuse patient.[facility] HospitalIn the event this information is protected by the Federal Confidentiality of Alcohol and Drug Abuse Patient Records regulations: The Federal rules restrict any use of the information to criminally investigate or prosecute any alcohol or drug abuse patient.[facility] HospitalIn the event this information is protected by the Federal Confidentiality of Alcohol and Drug Abuse Patient Records regulations: The Federal rules restrict any use of the information to criminally investigate or prosecute any alcohol or drug abuse patient.[facility] HospitalIn the event this information is protected by the Federal Confidentiality of Alcohol and Drug Abuse Patient Records regulations: The Federal rules restrict any use of the information to criminally investigate or prosecute any alcohol or drug abuse patient.[facility] HospitalIn the event this information is protected by the Federal Confidentiality of Alcohol and Drug Abuse Patient Records regulations: The Federal rules restrict any use of the information to criminally investigate or prosecute any alcohol or drug abuse patient.[facility] HospitalIn the event this information is protected by the Federal Confidentiality of Alcohol and Drug Abuse Patient Records regulations: The Federal rules restrict any use of the information to criminally investigate or prosecute any alcohol or drug abuse patient.[facility] HospitalIn the event this information is protected by the Federal Confidentiality of Alcohol and Drug Abuse Patient Records regulations: The Federal rules restrict any use of the information to criminally investigate or prosecute any alcohol or drug abuse patient.[facility] HospitalIn the event this information is protected by the Federal Confidentiality of Alcohol and Drug Abuse Patient Records regulations: The Federal rules restrict any use of the information to criminally investigate or prosecute any alcohol or drug abuse patient.[facility] HospitalIn the event this information is protected by the Federal Confidentiality of Alcohol and Drug Abuse Patient Records regulations: The Federal rules restrict any use of the information to criminally investigate or prosecute any alcohol or drug abuse patient.[facility] HospitalIn the event this information is protected by the Federal Confidentiality of Alcohol and Drug Abuse Patient Records regulations: The Federal rules restrict any use of the information to criminally investigate or prosecute any alcohol or drug abuse patient.[facility] HospitalIn the event this information is protected by the Federal Confidentiality of Alcohol and Drug Abuse Patient Records regulations: The Federal rules restrict any use of the information to criminally investigate or prosecute any alcohol or drug abuse patient.[facility] HospitalIn the event this information is protected by the Federal Confidentiality of Alcohol and Drug Abuse Patient Records regulations: The Federal rules restrict any use of the information to criminally investigate or prosecute any alcohol or drug abuse patient.[facility] HospitalIn the event this information is protected by the Federal Confidentiality of Alcohol and Drug Abuse Patient Records regulations: The Federal rules restrict any use of the information to criminally investigate or prosecute any alcohol or drug abuse patient.[facility] HospitalIn the event this information is protected by the Federal Confidentiality of Alcohol and Drug Abuse Patient Records regulations: The Federal rules restrict any use of the information to criminally investigate or prosecute any alcohol or drug abuse patient.[facility] FOR RECORDS PERTAINING TO PATIENTS WHO [...] BE BASED ON THE PRIMARY CLINICAL RECORDS. [facility] [employer] [facility] provides no warranty or guarantee of the accuracy or completeness of information in this document.
== END 2025-05-08 12:35 | disposition home or self-care (01) ==
LOC: LAB 12:35
PROVIDERS: PCP Nurse Practitioner Family; Visit Provider Physician Assistant
DX: Z79.899 Other long term (current) drug therapy (principal)
CPT/HCPCS: 36415; 86480

== ENCOUNTER 2025-06-19 08:49 | Outpatient (OUT) | payer OTHER, SELFPAY ==
--- OUTSIDE RECORDS SUMMARY | 2025-06-19 08:57 | XMS_ITS | CCD ---
Author Organization [facility] CliniSyar Care Team Providers Care Inspector Balance Bridge Name Role Phone KWAN ., LUKE Admitting Unavailable KWAN ., LUKE Attending Unavailable HAY ., DR ROBERTO Consulting Unavailable SHAMMO, YANDEL Primary Care Unavailable CON WIN Consulting Unavailable LOMBARDOLINDA JENKINS Consulting Unavailable ITKINALEXA Consulting Unavailable KWAN ., LUKE Consulting Unavailable SHAMMO, YANDEL Attending Unavailable SHAMMO, YANDEL Admitting Unavailable SHAMMO, YANDEL Consulting Unavailable SHAMMO, YANDEL Attending Unavailable SHAMMO, YANDEL Admitting Unavailable SHAMMO, YANDEL Primary Care Unavailable SHAMMO, YANDEL Consulting Unavailable Denys Gallego Unavailable SHAMMO, YANDEL TOMASA Primary Care Physician MD Denys Gallego Attending Provider Shammo, [facility] Yandel T Primary Care Provider [phone] Unavailable Primary Care Provider Unavailabl e MYRIAM, ADRIAN R Referring Unavailable NO PCP, NO PCP Primary Care Unavailable HÉCTOR AGUILAR Attending Unavailable MYRIAM, ADRIAN R Referring Unavailable NO PCP, NO PCP Primary Care Unavailable MYRIAM, ADRIAN R Referring Unavailable JEFF HÉCTOR Attending Unavailable MYRIAM, ADRIAN R Referring Unavailable Shammo, FASHION DESIGNER-BC Yandel T Primary Care Provider Myriam, Adrian Attending Provider MYRIAM, ADRIAN Attending Unavailable DOMINIC, KASSANDRA Attending Unavailable MYRIAM, ADRIAN Attending Unavailable DOMINIC, KASSANDRA Attending Unavailable MYRIAM, ADRIAN Attending Unavailable DOMINIC, KASSANDRA Attending Unavailable MYRIAM, ADRIAN Attending Unavailable DOMINIC, KASSANDRA Attending Unavailable MYRIAM, ADRIAN Attending Unavailable DOMINIC, KASSANDRA Attending Unavailable DOMINIC, KASSANDRA Attending Unavailable Myriam, DO Adrian Attending Provider ELISABETH BECKMAN Primary Care Physician Myriam DO, Adrian R Unavailable Myriam DO, Adrian R Unavailable MyriamKateyy Admitting Unavailable Shammo, Yandel T Primary Care Unavailable Adrian Kerr Attending Unavailable Felipe Quiñones Attending CarlotavaFelipe Jimenez Admitting Unavai lable Shammo, Yandel T Primary Care Unavailable Shammo, FASHION DESIGNER-BC Yandel T Primary Care Provider MD Felipe Quiñones Attending Provider Shammo FASHION DESIGNER-BC, Yandel T Primary Care Provider Felipe Quiñones MD Attending Provider Rohrbacher METAL FURNITURE GLAZIER, Elisabeth Sears Primary Care Provider Unavailable Primary Care Provider Unavailabl e No Pcp, No Pcp Primary Care Provider Unavailabl e Rohrbacher METAL FURNITURE GLAZIER, Elisabeth Sears Primary Care Provider SELF Referring Unavailable ROCIO JEFF Attending Unavailable OLIVA AJITA Referring Unavailable PRAVEENA, XIAOXI Attending Unavailable PRAVEENA, XIAOXI Referring Unavailable PRAVEENA, XIAOXI Attending Unavailable PRAVEENA, XIAOXI Referring Unavailable HELM, CHADWICK Attending Unavailable PRAVEENA, XIAOXI Referring Unavailable HELM, CHADWICK Attending Unavailable GORTY, RENETTA A Referring Unavailable HELM, CHADWICK Referring Unavailable ROHRBACHER, ELISABETH A Primary Care Unavailab le RAOUL, KHOA Referring Unavailable ROHRBACHER, ELISABETH A Primary Care Unavailab le MILES, KHOA Referring Unavailable PRAVEENA, XIAOXI Referring Unavailable GORTY, RENETTA A Attending Unavailable OLIVA, ROCIO Attending Unavailable OLIVA, AJITA Admitting Unavailable ROHRBACHER, ELISABETH A Primary Care Unavailab le MILES, KHOA Referring Unavailable REINALDO MENDOZA Attending Unavaila ble PRAVEENA, XIAOXI Referring Unavailable GORTY, RENETTA A Referring Unavailable ROHRBACHER, ELISABETH A Primary Care Unavailab JAIMIE Mercedes E Referring Unavailable MILES, KHOA Attending Unavailable ROHRBACHER, ELISABETH A Primary Care Unavailab le OLIVA, ROCIO Referring Unavailable MILES, KHOA Attending Unavailable ROHRBACHER, ELISABETH A Primary Care Unavailab le PRAVEENA, JJOXI Referring Unavailable SOUZAJERALD Attending Unavailable ROHRBACHER, ELISABETH A Primary Care Unavailab le PRAVEENA, XIAOXI Referring Unavailable PRAVEENA, AYSE Attending Unavailable ROHRBACHER, ELISABETH A Primary Care Unavailab le PRAVEENA, XIAOXI Referring Unavailable DELPRA, CHA Attending Unavailable ROHRBACHER, ELISABETH A Primary Care Unavailab le PRAVEENA, XIAOXI Referring Unavailable PRAVEENA, AYSE Attending Unavailable ROHRBACHER, ELISABETH A Primary Care Unavailab le OLIVA, AJITA Referring Unavailable MILES, KHOA Attending Unavailable PRAVEENA, JJOXI Referring Unavailable NADIALEAH Attending Unavailable ROHRBACHER, ELISABETH A Primary Care Unavailab le MILES, KHOA Referring Unavailable GORTY, RENETTA Sears Referring Unavailable BROWN, RAN Sears Attending Unavailable BROWN, RAN Sears Attending Unavailable BROWN, RAN Sears Attending Unavailable BROWN, RAN Sears Attending Unavailable BROWN, RAN Sears Attending Unavailable MYRIAMADRIAN Attending Unavailable HILLS, AFRICA D Attending Unavailable ROHRBACHER, ELISABETH Sears Referring Unavailab le HILLS, AFRICA D Referring Unavailable HILLS, AFRICA D Referring Unavailable HILLS, AFRICA D Attending Unavailable HILLS, AFRICA D Referring Unavailable HILLS, AFRICA D Referring Unavailable HILLS, AFRICA D Attending Unavailable HILLS, AFRICA D Referring Unavailable Rohrbacher Elisabeth GUTIERREZ Primary Care Provider Vestar Elisabeth GUTIERREZ Attending Provider [phone] Bárbara Nguyen Attending Unavailable Bárbara Nguyen Attending Unavailable Bárbara Nguyen Admitting Unavailable Allergies Allergy ClassificationReported Allergen(s)Allergy TypeDate of OnsetReaction(s) Facility (3 sources)PenicillinDrug Bjatomg39-53-3751JdvnjekKxs [facility] (20 sources)Penicillins; Translations: [penicillins]Allergy to substance 42-89-8823Ivljvlddvbs (disorder), Anaphylaxis, Unknown, Cough, Hives, Itching, Rash, Shortness of Breath, SwellingExecutive Urology of [facility] (20 sources)Penicillin GDrug Oicskmv83-65-8968JwplqrtQPGP Healthcare (20 sources)Topiramate; Translations: [TOPIRAMATE]Allergy to atxbxarzl54-07-3330 [facility] (20 sources)topiramateDrug Slqsqas00-94-2899RncgrwdinsdQmxMxsont Health System Medications Current Medications MedicationDrug Class(es)DatesSig (Normalized)Sig (Original)acetaminophen 500 mg oral tablet (20 sources)Start: 03-19-9490kwsp 2 tablets by mouth every six hours as needed acetaminophen (TYLENOL EXTRA STRENGTH) 500 mg tablet Take 2 tablets by mouth every 6 hours as needed for pain. 11/27/2024 Activetake 2 capsules by mouth every six hours as needed for painacetaminophen (Tylenol) 325 MG capsule Take 650 mg by mouth every 6 (six) hours if needed for mild pain ActiveamLODIPine 10 mg oral tablet (20 sources)Dihydropyridine Calcium Channel BlockerStart: 09-24-2022 End: 31-19-6077aagi 1 tablet by mouth once dailyamLODIPine 10 mg Tab 10 mg = 1 tab(s), Oral, Daily, Refills(s) 0 Start Date: 01/26/23 Status: Ordered Medication Dispense Status: Completed Total Allowed Fills: 1 Fills Dispensed: 0 deucravacitinib 6 MG Oral Tablet [Sotyktu] (1 source)Start: 60-51-7989ewxo 1 mg by mouth once dailySotyktu 6 mg oral tablet mg tab(s), Oral, Daily, Refills(s) 0 Start Date: 06/11/25 Status: Ordered M edication Dispense Status: Completed Total Allowed Fills: 1 Fills Dispensed: 0 doxycycline hyclate 100 mg oral capsule (6 sources)Tetracycline-class DrugStart: 12-05-2024 End: 62-70-9017ydwu 1 capsule by mouth twice dailydoxycycline hyclate (VIBRAMYCIN) 100 mg capsule Indications: Postoperative visit Take 1 capsule by m outh two times a day for 10 days. 20 capsule 12/05/2024 12/15/2024 ActiveStart: 11-27-2024 End: 77-54-4339qjrh 1 capsule by mouth every twelve hours in the morning, then take 6 capsules by mouth in the eveningdoxycycline hyclate (VIBRAMYCIN) 100 mg capsule Take 1 capsule by mouth every 12 hours at 6 am and 6 pm for 7 days. 14 capsule 11/27/2024 1:46 PM EDT 11/27/2024 12/04/2024 ActiveDULoxetine 30 mg delayed release oral capsule (20 sources)Serotonin and Norepinephrine Reuptake InhibitorStart: 25-11-1786mcrq 1 capsule by mouth once dailyduloxetine 30 mg oral delayed release capsule TAKE 1 CAPSULE BY MOUTH DAILY Start Date: 06/11/25 Status: Ordered Medication Dispense Status: Completed Total Allowed Fills: 1 Fills Dispensed: 0Start: 01-95-4242rtma 1 capsule by mouth once dailyDuloxetine 30 mg capsule,delayed release(DR/EC) Active 30 MG PO Daily December 17, 2024 12:00am Complies with drug therapyStart: 12-11-2024 End: 12-78-5391ljlr 1 capsule by mouth once dailyDuloxetine 40 mg capsule,delayed release(DR/EC) Discontinued 0 .ROUTE .COMPLEX December 11, 2024 7:47am December 17, 2024 3:12pm TAKE 1 CAPSULE BY MOUTH DAILYStart: 09-14-2024 End: 07-49-7866mdpe 1 capsule by mouth once dailyDuloxetine (Cymbalta) 30 mg capsule,delayed release(DR/EC) Discontinued 30 MG PO Daily 30 December 10, 2024 9:12am December 11, 2024 7:48amEnoxaparin 40 mg/0.4 mL syringe (1 source)Start: 76-38-9723mqucjc 40 mg by subcutaneous injection twice daily Enoxaparin 40 mg/0.4 mL syringe Active 40 MG SUBCUT Twice daily December 20, 2024 12:00amfluocinolone acetonide 0.1 mg/ml topical oil (2 sources)CorticosteroidFluocinolone Acetonide Scalp 0.01 % 1 application Externally Twice a day Activegabapentin 300 mg oral capsule (14 sources)Anti-epileptic AgentStart: 12-10-2024 End: 73-17-9029mnpe 1 capsule by mouth twice dailygabapentin (NEURONTIN) 300 mg capsule Indications: Acute postoperative pain Take 1 capsule by mouthtwo times a day for 30 days. 60 capsule 01/24/2025 02/23/2025 Activeibuprofen 800 mg oral tablet (20 sources)Nonsteroidal Anti-inflammatory DrugStart: 20-02-9628Nbyfwdqfb 800 mg tablet Active 800 MG PO every 6 to 8 hours as needed May 10, 2024 12:00am Complies with drug therapyStart: 03-13-2024 End: 22-21-0822ebkiorueo 800 MG tablet 03/13/2024 Activeiron carbonyl 15 mg chewable tablet (2 sources)Start: 17-74-0171Ausbuqsq Iron (Iron Chews Pediatric) 15 MG chewable tablet Chew 0 01/26/2023 ActiveIron Chews (2 sources)Start: 88-36-8562afmh 1 mg by mouth once dailyIron Chews mg, Oral, Daily, Refills(s) 0 Start Date: 01/26/23 Status: Orderedketoconazole 20 mg/ml medicated shampoo (1 source)Azole AntifungalStart: 44-89-5279pppfgtcwysdq Top 2% Shampoo wash scalp TUESDAY thru TUESDAY, lather and let sit 2-3 MINUTES then rinse Start Date: 06/11/25 Status: Ordered Medication Dispense Status: Completed Total Allowed Fills: 1 Fills Dispensed: 0levothyroxine sodium 0.025 mg oral tablet (20 sources)l-ThyroxineStart: 67-30-6079ptbb 1 tablet by mouth once daily levothyroxine 25 mcg (0.025 mg) Tab 25 mcg = 1 tab(s), Oral, Daily, Refills(s) 0 Start Date: 03/13/24 Status: Ordered Medication Dispense Status: Completed Total Allowed Fills: 1 Fills Dispensed: 0Start: 09-01-2023 End: 77-72-6400xhdz 1 tablet by mouth before mealtimelevothyroxine (Synthroid, Levoxyl) 25 MCG tablet Indications: Other specified hypothyroidism TAKE 1TABLET BY MOUTH IN THE MORNING BEFORE MEALS WITH the current dosage 30 tablet 3 11/21/2023 ActiveStart: 62-12-6597Edubyaxvi 137 MCG tablet Take 137.5 mcg by mouth in the morning. Take before meals. 0 03/09/2023 ActiveStart: 06-28-2023 take 1 capsule by mouth once dailylevothyroxine 137 mcg (0.137 mg) oral capsule 137 mcg = 1 cap(s), Oral, Daily, Refills(s) 0 Start Date: 01/26/23 Status: Ordered Medication Dispense Status: Completed Total Allowed Fills: 1 Fills Dispe nsed: 0Start: 42-16-4709sslg 1 tablet by mouth once dailyLevothyroxine (Synthroid) 137 mcg tablet Active 137 MCG PO Daily March 14, 2023 12:00am Complieswith drug therapyLevothyroxine Sodium Activemeclizine hydrochloride 25 mg oral tablet (17 sources)AntiemeticStart: 39-54-9537trgkygngi (Antivert) 25 MG tablet every 12 (twelve) hours 0 03/14/2023 ActiveStart: 03-14-2023 End: 59-19-7200kenz 1 tablet by mouth once daily as needed for dizziness Meclizine 25 mg Tablet Discontinued 25 MG PO Daily as needed for Dizziness March 14, 2023 12:00am February 28, 2024 8:19amStart: 14-15-2464zqzg 1 mg by mouth once dailymeclizine 25 mg oral tablet, chewable mg tab(s), Chewed, Daily, Refills(s) 0 Start Date: 01/26/23 Status: Orderedtake 1 tablet by mouth every twelve hoursMeclizine HCl 25 MG 1 tablet as needed Orally every 12 hrs Active melatonin 1 mg oral capsule (20 sources)Start: 98-15-0364Ppkbinawr 1 MG capsule Bedtime 0 03/14/2023 Active Start: 03-14-2023 End: 84-49-2485lpej 1 tablet by mouth at bedtimeMelatonin 12 mg Tablet Discontinued 12 MG PO Bedtime March 14, 2023 12:00am February 28, 2024 8:19am melatonin 1 mg chew Take by mouth. ActiveMelatonin 1 MG chewable tablet Chew 1 each in the morning. 0 Activemelatonin 1 mg tablet,chewable Chew and swallow. 0 ActivemetFORMIN hydrochloride 500 mg oral tablet (19 sources)BiguanideStart: 97-18-9226pfdf 1 tablet by mouth every twelve hours metFORMIN (GLUCOPHAGE) 500 mg tablet Take 1 tablet by mouth every 12 hours. 09/14/2024 ActiveStart: 09-14-2024 End: 35-60-6979cqgl 1 tablet by mouth twice dailyMetformin 500 mg tablet Discontinued 500 MG PO Twice daily 180 90 September 14, 2024 1:00am February 26, 2025 10:12ammethocarbamol 500 mg oral tablet (14 sources)Muscle RelaxantStart: 01-24-2025 End: 58-76-8885hqyg 1 tablet by mouth twice daily as neededmethocarbamol (ROBAXIN) 500 mg tablet Indications: Acute postoperative pain Take 1 tablet by mouth two times a day as needed. 60 tablet 01/24/2025 02/23/2025 ActiveStart: 12-05-2024 End: 60-47-4909iccz 1 tablet by mouth three times daily as neededmethocarbamol (ROBAXIN) 750 mg tablet Indications: Acute postoperative pain Take 1 tablet by mouth three times a day as needed for up to 10 days. 30 tablet 01/07/2025 01/17/2025 ActiveStart: 11-27-2024 End: 29-45-3074ubsw 1 tablet by mouth every eight hours as neededmethocarbamol (ROBAXIN) 500 mg tablet Take 1 tablet by mouth three times a day as needed (Muscle spasms) for up to 5 days. 15 tablet 11/27/2024 1:46 PM EDT 11/27/2024 12/02/2024 Dmxeya67 hr metoprolol succinate 100 mg extended release oral tablet (20 sources)beta-Adrenergic BlockerStart: 41-43-4434wdbq 1 tablet by mouth every twenty-four hours in the morningmetoprolol succinate XL (Toprol-XL) 100 MG 24 hr tablet Indications: Hypertension affecting in second trimester ([facility]) TAKE 1 TABLET BY MOUTH IN THE MORNING 30 tablet 11 09/04/2024 Active Start: 03-14-2023 End: 02-08-5128xdqv 4 tablets by mouth once dailyMetoprolol Succinate 100 mg tablet extended release 24 hr Discontinued 25 MG PO Daily March 14, 2023 12:00am February 28, 2024 8:19amStart: 03-14-2023 End: 42-56-0800zurz 25 mg by mouth once dailyMetoprolol Succinate Discontinued 25 MG PO Daily March 14, 2023 12:00am February 28, 2024 8:19amStart: 09-09-2022 take 1 tablet by mouth once dailymetoprolol 100 mg ER Tab 100 mg = 1 tab(s), Oral, Daily, Refills(s) 0 Start Date: 01/26/23 Status: Ordered Medication Dispense Status: Completed Total Allowed Fills: 1 Fills Dispensed: 0Start: 09-09-2022 End: 69-70-6778ueyrwtbovb succinate ER (TOPROL XL) 100 mg Take 100 mg by mouth. 09/09/2022 Activetake 1 capsule by mouth once dailyMetoprolol Succinate 100 MG 1 capsule Orally Once a day ActiveMulti Vitamin+ (2 sources)Start: 96-87-1321Hsxkn Vitamin+ Refill(s) 0 Start Date: 01/26/23 Status: OrderedMultiple Vitamin (Multi Vitamin Daily) tablet (2 sources)Start: 03-00-8401Pmpopkna Vitamin (Multi Vitamin Daily) tablet Refill(s) 0 0 01/26/2023 Activeondansetron 4 mg disintegrating oral tablet (20 sources)Serotonin-3 Receptor AntagonistStart: 25-25-5497davr 1 tablet by mouth every eight hours as needed for nausea and vomitingOndansetron 4 mg tablet,disintegrating Active 4 MG PO Q8H as needed for nausea and vomiting 30 05February 14, 2025 12:00am Complies with drug therapyStart: 03-14-2023 End: 35-89-2164Krummarohir 4 mg tablet,disintegrating Discontinued 4 MG PO As Directed as needed for Nausea 2022 12:00am February 28, 2024 8:19am Start: 03-14-2023 End: 94-10-4757npxvqgflhse orally disintegrating (ZOFRAN ODT) 4 mg disintegrating tablet 1 (one) time each day at the same time 03/14/2023 Active Start: 43-14-6758fqpt 1 mg by mouth every eight hoursZofran 4 mg Tab mg tab(s), Oral, q8hr, Refills(s) 0 Start Date: 01/26/23 Status: Orderedtake 1 tablet by mouth every twenty-four hoursOndansetron HCl 4 MG 1 tablet Orally Once a day ActiveoxyCODONE hydrochloride 5 mg oral tablet (9 sources)Opioid AgonistStart: 12-10-2024 End: 01-16-2828sthj 1 tablet by mouth every eight hours as needed for pain oxyCODONE IR (ROXICODONE) 5 mg immediate release tablet Indications: Acute postoperative pain Take 1 tablet by mouth every 8 hours as needed for pain for up to 7 days. 20 tablet 12/10/2024 5ActiveStart: 11-27-2024 End: 59-98-0561xwgm 1 tablet by mouth every six hours as needed for pain oxyCODONE IR (ROXICODONE) 5 mg immediate release tablet Indications: Acute postoperative pain Take 1 tablet by mouth every 6 hours as needed for pain for up to 7 days. 28 tablet 12/03/2024 12/10/2024Discontinued (Course of therapy completed)predniSONE 10 mg oral tablet (4 sources)Start: 07-10-2024 End: 44-38-2817biht 5 tablets by mouth once daily, then take 4 tablets by mouth once daily, then take 3 tablets bymouth once daily, then take 2 tablets by mouth once daily, then take 1 tablet by mouth once dailypredniSONE (Deltasone) 10 MG tablet Indications: Sinus tarsi [...] MG chewable tablet (2 sources) MV & Min w/FA-DHA ( Gummies) 0.18-25 MG chewable tablet as directed Orally 0 Activetriamcinolone acetonide 0.001 mg/mg topical ointment (1 source)CorticosteroidStart: 32-69-2293jhojj 1 dose topically twice daily triamcinolone 0.1% topical kit Topical, BID, Refill(s) 0 Start Date: 06/11/25 Status: Ordered Medication Dispense Status: Completed Total Allowed Fills: 1 Fills Dispensed: 0Unisom Sleep Gels (2 sources)Start: 15-87-0505xpgm 1 mg by mouth every six hoursUnisom Sleep Gels mg, Oral, q6hr, Refills(s) 0 Start Date: 01/26/23 Status: Fwdhzms24 hr venlafaxine 37.5 mg extended release oral capsule (18 sources)Serotonin and Norepinephrine Reuptake InhibitorStart: 08-15-2024 venlafaxine XR (Effexor XR) 37.5 MG 24 hr capsule 08/15/2024 ActiveStart: 08-15-2024 End: 36-82-5628ugzh 1 capsule by mouth once dailyVenlafaxine (Effexor Xr) 37.5 mg capsule,extended release 24hr Discontinued 37.5 MG PO Daily August 15, 2024 1:00am September 14, 2024 12:46pmvit B-comp w-Fe,Ca,FA<1mg (IRON- VITAMINS ORAL) (20 sources)vit B-comp w-Fe,Ca,FA Active Completed/Discontinued Medications MedicationDrug Class(es)DatesSig (Normalized)Sig (Original)acetaminophen 325 mg / oxyCODONE hydrochloride 5 mg oral tablet (19 sources)Opioid AgonistStart: 12-14-2023 End: 51-41-1271eeuy 1 tablet by mouth every six hoursoxyCODONE-acetaminophen (PERCOCET) 5-325 mg tablet Take 1 tablet by mouth q 6 HR. 12/14/2023 11/06/2024 DiscontinuedamLODIPine 10 mg / atorvastatin 10 mg oral tablet (16 sources)Dihydropyridine Calcium Channel Harsh, HMG-CoA Reductase Inhibitor End: 88-87-6042vfMYZWSpyn-Atorvastatin 10-10 mg per tablet 11/06/2024 Discontinuedaspirin 81 mg delayed release oral tablet (20 sources)Platelet Aggregation Inhibitor, Nonsteroidal Anti-inflammatory Drug Start: 03-05-2024 End: 75-77-8879Thyzzuu (Adult Low Dose Aspirin) 81 mg tablet,delayed release (DR/EC) Discontinued 81 MG PO .every other day May 10, 2024 10:51am August 15, 2024 12:02pmStart: 02-28-2024 End: 10-65-9459Auiuqxx (Adult Low Dose Aspirin) 81 mg tablet,delayed release (DR/EC) Discontinued 81 MG PO Daily February 28, 2024 12:00am May 10, 2024 10:52am24 hr buPROPion hydrochloride 300 mg extended release oral tablet (20 sources)AminoketoneStart: 05-24-2024 End: 19-62-4930ewqy 1 tablet by mouth once daily in the morningBupropion Hcl (Wellbutrin Xl) 300 mg tablet extended release 24 hr Discontinued 300 MG PO Every morning 90 90 June 19, 2024 11:20am December 20, 2024 11:19amStart: 02-28-2024 End: 61-02-3132adww 1 tablet by mouth once dailyBupropion Hcl 150 mg tablet extended release 24 hr Discontinued 150 MG PO Daily February 28, 2024 12:00am May 24, 2024 10:46amStart: 02-28-2024 End: 86-24-1288nott 1 tablet by mouth once dailyBupropion Hcl 150 mg tablet extended release 24 hr Discontinued 150 MG PO Daily February 28, 2024 12:00am May 24, 2024 10:46amStart: 09-14-2023 End: 59-52-8693rwvt 1 tablet by mouth every twenty-four hours in the morning buPROPion XL (Wellbutrin XL) 150 MG 24 hr tablet Indications: Anxiety with depression TAKE 1 TABLETBY MOUTH IN THE MORNING DO NOT CRUSH, CHEW, OR SPLIT 30 tablet 11 05/18/2024 ActivebusPIRone hydrochloride 10 mg oral tablet (20 sources)Start: 08-31-2022 End: 93-86-3302rylMFNoyv (BUSPAR) 10 mg tablet Take 10 mg by mouth. 08/31/2022 11/06/2024 Discontinuedchlorhexidine gluconate 1.2 mg/ml mouthwash (20 sources)Start: 09-28-2022 End: 36-60-7814Vqtdnuxtupjse Gluconate (PERIDEX) 0.12 % solution TAKE 15 ML IN MOUTH & SWISH FOR 30 SECONDS THEN SPIT OUT TWICE DAILY FOR 20 DAYS 09/28/2022 11/06/2024 DiscontinuedStart: 98-89-7462nxuhfvtenislk (PERIDEX) 0.12 % solution TAKE 15 ML IN MOUTH & SWISH FOR 30 SECONDS THEN SPIT OUT TWICE DAILY FOR 20 DAYS 0 09/28/2022 Activeclindamycin 300 mg oral capsule (16 sources)Lincosamide AntibacterialStart: 01-19-2024 End: 78-48-2782gpof 1 capsule by mouth four times daily at bedtimeclindamycin (CLEOCIN) 300 mg capsule TAKE 1 CAPSULE BY MOUTH FOUR TIMES DAILY (IN THE MORNING, at noon, IN THE EVENING, and BEFORE bedtime) FOR 10 DAYS 01/19/2024 11/06/2024 Discontinuedclobetasol propionate 0.5 mg/ml topical solution (1 source)CorticosteroidStart: 10-23-2078cgadysevtq Top 0.05% Kavya APPLY TO THE AFFECTED AREA (scalp) TWICE DAILY TUESDAY through TUESDAY; off the weekends; then repeat NEEDED Start Date: 06/11/25 Status: Ordered Medication Dispense Status:Completed Total Allowed Fills: 1 Fills Dispensed: 0diclofenac sodium 75 mg delayed release oral tablet (20 sources)Nonsteroidal Anti-inflammatory DrugStart: 03-28-2024 End: 19-91-7055uetm 1 tablet by mouth every twelve hoursdiclofenac, EC, (VOLTAREN) 75 mg EC tablet Take 1 tablet by mouth every 12 hours. 03/28/2024 11/06/2024 DiscontinuedStart: 03-14-2023 End: 30-33-1858bbhd 1 tablet by mouth twice dailyDiclofenac Sodium 75 mg tablet,delayed release (DR/EC) Discontinued 75 MG PO Twice daily March 14, 2023 12:00am February 28, 2024 8:19amStart: 86-83-3433jkqilmozed (Voltaren) 75 MG EC tablet every 12 (twelve) hours 0 02/21/2023 ActivediphenhydrAMINE hydrochloride 50 mg oral capsule (20 sources)Histamine-1 Receptor AntagonistStart: 01-26-2023 End: 40-89-0178umiy 1 capsule by mouth once daily at bedtimeDiphenhydramine Hcl 50 mg Capsule Discontinued 50 MG PO Daily at bedtime March 14, 2023 12:00am 2023 1:22pmdiphenhydramine HCl (UNISOM, DIPHENHYDRAMINE, ORAL) Take 50 mg by mouth. 0 ActiveDuloxetine 40 mg capsule,delayed release(DR/EC) (1 source)Start: 12-11-2024 End: 88-26-1036ifkp 1 capsule by mouth once dailyDuloxetine 40 mg capsule,delayed release(DR/EC) Discontinued 0 .ROUTE .COMPLEX 90 December 11, 2024 7:47am December 17, 2024 3:12pm TAKE 1 CAPSULE BY MOUTH DAILY0.4 ml enoxaparin sodium 100 mg/ml prefilled syringe (8 sources)Low Molecular Weight HeparinStart: 12-20-2024 End: 04-08-4788owspkl 40 mg by subcutaneous injection twice dailyEnoxaparin 40 mg/0.4 mL syringe Discontinued 40 MG SUBCUT Twice daily December 20, 2024 12:00am February 26, 2025 10:11amStart: 11-27-2024 End: 19-10-6567dajiqs 40 mg by subcutaneous injection every twelve hours enoxaparin (LOVENOX) 40 mg/0.4 mL Inject 0.4 mL subcutaneously every 12 hours. 24 mL 11/27/2024 1:46 PM EDT 11/27/2024 12/27/2024 Activeescitalopram 10 mg oral tablet (20 sources)Serotonin Reuptake InhibitorStart: 01-26-2023 End: 33-67-8949hdsn 1 tablet by mouth once dailyEscitalopram Oxalate 10 mg tablet Discontinued 10 MG PO Daily 90 February 28, 2024 1:45pm May 24, 2024 10:47amtake 1 tablet by mouth every twenty-four hoursEscitalopram Oxalate 5 MG 1 tablet Orally Once a day Activeferrous sulfate 134 mg oral tablet (20 sources)Start: 03-14-2023 End: 32-75-9365zlld 1 tablet by mouth once dailyFerrous Sulfate 27 mg iron Tablet Discontinued 27 MG PO Daily March 14, 2023 12:00am February 28, 2024 8:19am End: 76-40-8610ankkulv sulfate 325 mg (65 mg iron) EC tablet Take 325 mg by mouth. 11/06/2024 Discontinuedtake 1 tablet by mouth three times weeklyIron 325 (65 Fe) MG 1 tablet Orally Three times a Week Activefluocinonide 0.5 mg/ml topical solution (20 sources)CorticosteroidStart: 09-25-2022 End: 35-10-3361Ihirxkvcnfci 0.05 % solution Discontinued 1 APPLIC TOPICAL every other day 60 30 February 28, 2024 1:55pm June 11, 2024 12:02pmfluocinonide (LIDEX) 0.05 % external solution APPLY TO THE AFFECTED AREA(S) topically DAILY ActivehydrOXYzine pamoate 25 mg oral capsule (20 sources)AntihistamineStart: 10-14-2022 End: 56-10-1463chpo 1 capsule by mouth every twelve hours as neededhydrOXYzine pamoate (VISTARIL) 25 mg capsule Take 1 capsule by mouth two times a day as needed. 10/14/2022 11/06/2024 Discontinuedmeloxicam 15 mg oral tablet (14 sources)Nonsteroidal Anti-inflammatory DrugStart: 07-10-2024 End: 34-52-9870jznl 1 tablet by mouth once dailymeloxicam (MOBIC) 15 mg tablet Take 15 mg by mouth once daily. 07/10/2024 11/30/2024 Discontinued (Discontinued by Patient)omeprazole 40 mg delayed release oral capsule (20 sources)Proton Pump InhibitorStart: 08-28-2024 End: 55-02-4959fyku 1 capsule by mouth once dailyOmeprazole 40 mg capsule,delayed release(DR/EC) Discontinued 0 .ROUTE .COMPLEX 90 August 28, 2024 1:01pm February 26, 2025 10:12am TAKE 1 CAPSULE BY MOUTH DAILYStart: 01-26-2023 End: 71-48-5126jydg 1 capsule by mouth twice dailyOmeprazole 40 mg capsule,delayed release(DR/EC) Discontinued 40 MG PO Twice daily 60 July 24, 2024 12:10pm August 28, 2024 1:01pmStart: 01-26-2023 End: 25-12-3244whpk 1 capsule by mouth once dailyOmeprazole 40 mg capsule,delayed release(DR/EC) Discontinued 40 MG PO Daily March 14, 2023 12:00am June 11, 2024 12:02pmSemaglutide (4 sources)Start: 08-15-2024 End: 22-78-7323Niqdopfyyoy (Ozempic) 0.25 mg or 0.5 mg (2 mg/3 mL) pen injector Discontinued 0.25 MG SUBCUT every week 3 August 15, 2024 1:00am September 14, 2024 12:33pm for 4 weeksStart: 08-15-2024 End: 42-37-1889Jhqxzkeaxmq (Ozempic) 0.25 mg or 0.5 mg (2 mg/3 mL) pen injector Discontinued 0.25 MG SUBCUT every week August 15, 2024 12:00am September 14, 2024 11:33am for 4 weeksStart: 65-36-2781Trjupubkvcf (Ozempic) 0.25 mg or 0.5 mg (2 mg/3 mL) pen injector Active 0.25 MG SUBCUT every week 2024 12:00am for 4 weekssertraline 100 mg oral tablet (20 sources)Serotonin Reuptake InhibitorStart: 10-14-2022 End: 59-88-9012erxcipijji (ZOLOFT) 100 mg tablet Take 100 mg by mouth. 10/14/2022 11/06/2024 DiscontinuedtiZANidine 4 mg oral tablet (11 sources)Central alpha-2 Adrenergic AgonistStart: 03-14-2023 End: 79-87-2412Jmkmeshdzz 4 mg tablet Discontinued 4 MG PO As Directed as needed for Pain March 14, 2023 12:00am February 28, 2024 8:19amtraMADol hydrochloride 50 mg oral tablet (8 sources)Opioid AgonistStart: 12-20-2024 End: 66-88-1779smzr 1 tablet by mouth twice daily as needed for painTramadol 50 mg tablet Discontinued 50 MG PO Twice daily as needed for pain 10 December 20, 2024 12:00am February 26, 2025 10:09am Problems Active Problems Problem ClassificationProblemDateDocumented DateEpisodic/ChronicAbdominal hernia (20 sources)Diaphragmatic hernia without obstruction or gangrene; Translations: [Unspecified abdominal hernia without obstruction or gangrene]Onset: 03-13-2024 EpisodicAbdominal pain (5 sources)Abdominal pain; Translations: [Unspecified abdominal pain]12-20-2024 EpisodicAdjustment disorders (1 source)Adjustment disorder with anxiety; Translations: [Adjustment disorder with anxious mood]Onset: 88-66-1671UrzjtwjPfbrcychkgeeud/social admission (1 source)Patient encounter status; Translations: [Dietary counseling and surveillance]23-08-8935TttgrziiHrlajnd disorders (20 sources)Mixed anxiety and depressive disorder; Translations: [Other specified anxiety disorders]Onset: 632100-99-9710TbnmrniPwderjuo of urinary tract (7 sources)Ureteric stone; Translations: [Calculus of ureter]Onset: 01-26-2023 EpisodicCardiac and circulatory congenital anomalies (4 sources)Arteriovenous malformation of digestive system vessel; Translations: [Arteriovenous malformation]ChronicCardiac dysrhythmias (20 sources)Inappropriate sinus tachycardia; Translations: [Inappropriate sinus tachycardia]Onset: 358467-85-5632WduahccEqrtbvq dysrhythmias (19 sources)Tachycardia; Translations: [Tachycardia, unspecified]Onset: 450931-75-4343ObtkkloqYqxqgivxjdadw of surgical procedures or medical care (14 sources)Post-operative wound cellulitis; Translations: [Infection following a procedure, other surgical site, initial encounter]Onset: EpisodicDeficiency and other anemia (11 sources)Iron deficiency anemia, unspecified; Translations: [Iron deficiency anemia, unspecified]Onset: 81-87-3846UwhlsitzPnkfafqugm and other anemia (20 sources)Iron deficiency anemia; Translations: [Iron deficiency anemia, unspecified]Onset: 673726-81-1534OhtxzwxrDcocqtqz mellitus without complication (6 sources)Impaired fasting glycemia; Translations: [Impaired fasting glucose] 93-70-9945RsrburqsImwleumugwigap and diverticulitis (4 sources)Diverticular disease of colon; Translations: [Diverticulosis of intestine, part unspecified, without perforation or abscess without bleeding] ChronicEsophageal disorders (20 sources)Gastroesophageal reflux disease; Translations: [Gastro-esophageal reflux disease without esophagitis]Onset: 81-16-9611XbaxlhpUsgzzhdqp hypertension (20 sources)Hypertensive disorder; Translations: [Essential (primary) hypertension]Onset: 616111-31-9787KuvovobLdygi and electrolyte disorders (13 sources)Hypokalemia; Translations: [Hypokalemia]Onset: EpisodicGenitourinary symptoms and ill-defined conditions (2 sources)Unspecified symptoms and signs involving the genitourinary system; Translations: [Urinary symptoms ]Onset: 11-62-6038XpvvuwkdEdaikpra; including migraine (2 sources)Gfuiibkn25-00-9407AeeqpniLkljaamcgbbx complicating ; childbirth and the puerperium (12 sources)Pre-existing essential hypertension complicating , second trimester; Translations: [Unspecified pre-existing hypertension complicating , unspecified trimester]Onset: 102958-52-8125ScerucaKlqjilvhwnlmv and screening for infectious disease (1 source)Encounter for screening for human immunodeficiency virus [HIV]; Translations: [ENCOUNTER FOR SCREENING FOR HIV]Onset: 77-47-4341Ykhhkrni Miscellaneous mental health disorders (1 source)Psychological and behavioral factors associated with disorders or diseases classified elsewhere; Translations: [Psychological factors affecting medical condition]Onset: 49-05-1947RbvqyzlSlsw disorders (20 sources)Depressive disorder; Translations: [Depression]93-39-7785YewssjiMjgz wounds of head; neck; and trunk (2 sources)Open wound of abdomen; Translations: [Unspecified open wound of abdominal wall, unspecified quadrant without penetration into peritoneal cavity, initial encounter]76-18-5909DhyarpsjLgsfg acquired deformities (1 source)Contracture of joint of left ankle; Translations: [Contracture, left ankle]82-04-6731FudugqhChywr aftercare (3 sources)Postoperative visit; Translations: [Encounter for other specified surgical aftercare]86-88-6060CmrqhlamGhdui aftercare (2 sources)Wound ; Translations: [Encounter for other specified surgical aftercare]78-30-6084ZjnimxgcTzavt aftercare (2 sources)Encounter for other specified surgical aftercare; Translations: [Encounter for postoperative wound check]Onset: 75-99-3670FwobyccuHqwaw complications of (2 sources)Obesity complicating , unspecified trimester; Translations: [Obesity complicating , unspecified trimester]Onset: 49-60-1038Lfnuhhh Other complications of (1 source)Supervision of elderly multigravida, second trimester; Translations: [Supervision of elderly multigravida, second trimester]Onset: 20-78-4704Kjaersnk Other complications of (1 source)Endocrine, nutritional and metabolic diseases complicating , unspecified trimester; Translations: [Endocrine, nutritional and metabolic diseases complicating , unspecified trimester]Onset: 49-05-1812Qahezmdt Other complications of (2 sources)Malformation of placenta, unspecified, unspecified trimester; Translations: [Malformation of placenta, unspecified, unspecified trimester] Onset: 45-67-5700WdmlsxjtZcjqt connective tissue disease (4 sources)Pain of right lower leg; Translations: [Pain in right lower leg] 46-16-3049OsxycbndQmbmq connective tissue disease (2 sources)Pain of right calf; Translations: [Pain in right lower leg]06-20-2024 EpisodicOther connective tissue disease (2 sources)Tendinitis of right posterior tibial tendon; Translations: [Posterior tibial tendinitis, right leg]01-43-4306MgkzwpddQluhg connective tissue disease (7 sources)Disorder of musculoskeletal system; Translations: [Other specified disorders of synovium, right ankle and foot]75-28-5210ZeqnmjuxGtysm endocrine disorders (2 sources)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; Translations: [Hypopituitarism]28-88-2424LeusfabRujrq gastrointestinal disorders (1 source)Diarrhea, unspecifiedEpisodicOther gastrointestinal disorders (3 sources)History of bariatric surgical procedure; Translations: [Bariatric surgery status]72-95-4815AzutruwbGmycp gastrointestinal disorders (3 sources)History of bypass of stomach; Translations: [Bariatric surgery status]17-40-6356VykhsxrtVbwsd gastrointestinal disorders (3 sources)Bariatric surgery status; Translations: [Bariatric surgery status] Onset: 302387-64-0051JehnywffIiecd gastrointestinal disorders (2 sources)Personal history of other diseases of the digestive system; Translations: [S/P hernia repair]Onset: 73-52-6369VhnscsurBgckl inflammatory condition of skin (17 sources)Psoriatic arthritis; Translations: [Arthropathic psoriasis, unspecified]Onset: 326297-32-0723ZjjpgmoEjfff inflammatory condition of skin (1 source)Arthropathic psoriasis, unspecified; Translations: [Psoriatic arthritis (HCC)]Onset: 27-52-5995MzzltwgQrojj injuries and conditions due to external causes (6 sources)Injury of right ankle; Translations: [Unspecified injury of right ankle, initial encounter]74-35-5089IdwuwpvqKorzk injuries and conditions due to external causes (3 sources)Unspecified injury of right ankle, initial encounter; Translations: [Knee, leg, ankle, and foot injury]51-44-4571VakqoknaAioxu lower respiratory disease (2 sources)Snoring; Translations: [Snoring]71-38-3260NqkxwiraUstde nervous system disorders (2 sources)Poor concentration; Translations: [Attention and concentration deficit]94-55-2398HqyueptXhlim nervous system disorders (2 sources)Disturbance of attention; Translations: [Attention and concentration deficit]98-05-7420RqqefxbWahyz nervous system disorders (17 sources)Acute postoperative pain; Translations: [Other acute postprocedural pain]Onset: 378317-40-1110ThdylxmnRvnuk nervous system disorders (1 source)Other acute postprocedural pain; Translations: [Acute postoperative pain]Onset: 68-76-6058MatqideoEjmjv non-traumatic joint disorders (6 sources)Ankle pain; Translations: [Pain in right ankle and joints of right foot]47-74-5106ZcfbptieUsfkt non-traumatic joint disorders (3 sources)Pain in right ankle and joints of right foot; Translations: [Pain in joint, ankle and foot]31-67-9456UkffrmzpHcxcc non-traumatic joint disorders (4 sources)Instability of joint of right ankle; Translations: [Other instability, right ankle]67-72-3989EjnknrjzOzkul non-traumatic joint disorders (11 sources)Sinus tarsi syndrome of right ankle; Translations: [Pain in right ankle and joints of right foot]38-65-7031MsnfbnbcBgnfo nutritional; endocrine; and metabolic disorders (10 sources)Morbid obesity; Translations: [Morbid (severe) obesity due to excess calories]Onset: 08-17-5615OzxvqfeRxzqu nutritional; endocrine; and metabolic disorders (20 sources)Body mass index 40+ - severely obese; Translations: [Body mass index (BMI) 40.0-44.9, adult]Onset: 83-33-3182YbsvskwIcelp nutritional; endocrine; and metabolic disorders (2 sources)Obese class TZS88-16-2901PireokbTtrma nutritional; endocrine; and metabolic disorders (6 sources)Morbid (severe) obesity due to excess calories; Translations: [Morbid obesity]Onset: 951423-31-9719PvxonoqLcrhm nutritional; endocrine; and metabolic disorders (17 sources)Insulin resistance; Translations: [Insulin resistance]Onset: 204321-16-1920KuzhbkpIzlkn nutritional; endocrine; and metabolic disorders (17 sources)Severe obesity; Translations: [Class 3 severe obesity without serious comorbidity with body mass index (BMI) of 40.0 to 44.9 in adult, unspecified obesity type (HCC)]Onset: 460918-70-3442AybaambWdcxi nutritional; endocrine; and metabolic disorders (13 sources)Hypophosphatemia; Translations: [Other disorders of phosphorus metabolism]Onset: 952863-39-0129MrhwqnfOlvfr nutritional; endocrine; and metabolic disorders (2 sources)Body mass index (BMI) 40.0-44.9, adult; Translations: [Class 3 severe obesity without serious comorbidity with body mass index (BMI) of 40.0 to 44.9 in adult, unspecified obesity type (HCC)]Onset: 30-38-6584FqptntiMrjui skin disorders (9 sources)Disorder of scalp; Translations: [Other skin changes]02-28-2024 EpisodicOther skin disorders (4 sources)Other skin changes; Translations: [Keratoderma, acquired]02-28-2024 EpisodicOther skin disorders (3 sources)Eruption; Translations: [Rash and other nonspecific skin eruption] EpisodicPrevious (2 sources)Maternal care for unspecified type scar from previous delivery; Translations: [Maternal care for unspecified type scar from previous delivery]Onset: 60-72-3273OqyzrzggGprvfybn codes; unclassified (1 source)Tobacco user; Translations: [Tobacco use]Onset: 25-43-8120Ywrdvsyy Residual codes; unclassified (2 sources)Nicotine-filled electronic cigarette mkno63-76-9515QkwgqbisGlktvpwa codes; unclassified (1 source)History of sleeve gastrectomy; Translations: [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]]29-04-6735GpnjrtitIngubdfg codes; unclassified (19 sources)History of hernia repair; Translations: [Other specified postprocedural states]Onset: 207786-00-4451UjmmgeonWbwwjaqr codes; unclassified (2 sources)Other specified postprocedural states; Translations: [S/P hernia repair]Onset: 73-01-1851GyycusmyDscujii and strains (2 sources)Sprain of right ankle; Translations: [Sprain of unspecified ligament of right ankle, sequela]84-72-7765ZsztupvjRrxhsiilw-related disorders (2 sources)Nicotine dependence, unspecified, in remission; Translations: [Personal history of tobacco use]Onset: 290059-78-0587YdgesmrFapjlnk disorders (20 sources)Hypothyroidism, unspecified; Translations: [Hypothyroidism]Onset: 435843-56-8767RbaubyqJuqjspwndjig (20 sources)OB RemindersOnset: 383334-05-6745Bbrocgoraoet (1 source)Advanced Maternal AgeOnset: 22-97-7231Msekjtgjbozi (1 source)Chronic HypertensionOnset: 16-49-4415Owyzsgwkisfr (3 sources)Preprocedural examination qbtv22-56-3988Nixrihpowggn (3 sources)Bariatric Surgery Care CompanionOnset: Unclassified (1 source)NO FMKA74-02-2097Zddpcpatrjqe (1 source)Insulin resistance; Translations: [Insulin resistance]Onset: 30-12-3281Hopwyhhifunf (1 source)Class 3 severe obesity without serious comorbidity with body mass index (BMI) of 40.0 to 44.9 in adult, unspecified obesity type (HCC); Translations: [Class 3 severe obesity without serious comorbidity with body mass index (BMI) of 40.0 to 44.9 in adult, unspecified obesity type (HCC)]Onset: 85-28-2714Acuwgtahtndv (1 source)R21 - Rash and other nonspecific skin eruptionUnclassified (1 source)R41.840 - Attention and concentration deficit,F33.2 - Major depressive disorder, recurrent severe without psychotic features Past or Other Problems Problem ClassificationProblemDateDocumented DateEpisodic/ChronicDeficiency and other anemia (1 source)Other iron deficiency anemias; Translations: [Other iron deficiency anemia]Onset: 17-95-4999HtdnxpvgScdtfvi and fatigue (3 sources)Fatigue; Translations: [Other fatigue]Onset: EpisodicOther complications of (1 source)Multigravida of advanced maternal age; Translations: [Supervision of elderly multigravida, second trimester]05-35-5949AispfbqdIsmdk complications of (1 source)Hypothyroidism in ; Translations: [Endocrine, nutritional and metabolic diseases complicating , unspecified trimester]09-22-2023 EpisodicOther lower respiratory disease (1 source)Snoring; Translations: [Snoring]Onset: 28-13-2283DitxlezvHxjud and delivery including normal (20 sources)Second trimester ; Translations: [Encounter for supervision of normal , unspecified, second trimester]Onset: 08-18-2023 Resolved: 422870-39-6365JmkfwyjrMtzyv screening for suspected conditions (not mental disorders or infectious disease) (20 sources)Encounter for screening for cardiovascular disorders; Translations: [Encounter for screening for nutritional disorder]Onset: EpisodicResidual codes; unclassified (1 source)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]; Translations: [ACQUIRED ABSENCE OF STOMACH]Onset: 54-17-2784MpciyolpUgaqlikmbsjp (1 source)History of hernia cffjyv24-62-9274Oblirwkjkfuq (1 source)Flank pain, bilateralOnset: 06-11-2025 Results Test NameValueInterpretationReference RangeFacilityUrology Office/Clinic Noteon 78-12-8791Pmplrfv Office/Clinic NoteUrology Office/Clinic Note Chief Complaint frequency, urgency HPI Staff 39 year old female frequency, urgency, foul smell to urine Patient denies gross hematuria. Denies any flank or abdomen pain. does have a little dysuria, urgency, frequency, leakage shes afraid of kidney stones coming back History of Present Illness I have reviewed and verified the staff HPI to be accurate for this encounter. Review of Systems PHQ Score Initial Depression Screen Score: 0 SCORE no fever, chills, malaise, myalgia. no abdominal pain, nausea, vomiting. Physical Exam Vitals & Measurements HR: 75(Peripheral) BP: 133/85 HT: 180 cm HT: 71 in WT: 123.5 kg WT: 272.271 lb BMI: 38.12 General: Well developed, well nourished, in no acute distress. Assessment/Plan KML pt BBSQ 19 1. UTI symptoms (R39.9: Unspecified symptoms and signs involving the genitourinary system) UA today w/ trace leuks only Pt has c/o of dysuria, urinary urgency, frequency, odorous urine and bilateral flank pain (R>L) x 3 weeks. She is concerned for bladder infection versus passing a kidney stone. Denies hx of UTIs or gross hematuria. Reviewed UA w/ pt, not highly suspicious for infection. Offered to send urine forculture to evaluate, which she is agreeable to. Will treat with antibiotics if infection present. She is okay with holding off on antibiotics until culture finalized. All questions answered. Increase water intake, avoid bladder irritants. ER for fever, chills, NV, severe flank pain, inability to urinate. -Send urine for culture & tx if infection present -See #2 -High water intake -ER precautions above Ordered: Urine Culture Urnls Dip Stick Auto w/o Microscopy POC 13237 2. Bilateral flank pain (R10.A3: Flank pain, bilateral) Reports bilateral flank pain R>L x 3 weeks, along with UTI sx. She is concerned that she may be passing another kidney stones. Denies stone events since last visit or gross hematuria. She denies recent upper tract imaging. Offered to obtain YAMILETH/KUB to further evaluate pain. She is agreeable. Pt states if kidney stone(s) are noted on imaging, then she would like f/up visit to discuss definitivestone treatment for stones. All questions answered. -Obtain YAMILETH & KUB at [facility], call pt w/ results -If renal stones noted on imaging, then pt will need f/up visit to discuss surgical intervention for stones (pt prefers treatment rather than continued surveillance) -If no stones noted on imaging, then okay to f/up PRN if pt wishes -Pt knows to notify our office for gross hematuria 3. History of kidney stones (Z87.442: Personal history of urinary calculi) Hx of gastric bypass in 2016 in [place]. Has had diarrhea since she had her baby. Pt is currentlyin touch with a GI doctor. No family hx of kidney stones CT 12/27/22 - Punctate 2 mm Rt UVJ calculus w/ mild Rt hydronephrosis s/p IV Demerol, IV Toradol, and IV Dilaudid for pain, was admitted due to her intractable pain Pt passed stone on own. Brought to last OV. Stone analysis 01/26/23 - CaOx Di - 30%, Saline 70% Denies gross hematuria or stone events since last visit. Drinking 64 oz of water daily. Discussed generalized stone prevention. Pt encouraged to increase fluid intake so that she producing 2.5L of urine daily. Add 1/4 cup of lemon juice to water throughout the day or can also drink sugar free lemonade or clear soda. Avoid dark tomy. Restrict sodium intake. Restrict animal protein. -See #2 -90oz of water daily, add lemon/[place] -Moderate animal protein, increase fruits and vegetables -Limit salt intake Ordered: Urine Culture Urnls Dip Stick Auto w/o Microscopy POC 58980 Follow-up With When Contact Information Bárbara Nguyen PA-C, URL Additional Instructions: F/up pending results Patient Education Kidney Stones, Nwjs-fa-Bihe Flank Pain, Adult Urinary Tract Infection, Adult Problem List/Past Medical History Ongoing Arteriovenous malformation Bilateral flank pain BMI 40.0-44.9, adult Class 3 obesity Diverticular disease of colon GERD (gastroesophageal reflux disease) Hiatal hernia History of kidney stones History of nephrolithiasis Hypertensive disorder Hypothyroidism Iron deficiency anemia Migraine Mixed anxiety and depressive disorder Tachycardia UTI symptoms Vapes nicotine containing substance Ventral incisional hernia Historical No qualifying data Procedure/Surgical History Appendectomy (08/01/2016), Gastric sleeve (08/01/2016), Cholecystectomy (08/01/2005), section, section, section, Meniscal repair. Medications amLODIPine 10 mg Tab, 10 mg= 1 tab(s), Oral, Daily clobetasol Top 0.05% Kavya duloxetine 30 mg oral delayed release capsule ketoconazole Top 2% Shampoo levothyroxine 137 mcg (0.137 mg) oral capsule, 137 mcg= 1 cap(s), Oral, Daily levothyroxine 25 mcg (0.025 mg) Tab, 25 mcg= 1 tab(s), Oral, Daily metoprolol 100 mg ER Tab, 100 mg= 1 tab(s), Oral, Daily Sotyktu 6 mg oral tab (more content not included)...[facility] NorthComment on above:Result Comment: Electronically Signed By: Wendy MCNAMARA, Bárbara\.br\Date and Time Signed: 06/11/25 15:41 ESTCNPNon 08-49-1928ZXWJ Telephone (GENHARLAN) TIFFANI ALLISON ([id number]) 1985 F Date Time Provider Department 01/25/25 KHOA SILVEIRA During your visit today, we recorded the following information about you: Khoa Silveira, BRENDA.AUT[employer]ATIC STE[employer] ADJUSTER 01/25/2025 11:30 AM Signed Spoke with Tiffani [...] for further discussion/interventions for abdominal (neuropathic) pain. Khoa Silveira, MSN, HEALTH CARE SANITARY TECHNICIAN, FASHION DESIGNER-C January 25, 2025 11:30 AM Allergies As of Date: 01/25/2025 Noted Allergy Reaction PENICILLINS 10/26/2022 10 - Anaphylaxis 3 - Cough 4 - Hives 9 - Itching 2 - Rash 12 - Shortness of Breath 7 - Swelling 16 - Unknown Comments: Other Reaction(s): throat swelling and hives TOPIRAMATE 01/04/2023 5 - Intolerance Comments: Other Reaction(s): seizures Date Reviewed: 12/28/2024 Reviewed by: Moorland, Shireen M - Fully Assessed Reason for Visit: Patient [...] of surgical wound [T81*11/27/2024 Encounter Status:Closed by KHOA SILVEIRA on 01/25/25[facility] 70-34-1624NKGKGtyufq Visit (GENALIYAHN) TIFFANI ALLISON ([id number]) 1985 F Date Time Provider Department 12/28/24 11:00 AM KHOA SILVEIRA During your visit today, we recorded the following information about you: Temperature Pulse Blood pressure Weight 98.1 degrees 74/minute 116/73 131.5 kg Height Last Period 1.778 m 12/24/24 Shireen Morrissey 12/28/2024 11:27 AM Signed What is the reason for your visit today? Post op Who is your referring physician? Khoa Silveira Are you having poor oral intake? NO Have you had unintentional weight loss of 15 lbs/7 Kg in the last 3-6 months? NO Bowels: regular Wound: clean AND dry Temperature: No Drains: No Khoa Silveira APRN.AUT[employer] AD[employer]ER 12/28/2024 11:27 AM Signed [facility] Clinic Date: December 28, 2024 Tiffani Allison 39 year old female CHIEF COMPLAINT: Patient presents for a wound check. HPI: Here for wound check after open bilateral TAR, incisional hernia repair and implantation of mesh on 11/23/[address] Jeff. Patient also underwent with Ayse Grissom M.D. ([place]), a laparoscopic paraesophageal hernia repair and conversion to Maria Antonia-en-Y gastric bypass. Last seen in clinic on [...] office if any concerns with healing wound Khoa Silveira, MSN, [employer]ER December 28, 2024 Referring Provider: ROCIO JEFF [[id number]] Allergies As of Date: 12/28/2024 Noted Allergy Reaction PENICILLINS 10/26/2022 10 - Anaphylaxis 3 - Cough 4 - Hives 9 - Itching 2 - Rash 12 - Shortness of Breath 7 - Swelling 16 - Unknown Comments: Other Reaction(s): throat swelling and hives TOPIRAMATE (more content not included)...NormalSouthern [facility] Medical CenterOV [id number] Visit (GENMary) TIFFANI ALLISON ([id number]) 1985 F Date Time Provider Department 12/14/24 11:00 AM KHOA SILVEIRA During your visit today, we recorded the following information about you: Temperature Pulse Blood pressure Weight 96.9 degrees 85/minute 136/86 132 kg Height 1.778 m Russell SudarshanRIP 12/14/2024 3:25 PM Signed What is the reason for your visit today? Post op Who is your referring physician? Dr. Silveira Are you having poor oral intake? NO Have you had unintentional weight loss of 15 lbs/7 Kg in the last 3-6 months? NO Bowels: constipated Wound: drainage pink/ clear Temperature: No Drains: No Khoa Silveira APRN.CNP 12/14/2024 3:25 PM Signed [facility] Clinic Date: December 14, 2024 Tiffani Allison 39 year old female CHIEF COMPLAINT: Patient presents for a wound check. HPI: Here for wound check after open bilateral TAR, incisional hernia repair and implantation of mesh on 11/23/[address] Jeff. Patient also underwent with Ayse Grissom M.D. ([place]), a laparoscopic paraesophageal hernia repair and conversion to Maria Antonia-en-Y gastric bypass. Last seen in clinic on [...] reduced from 6.4 cm (more content not included)...Normal [facility] CenterPNon 16-31-1877CNKMGrzjwglna (JENNIFERI) TIFFANI ALLISON ([id number]) 1985 F Date Time Provider Department 12/06/24 KRISTI WATTS During your visit today, we recorded the following information about you: Kristi Watts RN 12/06/2024 2:50 PM Addendum BMI SPECIALTY CARE COORDINATION POST-OP TELEPHONE CALL [...] Reminded patient of how to reach [facility] or their surgeons office. Patient reminded to seek medical attention if they develop chest pain, a sudden onset of shortness of breath or persistent pain in the calf of their legs - BEST TO ALWAYS present to [facility] hospital where you had your surgery Patient verbalized understanding of all advice and instructions given. Kristi Watts RN [facility] SPECIALTY CARE COORDINATION TELEPHONE ENCOUNTER 2nd attempt [...] [T81*11/27/2024 Encounter Status:Closed by KRISTI WATTS on 12/06/24[facility] 11-19-0314JMKKSaxhgh Visit [facility] TIFF[facility] ALLISON ([id number]) 1985 F Date Time Provider Department 12/05/24 11:00 AM KHOA SILVEIRA During your visit today, we recorded [...] Wound: drainage blood Temperature: No Drains: Yes Khoa Lux APRN.[employer] 12/05/2024 1:10 PM Signed [facility] Clinic Date: December 05, 2024 Tiffani Allison 39 year old female CHIEF COMPLAINT: Patient presents for follow up from surgery. HPI: Here for follow up after open bilateral TAR, incisional hernia repair and implantation of mesh on 11/23/[address] Jeff. Patient also underwent with Ayse Grissom M.D. ([place]), a laparoscopic paraesophageal hernia repair and conversion to Maria Antonia-en-Y gastric bypass. She reports significant pain and [...] muscle spasms. No fev (more content not included)...NormalSelect Medical Specialty Hospital - ColumbusCNPNon 08-43-4555BBNAEcmyhiaal (BMI) TIFFANI ALLISON ([id number]) 1985 F Date Time Provider Department 12/05/24 KRISTI WATTS During your visit today, we recorded the following information about you: Kristi Watts RN 12/05/2024 11:18 AM Signed BMI SPECIALTY CARE COORDINATION TELEPHONE ENCOUNTER Post op [...] Assessed Reason for Visit: Post Op Call [[phone]] Prescriptions as of 12/05/2024 - methocarbamol (ROBAXIN) [...] [T81*11/27/2024 Encounter Status:Closed by KRISTI WATTS on 12/05/24[facility] metabolic 2000 panelon 40-24-9187Anfti gap [Moles/Vol]11 mmol/L Normal8-15[facility] on above:Order Comment: Specimen Type: BLOOD SPECIMEN [facility] Address: [address] [place], [place] [address]Performed By: #### 84653-2, 27701-29, #### [facility] CLIA [id number] [address] [place] [address] [place] AMERICACalcium [Mass/Vol]8.6 mg/dL Normal8.5-10.2CPremier Health on above:Order Comment: Specimen Type: BLOOD SPECIMEN [facility] Address: [address] [place], [place] [address]Performed By: #### 65397-8, 27701-29, #### [facility] CLIA [id number] [address] [place] [address] [place] AMERICAChloride [Moles/Vol]101 mmol/GQuyand30-336QyeeabylqMercy Health Anderson Hospital on above:Order Comment: Specimen Type: BLOOD SPECIMEN [facility] Address: [address] [place], [place] [address]Performed By: #### 28789-7, 2776-08, #### [facility] CLIA [id number] [address] [place] [address] [place] AMERICACO2 [Moles/Vol]28 mmol/L Tpyici00-06PzhegcxbcMercy Health Anderson Hospital on above:Order Comment: Specimen Type: BLOOD SPECIMEN [facility] Address: [address] [place], [place] [address]Performed By: #### 15268-7, 2776-08, #### [facility] CLIA [id number] [address] [place] [address] [place] AMERICACreatinine [Mass/Vol]0.63 mg/dLNormal0.58-0.96[facility] on above:Order Comment: Specimen Type: BLOOD SPECIMEN [facility] Address: [address] [place], [place] [address]Performed By: #### 38675-6, 2776-08, #### [facility] CLIA [id number] [address] [place] [address] [place] AMERICACreatinine and Glomerular filtration rate.predicted panel (S/P/Bld)117 mL/min/1.73m???Normal>=60[facility] on above:Order Comment: Specimen Type: BLOOD SPECIMEN [facility] Address: [address] [place], [place] [address]Result Comment: Estimated Glomerular Filtration Rate (eGFR) is calculated using the 2020 CKD-EPI cre atinine equation. This equation utilizes serum creatinine, sex, and age as parameters. The creatinine assay has traceable calibration to isotope dilution- mass spectrometry. Refer to KDIGO guidelines for clinical interpretation. In patients with unstable renal function, e.g. those with acute kidney injury, the eGFR may not accurately reflect actual GFR.Performed By: #### 56105-9, 2776-08, #### [facility] CLIA [id number] [address] [place] [address] [place] AMERICAGlucose [Mass/Vol]85 mg/dL Rtkgpb90-97LqzjnctesMercy Health Anderson Hospital on above:Order Comment: Specimen Type: BLOOD SPECIMEN [facility] Address: [address] [place] [address]Dimcte Comment: The [place] Diabetes Association (ADA) provides guidance for cutoff [...] Standards of Medical Care in Diabetes 2016, [place] [employer]. Diabetes Care. 2016.39(Suppl 1).Performed By: #### 18252-5, 2776-08, #### [facility] CLIA [id number] [address] [place] [address] [place] AMERICAPotassium [Moles/Vol]3.4 mmol/LLow3.7-5.1CPremier Health on above:Order Comment: Specimen Type: BLOOD SPECIMEN [facility] Address: [address] [place], [place] [address]Performed By: #### 78979-1, 2776-08, #### [facility] CLIA [id number] [address] [place] [address] [place] AMERICASodium [Moles/Vol]140 mmol/L Nitnph984-770SdaqssnkfMercy Health Anderson Hospital on above:Order Comment: Specimen Type: BLOOD SPECIMEN [facility] Address: [address] [place], [place] [address]Performed By: #### 27078-8, 2776-08, #### [facility] CLIA [id number] [address] [place] [address] [place] AMERICAUrea nitrogen [Mass/Vol]6 mg/dLLow7-21[facility] on above:Order Comment: Specimen Type: BLOOD SPECIMEN [facility] Address: [address] [place], [place] [address]Performed By: #### 26147-7, 2777-1, 38167-7 #### [facility] CLIA [id number] [address] [place] [address] [place] AMERICACB W Auto Differential panel (Bld)on 75-59-3800Arqetfpwf (Bld) [#/Vol]10*3/uLNormal<0.11CPremier Health on above:Order Comment: Specimen Type: BLOOD SPECIMENOrdering Facility: [facility] Address:[address] [place], [place] [address]Performed By: #### 93987-4 ####[facility] LABCLIA [id number] [place] [address] [place] AMERICABasophils/100 WBC (Bld)0.2 %NormalMercy Health Anderson Hospital on above:Order Comment: Specimen Type: BLOOD SPECIMENOrdering Facility: [facility] Address:[address] [place], [place] [address]Performed By: #### 30316-0 ####[facility] LABCLIA [id number] [place] [address] [place] AMERICADifferential cell count method Nom (Bld)AutoNormalClevelLouis Stokes Cleveland VA Medical Center on above:Order Comment: Specimen Type: BLOOD SPECIMENOrdering Facility: [facility] Address:[address] [place], [place] [address]Performed By: #### 92634- 8 ####[facility] LABCLIA [id number] [place] [id number] [place] AMERICAEosinophils (Bld) [#/Vol]0.23 10*3/uLNormal<0.46[facility] on above:Order Comment: Specimen Type: BLOOD SPECIMENOrdering Facility: [facility] Address:[address] [place], [place] [address]Performed By: #### 54622-3 ####[facility] LABCLIA [id number] [place] [address] [place] AMERICAEosinophils/100 WBC (Bld)2.8 % NormalMercy Health Anderson Hospital on above:Order Comment: Specimen Type: BLOOD SPECIMENOrdering Facility: [facility] Address:[address] [place], [place] [address]Performed By: #### 55408-6 ####[facility] LABIA [id number] [place] [address] [place] AMERICAErythrocyte distribution width (RBC) [Ratio]13.4 %Normal 11.5-15.0[facility] on above:Order Comment: Specimen Type: BLOOD SPECIMENOrdering Facility: [facility] Address:[address] [place], [place] [address]Performed By: #### 51690-0 ####[facility] [id number] [address] STATES OF AMERICAHematocrit (Bld) [Volume fraction]35.0 %Low36.0-46.0 [facility] on above:Order Comment: Specimen Type: BLOOD SPECIMENOrdering Facility: [facility] Address:[address] [place], [place] [address]Performed By: #### 75686-4 ####[facility] LABIA [id number] [place] [address] [place] AMERICAHemoglobin (Bld) [Mass/Vol]11.8 g/sFHolwvz64.5-15.5CPremier Health on above:Order Comment: Specimen Type: BLOOD SPECIMENOrdering Facility: [facility] Address:[address] [place], [place] [address]Performed By: #### 85726-9 ####[facility] LABIA [id number] [place] [address] [place] Immature granulocytes (Bld) [#/Vol]0.04 10*3/uLNormal<0.10[facility] on above:Order Comment: Specimen Type: BLOOD SPECIMENOrdering Facility: [facility] Address:[address] [place], [place] [address]Performed By: #### 18108-5 ####[facility] LABCLIA [id number] [place] [address] [place] Immature granulocytes/100 WBC (Bld)0.5 %NormalMercy Health Anderson Hospital on above:Order Comment: Specimen Type: BLOOD SPECIMENOrdering Facility: [facility] Address:[address] [place] [address] Performed By: #### 75272-6 ####[facility] LABCLIA [id number] [place] [address] [place] Lymphocytes (Bld) [#/Vol]1.67 10*3/uLNormal1.00-4.00[facility] Comment on above:Order Comment: Specimen Type: BLOOD SPECIMENOrdering Facility: [facility] Address:[address] [place] [address] Performed By: #### 36771-3 ####[facility] LABCLIA [id number] [place] [address] [place] Lymphocytes/100 WBC (Bld)20.5 %NormalMercy Health Anderson Hospital on above: Order Comment: Specimen Type: BLOOD SPECIMENOrdering Facility: [facility] Address:[address] [place], [place] [address]Performed By: #### 65787- 8 ####[facility] LABCLIA [id number] [place] [address] [place] AMERICAMCH (RBC) [Entitic mass]29.1 pg Yzwhzp86.0-34.0[facility] on above:Order Comment: Specimen Type: BLOOD SPECIMENOrdering Facility: [facility] Address:[address] [place], [place] [address]Performed By: #### 31837-3 ####[facility] LABIA [id number] [address]ETMCHC (RBC) [Mass/Vol]33.7 g/dL Oowhxd87.5-36.0[facility] on above:Order Comment: Specimen Type: BLOOD SPECIMENOrdering Facility: [facility] Address:[address] [place], [place] [address]Performed By: #### 16528-0 ####[facility] LABIA [id number] [address]ETMCV (RBC) [Entitic vol]86.2 fL Ucyatx33.0-100.0[facility] on above:Order Comment: Specimen Type: BLOOD SPECIMENOrdering Facility: [facility] Address:[address] [place], [place] [address]Performed By: #### 27315-1 ####[facility] [id number] [place] [address] [place] AMERICAMonocytes (Bld) [#/Vol]0.67 10*3/uLNormal<0.87[facility] on above:Order Comment: Specimen Type: BLOOD SPECIMENOrdering Facility: [facility] Address:[address] [place], [place] [address]Performed By: #### 78441-4 ####[facility] LABIA [id number] [place] [address] [place] AMERICAMonocytes/100 WBC (Bld)8.2 % NormalMercy Health Anderson Hospital on above:Order Comment: Specimen Type: BLOOD SPECIMENOrdering Facility: [facility] Address:[address] [place], [place] [address]Performed By: #### 68553-5 ####[facility] LABIA [id number] [place] [address] [place] AMERICANeutrophils (Bld) [#/Vol]5.51 10*3/uLNormal1.45-7.50[facility] on above:Order Comment: Specimen Type: BLOOD SPECIMENOrdering Facility: [facility] Address:[address] [place], [place] [address]Performed By: #### 56963-3 ####[facility] LABCLIA [id number] [place] [address] [place] AMERICANeutrophils/100 WBC (Bld)67.8 %NormalMercy Health Anderson Hospital on above:Order Comment: Specimen Type: BLOOD SPECIMENOrdering Facility: [facility] Address:[address] [place] [address] Performed By: #### 93185-7 ####[facility] LABIA [id number] [place] [address] [place] Nucleated RBC (Bld) [#/Vol]10*3/uLNormal<0.01[facility] on above:Order Comment: Specimen Type: BLOOD SPECIMENOrdering Facility: [facility] Address:[address] [place] [address] Performed By: #### 44768-6 ####[facility] LABIA [id number] [place] [address] [place] Nucleated RBC/100 WBC (Bld) [Ratio]0.0 /100 WBCNormalCCommunity Regional Medical Center Comment on above:Order Comment: Specimen Type: BLOOD SPECIMENOrdering Facility: [facility] Address:[address] [place] [address] Performed By: #### 19391-2 ####[facility]IA [id number] [place] [address] [place] Platelet mean volume (Bld) [Entitic vol]9.9 fLNormal9.0-12.7CPremier Health on above:Order Comment: Specimen Type: BLOOD SPECIMENOrdering Facility: [facility] Address:[address] [place], [place] [address]Performed By: #### 37565-0 ####[facility] LABIA [id number] [address] Platelets (Bld) [#/Vol]280 10*3/vYCzpzbw496-543KfzpcjbtuMercy Health Anderson Hospital on above:Order Comment: Specimen Type: BLOOD SPECIMENOrdering Facility: [facility] Address:[address] [place] [address] Performed By: #### 82946-5 ####[facility] [id number] [address] RBC (Bld) [#/Vol]4.06 10*6/uLNormal3.90-5.20[facility] on above:Order Comment: Specimen Type: BLOOD SPECIMENOrdering Facility: [facility] Address:[address] [place], [place] [address]Performed By: #### 92207-8 ####[facility] LABIA [id number] [address]ETWBC (Bld) [#/Vol]8.14 10*3/uLNormal3.70-11.00[facility] on above:Order Comment: Specimen Type: BLOOD SPECIMENOrdering Facility: [facility] Address:[address] [place], [place] [address]Performed By: #### 10193-9 ####[facility] [id number] [place] [id number] [facility]ICAL CENTERCNDSon 33-99-7530YVDXZIN ID: [id number] Author: JAIMIE CHATTERJEE APRN.[employer] Service: General Surgery Author Type: Nurse Practitioner [...] open conversion of gastric sleeve to a Maria Antonia en Y gastric bypass Open right myofascial [...] paraesophageal hernia repair, gastric sleeve conversion to Maria Antonia-en-Y bypass (Dr. Grissom). See operative report for details. She recovered in the PACU and transferred to the [facility] for the remainder of her postoperative care. She was started on IV pain medications. Her hospital course is as follows: 11/24 - POD 1 - APMS consult for pain control. Advanced to phase II bariatric diet. Ramirez removed. 11/25 - Ketamine gtt stopped. Tolerating diet. 11/26 - Weaning CLOTH WORKER today. 11/27 - Tolerating diet, pain controlled and voiding freely. Started on doxycycline for incisional erythema. She will complete a 1 week course. Stable for discharge home. Left MERCED drains removed. Follow up requested in 1 week for MERCED drain removal. Active Hospital Problems Diagnosis Date Noted Ventral hernia without obstruction or gangrene 11/23/2024 Hypokalemia 11/27/2024 Hypophosphataemia 11/27/2024 Postoperative cellulitis of surgical wound 11/27/2024 S/P hernia repair 11/26/2024 Morbid obesity with BMI of 45.0-49.9, adult (HCC) 11/26/2024 Acute postoperative pain 11/26/2024 GERD (gastroesophageal reflux disease) 11/06/2024 Hypertension 11/06/2024 Psoriatic arthritis (HCC) 11/06/2024 Hypothyroidism 10/23/2022 Resolved Hospital Problems No resolved problems to display. Transitions of Care Critical Issues: Follow up in 1 week for MERCED drain removal. LABS AND PROCEDURES PENDING AT DISCHARGE: No pending results. CONSULTING TEAMS DURING HOSPITALIZATION: Bariatric surgery, [facility] Treatment Team: Attending Provider: Rocio Jeff MD Consulting: [facility]ULFPORTMaryellen BARIATRIC SURGERY PATIENT CONDITION AT DISCHARGE: Stable [...] this medication, and follow (more content not included)...NormalAdena Pike Medical CenterLTon 07-09-1169XUXJDIEJFE ID: [id number] Author: YAN RANDALL MD Service: General Surgery Author Type: Resident Type: Consults Filed: 11/27/2024 07:30 Note Text: Bariatric Surgery Pager: [phone] SURGERY CONSULT PROGRESS NOTE Patient Name: Tiffani Allison Date: November 27, 2024 ASSESSMENT AND PLAN: Tiffani Allison is a 39 year old PMHx notable for GERD, recent smoker, hypothyroidism, prior sleeve gastrectomy and s/p laparoscopic PEHR and conversion to RYGB, with abdominal wall reconstruction on 11/23/24. Overall patient doing well in the immediate post op period. CLOTH WORKER is off, and pain slightly better controlled but using IV narcotic. Pending patient's pain toleration, okay to DC from Bariatric perspective. Recommendations: - Phase II diet - Wean CLOTH WORKER as able - Encourage protein shake intake - wean O2 as able - Monitor for diet toleration - continue lovenox - ambulation encouraged - IS and SCDs - okay to DC from bariatric perspective Appreciate hernia surgery team care. Plan of care discussed with staff. Yan Randall MD General Surgery Resident Bariatric Surgery Pager: [phone] On nights (6 pm to 6 am) and on Weekends/Holidays, please page the on-call pager: [phone] 7:21 AM, 11/27/2024 --- INTERVAL: No acute events overnight. CLOTH WORKER and ketamin off Tolerating 1.5 protein shakes [...] -- 102 106 108* -- CO2 -- 28 27 25 -- CREAT -- 0.58 0.53* 0.47* -- BUN -- 5* 5* 4* -- GLUC -- 89 96 76 -- P -- 2.5* -- 2.1* -- MG -- 2.0 -- 1.8 -- CA -- 8.7 8.5 8.0* -- Imaging Reviewed No new imaging.NormalSelect Medical Specialty Hospital - ColumbusMagnesium SerPl-mCncon 11-27-2024 Magnesium [Mass/Vol]2.0 mg/dLNormal1.7-2.3CCommunity Regional Medical CenterComment on above:Order Comment: Specimen Type: BLOOD SPECIMEN [facility] Address: [address] [place], [place] [address]Performed By: #### 18881-0, 2777-1, 55482-1 #### [facility] CLIA [id number] [address] [place], [place] [address] [place] [address] [place] AMERICAPhosphate SerPl-mCncon 70-49-6106Vkoluprcm [Mass/Vol]2.9 mg/dLNormal2.7-4.8CCommunity Regional Medical Center Comment on above:Order Comment: Specimen Type: BLOOD SPECIMEN [facility] Address: [address] [place], [place] [address]Performed By: #### 60779-1, 2777-1, 05969-0 #### [facility] CLIA [id number] [address] [place] [address] [address]THERAPY NTon 11-27-2024 THERAPY NTHNO ID: [id number] Author: JESSI MALONEY OTR/Ajith Service: Occupational Therapy Author Type: Occupational Therapist Type: Therapy (PT/OT/Speech/Resp) Filed: 11/27/2024 08:13 Note Text: THERAPY COMMUNICATION NOTE SERVICE DATE: 11/27/2024 ROOM: [place] [address] Physical therapy consult received. Chart reviewed. No [...] Allison DATE: November 27, 2024 TIME: 8:13 AMNormalSelect Medical Specialty Hospital - ColumbusBasic metabolic 2000 panelon 98-16-4376Oyigm gap [Moles/Vol]10 mmol/LNormal8-15[facility] Comment on above:Order Comment: Specimen Type: BLOOD SPECIMEN [facility] Address: [address] [place], [place] [address]Performed By: #### 20297-0, 27701-29, #### [facility] CLIA [id number] [address] [place] [address] [place] AMERICACalcium [Mass/Vol]8.7 mg/dL Normal8.5-10.2CPremier Health on above:Order Comment: Specimen Type: BLOOD SPECIMEN [facility] Address: [address] [place], [place] [address]Performed By: #### 90782-2, 27701-29, #### [facility] CLIA [id number] [address] [place] [address] [place] AMERICAChloride [Moles/Vol]102 mmol/DBqwqyx18-632SddynjxabMercy Health Anderson Hospital on above:Order Comment: Specimen Type: BLOOD SPECIMEN [facility] Address: [address] [place], [place] [address]Performed By: #### 06954-6, 2776-08, #### [facility] CLIA [id number] [address] [place] [address] [place] AMERICACO2 [Moles/Vol]28 mmol/L Ghyusd62-93PnqicwxptMercy Health Anderson Hospital on above:Order Comment: Specimen Type: BLOOD SPECIMEN [facility] Address: [address] [place], [place] [address]Performed By: #### 67383-4, 2776-08, #### [facility] CLIA [id number] [address] [place], [place] [address] [place] AMERICACreatinine [Mass/Vol]0.58 mg/dLNormal0.58-0.96[facility] on above:Order Comment: Specimen Type: BLOOD SPECIMEN [facility] Address: [address] [place], [place] [address]Performed By: #### 24219-8, 2777-, #### [facility] CLIA [id number] [address] [place] [address] [place] AMERICACreatinine and Glomerular filtration rate.predicted panel (S/P/Bld)119 mL/min/1.73m???Normal>=60[facility] on above:Order Comment: Specimen Type: BLOOD SPECIMEN [facility] Facility[facility] Address: [address] [place], [place] [address]Result Comment: Estimated Glomerular Filtration Rate (eGFR) is calculated using the 2020 CKD-EPI cre atinine equation. This equation utilizes serum creatinine, sex, and age as parameters. The creatinine assay has traceable calibration to isotope dilution- mass spectrometry. Refer to KDIGO guidelines for clinical interpretation. In patients with unstable renal function, e.g. those with acute kidney injury, the eGFR may not accurately reflect actual GFR.Performed By: #### 15837-7, 2777-, #### [facility] CLIA [id number] [address] [place] [address] [place] AMERICAGlucose [Mass/Vol]89 mg/dL Imetnq58-38MtlsguyzzMercy Health [facility] Hospital on above:Order Comment: Specimen Type: BLOOD SPECIMEN [facility] Address: [address] [place], [place] [address]Result Comment: The [place] Diabetes [employer] (ADA) provides guidance for cutoff [...] Standards of Medical Care in Diabetes 2016, [place] [employer]. Diabetes Care. 2016.39(Suppl 1).Performed By: #### 74551-9, 2776-08, #### [facility] CLIA [id number] [address] [place] [address] [place] AMERICAPotassium [Moles/Vol]3.6 mmol/LLow3.7-5.1CPremier Health on above:Order Comment: Specimen Type: BLOOD SPECIMEN [facility]ing Facility[facility] Address: [address] [place], [place] [address]Performed By: #### 47133-5, 2776-08, #### [facility] [place] [id number] [address] [place] [address] [place] AMERICASodium [Moles/Vol]140 mmol/L Wehxik451-066ZwjaesfqcMercy Health Anderson Hospital on above:Order Comment: Specimen Type: BLOOD SPECIMEN [facility] Address: [address] [place], [place] [address]Performed By: #### 48001-8, 2776-08, #### [facility] IA [id number] [address] [place] [address] [place] AMERICAUrea nitrogen [Mass/Vol]5 mg/dLLow7-21[facility] on above:Order Comment: Specimen Type: BLOOD SPECIMEN [facility] Address: [address] [place], [place] [address]Performed By: #### 74183-8, 2776-08, #### [facility] IA [id number] [address] [place], [place] [address] [place] AMERICACB W Auto Differential panel (Bld)on 30-88-3244Tmrejrshn (Bld) [#/Vol]0.03 10*3/uLNormal<0.11CPremier Health on above:Order Comment: Specimen Type: BLOOD SPECIMEN [facility] Address: [address] [place], [place] [address]Performed By: #### 31432-8 #### [facility] CLIA [id number] [address] [place] [address] [place] AMERICABasophils/100 WBC (Bld)0.4 % NormalMercy Health Anderson Hospital on above:Order Comment: Specimen Type: BLOOD SPECIMEN [facility] Address: [address] [place], [place] [address]Performed By: #### 26397-2 #### [facility] CLIA [id number] [address] [place] [address] [place] AMERICADifferential cell count method Nom (Bld)AutoNormalCPremier Health on above:Order Comment: Specimen Type: BLOOD SPECIMEN [facility] Address: [address] [place], [place] [address]Performed By: #### 57451-0 #### [facility] IA [id number] [address] [place] [address] [place] AMERICAEosinophils (Bld) [#/Vol] 0.16 10*3/uLNormal<0.46[facility] on above:Order Comment: Specimen Type: BLOOD SPECIMEN [facility] Address: [address] [place], [place] [address]Performed By: #### 62988-2 #### [facility] CLIA [id number] [address] [place] [address] [place] AMERICAEosinophils/100 WBC (Bld)1.9 %NormalMercy Health Anderson Hospital on above:Order Comment: Specimen Type: BLOOD SPECIMEN [facility] Address: [address] [place], [place] [address]Performed By: #### 33343-5 #### [facility] CLIA [id number] [address] [place] [address] [place] AMERICAErythrocyte distribution width (RBC) [Ratio]13.5 %Axukad16.5-15.0[facility] on above:Order Comment: Specimen Type: BLOOD SPECIMEN [facility] Address: [address] [place], [place] [address]Performed By: #### 82257-8 #### [facility] CLIA [id number] [address] [place] [address] [place] AMERICAHematocrit (Bld) [Volume fraction]36.6 %Jkaznd90.0-46.0[facility] on above:Order Comment: Specimen Type: BLOOD SPECIMEN [facility] Address: [address] [place], [place] [address]Performed By: #### 70696-0 #### [facility] CLIA [id number] [address] [place] [address] [place] AMERICAHemoglobin (Bld) [Mass/Vol] 12.3 g/nPZywsms74.5-15.5CPremier Health on above:Order Comment: Specimen Type: BLOOD SPECIMEN [facility] Address: [address] [place], [place] [address]Performed By: #### 49911-1 #### [facility] CLIA [id number] [address] [place] [address] [place] AMERICAImmature granulocytes (Bld) [#/Vol]0.03 10*3/uLNormal<0.10[facility] on above:Order Comment: Specimen Type: BLOOD SPECIMEN [facility] Address: [address] [place], [place] [address]Performed By: #### 25863-7 #### [facility] CLIA [id number] [address] [place] [address] [place] AMERICAImmature granulocytes/100 WBC (Bld)0.4 %NormalMercy Health Anderson Hospital on above:Order Comment: Specimen Type: BLOOD SPECIMEN [facility] Address: [address] [place], [place] [address]Performed By: #### 03792-5 #### [facility] CLIA [id number] [address] [place] [address] [place] AMERICALymphocytes (Bld) [#/Vol] 1.16 10*3/uLNormal1.00-4.00[facility] on above:Order Comment: Specimen Type: BLOOD SPECIMEN [facility] Address: [address] [place], [place] [address]Performed By: #### 28364-8 #### [facility] CLIA [id number] [address] [place] [address] [place] AMERICALymphocytes/100 WBC (Bld) 14.0 %NormalMercy Health Anderson Hospital on above:Order Comment: Specimen Type: BLOOD SPECIMEN [facility] Address: [address] [place], [place] [address]Performed By: #### 86694-5 #### [facility] CLIA [id number] [address] [place], [place] [address] [facility] OF AMERICAMCH (RBC) [Entitic mass]29.3 bmCfqobs64.0-34.0[facility] on above:Order Comment: Specimen Type: BLOOD SPECIMEN [facility] Address: [address] [place], [place] [address]Performed By: #### 51092-5 #### [facility] CLIA [id number] [address] [place], [place] [address] [facility] (RBC) [Mass/Vol]33.6 g/xTFcylzu06.5-36.0[facility] on above:Order Comment: Specimen Type: BLOOD SPECIMEN [facility] Address: [address] [place], [place] [address]Performed By: #### 39008-2 #### [facility] CLIA [id number] [address] [place] [address] [place] AMERICAMCV (RBC) [Entitic vol]87.1 pKIaohah45.0-100.0[facility] on above:Order Comment: Specimen Type: BLOOD SPECIMEN [facility] Address: [address] [place], [place] [address]Performed By: #### 87331-5 #### [facility] CLIA [id number] [address] [place] [address] [place] AMERICAMonocytes (Bld) [#/Vol]0.57 10*3/uLNormal<0.87[facility] on above:Order Comment: Specimen Type: BLOOD SPECIMEN [facility] Address: [address] [place], [place] [address]Performed By: #### 87871-9 #### [facility] CLIA [id number] [address] [place] [address] [place] AMERICAMonocytes/100 WBC (Bld)6.9 % NormalMercy Health Anderson Hospital on above:Order Comment: Specimen Type: BLOOD SPECIMEN [facility] Address: [address] [place], [place] [address]Performed By: #### 51277-8 #### [facility] CLIA [id number] [address] [place] [address] [place] AMERICANeutrophils (Bld) [#/Vol] 6.32 10*3/uLNormal1.45-7.50[facility] on above:Order Comment: Specimen Type: BLOOD SPECIMEN [facility] Address: [address] [place], [place] [address]Performed By: #### 50344-7 #### [facility] CLIA [id number] [address] [place] [address] [place] AMERICANeutrophils/100 WBC (Bld) 76.4 %NormalMercy Health Anderson Hospital on above:Order Comment: Specimen Type: BLOOD SPECIMEN [facility] Address: [address] [place], [place] [address]Performed By: #### 23807-3 #### [facility] CLIA [id number] [address] [place] [address] [place] AMERICANucleated RBC (Bld) [#/Vol] 10*3/uLNormal<0.01[facility] on above:Order Comment: Specimen Type: BLOOD SPECIMEN [facility] Address: [address] [place], [place] [address]Performed By: #### 28467-6 #### [facility] CLIA [id number] [address] [place] [address] [place] AMERICANucleated RBC/100 WBC (Bld) [Ratio]0.0 /100 WBCNormalCPremier Health on above:Order Comment: Specimen Type: BLOOD SPECIMEN [facility] Address: [address] [place], [place] [address]Performed By: #### 28051-4 #### [facility] CLIA [id number] [address] [place] [address] [place] AMERICAPlatelet mean volume (Bld) [Entitic vol]10.0 fLNormal9.0-12.7CPremier Health on above: Order Comment: Specimen Type: BLOOD SPECIMEN [facility] Address: [address] [place], [place] [address]Performed By: #### 74706-4 #### [facility] CLIA [id number] [address] [place], [place] [address] [place] AMERICAPlatelets (Bld) [#/Vol]232 10*3/fFYjvbpo412-873ZsvxauvpnMercy Health [facility] Hospital on above:Order Comment: Specimen Type: BLOOD SPECIMEN Order[facility] Address: [address] [place], [place] [address]Performed By: #### 53395-0 #### [facility] CLIA [id number] [address] [place], [place] [address]RB (Bld) [#/Vol]4.20 10*6/uLNormal3.90-5.20[facility] on above:Order Comment: Specimen Type: BLOOD SPECIMEN [facility] Address: [address] [place], [place] [address]Performed By: #### 72615-1 #### [facility] CLIA [id number] [address] [place], [place] [address]W (Bld) [#/Vol]8.27 10*3/uLNormal3.70-11.00[facility] on above:Order Comment: Specimen Type: BLOOD SPECIMEN [facility] Address: [address] [place], [place] [address]Performed By: #### 40275-6 #### [facility] [place] [id number] [address] [place], [place] [address]SUUniversity [facility] [id number] HNO ID: [id number] Author: YAN RANDALL MD Service: General Surgery Author Type: Resident Type: Consults Filed: 11/26/2024 07:25 Note Text: Attestation signed by Noel Fitzgerald MD at 11/26/2024 5:20 PM Bariatric Surgery Fellow Attestation: Progressing well from bariatric perspective, tolerating water and protein shakes. Still has decent amount of pain, ket drip stopped and plan to wean off CLOTH WORKER today, transition to orals only. Patient seen and examined with the resident team. Agree with the plan as stated. Bariatric Surgery Pager: [phone] SURGERY CONSULT PROGRESS NOTE Patient Name: Tiffani [...] gtt timed out but continues to use CLOTH WORKER heavily. Will continue MM pain control, and continued encouragement of protein intake. Recommendations: - Phase II diet - Wean CLOTH WORKER as able - Encourage protein shake intake - wean O2 as able - Monitor for diet toleration - continue lovenox - ambulation encouraged - IS and SCDs Appreciate hernia surgery team care. Plan of care discussed with staff. Yan Randall MD General Surgery Resident Bariatric Surgery Pager: [phone] On nights (6 pm to 6 am) and on Weekends/Holidays, please page the on-call pager: [phone] 7:23 AM, 11/26/2024 --- INTERVAL: No acute [...] -- 108* CO2 27 25 -- 24 CREAT 0.53* 0.47* -- 0.59 BUN 5* 4* -- 6* GLUC 96 76 -- 97 P -- 2.1* -- 3.0 MG -- 1.8 -- 2.2 CA 8.5 8.0* -- 8.3* Imaging Reviewed No new imaging.NormalSelect Medical Specialty Hospital - ColumbusMagnesium SerPl-mCncon 11-26-2024 Magnesium [Mass/Vol]2.0 mg/dLNormal1.7-2.3CCommunity Regional Medical CenterComment on above:Order Comment: Specimen Type: BLOOD SPECIMEN [facility] Address: [address] [place], [place] [address]Performed By: #### 34724-8, 2777-1, #### [facility] CLIA [id number] [address] [place] [address] [place] AMERICAPhosphate SerPl-mCncon 15-31-0144Umwctwtbh [Mass/Vol]2.5 mg/dLLow2.7-4.8CCommunity Regional Medical Center Comment on above:Order Comment: Specimen Type: BLOOD SPECIMEN [facility] Address: [address] [place], [place] [address]Performed By: #### 03053-6, 2777-, #### [facility] CLIA [id number] [address] [place] [address] [place] AMERICABasic metabolic 2000 panelon 09-73-7019Lfurh gap [Moles/Vol]8 mmol/LNormal8-15[facility] Comment on above:Order Comment: Specimen Type: BLOOD SPECIMEN [facility] Address: [address] [place] [address]Xltfajvzo By: #### 36777-8, 2776-08, #### [facility] CLIA [id number] [address] [place] [address] [place] AMERICACalcium [Mass/Vol]8.5 mg/dL Normal8.5-10.2CPremier Health on above:Order Comment: Specimen Type: BLOOD SPECIMEN [facility] Address: [address] [place] [address]Ivfhopvyd By: #### 24107-4, 2776-08, #### [facility] CLIA [id number] [address] [place] [address] [place] AMERICAChloride [Moles/Vol]106 mmol/WBqbjws63-437EdbznbxlwMercy Health Anderson Hospital on above:Order Comment: Specimen Type: BLOOD SPECIMEN [facility] Address: [address] [place] [address]Mtwcrltpm By: #### 80401-2, 2776-08, #### [facility] CLIA [id number] [address] [place] [address] [place] AMERICACO2 [Moles/Vol]27 mmol/L Dtwbvi63-50WemlpjxkkMercy Health Anderson Hospital on above:Order Comment: Specimen Type: BLOOD SPECIMEN [facility] Address: [address] [place] [address]Llousvanp By: #### 65017-5, 2776-08, #### [facility] CLIA [id number] [address] [place] [address] [place] AMERICACreatinine [Mass/Vol]0.53 mg/dLLow0.58-0.96[facility] on above:Order Comment: Specimen Type: BLOOD SPECIMEN [facility] Address: [address] [place] [address]Yabwllkzt By: #### 65093-0, 2777-1, #### [facility] CLIA [id number] [address] [place] [address] [place]ACreatinine and Glomerular filtration rate.predicted panel (S/P/Bld)122 mL/min/1.73m???Normal>=60[facility] on above:Order Comment: Specimen Type: BLOOD SPECIMEN [facility] Address: [address] [place], [place] [id number] Comment: Estimated Glomerular Filtration Rate (eGFR) is calculated using the 2020 CKD-EPI cre atinine equation. This equation utilizes serum creatinine, sex, and age as parameters. The creatinine assay has traceable calibration to isotope dilution- mass spectrometry. Refer to KDIGO guidelines for clinical interpretation. In patients with unstable renal function, e.g. those with acute kidney injury, the eGFR may not accurately reflect actual GFR.Performed By: #### 32257-4, 2777, #### [facility] CLIA [id number] [address] [place], [place] [address] [place] AMERICAGlucose [Mass/Vol]96 mg/dL Odcesm09-03EikwwgmvbMercy Health Anderson Hospital on above:Order Comment: Specimen Type: BLOOD SPECIMEN [facility] Address: [address] [place] [address]Hkdthn Comment: The [place] Diabetes [employer] (ADA) provides guidance for cutoff [...] Standards of Medical Care in Diabetes 2016, [place] [employer]. Diabetes Care. 2016.39(Suppl 1).Performed By: #### 39355-3, 2776-, #### [facility] CLIA [id number] [address] [place] [address] [place] AMERICAPotassium [Moles/Vol]4.1 mmol/LNormal3.7-5.1CPremier Health on above:Order Comment: Specimen Type: BLOOD SPECIMEN [facility] Address: [address] [place], [place] [address]Performed By: #### 57027-4, 2776-, #### [facility] CLIA [id number] [address] [place] [address] [place]ASodium [Moles/Vol]141 mmol/L Dyiblx579-198LylbclogkMercy Health Anderson Hospital on above:Order Comment: Specimen Type: BLOOD SPECIMEN [facility] Address: [address] [place], [place] [address]Performed By: #### 44824-0, 2776-08, #### [facility] CLIA [id number] [address] [place] [address] [place] AMERICAUrea nitrogen [Mass/Vol]5 mg/dLLow7-21[facility] on above:Order Comment: Specimen Type: BLOOD SPECIMEN [facility] Address: [address] [place], [place] [address]Performed By: #### 32055-0, 2776-08, #### [facility] CLIA [id number] [address] [place], [place] [address] [place] AMERICAAnion gap [Moles/Vol]8 mmol/LNormal8-15[facility] on above:Order Comment: Specimen Type: BLOOD SPECIMEN [facility] Address: [address] [place], [place] [address]Performed By: #### 54891-5, 21263- 2, 2776- #### [facility] CLIA [id number] [address] [place] [address] [place] AMERICACalcium [Mass/Vol]8.0 mg/dL Low8.5-10.2CPremier Health on above:Order Comment: Specimen Type: BLOOD SPECIMEN [facility] Address: [address] [place], [place] [address]Performed By: #### 94738-2, 39921- 2, 277-1 #### [facility] CLIA [id number] [address] [place] [address] [place] AMERICAChloride [Moles/Vol]108 mmol/ZTneo77-962EswoyobvfMercy Health [facility] Hospital on above:Order Comment: Specimen Type: BLOOD SPECIMEN [facility] Address: [address] [place], [place] [address]Performed By: #### 29006-3, 83835- 2, 277-1 #### [facility] CLIA [id number] [address] [place] [address] [place]ICACO2 [Moles/Vol]25 mmol/L Gsnpkd98-58EwpuvrqijMercy Health Anderson Hospital on above:Order Comment: Specimen Type: BLOOD SPECIMEN [facility] Address: [address] [place], [place] [address]Performed By: #### 97055-9, 10462- 2, 277-1 #### [facility] CLIA [id number] [address] [place] [address] [place]ICACreatinine [Mass/Vol]0.47 mg/dLLow0.58-0.96[facility] on above:Order Comment: Specimen Type: BLOOD SPECIMEN [facility] Address: [address] [place], [place] [address]Performed By: #### 55461-1, 62599- 2, 2777-1 #### [facility] CLIA [id number] [id number], [place] [address] [place] AMERICACreatinine and Glomerular filtration rate.predicted panel (S/P/Bld)125 mL/min/1.73m???Normal>=60[facility] on above:Order Comment: Specimen Type: BLOOD SPECIMEN [facility] Address: [address] [place], [place] [id number] Comment: Estimated Glomerular Filtration Rate (eGFR) is calculated using the 2020 CKD-EPI cre atinine equation. This equation utilizes serum creatinine, sex, and age as parameters. The creatinine assay has traceable calibration to isotope dilution- mass spectrometry. Refer to KDIGO guidelines for clinical interpretation. In patients with unstable renal function, e.g. those with acute kidney injury, the eGFR may not accurately reflect actual GFR.Performed By: #### 69364-0, 28428-3, 2776-1 #### [facility] CLIA [id number] [address] [place], [place] [address] [place] AMERICAGlucose [Mass/Vol]76 mg/dL Katzzi99-36CatqxvmddMercy Health Anderson Hospital on above:Order Comment: Specimen Type: BLOOD SPECIMEN [facility] Address: [address] [place], [place] [address]Result Comment: The [place] Diabetes [employer] (ADA) provides guidance for cutoff [...] Standards of Medical Care in Diabetes 2016, [place] [employer]. Diabetes Care. 2016.39(Suppl 1).Performed By: #### 58179-8, 68956- 2, 7-1 #### [facility] CLIA [id number] [address] [place], [place] [address] [place] AMERICAPotassium [Moles/Vol]6.7 mmol/LCritically high3.7-5.1CPremier Health on above:Order Comment: Specimen Type: BLOOD SPECIMEN [facility] Address: [address] [place], [place] [address]Performed By: #### 14273-9, 39660- 2, 277-1 #### [facility] CLIA [id number] [address] [place] [address] [place]ICASodium [Moles/Vol]141 mmol/L Mzhlge505-948ShkxftpqhMercy Health Anderson Hospital on above:Order Comment: Specimen Type: BLOOD SPECIMEN [facility] Address: [address] [place], [place] [address]Performed By: #### 75461-2, 64426- 2, 277- #### [facility] CLIA [id number] [address] [place] [address] [place] AMERICAUrea nitrogen [Mass/Vol]4 mg/dLLow7-21[facility] on above:Order Comment: Specimen Type: BLOOD SPECIMEN [facility] Address: [address] [place], [place] [address]Performed By: #### 14204-2, 28508- 2, 2776- #### [facility] CLIA [id number] [address] [place] [address] [place] AMERICACB W Auto Differential panel (Bld)on 34-67-7380Mbouptlav (Bld) [#/Vol]10*3/uLNormal<0.11CPremier Health on above:Order Comment: Specimen Type: BLOOD SPECIMEN [facility] Address: [address] [place], [place] [address]Performed By: #### 97494-4, 2777-1, 32444-0 #### [facility] CLIA [id number] [address] [place] [address] [place] AMERICABasophils/100 WBC (Bld)0.3 % NormalMercy Health Anderson Hospital on above:Order Comment: Specimen Type: BLOOD SPECIMEN Ordering Facility: [facility] Address: [address] [place], [place] [address]Performed By: #### 76677-7, 2776-08, #### [facility] CLIA [id number] [address] [place] [address] [place] AMERICADifferential cell count method Nom (Bld)AutoNormalCPremier Health on above:Order Comment: Specimen Type: BLOOD SPECIMEN Ordering Facility: [facility] Address: [address] [place], [place] [address]Performed By: #### 14551-8, 2776-08, #### [facility] CLIA [id number] [address] [place] [address] [place] AMERICAEosinophils (Bld) [#/Vol] 0.11 10*3/uLNormal<0.46[facility] on above:Order Comment: Specimen Type: BLOOD SPECIMEN [facility]ing Facility[facility] Address: [address] [place], [place] [address]Performed By: #### 60865-5, 2776-08, #### [facility] CLIA [id number] [address] [place] [address] [place] AMERICAEosinophils/100 WBC (Bld)1.4 %NormalMercy Health Anderson Hospital on above:Order Comment: Specimen Type: BLOOD SPECIMEN [facility]ing Facility: [facility] Address: [address] [place], [place] [address]Performed By: #### 55765-8, 2776-08, #### [facility] CLIA [id number] [address] [place], [place] [address] [place] AMERICAErythrocyte distribution width (RBC) [Ratio]13.9 %Xlrnic04.5-15.0[facility] on above:Order Comment: Specimen Type: BLOOD SPECIMEN [facility]ing Facility: [facility] Address: [address] [place], [place] [address]Performed By: #### 40586-4, 27701-29, #### [facility] CLIA [id number] [address] [place] [address] [place] AMERICAHematocrit (Bld) [Volume fraction]33.1 %Low36.0-46.0[facility] on above:Order Comment: Specimen Type: BLOOD SPECIMEN Ordering Facility: [facility] Address: [address] [place], [place] [address]Performed By: #### 51532-6, 27701-29, #### [facility] CLIA [id number] [address] [place] [address] [place] AMERICAHemoglobin (Bld) [Mass/Vol] 11.0 g/dLLow11.5-15.5CPremier Health on above:Order Comment: Specimen Type: BLOOD SPECIMEN [facility] Address: [address] [place], [place] [address]Performed By: #### 07176-6, 2776-08, #### [facility] CLIA [id number] [address] [place] [address] [place] AMERICAImmature granulocytes (Bld) [#/Vol]0.03 10*3/uLNormal<0.10[facility] on above:Order Comment: Specimen Type: BLOOD SPECIMEN [facility] Address: [address] [place], [place] [address]Performed By: #### 47244-0, 2776-08, #### [facility] CLIA [id number] [address] [place], [place] [address] [place] AMERICAImmature granulocytes/100 WBC (Bld)0.4 %NormalMercy Health Anderson Hospital on above:Order Comment: Specimen Type: BLOOD SPECIMEN [facility] Address: [address] [place], [place] [address]Performed By: #### 50273-6, 2776-08, #### [facility] CLIA [id number] [address] [place], [place] [address] [place] OF AMERICALymphocytes (Bld) [#/Vol] 1.13 10*3/uLNormal1.00-4.00[facility] on above:Order Comment: Specimen Type: BLOOD SPECIMEN [facility] Address: [address] [place], [place] [address]Performed By: #### 55495-0, 2776-08, #### [facility] CLIA [id number] [address] [place] [address] [place] AMERICALymphocytes/100 WBC (Bld) 14.4 %NormalMercy Health Anderson Hospital on above:Order Comment: Specimen Type: BLOOD SPECIMEN [facility] Address: [address] [place], [place] [address]Performed By: #### 11530-5, 2776-08, #### [facility] CLIA [id number] [address] [place], [place] [address] [facility] (RBC) [Entitic mass]29.5 zsHplaob15.0-34.0[facility] on above:Order Comment: Specimen Type: BLOOD SPECIMEN Ordering [facility] Address: [address] [place], [place] [address]Performed By: #### 81063-8, 2776-08, #### [facility] CLIA [id number] [address] [place] [address] [facility] (RBC) [Mass/Vol]33.2 g/iLSmvfsy04.5-36.0[facility] on above:Order Comment: Specimen Type: BLOOD SPECIMEN Ordering [facility]: [facility] Address: [address] [place], [place] [address]Performed By: #### 99039-4, 2776-08, #### [facility] CLIA [id number] [address] [place] [address] [place] AMERICAMCV (RBC) [Entitic vol]88.7 eBAculhr03.0-100.0[facility] on above:Order Comment: Specimen Type: BLOOD SPECIMEN [facility] Address: [address] [place], [place] [address]Performed By: #### 41254-7, 27701-29, #### [facility] CLIA [id number] [address] [place] [address] [place] AMERICAMonocytes (Bld) [#/Vol]0.62 10*3/uLNormal<0.87[facility] on above:Order Comment: Specimen Type: BLOOD SPECIMEN [facility] Address: [address] [place], [place] [address]Performed By: #### 11560-1, 2776-08, #### [facility] CLIA [id number] [address] [place], [place] [address] [place] AMERICAMonocytes/100 WBC (Bld)7.9 % NormalMercy Health Anderson Hospital on above:Order Comment: Specimen Type: BLOOD SPECIMEN [facility] Address: [address] [place], [place] [address]Performed By: #### 75543-1, 2776-08, #### [facility] CLIA [id number] [address] [place], [place] [address] [place] AMERICANeutrophils (Bld) [#/Vol] 5.93 10*3/uLNormal1.45-7.50[facility] on above:Order Comment: Specimen Type: BLOOD SPECIMEN [facility] Address: [address] [place], [place] [address]Performed By: #### 59959-0, 2776-08, #### [facility] CLIA [id number] [address] [place], [place] [address] [place] AMERICANeutrophils/100 WBC (Bld) 75.6 %NormalMercy Health Anderson Hospital on above:Order Comment: Specimen Type: BLOOD SPECIMEN Ordering [facility] Address: [address] [place], [place] [address]Performed By: #### 40745-7, 27701-29, #### [facility] CLIA [id number] [address] [place] [address] [place] AMERICANucleated RBC (Bld) [#/Vol] 10*3/uLNormal<0.01[facility] on above:Order Comment: Specimen Type: BLOOD SPECIMEN [facility] Address: [address] [place], [place] [address]Performed By: #### 28209-4, 2776-08, #### [facility] CLIA [id number] [address] [place], [place] [address] [place] AMERICANucleated RBC/100 WBC (Bld) [Ratio]0.0 /100 WBCNormalCPremier Health on above:Order Comment: Specimen Type: BLOOD SPECIMEN [facility] Address: [address] [place], [place] [address]Performed By: #### 44326-2, 2776-08, #### [facility] CLIA [id number] [address] [place], [place] [address] [place] AMERICAPlatelet mean volume (Bld) [Entitic vol]10.2 fLNormal9.0-12.7CPremier Health on above: Order Comment: Specimen Type: BLOOD SPECIMEN [facility] Address: [address] [place], [place] [address]Performed By: #### 72644-2, 2777-1, #### [facility] CLIA [id number] [address] [place] [address] AMERICAPlatelets (Bld) [#/Vol]205 10*3/fKBnmjll993-643WwfxypwvpMercy Health Anderson Hospital on above:Order Comment: Specimen Type: BLOOD SPECIMEN [facility] Address: [address] [place], [place] [address]Performed By: #### 05953-4, 2777-1, #### [facility] CLIA [id number] [address] [place], [place] [address]RB (Bld) [#/Vol]3.73 10*6/uLLow3.90-5.20[facility] on above:Order Comment: Specimen Type: BLOOD SPECIMEN [facility] Address: [address] [place], [place] [address]Performed By: #### 21259-4, 27701-29, #### [facility] CLIA [id number] [address] [place], [place] [address]WBC (Bld) [#/Vol]7.84 10*3/uLNormal3.70-11.00[facility] on above:Order Comment: Specimen Type: BLOOD SPECIMEN [facility] Address: [address] [place], [place] [address]Performed By: #### 06406-3, 2777-, #### [facility] CLIA [id number] [address] [place], [place] [address] [facility] AMERICACBC panel Auto (Bld)on 08-74-0897Eymagcchvdr distribution width (RBC) [Ratio]13.7 %Tohnsk08.5-15.0 [facility] on above:Order Comment: Specimen Type: BLOOD SPECIMEN Ordering [facility] Address: [address] [place], [place] [address]Performed By: #### 22282-3, 27701-29, #### [facility] CLIA [id number] [address] [place] [address] [place] AMERICAHematocrit (Bld) [Volume fraction]36.1 %Qtzhvj35.0-46.0[facility] on above:Order Comment: Specimen Type: BLOOD SPECIMEN Order[facility] Address: [address] [place], [place] [address]Performed By: #### 80850-5, 27701-29, #### [facility] CLIA [id number] [address] [place] [address] OF AMERICAHemoglobin (Bld) [Mass/Vol] 12.2 g/xUPfkbxc46.5-15.5CPremier Health on above:Order Comment: Specimen Type: BLOOD SPECIMEN [facility] Address: [address] [place], [place] [address]Performed By: #### 47196-7, 2776-08, #### [facility] CLIA [id number] [address] [place], [place] [address]MCH (RBC) [Entitic mass]29.3 rfWhowhs54.0-34.0[facility] on above:Order Comment: Specimen Type: BLOOD SPECIMEN [facility] Address: [address] [place], [place] [address]Performed By: #### 63384-3, 27701-29, #### [facility] CLIA [id number] [address] [place] [address] (RBC) [Mass/Vol]33.8 g/cBRcxcvo55.5-36.0[facility] on above:Order Comment: Specimen Type: BLOOD SPECIMEN Ordering [facility] Address: [address] [place], [place] [address]Performed By: #### 80342-0, 277-, #### [facility] CLIA [id number] [address] [place] [address] [place] AMERICAMCV (RBC) [Entitic vol]86.6 uLQkliqi25.0-100.0[facility] on above:Order Comment: Specimen Type: BLOOD SPECIMEN Ordering [facility] Address: [address] [place], [place] [address]Performed By: #### 87829-8, 27701-29, #### [facility] CLIA [id number] [address] [place] [address] [place] AMERICANucleated RBC (Bld) [#/Vol] 10*3/uLNormal<0.01[facility] on above:Order Comment: Specimen Type: BLOOD SPECIMEN [facility] Address: [address] [place], [place] [address]Performed By: #### 14594-6, 2776-08, #### [facility] CLIA [id number] [address] [place] [address] [place] AMERICAPlatelet mean volume (Bld) [Entitic vol]9.6 fLNormal9.0-12.7CPremier Health on above: Order Comment: Specimen Type: BLOOD SPECIMEN [facility] Address: [address] [place], [place] [address]Performed By: #### 32034-4, 27701-29, #### [facility] CLIA [id number] [address] [place] [address] [place] AMERICAPlatelets (Bld) [#/Vol]212 10*3/xBAzfljm270-555YmbtbxsxaMercy Health [facility] Hospital on above:Order Comment: Specimen Type: BLOOD SPECIMEN [facility] Address: [address] [place], [place] [address]Performed By: #### 69489-1, 2777-1, 96417-3 #### [facility] CLIA [id number] [address] [place], [place] [address]RBC (Bld) [#/Vol]4.17 10*6/uLNormal3.90-5.20[facility] on above:Order Comment: Specimen Type: BLOOD SPECIMEN [facility] Address: [address] [place], [place] [address]Performed By: #### 65627-8, 2777-1, 94883-0 #### [facility] CLIA [id number] [address] [place], [place] [address] [facility]ENTERW (d) [#/Vol]8.65 10*3/uLNormal3.70-11.00[facility] on above:Order Comment: Specimen Type: BLOOD SPECIMEN [facility] Address: [address] [place], [place] [address]Performed By: #### 85522-2, 2777-1, #### [facility] CLIA [id number] [address] [place], [place] [address]CONSULTon 65-77-5637FONMXPQ HNO ID: [id number] Author: YAN RANDALL MD Service: General Surgery Author Type: Resident Type: Consults Filed: 11/25/2024 07:39 Note Text: Bariatric Surgery Pager: [phone] SURGERY CONSULT PROGRESS NOTE Patient Name: Tiffani [...] MD General Surgery Resident Bariatric Surgery Pager: [phone] On nights (6 pm to 6 am) and on Weekends/Holidays, please page the on-call pager: [phone] 7:37 AM, 11/25/2024 --- INTERVAL: No acute [...] CA -- 8.3* Imaging Reviewed No new imaging.NormalAdena Pike Medical CenterLT PROGon 85-76-0540WWTZGRJ PROGHNO ID: [id number] Author: JOSE MATTHEWS MD Service: Pain Management Author Type: Resident Type: Consult Progress Note Filed: 11/25/2024 13:39 Note Text: Attestation signed by Jose Matthews MD at 11/25/2024 1:39 PM Attending Note I evaluated the patient and personally participated in the bermudez components. I agree with the resident's findings and plan as documented and have discussed the case and management of the patient's care with the resident. Increased oxycodone to 15-20 mg prn. APMS will sign off once ketamine falls off. Signature: Jose Matthews MD Date: 11/25/2024 Time: 1:39 PM APS POST-OPERATIVE PROGRESS NOTE SERVICE DATE: 11/25/2024 : 1985 SERVICE TIME: 739 SURGERY DATE: 11/23/2024 PRIMARY SERVICE: General Surgery Subjective CHIEF COMPLAINT: Post-operative pain HPI: Tiffani Allison is a 39 year old female who is POD # 2 S/P laparoscopic paraesophageal hernia repair, laparoscopic converted to open conversion of gastric sleeve to a Maria Antonia en Y gastric bypass, open right and [...] IV Pain medications, PO Pain medications, and CLOTH WORKER bolus Patient Satisfied with Pain Control: No Overnight Pain Interventions: None ROS MACHINE TAPER: Negative for headaches, negative for seizures, negative [...] (Ketalar) 0.3 mg/kg/hr (Adjusted) INTRAVENOUS CONTINUOUS fentaNYL CLOTH WORKER 20 mcg/mL in NaCl 0.9% 100 mL [...] Count 256 11/24/2024 Medication and Non-Pharmacologic VTE Prophylaxis/Anticoagulants Anticoagulant AND Antiplatelet Medications (From admission, onward) Start Dose Route Frequency Last Action Ordered Stop 11/24/24 1000 enoxaparin 40 mg injection (LOVENOX) (enoxaparin injection (LOVENOX)) 40 mg SUBCUTANEOUS EVERY 12 HOURS Given, 11/24 224111/24/24 0943 -- 11/23/241999 vte pharmacologic prophylaxis contraindicated ([place]) 11/23/241999 pneumatic compression sleeve(s) ([place]) 11/23/241999 activity - mobilize patient ([place]) Assessment/Plan Morbid Obesity Class 3 Tiffani Allison is a 39 year old female who is being seen as described in the HPI above. Current Pain Medications Ordered: -fentanyl CLOTH WORKER 20 mcg/ml at -acetaminophen 1g q6h -hydromorphone 0.2mg q2h prn -oxycodone liquid 5-10mg q4h prn -ketamine gtt 0.3 mg/kg/hr x (more content not included)...NormalBarney Children's Medical Center COMPLETEon 55-64-2771WUG COMPLETEVentricular Rate : 71 BPM Atrial Rate : 71 BPM P-R Interval : 146 ms QRS Duration : 94 ms Q-T Interval : 402 ms QTC Calculation(Bazett) : 436 ms Calculated P [place] : 35 degrees Calculated R [place] : 29 degrees Calculated T [place] : 13 degrees NORMAL SINUS RHYTHM NORMAL ECG Confirmed by DAMIEN ORTEGA MD ([id number]) on 12/13/2024 7:31:45 AM NAME : TIFFANI ALLISON PID : [id number] : 1985 Gender : Female Race : ORD : [id number] Procedure Date : Nov 25 2024 11:40:55 Edit Date : Dec 13 2024 07:31:47 Diagnosis: NORMAL SINUS RHYTHM NORMAL ECG Confirmed by DAMIEN ORTEGA MD (217) on 12/13/2024 7:31:45 AM Test Reason : Hyperkalemia Location : 54 : 1 H051-32 Overread By : DAMIEN ORTEGA MD Edited By : DAMIEN ORTEGA MD Referred By : , Acquired by : Pura KAYEalCCommunity Regional Medical CenterMagnesium SerPl-mCnc on 72-18-9926Zndqzxyez [Mass/Vol]1.8 mg/dLNormal1.7-2.3CCommunity Regional Medical CenterComment on above:Order Comment: Specimen Type: BLOOD SPECIMEN [facility] Address: [address] [place], [place] [address]Performed By: #### 18337-8, 48154- 2, 2777-1 #### [facility] CLIA [id number] [address] [place] [address] [place] AMERICAPhosphate SerPl-mCncon 95-03-2995Wmkgccpwh [Mass/Vol]2.1 mg/dLLow2.7-4.8CCommunity Regional Medical Center Comment on above:Order Comment: Specimen Type: BLOOD SPECIMEN [facility] Address: [address] [place], [place] [address]Performed By: #### 43306-6, 08424- 2, 2777-1 #### [facility] CLIA [id number] [address] [place] [address] [place] AMERICABasic metabolic 2000 panelon 35-83-8608Plyoc gap [Moles/Vol]10 mmol/LNormal8-15[facility] Comment on above:Order Comment: Specimen Type: BLOOD SPECIMEN [facility] Address: [address] [place], [place] [address]Performed By: #### 78422-8, 277-, #### [facility] CLIA [id number] [address] [place] [address] [place] AMERICACalcium [Mass/Vol]8.3 mg/dL Low8.5-10.2CPremier Health on above:Order Comment: Specimen Type: BLOOD SPECIMEN [facility] Address: [address] [place], [place] [address]Performed By: #### 65526-9, 27701-29, #### [facility] CLIA [id number] [address] [place] [address] [place] AMERICAChloride [Moles/Vol]108 mmol/TPvqv44-711OlohgknduMercy Health Anderson Hospital on above:Order Comment: Specimen Type: BLOOD SPECIMEN [facility] Address: [address] [place], [place] [address]Performed By: #### 27200-8, 27701-29, #### [facility] CLIA [id number] [address] [place] [address] [place] AMERICACO2 [Moles/Vol]24 mmol/L Ihctsx58-11KbejgsnlrMercy Health Anderson Hospital on above:Order Comment: Specimen Type: BLOOD SPECIMEN [facility] Address: [address] [place] [address]Yiekdaogw By: #### 76785-7, 2776-08, #### [facility] CLIA [id number] [address] [place], [place] [address] [place] AMERICACreatinine [Mass/Vol]0.59 mg/dLNormal0.58-0.96[facility] on above:Order Comment: Specimen Type: BLOOD SPECIMEN [facility] Address: [address] [place], [place] [address]Performed By: #### 97105-3, 2777-, #### [facility] CLIA [id number] [address] [place] [address] [place] AMERICACreatinine and Glomerular filtration rate.predicted panel (S/P/Bld)118 mL/min/1.73m???Normal>=60[facility] on above:Order Comment: Specimen Type: BLOOD SPECIMEN [facility] Address: [address] [place], [place] [address]Result Comment: Estimated Glomerular Filtration Rate (eGFR) is calculated using the 2020 CKD-EPI cre atinine equation. This equation utilizes serum creatinine, sex, and age as parameters. The creatinine assay has traceable calibration to isotope dilution- mass spectrometry. Refer to KDIGO guidelines for clinical interpretation. In patients with unstable renal function, e.g. those with acute kidney injury, the eGFR may not accurately reflect actual GFR.Performed By: #### 02145-7, 2777, #### [facility] CLIA [id number] [address] [place] [address] [place] AMERICAGlucose [Mass/Vol]97 mg/dL Wbdniu85-28WxcnopfysMercy Health Anderson Hospital on above:Order Comment: Specimen Type: BLOOD SPECIMEN [facility] Address: [address] [place] [address]Xqjlqu Comment: The [place] Diabetes [employer] (ADA) provides guidance for cutoff [...] Standards of Medical Care in Diabetes 2016, [place] [employer]. Diabetes Care. 2016.39(Suppl 1).Performed By: #### 79344-4, 27701-29, #### [facility] CLIA [id number] [address] [place] [address] [place] AMERICAPotassium [Moles/Vol]3.9 mmol/LNormal3.7-5.1CPremier Health on above:Order Comment: Specimen Type: BLOOD SPECIMEN [facility] Address: [address] [place], [place] [address]Performed By: #### 06165-3, 27701-29, #### [facility] CLIA [id number] [address] [place] [address] [place] AMERICASodium [Moles/Vol]142 mmol/L Jgswpg689-080LapsqtjebMercy Health Anderson Hospital on above:Order Comment: Specimen Type: BLOOD SPECIMEN [facility] Address: [address] [place], [place] [address]Performed By: #### 75204-0, 27701-29, #### [facility] [place] [id number] [address] [place] [address] [place] AMERICAUrea nitrogen [Mass/Vol]6 mg/dLLow7-21[facility] on above:Order Comment: Specimen Type: BLOOD SPECIMEN [facility] Address: [address] [place], [place] [address]Performed By: #### 04043-3, 27701-29, #### [facility] [place] [id number] [address] [place], [place] [address] [place] AMERICACB W Auto Differential panel (Bld)on 13-31-5074Czcccjabu (Bld) [#/Vol]10*3/uLNormal<0.11CPremier Health on above:Order Comment: Specimen Type: BLOOD SPECIMEN [facility] Address: [address] [place], [place] [address]Performed By: #### 88469-9, 27701-29, #### [facility] CLIA [id number] [address] [place], [place] [address] [place] AMERICABasophils/100 WBC (Bld)0.2 % NormalMercy Health Anderson Hospital on above:Order Comment: Specimen Type: BLOOD SPECIMEN [facility] Address: [address] [place], [place] [address]Performed By: #### 10404-7, 27701-29, #### [facility] CLIA [id number] [address] [place], [place] [address] [place] AMERICADifferential cell count method Nom (Bld)AutoNormalCPremier Health on above:Order Comment: Specimen Type: BLOOD SPECIMEN [facility] Address: [address] [place], [place] [address]Performed By: #### 00925-1, 2776-08, #### [facility] CLIA [id number] [address] [place] [address] [place] AMERICAEosinophils (Bld) [#/Vol] 10*3/uLNormal<0.46[facility] on above:Order Comment: Specimen Type: BLOOD SPECIMEN [facility] Address: [address] [place], [place] [address]Performed By: #### 53337-3, 2776-08, #### [facility] CLIA [id number] [address] [place], [place] [address] [place] AMERICAEosinophils/100 WBC (Bld)0.2 %NormalMercy Health [facility] on above:Order Comment: Specimen Type: BLOOD SPECIMEN Ordering Facility: [facility] Address: [address] [place], [place] [address]Performed By: #### 08810-8, 27701-29, #### [facility] CLIA [id number] [address] [place] [address] [place] AMERICAErythrocyte distribution width (RBC) [Ratio]13.6 %Zvsnwb51.5-15.0[facility] on above:Order Comment: Specimen Type: BLOOD SPECIMEN Ordering Facility: [facility] Address: [address] [place], [place] [address]Performed By: #### 81226-9, 2777-1, #### [facility] CLIA [id number] [address] [place] [address] [place] AMERICAHematocrit (Bld) [Volume fraction]37.2 %Jpqati47.0-46.0[facility] on above:Order Comment: Specimen Type: BLOOD SPECIMEN Ordering Facility: [facility] Address: [address] [place], [place] [address]Performed By: #### 69746-9, 2777, #### [facility] CLIA [id number] [address] [place] [address] [place] OF AMERICAHemoglobin (Bld) [Mass/Vol] 12.6 g/eYJlketk18.5-15.5CPremier Health on above:Order Comment: Specimen Type: BLOOD SPECIMEN [facility] Facility[facility] Address: [address] [place], [place] [address]Performed By: #### 58366-1, 2777, #### [facility] CLIA [id number] [address] [place] [address] [place] OF AMERICAImmature granulocytes (Bld) [#/Vol]0.04 10*3/uLNormal<0.10[facility] on above:Order Comment: Specimen Type: BLOOD SPECIMEN Ordering Facility[facility] Address: [address] [place], [place] [address]Performed By: #### 34844-6, 2777-1, #### [facility] CLIA [id number] [address] [place], [place] [address] [place] OF AMERICAImmature granulocytes/100 WBC (Bld)0.4 %NormalMercy Health Anderson Hospital on above:Order Comment: Specimen Type: BLOOD SPECIMEN [facility]ing Facility: [facility] Address: [address] [place], [place] [address]Performed By: #### 50426-2, 2777, #### [facility] CLIA [id number] [address] [place] [address] [place] OF AMERICALymphocytes (Bld) [#/Vol] 0.98 10*3/uLLow1.00-4.00[facility] on above:Order Comment: Specimen Type: BLOOD SPECIMEN [facility] Facility[facility] Address: [address] [place], [place] [address]Performed By: #### 38439-2, 27701-29, #### [facility] CLIA [id number] [address] [place] [address] [place] OF AMERICALymphocytes/100 WBC (Bld) 10.0 %NormalMercy Health Anderson Hospital on above:Order Comment: Specimen Type: BLOOD SPECIMEN [facility] Address: [address] [place], [place] [address]Performed By: #### 26076-6, 27701-29, #### [facility] [place] [id number] [address] [place], [place] [address] [place] OF AMERICAMCH (RBC) [Entitic mass]29.1 zeUaifhl92.0-34.0[facility] on above:Order Comment: Specimen Type: BLOOD SPECIMEN [facility] Address: [address] [place], [place] [address]Performed By: #### 08970-5, 2777, #### [facility] CLIA [id number] [address] [place], [place] [address] [place] [facility]OSPITAL CENTERMCHC (RBC) [Mass/Vol]33.9 g/pCLtjixo54.5-36.0[facility] on above:Order Comment: Specimen Type: BLOOD SPECIMEN [facility] Address: [address] [place], [place] [address]Performed By: #### 93763-1, 2777, #### [facility] CLIA [id number] [address] [place] [address] [place] AMERICAMCV (RBC) [Entitic vol]85.9 wTDwqumr83.0-100.0[facility] on above:Order Comment: Specimen Type: BLOOD SPECIMEN [facility] Address: [address] [place], [place] [address]Performed By: #### 01137-7, 27701-29, #### [facility] CLIA [id number] [address] [place] [address] [place] AMERICAMonocytes (Bld) [#/Vol]0.86 10*3/uLNormal<0.87[facility] on above:Order Comment: Specimen Type: BLOOD SPECIMEN [facility] Address: [address] [place], [place] [address]Performed By: #### 61135-9, 27701-29, #### [facility] CLIA [id number] [address] [place] [address] [place] AMERICAMonocytes/100 WBC (Bld)8.8 % NormalMercy Health Anderson Hospital on above:Order Comment: Specimen Type: BLOOD SPECIMEN [facility] Address: [address] [place], [place] [address]Performed By: #### 45868-6, 27701-29, #### [facility] CLIA [id number] [address] [place] [address] [place] AMERICANeutrophils (Bld) [#/Vol] 7.86 10*3/uLHigh1.45-7.50[facility] on above:Order Comment: Specimen Type: BLOOD SPECIMEN [facility] Address: [address] [place], [place] [address]Performed By: #### 13288-1, 2777-1, #### [facility] CLIA [id number] [address] [place] [address] [place] AMERICANeutrophils/100 WBC (Bld) 80.4 %NormalMercy Health Anderson Hospital on above:Order Comment: Specimen Type: BLOOD SPECIMEN [facility] Address: [address] [place], [place] [address]Performed By: #### 61547-6, 2777, #### [facility] CLIA [id number] [address] [place] [address] [place] AMERICANucleated RBC (Bld) [#/Vol] 10*3/uLNormal<0.01[facility] on above:Order Comment: Specimen Type: BLOOD SPECIMEN [facility] Address: [address] [place], [place] [address]Performed By: #### 61355-8, 2777, #### [facility] CLIA [id number] [address] [place] [address] [place] AMERICANucleated RBC/100 WBC (Bld) [Ratio]0.0 /100 WBCNormalCPremier Health on above:Order Comment: Specimen Type: BLOOD SPECIMEN [facility] Address: [address] [place], [place] [address]Performed By: #### 04686-5, 27701-29, #### [facility] CLIA [id number] [address] [place], [place] [address] [place] AMERICAPlatelet mean volume (Bld) [Entitic vol]9.8 fLNormal9.0-12.7CPremier Health on above: Order Comment: Specimen Type: BLOOD SPECIMEN [facility] Address: [address] [place], [place] [address]Performed By: #### 41343-2, 2777-1, 96151-1 #### [facility] CLIA [id number] [address] [place] [address] [place] AMERICAPlatelets (Bld) [#/Vol]256 10*3/hNGmxofb219-329CtzijmdcjMercy Health Anderson Hospital on above:Order Comment: Specimen Type: BLOOD SPECIMEN [facility] Address: [address] [place], [place] [address]Performed By: #### 28673-8, 2777-1, #### [facility] CLIA [id number] [address] [place] [address] [place] AMERICARBC (Bld) [#/Vol]4.33 10*6/uLNormal3.90-5.20[facility] on above:Order Comment: Specimen Type: BLOOD SPECIMEN [facility] Address: [address] [place], [place] [address]Performed By: #### 29120-6, 2777-1, #### [facility] CLIA [id number] [address] [place] [address] [place] AMERICAWBC (Bld) [#/Vol]9.78 10*3/uLNormal3.70-11.00[facility] on above:Order Comment: Specimen Type: BLOOD SPECIMEN [facility] Address: [address] [place], [place] [address]Performed By: #### 45658-7, 2777-1, #### [facility] CLIA [id number] [address] [place] [address] OF [facility] CITY HOSPITALCONSULTon [id number] HNO ID: [id number] Author: YAN RANDALL MD Service: General Surgery Author Type: Resident Type: Consults Filed: 11/24/2024 08:34 Note Text: Bariatric Surgery Pager: [phone] SURGERY CONSULT PROGRESS NOTE Patient Name: Tiffani Allison Date: November 24, 2024 ASSESSMENT AND [...] MD General Surgery Resident Bariatric Surgery Pager: [phone] On nights (6 pm to 6 am) and on Weekends/Holidays, please page the on-call pager: [phone] 6:20 AM, 11/24/2024 --- INTERVAL: No acute [...] ml Labs Reviewed Imaging Reviewed No new imaging.NormalChillicothe [facility] PROGon [id number] PROLUCIANONO ID: [id number] Author: JOSE MATTHEWS MD Service: Anesthesiology Author Type: Resident Type: Consult Progress Note Filed: 11/25/2024 13:37 Note Text: Attestation signed by Jose Matthews MD at 11/25/2024 1:37 PM Attending Note I evaluated the patient and personally participated in the bermudez components. I agree with the resident's findings and plan with the following revisions and/or additions: With ketamine coming off today, will increase oxycodone 5-10 mg to 10-15 mg Signature: Jose Matthews MD Date: 11/25/2024 Time: 1:36 PM APS POST-OPERATIVE PROGRESS NOTE SERVICE DATE: 11/24/2024 : 1985 SERVICE TIME: 10:28 AM SURGERY DATE: 11/23/2024 PRIMARY SERVICE: General Surgery Subjective CHIEF COMPLAINT: Post-operative pain HPI: Tiffani Allison is a 39 year old female who is POD # 1 S/P laparoscopic paraesophageal hernia repair, laparoscopic converted to open conversion of gastric sleeve to a Maria Antonia en Y gastric bypass, open right and [...] IV Pain medications, PO Pain medications, and CLOTH WORKER bolus Patient Satisfied with Pain Control: No Overnight Pain Interventions: Patient started on ketamine infusion at 0.3mg/kg/hr ROS MACHINE TAPER: Negative for headaches, negative for seizures, negative [...] (Ketalar) 0.3 mg/kg/hr (Adjusted) INTRAVENOUS CONTINUOUS fentaNYL CLOTH WORKER 20 mcg/mL in NaCl 0.9% 100 mL [...] Count 256 11/24/2024 Medication and Non-Pharmacologic VTE Prophylaxis/Anticoagulants Anticoagulant AND Antiplatelet Medications (From admission, onward) Start Dose Route Frequency Last Action Ordered Stop 11/24/24 1000 enoxaparin 40 mg injection (LOVENOX) (enoxaparin injection (LOVENOX)) 40 mg SUBCUTANEOUS EVERY 12 HOURS Given, 11/24 1030 11/24/24 0943 -- 11/23/241999 vte pharmacologic prophylaxis contraindicated (ut,vt) 11/23/241999 pneumatic compression sleeve(s) ([place]) 11/23/241999 activity - mobilize patient ([place]) Assessment/Plan Morbid Obesity Class 3 Tiffani Allison is a 39 year old female who is being seen as described in the HPI above. Patient having increased pain this AM due to CLOTH WORKER occlusion (now fixed). Has not been using oral meds yet. Current Pain Medications Ordered: (more content not included)...NormalSelect Medical Specialty Hospital - ColumbusMagnesium SerPl-mCncon 90-33-0128Mbwmqarlu [Mass/Vol]2.2 mg/dL Normal1.7-2.3CMcKitrick Hospitalment on above:Order Comment: Specimen Type: BLOOD SPECIMEN Ordering Facility[facility] Address: [address] [place] [address]Csfkgxsoe By: #### 91760-0, 2777-1, 66052-9 #### [facility] CLIA [id number] [address] [place], [place] [address] [place] AMERICAPT EDon [id number] EDHNO ID: [id number] Author: MILANA SAEZ DTR Service: Nutrition Therapy Author Type: Slot Floor Supervisor Type: Patient Education Filed: 11/24/2024 16:13 Note Text: NUTRITION THERAPY PATIENT EDUCATION SERVICE DATE: 11/24/2024 SERVICE TIME: 1000 TOPIC: Diet: Post-Bariatric Surgery LEARNING ASSESSMENT Individuals Assessed: Patient Preferred Learning Method: No Preference Barriers to Learning: None Evident LEARNING RESPONSE Instruction Provided to: Patient Patient / Family Response: Verbalizes Understanding Method of Instruction: Written instruction/Handouts Verbal instruction Material(s) Provided to Patient: Education Materials Provided Nutrition Education [facility]: Post-Bariatric Surgery Nutrition MNT Billing: $ Routine Care : 2 units SIGNATURE: Milana Saez DTR PATIENT NAME: Tiffani Allison DATE: November 24, 2024 TIME: 4:12 PM PAGER:NormalSelect Medical Specialty Hospital - ColumbusPhosphate SerPl-mCncon [id number] [Mass/Vol]3.0 mg/dLNormal2.7-4.8CCommunity [facility] Medical Center Comment on above:Order Comment: Specimen Type: BLOOD SPECIMEN [facility] Address: [address] [place], [place] [address]Performed By: #### 17497-6, 2777-, #### [facility] [place] [id number] [address] [place], [place] [address] [place] AMERICAANES POSTPROC EVALon [id number] POSTPROC EVALHNO ID: [id number] Author: LESA STARKEY MD Service: ? Author Type: Anesthesiologist Type: Anesthesia Postprocedure Evaluation Filed: 11/23/2024 17:36 Note Text: POST ANESTHESIA EVALUATION NOTE : 1985 Procedure Summary Date: 11/23/24 Room / Location: [address] Anesthesia Start: 724 Anesthesia Stop: 1731 Procedures: HERNIORRHAPHY INCISIONAL ABDOMINAL RECURRENT REDUCIBLE GREATER THAN 10cm (Abdomen) LAPAROSCOPIC RPR PARAESOPHAGEAL HERNIA W/O FUNDOPLASTY W/ MESH (Abdomen) LAPAROSCOPIC GASTRIC RESTRICTIVE SURG W/ BYPASS AND MARIA ANTONIA-EN-Y 150CM OR LESS/ SLEEVE TO BYPASS (Abdomen) Diagnosis: Preoperative examination Hiatal hernia Morbid obesity (HCC) (Preoperative examination [Z01.818]) (Hiatal hernia [K44.9]) (Morbid obesity (HCC) [E66.01]) Surgeons: Rocio Jeff MD; Ayse Grissom MD Responsible Provider: Lesa Starkey MD [...] November 23, 2024 TIME: 5:36 PM CSN: [id number] Hospital PRE-OPon [id number] PRE-OPHNO ID: [id number] Author: DELORES ROQUE MD Service: ? Author Type: Physician Type: Anesthesia Preprocedure Evaluation Filed: 11/23/2024 07:27 Note Text: ANESTHESIOLOGY DAY OF SURGERY NOTE : 1985 Procedure Information Date/Time: 11/23/24 0730 Procedures: HERNIORRHAPHY INCISIONAL ABDOMINAL RECURRENT REDUCIBLE GREATER THAN 10cm (Abdomen) LAPAROSCOPIC RPR PARAESOPHAGEAL HERNIA W/O FUNDOPLASTY W/ MESH (Abdomen) LAPAROSCOPIC GASTRIC RESTRICTIVE SURG W/ BYPASS AND MARIA ANTONIA-EN-Y 150CM OR LESS/ SLEEVE TO BYPASS (Abdomen) Location: [facility] Surgeons: Rocio Jeff MD; Ayse Grissom MD Estimated body mass index is [...] and consent discussed: yes. Patient / Responsible Democrat agrees to proceed: yes Patient / Surrogate [...] none. Vitals Value Taken Time BP 141/74 11/23/24 0630 Pulse 86 11/23/24 0630 Resp 18 11/23/24 0630 Temp 36 ?C (96.8 ?F) 11/23/24 0630 SpO2 98 % 11/23/24 0630 Facility-Administered Medications as of 11/23/2024 Medication Dose [...] obtained within 48 hours of Surgery/Procedure. SIGNATURE: Delores Roque MD PATIENT NAME: Tiffani Allison DATE: November 23, 2024 TIME: 7:27 AM CSN: [id number] Health System [facility] Campus OP NOTon [id number] OP NOTHNO ID: [id number] Author: MARCOS SANCHEZ MD Service: General Surgery Author Type: Resident Type: Brief Op Note Filed: 11/23/2024 17:04 Note Text: GENERAL SURGERY BRIEF OP NOTE LOG ID: [id number] Surgery/Procedure Date: 11/23/2024 Incision/Procedure Start Time: 8:33 AM Incision Close/Procedure End Time: 4:58 PM Surgeon(s) and Rivet Driver(s): Surgeons and Role: Panel 1: * Rocio Jeff MD - Primary * Marcos Sanchez MD - Resident - Assisting Panel 2: * Ayse Grissom MD - Primary * Noel Fitzgerald MD - Fellow No Additional Staff Procedure(s): Procedure(s): HERNIORRHAPHY INCISIONAL ABDOMINAL RECURRENT REDUCIBLE GREATER THAN 10cm LAPAROSCOPIC RPR PARAESOPHAGEAL HERNIA W/O FUNDOPLASTY W/ MESH LAPAROSCOPIC GASTRIC RESTRICTIVE SURG W/ BYPASS AND MARIA ANTONIA-EN-Y 150CM OR LESS/ SLEEVE TO BYPASS Laparoscopic paraesphageal hernia repair Laparoscopic converted to open conversion of gastric sleeve to a Maria Antonia en Y gastric bypass Open right myofascial advancement flap Open left myofascial advancement flap Abdominal wall reconstruction with mesh Direct bilateral TAP block Anesthesia: General Findings: Inferior midline hernia defect associated with previous Pfannensteil incisions; dilated inferior epigastric pedicles; please see operative report for full details Tubes/Drains: 19F MERCED drains x 2 on left overlying drain; 19F MERCED drain on right within the subcutaneous space [...] hernia [K44.9] * Morbid obesity (HCC) [E66.01] Post-Op/Post-Procedure Diagnosis: Same SIGNATURE: Marcos Sanchez MD PATIENT NAME: Tiffani Allison DATE: November 23, 2024 TIME: 4:58 PM PAGER/CONTACT #: [phone] County Community Hospital OP NOTHNO ID: [id number] Author: NOEL FITZGERALD MD Service: General Surgery Author Type: Fellow Type: Brief Op Note Filed: 11/23/2024 15:58 Note Text: BARIATRIC SURGERY BRIEF OP NOTE LOG ID: [id number] Surgery/Procedure Date: 11/23/2024 Incision/Procedure Start Time: 8:33 AM Incision Close/Procedure End Time: 3:56 PM Surgeon(s) and Rivet Driver(s): Surgeons and Role: Panel 1: * Rocio Jeff MD - Primary * Marcos Sanchez MD - Resident - Assisting Panel 2: * Ayse Grissom MD - Primary * Noel Fitzgerald MD - Fellow No Additional Staff Procedure(s): Procedure(s): HERNIORRHAPHY INCISIONAL ABDOMINAL RECURRENT REDUCIBLE GREATER THAN 10cm LAPAROSCOPIC RPR PARAESOPHAGEAL HERNIA W/O FUNDOPLASTY W/ MESH LAPAROSCOPIC GASTRIC RESTRICTIVE SURG W/ BYPASS AND MARIA ANTONIA-EN-Y 150CM OR LESS/ SLEEVE TO BYPASS Anesthesia: General Findings: Lap hiatal hernia repair with posterior cruroplasty x3 and single anterior stitch. Lap GJ, converted to open for JJ, single 60 mm stapler for JJ, common enterotomy oversewn. 100 cm maria antonia limb, 60 cm BP limb. Please see operative report for full details Drains: none for bariatric surgery IV Fluids: Per anesthesia report Estimated Blood Loss: 20 mls Estimated Urine Output: Per anesthesia report Specimens: * No specimens in log * Wound Classification: Class 2, operative wound clean-contaminated, gastrointestinal/biliary tract entered without significant spillage Complications: None Pre-Op/Pre-Procedure Diagnosis: Pre-Op Diagnosis Codes: * Preoperative examination [Z01.818] * Hiatal hernia [K44.9] * Morbid obesity (HCC) [E66.01] Post-Op/Post-Procedure Diagnosis: Same SIGNATURE: Noel Fitzgerald MD PATIENT NAME: Tiffani Allison DATE: November 23, 2024 TIME: 3:56 PM PAGER/CONTACT #: [phone] HealthCare Main Campus CONFIRM BLOOD TYPEon [id number]dams County Hospital on above:Order Comment: Specimen Type: BLOOD SPECIMEN [facility] Address: [address] [place], [place] [address]Performed By: #### 00018-9 #### [facility] CLIA [id number] [address] [place] [address] [place] [address] [place] AMERICARh Nom (Bld)NegativeNormal [facility] on above:Order Comment: Specimen Type: BLOOD SPECIMEN [facility] Address: [address] [place], [place] [address]Performed By: #### 29401-7 #### [facility] MATIAS [id number] [address] [place] [address] [address]CONSULTon [id number] HNO ID: [id number] Author: JOSE MATTHEWS MD Service: Pain Management Author Type: Resident Type: Consults Filed: 11/24/2024 15:55 Note Text: Attestation signed by Jose Matthews MD at 11/24/2024 3:55 PM Attending Note I evaluated the patient and personally participated in the bermudez components. I agree with the resident's findings and plan with the following revisions and/or additions: CLOTH WORKER was occluding per patient and loved one in room. Nursing arranging to change CLOTH WORKER. Continue ketamine for 48 hour course total Signature: Jose Matthews MD Date: 11/24/2024 Time: 3:48 PM INITIAL CONSULT ACUTE PAIN MANAGEMENT SERVICE SERVICE DATE: 11/23/2024 SERVICE TIME: 2025 SERVICE REQUESTING CONSULT: General Surgery OPINION/ADVICE REGARDING: Postoperative pain Subjective CHIEF COMPLAINT: Postoperative pain HPI: Tiffani Allison is a 39 year old female who is POD # 0 S/P laparoscopic paraesophageal hernia repair, laparoscopic converted to open conversion of gastric sleeve to a Maria Antonia en Y gastric bypass, open right and [...] IV Pain medications, PO Pain medications, and CLOTH WORKER bolus Patient does not have a history [...] in NaCl (is (more content not included)... NormalAshtabula County Medical Center NOon [id number] NOHNO ID: [id number] Author: AYSE GRISSOM MD Service: General Surgery Author Type: Physician Type: Operative Report Filed: 12/18/2024 08:38 Note Text: OPERATIVE/PROCEDURE REPORT LOG ID: [id number] Surgery/Procedure Date: 11/23/2024 Incision/Procedure Start Time: 8:33 AM Incision Close/Procedure End Time: 5:03 PM Surgeon(s)/Proceduralist(s) and Rivet Driver(s): Surgeons and Role: Panel 1: * Rocio Jeff MD - Primary * Marcos Sanchez MD - Resident - Assisting * Esha Ludwig MD - Resident - Assisting Panel 2: * Ayse Grissom MD - Primary * Noel Fitzgerald MD - Fellow Procedure(s): 1. Laparoscopic paraesophageal hernia repair 2. Laparoscopic conversion of sleeve gastrectomy to Maria Antonia-en-Y gastric bypass (100-cm antecolic antegastric Maria Antonia limb, and 60cm biliopancreatic limb). 3. Conversion [...] 4. Paraesophageal hernia consisting of proximal sleeve Post-Op/Post-Procedure Diagnosis: Same Anesthesia: General Operative Indication: Tiffani [...] a gastric pouch, end-to-side gastrojejunostomy, 100-cm antecolic-antegastric Maria Antonia limb, stapled side to side enteroenterostomy. 2. [...] gastric pouch was fashi (more content not included)...NormalSelect Medical Specialty Hospital - ColumbusOPERATIVE NO HNO ID: [id number] Author: ROCIO JEFF MD Service: General Surgery Author Type: Physician Type: Operative Report Filed: 11/26/2024 08:55 Note Text: [facility] - Operative Report [id number] [address] [place] TIFFANI ALLISON : 1985 AGE: 39. SEX: F PATIENT TYPE: I HOSP [facility]: [facility] LOCATION: [id number] ATTENDING PHYSICIAN: Rocio Jeff M.D. CSN NUMBER: [id number] DATE OF SURGERY/PROCEDURE: 11/23/2024 INCISION/PROCEDURE START TIME: 8:33 AM INCISION CLOSE/PROCEDURE END TIME: 5:03 PM PREOPERATIVE DIAGNOSIS: Incisional hernia and paraesophageal hernia. POSTOPERATIVE DIAGNOSIS: Incisional hernia and paraesophageal hernia. SURGEON: Rocio Jeff M.D. BUILDING TRADES INSTRUCTOR: Dr. Marcos Sanchez. SURGERY/PROCEDURE: Open left posterior myofascial component separation, open right posterior myofascial component separation, and incisional hernia repair with mesh. ANESTHESIA: General endotracheal. ESTIMATED BLOOD LOSS: 25 mL. COMPLICATIONS: None apparent. PANEL 1: Ayse Grissom M.D. ([place]) with a laparoscopic paraesophageal hernia repair and conversion to Maria Antonia-en-Y gastric bypass, which will be dictated in [...] to the operation, we recommended conversion to Maria Antonia-en-Y gastric bypass with weight loss and subsequent hernia repair. However, the patient was very symptomatic from the hernia and was strongly in favor of repairing both at the same time, so therefore we offered her combination surgery. As mentioned previously, Dr. Grissom did the laparoscopic paraesophageal hernia repair with conversion to Maria Antonia-en-Y gastric bypass, which was dictated separately and [...] the anterior fascia in (more content not included)...NormalPremier Health [facility] BLOOD GASES WITH IONIZED MAGNESIUMon [id number] DEFICIT, VENOUS>-2Cguftl-4-9YcyukldpjAvita Health System Galion Hospitalment on above:Order Comment: Specimen Type: BLOOD SPECIMEN [facility] Address: [address] [place], [place] [address]Performed By: #### 85266-4, 2777, #### [facility] CLIA [id number] [address] [place] [address] [place] AMERICACalcium.ionized (Bld) [Mass/Vol]1.04 mmol/LLow1.08-1.30[facility] on above: Order Comment: Specimen Type: BLOOD SPECIMEN [facility] Address: [address] [place], [place] [address]Performed By: #### 56912-5, 2777, #### [facility] CLIA [id number] [address] [place] [address] [place] AMERICACalcium.ionized adjusted to pH 7.4 (BldA) [Moles/Vol]1.04 mmol/LLow1.08-1.30[facility] Comment on above:Order Comment: Specimen Type: BLOOD SPECIMEN [facility] Address: [address] [place], [place] [address]Performed By: #### 34463-6, 27701-29, #### [facility] CLIA [id number] [address] [place] [address] [place] AMERICACarboxyhemoglobin (BldV) [Mass fraction]2.1 %High0.0-2.0[facility] on above:Order Comment: Specimen Type: BLOOD SPECIMEN [facility] Address: [address] [place], [place] [id number] Comment: Carboxyhemoglobin Reference Range for Smokers: 2.0-8.0%Performed By: #### 82507-2, 2776-08, #### [facility] CLIA [id number] [address] [place], [place] [address] [place] AMERICACO2 (BldV) [Partial pressure]39 mm[Hg]Cac76-41JdbvlirmqMercy Health Anderson Hospital on above:Order Comment: Specimen Type: BLOOD SPECIMEN [facility] Address: [address] [place], [place] [address]Performed By: #### 16371-2, 2776-08, #### [facility] CLIA [id number] [address] [place] [address] [place] AMERICACO2 adjusted to patient's actual temperature (BldV) [Partial pressure]39 wiHuArx08-75SywsjgjkuMercy Health Anderson Hospital on above:Order Comment: Specimen Type: BLOOD SPECIMEN [facility] Address: [address] [place], [place] [address]Performed By: #### 44381-4, 2776-08, #### [facility] CLIA [id number] [address] [place], [place] [address] [place] AMERICAGlucose [Mass/Vol]166 mg/dL Tmcm08-748RzmufldusMercy Health Anderson Hospital on above:Order Comment: Specimen Type: BLOOD SPECIMEN [facility] Address: [address] [place], [place] [address]Performed By: #### 31204-8, 2776-08, #### [facility] CLIA [id number] [address] [place] [address] [place] AMERICAHCO3 (Bld) [Moles/Vol]24 mmol/YJovdng46-78VofcbtmetMercy Health Anderson Hospital on above:Order Comment: Specimen Type: BLOOD SPECIMEN [facility] Address: [address] [place], [place] [address]Performed By: #### 20042-3, 27701-29, #### [facility] CLIA [id number] [address] [place] [address] [place] AMERICAHematocrit (Bld) [Volume fraction]40.2 %Ibviav50.0-46.0[facility] on above:Order Comment: Specimen Type: BLOOD SPECIMEN [facility] Address: [address] [place], [place] [address]Performed By: #### 71613-7, 27701-29, #### [facility] CLIA [id number] [address] [place] [address] [place] AMERICAHemoglobin (Bld) [Mass/Vol] 13.1 g/kWDeoxst36.5-15.5CPremier Health on above:Order Comment: Specimen Type: BLOOD SPECIMEN [facility] Address: [address] [place], [place] [address]Performed By: #### 08987-1, 2776-08, #### [facility] CLIA [id number] [address] [place], [place] [address] [place] AMERICALactate [Moles/Vol]1.8 mmol/LNormal0.5-2.2CPremier Health on above:Order Comment: Specimen Type: BLOOD SPECIMEN [facility] Address: [address] [place], [place] [address]Performed By: #### 19110-4, 27701-29, #### [facility] CLIA [id number] [address] [place], [place] [address] [place] AMERICAMagnesium [Moles/Vol]0.63 mmol/LHigh0.45-0.60[facility] on above:Order Comment: Specimen Type: BLOOD SPECIMEN [facility] Address: [address] [place], [place] [address]Performed By: #### 36281-5, 27701-29, #### [facility] CLIA [id number] [address] [place] [address] [place] AMERICAMethemoglobin (Bld) [Mass fraction]1.2 %Normal0.0-1.5CPremier Health on above:Order Comment: Specimen Type: BLOOD SPECIMEN [facility] Address: [address] [place], [place] [address]Performed By: #### 62927-4, 27701-29, #### [facility] CLIA [id number] [address] [place] [address] [place] AMERICAOxygen (BldV) [Partial pressure]115 mm[Hg]Ngtz01-77SmqdgygobMercy Health Anderson Hospital on above:Order Comment: Specimen Type: BLOOD SPECIMEN [facility] Address: [address] [place], [place] [address]Performed By: #### 53684-5, 27701-29, #### [facility] CLIA [id number] [address] [place] [address] [place] AMERICAOxygen adjusted to patient's actual temperature (BldV) [Partial pressure]115 mmZrJsdf25-26AxnsbjhnpMercy Health Anderson Hospital on above:Order Comment: Specimen Type: BLOOD SPECIMEN [facility] Address: [address] [place], [place] [address]Performed By: #### 66866-7, 27701-29, #### [facility] CLIA [id number] [address] [place] [address] [place] OF AMERICAOxygen saturation in Venous blood99 %Rxaj36-60OxqvhcrrfMercy Health Anderson Hospital on above:Order Comment: Specimen Type: BLOOD SPECIMEN [facility] Address: [address] [place], [place] [address]Performed By: #### 24688-2, 2777-1, #### [facility] CLIA [id number] [address] [place] [address] [place] AMERICAOxyhemoglobin (BldV) [Mass fraction]95 %Fvhe12-33PhcjfbzgeMercy Health Anderson Hospital on above:Order Comment: Specimen Type: BLOOD SPECIMEN [facility] Address: [address] [place], [place] [address]Performed By: #### 62916-1, 2777-1, #### [facility] CLIA [id number] [address] [place] [address] [place] AMERICApH (BldV)7.40 [pH]Normal 7.32-7.42[facility] on above:Order Comment: Specimen Type: BLOOD SPECIMEN [facility] Address: [address] [place], [place] [address]Performed By: #### 47240-2, 2777-1, #### [facility] CLIA [id number] [address] [place] [address] [place] AMERICApH adjusted to patient's actual temperature (BldV)7.11Jwxbyz8.32-7.42[facility] on above:Order Comment: Specimen Type: BLOOD SPECIMEN [facility] Address: [address] [place], [place] [address]Performed By: #### 87228-4, 2777-, #### [facility] CLIA [id number] [address] [place] [address] [place] AMERICAPotassium [Moles/Vol]4.4 mmol/LNormal3.5-5.0[facility] on above:Order Comment: Specimen Type: BLOOD SPECIMEN [facility] Address: [address] [place], [place] [address]Performed By: #### 83671-3, 2777-1, #### [facility] CLIA [id number] [address] [place] [address] [place] AMERICASodium [Moles/Vol]137 mmol/L Mbeldw507-686WzfznwalySelect Medical Specialty Hospital - ColumbusComment on above:Order Comment: Specimen Type: BLOOD SPECIMEN Order[facility] Address: [address] [place], [place] [address]Francisco [place]ONEW [place], [place] [address]Bnilrkzth By: #### 80594-8, 2777-1, #### [facility] CLIA [id number] [address] [place], [place] [address] [place] AMERICACNPNon [id number] Telephone (JENNIFERI) TIFFANI ALLISON ([id number]) 1985 F Date Time Provider Department 11/09/24 KRISTI WATTS During your visit today, we recorded the following information about you: Kristi Watts RN 11/09/2024 1:24 PM Signed [facility] SPECIALTY CARE COORDINATION SURGERY APPROVAL CALL Received e-mail confirmation of insurance approval for bariatric surgery.Pre-operative call placed to the patient, this RN spoke with patient and agreed upon a surgery date of November 23 2024. Surgical episode request sent to [facility] surgery scheduling. Patient understands that the surgery type is Gastric Bypass as approved by insurance. Creatinine level 0.67 Patient instructed to start pre-op 800 calorie total protein liquid diet Atkins (5) daily beginning 2 weeks prior to surgery. - Stop all ASA and NSAID products, [place] 3 fish oil, herbal products such as [...] - Ale video assigned. - Introduced Bariatric day care home mother Yes - All questions and concerns addressed and patient verbalized understanding. - Patient case reviewed. All nutrition appointments completed, psychology clearance obtained, surgeon visit and procedure type verified, medical optimization obtained and all testing complete. Does patient have Con ABO? Yes, patient has Con ABO. [facility] [employer] - a research program mentioned to [...] Reaction(s): seizures Date Reviewed: 11/06/2024 Reviewed by: Bela Banegas PA-C - Fully Assessed Reason for [...] sinus tachycardia (HCC) [ (more content not included)...Normal [facility] Hospital - ColumbusActivated partial thromboplastin time (aPTT) in platelet poor plasma by coagulation aon 67-22-4024eCIP Coag (PPP) [Time] Activated partial thromboplastin time (aPTT) in platelet poor plasma by coagulation a23.0-32.4FDetwiler Memorial HospitalBasophils Auto (Bld) [#/Vol]on 36-16-4698Sxrolhkjs (Bld) [#/Vol]Automated basophil count<0.11 [facility] HospitalBasophils/100 WBC Auto (Bld)on 11-06-2024 Basophils/100 WBC (Bld)Automated basophil %[facility] Blood manual differential comment interpretation narrativeon 94-88-1016Bkwkca differential comment Asa (Bld) [Interp]Blood manual differential comment interpretation narrativeFirMiddletown HospitalCBC W Auto Differential panel (Bld)on 78-50-0823Wjcwzpfvd (Bld) [#/Vol]0.04 10*3/uLNormal<0.11CPremier Health on above:Order Comment: Specimen Type: BLOOD SPECIMEN [facility] Address: [address] [place], [place] [address]Performed By: #### 81909-0, 27701-29, #### [facility] CLIA [id number] [address] [place] [address] [place] AMERICABasophils/100 WBC (Bld)0.4 % NormalMercy Health Anderson Hospital on above:Order Comment: Specimen Type: BLOOD SPECIMEN [facility] Address: [address] [place], [place] [address]Performed By: #### 10699-7, 27701-29, #### [facility] CLIA [id number] [address] [place] [address] [place] AMERICADifferential cell count method Nom (Bld)AutoNormalCPremier Health on above:Order Comment: Specimen Type: BLOOD SPECIMEN [facility] Address: [address] [place], [place] [address]Performed By: #### 00267-4, 27701-29, #### [facility] CLIA [id number] [address] [place], [place] [address] [place] AMERICAEosinophils (Bld) [#/Vol] 0.12 10*3/uLNormal<0.46[facility] on above:Order Comment: Specimen Type: BLOOD SPECIMEN [facility] Address: [address] [place], [place] [address]Performed By: #### 65229-3, 27701-29, #### [facility] CLIA [id number] [address] [place], [place] [address] [place] AMERICAEosinophils/100 WBC (Bld)1.1 %NormalMercy Health Anderson Hospital on above:Order Comment: Specimen Type: BLOOD SPECIMEN [facility] Address: [address] [place], [place] [address]Performed By: #### 36009-0, 27701-29, #### [facility] CLIA [id number] [address] [place], [place] [address] [place] AMERICAErythrocyte distribution width (RBC) [Ratio]13.9 %Ppojif38.5-15.0[facility] on above:Order Comment: Specimen Type: BLOOD SPECIMEN [facility] Address: [address] [place], [place] [address]Performed By: #### 16092-1, 27701-29, #### [facility] CLIA [id number] [address] [place] [address] [place] AMERICAHematocrit (Bld) [Volume fraction]43.4 %Nzbstk47.0-46.0[facility] on above:Order Comment: Specimen Type: BLOOD SPECIMEN [facility] Address: [address] [place], [place] [address]Performed By: #### 63993-2, 27701-29, #### [facility] CLIA [id number] [address] [place], [place] [address] [place] AMERICAHemoglobin (Bld) [Mass/Vol] 14.5 g/dOJnwdes61.5-15.5CPremier Health on above:Order Comment: Specimen Type: BLOOD SPECIMEN [facility] Address: [address] [place], [place] [address]Performed By: #### 55234-0, 2777-1, #### [facility] CLIA [id number] [address] [place], [place] [address] [place] AMERICAImmature granulocytes (Bld) [#/Vol]0.04 10*3/uLNormal<0.10[facility] on above:Order Comment: Specimen Type: BLOOD SPECIMEN [facility] Address: [address] [place], [place] [address]Performed By: #### 86251-6, 2777, #### [facility] CLIA [id number] [address] [place], [place] [address] [place] AMERICAImmature granulocytes/100 WBC (Bld)0.4 %NormalMercy Health Anderson Hospital on above:Order Comment: Specimen Type: BLOOD SPECIMEN [facility] Address: [address] [place], [place] [address]Performed By: #### 21612-9, 2777, #### [facility] CLIA [id number] [address] [place], [place] [address] [place] AMERICALymphocytes (Bld) [#/Vol] 2.51 10*3/uLNormal1.00-4.00[facility] on above:Order Comment: Specimen Type: BLOOD SPECIMEN [facility] Address: [address] [place], [place] [address]Performed By: #### 13792-0, 27701-29, #### [facility] CLIA [id number] [address] [place], [place] [address] [place] AMERICALymphocytes/100 WBC (Bld) 22.3 %NormalMercy Health Anderson Hospital on above:Order Comment: Specimen Type: BLOOD SPECIMEN [facility] Address: [address] [place], [place] [address]Performed By: #### 99678-8, 277-, #### [facility] CLIA [id number] [address] [place] [address] (RBC) [Entitic mass]28.3 ecFsneti22.0-34.0[facility] on above:Order Comment: Specimen Type: BLOOD SPECIMEN [facility] Address: [address] [place], [place] [address]Performed By: #### 16173-9, 27701-29, #### [facility] CLIA [id number] [address] [place], [place] [address] (RBC) [Mass/Vol]33.4 g/gLIqttth76.5-36.0[facility] on above:Order Comment: Specimen Type: BLOOD SPECIMEN [facility] Address: [address] [place], [place] [address]Performed By: #### 32516-8, 27701-29, #### [facility] CLIA [id number] [address] [place] [address] (RBC) [Entitic vol]84.8 qWHtyxdi47.0-100.0[facility] on above:Order Comment: Specimen Type: BLOOD SPECIMEN [facility] Address: [address] [place], [place] [address]Performed By: #### 91077-1, 27701-29, #### [facility] CLIA [id number] [address] [place], [place] [address]Monocytes (Bld) [#/Vol]0.78 10*3/uLNormal<0.87[facility] on above:Order Comment: Specimen Type: BLOOD SPECIMEN [facility] Address: [address] [place], [place] [address]Performed By: #### 59946-9, 27701-29, #### [facility] CLIA [id number] [address] [place] [address] [place] AMERICAMonocytes/100 WBC (Bld)6.9 % NormalMercy Health Anderson Hospital on above:Order Comment: Specimen Type: BLOOD SPECIMEN [facility] Address: [address] [place], [place] [address]Performed By: #### 51568-2, 27701-29, #### [facility] CLIA [id number] [address] [place] [address] [place] AMERICANeutrophils (Bld) [#/Vol] 7.76 10*3/uLHigh1.45-7.50[facility] on above:Order Comment: Specimen Type: BLOOD SPECIMEN [facility] Address: [address] [place], [place] [address]Performed By: #### 05646-2, 27701-29, #### [facility] CLIA [id number] [address] [place] [address] [place] AMERICANeutrophils/100 WBC (Bld) 68.9 %NormalMercy Health Anderson Hospital on above:Order Comment: Specimen Type: BLOOD SPECIMEN [facility] Address: [address] [place] [address]Rbeuoaatg By: #### 44173-4, 2776-08, #### [facility] CLIA [id number] [address] [place] [address] [place] AMERICANucleated RBC (Bld) [#/Vol] 10*3/uLNormal<0.01[facility] on above:Order Comment: Specimen Type: BLOOD SPECIMEN [facility] Address: [address] [place], [place] [address]Performed By: #### 74212-3, 2776-08, #### [facility] CLIA [id number] [address] [place], [place] [address] [place] AMERICANucleated RBC/100 WBC (Bld) [Ratio]0.0 /100 WBCNormalCPremier Health on above:Order Comment: Specimen Type: BLOOD SPECIMEN [facility] Address: [address] [place], [place] [address]Performed By: #### 37834-5, 27701-29, #### [facility] CLIA [id number] [address] [place], [place] [address] [place] AMERICAPlatelet mean volume (Bld) [Entitic vol]10.1 fLNormal9.0-12.7CPremier Health on above: Order Comment: Specimen Type: BLOOD SPECIMEN [facility] Address: [address] [place], [place] [address]Performed By: #### 21799-9, 2776-08, #### [facility] CLIA [id number] [address] [place] [address] [place] AMERICAPlatelets (Bld) [#/Vol]250 10*3/kCGtnlhq998-558IuyuewsfbMercy Health Anderson Hospital on above:Order Comment: Specimen Type: BLOOD SPECIMEN [facility] Address: [address] [place], [place] [address]Performed By: #### 65722-0, 2776-08, #### [facility] CLIA [id number] [address] [place], [place] [address] [place] AMERICARBC (Bld) [#/Vol]5.12 10*6/uLNormal3.90-5.20[facility] on above:Order Comment: Specimen Type: BLOOD SPECIMEN [facility] Address: [address] [place], [place] [address]Performed By: #### 13606-9, 277-, #### [facility] CLIA [id number] [address] [place] [address] [place] AMERICAWBC (Bld) [#/Vol]11.25 10*3/uLHigh3.70-11.00[facility] Hospital - ColumbusComthree rivers health hospital on above:Order Comment: Specimen Type: BLOOD SPECIMEN [facility] Address: [address] [place], [place] [address]Performed By: #### 45712-8, 2777-, #### [facility] CLIA [id number] [address] [place], [place] [address]CNOVon [id number] Visit (GENHARLAN) TIFFANI ALLISON ([id number]) 1985 F Date Time Provider Department 11/06/24 11:00 AM REINALDO MENDOZA During your visit today, we recorded the following information about you: Reinaldo Mendoza, PhD 11/06/2024 4:26 PM Signed [facility] [place] Name: Tiffani Allison MR#: [id number] Date: 11/06/2024 Time: 1 hour Referred by: [...] informed that she could be seen again. Reinaldo Webb, Ph.D. Referring Provider: KHOA SILVEIRA [[id number]] Allergies As of Date: 11/06/2024 Noted Allergy Reaction PENICILLINS 10/26/2022 10 - Anaphylaxis 3 - Cough 4 - Hives 9 - Itching 2 - Rash 12 - Shortness of Breath 7 - Swelling 16 - Unknown Comments: Other Reaction(s): throat swelling and hives TOPIRAMATE 01/04/2023 5 - Intolerance Comments: Other Reaction(s): seizures Date Reviewed: 11/06/2024 Reviewed by: Bela Banegas PA-C - Fully Assessed Visit Diagnoses:Preoperative examination [Z01.818] Hiatal hernia [K44.9] Morbid obesity (HCC) [E66.01] Order(s):CONSULT TO [facility] [[id number]] Order #: [id number]: 1 Prescriptions as of 11/06/2024 - DULoxetine [...] obesity without serious comorbid*11/06/2024 Encounter Status:Closed by REINALDO MENDOZA on 11/06/24NoalCMcKitrick Hospitalprehensive metabolic 2000 panelon 85-27-1339Cgcyvam [Mass/Vol]4.1 g/dLNormal3.9-4.9CPremier Health on above:Order Comment: Specimen Type: BLOOD SPECIMEN [facility] Address: [address] [place], [place] [address]Performed By: #### 56866-3 #### [facility] CLIA [id number] [address] [place] [address] [place] AMERICAALP [Catalytic activity/Vol] 69 U/HZxetxw00-618ZifcawummMercy Health [facility] Hospital on above:Order Comment: Specimen Type: BLOOD SPECIMEN [facility] Address: [address] [place], [place] [address]Performed By: #### 92415-8 #### [facility] CLIA [id number] [address] [place], [place] [address] [place] AMERICAALT [Catalytic activity/Vol] 36 U/LNormal7-38[facility] on above:Order Comment: Specimen Type: BLOOD SPECIMEN [facility] Address: [address] [place], [place] [address]Performed By: #### 27697-3 #### [facility] CLIA [id number] [address] [place] [address] [place] AMERICAAnion gap [Moles/Vol]12 mmol/LNormal8-15[facility] on above:Order Comment: Specimen Type: BLOOD SPECIMEN [facility] Address: [address] [place], [place] [address]Performed By: #### 46878-2 #### [facility] CLIA [id number] [address] [place] [address] [place] AMERICAAST [Catalytic activity/Vol] 23 U/PCnseoe01-30PzifkwgpdMercy Health Anderson Hospital on above:Order Comment: Specimen Type: BLOOD SPECIMEN [facility] Address: [address] [place], [place] [address]Performed By: #### 92569-0 #### [facility] CLIA [id number] [address] [place] [address] [place] AMERICABilirubin [Mass/Vol]0.5 mg/dLNormal0.2-1.3CPremier Health on above:Order Comment: Specimen Type: BLOOD SPECIMEN [facility] Address: [address] [place], [place] [address]Performed By: #### 40470-0 #### [facility] CLIA [id number] [address] [place] [address] [place] AMERICACalcium [Mass/Vol]9.0 mg/dL Normal8.5-10.2CPremier Health on above:Order Comment: Specimen Type: BLOOD SPECIMEN [facility] Address: [address] [place], [place] [address]Performed By: #### 89050-4 #### [facility] CLIA [id number] [address] [place] [address] [place] AMERICAChloride [Moles/Vol]104 mmol/RYyitye23-470DkthzslmuMercy Health Anderson Hospital on above:Order Comment: Specimen Type: BLOOD SPECIMEN [facility] Address: [address] [place], [place] [address]Performed By: #### 24051-9 #### [facility] CLIA [id number] [address] [place] [address] [place] AMERICACO2 [Moles/Vol]26 mmol/L Jrnsuo54-45EhpuyknzpMercy Health Anderson Hospital on above:Order Comment: Specimen Type: BLOOD SPECIMEN [facility] Address: [address] [place], [place] [address]Performed By: #### 17148-4 #### [facility] [place] [id number] [address] [place] [address] [place] [facility] CITY HOSPITALCreatinine [Mass/Vol]0.67 mg/dLNormal0.58-0.96[facility] on above:Order Comment: Specimen Type: BLOOD SPECIMEN [facility] Address: [address] [place], [place] [address]Performed By: #### 16601-2 #### [facility] [place] [id number] [address] [place] [address] [place] AMERICACreatinine and Glomerular filtration rate.predicted panel (S/P/Bld)115 mL/min/1.73m???Normal>=60[facility] on above:Order Comment: Specimen Type: BLOOD SPECIMEN [facility] Address: [address] [place], [place] [address]Result Comment: Estimated Glomerular Filtration Rate (eGFR) is calculated using the 2020 CKD-EPI cre atinine equation. This equation utilizes serum creatinine, sex, and age as parameters. The creatinine assay has traceable calibration to isotope dilution- mass spectrometry. Refer to KDIGO guidelines for clinical interpretation. In patients with unstable renal function, e.g. those with acute kidney injury, the eGFR may not accurately reflect actual GFR.Performed By: #### [id number] #### [facility] [place] [id number] [address] [place] [address] [place] AMERICAGlucose [Mass/Vol]130 mg/dL [id number] Health [facility] on above:Order Comment: Specimen Type: BLOOD SPECIMEN Ordering Facility: [facility] Address: [address] [place], [place] [address]Result Comment: The [place] [employer] (ADA) provides guidance for cutoff [...] Standards of Medical Care in Diabetes 2016, [place] [employer]. Diabetes Care. 2016.39(Suppl 1).Performed By: #### 56582-2 #### [facility] CLIA [id number] [address] [place] [address] [place] AMERICAPotassium [Moles/Vol]4.0 mmol/LNormal3.7-5.1CPremier Health on above:Order Comment: Specimen Type: BLOOD SPECIMEN [facility] Address: [address] [place], [place] [address]Performed By: #### 79784-0 #### [facility] CLIA [id number] [address] [place] [address] [place] AMERICAProtein [Mass/Vol]6.2 g/dL Low6.3-8.0[facility] on above:Order Comment: Specimen Type: BLOOD SPECIMEN [facility] Address: [address] [place], [place] [address]Performed By: #### 77553-7 #### [facility] CLIA [id number] [address] [place] [address] [place] AMERICASodium [Moles/Vol]142 mmol/L Kpryym092-495JwwjzutihMercy Health Anderson Hospital on above:Order Comment: Specimen Type: BLOOD SPECIMEN [facility] Address: [address] [place], [place] [address]Performed By: #### 98951-2 #### [facility] [place] [id number] [address] [place] [address] [place] AMERICAUrea nitrogen [Mass/Vol]9 mg/dLNormal7-21[facility] on above:Order Comment: Specimen Type: BLOOD SPECIMEN [facility] Address: [address] [place], [place] [address]Performed By: #### 22651-6 #### [facility] [place] [id number] [address] [place] [address] [place] OF AMERICAECG COMPLETEon 77-48-1784WJL COMPLETEVentricular Rate : 75 BPM Atrial Rate : 75 BPM P-R Interval : 148 ms QRS Duration : 98 ms Q-T Interval : 406 ms QTC Calculation(Bazett) : 453 ms Calculated P [place] : 39 degrees Calculated R [place] : 40 degrees Calculated T [place] : 40 degrees NORMAL SINUS RHYTHM NORMAL ECG Confirmed by MD YAZ, PhD, BATSHEVA ([id number]) on 11/13/2024 11:14:22 AM NAME : TIFFANI ALLISON PID : [id number] : 1985 Gender : Female Race : ORD : [id number] Procedure Date : Nov 06 2024 09:44:52 Edit Date : Nov 13 2024 11:14:24 Diagnosis: NORMAL SINUS RHYTHM NORMAL ECG Confirmed by MD YAZ, PhD, BATSHEVA ([id number]) on 11/13/2024 11:14:22 AM Test Reason : Location : 119 : A17 Overread By : MD YAZ, PhD,BATSHEVA Edited By : MD YAZ, PhD,BATSHEVA Referred By : KHOA SILVEIRA Acquired by : ELIECER WEBBWayne HealthCare Main CampusEosinophils/100 WBC Auto (Bld)on 69-39-1947Fylefvcgqoj/100 WBC (Bld)Automated eosinophil %[facility] HospitalErythrocyte distribution width Auto (RBC) [Ratio]on 08-21-1067Sllmyziyjkq distribution width (RBC) [Ratio]Erythrocyte distribution width [Ratio] by Automated count11.5-15.0[facility] HISTORY PHYSICALon 98-91-8908FAYKMUO PHYSICALHNO ID: [id number] Author: BELA BANEGAS PA-C Service: ? Author Type: Physician Rivet Driver Type: H&P Filed: 11/07/2024 15:19 Note Text: [...] scheduled for at the request of Dr. Khoa Silveira for consultation. My final recommendation will [...] fevers. Neurological: No history of TIA's, stroke, MACHINE TAPER tumor, impaired sensorium, hemiplegia, paraplegia or quadraplegia. No neurological symptoms or problems. Respiratory: No history of current cough or dyspnea, or pneumonia in the past 6 weeks. No history of respiratory/pulmonary symptoms or problems. Cardiovascular: No history of HTN requiring medication, no history of angina, CHF, CA, cardiac surgery or stents. Denies rest pain, [...] is not taking anti-coagulat (more content not included)...NormalSelect Medical Specialty Hospital - [facility] Hematocrit Auto (Bld) [Volume fraction]on 13-12-2239Lswcwmadwc (Bld) [Volume fraction]Hematocrit [Volume Fraction] of Blood by Automated count36.0-46.0 [facility] HospitalHemoglobin [Mass/volume] in Bloodon 11-06-2024 Hemoglobin (Bld) [Mass/Vol]Hemoglobin [Mass/volume] in Blood11.5-15.5FDetwiler Memorial HospitalINR in Platelet poor plasma by Coagulation assayon 60-52-4704RNP Coag (PPP) [Relative time]INR in Platelet poor plasma by Coagulation assay0.9-1.3FDetwiler Memorial HospitalComment on above: Vitamin K Antagonist (VKA) Therapeutic Range: INR 2 to 3 (Target INR of 2.5)Note: For patients treated with VKA drugs, such as warfarin, the [place] [employer]icians 2012 Guideline recommends [...] of 3).Uvaldo GH, et al. Chest 2012, 141:7S-47SNishimura RA, et al. [facility] 2017, 70: 252-289Laboratory - Chemistry and Chemistry - challengeon 47-45-5565Geqjpee [Mass/Vol]4.1 g/dL 3.9-4.9[facility] HospitalALP [Catalytic activity/Vol]69 U/L34-123 [facility] HospitalALT [Catalytic activity/Vol]36 U/L7-38[facility] HospitalAST [Catalytic activity/Vol]23 U/H23-27AkisnhlusTrumbull Memorial HospitalBilirubin [Mass/Vol]0.5 mg/dL0.2-1.3FDetwiler Memorial HospitalCalcium [Mass/Vol]9.0 mg/dL8.5-10.2FDetwiler Memorial Hospital Chloride [Moles/Vol]104 mmol/H62-197XyhnghbxkTrumbull Memorial HospitalCO2 [Moles/Vol]26 mmol/F88-87VkzkyzyflTrumbull Memorial HospitalCreatinine [Mass/Vol] 0.67 mg/dL0.58-0.96[facility] HospitalGlucose [Mass/Vol]130 mg/dL Witk95-99JpeukoucuTrumbull Memorial HospitalComment on above:The [place] Diabetes Association (ADA) provides guidance for cutoff [...] hyperglycemia or hyperglycemic crisis, random plasma glucose resultsgreater than or equal to 200 mg/dL meet the criteria for diagnosis of diabetes.Reference: Standardsof Medical Care in Diabetes 2016, [place] [employer]. Diabetes Care. 2016.39(Suppl 1). Potassium [Moles/Vol]4.0 mmol/L3.7-5.1FSelect Medical Specialty Hospital - Akronodium [Moles/Vol]142 mmol/I732-739JiqaatxcwTrumbull Memorial HospitalUrea nitrogen [Mass/Vol]9 mg/dL7-21[facility] HospitalLaboratory - Hematology and Cell countson 47-31-9080Dhrkmnbpvno (Bld) [#/Vol]0.12 10*3/uL<0.46[facility] HospitalImmature granulocytes (Bld) [#/Vol]0.04 10*3/uL<0.10 [facility] HospitalImmature granulocytes/100 WBC (Bld)0.4 % [facility] HospitalLeukocytes [#/volume] corrected for nucleated erythrocytes in Blood by Automated counon 80-62-9945XQK corrected for nucl RBC Auto (Bld) [#/Vol]Leukocytes [#/volume] corrected for nucleated erythrocytes in Blood by Automated counHigh3.70-11.00[facility] Lymphocytes Auto (Bld) [#/Vol]on 73-33-0215Bgzvqduxqot (Bld) [#/Vol]Lymphocytes [#/volume] in Blood by Automated count1.00-4.00[facility] Lymphocytes/100 WBC Auto (Bld)on 05-70-7876Hzcmeluztfn/100 WBC (Bld) Lymphocytes/100 leukocytes in Blood by Automated countSelect Medical Specialty Hospital - YoungstownH Auto (RBC) [Entitic mass]on 70-08-0583YCB (RBC) [Entitic mass]MCH [Entitic mass] by Automated count26.0-34.0[facility] HospitalMCHC Auto (RBC) [Mass/Vol]on 54-68-0912IQQG (RBC) [Mass/Vol]MCHC [Mass/volume] by Automated count30.5-36.0[facility] HospitalMCV Auto (RBC) [Entitic vol]on 99-29-3272MOU (RBC) [Entitic vol]MCV [Entitic volume] by Automated count 80.0-100.0[facility] HospitalMonocytes Auto (Bld) [#/Vol]on 68-41-7902Dlyfehlgr (Bld) [#/Vol]Automated blood monocyte count<0.87[facility] HospitalMonocytes/100 WBC Auto (Bld)on 57-03-5393Lzuoyuaci/100 WBC (Bld)Automated monocyte %[facility] Memorial HospitalNeutrophils Auto (Bld) [#/Vol]on 03-53-6905Ionhqarfsgg (Bld) [#/Vol]Neutrophils [#/volume] in Blood by Automated countHigh1.45-7.50[facility] Neutrophils/100 WBC Auto (Bld)on 11-14-4250Qlbjpbtmgib/100 WBC (Bld)Automated neutrophil %[facility] HospitalNo Panel Informationon 11-06-2024 Estimated GFR (CKD-EPI)115 mL/min/1.73m???>=60[facility] Comment on above:Estimated Glomerular Filtration Rate (eGFR) is calculated using the 2020 CKD-EPI creatinine equation. This equation utilizes serum creatinine, sex, and age as parameters. The creatinine assay has traceable calibration to isotope dilution-mass spectrometry. Refer to KDIGO guidelines for clinical inte rpretation. In patients with unstable renal function, e.g. those with acute kidney injury, the eGFRmay not accurately reflect actual GFR.Nucleated RBC Auto (Bld) [#/Vol]on 37-29-8193Dcqbadprw RBC (Bld) [#/Vol]Nucleated erythrocytes [#/volume] in Blood by Automated count<0.01[facility] Nucleated erythrocytes [Presence] in Blood by Automated counton 11-06-2024 Nucleated RBC Auto Ql (Bld)Nucleated erythrocytes [Presence] in Blood by Automated countTrumbull Memorial HospitalPT panel Coag (PPP)on 11-06-2024 INR Coag (PPP) [Relative time]1.0 {INR}Normal0.9-1.3CCommunity Regional Medical Center Comment on above:Order Comment: Specimen Type: BLOOD SPECIMENOrdering Facility: [facility] Address:[facility] [place]isco [place], [place] [address]Result Comment: Vitamin K Antagonist (VKA) Therapeutic Range: INR 2 to 3 (Target INR of 2.5) Note: For patients treated with VKA drugs, such as warfarin, the [place] [employer]icians 2012 Guideline recommends [...] Chest 2012, 141:7S-47S Sosa RA, et al. [facility] 2017, 70: 252-289Performed By: #### 73493-3, 52008-7 ####[facility]CLIA [id number] [place] [address] [place] AMERICAPT Coag (PPP) [Time]10.9 sNormal 9.7-13.0[facility] on above:Order Comment: Specimen Type: BLOOD SPECIMENOrdering Facility: [facility] Address:[address] [place], [place] [address]Performed By: #### 66178-2, 55200-3 ####[facility] LABCLIA [id number] [place] [address] [place] AMERICAPlatelet mean volume Auto (Bld) [Entitic vol]on 56-28-7043Ioywppkt mean volume (Bld) [Entitic vol]Platelet mean volume [Entitic volume] in Blood by Automated count9.0-12.7FDetwiler Memorial Hospital Platelets Auto (Bld) [#/Vol]on 07-03-2149Npmlxmpnh (Bld) [#/Vol]Platelets [#/volume] in Blood by Automated -894AebljnxrmTrumbull Memorial Hospital Protein [Mass/volume] in Serum or Plasmaon 95-69-9842Okdksjb [Mass/Vol]Protein [Mass/volume] in Serum or PlasmaLow6.3-8.0[facility] Prothrombin time (PT)on 07-36-5988KK Coag (PPP) [Time]Prothrombin time (PT) 9.7-13.0[facility] HospitalRBC Auto (Bld) [#/Vol]on 79-47-9383ZYE (Bld) [#/Vol]Erythrocytes [#/volume] in Blood by Automated count3.90-5.20 [facility] Hospitalerum or plasma anion gap determinationon 72-64-4354Esswy gap [Moles/Vol]Serum or plasma anion gap determination8-15 [facility] HospitalTYPE AND SCREEN,30 DAYon 37-58-7140CUWEIigvsg [facility] on above:Order Comment: Specimen Type: BLOOD SPECIMENOrdering Facility: [facility] Address:[address] [place], [place] [address]Performed By: #### TSCR30 ####[facility] BANKCLIA [id number] [place] [address] [place] AMERICARh Nom (Bld)NegativeNormalCPremier Health on above: Order Comment: Specimen Type: BLOOD SPECIMENOrdering Facility: [facility] Address:[address] [place], [place] [address]Performed By: #### TSCR30 ####[facility] BLOOD BANKIA [id number] [address] STATES OF AMERICAaPTT PPPon 69-39-2379sIWP Coag (PPP) [Time]24.4 s Pzksxq43.0-32.4CPremier Health on above:Order Comment: Specimen Type: BLOOD SPECIMENOrdering Facility: [facility] Address:[address] [place], [place] [address]Performed By: #### 77025-3, 86231-7 ####[facility] LABCLIA [id number] [place] [address] [place] AMERICACNCOon 43-26-4964OATGKuskxw Text NormalSelect Medical Specialty Hospital - ColumbusCNPNon 03-82-5857LJIOOjoidrmkx (GENBMI) TIFFANI ALLISON ([id number]) 1985 F Date Time Provider Department 09/12/24 KRISTI WATTS During your visit today, we recorded the following information about you: Kristi Watts, SHABANA 09/12/2024 12:55 PM Signed [facility] SPECIALTY CARE COORDINATION TELEPHONE ENCOUNTER I spoke [...] Reaction(s): seizures Date Reviewed: 06/07/2024 Reviewed by: Leah Zuniga RD - Fully Assessed Reason for Visit: Results [95] Prescriptions as of 09/12/2024 - acetaminophen 325 mg cap Take 650 mg by mouth every 6 hours as needed. - amLODIPine (NORVASC) 10 mg tablet Take 10 mg by mouth. - amLODIPine-Atorvastatin 10-10 mg per tablet - aspirin, enteric [...] each day at the same time - oxyCODONE-acetaminophen (PERCOCET) 5-325 mg tablet Take 1 tablet by mouth q 6 HR. - sertraline (ZOLOFT) 100 mg tablet Take 100 mg by mouth. - vit B-comp w-Fe,Ca,FA<1mg (IRON-VITAMINS ORAL) Problem List As Of Date: 09/12/2024 (None) Encounter Status:Closed by KRISTI WATTS on 09/12/24NormalCCommunity Regional Medical CenterNICOTINE AND METAB, URon 22-25-4939DOQP ANABASINE QUANT<5Normal [facility] Hospital - ColumbusComment on above:Order Comment: Specimen Type: URINE SPECIMEN [facility] Address: [address] [place], [place] [address]Performed By: #### UNICOT #### [facility] CLIA [id number] [address] [place], [place] [address]FIEY COTININE QUANT<15NormalSelect Medical Specialty Hospital - [facility] Comment on above:Order Comment: Specimen Type: URINE SPECIMEN [facility] Address: [address] [place], [place] [address]Performed By: #### UNICOT #### [facility] CLIA [id number] [address] [place], [place] [address]CEHF NICOTINE QUANT<15NormalSelect Medical Specialty Hospital - [facility] Comment on above:Order Comment: Specimen Type: URINE SPECIMEN [facility] Address: [address] [place], [place] [address]Result Comment: INTERPRETIVE INFORMATION: Nicotine and Metabolites, Urine, Quantitative Methodology: Quantitative Liquid Chromatography-Tandem Mass Spectrometry Positive cutoff: Nicotine 15 ng/mL Cotinine 15 ng/mL 6-NO-Ihwnjhzm 50 ng/mL Anabasine 5 ng/mL For medical [...] developed and its performance characteristics determined by [employer]. It has not been cleared or approved by the US Food and Drug Administration. This test was performed in a CLIA certified laboratory and is intended for clinical purposes. Performed By: [facility] [address] [place] [address] Food Service Order Clerk: Kulwinder Wilson MD, PhD CLIA Number: [id number] By: #### UNICOT #### [facility] [facility] CLIA [id number] [address] [place], [place] [address]BIBJU 3 [place] COTININE<50NormalClevelFrye Regional Medical Center [facility] Comment on above:Order Comment: Specimen Type: URINE SPECIMEN [facility] Address: [address] [place] [address]Hybxncure By: #### UNICOT #### [facility] CLIA [id number] [address] [place], [place] [address]COJAck 96-38-1201MCQSKxowbbbpo (ENDPTW) TIFFANI ALLISON ([id number]) 1985 F Date Time Provider Department 08/22/24 CHADWICK HELM During your visit today, we recorded [...] Reaction(s): seizures Date Reviewed: 06/07/2024 Reviewed by: Leah Zuniga RD - Fully Assessed Reason for Visit: Patient Update [1234] Prescriptions as of 08/22/2024 - acetaminophen 325 mg cap Take 650 mg by mouth every 6 hours as needed. - amLODIPine (NORVASC) 10 mg tablet Take 10 mg by mouth. - amLODIPine-Atorvastatin 10-10 mg per tablet - aspirin, enteric [...] each day at the same time - oxyCODONE-acetaminophen (PERCOCET) 5-325 mg tablet Take 1 tablet by mouth q 6 HR. - sertraline (ZOLOFT) 100 mg tablet Take 100 mg by mouth. - vit B-comp w-Fe,Ca,FA<1mg (IRON-VITAMINS ORAL) Problem List As Of Date: 08/22/2024 (None) Encounter Status:Closed by CHADWICK HELM on 08/22/24NormalCCommunity Regional Medical CenterXR Ankle - right 3 Viewson 48-54-3746Pjlgrar Result: AP lateral and oblique of the right ankle taken in the office today demonstrating no significant collapse or osteochondral defect ankle mortise well-preserved no bony tumor or fracture seen.[facility] HealthcareRadiology Study observation (narrative)[facility] JpgtpczhyoZkA9u HPLC (Bld) [Mass fraction]on 24-94-1427SrL1k (Bld) [Mass fraction]Hemoglobin A1c/Hemoglobin.total in Blood by HPLCTrumbull Memorial Hospital POLYSOMNOGRAM (PSG)/HOME SLEEP APNEA TEST (HSAT)on 71-54-7149IXIBNFDVGUMAY (PSG)/HOME SLEEP APNEA TEST (HSAT)[facility] at [address], [address] [address] ; Home Sleep Apnea Test (HSAT) Study Report Name: TIFFANI ALLISON Date of Study: 07/31/2024 [facility]#: [id number] Age: 38 (: 1985) ESS: 02/21 Neck [...] unattended Type III, minimum of 4 parameters (90243) Procedure: This study was performed using a Type III ambulatory PSG device and was unattended. The patient was instructed on proper use of the device by a registered technologist infectious disease. The monitored parameters included heart rate, oxygen [...] Primary Snoring [R06.83] Sleep Disorder, Unspecified [G47.9] IMPRESSION/RECOMMENDATIONS: 1. This study confirms a diagnosis of [...] of stroke. INTERPRETING PHYSICIAN: Erik Cutler MD [facility] I attest that I have performed epoch by epoch review of the entire raw data and find this study to be technically adequate. 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 ELECTRONICALLY SIGNED BY: Corina LizamaNot AvailableSAN FRANCISCO GENER[facility] US LOWER EXTREMITY VENOUS DUPLEX RIGHTon 31-74-4775BZIK US LOWER EXTREMITY VENOUS DUPLEX RIGHTExam: [facility] US LOWER EXTREMITY VENOUS DUPLEX RIGHT Clinical History: Right calf pain and swelling Reference Exam: No comparison FINDINGS: Imaging findings: Real-time ultrasonographic evaluation with color-flow Doppler sequencing and Doppler waveform analysis is provided for the deep venous system. The visualized right common femoral vein, superficial femoral vein, popliteal vein and veins of thetrifurcation demonstrate appropriate compressibility and augmentation of flow. The greater saphenous vein is patent. No abnormality of the popliteal fossa is identified. Impression: 1. No ultrasonographic evidence of deep venous thrombosis in the right lower extremity. Dictated on: 06/21/2024 4:05 PM This report has been electronically signed and approved by the interpreting Radiologist.NormalNot AvailableNICOTINE AND METAB, URon 70-75-4511MZLA ANABASINE QUANT<5NormalCPremier Health on above:Order Comment: Specimen Type: BLOOD SPECIMEN [facility] Address: [address] [place], [place] [address]Performed By: #### 70392-1, 2777- #### [facility] CLIA [id number] [address]UR[address] COTININE QUANT<15Normal [facility] on above:Order Comment: Specimen Type: BLOOD SPECIMEN [facility] Address: [address] [place], [place] [address]Performed By: #### 13177-4, 2776-08, #### [facility] CLIA [id number] [address] [place], [place] [id number] [facility] CENTERURIN NICOTINE QUANT<15Normal [facility] on above:Order Comment: Specimen Type: BLOOD SPECIMEN [facility] Address: [address] [place], [place] [address]Result Comment: INTERPRETIVE INFORMATION: Nicotine and Metabolites, Urine, Quantitative Methodology: Quantitative Liquid Chromatography-Tandem Mass Spectrometry Positive cutoff: Nicotine 15 ng/mL Cotinine 15 ng/mL 2-DE-Dxrknxoe 50 ng/mL Anabasine 5 ng/mL For medical [...] developed and its performance characteristics determined by [employer]. It has not been cleared or approved by the US Food and Drug Administration. This test was performed in a CLIA certified laboratory and is intended for clinical purposes. Performed By: [facility] [address] [place] [address] Food Service Order Clerk: Kulwinder Wilson MD, PhD CLIA Number: [id number] By: #### 14318-2, 27701-29, #### [facility] CLIA [id number] [address] [place] [address] [place] AMERICAURINE 3 [place] COTININE<50Normal [facility] Hospital - ColumbusComment on above:Order Comment: Specimen Type: BLOOD SPECIMEN [facility] Address: [address] [place], [place] [address]Performed By: #### 34839-9, 2776-1, #### [facility] CLIA [id number] [address] [place] [address] OF [facility]XR CHEST 2V FRONTAL/LATon 79-79-3498AH CHEST 2V FRONTAL/LAT* * *Final Report* * * DATE OF [...] tissues: Unremarkable. IMPRESSION: No acute radiographic abnormality. Wig Stylist: MARYB Transcribe Date/Time: Jun 15 2024 12:32P Dictated by : SUZIE RICARDO MD This examination was interpreted and the report reviewed and electronically signed by: SUZIE RICARDO MD on Jun 15 2024 12:32PM EST [id number] Medical Specialty Hospital - ColumbusXR Chest PA and Lateralon 99-50-3483FGYVIFZOSI: No acute radiographic abnormality. Wig Stylist: LEWIS Transcribe Date/Time: Jun 15 2024 12:32P Dictated by : SUZIE RICARDO MD This examination was interpreted and the report reviewed and electronically signed by: SUZIE RICARDO MD on Jun 15 2024 12:32PM EST DIVISION OF RADIOLOGY* * *Final Report* * * DATE OF [...] Bones and soft tissues: Unremarkable. DIVISION OF RADIOLOGYProvider, [facility] [place] - 06/15/2024 * * *Final Report* * [...] Unremarkable. IMPRESSION IMPRESSION: No acute radiographic abnormality. Wig Stylist: PSCB Transcribe Date/Time: Jun 15 2024 12:32P Dictated by : SUZIE RICARDO MD This examination was interpreted and the report reviewed and electronically signed by: SUZIE RICARDO MD on Jun 15 2024 12:32PM EST [facility] - WestRadiology Study observation (narrative)[facility] - WestXR Chest PA and LateralOrdered By: [facility] Provider on 12-76-5138Ebtwxtwoo ClinicCNPNon 73-33-5252QMXIRxfkerrxo (GENBMI) TIFFANI ALLISON ([id number]) 1985 F Date Time Provider Department 05/17/24 KRISTI WATTS During your visit today, we recorded the following information about you: Kristi Watts RN 05/17/2024 10:18 AM Signed [facility] SPECIALTY CARE COORDINATION TELEPHONE ENCOUNTER LVM [...] tablet Take 10 mg by mouth. - amLODIPine-Atorvastatin 10-10 mg per tablet - aspirin, enteric [...] each day at the same time - oxyCODONE-acetaminophen (PERCOCET) 5-325 mg tablet Take 1 tablet by mouth q 6 HR. - sertraline (ZOLOFT) 100 mg tablet Take 100 mg by mouth. - vit B-comp w-Fe,Ca,FA<1mg (IRON-VITAMINS ORAL) Problem List As Of Date: 05/17/2024 (None) Encounter Status:Closed by KRISTI WATTS on 05/17/24[facility] ECG *CARDIOLOGY ONLY*on 16-10-1803VSX ECG *CARDIOLOGY ONLY* [facility] [place] [address] Electrocardiograph Report Signed Patient: Tiffani Allison MR#: [id number] : 1985 Acct:[id number] Age/Sex: 38 / F ADM Date: 05/10/24 Loc: EKGCARDIO [facility]: Felipe Quiñones MD Ordering Provider: [...] previous ECGs available Confirmed by Felipe Quiñones ([id number]) on 05/12/2024 10:56:03 AM Referred By: Electronically Signed By: Felipe Quiñones Transcribed By: MUS Signed By Felipe Quiñones MD 05/12/[address] [place] [address] Physician GroupOVon 73-05-5239JWVNVirosy Visit (GENBMI) TIFFANI ALLISON ([id number]) 1985 F Date Time Provider Department 04/24/24 9:00 AM AYSE GRISSOM During your visit today, we recorded the following information about you: Pulse Blood pressure Weight Height 80/minute 144/82 138.5 kg 1.778 m Last Period 04/07/24 Ayse Grissom MD 04/30/2024 10:16 AM Signed BARIATRIC [...] 20 DAYS clindamycin (THU (more content not included)...[facility] 99-70-9511ZLIJOntjpnbln (GENBMI) TIFFANI ALLISON ([id number]) 1985 F Date Time Provider Department 04/18/24 KRISTI WATTS During your visit today, we recorded the following information about you: Kristi Watts RN 04/18/2024 10:18 AM Signed BMI SPECIALTY CARE COORDINATION TELEPHONE ENCOUNTER LVM [...] tablet Take 10 mg by mouth. - amLODIPine-Atorvastatin 10-10 mg per tablet - aspirin, enteric [...] each day at the same time - oxyCODONE-acetaminophen (PERCOCET) 5-325 mg tablet Take 1 tablet by mouth q 6 HR. - sertraline (ZOLOFT) 100 mg tablet Take 100 mg by mouth. - vit B-comp w-Fe,Ca,FA<1mg (IRON-VITAMINS ORAL) Problem List As Of Date: 04/18/2024 (None) Encounter Status:Closed by KRISTI WATTS on 04/18/24[facility] [id number] Visit (JENNIFER) ESTEFANY,TIFFANI ([id number]) 1985 F Date Time Provider Department 04/16/24 [...] No Ran Padron 04/23/2024 8:59 AM Signed [facility] - [...] Low transverse 2009, 2021, 2023 Lap rocío 2005 Sleeve gastrectomy 2016 No past medical history [...] findings of this patient (more content not included)...[id number] (JENNIFER) TIFFANI ALLISON ([id number]) 1985 F Date Time Provider Department 04/11/24 JAVIER KITCHEN During your visit today, we recorded the following information about you: Javier Kitchen LPN 04/11/2024 4:18 PM Signed Contacted patient, verified name and . Advised of the following Abdominal Surgeries performed and patient had Imaging performed from [facility] 03/29/24 and to bring Imaging with her to appointment. 2018--Gastric Bypass ( [facility], [place], [place]) 2017--Appendectomy ([place], [place]; [facility]) Advised patient will contact to obtain Operative Reports and patient to be sent [employer] Message to contact if any needs or concerns arise, patient acknowledged and verbalized understanding. SANDRITA Luciano Claudine, LPN 04/13/2024 11:39 AM Signed Contacted [facility] for patient's Lap Vertical Gastric Sleeve performed in 2018, no answer to HIM Dept and message left to contact this public relations writer back. Contacted [facility] Department. Spoke with Ashley and advised to send fax request to , fax receipt confirmation @ 11:38 am, will monitor for reports for Lap Appy- 2016 Javier Kitchen LPN Allergies As of Date: 04/11/2024 (Not on File) Date Reviewed: Never Reviewed Problem List As Of Date: 04/11/2024 (None) Encounter Status:Closed by JAVIER KITCHEN on 04/11/24[facility] ABDOMEN PELVIS W CONon [id number] [address] [address] Scan Report Signed Patient: TIFFANI ALLISON MR#: [id number] : 1985 Acct:[id number] Age/Sex: 38 / F ADM Date: 03/29/24 Loc: CT Attending Dr: Adrian Kerr D.O. Ordering Physician: Adrian Kerr D.O. Date of Service: 03/29/24 Procedure(s): CT abdomen pelvis w con Accession Number(s): [id number] cc: ELISABETH BECKMAN [address] [address] Patient Name: TIFFANI ALLISON MRN: [id number] date: 1985 Sex: F Assigned Patient Location: CT Current Patient Location: Accession/Order Number: [id number] Exam Date: 03/29/2024 10:15 Report Date: 03/30/2024 07:52 At the request of: ADRIAN KERR Procedure: CT abdomen pelvis w con EXAM: CT abdomen pelvis w con HISTORY: Hernia Abdominal Wall, Left Lower Quadrant Mass COMPARISON: None. TECHNIQUE: Following intravenous administration of 100 cc of Omnipaque 350, axial soft tissue windows of the abdomen and pelvis with coronal and sagittal reformats. CT dose reduction technique was used including Automated Exposure Control. Findings: ABDOMEN: Small region of focal fatty infiltration within segment 4 of the liver adjacent falciform ligament. The gallbladder is surgically absent. Spleen, pancreas, adrenal glands and kidneys are unremarkable the bilateral ureters are nondilated. Small hiatal hernia. Postsurgical changes involving the stomach. Otherwise, the bowel is unremarkable without evidence of wall thickening or obstruction. The appendix is surgically absent. The aorta is normal caliber. No enlarged abdominal lymph nodes or free abdominal fluid. Pelvis: Large hypogastric ventral hernia containing fat nonobstructed small bowel. Unremarkable bladder. The uterus is present and unremarkable within the limits of CT. No enlarged pelvic lymph nodes or free pelvic fluid. No aggressive sclerotic or lytic osseous lesions. Multilevel degenerative spondylosis. CT/CT abdomen pelvis w con IMPRESSION: 1. Large hypogastric ventral hernia. 2. Other nonemergent findings, as discussed above. Electronically authenticated by: EDDIE CHANG Date: 03/30/2024 07:52 Dictated By: Eddie Chang M.D. Signed By: 03/30/24 0755 DD/ 0752 TD/TT: Wig Stylist:ANDREAHRadiology, Radiologist, - 03/30/2024 [place] [address] CT Scan Report Signed Patient: TIFFANI ALLISON MR#: [id number] : 1985 Acct:[id number] Age/Sex: 38 / F ADM Date: 03/29/24 Loc: CT Attending Dr: Adrian Kerr D.O. Ordering Physician: Adrian Kerr D.O. Date of Service: 03/29/24 Procedure(s): CT abdomen pelvis w con Accession Number(s): [id number] cc: ELISABETH BECKMAN [place] [id number] Patient Name: TIFFANI ALLISON MRN: [facility]:[id number] date: 1985 Sex: F Assigned Patient Location: CT Current Patient Location: Accession/Order Number: [id number] Exam Date: 03/29/2024 10:15 Report Date: 03/30/2024 07:52 At the request of: ADRIAN KERR Procedure: CT abdomen pelvis w con EXAM: CT abdomen pelvis w con HISTORY: Hernia Abdominal Wall, Left Lower Quadrant Mass COMPARISON: None. TECHNIQUE: Following intravenous administration of 100 cc of Omnipaque 350, axial soft tissue windows of the abdomen and pelvis with coronal and sagittal reformats. CT dose reduction technique was used including Automated Exposure Control. Findings: ABDOMEN: Small region of focal fatty infiltration within segment 4 of the liver adjacent falciform ligament. The gallbladder is surgically absent. Spleen, pancreas, adrenal glands and kidneys are unremarkable the bilateral ureters are nondilated. Small hiatal hernia. Postsurgical changes involving the stomach. Otherwise, the bowel is unremarkable without evidence of wall thickening or obstruction. The appendix is surgically absent. The aorta is normal caliber. No enlarged abdominal lymph nodes or free abdominal fluid. Pelvis: Large hypogastric ventral hernia containing fat nonobstructed small bowel. Unremarkable bladder. The uterus is present and unremarkable within the limits of CT. No enlarged pelvic lymph nodes or free pelvic fluid. No aggressive sclerotic or lytic osseous lesions. Multilevel degenerative spondylosis. CT/CT abdomen pelvis w con IMPRESSION: 1. Large hypogastric ventral hernia. 2. Other nonemergent findings, as discussed above. Electronically authenticated by: EDDIE CHANG Date: 03/30/2024 07:52 Dictated By: Eddie Chang M.D. Signed By: 03/30/24 0755 DD/ 075 TD/TT: Wig Stylist: KRISTA HealthcareRadiology Study observation (narrative)NOMS HealthcareCT ABDOMEN PELVIS W CONOrdered By: Radiologist Radiology on [id number] FMS [facility] Work Phone: Lon [phone]: [id number] Received: 12/13/23754 Status: KENISHA Jerry Num: [id number] Spec Type: Surgical Subm Dr: Adrian Kerr Tissues: A Placenta - 3rd Trimester (Greater than 28 weeks) (PLACENTA) B Fallopian Tube - Sterilization (FT BILATERAL) Procedures: HE/5, Gross/Micro L5, Gross/Micro L2 Age/ Patient Sex Location Account Attending Physician EstefanyTiffani R 38/F LABELL [id number] Adrian Kerr SPEC NUM: [id number] RECD: 12/13/23 STATUS: KENISHA JERRY NUM: [id number] RODERICK: 12/12/[address]: Adrian Kerr ENTERED: 12/13/23 [facility] DR: Tariq,Lab SPEC TYPE: Surgical DEPT: OK [...] membranes and cord, has a trimmed weight Specimen: [id number] Received: 12/13/23 Status: KENISHA Jerry Num: [id number] Spec Type: Surgical Subm Dr: Adrian Kerr Tissues: A Placenta - 3rd Trimester (Greater than 28 weeks) (PLACENTA) B Fallopian Tube - Sterilization (FT BILATERAL) Procedures: /5, Gross/Micro L5, Gross/Micro L2 Patient: Tiffani Allison [id number] (Continued) Specimen: [id number] Received: 12/13/23 (Continued) Gross Description (Continued) Signed (signature on file) Antonio Ahumada MD 12/14/23 1545 Specimen: [id number] Received: 12/13/23 Status: KENISHA Jerry Num: [id number] Spec Type: Surgical Subm Dr: Adrian Kerr Tissues: A Placenta - 3rd Trimester (Greater than 28 weeks) (PLACENTA) B Fallopian Tube - Sterilization (FT BILATERAL) Procedures: HE/5, Gross/Micro L5, Gross/Micro L2 Patient: Estefany,Tiffani R [id number] (Continued) Specimen: [id number] Received: 12/13/23 (Continued) Gross Description (Continued) of [...] luminal centers lined by unremarkable burnham mucosa. Territory Service Representative sections are submitted in A1 (tube #1) and A2 (tube #2). Clinical history: Previous . , 4, 7, 9, gestational age 37 weeks, small baby CPT Codes [id number] Specimen: [id number] Received: 12/13/23 Status: KENISHA Jerry Num: [id number] Spec Type: Surgical Subm Dr: Adrian Kerr Tissues: A Placenta - 3rd Trimes (more content not included)...NormalThe [facility] Physician [facility] OB BPP W NON-STRESSon [id number] [place] [address] Ultrasound Report Signed Patient: TIFFANI ALLISON MR#: [id number] : 1985 Acct:[id number] Age/Sex: 38 / F ADM Date: 12/09/23 Loc: [facility] 250-[address]: Adrian Kerr D.O. Ordering Physician: Adrian Kerr D.O. Date of Service: 12/09/23 Procedure(s): US OB BPP w non-stress Accession Number(s): [id number] cc: dArian Kerr D.O.; Yandel More NP [address] [address] Patient Name: TIFFANI ALLISON MRN: [facility]:[id number] date: 1985 Sex: F Assigned Patient Location: [facility] Current Patient Location: [facility] Accession/Order Number: [id number] Exam Date: 12/09/2023 09:34 Report Date: 12/09/2023 10:19 At the request of: ADRIAN KERR Procedure: US OB BPP w non-stress EXAMINATION: US OB BPP w non-stress HISTORY: HYPOTHYROIDISM E03.9 COMPARISON: Ultrasound OB biophysical 12/02/2023 TECHNIQUE: Ultrasound biophysical profile was performed in the radiology department. BREATHING MOVEMENTS: 2.0 GROSS BODY MOVEMENTS: 2.0 TONE: 2.0 QUALITATIVE AMNIOTIC FLUID VOLUME: 2.0 PRESENTATION: CEPHALIC HEART RATE: 133.7 bpm bpm. AMNIOTIC FLUID VOLUME: 10.0 cm GESTATIONAL AGE: 36 weeks 4 days CONCLUSION: Total biophysical profile score 8.0. Electronically authenticated by: JOIE AYALA Date: 12/09/2023 10:19 Dictated By: Joie Ayala M.D. Signed By: 12/09/23 1021 DD/ 1019 TD/TT: Wig Stylist:ANDREAHRadiology, Radiologist, - 12/09/2023 [place] [address] Ultrasound Report Signed Patient: TIFFANI ALLISON MR#: [id number] : 1985 Acct:[id number] Age/Sex: 38 / F ADM Date: 12/09/23 Loc: [facility] 250-[address]: Adrian Kerr D.O. Ordering Physician: Adrian Kerr D.O. Date of Service: 12/09/23 Procedure(s): US OB BPP w non-stress Accession Number(s): [id number] cc: Adrian Kerr D.O.; Yandel oMre [employer] GLAZIER [place] [id number] Patient Name: TIFFANI ALLISON MRN: [id number]:[id number] date: 1985 Sex: F Assigned Patient Location: [facility] Current Patient Location: [facility] Accession/Order Number: [id number] Exam Date: 12/09/2023 09:34 Report Date: 12/09/2023 10:19 At the request of: ADRIAN KERR Procedure: US OB BPP w non-stress EXAMINATION: US OB BPP w non-stress HISTORY: HYPOTHYROIDISM E03.9 COMPARISON: Ultrasound OB biophysical 12/02/2023 TECHNIQUE: Ultrasound biophysical profile was performed in the radiology department. BREATHING MOVEMENTS: 2.0 GROSS BODY MOVEMENTS: 2.0 TONE: 2.0 QUALITATIVE AMNIOTIC FLUID VOLUME: 2.0 PRESENTATION: CEPHALIC HEART RATE: 133.7 bpm bpm. AMNIOTIC FLUID VOLUME: 10.0 cm GESTATIONAL AGE: 36 weeks 4 days CONCLUSION: Total biophysical profile score 8.0. Electronically authenticated by: JOIE AYALA Date: 12/09/2023 10:19 Dictated By: Joie Ayala M.D. Signed By: 12/09/23 1021 DD/ 1019 TD/TT: Wig Stylist: KRISTA HealthcareRadiology Study observation (narrative)NOMS HealthcareUS OB BPP W NON-STRESSOrdered By: Radiologist Radiology on 14-29-1576NOT[facility] Work Phone: US OB BPP W NON-STRESSon [phone] [address] Ultrasound Report Signed Patient: TIFFANI ALLISON MR#: [id number] : 1985 Acct:[id number] Age/Sex: 38 / F ADM Date: 12/02/23 Loc: US Attending Dr: Adrian Kerr D.O. Ordering Physician: Adrian Kerr D.O. Date of Service: 12/02/23 Procedure(s): US OB BPP w non-stress Accession Number(s): [id number] cc: Adrian Kerr D.O.; YANDEL MORE M.D. [place] [id number] Patient Name: TIFFANI ALLISON MRN: [id number]:[id number] date: 1985 Sex: F Assigned Patient Location: US Current Patient Location: US Accession/Order Number: [id number] Exam Date: 12/02/2023 09:49 Report Date: 12/02/2023 10:19 At the request of: ADRIAN KERR Procedure: US OB BPP w non-stress EXAMINATION: US OB BPP w non-stress HISTORY: HYPOTHYROIDISM E03.9 COMPARISON: No relevant comparison available. TECHNIQUE: Ultrasound biophysical profile was performed in the radiology department. non-reactive stress testing was performed by nursing staff in the birthing center. FINDINGS: BREATHING MOVEMENTS: 2.0 GROSS BODY MOVEMENTS: 2.0 TONE: 2.0 QUALITATIVE AMNIOTIC FLUID VOLUME: 2.0 PRESENTATION: CEPHALIC HEART RATE: 133.7 bpm H.B./min AMNIOTIC FLUID VOLUME: 13.2 cm cm GESTATIONAL AGE: 35 weeks 4 days CONCLUSION: Total biophysical profile score: 8.0 Electronically authenticated by: PEDRO LAZCANO Date: 12/02/2023 10:19 Dictated By: Pedro Lazcano M.D. Signed By: 12/02/23 1022 DD/ 1019 TD/TT: Wig Stylist:ANDREAHRadiologfrank, Radiologist, - 12/02/2023 [place] [address] Ultrasound Report Signed Patient: TIFFANI ALLISON MR#: [id number] : 1985 Acct:[id number] Age/Sex: 38 / F ADM Date: 12/02/23 Loc: US Attending Dr: Adrian Kerr D.O. Ordering Physician: Adrian Kerr D.O. Date of Service: 12/02/23 Procedure(s): US OB BPP w non-stress Accession Number(s): [id number] cc: Adrian Kerr D.O.; YANDEL MORE M.D. The [address] [address] Patient Name: TIFFANI ALLISON MRN: [id number] date: 1985 Sex: F Assigned Patient Location: US Current Patient Location: US Accession/Order Number: [id number] Exam Date: 12/02/2023 09:49 Report Date: 12/02/2023 10:19 At the request of: ADRIAN KERR Procedure: US OB BPP w non-stress EXAMINATION: US OB BPP w non-stress HISTORY: HYPOTHYROIDISM E03.9 COMPARISON: No relevant comparison available. TECHNIQUE: Ultrasound biophysical profile was performed in the radiology department. non-reactive stress testing was performed by nursing staff in the birthing center. FINDINGS: BREATHING MOVEMENTS: 2.0 GROSS BODY MOVEMENTS: 2.0 TONE: 2.0 QUALITATIVE AMNIOTIC FLUID VOLUME: 2.0 PRESENTATION: CEPHALIC HEART RATE: 133.7 bpm H.B./min AMNIOTIC FLUID VOLUME: 13.2 cm cm GESTATIONAL AGE: 35 weeks 4 days CONCLUSION: Total biophysical profile score: 8.0 Electronically authenticated by: PEDRO LAZCANO Date: 12/02/2023 10:19 Dictated By: Pedro Lazcano M.D. Signed By: 12/02/23 1022 DD/ 1019 TD/TT: Wig Stylist: NOMMaryellen HealthcareRadiology Study observation (narrative)NOMS HealthcareUS OB BPP W NON-STRESSOrdered By: Radiologist Radiology on [id number] Work Phone: US OB BPP W NON-STRESSon [phone] [place] [address] Ultrasound Report Signed Patient: TIFFANI ALLISON MR#: [id number] : 1985 Acct:[id number] Age/Sex: 38 / F ADM Date: 11/25/23 Loc: US Attending Dr: Adrian Kerr D.O. Ordering Physician: Adrian Kerr D.O. Date of Service: 11/25/23 Procedure(s): US OB BPP w non-stress Accession Number(s): [id number] cc: Adrian Kerr D.O.; YANDEL MORE M.D. [place] [phone] Patient Name: TIFFANI ALLISON MRN: [id number] date: 1985 Sex: F Assigned Patient Location: [facility] Current Patient Location: Accession/Order Number: [id number] Exam Date: 11/25/2023 09:36 Report Date: 11/25/2023 12:06 At the request of: ADRIAN KERR Procedure: US OB BPP w non-stress EXAMINATION: US OB BPP w non-stress HISTORY: Hypothyroidism E03.9 COMPARISON: 11/17/2023 TECHNIQUE: Ultrasound biophysical profile was performed in the radiology department. FINDINGS: BREATHING MOVEMENTS: 2 GROSS BODY MOVEMENTS: 2 TONE: 2 QUALITATIVE AMNIOTIC FLUID VOLUME: 2 PRESENTATION: Cephalic HEART RATE: 134 H.B./min AMNIOTIC FLUID VOLUME: 11.0 cm GESTATIONAL AGE: 34 weeks 4 days CONCLUSION: Total biophysical profile score: 8/8 Electronically authenticated by: PEDRO LAZCANO Date: 11/25/2023 12:06 Dictated By: Pedro Lazcano M.D. Signed By: 11/25/23 1209 DD/ 1206 TD/TT: Wig Stylist:ANDREAHRadiology, Radiologist, MD - 11/25/2023 [place] [address] Ultrasound Report Signed Patient: TIFFANI ALLISON MR#: [id number] : 1985 Acct:[id number] Age/Sex: 38 / F ADM Date: 11/25/23 Loc: US Attending Dr: Adrian Kerr D.O. Ordering Physician: Adrian Kerr D.O. Date of Service: 11/25/23 Procedure(s): US OB BPP w non-stress Accession Number(s): [id number] cc: Adrian Kerr D.O.; YANDEL MORE M.D. The [place] [id number] Patient Name: TIFFANI ALLISON MRN: [id number] date: 1985 Sex: F Assigned Patient Location: [facility] Current Patient Location: Accession/Order Number: [id number] Exam Date: 11/25/2023 09:36 Report Date: 11/25/2023 12:06 At the request of: ADRIAN KERR Procedure: US OB BPP w non-stress EXAMINATION: US OB BPP w non-stress HISTORY: Hypothyroidism E03.9 COMPARISON: 11/17/2023 TECHNIQUE: Ultrasound biophysical profile was performed in the radiology department. FINDINGS: BREATHING MOVEMENTS: 2 GROSS BODY MOVEMENTS: 2 TONE: 2 QUALITATIVE AMNIOTIC FLUID VOLUME: 2 PRESENTATION: Cephalic HEART RATE: 134 H.B./min AMNIOTIC FLUID VOLUME: 11.0 cm GESTATIONAL AGE: 34 weeks 4 days CONCLUSION: Total biophysical profile score: 8/8 Electronically authenticated by: PEDRO LAZCANO Date: 11/25/2023 12:06 Dictated By: Pedro Lazcano M.D. Signed By: 11/25/23 1209 DD/ 1206 TD/TT: Wig Stylist: NOMS HealthcareRadiology Study observation (narrative)NOMS HealthcareUS OB BPP W NON-STRESSOrdered By: Radiologist Radiology on [id number] Healthcare Work Phone: US OB BPP W NON-STRESSon [phone] [place] [address] Ultrasound Report Signed Patient: TIFFANI ALLISON MR#: [id number] : 1985 Acct:[id number] Age/Sex: 38 / F ADM Date: 11/17/23 Loc: US Attending Dr: Adrian Kerr D.O. Ordering Physician: Adrian Kerr D.O. Date of Service: 11/17/23 Procedure(s): US OB BPP w non-stress Accession Number(s): [id number] cc: Adrian Kerr D.O.; YANDEL MORE M.D. [address] [address] Patient Name: TIFFANI ALLISON MRN: [id number]:[id number] date: 1985 Sex: F Assigned Patient Location: [facility] Current Patient Location: Accession/Order Number: [id number] Exam Date: 11/17/2023 20:12 Report Date: 11/18/2023 07:40 At the request of: ADRIAN KERR Procedure: US OB BPP w non-stress EXAMINATION: US OB BPP w non-stress HISTORY: HYPOTHYROIDISM E03.9 COMPARISON: Ultrasound OB growth 11/15/2023 TECHNIQUE: Ultrasound biophysical profile was performed in the radiology department. BREATHING MOVEMENTS: 2.0 GROSS BODY MOVEMENTS: 2.0 TONE: 2.0 QUALITATIVE AMNIOTIC FLUID VOLUME: 2.0 PRESENTATION: CEPHALIC HEART RATE: 143.6 bpm bpm. AMNIOTIC FLUID VOLUME: 12.3 cm GESTATIONAL AGE: 33 weeks 3 days CONCLUSION: Total biophysical profile score 8.0. Electronically authenticated by: JOIE AYALA Date: 11/18/2023 07:40 Dictated By: Joie Ayala M.D. Signed By: 11/18/2342 DD/ TD/TT: Wig Stylist:ANDREAHRadiology, Radiologist, - 11/18/2023 [place] [address] Ultrasound Report Signed Patient: TIFFANI ALLISON MR#: [id number] : 1985 Acct:[id number] Age/Sex: 38 / F ADM Date: 11/17/23 Loc: US Attending Dr: Adrian Kerr D.O. Ordering Physician: Adrian Kerr D.O. Date of Service: 11/17/23 Procedure(s): US OB BPP w non-stress Accession Number(s): [id number] cc: Adrian Kerr D.O.; YANDEL MORE M.D. The [address] [address] Patient Name: TIFFANI ALLISON MRN: [id number] date: 1985 Sex: F Assigned Patient Location: [facility] Current Patient Location: Accession/Order Number: [id number] Exam Date: 11/17/2023 20:12 Report Date: 11/18/2023 07:40 At the request of: ADRIAN KERR Procedure: US OB BPP w non-stress EXAMINATION: US OB BPP w non-stress HISTORY: HYPOTHYROIDISM E03.9 COMPARISON: Ultrasound OB growth 11/15/2023 TECHNIQUE: Ultrasound biophysical profile was performed in the radiology department. BREATHING MOVEMENTS: 2.0 GROSS BODY MOVEMENTS: 2.0 TONE: 2.0 QUALITATIVE AMNIOTIC FLUID VOLUME: 2.0 PRESENTATION: CEPHALIC HEART RATE: 143.6 bpm bpm. AMNIOTIC FLUID VOLUME: 12.3 cm GESTATIONAL AGE: 33 weeks 3 days CONCLUSION: Total biophysical profile score 8.0. Electronically authenticated by: JOIE AYALA Date: 11/18/2023 07:40 Dictated By: Joie Ayala M.D. Signed By: 11/18/2342 DD/ 9 TD/TT: Wig Stylist: KRISTA HealthcareRadiology Study observation (narrative)NOMMaryellen NgUS OB BPP W NON-STRESSOrdered By: Radiologist Radiology on [id number] FMS [facility] Work Phone: US OB GROWTHon [phone] [phone] Ultrasound Report Signed Patient: TIFFANI ALLISON MR#: [id number] : 1985 Acct:[id number] Age/Sex: 38 / F ADM Date: 11/15/23 Loc: [facility] Attending Dr: Kassandra Alfaro Ordering Physician: Kassandra Alfaro Date of Service: 11/15/23 Procedure(s): US OB growth Accession Number(s): [id number] cc: YANDEL Cevallos M.D. [address] [address] Patient Name: TIFFANI ALLISON MRN: [id number]:[id number] date: 1985 Sex: F Assigned Patient Location: [facility] Current Patient Location: [facility] Accession/Order Number: [id number] Exam Date: 11/15/2023 08:03 Report Date: 11/15/2023 08:46 At the request of: KASSANDRA ALFARO Procedure: US OB growth EXAMINATION: US OB growth HISTORY: HYPOTHYROIDISM COMPARISON: No relevant comparison available. FINDINGS: Heart Rate: 150.0 bpm Amniotic Fluid Volume: 13.3 cm Number: 1.0 Position: Cephalic presentation, longitudinal lie Maximum Vertical Pocket: 2.3 cm cm 3.2 cm cm 4.6 cm cm 3.2 cm cm BIOMETRY: BPD: 8.6 cm cm; 34 weeks 6 days; 88% HC: 30.7 cmcm; 34 weeks 2 days , 42% AC: 30.7 cm cm; 34 weeks 4 days, 80% FL: 6.6 cm cm; 34 weeks 1 days; 65.9 % % EFW: 2438.4 grams, 5 lbs. 6 oz., 81% FL/AC: 21.6 FL/BPD: 76.7 HC/AC: 1.0 GESTATIONAL AGE: Age by EDC: 33 weeks 1 days ELPIDIO by EDC: 01/02/2024 Age by US: 34 weeks 3 days ELPIDIO by US: 12/24/2023 US/US OB growth IMPRESSION: Normal interval growth Electronically authenticated by: PEDRO LAZCANO Date: 11/15/2023 08:46 Dictated By: Pedro Lazcano M.D. Signed By: 11/15/2348 DD/ TD/TT: Wig Stylist:ANDREAHRadiology, Radiologist, - 11/15/2023 [place] [address] Ultrasound Report Signed Patient: TIFFANI ALLISON MR#: [id number] : 1985 Acct:[id number] Age/Sex: 38 / F ADM Date: 11/15/23 Loc: [facility] Attending Dr: Kassandra Alfaro Ordering Physician: Kassandra Alfaro Date of Service: 11/15/23 Procedure(s): US OB growth Accession Number(s): [id number] cc: Kassandra Alfaro; YANDEL MORE M.D. The [place] [id number] Patient Name: TIFFANI ALLISON MRN: [facility]:[id number] date: 1985 Sex: F Assigned Patient Location: [facility] Current Patient Location: [facility] Accession/Order Number: [id number] Exam Date: 11/15/2023 08:03 Report Date: 11/15/2023 08:46 At the request of: KASSANDRA ALFARO Procedure: US OB growth EXAMINATION: US OB growth HISTORY: HYPOTHYROIDISM COMPARISON: No relevant comparison available. FINDINGS: Heart Rate: 150.0 bpm Amniotic Fluid Volume: 13.3 cm Number: 1.0 Position: Cephalic presentation, longitudinal lie Maximum Vertical Pocket: 2.3 cm cm 3.2 cm cm 4.6 cm cm 3.2 cm cm BIOMETRY: BPD: 8.6 cm cm; 34 weeks 6 days; 88% HC: 30.7 cmcm; 34 weeks 2 days , 42% AC: 30.7 cm cm; 34 weeks 4 days, 80% FL: 6.6 cm cm; 34 weeks 1 days; 65.9 % % EFW: 2438.4 grams, 5 lbs. 6 oz., 81% FL/AC: 21.6 FL/BPD: 76.7 HC/AC: 1.0 GESTATIONAL AGE: Age by EDC: 33 weeks 1 days ELPIDIO by EDC: 01/02/2024 Age by US: 34 weeks 3 days ELPIDIO by US: 12/24/2023 US/US OB growth IMPRESSION: Normal interval growth Electronically authenticated by: PEDRO LAZCANO Date: 11/15/2023 08:46 Dictated By: Pedro Lazcano M.D. Signed By: 11/15/2348 DD/ 5 TD/TT: Wig Stylist: [facility] HOSPITALMaryellen HealthcareRadiology Study observation (narrative)[facility] OB GROWTHOrdered By: Radiologist Radiology on [id number] S. Truman Memorial [facility]' [facility] Work Phone: Urinalysis macro (dipstick) panel (U)on 09-15-2023 Bilirubin, UANegativeNegative - 4(70) +++ mg/dLNOMS HealthcareBlood, UANegative Negative - 50 Maikol/mcLNOMS HealthcareClarity, UAClearNOMS HealthcareColor, UA YellowNOMS HealthcareGlucose, UANegativeNegative - 2000(110) ++++ mg/dLNOME HealthcareInterpretation and review of laboratory resultsAbnormalNOFreeman Neosho Hospital Ketones, UANegativeNegative - 160(16) ++++ mg/dLNOMS HealthcareLeukocytes, UA NegativeNegative - 500+++ Endy/mcLNOMS HealthcareNitrite, UANegativeNegative - PositiveNOMS HealthcarepH, UA6.05 - 9NOMS HealthcareProtein, UATraceNegative - 2000(20) ++++ mg/dLNOMS HealthcareSpec Grav, UA1.0251 - 1.03N[facility] Healthcare Urobilinogen, UA0.20.2 - 12 mg/dLNOMS HealthcareNOMS HealthcareNo Panel InformationOrdered By: Radiologist Radiology on 24-10-4479COSUHarry S. [facility] Work Phone: No Panel Informationon [id number] Study observation (narrative)NOMS HealthcareUS OB ANATOMYon 74-10-3429[place] [address] Ultrasound Report Signed Patient: TIFFANI ALLISON MR#: [id number] : 1985 Acct:[id number] Age/Sex: 37 / F ADM Date: 08/18/23 Loc: US Attending Dr: Adrian Kerr D.O. Ordering Physician: Adrian Kerr D.O. Date of Service: 08/18/23 Procedure(s): US OB anatomy Accession Number(s): [id number] cc: Adrian Kerr D.O.; YANDEL MORE M.D. [address] [address] Patient Name: TIFFANI ALLISON MRN: [id number] date: 1985 Sex: F Assigned Patient Location: US Current Patient Location: US Accession/Order Number: [id number] Exam Date: 08/18/2023 11:06 Report Date: 08/18/2023 12:45 At the request of: ADRIAN KERR Procedure: US OB anatomy EXAMINATION: US OB anatomy, US OB cervical length HISTORY: ANATOMY COMPARISON: No relevant comparison available. TECHNIQUE: Transabdominal sonographic examination was performed for obstetrical and evaluation. FINDINGS: Number: 1 Heart Rate: 157.0 bpm H.B. /min Amniotic Fluid Volume: Subjectively normal Placental Location: Posterior. Placental edge 5.1 cm from the internal cervical os position: Cephalic Cervix Length: 5.4 cm, closed Normal anatomy: Lateral ventricles, cerebellum, posterior fossa, nose, lips, orbits, four-chamber heart, diaphragm, stomach, kidneys, abdominal cord insertion, bladder, umbilical arteries, spine, extremities Suboptimal visualization: RVOT, LVOT Nonvisualization: Three-vessel cord BIOMETRY: BPD: 4.9 cm 20 weeks 6 days , 67% HC: 18.7 cm 21 weeks 0 days, 70% AC: 15.1 cm 20 weeks 2 days, 40% FL: 3.4 cm 20 weeks 4 days, 48% EFW:359.5 grams; 13 ounces, 51% FL/AC: 22.4 FL/BPD: 68.8 HC/AC: 1.2 GESTATIONAL AGE: Age by EDC: 20 weeks 3 days Age by current US: 20 weeks 5 days ELPIDIO by current US: 12/31/2023 ELPIDIO by EDC: 01/02/2024 US/US OB anatomy IMPRESSION: Suboptimal visualization of the ventricular outflow tracts Nonvisualization three-vessel cord Otherwise normal anatomy scan Closed cervix measuring 5.4 cm *Reference: [employer]UM Practice Guideline for the performance of Obstetric Ultrasound Examinations, May 01, 2007. Electronically authenticated by: PEDRO LAZCANO Date: 08/18/2023 12:45 Dictated By: Pedro Lazcano M.D. Signed By: 08/18/23 1248 DD/ 1245 TD/TT: Wig Stylist:TBHRadiology, Radiologist, - 08/18/2023 [place] [address] Ultrasound Report Signed Patient: TIFFANI ALLISON MR#: [id number] : 1985 Acct:[id number] Age/Sex: 37 / F ADM Date: 08/18/23 Loc: US Attending Dr: Adrian Kerr D.O. Ordering Physician: Adrian Kerr D.O. Date of Service: 08/18/23 Procedure(s): US OB anatomy Accession Number(s): [id number] cc: Adrian Kerr D.O.; YANDEL MORE M.D. [address] [address] Patient Name: TIFFANI ALLISON MRN: [id number] date: 1985 Sex: F Assigned Patient Location: US Current Patient Location: Accession/Order Number: [id number] Exam Date: 08/18/2023 11:06 Report Date: 08/18/2023 12:45 At the request of: ADRIAN KERR Procedure: US OB anatomy EXAMINATION: US OB anatomy, US OB cervical length HISTORY: ANATOMY COMPARISON: No relevant comparison available. TECHNIQUE: Transabdominal sonographic examination was performed for obstetrical and evaluation. FINDINGS: Number: 1 Heart Rate: 157.0 bpm H.B. /min Amniotic Fluid Volume: Subjectively normal Placental Location: Posterior. Placental edge 5.1 cm from the internal cervical os position: Cephalic Cervix Length: 5.4 cm, closed Normal anatomy: Lateral ventricles, cerebellum, posterior fossa, nose, lips, orbits, four-chamber heart, diaphragm, stomach, kidneys, abdominal cord insertion, bladder, umbilical arteries, spine, extremities Suboptimal visualization: RVOT, LVOT Nonvisualization: Three-vessel cord BIOMETRY: BPD: 4.9 cm 20 weeks 6 days , 67% HC: 18.7 cm 21 weeks 0 days, 70% AC: 15.1 cm 20 weeks 2 days, 40% FL: 3.4 cm 20 weeks 4 days, 48% EFW:359.5 grams; 13 ounces, 51% FL/AC: 22.4 FL/BPD: 68.8 HC/AC: 1.2 GESTATIONAL AGE: Age by EDC: 20 weeks 3 days Age by current US: 20 weeks 5 days ELPIDIO by current US: 12/31/2023 ELPIDIO by EDC: 01/02/2024 US/US OB anatomy IMPRESSION: Suboptimal visualization of the ventricular outflow tracts Nonvisualization three-vessel cord Otherwise normal anatomy scan Closed cervix measuring 5.4 cm *Reference: AIUM Practice Guideline for the performance of Obstetric Ultrasound Examinations, May 01, 2007. Electronically authenticated by: PEDRO LAZCANO Date: 08/18/2023 12:45 Dictated By: Pedro Lazcano M.D. Signed By: 08/18/23 1248 DD/ 1245 TD/TT: Wig Stylist: KRISTA Jaramillo OB CERVICAL LENGTHon 83-71-1087[place] [address] Ultrasound Report Signed Patient: TIFFANI ALLISON MR#: [id number] : 1985 Acct:[id number] Age/Sex: 37 / F ADM Date: 08/18/23 Loc: US Attending Dr: Adrian Kerr D.O. Ordering Physician: Adrian Kerr D.O. Date of Service: 08/18/23 Procedure(s): US OB cervical length Accession Number(s): [id number] cc: Adrian Kerr D.O.; YANDEL MORE M.D. [place] [address] Patient Name: TIFFANI ALLISON MRN: [id number] date: 1985 Sex: F Assigned Patient Location: Current Patient Location: US Accession/Order Number: [id number] Exam Date: 08/18/2023 11:06 Report Date: 08/18/2023 12:45 At the request of: ADRIAN KERR Procedure: US OB cervical length EXAMINATION: US OB anatomy, US OB cervical length HISTORY: ANATOMY COMPARISON: No relevant comparison available. TECHNIQUE: Transabdominal sonographic examination was performed for obstetrical and evaluation. FINDINGS: Number: 1 Heart Rate: 157.0 bpm H.B. /min Amniotic Fluid Volume: Subjectively normal Placental Location: Posterior. Placental edge 5.1 cm from the internal cervical os position: Cephalic Cervix Length: 5.4 cm, closed Normal anatomy: Lateral ventricles, cerebellum, posterior fossa, nose, lips, orbits, four-chamber heart, diaphragm, stomach, kidneys, abdominal cord insertion, bladder, umbilical arteries, spine, extremities Suboptimal visualization: RVOT, LVOT Nonvisualization: Three-vessel cord BIOMETRY: BPD: 4.9 cm 20 weeks 6 days , 67% HC: 18.7 cm 21 weeks 0 days, 70% AC: 15.1 cm 20 weeks 2 days, 40% FL: 3.4 cm 20 weeks 4 days, 48% EFW:359.5 grams; 13 ounces, 51% FL/AC: 22.4 FL/BPD: 68.8 HC/AC: 1.2 GESTATIONAL AGE: Age by EDC: 20 weeks 3 days Age by current US: 20 weeks 5 days ELPIDIO by current US: 12/31/2023 ELPIDIO by EDC: 01/02/2024 US/US OB cervical length IMPRESSION: Suboptimal visualization of the ventricular outflow tracts Nonvisualization three-vessel cord Otherwise normal anatomy scan Closed cervix measuring 5.4 cm *Reference: AIUM Practice Guideline for the performance of Obstetric Ultrasound Examinations, May 01, 2007. Electronically authenticated by: PEDRO LAZCANO Date: 08/18/2023 12:45 Dictated By: Pedro Lazcano M.D. Signed By: 08/18/23 1248 DD/ 1245 TD/TT: Wig Stylist:ISAÍASadiologfrank, Radiologist, - 08/18/2023 [place] [address] Ultrasound Report Signed Patient: TIFFANI ALLISON MR#: [id number] : 1985 Acct:[id number] Age/Sex: 37 / F ADM Date: 08/18/23 Loc: US Attending Dr: Adrian Kerr D.O. Ordering Physician: Adrian Kerr D.O. Date of Service: 08/18/23 Procedure(s): US OB cervical length Accession Number(s): [id number] cc: Adrian Kerr D.O.; YANDEL MORE M.D. The [place] [address] Patient Name: TIFFANI ALLISON MRN: [id number] date: 1985 Sex: F Assigned Patient Location: US Current Patient Location: US Accession/Order Number: [id number] Exam Date: 08/18/2023 11:06 Report Date: 08/18/2023 12:45 At the request of: ADRIAN KERR Procedure: US OB cervical length EXAMINATION: US OB anatomy, US OB cervical length HISTORY: ANATOMY COMPARISON: No relevant comparison available. TECHNIQUE: Transabdominal sonographic examination was performed for obstetrical and evaluation. FINDINGS: Number: 1 Heart Rate: 157.0 bpm H.B. /min Amniotic Fluid Volume: Subjectively normal Placental Location: Posterior. Placental edge 5.1 cm from the internal cervical os position: Cephalic Cervix Length: 5.4 cm, closed Normal anatomy: Lateral ventricles, cerebellum, posterior fossa, nose, lips, orbits, four-chamber heart, diaphragm, stomach, kidneys, abdominal cord insertion, bladder, umbilical arteries, spine, extremities Suboptimal visualization: RVOT, LVOT Nonvisualization: Three-vessel cord BIOMETRY: BPD: 4.9 cm 20 weeks 6 days , 67% HC: 18.7 cm 21 weeks 0 days, 70% AC: 15.1 cm 20 weeks 2 days, 40% FL: 3.4 cm 20 weeks 4 days, 48% EFW:359.5 grams; 13 ounces, 51% FL/AC: 22.4 FL/BPD: 68.8 HC/AC: 1.2 GESTATIONAL AGE: Age by EDC: 20 weeks 3 days Age by current US: 20 weeks 5 days ELPIDIO by current US: 12/31/2023 ELPIDIO by EDC: 01/02/2024 US/US OB cervical length IMPRESSION: Suboptimal visualization of the ventricular outflow tracts Nonvisualization three-vessel cord Otherwise normal anatomy scan Closed cervix measuring 5.4 cm *Reference: AIUM Practice Guideline for the performance of Obstetric Ultrasound Examinations, May 01, 2007. Electronically authenticated by: PEDRO LAZCANO Date: 08/18/2023 12:45 Dictated By: Pedro Lazcano M.D. Signed By: 08/18/23 1248 DD/ 1245 TD/TT: Wig Stylist: KRISTA NgFechris Free Cell DNAon 89-46-9654FxrZcxphd Health System OB TRANSVAGINALon 40-85-7911[address] [address] Ultrasound Report Signed Patient: Tiffani Allison MR#: [id number] : 1985 Acct:[id number] Age/Sex: 37 / F ADM Date: 05/13/23 Loc: US Attending Dr: Adrian Kerr D.O. Ordering Physician: Adrian Kerr D.O. Date of Service: 05/13/23 Procedure(s): US OB transvaginal Accession Number(s): [id number] cc: Adrian Kerr D.O.; YANDEL MORE M.D. The [address] [address] Patient Name: TIFFANI ALLISON MRN: [facility]:[id number] date: 1985 Sex: F Assigned Patient Location: US Current Patient Location: US Accession/Order Number: [id number] Exam Date: 05/13/2023 08:39 Report Date: 05/13/2023 15:14 At the request of: ADRIAN KERR Procedure: US OB transvaginal EXAMINATION: US OB transvaginal HISTORY: MISSED MENSES COMPARISON: No relevant comparison available. FINDINGS: GESTATIONAL SAC: Present and normal appearing. YOLK SAC: Present and normal appearing. POLE: Present and normal appearing. CARDIAC: Present. UTERUS: Normal size and appearance. OVARIES: Right: Normal. Left: Not seen. CERVIX: 4.8 cm in length and closed. CUL-DE-SAC: Normal. OTHER: None. AGE BY LMP: 6 weeks 4 days ELPIDIO BY LMP: 01/02/2024 AGE BY US CRL: 6 weeks 5 days ELPIDIO BY US CRL: 01/01/2024 US/US OB transvaginal IMPRESSION: 1. Single live intrauterine . Electronically authenticated by: JOIE AYALA Date: 05/13/2023 15:14 Dictated By: Joie Ayala M.D. Signed By: 05/13/23 1517 DD/ TD/TT: Wig Stylist:ANDREAHRadiology, Radiologist, MD - 05/13/2023 [place] [address] Ultrasound Report Signed Patient: Tiffani Allison MR#: [id number] : 1985 Acct:[id number] Age/Sex: 37 / F ADM Date: 05/13/23 Loc: US Attending Dr: Adrian Kerr D.O. Ordering Physician: Adrian Kerr D.O. Date of Service: 05/13/23 Procedure(s): US OB transvaginal Accession Number(s): [id number] cc: Adrian Kerr D.O.; YANDEL MORE M.D. [place] [address] Patient Name: TIFFANI ALLISON MRN: [facility]:[id number] date: 1985 Sex: F Assigned Patient Location: US Current Patient Location: US Accession/Order Number: [id number] Exam Date: 05/13/2023 08:39 Report Date: 05/13/2023 15:14 At the request of: ADRIAN KERR Procedure: US OB transvaginal EXAMINATION: US OB transvaginal HISTORY: MISSED MENSES COMPARISON: No relevant comparison available. FINDINGS: GESTATIONAL SAC: Present and normal appearing. YOLK SAC: Present and normal appearing. POLE: Present and normal appearing. CARDIAC: Present. UTERUS: Normal size and appearance. OVARIES: Right: Normal. Left: Not seen. CERVIX: 4.8 cm in length and closed. CUL-DE-SAC: Normal. OTHER: None. AGE BY LMP: 6 weeks 4 days ELPIDIO BY LMP: 01/02/2024 AGE BY US CRL: 6 weeks 5 days ELPIDIO BY US CRL: 01/01/2024 US/US OB transvaginal IMPRESSION: 1. Single live intrauterine . Electronically authenticated by: JIOE AYALA Date: 05/13/2023 15:14 Dictated By: Joie Ayala M.D. Signed By: 05/13/237 DD/ 13 TD/TT: Wig Stylist: KRISTA HealthcareRadiology Study observation (narrative)KRISTA HealthcareUS OB TRANSVAGINALOrdered By: Radiologist Radiology on 44-41-9697KSWJ [facility] Work Phone: HCG ( test) IA.rapid Ql (U)Ordered By: Denys Gallego on 39-21-9035KWK ( test) Ql (U)NegativeProvidence Hospital AUTO DIFFon 30-42-2453LYVY #0.0 103/ulNormal0.0-0.1 The [facility] SystemComment on above:Performed By: #### FERR, FETIBC #### [facility] [address] [place] [address] Dr. Michele ObrienBasophils/100 WBC (Bld)0.5 %Normal0.2-2.0[facility] Comment on above:Performed By: #### FERR, FETIBC #### [facility] [address] [place] [address] Dr. Michele Rodriguez #0.2 103/ulNormal0.0-0.7The [facility] Health SystemComment on above: Performed By: #### FERR, FETIBC #### [facility] [address] [place] [address] Dr. Michele Haysosinophils/100 WBC (Bld)2.6 %Normal0.9-7.0[facility] Comment on above:Performed By: #### FERR, FETIBC #### [facility] [address] [place] [address] Dr. Michele Haysrythrocyte distribution width (RBC) [Ratio]19.1 %Critically high 11.0-15.0The [facility] SystemComment on above:Performed By: #### FERR, FETIBC #### [facility] [address] [place] [address] Dr. Michele ObrienHematocrit (Bld) [Volume fraction]37.6 %Ukcwcn41.0-48.0The [facility] SystemComment on above:Performed By: #### FERR, FETIBC #### [facility] [address] [place] [address] Dr. Michele ObrienHemoglobin (Bld) [Mass/Vol]11.9 g/dLCritically low12.0-16.0The [facility] SystemComment on above:Performed By: #### FERR, FETIBC #### [facility] [address] [place] [address] Dr. Michele Higgins #0.03 10e3/ulNormal0.00-0.03The [facility] SystemComment on above:Performed By: #### FERR, FETIBC #### [facility] [address] [place] [address] Dr. Michele Higgins %0.3 %Normal0.0-0.5The [facility] SystemComment on above: Performed By: #### FERR, FETIBC #### [facility] [address] [place] [address] Dr. Michele Pérez #1.6 103/ulNormal1.2-3.8The [facility] SystemComment on above:Performed By: #### FERR, FETIBC #### [facility] [address] [place] [address] Dr. Michele Gomezhocytes/100 WBC (Bld)18.4 %Critically low20.5-60.0The [facility] SystemComment on above:Performed By: #### FERR, FETIBC #### [facility] [address] [place] [address] Dr. Michele SotoUAL DIFF REQNONormalThe [facility] Health SystemComment on above: Performed By: #### FERR, FETIBC #### [facility] [address] [place] [address] Dr. Michele Briones (RBC) [Entitic mass]23.7 pgCritically low26.7-34.0The [facility] SystemComment on above:Performed By: #### FERR, FETIBC #### [facility] [address] [place] [address] Dr. Michele Briones (RBC) [Mass/Vol]31.6 g/mEOalgff47.9-35.2The [facility] SystemComment on above:Performed By: #### FERR, FETIBC #### [facility] [address] [place] [address] Dr. Michele Briones (RBC) [Entitic vol]74.9 fLCritically low81.0-99.0The [facility] SystemComment on above:Performed By: #### FERR, FETIBC #### [facility] [address] [place] [address] Dr. Michele Hagen #0.5 103/ulNormal0.3-0.8The [facility] Health SystemComment on above:Performed By: #### FERR, FETIBC #### [facility] [address] [place] [address] Dr. Michele Stinsonocytes/100 WBC (Bld)5.9 %Normal1.7-12.0[facility] Comment on above:Performed By: #### FERR, FETIBC #### [facility] [address] [place] [address] Dr. Michele Wilson #6.4 103/ulNormal1.4-6.5The [facility] SystemComment on above:Performed By: #### FERR, FETIBC #### [facility] [address] [place] [address] Dr. Michele Tamezutrophils/100 WBC (Bld)72.3 %Ssutln33.0-75.0The [facility] Health SystemComment on above:Performed By: #### FERR, FETIBC #### [facility] [address] [place] [address] Dr. Michele Sue mean volume (Bld) [Entitic vol]10.2 fLNormal9.5-13.5The [facility] Health SystemComment on above:Performed By: #### FERR, FETIBC #### [facility] [address] [place] [address] Dr. Michele ObrienPLT243 103/hgEquuzk798-343Jws [facility] SystemComment on above: Performed By: #### FERR, FETIBC #### [facility] [address] [place] [address] Dr. Michele ObrienRBC5.02 106/ulNormal4.20-5.40The [facility] SystemComment on above:Performed By: #### FERR, FETIBC #### [facility] [address] [place] [address] Dr. Michele ObrienWBC8.9 103/ulNormal4.0-11.0[facility] Toledoment on above: Performed By: #### FERR, FETIBC #### [facility] [address] [place] [address] Dr. Michele Rousseau ABD/PELVIS WO CONon 39-51-8337PN ABD/PELVIS WO CONEXAMINATION: CT ABD/PELVIS WO CON, 12/27/2022 8:45 PM [...] changes from gastric sleeve. Small hiatal hernia. Peritoneum/retroperitoneum: No significant finding. Lymph nodes: No significant finding. Vessels: No significant finding. Body wall: Tiny fat-containing umbilical hernia. Reproductive: IUD in place. Bones: No significant finding. IMPRESSION: Punctate right UVJ calculus with mild right hydroureteronephrosis. Borderline splenomegaly. Small hiatal hernia. Electronically authenticated by: ALEXA WHITE Date: 2022-12-28 02:25[facility] URINE PROFILEon 89-91-1617Iojohevkj Ql (U)NegativeNormal NEGATIVEThe [facility]als Health SystemComment on above:Performed By: #### HIV12 #### [facility] [address] [place] [address] Dr. Michele Medel (U)CLEARNormalCLEARThe [facility] Health SystemComment on above: Performed By: #### HIV12 #### [facility] [address] [place] [address] [address] Michele Irizarry (U)LT. YELLOWNormalYELLOWThe [facility]als Health SystemComment on above:Performed By: #### HIV12 #### [facility] [address] [place] [address] Dr. Michele Chadwick micrscopic examination will be performed if indicated. NormalThe [facility]als Health SystemComment on above:Performed By: #### HIV12 #### [facility] [address] [place] [address] [address] Michele ObrienGlucose Ql (U)NegativeNormalNEGATIVELakehealth Tripoint Medical CenterComment on above:Performed By: #### HIV12 #### [facility] [address] [place] [address] [address] Michele ObrienHemoglobin Ql (U)MODERATEAbnormalNEGATIVELakehealth Tripoint Medical Center Comment on above:Performed By: #### HIV12 #### [facility] [address] [place] [address] [address] Michele ObrienKetones Ql (U)NegativeNormalNEGATIVELakehealth Tripoint Medical CenterComment on above:Performed By: #### HIV12 #### [facility] [address] [place] [address] Dr. Michele ObrienLEUKOCYTESNegativeNormalNEGATIVELakehealth Tripoint Medical CenterComment on above:Performed By: #### HIV12 #### [facility] [address] [place] [address] Dr. Michele ObrienNitrite Ql (U)NegativeNormalNEGATIVELakehealth Tripoint Medical CenterComment on above:Performed By: #### HIV12 #### [facility] [address] [place] [address] [address] Michele ObrienpH (U)5.5 [pH]Normal5-9Lake[facility] Tripoint Medical CenterComment on above: Performed By: #### HIV12 #### [facility] [address] [place] [address] [address] Michele ObrienSPEC GRAVITY1.803Bvcdey2.005-<=1.025Lakehealth Tripoint Medical CenterComment on above:Performed By: #### HIV12 #### [facility] [address] [place] [address] Dr. Michele Salazar PROTEINNegativeSaint Luke'S Health SystemalNEGATIVE/ TRACELakehealth Tripoint Medical Center Comment on above:Performed By: #### HIV12 #### [facility] [address] [place] [address] [address] Michele Perez MICRO INDINDICATEDNoalThSt. John of God HospitalComment on above: Performed By: #### HIV12 #### [facility] [address] [place] [address] Dr. Michele Barcenas Qn (U)0.2 {Ijeoma'U}/dLNormal0.2 - 1.0[facility] on above:Performed By: #### HIV12 #### [facility] [address] [place] [address] Dr. Michele Fuchs HCG QUALon 73-17-9233TFIJSZKTT, QUALNegativeNormalNEGATIVE The [facility] SystemComment on above:Performed By: #### PREG #### [facility] [address] [place] [address] Dr. Michele Pena 14(COMP METB)on 63-82-8846Vopjajb [Mass/Vol]3.4 g/dLNormal 3.4-5.0The [facility] SystemComment on above:Performed By: #### CMP #### [facility] [address] [place] [address] Dr. Michele ObrienAlbumin/Globulin [Mass ratio]1.1 {ratio}NormalThe [facility] Hospital - Akronment on above:Performed By: #### CMP #### [facility] [address] [place] [address] Dr. Michele Carranza [Catalytic activity/Vol]73 U/VIrfcxd04-890Yrz [facility] - Akronment on above:Performed By: #### CMP #### [facility] [address] [place] [address] Dr. Michele Glover [Catalytic activity/Vol]18 U/AJdbojc69-41Cpi [facility] Akronment on above:Performed By: #### CMP #### [facility] [address] [place] [address] Dr. Michele Bautista gap [Moles/Vol]11.9 mmol/LNormalThe [facility] on above:Performed By: #### CMP #### [facility] [address] [place] [address] Dr. Michele ObrienAST [Catalytic activity/Vol]13 U/LCritically ufb17-67Kfe [facility] SystemComment on above:Performed By: #### CMP #### [facility] [address] [place] [address] [address] Michele ObrienBilirubin [Mass/Vol]0.1 mg/dLCritically low0.2-1.0The [facility] SystemComment on above:Performed By: #### CMP #### [facility] [address] [place] [address] Dr. Michele ObrienCalcium [Mass/Vol]8.6 mg/dLNormal8.5-10.1The [facility] Comment on above:Performed By: #### CMP #### [facility] [address] [place] [address] Dr. Michele ObrienChloride [Moles/Vol]105 mmol/OFkvhnd81-788Ewu [facility] Comment on above:Performed By: #### CMP #### [facility] [address] [place] [address] Dr. Michele ObrienCO2 [Moles/Vol]26.7 mmol/WVtxmjz30.0-32.0[facility] Comment on above:Performed By: #### CMP #### [facility] [address] [place] [address] Dr. Michele ObrienCreatinine [Mass/Vol]0.85 mg/dLNormal0.55-1.02The [facility] SystemComment on above:Performed By: #### CMP #### [facility] [address] [place] [address] Dr. Michele HaysGFR-AF WELSH>60Normal>=60The [facility] SystemComment on above:Performed By: #### CMP #### [facility] [address] [place] [address] Dr. Michele HaysGFR-NON AF WELSH>60Normal>=60The [facility] SystemComment on above:Performed By: #### CMP #### [facility] [address] [place] [address] Dr. Michele ObrienGlobulin (S) [Mass/Vol]3.1 g/dLNormalThe Tariq HospitalComment on above:Performed By: #### CMP #### [facility] [address] [address] [address] Michele ObrienGlucose [Mass/Vol]123 mg/dLCritically jjri76-584Xrv [facility] SystemComment on above:Performed By: #### CMP #### [facility] [address] [address] [address] Michele ObrienPotassium [Moles/Vol]3.6 mmol/LNormal3.5-5.1The [facility] Comment on above:Performed By: #### CMP #### [facility] [address] [address] [address] Michele ObrienProtein [Mass/Vol]6.5 g/dLNormal6.4-8.2[facility] Comment on above:Performed By: #### CMP #### [facility] [address] [address] [address] Michele ObrienSodium [Moles/Vol]140 mmol/PZdybda462-835Xtx [facility] Comment on above:Performed By: #### CMP #### [facility] [address] [address] [address] Michele ObrienUrea nitrogen [Mass/Vol]14.0 mg/dLNormal7.0-18.0The [facility] SystemComment on above:Performed By: #### CMP #### [facility] [address] [address] [address] Michele Colin nitrogen/Creatinine [Mass ratio]16.5 mg/mgNoPremier Health Miami Valley HospitalComment on above:Performed By: #### CMP #### [facility] [address] [address] [address] Michele ObrienURINE MICROSCOPIC ONLYon 02-45-0877HSRSJAELUJPAGVmyqavtoXBIG SEEN [facility] CenterComment on above:Performed By: #### HIV12 #### [facility] [address] [address] [address] Michele ObrienBacteria identified Cx Nom (U)NOT INDICATEDNormalThe Tariq HospitalComment on above:Performed By: #### HIV12 #### [facility] [address] [place] [address] Dr. Michele ObrienCASTDAREN SEENNormalNONE SEENOur [facility] on above:Performed By: #### HIV12 #### [facility] [address] [place] [address] Dr. Michele ObrienCrystals LM Nom (Urine sed)NONE SEENNormalNONE SEENThe [facility] SystemComthree [facility] on above:Performed By: #### HIV12 #### [facility] [address] [place] [address] Dr. Bautista ChangEpithelial cells LM Ql (Urine sed)FEWAbnormalNONE SEEN /RAREThe [facility] on above:Performed By: #### HIV12 #### [facility] [address] [place] [address] Dr. Michele OakleyCOUSTRACEAbnormalNONE SEENOur [facility] of [facility] on above:Performed By: #### HIV12 #### [facility] [address] [place] [address] Dr. Michele ObrienVluxtXUU33-90Ngqobzjf0-2Ybj [facility] on above: Performed By: #### HIV12 #### [facility] [address] [place] [address] Dr. Michele ObrienWBC0-2AbnormalNONE SEENOur [facility] of [facility] on above: Performed By: #### HIV12 #### [facility] [address] [place] [address] Dr. Michele Crane 1 AND 2 WITH REFLEXon 48-36-4404KNG Screen 4th Generation wRfxNon-ReactiveNormalNon ReactiveThe [facility] on above:Result Comment: HIV Negative HIV-1/HIV-2 antibodies and HIV-1 p24 antigen were NOT detected. There is no laboratory evidence of HIV infection.Performed By: #### HIV12 #### [facility] [address] [place] [address] Dr. Michele ObrienFERRITINon 49-42-2581Ldutcpix [Mass/Vol]6.0 ng/mLCritically low 6.2-137.0The [facility] SystemComment on above:Performed By: #### FERR, FETIBC #### [facility] [address] [place] [address] Dr. Michele ObrienFRELSA T3on 54-64-2424PAWQ T31.87 pg/mlLCritically low2.18-3.98The [facility] SystemComment on above:Performed By: #### HIV12 #### [facility] [address] [place] [address] Dr. Michele ObrienHEMOGRAM AND PLATELon 62-14-8409Ypakmlzrgo (Bld) [Volume fraction]35.7 %Critically low36.0-48.0The [facility] SystemComment on above: Performed By: #### HH #### [facility] [address] [place] [address] Dr. Michele ObrienHemoglobin (Bld) [Mass/Vol]10.4 g/dLCritically low12.0-16.0The [facility] SystemComment on above:Performed By: #### HH #### [facility] [address] [place] [address] Dr. Michele Briones (RBC) [Entitic mass]20.0 pgCritically low26.7-34.0The [facility] Akronment on above:Performed By: #### HH #### [facility] [address] [place] [address] Dr. Michele Briones (RBC) [Mass/Vol]29.1 g/dLCritically low29.9-35.2The [facility] SystemComment on above:Performed By: #### HH #### [facility] [address] [place] [address] Dr. Michele Briones (RBC) [Entitic vol]68.5 fLCritically low81.0-99.0The [facility] SystemComment on above:Performed By: #### HH #### [facility] [address] [place] [address] Dr. Michele ObrienPLT241 103/zqRktsxu946-499Cdc [facility] SystemComment on above: Performed By: #### HH #### [facility] [address] [place] [address] Dr. Michele ObrienRBC5.21 106/ulNormal4.20-5.40The [facility] SystemComment on above:Performed By: #### HH #### [facility] [address] [place] [address] Dr. Michele ObrienWBC6.9 103/ulNormal4.0-11.0The [facility] SystemComment on above: Performed By: #### HH #### [facility] [address] [place] [address] Dr. Michele Kee AND TIBCon 10-16-2022% SATURATION4.5 %NormalThe [facility] SystemComment on above:Performed By: #### GIBRAN FETIBC #### [facility] [address] [place] [address] Dr. Michele Kee [Mass/Vol]18.0 ug/dLCritically low50.0-170.0The [facility] SystemComment on above:Performed By: #### GIBRAN FETIBC #### [facility] [address] [place] [address] Dr. Michele Campbell NKZPMV062.0 ug/jYCcxars334.0-450.0[facility] Comment on above:Performed By: #### GIBRAN, FETIBC #### [facility] [address] [place] [address] Dr. Michele Crockett W/ REFLEX TO FT4on 48-88-1240HJA5.577 uIU/mLNormal0.358-3.740 [facility] CenterComment on above:Performed By: #### HIV12 #### [facility] [address] [place] [address] Dr. Michele ObrienVITAMIN Con 69-04-6193Wtiinie C0.2 mg/dLCritically low0.4-2.0[facility] CenterComment on above:Result Comment: Vitamin C deficiency is generally defined as plasma or serum concentrations less than 0.2 mg/dL and levels between 0.2 and 0.4 mg/dL are considered low.Performed By: #### GIBRAN FETIBC #### [facility] [address] [place] [address] Dr. Michele Hernandez Aon 13-00-8685Eukosit A33.6 ug/zPZzeuwi45.9-57.3The [facility] SystemComment on above:Result Comment: Reference intervals for vitamin A determined from [facility] internal studies. Individuals with vitamin A less than 20 ug/dL are considered vitamin A deficient and those with serum concentrations less than 10 ug/dL are considered severely deficient. . This test was developed and its performance characteristics determined by [facility]. It has not been cleared or approved by the Food and Drug Administration.Performed By: #### VITAMA #### [facility] [address] [place] [address] Dr. Michele ObrienVITAMIN Kodi 99-63-6387Xscybsx E (Alpha T)11.9 mg/LNormal5.9-19.4 The [facility] SystemComment on above:Performed By: #### VITAE #### [facility] [address] [place] [address] Dr. Michele ObrienVitamin E (Gamma T)1.5 mg/LNormal0.7-4.9The [facility] Comment on above:Result Comment: Reference intervals for alpha and gamma- tocopherol determined from National Health and Nutrition Examination Survey, 6913-8601. Individuals with alpha-tocopherol levels less than 5.0 mg/L are considered vitamin E deficient.Performed By: #### VITAE #### [facility] [address] [place] [address] Dr. Michele ObrienVITAMIN Garrett 53-27-8374Jcagkgq K10.24 ng/mLNormal0.10-2.20The [facility] SystemComment on above:Performed By: #### GIBRAN FETIBC #### [facility] [address] [place] [address] Dr. Michele ObrienSECHAYOIUM, PLASMAon 56-48-1655Iqwkxfxu, Serum/Phwykl343 ug/LNormal 93-198The [facility] SystemComment on above:Performed By: #### HIV12 #### [facility] [address] [place] [address] Dr. Michele ObrienVITAMIN B1 (THIAMINE)on 38-44-0029Enm. B1, Whole Wprih061.2 nmol/DAvkluz44.5-200.0The [facility] Akronment on above:Performed By: #### RILEY LEARY #### [facility] [address] [place] [address] Dr. Michele Boland SERUM OR PLASMAon 49-87-8318Wlal, Plasma or Serum69 ug/dL Gnpkqa55-761Gwb [facility] SystemComthree [facility] on above:Result Comment: Detection Limit = 5Performed By: #### HIV12 #### [facility] [address] [place] [address] Dr. Michele ObrienFERRITINon 61-48-6918Oknaaubz [Mass/Vol]5.0 ng/mLCritically low 6.2-137.0[facility] on above:Performed By: #### RILEY LEARY #### [facility] [address] [place] [address] Dr. Michele ObrienFREE T4on 24-79-8072Zeaw T4 [Mass/Vol]1.01 ng/dLNormal0.76-1.46 [facility] on above:Performed By: #### HIV12 #### [facility] [address] [place] [address] Dr. Michele ObrienGLYCOHEMOGLOBIN A1Con 76-52-0337IYZ RECOMMENDATIONSEE BELOWNormal The [facility] SystemComthree rivers health hospital on above:Result Comment: ADA RECOMMENDED LIMIT 4.0 - 6.0 ADA THERAPEUTIC TARGET < 7.0 ACTION SUGGESTED > 7.0Performed By: #### HIV12 #### [facility] [address] [place] [address] Dr. Michele ObrienGlucose [Mass/Vol]80 mg/dLNormalThe [facility] on above:Performed By: #### HIV12 #### [facility] [address] [place] [address] Dr. Michele ObrienHbA1c (Bld) [Mass fraction]4.4 %Critically low4.5-6.2The [facility] SystemComment on above:Performed By: #### HIV12 #### [facility] [address] [place] [address] Dr. Michele ObrienHEMOGRAM AND PLATELon 62-73-2769Luipkafuus (Bld) [Volume fraction]29.3 %Critically low36.0-48.0The [facility] HospitalComment on above: Performed By: #### HIV12 #### [facility] [address] [place] [address] Dr. Michele ObrienHemoglobin (Bld) [Mass/Vol]9.3 g/dLCritically low12.0-16.0The [facility] SystemComment on above:Performed By: #### HIV12 #### [facility] [address] [place] [address] Dr. Michele BrionesH (RBC) [Entitic mass]20.1 pgCritically low26.7-34.0The [facility] SystemComment on above:Performed By: #### HIV12 #### [facility] [address] [place] [address] Dr. Michele BrionesHC (RBC) [Mass/Vol]31.7 g/lBWzdesf28.9-35.2The [facility] SystemComment on above:Performed By: #### HIV12 #### [facility] [address] [place] [address] Dr. Michele BrionesV (RBC) [Entitic vol]63.4 fLCritically low81.0-99.0The [facility] SystemComment on above:Performed By: #### HIV12 #### [facility] [address] [place] [address] Dr. Michele ObrienPLT213 103/lbDaqpbm280-712Kec [facility] SystemComment on above: Performed By: #### HIV12 #### [facility] [address] [place] [address] Dr. Michele ObrienRBC4.62 106/ulNormal4.20-5.40The [facility] SystemComment on above:Performed By: #### HIV12 #### [facility] [address] [place] [address] Dr. Michele ObrienWBC5.8 103/ulNormal4.0-11.0The [facility] SystemComment on above: Performed By: #### HIV12 #### [facility] [address] [place] [address] Dr. Michele Kee AND TIBCon 08-20-2022% SATURATION6.5 %NormalThe [facility] SystemComment on above:Performed By: #### FERR, FETIBC #### [facility] [address] [place] [address] Dr. Michele Kee [Mass/Vol]22.0 ug/dLCritically low50.0-170.0The [facility] SystemComment on above:Performed By: #### FERR, FETIBC #### [facility] [address] [place] [address] Dr. Michele ArguellesC DPIVYP728.0 ug/bCXddvil297.0-450.0[facility] Comment on above:Performed By: #### FERR, FETIBC #### [facility] [address] [place] [address] Dr. Michele ObrienLIPID PROFILEon 08-00-7666VKZR-HDL RATIO NORMSGrant HospitalComment on above:Result Comment: 3.3 - 4.4 LOW RISK 4.4 - 7.1 AVERAGE RISK 7.1 - 11.0 MODERATE RISK >11.0 HIGH RISKPerformed By: #### FERR, FETIBC #### [facility] [address] [place] [address] Dr. Michele ObrienCholesterol [Mass/Vol]146 mg/dLNormal<=200[facility] Comment on above:Performed By: #### FERR, FETIBC #### [facility] [address] [place] [address] Dr. Michele ObrienCholesterol in HDL [Mass/Vol]58 mg/sSDptlsj20-26Fgr [facility] SystemComment on above:Performed By: #### FERR, FETIBC #### [facility] [address] [address] [address] Michele ObrienCholesterol in LDL [Mass/Vol]66.8 mg/dLMercy Health Anderson HospitalComment on above:Performed By: #### FERR, FETIBC #### [facility] [address] [place] [address] Dr. Michele Esparzaesterol.total/Cholesterol in HDL [Mass ratio]2.5 {ratio} NormalThe [facility] SystemComment on above:Performed By: #### FERR, FETIBC #### [facility] [address] [place] [address] Dr. Michele Katz NORMAL> or = 60 mg/dl - LOW CARDIOVASCULAR RISK <40 mg/dl - HIGH CARDIOVASCULAR RISKMercy Health Anderson HospitalComment on above:Performed By: #### FERR, FETIBC #### [facility] [address] [place] [address] Dr. Michele Lubin CALC NORMALSEE BELOWMercy Health Anderson HospitalComment on above:Result Comment: <100 mg/dl OPTIMAL 100 - 129 mg/dl NEAR OR ABOVE OPTIMAL 130 - 159 mg/dl BORDERLINE HIGH 160 - 189 mg/dl HIGH >190 mg/dl VERY HIGH Performed By: #### FERR, FETIBC #### [facility] [address] [place] [address] Dr. Michele ObrienTriglyceride [Mass/Vol]106 mg/dLNormal<=150The [facility] Comment on above:Performed By: #### FERR, FETIBC #### [facility] [address] [place] [address] Dr. Michele MorganLDL CALC21.2 mg/dLNoPremier Health Miami Valley HospitalComment on above: Performed By: #### FERR, FETIBC #### [facility] [address] [place] [address] Dr. Michele ObrienPROElizabeth 14(COMP METB)on 97-42-2880Uhhiogl [Mass/Vol]3.5 g/dLNormal 3.4-5.0[facility] CenterComment on above:Performed By: #### FERR, FETIBC #### [facility] [address] [address] [address] Michele ObrienAlbumin/Globulin [Mass ratio]1.2 {ratio}NormalThe [facility] SystemComment on above:Performed By: #### FERR, FETIBC #### [facility] [address] [address] [address] Michele Carranza [Catalytic activity/Vol]76 U/TKnrlla36-291Ekw [facility] SystemComment on above:Performed By: #### FERR, FETIBC #### [facility] [address] [address] [address] Michele Glover [Catalytic activity/Vol]16 U/UJgwfsp25-83Kph [facility] SystemComment on above:Performed By: #### FERR, FETIBC #### [facility] [address] [address] [address] Michele Duncanon gap [Moles/Vol]10.0 mmol/LNormalThe [facility] Comment on above:Performed By: #### FERR, FETIBC #### [facility] [address] [address] [address] Michele ObrienAST [Catalytic activity/Vol]16 U/DBfjaqu03-38Koa [facility] Akronment on above:Performed By: #### FERR, FETIBC #### [facility] [address] [address] [address] Michele ObrienBilirubin [Mass/Vol]0.3 mg/dLNormal0.2-1.0The [facility] Comment on above:Performed By: #### FERR, FETIBC #### [facility] [address] [address] [address] Michele ObrienCalcium [Mass/Vol]8.5 mg/dLNormal8.5-10.1The [facility] Comment on above:Performed By: #### FERR, FETIBC #### [facility] [address] [address] [address] Michele ObrienChloride [Moles/Vol]106 mmol/ACzyuft61-572Iqh [facility] Comment on above:Performed By: #### FERR, FETIBC #### [facility] [address] [place] [address] Dr. Michele ObrienCO2 [Moles/Vol]30.8 mmol/STwtzof78.0-32.0The [facility] Comment on above:Performed By: #### FERR, FETIBC #### [facility] [address] [place] [address] Dr. Michele ObrienCreatinine [Mass/Vol]0.68 mg/dLNormal0.55-1.02The [facility] SystemComment on above:Performed By: #### FERR, FETIBC #### [facility] [address] [place] [address] Dr. Michele HaysGFR-AF WELSH>60Normal>=60The [facility] SystemComment on above:Performed By: #### FERR, FETIBC #### [facility] [address] [place] [address] Dr. Michele HaysGFR-NON AF WELSH>60Normal>=60The [facility] SystemComment on above:Performed By: #### FERR, FETIBC #### [facility] [address] [place] [address] Dr. Michele ObrienGlobulin (S) [Mass/Vol]2.8 g/dLNormalThe [facility] SystemComment on above:Performed By: #### FERR, FETIBC #### [facility] [address] [place] [address] Dr. Michele ObrienGlucose [Mass/Vol]77 mg/eLPpemlr71-133Ylg [facility] Comment on above:Performed By: #### FERR, FETIBC #### [facility] [address] [place] [address] Dr. Michele ObrienPotassium [Moles/Vol]3.8 mmol/LNormal3.5-5.1The [facility] Comment on above:Performed By: #### FERR, FETIBC #### [facility] [address] [place] [address] Dr. Michele ObrienProtein [Mass/Vol]6.3 g/dLCritically low6.4-8.2The [facility] SystemComment on above:Performed By: #### FERR, FETIBC #### [facility] [address] [place] [address] Dr. Michele ObrienSodium [Moles/Vol]143 mmol/TEezwge180-545Zik [facility] Comment on above:Performed By: #### FERR, FETIBC #### [facility] [address] [place] [address] Dr. Michele ObrienUrea nitrogen [Mass/Vol]10.0 mg/dLNormal7.0-18.0The [facility] SystemComment on above:Performed By: #### FERR, FETIBC #### [facility] [address] [place] [address] Dr. Michele ObrienUrea nitrogen/Creatinine [Mass ratio]14.7 mg/mgNormalThe [facility] SystemComment on above:Performed By: #### FERR, FETIBC #### [facility] [address] [place] [address] Dr. Michele ObrienTSHomary 37-62-7228UDH7.302 uIU/mLCritically high0.358-3.740The [facility] SystemComment on above:Performed By: #### FERR, FETIBC #### [facility] [address] [place] [address] Dr. Michele Beaulieu B12 AND FOLATEon 30-08-2987Xksfvaivr (Vitamin B12) [Mass/Vol] 433.0 pg/sNEumhby026.0-986.0The [facility] SystemComment on above:Performed By: #### B12FOL, VITAD #### [facility] [address] [place] [address] Dr. Michele ObrienFOLATE18.00 ng/mLNormal8.60-58.90The [facility] SystemComment on above:Performed By: #### B12FOL, VITAD #### [facility] [address] [place] [address] Dr. Michele ObrienVITAMIN D 25 OHon 03-42-5782WIF D 25-OH33.4 ng/mLNHolmes County Joel Pomerene Memorial HospitalComment on above:Performed By: #### B12FOL, VITAD #### [facility] [address] [place], [place] [address] Dr. Michele Singh [facility]ALSEE Kindred Hospital DaytonComment on above: Result Comment: <20 ng/mL Vit D deficient 20 - <30 ng/mL Vit D insufficient 30 - 100 ng/mL Vit D sufficient >100 ng/mL Potential ToxicityPerformed By: #### B12FOL, VITAD #### [facility] [address] [place], [place] [address] Dr. Michele Obrien Vital Signs Date TimeVital SignValuePerforming LuxqvcuawAincdlqi74-32-3873 09:56-0400Body .8 cmElisabeth Beckman APRN Work Phone: [phone]07-29-2025 09:56-0400 Body mass index (BMI) [Ratio]39.3 kg/y7JwhcizmwElisabeth Beckman HEALTH CARE SANITARY TECHNICIAN Work Phone: [phone]07-29-2025 09:56-0400 Body hehuwsxzorm13.6 [degF]Elisabeth Beckman HEALTH CARE SANITARY TECHNICIAN Work Phone: [phone]07-29-2025 09:56-0400 Body lymujj995.28 kgElisabeth Beckman HEALTH CARE SANITARY TECHNICIAN Work Phone: [phone]07-29-2025 09:56-0400 Diastolic blood bldpepoh94 mm[Hg]Elisabeth Beckman HEALTH CARE SANITARY TECHNICIAN Work Phone: [phone]07-29-2025 09:56-0400 Heart rate69 /minElisabeth Beckman HEALTH CARE SANITARY TECHNICIAN Work Phone: [phone]07-29-2025 09:56-0400 SaO2% (BldA) [Mass fraction]98 %Elisabeth Beckman APRN Work Phone: [facility]07-29-2025 09:56-0400 Systolic blood vmdrahct247 mm[Hg]Elisabeth Karuna HEALTH CARE SANITARY TECHNICIAN Work Phone: [facility]07-28-2025 10:25-0400 Body .8 cmRan Osullivan DPM Work Phone: [facility] HospitalGmkpsxzank82-35-2614 10:25-0400Body mass index (BMI) [Ratio]45.2 kg/j2LvxbzyqkRan Osullivan DPM Work Phone: [facility] HospitalKcciqxnath44-60-4053 10:25-0400Body .88 kgNicjanntete Osullivan DPM Work Phone: [facility] HospitalKeataesfsh45-89-8953 10:25-0400Respiratory rate16 /minNicjannette Osullivan DPM Work Phone: [facility] HospitalUfjrgqpwlc90-34-2729 10:59-0400Body naikll287.8 cmKibanner [facility] Raoul HEALTH CARE SANITARY TECHNICIAN.AUTOMATIC STEEL TIE ADJUSTER Work Phone: [facility]05-30-2025 10:59-0400Body mass index (BMI) [Ratio]41.61 kg/j6Qpmjvjjy Raoul HEALTH CARE SANITARY TECHNICIAN.AUTOMATIC STEEL TIE ADJUSTER Work Phone: [facility]05-30-2025 10:59-0400Body temperature 98.1 [degF][facility] HEALTH CARE SANITARY TECHNICIAN.AUTOMATIC STEEL TIE ADJUSTER Work Phone: [facility]05-30-2025 10:59-0400Body mwimku698.54 kgKierNorth [facility] HEALTH CARE SANITARY TECHNICIAN.AUTOMATIC STEEL TIE ADJUSTER Work Phone: [facility]05-30-2025 10:59-0400Diastolic blood qppmofom53 mm[Hg]Khoa [place] HEALTH CARE SANITARY TECHNICIAN.AUTOMATIC STEEL TIE ADJUSTER Work Phone: [facility]05-30-2025 10:59-0400Heart rate74 /min [facility] HEALTH CARE SANITARY TECHNICIAN.AUTOMATIC STEEL TIE ADJUSTER Work Phone: [facility]05-30-2025 10:59-0400Systolic blood vhcuqzof552 mm[Hg][facility] HEALTH CARE SANITARY TECHNICIAN.AUTOMATIC STEEL TIE ADJUSTER Work Phone: [facility]05-22-2025 11:05-0400Body .8 cm[facility]05[facility]2025 11:05-0400Body mass index (BMI) [Ratio]42.3 kg/g0ZqbhrkqekTrumbull Memorial Hospital05-22-2025 11:05-0400Body ckvhojwxyiq90.7 [degF][facility]05-22-2025 11:05-0400Body dbkbfo000.8 kgTr[facility]ull [facility] Hospital05-22-2025 11:05-0400Diastolic blood gsgtggfo81 mm[Hg][facility]05-22-2025 11:05-0400 Heart rate87 /minTr[facility]ull [facility] Hospital05-22-2025 11:05-5943QrR0% (BldA) [Mass fraction]97 %[facility]05-22-2025 11:05-0400 Systolic blood dwohbjcv549 mm[Hg][facility]05-16-2025 11:07-0400Body qjwiok351.8 cmJohn [facility] HEALTH CARE SANITARY TECHNICIAN.AUTOMATIC STEEL TIE ADJUSTER Work Phone: [facility]05-16-2025 11:07-0400Body mass index (BMI) [Ratio]41.75 kg/m0SwveuvyvJohn Muir [facility] HEALTH CARE SANITARY TECHNICIAN.AUTOMATIC STEEL TIE ADJUSTER Work Phone: [facility]05-16-2025 11:07-0400Body temperature 96.91 [degF][facility] HEALTH CARE SANITARY TECHNICIAN.AUTOMATIC STEEL TIE ADJUSTER Work Phone: [facility]05-16-2025 11:07-0400Body aijlxl652 kg [facility] HEALTH CARE SANITARY TECHNICIAN.AUTOMATIC STEEL TIE ADJUSTER Work Phone: [facility]05-16-2025 11:07-0400Diastolic blood snvcilzu59 mm[Hg][facility] HEALTH CARE SANITARY TECHNICIAN.AUTOMATIC STEEL TIE ADJUSTER Work Phone: [facility]05-16-2025 11:07-0400Heart rate85 /min [facility] HEALTH CARE SANITARY TECHNICIAN.AUTOMATIC STEEL TIE ADJUSTER Work Phone: [facility]05-16-2025 11:07-0400Systolic blood fzjaslvq848 mm[Hg][facility] HEALTH CARE SANITARY TECHNICIAN.AUTOMATIC STEEL TIE ADJUSTER Work Phone: [facility]05-07-2025 10:59-0400Body cjmmra432.8 cmKiPublic [facility] HEALTH CARE SANITARY TECHNICIAN.AUTOMATIC STEEL TIE ADJUSTER Work Phone: [phone]05-07-2025 10:59-0400Body mass index (BMI) [Ratio]42.47 kg/s2SlnbfdzfJohn Muir [facility] HEALTH CARE SANITARY TECHNICIAN.AUTOMATIC STEEL TIE ADJUSTER Work Phone: [phone]05-07-2025 10:59-0400Body temperature 97.3 [degF][facility] HEALTH CARE SANITARY TECHNICIAN.AUTOMATIC STEEL TIE ADJUSTER Work Phone: [facility]05-07-2025 10:59-0400Body .26 kgJohn [facility] HEALTH CARE SANITARY TECHNICIAN.AUTOMATIC STEEL TIE ADJUSTER Work Phone: [phone]05-07-2025 10:59-0400Diastolic blood xsjadqmu94 mm[Hg][facility] HEALTH CARE SANITARY TECHNICIAN.AUTOMATIC STEEL TIE ADJUSTER Work Phone: [facility]05-07-2025 10:59-0400Heart rate81 /min [facility] HEALTH CARE SANITARY TECHNICIAN.AUTOMATIC STEEL TIE ADJUSTER Work Phone: [facility]05-07-2025 10:59-0400Systolic blood vnnhalat397 mm[Hg][facility] HEALTH CARE SANITARY TECHNICIAN.AUTOMATIC STEEL TIE ADJUSTER Work Phone: [phone]04-08-2025 10:04-0400Body fwyiiz153.8 cmPacc 6 Work Phone: [phone]04-08-2025 10:04-0400Body mass index (BMI) [Ratio]45.52 kg/m2Pacc 6 Work Phone: [phone]04-08-2025 10:04-0400Body temperature 97 [degF]Pacc 6 Work Phone: [phone]04-08-2025 10:04-0400Body cyachb423.9 kgPacc 6 Work Phone: [facility]04-08-2025 10:04-0400Diastolic blood uuraestn80 mm[Hg]Pacc 6 Work Phone: [phone]04-08-2025 10:04-0400Heart rate78 /min Pacc 6 Work Phone: [phone]04-08-2025 10:04-3358WlC5% (BldA) [Mass fraction]98 %Pacc 6 Work Phone: [phone]04-08-2025 10:04-0400Systolic blood nqrwfkep646 mm[Hg]Pacc 6 Work Phone: [facility]04-03-2025 13:01-0400Body ntymnz742.8 cmNicholas Brown DPM Work Phone: [facility] HospitalEnpzqcsmwq89-52-3825 13:01-0400Body mass index (BMI) [Ratio]45.2 kg/c3Ibdeiaxp Brown DPM Work Phone: [phone] [place], [place] [address]Mdlzdbcznk94-66-8460 13:01-0400Body wrhqse624.88 kgNicholas Brown DPM Work Phone: [phone]-[facility] HospitalVckblerjpt26-36-1774 13:01-0400Respiratory rate16 /minNicholas Brown DPM Work Phone: [facility] HospitalAzcoqkclbh70-31-3792 09:44-0500Body .8 cmNicholas Brown DPM Work Phone: [facility] HospitalQmaklqjlby48-13-9404 09:44-0500Body mass index (BMI) [Ratio]45.2 kg/a0Yjkzenyt Brown DPM Work Phone: [facility] HospitalDeuzbhlexf78-21-3280 09:44-0500Body .88 kgNicholas Brown DPM Work Phone: [facility] HospitalWfgjwbydyh87-70-2786 09:44-0500Respiratory rate16 /minNicholas Brown DPM Work Phone: [phone] [place], [place] [address]Arecwkddxh42-55-5593 11:22-0500Body nhjzua619.8 cmTr[facility]ull [facility]02-14-2025 11:22-0500Body mass index (BMI) [Ratio]44.9 kg/g0ZtsgfmdanTrumbull Memorial Hospital02-14-2025 11:22-0500Body zmpmmtoadch88.8 [degF][facility]02-14-2025 11:0500Body .97 kgTr[facility]ull [facility] Hospital02-14-2025 11:22-0500Diastolic blood aowmxbog56 mm[Hg][facility]02-14-2025 11:22-0500 Heart rate93 /minTr[facility]ull [facility] Hospital02-14-2025 11:1007ZtJ0% (BldA) [Mass fraction]97 %[facility]02-14-2025 11:22-0500 Systolic blood vnrupakh143 mm[Hg][facility]02-03-2025 10:20-0500Body soirdb383.8 cmNicjannette Brown DPM Work Phone: [phone] [place], [place] [address]Xnunulobhg18-22-7964 10:20-0500Body mass index (BMI) [Ratio]45.2 kg/p7Baarwrec Brown DPM Work Phone: [facility] HospitalSyofxgyklq04-49-8084 10:20-0500Body rbfbfi488.88 kgNicjannette Brown DPM Work Phone: [facility] HospitalZhwwosoepb65-25-2082 10:20-0500Respiratory rate18 /minNicjannette Brown DPM Work Phone: [phone] [place], [place] [address]Slnhjrkrna62-56-4781 10:07-0500Body .8 [facility] PA Work Phone: [facility] HospitalGkwnutysat26-69-9975 10:07-0500Body mass index (BMI) [Ratio]43.62 kg/m2ToOwatonna Hospital PA Work Phone: noFreeman Neos[facility] HospitalFpvtpdikyr20-74-8847 10:07-0500Body rxzhul081.89 kgToOwatonna Hospital PA Work Phone: [facility] HospitalAkisclcygd34-71-0835 10:59-0500Body fektzt843.8 cmTr[facility]ull [facility] Hospital01-15-2025 10:59-0500Body mass index (BMI) [Ratio]46 kg/i0MtujwgtreTrumbull Memorial Hospital01-15-2025 10:59-0500Body cmqimszenzh59.3 [degF][facility]01-15-2025 10:59-0500Body lgucps863.65 kgTrumbull Memorial Hospital01-15-2025 10:59-0500Diastolic blood sfgqihts54 mm[Hg][facility]01-15-2025 10:59-0500 Heart rate78 /minTrumbull Memorial Hospital01-15-2025 10:59-2948IzS1% (BldA) [Mass fraction]98 %[facility]01-15-2025 10:59-0500 Systolic blood dgoatdkf436 mm[Hg][facility]11-20-2024 09:58-0500Body .8 [facility] PA Work Phone: [phone]11-20-2024 09:58-0500Body mass index (BMI) [Ratio]43.62 kg/m2[facility] Work Phone: [phone] [place], [place] 4535311-20-2024 09:58-0500Body eoinax913.89 kgHighland Hospital Work Phone: [phone]11-19-2024 09:39-0500Body boypzd893.8 cmLucas Shammo FASHION DESIGNER-BC Work Phone: [facility]11-19-2024 09:39-0500 Body mass index (BMI) [Ratio]43.7 kg/q1Osvik Shammo FASHION DESIGNER-BC Work Phone: [facility]11-19-2024 09:39-0500 Body .34 kgLucas Shammo FASHION DESIGNER-BC Work Phone: [facility]11-19-2024 09:39-0500 Diastolic blood byzetkvp75 mm[Hg]Yandel Shammo FASHION DESIGNER-BC Work Phone: [phone] [place], [place] 6523111-19-2024 09:39-0500 Heart rate74 /minYandel Shammo FASHION DESIGNER-BC Work Phone: [phone] [place], [place] 5494811-19-2024 09:39-0500 SaO2% (BldA) [Mass fraction]97 %Yandel Shammo FASHION DESIGNER-BC Work Phone: [phone] [place], [place] 5494811-19-2024 09:39-0500 Systolic blood ralmaoxg563 mm[Hg]Yandel Shammo FASHION DESIGNER-BC Work Phone: [phone]11-07-2024 13:17-0500 Body ynuazt688.[address] Work Phone: cTuscarawas HospitalHeooxk33-78-7196 13:17-0500Body mass index (BMI) [Ratio]43.76 kg/f7Atold Nadia RD Work Phone: cTuscarawas HospitalMhbaic52-46-7213 13:17-0500Body .[address] Work Phone: [facility] ClinicComment on above:yyhaid29-36-2932 14:03-0400Body mass index (BMI) [Ratio]43.62 kg/o0DqikiarRenetta Ruano MD Work Phone: [facility]10-24-2024 14:03-0400Body ykamsy882.89 kgRenetta Ruano MD Work Phone: [facility]10-24-2024 10:00-0400Body sjucup000.8 cmFNP-BC Yandel Shammo Work Phone: [phone]-[facility]10-24-2024 10:00-0400 Body mass index (BMI) [Ratio]43.7 kg/a7IVL-YP Yandel Shammo Work Phone: [phone] [place], [place] 5494810-24-2024 10:00-0400 Body hittpefzgkj01.4 [degF]FASHION DESIGNER-BC Yandel Shammo Work Phone: [phone] [place], [place] 5494810-24-2024 10:00-0400 Body ndkeyw294.06 kgFNP-BC Yandel Shammo Work Phone: [phone] [place], [place] 6523110-24-2024 10:00-0400 Diastolic blood dlijkpis02 mm[Hg]FASHION DESIGNER-BC Yandel Shammo Work Phone: [phone] [place], [place] 6523110-24-2024 10:00-0400 SaO2% (BldA) [Mass fraction]98 %FASHION DESIGNER-BC Yandel Shammo Work Phone: [phone] [place], [place] 6523110-24-2024 10:00-0400 Systolic blood altwqbhm380 mm[Hg]FASHION DESIGNER-BC Yandel Shammo Work Phone: [phone] [place], [place] 6523110-10-2024 10:45-0400 Body qiqucd356.8 cmFNP-BC Yandel Shammo Work Phone: [phone] [place], [place] 6523110-10-2024 10:45-0400 Body mass index (BMI) [Ratio]43.4 kg/f3XUL-VN Yandel Shammo Work Phone: [phone] [place], [place] 6523110-10-2024 10:45-0400 Body udevpg422.43 kgFNP-BC Yandel Shammo Work Phone: [phone] [place], [place] 6523110-10-2024 10:45-0400 Diastolic blood vzswakhg85 mm[Hg]FASHION DESIGNER-BC Yandel Shammo Work Phone: [phone] [place], [place] 6523110-10-2024 10:45-0400 Heart rate73 /minFNP-BC Yandel Shammo Work Phone: [phone] [place], [place] 6523110-10-2024 10:45-0400 Respiratory rate18 /minFNP-BC Yandel Shammo Work Phone: [phone] [place], [place] 6523110-10-2024 10:45-0400 SaO2% (BldA) [Mass fraction]98 %FASHION DESIGNER-BC Yandel Shammo Work Phone: [phone] [place], [place] 6523110-10-2024 10:45-0400 Systolic blood eaqozrko353 mm[Hg]FASHION DESIGNER-BC Yandel More Work Phone: [facility]09-24-2024 09:38-0400 Body mkfxmi240.8 cmAyse Grissom MD Work Phone: [facility]09-24-2024 09:38-0400Body mass index (BMI) [Ratio]43.81 kg/u0SdcimxAyse Grissom MD Work Phone: [facility]09-24-2024 09:38-0400Body .5 kgAyse Grissom MD Work Phone: [facility]09-24-2024 09:38-0400Diastolic blood mm[Hg]Ayse Grissom MD Work Phone: [facility]09-24-2024 09:38-0400Heart rate80 /min Ayse Grissom MD Work Phone: [facility]09-24-2024 09:38-0400Systolic blood gfegbhck979 mm[Hg]Ayse Grissom MD Work Phone: [facility]09-16-2024 14:36-0400Body tgxted804.8 Trudi Jeff MD Work Phone: [facility]09-16-2024 14:36-0400Body mass index (BMI) [Ratio]43.05 kg/j9WxbyyRocio Jeff MD Work Phone: [facility]09-16-2024 14:36-0400Body temperature 97.7 [degF]Rocio Jeff MD Work Phone: [facility]09-16-2024 14:36-0400Body ayjfiy166.08 kgRocio Jeff MD Work Phone: [facility]09-16-2024 14:36-0400Diastolic blood fkyrkzki10 mm[Hg]Rocio Jeff MD Work Phone: [place] [address]-16-2024 14:36-0400Heart rate72 /min Rocio Jeff MD Work Phone: [facility]09-16-2024 14:36-0400Systolic blood fbzdycpk879 mm[Hg]Rocio Jeff MD Work Phone: [facility]08-13-2024 10:03-0400Blood Pressure LocationMichael NILL [phone]-UgxraTrihealth [facility] [place] 03-13-2024 10:03-0400Diastolic blood mm[Hg]King NILL [phone]-YywqsTrihealth Mccullough-[facility] [place] 03-13-2024 10:03-0400Heart rate80 /minMichael NILL [phone]-EaxcfTrihealth [facility]cc[facility] [place] 03-13-2024 10:03-0400Respiratory rate16 /minMichael NILL [phone]-VlvgqTrihealth [facility]ccull[facility] [place] 03-13-2024 10:03-0400Systolic blood ctjydftq261 mm[Hg]King NILL [phone]-[facility]kjypDelaware [facility] Hospital 02-28-2024 13:15-0400Body ecepbj991.34 cmFNP-BC Yandel Shammo Work Phone: [facility]07-30-2024 13:15-0400 Body mass index (BMI) [Ratio]42.4 kg/k4KXP-TI Yandel Shammo Work Phone: [facility]07-30-2024 13:15-0400 Body nlbrol705.89 kgFNP-BC Yandel Shammo Work Phone: [facility]07-30-2024 13:15-0400 Diastolic blood akpmwoug95 mm[Hg]FASHION DESIGNER-BC Yandel Shammo Work Phone: [facility]07-30-2024 13:15-0400 Heart rate76 /minFNP- Yandel Shammo Work Phone: [facility]07-30-2024 13:15-0400 SaO2% (BldA) [Mass fraction]100 %[facility]- Yandel Shammo Work Phone: [facility]07-30-2024 13:15-0400 Systolic blood mm[Hg]FASHION DESIGNER- Yandel Shammo Work Phone: [phone]-[facility]02-22-2024 09:42-0500 Body mass index (BMI) [Ratio]44.85 kg/x0HptiayHéctor Aguilar MD Work Phone: [phone]02-22-2024 09:42-0500Body podyqk654.79 kgHéctor Aguilar MD Work Phone: 1(521)[address] [place], [place] 5503802-22-2024 09:42-0500Diastolic blood ihggxnuw18 mm[Hg]Héctor Aguilar MD Work Phone: [phone]02-22-2024 09:42-0500Heart rate 82 /minHéctor Aguilar MD Work Phone: [phone]02-22-2024 09:42-0500Systolic blood qjsclpoc620 mm[Hg]Héctor Aguilar MD Work Phone: [phone]02-15-2024 11:30-0500Body mass index (BMI) [Ratio]43.52 kg/m2Kassandra ALBERTO Work Phone: [facility] HospitalSyvudvsrnl29-03-7557 11:30-0500Body vnsasy579.52 kgKassandra ALBERTO Work Phone: [facility] HospitalPnozjyxnze32-34-2057 11:30-0500Diastolic blood jiyawnlx12 mm[Hg]Kassandra ALBERTO Work Phone: [facility] HospitalIvruizytao69-69-4934 11:30-0500Systolic blood kihkqmjr294 mm[Hg]Kassandra Haverhill PA Work Phone: [facility] HospitalWkacshgefq95-62-8006 15:30-0400Body snneps504.05 kgLacher Gallego Other [facility] Other 10-19-2023 15:30-0400Diastolic blood kgwlaojv65 mm[Hg] Denys Gallego Other [facility] Other 10-19-2023 15:30-0400Systolic blood meaqysbp495 mm[Hg] [facility]ys [facility]leg[facility] Other 08-15-2023 10:48-0400Diastolic blood fzvzeesh61 mm[Hg] FASHION DESIGNER-BC Yandel Shammo Work Phone: 1([phone]-[facility]08-15-2023 10:48-0400 Heart rate63 /minFNP-BC Yandel Shammo Work Phone: [phone] [place], [place] 5494808-15-2023 10:48-0400 Respiratory rate16 /minFNP-BC Yandel Shammo Work Phone: [facility]08-15-2023 10:48-0400 SaO2% (BldA) [Mass fraction]99 %FASHION DESIGNER-BC Yandel Shammo Work Phone: [facility]08-15-2023 10:48-0400 Systolic blood mm[Hg]FASHION DESIGNER-BC Yandel Shammo Work Phone: [phone])946-[facility]08-15-2023 08:43-0400 Body giiqkj062.34 cmFNP-BC Yandel Shammo Work Phone: 2(783)390-[address] [place], [place] 5494808-15-2023 08:43-0400 Body dkeibfpqblu71.2 [degF]FASHION DESIGNER-BC Yandel Shammo Work Phone: 9(012)850-[facility]08-15-2023 08:43-0400 Body .27 kgFNP-BC Yandelrico More Work Phone: [facility]06-19-2023 10:00-0400 Body qfeshr887.01 kgLacher Gallego Other [facility] Other 06-19-2023 10:00-0400Diastolic blood xxutnvdw50 mm[Hg] Denys Selfack Other [facility] Other 06-19-2023 10:00-0400Systolic blood wmacsuos453 mm[Hg] Denys Gallego [facility] Other Encounters Encounter DateEncounter TypeCare ProviderFacilityStart: 06-11-2025 End: 86-85-1087dvpdcyqiomZkwgpu TannaFacility:FTMCStart: 06-11-2025 End: 80-40-4955Rgcqzea encounter procedureBárbara Nguyen [facility] start: 02-26-2025 End: 37-83-9315pfvvauoywtRnxinnve Rohrbacher APRN Work Phone: [facility] Work Phone: Start: 02-26-2025 End: 09-34-5800Qwrfkvj encounter procedureElisabeth Beckman APRN [facility] Work Phone: Start: 02-25-2025 End: 47-32-7915Iddwer Archie Osullivan DPM Work Phone: no [facility] Santos PodiatryStart: 02-25-2025 End: 90-68-7303Raskes Archie Osullivan DPM Work Phone: no [facility] Santos PodiatryStart: 02-25-2025 End: 95-28-9122engbmugcnwINLTVOFW A BROWNNot AvailableStart: 02-25-2025 End: 79-34-2707Qigiwe outpatient visit 15 minutesRan Osullivan DPM Work Phone: [facility] Perez Tom PodiatryComment on above:Sinus tarsitis of right foot (Primary Dx); Other specified disorders of synovium, right ankle and footStart: 02-19-2025 End: 32-67-5584Uzgln [address] Work Phone: General SurgeryStart: 01-25-2025 End: 28-90-4900Rltuda OnlyKhoa Silveira HEALTH CARE SANITARY TECHNICIAN.AUTOMATIC STEEL TIE ADJUSTER Work Phone: General SurgeryComment on above:S/P hernia repair (Primary Dx); Postoperative visitPatient UpdateStart: 01-24-2025 End: 35-26-5590Hfpsqd OnlyKhoa Silveira HEALTH CARE SANITARY TECHNICIAN.AUTOMATIC STEEL TIE ADJUSTER Work Phone: General SurgeryComment on above:Acute postoperative painStart: 01-07-2025 End: 53-58-7289Riwhxn OnlyKhoa Silveira HEALTH CARE SANITARY TECHNICIAN.AUTOMATIC STEEL TIE ADJUSTER Work Phone: General SurgeryComment on above:Acute postoperative pain (Primary Dx)Start: 12-28-2024 End: 46-43-2285Wbjcqoo encounter procedureKhoa Silveira HEALTH CARE SANITARY TECHNICIAN.AUTOMATIC STEEL TIE ADJUSTER Work Phone: General SurgeryComment on above:Encounter for postoperative wound check (Primary Dx)Start: 12-28-2024 End: 82-15-5873kqoanynxldIYIBKPZQ A ROHRBACHERFacility:[facility] Start: 12-21-2024 End: 36-09-1251mqcekrhxvyBYQTXJUO A ROHRBACHERFacility:[facility] Start: 12-21-2024 End: 65-24-2376djhacxmsmtOJVPYBBT A ROHRBACHERFacility:[facility] Start: 12-20-2024 End: 02-89-1523rzucjmxqnvYmypczkakParkwood Hospital Work Phone: Start: 12-20-2024 End: 24-23-0472Qrafhho encounter procedureFirelands Physician Group-[facility] Work Phone: Start: 12-19-2024 End: 90-57-0738ncqpfuvyaaPLHPQEMH A ROHRBACHERFacility:[facility] Start: 12-14-2024 End: 39-35-8678Zupufpi encounter procedureKhoa Silveira HEALTH CARE SANITARY TECHNICIAN.AUTOMATIC STEEL TIE ADJUSTER Work Phone: General SurgeryComment on above:Encounter for postoperative wound check (Primary Dx)Start: 12-14-2024 End: 08-28-9079ltrxrafoksOCENVEQI A ROHRBACHERFacility:[facility] Start: 12-10-2024 End: 04-90-0581Hefebh OnlyKhoa Silveira HEALTH CARE SANITARY TECHNICIAN.AUTOMATIC STEEL TIE ADJUSTER Work Phone: General SurgeryComment on above:Acute postoperative pain (Primary Dx)Start: 12-06-2024 End: 86-36-3114Fjixizwab encounterJeannine Rody RNGeneral SurgeryComment on above:Post Op CallStart: 12-05-2024 End: 84-48-8009Nhnxglhud encounterJeannine Rody RNGeneral SurgeryComment on above:Post Op CallStart: 12-05-2024 End: 75-15-8037Pbmuhlb encounter procedureKhoa Silveira HEALTH CARE SANITARY TECHNICIAN.AUTOMATIC [employer] ADJUSTER Work Phone: General SurgeryComment on above:Postoperative visit (Primary Dx)Start: 12-05-2024 End: 00-11-5739shoizkxzbyZYMYYOBTMillie TOLENTINORFacility:[facility] Start: 12-03-2024 End: 11-76-9540Iumbdc OnlyKhoa Silveira HEALTH CARE SANITARY TECHNICIAN.AUTOMATIC [employer] ADJUSTER Work Phone: General SurgeryComment on above:Acute postoperative painStart: 11-30-2024 End: 74-52-1448Amuevheey to same day surgery Sarwat Grissom MD Work Phone: General SurgeryComment on above:Bariatric surgery status (Primary Dx); S/P repair of ventral herniaStart: 11-30-2024 End: 68-96-2991Ayvtluzeldkw consultation with patientAyse Grissom MD Work Phone: General SurgeryStart: 11-30-2024 End: 33-47-1980htirnhkyqrDBRHXSLWMelissa BIRMINGHAMacility:[facility] Start: 11-23-2024 End: 35-89-7057Lgykqjrwph and management of inpatientROCIO JEFF [facility]2024 End: 15-67-6983Sfrfztdre encounterKristi Watts RNGeneral SurgeryComment on above:Approval callStart: 11-06-2024 End: 46-37-6923Hdlsnlb encounter Holley Umaña PhD Work Phone: [facility] SurgeryComment on above:Preoperative examination; Hiatal hernia; Morbid obesity (HCC)Start: 11-06-2024 End: 18-27-5022Eofmbgneh to establishmentLocated Within [facility] [address] Work Phone: Pre AnesthesiaStart: 11-06-2024 End: 33-33-2165Gicwynbjdq consultationInspira Medical Center Woodbury 6 Work Phone: Pre AnesthesiaComment on above:Preoperative examination (Primary Dx); Hiatal hernia; Morbid obesity (HCC); Primary hypertension; Gastroesophageal reflux disease without esophagitis; Acquired hypothyroidism; Inappropriate sinus tachycardia (HCC); Other iron deficiency anemia; Insulin resistance; Psoriatic arthritis (HCC); Class 3 severe obesity without serious comorbidity with body mass index (BMI) of 40.0 to 44.9 in adult, unspecified obesity type (HCC)Start: 11-06-2024 End: 12-22-2655Ifloylmikcurd examination [place] [address] Work Phone: [facility] Work Phone: Start: 86-96-3430Obl-patient / Non-visitFirriverside health system Physician GroupDayton General Hospital Professional Co Work Phone: Start: 11-06-2024 End: 90-81-8252kafgyxnygoPTZRTEJWMillie BIRMINGHAMacility:[facility] Start: 60-09-7171Uhtwjrdqi for other preprocedural examinationCleveland Clinic ClevelandStart: 2024 End: 18-72-9040Cwwmtm flowsheetNicangas A Brown DPM Work Phone: noms CI PODIATRYStart: 2024 End: 83-09-8264Dlzhrk flowsheetNicholas A Brown DPM Work Phone: noms CI PODIATRYStart: 2024 End: 79-72-2926Szmzwa outpatient visit 15 minutesNicjannette A Brown DPM Work Phone: noms CI PODIATRYComment on above:Other specified disorders of synovium, right ankle and foot (Primary Dx); Sinus tarsitis of right foot; Contracture of left ankleStart: 2024 End: 07-94-6026yqzdylndyqBHDAZQHJ A BROWNNot AvailableStart: 10-18-2024 End: 11-38-6033Xyhbsq flowsheetNicholas A Brown DPM Work Phone: noms CI PODIATRYStart: 10-18-2024 End: 71-22-9969Wgidys flowsheetNicholas A Brown DPM Work Phone: noms CI PODIATRYStart: 10-18-2024 End: 74-69-5823hevgurkzsyMLYBMVXB Renu OSULLIVANNot AvailableStart: 09-28-2024 End: 28-60-1809Qmpkpugnh to same day surgery centerRocio Jeff MD Work Phone: Digestive Disease InstComment on above:11.23.24 Cure (Open Complex AWR 4 hours los [address] Grissom Hiatal hernia/Lap Gastric Sleeve 3 hours)Start: 09-28-2024 End: 39-99-4280rysxwyfqcmDqgzy Prabhu MD Work Phone: Digestive Disease InstStart: 09-28-2024 End: 44-02-9982Dwoltryrsytuz examination doneRocio Jeff MD Work Phone: [facility] Systemtart: 09-21-2024 End: 77-74-4616Dupswkkxc to same day surgery clydeKristi Watts RNGeneral SurgeryComment on above:11/04/2024 (pseudo)Start: 09-21-2024 End: 33-51-8048rngojcsluhTkqqqoaf Verde RNGeneral SurgeryStart: 09-21-2024 End: 67-24-4607Dkyyvlzyukjqd examination doneClaritzarebeca Chavezde [facility] Start: 09-20-2024 End: 53-76-0828Qiiglb Archie Osullivan DPM Work Phone: noms PODIATRYStart: 09-20-2024 End: 21-40-0625Fsfasg Archie Osullivan DPM Work Phone: noms PODIATRYStart: 09-20-2024 End: 36-76-0421zxektzudqvDGIVVSCQ A BROWNNot AvailableStart: 09-20-2024 End: 89-32-9790Jtezdn outpatient visit 15 minutesNicjannette Osullivan DPM Work Phone: noms PODIATRYComment on above:Sinus tarsitis of right foot (Primary Dx); Other specified disorders of synovium, right ankle and footStart: 09-14-2024 End: 06-40-0058iprsftblaiPevgxzynwChildren's Hospital for Rehabilitation Work Phone: Start: 09-14-2024 End: 49-03-6654Eijtsep encounter procedureCaromont Regional Medical [facility] Phys[facility] GroupKettering Health Work Phone: Start: 09-12-2024 End: 80-07-0396Sweulfcel encounterKristi Watts RNGeneral SurgeryComment on above:ResultsStart: 09-03-2024 End: 43-21-7306Xmanqomindi Osullivan DPM Work Phone: [facility] [place] PODStart: 09-03-2024 End: 54-57-0889Oyegyh Archie Osullivan DPM Work Phone: noms [place] PODStart: 09-03-2024 End: 61-76-5295zhbgnytdecXNTSBAYH A BROWNNot AvailableStart: 09-03-2024 End: 92-12-2587Hhhuwe outpatient new 30 minutesHelenarico Sears Tariq DPM Work Phone: NOQB [place] PODComment on above:Other specified disorders of synovium, right ankle and foot (Primary Dx); Sinus tarsitis of right footStart: 09-01-2024 End: 95-43-7020tpzvexuydzTOWIMI STEVENSFacility:[facility] Centertart: 08-22-2024 End: 62-95-9242Cfaqsmxcy encounterSadina Helm PhD Work Phone: General Surgery BMI PSYComment on above:Patient Update Start: 08-17-2024 End: 12-79-3942ithiatenljDBMK D HILLSNot AvailableStart: 08-17-2024 End: 93-13-8054Csigsmr encounter procedureAfrica ALBERTO Work Phone: noms NB ORTHOComment on above:Ankle joint instability, right (Primary Dx); Sinus tarsi syndrome of right ankle; Posterior tibial tendinitis of right lower extremityStart: 08-17-2024 End: 10-81-9045tenehlcbhxDVKK D HILLSNot AvailableStart: 08-15-2024 End: 56-69-7643Klrgfibyo to same day surgery centerAyse Grissom MD Work Phone: General SurgeryComment on above:Sleep Study Completed Start: 08-15-2024 End: 27-53-2435zijyjzdactOoqjtz Feng MD Work Phone: [facility] Work Phone: Start: 08-15-2024 End: 51-70-6021Gunfbqx encounter procedureCaromont [facility] Phys[facility] GroupK[facility] Work Phone: Start: 07-27-2024 End: 45-24-5958iqtoyokvitTWXBJWF A GORTYFacility:[facility] Centertart: 07-10-2024 End: 08-36-7873Xzsqvh flowsheetTodd D Liberty PA Work Phone: N[facility] SWS ORTHOAOStart: 07-10-2024 End: 79-95-4121Ioexkm flowsheetAfrica Singh Isabel PA Work Phone: [facility] SWS ORTHOAOStart: 07-10-2024 End: 56-77-8645axvruambeoMNBZ D ISABELNot AvailableStart: 07-10-2024 End: 00-95-7656Iqgoyvd encounter procedureTojacob Singh Isabel PA Work Phone: [facility] SWS ORTHOAOComment on above: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); Moderate right ankle sprain, sequelaStart: 07-02-2024 End: 93-71-4144nnhekiafjyFIKKNHG A GORTYFacility:[facility] Centertart: 06-29-2024 End: 05-68-0267BfxfjBristol County [facility] Main Work Phone: NeurologyStart: 06-22-2024 End: 31-61-2503perykiweaoSKVG D HILLSNot AvailableStart: 06-21-2024 End: 93-11-7224vygdpyloxyTZFQBQ FENGFacility:[facility] Centertart: 06-20-2024 End: 22-59-5243Iulhqp flowsheetAfrica Singh Liberty PA Work Phone: [facility] ORTHOStart: 06-20-2024 End: 25-30-2044Xsklyl flowsheetAfrica Singh Isabel REMY Work Phone: [facility] ORTHOStart: 06-20-2024 End: 55-98-1814Ttxsfms encounter procedureTojacob Singh Isabel PA Work Phone: [facility] NB ORTHOComment on above:Pain and swelling of right lower leg (Primary Dx); Ankle joint instability, right; Pain of right calfStart: 06-20-2024 End: 58-76-4388ypibjrwpkjZZNP D HILLSNot AvailableStart: 06-19-2024 End: 05-25-2160qjmsnuuoxjTskex T Shammo [facility]- Work Phone: [facility] Work Phone: Start: 06-19-2024 End: 51-70-5266Nwbwthp encounter procedureLucas Shammo FASHION DESIGNER-BC Work Phone: [facility] Work Phone: Start: 06-15-2024 End: 01-44-9482Xhbmjvf encounter statusXr LorMiddletown Hospitaltart: 06-15-2024 End: 22-69-8386Vwrybzmyaq hospital visit by physicianXr [facility]ainRadiology Comment on above:Morbid obesity due to excess calories (HCC) [E66.01]Start: 06-15-2024 End: 86-91-4143cpeiynlwqcODZZYW PRAVEENAFacility:[facility] Centertart: 90-91-6256Oez-patient / Non-visitLucas Shammo FASHION DESIGNER-BC Work Phone: [facility] Work Phone: Start: 06-14-2024 End: 46-62-6447qbtkwuyfqqCBNAYO Latoshacility:[facility] Centertart: 06-08-2024 End: 45-42-6906cvxpjtvdfcSlkhgith:[facility] Centertart: 06-07-2024 End: 68-24-8469Lhrahmtds to same day surgery centerLeah Zuniga RD Work Phone: General SurgeryComment on above:H/O gastric sleeve (Primary Dx); Obesity, Class III, BMI 40-49.9 (morbid obesity) (HCC); Dietary counseling and surveillanceStart: 06-07-2024 End: 89-38-9545ajdgxsgfahXWAQFU PRAVEENAFacility:[facility] Centertart: 06-07-2024 End: 91-35-0997Drgehqtwzjdn consultation with patientLeah Zuniga RD Work Phone: General SurgeryStart: 06-01-2024 End: 21-82-3314ScmxiaDarryl Grissom MD Work Phone: General SurgeryComment on above:Preoperative examination (Primary Dx)Start: 06-01-2024 End: 83-82-6334Dpmszafvldbml examination Joseph Grissom MD Work Phone: [facility] Work Phone: Start: 05-24-2024 End: 09-77-8255Roeyuenyf to same day surgery Sudha Ruano MD Work Phone: bmi [facility] REJComment on above:Morbid obesity due to excess calories (HCC) (Primary Dx); S/P bariatric surgery; Preoperative testing; Snoring; Other fatigue; Morbid obesity with BMI of 40.0-44.9, adult (HCC)Start: 05-24-2024 End: 93-70-5625kniryyjweqELANDP FENGFacility:[facility] Centertart: 88-49-8024Cunpcvebh for other preprocedural examinationRENETTA RUANOSelect Medical Specialty Hospital - ColumbusStart: 05-24-2024 End: 90-86-1140Cpevegt encounter statusRenetta Ruano MD Work Phone: [facility] Systemtart: 05-24-2024 End: 26-37-8377Iclydhlgqktq consultation with patientRenetta Ruano MD Work Phone: bmi [facility] REJStart: 05-24-2024 End: 95-24-7378trelkqkdvbFHQ-BC Yandel T Shammo Work Phone: [facility] Work Phone: Start: 05-24-2024 End: 94-70-7580Rxyiixx encounter procedureFNP-BC Yandel Shammo Work Phone: [facility] Work Phone: Start: 05-17-2024 End: 51-65-2615Xuqahzzze encounterKristi Watts RNGeneral SurgeryComment on above:Patient Update; pt updateStart: 05-14-2024 End: 81-32-9266Dhqezxreg to same day surgery Sarwat Grissom MD Work Phone: General SurgeryComment on above:Body mass index 40.0- 44.9, adult (HCC) (Primary Dx)Start: 05-14-2024 End: 55-66-6484azblgbmqkhCRVXAD FENGFacility:[facility] Centertart: 05-14-2024 End: 36-86-6164Efjbzibvugyj consultation with patientAyse Grissom MD Work Phone: General SurgeryStart: 05-10-2024 End: 89-26-2113vtifzjeadhFedhav Augustine KoromiaFacility:[facility] Hospitaltart: 05-10-2024 End: 43-04-5358Cllgwdb encounter procedureFNP-BC Yandel More Work Phone: [facility] Cardiology Work Phone: Start: 04-24-2024 End: 28-03-6185mzykjqwlgjEMALO PRABHUFacility:[facility] Centertart: 04-24-2024 End: 22-27-7467Pjqydlv encounter procedureAyse Grissom MD Work Phone: General SurgeryComment on above:Gastroesophageal reflux disease, unspecified whether esophagitis presentStart: 04-18-2024 End: 05-17-7016Rhodsarde encounterKristi Watts RNGenemiddletown hospital SurgeryComment on above:Patient UpdateStart: 04-16-2024 End: 43-16-9321lcgwptlalqEBDSXudyisiu:[facility] Centertart: 04-16-2024 End: 82-90-4686Dicwsns encounter procedureRocio Jeff MD Work Phone: General SurgeryComment on above:Gastroesophageal reflux disease, unspecified whether esophagitis present (Primary Dx); Incisional hernia, without obstruction or gangreneStart: 04-11-2024 End: 58-03-7422Tivlalavf encounterJavier Kitchen LPN Work Phone: General SurgeryStart: 03-30-2024 End: 40-77-2793Iveaozhys Result EncounterCorey Myriam YOUNG Work Phone: [facility] External Department UnsolicitedStart: 03-30-2024 End: 72-39-2143Vtegvvqvr Result EncounterCorey Myriam DO Work Phone: noms External Department UnsolicitedStart: 03-20-2024 End: 17-98-3408Yuustxfea to same day surgery viennaShruti Dwain HEALTH CARE SANITARY TECHNICIAN.AUTOMATIC STEEL TIE ADJUSTER Work Phone: General SurgeryStart: 03-20-2024 End: 08-78-7465ssmvqltquiRiieo Dwain HEALTH CARE SANITARY TECHNICIAN.AUTOMATIC STEEL TIE ADJUSTER Work Phone: General SurgeryStart: 03-13-2024 End: 95-24-1486kntluuvburKWZXL FAZIONot AvailableStart: 03-13-2024 End: 81-43-4831Atdbqwv encounter procedureMichael R NILL [phone]-WoeclOhiohealth [facility] General Surgery Ovando Start: 02-28-2024 End: 77-74-9960ybysljepffMIG-BC Yandel T Shammo Work Phone: [facility] Work Phone: Start: 02-28-2024 End: 73-77-5525Dpqpfmu encounter procedureFNP-BC Yandel Shammo Work Phone: [facility] Work Phone: Start: 01-05-2024 End: 92-56-8821yponxeefttBVA RAMEYNot AvailableStart: 12-19-2023 End: 28-63-4211wuepidtkhtUAC RAMEYNot AvailableStart: 12-12-2023 End: 28-53-1298wcemezmhluLHU-BC Yandel T Shammo Work Phone: [facility] Work Phone: Start: 12-12-2023 End: 02-30-4276Iakvsktt ReferredFNP-BC Yandel Shammo Work Phone: [facility]-LAB Path Spec Tariq HospStart: 12-09-2023 End: 85-37-7933Bwooaioeg Result EncounterCorey Myriam DO Work Phone: [facility] External Department UnsolicitedStart: 12-09-2023 End: 88-25-4817Bgvvzplna Result EncounterCorey Myriam DO Work Phone: [facility] External Department UnsolicitedStart: 12-08-2023 End: 10-67-4481estymecmemWWCGD FAZIONot AvailableStart: 12-02-2023 End: 18-92-3248Uennkvudc Result EncounterCorey Myriam DO Work Phone: [facility] External Department UnsolicitedStart: 12-02-2023 End: 02-60-8574Nlrtnkynj Result EncounterCorey Myriam DO Work Phone: noms External Department UnsolicitedStart: 11-30-2023 End: 29-51-0468jlqveptrvqLUH RAMEYNot AvailableStart: 11-25-2023 End: 91-31-8039Mizanvpzn Result EncounterCorey Myriam DO Work Phone: [facility] External Department UnsolicitedStart: 11-25-2023 End: 50-80-1466Khrdmvlta Result EncounterCorey Myriam DO Work Phone: NOPO External Department UnsolicitedStart: 11-18-2023 End: 49-14-4806Hpydabmnm Result EncounterCorey Myriam DO Work Phone: [facility] External Department UnsolicitedStart: 11-18-2023 End: 98-75-2584Mfjrqodjj Result EncounterCorey Myriam DO Work Phone: [facility] External Department UnsolicitedStart: 11-15-2023 End: 40-77-2126Kbvviigwr Result EncounterKassandra ALBERTO Work Phone: [facility] External Department UnsolicitedStart: 11-15-2023 End: 41-94-4874Seaccbioo Result EncounterKassandra ALBERTO Work Phone: noms External Department UnsolicitedStart: 11-15-2023 End: 22-34-0262qauiyyaqfiBOUUJ FAZIONot AvailableStart: 11-02-2023 End: 55-41-6454stcfmaucjbMKZJBG KHURSHIAvita Health Systemtart: 11-02-2023 End: 67-48-7135Zoemaw outpatient visit 15 minutesEddie Chavez MD Work Phone: [phone]-Lodoq Medicine at [facility] Comment on above:Essential hypertension affecting in second trimester (Primary Dx)Start: 10-31-2023 End: 09-13-7279xytbkzgkwxIRE RAMEYNot AvailableStart: 10-18-2023 End: 38-04-3243tetqxautqgZVBPC [facility] Hospitaltart: 29-61-0238Yubftmtdpuhfh Hoang Chavez MD Work Phone: [phone]-Fgpei Medicine at [facility] Start: 10-13-2023 End: 35-20-9498zfhtegftvsTWSBH FAZIONot AvailableStart: 09-22-2023 End: 01-21-9594vqsvdywjtmWALMZEastern Missouri State HospitalComment on above: Pre-existing essential hypertension during in second trimester (Primary Dx); Advanced maternal age in multigravida, second trimester; Hypothyroid in , antepartumStart: 09-22-2023 End: 16-38-5788Deolvs consultation new/estab patient 61 Noe Aguilar MD Work Phone: [phone]-Yebbu Medicine at [facility] Comment on above:Essential hypertension affecting in second trimester (Primary Dx)Start: 09-15-2023 End: 24-30-3977Temtxcbj flow Reed ALBERTO Work Phone: [facility] OBComment on above:Second trimester ; Diabetes mellitus screening; 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); Hypothyroidism, unspecified type (CMS/HCC)Start: 09-15-2023 End: 61-59-2976lohrylvrfdJSY RAMEYNot AvailableStart: 89-86-2799Hnmwy Alla Bee MD Work Phone: [phone]-Xptfy Medicine at [facility] Start: 03-52-2965Arxxqbfzi encounterJodi ConkleMaternal Medicine Fair HavenStart: 08-18-2023 End: 46-24-5424Yktrkjsaq Result EncounterCorey Myriam DO Work Phone: noms External Department UnsolicitedStart: 08-18-2023 End: 89-50-0251Mmyceevaf Result EncounterCorey Myriam DO Work Phone: noms External Department UnsolicitedStart: 08-18-2023 End: 88-92-0202ozvwhftcrlYEFXZ FAZIONot AvailableStart: 07-21-2023 End: 10-16-3755dblgilvebsHLG RAMEYNot AvailableStart: 06-13-2023 End: 61-70-6955yfkbtkslmgWUNCC FAZIONot AvailableStart: 05-19-2023 End: 65-27-1583buydnvptijWlnuqrxn Cordell Other [facility] Other Start: 10-54-1638Subjmb outpatient visit 15 minutes Denys GreenbergG GastroenterologyStart: 05-13-2023 End: 67-21-0375Qzybnxcbd Result EncounterCorey Myriam DO Work Phone: noms External Department UnsolicitedStart: 05-13-2023 End: 52-81-6552Heuyulfkt Result EncounterCorey Myriam DO Work Phone: noms External Department UnsolicitedStart: 03-15-2023 End: 71-82-8948Adncpxkgj to same day surgery [facility] Yandel More Work Phone: [facility] Work Phone: Start: 03-15-2023 End: 04-05-1419zhtimpxlopDRA-BC Yandel Aguilar Shammo Work Phone: [facility] Work Phone: Start: 01-26-2023 End: 85-77-1196Xxz Drop offCon Chiu [facility] Start: 01-26-2023 End: 36-03-0903Folthdg encounter procedureCon Chiu [facility] start: 01-17-2023 End: 27-86-4287moyupuepnyJzukkbbw McCormack Other [facility] Other Start: 26-28-6571Aaznzy outpatient new 45 minutes Denys López GastroenterologyStart: 12-28-2022 End: 04-94-9308hidylilddfJZTAYUK KWAN .Facility:N2Imkbq: 10-16-2022 End: 69-60-7031qxpsrvibcgPAFNE SHAMMOFacility:G9Drpmw: 27-36-2818Xkwhdfkgj for general adult medical examination without abnormal findingsLUCAS SHAMMOThe [facility] Centertart: 08-20-2022 End: 51-48-8388lgwirrnkojHJBJE SHAMMOFacility:V1Qgeqc: 08-20-2022 End: 99-73-8533Xfcgqwrpe for general adult medical examination without abnormal findingsLUCAS SHAMMOFacility:H1 Procedures DateProcedureProcedure DetailPerforming ClinicianStart: 68-61-5526Cihkzbze screenComment on above:Order Comment: Specimen Type: BLOOD SPECIMENOrdering Facility: [facility] Address:[address] [place], [place] [address]Performed By: #### [id number] ####CC MAIN BLOOD BANKCLIA [id number] [place] [address] [place] AMERICAStart: 04-59-0792Lehkc ankle complete minimum 3 viewsTojacob ALBERTO Work Phone: Start: 76-17-0958Flnqn depression screening assessment Sleep Main Work Phone: Start: 63-79-6775Oapdviufun exam chest 2 viewsRenetta Ruano MD Work Phone: Start: 36-02-8965EY ABDOMEN PELVIS W CONCorey Myriam DO Work Phone: Start: 30-36-5689OC OB BPP W NON-STRESSCorey Myriam DO Work Phone: Start: 17-54-7860AN OB BPP W NON-STRESSCorey Myriam DO Work Phone: Start: 37-74-4392FD OB BPP W NON-STRESSCorey Myriam DO Work Phone: Start: 59-60-4213EF OB BPP W NON-STRESSCorey Myriam DO Work Phone: Start: 00-66-5328OD OB GROWTHAmy Dominic ALBERTO Work Phone: Start: 02-71-6394Dvpmt dip stick/tablet rgnt non-auto w/o micrscpAmy Dominic ALBERTO Work Phone: Start: 02-46-5446DK OB ANATOMYCorey Myriam DO Work Phone: Start: 60-58-7779WL OB CERVICAL LENGTHCorey Myriam DO Work Phone: Start: 72-06-7724VQLGH FREE CELL DNA (NON-[place]) Not In System Ref ProvStart: 41-41-4641OY OB TRANSVAGINALCorey Myriam DO Work Phone: Start: 21-58-9143DidyojflkwxtyjtdwjipumwdsuVQK-BC Yandel Shammo Work Phone: Start: 27-71-9865IfuwynmzfvpoXijij Lue Start: 80-49-7315Gkptvmm sleeveKathy Lue Start: 11-03-9867NeqrnqaakbnrvgfTgizj Lue Arthroplasty of kneeKathy Lue Comment on above:Meniscus repairCesarean sectionKathy Lue Comment on above:n9Udghjuuv sectionMichael NILL Repair of meniscusMichael NILL Plan of Treatment DateCare ActivityDetailAuthorStart: 56-68-2187CJ Controlled (<130/80)BP Controlled (<130/80)[facility]tart: 30-45-0393Mkdubdt ScreeningAnxiety ScreeningBlanchard Valley Health Systemtart: 29-26-1509Sroubarkpc ScreeningDepression ScreeningBlanchard Valley Health Systemtart: 88-45-6952Xshjdqgkf vaccinationLake County [facility] Start: 69-79-6121Hjhhewu referralWayne Hospital Work Phone: Start: 02-19-2025 End: 37-47-5768Gevdxpein to same day surgery kfvqxz8702/19/2025 1:30 PM EDT Education General Surgery [id number] Anthony Mckeon, VALENTINO [address] [place] [address] post op three months/ gastric bypass 11/23/2024General SurgeryComment on above: post op three months/ gastric bypass 11/23/2024Start: 02-18-2025 End: 77-15-4167Ainpczs encounter tgslypprm16/21/2025 11:30 AM EDT Distance Health BMI [facility] [place] [address] [place] [address] Renetta Ruano MD [address] [place] [address] post op three months/ gastric bypass 11/23/2024MI [facility] REJ Comment on above:post op three months/ gastric bypass 11/23/2024Start: 02-11-2025 End: 67-34-1405Secomdx encounter usifqsiwt06/14/2025 11:30 AM EDT Distance Health BMI [facility] [address] [facility] [place] [address] Renetta Ruano MD [address] [place] [address] post op three months/ gastric bypass 11/23/2024MI [facility] REJ Comment on above:post op three months/ gastric bypass 11/23/2024Start: 12-21-2024 End: 52-77-8851Yxqsxwgkj to same day surgery centerGeneral SurgeryComment on above:post op one month/ gastric bypass 11/23/2024Start: 12-14-2024 End: 03-18-2701Hqjqwpw encounter /16/2025 11:00 AM EDT Office Visit General Surgery [address] [address] Khoa Silveira, HEALTH CARE SANITARY TECHNICIAN.AUTOMATIC STEEL TIE ADJUSTER [address] [place] [address] Post Op Wound CheckGeneral SurgeryComment on above:Post Op Wound CheckStart: 12-05-2024 End: 46-56-6391Dlqaarw encounter qoyrisiqm27/07/2025 11:00 AM EDT Office Visit General Surgery [address] [address] Khoa Silveira, HEALTH CARE SANITARY TECHNICIAN.AUTOMATIC STEEL TIE ADJUSTER [address] [address] right merced drain removalGeneral SurgeryComment on above:right merced drain removalStart: 12-05-2024 End: 01-54-1796dxtigvyqsm63/07/2025 8:30 AM EDT Education BMI Mallory [address] [place] [address] [place] [address] post op refresherBMI MentorComment on above:post op refresherStart: 11-30-2024 End: 73-95-2274Rmygffryd to same day surgery zjghkq2411/30/2024 1:20 PM EDT [facility] Surgery [address] [place] [address] Ayse Grissom MD [address] [place] [address] post op 7-10 day/ hernia 11/23/2024General SurgeryComment on above:post op 7-10 day/ hernia 11/23/2024Start: 11-23-2024 End: 31-22-7568Ftcpthrpz to same day surgery centerAdmittingComment on above: HERNIORRHAPHY INCISIONAL ABDOMINAL RECURRENT REDUCIBLE GREATER THAN 10cmStart: 11-23-2024 End: 97-44-8296FKZRRXTPDHAKB INCISIONAL ABDOMINAL RECURRENT REDUCIBLE GREATER THAN 10cmHERNIORRHAPHY INCISIONAL ABDOMINAL RECURRENT REDUCIBLE GREATER THAN 10cm Preoperative examination Hiatal hernia Morbid obesity (HCC) 11/23/2024 10:15 AM [facility] PAVILIONStart: 11-23-2024 End: 38-42-0522Saor gstr rstcv px w/byp maria antonia-en-y limb <150 cmLAPAROSCOPIC GASTRIC RESTRICTIVE SURG W/ BYPASS & MARIA ANTONIA-EN-Y 150CM OR LESS Preoperative examination Hiatal hernia Morbid obesity (HCC) 11/23/2024 10:15 AM [facility] P[facility]ILIONStart: 11-23-2024 End: 38-75-9675Mnye rpr paraesphgl hrna incl fundplsty w/meshLAPAROSCOPIC RPR PARAESOPHAGEAL HERNIA W/O FUNDOPLASTY W/ MESH Preoperative examination Hiatal hernia Morbid obesity (HCC) 11/23/2024 10:15 AM [facility] PAVILIONStart: 78-69-3751Iuorydypxx hospital visit by physicianAdmittingComment on above: Preoperative examination [Z01.818], Hiatal hernia [K44.9], Morbid obesity (HCC) [E66.01]Start: 34-12-4359Xnytymxmoj hospital visit by fiuxnglsp95/20/2025 Hospital Encounter Admitting [address] [place] [address] Ayse Grissom MD [address] [place] [address] Morbid obesity (HCC) [E66.01], Hiatal hernia [K44.9], Preoperative examination [Z01.818]AdmittingComment on above:Morbid obesity (HCC) [E66.01], Hiatal hernia [K44.9], Preoperative examination [Z01.818]Start: 2024 End: 42-26-2355Wltxqzny Bfdkipf5811/01/2024 1:10 PM EDT Clinical Support [facility] [address] [facility] [address] [place] [id number] Ran Osullivan, DPHoward [address] [facility] [place], [place] [address] [place] [address] Other specified disorders of synovium, right ankle and foot (Primary Dx); Sinus tarsitis of right foot; Contracture of left ankleNOMS CI PODIATRYComment on above:Other specified disorders of synovium, right ankle and foot (Primary Dx); Sinus tarsitis of right foot; Contracture of left ankleStart: 10-22-2024 End: 44-18-7031vIEW in Platelet poor plasma by Coagulation assayACTIVATED PARTIAL THROMBOPLASTIN TIME Lab Routine Preoperative examination Hiatal hernia Morbid obesity (HCC) Expected: 10/22/2024, [facility] Comment on above:Expected: 10/22/2024, Expires: 02/27/2025Start: 10-22-2024 End: 06-88-1167YIF W Auto Differential panel - BloodCOMPLETE BLOOD COUNT AND DIFFERENTIAL Lab Routine Preoperative examination Hiatal hernia Morbid obesity (HCC) Expected: 10/22/2024, Expires: [facility]/2025[facility] ClinicComment on above: Expected: 10/22/2024, Expires: 02/27/2025Start: 10-22-2024 End: 18-43-7184Osdmnqlxyitha metabolic 2000 panel - Serum or PlasmaCOMPREHENSIVE METABOLIC PANEL Lab Routine Preoperative examination Hiatal hernia Morbid obesity (HCC) Expected: 10/22/2024, Expires: 02/27/2025[facility] ClinicComment on above:Expected: 10/22/2024, Expires: 02/27/2025Start: 10-22-2024 End: 54-81-8753DU panel - Platelet poor plasma by Coagulation assayPROTHROMBIN TIME Lab Routine Preoperative examination Hiatal hernia Morbid obesity (HCC) Expected: 10/22/2024, Expires: 02/27/2025[facility] ClinicComment on above: Expected: 10/22/2024, Expires: 02/27/2025Start: 10-22-2024 End: 11-82-3953SVWI AND SCREEN,30 DAYTYPE AND SCREEN,30 DAY Blood Bank Routine Preoperative examination Hiatal hernia Morbid obesity (HCC) Expected: 10/22/2024, Expires: 02/27/2025[facility] ClinicComment on above:Expected: 10/22/2024, Expires: 02/27/2025Start: 42-75-7276Tfenaoyhfw hospital visit by uhclkrbzo11/09/2025 Hospital Encounter Admitting [address] [place] [address] Ayse Grissom MD [address] [place] [address] Morbid obesity (HCC) [E66.01], Hiatal hernia [K44.9], Preoperative examination [Z01.818]AdmittingComment on above:Morbid obesity (HCC) [E66.01], Hiatal hernia [K44.9], Preoperative examination [Z01.818]Start: 36-00-2115Lyazxvingk hospital visit by jnlojsexi54/06/2025 Hospital Encounter Admitting [address] [place] [address] Ayse Grissom MD [address] [place] [address] Morbid obesity (HCC) [E66.01], Hiatal hernia [K44.9], Preoperative examination [Z01.818]Admitting Comment on above:Morbid obesity (HCC) [E66.01], Hiatal hernia [K44.9], Preoperative examination [Z01.818]Start: 46-78-1714Pnqnb BMI ScreeningAdult BMI ScreeningProLake County Memorial [facility] West SystemStart: 77-14-0136Iqbntpp ScreeningTobacco ScreeningProLake County Memorial [facility] - West SystemStart: 09-22-2024 End: 30-53-4179SK MFM with or without consultUS MFM with or without consult Imaging Routine Pre-existing essential hypertension during pregnancyin second trimester Advanced maternal age in multigravida, second trimester Hypothyroid in , antepartum Expected: 09/22/2024 (Approximate), Expires: 09/22/2024 [facility] Work Phone: comment on above:Expected: 09/22/2024 (Approximate), Expires: 09/22/2024Start: 09-20-2024 End: 64-26-7039Oineyvv encounter mnsbithuq84/20/2025 9:40 AM EST Office Visit [facility] [address] [facility] [address] [place] [address] Ran Osullivan, FRANCISCO JAVIER [address] [facility] [place], [place] [address] [place] [address] [facility] CI PODIATRYStart: 08-21-2024 End: 60-13-5887AATYQAPJ & METAB, URNICOTINE & METAB, UR Lab Routine Nicotine dependence in remission, unspecified nicotine producttype Expected: 08/21/2024, Expires: 11/20/2024[facility] Work Phone: Comment on above:Expected: 08/21/2024, Expires: 11/20/2024Start: 06-21-2024 End: 76-08-3898Sevvxnydwlle / ancillary services vjdaidxfzx50/21/2024 3:00 PM EST Ancillary Procedure [facility] [address] [place] [address] [facility] FNR ULTRASOUNDStart: 06-20-2024 End: 14-78-6109LS.doppler Lower extremity vein - rightVascular US lower extremity venous duplex right Imaging Routine Pain and swelling of right lower leg Expected: 06/20/2024, Expires: 06/20/2025[facility] Work Phone: Comment on above:Expected: 06/20/2024, Expires: 06/20/2025Start: 06-20-2024 End: 65-72-6692Pelxuze encounter yxyngfrwg25/20/2024 9:45 AM EST Office Visit [facility] [address] [place] [address] Africa Hall PA [address] [place] [address] ArrivedNOMS OWENS ORTHOComment on above:ArrivedStart: 06-08-2024 End: 50-63-0704Hshgdyn encounter rzyagerxh12/08/2024 2:20 PM EST Office Visit Financial Clearance Phone Screening [place] [address] Chest XRay and LabWorkFinancial Clearance Phone ScreeningComment on above:Chest XRay and Lab WorkStart: 06-07-2024 End: 83-10-6523Ujihxtwyn to same day surgery qgzkml2406/07/2024 1:15 PM EST [facility] Surgery [address] [place] [address] [phone] Leah Zuniga, RD [address] [address] Purple/Praveena/0 Diet/TricareGeneral SurgeryComment on above:Purple/Praveena/0 Diet/TricareStart: 06-01-2024 End: 50-94-9794UQRGLXHA & METAB, URNICOTINE & METAB, UR Lab Routine Preoperative examination Expected: 06/01/2024, Expires: 08/31/2024[facility] Work Phone: Comment on above:Expected: 06/01/2024, Expires: 08/31/2024Start: 68-44-2207QhnbnvybkOhio Valley Surgical Hospitaltart: 04-24-2024 End: 93-49-5455Mmflacr encounter wyuudohsv17/24/2024 9:00 AM EDT Office Visit General Surgery [address] [place] [address] Ayse Grissom MD [address] [place] [address] K21.9 (ICD-10-CM) - Gastroesophageal reflux disease, unspecified whether esophagitis presentGeneral SurgeryComment on above:K21.9 (ICD-10-CM) - Gastroesophageal reflux disease, unspecified whether esophagitis presentStart: 04-16-2024 End: 15-79-8712Jpbhyog encounter procedureGeneral SurgeryComment on above: Ventral wall mass & abdominal wall herniaPT TO BRING IMAGING FOR APPT/CT A/P 03/29/24Start: 68-24-1005Eaxoo-19 Vaccine ( season)Covid-19 Vaccine ()[facility] Systemtart: 70-15-1479Mxtfi-19 Vaccine ( season)Covid-19 Vaccine ( season)[facility] Systemtart: 04-01-2024 Influenza vaccinationBlanchard Valley Health Systemtart: 72-08-5578Iudizlp referralWayne Hospital Work Phone: Start: 78-03-2110Baosp BMI ScreeningAdult BMI ScreeningBrown Memorial Hospital SystemStart: 11-02-2023 End: 42-96-4410Jnapghrvlmyi consultation with kripdsf4411/02/2023 11:30 AM EDT Telemedicine Maternal- Medicine at [facility] [address] [place] [address] Eddie Chavez MD [address] [place], [place] [phone] (Work) Héctor Aguilar MD [address] [facility] [address]ST [place] [address] [facility]: 10-18-2023 End: 36-54-2892Epikznaizwce consultation with gaapbxl6010/18/2023 1:30 PM EDT Telemedicine Maternal- Medicine at [facility] [address] [place] [address] Eddie Chavez MD [address] [place] [address] [facility] HospitalStart: 10-18-2023 End: 57-48-8496Vucnmgj encounter lgbusyqqi53/19/2024 12:30 PM EDT Appointment [facility] - Ultrasound [address] [place] [phone] [phone] Healthcare - UltrasoundStart: 10-13-2023 End: 41-39-2493Hjsfxnj encounter kkemirjnz18/14/2024 10:50 AM EDT Routine [facility] [address] [place] [phone] Adrian Kerr, DO [address] [place] [address] [facility] BCP OBStart: 09-15-2023 End: 09-72-1669ZPR panel - Blood by Automated countCBC Lab Routine Diabetes mellitus screening Expected: 09/15/2023 (Approximate), Expires: 09/15/2024[facility] Work Phone: comment on above:Expected: 09/15/2023 (Approximate), Expires: 09/15/2024Start: 09-15-2023 End: 70-10-4126Trkiddtikei of glucose 1 hour after glucose challenge for glucose tolerance testGlucose tolerance, 1 hour Lab Routine Diabetes mellitus screening Expected: 09/15/2023 (Approximate), Expires: 09/15/2024NOFreeman Neosho HospitalComment on above:Expected: 09/15/2023 (Approximate), Expires: 09/15/2024Start: 09-15-2023 End: 68-51-8857Ynibwcqrgwg [Units/volume] in Serum or PlasmaTSH Lab Routine Hypothyroidism, unspecified type (CMS/HCC) Expected: 09/15/2023 (Approximate), Expires: 09/15/2024[facility] HealthcareComment on above:Expected: 09/15/2023 (Approximate), Expires: 09/15/2024Start: 09-14-2023 End: 14-91-5735Lmxxplw encounter procedureTriHealth Bet[facility] US ImagingStart: 14-95-6875Yhhkz-19 Vaccine ( season)Covid-19 Vaccine ()[facility] Systemtart: 36-23-4708Zjekvsvzz vaccination Influenza VaccineBrown Memorial Hospital SystemStart: 21-45-0069BfcwfssybOhio Valley Surgical Hospitaltart: 58-05-8749Dcsyaejhy for malignant neoplasm of cervix [facility] Systemtart: 91-76-7672NTjW,Tdap and Td Vaccines (1 - Tdap)DTaP,Tdap and Td Vaccines (1 - Tdap)[facility] Centertart: 49-65-5577Jdpmwahup B Vaccine (1 of 3 - 19+ 3-dose series)Hepatitis B Vaccine (1 of 3 - 19+ 3-dose series)[facility] Systemtart: 56-90-1221Xohwr microalbumin profileDTaP,Tdap,Td Vaccine (1 - Tdap)[facility] Systemtart: 97-75-4066Xofgn BMI Follow Up PlanAdult BMI Follow Up PlanNovant Health Kernersville Medical Centertart: 17-55-2344Uvvqmu PCP Team Chronic Disease VisitAnnual PCP Team Chronic Disease VisitBlanchard Valley Health Systemtart: 79-97-7490Jqwdbgo ScreeningAnxiety ScreeningBlanchard Valley Health Systemtart: 92-73-2212BM Controlled (<130/80)BP Controlled (<130/80)[facility] Systemtart: 2004 Depression ScreeningDepression ScreeningBlanchard Valley Health Systemtart: 2004 Hepatitis C screeningHepatitis C ScreeningBlanchard Valley Health Systemtart: 53-72-8684PKJ screeningHIV ScreeningBlanchard Valley Health Systemtart: 64-06-4932Gctregjuix Screening Depression ScreeningBrown Memorial Hospital SystemStart: 70-66-7709Ybxvhkc Screening Tobacco ScreeningBrown Memorial Hospital SystemStart: 47-80-7865Tiynpbmxlvva vaccinationPneumococcal Vaccine (1 of 2 - PCV)[facility] WestComprehensive metabolic 2000 panel - Serum or PlasmaTrumbull Memorial Hospital End: 00-26-4693LB Abdomen and Pelvis WO contrastCT ABD/PEL WO IVCON Radiology Routine Postoperative visit S/P hernia repair 1 Occurrences starting 01/25/2025 until 02/24/2026[facility] Work Phone: Comment on above:1 Occurrences starting 01/25/2025 until 02/24/2026 End: 06-66-7156SKH COMPLETEECG COMPLETE ECG Routine Preoperative examination Hiatal hernia Morbid obesity (HCC) 1 Occurrences starting 10/01/2024 until 09/28/2025[facility] HospitalComment on above:1 Occurrences starting 10/01/2024 until 09/28/2025Hemoglobin A1c/Hemoglobin.total in BloodHemoglobin A1c Lab Routine Diabetes mellitus screening Ordered: 09/15/2023[facility] HospitalComment on above:Ordered: 09/15/2023HERNIORRHAPHY INCISIONAL ABDOMINAL RECURRENT REDUCIBLE GREATER THAN 10cmHERNIORRHAPHY INCISIONAL ABDOMINAL RECURRENT REDUCIBLE GREATER THAN 10cm Preoperative examination Hiatal hernia Morbid obesity (HCC) [facility] End: 83-55-4481AKMZ SLEEP APNEA TEST (HSAT)HOME SLEEP APNEA TEST (HSAT) Procedures Routine Morbid obesity due to excess calories (HCC) S/P bariatric surgery Preoperative testing Snoring Other fatigue Morbid obesity with BMI of 40.0-44.9, adult (HCC) 1 Occurrences starting 05/24/2024 until 05/24/2025 [facility] WestComment on above:1 Occurrences starting 05/24/2024 until 05/24/2025Laps gstr rstcv px w/byp maria antonia-en-y limb <150 cmLAPAROSCOPIC GASTRIC RESTRICTIVE SURG W/ BYPASS & MARIA ANTONIA-EN-Y 150CM OR LESS Morbid obesity (HCC) Hiatal hernia Preoperative examination MAIN PAVILIONLaps gstr rstcv px w/byp maria antonia-en-y limb <150 cmLAPAROSCOPIC GASTRIC RESTRICTIVE SURG W/ BYPASS & MARIA ANTONIA-EN-Y 150CM OR LESS Preoperative examination Hiatal hernia Morbid obesity (HCC) MAIN PAVILIONLaps rpr paraesphgl hrna incl fundplsty w/meshLAPAROSCOPIC RPR PARAESOPHAGEAL HERNIA W/O FUNDOPLASTY W/ MESH Morbid obesity (HCC) Hiatal hernia Preoperative examination MAIN PAVILIONLaps rpr paraesphgl hrna incl fundplsty w/meshLAPAROSCOPIC RPR PARAESOPHAGEAL HERNIA W/O FUNDOPLASTY W/ MESH Preoperative examination Hiatal hernia Morbid obesity (HCC) [facility] Patient EducationHiatal hernia DiverticulosisKettering Health Main Campus Work Phone: Patient referralWayne Hospital Work Phone: REFER FOR ADMIT INTERVIEWREFER FOR ADMIT INTERVIEW Procedures Routine Preoperative examination Hiatal hernia Morbid obesity (HCC) Ordered: 10/01/2024[facility] Work Phone: Comment on above:Ordered: 10/01/2024XR Ankle - right GE 3 ViewsTrumbull Memorial Hospital End: 85-69-5115VE Chest PA and LateralXR CHEST 2V FRONTAL/LAT Radiology Routine Morbid obesity due to excess calories (HCC) S/P bariatricsurgery Preoperative testing Snoring Other fatigue Morbid obesity with BMI of 40.0-44.9, adult (HCC) 1 Occurrences starting 05/24/2024 until 06/23/2025[facility] Work Phone: Comment on above:1 Occurrences starting 05/24/2024 until 06/23/2025[facility] Immunizations Immunization DateImmunizationNotesCare DawskhipCighgugh23-13-4009nwmgnyfaq virus vaccine, unspecified formulationKathy Lue [facility]2022influenza, seasonal, injectableFNP-BC Yandel Shammo Work Phone: [facility] Payers DatePayer CategoryPayerPolicy [id number] Care HMO (unspecified) [id number] Health [id number]861.39502-58-3643Ebogisa Health [id number]-hrs 60-92-4216VcmmuqrREMGKHFN EAST [id number] 2023-[facility] [phone] [address] [place] [address] Indemnity [id number] of Defense ( and others)[id number] (not Medicare or Medicaid) 1.2.840.940101.1.13.159.2.7.9.476686.56889.64425-93-3006BGYYOPF () 1.2.840.456302.1.13.693.2.7.9.358314.085285.20242-73-7531Vqasrojcud of Defense ( and others)[id number] of Defense ( and others)1.2.840.510249.1.13.693.2.7.3.761613.44598-52-9157Pvzlldujju of Defense ( and others)[id number] 2.16.840.1.839758.3.579.2.82879-89-1748Yyqegem6086294 2.16.840.1.936080.3.579.[id number] 2.16.840.1.722790.3.579.2.37575-95-0105Bywtqcw36879460 2.16.840.1.150716.3.579.2.682169-36-8818Zcdodbt74392702 2.16.840.1.550409.3.579.2.522201-87-1082Xmlneqj36708441 2.16.840.1.817093.3.579.2.144242-59-7144Rowwqdj58110734 2.16.840.1.054807.3.579.2.461963-71-2219Uyhoucv3085445 2.16.840.1.295238.3.579.2.068214-68-8127Phyoftl9699860 2.16.840.1.287907.3.579.2.107124-82-8418Moqgdqg6835441 2.16.840.1.062230.3.579.2.140869-43-1599Cvznvcy5432849 2.16840.1.342182.3.579.2.541549-93-7897Snrtcsn7908785 2.16.840.1.815582.3.579.2.788655-88-6512Efhlkvt6411341 2.16.840.1.654686.3.579.2.866414-07-7778Lswetji8477007 2.16.840.1.103570.3.579.2.824823-06-1804Dhbttly8428184 2.16.840.1.503549.3.579.2.474050-82-6404Wjmbbkb1532319 2.16.840.1.722284.3.579.2.503949-93-0445Qgxyafv257520 2.16.840.1.199338.3.579.2.373231-52-1884Iqbxvlc75438 2.16.840.1.352530.3.579.2.829060-94-8822Eyqujqk92056955 2.16.840.1.003925.3.579.2.596316-08-3079Mwnrqpa1183504 2.840.1.069553.3.579.2.979196-01-3632Meovcqn0734007 2.16840.1.911531.3.579.2.156403-62-5104Htywclc7730334 2.0.1.799767.3.579.2.507045-24-6735Ciiofgl7660227 2.0.1.203202.3.579.2.058545-44-8841Lghhtnn2343512 2.0.1.409193.3.579.2.456033-06-7603Lqwiwui7614151 2.0.1.918057.3.579.2.998883-71-0292Stnnpep3693340 2.0.1.156597.3.579.2.748162-47-8360Pnwrvpj9793410 2.0.1.508310.3.579.2.947318-06-5230Iizvdeu9347638 2.0.1.881492.3.579.2.599345-73-8448Uvgeebf3902061 2.0.1.963615.3.579.2.184531-35-7259Psqhvgj1854035 2.0.1.719315.3.579.2.958998-76-4128Zryvwle73875286 2.0.1.275304.3.579.2.92709-58-6854Xrrxopz82795141 2.0.1.267920.3.579.2.96736-52-8674Zhrssopnxc of Defense ( and others)[id number] 2.0.1.854589.3.579.2.511Rtuebjw13762014 2.16.840.1.453093.3.579.2.531 Social History DateTypeDetailFacilityStart: 07-20-2023 End: 36-95-2116Jtt Assigned At BirthPremier Healthtart: 01-26-2023 End: 99-06-8151Sozpwpj smoking statusEx-smoker (finding)[facility] BellevueStart: 10-68-3461Rbvixit smoking status NHIS Smoker (finding)[facility] Hospitaltart: 20-24-9298[facility] Ohiotart: 01-03-2023 End: 94-74-5534Gpgdkqb smoking status NHISNever smoked tobaccoNOME Healthcare Start: 01-03-2023 End: 67-58-6413Khpzxjx use and exposureSmokeless tobacco non-userBrown Memorial Hospital SystemStart: 09-15-2023 End: 76-71-0552Ikdzzmi intakeEx-drinker (finding)[facility] SystemStart: 07-20-2023 End: 98-77-6915Onhsraf of Social functionNOMS HealthcareHow often to you have a drink containing alcohol?Monthly or lessNOMS HealthcareHow many standard drinks containing alcohol do you have on a typical day?1 or 2NOMS HealthcareHow often do you have 6 or more drinks on 1 occasion?NeverNOMS HealthcareStart: 01-03-2023 Alcohol Commentcaffeine: 1-2 cups per dayNOME HealthcareStart: 04-11-2023 PregnancyProLake County [facility] Hospital [facility] West SystemStart: 94-64-8655Hjsykj identityIdentifies as female gender (finding)[facility] HealthcareTobacco smoking status NHISTobacco smoking consumption unknownLake County Memorial Hospital [facility] West Work Phone: start: 05-66-7450Xdk assigned at birthNot on file [facility] SystemStart: 03-53-1396Ndhcyp orientationHeterosexual (finding) [facility] SystemStart: 95-45-4918Zdqcigb smoking status NHISSmokes tobacco dailyLake County Memorial Hospital - WestHistory of tobacco usePipe SmokerLake County Memorial Hospital [facility] Start: 13-03-2518Qhbxqpkq Score (1-100), lower number is lower dbeo58FibdvdyavBlanchard Valley Health Systemtart: 95-82-5096Laedssc use and exposureUser of smokeless tobacco [facility] Systemtart: 46-53-3660Oqrnnzucl beverage intakeLifetime non-drinker (finding)[facility] Systemtart: 03-13-2024 End: 15-34-4405Pjwkhib CommentVapeCSelect Medical Specialty Hospital - Columbustart: 06-19-2024 End: 38-22-3666ZeuCcbfks (finding)[facility] Hospitaltart: 92-07-0089Gwlddvg CommentSocially/rareNOMS HealthcareHas the electric, gas, oil, or water company threatened to shut off services in your home in past 12MoNo [facility] Work Phone: (I/We) worried whether (my/our) food would run out before (I/we) got money to buy more.Never trueBlanchard Valley Health Systemtart: 05-30-2023 End: 03-00-7588Cermwkux to SARS-CoV-2 (event)Not sureNOMS HealthcareSexual OrientationExec[facility] Medical Equipment Procedure CodeEquipment CodeEquipment Original TextEquipment IdentifierDatesMesh Prolene Square Flat 68n87cy Surgical Knit Nonabsorbable Nonreactive - [id number]: 11-23-2024 Goals DatePatient GoalDesired Activity/StatePersonal health goalPersonal health goal Functional Status CijlFnqcwotnwgVozcexFcbnuvlb34-24-0289Dtl you deaf, or do you have serious difficulty hearingNo 11/27/2024 11:51 AM Rupal Sanchez RN NoCleveland Kibdud89-73-0769Zic you blind, or do you have serious difficulty seeing, even when wearing glassesNo 11/27/2024 11:51 AM Rupal Sanchez RN NoCleveland Rxpslu90-81-0709Px you have serious difficulty walking or climbing stairsNo 11/27/2024 11:51 AM EDRupal Alfaro RN [facility]04-29-2025Do you have difficulty dressing or bathingNo 11/27/2024 11:51 AM EDRupal Alfaro RN [facility] SystemSaprky21-64-4696Lmaaics of a physical, mental, or emotional condition, do you have difficulty doing errands alone such as visiting a physician's office or shoppingNo 11/27/2024 11:51 AM EDRupal Alfaro RN [facility] CenterMpwvpa73-98-3964Lgqjqtnusp StatusN/[facility] General Surgery Pycolui75-34-1492Rwehd score [AUDIT-C]1 07/20/2023 1:39 PM SHAHLA [facility] HospitalSgedysidka59-18-5761Dxtlvdkdro StatusNoExec[facility] Mental Status AfraVhoivdcsqwHkqvdzAjmjpyvl53-01-7089Tfsskmq of a physical, mental, or emotional condition, do you have serious difficulty concentrating, remembering, or making decisionsNo 11/27/2024 11:51 AM Rupal Sanchez RN [facility] Clinical Notes 01-17-2023 to 06-11-2025 Note Date & MyxtIppoPtwubevh20-08-7929 Hospital Discharge instructions Patient Education 06/11/2025 15:38:00 Kidney Stones, Xrlb-pv-Pgbx Kidney Stones Kidney stones are rock-like masses that form inside of the kidneys. Kidneys are organs that make pee (urine). A kidney stone may move into other parts of the urinary tract, including: The tubes that connect the kidneys to the bladder (ureters). The bladder. The tube that carries urine out of the body (urethra). Kidney stones can cause very bad pain and can block the flow of pee. The stone usually leaves your body through your pee. A doctor may need to take out the stone. What are the causes? Kidney stones may be caused by: Too much calcium in the body. This may be caused by too much parathyroid hormone in the blood. Uric acid crystals in the bladder. The body makes uric acid when you eat certain foods. Narrowing of one or both of the ureters. A kidney blockage that you were born with. Past surgery on the kidney or the ureters. What increases the risk? You are more likely to develop this condition if: You have had a kidney stone in the past. Other people in your family have had kidney stones. You do not drink enough water. You eat a diet that is high in protein, salt (sodium), or sugar. You are very overweight (obese). What are the signs or symptoms? Symptoms of a kidney stone may include: Pain in the side of the belly, right below the ribs. Pain usually spreads to the groin. Needing to pee often or right away. Pain when peeing. Blood in your pee. Feeling like you may vomit (nauseous). Vomiting. Fever and chills. How is this treated? Treatment depends on the size, location, and makeup of the kidney stones. The stones will often pass out of the body when you pee. You may need to: Drink more fluid to help pass the stone. ?In some cases, you may be given fluids through an IV tube at the hospital. Take medicine for pain. Change your diet to help keep kidney stones from coming back. Sometimes, you may need: A procedure to break up kidney stones using a beam of light (laser) or shock waves. Surgery to remove the kidney stones. Follow these instructions at home: Medicines Take sqcb-ikj-aqmtfkz and prescription medicines only as told by your doctor. Ask your doctor if the medicine prescribed to you requires you to avoid driving or using machinery. Eating and drinking Drink enough fluid to keep your pee pale yellow. ?You may be told to drink at least 8 10 glasses of water each day. This will help you pass the stone. If told by your doctor, change your diet. You may be told to: ?Limit how much salt you eat. ?Eat more fruits and vegetables. ?Limit how much meat, poultry, fish, and eggs you eat. Follow instructions from your doctor about what you may eat and drink. General instructions Collect pee samples as told by your doctor. You may need to collect a pee sample: ?24 hours after a stone comes out. ?8 12 weeks after a stone comes out, and every 6 12 months after that. Strain your pee every time you pee. Use the strainer that your doctor recommends. Do not throw out the stone. Keep it so that it can be tested by your doctor. Keep all follow-up visits. You may need X-rays and ultrasounds to make sure the stone has come out. How is this prevented? To prevent another kidney stone: Drink enough fluid to keep your pee pale yellow. This is the best way to prevent kidney stones. Eat healthy foods. Avoid certain foods as told by your doctor. You may be told to eat less protein. Stay at a healthy weight. Where to find more information National Kidney Foundation (NKF): kidney.org [facility] (UCF): [email or web address] Contact a doctor if: You have pain that gets worse or does not get better with medicine. Get help right away if: You have a fever or chills. You get very bad pain. You get new pain in your belly. You faint. You cannot pee. This information is not intended to replace advice given to you by your health care provider. Make sure you discuss any questions you have with your health care provider. Document Revised: 03/11/2023 Document Reviewed: 03/11/2023 [employer] Patient Education 2023 [employer]. 06/11/2025 15:37:48 Flank Pain, Adult Flank Pain, Adult Flank pain is pain that is located on the side of the body between the upper abdomen and the spine.This area is called the flank. The pain may occur over a short period of time (acute), or it may belong-term or recurring (chronic). It may be mild or severe. Flank pain can be caused by many things, including: Muscle soreness or injury. Kidney infection, kidney stones, or kidney disease. Stress. A disease of the spine (vertebral disk disease). A lung infection (pneumonia). Fluid around the lungs (pulmonary edema). A skin rash caused by the chickenpox virus (shingles). Tumors that affect the back of the abdomen. Gallbladder disease. Follow these instructions at home: Drink enough fluid to keep your urine pale yellow. Rest as told by your health care provider. Take oynz-ymq-dfaqmfo and prescription medicines only as told by your health care provider. Keep a journal to track what has caused your flank pain and what has made it feel better. Keep all follow-up visits. This is important. Contact a health care provider if: Your pain is not controlled with medicine. You have new symptoms. Your pain gets worse. Your symptoms last longer than 2 3 days. You have trouble urinating or you are urinating very frequently. Get help right away if: You have trouble breathing or you are short of breath. Your abdomen hurts or it is swollen or red. You have nausea or vomiting. You feel faint, or you faint. You have blood in your urine. You have flank pain and a fever. These symptoms may represent a serious problem that is an emergency. Do not wait to see if the symptoms will go away. Get medical help right away. Call your local emergency services (911 in the [place] Do not drive yourself to the hospital. Summary Flank pain is pain that is located on the side of the body between the upper abdomen and the spine. The pain may occur over a short period of time (acute), or it may be long-term or recurring (chronic). It may be mild or severe. Flank pain can be caused by many things. Contact your health care provider if your symptoms get worse or last longer than 2 3 days. This information is not intended to replace advice given to you by your health care provider. Make sure you discuss any questions you have with your health care provider. Document Revised: 09/28/2021 Document Reviewed: 09/28/2021 [employer] Patient Education 2023 [employer]. 06/11/2025 15:37:41 Urinary Tract Infection, Adult Urinary Tract Infection, Adult A urinary tract infection (UTI) is an infection of any part of the urinary tract. The urinary tractincludes the kidneys, ureters, bladder, and urethra. These organs make, store, and get rid of urinein the body. An upper UTI affects the ureters and kidneys. A lower UTI affects the bladder and urethra. What are the causes? Most urinary tract infections are caused by bacteria in your genital area around your urethra, where urine leaves your body. These bacteria grow and cause inflammation of your urinary tract. What increases the risk? You are more likely to develop this condition if: You have a urinary catheter that stays in place. You are not able to control when you urinate or have a bowel movement (incontinence). You are female and you: ?Use a spermicide or diaphragm for control. ?Have low estrogen levels. ?Are . You have certain genes that increase your risk. You are sexually active. You take antibiotic medicines. You have a condition that causes your flow of urine to slow down, such as: ?An enlarged prostate, if you are male. ?Blockage in your urethra. ?A kidney stone. ?A nerve condition that affects your bladder control (neurogenic bladder). ?Not getting enough to drink, or not urinating often. You have certain medical conditions, such as: ?Diabetes. ?A weak disease-fighting system (immunesystem). ?Sickle cell disease. ?Gout. ?Spinal cord injury. What are the signs or symptoms? Symptoms of this condition include: Needing to urinate right away (urgency). Frequent urination. This may include small amounts of urine each time you urinate. Pain or burning with urination. Blood in the urine. Urine that smells bad or unusual. Trouble urinating. Cloudy urine. Vaginal discharge, if you are female. Pain in the abdomen or the lower back. You may also have: Vomiting or a decreased appetite. Confusion. Irritability or tiredness. A fever or chills. Diarrhea. The first symptom in older adults may be confusion. In some cases, they may not have any symptoms until the infection has worsened. How is this diagnosed? This condition is diagnosed based on your medical history and a physical exam. You may also have other tests, including: Urine tests. Blood tests. Tests for STIs (sexually transmitted infections). If you have had more than one UTI, a cystoscopy or imaging studies may be done to determine the cause of the infections. How is this treated? Treatment for this condition includes: Antibiotic medicine. Lbzz-eeg-fpvbqsm medicines to treat discomfort. Drinking enough water to stay hydrated. If you have frequent infections or have other conditions such as a kidney stone, you may need to see a health care provider who specializes in the urinary tract (urologist). In rare cases, urinary tract infections can cause sepsis. Sepsis is a life- threatening condition that occurs when the body responds to an infection. Sepsis is treated in the hospital with IV antibiotics, fluids, and other medicines. Follow these instructions at home: Medicines Take pssb-imz-ikdtzrs and prescription medicines only as told by your health care provider. If you were prescribed an antibiotic medicine, take it as told by your health care provider. Do notstop using the antibiotic even if you start to feel better. General instructions Make sure you: ?Empty your bladder often and completely. Do not hold urine for long periods of time. ?Empty your bladder after sex. ?Wipe from front to back after urinating or having a bowel movement if you are female. Use each tissue only one time when you wipe. Drink enough fluid to keep your urine pale yellow. Keep all follow-up visits. This is important. Contact a health care provider if: Your symptoms do not get better after 1 2 days. Your symptoms go away and then return. Get help right away if: You have severe pain in your back or your lower abdomen. You have a fever or chills. You have nausea or vomiting. Summary A urinary tract infection (UTI) is an infection of any part of the urinary tract, which includes the kidneys, ureters, bladder, and urethra. Most urinary tract infections are caused by bacteria in your genital area. Treatment for this condition often includes antibiotic medicines. If you were prescribed an antibiotic medicine, take it as told by your health care provider. Do notstop using the antibiotic even if you start to feel better. Keep all follow-up visits. This is important. This information is not intended to replace advice given to you by your health care provider. Make sure you discuss any questions you have with your health care provider. Document Revised: 02/22/2021 Document Reviewed: 02/27/2021 [employer] Patient Education 2023 [employer]. Follow Up Care 06/10/2025 11:02:23 With:Bárbara Nguyen PA-C, JAZMINEL Address: When: Unknown Comments:F/up pending results [facility] 11-11-2025 NotePatient Education Orthopedics Flank Pain, Adult Flank pain is pain that is located on the side of the body between the upper abdomen and the spine.This area is called the flank. The pain may occur over a short period of time (acute), or it may belong-term or recurring (chronic). It may be mild or severe. Flank pain can be caused by many things, including: ??? Muscle soreness or injury. ??? Kidney infection, kidney stones, or kidney disease. ??? Stress. ??? A disease of the spine (vertebral disk disease). ??? A lung infection (pneumonia). ??? Fluid around the lungs (pulmonary edema). ??? A skin rash caused by the chickenpox virus (shingles). ??? Tumors that affect the back of the abdomen. ??? Gallbladder disease. Follow these instructions at home: ??? Drink enough fluid to keep your urine pale yellow. ??? Rest as told by your health care provider. ??? Take bfuq-nxh-ieamfjk and prescription medicines only as told by your health care provider. ??? Keep a journal to track what has caused your flank pain and what has made it feel better. ??? Keep all follow-up visits. This is important. Contact a health care provider if: ??? Your pain is not controlled with medicine. ??? You have new symptoms. ??? Your pain gets worse. ??? Your symptoms last longer than 2?3 days. ??? You have trouble urinating or you are urinating very frequently. Get help right away if: ??? You have trouble breathing or you are short of breath. ??? Your abdomen hurts or it is swollen or red. ??? You have nausea or vomiting. ??? You feel faint, or you faint. ??? You have blood in your urine. ??? You have flank pain and a fever. These symptoms may represent a serious problem that is an emergency. Do not wait to see if the symptoms will go away. Get medical help right away. Call your local emergency services (911 in the [place] Do not drive yourself to the hospital. Summary ??? Flank pain is pain that is located on the side of the body between the upper abdomen and the spine. ??? The pain may occur over a short period of time (acute), or it may be long- term or recurring (chronic). It may be mild or severe. ??? Flank pain can be caused by many things. ??? Contact your health care provider if your symptoms get worse or last longer than 2?3 days. This information is not intended to replace advice given to you by your health care provider. Make sure you discuss any questions you have with your health care provider. Document Revised: 09/28/2021 Document Reviewed: 09/28/2021 [employer] Patient Education ? 2023 [employer]. Urology Kidney Stones Kidney stones are rock-like masses that form inside of the kidneys. Kidneys are organs that make pee (urine). A kidney stone may move into other parts of the urinary tract, including: ??? The tubes that connect the kidneys to the bladder (ureters). ??? The bladder. ??? The tube that carries urine out of the body (urethra). Kidney stones can cause very bad pain and can block the flow of pee. The stone usually leaves your body through your pee. A doctor may need to take out the stone. What are the causes? Kidney stones may be caused by: ??? Too much calcium in the body. This may be caused by too much parathyroid hormone in the blood. ??? Uric acid crystals in the bladder. The body makes uric acid when you eat certain foods. ??? Narrowing of one or both of the ureters. ??? A kidney blockage that you were born with. ??? Past surgery on the kidney or the ureters. What increases the risk? You are more likely to develop this condition if: ??? You have had a kidney stone in the past. ??? Other people in your family have had kidney stones. ??? You do not drink enough water. ??? You eat a diet that is high in protein, salt (sodium), or sugar. ??? You are very overweight (obese). What are the signs or symptoms? Symptoms of a kidney stone may include: ??? Pain in the side of the belly, right below the ribs. Pain usually spreads to the groin. ??? Needing to pee often or right away. ??? Pain when peeing. ??? Blood in your pee. ??? Feeling like you may vomit (nauseous). ??? Vomiting. ??? Fever and chills. How is this treated? Treatment depends on the size, location, and makeup of the kidney stones. The stones will often pass out of the body when you pee. You may need to: ??? Drink more fluid to help pass the stone. ? In some cases, you may be given fluids through an IV tube at the hospital. ??? Take medicine for pain. ??? Change your diet to help keep kidney stones from coming back. Sometimes, you may need: ??? A procedure to break up kidney stones using a beam of light (laser) or shock waves. ??? Surgery to remove the kidney stones. Follow these instructions at home: Medicines ??? Take qvey-qiu-xaehgnz and prescription medicines only as told by your doctor. ??? Ask your doctor if the medicin (more content not included)...[facility]07-28-2025 History of Present illness Narrative* Ran Sears Tariq, DPM - 02/25/2025 10:20 AM EDT Patient: Tiffani Allison : 1985 PCP: [...] Insecurity: No Food Insecurity (11/26/2024) Received from [facility] Hunger Vital Sign Worried About Running Out of Food in the Last Year: Never true Ran Out of Food in the Last Year: Never true Transportation Needs: No Transportation Needs (11/26/2024) Received from [facility] PRAPARE - Transportation Lack of Transportation (Medical): No Lack of Transportation (Non-Medical): No Physical Activity: Not on file Stress: Not on file Social Connections: Not on file Intimate Partner Violence: Not on file Housing Stability: Unknown (11/26/2024) Received from [facility] Housing Stability Vital Sign Unable to Pay [...] weeks Ran Osullivan DPM documented in this encounterHarry S. Truman Memorial Veterans' [id number] NoteHNO ID: [id number] Author: ANTHONY MCKEON RD Service: ? Author Type: Registered Dietitian Type: Progress Notes Filed: 02/19/2025 14:54 Note Text: Patient was scheduled for a nutrition appointment today. The patient did not check into their scheduled appointment. I sent the patient a [employer] message encouraging them to reschedule their appointment by calling [phone]. [facility]07-22-2025 History of Present illness Narrative* Anthony Mckeon RD - 02/19/2025 2:54 PM EDT Patient was scheduled for a nutrition appointment today. The patient did not check into their scheduled appointment. I sent the patient a [employer] message encouraging them to reschedule their appointment by calling [phone]. documented in this encounterL[facility] Telephone encounter Note * Telephone Encounter - Khoa Silveira APRN.CNP - 01/25/2025 11:29 AM EDT Spoke with Tiffani Allison today, January 25, 2025, on the phone regarding her increased pain. Patientstates that her wound is almost completely close at the inferior aspect of her midline. However, she continues to have increased pain and requiring both muscle relaxers and gabapentin. Possibly neuropathic pain. Plan to get CT to rule out post surgical concerns. If no acute findings on CT, will plan to refer to chronic pain management for further discussion/interventions for abdominal (neuropathic) pain. Khoa Silveira, MSN, HEALTH CARE SANITARY TECHNICIAN, FASHION DESIGNER-C January 25, 2025 11:30 AM [facility]06-27-2025 Miscellaneous Notes* Telephone Encounter - Khoa Silveira APRN.CNP - 01/25/2025 11:29 AM EDT Spoke with Tiffani Allison today, January 25, 2025, on the phone regarding her increased pain. Patientstates that her wound is almost completely close at the inferior aspect of her midline. However, she continues to have increased pain and requiring both muscle relaxers and gabapentin. Possibly neuropathic pain. Plan to get CT to rule out post surgical concerns. If no acute findings on CT, will plan to refer to chronic pain management for further discussion/interventions for abdominal (neuropathic) pain. Khoa Silveira, MSN, HEALTH CARE SANITARY TECHNICIAN, FASHION DESIGNER-C January 25, 2025 11:30 AM documented in this encounterLake [facility]-30-2025 Nelly ID: [id number] Author: KHOA SILVEIRA APRN.AUTOMATIC STEEL TIE ADJUSTER Service: ? Author Type: Nurse Practitioner Type: Progress Notes Filed: 12/28/2024 11:27 Note Text: [facility] Clinic Date: December 28, 2024 Tiffani Allison 39 year old female CHIEF COMPLAINT: Patient presents for a wound check. HPI: Here for wound check after open bilateral TAR, incisional hernia repair and implantation of mesh on 11/23/[address] Jeff. Patient also underwent with Ayse Grissom M.D. ([place]), a laparoscopic paraesophageal hernia repair and conversion to Mariaa Ntonia-en-Y gastric bypass. Last seen in clinic on [...] office if any concerns with healing wound Khoa Silveira, MSN, AUTOMATIC STEEL TIE ADJUSTER [facility] 28[facility] History of Present illness Narrative* Khoa Silveira, BRENDA.AUTOMATIC STEEL TIE ADJUSTER - 12/28/2024 11:03 AM EDT Images from the original note were not included. [facility] Clinic Date: December 28, 2024 Tiffani Allison 39 year old female CHIEF COMPLAINT: Patient presents for a wound check. HPI: Here for wound check after open bilateral TAR, incisional hernia repair and implantation of mesh on11/23/[address] Jeff. Patient also underwent with Ayse Grissom M.D. ([place]), a laparoscopic paraesophageal hernia repair and conversion to Maria Antonia-en-Y gastric bypass. Last seen in clinic on [...] with more drainage noted at night. She deniesany fevers. She inquires about resuming activities, including lifting weights and riding roller Algisysers, but notes that she is still in [...] office if any concerns with healing wound Khoa Silveira, MSN, AUTOMATIC STEEL TIE ADJUSTER December 28, 2024 * Shireen Morrissey - 12/28/2024 10:59 AM EDT What is the reason for your visit today? Post op Who is your referring physician? Khoa Silveira Are you having poor oral intake? NO Have you had unintentional weight loss of 15 lbs/7 Kg in the last 3-6 months? NO Bowels: regular Wound: clean & dry Temperature: No Drains: No documented in this encounterL[facility]25 NoteHNO ID: [id number] Author: ?, ?, ? Service: ? Author Type: ? Type: Progress Notes Filed: 12/28/2024 11:27 Note Text: What is the reason for your visit today? Post op Who is your referring physician? Khoa Silveira Are you having poor oral intake? NO Have you had unintentional weight loss of 15 lbs/7 Kg in the last 3-6 months? NO Bowels: regular Wound: clean AND dry Temperature: No Drains: [facility]05-23-2025 NoteEducation (GENBMI) TIFFANI ALLISON ([id number]) 1985 F Date Time Provider Department 12/21/24 11:30 AM CHA KHAN Reason for Visit: Patient Education [91] [...] Reaction(s): seizures Date Reviewed: 12/21/2024 Reviewed by: Cha Khan RD - Fully Assessed Prescriptions as [...] B-comp w-Fe,Ca,FA<1mg (IRON-VITAMINS ORAL) Encounter Status:Closed by CHA KHAN on 12/21/24[facility] 12-21-2024 NoteHNO ID: [id number] Author: CHA KHAN RD Service: ? Author Type: Registered [...] visit. Either the patient or their legal client support representative has been informed of the risks [...] thiamine) Iron 45-60 mg and calcium citrate 5220-2917 mg/day in divided doses 2. Protein goal: [...] unit Total Time (mins): 28 Signed by: Cha Khan RDN, MARIA EUGENIA, [facility]05-23-2025 Note HNO ID: [id number] Author: AYSE GRISSOM MD Service: ? Author Type: Physician [...] Index Surgery Date of Surgery: 11/23/2024 Surgeon: Ayse Grissom MD Surgical Procedure: lap hiatal hernia repair, lap GJ, converted to open for JJ (with concurrent abdominal wall reconstruction by Dr. Jeff) 100 cm maria antonia limb, 60 cm BP limb. Pre-surgical weight: [...] RDN note Doing well REFERRALS: N/A LABS: Ayse Grissom MD Advanced Laparoscopic AND Bariatric Surgery Bariatric AND Metabolic [facility]05-22-2025 Evaluation note* Diagnosis Onset Date Resolution Status Admit Date Abdominal pain acuteMay 2024 10:59amAnxietyacuteMay 2024 10:59amDepressionacuteMay 2024 10:59amH/O gastric bypassacuteMay 2024 10:59amH/O hernia repair acuteMay 2024 10:59amHistory of repair of hiatal herniaacuteMay 2024 10:59amHypothyroidacuteMay 2024 10:59amOpen abdominal wall woundacuteMay 2024 10:59amAttention deficitacuteJuly 2024 9:55amDepressionacute Kaycee 2024 9:55amDifficulty concentratingacuteJuly 2024 9:55am HypothyroidacuteJuly 2024 9:55amIFG (impaired fasting glucose)acuteJuly 2024 9:55amIron deficiency anemiaacuteJuly 2024 9:55amRashacuteJuly 2024 9:55amScreening for lipid disordersacuteJuly 2024 9:55am [facility] Work Phone: 1(229) 204-913305-21-2025 NoteHNO ID: [id number] Author: JERALD SOUZA, PhD Service: ? Author Type: Physician Type: Progress Notes Filed: 12/26/2024 00:15 Note Text: [facility] DEPART[facility] OF PSYCHIATRY AND PS[facility]CHOLOGY[facility] Bariatric Behavioral Services Progress Note December 19, 2024 Billing codes: ABRAM FIELDS [address] Quang CPT Code: - 5914755 Virtual Group Psychotherapy Time initiated session: 12:00 PM to 1:11 PM I have communicated my name and active licensure. The patient's identity and physical location were verified at the time of this visit. Either the patient or their legal client support representative has been informed of the risks and benefits of -- and alternatives to -- treatment through a remote evaluation/session and consents to proceed with the session remotely. Platform: [employer]affix Session #: 1 with undersigned psychologist Index Surgery Date of Surgery: 11/23/2024 Surgeon: Ayse Grissom MD Surgical Procedure: 2017 LSG revised to RYGB (100 cm maria antonia limb, 60 cm BP limb) and lap hiatal hernia repair, lap GJ, converted to open for JJ (with concurrent abdominal wall reconstruction by Dr. Jeff) Pre-surgical weight: 317 lb Psychologist: Chadwick Helm, PhD Subjective: Ms. Allison returns for [...] once daily. metFORMIN (GLUCOPHAGE) (more content not included)...[facility] 12-14-2024 NoteHNO ID: [id number] Author: KHOA SILVEIRA APRN.AUTOMATIC STEEL TIE ADJUSTER Service: ? Author Type: Nurse Practitioner Type: Progress Notes Filed: 12/14/2024 15:25 Note Text: [facility] Clinic Date: December 14, 2024 Tiffani Allison 39 year old female CHIEF COMPLAINT: Patient presents for a wound check. HPI: Here for wound check after open bilateral TAR, incisional hernia repair and implantation of mesh on 11/23/[address] Jeff. Patient also underwent with Ayse Grissom M.D. ([place]), a laparoscopic paraesophageal hernia repair and conversion to Maria Antonia-en-Y gastric bypass. Last seen in clinic on [...] doxycycline. - Refilled muscle relaxers prescription at [facility]. - Advised to gradually reduce pain medication dosage. - Scheduled follow-up appointment on 12/28 at 11:00 AM. Khoa Silveira, MSN, AUTOMATIC STEEL TIE ADJUSTER [facility] 14[facility]05[facility] History of Present illness Narrative* Khoa Silveira, HEALTH CARE SANITARY TECHNICIAN.AUTOMATIC STEEL TIE ADJUSTER - 12/14/2024 11:27 AM EDT Images from the original note were not included. [facility] Clinic Date: December 14, 2024 Tiffani Allison 39 year old female CHIEF COMPLAINT: Patient presents for a wound check. HPI: Here for wound check after open bilateral TAR, incisional hernia repair and implantation of mesh on11/23/[address] Jeff. Patient also underwent with Ayse Grissom M.D. ([place]), a laparoscopic paraesophageal hernia repair and conversion to Maria Antonia-en-Y gastric bypass. Last seen in clinic on [...] doxycycline. - Refilled muscle relaxers prescription at [facility]. - Advised to gradually reduce pain medication dosage. - Scheduled follow-up appointment on 12/28 at 11:00 AM. WILBER Herrera, AUTOMATIC STEEL TIE ADJUSTER December 14, 2024 * Sudarshan Russell MA [...] Temperature: No Drains: No documented in this encounterL[facility] NoteHNO ID: [id number] Author: SUDARSHAN RUSSELL MA Service: ? Author Type: Heart Coordinator Type: Progress Notes Filed: 12/14/2024 15:25 Note Text: What is the reason for your visit today? Post op Who is your referring physician? Dr. Silveira Are you having poor oral intake? NO Have you had unintentional weight loss of 15 lbs/7 Kg in the last 3-6 months? NO Bowels: constipated Wound: drainage pink/ clear Temperature: No Drains: [facility]05-08-2025 Telephone encounter Note* Telephone Encounter - Kristi [...] appt. Reminded patient of how to reach [facility] or their surgeons office. Patient reminded to seek medical attention if they develop chest pain, a sudden onset of shortness of breath or persistent pain in the calf of their legs - BEST TO ALWAYS present to [facility] where you had your surgery Patient verbalized understanding of all advice and instructions given. Kristi Watts RN [facility] SPECIALTY CARE COORDINATION TELEPHONE ENCOUNTER 2nd attempt for post op phone call LVM with call back number [facility]05-08-2025 Miscellaneous Notes* Telephone Encounter - Kristi Watts RN - 12/06/2024 11:05 AM EDT [facility] SPECIALTY CARE COORDINATION POST-OP TELEPHONE CALL [facility] Post Op Telephone Call Pt was called [...] Reminded patient of how to reach [facility] or their surgeons office. Patient reminded to seek medical attention if they develop chest pain, a sudden onset of shortness of breath or persistent pain in the calf of their legs - BEST TO ALWAYS present to [facility] where you had your surgery Patient verbalized understanding of all advice and instructions given. Kristi Watts RN [facility] SPECIALTY CARE COORDINATION TELEPHONE ENCOUNTER 2nd attempt for post op phone call LVM with call back number documented in this encounterL[facility] Telephone encounter Note * Telephone Encounter - Kristi Watts RN - 12/05/2024 11:17 AM EDT [facility] SPECIALTY CARE COORDINATION TELEPHONE ENCOUNTER Post op call, Pt will call me back he answered and she was at an appointment [facility]05-07-2025 Miscellaneous Notes* Telephone Encounter - Kristi Watts RN - 12/05/2024 11:17 AM EDT [facility] SPECIALTY CARE COORDINATION TELEPHONE ENCOUNTER Post op call, Pt will call me back he answered and she was at an appointment documented in this encounterLake [facility]-07-2025 NoteHNO ID: [id number] Author: KHOA SILVEIRA APRN.AUTOMATIC STEEL TIE ADJUSTER Service: ? Author Type: Nurse Practitioner Type: Progress Notes Filed: 12/05/2024 13:10 Note Text: [facility] Clinic Date: December 05, 2024 Tiffani Allison 39 year old female CHIEF COMPLAINT: Patient presents for follow up from surgery. HPI: Here for follow up after open bilateral TAR, incisional hernia repair and implantation of mesh on 11/23/[address] Jeff. Patient also underwent with Ayse Grissom M.D. ([place]), a laparoscopic paraesophageal hernia repair and conversion to Maria Antonia-en-Y gastric bypass. She reports significant pain and [...] Recommended application of heat for muscle spasms. -MERCED drain removed in clinic without difficulty -Wound opened further at inferior aspect of midline - draining serosanguinous fluid.. Initiated wet-to-dry dressing changes twice daily to promote drainage and healing of the incision site. - Prescribed an additional 10-day course of antibiotics - Doxycyline 100 m (more content not included)...[facility]05-07-2025 History of Present illness Narrative* Khoa Silveira APRN.AUTOMATIC STEEL TIE ADJUSTER - 12/05/2024 11:02 AM EDT [facility] Clinic Date: December 05, 2024 Tiffanialexsander Allison 39 year old female CHIEF COMPLAINT: Patient presents for follow up from surgery. HPI: Here for follow up after open bilateral TAR, incisional hernia repair and implantation of mesh on 11/23/[address] Jeff. Patient also underwent with Ayse Grissom M.D. ([place]), a laparoscopic paraesophageal hernia repair and conversion to Maria Antonia-en-Y gastric bypass. She reports significant pain and [...] Recommended application of heat for muscle spasms. -MERCED drain removed in clinic without difficulty -Wound [...] to assess wound healing and overall progress. Khoa Silveira, MSN, AUTOMATIC STEEL TIE ADJUSTER December 05, 2024 * Sudarshan Russell MA - 12/05/2024 11:00 AM EDT What is the reason for your visit today? Post op Who is your referring physician? Dr. Silveira Are you having poor oral intake? NO Have you had unintentional weight loss of 15 lbs/7 Kg in the last 3-6 months? NO Bowels: constipation Wound: drainage blood Temperature: No Drains: Yes merced documented in this encounterLake [facility]-07-2025 NoteHNO ID: [id number] Author: SUDARSHAN RUSSELL MA Service: ? Author Type: Heart Coordinator Type: Progress Notes Filed: 12/05/2024 13:10 Note Text: What is the reason for your visit today? Post op Who is your referring physician? Dr. Silveira Are you having poor oral intake? NO Have you had unintentional weight loss of 15 lbs/7 Kg in the last 3-6 months? NO Bowels: constipation Wound: drainage blood Temperature: No Drains: Yes [facility]05-02-2025 NoteHNO ID: [id number] Author: AYSE GRISSOM MD Service: ? Author Type: Physician Type: Progress Notes Filed: 11/30/2024 13:43 Note Text: Metabolic Surgery Postoperative Virtual Clinic Visit Name: Tiffani Allison This visit was performed virtually via [employer] technology due to the COVID-19 epidemic as an effort to protect patients and minimize exposure.? Virtual Visit (Audio/Visual) I have discussed the nature of this visit with the patient which will occur via [facility] (Phone, Virtual Visit) and she agrees to proceed with this interaction . Index Surgery Date of Surgery: 11/23/2024 Surgeon: Ayse Grissom MD Surgical Procedure: lap hiatal hernia repair, lap GJ, converted to open for JJ (with concurrent abdominal wall reconstruction by Dr. Jeff) 100 cm maria antonia limb, 60 cm BP limb. Pre-surgical weight: [...] to increase liquid intake REFERRALS: N/A LABS: Ayse Grissom MD Advanced Laparoscopic AND Bariatric Surgery Bariatric AND Metabolic [facility]05-02-[facility] History of Present illness Narrative* Ayse Grissom MD - 11/30/2024 1:33 PM EDT [...] Index Surgery Date of Surgery: 11/23/2024 Surgeon: Ayse Grissom MD Surgical Procedure: lap hiatal hernia repair, lap GJ, converted to open for JJ (with concurrent abdominal wall reconstruction by Dr. Jeff) 100 cm maria antonia limb, 60 cm BP limb. Pre-surgical weight: [...] to increase liquid intake REFERRALS: N/A LABS: Ayse Grissmo MD Advanced Laparoscopic & Bariatric Surgery Bariatric & Metabolic [place] [facility] documented in this encounterLake [facility]04-29-2025 NoteHNO ID: [id number] Author: RUPAL PINTO RN Service: Nursing Author Type: Registered Nurse Type: Progress Notes Filed: 11/27/2024 13:09 Note Text: Patient is ready for discharge. AVS was explained to patient with all questions answered. IV was removed per policy. Patient was taken to the lobby by staff in a wheelchair with all belongings.[facility]04-29-2025 NoteHNO ID: [id number] Author: TASHA DE LA GARZA MD Service: General Surgery Author Type: Resident Type: Progress Notes Filed: 11/27/2024 07:17 Note Text: GENERAL SURGERY PROGRESS NOTE Tiffani Allison [id number] ASSESSMENT AND PLAN Tiffani Allison is a 39 year old female with PMHx HTN, GERD, hypothyroidism, psoriatic arthritis, severe obesity who is now s/p ventral incisional hernia repair with bilateral TAR, placement of retromuscular mesh (Dr. Jeff) concomitantly with laparoscopic converted to open paraesophageal hernia repair, gastric sleeve conversion to Maria Antonia-en-Y bypass (Dr. Grissom). Doing well post op, has return of bowel function, tolerating B2 diet. Off ketamine drip. Some erythema round incision PLAN: -Multimodal pain regimen -Bariatric stage 2 diet -Continue DVT ppx -IS, OOB - dc left sided drain today if discharged, will go home with the right sided drain -Tentatively home this afternoon if pain is better controlled -PO doxycycline Tasha De La Garza MD PGY5 General Surgery Resident [id number] Patient Active Hospital Problem List: Ventral hernia [...] breathing ABDOMEN: soft, appropriately tender, nondistended. - MERCED drains serosanguineous WOUND: clean, dry and intact [...] 18 Gauge 3 days Drain Duration Drain/Tube [facility] Left Upper Quadrant Abdomen Drain #1 -- days Drain/Tube 11/23/24 1604 [facility] Dipak Rodriguez Right Upper Quadrant Abdomen Drain #3 3 days Drain/Tube 11/23/24 1605 [facility] Dipak Rodriguez Left Lower Quadrant Abdomen Drain #2 3 days SURGERY/PROCEDURE: Procedure(s) and Anesthesia Type: Panel 1: * FLAP MUSCLE MYOCUTANEOUS OR FASCIOCUTANEOUS, TRUNK - General * HERNIORRHAPHY INCISIONAL ABDOMINAL ADULT INITIAL REDUCIBLE GREATER THAN 10cm - General Panel 2: * LAPAROSCOPIC RPR PARAESOPHAGEAL HERNIA W/O FUNDOPLASTY W/ MESH - General * LAPAROSCOPIC GASTRIC RESTRICTIVE SURG W/ BYPASS AND MARIA ANTONIA-EN-Y 150CM OR LESS/ SLEEVE TO BYPASS - [facility]-2025 NoteHNO ID: [id number] Author: TRINIDAD MAGAÑA RN Service: Care Management Author Type: Registered Nurse Type: Care Mgt Initial Assessment Filed: 11/26/2024 14:14 Note Text: CARE MANAGEMENT: ASSESSMENT AND DISCHARGE PLAN SERVICE DATE: November 26, 2024 SERVICE TIME: 2:13 PM PCP: Elisabeth Beckman NP Primary Contact: Extended Emergency Contact Information Primary Emergency Contact: Jesus Allison Address: [address] [place] [address] Mobile Relation: Spouse Secondary Emergency Contact: Martha Esteban [facility] Mobile Relation: Mother Admission Status: Inpatient Insurance Provider: SARAH POS Discharge Planning requested by: Per Department Practice Potential Transition Plans No Services Indicated Advance Directives Current Advance Directive: None Warehouse Foreman Attempted to Assist with AD Completion: Yes [...] Be able to go home, General wellness [place] Explained: [place] Given: No Reason Not Given: [...] to follow POC for discharge planning SIGNATURE: Trinidad Magaña RN PATIENT NAME: Tiffani Allison DATE: November 26, 2024 TIME: 2:13 [facility]04-28-2025 NoteHNO ID: [id number] Author: TASHA DE LA GARZA MD Service: General Surgery Author Type: Resident Type: Progress Notes Filed: 11/26/2024 07:26 Note Text: GENERAL SURGERY PROGRESS NOTE Tiffani Allison [id number] ASSESSMENT AND PLAN Tiffani Allison is a 39 year old female with PMHx HTN, GERD, hypothyroidism, psoriatic arthritis, severe obesity who is now s/p ventral incisional hernia repair with bilateral TAR, placement of retromuscular mesh (Dr. Jeff) concomitantly with laparoscopic converted to open paraesophageal hernia repair, gastric sleeve conversion to Maria Antonia-en-Y bypass (Dr. Grissom). Doing well post op, has return of bowel function, tolerating B2 diet. Off ketamine drip PLAN: -wean off CLOTH WORKER tolday -Bariatric stage diet -Continue DVT ppx -IS, OOB -Maintain MERCED drains -Tentatively home tomorrow Tasha De La Garza MD PGY5 General Surgery Resident [id number] Patient Active Hospital Problem List: Ventral hernia [...] breathing ABDOMEN: soft, appropriately tender, nondistended. - MERCED drains serosanguineous WOUND: clean, dry and intact [...] Forearm 20 Gauge 3 days Peripheral 11/23/24 [facility] Short Right Wrist 18 Gauge 3 days Peripheral 11/23/24 1537 Right Hand 18 Gauge 2 days Drain Duration Drain/Tube [facility] Left Upper Quadrant Abdomen Drain #1 -- days Drain/Tube 11/23/24 1604 [facility] Dipak Rodriguez Right Upper Quadrant Abdomen Drain #3 2 days Drain/Tube 11/23/24 1605 [facility] Dipak Rodriguez Left Lower Quadrant Abdomen Drain #2 2 days SURGERY/PROCEDURE: Procedure(s) and Anesthesia Type: Panel 1: * HERNIORRHAPHY INCISIONAL ABDOMINAL RECURRENT REDUCIBLE GREATER THAN 10cm - General Panel 2: * LAPAROSCOPIC RPR PARAESOPHAGEAL HERNIA W/O FUNDOPLASTY W/ MESH - General * LAPAROSCOPIC GASTRIC RESTRICTIVE SURG W/ BYPASS AND MARIA ANTONIA-EN-Y 150CM OR LESS/ SLEEVE TO BYPASS - [facility]-2025 NoteHNO ID: [id number] Author: TUAN MORSE MD Service: General Surgery Author Type: Resident Type: Progress Notes Filed: 11/25/2024 10:29 Note Text: GENERAL SURGERY PROGRESS NOTE Tiffani Allison [id number] ASSESSMENT AND PLAN Tiffani Allison is a 39 year old female with PMHx HTN, GERD, hypothyroidism, psoriatic arthritis, severe obesity who is now s/p ventral incisional hernia repair with bilateral TAR, placement of retromuscular mesh (Dr. Jeff) concomitantly with laparoscopic converted to open paraesophageal hernia repair, gastric sleeve conversion to Maria Antonia-en-Y bypass (Dr. Grissom). Interval: POD2 - recovering appropriately. Pain better controlled. Diet progression and VTE ppx per bariatric service. Hgb down to 11 from 12.6, holding VTE PPX until Hgb stable on recheck. [facility] Will engage APMS for assistance in management of postoperative pain. 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 - potassium elevated on AM labs, rechecking - Ambulate, PT/OT - Incentive spirometry. Wean supplemental O2 as able - Diet progression per bariatric surgery. Phase II liquids - OK for VTE chemoprophylaxis - Continue [facility] care Dispo: [facility] Patient discussed with Dr. Oliva Morse MD PGY-4 Patient Active Hospital Problem [...] breathing ABDOMEN: soft, appropriately tender, nondistended. - MERCED drains serosanguineous WOUND: clean, dry and intact Labs: CBC, Coags, BMP, Mg, Phos Recent Labs 11/25/24 0407 11/25/24 0406 11/24/24 0544 WBC -- [...] Forearm 20 Gauge 2 days Peripheral 11/23/24 [facility] Short Right Wrist 18 Gauge 2 days Peripheral 11/23/24 1537 Right Hand 18 Gauge 1 day Drain Duration Drain/Tube [facility] Left Upper Quadrant Abdomen Drain #1 -- days Drain/Tube 11/23/24 1604 [facility] Dipak Rodriguez Right Upper Quadrant Abdomen Drain #3 1 day Drain/Tube 11/23/24 1605 [facility] Dipak [place] Left Lower Quadrant Abdomen Drain #2 1 day SURGERY/PROCEDURE: Procedure(s) and Anesthesia Type: Panel 1: * HERNIORRHAPHY INCISIONAL ABDOMINAL RECURRENT REDUCIBLE GREATER THAN 10cm - General Panel 2: * LAPAROSCOPIC RPR PARAESOPHAGEAL HERNIA W/O FUNDOPLASTY W/ MESH - General * LAPAROSCOPIC GASTRIC RESTRICTIVE SURG W/ BYPASS AND MARIA ANTONIA-EN-Y 150CM OR LESS/ SLEEVE TO BYPASS - [facility]25 NoteHNO ID: [id number] Author: TUAN MORSE MD Service: General Surgery Author Type: Resident Type: Progress Notes Filed: 11/24/2024 11:01 Note Text: GENERAL SURGERY PROGRESS NOTE Tiffani Allison [id number] ASSESSMENT AND PLAN Tiffani Allison is a 39 year old female with PMHx HTN, GERD, hypothyroidism, psoriatic arthritis, severe obesity who is now s/p ventral incisional hernia repair with bilateral TAR, placement of retromuscular mesh (Dr. Jeff) concomitantly with laparoscopic converted to open paraesophageal hernia repair, gastric sleeve conversion to Maria Antonia-en-Y bypass (Dr. Grissom). Interval: POD1 - recovering appropriately. Will continue to work on pain control. Diet progression and VTE ppx per bariatric service. [facility] Will engage APMS for assistance in management of postoperative pain. - Ambulate, PT/OT - Incentive spirometry. Wean supplemental O2 as able - Diet progression per bariatric surgery. OK to advance from our perspective - OK for VTE chemoprophylaxis - Continue [facility] care Dispo: [facility] Patient discussed with Dr. Oliva Morse MD PGY-4 Patient Active Hospital Problem [...] breathing ABDOMEN: soft, appropriately tender, nondistended. - MERCED drains serosanguineous WOUND: clean, dry and intact [...] Forearm 20 Gauge 1 day Peripheral 11/23/24 [facility] Short Right Wrist 18 Gauge 1 day Peripheral 11/23/24 1537 Right Hand 18 Gauge <1 day Drain Duration Drain/Tube Dip[facility] Left Upper Quadrant Abdomen Drain #1 -- days Indwelling Urinary Catheter 11/23/24 0810 [facility] 3-way Catheter 18 Fr 1 day Drain/Tube 11/23/24 1604 [facility] Dipak Rodriguez Right Upper Quadrant Abdomen Drain #3 <1 day Drain/Tube 11/23/24 1605 [facility] Dipak Rodriguez Left Lower Quadrant Abdomen Drain #2 <1 day SURGERY/PROCEDURE: Procedure(s) and Anesthesia Type: Panel 1: * HERNIORRHAPHY INCISIONAL ABDOMINAL RECURRENT REDUCIBLE GREATER THAN 10cm - General Panel 2: * LAPAROSCOPIC RPR PARAESOPHAGEAL HERNIA W/O FUNDOPLASTY W/ MESH - General * LAPAROSCOPIC GASTRIC RESTRICTIVE SURG W/ BYPASS AND MARIA ANTONIA-EN-Y 150CM OR LESS/ SLEEVE TO BYPASS - [facility]2025 NoteHNO ID: [id number] Author: JACQUIE HARRIS APRN.HAMMERER Service: ? Author Type: Nurse Microelectronics Engineer Type: Anesthesia Procedure Notes Filed: 11/23/2024 15:55 Note Text: ANESTHESIOLOGY PROCEDURE NOTE PIV General Information Procedure Start Time/Medication Administration: 11/23/2024 3:37 PM Procedure End Time: 11/23/2024 3:37 PM Patient Location: OR Staffing Anesthesiologist: Delores Roque MD HAMMERER: Jacquie Harris APRN.HAMMERER Performed by: HAMMERER Preparation Sterility Preparation: hand hygiene performed prior to procedure, surgical cap used, mask used, skin prep agent completely dried prior to procedure Site Prep: alcohol Procedure Details Indication: need for IV access Needle Size/Type: 18 gauge angiocath Orientation: Right Location: Hand Imaging Guidance Used: No SIGNATURE: Jacquie Harris APRN.HAMMERER PATIENT NAME: Tiffani Allison DATE: November 23, 2024 TIME: 3:37 PM CSN: [id number] [facility]04-[facility]-2025 NoteHNO ID: [id number] Author: MARLENE LINK APRN.HAMMERER Service: ? 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 Anesthesiologist: Delores Roque MD HAMMERER: Marlene Link APRN.HAMMERER Performed by: HAMMERER Indications and Patient Condition Indications for airway [...] no Airway not difficult SIGNATURE: Marlene Link APRN.HAMMERER PATIENT NAME: Tiffani Allison DATE: November 23, 2024 TIME: 9:27 AM CSN: [id number] [facility]04-11-2025 Telephone encounter Note* Telephone Encounter - Kristi Watts RN - 11/09/2024 1:08 PM EDT [facility] SPECIALTY CARE COORDINATION SURGERY APPROVAL CALL Received e-mail confirmation of insurance approval for bariatric surgery.Pre- operative call placed to the patient, this RN spoke with patient and agreed upon a surgery date of November 23 2024. Surgicalepisode request sent to [facility] surgery scheduling. Patient understands that the surgery type is Gastric Bypass as approved by insurance. Creatinine level 0.67 Patient instructed to start pre-op 800 calorie total protein liquid diet Atkins (5) daily beginning2 weeks prior to surgery. - Stop all ASA and NSAID products, [place] 3 fish oil, herbal products such as [...] - Ale video assigned. - Introduced Bariatric day care home mother Yes - All questions and concerns addressed and patient verbalized understanding. - Patient case reviewed. All nutrition appointments completed, psychology clearance obtained, surgeon visit and procedure type verified, medical optimization obtained and all testing complete. Does patient have Con ABO? Yes, patient has Con ABO. [facility] BioRepository - a research program mentioned to [...] via My Chart: Yes Kristi Watts RN [facility]04-11-2025 Miscellaneous Notes* Telephone Encounter - Kristi Watts RN - 11/09/2024 1:08 PM EDT [facility] SPECIALTY CARE COORDINATION SURGERY APPROVAL CALL Received e-mail confirmation of insurance approval for bariatric surgery.Pre- operative call placed to the patient, this RN spoke with patient and agreed upon a surgery date of November 23 2024. Surgicalepisode request sent to [facility] surgery scheduling. Patient understands that the surgery type is Gastric Bypass as approved by insurance. Creatinine level 0.67 Patient instructed to start pre-op 800 calorie total protein liquid diet Atkins (5) daily beginning2 weeks prior to surgery. - Stop all ASA and NSAID products, [place] 3 fish oil, herbal products such as [...] - Ale video assigned. - Introduced Bariatric day care home mother Yes - All questions and concerns addressed and patient verbalized understanding. - Patient case reviewed. All nutrition appointments completed, psychology clearance obtained, surgeon visit and procedure type verified, medical optimization obtained and all testing complete. Does patient have Con ABO? Yes, patient has Con ABO. [facility] BioRepository - a research program mentioned to [...] Yes Kristi Watts RN documented in this encounterLake County [facility]04-08-2025 NoteHNO ID: [id number] Author: REINALDO MENDOZA, PhD Service: ? Author Type: Psychologist Type: Progress Notes Filed: 11/06/2024 16:26 Note Text: [facility] [place] Name: Tiffani Allison MR#: [id number] Date: 11/06/2024 Time: 1 hour Referred by: [...] informed that she could be seen again. Reinaldo Webb, Ph.D.[facility]04-08-2025 History of Present illness Narrative* Reinaldo Mendoza, PhD - 11/06/2024 4:23 PM EDT [facility] [place] Name: Tiffani Allison MR#: [id number] Date: 11/06/2024 Time: 1 hour Referred by: [...] informed that she could be seen again. Reinaldo Webb, Ph.D. documented in this encounterLake [facility]04-08-2025 Instructions* Patient Instructions* Bela Banegas PA-C - 11/06/2024 10:48 AM EDT Images from the original note were not included. [facility]est[facility] PATIENT PREOPERATIVE INSTRUCTIONS Khoa Silveira APRN.C* has scheduled you for your procedure at this surgery center: * No surgery found * [facility] [place] OR Scheduling Office: [phone] --[address] [place] [address]. Please read below carefully for your personalized [...] office. If you are currently using a [id number] injectable or oral medication for diabetes or [...] please check with your dialysis center or glass rolling machine operator to see if any adjustments need to [...] Procedures: - YOU MUST HAVE A RESPONSIBLE SECURITY INTERN TAKE YOU HOME. A RECREATION ATTENDANT SUPERVISOR OR SHOCHET CANNOT BE MADE A RESPONSIBLE SECURITY INTERN. - We recommend that a responsible person [...] call the Tuesday before. Your surgeon s flight crew scheduler will tell you what time to call the office. - If you have not reached the departmental flight crew scheduler by 5 P.M., call [phone] after 5 P.M. the day before your surgery. Please be aware that emergency situations arise, which may delay or change your surgical time. If this happens, we will notify you as soon as possible and regret any inconvenience. If you already have an Advance Directive, please fax a copy to [phone] or email to for it to be added to your chart. If you do not have an Advance Directive, you can find the appropriate form and more information at [email or web address]. We recommend that youcomplete the Advance Directive form found on the website and bring it with you the day of your surgery. It can be witnessed and scanned into your chart that day. Bela Banegas PA-C documented in this encounterL[facility] History and physical note * Bela Banegas PA-C - 11/06/2024 10:21 AM EDT [...] scheduled for at the request of Dr. Khoa Silveira for consultation. My final recommendation will [...] fevers. Neurological: No history of TIA's, stroke, MACHINE TAPER tumor, impaired sensorium, hemiplegia, paraplegia orquadraplegia. No neurological symptoms or problems. Respiratory: No history of current cough or dyspnea, or pneumonia in the past 6 weeks. No history of respiratory/pulmonary symptoms or problems. Cardiovascular: No history of HTN requiring medication, no history of angina, CHF, CA, cardiac surgery or stents. Denies rest pain, [...] 406 QTC Calculation (Bazett) 453 Calculated P [place] 39 Calculated R [place] 40 Calculated T [place] 40 Impression NORMAL SINUS RHYTHM NORMAL ECG No results found for this or any previous visit (from the past 59832 hours). Spirometry Data No data to display Instructions Given to Patient: Instructions located in the after visit summary. Patient given verbal and written preop instructions and voices comprehension and compliance. SIGNATURE: Bela Banegas PA-C PATIENT NAME: Tiffani Allison DATE: 11/06/2024 TIME: 10:42 AM [facility]04-08-[facility] History and physical note* Bela Banegas PA-C - 11/06/2024 10:21 AM EDT Images from the original note were not included. [employer] [facility] Per[facility] Pre-Anesthesia Consultation [facility] HISTORY [...] scheduled for at the request of Dr. Khoa Silveira for consultation. My final recommendation will [...] fevers. Neurological: No history of TIA's, stroke, MACHINE TAPER tumor, impaired sensorium, hemiplegia, paraplegia orquadraplegia. No neurological symptoms or problems. Respiratory: No history of current cough or dyspnea, or pneumonia in the past 6 weeks. No history of respiratory/pulmonary symptoms or problems. Cardiovascular: No history of HTN requiring medication, no history of angina, CHF, CA, cardiac surgery or stents. Denies rest pain, [...] 406 QTC Calculation (Bazett) 453 Calculated P [place] 39 Calculated R [place] 40 Calculated T [place] 40 Impression NORMAL SINUS RHYTHM NORMAL ECG No results found for this or any previous visit (from the past 31829 hours). Spirometry Data No data to display Instructions Given to Patient: Instructions located in the after visit summary. Patient given verbal and written preop instructions and voices comprehension and compliance. SIGNATURE: Bela Banegas PA-C PATIENT NAME: Tiffani Allison DATE: 11/06/2024 TIME: 10:42 AM documented in this encounterLake County [facility]-03-[facility] History of Present illness Narrative* Ran Osullivan [...] (gastroesophageal reflux disease) Hiatal hernia HTN (hypertension) ([facility]) Hypothyroidism (acquired) ([facility]) Iron deficiency anemia Kidney stones Lumbosacral disc disease Migraines ([facility]) Polycystic ovary syndrome 2010 Seizure ([facility]) 2019 [...] Insecurity: No Food Insecurity (09/22/2023) Received from [facility], [facility] Hunger Screening Within the past 12 months [...] EMR Ran Osullivan DPM documented in this encounterHarry S. Truman Memorial Veterans' HospitalVjjymydgln02-78-0920 History of Present illness Narrative* Ran Osullivan [...] Hiatal hernia HTN (hypertension) (CMS/HCC) Hypothyroidism (acquired) (CMS/[facility]) Iron deficiency anemia Kidney stones Lumbosacral disc disease Migraines (CMS/HCC) Polycystic ovary syndrome 2010 Seizure ([facility] [...] Insecurity: No Food Insecurity (09/22/2023) [facility] Hunger Screening Within the past 12 [...] Ibuprofen Ran Osullivan DPM documented in this encounterHarry S. Truman Memorial Veterans' HospitalXfptjsmoqn64-47-7093 Telephone encounter Note* Telephone Encounter - Kristi Watts RN - 09/12/2024 12:54 PM EST [facility] SPECIAL[facility] COORDINATION TELEPHONE ENCOUNTER I spoke to pt about what is needed (EKG and LABS) to submit to insurance.Pt is working on that today. [facility]02-12-2025 Miscellaneous Notes* Telephone Encounter - Kristi Watts RN - 09/12/2024 12:54 PM EST [facility] SPECIALTY CARE COORDINATION TELEPHONE ENCOUNTER I spoke to pt about what is needed (EKG and LABS) to submit to insurance.Pt is working on that today. documented in this encounterLake County [facility]02-03-2025 History of Present illness Narrative* Ran Osullivan [...] (gastroesophageal reflux disease) Hiatal hernia HTN (hypertension) ([facility]) Hypothyroidism (acquired) ([facility]) Iron deficiency anemia Kidney stones Lumbosacral disc disease Migraines ([facility]) Polycystic ovary syndrome 2009 Seizure ([facility]) 2019 [...] Insecurity: No Food Insecurity (09/22/2023) Received from [facility], [facility] Hunger Screening Within the past 12 months [...] injection Ran Osullivan DPM documented in this encounterHarry S. Truman Memorial Veterans' HospitalFnzdunzxwd86-75-0182 NoteHNO ID: [id number] Author: CHADWICK HELM, PhD Service: ? Author Type: Psychologist Type: Progress Notes Filed: 08/24/2024 12:09 Note Text: [facility] Psychology- documentation Fax message received from NI Kim, pt's [employer] at [facility]. Pt diagnosed with Anxiety Disorder, unspecified (F41.9). [...] to complete additional preparation as outlined above. Chadwick Helm, Ph.D., Clinical PsychologistSelect Medical Specialty Hospital - [facility]01-17-2025 History of Present illness Narrative* REMY Feliz - 08/17/2024 10:00 AM EST Images from the original note were not included. Subjective Patient ID: Tiffani Allison is a 38 y.o. female. Chief Complaint: Pain of the Right Ankle Last Surgery: No surgery found Last Surgery Date: No surgery found HPI Tiffani bernabe has not improved she is still having [...] to your cam boot. documented in this encounterHarry S. Truman Memorial Veterans' HospitalGpcrcucoab79-74-0332 Instructions* Patient Instructions* REMY Feliz - 08/17/2024 10:00 AM EST We will have you follow-up for referral with Dr.Dolce to discuss the intermittent numbness of the [...] to your cam boot. documented in this encounterHarry S. Truman Memorial Veterans' HospitalLhvmwbhcjm67-76-9503 NoteHNO ID: [id number] Author: ?, ?, ? Service: ? Author Type: ? Type: Progress Notes Filed: 08/03/2024 14:49 Note Text: Sleep Study Check-In Documentation Date: August 03, 2024 Name: Tiffani Allison Comments: HST was returned in working order with all sleep questionnaires [facility] NoteHNO ID: [id number] Author: ?, ?, ? Service: ? Author Type: ? Type: Progress Notes Filed: 07/27/2024 15:50 Note Text: Nomad # [id number] , date shipped out 07-27-24 Fed Ex only Tracking mailout: [phone] [id number] Tracking return: [phone] [id number]12-10-2024 History of Present illness Narrative* REMY Feliz [...] with good arch support. documented in this [facility]12-10-2024 Instructions* Patient Instructions* REMY Feliz - 07/10/2024 [...] with good arch support. documented in this [facility]12-10-2024 NoteHNO ID: [id number] Author: ?, ?, ? Service: ? Author Type: ? Type: Progress Notes Filed: 07/10/2024 09:42 Note Text: Sleep Study Check-In Documentation Date: July 10, 2024 Name: Tiffani Allison Comments: HST was returned in work order. Study did not occur. The device is blank. Sent MYC Message. Monty MendezSelect Medical Specialty Hospital - [facility]12-10-2024 History of Present illness Narrative* Monty Mendez [...] and we will call reschedule. * Margo Liao - 07/02/2024 1:59 PM EST Nomad # [id number] , +GPS Date shipped out: 07/02/24 SENT FEDEX DELIVERY - FEDEX RETURN Tracking mailout: [phone] [id number] Tracking return: [phone] * Dany Mancini III, PhD - 07/02/2024 9:44 AM EST July 02, 2024 Standing PSG Orders signed in the last 90 days None Future PSG Orders signed in the last 90 days Ordered Auth. provider HOME SLEEP APNEA TEST (HSAT) [[id number]] 05/24/24 Renetta Ruano MD Assoc. diagnoses: Morbid [...] No CONSULT TO SLEEP MEDICINE - ADULT [[id number]] 05/24/24 Renetta Ruano MD Assoc. diagnoses: Morbid [...] from Renetta Goldberg MD , a [facility] Staff. Visit prep complete. Comments :No The sleep study is scheduled for 07-03-24. Insurance: Payor: / Plan: [facility] / Product Type: Indemnity / Payer/Plan Subscr Sex Relation Sub. Ins. ID Effective Group Num 1. - TR* TIFFANI ALLISON 1985 Female Self [id number] 08/01/23 [address] Margo Liao documented in this encounterLake County [facility] Hospital [facility]12-05-2024 NoteHNO ID: [id number] Author: ?, ?, ? Service: ? Author Type: ? Type: Progress Notes Filed: 07/10/2024 09:42 Note Text: Pt stated the device didn't work. Informed patient to send device back and we will call reschedule.[facility]12-02-2024 NoteHNO ID: [id number] Author: ?, ?, ? Service: ? Author Type: ? Type: Progress Notes Filed: 07/10/2024 09:42 Note Text: Nomad # [id number] , +GPS Date shipped out: 07/02/24 SENT FEDEX DELIVERY - FEDEX RETURN Tracking mailout: [phone] Tracking return: [phone] [id number]12-02-2024 NoteHNO ID: [id number] Author: DANY MANCINI III, PhD Service: ? Author Type: Physician Type: Progress Notes Filed: 07/10/2024 09:42 Note Text: July 02, 2024 Standing PSG Orders signed in the last 90 days None Future PSG Orders signed in the last 90 days Ordered Auth. provider HOME SLEEP APNEA TEST (HSAT) [[id number]] 05/24/24 Renetta Ruano MD Assoc. diagnoses: Morbid [...] No CONSULT TO SLEEP MEDICINE - ADULT [[id number]] 05/24/24 Renetta Ruano MD Assoc. diagnoses: Morbid [...] plan. Dany Mancini III, PhD 1:38 PM, 07/02/2024[facility]11-29-2024 NoteHNO ID: [id number] Author: ?, ?, ? Service: ? Author Type: ? Type: Progress Notes Filed: 07/10/2024 09:42 Note Text: June 29, 2024 An order has been received for Home Sleep Apnea Test (HSAT) from Renetta Goldberg MD , a [facility] Staff. Visit prep complete. Comments :No The sleep study is scheduled for 07-03-24. Insurance: Payor: [employer] / Plan: [employer] [facility] / Product Type: Indemnity / Payer/Plan Subscr Sex Relation Sub. Ins. ID Effective Group Num 1. - TR* TIFFANI ALLISON 1985 Female Self [id number] [birth year]23 [address] [facility]-2024 NoteHNO ID: [id number] Author: CHADWICK HELM, PhD Service: ? Author Type: Psychologist Type: Progress Notes Filed: 06/21/2024 14:47 Note Text: [facility] METABOLIC/BARIATRIC SURGERY (MBS) BEHAVIORAL HEALTH EVALUATION Patient name: Tiffani Allison Date of service: June 21, 2024 Time of service: 1:00pm - 2:00pm Cost center: [facility] CPT code(s): 05096 Psychiatric diagnostic evaluation - 41577 Brief Emotional/Behavioral Assessment with scoring/documentation (2 units) [...] a copy of the consent form via [employer]. Prior to initiating the virtual visit, I communicated my name and active licensure. The patient's identity (name, ) and physical location were verified. Patient was encouraged to move to a private space free of distractions. Either the patient or their legal client support representative has been informed of the risks [...] contact patient at their preferred phone number ([phone]) or via email ([email or web address]). Plan in case of emergency: Go to emergency room or call 911 Closest emergency room: [facility] Extended Emergency Contact Information Primary Emergency Contact: Jesus Allison Address: [address] [place] [address] Mobile Relation: Spouse Platform: [employer] for [employer] [facility] Address of patient during visit: home ([address] [place] [address]) Collateral parties present: none IDENTIFYING INFORMATION Ms. Tiffani Allison is a 38 year old, female who was referred by Dr. Grissom. She is seeking revision (sleeve to bypass) for Class III obesity and hiatal hernia. Initial gastric sleeve surgery in July 2017 (in [place]). MOTIVATION FOR SURGERY / UNDERSTANDING OF PROCEDURE [...] MEALS melatonin 1 m (more content not included)...[facility]11-20-2024 History of Present illness Narrative* REMY Feliz [...] she did go get imaging done at [facility] and has brought thoseimages with her. She does take a baby aspirin a day she states that she does not have history of DVT but is concerned with the right lower calf swelling and pain with mobility. She denies fever chills shortness of breath or chest pain. She is a ejnc-nm-zxgj mom PAST MEDICAL HISTORY: Past Medical History: [...] with food. REMY Feliz documented in this [facility]11-20-2024 Instructions* Patient Instructions* REMY Feliz - 06/20/2024 [...] always take with food. documented in this [facility]11-19-2024 Evaluation note* Diagnosis Onset Date Resolution Status Admit Date Anxiety acuteNovember 2023 10:02amDepressionacuteNovember 2023 10:02am AnxietyacuteJanuary 2024 10:51amDepressionacuteJanuary 2024 10:51am IFG (impaired fasting glucose)acuteJanuary 2024 10:51amObesity, Class III, BMI 40-49.9 (morbid obesity)acuteJanuary 2024 10:51amAnxietyacuteFebruary 2024 11:18amDepressionacuteFebruary 2024 11:18amIFG (impaired fasting glucose)acuteFebruary 2024 11:18am [facility] Work Phone: 1(834) 232-760311-15-2024 NoteHNO ID: [id number] Author: LELO IRENE RT(R) Service: ? Author Type: Technologist [...] PATIENT PRESENTS WITH AN IMPLANTABLE OR ATTACHED SECURITIES CONSULTANT: No RADIOLOGY DEPARTMENT: General X-ray: Exam(s) Completed: Chest X-Ray PERIPHERAL IV DATA: Not applicable SIGNED BY: RT Vanna(R) June 15, 2024 12:23 [facility]11-14-2024 NoteHNO ID: [id number] Author: CHADWICK HELM, PhD Service: ? Author Type: Psychologist Type: Progress Notes Filed: 06/14/2024 16:11 Note Text: [facility] Bariatric Behavioral Services Progress Note June 14, 2024 Patient did not check in for scheduled appointment. This visit will be marked as a no-show. Chadwick Helm, Ph.D. Clinical PsychologistSelect Medical Specialty Hospital - [facility]11-07-2024 Instructions* Patient Instructions* Leah Zuniga, VALENTINO - 06/07/2024 1:53 PM EST Nutrition Intervention 06/07/2024: Modify type and amount of foods consumed for meals and snacks 1. Read Nutritional Guidelines Section of Your Guide to Surgery by next session https://[email or web address].[email or web address]/-/scassets/files/org/[email or web address]/guides/[email or web address]?la=e n 2. Do not skip meals. 3. [...] (16 g protein), Owyn (20 g protein), [place] Breakfast Essentials Light Start mixed with fat [...] Continue taking daily bariatric vitamins/minerals and include 1209-5217 mg calcium citrate daily(separate 2 hours from iron, and take each 500-600 mg dose 4 hours apart) Here are a few options to consider: - Bariatric Fusion: 4 Complete Multivitamin chewables per day OR 1 Multivitamin capsule and 2586-5289 mg calcium citrate per day OR 2 Multivitamin soft chews per day + 3 calcium citrate soft chews + 1 iron soft chew per day www.bariatricfusion.com - Bariatric Choice: 4 All-in-One Bariatric Multivitamin chewables per day OR 1 Once Daily BariatricMultivitamin capsule and 8454-3169 mg calcium citrate per day www.bariatricchoice.com - Bariatric Pal: 4 All-in-One Multivitamin chewables per day OR 1 Multivitamin One (chewable or capsule) and 0800-7773 mg calcium citrate per day www.[employer].bariatricpal.CondoGala/collections/bariatric-vitamins - Bariatric Advantage: 1 Ultra Solo multivitamin w/ iron (chewable or capsule) OR 2 chewable Advanced Multi EA w/ iron and 7787-7566 mg calcium citrate per day OR 2 Multi Chewy Bites and 4524-6755 mgcalcium citrate and 45-60 mg iron per day www.bariatricadvantage.com - Procare Health: 1 Bariatric Multivitamin w/ iron (capsule or chewable) and 7460-2353 mg calcium citrate per day www.MedCenterDisplay - Celebrate: 2 Multi-Complete (chewable or capsule) OR 1 CelebrateOne Multivitamin capsule and 8885-0974 mg calcium citrate per day OR 2 Multivitamin soft chews + 3 calcium citrate soft chews + 1 iron soft chew per day https://celebrateMove Loots.CondoGala - Barilife: 1 Just One Bariatric Multivitamin w/ iron (chewable or capsule) and 1106-0843 mg calcium citrate per day www.bariGlance App.CondoGala - Barimelts: 2 Multivitamin w/ iron tablets and 4876-6388 mg calcium citrate per day www.barimelts.CondoGala Pre-op goal weight: 292 pounds Protein needs: 95 gm per day Navigator: [email or web address] Please follow the below link to join our Navigation Welcome and Next Steps Meeting. Meetings are held weekly on Tuesdays from 12:00-1:00 pm. [email or web address] m Please call [phone], option 5. Leave a message for the [...] Control shakes per day 5 packets of [place] Breakfast Essentials Light Start mixed with fat [...] 2 weeks pre op documented in this encounterL[facility]11-07-2024 History of Present illness Narrative* Leah Zuniga RD - 06/07/2024 1:15 PM EST [facility] Nutrition Therapy: Virtual Consult - Initial Assessment I have communicated my name and active licensure. The patient s identity and physical location wereverified at the time of this visit. Either the patient or their legal client support representative has been informed of the risks [...] Your Guide to Surgery by next session https://[email or web address]/-/scassets/files/org/[email or web address]/guides/[email or web address]?la=e n 2. Do not skip meals. 3. [...] (16 g protein), Owyn (20 g protein), [place] Breakfast Essentials Light Start mixed with fat [...] Continue taking daily bariatric vitamins/minerals and include 6225-7360 mg calcium citrate daily(separate 2 hours from iron, and take each 500-600 mg dose 4 hours apart) Here are a few options to consider: - Bariatric Fusion: 4 Complete Multivitamin chewables per day OR 1 Multivitamin capsule and 6767-4816 mg calcium citrate per day OR 2 Multivitamin soft chews per day + 3 calcium citrate soft chews + 1 iron soft chew per day www.bariatricfusion.com - Bariatric Choice: 4 All-in-One Bariatric Multivitamin chewables per day OR 1 Once Daily BariatricMultivitamin capsule and 6932-8381 mg calcium citrate per day www.bariatricchoice.com - Bariatric Pal: 4 All-in-One Multivitamin chewables per day OR 1 Multivitamin One (chewable or capsule) and 5194-6123 mg calcium citrate per day www.[employer].bariatricpal.com/collections/bariatric-vitamins - Bariatric Advantage: 1 Ultra Solo multivitamin w/ iron (chewable or capsule) OR 2 chewable Advanced Multi EA w/ iron and 1443-5663 mg calcium citrate per day OR 2 Multi Chewy Bites and 3830-5838 mgcalcium citrate and 45-60 mg iron per day www.bariatricadvantage.com - Procare Health: 1 Bariatric Multivitamin w/ iron (capsule or chewable) and 6824-4347 mg calcium citrate per day www.NowSpots.CondoGala - Celebrate: 2 Multi-Complete (chewable or capsule) OR 1 CelebrateOne Multivitamin capsule and 6336-8989 mg calcium citrate per day OR 2 Multivitamin soft chews + 3 calcium citrate soft chews + 1 iron soft chew per day https://IntentebrateMove Loots.CondoGala - Barilife: 1 Just One Bariatric Multivitamin w/ iron (chewable or capsule) and 8231-9473 mg calcium citrate per day www.bariGlance App.CondoGala - Barimelts: 2 Multivitamin w/ iron tablets and 6944-9426 mg calcium citrate per day www.barimelts.CondoGala Pre-op goal weight: 292 pounds Protein needs: 95 gm per day Navigator: [email or web address] Please follow the below link to join our Navigation Welcome and Next Steps Meeting. Meetings are held weekly on Tuesdays from 12:00-1:00 pm. [email or web address] m Please call [phone], option 5. Leave a message for the [...] Control shakes per day 5 packets of [place] Breakfast Essentials Light Start mixed with fat [...] exercise - limited by large hernia. ? Weiner body weight: 174 lbs Excess body weight: [...] Type: Initial Assess/15 min 2 units SIGNATURE: Leah Zuniga RD PATIENT NAME: Tiffani Allison DATE: June 07, 2024 TIME: 4:01 PM documented in this encounterLake County [facility]11-07-2024 NoteHNO ID: [id number] Author: LEAH ZUNIGA RD Service: ? Author Type: Registered Dietitian Type: Progress Notes Filed: 06/07/2024 13:53 Note Text: [facility] Nutrition Therapy: Virtual Consult - Initial Assessment I have communicated my name and active licensure. The patient?s identity and physical location were verified at the time of this visit. Either the patient or their legal client support representative has been informed of the risks [...] of Your Guide to Surgery by next sessionhttps://my.[email or web address]/-/scassets/files/org/bariatric/guides/bmig [email or web address]-[email or web address]?la=en 2. Do not skip meals. [...] (16 g protein), Owyn (20 g protein), [place] Breakfast Essentials Light Start mixed with fat [...] Continue taking daily bariatric vitamins/minerals and include 5324-9083 mg calcium citrate daily (separate 2 hours from iron, and take each 500-600 mg dose 4 hours apart) Here are a few options to consider: - Bariatric Fusion: 4 Complete Multivitamin chewables per day OR 1 Multivitamin capsule and 2745-3872 mg calcium citrate per day OR 2 Multivitamin soft chews per day + 3 calcium citrate soft chews + 1 iron soft chew per day www.bariatricfusion.com - Bariatric Choice: 4 All-in-One Bariatric Multivitamin chewables per day OR 1 Once Daily Bariatric Multivitamin capsule and 2891-5758 mg calcium citrate per day www.bariatricchoice.com - Bariatric Pal: 4 All-in-One Multivitamin chewables per day OR 1 Multivitamin One (chewable or capsule) and 6845-0258 mg calcium citrate per day www.[employer].bariatricpal.com/collections/bariatric-vitamins - Bariatric Advantage: 1 Ultra Solo multivitamin w/ iron (chewable or capsule) OR 2 chewable Advanced Multi EA w/ iron and 9963-7360 mg calcium citrate per day OR 2 Multi Chewy Bites and 6796-9988 mg calcium citrate and 45-60 mg iron per day www.bariatricadvantage.CondoGala - Procare Health: 1 Bariatric Multivitamin w/ iron (capsule or chewable) and 4401-6041 mg calcium citrate per day www.MedCenterDisplay - Celebrate: 2 Multi-Complete (chewable or capsule) OR 1 CelebrateOne Multivitamin capsule and 6892-8303 mg calcium citrate per day OR 2 Multivitamin soft chews + 3 calcium citrate soft chews + 1 iron soft chew per day https://[employer].CondoGala - Barilife: 1 Just One Bariatric Multivitamin w/ iron (chewable or capsule) and 9173-6891 mg calcium citrate per day www.bariGlance App.com - Barimelts: 2 Multivitamin w/ iron tablets and [id number] mg calcium citrate per day [email or web address] Pre-op goal weight: 292 pounds Protein needs: 95 gm per day Navigator: [email or web address] Please follow the below link to join our Navigation Welcome and Next Steps Meeting. Meetings are held weekly on Tuesdays from 12:00-1:00 pm. [email or web address] Please call [phone], option 5. Leave a message for the navigation team when you are finished with all clearances (nutrition, psychology, medical, surgeon) PRE/POST-OP Instructions: 1. Start the full (more content not included)...[facility] 05-24-2024 Instructions* Patient Instructions* Renetta Ruano MD - 05/24/2024 2:27 PM EDT INSTRUCTIONS: 1) Please contact me (Dr. Ruano) if you have not heard about your test results within a few days after you had them done. Thank you: Contact information: [facility]ariat[facility] [place] [address]/Attention: Dr. Ruano [address] [place] [address] 2) Please check with your insurance company regarding cost/coverage of any tests ordered prior to having them completed. Jacquelin Allison , Thank you for completing your visit today and we welcome you to the surgical program. We are sure that you will still have some additional questions and encourage you to reach out to your care provider via reKode Education OR your Patient Navigator. The contact information for each Navigator is listed below: Bipin Muñoz and Talia: [email or web address] Bipin Hatch, Shakila, and Hong: [email or web address] Bhupendra Santos, Wilmer, and Pedro: [email or web address] Tyrell Pena, and Javier: Delores Ramos [email or web address] Additionally, you may find many of the [...] free to ask for a hard copy. [email or web address] Once you complete all of the requirements (testing, consultations, diet, etc) from each provider, please call [phone] and select option #5 to initiate insurance approval. Also, if you have any questions along the way, we encourage you to join our weekly Navigation webinar every Tuesday from 12:00 pm - 1:00 pm. This webinar will give you an opportunity to chat with your patient navigator and learn about your specific program requirements. The link for this webinar isbelow: [email or web address] Please note scheduling information It is important to keep track of your scheduled appointments to ensure successful completion of oursurgical program. Any missed appointments can further delay your pre-surgical work-up. [facility] does offer an opt-in option for getting text message appointment reminders. Please follow the link below if you would like to opt into this service. [email or web address] As part of your surgical work up, [...] these tests. You may call your local [facility] to get an appointment. - Lab work- No appointment is needed for this, you may complete at any [facility] Laboratory.These are usually fasting labs, please be sure to fast (only water permitted) for 10-12 hours priorto the test. -Sleep Study- Please call [phone] or [phone] to get this appointment set up. -Sleep Medicine Consult- (Only needed if sleep study confirms sleep apnea) Please call [phone] to schedule an appointment. Any testing that is completed outside of [facility] will need faxed to [phone]. We look forward to working with you on this journey, Renetta Ruano MD documented in this encounterLake [facility]10-24-[facility] History of Present illness Narrative* Renetta Ruano MD - 05/24/2024 2:15 PM EDT I have communicated my name and active licensure. The patient's identity and physical location wereverified at the time of this visit. 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 documented in this encounterLake County [facility] Hospital [facility]10-24-2024 NoteHNO ID: [id number] Author: RENETTA RUANO MD Service: ? Author Type: Physician Type: Progress Notes Filed: 09/21/2024 09:27 Note Text: I have communicated my name and active licensure. The patient's identity and physical location were verified at the time of this visit. 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 [facility]10-24-2024 Evaluation note* Diagnosis Onset Date Resolution Status Admit Date Anxiety acuteOctober 2023 9:57amDepressionacuteOctober 2023 9:57amRight ankle injuryacuteOctober 2023 9:57amRight ankle painacuteOctober 2023 9:57amAnxietyacuteNovember 2023 10:02amDepressionacuteNovember 2023 10:02amAnxietyacuteJanuary 2024 10:51amDepressionacuteJanuary 2024 10:51amObesity, Class III, BMI 40-49.9 (morbid obesity)acuteJanuary 2024 10:51[facility] Work Phone: [phone] Telephone encounter Note* Telephone Encounter - Kristi Watts RN - 05/17/2024 10:14 AM EDT BMI SPECIALTY CARE COORDINATION TELEPHONE ENCOUNTER LVM with call back number to tell pt next steps about enrolling in our program. [facility]10-17-2024 Miscellaneous Notes* Telephone Encounter - Kristi Watts RN - 05/17/2024 10:14 AM EDT BMI SPECIALTY CARE COORDINATION TELEPHONE ENCOUNTER LVM with call back number to tell pt next steps about enrolling in our program. documented in this encounterLake County [facility]10-14-2024 NoteHNO ID: [id number] Author: AYSE GRISSOM MD Service: ? Author Type: Physician Type: Progress Notes Filed: 05/14/2024 15:05 Note Text: BARIATRIC SURGERY PROGRESS VISIT NOTE SERVICE DATE: 05/14/2024 This visit was performed virtually using Zoom technology due to the COVID-19 epidemic as an effort to protect patients and minimize exposure. Patient gave me the verbal consent for the telehealth visit. SUBJECTIVE: Progress visit Tiffnai Allison is a 38 year old female [...] TAR, versus TAR only and consideration for zqauqs-cu-wfunqa conversion later down the line. She will consider her options and let us know. SIGNATURE: Ayse Grissom MD PATIENT NAME: Tiffani Allison Advanced Laparoscopic AND Bariatric Surgery DATE: May 14, 2024 CSN: [id number] TIME: 2:48 PM 10min spent with patient.[facility]10-14-2024 History of Present illness Narrative* Ayse Grissom MD - 05/14/2024 2:40 PM EDT [...] TAR, versus TAR only and consideration for nwxrqo-il-tzplia conversion later down the line. She will consider her options and let us know. SIGNATURE: Ayse Grissom MD PATIENT NAME: Tiffani Allison Advanced Laparoscopic & Bariatric Surgery DATE: May 14, 2024 CSN: [id number] TIME: 2:48 PM 10min spent with patient. documented in this encounterLake County [facility]10-10-2024 Evaluation note* Diagnosis Onset Date Resolution Status Admit Date HTN (hypertension) acuteOctober 2023 10:43amInappropriate sinus tachycardiaacuteOctober 2023 10:43amPalpitationsnoneactiveOctober 2023 10:43amAnxietyacuteOctober 2023 9:57amDepressionacuteOctober 2023 9:57amRight ankle injuryacute May 24, 2024 9:57amRight ankle painacuteOctober 2023 9:57amAnxiety acuteNovember 2023 10:02amDepressionacuteNovember 2023 10:02am [facility] Work Phone: 1(286) 677-603009-24-2024 NoteHNO ID: [id number] Author: AYSE GRISSOM MD Service: ? Author Type: Physician [...] 1 tablet by mouth (more content not included)...[facility]09-24-2024 History of Present illness Narrative* Ayse Grissom MD - 04/24/2024 9:34 AM EDT [...] a lowest weight of 184lbs achieved in 2018. Patient says she began to re-gain weight [...] snoring/EARNEST Cardiovascular: + HTN, no CHF or CA. GI: +Abdominal pain in middle of lower [...] symptoms. Discussed other option of conversion to Maria Antonia-en-Y gastric bypass could help improve GERD symptoms [...] repair of incisional and hiatal hernias. SIGNATURE: Ayse Grissom MD PATIENT NAME: Tiffani Allison DATE: April 24, 2024 TIME: 9:36 AM Ayse Grissom MD Medical Decision Making: Problems: Moderate: 2+ stable chronic illnesses Data: Unique source(s) for external note(s) reviewed: 3+ Independent interpretation of test from other physician/QHCP Risk: High: Decision on elective major surgery w/ risk factors Medical Decision Making Level: 5 - High documented in this encounterLake County [facility]09-18-2024 Telephone encounter Note * Telephone Encounter - Kristi Watts RN - 04/18/2024 10:17 AM EDT BMI SPECIALTY CARE COORDINATION TELEPHONE ENCOUNTER LVM with call back number for pt to make an appt with Dr. Grissom. [facility]09-18-2024 Miscellaneous Notes* Telephone Encounter - Kristi Watts RN - 04/18/2024 10:17 AM EDT [facility] SPECIALTY CARE COORDINATION TELEPHONE ENCOUNTER LVM with call back number for pt to make an appt with Dr. Grissom. documented in this encounterLake County [facility]09-16-2024 NoteHNO ID: [id number] Author: ROCIO JEFF MD Service: ? Author [...] Rocio Jeff MD April 16, 2024 4:02 [facility]09-16-2024 History of Present illness Narrative * Rocio [...] Ran Padron - 04/16/2024 3:50 PM EDT [facility] Abdominal [facility] Health - HISTORY AND PHYSICAL Chief Complaint: [...] Low transverse 2009, 2021, 2023 Lap rocío 2005 Sleeve gastrectomy 2016 No past medical history [...] repair Ran Padron MS4 documented in this encounterLake County [facility]09-16-2024 NoteHNO ID: [id number] Author: ?, ?, ? Service: ? Author Type: ? Type: Progress Notes Filed: 04/23/2024 08:59 Note Text: [facility] Abdominal [facility] Health - HISTORY AND PHYSICAL Chief Complaint: [...] noted Assessment: Tiffani Boston (more content not included)...[facility]09-16-2024 Nurse Note* Sudarshan Russell MA - 04/16/2024 2:36 PM EDT What is the reason for your visit today? Consult Who is your referring physician? Dr. Jeff Are you having poor oral intake? NO Have you had unintentional weight loss of 15 lbs/7 Kg in the last 3-6 months? NO Bowels: regular Wound: clean & dry Temperature: No Drains: No [facility]09-16-2024 Nurse Note* Sudarshan Russell MA - 04/16/2024 2:36 PM EDT What is the reason for your visit today? Consult Who is your referring physician? Dr. Jeff Are you having poor oral intake? NO Have you had unintentional weight loss of 15 lbs/7 Kg in the last 3-6 months? NO Bowels: regular Wound: clean & dry Temperature: No Drains: No documented in this encounterLake County [facility]09-11-2024 Telephone encounter Note * Telephone Encounter - Javier Kitchen LPN - 04/11/2024 4:03 PM EDT Contacted patient, verified name and . Advised of the following Abdominal Surgeries performed and patient had Imaging performed from [facility] 03/29/24 and to bring Imaging with her to appointment. 2018--Gastric Bypass ( [facility] [place]) 2017--Appendectomy ([place]; [facility]) Advised patient will contact to obtain Operative Reports and patient to be sent MyChart Message to contact if any needs or concerns arise, patient acknowledged and verbalized understanding. Javier Kitchen LPN [facility]09-11-2024 Miscellaneous Notes* Telephone Encounter - Javier Kitchen LPN - 04/11/2024 4:03 PM EDT Contacted patient, verified name and . Advised of the following Abdominal Surgeries performed and patient had Imaging performed from [facility] 03/29/24 and to bring Imaging with her to appointment. 2018--Gastric Bypass ( [facility] [place]) 2017--Appendectomy ([place]; [facility]) Advised patient will contact to obtain Operative Reports and patient to be sent Antuithart Message to contact if any needs or concerns arise, patient acknowledged and verbalized understanding. Javier Kitchen LPN documented in this encounterLake County [facility]08-20-2024 NoteHNO ID: [id number] Author: LEAH CONTRERAS APRN.AUTOMATIC STEEL [employer] ADJUSTER Service: ? 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 Quique Contreras APRN.[facility] March 20, 2024 2:38 PM Allergies As of Date: 03/20/2024 (Not on File) Date Reviewed: Never Reviewed Problem List As Of Date: 03/20/2024 (None) Encounter Status:Closed by LEAH CONTRERAS on 03/20/24[facility] 02-[facility]2024 Hospital Discharge instructionsAmbulatory Orders* Referral to General Surgery Time Frame: 02/28/24, Location: [facility] Work Phone: 1(617) 863-346004-03-2024 History of Present illness Narrative* Héctor Aguilar [...] Depression Hypertension Hypothyroidism Kidney stones Migraines Seizure ([facility]) REVIEW OF SYSTEMS: Head and Neck: [...] for allowing me to participate in [facility]. If there are any questions, please do not hesitate to call me. Sincerely, HÉCTOR AGUILAR MD Video Visit via Real-time Synchronous Audiovisual Provider Location: [facility] AT [address] [id number] Patient Location: Patient's home Patient Location Maintenance Manager: None Video Visit Consent Statement: I discussed [...] that there are some limitations compared to fmhs-qd-xpnh evaluations. We elected to proceed. documented in this encounterOhioHealth Mansfield Hospital03-19-2024 History of Present illness Narrative* Eddie Chavez MD - 10/18/2023 2:24 PM EDT Maternal- Medicine Patient had follow-up telehealth visit scheduled. At a satellite office she had ultrasound which will be read by 1 of my colleagues. The patient did not keep her appointment (we believe that she was uncertain she had a visit). Our office will reach out in arrange an un linked telehealth rescheduledvisit. Eddie Chavez MD Professor, [facility] Maternal Medicine (we called the patient ourselves and were not able to successfully connect with her) documented in this encounterOhioHealth Mansfield Hospital02-22-2024 History of Present illness Narrative* Rossy [...] Yes Have you been seen here at [facility] in a previous ? No Recent ER visits or hospitalizations? No Bring blood sugar log or meter with you today? (Please bring them with you for every visit at [facility]) N/A Traveled outside the country [...] and the other consultants, we search on Searchmetrics and all the available care everywhere epic I did review all the imaging studies of the patient available on EMR, ordered by the primary care physician and the other clinical consultant HABITS: Patient activity no restrictions, diet [...] for completion of targeted anatomy at our [facility] site. 5. Serial growth [...] patient is in complete care of her hearing therapist. Patient does have ultrasound office visit scheduled with us Thank you for allowing me to participate in Tiffani Allison . If there any questions please do not hesitate to contact us. Sincerely, HÉCTOR AGUILAR MD documented in this encounterBucyrus Community HospitalCorsair [facility] [id number] History of Present illness Narrative* REMY Valdes [...] hour glucose order to have [facility]. Follow Up: Patient is [...] behalf of: REMY Valdes documented in this encounterHarry S. Truman Memorial Veterans' [id number] Miscellaneous Notes* Telephone Encounter - Janae Jiménez - 08/19/2023 10:42 AM EST LEFT A MESSAGE TO SCHEDULE USN AND CONSULT. 08/19/2023 1043 documented in this encounterOhioHealth Mansfield Hospital01-19-2024 Telephone encounter Note* Telephone Encounter - Janae Jiménez - 08/19/2023 10:42 AM EST LEFT A MESSAGE TO SCHEDULE USN AND CONSULT. 08/19/2023 1043 [facility]. 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 Calcium-fortified means [...] ?Spinach (cooked), rhubarb, beets, sweet potatoes, and Comoran chard. ?Peanuts. ?Potato chips, thai fries, and baked potatoes with skin on. ?Nuts and nut products. ?Chocolate. If you regularly take a diuretic medicine, make sure to eat at least 1 or 2 servings of fruits or vegetables that are high in potassium each day. These include: ?Avocado. ?Banana. ?[place], prune, carrot, or tomato juice. ?Baked potato. [...] magnesium, fish oil, or vitamin B6. Take ifmd-jre-lfeywvv and prescription medicines only as told by [...] Casseroles. Pizza. Lasagna. Frozen meals. Potato chips. Vincentian fries. The items listed above may not [...] provider. Document Revised: 03/29/2022 Document Reviewed: 03/29/2022 [employer] Patient Education 2022 [employer]. Follow Up Care 12/28/2022 12:57:40 With:Aram RUSSELL, Con Burdick, URL, URO Address: When:Within 6 Month(s) Comments:irasema FALK & YAMILETH [facility] 06-19-2023 Evaluation note* Encounter Date Diagnosis Assessment Notes Treatment Notes Treatment Clinical Notes Dec, Iron deficiency anemia (ICD-10 - D50.9) Will proceed with EGD Will request recent lab work done at [facility]. Dec,ERD (gastroesophageal reflux disease) (ICD-10 - K21.9)Patient to continue on Omeprazole 40mg Dec,iarrhea (ICD-10 - R19.7)Will proceed with Colonoscopy. [employer] Other Evaluation + Plan note Future Appointments Appointment Date:08/03/2023 10:00:00 AM Scheduled Provider:Con Chiu MD Location:[facility] Appointment Type:URO Office Visit [facility] evaluation + Plan note Future Appointments Appointment Date:08/03/2023 10:00:00 AM Scheduled Provider:Con Chiu MD Location:[facility] Appointment Type:URO Office Visit Diagnostic Tests Pending * Calculi Analysis [facility] Diagnosis Onset Date Resolution Status Iron deficiency anemia [facility] Work Phone: Evaluation note* Diagnosis Second trimester state, incidental Diabetes mellitus screening Screening for diabetes mellitus 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) Hypothyroidism, unspecified type ([facility]) documented in this encounter [facility] noteNo assessment information availableKettering Health [facility] Work Phone: Evaluation note* Diagnosis Onset Date Resolution Status Anxiety acuteDepressionacuteDry scalpacuteHerniaacuteHypothyroidacuteIron deficiency anemiaacuteTachycardiaacute [facility] Work Phone: Evaluation note* Diagnosis Gastroesophageal reflux disease, unspecified whether esophagitis present- Primary Incisional hernia, without obstruction or gangrene Incisional hernia without mention of obstruction or gangrene documented in this encounter [facility]* Diagnosis Gastroesophageal reflux disease, unspecified whether esophagitis present documented in this encounter [facility] note* Diagnosis Onset Date Resolution Status Anxiety acuteDepressionacuteDry scalpacuteGERD (gastroesophageal reflux disease)acute HerniaacuteHTN (hypertension)acuteHypothyroidacuteIron deficiency anemiaacute Tachycardiaacute [facility] Work Phone: Evaluation note* Diagnosis Onset Date Resolution Status Anxiety acuteDepressionacuteDry scalpacuteGERD (gastroesophageal reflux disease)acute HerniaacuteHTN (hypertension)acuteHypothyroidacuteIron deficiency anemiaacute TachycardiaacuteHTN (hypertension)acuteInappropriate sinus tachycardiaacute Palpitationsnoneactive [facility] Work Phone: Evaluation note* Diagnosis Body mass index 40.0-44.9, adult ([facility])- Primary Body Mass Index 40.0-44.9, adult documented in this encounter [facility] note* Diagnosis Onset Date Resolution Status Anxiety acuteDepressionacuteDry scalpacuteGERD (gastroesophageal reflux disease)acute HerniaacuteHTN (hypertension)acuteHypothyroidacuteIron deficiency anemiaacute TachycardiaacuteHTN (hypertension)acuteInappropriate sinus tachycardiaacute PalpitationsnoneactiveAnxietyacuteDepressionacuteRight ankle injuryacuteRight ankle painacute [facility] Work Phone: Evaluation note* Diagnosis Morbid obesity due to excess calories (HCC)- Primary S/P bariatric surgery Bariatric surgery status Preoperative testing Preoperative examination, unspecified Snoring Other dyspnea and respiratory abnormality Other fatigue Morbid obesity with BMI of 40.0-44.9, adult (HCC) Morbid obesity documented in this encounter [facility]* Diagnosis Preoperative examination- Primary Preoperative examination, unspecified documented in this encounter [facility]* Diagnosis H/O gastric sleeve- Primary Obesity, Class III, BMI 40-49.9 (morbid obesity) (HCC) Morbid obesity Dietary counseling and surveillance Dietary surveillance and counseling documented in this encounter [facility] note* Diagnosis Morbid obesity due to excess calories (HCC) S/P bariatric surgery Bariatric surgery status Preoperative testing Preoperative examination, unspecified Snoring Other dyspnea and respiratory abnormality Other fatigue Morbid obesity with BMI of 40.0-44.9, adult (HCC) Morbid obesity [facility]* Diagnosis Pain and swelling of right lower leg- Primary Ankle joint instability, right Pain of right calf [facility] Diagnosis 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 Moderate right ankle sprain, sequela [facility] Diagnosis Ankle joint instability, right- Primary Sinus tarsi syndrome of right ankle Posterior tibial tendinitis of right lower extremity [facility] Diagnosis Nicotine dependence in remission, unspecified nicotine product type- Primary [facility] Diagnosis Other specified disorders of synovium, right ankle and foot- Primary Sinus tarsitis of right foot documented in this encounter [facility]* Diagnosis Essential hypertension affecting in second trimester- Primary [facility] Diagnosis Pre-existing essential hypertension during in second trimester- Primary Advanced maternal age in multigravida, second trimester Hypothyroid in , antepartum [facility] Diagnosis Essential hypertension affecting in second trimester- Primary [facility]* Diagnosis Sinus tarsitis of right foot- Primary Other specified disorders of synovium, right ankle and foot documented in this encounter [facility]* Diagnosis Morbid obesity (HCC)- Primary Morbid obesity Hiatal hernia Diaphragmatic hernia without mention of obstruction or gangrene Preoperative examination Preoperative examination, unspecified documented in this encounter [facility] note* Diagnosis Preoperative examination- Primary Preoperative examination, unspecified Hiatal hernia Diaphragmatic hernia without mention of obstruction or gangrene Morbid obesity (HCC) Morbid obesity [facility] Diagnosis Other specified disorders of synovium, right ankle and foot- Primary Sinus tarsitis of right foot Contracture of left ankle [facility] Diagnosis Preoperative examination- Primary Preoperative examination, [...] obesity * Assessment & Plan Note - Bela Banegas PA-C - 11/06/2024 11:44 AM EDT Associated Problem(s): Class 3 severe obesity without serious comorbidity with body mass index (BMI) of 40.0 to 44.9 in adult (HCC) Body mass index is 45.52 kg/m . * Assessment & Plan Note - Bela Banegas PA-C - 11/06/2024 10:46 AM EDT Associated Problem(s): Psoriatic arthritis (HCC) Managed with NSAIDS * Assessment & Plan Note - Bela Banegas PA-C - 11/06/2024 10:46 AM EDT Associated Problem(s): Insulin resistance Managed with Metformin * Assessment & Plan Note - Bela Banegas PA-C - 11/06/2024 10:45 AM EDT Associated Problem(s): Iron deficiency anemia Hemoglobin (g/dL) Date Value 11/06/2024 14.5 Hematocrit (%) Date Value 11/06/2024 43.4 WBC (k/uL) Date Value 11/06/2024 11.25 Stable * Assessment & Plan Note - Bela Banegas PA-C - 11/06/2024 10:44 AM EDT Associated Problem(s): Inappropriate sinus tachycardia (HCC) Managed with metoprolol * Assessment & Plan Note - Bela Banegas PA-C - 11/06/2024 10:44 AM EDT Associated Problem(s): Hypothyroidism Stable on Synthroid * Assessment & Plan Note - Bela Banegas PA-C - 11/06/2024 10:43 AM EDT Associated Problem(s): GERD (gastroesophageal reflux disease) Symptoms controlled with PPI * Assessment & Plan Note - Bela Banegas PA-C - 11/06/2024 10:43 AM EDT Associated Problem(s): Hypertension Stable, complaint on AMLODIPINE 10 MG TABLET Take 10 mg by mouth. METOPROLOL SUCCINATE ER 100 MG TABLET,EXTENDED RELEASE 24 HR Take 100 mg by mouth. Follows with PCP. Last 3 Encounter BP Readings: Date: BP: 11/06/2024 139/88 04/24/2024 144/82 04/16/2024 149/79 documented in this encounter [facility] note* Diagnosis Preoperative examination- Primary Preoperative [...] (HCC) Morbid obesity documented in this encounter [facility] note* Diagnosis Preoperative examination- Primary Preoperative [...] Other postprocedural status documented in this encounter [facility] note* Diagnosis Preoperative examination- Primary Preoperative [...] acute postoperative pain [facility] Diagnosis Preoperative examination- Primary Preoperative [...] aftercare following surgery [facility]* Diagnosis Preoperative examination- Primary Preoperative [...] acute postoperative pain documented in this encounter [facility] note* Diagnosis Preoperative examination- Primary Preoperative [...] aftercare following surgery documented in this encounter [facility] note* Diagnosis Onset Date Resolution Status Admit Date Abdominal pain acuteMay 2024 10:59amH/O gastric bypassacuteMay 2024 10:59am [facility] Work Phone: Evaluation note* Diagnosis Preoperative [...] aftercare following surgery documented in this encounter [facility] note* Diagnosis Preoperative examination- Primary Preoperative [...] acute postoperative pain [facility]* Diagnosis Preoperative examination- Primary Preoperative [...] acute postoperative pain [facility]* Diagnosis Preoperative examination- Primary Preoperative [...] aftercare following surgery [facility] Diagnosis Preoperative examination- Primary Preoperative [...] NO SHOW- Primary [facility] Diagnosis Sinus tarsitis of right foot- Primary Other specified disorders of synovium, right ankle and foot [facility] N[facility]ative - Reported* Type Description Date Medical History Esophageal reflux Medical HistoryanxietyMedical Historychronic depressionMedical Historyhigh blood pressureMedical Historylow thyroidMedical Historymenieres diseaseMedical History kidney stonesMedical Historyiron deficiency anemiaSurgical HistoryC section Surgical Historygastric sleeveSurgical HistorycholecystectomySurgical History appendectomySurgical Historyleft knee meniscusHospitalization Historysee above [employer] Other Hospital course Narrative No data available for this section [facility] Discharge instructions No data available for this section [facility] Additional Instructions DISCHARGE INSTRUCTIONS FOR [...] if you have any problems. -Office number [phone] Work Phone: Hospital Discharge instructionsAmbulatory Orders* Referral to Dermatology Time Frame: 02/26/25, Location: None Selected * Referral to Psychiatry Time Frame: 02/26/25, Location: None Selected [facility] Work Phone: InstructionsNot on filedocumented in this encounter [facility] filedocumented in [facility]Not on filedocumented in this encounter [facility]Not on filedocumented in this encounter [facility]Not on filedocumented in this encounter [facility]ructionsNot on filedocumented in this encounter [facility] No data available for this section [facility] reason for visit Narrative* Consult, Test, Treat (Routine) - ClosedSpecialtyDiagnoses / ProceduresReferred By ContactReferred To Contact Diagnoses Preoperative examination Hiatal hernia Morbid obesity (HCC) Procedures REFER TO [facility] - PREOPERATIVE OPTIMIZATION OFFICE/OUTPATIENT [facility] 60 MINUTES Khoa Silveira, HEALTH CARE SANITARY TECHNICIAN.AUTOMATIC STEEL [employer]IE ADJUSTER [address] [place] [address] Phone: tel: fax: Referral IDStatusReasonStart DateExpiration DateVisits RequestedVisits [id number] PCP [facility]ed [facility]erral [facility] Narrative* Consult, Test, Treat (Routine) - ClosedSpecialtyDiagnoses / ProceduresReferred By ContactReferred To Contact Diagnoses Preoperative examination Hiatal hernia Morbid obesity (HCC) Procedures CONSULT TO [facility]IC[facility] OFFICE/OUTPATIENT [facility] 60 MINUTES Khoa Silveira APRN.AUTOM[employer]IC [employer] ADJUSTER [address] [place] [address] Phone: tel: fax: Referral IDStatusReasonStart DateExpiration DateVisits RequestedVisits [id number] PCP Requested Referral [facility] Summary Purpose Family History Relationship Condition Age at Onset Recorded Date/T jose j Not Specified Hypertension Unknown Diabetes mellitusUnknownAnxiety and depressionUnknownfatherMyocardial infarction UnknowngrandparentCrohn's diseaseUnknowngrandparentDiabetes mellitusUnknown Relationship Condition Age at Onset Recorded Date/T jose j Not Specified Hypertension Unknown Diabetes mellitusUnknownAnxiety and depressionUnknownfatherMyocardial infarction UnknowngrandparentCrohn's diseaseUnknowngrandparentDiabetes mellitusUnknown grandparentHistory of strokeUnknownNot SpecifiedDiabetes mellitusUnknown HypertensionUnknown Relationship Condition Age at Onset Recorded Date/T jose j mother Hypertension Unknown Diabetes mellitusUnknownAnxiety and depressionUnknownfatherMyocardial infarction UnknowngrandparentCrohn's diseaseUnknowngrandparentDiabetes mellitusUnknown grandparentHistory of strokeUnknownmotherDiabetes mellitusUnknownHypertension Unknown Relationship Condition Age at Onset Recorded Date/T jose j mother Hypertension Unknown Diabetes mellitusUnknownAnxiety and depressionUnknownfatherMyocardial infarction UnknownHeart diseaseUnknowngrandparentCrohn's diseaseUnknowngrandparentDiabetes mellitusUnknowngrandparentHistory of strokeUnknown Advance Directives Advance Directive Response Recorded Date/ Time Advance Directives No February 27 1:14pm Advance Directive Response Recorded Date/ Time Advance Directives No February 27 12:14pm Chief Complaint and Reason for Visit Chief Complaint GERD,LARISSA, Diarrhea Reason for Visit Iron deficiency anem ia Chief Complaint Unknown Chief Complaint Unknown est careReason for VisitAnxiety Depression Dry scalp Hernia Hypothyroid Iron deficiency anemia Tachycardia Chief Complaint est care TACHYCARDIA, UNSPECIFIEDReason for VisitAnxiety Depression Dry scalp GERD (gastroesophageal reflux disease) Hernia HTN (hypertension) Hypothyroid Iron deficiency anemia Tachycardia Chief Complaint est care TACHYCARDIA, UNSPECIFIEDReason for VisitAnxiety Depression Dry scalp GERD (gastroesophageal reflux disease) Hernia HTN (hypertension) Hypothyroid Iron deficiency anemia Tachycardia HTN (hypertension) Inappropriate sinus tachycardia Palpitations Chief Complaint est care TACHYCARDIA, UNSPECIFIED r00.0 Mental HealthReason for VisitAnxiety Depression Dry scalp GERD (gastroesophageal reflux disease) [...] February 26, 2025 9:55am Reason for Referral SpecialtyDiagnoses / ProceduresReferred By ContactReferred To ContactMaternal and Medicine Diagnoses Pre-existing essential hypertension during in second trimester Advanced maternal age in multigravida, second trimester Hypothyroid in , antepartum Procedures [facility] with or without consult Héctor Aguilar MD [address] [facility] [facility], [address] [place] [address] [facility] [address] [place] [address] Referral IDStatusReasonStart DateExpiration DateVisits RequestedVisits [id number] Review/[id number] / ProceduresReferred By ContactReferred To Contact Diagnoses Morbid obesity due to excess calories (HCC) S/P bariatric surgery Preoperative testing Snoring Other fatigue Morbid obesity with BMI of 40.0-44.9, adult (HCC) Procedures CONSULT TO SLEEP MEDICINE - ADULT OFFICE/OUTPATIENT [facility] 60 MINUTES Renetta Ruano MD [address] [place] [address] Referral IDStatusReasonStart DateExpiration DateVisits RequestedVisits [id number] Review PCP Requested Referral [id number] / ProceduresReferred By ContactReferred To ContactNEUROLOGICAL INSTITUTE Diagnoses Morbid obesity due to excess calories (HCC) S/P bariatric surgery Preoperative testing Snoring Other fatigue Morbid obesity with BMI of 40.0-44.9, adult ([facility]) Procedures HOME SLEEP APNEA TEST (HSAT) SLEEP STD AIRFLOW HRT RATE&O2 SAT EFFORT UNATT Renetta Ruano MD [address] [place] [address] [facility] [place] [place] [address] [place] [address] Referral IDStatusReasonStart DateExpiration DateVisits RequestedVisits [id number] Request Auto-Generated Referral [id number] / ProceduresReferred By ContactReferred To ContactGENERAL SURGERY Diagnoses Gastroesophageal reflux disease, unspecified whether esophagitis present Procedures CONSULT BARIATRIC/[facility]IC IN[facility] OFFICE/OUTPATIENT [facility] 60 MINUTES Rocio Jeff MD [facility] [place] [address] Ayse Grissom MD [address] [place] [address] Referral IDStatusReasonLeona DateExpiration DateVisits RequestedVisits [id number]/18/202412/31/202411 Additional Source Comments INFORMATION SOURCE (unrecogn ized section and content) DATE CREATED AUTHOR 01/07/2023 [facility] DATE CREATED AUTHOR AUTHOR'S ORGANIZ ATION 10/19/2023 [facility] DATE CREATED AUTHOR AUTHOR'S ORGANIZ ATION 11/03/2023 [facility] DATE CREATED AUTHOR AUTHOR'S ORGANIZ ATION 01/06/2024 [facility] DATE CREATED AUTHOR AUTHOR'S ORGANIZ ATION 05/12/2024 [facility] DATE CREATED AUTHOR AUTHOR'S ORGANIZ ATION 02/21/2025 [facility] DATE CREATED AUTHOR AUTHOR'S ORGANIZ ATION 02/25/2025 [facility] DATE CREATED AUTHOR AUTHOR'S ORGANIZ ATION 06/13/2025 [facility] REASON FOR VISIT (unrecogniz ed section and content) ReasonCommentsRoutine VisitReasonCommentsPatient UpdateReasonComments ConsultSpecialtyDiagnoses / ProceduresReferred By ContactReferred To Contact General Surgery / GENERAL SURGERY Diagnoses Abdominal wall hernia Ventral wall mass & abdominal wall hernia Procedures OFFICE/OUTPATIENT NEW SF MDM 15 MINUTES OFFICE/OUTPATIENT NEW LOW MDM 30 MINUTES OFFICE/OUTPATIENT NEW MODERATE MDM 45 MINUTES OFFICE/OUTPATIENT NEW HIGH MDM 60 MINUTES NEW DDI PATIENT Self Rocio Jeff MD [address] [place] [address] Referral IDStatusReasonStart DateExpiration DateVisits RequestedVisits [id number]/26/202412/[id number] PatientSpecialty Diagnoses / ProceduresReferred By ContactReferred To ContactGENERAL SURGERY Diagnoses Gastroesophageal reflux disease, unspecified whether esophagitis present Procedures CONSULT [facility]ATRIC[facility] OFFICE/OUTPATIENT NEW HIGH MDM 60 MINUTES Rocio Jeff MD [address] [place] [place] [id number] Ayse Grissom MD [address] [place] [address] Referral IDStatusMollyasonStart DateExpiration DateVisits RequestedVisits [id number]/18/202412/[id number]r Patient SpecialtyDiagnoses / ProceduresReferred By ContactReferred To ContactGENERAL SURGERY Diagnoses follow up Procedures follow up Ayse Grissom MD [address] [place] [address] [facility] [address] [place] [address] Referral IDStatusReasonStart DateExpiration DateVisits RequestedVisits [id number] OON/Self Pay Override Clearance Not Met -Financial Clearance Bypassed /[id number] Updatept updateReasonCommentsNew PatientSpecialtyDiagnoses / ProceduresReferred By ContactReferred To Contact Diagnoses Gastro-esophageal reflux disease without esophagitis Procedures NEW PATIENT VISIT LEVEL 1 Ayse Grissom MD [address] [place] [address] [facility] [place] [address] Referral IDStatusRepershing memorial hospitalStcrescent valley DateExpiration DateVisits RequestedVisits [id number] OON/Self Pay Override [id number] EducationAssessmentSpecialty Diagnoses / ProceduresReferred By ContactReferred To Contact Diagnoses Gastro-esophageal reflux disease without esophagitis Procedures NEW PATIENT VISIT LEVEL 1 Ayse Grissom MD [address] [place] [address] [place] [address] SpecialtyDiagnoses / ProceduresReferred By ContactReferred To ContactXR IMAGING Diagnoses Morbid obesity due to excess calories (HCC) [E66.01] S/P bariatric surgery [Z98.84] Preoperative testing [Z01.818] Snoring [R06.83] Other fatigue [R53.83] Morbid obesity with BMI of 40.0-44.9, adult (HCC) [E66.01, Z68.41] Procedures XR CHEST 2V FRONTAL/LAT Renetta Ruano MD [address] [place] [address] [facility] [place] [address] Referral IDStatusReasonStcrescent valley DateExpiration DateVisits RequestedVisits [id number] Request OON/Self Pay Override /[id number]QcazxzldEcfwUivzuoLqzheiogEjst CallousesRt callousReasonCommentsResultsReasonCommentsAdvanced Maternal Age Chronic HypertensionHypothyroidismReasonCommentsFollow-up2wk rt sinus tarsi oipbmRyeeoaMcauhjft77/06/2025 (pseudo)EwgdmgAgpjhkdg94.25.25 CureOpen Complex AWR 4 hours los [address] Grissom Hiatal hernia/Lap Gastric Sleeve 3 hoursReasonCommentsFollow-upRt ankle capsulitisReasonCommentsApproval call ReasonCommentsPost-Op VisitReasonCommentsPost Op CallReasonCommentsPost OpReason CommentsAnkle Pain Patient Care team informatio n (unrecognized section and content) Personnel Name: ELISABETH BECKMAN CNP Address: [address] [place] [address], [address] [place], [place] [address] Telecom: Team Status: Active Member Role Status Dates Yandel More , [facility]- Primary Care Provider Active Team Status: Inactive Member Role Status Dates Denys Galleog MD Attending Provider Active Yandel More FASHION DESIGNER-[facility] hospitaly Care ProviderActive Team Status: Inactive Member Role Status Dates Yandel More , [employer] DES[employer]-BC Primary Care Provider Active Start: December 12, 2023 End: December 11orefrank Amos ProviderActiveStart: December 12, 2023 End: December 12, 2023 Team Status: Inactive Member Role Status Dates Yandel More , [employer] DES[employer]-BC Primary Care Provider Active Start: December 12, 2023 End: December 11Clyde Huggins ProviderActiveStart: December 12, 2023 End: December 12, 2023 Team Status: Inactive Member Role Status Dates Yandel More , [employer]ASHION DESIGNER- Primary Care Provider Active Start: February 28, 2024 End: February 28, 2024Elisabeth Beckman APRN [employer] G[employer]IER-CAttending ProviderActive Start: February 28, 2024 End: February 28, 2024Team MemberRelationshipSpecialtyStart DateEnd Date Adrian Kerr DO [address] [place] [address] [place] [address] (work) ReferringOb/Gyn03/16/24Team MemberRelationshipSpecialtyStart DateEnd Date Adrian Kerr R, DO [address] [place] [address] ReferringOb/Gyn03/16/24Team MemberRelationshipSpecialtyStart DateEnd Date Adrian Kerr, DO [address] [place], [facility] ReferringOb/Gyn03/16/24 Team Status: Inactive Member Role Status Dates Yandel More , [employer]ASH[employer] DESIGN[employer]-BC Primary Care Provider Active Start: May 10, 2024 End: May 10, 2024Georsuzanne Quiñones , MDAttending ProviderActive Start: May 10, 2024 End: May 10, 2024Elisabeth Beckman APRN [employer] G[employer]-CReferring ProviderActive Start: May 10, 2024 End: May 10, 2024 Team Status: Active Member Role Status Dates Yandel More , FASHION DESIGNER-BC Primary Care Provider Active Start: May 10, 2024 Felipe Quiñones , MDAttending ProviderActiveStart: May 10, 2024 Team Status: Inactive Member Role Status Dates Yandel More , FASH[employer] DESIGN[employer]-BC Primary Care Provider Active Start: May 10, 2024 End: May 10, 2024Georsuzanne Quiñones , MDAttending ProviderActive Start: May 10, 2024 End: May 10, 2024Team MemberRelationshipSpecialtyStart DateEnd Date Adrian Kerr, DO [address] [place] [address] ReferringOb/Gyn03/16/24Team MemberRelationshipSpecialtyStart DateEnd Date Adrian Kerr, DO [address] [place] [address] ReferringOb/Gyn8 Team Status: Active Member Role Status Dates Elisabeth Beckman APRN [employer]-C Primary Care Provider Active Team Status: Inactive Member Role Status Dates Elisabeth Beckman APRN [employer]-C Primary Care Provider, Attending Provider Active Start: May 24, 2024 End: May 24, 2024Team MemberRelationshipSpecialtyStart DateEnd Date Adrian Kerr R, DO [address] [facility] [place] [address] [place] [address] ReferringOb/Gyn8Team MemberRelationshipSpecialtyStart DateEnd Date Adrian Kerr, DO [address] [facility] [place] [address] [place] [address] ReferringOb/Gyn03/16/24Team MemberRelationshipSpecialtyStart DateEnd Date Adrian Kerr, DO [address] [facility] [place] [address] [place] [address] ReferringOb/Gyn03/16/24Team MemberRelationshipSpecialtyStart DateEnd Date Adrian Kerr R, DO [address] [place] [address] [place] [address] ReferringOb/Gyn8 Team Status: Active Member Role Status Dates Elisabeth Beckman APRN [employer]-C Primary Care Provider, Attending Provider Active Start: June 15, 2024 Team Status: Inactive Member Role Status Dates Elisabeth Beckman APRN [employer]-C Primary Care Provider, Attending Provider Active Start: June 19, 2024 End: June 19, 2024Team MemberRelationshipSpecialtyStart DateEnd Date Elisabeth Beckman NP [address] [place] [address] [place] [address] PCP - GeneralFamily Ksswwlxz22/15/24Team MemberRelationshipSpecialtyStart Date End Date Elisabeth Beckman NP [address] [facility] [place] [address] [place] [address] PCP - GeneralFamily Nlnjnkiq60/15/24Team MemberRelationshipSpecialtyStart Date End Date Elisabeth Beckman NP [address] [facility] [place] [address] PCP - GeneralFamily Hjvucqif93/15/24 Team Status: Inactive Member Role Status Dates Elisabeth Beckman APRN [employer]-C Primary Care Provider, Attending Provider Active Start: August 15, 2024 End: August 15, 2024Team MemberRelationshipSpecialtyStart DateEnd Date Elisabeth Beckman NP [address] [facility] [place] [address] PCP - GeneralFamily Ksavadpi14/15/24Team MemberRelationshipSpecialtyStart Date End Date Adrian Kerr DO [address] [facility] [place] [address] [place] [address] ReferringOb/Gyn03/16/24Team MemberRelationshipSpecialtyStart DateEnd Date Adrian Kerr DO [address] [facility] [place] [address] [place] [address] ReferringOb/Gyn03/16/24Team MemberRelationshipSpecialtyStart DateEnd Date Elisabeth Beckman NP [address] [facility] [place] [address] PCP - GeneralFamily Xjqhidoe41/15/24Team MemberRelationshipSpecialtyStart Date End Date Elisabeth Beckman NP [address] [place] [address] [place] [address] PCP - GeneralFamily Fivvhbfc38/15/24 Team Status: Inactive Member Role Status Dates Elisabeth Beckman APRN [employer] Primary Care Provider, Attending Provider Active Start: September 14, 2024 End: September 14, 2024Team MemberRelationshipSpecialtyStart DateEnd Date No Pcp, [place] [address] PCP - GeneralFamily Medicine10/18/23Team MemberRelationshipSpecialtyStart DateEnd Date No Pcp, [place] [address] PCP - GeneralFamily Medicine10/18/23Team MemberRelationshipSpecialtyStart DateEnd Date Elisabeth Beckman NP [address] [place] [address] [place] [address] PCP - GeneralFamily Lfgjxnav17/15/24Team MemberRelationshipSpecialtyStart Date End Date Adrian Kerr DO [address] [place] [address] [place] [address] ReferringOb/Gyn03/16/24Team MemberRelationshipSpecialtyStart DateEnd Date Adrian eKrr, DO [address] [place] [address] [place] [address] ReferringOb/Gyn03/16/24Team MemberRelationshipSpecialtyStart DateEnd Date Elisabeth Beckman NP [address] [place] [address] [place] [address] PCP - GeneralFamily Vyxdsvni72/15/24Team MemberRelationshipSpecialtyStart Date End Date Elisabeth Beckman NP [address] [facility] [place] [address] PCP - GeneralFamily Auhigkiv19/15/24Team MemberRelationshipSpecialtyStart Date End Date Elisabeth Beckman NP [address] [facility] [place] [address] PCP - GeneralFamily Ppcbxktd53/15/24Team MemberRelationshipSpecialtyStart Date End Date Elisabeth Beckman NP [address] [facility] [place] [address] PCP - GeneralNurse Practitioner10/23/24 Adrian Kerr, [address] [place], [place] [address], [place] [address] ReferringOb/Gyn03/16/24Team MemberRelationshipSpecialtyStart DateEnd Date Elisabeth Beckman NP [address] [facility] [place] [address] PCP - GeneralNurse Practitioner10/23/24 Adrian Kerr DO [address] [place], [place] [address], [place] [address] ReferringOb/Gyn03/16/24Team MemberRelationshipSpecialtyStart DateEnd Date Elisabeth Beckman NP [address] [facility] [place] [address] PCP - GeneralNurse Practitioner10/23/24 Adrian Kerr, DO [address] [place] [address] ReferringOb/Gyn03/16/24Team MemberRelationshipSpecialtyStart DateEnd Date Elisabeth Beckman NP [address] [facility] [place] [address] PCP - GeneralNurse Practitioner10/23/24 Adrian Kerr, DO [address] [place], [facility] ReferringOb/Gyn03/16/24Team MemberRelationshipSpecialtyStart DateEnd Date Elisabeth Beckman NP [address] [facility], [facility] PCP - GeneralNurse Practitioner10/23/24 Adrian Kerr DO [address] [place], [facility] ReferringOb/Gyn03/16/24Team MemberRelationshipSpecialtyStart DateEnd Date Elisabeth Beckman NP [address] [place] [address] PCP - GeneralNurse Practitioner10/23/24 Adrian Kerr DO [address] [place] [address] ReferringOb/Gyn03/16/24Team MemberRelationshipSpecialtyStart DateEnd Date Elisabeth Beckman NP [address] [facility] [place] [address] PCP - GeneralNurse Practitioner10/23/24 Adrian Kerr DO [address] [place] [address] ReferringOb/Gyn03/16/24Team MemberRelationshipSpecialtyStart DateEnd Date Elisabeth Beckman NP [address] [facility] [place] [address] PCP - GeneralNurse Practitioner10/23/24 Adrian Kerr DO [facility] [place] [address] ReferringOb/Gyn03/16/24 Team Status: Active Member Role Status Dates Elisabeth Beckman APRN [employer] Primary Care Provider, Attending Provider Active Start: November 06, 2024 Team Status: Inactive Member Role Status Dates Elisabeth Beckman APRN [employer] Primary Care Provider, Attending Provider Active Start: December 20, 2024 End: December 20, 2024Team MemberRelationshipSpecialtyStart DateEnd Date Elisabeth Beckman NP [address] [facility] [place] [address] PCP - GeneralNurse Practitioner10/23/24 Adrian Kerr DO [facility] [place] [address] ReferringOb/Gyn03/16/24Team MemberRelationshipSpecialtyStart DateEnd Date Elsiabeth Beckman NP [address] [facility] [place] [address] PCP - GeneralNurse Practitioner10/23/24 Adrian Kerr DO [address] [place], [place] [address]e [facility] [place] [address] ReferringOb/Gyn03/16/24Team MemberRelationshipSpecialtyStart DateEnd Date Elisabeth Beckman NP [address] [facility] [place] [address] PCP - GeneralNurse Practitioner10/23/24 Adrian Kerr DO [address] [place] [address] [place], [facility] ReferringOb/Gyn03/16/24Team MemberRelationshipSpecialtyStart DateEnd Date Elisabeth Beckman NP [address] [place] [address] PCP - GeneralNurse Practitioner10/23/24 Adrian Kerr DO [address] [place] [address] [place], [facility] ReferringOb/Gyn03/16/24Team MemberRelationshipSpecialtyStart DateEnd Date Elisabeth Beckman NP [address] [facility] [place] [address] PCP - GeneralFamily Plzpvhou70/15/24 Team Status: Inactive Member Role Status Dates Elisabeth Beckman APRN [employer] Primary Care Provider Active Start: December 20, 2024 End: December 20, 2024Elisabeth Beckman APRN [employer]-CAttending ProviderActiveStart: December 20, 2024 End: December 20, 2024 Team Status: Inactive Member Role Status Dates Elisabeth Beckman APRN [employer] Primary Care Provider Active Start: February 26, 2025 End: February 26, 2025Elisabeth BRENDA Beckman [employer]-CAttenghulam ProviderActive Start: February 26, 2025 End: February 26, 2025Team MemberRelationshipSpecialtyStart DateEnd Date Jaimiegokul Elisabeth Sears NP [facility] [place] [address] [facility] - [facility] Fgcfmsol51/15/24Team MemberRelationshipSpecialtyStart Date End Date Elisabeth Beckman NP [facility] [place] [address] PCP - [facility] Vlscojne24/15/24 Goals (unrecognized section and content) Goals may be documented in a n alternate section Source Comments (unrecognize d section and content) In the event this informatio n is protected by the Federal Confidentiality of Alcohol and Drug Abuse Patient Records regulations: The Federal rules restrict any use of the information to criminally investigate or prosecute any alcohol or drug abuse patient.[facility] WestIn the event this information is protected by the Federal Confidentiality of Alcohol and Drug Abuse Patient Records regulations: The Federal rules restrict any use of the information to criminally investigate or prosecute any alcohol or drug abuse patient.[facility] WestIn the event this information is protected by the Federal Confidentiality of Alcohol and Drug Abuse Patient Records regulations: The Federal rules restrict any use of the information to criminally investigate or prosecute any alcohol or drug abuse patient.[facility] WestIn the event this information is protected by the Federal Confidentiality of Alcohol and Drug Abuse Patient Records regulations: The Federal rules restrict any use of the information to criminally investigate or prosecute any alcohol or drug abuse patient.[facility] WestIn the event this information is protected by the Federal Confidentiality of Alcohol and Drug Abuse Patient Records regulations: The Federal rules restrict any use of the information to criminally investigate or prosecute any alcohol or drug abuse patient.[facility] WestIn the event this information is protected by the Federal Confidentiality of Alcohol and Drug Abuse Patient Records regulations: The Federal rules restrict any use of the information to criminally investigate or prosecute any alcohol or drug abuse patient.[facility] WestIn the event this information is protected by the Federal Confidentiality of Alcohol and Drug Abuse Patient Records regulations: The Federal rules restrict any use of the information to criminally investigate or prosecute any alcohol or drug abuse patient.[facility] WestIn the event this information is protected by the Federal Confidentiality of Alcohol and Drug Abuse Patient Records regulations: The Federal rules restrict any use of the information to criminally investigate or prosecute any alcohol or drug abuse patient.[facility] WestIn the event this information is protected by the Federal Confidentiality of Alcohol and Drug Abuse Patient Records regulations: The Federal rules restrict any use of the information to criminally investigate or prosecute any alcohol or drug abuse patient.[facility] WestIn the event this information is protected by the Federal Confidentiality of Alcohol and Drug Abuse Patient Records regulations: The Federal rules restrict any use of the information to criminally investigate or prosecute any alcohol or drug abuse patient.[facility] WestIn the event this information is protected by the Federal Confidentiality of Alcohol and Drug Abuse Patient Records regulations: The Federal rules restrict any use of the information to criminally investigate or prosecute any alcohol or drug abuse patient.[facility] WestIn the event this information is protected by the Federal Confidentiality of Alcohol and Drug Abuse Patient Records regulations: The Federal rules restrict any use of the information to criminally investigate or prosecute any alcohol or drug abuse patient.[facility] WestIn the event this information is protected by the Federal Confidentiality of Alcohol and Drug Abuse Patient Records regulations: The Federal rules restrict any use of the information to criminally investigate or prosecute any alcohol or drug abuse patient.[facility] WestIn the event this information is protected by the Federal Confidentiality of Alcohol and Drug Abuse Patient Records regulations: The Federal rules restrict any use of the information to criminally investigate or prosecute any alcohol or drug abuse patient.[facility] WestIn the event this information is protected by the Federal Confidentiality of Alcohol and Drug Abuse Patient Records regulations: The Federal rules restrict any use of the information to criminally investigate or prosecute any alcohol or drug abuse patient.[facility] WestIn the event this information is protected by the Federal Confidentiality of Alcohol and Drug Abuse Patient Records regulations: The Federal rules restrict any use of the information to criminally investigate or prosecute any alcohol or drug abuse patient.[facility] WestIn the event this information is protected by the Federal Confidentiality of Alcohol and Drug Abuse Patient Records regulations: The Federal rules restrict any use of the information to criminally investigate or prosecute any alcohol or drug abuse patient.[facility] WestIn the event this information is protected by the Federal Confidentiality of Alcohol and Drug Abuse Patient Records regulations: The Federal rules restrict any use of the information to criminally investigate or prosecute any alcohol or drug abuse patient.[facility] WestIn the event this information is protected by the Federal Confidentiality of Alcohol and Drug Abuse Patient Records regulations: The Federal rules restrict any use of the information to criminally investigate or prosecute any alcohol or drug abuse patient.[facility] WestIn the event this information is protected by the Federal Confidentiality of Alcohol and Drug Abuse Patient Records regulations: The Federal rules restrict any use of the information to criminally investigate or prosecute any alcohol or drug abuse patient.[facility] WestIn the event this information is protected by the Federal Confidentiality of Alcohol and Drug Abuse Patient Records regulations: The Federal rules restrict any use of the information to criminally investigate or prosecute any alcohol or drug abuse patient.[facility] WestIn the event this information is protected by the Federal Confidentiality of Alcohol and Drug Abuse Patient Records regulations: The Federal rules restrict any use of the information to criminally investigate or prosecute any alcohol or drug abuse patient.[facility] WestIn the event this information is protected by the Federal Confidentiality of Alcohol and Drug Abuse Patient Records regulations: The Federal rules restrict any use of the information to criminally investigate or prosecute any alcohol or drug abuse patient.[facility] WestIn the event this information is protected by the Federal Confidentiality of Alcohol and Drug Abuse Patient Records regulations: The Federal rules restrict any use of the information to criminally investigate or prosecute any alcohol or drug abuse patient.[facility] WestIn the event this information is protected by the Federal Confidentiality of Alcohol and Drug Abuse Patient Records regulations: The Federal rules restrict any use of the information to criminally investigate or prosecute any alcohol or drug abuse patient.[facility] WestIn the event this information is protected by the Federal Confidentiality of Alcohol and Drug Abuse Patient Records regulations: The Federal rules restrict any use of the information to criminally investigate or prosecute any alcohol or drug abuse patient.[facility] WestIn the event this information is protected by the Federal Confidentiality of Alcohol and Drug Abuse Patient Records regulations: The Federal rules restrict any use of the information to criminally investigate or prosecute any alcohol or drug abuse patient.[facility] WestIn the event this information is protected by the Federal Confidentiality of Alcohol and Drug Abuse Patient Records regulations: The Federal rules restrict any use of the information to criminally investigate or prosecute any alcohol or drug abuse patient.[facility] WestIn the event this information is protected by the Federal Confidentiality of Alcohol and Drug Abuse Patient Records regulations: The Federal rules restrict any use of the information to criminally investigate or prosecute any alcohol or drug abuse patient.[facility] WestIn the event this information is protected by the Federal Confidentiality of Alcohol and Drug Abuse Patient Records regulations: The Federal rules restrict any use of the information to criminally investigate or prosecute any alcohol or drug abuse patient.[facility] WestIn the event this information is protected by the Federal Confidentiality of Alcohol and Drug Abuse Patient Records regulations: The Federal rules restrict any use of the information to criminally investigate or prosecute any alcohol or drug abuse patient.[facility] WestIn the event this information is protected by the Federal Confidentiality of Alcohol and Drug Abuse Patient Records regulations: The Federal rules restrict any use of the information to criminally investigate or prosecute any alcohol or drug abuse patient.[facility] WestIn the event this information is protected by the Federal Confidentiality of Alcohol and Drug Abuse Patient Records regulations: The Federal rules restrict any use of the information to criminally investigate or prosecute any alcohol or drug abuse patient.[facility] FOR RECORDS PERTAINING TO PATIENTS WHO ARE [...] BE BASED ON THE PRIMARY CLINICAL RECORDS. [facility] [employer] [facility]. provides no warranty or guarantee of the accuracy or completeness of information in this document.
[2025-06-19 10:23] LABS: Hematocrit 41.8 % (36.0-48.0); Hemoglobin 14.2 g/dL (12.0-16.0); Immature Granulocytes Abs Auto 0.02 10^3/uL (0.00-0.03); Immature Granulocytes Pct Auto 0.3 % (0.0-0.5); Lymphocytes Absolute Auto 1.8 10^3/uL (1.2-3.8); Mean Corpuscular HGB Conc 34.0 g/dL (29.9-35.2); Mean Corpuscular Hemoglobin 28.9 pg (26.7-34.0); Mean Corpuscular Volume 85.0 fL (81.0-99.0); Platelet Count 251 10^3/uL (150-450); Red Blood Count 4.92 10^6/uL (4.20-5.40); White Blood Count 6.9 10^3/uL (4.0-11.0)
[2025-06-19 10:41] LABS: Cholesterol 144 mg/dL (<=200); HDL Cholesterol 42 mg/dL (40-60); Triglycerides 115 mg/dL (<=150); VLDL CHOLESTEROL 23.0 mg/dL
== END 2025-06-19 08:50 | disposition home or self-care (01) ==
PROVIDERS: PCP Nurse Practitioner Family
DX: Z79.899 Other long term (current) drug therapy (principal)
CPT/HCPCS: 36415; 80061; 85025; 86803; 87340

== ENCOUNTER 2025-06-19 08:55 | Outpatient (OUT) | payer OTHER, SELFPAY ==
--- NOTE | 2025-06-19 09:04 | XR_ITS ---
The [address] [address] Patient Name: TIFFANI GROSSMAN MRN: [id number] date: 1985 Sex: F Assigned Patient Location: [place] Current Patient Location: [place] Accession/Order Number: [id number] Exam Date: 06/19/2025 09:09 Report Date: 06/19/2025 09:32 At the request of: SERINA ALBERTO Procedure: XR abdomen 1V SINGLE VIEW ABDOMEN COMPARISON: CT 03/29/2024 CLINICAL DATA: Right flank pain. History of kidney stones. Supine views of the abdomen and pelvis were obtained. There is mild air and stool within the colon. There is no dilated small bowel. No soft tissue masses are identified. No radiopaque renal or ureteral stones are noted. There is anastomotic suture at the left upper quadrant suggesting prior bariatric surgery. There are clips from prior cholecystectomy and at the left pelvis from hernia repair. There are minor degenerative changes at the spine and SI joints. XR/XR abdomen 1V IMPRESSION: NO RADIOPAQUE STONES. Impression dictated by: Елена Montoya M.D. 06/19/2025 9:32 AM Dictation Location: [place] [address] Electronically authenticated by: [id number] Y Date: 06/19/2025 09:32
--- NOTE | 2025-06-19 09:04 | US_ITS ---
The [address] [address] Patient Name: TIFFANI GROSSMAN MRN: [id number] date: 1985 Sex: F Assigned Patient Location: Current Patient Location: [place] Accession/Order Number: [id number] Exam Date: 06/19/2025 09:05 Report Date: 06/19/2025 09:45 At the request of: SERINA ALBERTO Procedure: US renal BI BILATERAL RENAL AND BLADDER ULTRASOUND CLINICAL HISTORY: Right Flank Pain. History kidney stones and urinary tract infection. COMPARISON: CT 03/29/2024 Estimation of renal size is approximately 11.9 cm on the right and 12.7 cm on the left. No shadowing calculi or hydronephrosis are identified. No renal mass lesions were imaged. There is no perinephric fluid. Incidental note is made of increased echogenicity of the liver that may be fatty infiltration. The urinary bladder is poorly distended with a volume of 39 mL. No obvious contour or intraluminal abnormalities are seen. There is a subcutaneous fluid collection at the anterior pelvic wall with a tract and skin. The incision site superior to it. The collection measures approximately 7.2 x 1.5 x 5.7 cm in size. It may be seroma or old hematoma. Abscess is not excluded in the correct clinical setting and correlation is therefore recommended. US/US renal BI IMPRESSION: NO OBSTRUCTIVE UROPATHY. PELVIC SUBCUTANEOUS FLUID COLLECTION WHICH IS LIKELY POSTOPERATIVE, DISCUSSED ABOVE. Impression dictated by: Елена Montoya M.D. 06/19/2025 9:45 AM Dictation Location: [place] [address] Electronically authenticated by: [id number] Y Date: 06/19/2025 09:45
--- OUTSIDE RECORDS SUMMARY | 2025-06-19 09:06 | XMS_ITS | CCD ---
Author Organization [facility] Care Team Providers Care Freight Adjuster Name Role Phone KWAN ., LUKE Admitting [...] SHAMMO, YANDEL Consulting Unavailable Denys Gallego Unavailable [phone] SHAMMO, YANDEL TOMASA Primary Care Physician MD Denys Gallego Attending Provider [phone] Shammo, [facility] Yandel T Primary Care Provider Unavailable Primary Care Provider Unavailabl e MYRIAM, ADRIAN R Referring Unavailable NO PCP, NO PCP Primary Care Unavailable HÉCTOR AGUILAR Attending Unavailable MYRIAM, ADRIAN R Referring Unavailable NO PCP, NO PCP Primary Care Unavailable MYRIAM, ADRIAN R Referring Unavailable JEFF HÉCTOR Attending Unavailable MYRIAM, ADRIAN R Referring Unavailable Shammo, FIELD PARTY MANAGER-BC Yandel T Primary Care Provider [phone] Myriam, Adrian Attending Provider [phone] MYRIAM, ADRIAN Attending Unavailable DOMINIC, KASSANDRA Attending [...] Shammo, Yandel T Primary Care Unavailable Shammo, FIELD PARTY MANAGER-BC Yandel T Primary Care Provider MD Felipe Quiñones Attending Provider Shammo FIELD PARTY MANAGER-BC, Yandel T Primary Care Provider Felipe Quiñones MD Attending Provider Rohrbacher CEMENT FINISHER HELPER, Elisabeth Sears Primary Care Provider Unavailable Primary Care Provider Unavailabl e No Pcp, No Pcp Primary Care Provider Unavailabl e Rohrbacher CEMENT FINISHER HELPER, Elisabeth Sears Primary Care Provider SELF Referring [...] Care Provider Vestar Elisabeth GUTIERREZ Attending Provider Bárbara Nguyen Attending Unavailable Bárbara Nguyen Attending Unavailable Bárbara Nguyen Admitting Unavailable Allergies Allergy ClassificationReported Allergen(s)Allergy TypeDate of OnsetReaction(s) Facility (3 sources)PenicillinDrug Rfzqcju13-82-7084ApyjwcnRgu [facility] (20 sources)Penicillins; Translations: [penicillins]Allergy to substance 26-92-8187Upxtsoaruga (disorder), Anaphylaxis, Unknown, Cough, Hives, Itching, Rash, Shortness of Breath, SwellingExecutive Urology of [facility] (20 sources)Penicillin GDrug Agcmovm17-61-9772ZsqapsxFHHV Healthcare (20 sources)Topiramate; Translations: [TOPIRAMATE]Allergy to korouwpuu69-69-9918 [facility] (20 sources)topiramateDrug Bpsdjbt80-37-6024WgpywwetqbbByaPhnjxi Health System Medications Current Medications MedicationDrug Class(es)DatesSig (Normalized)Sig (Original)acetaminophen 500 mg oral tablet (20 sources)Start: 91-11-3181mmdw 2 tablets by mouth every six hours [...] (20 sources)Dihydropyridine Calcium Channel BlockerStart: 09-24-2022 End: 31-03-6466iglq 1 tablet by mouth once dailyamLODIPine 10 mg Tab 10 mg = 1 tab(s), Oral, Daily, Refills(s) 0 Start Date: 01/26/23 Status: Ordered Medication Dispense Status: Completed Total Allowed Fills: 1 Fills Dispensed: 0 deucravacitinib 6 MG Oral Tablet [Sotyktu] (1 source)Start: 88-26-1558qywf 1 mg by mouth once dailySotyktu 6 mg oral tablet mg tab(s), Oral, Daily, Refills(s) 0 Start Date: 06/11/25 Status: Ordered M edication Dispense Status: Completed Total Allowed Fills: 1 Fills Dispensed: 0 doxycycline hyclate 100 mg oral capsule (6 sources)Tetracycline-class DrugStart: 12-05-2024 End: 70-25-0978czni 1 capsule by mouth twice dailydoxycycline hyclate (VIBRAMYCIN) 100 mg capsule Indications: Postoperative visit Take 1 capsule by m outh two times a day for 10 days. 20 capsule 12/05/2024 12/15/2024 ActiveStart: 11-27-2024 End: 51-25-4053opcp 1 capsule by mouth every twelve hours in the morning, then take 6 capsules by mouth in the eveningdoxycycline hyclate (VIBRAMYCIN) 100 mg capsule Take 1 capsule by mouth every 12 hours at 6 am and 6 pm for 7 days. 14 capsule 11/27/2024 1:46 PM EDT 11/27/2024 12/04/2024 ActiveDULoxetine 30 mg delayed release oral capsule (20 sources)Serotonin and Norepinephrine Reuptake InhibitorStart: 64-96-3898sbsq 1 capsule by mouth once dailyduloxetine 30 mg oral delayed release capsule TAKE 1 CAPSULE BY MOUTH DAILY Start Date: 06/11/25 Status: Ordered Medication Dispense Status: Completed Total Allowed Fills: 1 Fills Dispensed: 0Start: 69-75-4956jnqd 1 capsule by mouth once dailyDuloxetine 30 mg capsule,delayed release(DR/EC) Active 30 MG PO Daily December 17, 2024 12:00am Complies with drug therapyStart: 12-11-2024 End: 46-57-1066pwja 1 capsule by mouth once dailyDuloxetine 40 mg capsule,delayed release(DR/EC) Discontinued 0 .ROUTE .COMPLEX December 11, 2024 7:47am December 17, 2024 3:12pm TAKE 1 CAPSULE BY MOUTH DAILYStart: 09-14-2024 End: 89-73-7896okgs 1 capsule by mouth once dailyDuloxetine (Cymbalta) 30 mg capsule,delayed release(DR/EC) Discontinued 30 MG PO Daily 30 December 10, 2024 9:12am December 11, 2024 7:48amEnoxaparin 40 mg/0.4 mL syringe (1 source)Start: 31-82-5085cjmdmt 40 mg by subcutaneous injection twice daily Enoxaparin 40 mg/0.4 mL syringe Active 40 MG SUBCUT Twice daily December 20, 2024 12:00amfluocinolone acetonide 0.1 mg/ml topical oil (2 sources)CorticosteroidFluocinolone Acetonide Scalp 0.01 % 1 application Externally Twice a day Activegabapentin 300 mg oral capsule (14 sources)Anti-epileptic AgentStart: 12-10-2024 End: 01-13-0778uczz 1 capsule by mouth twice dailygabapentin (NEURONTIN) 300 mg capsule Indications: Acute postoperative pain Take 1 capsule by mouthtwo times a day for 30 days. 60 capsule 01/24/2025 02/23/2025 Activeibuprofen 800 mg oral tablet (20 sources)Nonsteroidal Anti-inflammatory DrugStart: 49-39-5900Ejnvwsfob 800 mg tablet Active 800 MG PO every 6 to 8 hours as needed May 10, 2024 12:00am Complies with drug therapyStart: 03-13-2024 End: 23-22-3496skjaywnub 800 MG tablet 03/13/2024 Activeiron carbonyl 15 mg chewable tablet (2 sources)Start: 07-73-7380Akuquctx Iron (Iron Chews Pediatric) 15 MG chewable tablet Chew 0 01/26/2023 ActiveIron Chews (2 sources)Start: 60-47-8116ribj 1 mg by mouth once dailyIron Chews mg, Oral, Daily, Refills(s) 0 Start Date: 01/26/23 Status: Orderedketoconazole 20 mg/ml medicated shampoo (1 source)Azole AntifungalStart: 33-10-8941ujrqprbbjdbt Top 2% Shampoo wash scalp TUESDAY thru TUESDAY, lather and let sit 2-3 MINUTES then rinse Start Date: 06/11/25 Status: Ordered Medication Dispense Status: Completed Total Allowed Fills: 1 Fills Dispensed: 0levothyroxine sodium 0.025 mg oral tablet (20 sources)l-ThyroxineStart: 43-71-5904aysb 1 tablet by mouth once daily levothyroxine 25 mcg (0.025 mg) Tab 25 mcg = 1 tab(s), Oral, Daily, Refills(s) 0 Start Date: 03/13/24 Status: Ordered Medication Dispense Status: Completed Total Allowed Fills: 1 Fills Dispensed: 0Start: 09-01-2023 End: 13-81-8750wpjg 1 tablet by mouth before mealtimelevothyroxine (Synthroid, Levoxyl) 25 MCG tablet Indications: Other specified hypothyroidism TAKE 1TABLET BY MOUTH IN THE MORNING BEFORE MEALS WITH the current dosage 30 tablet 3 11/21/2023 ActiveStart: 86-93-1827Cpwluzicy 137 MCG tablet Take 137.5 mcg by mouth in the morning. Take before meals. 0 03/09/2023 ActiveStart: 06-28-2023 take 1 capsule by mouth once dailylevothyroxine 137 mcg (0.137 mg) oral capsule 137 mcg = 1 cap(s), Oral, Daily, Refills(s) 0 Start Date: 01/26/23 Status: Ordered Medication Dispense Status: Completed Total Allowed Fills: 1 Fills Dispe nsed: 0Start: 86-39-9775ipel 1 tablet by mouth once dailyLevothyroxine (Synthroid) 137 mcg tablet Active 137 MCG PO Daily March 14, 2023 12:00am Complieswith drug therapyLevothyroxine Sodium Activemeclizine hydrochloride 25 mg oral tablet (17 sources)AntiemeticStart: 18-71-6742izelhmvxq (Antivert) 25 MG tablet every 12 (twelve) hours 0 03/14/2023 ActiveStart: 03-14-2023 End: 52-86-7563ezxz 1 tablet by mouth once daily as needed for dizziness Meclizine 25 mg Tablet Discontinued 25 MG PO Daily as needed for Dizziness March 14, 2023 12:00am February 28, 2024 8:19amStart: 13-24-9727tbyc 1 mg by mouth once dailymeclizine 25 mg oral tablet, chewable mg tab(s), Chewed, Daily, Refills(s) 0 Start Date: 01/26/23 Status: Orderedtake 1 tablet by mouth every twelve hoursMeclizine HCl 25 MG 1 tablet as needed Orally every 12 hrs Active melatonin 1 mg oral capsule (20 sources)Start: 36-88-9035Wndpaqtsr 1 MG capsule Bedtime 0 03/14/2023 Active Start: 03-14-2023 End: 08-37-3130ruxp 1 tablet by mouth at bedtimeMelatonin 12 mg Tablet Discontinued 12 MG PO Bedtime March 14, 2023 12:00am February 28, 2024 8:19am melatonin 1 mg chew Take by mouth. ActiveMelatonin 1 MG chewable tablet Chew 1 each in the morning. 0 Activemelatonin 1 mg tablet,chewable Chew and swallow. 0 ActivemetFORMIN hydrochloride 500 mg oral tablet (19 sources)BiguanideStart: 00-36-9187cuae 1 tablet by mouth every twelve hours metFORMIN (GLUCOPHAGE) 500 mg tablet Take 1 tablet by mouth every 12 hours. 09/14/2024 ActiveStart: 09-14-2024 End: 77-43-6371cvyj 1 tablet by mouth twice dailyMetformin 500 mg tablet Discontinued 500 MG PO Twice daily 180 90 September 14, 2024 1:00am February 26, 2025 10:12ammethocarbamol 500 mg oral tablet (14 sources)Muscle RelaxantStart: 01-24-2025 End: 02-22-6546wxto 1 tablet by mouth twice daily as neededmethocarbamol (ROBAXIN) 500 mg tablet Indications: Acute postoperative pain Take 1 tablet by mouth two times a day as needed. 60 tablet 01/24/2025 02/23/2025 ActiveStart: 12-05-2024 End: 78-66-1780gsaa 1 tablet by mouth three times daily as neededmethocarbamol (ROBAXIN) 750 mg tablet Indications: Acute postoperative pain Take 1 tablet by mouth three times a day as needed for up to 10 days. 30 tablet 01/07/2025 01/17/2025 ActiveStart: 11-27-2024 End: 76-73-7079qhpf 1 tablet by mouth every eight hours as neededmethocarbamol (ROBAXIN) 500 mg tablet Take 1 tablet by mouth three times a day as needed (Muscle spasms) for up to 5 days. 15 tablet 11/27/2024 1:46 PM EDT 11/27/2024 12/02/2024 Ofiwvm67 hr metoprolol succinate 100 mg extended release oral tablet (20 sources)beta-Adrenergic BlockerStart: 20-96-5759ufrh 1 tablet by mouth every twenty-four hours in the morningmetoprolol succinate XL (Toprol-XL) 100 MG 24 hr tablet Indications: Hypertension affecting in second trimester ([facility]) TAKE 1 TABLET BY MOUTH IN THE MORNING 30 tablet 11 09/04/2024 Active Start: 03-14-2023 End: 30-20-5784vzam 4 tablets by mouth once dailyMetoprolol Succinate 100 mg tablet extended release 24 hr Discontinued 25 MG PO Daily March 14, 2023 12:00am February 28, 2024 8:19amStart: 03-14-2023 End: 95-34-0880wygf 25 mg by mouth once dailyMetoprolol Succinate Discontinued 25 MG PO Daily March 14, 2023 12:00am February 28, 2024 8:19amStart: 09-09-2022 take 1 tablet by mouth once dailymetoprolol 100 mg ER Tab 100 mg = 1 tab(s), Oral, Daily, Refills(s) 0 Start Date: 01/26/23 Status: Ordered Medication Dispense Status: Completed Total Allowed Fills: 1 Fills Dispensed: 0Start: 09-09-2022 End: 77-94-0875dzyshwsggz succinate ER (TOPROL XL) 100 mg Take 100 mg by mouth. 09/09/2022 Activetake 1 capsule by mouth once dailyMetoprolol Succinate 100 MG 1 capsule Orally Once a day ActiveMulti Vitamin+ (2 sources)Start: 21-43-2609Qjsqp Vitamin+ Refill(s) 0 Start Date: 01/26/23 Status: OrderedMultiple Vitamin (Multi Vitamin Daily) tablet (2 sources)Start: 62-45-4731Kpvhfxpv Vitamin (Multi Vitamin Daily) tablet Refill(s) 0 0 01/26/2023 Activeondansetron 4 mg disintegrating oral tablet (20 sources)Serotonin-3 Receptor AntagonistStart: 32-58-8060mbzm 1 tablet by mouth every eight hours as needed for nausea and vomitingOndansetron 4 mg tablet,disintegrating Active 4 MG PO Q8H as needed for nausea and vomiting 30 05February 14, 2025 12:00am Complies with drug therapyStart: 03-14-2023 End: 75-95-4663Bnmsayylksj 4 mg tablet,disintegrating Discontinued 4 MG PO As Directed as needed for Nausea 2022 12:00am February 28, 2024 8:19am Start: 03-14-2023 End: 08-47-9414daowebrgfzr orally disintegrating (ZOFRAN ODT) 4 mg disintegrating tablet 1 (one) time each day at the same time 03/14/2023 Active Start: 34-10-9496dbgq 1 mg by mouth every eight hoursZofran 4 mg Tab mg tab(s), Oral, q8hr, Refills(s) 0 Start Date: 01/26/23 Status: Orderedtake 1 tablet by mouth every twenty-four hoursOndansetron HCl 4 MG 1 tablet Orally Once a day ActiveoxyCODONE hydrochloride 5 mg oral tablet (9 sources)Opioid AgonistStart: 12-10-2024 End: 93-05-5722avlq 1 tablet by mouth every eight hours as needed for pain oxyCODONE IR (ROXICODONE) 5 mg immediate release tablet Indications: Acute postoperative pain Take 1 tablet by mouth every 8 hours as needed for pain for up to 7 days. 20 tablet 12/10/2024 5ActiveStart: 11-27-2024 End: 71-24-9488tubi 1 tablet by mouth every six hours as needed for pain oxyCODONE IR (ROXICODONE) 5 mg immediate release tablet Indications: Acute postoperative pain Take 1 tablet by mouth every 6 hours as needed for pain for up to 7 days. 28 tablet 12/03/2024 12/10/2024Discontinued (Course of therapy completed)predniSONE 10 mg oral tablet (4 sources)Start: 07-10-2024 End: 42-46-3465dxsk 5 tablets by mouth once daily, then [...] acetonide 0.001 mg/mg topical ointment (1 source)CorticosteroidStart: 29-46-9272hzrri 1 dose topically twice daily triamcinolone 0.1% topical kit Topical, BID, Refill(s) 0 Start Date: 06/11/25 Status: Ordered Medication Dispense Status: Completed Total Allowed Fills: 1 Fills Dispensed: 0Unisom Sleep Gels (2 sources)Start: 76-69-2200dufj 1 mg by mouth every six hoursUnisom Sleep Gels mg, Oral, q6hr, Refills(s) 0 Start Date: 01/26/23 Status: Ehmxsbs60 hr venlafaxine 37.5 mg extended release oral capsule (18 sources)Serotonin and Norepinephrine Reuptake InhibitorStart: 08-15-2024 venlafaxine XR (Effexor XR) 37.5 MG 24 hr capsule 08/15/2024 ActiveStart: 08-15-2024 End: 11-75-5915zaas 1 capsule by mouth once dailyVenlafaxine (Effexor Xr) 37.5 mg capsule,extended release 24hr Discontinued 37.5 MG PO Daily August 15, 2024 1:00am September 14, 2024 12:46pmvit B-comp w-Fe,Ca,FA<1mg (IRON- VITAMINS ORAL) (20 sources)vit B-comp w-Fe,Ca,FA Active Completed/Discontinued Medications MedicationDrug Class(es)DatesSig (Normalized)Sig (Original)acetaminophen 325 mg / oxyCODONE hydrochloride 5 mg oral tablet (19 sources)Opioid AgonistStart: 12-14-2023 End: 27-96-8300arge 1 tablet by mouth every six hoursoxyCODONE-acetaminophen (PERCOCET) 5-325 mg tablet Take 1 tablet by mouth q 6 HR. 12/14/2023 11/06/2024 DiscontinuedamLODIPine 10 mg / atorvastatin 10 mg oral tablet (16 sources)Dihydropyridine Calcium Channel Harsh, HMG-CoA Reductase Inhibitor End: 22-58-8470dyFOKYFhte-Atorvastatin 10-10 mg per tablet 11/06/2024 Discontinuedaspirin 81 mg delayed release oral tablet (20 sources)Platelet Aggregation Inhibitor, Nonsteroidal Anti-inflammatory Drug Start: 03-05-2024 End: 32-73-3204Gjiutxd (Adult Low Dose Aspirin) 81 mg tablet,delayed release (DR/EC) Discontinued 81 MG PO .every other day May 10, 2024 10:51am August 15, 2024 12:02pmStart: 02-28-2024 End: 26-19-2253Ktfecfk (Adult Low Dose Aspirin) 81 mg tablet,delayed release (DR/EC) Discontinued 81 MG PO Daily February 28, 2024 12:00am May 10, 2024 10:52am24 hr buPROPion hydrochloride 300 mg extended release oral tablet (20 sources)AminoketoneStart: 05-24-2024 End: 40-73-4585cowr 1 tablet by mouth once daily in the morningBupropion Hcl (Wellbutrin Xl) 300 mg tablet extended release 24 hr Discontinued 300 MG PO Every morning 90 90 June 19, 2024 11:20am December 20, 2024 11:19amStart: 02-28-2024 End: 85-77-3827zwls 1 tablet by mouth once dailyBupropion Hcl 150 mg tablet extended release 24 hr Discontinued 150 MG PO Daily February 28, 2024 12:00am May 24, 2024 10:46amStart: 02-28-2024 End: 57-67-4878lvvg 1 tablet by mouth once dailyBupropion Hcl 150 mg tablet extended release 24 hr Discontinued 150 MG PO Daily February 28, 2024 12:00am May 24, 2024 10:46amStart: 09-14-2023 End: 97-71-5474wgcd 1 tablet by mouth every twenty-four hours in the morning buPROPion XL (Wellbutrin XL) 150 MG 24 hr tablet Indications: Anxiety with depression TAKE 1 TABLETBY MOUTH IN THE MORNING DO NOT CRUSH, CHEW, OR SPLIT 30 tablet 11 05/18/2024 ActivebusPIRone hydrochloride 10 mg oral tablet (20 sources)Start: 08-31-2022 End: 63-33-2872bjaRNJgaf (BUSPAR) 10 mg tablet Take 10 mg by mouth. 08/31/2022 11/06/2024 Discontinuedchlorhexidine gluconate 1.2 mg/ml mouthwash (20 sources)Start: 09-28-2022 End: 34-21-4180Wpflocbwrpvxs Gluconate (PERIDEX) 0.12 % solution TAKE 15 ML IN MOUTH & SWISH FOR 30 SECONDS THEN SPIT OUT TWICE DAILY FOR 20 DAYS 09/28/2022 11/06/2024 DiscontinuedStart: 22-70-1714fvkjbpgvawnbo (PERIDEX) 0.12 % solution TAKE 15 ML IN MOUTH & SWISH FOR 30 SECONDS THEN SPIT OUT TWICE DAILY FOR 20 DAYS 0 09/28/2022 Activeclindamycin 300 mg oral capsule (16 sources)Lincosamide AntibacterialStart: 01-19-2024 End: 54-71-7479elsh 1 capsule by mouth four times daily at bedtimeclindamycin (CLEOCIN) 300 mg capsule TAKE 1 CAPSULE BY MOUTH FOUR TIMES DAILY (IN THE MORNING, at noon, IN THE EVENING, and BEFORE bedtime) FOR 10 DAYS 01/19/2024 11/06/2024 Discontinuedclobetasol propionate 0.5 mg/ml topical solution (1 source)CorticosteroidStart: 68-49-2430swapxdfqut Top 0.05% Kavya APPLY TO THE AFFECTED AREA (scalp) TWICE DAILY TUESDAY through TUESDAY; off the weekends; then repeat NEEDED Start Date: 06/11/25 Status: Ordered Medication Dispense Status:Completed Total Allowed Fills: 1 Fills Dispensed: 0diclofenac sodium 75 mg delayed release oral tablet (20 sources)Nonsteroidal Anti-inflammatory DrugStart: 03-28-2024 End: 07-86-7964ohit 1 tablet by mouth every twelve hoursdiclofenac, EC, (VOLTAREN) 75 mg EC tablet Take 1 tablet by mouth every 12 hours. 03/28/2024 11/06/2024 DiscontinuedStart: 03-14-2023 End: 56-21-1395xguw 1 tablet by mouth twice dailyDiclofenac Sodium 75 mg tablet,delayed release (DR/EC) Discontinued 75 MG PO Twice daily March 14, 2023 12:00am February 28, 2024 8:19amStart: 15-49-2646qrbgcwrcru (Voltaren) 75 MG EC tablet every 12 (twelve) hours 0 02/21/2023 ActivediphenhydrAMINE hydrochloride 50 mg oral capsule (20 sources)Histamine-1 Receptor AntagonistStart: 01-26-2023 End: 37-48-6812lcng 1 capsule by mouth once daily at bedtimeDiphenhydramine Hcl 50 mg Capsule Discontinued 50 MG PO Daily at bedtime March 14, 2023 12:00am 2023 1:22pmdiphenhydramine HCl (UNISOM, DIPHENHYDRAMINE, ORAL) Take 50 mg by mouth. 0 ActiveDuloxetine 40 mg capsule,delayed release(DR/EC) (1 source)Start: 12-11-2024 End: 47-95-4811nqvx 1 capsule by mouth once dailyDuloxetine 40 mg capsule,delayed release(DR/EC) Discontinued 0 .ROUTE .COMPLEX 90 December 11, 2024 7:47am December 17, 2024 3:12pm TAKE 1 CAPSULE BY MOUTH DAILY0.4 ml enoxaparin sodium 100 mg/ml prefilled syringe (8 sources)Low Molecular Weight HeparinStart: 12-20-2024 End: 54-22-0326rihotz 40 mg by subcutaneous injection twice dailyEnoxaparin 40 mg/0.4 mL syringe Discontinued 40 MG SUBCUT Twice daily December 20, 2024 12:00am February 26, 2025 10:11amStart: 11-27-2024 End: 13-02-9448vmcktw 40 mg by subcutaneous injection every twelve hours enoxaparin (LOVENOX) 40 mg/0.4 mL Inject 0.4 mL subcutaneously every 12 hours. 24 mL 11/27/2024 1:46 PM EDT 11/27/2024 12/27/2024 Activeescitalopram 10 mg oral tablet (20 sources)Serotonin Reuptake InhibitorStart: 01-26-2023 End: 72-43-2042kvrh 1 tablet by mouth once dailyEscitalopram Oxalate 10 mg tablet Discontinued 10 MG PO Daily 90 February 28, 2024 1:45pm May 24, 2024 10:47amtake 1 tablet by mouth every twenty-four hoursEscitalopram Oxalate 5 MG 1 tablet Orally Once a day Activeferrous sulfate 134 mg oral tablet (20 sources)Start: 03-14-2023 End: 32-59-1295yzar 1 tablet by mouth once dailyFerrous Sulfate 27 mg iron Tablet Discontinued 27 MG PO Daily March 14, 2023 12:00am February 28, 2024 8:19am End: 32-38-2871wdlwofl sulfate 325 mg (65 mg iron) EC tablet Take 325 mg by mouth. 11/06/2024 Discontinuedtake 1 tablet by mouth three times weeklyIron 325 (65 Fe) MG 1 tablet Orally Three times a Week Activefluocinonide 0.5 mg/ml topical solution (20 sources)CorticosteroidStart: 09-25-2022 End: 11-94-9102Kwhfmibrfcsd 0.05 % solution Discontinued 1 APPLIC TOPICAL every other day 60 30 February 28, 2024 1:55pm June 11, 2024 12:02pmfluocinonide (LIDEX) 0.05 % external solution APPLY TO THE AFFECTED AREA(S) topically DAILY ActivehydrOXYzine pamoate 25 mg oral capsule (20 sources)AntihistamineStart: 10-14-2022 End: 33-44-0474ocal 1 capsule by mouth every twelve hours as neededhydrOXYzine pamoate (VISTARIL) 25 mg capsule Take 1 capsule by mouth two times a day as needed. 10/14/2022 11/06/2024 Discontinuedmeloxicam 15 mg oral tablet (14 sources)Nonsteroidal Anti-inflammatory DrugStart: 07-10-2024 End: 26-33-8547uqiv 1 tablet by mouth once dailymeloxicam (MOBIC) 15 mg tablet Take 15 mg by mouth once daily. 07/10/2024 11/30/2024 Discontinued (Discontinued by Patient)omeprazole 40 mg delayed release oral capsule (20 sources)Proton Pump InhibitorStart: 08-28-2024 End: 89-22-3666xbox 1 capsule by mouth once dailyOmeprazole 40 mg capsule,delayed release(DR/EC) Discontinued 0 .ROUTE .COMPLEX 90 August 28, 2024 1:01pm February 26, 2025 10:12am TAKE 1 CAPSULE BY MOUTH DAILYStart: 01-26-2023 End: 39-03-2564izqb 1 capsule by mouth twice dailyOmeprazole 40 mg capsule,delayed release(DR/EC) Discontinued 40 MG PO Twice daily 60 July 24, 2024 12:10pm August 28, 2024 1:01pmStart: 01-26-2023 End: 12-44-1628pwps 1 capsule by mouth once dailyOmeprazole 40 mg capsule,delayed release(DR/EC) Discontinued 40 MG PO Daily March 14, 2023 12:00am June 11, 2024 12:02pmSemaglutide (4 sources)Start: 08-15-2024 End: 10-56-1782Rjoyxiakuwm (Ozempic) 0.25 mg or 0.5 mg (2 mg/3 mL) pen injector Discontinued 0.25 MG SUBCUT every week 3 August 15, 2024 1:00am September 14, 2024 12:33pm for 4 weeksStart: 08-15-2024 End: 41-88-0497Fwpamjlwsve (Ozempic) 0.25 mg or 0.5 mg (2 mg/3 mL) pen injector Discontinued 0.25 MG SUBCUT every week August 15, 2024 12:00am September 14, 2024 11:33am for 4 weeksStart: 87-07-0129Zzinwebzecy (Ozempic) 0.25 mg or 0.5 mg (2 mg/3 mL) pen injector Active 0.25 MG SUBCUT every week 2024 12:00am for 4 weekssertraline 100 mg oral tablet (20 sources)Serotonin Reuptake InhibitorStart: 10-14-2022 End: 29-38-7831ckswgmudbd (ZOLOFT) 100 mg tablet Take 100 mg by mouth. 10/14/2022 11/06/2024 DiscontinuedtiZANidine 4 mg oral tablet (11 sources)Central alpha-2 Adrenergic AgonistStart: 03-14-2023 End: 99-08-5417Pyjozxmsel 4 mg tablet Discontinued 4 MG PO As Directed as needed for Pain March 14, 2023 12:00am February 28, 2024 8:19amtraMADol hydrochloride 50 mg oral tablet (8 sources)Opioid AgonistStart: 12-20-2024 End: 07-11-3364ohow 1 tablet by mouth twice daily as [...] anxiety; Translations: [Adjustment disorder with anxious mood]Onset: 31-08-1375KtxbunzDlqzzbukiztppm/social admission (1 source)Patient encounter status; Translations: [Dietary counseling and surveillance]51-80-7386NydrbyquEfaelph disorders (20 sources)Mixed anxiety and depressive disorder; Translations: [Other specified anxiety disorders]Onset: [id number] of urinary tract (7 sources)Ureteric stone; Translations: [Calculus of ureter]Onset: 01-26-2023 EpisodicCardiac and circulatory congenital anomalies (4 sources)Arteriovenous malformation of digestive system vessel; Translations: [Arteriovenous malformation]ChronicCardiac dysrhythmias (20 sources)Inappropriate sinus tachycardia; Translations: [Inappropriate sinus tachycardia]Onset: 874313-10-5406KtukadoGpngwcs dysrhythmias (19 sources)Tachycardia; Translations: [Tachycardia, unspecified]Onset: 751660-86-5818PpztoeriRttwrobltvkcv of surgical procedures or medical care (14 sources)Post-operative wound cellulitis; Translations: [Infection following a procedure, other surgical site, initial encounter]Onset: EpisodicDeficiency and other anemia (11 sources)Iron deficiency anemia, unspecified; Translations: [Iron deficiency anemia, unspecified]Onset: 81-84-3118RdrzgevzXxrjxjfnad and other anemia (20 sources)Iron deficiency anemia; Translations: [Iron deficiency anemia, unspecified]Onset: 075935-50-8719CapektadNtmhnhpt mellitus without complication (6 sources)Impaired fasting glycemia; Translations: [Impaired fasting glucose] 08-73-3071GhfhjszbIliqcbtfiikhau and diverticulitis (4 sources)Diverticular disease of colon; Translations: [Diverticulosis of intestine, part unspecified, without perforation or abscess without bleeding] ChronicEsophageal disorders (20 sources)Gastroesophageal reflux disease; Translations: [Gastro-esophageal reflux disease without esophagitis]Onset: 86-28-6391LzefvfgRmpikspfm hypertension (20 sources)Hypertensive disorder; Translations: [Essential (primary) hypertension]Onset: 180296-87-9006XazypziHwtio and electrolyte disorders (13 sources)Hypokalemia; Translations: [Hypokalemia]Onset: EpisodicGenitourinary symptoms and ill-defined conditions (2 sources)Unspecified symptoms and signs involving the genitourinary system; Translations: [Urinary symptoms ]Onset: 29-75-8803VkpydpubSwrukaro; including migraine (2 sources)Drqcerix68-63-9459GnvsqwvFvxauonafkmv complicating ; childbirth and the puerperium (12 sources)Pre-existing essential hypertension complicating , second trimester; Translations: [Unspecified pre-existing hypertension complicating , unspecified trimester]Onset: 825882-21-3043WzgouetNpvdzoqqliicf and screening for infectious disease (1 source)Encounter for screening for human immunodeficiency virus [HIV]; Translations: [ENCOUNTER FOR SCREENING FOR HIV]Onset: 57-28-9804Dxayfrmg Miscellaneous mental health disorders (1 source)Psychological and behavioral factors associated with disorders or diseases classified elsewhere; Translations: [Psychological factors affecting medical condition]Onset: 35-23-5469OlgwqlwUkhq disorders (20 sources)Depressive disorder; Translations: [Depression]25-88-1673QyenwfaVceb wounds of head; neck; and trunk (2 sources)Open wound of abdomen; Translations: [Unspecified open wound of abdominal wall, unspecified quadrant without penetration into peritoneal cavity, initial encounter]37-57-5904OltiignjLecen acquired deformities (1 source)Contracture of joint of left ankle; Translations: [Contracture, left ankle]45-03-2874McmjiknDtwrq aftercare (3 sources)Postoperative visit; Translations: [Encounter for other specified surgical aftercare]82-97-8069LsrwoydhHhenl aftercare (2 sources)Wound ; Translations: [Encounter for other specified surgical aftercare]00-72-7619PfnkyyrgQrmbp aftercare (2 sources)Encounter for other specified surgical aftercare; Translations: [Encounter for postoperative wound check]Onset: 76-54-0990CpgizauzMwyen complications of (2 sources)Obesity complicating , unspecified trimester; Translations: [Obesity complicating , unspecified trimester]Onset: 86-10-7335Bscxsom Other complications of (1 source)Supervision of elderly multigravida, second trimester; Translations: [Supervision of elderly multigravida, second trimester]Onset: 87-67-3671Awkwkasy Other complications of (1 source)Endocrine, nutritional and metabolic diseases complicating , unspecified trimester; Translations: [Endocrine, nutritional and metabolic diseases complicating , unspecified trimester]Onset: 68-04-9618Ovuuskrg Other complications of (2 sources)Malformation of placenta, unspecified, unspecified trimester; Translations: [Malformation of placenta, unspecified, unspecified trimester] Onset: 43-45-3757ZrycjrqpFugst connective tissue disease (4 sources)Pain of right lower leg; Translations: [Pain in right lower leg] 66-44-4372DpagjwqmFxgvc connective tissue disease (2 sources)Pain of right calf; Translations: [Pain in right lower leg]06-20-2024 EpisodicOther connective tissue disease (2 sources)Tendinitis of right posterior tibial tendon; Translations: [Posterior tibial tendinitis, right leg]79-79-6194SxifkmvxCoscr connective tissue disease (7 sources)Disorder of musculoskeletal system; Translations: [Other specified disorders of synovium, right ankle and foot]85-42-6714HsfazunePqacn endocrine disorders (2 sources)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; Translations: [Hypopituitarism]96-32-0073PftcpznJrfgw gastrointestinal disorders (1 source)Diarrhea, unspecifiedEpisodicOther gastrointestinal disorders (3 sources)History of bariatric surgical procedure; Translations: [Bariatric surgery status]09-01-5920TixkegbfHvmte gastrointestinal disorders (3 sources)History of bypass of stomach; Translations: [Bariatric surgery status]96-21-5281WsrzzhljWetib gastrointestinal disorders (3 sources)Bariatric surgery status; Translations: [Bariatric surgery status] Onset: 124047-17-0924MaycxwztYbauu gastrointestinal disorders (2 sources)Personal history of other diseases of the digestive system; Translations: [S/P hernia repair]Onset: 73-61-5040KqzqvzegUlpxo inflammatory condition of skin (17 sources)Psoriatic arthritis; Translations: [Arthropathic psoriasis, unspecified]Onset: 662848-80-6983UizxugkWsoir inflammatory condition of skin (1 source)Arthropathic psoriasis, unspecified; Translations: [Psoriatic arthritis (HCC)]Onset: 51-37-6503LwzalahCfqfg injuries and conditions due to external causes (6 sources)Injury of right ankle; Translations: [Unspecified injury of right ankle, initial encounter]15-32-6167SjhtxjqwRhwes injuries and conditions due to external causes (3 sources)Unspecified injury of right ankle, initial encounter; Translations: [Knee, leg, ankle, and foot injury]86-50-1789DezggovhWabhv lower respiratory disease (2 sources)Snoring; Translations: [Snoring]19-89-3722RjiwjinnXqudm nervous system disorders (2 sources)Poor concentration; Translations: [Attention and concentration deficit]96-87-4697YcdbsamBowfz nervous system disorders (2 sources)Disturbance of attention; Translations: [Attention and concentration deficit]04-23-8862UubxaxgTzaoh nervous system disorders (17 sources)Acute postoperative pain; Translations: [Other acute postprocedural pain]Onset: 741752-86-1132IdpiwyqgCvtlw nervous system disorders (1 source)Other acute postprocedural pain; Translations: [Acute postoperative pain]Onset: 87-71-7862NtdajdltPpnvu non-traumatic joint disorders (6 sources)Ankle pain; Translations: [Pain in right ankle and joints of right foot]28-34-6067SztiihvaNcaap non-traumatic joint disorders (3 sources)Pain in right ankle and joints of right foot; Translations: [Pain in joint, ankle and foot]16-87-5438QhculgyyVxbwi non-traumatic joint disorders (4 sources)Instability of joint of right ankle; Translations: [Other instability, right ankle]52-73-2942CztxbquvYemnz non-traumatic joint disorders (11 sources)Sinus tarsi syndrome of right ankle; Translations: [Pain in right ankle and joints of right foot]22-50-2122SiepdnttWzywp nutritional; endocrine; and metabolic disorders (10 sources)Morbid obesity; Translations: [Morbid (severe) obesity due to excess calories]Onset: 87-87-5803XpmxxdeAyhqi nutritional; endocrine; and metabolic disorders (20 sources)Body mass index 40+ - severely obese; Translations: [Body mass index (BMI) 40.0-44.9, adult]Onset: 87-53-4659JoqrzbzNuued nutritional; endocrine; and metabolic disorders (2 sources)Obese class EJY74-82-8136FgvacpoKmbhx nutritional; endocrine; and metabolic disorders (6 sources)Morbid (severe) obesity due to excess calories; Translations: [Morbid obesity]Onset: 480543-77-1447StpdqzuApbvb nutritional; endocrine; and metabolic disorders (17 sources)Insulin resistance; Translations: [Insulin resistance]Onset: 131495-27-2867ElitdepEbdhc nutritional; endocrine; and metabolic disorders (17 sources)Severe obesity; Translations: [Class 3 severe obesity without serious comorbidity with body mass index (BMI) of 40.0 to 44.9 in adult, unspecified obesity type (HCC)]Onset: 266630-15-1610NtjqjglXaief nutritional; endocrine; and metabolic disorders (13 sources)Hypophosphatemia; Translations: [Other disorders of phosphorus metabolism]Onset: 943001-47-4327PungxmiRkchq nutritional; endocrine; and metabolic disorders (2 sources)Body mass index (BMI) 40.0-44.9, adult; Translations: [Class 3 severe obesity without serious comorbidity with body mass index (BMI) of 40.0 to 44.9 in adult, unspecified obesity type (HCC)]Onset: 50-10-7864DlyryjvYgekj skin disorders (9 sources)Disorder of scalp; Translations: [Other skin changes]02-28-2024 EpisodicOther skin disorders (4 sources)Other skin changes; Translations: [Keratoderma, acquired]02-28-2024 EpisodicOther skin disorders (3 sources)Eruption; Translations: [Rash and other nonspecific skin eruption] EpisodicPrevious (2 sources)Maternal care for unspecified type scar from previous delivery; Translations: [Maternal care for unspecified type scar from previous delivery]Onset: 90-32-5017IpamsrxvVffjduaj codes; unclassified (1 source)Tobacco user; Translations: [Tobacco use]Onset: 08-50-6147Jphrvzvs Residual codes; unclassified (2 sources)Nicotine-filled electronic cigarette wgxu01-61-8835JandjvzeHwgouzkp codes; unclassified (1 source)History of sleeve gastrectomy; Translations: [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]]29-48-8998QbwjznimCprqpwhp codes; unclassified (19 sources)History of hernia repair; Translations: [Other specified postprocedural states]Onset: 386644-25-7010ChjmmmpaSivwkvan codes; unclassified (2 sources)Other specified postprocedural states; Translations: [S/P hernia repair]Onset: 83-42-0970JypkrfgxVgxscis and strains (2 sources)Sprain of right ankle; Translations: [Sprain of unspecified ligament of right ankle, sequela]83-43-2171UgqvnrshLkzqgjqti-related disorders (2 sources)Nicotine dependence, unspecified, in remission; Translations: [Personal history of tobacco use]Onset: 433753-23-7763GkqlzzgBguiuxm disorders (20 sources)Hypothyroidism, unspecified; Translations: [Hypothyroidism]Onset: 733885-52-4280ZgbyyqjLyjyaymskybz (20 sources)OB RemindersOnset: 524326-02-7695Wmgrqvnsebmx (1 source)Advanced Maternal AgeOnset: 93-99-5871Zemxlmqcznaw (1 source)Chronic HypertensionOnset: 27-01-2129Tuslrfkprfxp (3 sources)Preprocedural examination nyus54-44-8516Aucufcrqhysj (3 sources)Bariatric Surgery Care CompanionOnset: Unclassified (1 source)NO ATOT81-80-4125Ozopwnuuxdvl (1 source)Insulin resistance; Translations: [Insulin resistance]Onset: 70-01-1289Apklrihuiwsc (1 source)Class 3 severe obesity without serious comorbidity with body mass index (BMI) of 40.0 to 44.9 in adult, unspecified obesity type (HCC); Translations: [Class 3 severe obesity without serious comorbidity with body mass index (BMI) of 40.0 to 44.9 in adult, unspecified obesity type (HCC)]Onset: 71-42-4249Kmbaqlapvrpp (1 source)R21 - Rash and other nonspecific skin eruptionUnclassified (1 source)R41.840 - Attention and concentration deficit,F33.2 - Major depressive disorder, recurrent severe without psychotic features Past or Other Problems Problem ClassificationProblemDateDocumented DateEpisodic/ChronicDeficiency and other anemia (1 source)Other iron deficiency anemias; Translations: [Other iron deficiency anemia]Onset: 77-34-8988AbbyyyodQjitukt and fatigue (3 sources)Fatigue; Translations: [Other fatigue]Onset: EpisodicOther complications of (1 source)Multigravida of advanced maternal age; Translations: [Supervision of elderly multigravida, second trimester]60-35-7293MjqpqixaPzlku complications of (1 source)Hypothyroidism in ; Translations: [Endocrine, nutritional and metabolic diseases complicating , unspecified trimester]09-22-2023 EpisodicOther lower respiratory disease (1 source)Snoring; Translations: [Snoring]Onset: 33-78-6261GyxummjsGtsgm and delivery including normal (20 sources)Second trimester ; Translations: [Encounter for supervision of normal , unspecified, second trimester]Onset: 08-18-2023 Resolved: 907670-42-5443RfxzcinwWypvr screening for suspected conditions (not mental disorders or infectious disease) (20 sources)Encounter for screening for cardiovascular disorders; Translations: [Encounter for screening for nutritional disorder]Onset: EpisodicResidual codes; unclassified (1 source)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]; Translations: [ACQUIRED ABSENCE OF STOMACH]Onset: 81-55-7509SrztrtprZmsejnvjuvak (1 source)History of hernia syyxxg46-92-5296Edinnloricxd (1 source)Flank pain, bilateralOnset: 06-11-2025 Results Test NameValueInterpretationReference RangeFacilityUrology Office/Clinic Noteon 68-10-7669Xrvkyfd Office/Clinic NoteUrology Office/Clinic Note Chief Complaint frequency, [...] Urnls Dip Stick Auto w/o Microscopy POC 27594 2. Bilateral flank pain (R10.A3: Flank pain, [...] questions answered. -Obtain YAMILE[facility] KUB at [facility], call pt w/ results -If renal [...] Hx of gastric bypass in 2016 in [place]. Has had diarrhea since she had her [...] analysis 01/26/23 - CaOx Di - 30%, Pinal 70% Denies gross hematuria or stone events [...] -See #2 -90oz of water daily, add lemon/[place] -Moderate animal protein, increase fruits and vegetables -Limit salt intake Ordered: Urine Culture Urnls Dip Stick Auto w/o Microscopy POC 64137 Follow-up With When Contact Information Bárbara Nguyen PA-C, URL Additional Instructions: F/up pending results Patient Education Kidney Stones, Thin-eu-Gwbk Flank Pain, Adult Urinary Tract Infection, Adult [...] 6 mg oral tab (more content not included)...[facility] HospitalComment on above:Result Comment: Electronically Signed By: Wendy MCNAMARA, Bárbara\.br\Date and Time Signed: 06/11/25 15:41 ESTCNPNon 31-32-0311LIYC Telephone (GENHARLAN) TIFFANI ALLISON ([id number]) 1985 F Date Time Provider Department 01/25/25 KHOA SILVEIRA During your visit today, we recorded the following information about you: Khoa Silveira, BRENDA.CHIEF SUPPLY CHAIN OFFICER 01/25/2025 11:30 AM Signed Spoke with Tiffani [...] for abdominal (neuropathic) pain. Khoa Silveira, MSN, FORM MAKER PLASTER, FIELD PARTY MANAGER-C January 25, 2025 11:30 AM Allergies As of Date: 01/25/2025 Noted Allergy Reaction PENICILLINS 10/26/2022 10 - Anaphylaxis 3 - Cough 4 - Hives 9 - Itching 2 - Rash 12 - Shortness of Breath 7 - Swelling 16 - Unknown Comments: Other Reaction(s): throat swelling and hives TOPIRAMATE 01/04/2023 5 - Intolerance Comments: Other Reaction(s): seizures Date Reviewed: 12/28/2024 Reviewed by: [place], Shireen M - Fully Assessed Reason for [...] [T81*11/27/2024 Encounter Status:Closed by KHOA SILVEIRA on 01/25/25[facility] 25-85-9445RINQHaequb Visit (GENALIYAHN) TIFFANI ALLISON ([id number]) 1985 F Date Time Provider Department 12/28/24 [...] dry Temperature: No Drains: No Khoa Silveira APRN.CHIEF SUPPLY CHAIN OFFICER 12/28/2024 11:27 AM Signed [facility] Clinic Date: December 28, [...] concerns with healing wound Khoa Silveira, MSN, CHIEF SUPPLY CHAIN OFFICER December 28, 2024 Referring Provider: ROCIO JEFF [[id number]] Allergies As of Date: 12/28/2024 Noted Allergy Reaction PENICILLINS 10/26/2022 10 - Anaphylaxis 3 - Cough 4 - Hives 9 - Itching 2 - Rash 12 - Shortness of Breath 7 - Swelling 16 - Unknown Comments: Other Reaction(s): throat swelling and hives TOPIRAMATE (more content not included)...NormalAkron Children's HospitalOV 03-26-3315RFLPFavxlp Visit (GENMary) TIFFANI ALLISON ([id number]) 1985 F Date Time Provider Department 12/14/24 [...] Khoa Silveira APRN.CNP 12/14/2024 3:25 PM Signed [facility] Clinic Date: December 14, [...] from 6.4 cm (more content not included)...Normal [facility] HospitalPNon 33-58-0613AGUBLlmvgllab (JENNIFERI) TIFFANI ALLISON ([id number]) 1985 F Date Time Provider Department 12/06/24 [...] appt. Reminded patient of how to reach [facility] or their surgeons office. Patient reminded to seek medical attention if they develop chest pain, a sudden onset of shortness of breath or persistent pain in the calf of their legs - BEST TO ALWAYS present to [facility] hospital where you had your surgery Patient verbalized understanding of all advice and instructions given. Kristi Watts RN [facility] COORDINATION TELEPHONE ENCOUNTER 2nd attempt [...] [T81*11/27/2024 Encounter Status:Closed by KRISTI WATTS on 12/06/24[facility] 41-46-7573HZQZVuwzrj Visit [facility] TIFFANI ALLISON ([id number]) 1985 F Date Time Provider Department 12/05/24 [...] blood Temperature: No Drains: Yes Khoa Lux APRN.CHIEF SUPPLY CHAIN OFFICER 12/05/2024 1:10 PM Signed [facility] Clinic Date: December 05, [...] muscle spasms. No fev (more content not included)...NormalClinton Memorial HospitalCNPNon 46-59-0576QDYGXrgqdlsxz (BMI) TIFFANI ALLISON ([id number]) 1985 F Date Time Provider Department 12/05/24 [...] Assessed Reason for Visit: Post Op Call [[id number]] Prescriptions as of 12/05/2024 - methocarbamol (ROBAXIN) [...] [T81*11/27/2024 Encounter Status:Closed by KRISTI WATTS on 12/05/24[facility] panel[facility] 21-85-6270Ofopu gap [Moles/Vol]11 mmol/L Normal8-15[facility] on above:Order Comment: Specimen Type: BLOOD SPECIMEN Ordering Facility: [facility] Address: [address] [place], [place] [address]Performed By: #### 58566-5, 27701-29, #### [facility] CLIA [id number] [address] [place] [address] [place] AMERICACalcium [Mass/Vol]8.6 mg/dL Normal8.5-10.2CVan [facility] on above:Order Comment: Specimen Type: BLOOD SPECIMEN Ordering Facility: [facility] Address: [address] [place], [place] [address]Performed By: #### 06354-3, 27701-29, #### [facility] CLIA [id number] [address] [place] [address] [place] AMERICAChloride [Moles/Vol]101 mmol/HKekuhl92-890QehszzjeuTr[facility] on above:Order Comment: Specimen Type: BLOOD SPECIMEN Ordering Facility: [facility] Address: [address] [place], [place] [address]Performed By: #### 70671-5, 2776-08, #### [facility] CLIA [id number] [address] [place] [address] [place] AMERICACO2 [Moles/Vol]28 mmol/L Cinosz55-24VkosefsxjTrinity Health System [facility] on above:Order Comment: Specimen Type: BLOOD SPECIMEN Ordering Facility: [facility] Address: [address] [place], [place] [id number] By: #### 73327-8, 2776-08, #### [facility] CLIA [id number] [address] [place] [address] [place] AMERICACreatinine [Mass/Vol]0.63 mg/dLNormal0.58-0.96[facility] on above:Order Comment: Specimen Type: BLOOD SPECIMEN Ordering Facility: [facility] Address: [address] [place], [place] [id number] By: #### 33673-3, 2776-08, #### [facility] CLIA [id number] [address] [place] [address] [place] AMERICACreatinine and Glomerular filtration rate.predicted panel (S/P/Bld)117 mL/min/1.73m???Normal>=60[facility] on above:Order Comment: Specimen Type: BLOOD SPECIMEN Ordering Facility: [facility] Address: [address] [place], [place] [id number] Comment: Estimated Glomerular Filtration Rate (eGFR) is [...] not accurately reflect actual GFR.Performed By: #### 19004-4, 2776-08, #### [facility] CLIA [id number] [address] [place] [address] [place] AMERICAGlucose [Mass/Vol]85 mg/dL Cyinzq41-95HntzfaehjTrinity Health System [facility] on above:Order Comment: Specimen Type: BLOOD SPECIMEN Ordering Facility: [facility] Address: [address] [place] [address]Ouiywz Comment: The [place] Diabetes Association (ADA) provides guidance for cutoff [...] Standards of Medical Care in Diabetes 2016, [place] [employer] Association. Diabetes Care. 2016.39(Suppl 1).Performed By: #### 74189-7, 2776-08, #### [facility] CLIA [id number] [address] [place] [address] [place] AMERICAPotassium [Moles/Vol]3.4 mmol/LLow3.7-5.1CVan Wert County Hospital on above:Order Comment: Specimen Type: BLOOD SPECIMEN Ordering Facility: [facility] Address: [address] [place], [place] [address]Performed By: #### 80183-6, 2776-08, #### [facility] CLIA [id number] [address] [place] [address] [place] AMERICASodium [Moles/Vol]140 mmol/L Qmhxpt847-286QfbqrkjwcTrinity Health System [facility] on above:Order Comment: Specimen Type: BLOOD SPECIMEN Ordering Facility: [facility] Address: [address] [place], [place] [address]Performed By: #### 80105-7, 2776-08, #### [facility] CLIA [id number] [address] [place] [address] [place] AMERICAUrea nitrogen [Mass/Vol]6 mg/dLLow7-21[facility] on above:Order Comment: Specimen Type: BLOOD SPECIMEN Ordering Facility: [facility] Address: [address] [place], [place] [address]Performed By: #### 69705-1, 2777-1, 12706-0 #### [facility] CLIA [id number] [address] [place] [address] [place] AMERICACB W Auto Differential panel (Bld)on 70-08-1533Clnpsiqzz (Bld) [#/Vol]10*3/uLNormal<0.11CVan [facility]ert [facility] on above:Order Comment: Specimen Type: BLOOD SPECIMENOrdering Facility: [facility] Address:[address] [place], [place] [address]Performed By: #### 51875-3 ####[facility] LABCLIA [id number] [place] [address] [place] AMERICABasophils/100 WBC (Bld)0.2 %NormalTrinity Health System [facility] on above:Order Comment: Specimen Type: BLOOD SPECIMENOrdering Facility: [facility] Address:[address] [place], [place] [address]Performed By: #### 11796-0 ####[facility] LABCLIA [id number] [place] [address] [place] AMERICADifferential cell count method Nom (Bld)AutoNormalClevelCrystal Clinic Orthopedic Center on above:Order Comment: Specimen Type: BLOOD SPECIMENOrdering Facility: [facility] Address:[address] [place], [place] [address]Performed By: #### 30730- 8 ####[facility] LABCLIA [id number] [place] [id number] [place] AMERICAEosinophils (Bld) [#/Vol]0.23 10*3/uLNormal<0.46[facility] on above:Order Comment: Specimen Type: BLOOD SPECIMENOrdering Facility: [facility] Address:[address] [place], [place] [address]Performed By: #### 02215-6 ####[facility] LABCLIA [id number] [place] [address] [place] AMERICAEosinophils/100 WBC (Bld)2.8 % NormalTrinity Health System [facility] on above:Order Comment: Specimen Type: BLOOD SPECIMENOrdering Facility: [facility] Address:[address] [place], [place] [address]Performed By: #### 64469-0 ####[facility]IA [id number] [place] [address] [place] AMERICAErythrocyte distribution width (RBC) [Ratio]13.4 %Normal 11.5-15.0[facility] on above:Order Comment: Specimen Type: BLOOD SPECIMENOrdering Facility: [facility] Address:[address] [place], [place] [address]Performed By: #### 70302-2 ####[facility] [id number] [address] STATES OF AMERICAHematocrit (Bld) [Volume fraction]35.0 %Low36.0-46.0 [facility] on above:Order Comment: Specimen Type: BLOOD SPECIMENOrdering Facility: [facility] Address:[address] [place], [place] [address]Performed By: #### 27516-5 ####[facility]IA [id number] [place] [address] [place] AMERICAHemoglobin (Bld) [Mass/Vol]11.8 g/iWDdsrkq85.5-15.5CVan [facility]ert [facility] on above:Order Comment: Specimen Type: BLOOD SPECIMENOrdering Facility: [facility] Address:[address] [place], [place] [address]Performed By: #### 29588-4 ####[facility] LABIA [id number] [place] [address] [place] Immature granulocytes (Bld) [#/Vol]0.04 10*3/uLNormal<0.10[facility] on above:Order Comment: Specimen Type: BLOOD SPECIMENOrdering Facility: [facility] Address:[address] [place], [place] [address]Performed By: #### 57158-4 ####[facility] LABCLIA [id number] [place] [address] [place] Immature granulocytes/100 WBC (Bld)0.5 %NormalTrinity Health System [facility] on above:Order Comment: Specimen Type: BLOOD SPECIMENOrdering Facility: [facility] Address:[address] [place] [address] Performed By: #### 01423-7 ####[facility] LABCLIA [id number] [place] [address] [place] Lymphocytes (Bld) [#/Vol]1.67 10*3/uLNormal1.00-4.00[facility] Comment on above:Order Comment: Specimen Type: BLOOD SPECIMENOrdering Facility: [facility] Address:[address] [place] [address] Performed By: #### 72032-7 ####[facility] LABCLIA [id number] [place] [address] [place] Lymphocytes/100 WBC (Bld)20.5 %NormalTrinity Health System [facility] on above: Order Comment: Specimen Type: BLOOD SPECIMENOrdering Facility: [facility] Address:[address] [place], [place] [address]Performed By: #### 85236- 8 ####[facility] LABCLIA [id number] [place] [address] [place] AMERICAMCH (RBC) [Entitic mass]29.1 pg Feyoam25.0-34.0[facility] on above:Order Comment: Specimen Type: BLOOD SPECIMENOrdering Facility: [facility] Address:[address] [place], [place] [address]Performed By: #### 77342-6 ####[facility] LABIA [id number] [address] STREETMCHC (RBC) [Mass/Vol]33.7 g/dL Gynvie24.5-36.0[facility] on above:Order Comment: Specimen Type: BLOOD SPECIMENOrdering Facility: [facility] Address:[address] [place], [place] [address]Performed By: #### 03159-0 ####[facility] LABIA [id number] [address]ETMCV (RBC) [Entitic vol]86.2 fL Bikvmi05.0-100.0[facility] on above:Order Comment: Specimen Type: BLOOD SPECIMENOrdering Facility: [facility] Address:[address] [place], [place] [address]Performed By: #### 46222-9 ####[facility] [id number] [place] [address] [place] AMERICAMonocytes (Bld) [#/Vol]0.67 10*3/uLNormal<0.87[facility] on above:Order Comment: Specimen Type: BLOOD SPECIMENOrdering Facility: [facility] Address:[address] [place], [place] [address]Performed By: #### 24756-7 ####[facility] LABIA [id number] [place] [address] [place] AMERICAMonocytes/100 WBC (Bld)8.2 % NormalTrinity Health [facility] on above:Order Comment: Specimen Type: BLOOD SPECIMENOrdering Facility: [facility] Address:[address] [place], [place] [address]Performed By: #### 20305-3 ####[facility] LABIA [id number] [place] [address] [place] AMERICANeutrophils (Bld) [#/Vol]5.51 10*3/uLNormal1.45-7.50[facility] on above:Order Comment: Specimen Type: BLOOD SPECIMENOrdering Facility: [facility] Address:[address] [place], [place] [address]Performed By: #### 61212-9 ####[facility] LABCLIA [id number] [place] [address] [place] AMERICANeutrophils/100 WBC (Bld)67.8 %NormalTrinity Health System [facility] on above:Order Comment: Specimen Type: BLOOD SPECIMENOrdering Facility: [facility] Address:[address] [place] [address] Performed By: #### 51562-2 ####[facility] LABIA [id number] [place] [address] [place] Nucleated RBC (Bld) [#/Vol]10*3/uLNormal<0.01[facility] on above:Order Comment: Specimen Type: BLOOD SPECIMENOrdering Facility: [facility] Address:[address] [place] [address] Performed By: #### 13300-1 ####[facility] LABIA [id number] [place] [address] [place] Nucleated RBC/100 WBC (Bld) [Ratio]0.0 /100 WBCNormalCWilson Health Comment on above:Order Comment: Specimen Type: BLOOD SPECIMENOrdering Facility: [facility] Address:[address] [place] [address] Performed By: #### 66015-3 ####[facility] LABIA [id number] [place] [address] [place] Platelet mean volume (Bld) [Entitic vol]9.9 fLNormal9.0-12.7CVan [facility] on above:Order Comment: Specimen Type: BLOOD SPECIMENOrdering Facility: [facility] Address:[address] [place], [place] [address]Performed By: #### 48743-6 ####[facility] LABIA [id number] [address] Platelets (Bld) [#/Vol]280 10*3/nOIcwbez227-957DcbhjelmhTrinity Health System [facility] on above:Order Comment: Specimen Type: BLOOD SPECIMENOrdering Facility: [facility] Address:[address] [place] [address] Performed By: #### 92419-7 ####[facility] LABIA [id number] [address] RBC (Bld) [#/Vol]4.06 10*6/uLNormal3.90-5.20[facility] on above:Order Comment: Specimen Type: BLOOD SPECIMENOrdering Facility: [facility] Address:[address] [place], [place] [address]Performed By: #### 72118-6 ####[facility] LABIA [id number] [address]ETWBC (Bld) [#/Vol]8.14 10*3/uLNormal3.70-11.00[facility] on above:Order Comment: Specimen Type: BLOOD SPECIMENOrdering Facility: [facility] Address:[address] [place], [place] [address]Performed By: #### 77052-7 ####[facility] [id number] [place] [id number] [facility] HOSPITALCNDSon [id number] ID: [id number] Author: JAIMIE CHATTERJEE APRN.CHIEF SUPPLY CHAIN OFFICER Service: General Surgery Author Type: Nurse Practitioner [...] in the PACU and transferred [facility] for the remainder of her postoperative care. She was started on IV pain medications. Her hospital course is as follows: 11/24 - POD 1 - APMS consult for pain control. Advanced to phase II bariatric diet. Ramirez removed. 11/25 - Ketamine gtt stopped. Tolerating diet. 11/26 - Weaning TESTING MANAGER today. 11/27 - Tolerating diet, pain controlled [...] results. CONSULTING TEAMS DURING HOSPITALIZATION: Bariatric surgery, [facility] Treatment Team: Attending Provider: Rocio Jeff MD Consulting: [facility]ITALMaryellen BARIATRIC SURGERY PATIENT CONDITION AT DISCHARGE: Stable [...] this medication, and follow (more content not included)...NormalGalion Community HospitalLTon 47-15-0050RXPGFTUVAQ ID: [id number] Author: YAN RANDALL MD Service: General Surgery Author Type: Resident Type: Consults Filed: 11/27/2024 07:30 Note Text: Bariatric Surgery Pager: [phone] SURGERY CONSULT PROGRESS NOTE Patient Name: Tiffani Allison Date: November 27, 2024 ASSESSMENT AND PLAN: Tiffani Allison is a 39 year old PMHx notable for GERD, recent smoker, hypothyroidism, prior sleeve gastrectomy and s/p laparoscopic PEHR and conversion to RYGB, with abdominal wall reconstruction on 11/23/24. Overall patient doing well in the immediate post op period. TESTING MANAGER is off, and pain slightly better controlled but using IV narcotic. Pending patient's pain toleration, okay to DC from Bariatric perspective. Recommendations: - Phase II diet - Wean TESTING MANAGER as able - Encourage protein shake intake - wean O2 as able - Monitor for diet toleration - continue lovenox - ambulation encouraged - IS and SCDs - okay to DC from bariatric perspective Appreciate hernia surgery team care. Plan of care discussed with staff. Yan Randall MD General Surgery Resident Bariatric Surgery Pager: [phone] On nights (6 pm to 6 am) and on Weekends/Holidays, please page the on-call pager: [phone] 7:21 AM, 11/27/2024 --- INTERVAL: No acute events overnight. TESTING MANAGER and ketamin off Tolerating 1.5 protein shakes [...] 8.5 8.0* -- Imaging Reviewed No new imaging.NormalClinton Memorial HospitalMagnesium SerPl-mCncon 11-27-2024 Magnesium [Mass/Vol]2.0 mg/dLNormal1.7-2.3CWilson HealthComment on above:Order Comment: Specimen Type: BLOOD SPECIMEN [facility] Address: [address] [place], [place] [address]Performed By: #### 70146-0, 2777-1, 33008-0 #### [facility] LAB CLIA [id number] [address] [place], [place] [address] [address] [place] AMERICAPhosphate SerPl-mCncon 32-40-6688Yomdjgssl [Mass/Vol]2.9 mg/dLNormal2.7-4.8CWilson Health Comment on above:Order Comment: Specimen Type: BLOOD SPECIMEN [facility] Address: [address] [place], [place] [address]Performed By: #### 25370-4, 2777-1, 79344-6 #### [facility] LAB CLIA [id number] [address] [place] [address] [address]ETTHERAPY NTon 11-27-2024 THERAPY NTHNO ID: [id number] Author: JESSI MALONEY OTR/Ajith Service: Occupational Therapy Author Type: Occupational Therapist Type: Therapy (PT/OT/Speech/Resp) Filed: 11/27/2024 08:13 Note Text: THERAPY COMMUNICATION NOTE SERVICE DATE: 11/27/2024 ROOM: [place] [id number] Physical therapy consult received. Chart reviewed. No [...] Allison DATE: November 27, 2024 TIME: 8:13 AMNormalClinton Memorial HospitalBasic metabolic 2000 panelon 92-24-7589Uufux gap [Moles/Vol]10 mmol/LNormal8-15[facility] Comment on above:Order Comment: Specimen Type: BLOOD SPECIMEN [facility] Address: [address] [place], [place] [address]Performed By: #### 27599-9, 27701-29, #### [facility] LAB CLIA [id number] [address] [place] [address] [place] AMERICACalcium [Mass/Vol]8.7 mg/dL Normal8.5-10.2CVan [facility] on above:Order Comment: Specimen Type: BLOOD SPECIMEN [facility] Address: [address] [place], [place] [address]Performed By: #### 25907-3, 27701-29, #### [facility] LAB CLIA [id number] [address] [place] [address] [place] AMERICAChloride [Moles/Vol]102 mmol/YMyzszx74-019JfarzbehdTrinity Health System [facility] on above:Order Comment: Specimen Type: BLOOD SPECIMEN [facility] Address: [address] [place], [place] [address]Performed By: #### 71278-5, 2776-08, #### [facility] LAB CLIA [id number] [address] [place] [address] [place] AMERICACO2 [Moles/Vol]28 mmol/L Ydkisj13-50NpiqzogtzTrinity Health System [facility] on above:Order Comment: Specimen Type: BLOOD SPECIMEN [facility] Address: [address] [place], [place] [address]Performed By: #### 20768-7, 2776-08, #### [facility] LAB CLIA [id number] [address] [place], [place] [address] [place] AMERICACreatinine [Mass/Vol]0.58 mg/dLNormal0.58-0.96[facility] on above:Order Comment: Specimen Type: BLOOD SPECIMEN [facility] Address: [address] [place], [place] [address]Performed By: #### 01502-3, 2777-, #### [facility] LAB CLIA [id number] [address] [place] [address] [place] AMERICACreatinine and Glomerular filtration rate.predicted panel (S/P/Bld)119 mL/min/1.73m???Normal>=60[facility] on above:Order Comment: Specimen Type: BLOOD SPECIMEN [facility] Address: [address] [place], [place] [address]Result Comment: Estimated Glomerular Filtration Rate (eGFR) is [...] not accurately reflect actual GFR.Performed By: #### 78519-8, 2777-, #### [facility] CLIA [id number] [address] [place] [address] [place] AMERICAGlucose [Mass/Vol]89 mg/dL Lelzmu06-81IwumxjpzmTrinity Health System [facility] on above:Order Comment: Specimen Type: BLOOD SPECIMEN [facility] Address: [address] [place], [place] [address]Result Comment: The [place] Diabetes Association (ADA) provides guidance for cutoff [...] Standards of Medical Care in Diabetes 2016, [place] Diabetes Association. Diabetes Care. 2016.39(Suppl 1).Performed By: #### 33594-6, 2776-08, #### [facility] CLIA [id number] [address] [place] [address] [place]APotassium [Moles/Vol]3.6 mmol/LLow3.7-5.1CVan [facility]ert [facility] Hospital on above:Order Comment: Specimen Type: BLOOD SPECIMEN [facility] Address: [address] [place], [place] [address]Performed By: #### 47612-1, 2776-08, #### [facility] [place] [id number] [address] [place] [address] [place]ICASodium [Moles/Vol]140 mmol/L Gsxmhl909-198PfoadkktfTrinity Health System [facility] on above:Order Comment: Specimen Type: BLOOD SPECIMEN [facility] Address: [address] [place], [place] [address]Performed By: #### 94563-4, 2776-08, #### [facility] [place] [id number] [address] [place] [address] [place] AMERICAUrea nitrogen [Mass/Vol]5 mg/dLLow7-21[facility] on above:Order Comment: Specimen Type: BLOOD SPECIMEN [facility] Address: [address] [place], [place] [address]Performed By: #### 21531-9, 2776-08, #### [facility] [place] [id number] [address] [place], [place] [address] [place] AMERICACB W Auto Differential panel (Bld)on 85-77-7457Ykjzsbwph (Bld) [#/Vol]0.03 10*3/uLNormal<0.11CVan [facility] on above:Order Comment: Specimen Type: BLOOD SPECIMEN [facility] Address: [address] [place], [place] [address]Performed By: #### 93850-9 #### [facility] CLIA [id number] [address] [place] [address] [place] AMERICABasophils/100 WBC (Bld)0.4 % NormalTrinity Health System [facility] on above:Order Comment: Specimen Type: BLOOD SPECIMEN [facility] Address: [address] [place], [place] [address]Performed By: #### 19416-4 #### [facility] CLIA [id number] [address] [place] [address] [place] AMERICADifferential cell count method Nom (Bld)AutoNormalCVan Wert County Hospital on above:Order Comment: Specimen Type: BLOOD SPECIMEN [facility] Address: [address] [place], [place] [address]Performed By: #### 85437-4 #### [facility] [place] [id number] [address] [place] [address] [place] AMERICAEosinophils (Bld) [#/Vol] 0.16 10*3/uLNormal<0.46[facility] on above:Order Comment: Specimen Type: BLOOD SPECIMEN [facility] Address: [address] [place], [place] [address]Performed By: #### 29555-5 #### [facility] CLIA [id number] [address] [place] [address] [place] AMERICAEosinophils/100 WBC (Bld)1.9 %NormalTrinity Health System [facility] on above:Order Comment: Specimen Type: BLOOD SPECIMEN [facility] Address: [address] [place], [place] [address]Performed By: #### 35907-1 #### [facility] CLIA [id number] [address] [place] [address] [place] AMERICAErythrocyte distribution width (RBC) [Ratio]13.5 %Lkjjqr44.5-15.0[facility] on above:Order Comment: Specimen Type: BLOOD SPECIMEN [facility] Address: [address] [place], [place] [address]Performed By: #### 98355-6 #### [facility] CLIA [id number] [address] [place] [address] [place] AMERICAHematocrit (Bld) [Volume fraction]36.6 %Suxdlp44.0-46.0[facility] on above:Order Comment: Specimen Type: BLOOD SPECIMEN [facility] Address: [address] [place], [place] [address]Performed By: #### 43939-3 #### [facility] CLIA [id number] [address] [place] [address] [place] AMERICAHemoglobin (Bld) [Mass/Vol] 12.3 g/sIKrefxs99.5-15.5CVan [facility]ert [facility] on above:Order Comment: Specimen Type: BLOOD SPECIMEN [facility] Address: [address] [place], [place] [address]Performed By: #### 14532-6 #### [facility] CLIA [id number] [address] [place] [address] [place] AMERICAImmature granulocytes (Bld) [#/Vol]0.03 10*3/uLNormal<0.10[facility] on above:Order Comment: Specimen Type: BLOOD SPECIMEN [facility] Address: [address] [place], [place] [address]Performed By: #### 49323-7 #### [facility] CLIA [id number] [address] [place] [address] [place] AMERICAImmature granulocytes/100 WBC (Bld)0.4 %NormalTrinity Health System [facility] on above:Order Comment: Specimen Type: BLOOD SPECIMEN [facility] Address: [address] [place], [place] [address]Performed By: #### 52617-2 #### [facility] CLIA [id number] [address] [place] [address] [place] AMERICALymphocytes (Bld) [#/Vol] 1.16 10*3/uLNormal1.00-4.00[facility] on above:Order Comment: Specimen Type: BLOOD SPECIMEN [facility] Address: [address] [place], [place] [address]Performed By: #### 20768-6 #### [facility] CLIA [id number] [address] [place] [address] [place] AMERICALymphocytes/100 WBC (Bld) 14.0 %NormalTrinity Health System [facility] on above:Order Comment: Specimen Type: BLOOD SPECIMEN [facility] Address: [address] [place], [place] [address]Performed By: #### 54665-7 #### [facility] CLIA [id number] [address] [place], [place] [address] [facility] OF AMERICAMCH (RBC) [Entitic mass]29.3 sdRjjgef51.0-34.0[facility] on above:Order Comment: Specimen Type: BLOOD SPECIMEN [facility] Address: [address] [place], [place] [address]Performed By: #### 91480-0 #### [facility] CLIA [id number] [address] [place], [place] [address] [facility] (RBC) [Mass/Vol]33.6 g/lJGapkla14.5-36.0[facility] on above:Order Comment: Specimen Type: BLOOD SPECIMEN [facility] Address: [address] [place], [place] [address]Performed By: #### 80120-2 #### [facility] CLIA [id number] [address] [place] [address] [place] AMERICAMCV (RBC) [Entitic vol]87.1 fKCdutxx22.0-100.0[facility] on above:Order Comment: Specimen Type: BLOOD SPECIMEN [facility] Address: [address] [place], [place] [address]Performed By: #### 67784-1 #### [facility] CLIA [id number] [address] [place] [address] [place] AMERICAMonocytes (Bld) [#/Vol]0.57 10*3/uLNormal<0.87[facility] on above:Order Comment: Specimen Type: BLOOD SPECIMEN [facility] Address: [address] [place], [place] [address]Performed By: #### 46186-7 #### [facility] CLIA [id number] [address] [place] [address] [place] AMERICAMonocytes/100 WBC (Bld)6.9 % NormalTrinity Health System [facility] on above:Order Comment: Specimen Type: BLOOD SPECIMEN [facility] Address: [address] [place], [place] [address]Performed By: #### 31654-2 #### [facility] CLIA [id number] [address] [place] [address] [place] AMERICANeutrophils (Bld) [#/Vol] 6.32 10*3/uLNormal1.45-7.50[facility] on above:Order Comment: Specimen Type: BLOOD SPECIMEN [facility] Address: [address] [place], [place] [address]Performed By: #### 99583-6 #### [facility] CLIA [id number] [address] [place] [address] [place] AMERICANeutrophils/100 WBC (Bld) 76.4 %NormalTrinity Health System [facility] on above:Order Comment: Specimen Type: BLOOD SPECIMEN [facility] Address: [address] [place], [place] [address]Performed By: #### 06273-7 #### [facility] CLIA [id number] [address] [place] [address] [place] AMERICANucleated RBC (Bld) [#/Vol] 10*3/uLNormal<0.01[facility] on above:Order Comment: Specimen Type: BLOOD SPECIMEN [facility] Address: [address] [place], [place] [address]Performed By: #### 07481-0 #### [facility] CLIA [id number] [address] [place] [address] [place] AMERICANucleated RBC/100 WBC (Bld) [Ratio]0.0 /100 WBCNormalCVan Wert [facility] Hospital on above:Order Comment: Specimen Type: BLOOD SPECIMEN [facility] Address: [address] [place], [place] [address]Performed By: #### [id number] #### [facility] CLIA [id number] [address] [place] [address] [place] AMERICAPlatelet mean volume (Bld) [Entitic vol]10.0 fLNormal9.0-12.7CVan [facility]ert [facility] on above: Order Comment: Specimen Type: BLOOD SPECIMEN Ordering Facility: [facility] Address: [address] [place], [place] [address]Performed By: #### [id number] #### [facility] CLIA [id number] [address] [place], [place] [id number] [place] AMER[place]APlatelets (Bld) [#/Vol]232 10*3/qNEnitbo927-419MgmbucxzzTrinity [facility] on above:Order Comment: Specimen Type: BLOOD SPECIMEN Ordering Facility: [facility] Address: [address] [place], [place] [address]Performed By: #### 86272-4 #### [facility] CLIA [id number] [address] [place], [place] [address]RB (Bld) [#/Vol]4.20 10*6/uLNormal3.90-5.20[facility] on above:Order Comment: Specimen Type: BLOOD SPECIMEN Ordering Facility: [facility] Address: [address] [place], [place] [address]Performed By: #### 49358-6 #### [facility] CLIA [id number] [address] [place], [place] [address]W (Bld) [#/Vol]8.27 10*3/uLNormal3.70-11.00[facility] on above:Order Comment: Specimen Type: BLOOD SPECIMEN Ordering Facility: [facility] Address: [address] [place], [place] [address]Performed By: #### 94872-3 #### [facility] IA [id number] [address] [place], [place] [address]CONSUAstra [facility] Center [id number] HNO ID: [id number] Author: YAN RANDALL MD Service: General Surgery Author Type: Resident Type: Consults Filed: 11/26/2024 07:25 Note Text: Attestation signed by Noel Fitzgerald MD at 11/26/2024 5:20 PM Bariatric Surgery Fellow Attestation: Progressing well from bariatric perspective, tolerating water and protein shakes. Still has decent amount of pain, ket drip stopped and plan to wean off TESTING MANAGER today, transition to orals only. Patient seen and examined with the resident team. Agree with the plan as stated. Bariatric Surgery Pager: [phone] SURGERY CONSULT PROGRESS NOTE Patient Name: Tiffani [...] gtt timed out but continues to use TESTING MANAGER heavily. Will continue MM pain control, and continued encouragement of protein intake. Recommendations: - Phase II diet - Wean TESTING MANAGER as able - Encourage protein shake intake - wean O2 as able - Monitor for diet toleration - continue lovenox - ambulation encouraged - IS and SCDs Appreciate hernia surgery team care. Plan of care discussed with staff. Yan Randall MD General Surgery Resident Bariatric Surgery Pager: [phone] On nights (6 pm to 6 am) and on Weekends/Holidays, please page the on-call pager: [phone] 7:23 AM, 11/26/2024 --- INTERVAL: No acute [...] 8.0* -- 8.3* Imaging Reviewed No new imaging.NormalClinton Memorial HospitalMagnesium SerPl-mCncon 11-26-2024 Magnesium [Mass/Vol]2.0 mg/dLNormal1.7-2.3CWilson HealthComment on above:Order Comment: Specimen Type: BLOOD SPECIMEN Ordering Facility: [facility] Address: [address] [place], [place] [address]Performed By: #### 93546-5, 2777-1, #### [facility] CLIA [id number] [address] [place] [address] [place] AMERICAPhosphate SerPl-mCncon 52-84-0911Saozabzdg [Mass/Vol]2.5 mg/dLLow2.7-4.8CWilson Health Comment on above:Order Comment: Specimen Type: BLOOD SPECIMEN Ordering Facility: [facility] Address: [address] [place], [place] [address]Performed By: #### 17003-9, 2777-, #### [facility] CLIA [id number] [address] [place] [address] [place] AMERICABasic metabolic 2000 panelon 74-62-2241Xlhxb gap [Moles/Vol]8 mmol/LNormal8-15[facility] Comment on above:Order Comment: Specimen Type: BLOOD SPECIMEN Ordering Facility: [facility] Address: [address] [place] [address]Xtrijjbzi By: #### 25542-6, 2776-08, #### [facility] CLIA [id number] [address] [place] [address] [place] AMERICACalcium [Mass/Vol]8.5 mg/dL Normal8.5-10.2CVan [facility]ert [facility] on above:Order Comment: Specimen Type: BLOOD SPECIMEN Ordering Facility: [facility] Address: [address] [place] [address]Cnsqkcadu By: #### 84945-2, 2776-08, #### [facility] CLIA [id number] [address] [place] [address] [place] AMERICAChloride [Moles/Vol]106 mmol/UWixfzk76-254BgcujviloTrinity Health System [facility] on above:Order Comment: Specimen Type: BLOOD SPECIMEN Ordering Facility: [facility] Address: [address] [place] [address]Pctaajmid By: #### 41589-3, 2776-08, #### [facility] CLIA [id number] [address] [place] [address] [place] AMERICACO2 [Moles/Vol]27 mmol/L Pudsqk42-96ScnztbvjrTrinity Health System [facility] on above:Order Comment: Specimen Type: BLOOD SPECIMEN Ordering Facility: [facility] Address: [address] [place] [address]Gyvhaegxc By: #### 52389-6, 2776-08, #### [facility] CLIA [id number] [address] [place] [address] [place] AMERICACreatinine [Mass/Vol]0.53 mg/dLLow0.58-0.96[facility] on above:Order Comment: Specimen Type: BLOOD SPECIMEN Ordering Facility: [facility] Address: [address] [place] [address]Kmbcbqhgw By: #### 27464-7, 2777-1, #### [facility] CLIA [id number] [address] [place] [address] [place] AMERICACreatinine and Glomerular filtration rate.predicted panel (S/P/Bld)122 mL/min/1.73m???Normal>=60[facility] on above:Order Comment: Specimen Type: BLOOD SPECIMEN Ordering Facility: [facility] Address: [address] [place], [place] [address]Result Comment: Estimated Glomerular Filtration Rate (eGFR) is [...] not accurately reflect actual GFR.Performed By: #### 56186-0, 2777, #### [facility] CLIA [id number] [address] [place], [place] [address] [place] AMERICAGlucose [Mass/Vol]96 mg/dL Gfaxvr88-38TuxissgvlTrinity Health System [facility] on above:Order Comment: Specimen Type: BLOOD SPECIMEN Ordering Facility: [facility] Address: [address] [place] [address]Weihzk Comment: The [place] Diabetes Association (ADA) provides guidance for cutoff [...] Standards of Medical Care in Diabetes 2016, [place] [employer] Association. Diabetes Care. 2016.39(Suppl 1).Performed By: #### 51973-7, 2776-, #### [facility] CLIA [id number] [address] [place] [address] [place] AMERICAPotassium [Moles/Vol]4.1 mmol/LNormal3.7-5.1CVan [facility]ert [facility] Hospital on above:Order Comment: Specimen Type: BLOOD SPECIMEN Ordering Facility: [facility] Address: [address] [place], [place] [address]Performed By: #### 28025-2, 2776-, #### [facility] CLIA [id number] [address] [place] [address] [place] AMERICASodium [Moles/Vol]141 mmol/L Rvjqwg638-006XopzcmyrsTrinity Health System [facility] on above:Order Comment: Specimen Type: BLOOD SPECIMEN Ordering Facility: [facility] Address: [address] [place], [place] [address]Performed By: #### 12225-3, 2776-08, #### [facility] CLIA [id number] [address] [place] [address] [place] AMERICAUrea nitrogen [Mass/Vol]5 mg/dLLow7-21[facility] on above:Order Comment: Specimen Type: BLOOD SPECIMEN Ordering Facility: [facility] Address: [address] [place], [place] [address]Performed By: #### 60480-6, 2776-08, #### [facility] CLIA [id number] [address] [place], [place] [address] [place] AMERICAAnion gap [Moles/Vol]8 mmol/LNormal8-15[facility] on above:Order Comment: Specimen Type: BLOOD SPECIMEN Ordering Facility: [facility] Address: [address] [place], [place] [address]Performed By: #### 06167-5, 98753- 2, 2776- #### [facility] CLIA [id number] [address] [place] [address] [place] AMERICACalcium [Mass/Vol]8.0 mg/dL Low8.5-10.2CVan [facility] on above:Order Comment: Specimen Type: BLOOD SPECIMEN Ordering Facility: [facility] Address: [address] [place], [place] [address]Performed By: #### 57392-3, 25268- 2, 277-1 #### [facility] CLIA [id number] [address] [place] [address] [place] AMERICAChloride [Moles/Vol]108 mmol/ODpif57-787RhwuirspqTrinity Health System [facility] on above:Order Comment: Specimen Type: BLOOD SPECIMEN Ordering Facility: [facility] Address: [address] [place], [place] [address]Performed By: #### 55469-1, 04946- 2, 277-1 #### [facility] CLIA [id number] [address] [place] [address] [place] AMERICACO2 [Moles/Vol]25 mmol/L Kedknv91-76YebknquxzTrinity Health System [facility] on above:Order Comment: Specimen Type: BLOOD SPECIMEN Ordering Facility: [facility] Address: [address] [place], [place] [address]Performed By: #### 08854-3, 39454- 2, 277-1 #### [facility] CLIA [id number] [address] [place] [address] [place] AMERICACreatinine [Mass/Vol]0.47 mg/dLLow0.58-0.96[facility] on above:Order Comment: Specimen Type: BLOOD SPECIMEN Ordering Facility: [facility] Address: [address] [place], [place] [address]Performed By: #### 84677-0, 97557- 2, 2777-1 #### [facility] CLIA [id number] [address] [place] [address] [place] AMERICACreatinine and Glomerular filtration rate.predicted panel (S/P/Bld)125 mL/min/1.73m???Normal>=60[facility] on above:Order Comment: Specimen Type: BLOOD SPECIMEN Ordering Facility: [facility] Address: [address] [place], [place] [address]Result Comment: Estimated Glomerular Filtration Rate (eGFR) is [...] not accurately reflect actual GFR.Performed By: #### 65260-0, 38301-5, 2776-1 #### [facility] CLIA [id number] [address] [place], [place] [address] [place] AMERICAGlucose [Mass/Vol]76 mg/dL Pheavg18-17CvminibunTrinity Health System [facility] on above:Order Comment: Specimen Type: BLOOD SPECIMEN Ordering Facility: [facility] Address: [address] [place], [place] [address]Result Comment: The [place] Diabetes Association (ADA) provides guidance for cutoff [...] Standards of Medical Care in Diabetes 2016, [place] [employer] Association. Diabetes Care. 2016.39(Suppl 1).Performed By: #### 75827-7, 85621- 2, 7-1 #### [facility] CLIA [id number] [address] [place], [place] [address] [place] AMERICAPotassium [Moles/Vol]6.7 mmol/LCritically high3.7-5.1CVan [facility]ert [facility] on above:Order Comment: Specimen Type: BLOOD SPECIMEN Ordering Facility: [facility] Address: [address] [place], [place] [address]Performed By: #### 54548-0, 64230- 2, 277-1 #### [facility] CLIA [id number] [address] [place] [address] [place] AMERICASodium [Moles/Vol]141 mmol/L Gijwod456-634RngqzsxuiTrinity Health System [facility] on above:Order Comment: Specimen Type: BLOOD SPECIMEN Ordering Facility: [facility] Address: [address] [place], [place] [address]Performed By: #### 66565-5, 08003- 2, 277- #### [facility] CLIA [id number] [address] [place] [address] [place] AMERICAUrea nitrogen [Mass/Vol]4 mg/dLLow7-21[facility] on above:Order Comment: Specimen Type: BLOOD SPECIMEN Ordering Facility: [facility] Address: [address] [place], [place] [address]Performed By: #### 00959-3, 51208- 2, 2776- #### [facility] CLIA [id number] [address] [place] [address] [place] AMERICACB W Auto Differential panel (Bld)on 75-31-2513Eqlytyeiu (Bld) [#/Vol]10*3/uLNormal<0.11CV[facility] on above:Order Comment: Specimen Type: BLOOD SPECIMEN Ordering Facility: [facility] Address: [address] [place], [place] [address]Performed By: #### 34812-1, 2777-1, 93558-4 #### [facility] CLIA [id number] [address] [place] [address] [place] AMERICABasophils/100 WBC (Bld)0.3 % NormalTrinity Health System [facility] on above:Order Comment: Specimen Type: BLOOD SPECIMEN Ordering Facility: [facility] Address: [address] [place], [place] [address]Performed By: #### 52167-2, 2776-08, #### [facility] CLIA [id number] [address] [place] [address] [place] AMERICADifferential cell count method Nom (Bld)AutoNormalCVan Wert County Hospital on above:Order Comment: Specimen Type: BLOOD SPECIMEN Ordering Facility: [facility] Address: [address] [place], [place] [address]Performed By: #### 74171-9, 2776-08, #### [facility] CLIA [id number] [address] [place] [address] [place] AMERICAEosinophils (Bld) [#/Vol] 0.11 10*3/uLNormal<0.46[facility] on above:Order Comment: Specimen Type: BLOOD SPECIMEN Ordering Facility: [facility] Address: [address] [place], [place] [address]Performed By: #### 23970-2, 2776-08, #### [facility] CLIA [id number] [address] [place] [address] [place] AMERICAEosinophils/100 WBC (Bld)1.4 %NormalTrinity Health System [facility] on above:Order Comment: Specimen Type: BLOOD SPECIMEN Ordering Facility: [facility] Address: [address] [place], [place] [address]Performed By: #### 49283-3, 2776-08, #### [facility] CLIA [id number] [address] [place], [place] [address] [place] AMERICAErythrocyte distribution width (RBC) [Ratio]13.9 %Lgphqu92.5-15.0[facility] on above:Order Comment: Specimen Type: BLOOD SPECIMEN Ordering Facility: [facility] Address: [address] [place], [place] [address]Performed By: #### 67984-2, 27701-29, #### [facility] CLIA [id number] [address] [place] [address] [place] AMERICAHematocrit (Bld) [Volume fraction]33.1 %Low36.0-46.0[facility] on above:Order Comment: Specimen Type: BLOOD SPECIMEN Ordering Facility: [facility] Address: [address] [place], [place] [address]Performed By: #### 22790-3, 27701-29, #### [facility] CLIA [id number] [address] [place] [address] [place] AMERICAHemoglobin (Bld) [Mass/Vol] 11.0 g/dLLow11.5-15.5CVan [facility] on above:Order Comment: Specimen Type: BLOOD SPECIMEN Ordering Facility: [facility] Address: [address] [place], [place] [address]Performed By: #### 25697-9, 2776-08, #### [facility] CLIA [id number] [address] [place] [address] [place] AMERICAImmature granulocytes (Bld) [#/Vol]0.03 10*3/uLNormal<0.10[facility] on above:Order Comment: Specimen Type: BLOOD SPECIMEN Ordering Facility: [facility] Address: [address] [place], [place] [address]Performed By: #### 96812-6, 2776-08, #### [facility] CLIA [id number] [address] [place], [place] [address] [place] AMERICAImmature granulocytes/100 WBC (Bld)0.4 %NormalTrinity Health System [facility] on above:Order Comment: Specimen Type: BLOOD SPECIMEN Ordering Facility: [facility] Address: [address] [place], [place] [address]Performed By: #### 82397-0, 2776-08, #### [facility] CLIA [id number] [address] [place], [place] [address] [place] AMERICALymphocytes (Bld) [#/Vol] 1.13 10*3/uLNormal1.00-4.00[facility] on above:Order Comment: Specimen Type: BLOOD SPECIMEN Ordering Facility: [facility] Address: [address] [place], [place] [address]Performed By: #### 27789-1, 2776-08, #### [facility] CLIA [id number] [address] [place] [address] [place] AMERICALymphocytes/100 WBC (Bld) 14.4 %NormalTrinity Health System [facility] on above:Order Comment: Specimen Type: BLOOD SPECIMEN Ordering Facility: [facility] Address: [address] [place], [place] [address]Performed By: #### 80713-5, 2776-08, #### [facility] CLIA [id number] [address] [place], [place] [address] [facility] (RBC) [Entitic mass]29.5 lbKwjdrr82.0-34.0[facility] on above:Order Comment: Specimen Type: BLOOD SPECIMEN Ordering Facility: [facility] Address: [address] [place], [place] [address]Performed By: #### 24032-9, 2776-08, #### [facility] CLIA [id number] [address] [place] [address] [facility] (RBC) [Mass/Vol]33.2 g/eGEhtraw29.5-36.0[facility] on above:Order Comment: Specimen Type: BLOOD SPECIMEN Ordering Facility: [facility] Address: [address] [place], [place] [address]Performed By: #### 61435-5, 2776-08, #### [facility] CLIA [id number] [address] [place] [address] [place] AMERICAMCV (RBC) [Entitic vol]88.7 bRLmvoad60.0-100.0[facility] on above:Order Comment: Specimen Type: BLOOD SPECIMEN Ordering Facility: [facility] Address: [address] [place], [place] [address]Performed By: #### 25689-5, 27701-29, #### [facility] CLIA [id number] [address] [place] [address] [place] AMERICAMonocytes (Bld) [#/Vol]0.62 10*3/uLNormal<0.87[facility] on above:Order Comment: Specimen Type: BLOOD SPECIMEN Ordering Facility: [facility] Address: [address] [place], [place] [address]Performed By: #### 87232-4, 2776-08, #### [facility] CLIA [id number] [address] [place], [place] [address] [place] AMERICAMonocytes/100 WBC (Bld)7.9 % NormalTrinity Health System [facility] on above:Order Comment: Specimen Type: BLOOD SPECIMEN Ordering Facility: [facility] Address: [address] [place], [place] [address]Performed By: #### 04789-8, 2776-08, #### [facility] CLIA [id number] [address] [place], [place] [address] [place] AMERICANeutrophils (Bld) [#/Vol] 5.93 10*3/uLNormal1.45-7.50[facility] on above:Order Comment: Specimen Type: BLOOD SPECIMEN Ordering Facility: [facility] Address: [address] [place], [place] [address]Performed By: #### 27710-4, 2776-08, #### [facility] CLIA [id number] [address] [place], [place] [address] [place] AMERICANeutrophils/100 WBC (Bld) 75.6 %NormalTrinity Health System [facility] on above:Order Comment: Specimen Type: BLOOD SPECIMEN Ordering Facility: [facility] Address: [address] [place], [place] [address]Performed By: #### 91729-2, 27701-29, #### [facility] CLIA [id number] [address] [place] [address] [place] AMERICANucleated RBC (Bld) [#/Vol] 10*3/uLNormal<0.01[facility] on above:Order Comment: Specimen Type: BLOOD SPECIMEN Ordering Facility: [facility] Address: [address] [place], [place] [address]Performed By: #### 43802-0, 2776-08, #### [facility] CLIA [id number] [address] [place], [place] [address] [place] AMERICANucleated RBC/100 WBC (Bld) [Ratio]0.0 /100 WBCNormalCVan Wert [facility] Hospital on above:Order Comment: Specimen Type: BLOOD SPECIMEN Ordering Facility: [facility] Address: [address] [place], [place] [address]Performed By: #### 67263-4, 2776-08, #### [facility] CLIA [id number] [address] [place], [place] [address] [place] AMERICAPlatelet mean volume (Bld) [Entitic vol]10.2 fLNormal9.0-12.7CV[facility] on above: Order Comment: Specimen Type: BLOOD SPECIMEN Ordering Facility: [facility] Address: [address] [place], [place] [address]Performed By: #### 43642-7, 2777-1, #### [facility] CLIA [id number] [address] [place] [address] AMERICAPlatelets (Bld) [#/Vol]205 10*3/uYXnugfi955-809GscrsamqjTrinity Health System [facility] on above:Order Comment: Specimen Type: BLOOD SPECIMEN Ordering Facility: [facility] Address: [address] [place], [place] [address]Performed By: #### 01276-1, 2777-1, #### [facility] CLIA [id number] [address] [place], [place] [address] (Bld) [#/Vol]3.73 10*6/uLLow3.90-5.20[facility] on above:Order Comment: Specimen Type: BLOOD SPECIMEN Ordering Facility: [facility] Address: [address] [place], [place] [address]Performed By: #### 17657-4, 27701-29, #### [facility] CLIA [id number] [address] [place], [place] [address]WBC (Bld) [#/Vol]7.84 10*3/uLNormal3.70-11.00[facility] on above:Order Comment: Specimen Type: BLOOD SPECIMEN Ordering Facility: [facility] Address: [address] [place], [place] [address]Performed By: #### 17819-6, 2777-, #### [facility] CLIA [id number] [address] [place], [place] [address] [facility] AMERICACBC panel Auto (Bld)on [id number] distribution width (RBC) [Ratio]13.7 %Fgasjf00.5-15.0 [facility] on above:Order Comment: Specimen Type: BLOOD SPECIMEN Ordering Facility: [facility] Address: [address] [place], [place] [address]Performed By: #### 20568-2, 27701-29, #### [facility] CLIA [id number] [address] [place] [address] [place] AMERICAHematocrit (Bld) [Volume fraction]36.1 %Vokgez64.0-46.0[facility] on above:Order Comment: Specimen Type: BLOOD SPECIMEN Ordering Facility: [facility] Address: [address] [place], [place] [address]Performed By: #### 41230-9, 27701-29, #### [facility] CLIA [id number] [address] [place] [address] OF AMERICAHemoglobin (Bld) [Mass/Vol] 12.2 g/yLPjtxei34.5-15.5CVan [facility] on above:Order Comment: Specimen Type: BLOOD SPECIMEN Ordering Facility: [facility] Address: [address] [place], [place] [address]Performed By: #### 91657-7, 2776-08, #### [facility] CLIA [id number] [address] [place], [place] [address]MCH (RBC) [Entitic mass]29.3 ejIzvhtj96.0-34.0[facility] on above:Order Comment: Specimen Type: BLOOD SPECIMEN Ordering Facility: [facility] Address: [address] [place], [place] [address]Performed By: #### 11383-7, 27701-29, #### [facility] CLIA [id number] [address] [place] [address] (RBC) [Mass/Vol]33.8 g/hGBbqotv60.5-36.0[facility] on above:Order Comment: Specimen Type: BLOOD SPECIMEN Ordering Facility: [facility] Address: [address] [place], [place] [address]Performed By: #### 89679-0, 277-, #### [facility] CLIA [id number] [address] [place] [address] [place] AMERICAMCV (RBC) [Entitic vol]86.6 fXPgbbjk44.0-100.0[facility] on above:Order Comment: Specimen Type: BLOOD SPECIMEN Ordering Facility: [facility] Address: [address] [place], [place] [address]Performed By: #### 23297-0, 27701-29, #### [facility] CLIA [id number] [address] [place] [address] [place] AMERICANucleated RBC (Bld) [#/Vol] 10*3/uLNormal<0.01[facility] on above:Order Comment: Specimen Type: BLOOD SPECIMEN Ordering Facility: [facility] Address: [address] [place], [place] [address]Performed By: #### 47839-4, 2776-08, #### [facility] CLIA [id number] [address] [place] [address] [place] AMERICAPlatelet mean volume (Bld) [Entitic vol]9.6 fLNormal9.0-12.7CVan [facility] on above: Order Comment: Specimen Type: BLOOD SPECIMEN Ordering Facility: [facility] Address: [address] [place], [place] [address]Performed By: #### 72149-3, 27701-29, #### [facility] CLIA [id number] [address] [place] [address] [place] AMERICAPlatelets (Bld) [#/Vol]212 10*3/mRDogveu026-212QdbzdvhzjTrinity [facility] on above:Order Comment: Specimen Type: BLOOD SPECIMEN Ordering Facility: [facility] Address: [address] [place], [place] [address]Performed By: #### 05503-2, 2777-1, 59471-5 #### [facility] CLIA [id number] [address] [place], [place] [address]RBC (Bld) [#/Vol]4.17 10*6/uLNormal3.90-5.20[facility] on above:Order Comment: Specimen Type: BLOOD SPECIMEN Ordering Facility: [facility] Address: [address] [place], [place] [address]Performed By: #### 66322-7, 2777-1, 75027-8 #### [facility] CLIA [id number] [address] [place], [place] [id number] [facility] ([facility]) [#/Vol]8.65 10*3/uLNormal3.70-11.00[facility] on above:Order Comment: Specimen Type: BLOOD SPECIMEN Ordering Facility: [facility] Address: [address] [place], [place] [address]Performed By: #### 23374-8, 2777-1, #### [facility] CLIA [id number] [address] [place], [place] [address]CONSULTon [id number] HNO ID: [id number] Author: YAN RANDALL MD Service: General Surgery Author Type: Resident Type: Consults Filed: 11/25/2024 07:39 Note Text: Bariatric Surgery Pager: [phone] SURGERY CONSULT PROGRESS NOTE Patient Name: Tiffani [...] MD General Surgery Resident Bariatric Surgery Pager: [phone] On nights (6 pm to 6 am) and on Weekends/Holidays, please page the on-call pager: [phone] 7:37 AM, 11/25/2024 --- INTERVAL: No acute [...] CA -- 8.3* Imaging Reviewed No new imaging.NormalGalion Community HospitalLT PROGon [id number] PROGHNO ID: [id number] Author: JOSE MATTHEWS MD Service: Pain Management [...] IV Pain medications, PO Pain medications, and TESTING MANAGER bolus Patient Satisfied with Pain Control: No Overnight Pain Interventions: None ROS OPERATING ROOM MANAGER: Negative for headaches, negative for seizures, negative [...] (Ketalar) 0.3 mg/kg/hr (Adjusted) INTRAVENOUS CONTINUOUS fentaNYL TESTING MANAGER 20 mcg/mL in NaCl 0.9% 100 mL [...] 0943 -- 11/23/241999 vte pharmacologic prophylaxis contraindicated ([place]) 11/23/241999 pneumatic compression sleeve(s) ([place]) 11/23/241999 activity - mobilize patient ([place]) Assessment/Plan Morbid Obesity Class 3 Tiffani Allison is a 39 year old female who is being seen as described in the HPI above. Current Pain Medications Ordered: -fentanyl TESTING MANAGER 20 mcg/ml at -acetaminophen 1g q6h -hydromorphone 0.2mg q2h prn -oxycodone liquid 5-10mg q4h prn -ketamine gtt 0.3 mg/kg/hr x (more content not included)...NormalSt. Vincent Hospital COMPLETEon [id number] COMPLETEVentricular Rate : 71 BPM Atrial Rate : 71 BPM P-R Interval : 146 ms QRS Duration : 94 ms Q-T Interval : 402 ms QTC Calculation(Bazett) : 436 ms Calculated P [place] : 35 degrees Calculated R [place] : 29 degrees Calculated T [place] : 13 degrees NORMAL SINUS RHYTHM NORMAL ECG Confirmed by DAMIEN ORTEGA MD (217) on 12/13/2024 7:31:45 AM NAME : TIFFANI ALLISON PID : [id number] : 1985 Gender : Female Race : ORD : [id number] Procedure Date : Nov 25 2024 11:40:55 Edit Date : Dec 13 2024 07:31:47 Diagnosis: NORMAL SINUS RHYTHM NORMAL ECG Confirmed by DAMIEN ORTEGA MD (217) on 12/13/2024 7:31:45 AM Test Reason : Hyperkalemia Location : 54 : 1 H051-32 Overread By : DAMIEN ORTEGA MD Edited By : DAMIEN ORTEGA MD Referred By : , Acquired by : Pura KAYEalCWilson HealthMagnesium SerPl-mCnc on 90-86-3744Nhomdplux [Mass/Vol]1.8 mg/dLNormal1.7-2.3CWilson HealthComment on above:Order Comment: Specimen Type: BLOOD SPECIMEN Ordering Facility: [facility] Address: [address] [place], [place] [address]Performed By: #### 56974-0, 96017- 2, 2777-1 #### [facility] CLIA [id number] [address] [place] [address] [place] AMERICAPhosphate SerPl-mCncon 44-56-9785Deoqtvpad [Mass/Vol]2.1 mg/dLLow2.7-4.8CWilson Health Comment on above:Order Comment: Specimen Type: BLOOD SPECIMEN Ordering Facility: [facility] Address: [address] [place], [place] [address]Performed By: #### 58270-0, 49922- 2, 2777-1 #### [facility] CLIA [id number] [address] [place] [address] [place] AMERICABasic metabolic 2000 panelon 72-55-2645Lwoyg gap [Moles/Vol]10 mmol/LNormal8-15[facility] Comment on above:Order Comment: Specimen Type: BLOOD SPECIMEN Ordering Facility: [facility] Address: [address] [place], [place] [address]Performed By: #### 29283-0, 277-, #### [facility] CLIA [id number] [address] [place] [address] [place] AMERICACalcium [Mass/Vol]8.3 mg/dL Low8.5-10.2CVan [facility] on above:Order Comment: Specimen Type: BLOOD SPECIMEN Ordering Facility: [facility] Address: [address] [place], [place] [address]Performed By: #### 40034-2, 27701-29, #### [facility] CLIA [id number] [address] [place] [address] [place] AMERICAChloride [Moles/Vol]108 mmol/PKzbv41-759OozbbeoymTr[facility] on above:Order Comment: Specimen Type: BLOOD SPECIMEN Ordering Facility: [facility] Address: [address] [place], [place] [address]Performed By: #### 35358-6, 27701-29, #### [facility] CLIA [id number] [address] [place] [address] [place] AMERICACO2 [Moles/Vol]24 mmol/L Aribpa54-74OffosixvdTrinity Health System [facility] on above:Order Comment: Specimen Type: BLOOD SPECIMEN Ordering Facility: [facility] Address: [address] [place] [id number] By: #### 69218-4, 2776-08, #### [facility] CLIA [id number] [address] [place], [place] [address] [place] AMERICACreatinine [Mass/Vol]0.59 mg/dLNormal0.58-0.96[facility] on above:Order Comment: Specimen Type: BLOOD SPECIMEN Ordering Facility: [facility] Address: [address] [place], [place] [address]Performed By: #### 38509-7, 2777-, #### [facility] CLIA [id number] [address] [place] [address] [place] AMERICACreatinine and Glomerular filtration rate.predicted panel (S/P/Bld)118 mL/min/1.73m???Normal>=60[facility] on above:Order Comment: Specimen Type: BLOOD SPECIMEN Ordering Facility: [facility] Address: [address] [place], [place] [address]Result Comment: Estimated Glomerular Filtration Rate (eGFR) is [...] not accurately reflect actual GFR.Performed By: #### 46192-8, 2777, #### [facility] CLIA [id number] [address] [place] [address] [place] AMERICAGlucose [Mass/Vol]97 mg/dL Vvxlvl59-65XctkqudgqTrinity Health System [facility] on above:Order Comment: Specimen Type: BLOOD SPECIMEN Ordering Facility: [facility] Address: [address] [place] [id number] Comment: The [place] Diabetes Association (ADA) provides guidance for cutoff [...] Standards of Medical Care in Diabetes 2016, [place] Diabetes Association. Diabetes Care. 2016.39(Suppl 1).Performed By: #### 15289-4, 27701-29, #### [facility] CLIA [id number] [address] [place] [address] [place] AMERICAPotassium [Moles/Vol]3.9 mmol/LNormal3.7-5.1CVan [facility] on above:Order Comment: Specimen Type: BLOOD SPECIMEN Ordering Facility: [facility] Address: [address] [place], [place] [address]Performed By: #### 09912-0, 27701-29, #### [facility] CLIA [id number] [address] [place] [address] [place] AMERICASodium [Moles/Vol]142 mmol/L Sjngoh131-048GkhhsjcgxTrinity Health System [facility] on above:Order Comment: Specimen Type: BLOOD SPECIMEN Ordering Facility: [facility] Address: [address] [place], [place] [address]Performed By: #### 97507-8, 27701-29, #### [facility] [place] [id number] [address] [place] [address] [place] AMERICAUrea nitrogen [Mass/Vol]6 mg/dLLow7-21[facility] on above:Order Comment: Specimen Type: BLOOD SPECIMEN Ordering Facility: [facility] Address: [address] [place], [place] [address]Performed By: #### 29602-7, 27701-29, #### [facility] [place] [id number] [address] [place], [place] [id number] [place] AMERICACB W Auto Differential panel (Bld)on 48-52-0828Zsoqmffvd (Bld) [#/Vol]10*3/uLNormal<0.11CVan [facility] on above:Order Comment: Specimen Type: BLOOD SPECIMEN Ordering Facility: [facility] Address: [address] [place], [place] [address]Performed By: #### 99219-6, 27701-29, #### [facility] CLIA [id number] [address] [place], [place] [address] [place] AMERICABasophils/100 WBC (Bld)0.2 % NormalTrinity Health System [facility] on above:Order Comment: Specimen Type: BLOOD SPECIMEN Ordering Facility: [facility] Address: [address] [place], [place] [address]Performed By: #### 25280-9, 27701-29, #### [facility] CLIA [id number] [address] [place], [place] [address] [place] AMERICADifferential cell count method Nom (Bld)AutoNormalCVan [facility] on above:Order Comment: Specimen Type: BLOOD SPECIMEN Ordering Facility: [facility] Address: [address] [place], [place] [address]Performed By: #### 70213-7, 2776-08, #### [facility] CLIA [id number] [address] [place] [address] [place] AMERICAEosinophils (Bld) [#/Vol] 10*3/uLNormal<0.46[facility] on above:Order Comment: Specimen Type: BLOOD SPECIMEN Ordering Facility: [facility] Address: [address] [place], [place] [address]Performed By: #### 49763-8, 2776-08, #### [facility] CLIA [id number] [address] [place], [place] [address] [place] AMERICAEosinophils/100 WBC (Bld)0.2 %NormalTrinity Health System [facility] on above:Order Comment: Specimen Type: BLOOD SPECIMEN Ordering Facility: [facility] Address: [address] [place], [place] [address]Performed By: #### 38496-4, 27701-29, #### [facility] CLIA [id number] [address] [place] [address] [place] AMERICAErythrocyte distribution width (RBC) [Ratio]13.6 %Yrffrg01.5-15.0[facility] on above:Order Comment: Specimen Type: BLOOD SPECIMEN Ordering Facility: [facility] Address: [address] [place], [place] [address]Performed By: #### 55086-3, 2777-1, #### [facility] CLIA [id number] [address] [place] [address] [place] AMERICAHematocrit (Bld) [Volume fraction]37.2 %Newuqb20.0-46.0[facility] on above:Order Comment: Specimen Type: BLOOD SPECIMEN Ordering Facility: [facility] Address: [address] [place], [place] [address]Performed By: #### 63306-4, 2777, #### [facility] CLIA [id number] [address] [place] [address] [place] AMERICAHemoglobin (Bld) [Mass/Vol] 12.6 g/mSVltggf81.5-15.5CVan [facility] on above:Order Comment: Specimen Type: BLOOD SPECIMEN Ordering Facility: [facility] Address: [address] [place], [place] [address]Performed By: #### 60133-1, 2777, #### [facility] CLIA [id number] [address] [place] [address] [place] AMERICAImmature granulocytes (Bld) [#/Vol]0.04 10*3/uLNormal<0.10[facility] on above:Order Comment: Specimen Type: BLOOD SPECIMEN Ordering Facility: [facility] Address: [address] [place], [place] [address]Performed By: #### 86101-9, 2777-1, #### [facility] CLIA [id number] [address] [place], [place] [address] [place] AMERICAImmature granulocytes/100 WBC (Bld)0.4 %NormalTrinity Health System [facility] on above:Order Comment: Specimen Type: BLOOD SPECIMEN Ordering Facility: [facility] Address: [address] [place], [place] [address]Performed By: #### 59661-8, 2777, #### [facility] CLIA [id number] [address] [place] [address] [place] OF AMERICALymphocytes (Bld) [#/Vol] 0.98 10*3/uLLow1.00-4.00[facility] on above:Order Comment: Specimen Type: BLOOD SPECIMEN Ordering Facility: [facility] Address: [address] [place], [place] [address]Performed By: #### 63971-2, 27701-29, #### [facility] CLIA [id number] [address] [place] [address] [place] AMERICALymphocytes/100 WBC (Bld) 10.0 %NormalTrinity Health System [facility] on above:Order Comment: Specimen Type: BLOOD SPECIMEN Ordering Facility: [facility] Address: [address] [place], [place] [address]Performed By: #### 46936-8, 27701-29, #### [facility] [place] [id number] [address] [place], [place] [address] [place] AMERICAMCH (RBC) [Entitic mass]29.1 uvWhggxd91.0-34.0[facility] on above:Order Comment: Specimen Type: BLOOD SPECIMEN Ordering Facility: [facility] Address: [address] [place], [place] [address]Performed By: #### 43440-6, 2777, #### [facility] CLIA [id number] [address] [place], [place] [address] [place] [facility] BROOKLYNMCHC (RBC) [Mass/Vol]33.9 g/cBTqojff80.5-36.0[facility] on above:Order Comment: Specimen Type: BLOOD SPECIMEN Ordering Facility: [facility] Address: [address] [place], [place] [address]Performed By: #### 64893-2, 2777, #### [facility] CLIA [id number] [address] [place] [address] [place] AMERICAMCV (RBC) [Entitic vol]85.9 pYFjhsyc86.0-100.0[facility] on above:Order Comment: Specimen Type: BLOOD SPECIMEN Ordering Facility: [facility] Address: [address] [place], [place] [address]Performed By: #### 44263-8, 27701-29, #### [facility] CLIA [id number] [address] [place] [address] [place] AMERICAMonocytes (Bld) [#/Vol]0.86 10*3/uLNormal<0.87[facility] on above:Order Comment: Specimen Type: BLOOD SPECIMEN Ordering Facility: [facility] Address: [address] [place], [place] [address]Performed By: #### 11882-0, 27701-29, #### [facility] CLIA [id number] [address] [place] [address] [place] AMERICAMonocytes/100 WBC (Bld)8.8 % NormalTrinity Health System [facility] on above:Order Comment: Specimen Type: BLOOD SPECIMEN Ordering Facility: [facility] Address: [address] [place], [place] [address]Performed By: #### 06381-8, 27701-29, #### [facility] CLIA [id number] [address] [place] [address] [place] AMERICANeutrophils (Bld) [#/Vol] 7.86 10*3/uLHigh1.45-7.50[facility] on above:Order Comment: Specimen Type: BLOOD SPECIMEN Ordering Facility: [facility] Address: [address] [place], [place] [address]Performed By: #### 68903-2, 2777-1, #### [facility] CLIA [id number] [address] [place] [address] [place] AMERICANeutrophils/100 WBC (Bld) 80.4 %NormalTrinity Health System [facility] on above:Order Comment: Specimen Type: BLOOD SPECIMEN Ordering Facility: [facility] Address: [address] [place], [place] [address]Performed By: #### 63362-9, 2777, #### [facility] CLIA [id number] [address] [place] [address] [place] AMERICANucleated RBC (Bld) [#/Vol] 10*3/uLNormal<0.01[facility] on above:Order Comment: Specimen Type: BLOOD SPECIMEN Ordering Facility: [facility] Address: [address] [place], [place] [address]Performed By: #### 32831-4, 2777, #### [facility] CLIA [id number] [address] [place] [address] [place] AMERICANucleated RBC/100 WBC (Bld) [Ratio]0.0 /100 WBCNormalCVan [facility] on above:Order Comment: Specimen Type: BLOOD SPECIMEN Ordering Facility: [facility] Address: [address] [place], [place] [address]Performed By: #### 48997-0, 27701-29, #### [facility] CLIA [id number] [address] [place], [place] [address] [place] AMERICAPlatelet mean volume (Bld) [Entitic vol]9.8 fLNormal9.0-12.7CVan [facility] on above: Order Comment: Specimen Type: BLOOD SPECIMEN Ordering Facility: [facility] Address: [address] [place], [place] [address]Performed By: #### 86802-8, 2777-1, 77710-2 #### [facility] CLIA [id number] [address] [place] [address] [place] AMERICAPlatelets (Bld) [#/Vol]256 10*3/rWGxepdg035-570WafswuogiTrinity Health System [facility] on above:Order Comment: Specimen Type: BLOOD SPECIMEN Ordering Facility: [facility] Address: [address] [place], [place] [address]Performed By: #### 45045-9, 2777-1, #### [facility] CLIA [id number] [address] [place] [address] [place] AMERICARBC (Bld) [#/Vol]4.33 10*6/uLNormal3.90-5.20[facility] on above:Order Comment: Specimen Type: BLOOD SPECIMEN Ordering Facility: [facility] Address: [address] [place], [place] [address]Performed By: #### 10901-1, 2777-1, #### [facility] CLIA [id number] [address] [place] [address] [place] AMERICAWBC (Bld) [#/Vol]9.78 10*3/uLNormal3.70-11.00[facility] on above:Order Comment: Specimen Type: BLOOD SPECIMEN Ordering Facility: [facility] Address: [address] [place], [place] [address]Performed By: #### 22833-2, 2777-1, #### [facility] CLIA [id number] [address] [place] [address] OF WILSON HEALTHCONSULTon [id number] HNO ID: [id number] Author: YAN RANDALL MD Service: General Surgery Author Type: Resident Type: Consults Filed: 11/24/2024 08:34 Note Text: Bariatric Surgery Pager: [phone] SURGERY CONSULT PROGRESS NOTE Patient Name: Tiffani [...] MD General Surgery Resident Bariatric Surgery Pager: [phone] On nights (6 pm to 6 am) and on Weekends/Holidays, please page the on-call pager: [phone] 6:20 AM, 11/24/2024 --- INTERVAL: No acute [...] ml Labs Reviewed Imaging Reviewed No new imaging.NormalC[facility] PROGon [id number] PROLUCIANONO ID: [id number] Author: JOSE MATTHEWS MD Service: Anesthesiology Author [...] IV Pain medications, PO Pain medications, and TESTING MANAGER bolus Patient Satisfied with Pain Control: No Overnight Pain Interventions: Patient started on ketamine infusion at 0.3mg/kg/hr ROS OPERATING ROOM MANAGER: Negative for headaches, negative for seizures, negative [...] (Ketalar) 0.3 mg/kg/hr (Adjusted) INTRAVENOUS CONTINUOUS fentaNYL TESTING MANAGER 20 mcg/mL in NaCl 0.9% 100 mL [...] 0943 -- 11/23/241999 vte pharmacologic prophylaxis contraindicated (sc,co) 11/23/241999 pneumatic compression sleeve(s) ([place], [place]) 11/23/241999 activity - mobilize patient ([place]) Assessment/Plan Morbid Obesity Class 3 Tiffani Allison is a 39 year old female who is being seen as described in the HPI above. Patient having increased pain this AM due to TESTING MANAGER occlusion (now fixed). Has not been using oral meds yet. Current Pain Medications Ordered: (more content not included)...NormalClinton Memorial HospitalMagnesium SerPl-mCncon [id number] [Mass/Vol]2.2 mg/dL Normal1.7-2.3COhio State Harding Hospitalment on above:Order Comment: Specimen Type: BLOOD SPECIMEN Ordering Facility: [facility] Address: [address] [place] [id number] By: #### [id number], 2777-1, [id number] #### [facility] CLIA [id number] [address] [place], [place] [id number] [place] E[place] [id number] EDHNO ID: [id number] Author: MILANA SAEZ DTR Service: Nutrition Therapy Author Type: Eeg Technician Type: Patient Education Filed: 11/24/2024 16:13 Note [...] DATE: November 24, 2024 TIME: 4:12 PM PAGER:NormalClinton Memorial HospitalPhosphate SerPl-mCncon 56-45-9756Xywngfgwo [Mass/Vol]3.0 mg/dLNormal2.7-4.8CWilson Health Comment on above:Order Comment: Specimen Type: BLOOD SPECIMEN Ordering Facility: [facility] Address: [address] [place], [place] [address]Performed By: #### 88908-4, 2777-, #### [facility] [place] [id number] [address] [place], [place] [address] [place]ANES POSTPROC EVALon [id number] POSTPROC EVALHNO ID: [id number] Author: LESA STARKEY MD Service: ? Author Type: Anesthesiologist Type: Anesthesia Postprocedure Evaluation Filed: 11/23/2024 17:36 Note Text: POST ANESTHESIA EVALUATION NOTE : 1985 Procedure Summary Date: 11/23/24 Room / Location: [address] Anesthesia Start: 724 Anesthesia Stop: 1731 [...] November 23, 2024 TIME: 5:36 PM CSN: [id number] Hospital PRE-OPon [id number] PRE-OPHNO ID: [id number] Author: DELORES ROQUE MD Service: ? Author [...] and consent discussed: yes. Patient / Responsible Libertarian agrees to proceed: yes Patient / Surrogate [...] November 23, 2024 TIME: 7:27 AM CSN: [id number] [facility] OP NOTon [id number] OP NOTHNO ID: [id number] Author: MARCOS SANCHEZ MD Service: General Surgery Author Type: Resident Type: Brief Op Note Filed: 11/23/2024 17:04 Note Text: GENERAL SURGERY BRIEF OP NOTE LOG ID: [id number] Surgery/Procedure Date: 11/23/2024 Incision/Procedure Start Time: 8:33 AM Incision Close/Procedure End Time: 4:58 PM Surgeon(s) and Food Preparation Supervisor(s): Surgeons and Role: Panel 1: * Rocio [...] 23, 2024 TIME: 4:58 PM PAGER/CONTACT #: [phone]. [facility] Hospital OP NOTHNO ID: [id number] Author: NOEL FITZGERALD MD Service: General Surgery Author Type: Fellow Type: Brief Op Note Filed: 11/23/2024 15:58 Note Text: BARIATRIC SURGERY BRIEF OP NOTE LOG ID: [id number] Surgery/Procedure Date: 11/23/2024 Incision/Procedure Start Time: 8:33 AM Incision Close/Procedure End Time: 3:56 PM Surgeon(s) and Food Preparation Supervisor(s): Surgeons and Role: Panel 1: * Rocio [...] 23, 2024 TIME: 3:56 PM PAGER/CONTACT #: [phone] Healthcare System CONFIRM BLOOD TYPEon [id number]elaware County Hospital on above:Order Comment: Specimen Type: BLOOD SPECIMEN Ordering Facility: [facility] Address: [address] [place], [place] [address]Performed By: #### 88545-7 #### [facility] CLIA [id number] [address] [place] [address] [place] [address] [place] AMERICARh Nom (Bld)NegativeNormal [facility] on above:Order Comment: Specimen Type: BLOOD SPECIMEN Ordering Facility: [facility] Address: [address] [place], [place] [address]Performed By: #### 75924-6 #### [facility] MATIAS [id number] [address] [place] [address] [address] STREETCONSULTon [id number] HNO ID: [id number] Author: JOSE MATTHEWS MD Service: Pain Management Author Type: Resident Type: Consults Filed: 11/24/2024 15:55 Note Text: Attestation signed by Jose Matthews MD at 11/24/2024 3:55 PM Attending Note I evaluated the patient and personally participated in the bermudez components. I agree with the resident's findings and plan with the following revisions and/or additions: TESTING MANAGER was occluding per patient and loved one in room. Nursing arranging to change TESTING MANAGER. Continue ketamine for 48 hour course total [...] IV Pain medications, PO Pain medications, and TESTING MANAGER bolus Patient does not have a history [...] in NaCl (is (more content not included)... [facility] NOon [id number] NOHNO ID: [id number] Author: AYSE GRISSOM MD Service: General Surgery Author Type: Physician Type: Operative Report Filed: 12/18/2024 08:38 Note Text: OPERATIVE/PROCEDURE REPORT LOG ID: [id number] Surgery/Procedure Date: 11/23/2024 Incision/Procedure Start Time: 8:33 AM Incision Close/Procedure End Time: 5:03 PM Surgeon(s)/Proceduralist(s) and Food Preparation Supervisor(s): Surgeons and Role: Panel 1: * Rocio [...] gastric pouch was fashi (more content not included)...NormalClinton Memorial HospitalOPERATIVE NO HNO ID: [id number] Author: ROCIO JEFF MD Service: General Surgery Author Type: Physician Type: Operative Report Filed: 11/26/2024 08:55 Note Text: [facility] - Operative Report [address] [address] [place] TIFFANI ALLISON : 1985 AGE: 39. SEX: F PATIENT TYPE: I HOSP [facility]: [facility] LOCATION: [id number] ATTENDING PHYSICIAN: Rocio Jeff M.D. CSN NUMBER: [id number] DATE OF SURGERY/PROCEDURE: 11/23/2024 INCISION/PROCEDURE START TIME: 8:33 AM INCISION CLOSE/PROCEDURE END TIME: 5:03 PM PREOPERATIVE DIAGNOSIS: Incisional hernia and paraesophageal hernia. POSTOPERATIVE DIAGNOSIS: Incisional hernia and paraesophageal hernia. SURGEON: Rocio Jeff M.D. MANAGER [employer] MANAGEMENT: Dr. Marcos Sanchez. SURGERY/PROCEDURE: Open left posterior [...] the anterior fascia in (more content not included)...NormalAshtabula [facility] BLOOD GASES WITH IONIZED MAGNESIUMon 19-71-6902XQIJ DEFICIT, VENOUS>-3Elhfgd-6-0LamirknfvGlenbeigh Hospitalment on above:Order Comment: Specimen Type: BLOOD SPECIMEN Ordering Facility: [facility] Address: [address] [place], [place] [address]Performed By: #### 73909-4, 2777, #### [facility] CLIA [id number] [address] [place] [address] [place] AMERICACalcium.ionized (Bld) [Mass/Vol]1.04 mmol/LLow1.08-1.30[facility] on above: Order Comment: Specimen Type: BLOOD SPECIMEN Ordering Facility: [facility] Address: [address] [place], [place] [address]Performed By: #### 87902-3, 2777, #### [facility] CLIA [id number] [address] [place] [address] [place] AMERICACalcium.ionized adjusted to pH 7.4 (BldA) [Moles/Vol]1.04 mmol/LLow1.08-1.30[facility] Comment on above:Order Comment: Specimen Type: BLOOD SPECIMEN Ordering Facility: [facility] Address: [address] [place], [place] [address]Performed By: #### 60421-0, 27701-29, #### [facility] CLIA [id number] [address] [place] [address] [place] AMERICACarboxyhemoglobin (BldV) [Mass fraction]2.1 %High0.0-2.0[facility] on above:Order Comment: Specimen Type: BLOOD SPECIMEN Ordering Facility: [facility] Address: [address] [place], [place] [address]Result Comment: Carboxyhemoglobin Reference Range for Smokers: 2.0-8.0%Performed By: #### 36009-7, 2776-08, #### [facility] CLIA [id number] [address] [place], [place] [address] [place] AMERICACO2 (BldV) [Partial pressure]39 mm[Hg]Oqg37-91UzqhkdndrTrinity Health [facility] on above:Order Comment: Specimen Type: BLOOD SPECIMEN Ordering Facility: [facility] Address: [address] [place], [place] [address]Performed By: #### 52818-1, 2776-08, #### [facility] CLIA [id number] [address] [place] [address] [place] AMERICACO2 adjusted to patient's actual temperature (BldV) [Partial pressure]39 acPpGzv87-90XlpljfzurTrinity Health System [facility] on above:Order Comment: Specimen Type: BLOOD SPECIMEN Ordering Facility: [facility] Address: [address] [place], [place] [address]Performed By: #### 61990-6, 2776-08, #### [facility] CLIA [id number] [address] [place], [place] [address] [place] AMERICAGlucose [Mass/Vol]166 mg/dL Podf52-111PtcsqzhutTrinity Health System [facility] on above:Order Comment: Specimen Type: BLOOD SPECIMEN Ordering Facility: [facility] Address: [address] [place], [place] [address]Performed By: #### 80790-3, 2776-08, #### [facility] CLIA [id number] [address] [place] [address] [place] AMERICAHCO3 (Bld) [Moles/Vol]24 mmol/SOpedfg15-32ZnzvcqnajTrinity Health System [facility] on above:Order Comment: Specimen Type: BLOOD SPECIMEN Ordering Facility: [facility] Address: [address] [place], [place] [address]Performed By: #### 28939-7, 27701-29, #### [facility] CLIA [id number] [address] [place] [address] [place] AMERICAHematocrit (Bld) [Volume fraction]40.2 %Obmfxq88.0-46.0[facility] on above:Order Comment: Specimen Type: BLOOD SPECIMEN Ordering Facility: [facility] Address: [address] [place], [place] [address]Performed By: #### 70181-8, 27701-29, #### [facility] CLIA [id number] [address] [place] [address] [place] AMERICAHemoglobin (Bld) [Mass/Vol] 13.1 g/pFIvxiec19.5-15.5CVan Wert County Hospital on above:Order Comment: Specimen Type: BLOOD SPECIMEN Ordering Facility: [facility] Address: [address] [place], [place] [address]Performed By: #### 62949-1, 2776-08, #### [facility] CLIA [id number] [address] [place], [place] [address] [place] AMERICALactate [Moles/Vol]1.8 mmol/LNormal0.5-2.2CVan Wert County Hospital on above:Order Comment: Specimen Type: BLOOD SPECIMEN Ordering Facility: [facility] Address: [address] [place], [place] [address]Performed By: #### 12666-0, 27701-29, #### [facility] CLIA [id number] [address] [place], [place] [address] [place] AMERICAMagnesium [Moles/Vol]0.63 mmol/LHigh0.45-0.60[facility] on above:Order Comment: Specimen Type: BLOOD SPECIMEN Ordering Facility: [facility] Address: [address] [place], [place] [address]Performed By: #### 80130-1, 27701-29, #### [facility] CLIA [id number] [address] [place] [address] [place] AMERICAMethemoglobin (Bld) [Mass fraction]1.2 %Normal0.0-1.5CVan Wert County Hospital on above:Order Comment: Specimen Type: BLOOD SPECIMEN Ordering Facility: [facility] Address: [address] [place], [place] [address]Performed By: #### 97595-3, 27701-29, #### [facility] CLIA [id number] [address] [place] [address] [place] AMERICAOxygen (BldV) [Partial pressure]115 mm[Hg]Hjsc95-12EmwvdozmsTrinity Health [facility] on above:Order Comment: Specimen Type: BLOOD SPECIMEN Ordering Facility: [facility] Address: [address] [place], [place] [address]Performed By: #### 78143-0, 27701-29, #### [facility] CLIA [id number] [address] [place] [address] [place] AMERICAOxygen adjusted to patient's actual temperature (BldV) [Partial pressure]115 fkXbVtfr23-68YsrphkyjnTrinity Health System [facility] on above:Order Comment: Specimen Type: BLOOD SPECIMEN Ordering Facility: [facility] Address: [address] [place], [place] [address]Performed By: #### 58593-0, 27701-29, #### [facility] CLIA [id number] [address] [place] [address] [place] AMERICAOxygen saturation in Venous blood99 %Twvp86-29TolbbtfjiTrinity Health System [facility] on above:Order Comment: Specimen Type: BLOOD SPECIMEN Ordering Facility: [facility] Address: [address] [place], [place] [address]Performed By: #### 05549-5, 2777-1, #### [facility] CLIA [id number] [address] [place] [address] [place] AMERICAOxyhemoglobin (BldV) [Mass fraction]95 %Dopr09-00SnxfntscwTrinity Health System [facility] on above:Order Comment: Specimen Type: BLOOD SPECIMEN Ordering Facility: [facility] Address: [address] [place], [place] [address]Performed By: #### 88234-0, 2777-1, #### [facility] CLIA [id number] [address] [place] [address] [place] AMERICApH (BldV)7.40 [pH]Normal 7.32-7.42[facility] on above:Order Comment: Specimen Type: BLOOD SPECIMEN Ordering Facility: [facility] Address: [address] [place], [place] [address]Performed By: #### 52595-9, 2777-1, #### [facility] CLIA [id number] [address] [place] [address] [place] AMERICApH adjusted to patient's actual temperature (BldV)7.22Qftjey8.32-7.42[facility] on above:Order Comment: Specimen Type: BLOOD SPECIMEN Ordering Facility: [facility] Address: [address] [place], [place] [address]Performed By: #### 64805-7, 2777-, #### [facility] CLIA [id number] [address] [place] [address] [place] AMERICAPotassium [Moles/Vol]4.4 mmol/LNormal3.5-5.0[facility] on above:Order Comment: Specimen Type: BLOOD SPECIMEN Ordering Facility: [facility] Address: [address] [place], [place] [address]Performed By: #### 46030-2, 2777-1, #### [facility] CLIA [id number] [address] [place] [address] [place] AMERICASodium [Moles/Vol]137 mmol/L Gjcvhe256-293NbobbdoutClinton Memorial HospitalComment on above:Order Comment: Specimen Type: BLOOD SPECIMEN Ordering Facility: [facility] Address: [address] [place], [place] [address], [place] [address]Jfhpcablr By: #### 00719-4, 2777-1, #### [facility] CLIA [id number] [address] [place], [place] [address] [place] AMERICACNPNon [id number] Telephone (JENNIFERI) TIFFANI ALLISON ([id number]) 1985 F Date Time Provider Department 11/09/24 KRISTI WATTS During your visit today, we recorded the following information about you: Kristi Watts RN 11/09/2024 1:24 PM Signed [facility] SURGERY APPROVAL CALL Received e-mail confirmation of insurance approval for bariatric surgery.Pre-operative call placed to the patient, this RN spoke with patient and agreed upon a surgery date of November 23 2024. Surgical episode request sent to [facility] surgery scheduling. Patient understands that the surgery type is Gastric Bypass as approved by insurance. Creatinine level 0.67 Patient instructed to start pre-op 800 calorie total protein liquid diet Atkins (5) daily beginning 2 weeks prior to surgery. - Stop all ASA and NSAID products, [place] 3 fish oil, herbal products such as [...] - Ale video assigned. - Introduced Bariatric cruise director Yes - All questions and concerns addressed and patient verbalized understanding. - Patient case reviewed. All nutrition appointments completed, psychology clearance obtained, surgeon visit and procedure type verified, medical optimization obtained and all testing complete. Does patient have Con ABO? Yes, patient has Con ABO. [facility] [employer] - a research program mentioned [...] tachycardia (HCC) [ (more content not included)...Normal Clinton Memorial HospitalActivated partial thromboplastin time (aPTT) in platelet poor plasma by coagulation aon 63-28-3660hSDQ Coag (PPP) [Time] Activated partial thromboplastin time (aPTT) in platelet poor plasma by coagulation a23.0-32.4FWVUMedicine Barnesville HospitalBasophils Auto (Bld) [#/Vol]on 45-27-4321Ogsknbbvr (Bld) [#/Vol]Automated basophil count<0.11 [facility] CampusBasophils/100 WBC Auto (Bld)on 11-06-2024 Basophils/100 WBC (Bld)Automated basophil %[facility] Blood manual differential comment interpretation narrativeon 60-82-1108Txbiby differential comment Asa (Bld) [Interp]Blood manual differential comment interpretation narrativeFirKettering Health Main CampusCBC W Auto Differential panel (Bld)on 84-56-0570Qvzzqgyfl (Bld) [#/Vol]0.04 10*3/uLNormal<0.11CVan Wert County Hospital on above:Order Comment: Specimen Type: BLOOD SPECIMEN Ordering Facility: [facility] Address: [address] [place], [place] [address]Performed By: #### 08058-5, 27701-29, #### [facility] CLIA [id number] [address] [place] [address] [place] AMERICABasophils/100 WBC (Bld)0.4 % NormalTr[facility] on above:Order Comment: Specimen Type: BLOOD SPECIMEN Ordering Facility: [facility] Address: [address] [place], [place] [address]Performed By: #### 21271-8, 27701-29, #### [facility] CLIA [id number] [address] [place] [address] [place] AMERICADifferential cell count method Nom (Bld)AutoNormalCVan Wert County Hospital on above:Order Comment: Specimen Type: BLOOD SPECIMEN Ordering Facility: [facility] Address: [address] [place], [place] [address]Performed By: #### 68586-0, 27701-29, #### [facility] CLIA [id number] [address] [place], [place] [address] [place] AMERICAEosinophils (Bld) [#/Vol] 0.12 10*3/uLNormal<0.46[facility] on above:Order Comment: Specimen Type: BLOOD SPECIMEN [facility]ing Facility: [facility] Address: [address] [place], [place] [address]Performed By: #### 83535-3, 27701-29, #### [facility] CLIA [id number] [address] [place], [place] [address] [place] AMERICAEosinophils/100 WBC (Bld)1.1 %NormalTrinity Health System [facility] on above:Order Comment: Specimen Type: BLOOD SPECIMEN Ordering Facility: [facility] Address: [address] [place], [place] [address]Performed By: #### 41525-6, 27701-29, #### [facility] CLIA [id number] [address] [place], [place] [address] [place] AMERICAErythrocyte distribution width (RBC) [Ratio]13.9 %Bqfqmy43.5-15.0[facility] on above:Order Comment: Specimen Type: BLOOD SPECIMEN Ordering Facility: [facility] Address: [address] [place], [place] [address]Performed By: #### 74290-5, 27701-29, #### [facility] CLIA [id number] [address] [place] [address] [place] AMERICAHematocrit (Bld) [Volume fraction]43.4 %Hjkzit65.0-46.0[facility] on above:Order Comment: Specimen Type: BLOOD SPECIMEN Ordering Facility: [facility] Address: [address] [place], [place] [address]Performed By: #### 10202-0, 27701-29, #### [facility] CLIA [id number] [address] [place], [place] [address] [place] AMERICAHemoglobin (Bld) [Mass/Vol] 14.5 g/yHUrrguq00.5-15.5CVan Wert County Hospital on above:Order Comment: Specimen Type: BLOOD SPECIMEN Ordering Facility: [facility] Address: [address] [place], [place] [address]Performed By: #### 24788-7, 2777-1, #### [facility] CLIA [id number] [address] [place], [place] [address] [place] AMERICAImmature granulocytes (Bld) [#/Vol]0.04 10*3/uLNormal<0.10[facility] on above:Order Comment: Specimen Type: BLOOD SPECIMEN Ordering Facility: [facility] Address: [address] [place], [place] [address]Performed By: #### 74952-1, 2777, #### [facility] CLIA [id number] [address] [place], [place] [address] [place] AMERICAImmature granulocytes/100 WBC (Bld)0.4 %NormalTrinity Health System [facility] on above:Order Comment: Specimen Type: BLOOD SPECIMEN Ordering Facility: [facility] Address: [address] [place], [place] [address]Performed By: #### 24988-7, 2777, #### [facility] CLIA [id number] [address] [place], [place] [address] [place] AMERICALymphocytes (Bld) [#/Vol] 2.51 10*3/uLNormal1.00-4.00[facility] on above:Order Comment: Specimen Type: BLOOD SPECIMEN Ordering Facility: [facility] Address: [address] [place], [place] [address]Performed By: #### 54465-3, 27701-29, #### [facility] CLIA [id number] [address] [place], [place] [address] [place] AMERICALymphocytes/100 WBC (Bld) 22.3 %NormalTrinity Health System [facility] on above:Order Comment: Specimen Type: BLOOD SPECIMEN Ordering Facility: [facility] Address: [address] [place], [place] [address]Performed By: #### 76328-9, 277-, #### [facility] CLIA [id number] [address] [place] [address] (RBC) [Entitic mass]28.3 inKhwlvk06.0-34.0[facility] on above:Order Comment: Specimen Type: BLOOD SPECIMEN Ordering Facility: [facility] Address: [address] [place], [place] [address]Performed By: #### 14605-2, 27701-29, #### [facility] CLIA [id number] [address] [place], [place] [address] (RBC) [Mass/Vol]33.4 g/hXBegqux83.5-36.0[facility] on above:Order Comment: Specimen Type: BLOOD SPECIMEN Ordering Facility: [facility] Address: [address] [place], [place] [address]Performed By: #### 88006-4, 27701-29, #### [facility] CLIA [id number] [address] [place] [address] (RBC) [Entitic vol]84.8 wZAwbnaj48.0-100.0[facility] on above:Order Comment: Specimen Type: BLOOD SPECIMEN Ordering Facility: [facility] Address: [address] [place], [place] [address]Performed By: #### 92715-3, 27701-29, #### [facility] CLIA [id number] [address] [place], [place] [address]Monocytes (Bld) [#/Vol]0.78 10*3/uLNormal<0.87[facility] on above:Order Comment: Specimen Type: BLOOD SPECIMEN [facility]ing Facility: [facility] Address: [address] [place], [place] [address]Performed By: #### 99806-9, 27701-29, #### [facility] CLIA [id number] [address] [place] [address] [place] AMERICAMonocytes/100 WBC (Bld)6.9 % NormalTrinity Health System [facility] on above:Order Comment: Specimen Type: BLOOD SPECIMEN [facility]ing Facility: [facility] Address: [address] [place], [place] [address]Performed By: #### 94394-3, 27701-29, #### [facility] CLIA [id number] [address] [place] [address] [place] AMERICANeutrophils (Bld) [#/Vol] 7.76 10*3/uLHigh1.45-7.50[facility] on above:Order Comment: Specimen Type: BLOOD SPECIMEN Ordering Facility: [facility] Address: [address] [place], [place] [address]Performed By: #### 59099-6, 27701-29, #### [facility] CLIA [id number] [address] [place] [address] [place] AMERICANeutrophils/100 WBC (Bld) 68.9 %NormalTrinity Health System [facility] on above:Order Comment: Specimen Type: BLOOD SPECIMEN Ordering Facility: [facility] Address: [address] [place] [address]Zrrrbuwzd By: #### 50706-8, 2776-08, #### [facility] CLIA [id number] [address] [place] [address] [place] AMERICANucleated RBC (Bld) [#/Vol] 10*3/uLNormal<0.01[facility] on above:Order Comment: Specimen Type: BLOOD SPECIMEN Ordering Facility: [facility] Address: [address] [place], [place] [address]Performed By: #### 82622-1, 2776-08, #### [facility] CLIA [id number] [address] [place], [place] [address] [place] AMERICANucleated RBC/100 WBC (Bld) [Ratio]0.0 /100 WBCNormalCVan Wert County Hospital on above:Order Comment: Specimen Type: BLOOD SPECIMEN Ordering Facility: [facility] Address: [address] [place], [place] [address]Performed By: #### 83963-7, 27701-29, #### [facility] CLIA [id number] [address] [place], [place] [address] [place] AMERICAPlatelet mean volume (Bld) [Entitic vol]10.1 fLNormal9.0-12.7CVan [facility]ert [facility] on above: Order Comment: Specimen Type: BLOOD SPECIMEN Ordering Facility: [facility] Address: [address] [place], [place] [address]Performed By: #### 54049-7, 2776-08, #### [facility] CLIA [id number] [address] [place] [address] [place] AMERICAPlatelets (Bld) [#/Vol]250 10*3/uUIhrvnd647-081CirhssvdvTrinity Health System [facility] on above:Order Comment: Specimen Type: BLOOD SPECIMEN Ordering Facility: [facility] Address: [address] [place], [place] [address]Performed By: #### 34716-1, 2776-08, #### [facility] CLIA [id number] [address] [place], [place] [address] [place] AMERICARBC (Bld) [#/Vol]5.12 10*6/uLNormal3.90-5.20[facility] on above:Order Comment: Specimen Type: BLOOD SPECIMEN Ordering Facility: [facility] Address: [address] [place], [place] [address]Performed By: #### 01693-6, 277-, #### [facility] CLIA [id number] [address] [place] [address] [place] AMERICAWBC (Bld) [#/Vol]11.25 10*3/uLHigh3.70-11.00[facility] HospitalComrehabilitation [facility] on above:Order Comment: Specimen Type: BLOOD SPECIMEN Ordering Facility: [facility] Address: [address] [place], [place] [address]Performed By: #### 49029-7, 2777-, #### [facility] CLIA [id number] [address] [place], [place] [address]CNOVon 28-30-6554MQDGYcjpvr Visit (GENHARLAN) TIFFANI ALLISON ([id number]) 1985 F Date Time Provider Department 11/06/24 11:00 AM REINALDO MENDOZA During your visit today, we recorded the following information about you: Reinaldo Mendoza, PhD 11/06/2024 4:26 PM Signed Behavioral Medicine [facility] [place] Name: Tiffani Allison MR#: [id number] Date: 11/06/2024 Time: 1 hour Referred by: [...] Reinaldo Webb, Ph.D. Referring Provider: KHOA SILVEIRA [[id number]] Allergies As of Date: 11/06/2024 Noted Allergy [...] [K44.9] Morbid obesity (HCC) [E66.01] Order(s):CONSULT TO [facility] [[id number]] Order #: [id number]: 1 Prescriptions as of 11/06/2024 - DULoxetine [...] comorbid*11/06/2024 Encounter Status:Closed by REINALDO MENDOZA on 11/06/24NoalCOhio State Harding Hospitalprehensive metabolic 2000 panelon 60-91-2017Igeaycp [Mass/Vol]4.1 g/dLNormal3.9-4.9CVan Wert [facility] Hospital on above:Order Comment: Specimen Type: BLOOD SPECIMEN Ordering Facility: [facility] Address: [address] [place], [place] [address]Performed By: #### 34400-8 #### [facility] CLIA [id number] [address] [place] [address] [place] AMERICAALP [Catalytic activity/Vol] 69 U/XAtakit85-230WhvponvlrTrinity Health System [facility] on above:Order Comment: Specimen Type: BLOOD SPECIMEN Ordering Facility: [facility] Address: [address] [place], [place] [address]Performed By: #### 72282-9 #### [facility] CLIA [id number] [address] [place], [place] [address] [place] AMERICAALT [Catalytic activity/Vol] 36 U/LNormal7-38[facility] on above:Order Comment: Specimen Type: BLOOD SPECIMEN Ordering Facility: [facility] Address: [address] [place], [place] [address]Performed By: #### 15479-5 #### [facility] CLIA [id number] [address] [place] [address] [place] AMERICAAnion gap [Moles/Vol]12 mmol/LNormal8-15[facility] on above:Order Comment: Specimen Type: BLOOD SPECIMEN Ordering Facility: [facility] Address: [address] [place], [place] [address]Performed By: #### 37649-0 #### [facility] CLIA [id number] [address] [place] [address] [place] AMERICAAST [Catalytic activity/Vol] 23 U/PQohprk72-31EkcktyeedTrinity Health System [facility] on above:Order Comment: Specimen Type: BLOOD SPECIMEN Ordering Facility: [facility] Address: [address] [place], [place] [address]Performed By: #### 34140-3 #### [facility] CLIA [id number] [address] [place] [address] [place] AMERICABilirubin [Mass/Vol]0.5 mg/dLNormal0.2-1.3CVan Wert County Hospital on above:Order Comment: Specimen Type: BLOOD SPECIMEN Ordering Facility: [facility] Address: [address] [place], [place] [address]Performed By: #### 57510-5 #### [facility] CLIA [id number] [address] [place] [address] [place] AMERICACalcium [Mass/Vol]9.0 mg/dL Normal8.5-10.2CV[facility] on above:Order Comment: Specimen Type: BLOOD SPECIMEN Ordering Facility: [facility] Address: [address] [place], [place] [address]Performed By: #### 03707-3 #### [facility] CLIA [id number] [address] [place] [address] [place] AMERICAChloride [Moles/Vol]104 mmol/FUwpecc29-492KhmyllowjTrinity Health System [facility] on above:Order Comment: Specimen Type: BLOOD SPECIMEN Ordering Facility: [facility] Address: [address] [place], [place] [address]Performed By: #### 08951-6 #### [facility] CLIA [id number] [address] [place] [address] [place] AMERICACO2 [Moles/Vol]26 mmol/L Dexvvk98-59WghgnzzuvTrinity Health System [facility] on above:Order Comment: Specimen Type: BLOOD SPECIMEN Ordering Facility: [facility] Address: [address] [place], [place] [address]Performed By: #### 24986-2 #### [facility] [place] [id number] [address] [place] [address] [place] WILSON HEALTHCreatinine [Mass/Vol]0.67 mg/dLNormal0.58-0.96[facility] on above:Order Comment: Specimen Type: BLOOD SPECIMEN Ordering Facility: [facility] Address: [address] [place], [place] [address]Performed By: #### 83786-2 #### [facility] IA [id number] [address] [place] [address] [place] AMERICACreatinine and Glomerular filtration rate.predicted panel (S/P/Bld)115 mL/min/1.73m???Normal>=60[facility] on above:Order Comment: Specimen Type: BLOOD SPECIMEN Ordering Facility: [facility] Address: [address] [place], [place] [address]Result Comment: Estimated Glomerular Filtration Rate (eGFR) is [...] not accurately reflect actual GFR.Performed By: #### 17073-2 #### [facility] IA [id number] [address] [place] [address] [place] AMERICAGlucose [Mass/Vol]130 mg/dL Ihtr32-10KboeebdigTrinity Health System [facility] on above:Order Comment: Specimen Type: BLOOD SPECIMEN Ordering Facility: [facility] Address: [address] [place], [place] [address]Result Comment: The [place] Diabetes Association (ADA) provides guidance for cutoff [...] Standards of Medical Care in Diabetes 2016, [place] Diabetes Association. Diabetes Care. 2016.39(Suppl 1).Performed By: #### 44066-2 #### [facility] CLIA [id number] [address] [place] [address] [place] AMERICAPotassium [Moles/Vol]4.0 mmol/LNormal3.7-5.1CVan [facility]ert [facility] Hospital on above:Order Comment: Specimen Type: BLOOD SPECIMEN Ordering Facility: [facility] Address: [address] [place], [place] [address]Performed By: #### 32407-5 #### [facility] CLIA [id number] [address] [place] [address] [place] AMERICAProtein [Mass/Vol]6.2 g/dL Low6.3-8.0[facility] on above:Order Comment: Specimen Type: BLOOD SPECIMEN Ordering Facility: [facility] Address: [address] [place], [place] [address]Performed By: #### 13975-4 #### [facility] CLIA [id number] [address] [place] [address] [place] AMERICASodium [Moles/Vol]142 mmol/L Igtbcs561-601BasyuqlurTrinity Health System [facility] on above:Order Comment: Specimen Type: BLOOD SPECIMEN Ordering Facility: [facility] Address: [address] [place], [place] [address]Performed By: #### 66585-9 #### [facility] IA [id number] [address] [place] [address] [place] AMERICAUrea nitrogen [Mass/Vol]9 mg/dLNormal7-21[facility] on above:Order Comment: Specimen Type: BLOOD SPECIMEN Ordering Facility: [facility] Address: [address] [place], [place] [address]Performed By: #### 98134-2 #### [facility] IA [id number] [address] [place] [address] [place] AMERICAECG COMPLETEon 16-01-9041TGM COMPLETEVentricular Rate : 75 BPM Atrial Rate : 75 BPM P-R Interval : 148 ms QRS Duration : 98 ms Q-T Interval : 406 ms QTC Calculation(Bazett) : 453 ms Calculated P [place] : 39 degrees Calculated R [place] : 40 degrees Calculated T [place] : 40 degrees NORMAL SINUS RHYTHM NORMAL ECG Confirmed by MD YAZ, PhD, BATSHEVA ([id number]) on 11/13/2024 11:14:22 AM NAME : TIFFANI ALLISON PID : [id number] : 1985 Gender : Female Race : ORD : [id number] Procedure Date : Nov 06 2024 09:44:52 Edit Date : Nov 13 2024 11:14:24 Diagnosis: NORMAL SINUS RHYTHM NORMAL ECG Confirmed by MD YAZ, PhD, BATSHEVA ([id number]) on 11/13/2024 11:14:22 AM Test Reason : Location : 119 : A17 Overread By : MD YAZ, PhD,BATSHEVA Edited By : MD YAZ, PhD,BATSHEVA Referred By : KHOA SILVEIRA Acquired by : ELIECER WEBBACMC Healthcare SystemEosinophils/100 WBC Auto (Bld)on 72-05-6196Iaijhzaqngk/100 WBC (Bld)Automated eosinophil %[facility] CampusErythrocyte distribution width Auto (RBC) [Ratio]on 64-57-6297Qyhifkgltkj distribution width (RBC) [Ratio]Erythrocyte distribution width [Ratio] by Automated count11.5-15.0[facility] HISTORY PHYSICALon 58-15-2697ZTNLXEC PHYSICALHNO ID: [id number] Author: BELA BANEGAS PA-C Service: ? Author Type: Physician Food Preparation Supervisor Type: H&P Filed: 11/07/2024 15:19 Note Text: [...] fevers. Neurological: No history of TIA's, stroke, OPERATING ROOM MANAGER tumor, impaired sensorium, hemiplegia, paraplegia or quadraplegia. No neurological symptoms or problems. Respiratory: No history of current cough or dyspnea, or pneumonia in the past 6 weeks. No history of respiratory/pulmonary symptoms or problems. Cardiovascular: No history of HTN requiring medication, no history of angina, CHF, OH, cardiac surgery or stents. Denies rest pain, [...] is not taking anti-coagulat (more content not included)...NormalClinton Memorial Hospital Hematocrit Auto (Bld) [Volume fraction]on 93-77-6206Aiyxpsoljw (Bld) [Volume fraction]Hematocrit [Volume Fraction] of Blood by Automated count36.0-46.0 [facility] CampusHemoglobin [Mass/volume] in Bloodon 11-06-2024 Hemoglobin (Bld) [Mass/Vol]Hemoglobin [Mass/volume] in Blood11.5-15.5FWVUMedicine Barnesville HospitalINR in Platelet poor plasma by Coagulation assayon 24-20-8315FVY Coag (PPP) [Relative time]INR in Platelet poor plasma by Coagulation assay0.9-1.3FWVUMedicine Barnesville HospitalComment on above: Vitamin K Antagonist (VKA) Therapeutic Range: INR 2 to 3 (Target INR of 2.5)Note: For patients treated with VKA drugs, such as warfarin, the [place] [employer]icians 2012 Guideline recommends [...] al. Chest 2012, 141:7S-47SNishimura RA, et al. [facility] 2017, 70: 252-289Laboratory - Chemistry and Chemistry - challengeon 60-63-7478Wbqvzgk [Mass/Vol]4.1 g/dL 3.9-4.9[facility] CampusALP [Catalytic activity/Vol]69 U/L34-123 [facility] CampusALT [Catalytic activity/Vol]36 U/L7-38[facility] CampusAST [Catalytic activity/Vol]23 U/E25-20CyinechggTrinity Health System West CampusBilirubin [Mass/Vol]0.5 mg/dL0.2-1.3FWVUMedicine Barnesville HospitalCalcium [Mass/Vol]9.0 mg/dL8.5-10.2FWVUMedicine Barnesville Hospital Chloride [Moles/Vol]104 mmol/I30-116XbgozlaosTrinity Health System West CampusCO2 [Moles/Vol]26 mmol/J17-84CrvqngegjTrinity Health System West CampusCreatinine [Mass/Vol] 0.67 mg/dL0.58-0.96[facility] CampusGlucose [Mass/Vol]130 mg/dL Xore20-18LqmyfbhwoTrinity Health System West CampusComment on above:The [place] Diabetes Association (ADA) provides guidance for cutoff [...] diabetes.Reference: Standardsof Medical Care in Diabetes 2016, [place] Diabetes Association. Diabetes Care. 2016.39(Suppl 1). Potassium [Moles/Vol]4.0 mmol/L3.7-5.1FThe Christ Hospitalodium [Moles/Vol]142 mmol/Q080-376VfowqldftTrinity Health System West CampusUrea nitrogen [Mass/Vol]9 mg/dL7-21[facility] CampusLaboratory - Hematology and Cell countson 10-91-9459Jaxqhlpbghf (Bld) [#/Vol]0.12 10*3/uL<0.46[facility] CampusImmature granulocytes (Bld) [#/Vol]0.04 10*3/uL<0.10 [facility] CampusImmature granulocytes/100 WBC (Bld)0.4 % [facility] CampusLeukocytes [#/volume] corrected for nucleated erythrocytes in Blood by Automated counon 43-98-6316NED corrected for nucl RBC Auto (Bld) [#/Vol]Leukocytes [#/volume] corrected for nucleated erythrocytes in Blood by Automated counHigh3.70-11.00[facility] Lymphocytes Auto (Bld) [#/Vol]on 25-95-9626Yeyaazodtxw (Bld) [#/Vol]Lymphocytes [#/volume] in Blood by Automated count1.00-4.00[facility] Lymphocytes/100 WBC Auto (Bld)on 46-37-6616Rleiujhnnzs/100 WBC (Bld) Lymphocytes/100 leukocytes in Blood by Automated countHolzer Medical Center – JacksonH Auto (RBC) [Entitic mass]on 08-90-2951KVF (RBC) [Entitic mass]MCH [Entitic mass] by Automated count26.0-34.0[facility] CampusMCHC Auto (RBC) [Mass/Vol]on 85-45-7422CFTW (RBC) [Mass/Vol]MCHC [Mass/volume] by Automated count30.5-36.0[facility] CampusMCV Auto (RBC) [Entitic vol]on 97-08-7735NSW (RBC) [Entitic vol]MCV [Entitic volume] by Automated count 80.0-100.0[facility] CampusMonocytes Auto (Bld) [#/Vol]on 35-31-7705Zcxofifod (Bld) [#/Vol]Automated blood monocyte count<0.87[facility] CampusMonocytes/100 WBC Auto (Bld)on 42-49-3346Dfxjatosu/100 WBC (Bld)Automated monocyte %[facility] CampusNeutrophils Auto (Bld) [#/Vol]on 13-48-9952Qqpasgevggr (Bld) [#/Vol]Neutrophils [#/volume] in Blood by Automated countHigh1.45-7.50[facility] Neutrophils/100 WBC Auto (Bld)on 19-45-2678Ywrwnrzifgc/100 WBC (Bld)Automated neutrophil %[facility] CampusNo Panel Informationon 11-06-2024 Estimated GFR (CKD-EPI)115 mL/min/1.73m???>=60[facility] Comment on above:Estimated Glomerular Filtration Rate (eGFR) [...] reflect actual GFR.Nucleated RBC Auto (Bld) [#/Vol]on 21-82-0699Atsgwwvky RBC (Bld) [#/Vol]Nucleated erythrocytes [#/volume] in Blood by Automated count<0.01[facility] Nucleated erythrocytes [Presence] in Blood by Automated counton 11-06-2024 Nucleated RBC Auto Ql (Bld)Nucleated erythrocytes [Presence] in Blood by Automated countTrinity Health System West CampusPT panel Coag (PPP)on 11-06-2024 INR Coag (PPP) [Relative time]1.0 {INR}Normal0.9-1.3CWilson Health Comment on above:Order Comment: Specimen Type: BLOOD SPECIMENOrdering Facility: [facility] Address:[facility] [place], [place] [address]Result Comment: Vitamin K Antagonist (VKA) Therapeutic Range: INR 2 to 3 (Target INR of 2.5) Note: For patients treated with VKA drugs, such as warfarin, the [place] [employer] 2012 Guideline recommends [...] Chest 2012, 141:7S-47S Sosa RA, et al. [facility] 2017, 70: 252-289Performed By: #### 32810-6, 21418-2 ####[facility] LABCLIA [id number] [place] [address] [place] AMERICAPT Coag (PPP) [Time]10.9 sNormal 9.7-13.0[facility] on above:Order Comment: Specimen Type: BLOOD SPECIMENOrdering Facility: [facility] Address:[address] [place], [place] [address]Performed By: #### 37191-2, 34499-5 ####[facility] LABCLIA [id number] [place] [address] [place] AMERICAPlatelet mean volume Auto (Bld) [Entitic vol]on 36-89-1219Jafswfus mean volume (Bld) [Entitic vol]Platelet mean volume [Entitic volume] in Blood by Automated count9.0-12.7FWVUMedicine Barnesville Hospital Platelets Auto (Bld) [#/Vol]on 02-53-3518Hhihtimqy (Bld) [#/Vol]Platelets [#/volume] in Blood by Automated -045BvbqbhaumTrinity Health System [facility] Campus Protein [Mass/volume] in Serum or Plasmaon 84-40-7221Zzadgvy [Mass/Vol]Protein [Mass/volume] in Serum or PlasmaLow6.3-8.0[facility] Prothrombin time (PT)on 94-94-0540WE Coag (PPP) [Time]Prothrombin time (PT) 9.7-13.0[facility] CampusRBC Auto (Bld) [#/Vol]on 18-98-4685VZP (Bld) [#/Vol]Erythrocytes [#/volume] in Blood by Automated count3.90-5.20 [facility] Hospitalerum or plasma anion gap determinationon 05-07-4257Qephc gap [Moles/Vol]Serum or plasma anion gap determination8-15 [facility] CampusTYPE AND SCREEN,30 DAYon 18-81-1840TJZNBkpxnq [facility] on above:Order Comment: Specimen Type: BLOOD SPECIMENOrdering Facility: [facility] Address:[address] [place], [place] [address]Performed By: #### TSCR30 ####[facility] BLOOD BANKCLIA [id number] [place] [address] [place] AMERICARh Nom (Bld)NegativeNormalCVan Wert County Hospital on above: Order Comment: Specimen Type: BLOOD SPECIMENOrdering Facility: [facility] Address:[address] [place], [place] [address]Performed By: #### TSCR30 ####[facility] BLOOD BANKIA [id number] [address] STATES OF AMERICAaPTT PPPon 52-74-3795cPMG Coag (PPP) [Time]24.4 s Xeuoos79.0-32.4CVan Wert County Hospital on above:Order Comment: Specimen Type: BLOOD SPECIMENOrdering Facility: [facility] Address:[address] [place], [place] [address]Performed By: #### 40097-1, 84083-3 ####[facility] LABCLIA [id number] [place] [address] [place] AMERICACNCOon 06-42-8336EWXJYukdcc Text NormalClinton Memorial HospitalCNPNon 60-53-9553GUEPKsmnlfrkq (GENBMI) TIFFANI ALLISON ([id number]) 1985 F Date Time Provider Department 09/12/24 KRISTI WATTS During your visit today, we recorded the following information about you: Kristi Watts, SHABANA 09/12/2024 12:55 PM Signed [facility]LE[facility] ENCOUNTER I spoke [...] (None) Encounter Status:Closed by KRISTI WATTS on 09/12/24NormalCWilson HealthNICOTINE AND METAB, URon 45-20-7323YUYU ANABASINE QUANT<5Normal Clinton Memorial HospitalComment on above:Order Comment: Specimen Type: URINE SPECIMEN [facility]ing Facility[facility] Address: [address] [place], [place] [address]Performed By: #### UNICOT #### [facility] [employer] CLIA [id number] [address] [place], [place] [address]YBFB COTININE QUANT<15NormalClinton Memorial Hospital Comment on above:Order Comment: Specimen Type: URINE SPECIMEN [facility]ing Facility[facility] Address: [address] [place], [place] [address]Performed By: #### UNICOT #### [facility] CLIA [id number] [address] [place], [place] [address]NDAM NICOTINE QUANT<15NormalClinton Memorial Hospital Comment on above:Order Comment: Specimen Type: URINE SPECIMEN [facility]ing Facility[facility] Address: [address] [place], [place] [address]Result Comment: INTERPRETIVE INFORMATION: Nicotine and Metabolites, Urine, Quantitative Methodology: Quantitative Liquid Chromatography-Tandem Mass Spectrometry Positive cutoff: Nicotine 15 ng/mL Cotinine 15 ng/mL 1-KS-Vrozckiy 50 ng/mL Anabasine 5 ng/mL For medical [...] developed and its performance characteristics determined by [employer]. It has not been cleared or approved by the [place] Food and Drug Administration. This test was performed in a CLIA certified laboratory and is intended for clinical purposes. Performed By: [facility] [address] [place] [address] Fisheries Biologist: Kulwinder Wilson MD, PhD CLIA Number: [id number] By: #### UNICOT #### [facility] CLIA [id number] [address] [place], [place] [address]MWDSS 3 [place] COTININE<50NormalClevelAshe Memorial Hospital Comment on above:Order Comment: Specimen Type: URINE SPECIMEN Ordering Facility: [facility] Address: [address] [place] [address]Idbyvupoq By: #### UNICOT #### [facility] CLIA [id number] [address] [place], [place] [address]MAIVem 00-80-2248JTPSKbyyujgsn (ENDPTW) TIFFANI ALLISON ([id number]) 1985 F Date Time Provider Department 08/22/24 [...] (None) Encounter Status:Closed by CHADWICK HELM on 08/22/24NormalCWilson HealthXR Ankle - right 3 Viewson 85-95-0909Xuitvsa Result: AP lateral and oblique of the right ankle taken in the office today demonstrating no significant collapse or osteochondral defect ankle mortise well-preserved no bony tumor or fracture seen.[facility] HealthcareRadiology Study observation (narrative)[facility] SbaioxzlckAnW9f HPLC (Bld) [Mass fraction]on 97-54-8190UoW5k (Bld) [Mass fraction]Hemoglobin A1c/Hemoglobin.total in Blood by HPLCTrinity Health System [facility] Campus POLYSOMNOGRAM (PSG)/HOME SLEEP APNEA TEST (HSAT)on 29-22-1414WODFDKBVBEHXO (PSG)/HOME SLEEP APNEA TEST (HSAT)[facility] at [address], [address] [address] [address] ; Home Sleep Apnea Test (HSAT) Study Report Name: TIFFANI ALLISON Date of Study: 07/31/2024 [facility]#: [id number] Age: 38 (: 1985) ESS: 02/21 Neck [...] unattended Type III, minimum of 4 parameters (26432) Procedure: This study was performed using a Type III ambulatory PSG device and was unattended. The patient was instructed on proper use of the device by a registered food technologist. The monitored parameters included heart rate, [...] of stroke. INTERPRETING PHYSICIAN: Erik Cutler MD [facility] I attest that I have performed epoch by epoch review of the entire raw data and find this study to be technically adequate. Report Digitally Signed By: ERIK CUTLER MD (08/09/2024 12:59:35 PM)NormalOhioHealth [facility] ANKLE RIGHT WO IV CONTRASTon 01-66-0454XY ANKLE RIGHT WO IV CONTRASTEXAM/TECHNIQUE: MR ANKLE [...] tarsi syndrome. ELECTRONICALLY SIGNED BY: Corina LizamaNot AvailableCOLLEGE HOSPITAL US LOWER EXTREMITY VENOUS DUPLEX RIGHTon 82-25-5062OZFJ US LOWER EXTREMITY VENOUS DUPLEX RIGHTExam: [facility] US LOWER EXTREMITY VENOUS DUPLEX RIGHT [...] the interpreting Radiologist.NormalNot AvailableNICOTINE AND METAB, URon 53-58-0039ZRNS ANABASINE QUANT<5NormalCVan Wert County Hospital on above:Order Comment: Specimen Type: BLOOD SPECIMEN Ordering Facility: [facility] Address: [address] [place], [place] [address]Performed By: #### 72920-0, 2777- #### [facility] CLIA [id number]UR[address] COTININE QUANT<15Normal [facility] on above:Order Comment: Specimen Type: BLOOD SPECIMEN Ordering Facility: [facility] Address: [address] [place], [place] [address]Performed By: #### 33647-0, 2776-08, #### [facility] CLIA [id number] [address] [place], [place] [id number] [facility]ITALUR[facility] NICOT[facility] QUANT<15Normal [facility] on above:Order Comment: Specimen Type: BLOOD SPECIMEN Ordering Facility: [facility] Address: [address] [place], [place] [address]Result Comment: INTERPRETIVE INFORMATION: Nicotine and Metabolites, Urine, Quantitative Methodology: Quantitative Liquid Chromatography-Tandem Mass Spectrometry Positive cutoff: Nicotine 15 ng/mL Cotinine 15 ng/mL 7-AD-Sbgurpgi 50 ng/mL Anabasine 5 ng/mL For medical [...] developed and its performance characteristics determined by [facility]. It has not been cleared or approved by the US Food and Drug Administration. This test was performed in a CLIA certified laboratory and is intended for clinical purposes. Performed By: [facility] [address] [place] [address] Fisheries Biologist: Kulwinder Wilson MD, PhD CLIA Number: [id number] By: #### 91034-8, 27701-29, #### [facility] CLIA [id number] [address] [place] [address] [place] AMERICAURINE 3 [place] COTININE<50Normal [facility] HospitalComment on above:Order Comment: Specimen Type: BLOOD SPECIMEN Ordering Facility: [facility] Address: [address] [place], [place] [address]Performed By: #### 34659-6, 2776-1, #### [facility] CLIA [id number] [address] [place] [address] OF [facility]XR CHEST 2V FRONTAL/LATon 58-58-0601LA CHEST 2V FRONTAL/LAT* * *Final Report* * [...] tissues: Unremarkable. IMPRESSION: No acute radiographic abnormality. Bottle Packing Machine Cleaner: MARYB Transcribe Date/Time: Jun 15 2024 12:32P Dictated by : SUZIE RICARDO MD This examination was interpreted and the report reviewed and electronically signed by: SUZIE RICARDO MD on Jun 15 2024 12:32PM EST [id number] Memorial HospitalXR Chest PA and Lateralon 15-96-6671BQSUJGRGRE: No acute radiographic abnormality. Bottle Packing Machine Cleaner: LEWIS Transcribe Date/Time: Jun 15 2024 12:32P [...] and soft tissues: Unremarkable. DIVISION OF RADIOLOGYProvider, [facility] [place] - 06/15/2024 * * *Final Report* * [...] Unremarkable. IMPRESSION IMPRESSION: No acute radiographic abnormality. Bottle Packing Machine Cleaner: PSCB Transcribe Date/Time: Jun 15 2024 12:32P Dictated by : SUZIE RICARDO MD This examination was interpreted and the report reviewed and electronically signed by: SUZIE RICARDO MD on Jun 15 2024 12:32PM EST [facility] HospitalRadiology Study observation (narrative)Flower HospitalXR Chest PA and LateralOrdered By: [facility] Provider on 28-70-0880Wddyampgn ClinicCNPNon 24-96-8975CYJRKrqxuntro (GENBMI) TIFFANI ALLISON ([id number]) 1985 F Date Time Provider Department 05/17/24 [...] (None) Encounter Status:Closed by KRISTI WATTS on 05/17/24[facility] ECG *CARDIOLOGY ONLY*on 95-67-1475NCC ECG *CARDIOLOGY ONLY* [place] [address] Electrocardiograph Report Signed Patient: Tiffani Allison MR#: [id number] : 1985 Acct:[id number] Age/Sex: 38 / F ADM Date: 05/10/24 Loc: EKGCARDIO [facility]: Felipe Quiñones MD Ordering Provider: Felipe Qiuñones MD Date of Service: 05/10/2405/24/1045 ECG/FPG ECG [...] previous ECGs available Confirmed by Felipe Quiñones ([id number]) on 05/12/2024 10:56:03 AM Referred By: Electronically Signed By: Felipe Quiñones Transcribed By: MUS Signed By Felipe Quiñones MD 05/12/[address] [place] [address] Physician GroupOVon 62-02-7845KFELAztfpo Visit (GENBMI) TIFFANI ALLISON ([id number]) 1985 F Date Time Provider Department 04/24/24 [...] not included)...[facility] 47-83-9189KBGGEjaaushpa (GENBMI) TIFFANI ALLISON ([id number]) 1985 F Date Time Provider Department 04/18/24 [...] (None) Encounter Status:Closed by KRISTI WATTS on 04/18/24[facility] 72-10-8147AYWKIatyhx Visit (JENNIFER) ESTEFANY,TIFFANI ([id number]) 1985 F Date Time Provider Department 04/16/24 [...] No Ran Padron 04/23/2024 8:59 AM Signed [facility] - HISTORY AND [...] findings of this patient (more content not included)...NormalUniversity [facility]als [facility] 89-08-4982TWHOVcxpvfuqc (JENNIFER) TIFFANI ALLISON ([id number]) 1985 F Date Time Provider Department 04/11/24 JAVIER KITCHEN During your visit today, we recorded the following information about you: Javier Kitchen LPN 04/11/2024 4:18 PM Signed Contacted patient, verified name and . Advised of the following Abdominal Surgeries performed and patient had Imaging performed from [facility] 03/29/24 and to bring Imaging with her to appointment. 2018--Gastric Bypass ( [facility], [place], [place]) 2017--Appendectomy ([place], [place]; [facility]) Advised patient will contact to obtain Operative Reports and patient to be sent [employer] Message to contact if any needs or concerns arise, patient acknowledged and verbalized understanding. SANDRITA Luciano Claudine, LPN 04/13/2024 11:39 AM Signed Contacted [facility] for patient's Lap Vertical Gastric Sleeve performed in 2018, no answer to HIM Dept and message left to contact this investment underwriter back. Contacted [facility], [facility] Department. Spoke with Ashley and advised to send fax request to , fax receipt confirmation @ 11:38 am, will monitor for reports for Lap Appy- 2016 Javier Kitchen LPN Allergies As of Date: 04/11/2024 (Not on File) Date Reviewed: Never Reviewed Problem List As Of Date: 04/11/2024 (None) Encounter Status:Closed by JAVIER KITCHEN on 04/11/24[facility] ABDOMEN PELVIS W CONon 00-59-[address] [address] [address] Scan Report Signed Patient: TIFFANI ALLISON MR#: [id number] : 1985 Acct:[id number] Age/Sex: 38 / F ADM Date: 03/29/24 Loc: CT Attending Dr: Adrian Kerr D.O. Ordering Physician: Adrian Kerr D.O. Date of Service: 03/29/24 Procedure(s): CT abdomen pelvis w con Accession Number(s): [id number] cc: ELISABETH BECKMAN [address] [address] Patient Name: TIFFANI ALLISON MRN: [id number] date: 1985 Sex: F Assigned Patient Location: CT Current Patient Location: Accession/Order Number: [id number] Exam Date: 03/29/2024 10:15 Report Date: 03/30/2024 [...] Signed By: 03/30/24 0755 DD/ 0752 TD/TT: Bottle Packing Machine Cleaner:ANDREAHRadiology, Radiologist, - 03/30/2024 [place] [address] CT Scan Report Signed Patient: TIFFANI ALLISON MR#: [id number] : 1985 Acct:[id number] Age/Sex: 38 / F ADM Date: 03/29/24 Loc: CT Attending Dr: Adrian Kerr D.O. Ordering Physician: Adrian Kerr D.O. Date of Service: 03/29/24 Procedure(s): CT abdomen pelvis w con Accession Number(s): [id number] cc: ELISABETH BECKMAN [place] [id number] Patient Name: TIFFANI ALLISON MRN: [facility]:[id number] date: 1985 Sex: F Assigned Patient Location: CT Current Patient Location: Accession/Order Number: [id number] Exam Date: 03/29/2024 10:15 Report Date: 03/30/2024 [...] Signed By: 03/30/24 0755 DD/ 075 TD/TT: Bottle Packing Machine Cleaner: KRISTA HealthcareRadiology Study observation (narrative)NOMS HealthcareCT ABDOMEN PELVIS W CONOrdered By: Radiologist Radiology on 49-96-0579GDGG [employer] Work Phone: Lon [phone]: [phone] Received: 12/13/23754 Status: KENISHA Jerry Num: [id number] Spec Type: Surgical Subm Dr: Adrian Kerr Tissues: A Placenta - 3rd Trimester (Greater than 28 weeks) (PLACENTA) B Fallopian Tube - Sterilization (FT BILATERAL) Procedures: HE/5, Gross/Micro L5, Gross/Micro L2 Age/ Patient Sex Location Account Attending Physician EstefanyTiffani R 38/F LABELL [id number] Adrian Kerr SPEC NUM: [id number] RECD: 12/13/23 STATUS: KENISHA JERRY NUM: [id number] RODERICK: 12/12/[address]: Adrian Kerr ENTERED: 12/13/23 [facility] DR: Tariq,Lab SPEC TYPE: Surgical DEPT: OK [...] and cord, has a trimmed weight Specimen: [id number] Received: 12/13/23 Status: KENISHA Jerry Num: [id number] Spec Type: Surgical Subm Dr: Adrian Kerr Tissues: A Placenta - 3rd Trimester (Greater than 28 weeks) (PLACENTA) B Fallopian Tube - Sterilization (FT BILATERAL) Procedures: /5, Gross/Micro L5, Gross/Micro L2 Patient: Tiffani Allison [id number] (Continued) Specimen: [id number] Received: 12/13/23 (Continued) Gross Description (Continued) Signed (signature on file) Antonio Ahumada MD 12/14/23 1545 Specimen: [id number] Received: 12/13/23 Status: KENISHA Jerry Num: [id number] Spec Type: Surgical Subm Dr: Adrian Kerr Tissues: A Placenta - 3rd Trimester (Greater than 28 weeks) (PLACENTA) B Fallopian Tube - Sterilization (FT BILATERAL) Procedures: HE/5, Gross/Micro L5, Gross/Micro L2 Patient: Estefany,Tiffani R [id number] (Continued) Specimen: [id number] Received: 12/13/23 (Continued) Gross Description (Continued) of [...] luminal centers lined by unremarkable burnham mucosa. Highway Technician sections are submitted in A1 (tube #1) and A2 (tube #2). Clinical history: Previous . , 4, 7, 9, gestational age 37 weeks, small baby CPT Codes 48983 [id number] Specimen: [id number] Received: 12/13/23 Status: KENISHA Jerry Num: [id number] Spec Type: Surgical Subm Dr: Adrian Kerr Tissues: A Placenta - 3rd Trimes (more content not included)...NormalThe [facility] Physician [facility] OB BPP W NON-STRESSon 63-19-7845[place]rs[place] [address] Ultrasound Report Signed Patient: TIFFANI ALLISON MR#: [id number] : 1985 Acct:[id number] Age/Sex: 38 / F ADM Date: 12/09/23 Loc: [facility] 250-[address]: Adrian Kerr D.O. Ordering Physician: Adrian Kerr D.O. Date of Service: 12/09/23 Procedure(s): US OB BPP w non-stress Accession Number(s): [id number] cc: Adrian Kerr D.O.; Yandel More NP [address] [address] Patient Name: TIFFANI ALLISON MRN: [facility]:[id number] date: 1985 Sex: F Assigned Patient Location: [facility] Current Patient Location: [facility] Accession/Order Number: [id number] Exam Date: 12/09/2023 09:34 Report Date: 12/09/2023 [...] Signed By: 12/09/23 1021 DD/ 1019 TD/TT: Bottle Packing Machine Cleaner:ANDREAHRadiology, Radiologist, - 12/09/2023 [place] [address] Ultrasound Report Signed Patient: TIFFANI ALLISON MR#: [id number] : 1985 Acct:[id number] Age/Sex: 38 / F ADM Date: 12/09/23 Loc: [facility] 250-[address]: Adrian Kerr D.O. Ordering Physician: Adrian Kerr D.O. Date of Service: 12/09/23 Procedure(s): US OB BPP w non-stress Accession Number(s): [id number] cc: Adrian Kerr D.O.; Yandel More C[employer] FINISHER HELPER [place] [id number] Patient Name: TIFFANI ALLISON MRN: [id number] date: 1985 Sex: F Assigned Patient Location: [facility] Current Patient Location: [facility] Accession/Order Number: [id number] Exam Date: 12/09/2023 09:34 Report Date: 12/09/2023 [...] Signed By: 12/09/23 1021 DD/ 1019 TD/TT: Bottle Packing Machine Cleaner: KRISTA HealthcareRadiology Study observation (narrative)NOMS HealthcareUS OB BPP W NON-STRESSOrdered By: Radiologist Radiology on 97-34-3187QXUU Healthcare Work Phone: US OB BPP W NON-STRESSon 47-40-5625YeyMidway, [place] [address] Ultrasound Report Signed Patient: TIFFANI ALLISON MR#: [id number] : 1985 Acct:[id number] Age/Sex: 38 / F ADM Date: 12/02/23 Loc: US Attending Dr: Adrian Kerr D.O. Ordering Physician: Adrian Kerr D.O. Date of Service: 12/02/23 Procedure(s): US OB BPP w non-stress Accession Number(s): [id number] cc: Adrian Kerr D.O.; YANDEL MORE M.D. [place] [id number] Patient Name: TIFFANI ALLISON MRN: [id number] date: 1985 Sex: F Assigned Patient Location: US Current Patient Location: US Accession/Order Number: [id number] Exam Date: 12/02/2023 09:49 Report Date: 12/02/2023 [...] Signed By: 12/02/23 1022 DD/ 1019 TD/TT: Bottle Packing Machine Cleaner:ANDREAHRadiologfrank, Radiologist, - 12/02/2023 [place] [address] Ultrasound Report Signed Patient: TIFFANI ALLISON MR#: [id number] : 1985 Acct:[id number] Age/Sex: 38 / F ADM Date: 12/02/23 Loc: US Attending Dr: Adrian Kerr D.O. Ordering Physician: Adrian Kerr D.O. Date of Service: 12/02/23 Procedure(s): US OB BPP w non-stress Accession Number(s): [id number] cc: Adrian Kerr D.O.; YANDEL MORE M.D. The [address] [address] Patient Name: TIFFANI ALLISON MRN: [id number] date: 1985 Sex: F Assigned Patient Location: US Current Patient Location: US Accession/Order Number: [id number] Exam Date: 12/02/2023 09:49 Report Date: 12/02/2023 [...] Signed By: 12/02/23 1022 DD/ 1019 TD/TT: Bottle Packing Machine Cleaner: NOMMaryellen HealthcareRadiology Study observation (narrative)NOMS HealthcareUS OB BPP W NON-STRESSOrdered By: Radiologist Radiology on 20-14-4252JDXN Healthcare Work Phone: US OB BPP W NON-STRESSon 28-98-7459QzhMidway, [place] [address] Ultrasound Report Signed Patient: TIFFANI ALLISON MR#: [id number] : 1985 Acct:[id number] Age/Sex: 38 / F ADM Date: 11/25/23 Loc: US Attending Dr: Adrian Kerr D.O. Ordering Physician: Adrian Kerr D.O. Date of Service: 11/25/23 Procedure(s): US OB BPP w non-stress Accession Number(s): [id number] cc: Adrian Kerr D.O.; YANDEL MORE M.D. [place] [id number] Patient Name: TIFFANI ALLISON MRN: [id number] date: 1985 Sex: F Assigned Patient Location: [facility] Current Patient Location: Accession/Order Number: [id number] Exam Date: 11/25/2023 09:36 Report Date: 11/25/2023 [...] Signed By: 11/25/23 1209 DD/ 1206 TD/TT: Bottle Packing Machine Cleaner:ANDREAHRadiology, Radiologist, MD - 11/25/2023 [place] [address] Ultrasound Report Signed Patient: TIFFANI ALLISON MR#: [id number] : 1985 Acct:[id number] Age/Sex: 38 / F ADM Date: 11/25/23 Loc: US Attending Dr: Adrian Kerr D.O. Ordering Physician: Adrian Kerr D.O. Date of Service: 11/25/23 Procedure(s): US OB BPP w non-stress Accession Number(s): [id number] cc: Adrian Kerr D.O.; YANDEL MORE M.D. The [place] [id number] Patient Name: TIFFANI ALLISON MRN: [id number] date: 1985 Sex: F Assigned Patient Location: [facility] Current Patient Location: Accession/Order Number: [id number] Exam Date: 11/25/2023 09:36 Report Date: 11/25/2023 [...] Signed By: 11/25/23 1209 DD/ 1206 TD/TT: Bottle Packing Machine Cleaner: NOMS HealthcareRadiology Study observation (narrative)NOMS HealthcareUS OB BPP W NON-STRESSOrdered By: Radiologist Radiology on 18-71-5465HDLT Healthcare Work Phone: US OB BPP W NON-STRESSon 89-63-1905FnuMidway, [place] [address] Ultrasound Report Signed Patient: TIFFANI ALLISON MR#: [id number] : 1985 Acct:[id number] Age/Sex: 38 / F ADM Date: 11/17/23 Loc: US Attending Dr: Adrian Kerr D.O. Ordering Physician: Adrian Kerr D.O. Date of Service: 11/17/23 Procedure(s): US OB BPP w non-stress Accession Number(s): [id number] cc: Adrian Kerr D.O.; YANDEL MORE M.D. [address] [address] Patient Name: TIFFANI ALLISON MRN: [id number] date: 1985 Sex: F Assigned Patient Location: [facility] Current Patient Location: Accession/Order Number: [id number] Exam Date: 11/17/2023 20:12 Report Date: 11/18/2023 [...] Ayala M.D. Signed By: 11/18/2342 DD/ TD/TT: Bottle Packing Machine Cleaner:ANDREAHRadiology, Radiologist, - 11/18/2023 [place] [address] Ultrasound Report Signed Patient: TIFFANI ALLISON MR#: [id number] : 1985 Acct:[id number] Age/Sex: 38 / F ADM Date: 11/17/23 Loc: US Attending Dr: Adrian Kerr D.O. Ordering Physician: Adrian Kerr D.O. Date of Service: 11/17/23 Procedure(s): US OB BPP w non-stress Accession Number(s): [id number] cc: Adrian Kerr D.O.; YANDEL MORE M.D. The [address] [address] Patient Name: TIFFANI ALLISON MRN: [id number] date: 1985 Sex: F Assigned Patient Location: [facility] Current Patient Location: Accession/Order Number: [id number] Exam Date: 11/17/2023 20:12 Report Date: 11/18/2023 [...] M.D. Signed By: 11/18/2342 DD/ 9 TD/TT: Bottle Packing Machine Cleaner: KRISTA HealthcareRadiology Study observation (narrative)NOMMaryellen NgUS OB BPP W NON-STRESSOrdered By: Radiologist Radiology on 26-97-7304HNRS [employer] Work Phone: US OB GROWTHon [phone] [place] [phone] Ultrasound Report Signed Patient: TIFFANI ALLISON MR#: [id number] : 1985 Acct:[id number] Age/Sex: 38 / F ADM Date: 11/15/23 Loc: [facility] Attending Dr: Kassandra Alfaro Ordering Physician: Kassandra Alfaro Date of Service: 11/15/23 Procedure(s): US OB growth Accession Number(s): [id number] cc: YANDEL Cevallos M.D. [address] [address] Patient Name: TIFFANI ALLISON MRN: [id number] date: 1985 Sex: F Assigned Patient Location: [facility] Current Patient Location: [facility] Accession/Order Number: [id number] Exam Date: 11/15/2023 08:03 Report Date: 11/15/2023 [...] Lazcano M.D. Signed By: 11/15/2348 DD/ TD/TT: Bottle Packing Machine Cleaner:ANDREAHRadiology, Radiologist, - 11/15/2023 [place] [address] Ultrasound Report Signed Patient: TIFFANI ALLISON MR#: [id number] : 1985 Acct:[id number] Age/Sex: 38 / F ADM Date: 11/15/23 Loc: [facility] Attending Dr: Kassandra Alfaro Ordering Physician: Kassandra Alfaro Date of Service: 11/15/23 Procedure(s): US OB growth Accession Number(s): [id number] cc: Kassandra Alfaro; YANDEL MORE M.D. The [place] [id number] Patient Name: TIFFANI ALLISON MRN: [id number] date: 1985 Sex: F Assigned Patient Location: [facility] Current Patient Location: [facility] Accession/Order Number: [id number] Exam Date: 11/15/2023 08:03 Report Date: 11/15/2023 [...] Normal interval growth Electronically authenticated by: PEDRO LAZCNAO Date: 11/15/2023 08:46 Dictated By: Pedro Lazcano M.D. Signed By: 11/15/2348 DD/ 5 TD/TT: Bottle Packing Machine Cleaner: [facility] HOSPITALMaryellen HealthcareRadiology Study observation (narrative)[facility] OB GROWTHOrdered By: Radiologist Radiology on 30-81-3405GCIYSaint John's [facility] System Work Phone: Urinalysis macro (dipstick) panel (U)on 09-15-2023 Bilirubin, UANegativeNegative - 4(70) +++ mg/dLNOMS HealthcareBlood, UANegative Negative - 50 Maikol/mcLNOMS HealthcareClarity, UAClearNOMS HealthcareColor, UA YellowNOMS HealthcareGlucose, UANegativeNegative - 2000(110) ++++ mg/dLNOCT HealthcareInterpretation and review of laboratory resultsAbnormalNOCameron Regional Medical Center Ketones, UANegativeNegative - 160(16) ++++ mg/dLNOMS HealthcareLeukocytes, UA NegativeNegative - 500+++ Endy/mcLNOMS HealthcareNitrite, UANegativeNegative - PositiveNOMS HealthcarepH, UA6.05 - 9NOMS HealthcareProtein, UATraceNegative - 2000(20) ++++ mg/dLNOMS HealthcareSpec Grav, UA1.0251 - 1.03NOMS Healthcare Urobilinogen, UA0.20.2 - 12 mg/dLNOMS HealthcareNOMS HealthcareNo Panel InformationOrdered By: Radiologist Radiology on 10-98-9140MFSPSaint John's Health System Work Phone: No Panel Informationon 73-18-2302Dzpmxwqdt Study observation (narrative)NOMS HealthcareUS OB ANATOMYon 40-82-9992KmfMidway, [place] [address] Ultrasound Report Signed Patient: TIFFANI ALLISON MR#: [id number] : 1985 Acct:[id number] Age/Sex: 37 / F ADM Date: 08/18/23 Loc: US Attending Dr: Adrian Kerr D.O. Ordering Physician: Adrian Kerr D.O. Date of Service: 08/18/23 Procedure(s): US OB anatomy Accession Number(s): [id number] cc: Adrian Kerr D.O.; YANDEL MORE M.D. [address] [address] Patient Name: TIFFANI ALLISON MRN: [id number] date: 1985 Sex: F Assigned Patient Location: US Current Patient Location: US Accession/Order Number: [id number] Exam Date: 08/18/2023 11:06 Report Date: 08/18/2023 [...] Signed By: 08/18/23 1248 DD/ 1245 TD/TT: Bottle Packing Machine Cleaner:TBHRadiology, Radiologist, - 08/18/2023 [place] [address] Ultrasound Report Signed Patient: TIFFANI ALLISON MR#: [id number] : 1985 Acct:[id number] Age/Sex: 37 / F ADM Date: 08/18/23 Loc: US Attending Dr: Adrian Kerr D.O. Ordering Physician: Adrian Kerr D.O. Date of Service: 08/18/23 Procedure(s): US OB anatomy Accession Number(s): [id number] cc: Adrian Kerr D.O.; YANDEL MORE M.D. [address] [address] Patient Name: TIFFANI ALLISON MRN: [id number] date: 1985 Sex: F Assigned Patient Location: US Current Patient Location: Accession/Order Number: [id number] Exam Date: 08/18/2023 11:06 Report Date: 08/18/2023 [...] 5 days ELPIDIO by current US: 12/31/2023 ELIPDIO by EDC: 01/02/2024 US/US OB anatomy IMPRESSION: Suboptimal visualization of the ventricular outflow tracts Nonvisualization three-vessel cord Otherwise normal anatomy scan Closed cervix measuring 5.4 cm *Reference: [employer] Practice Guideline for the performance of Obstetric Ultrasound Examinations, May 01, 2007. Electronically authenticated by: PEDRO LAZCANO Date: 08/18/2023 12:45 Dictated By: Pedro Lazcano M.D. Signed By: 08/18/23 1248 DD/ 1245 TD/TT: Bottle Packing Machine Cleaner: KRISTA Jaramillo OB CERVICAL LENGTHon 81-13-2572JvpMidway, [place] [address] Ultrasound Report Signed Patient: TIFFANI ALLISON MR#: [id number] : 1985 Acct:[id number] Age/Sex: 37 / F ADM Date: 08/18/23 Loc: US Attending Dr: Adrian Kerr D.O. Ordering Physician: Adrian Kerr D.O. Date of Service: 08/18/23 Procedure(s): US OB cervical length Accession Number(s): [id number] cc: Adrian Kerr D.O.; YANDEL MORE M.D. [place] [address] Patient Name: TIFFANI ALLISON MRN: [id number] date: 1985 Sex: F Assigned Patient Location: Current Patient Location: US Accession/Order Number: [id number] Exam Date: 08/18/2023 11:06 Report Date: 08/18/2023 [...] Signed By: 08/18/23 1248 DD/ 1245 TD/TT: Bottle Packing Machine Cleaner:ISAÍASadiologfrank, Radiologist, - 08/18/2023 [place] [address] Ultrasound Report Signed Patient: TIFFANI ALLISON MR#: [id number] : 1985 Acct:[id number] Age/Sex: 37 / F ADM Date: 08/18/23 Loc: US Attending Dr: Adrian Kerr D.O. Ordering Physician: Adrian Kerr D.O. Date of Service: 08/18/23 Procedure(s): US OB cervical length Accession Number(s): [id number] cc: Adrian Kerr D.O.; YANDEL MORE M.D. The [place] [address] Patient Name: TIFFANI ALLISON MRN: [id number] date: 1985 Sex: F Assigned Patient Location: US Current Patient Location: US Accession/Order Number: [id number] Exam Date: 08/18/2023 11:06 Report Date: 08/18/2023 [...] Signed By: 08/18/23 1248 DD/ 1245 TD/TT: Bottle Packing Machine Cleaner: KRISTA NgFechris Free Cell DNAon 28-06-7048[facility] OB TRANSVAGINALon 22-24-0237[address] [address] Ultrasound Report Signed Patient: Tiffani Allison MR#: [id number] : 1985 Acct:[id number] Age/Sex: 37 / F ADM Date: 05/13/23 Loc: [place] Attending Dr: Adrian Kerr D.O. Ordering Physician: Adrian Kerr D.O. Date of Service: 05/13/23 Procedure(s): US OB transvaginal Accession Number(s): [id number] cc: Adrian Kerr D.O.; YANDEL MORE M.D. The [address] [address] Patient Name: TIFFANI ALLISON MRN: [facility]:[id number] date: 1985 Sex: F Assigned Patient Location: [place] Current Patient Location: [place] Accession/Order Number: [id number] Exam Date: 05/13/2023 08:39 Report Date: 05/13/2023 [...] M.D. Signed By: 05/13/23 1517 DD/ TD/TT: Bottle Packing Machine Cleaner:ANDREAHRadiology, Radiologist, MD - 05/13/2023 [place] [address] Ultrasound Report Signed Patient: Tiffani Allison MR#: [id number] : 1985 Acct:[id number] Age/Sex: 37 / F ADM Date: 05/13/23 Loc: [place] Attending Dr: Adrian Kerr D.O. Ordering Physician: Adrian Kerr D.O. Date of Service: 05/13/23 Procedure(s): US OB transvaginal Accession Number(s): [id number] cc: Adrian Kerr D.O.; YANDEL MORE M.D. [place] [address] Patient Name: TIFFANI ALLISON MRN: [facility]:[id number] date: 1985 Sex: F Assigned Patient Location: [place] Current Patient Location: [place] Accession/Order Number: [id number] Exam Date: 05/13/2023 08:39 Report Date: 05/13/2023 [...] M.D. Signed By: 05/13/237 DD/ 13 TD/TT: Bottle Packing Machine Cleaner: KRISTA HealthcareRadiology Study observation (narrative)KRISTA HealthcareUS OB TRANSVAGINALOrdered By: Radiologist Radiology on 68-50-9941[facility] Work Phone: HCG ( test) IA.rapid Ql (U)Ordered By: Denys Gallego on 53-17-6168SNS ( test) Ql (U)NegativeOhioHealth [facility] AUTO DIFFon 20-03-8295AQBQ #0.0 103/ulNormal0.0-0.1 The [facility] TownshipComment on above:Performed By: #### FERR, FETIBC #### [facility] [address] [place] [address] Dr. Michele ObrienBasophils/100 WBC (Bld)0.5 %Normal0.2-2.0The [facility] Comment on above:Performed By: #### FERR, FETIBC #### [facility] [address] [place] [address] Dr. Michele Rodriguez #0.2 103/ulNormal0.0-0.7The [facility] TownshipComment on above: Performed By: #### FERR, FETIBC #### [facility] [address] [place] [address] Dr. Michele Haysosinophils/100 WBC (Bld)2.6 %Normal0.9-7.0The [facility] Comment on above:Performed By: #### FERR, FETIBC #### [facility] [address] [place] [address] Dr. Michele Haysrythrocyte distribution width (RBC) [Ratio]19.1 %Critically high 11.0-15.0The [facility] TownshipComment on above:Performed By: #### FERR, FETIBC #### [facility] [address] [place] [address] Dr. Michele ObrienHematocrit (Bld) [Volume fraction]37.6 %Pypqpl62.0-48.0The [facility] TownshipComment on above:Performed By: #### FERR, FETIBC #### [facility] [address] [place] [address] Dr. Michele ObrienHemoglobin (Bld) [Mass/Vol]11.9 g/dLCritically low12.0-16.0The [facility] TownshipComment on above:Performed By: #### FERR, FETIBC #### [facility] [address] [place] [address] Dr. Michele Higgins #0.03 10e3/ulNormal0.00-0.03The [facility] TownshipComment on above:Performed By: #### FERR, FETIBC #### [facility] [address] [place] [address] Dr. Michele Higgins %0.3 %Normal0.0-0.5The [facility] TownshipComment on above: Performed By: #### FERR, FETIBC #### [facility] [address] [place] [address] Dr. Michele Pérez #1.6 103/ulNormal1.2-3.8The [facility] TownshipComment on above:Performed By: #### FERR, FETIBC #### [facility] [address] [place] [address] Dr. Michele Gomezhocytes/100 WBC (Bld)18.4 %Critically low20.5-60.0The [facility] TownshipComment on above:Performed By: #### FERR, FETIBC #### [facility] [address] [place] [address] Dr. Michele oStoUAL DIFF REQNONormalThe [facility] TownshipComment on above: Performed By: #### FERR, FETIBC #### [facility] [address] [place] [address] Dr. Michele Briones (RBC) [Entitic mass]23.7 pgCritically low26.7-34.0The [facility] TownshipComment on above:Performed By: #### FERR, FETIBC #### [facility] [address] [place] [address] Dr. Michele Briones (RBC) [Mass/Vol]31.6 g/fZBwojzo87.9-35.2The [facility] TownshipComment on above:Performed By: #### FERR, FETIBC #### [facility] [address] [place] [address] Dr. Michele Briones (RBC) [Entitic vol]74.9 fLCritically low81.0-99.0The [facility] TownshipComment on above:Performed By: #### FERR, FETIBC #### [facility] [address] [place] [address] Dr. Michele Hagen #0.5 103/ulNormal0.3-0.8The [facility] TownshipComment on above:Performed By: #### FERR, FETIBC #### [facility] [address] [place] [address] Dr. Michele Stinsonocytes/100 WBC (Bld)5.9 %Normal1.7-12.0The [facility] Comment on above:Performed By: #### FERR, FETIBC #### [facility] [address] [place] [address] Dr. Michele Wilson #6.4 103/ulNormal1.4-6.5The [facility] TownshipComment on above:Performed By: #### FERR, FETIBC #### [facility] [address] [place] [address] Dr. Michele Tamezutrophils/100 WBC (Bld)72.3 %Zwiewt49.0-75.0The [facility] TownshipComment on above:Performed By: #### FERR, FETIBC #### [facility] [address] [place] [address] Dr. Michele Sue mean volume (Bld) [Entitic vol]10.2 fLNormal9.5-13.5The [facility] TownshipComment on above:Performed By: #### FERR, FETIBC #### [facility] [address] [place] [address] Dr. Michele ObrienPLT243 103/zuQbzuzk194-080Ztw [facility] TownshipComment on above: Performed By: #### FERR, FETIBC #### [facility] [address] [place] [address] Dr. Michele ObrienRBC5.02 106/ulNormal4.20-5.40The [facility] TownshipComment on above:Performed By: #### FERR, FETIBC #### [facility] [address] [place] [address] Dr. Michele ObrienWBC8.9 103/ulNormal4.0-11.0[facility], Incment on above: Performed By: #### FERR, FETIBC #### [facility] [address] [place] [address] Dr. Michele Rousseau ABD/PELVIS WO CONon 16-08-5766DE ABD/PELVIS WO CONEXAMINATION: CT ABD/PELVIS WO CON, [...] Electronically authenticated by: ALEXA WHITE Date: 2022-12-28 02:25[place] URINE PROFILEon 37-45-2306Hllwdbgbr Ql (U)NegativeNormal NEGATIVEThe [facility] TownshipComment on above:Performed By: #### HIV12 #### [facility] [address] [place] [address] Dr. Michele Medel (U)CLEARNormalCLEARThe [facility] TownshipComment on above: Performed By: #### HIV12 #### [facility] [address] [address] [address] Michele Irizarry (U)LT. YELLOWNormalYELLOWThe [facility] TownshipComment on above:Performed By: #### HIV12 #### [facility] [address] [place] [address] Dr. Michele Chadwick micrscopic examination will be performed if indicated. NormalThe [facility] TownshipComment on above:Performed By: #### HIV12 #### [facility] [address] [address] [address] Michele ObrienGlucose Ql (U)NegativeNormalNEGATIVEGuernsey Memorial HospitalComment on above:Performed By: #### HIV12 #### [facility] [address] [address] [address] Michele ObrienHemoglobin Ql (U)MODERATEAbnormalNEGATIVEGuernsey Memorial Hospital Comment on above:Performed By: #### HIV12 #### [facility] [address] [address] [address] Michele ObrienKetones Ql (U)NegativeNormalNEGATIVEGuernsey Memorial HospitalComment on above:Performed By: #### HIV12 #### [facility] [address] [place] [address] Dr. Michele ObrienLEUKOCYTESNegativeNormalNEGATIVEGuernsey Memorial HospitalComment on above:Performed By: #### HIV12 #### [facility] [address] [place] [address] Dr. Michele ObrienNitrite Ql (U)NegativeNormalNEGATIVEGuernsey Memorial HospitalComment on above:Performed By: #### HIV12 #### [facility] [address] [address] [address] Michele ObrienpH (U)5.5 [pH]Normal5-9[facility] HospitalComment on above: Performed By: #### HIV12 #### [facility] [address] [address] [address] Michele ObrienSPEC GRAVITY1.237Bqqgpu3.005-<=1.025Gu[facility]sey Memorial HospitalComment on above:Performed By: #### HIV12 #### [facility] [address] [place] [address] Dr. Michele Salazar PROTEINNegativeUniversity Health Lakewood Medical CenteralNEGATIVE/ TRACEGuernsey Memorial Hospital Comment on above:Performed By: #### HIV12 #### [facility] [address] [address] [address] Michele Perez MICRO INDINDICATEDNoalThFirelands Regional Medical CenterComment on above: Performed By: #### HIV12 #### [facility] [address] [place] [address] Dr. Michele Barcenas Qn (U)0.2 {Ijeoma'U}/dLNormal0.2 - 1.0The [facility] on above:Performed By: #### HIV12 #### [facility] [address] [place] [address] Dr. Michele Fuchs HCG QUALon 27-69-6514NELOEEDYK, QUALNegativeNormalNEGATIVE The [facility] TownshipComment on above:Performed By: #### PREG #### [facility] [address] [place] [address] Dr. Michele Pena 14(COMP METB)on 75-96-6569Ffhakfv [Mass/Vol]3.4 g/dLNormal 3.4-5.0The [facility] TownshipComment on above:Performed By: #### CMP #### [facility] [address] [place] [address] Dr. Michele ObrienAlbumin/Globulin [Mass ratio]1.1 {ratio}NormalThe [facility] Hospitalment on above:Performed By: #### CMP #### [facility] [address] [place] [address] Dr. Michele Carranza [Catalytic activity/Vol]73 U/VOpwreo73-858Ytn [facility] Hospitalment on above:Performed By: #### CMP #### [facility] [address] [place] [address] Dr. Michele Glover [Catalytic activity/Vol]18 U/BVlcmoy20-82Kso [facility] Hospitalment on above:Performed By: #### CMP #### [facility] [address] [place] [address] Dr. Michele Bautista gap [Moles/Vol]11.9 mmol/LNormalThe [facility] on above:Performed By: #### CMP #### [facility] [address] [place] [address] Dr. Michele ObrienAST [Catalytic activity/Vol]13 U/LCritically ohz62-10Wix [facility] TownshipComment on above:Performed By: #### CMP #### [facility] [address] [address] [address] Michele ObrienBilirubin [Mass/Vol]0.1 mg/dLCritically low0.2-1.0The [facility] TownshipComment on above:Performed By: #### CMP #### [facility] [address] [place] [address] Dr. Michele ObrienCalcium [Mass/Vol]8.6 mg/dLNormal8.5-10.1The [facility] Comment on above:Performed By: #### CMP #### [facility] [address] [place] [address] Dr. Michele ObrienChloride [Moles/Vol]105 mmol/WOwifig38-661Alk [facility] Comment on above:Performed By: #### CMP #### [facility] [address] [place] [address] Dr. Michele ObrienCO2 [Moles/Vol]26.7 mmol/ZCdruhn20.0-32.0The [facility] Comment on above:Performed By: #### CMP #### [facility] [address] [place] [address] Dr. Michele ObrienCreatinine [Mass/Vol]0.85 mg/dLNormal0.55-1.02The [facility] TownshipComment on above:Performed By: #### CMP #### [facility] [address] [place] [address] Dr. Michele HaysGFR-AF LIBYAN>60Normal>=60The [facility] TownshipComment on above:Performed By: #### CMP #### [facility] [address] [place] [address] Dr. Michele HaysGFR-NON AF LIBYAN>60Normal>=60The [facility] TownshipComment on above:Performed By: #### CMP #### [facility] [address] [place] [address] Dr. Michele ObrienGlobulin (S) [Mass/Vol]3.1 g/dLNormalThe [facility]q HospitalComment on above:Performed By: #### CMP #### [facility] [address] [address] [address] Michele ObrienGlucose [Mass/Vol]123 mg/dLCritically tkmo45-832Icm [facility] TownshipComment on above:Performed By: #### CMP #### [facility] [address] [address] [address] Michele ObrienPotassium [Moles/Vol]3.6 mmol/LNormal3.5-5.1The [facility] Comment on above:Performed By: #### CMP #### [facility] [address] [address] [address] Michele ObrienProtein [Mass/Vol]6.5 g/dLNormal6.4-8.2[facility] Comment on above:Performed By: #### CMP #### [facility] [address] [address] [address] Michele ObrienSodium [Moles/Vol]140 mmol/FWluztw915-618Myj [facility] Comment on above:Performed By: #### CMP #### [facility] [address] [address] [address] Michele ObrienUrea nitrogen [Mass/Vol]14.0 mg/dLNormal7.0-18.0The [facility] TownshipComment on above:Performed By: #### CMP #### [facility] [address] [address] [address] Michele Colin nitrogen/Creatinine [Mass ratio]16.5 mg/mgNoLakeHealth TriPoint Medical CenterComment on above:Performed By: #### CMP #### [facility] [address] [address] [address] Michele ObrienURINE MICROSCOPIC ONLYon 27-04-2098ZIWNULLUJAZENWqdncgvaRGKO SEEN [facility] HospitalComment on above:Performed By: #### HIV12 #### [facility] [address] [address] [address] Michele ObrienBacteria identified Cx Nom (U)NOT INDICATEDNormalThe [facility]ariq HospitalComment on above:Performed By: #### HIV12 #### [facility] [address] [place] [address] Dr. Michele ObrienCASTDAREN SEENNormalNONE SEENOhioHealth Grant Medical Center on above:Performed By: #### HIV12 #### [facility] [address] [place] [address] Dr. Michele ObrienCrystals LM Nom (Urine sed)NONE SEENNormalNONE SEENThe [facility] TownshipComrehabilitation institute [facility] [place] on above:Performed By: #### HIV12 #### [facility] [address] [place] [address] Dr. Bautista ChangEpithelial cells LM Ql (Urine sed)FEWAbnormalNONE SEEN /RAREThe [facility] on above:Performed By: #### HIV12 #### [facility] [address] [place] [address] Dr. Michele OakleyCOUSTRACEAbnormalNONE SEENOhioHealth Grant Medical Center on above:Performed By: #### HIV12 #### [facility] [address] [place] [address] Dr. Michele ObrienHsbusGRR11-83Wmxujrcp5-3Hxk [facility] on above: Performed By: #### HIV12 #### [facility] [address] [place] [address] Dr. Michele ObrienWBC0-2AbnormalNONE SEENOhioHealth Grant Medical Center on above: Performed By: #### HIV12 #### [facility] [address] [place] [address] Dr. Michele Crane 1 AND 2 WITH REFLEXon 55-45-5868MRF Screen 4th Generation wRfxNon-ReactiveNormalNon ReactiveThe [facility] on above:Result Comment: HIV Negative HIV-1/HIV-2 antibodies and HIV-1 p24 antigen were NOT detected. There is no laboratory evidence of HIV infection.Performed By: #### HIV12 #### [facility] [address] [place] [address] Dr. Michele ObrienFERRITINon 85-73-4507Qksuhpia [Mass/Vol]6.0 ng/mLCritically low 6.2-137.0The [facility] TownshipComment on above:Performed By: #### FERR, FETIBC #### [facility] [address] [place] [address] Dr. Michele ObrienFRELSA T3on 77-57-9690AXWR T31.87 pg/mlLCritically low2.18-3.98The [facility] TownshipComment on above:Performed By: #### HIV12 #### [facility] [address] [place] [address] Dr. Michele ObrienHEMOGRAM AND PLATELon 09-87-0755Qmfcluobti (Bld) [Volume fraction]35.7 %Critically low36.0-48.0The [facility] TownshipComment on above: Performed By: #### HH #### [facility] [address] [place] [address] Dr. Michele ObrienHemoglobin (Bld) [Mass/Vol]10.4 g/dLCritically low12.0-16.0The [facility] TownshipComment on above:Performed By: #### HH #### [facility] [address] [place] [address] Dr. Michele Briones (RBC) [Entitic mass]20.0 pgCritically low26.7-34.0The [facility] Hospitalment on above:Performed By: #### HH #### [facility] [address] [place] [address] Dr. Michele Briones (RBC) [Mass/Vol]29.1 g/dLCritically low29.9-35.2The [facility] TownshipComment on above:Performed By: #### HH #### [facility] [address] [place] [address] Dr. Michele Briones (RBC) [Entitic vol]68.5 fLCritically low81.0-99.0The [facility] TownshipComment on above:Performed By: #### HH #### [facility] [address] [place] [address] Dr. Michele ObrienPLT241 103/lrOfkdll788-589Zqa [facility] TownshipComment on above: Performed By: #### HH #### [facility] [address] [place] [address] Dr. Michele ObrienRBC5.21 106/ulNormal4.20-5.40The [facility] TownshipComment on above:Performed By: #### HH #### [facility] [address] [place] [address] Dr. Michele ObrienWBC6.9 103/ulNormal4.0-11.0The [facility] TownshipComment on above: Performed By: #### HH #### [facility] [address] [place] [address] Dr. Michele Kee AND TIBCon 10-16-2022% SATURATION4.5 %NormalThe [facility] TownshipComment on above:Performed By: #### GIBRAN FETIBC #### [facility] [address] [place] [address] Dr. Michele Kee [Mass/Vol]18.0 ug/dLCritically low50.0-170.0The [facility] TownshipComment on above:Performed By: #### GIBRAN FETIBC #### [facility] [address] [place] [address] Dr. Michele Campbell SQUQKM537.0 ug/vSCmeroi780.0-450.0[facility] Comment on above:Performed By: #### GIBRAN, FETIBC #### [facility] [address] [place] [address] Dr. Michele Crockett W/ REFLEX TO FT4on 71-65-8283QYV2.577 uIU/mLNormal0.358-3.740 [facility] HospitalComment on above:Performed By: #### HIV12 #### [facility] [address] [place] [address] Dr. Michele ObrienVITAMIN Con 52-30-8588Yvgsosf C0.2 mg/dLCritically low0.4-2.0[facility] HospitalComment on above:Result Comment: Vitamin C deficiency is generally defined as plasma or serum concentrations less than 0.2 mg/dL and levels between 0.2 and 0.4 mg/dL are considered low.Performed By: #### GIBRAN FETIBC #### [facility] [address] [place] [address] Dr. Michele Hernandez Aon 56-56-6870Ivubojn A33.6 ug/lEHpfmqs14.9-57.3The [facility] TownshipComment on above:Result Comment: Reference intervals for vitamin [...] and Drug Administration.Performed By: #### VITAMA #### [facility] [address] [place] [address] Dr. Michele ObrienVITAMIN Kodi 30-90-1952Fmkzyzq E (Alpha T)11.9 mg/LNormal5.9-19.4 The [facility] TownshipComment on above:Performed By: #### VITAE #### [facility] [address] [place] [address] Dr. Michele ObrienVitamin E (Gamma T)1.5 mg/LNormal0.7-4.9The [facility] Comment on above:Result Comment: Reference intervals for alpha and gamma- tocopherol determined from National Health and Nutrition Examination Survey, 0691-8793. Individuals with alpha-tocopherol levels less than 5.0 mg/L are considered vitamin E deficient.Performed By: #### VITAE #### [facility] [address] [place] [address] Dr. Michele ObrienVITAMIN Garrett 13-61-2742Munfebm K10.24 ng/mLNormal0.10-2.20The [facility] TownshipComment on above:Performed By: #### GIBRAN FETIBC #### [facility] [address] [place] [address] Dr. Michele bOrienSECHAYOIUM, PLASMAon 66-46-0733Jhdsmitt, Serum/Hxnavv655 ug/LNormal 93-198The [facility] TownshipComment on above:Performed By: #### HIV12 #### [facility] [address] [place] [address] Dr. Michele ObrienVITAMIN B1 (THIAMINE)on 77-76-5278Pas. B1, Whole Gewew521.2 nmol/QBnveej34.5-200.0The [facility] Hospitalment on above:Performed By: #### RILEY LEARY #### [facility] [address] [place] [address] Dr. Michele Boland SERUM OR PLASMAon 03-14-6180Crtj, Plasma or Serum69 ug/dL Rxcnzy39-175Pfv [facility] TownshipComrehabilitation [facility] [place] on above:Result Comment: Detection Limit = 5Performed By: #### HIV12 #### [facility] [address] [place] [address] Dr. Michele ObrienFERRITINon 01-35-5996Vnflplju [Mass/Vol]5.0 ng/mLCritically low 6.2-137.0The [facility] on above:Performed By: #### RILEY LEARY #### [facility] [address] [place] [address] Dr. Michele ObrienFREE T4on 64-87-4496Znzf T4 [Mass/Vol]1.01 ng/dLNormal0.76-1.46 The [facility] on above:Performed By: #### HIV12 #### [facility] [address] [place] [address] Dr. Michele ObrienGLYCOHEMOGLOBIN A1Con 39-65-4735NOI RECOMMENDATIONSEE BELOWNormal The [facility] TownshipComre[facility] [place] on above:Result Comment: ADA RECOMMENDED LIMIT 4.0 - 6.0 ADA THERAPEUTIC TARGET < 7.0 ACTION SUGGESTED > 7.0Performed By: #### HIV12 #### [facility] [address] [place] [address] Dr. Michele ObrienGlucose [Mass/Vol]80 mg/dLNormalThe [facility] [facility] on above:Performed By: #### HIV12 #### [facility] [address] [place] [address] Dr. Michele ObrienHbA1c (Bld) [Mass fraction]4.4 %Critically low4.5-6.2The [facility] TownshipComment on above:Performed By: #### HIV12 #### [facility] [address] [place] [address] Dr. Michele ObrienHEMOGRAM AND PLATELon [id number] (Bld) [Volume fraction]29.3 %Critically low36.0-48.0The [facility] HospitalComment on above: Performed By: #### HIV12 #### [facility] [address] [place] [address] Dr. Michele ObrienHemoglobin (Bld) [Mass/Vol]9.3 g/dLCritically low12.0-16.0The [facility] TownshipComment on above:Performed By: #### HIV12 #### [facility] [address] [place] [address] Dr. Michele BrionesH (RBC) [Entitic mass]20.1 pgCritically low26.7-34.0The [facility] TownshipComment on above:Performed By: #### HIV12 #### [facility] [address] [place] [address] Dr. Michele BrionesHC (RBC) [Mass/Vol]31.7 g/pSYnbgpv07.9-35.2The [facility] TownshipComment on above:Performed By: #### HIV12 #### [facility] [address] [place] [address] Dr. Michele BrionesV (RBC) [Entitic vol]63.4 fLCritically low81.0-99.0The [facility] TownshipComment on above:Performed By: #### HIV12 #### [facility] [address] [place] [address] Dr. Michele ObrienPLT213 103/gdDricbp559-930Zrg [facility] TownshipComment on above: Performed By: #### HIV12 #### [facility] [address] [place] [address] Dr. Michele ObrienRBC4.62 106/ulNormal4.20-5.40The [facility] TownshipComment on above:Performed By: #### HIV12 #### [facility] [address] [place] [address] Dr. Michele ObrienWBC5.8 103/ulNormal4.0-11.0The [facility] TownshipComment on above: Performed By: #### HIV12 #### [facility] [address] [place] [address] Dr. Michele Kee AND TIBCon 08-20-2022% SATURATION6.5 %NormalThe [facility] TownshipComment on above:Performed By: #### FERR, FETIBC #### [facility] [address] [place] [address] Dr. Michele Kee [Mass/Vol]22.0 ug/dLCritically low50.0-170.0The [facility] TownshipComment on above:Performed By: #### FERR, FETIBC #### [facility] [address] [place] [address] Dr. Michele ArguellesC TWBVER137.0 ug/tEHgynwn198.0-450.0[facility] Comment on above:Performed By: #### FERR, FETIBC #### [facility] [address] [place] [address] Dr. Michele ObrienLIPID PROFILEon [id number]-HDL RATIO NORMSWayne HospitalComment on above:Result Comment: 3.3 - 4.4 LOW RISK 4.4 - 7.1 AVERAGE RISK 7.1 - 11.0 MODERATE RISK >11.0 HIGH RISKPerformed By: #### FERR, FETIBC #### [facility] [address] [place] [address] Dr. Michele ObrienCholesterol [Mass/Vol]146 mg/dLNormal<=200[facility] Comment on above:Performed By: #### FERR, FETIBC #### [facility] [address] [place] [address] Dr. Michele ObrienCholesterol in HDL [Mass/Vol]58 mg/oOIqnbsm92-22Ish [facility] TownshipComment on above:Performed By: #### FERR, FETIBC #### [facility] [address] [address] [address] Michele ObrienCholesterol in LDL [Mass/Vol]66.8 mg/dLCommunity Memorial HospitalComment on above:Performed By: #### FERR, FETIBC #### [facility] [address] [place] [address] Dr. Michele Esparzaesterol.total/Cholesterol in HDL [Mass ratio]2.5 {ratio} NormalThe [facility] TownshipComment on above:Performed By: #### FERR, FETIBC #### [facility] [address] [place] [address] Dr. Michele Katz NORMAL> or = 60 mg/dl - LOW CARDIOVASCULAR RISK <40 mg/dl - HIGH CARDIOVASCULAR RISKCommunity Memorial HospitalComment on above:Performed By: #### FERR, FETIBC #### [facility] [address] [place] [address] Dr. Michele Lubin CALC NORMALSEE BELOWCommunity Memorial HospitalComment on above:Result Comment: <100 mg/dl OPTIMAL 100 - 129 mg/dl NEAR OR ABOVE OPTIMAL 130 - 159 mg/dl BORDERLINE HIGH 160 - 189 mg/dl HIGH >190 mg/dl VERY HIGH Performed By: #### FERR, FETIBC #### [facility] [address] [place] [address] Dr. Michele ObrienTriglyceride [Mass/Vol]106 mg/dLNormal<=150The [facility] Comment on above:Performed By: #### FERR, FETIBC #### [facility] [address] [place] [address] Dr. Michele MorganLDL CALC21.2 mg/dLNoLakeHealth TriPoint Medical CenterComment on above: Performed By: #### FERR, FETIBC #### [facility] [address] [place] [address] Dr. Michele ObrienPROElizabeth 14(COMP METB)on [id number] [Mass/Vol]3.5 g/dLNormal 3.4-5.0[facility] HospitalComment on above:Performed By: #### FERR, FETIBC #### [facility] [address] [address] [address] Michele ObrienAlbumin/Globulin [Mass ratio]1.2 {ratio}NormalThe [facility] TownshipComment on above:Performed By: #### FERR, FETIBC #### [facility] [address] [address] [address] Michele Carranza [Catalytic activity/Vol]76 U/PKvgqra11-770Dij [facility] TownshipComment on above:Performed By: #### FERR, FETIBC #### [facility] [address] [address] [address] Michele Glover [Catalytic activity/Vol]16 U/SOkanic07-86Ddn [facility] TownshipComment on above:Performed By: #### FERR, FETIBC #### [facility] [address] [address] [address] Michele Duncanon gap [Moles/Vol]10.0 mmol/LNormalThe [facility] Comment on above:Performed By: #### FERR, FETIBC #### [facility] [address] [address] [address] Michele ObrienAST [Catalytic activity/Vol]16 U/ZZfpsbp51-63Feb [facility] Hospitalment on above:Performed By: #### FERR, FETIBC #### [facility] [address] [address] [address] Michele ObrienBilirubin [Mass/Vol]0.3 mg/dLNormal0.2-1.0The [facility] Comment on above:Performed By: #### FERR, FETIBC #### [facility] [address] [address] [address] Michele ObrienCalcium [Mass/Vol]8.5 mg/dLNormal8.5-10.1The [facility] Comment on above:Performed By: #### FERR, FETIBC #### [facility] [address] [address] [address] Michele ObrienChloride [Moles/Vol]106 mmol/HGflhno57-900Sdv [facility] Comment on above:Performed By: #### FERR, FETIBC #### [facility] [address] [place] [address] Dr. Michele ObrienCO2 [Moles/Vol]30.8 mmol/HQgndir08.0-32.0The [facility] Comment on above:Performed By: #### FERR, FETIBC #### [facility] [address] [place] [address] Dr. Michele ObrienCreatinine [Mass/Vol]0.68 mg/dLNormal0.55-1.02The [facility] TownshipComment on above:Performed By: #### FERR, FETIBC #### [facility] [address] [place] [address] Dr. Michele HaysGFR-AF LIBYAN>60Normal>=60The [facility] TownshipComment on above:Performed By: #### FERR, FETIBC #### [facility] [address] [place] [address] Dr. Michele HaysGFR-NON AF LIBYAN>60Normal>=60The [facility] TownshipComment on above:Performed By: #### FERR, FETIBC #### [facility] [address] [place] [address] Dr. Michele ObrienGlobulin (S) [Mass/Vol]2.8 g/dLNormalThe [facility] TownshipComment on above:Performed By: #### FERR, FETIBC #### [facility] [address] [place] [address] Dr. Michele ObrienGlucose [Mass/Vol]77 mg/jLSjnqdu52-285Tsj [facility] Comment on above:Performed By: #### FERR, FETIBC #### [facility] [address] [place] [address] Dr. Michele ObrienPotassium [Moles/Vol]3.8 mmol/LNormal3.5-5.1The [facility] Comment on above:Performed By: #### FERR, FETIBC #### [facility] [address] [place] [address] Dr. Michele ObrienProtein [Mass/Vol]6.3 g/dLCritically low6.4-8.2The [facility] TownshipComment on above:Performed By: #### FERR, FETIBC #### [facility] [address] [place] [address] Dr. Michele ObrienSodium [Moles/Vol]143 mmol/SOblfla209-078Fqi [facility] Comment on above:Performed By: #### FERR, FETIBC #### [facility] [address] [place] [address] Dr. Michele ObrienUrea nitrogen [Mass/Vol]10.0 mg/dLNormal7.0-18.0The [facility] TownshipComment on above:Performed By: #### FERR, FETIBC #### [facility] [address] [place] [address] Dr. Michele ObrienUrea nitrogen/Creatinine [Mass ratio]14.7 mg/mgNormalThe [facility] TownshipComment on above:Performed By: #### FERR, FETIBC #### [facility] [address] [place] [address] Dr. Michele ObrienTSHomary 49-61-0560GUK1.302 uIU/mLCritically high0.358-3.740The [facility] TownshipComment on above:Performed By: #### FERR, FETIBC #### [facility] [address] [place] [address] Dr. Michele Beaulieu B12 AND FOLATEon 27-38-1967Hhrvhgnxz (Vitamin B12) [Mass/Vol] 433.0 pg/wKBlqxqc444.0-986.0The [facility] TownshipComment on above:Performed By: #### B12FOL, VITAD #### [facility] [address] [place] [address] Dr. Michele ObrienFOLATE18.00 ng/mLNormal8.60-58.90The [facility] TownshipComment on above:Performed By: #### B12FOL, VITAD #### [facility] [address] [place] [address] Dr. Michele ObrienVITAMIN D 25 OHon [id number] D 25-OH33.4 ng/mLNRegency Hospital Cleveland EastComment on above:Performed By: #### B12FOL, VITAD #### [facility] [address] [place], [place] [address] Dr. Michele Singh [facility]ENTERSEE [facility] Hospital - AkronComment on above: Result Comment: <20 ng/mL Vit D deficient 20 - <30 ng/mL Vit D insufficient 30 - 100 ng/mL Vit D sufficient >100 ng/mL Potential ToxicityPerformed By: #### B12FOL, VITAD #### [facility] [address] [place], [place] [address] Dr. Michele Obrien Vital Signs Date TimeVital SignValuePerforming KtoefdxgaSxwmacij85-82-7046 09:56-0400Body .8 cmElisabeth Beckman APRN Work Phone: [phone]07-29-2025 09:56-0400 Body mass index (BMI) [Ratio]39.3 kg/t3EvcxcjjpElisabeth Beckman [employer]M MAKER [employer]ER Work Phone: [phone]07-29-2025 09:56-0400 Body dphuuhjmpnj77.6 [degF]Elisabeth Beckman [employer] MA[employer]ER [employer]ER Work Phone: [phone]07-29-2025 09:56-0400 Body yxxgfi950.28 kgElisabeth Beckman [employer]M MAKER [employer]ER Work Phone: [phone]07-29-2025 09:56-0400 Diastolic blood vlxedqgs65 mm[Hg]Elisabeth Beckman [employer]M MA[employer]ER [employer]ER Work Phone: [phone]07-29-2025 09:56-0400 Heart rate69 /minElisabeth Beckman [employer]M MAKER [employer]ER Work Phone: [phone]07-29-2025 09:56-0400 SaO2% (BldA) [Mass fraction]98 %Elisabeth Beckman APRN Work Phone: [facility]07-29-2025 09:56-0400 Systolic blood odahfqfr831 mm[Hg]Elisabeth Krauna [employer] MA[employer]ER [employer]ER Work Phone: [facility]07-28-2025 10:25-0400 Body owtebc958.8 cmRan Osullivan DPM Work Phone: [facility] SystemCtgvmtfspi20-45-2922 10:25-0400Body mass index (BMI) [Ratio]45.2 kg/i7TdfqpvwpRan Osullivan DPM Work Phone: [facility] SystemIvoldieibs26-27-9695 10:25-0400Body .88 kgNicjannette Osullivan DPM Work Phone: [facility] SystemSbhuyvsikc90-49-0736 10:25-0400Respiratory rate16 /minNicjannette Osullivan DPM Work Phone: [facility] SystemWrdaidsfdc64-19-2793 10:59-0400Body qruutw683.8 cmKibanner Raoul FORM MAKER PLASTER.CHIEF SUPPLY CHAIN OFFICER Work Phone: [facility]05-30-2025 10:59-0400Body mass index (BMI) [Ratio]41.61 kg/p1Nbaeacbt Raoul FORM MAKER PLASTER.CHIEF SUPPLY CHAIN OFFICER Work Phone: [facility]05-30-2025 10:59-0400Body temperature 98.1 [degF][facility] FORM MAKER PLASTER.CHIEF SUPPLY CHAIN OFFICER Work Phone: [facility]05-30-2025 10:59-0400Body zgosqr899.54 kgKierNoland Hospital Anniston FORM MAKER PLASTER.CHIEF SUPPLY CHAIN OFFICER Work Phone: [facility]05-30-2025 10:59-0400Diastolic blood mm[Hg]Khoa [place] FORM MAKER PLASTER.CHIEF SUPPLY CHAIN OFFICER Work Phone: [facility]05-30-2025 10:59-0400Heart rate74 /min [facility] FORM MAKER P[employer]ER.CHIEF SUPPLY CHAIN OFFICER Work Phone: [facility]05-30-2025 10:59-0400Systolic blood xtsciagz507 mm[Hg][facility] FORM MAKER P[employer]ER.CHIEF SUPPLY CHAIN OFFICER Work Phone: [facility]05-22-2025 11:05-0400Body rbsnky830.8 cmTr[facility]05-22-2025 11:05-0400Body mass index (BMI) [Ratio]42.3 kg/a0YtbwsugthTrinity Health System [facility]05-22-2025 11:05-0400Body essvooozceh73.7 [degF][facility]05-22-2025 11:05-0400Body jydqdu641.8 kgTr[facility] Health [facility]05-22-2025 11:05-0400Diastolic blood ljvokkuy80 mm[Hg][facility]05-22-2025 11:05-0400 Heart rate87 /minTrinity Health System [facility] Campus05-22-2025 11:05-0580FiW5% (BldA) [Mass fraction]97 %[facility]05-22-2025 11:05-0400 Systolic blood mcrwemrx378 mm[Hg][facility]05-16-2025 11:07-0400Body sodtvh818.8 cmK[facility] FORM MAKER PLASTER.CHIEF SUPPLY CHAIN OFFICER Work Phone: [facility]05-16-2025 11:07-0400Body mass index (BMI) [Ratio]41.75 kg/r8ZcezabzeKaiser Foundation Hospital FORM MAKER PLASTER.CHIEF SUPPLY CHAIN OFFICER Work Phone: [facility]05-16-2025 11:07-0400Body temperature 96.91 [degF][facility] FORM MAKER PLASTER.CHIEF SUPPLY CHAIN OFFICER Work Phone: [facility]05-16-2025 11:07-0400Body kg [facility] FORM MAKER PLASTER.CHIEF SUPPLY CHAIN OFFICER Work Phone: [facility]05-16-2025 11:07-0400Diastolic blood meiwnzwm86 mm[Hg][facility] FORM MAKER PLASTER.CHIEF SUPPLY CHAIN OFFICER Work Phone: [facility]05-16-2025 11:07-0400Heart rate85 /min [facility] FORM MAKER PLASTER.CHIEF SUPPLY CHAIN OFFICER Work Phone: [facility]05-16-2025 11:07-0400Systolic blood dmaosarm129 mm[Hg][facility] FORM MAKER PLASTER.CHIEF SUPPLY CHAIN OFFICER Work Phone: [facility]05-07-2025 10:59-0400Body tmsfod630.8 cmKiPacific [facility] Medical Center FORM MAKER PLASTER.CHIEF SUPPLY CHAIN OFFICER Work Phone: [phone]05-07-2025 10:59-0400Body mass index (BMI) [Ratio]42.47 kg/v6RjqxzchmKaiser Foundation Hospital FORM MAKER PLASTER.CHIEF SUPPLY CHAIN OFFICER Work Phone: [phone]05-07-2025 10:59-0400Body temperature 97.3 [degF][facility] FORM MAKER PLASTER.CHIEF SUPPLY CHAIN OFFICER Work Phone: [facility]05-07-2025 10:59-0400Body mlpgok314.26 kgK[facility] Hospital FORM MAKER PLASTER.CHIEF SUPPLY CHAIN OFFICER Work Phone: [phone]05-07-2025 10:59-0400Diastolic blood mm[Hg][facility] FORM MAKER PLASTER.CHIEF SUPPLY CHAIN OFFICER Work Phone: [facility]05-07-2025 10:59-0400Heart rate81 /min [facility] FORM MAKER PLASTER.CHIEF SUPPLY CHAIN OFFICER Work Phone: [facility]05-07-2025 10:59-0400Systolic blood jmvmydzo397 mm[Hg][facility] FORM MAKER PLASTER.CHIEF SUPPLY CHAIN OFFICER Work Phone: [phone]04-08-2025 10:04-0400Body orwvqu469.8 cmPacc 6 Work Phone: [phone]04-08-2025 10:04-0400Body mass index (BMI) [Ratio]45.52 kg/m2Pacc 6 Work Phone: [phone]04-08-2025 10:04-0400Body temperature 97 [degF]Pacc 6 Work Phone: [phone]04-08-2025 10:04-0400Body fhekmr439.9 kgPacc 6 Work Phone: [facility]04-08-2025 10:04-0400Diastolic blood mm[Hg]Pacc 6 Work Phone: [phone]04-08-2025 10:04-0400Heart rate78 /min Pacc 6 Work Phone: [phone]04-08-2025 10:04-1434LhV9% (BldA) [Mass fraction]98 %Pacc 6 Work Phone: [phone]04-08-2025 10:04-0400Systolic blood mm[Hg]Pacc 6 Work Phone: [facility]04-03-2025 13:01-0400Body .8 cmNicholas Brown DPM Work Phone: [facility] SystemNrwbrnvcnt25-81-0029 13:01-0400Body mass index (BMI) [Ratio]45.2 kg/j1Ucflmwwc Brown DPM Work Phone: [phone] [place], [place] [address]Kvbnoaitxt23-58-8539 13:01-0400Body emixpp874.88 kgNicholas Brown DPM Work Phone: [phone]-[facility] SystemPupyiwoqnp14-08-0217 13:01-0400Respiratory rate16 /minNicholas Brown DPM Work Phone: [facility] SystemEhuakmgape19-93-9574 09:44-0500Body qgqyuw095.8 cmNicholas Brown DPM Work Phone: [facility] SystemTcmnhsnwwf71-21-3412 09:44-0500Body mass index (BMI) [Ratio]45.2 kg/a9Teetayap Brown DPM Work Phone: [facility] SystemVvwrrzdrov72-94-3426 09:44-0500Body goegga541.88 kgNicholas Brown DPM Work Phone: [facility] SystemFwfdkiyilu20-54-1448 09:44-0500Respiratory rate16 /minNicholas Brown DPM Work Phone: [phone] [place], [place] [address]Fzanqeuvhw39-85-9219 11:22-0500Body ceoclo474.8 cmTr[facility]02-14-2025 11:22-0500Body mass index (BMI) [Ratio]44.9 kg/s1NbxnxcehlTrinity Health System [facility] Campus02-14-2025 11:22-0500Body cljpahlcbcm86.8 [degF][facility]02-14-2025 11:0500Body hinklm634.97 kgTr[facility] Health System [facility]02-14-2025 11:22-0500Diastolic blood mm[Hg][facility]02-14-2025 11:22-0500 Heart rate93 /minTr[facility] Health System [facility]02-14-2025 11:3661VdC0% (BldA) [Mass fraction]97 %[facility]02-14-2025 11:22-0500 Systolic blood bajhnnde937 mm[Hg][facility]02-03-2025 10:20-0500Body ainidg673.8 cmNicjannette Brown DPM Work Phone: [phone] [place], [place] [address]Uvwglzsgyi06-13-4220 10:20-0500Body mass index (BMI) [Ratio]45.2 kg/p1Exunlmpb Brown DPM Work Phone: [facility] SystemZtrdqqlwzc14-19-5439 10:20-0500Body .88 kgNicjannette Brown DPM Work Phone: [facility] SystemCzjuregruw49-35-9605 10:20-0500Respiratory rate18 /minNicjannette Brown DPM Work Phone: [phone] [place], [place] [address]Wzxnyigpwp08-31-6574 10:07-0500Body .8 [facility] Work Phone: [facility] SystemQjywadcawf68-50-1965 10:07-0500Body mass index (BMI) [Ratio]43.62 kg/m2ToSt. Gabriel Hospital PA Work Phone: noCameron Regional Medical CenterSguwhpfngi29-11-7656 10:07-0500Body wyvyfm848.89 kgToSt. Gabriel Hospital PA Work Phone: [facility] SystemTpqqkjbtzz41-29-1879 10:59-0500Body otrvwq264.8 cmTr[facility]01-15-2025 10:59-0500Body mass index (BMI) [Ratio]46 kg/x1NvgfiblbvTrinity Health System [facility] Campus01-15-2025 10:59-0500Body mtndsjkgaww21.3 [degF][facility]01-15-2025 10:59-0500Body .65 kgTrinity Health System [facility]01-15-2025 10:59-0500Diastolic blood dsbmmeuw52 mm[Hg][facility]01-15-2025 10:59-0500 Heart rate78 /minTrinity Health System [facility] Campus01-15-2025 10:59-6582XzE3% (BldA) [Mass fraction]98 %[facility]01-15-2025 10:59-0500 Systolic blood mm[Hg][facility]11-20-2024 09:58-0500Body rilmiq248.8 [facility] Work Phone: [phone]11-20-2024 09:58-0500Body mass index (BMI) [Ratio]43.62 kg/m2[facility] Work Phone: [phone] [place], [place] [address]11-20-2024 09:58-0500Body .89 kgGl[facility]ale Research Hospital Work Phone: [phone]11-19-2024 09:39-0500Body owhnbb893.8 cmLucas Shammo FIELD PARTY MANAGER-BC Work Phone: [facility]11-19-2024 09:39-0500 Body mass index (BMI) [Ratio]43.7 kg/g6Aqhjy Shammo FIELD PARTY MANAGER-BC Work Phone: [facility]11-19-2024 09:39-0500 Body fxuing713.34 kgLucas Shammo FIELD PARTY MANAGER-BC Work Phone: [facility]11-19-2024 09:39-0500 Diastolic blood mm[Hg]Yandel Shammo FIELD PARTY MANAGER-BC Work Phone: [phone] [place], [place] 35[address]11-19-2024 09:39-0500 Heart rate74 /minYandel Shammo FIELD PARTY MANAGER-BC Work Phone: [phone] [place], [place] 92[address]011-19-2024 09:39-0500 SaO2% (BldA) [Mass fraction]97 %Yandel Shammo FIELD PARTY MANAGER-BC Work Phone: [phone] [place], [place] 92[address]011-19-2024 09:39-0500 Systolic blood uoworcqi643 mm[Hg]Yandel Shammo FIELD PARTY MANAGER-BC Work Phone: [phone]11-07-2024 13:17-0500 Body .[address] Work Phone: cGreen Cross HospitalDporkz28-61-1185 13:17-0500Body mass index (BMI) [Ratio]43.76 kg/x3Pxzsr Nadia RD Work Phone: cGreen Cross HospitalTvkhoo77-82-5665 13:17-0500Body xqlkgy559.[address] Work Phone: [facility] ClinicComment on above:otootk17-12-6789 14:03-0400Body mass index (BMI) [Ratio]43.62 kg/d3NpjrjtkRenetta Ruano MD Work Phone: [facility]10-24-2024 14:03-0400Body .89 kgRenetta Ruano MD Work Phone: [facility]10-24-2024 10:00-0400Body amjhpu975.8 cmFNP-BC Yandel Shammo Work Phone: [phone]-[facility]10-24-2024 10:00-0400 Body mass index (BMI) [Ratio]43.7 kg/z5HHH-TI Yandel Shammo Work Phone: [phone] [place], [place] 9211010-24-2024 10:00-0400 Body .4 [degF]FIELD PARTY MANAGER-BC Yandel Shammo Work Phone: [phone] [place], [place] 9211010-24-2024 10:00-0400 Body .06 kgFNP-BC Yandel Shammo Work Phone: [phone] [place], [place] 35[address]10-24-2024 10:00-0400 Diastolic blood rxunimwq55 mm[Hg]FIELD PARTY MANAGER-BC Yandel Shammo Work Phone: [phone] [place], [place] 35[address]10-24-2024 10:00-0400 SaO2% (BldA) [Mass fraction]98 %FIELD PARTY MANAGER-BC Yandel Shammo Work Phone: [phone] [place], [place] 3523410-24-2024 10:00-0400 Systolic blood lwtulhbd770 mm[Hg]FIELD PARTY MANAGER-BC Yandel Shammo Work Phone: [phone] [place], [place] 35[address]10-10-2024 10:45-0400 Body .8 cmFNP-BC Yandel Shammo Work Phone: [phone] [place], [place] 35[address]10-10-2024 10:45-0400 Body mass index (BMI) [Ratio]43.4 kg/h6RLR-TS Yandel Shammo Work Phone: [phone] [place], [place] 3523410-10-2024 10:45-0400 Body azynux785.43 kgFNP-BC Yandel Shammo Work Phone: [phone] [place], [place] 3523410-10-2024 10:45-0400 Diastolic blood lafaaxzt14 mm[Hg]FIELD PARTY MANAGER-BC Yandel Shammo Work Phone: [phone] [place], [place] 35[address]10-10-2024 10:45-0400 Heart rate73 /minFNP-BC Yandel Shammo Work Phone: [phone] [place], [place] 35[address]10-10-2024 10:45-0400 Respiratory rate18 /minFNP-BC Yandel Shammo Work Phone: [phone] [place], [place] 3523410-10-2024 10:45-0400 SaO2% (BldA) [Mass fraction]98 %FIELD PARTY MANAGER-BC Yandel Shammo Work Phone: 1(372)[address] [place], [place] 3523410-10-2024 10:45-0400 Systolic blood tghpfiep374 mm[Hg]FIELD PARTY MANAGER-BC Yandel More Work Phone: [facility]09-24-2024 09:38-0400 Body zesrck052.8 cmAyse Grissom MD Work Phone: [facility]09-24-2024 09:38-0400Body mass index (BMI) [Ratio]43.81 kg/h1InaqdzAyse Grissom MD Work Phone: [facility]09-24-2024 09:38-0400Body bqupzg766.5 kgAyse Grissom MD Work Phone: [facility]09-24-2024 09:38-0400Diastolic blood mm[Hg]Ayse Grissom MD Work Phone: [facility]09-24-2024 09:38-0400Heart rate80 /min Ayse Grissom MD Work Phone: [facility]09-24-2024 09:38-0400Systolic blood omxfgvpk784 mm[Hg]Ayse Grissom MD Work Phone: [facility]09-16-2024 14:36-0400Body yxnepe247.8 Trudi Jeff MD Work Phone: [facility]09-16-2024 14:36-0400Body mass index (BMI) [Ratio]43.05 kg/b6PznulRocio Jeff MD Work Phone: [facility]09-16-2024 14:36-0400Body temperature 97.7 [degF]Rocio Jeff MD Work Phone: [facility]09-16-2024 14:36-0400Body cktbyl117.08 kgRocio Jeff MD Work Phone: [facility]09-16-2024 14:36-0400Diastolic blood glxmkkun33 mm[Hg]Rocio Jeff MD Work Phone: [place] [address]-16-2024 14:36-0400Heart rate72 /min Rocio Jeff MD Work Phone: [facility]09-16-2024 14:36-0400Systolic blood npnxhdyz089 mm[Hg]Rocio Jeff MD Work Phone: [facility]08-13-2024 10:03-0400Blood Pressure LocationMichael NILL [phone]-XvnagPaulding [facility] [place] 03-13-2024 10:03-0400Diastolic blood mm[Hg]King NILL [phone]-MavjrPaulding County Hospital [facility] [place] 03-13-2024 10:03-0400Heart rate80 /minMichael NILL [phone]-WeclcPaulding County Hospital [facility] [place] 03-13-2024 10:03-0400Respiratory rate16 /minMichael NILL [phone]-QnchzPaulding County Hospital [facility] [place] 03-13-2024 10:03-0400Systolic blood mm[Hg]King NILL [phone]-SgzlgMccullough-[facility] 02-28-2024 13:15-0400Body obvlas141.34 cmFNP-BC Yandel Shammo Work Phone: [facility]07-30-2024 13:15-0400 Body mass index (BMI) [Ratio]42.4 kg/o0JAP-OQ Yandel Shammo Work Phone: [facility]07-30-2024 13:15-0400 Body .89 kgFNP-BC Yandel Shammo Work Phone: [facility]07-30-2024 13:15-0400 Diastolic blood gnsrejqj79 mm[Hg]FIELD PARTY MANAGER-BC Yandel Shammo Work Phone: [facility]07-30-2024 13:15-0400 Heart rate76 /minFNP- Yandel Shammo Work Phone: [facility]07-30-2024 13:15-0400 SaO2% (BldA) [Mass fraction]100 %[facility]- Yandel Shammo Work Phone: [facility]07-30-2024 13:15-0400 Systolic blood szdakphc199 mm[Hg]FIELD PARTY MANAGER- Yandel Shammo Work Phone: 1(035)213-[facility]02-22-2024 09:42-0500 Body mass index (BMI) [Ratio]44.85 kg/m6ZawfxnHéctor Aguilar MD Work Phone: 1(967)[address]02-22-2024 09:42-0500Body zttytt883.79 kgHéctor Aguilar MD Work Phone: 1(035)[address] [place], [place] 6[address]4802-22-2024 09:42-0500Diastolic blood mm[Hg]Héctor Aguilar MD Work Phone: 1(303)[address]02-22-2024 09:42-0500Heart rate 82 /minHéctor Aguilar MD Work Phone: 1(481)[address]02-22-2024 09:42-0500Systolic blood mm[Hg]Héctor Aguilar MD Work Phone: 1([phone])[address]02-15-2024 11:30-0500Body mass index (BMI) [Ratio]43.52 kg/m2Kassandra ALBERTO Work Phone: [facility] SystemHkzdrpoesn79-69-9139 11:30-0500Body .52 kgKassandra ALBERTO Work Phone: [facility] SystemJxkcpqkzbb56-19-5437 11:30-0500Diastolic blood dlpvllys55 mm[Hg]Kassandra ALBERTO Work Phone: [facility] SystemFvgylgpjoi84-33-6081 11:30-0500Systolic blood jyhwkjeg772 mm[Hg]Kassandra Kellerton PA Work Phone: [facility] SystemUagbdfacxt34-59-9447 15:30-0400Body .05 kgLacher Gallego Other [facility] Other 10-19-2023 15:30-0400Diastolic blood afpjmgrt10 mm[Hg] Denys Gallego Other [facility] Other 10-19-2023 15:30-0400Systolic blood lnplfijb845 mm[Hg] Denys Gallego Other [facility] Pr[facility]ama Other 08-15-2023 10:48-0400Diastolic blood vlqspywr84 mm[Hg] FIELD PARTY MANAGER-BC Yandel Shammo Work Phone: 1(677)315-[facility]08-15-2023 10:48-0400 Heart rate63 /minFNP-BC Yandel Shammo Work Phone: 1(019)313-[address] [place], [place] 9211008-15-2023 10:48-0400 Respiratory rate16 /minFNP-BC Yandel Shammo Work Phone: [facility]08-15-2023 10:48-0400 SaO2% (BldA) [Mass fraction]99 %FIELD PARTY MANAGER-BC Yandel Shammo Work Phone: [facility]08-15-2023 10:48-0400 Systolic blood gbdghtow767 mm[Hg]FIELD PARTY MANAGER-BC Yandel Shammo Work Phone: 7(447)362-[facility]08-15-2023 08:43-0400 Body jompms567.34 cmFNP-BC Yandel Shammo Work Phone: 5(670)676-[address] [place], [place] 9211008-15-2023 08:43-0400 Body fpxmwdatytj22.2 [degF]FIELD PARTY MANAGER-BC Yandel Shammo Work Phone: 2(164)502-[facility]08-15-2023 08:43-0400 Body .27 kgFNP-BC Yandelrico More Work Phone: [facility]06-19-2023 10:00-0400 Body kayuco900.01 kgLacher Gallego Other [facility] Pradama Other 06-19-2023 10:00-0400Diastolic blood xbrduiwb89 mm[Hg] Denys Selfack Other [facility] Other 06-19-2023 10:00-0400Systolic blood mm[Hg] Denys Gallego Other [facility] Pradama Other Encounters Encounter DateEncounter TypeCare ProviderFacilityStart: 06-11-2025 End: 75-00-6884ziljdpopxgAnviap TannaFacility:FTMCStart: 06-11-2025 End: 96-95-4159Nohxeib encounter procedureBárbara Nguyen [facility] start: 02-26-2025 End: 54-60-9669ydvcviyumbPtedfocf Rohrbacher APRN Work Phone: [facility] Work Phone: Start: 02-26-2025 End: 08-31-7187Nqnsrkk encounter procedureElisabeth Beckman APRN [facility] Work Phone: Start: 02-25-2025 End: 79-99-0427Bdpqzh Archie Osullivan DPM Work Phone: no Chris Santos PodiatryStart: 02-25-2025 End: 56-71-7116Pmcwsp Archie Osullivan DPM Work Phone: no Chris Santos PodiatryStart: 02-25-2025 End: 15-82-9995jmvuuqbrjvFZXBZOZY A BROWNNot AvailableStart: 02-25-2025 End: 30-19-7054Hxeokk outpatient visit 15 minutesRan Osullivan DPM Work Phone: [facility] Perez Tom PodiatryComment on above:Sinus tarsitis of right foot (Primary Dx); Other specified disorders of synovium, right ankle and footStart: 02-19-2025 End: 39-53-6955Pnsql Bronwyn Mckeon RD Work Phone: General SurgeryStart: 01-25-2025 End: 88-90-9080Uwwdar OnlyKhoa Silveira FORM MAKER PLASTER.CHIEF SUPPLY CHAIN OFFICER Work Phone: General SurgeryComment on above:S/P hernia repair (Primary Dx); Postoperative visitPatient UpdateStart: 01-24-2025 End: 41-67-2236Amxnaa OnlyKhoa Silveira FORM MAKER PLASTER.CHIEF SUPPLY CHAIN OFFICER Work Phone: General SurgeryComment on above:Acute postoperative painStart: 01-07-2025 End: 02-36-2822Ylxfrq OnlyKhoa Silveira FORM MAKER PLASTER.CHIEF SUPPLY CHAIN OFFICER Work Phone: General SurgeryComment on above:Acute postoperative pain (Primary Dx)Start: 12-28-2024 End: 03-71-6043Ddtjqhw encounter procedureKhoa Silveira FORM MAKER PLASTER.CHIEF SUPPLY CHAIN OFFICER Work Phone: General SurgeryComment on above:Encounter for postoperative wound check (Primary Dx)Start: 12-28-2024 End: 20-20-4402gyxrgbppmeDFDYUWNM A ROHRBACHERFacility:[facility] Start: 12-21-2024 End: 07-06-5166cdtgwdakliSQGTWCLS A ROHRBACHERFacility:[facility] Start: 12-21-2024 End: 53-34-0568cuopsklnbaRSFQGEBI A ROHRBACHERFacility:[facility] Start: 12-20-2024 End: 37-80-9325zskajymfdfBafgpetyaTriHealth Work Phone: Start: 12-20-2024 End: 34-59-4579Wfsljeh encounter procedureFirelands Physician Group-[facility] Work Phone: Start: 12-19-2024 End: 33-32-5942dmscajyeuoDYLQCYYR A ROHRBACHERFacility:[facility] Start: 12-14-2024 End: 41-74-8370Audzuja encounter procedureKhoa Silveira FORM MAKER PLASTER.CHIEF SUPPLY CHAIN OFFICER Work Phone: General SurgeryComment on above:Encounter for postoperative wound check (Primary Dx)Start: 12-14-2024 End: 43-32-0076textbizrenGETLGYON A ROHRBACHERFacility:[facility] Start: 12-10-2024 End: 84-47-8240Dwthbm OnlyKhoa Silveira FORM MAKER PLASTER.CHIEF SUPPLY CHAIN OFFICER Work Phone: General SurgeryComment on above:Acute postoperative pain (Primary Dx)Start: 12-06-2024 End: 28-16-3547Ewatwtrlb encounterJeannine Rody RNGeneral SurgeryComment on above:Post Op CallStart: 12-05-2024 End: 53-43-2050Qqmlgeiyx encounterJeannine Rody RNGeneral SurgeryComment on above:Post Op CallStart: 12-05-2024 End: 88-91-0080Amuqzhn encounter procedureKhoa Silveira FORM MAKER PLASTER.CHIEF SUPPLY CHAIN OFFICER Work Phone: General SurgeryComment on above:Postoperative visit (Primary Dx)Start: 12-05-2024 End: 25-70-3366xvrmnnlnkvUIQSCJIZMillie TOLENTINORFacility:[facility] Start: 12-03-2024 End: 67-72-7480Pguoqd OnlyKhoa Silveira FORM MAKER PLASTER.CHIEF SUPPLY CHAIN OFFICER Work Phone: General SurgeryComment on above:Acute postoperative painStart: 11-30-2024 End: 70-82-0396Ydzxzsiri to same day surgery Sarwat Grissom MD Work Phone: General SurgeryComment on above:Bariatric surgery status (Primary Dx); S/P repair of ventral herniaStart: 11-30-2024 End: 68-86-0755Cghiwpnvewal consultation with patientAyse Grissom MD Work Phone: General SurgeryStart: 11-30-2024 End: 57-41-8417zjlwrasquuIFKSRDDHMelissa BIRMINGHAMacility:[facility] Start: 11-23-2024 End: 50-75-5161Dxnqgmkhxs and management of inpatientROCIO JEFF [facility]: 11-09-2024 End: 56-61-1654Vacszxqkk encounterKristi Watts RNGeneral SurgeryComment on above:Approval callStart: 11-06-2024 End: 13-90-6595Uvyhnkn encounter Holley Umaña PhD Work Phone: [facility] SurgeryComment on above:Preoperative examination; Hiatal hernia; Morbid obesity (HCC)Start: 11-06-2024 End: 95-67-7101Bjmzhnwif to establishmentArbor Health Main 6 Work Phone: Pre AnesthesiaStart: 11-06-2024 End: 85-00-6471Qztfiuhwoq consultationAcutecare Health System 6 Work Phone: Pre AnesthesiaComment on above:Preoperative examination (Primary Dx); Hiatal hernia; Morbid obesity (HCC); Primary hypertension; Gastroesophageal reflux disease without esophagitis; Acquired hypothyroidism; Inappropriate sinus tachycardia (HCC); Other iron deficiency anemia; Insulin resistance; Psoriatic arthritis (HCC); Class 3 severe obesity without serious comorbidity with body mass index (BMI) of 40.0 to 44.9 in adult, unspecified obesity type (HCC)Start: 11-06-2024 End: 85-90-6978Hhldcnietyyvm examination [place] [address] Work Phone: [facility] Work Phone: Start: 21-99-5856Cmz-patient / Non-visitFirsovah health - [facility] Physician GroupL[facility] Work Phone: Start: 11-06-2024 End: 24-87-9771ilpkdlakwqVZKEXCLUMillie BIRMINGHAMacility:[facility] Start: 95-09-8055Arsajhlxd for other preprocedural examinationCleveland Clinic ClevelandStart: 2024 End: 84-78-3080Xpodea flowsheetNicangas A Brown DPM Work Phone: [facility] CI PODIATRYStart: 2024 End: 97-02-4459Seyxok flowsheetNicholas A Brown DPM Work Phone: [facility] CI PODIATRYStart: 2024 End: 28-02-7986Sepwue outpatient visit 15 minutesNicjannette A Brown DPM Work Phone: [facility] CI PODIATRYComment on above:Other specified disorders of synovium, right ankle and foot (Primary Dx); Sinus tarsitis of right foot; Contracture of left ankleStart: 2024 End: 04-02-6284nafpohfxzpPGFTXIJU A BROWNNot AvailableStart: 10-18-2024 End: 55-46-1267Kxwiez flowsheetNicholas A Brown DPM Work Phone: [facility] CI PODIATRYStart: 10-18-2024 End: 17-01-8248Yvwahc flowsheetNicholas A Brown DPM Work Phone: [facility] CI PODIATRYStart: 10-18-2024 End: 37-66-1635otyydtzhdpLQWNXJAB Renu OSULLIVANNot AvailableStart: 09-28-2024 End: 58-80-5351Flnubwziu to same day surgery centerRocio Jeff MD Work Phone: Digestive Disease InstComment on above:11.23.24 Cure (Open Complex AWR 4 hours los [address] Grissom Hiatal hernia/Lap Gastric Sleeve 3 hours)Start: 09-28-2024 End: 84-45-0913jrjifembkdQlwvt Prabhu MD Work Phone: Digest[facility] Disease InstStart: 09-28-2024 End: 91-53-3069Eojsnpkrbknas examination doneRocio Jeff MD Work Phone: [facility]: 09-21-2024 End: 14-21-7286Weelzljry to same day surgery clydeKristi Watts RNGeneral SurgeryComment on above:11/04/2024 (pseudo)Start: 09-21-2024 End: 89-47-0345eyhlweclfwVzjfgsot Verde RNGeneral SurgeryStart: 09-21-2024 End: 37-02-8912Rjpdmtfsogcan examination doneClaritzarebeca Chavezde [facility] Start: 09-20-2024 End: 48-69-5592Fjequn Archie Osullivan DPM Work Phone: noms PODIATRYStart: 09-20-2024 End: 68-58-6535Udlhuf Archie Osullivan DPM Work Phone: noms PODIATRYStart: 09-20-2024 End: 56-86-4076deiivoudtpLRGRAWPE A BROWNNot AvailableStart: 09-20-2024 End: 74-09-8338Dqqwie outpatient visit 15 minutesNicjannette Osullivan DPM Work Phone: noms PODIATRYComment on above:Sinus tarsitis of right foot (Primary Dx); Other specified disorders of synovium, right ankle and footStart: 09-14-2024 End: 19-52-9044gyvbnnwdutYdweqpnkuC[facility] Clinic [facility] Work Phone: Start: 09-14-2024 End: 44-14-3589Qedguoz encounter procedureFrye [facility] Physician GroupParkview [facility] Work Phone: Start: 09-12-2024 End: 27-65-5351Wlsfakjhn encounterKristi Watts RNGeneral SurgeryComment on above:ResultsStart: 09-03-2024 End: 53-15-6313Oxunxzmindi Osullivan DPM Work Phone: [facility] [place] PODStart: 09-03-2024 End: 80-06-9503Bpmlhe Archie Osullivan DPM Work Phone: [facility] [place] PODStart: 09-03-2024 End: 23-31-5335xcwlnbqrlwUTUDVIIX A BROWNNot AvailableStart: 09-03-2024 End: 71-06-1498Ajifqm outpatient new 30 minutesHelenarico Sears Tariq DPM Work Phone: NOTP [place] PODComment on above:Other specified disorders of synovium, right ankle and foot (Primary Dx); Sinus tarsitis of right footStart: 09-01-2024 End: 78-35-7991pumdjrrwccCKRGJM STEVENSFacility:[facility] Hospitaltart: 08-22-2024 End: 46-84-2708Qdqjcuidm encounterSadina Helm PhD Work Phone: General Surgery BMI PSYComment on above:Patient Update Start: 08-17-2024 End: 78-54-2065ilvbojcbxrCYPT D HILLSNot AvailableStart: 08-17-2024 End: 17-80-4512Xgputbv encounter procedureAfrica ALBERTO Work Phone: noms NB ORTHOComment on above:Ankle joint instability, right (Primary Dx); Sinus tarsi syndrome of right ankle; Posterior tibial tendinitis of right lower extremityStart: 08-17-2024 End: 50-50-8846narprefuwvGOCT D HILLSNot AvailableStart: 08-15-2024 End: 89-25-1707Auphddtog to same day surgery centerAyse Grissom MD Work Phone: General SurgeryComment on above:Sleep Study Completed Start: 08-15-2024 End: 26-83-5950ccevlrozdcCoqrhz Feng MD Work Phone: [facility] Work Phone: Start: 08-15-2024 End: 70-44-6732Qitzenk encounter procedureFrye Regional [facility] Physician GroupParkview Health [facility] Work Phone: Start: 07-27-2024 End: 78-37-3396qnhtbstzdiVUAVVBO A GORTYFacility:[facility] Hospitaltart: 07-10-2024 End: 19-94-1487Vxvxhw flowsheetTodd D Appleton PA Work Phone: [facility] SWS ORTHOAOStart: 07-10-2024 End: 70-81-0278Yjpvzq flowsheetAfrica Singh Isabel PA Work Phone: [facility] SWS ORTHOAOStart: 07-10-2024 End: 74-42-6088djqriydhytBXVC D ISABELNot AvailableStart: 07-10-2024 End: 31-77-9980Phjmlmc encounter procedureTojacob Singh Isabel PA Work Phone: [facility] SWS ORTHOAOComment on above: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); Moderate right ankle sprain, sequelaStart: 07-02-2024 End: 10-32-6076bkrsvspvceGMKZAOG A GORTYFacility:[facility] Hospitaltart: 06-29-2024 End: 26-37-8470PebppWinthrop Community Hospital Main Work Phone: NeurologyStart: 06-22-2024 End: 53-57-6461dqkzctkmfmIIQY D HILLSNot AvailableStart: 06-21-2024 End: 55-55-9195kgsfhizfaqIXWTKH FENGFacility:[facility] Hospitaltart: 06-20-2024 End: 88-30-8716Udxskd flowsheetAfrica Singh Appleton PA Work Phone: [facility] ORTHOStart: 06-20-2024 End: 55-25-5618Fpgdke flowsheetAfrica Singh Isabel REMY Work Phone: [facility] ORTHOStart: 06-20-2024 End: 52-36-9612Vvifssk encounter procedureTojacob Singh Isabel PA Work Phone: [facility] NB ORTHOComment on above:Pain and swelling of right lower leg (Primary Dx); Ankle joint instability, right; Pain of right calfStart: 06-20-2024 End: 62-72-2981ztcargdnbsJQJD D HILLSNot AvailableStart: 06-19-2024 End: 81-63-6624vsjbibvikbOifvp T Shammo [employer] [facility]- Work Phone: [facility] Work Phone: Start: 06-19-2024 End: 16-77-4668Thmrsjg encounter procedureLucas Shammo FIELD PARTY MANAGER-BC Work Phone: [facility] Work Phone: Start: 06-15-2024 End: 86-25-9622Qxhxzbh encounter statusXr LorMemorial Health System [facility] Hospitaltart: 06-15-2024 End: 79-87-1065Ivqwcafgxm hospital visit by physicianXr [facility]ainRadiology Comment on above:Morbid obesity due to excess calories (HCC) [E66.01]Start: 06-15-2024 End: 73-13-2527ybomynwktgPBPWKJ PRAVEENAFacility:[facility] Hospitaltart: 04-74-4530Dmw-patient / Non-visitLucas Shammo FIELD PARTY MANAGER-BC Work Phone: [facility]Park[facility] Work Phone: Start: 06-14-2024 End: 83-15-2933gkrcnsvrucMHNPZS Latoshacility:[facility] Hospitaltart: 06-08-2024 End: 01-14-6517aintaeitypJjsgjvkz:[facility] Hospitaltart: 06-07-2024 End: 61-99-3476Bghysbwpg to same day surgery centerLeah Zuniga RD Work Phone: General SurgeryComment on above:H/O gastric sleeve (Primary Dx); Obesity, Class III, BMI 40-49.9 (morbid obesity) (HCC); Dietary counseling and surveillanceStart: 06-07-2024 End: 60-46-3195curnpudwwxMUGJBT PRAVEENAFacility:[facility] Hospitaltart: 06-07-2024 End: 75-90-1627Vchriqezyzhv consultation with patientLeah Zuniga RD Work Phone: General SurgeryStart: 06-01-2024 End: 05-05-3287FyniqlDarryl Grissom MD Work Phone: General SurgeryComment on above:Preoperative examination (Primary Dx)Start: 06-01-2024 End: 70-76-1989Slpdugwyysqep examination Joseph Grissom MD Work Phone: [facility] Work Phone: Start: 05-24-2024 End: 55-46-1094Vgbvhylrn to same day surgery Sudha Ruano MD Work Phone: [facility] REJComment on above:Morbid obesity due to excess calories (HCC) (Primary Dx); S/P bariatric surgery; Preoperative testing; Snoring; Other fatigue; Morbid obesity with BMI of 40.0-44.9, adult (HCC)Start: 05-24-2024 End: 62-02-4778wopljtiasnQPMQDO FENGFacility:[facility] Hospitaltart: 52-86-6443Jbonfnmtg for other preprocedural examinationRENETTA RUANOClinton Memorial HospitalStart: 05-24-2024 End: 07-95-9806Jeffzvv encounter statusRenetta Ruano MD Work Phone: [facility]: 05-24-2024 End: 58-47-7734Ivdswczxners consultation with patientRenetta Ruano MD Work Phone: [facility] REJStart: 05-24-2024 End: 71-92-1731lwhupbcrjpPKA-BC Yandel T Shammo Work Phone: [facility] Work Phone: Start: 05-24-2024 End: 70-86-5244Etfrekw encounter procedureFNP-BC Yandel Shammo Work Phone: [facility] GroupPark[facility] Work Phone: Start: 05-17-2024 End: 16-05-9781Kzraddcat encounterKristi Watts RNGeneral SurgeryComment on above:Patient Update; pt updateStart: 05-14-2024 End: 01-88-1983Zwqscrtas to same day surgery Sarwat Grissom MD Work Phone: General SurgeryComment on above:Body mass index 40.0- 44.9, adult (HCC) (Primary Dx)Start: 05-14-2024 End: 26-22-9514uoqtepuylkJTRSWH FENGFacility:[facility] Hospitaltart: 05-14-2024 End: 02-03-5085Cahqkqquylhe consultation with patientAyse Grissom MD Work Phone: General SurgeryStart: 05-10-2024 End: 06-89-3053ausvuqugicPouhcd Augustine KoromiaFacility:[facility]tart: 05-10-2024 End: 92-47-1116Fcexjfo encounter procedureFNP-BC Yandel More Work Phone: [facility] Cardiology Work Phone: Start: 04-24-2024 End: 64-87-3594olzycycmeiWPYZD PRABHUFacility:[facility] Hospitaltart: 04-24-2024 End: 00-32-1812Xoypuuv encounter procedureAyse Grissom MD Work Phone: General SurgeryComment on above:Gastroesophageal reflux disease, unspecified whether esophagitis presentStart: 04-18-2024 End: 50-19-7523Upktgxaih encounterKristi Watts RNGenest. rita's hospital SurgeryComment on above:Patient UpdateStart: 04-16-2024 End: 17-44-4596ophsoztfywFFHPQvclzykq:[facility] Hospitaltart: 04-16-2024 End: 39-50-4979Wknqnma encounter procedureRocio Jeff MD Work Phone: General SurgeryComment on above:Gastroesophageal reflux disease, unspecified whether esophagitis present (Primary Dx); Incisional hernia, without obstruction or gangreneStart: 04-11-2024 End: 52-43-7299Akzprtwqe encounterJavier Kitchen LPN Work Phone: General SurgeryStart: 03-30-2024 End: 05-83-2983Ukolxhmzm Result EncounterCorey Myriam YOUNG Work Phone: [facility] External Department UnsolicitedStart: 03-30-2024 End: 17-16-4615Fhgyyyvnv Result EncounterCorey Myriam DO Work Phone: noms External Department UnsolicitedStart: 03-20-2024 End: 07-30-5325Qejgqsxvk to same day surgery acmeShruti Dwain FORM MAKER PLASTER.CHIEF SUPPLY CHAIN OFFICER Work Phone: General SurgeryStart: 03-20-2024 End: 04-64-9226udxbhpbffcGmtcr Dwain FORM MAKER PLASTER.CHIEF SUPPLY CHAIN OFFICER Work Phone: General SurgeryStart: 03-13-2024 End: 17-68-6152aldxrcdicpLKGFN FAZIONot AvailableStart: 03-13-2024 End: 35-96-4937Btnmnse encounter procedureMichael R NILL [phone]-GjbwaAvita Health System General Surgery [place] Start: 02-28-2024 End: 91-04-3868ywkbpjafzvUED-BC Yandel T Shammo Work Phone: [facility] Work Phone: Start: 02-28-2024 End: 41-98-1093Uuuxduo encounter procedureFNP-BC Yandel Shammo Work Phone: [facility] Work Phone: Start: 01-05-2024 End: 62-64-5704gqsmwgjqgnDAW RAMEYNot AvailableStart: 12-19-2023 End: 76-16-8056ffifqnmmceMYM RAMEYNot AvailableStart: 12-12-2023 End: 04-00-5116dmcanoiawnCVH-BC Yandel T Shammo Work Phone: [facility] Work Phone: Start: 12-12-2023 End: 21-92-5667Neqlbwnp ReferredFNP-BC Yandel Shammo Work Phone: [facility]-LAB Path Spec Tariq HospStart: 12-09-2023 End: 58-15-4335Jsbuaarof Result EncounterCorey Myriam DO Work Phone: [facility] External Department UnsolicitedStart: 12-09-2023 End: 14-42-9428Qkmtxgkpo Result EncounterCorey Myriam DO Work Phone: [facility] External Department UnsolicitedStart: 12-08-2023 End: 20-87-9511krltvrtvjmYCSZH FAZIONot AvailableStart: 12-02-2023 End: 02-69-8676Uvbwnksyf Result EncounterCorey Myriam DO Work Phone: [facility] External Department UnsolicitedStart: 12-02-2023 End: 58-24-3769Bthsefvzj Result EncounterCorey Myriam DO Work Phone: noms External Department UnsolicitedStart: 11-30-2023 End: 56-40-4020bvixyrlzuhATV RAMEYNot AvailableStart: 11-25-2023 End: 54-47-4928Bsnewsiih Result EncounterCorey Myriam DO Work Phone: [facility] External Department UnsolicitedStart: 11-25-2023 End: 55-24-2612Osnzazkko Result EncounterCorey Myriam DO Work Phone: [facility] External Department UnsolicitedStart: 11-18-2023 End: 81-52-3773Afldpqhre Result EncounterCorey Myriam DO Work Phone: [facility] External Department UnsolicitedStart: 11-18-2023 End: 89-90-6064Yaxivqpfq Result EncounterCorey Myriam DO Work Phone: [facility] External Department UnsolicitedStart: 11-15-2023 End: 43-56-7292Xuedphmyn Result EncounterKassandra ALBERTO Work Phone: [facility] External Department UnsolicitedStart: 11-15-2023 End: 78-50-0175Eyyvxylpo Result EncounterKassandra ALBERTO Work Phone: [facility] External Department UnsolicitedStart: 11-15-2023 End: 67-71-2589oibdkrmllpMLLPQ FAZIONot AvailableStart: 11-02-2023 End: 80-68-3545smmammqplrTUNRFE KHURSHIMercy Health [facility] Hospitaltart: 11-02-2023 End: 02-04-3596Syvjmk outpatient visit 15 minutesEddie Chavez MD Work Phone: [phone]-Ugglj [facility] Comment on above:Essential hypertension affecting in second trimester (Primary Dx)Start: 10-31-2023 End: 24-29-5108qplcpcwsfcMMF RAMEYNot AvailableStart: 10-18-2023 End: 02-84-9286kimroafldmRHTBJ [facility] Hospitaltart: 17-73-3256Hhleipvqmqsdx Hoang Chavez MD Work Phone: [phone]-Xdcjm Medicine at [facility] Start: 10-13-2023 End: 19-79-2641icenndupfuHDYRJ FAZIONot AvailableStart: 09-22-2023 End: 80-86-9086pfpbwwfhwkUCZRPFreeman Neosho HospitalComment on above: Pre-existing essential hypertension during in second trimester (Primary Dx); Advanced maternal age in multigravida, second trimester; Hypothyroid in , antepartumStart: 09-22-2023 End: 65-39-5402Gebtcc consultation new/estab patient 61 Noe Aguilar MD Work Phone: [phone]-Gjwoa Medicine at [facility] Comment on above:Essential hypertension affecting in second trimester (Primary Dx)Start: 09-15-2023 End: 87-21-6973Itvdugig flow Reed ALBERTO Work Phone: noms [facility] OBComment on above:Second trimester ; Diabetes mellitus screening; 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); Hypothyroidism, unspecified type (CMS/HCC)Start: 09-15-2023 End: 59-19-2563npzfrcdnchZAF RAMEYNot AvailableStart: 35-89-5736Xcqqo Alla Bee MD Work Phone: [phone]-Lzvlu Medicine at [facility] Start: 68-99-9006Cvgmywnfa encounterJodi ConkleMaternal Medicine Greenville JunctionStart: 08-18-2023 End: 42-12-8128Hpuqzxbel Result EncounterCorey Myriam DO Work Phone: noms External Department UnsolicitedStart: 08-18-2023 End: 31-91-9782Zzbtepmqv Result EncounterCorey Myriam DO Work Phone: noms External Department UnsolicitedStart: 08-18-2023 End: 39-03-3873zucawfzckiIXTHM FAZIONot AvailableStart: 07-21-2023 End: 98-56-1523hvlpmvzahmDHY RAMEYNot AvailableStart: 06-13-2023 End: 29-48-0232zxkxcfhjmcSLEBA FAZIONot AvailableStart: 05-19-2023 End: 46-61-9511ysrszxkjfiQewmgzms Cordell Other Hunter Pradama Other Start: 39-98-9874Wzyvas outpatient visit 15 minutes Denys GreenbergG GastroenterologyStart: 05-13-2023 End: 88-33-5293Urkvisnwf Result EncounterCorey Myriam DO Work Phone: noms External Department UnsolicitedStart: 05-13-2023 End: 39-84-1811Pzdagunde Result EncounterCorey Myriam DO Work Phone: noms External Department UnsolicitedStart: 03-15-2023 End: 00-86-5365Jhzdyoimm to same day surgery [facility] Yandel More Work Phone: [facility] Work Phone: Start: 03-15-2023 End: 82-66-8378sqovablaxgBRT-BC Yandel Aguilar Shammo Work Phone: [facility] Work Phone: Start: 01-26-2023 End: 06-95-1218Ufe Drop offCon Chiu [facility] Start: 01-26-2023 End: 37-72-0983Iskgexy encounter procedureCon Chiu [facility] start: 01-17-2023 End: 41-84-1784jrhiedabidRwmmnagg McCormack Other Nort Pradama Other Start: 17-06-6648Brmlwr outpatient new 45 minutes Denys López GastroenterologyStart: 12-28-2022 End: 95-29-7019otwvlclmqwNFAIRFY KWAN .Facility:D4Lscsh: 10-16-2022 End: 39-43-5412gzwgkgkaiaJECHG SHAMMOFacility:D7Sjysg: 68-69-3982Pzcnntbkz for general adult medical examination without abnormal findingsLUCAS SHAMMOThe [facility] Centertart: 08-20-2022 End: 41-09-7518enjyfnqrixOUVQK SHAMMOFacility:O0Vxkvv: 08-20-2022 End: 70-71-9077Dchdarwwx for general adult medical examination without abnormal findingsLUCAS SHAMMOFacility:H1 Procedures DateProcedureProcedure DetailPerforming ClinicianStart: 90-44-0328Toqitdke screenComment on above:Order Comment: Specimen Type: BLOOD SPECIMENOrdering Facility: [facility] Address:[address] [place], [place] [address]Performed By: #### [id number] ####CC MAIN BLOOD BANKCLIA [id number] [place] [address] [place] STATES OF AMERICAStart: 79-22-6430Vkoof ankle complete minimum 3 viewsTojacob ALBERTO Work Phone: Start: 66-94-5721Mykjj depression screening assessment Sleep Main Work Phone: Start: 33-45-6718Ojensignep exam chest 2 viewsRenetta Ruano MD Work Phone: Start: 62-36-7790ON ABDOMEN PELVIS W CONCorey Myriam DO Work Phone: Start: 07-96-9094JB OB BPP W NON-STRESSCorey Myriam DO Work Phone: Start: 68-69-7945QU OB BPP W NON-STRESSCorey Myriam DO Work Phone: Start: 39-81-2253IP OB BPP W NON-STRESSCorey Myriam DO Work Phone: Start: 00-01-7974RE OB BPP W NON-STRESSCorey Myriam DO Work Phone: Start: 86-94-9626GN OB GROWTHAmy Dominic ALBERTO Work Phone: Start: 61-73-4001Bmcmt dip stick/tablet rgnt non-auto w/o micrscpAmy Dominic ALBERTO Work Phone: Start: 94-36-5885LL OB ANATOMYCorey Myriam DO Work Phone: Start: 45-61-7874HA OB CERVICAL LENGTHCorey Myriam DO Work Phone: Start: 21-55-0072TBRLH FREE CELL DNA (NON-[facility]) Not In System Ref ProvStart: 54-84-9605CC OB TRANSVAGINALCorey Myriam DO Work Phone: Start: 11-55-8340FytpwothtwnrbdhspsgkomfjuySLE-BC Yandel Shammo Work Phone: Start: 86-57-5682MzfcxghqpdibJeivq Lue Start: 22-58-3114Hhrlsgs sleeveKathy Lue Start: 61-21-5657YnyvpzwforyjczmCpynq Lue Arthroplasty of kneeKathy Lue Comment on above:Meniscus repairCesarean sectionKathy Lue Comment on above:m5Kxxoisjp sectionMichael NILL Repair of meniscusMichael NILL Plan of Treatment DateCare ActivityDetailAuthorStart: 47-63-7381UB Controlled (<130/80)BP Controlled (<130/80)[facility] Administrationtart: 93-35-5506Scgogxh ScreeningAnxiety ScreeningVeterans Health Administrationtart: 55-76-0071Civdirhyqe ScreeningDepression ScreeningVeterans Health Administrationtart: 15-42-9504Ldorrlzse vaccinationFlower Hospital Start: 12-65-6837Jvjeoqg referralUniversity Hospitals Geauga Medical Center Work Phone: Start: 02-19-2025 End: 32-51-3319Tyatztsvg to same day surgery yavflz9402/19/2025 1:30 PM EDT Education General Surgery [id number] Anthony Mckeon, VALENTINO [address] [place] [address] post op three months/ gastric bypass 11/23/2024General SurgeryComment on above: post op three months/ gastric bypass 11/23/2024Start: 02-18-2025 End: 21-34-2746Wwfjzvd encounter bdagsflil68/21/2025 11:30 AM EDT [facility] [address] [place] [address] Renetta Ruano MD [address] [place] [address] post op three months/ gastric bypass 11/23/2024[facility] Comment on above:post op three months/ gastric bypass 11/23/2024Start: 02-11-2025 End: 75-46-6150[place] encounter vogqjbdqj22/14/2025 11:30 AM EDT [facility] [address] [facility] [place] [address] Renetta Ruano MD [address] [place] [address] post op three months/ gastric bypass 11/23/2024[facility] Comment on above:post op three months/ gastric bypass 11/23/2024Start: 12-21-2024 End: 47-75-5023Ufobcihmp to same day surgery centerGeneral SurgeryComment on above:post op one month/ gastric bypass 11/23/2024Start: 12-14-2024 End: 90-60-5579Mbwegkw encounter cwbrhlauv86/16/2025 11:00 AM EDT Office Visit General Surgery [address] [address] Khoa Silveira, FORM MAKER PLASTER.CHIEF SUPPLY CHAIN OFFICER [address] [place] [address] Post Op Wound CheckGeneral SurgeryComment on above:Post Op Wound CheckStart: 12-05-2024 End: 02-02-8995Mgucass encounter zuvoebpsc95/07/2025 11:00 AM EDT Office Visit General Surgery [address] [address] Khoa Silveira, FORM MAKER PLASTER.CHIEF SUPPLY CHAIN OFFICER [address] [address] right merced drain removalGeneral SurgeryComment on above:right merced drain removalStart: 12-05-2024 End: 59-97-6657eplfmvvldi82/07/2025 8:30 AM EDT Education BMI [place] [address] [place] [address] [place] [address] post op refresherBMI MentorComment on above:post op refresherStart: 11-30-2024 End: 80-00-5897Twiyafkzv to same day surgery lhopdu4911/30/2024 1:20 PM EDT [facility] [address] [place] [address] [phone] Ayse Grsisom MD [address] [place] [address] post op 7-10 day/ hernia 11/23/2024General SurgeryComment on above:post op 7-10 day/ hernia 11/23/2024Start: 11-23-2024 End: 17-48-7385Hchrwfppb to same day surgery centerAdmittingComment on above: HERNIORRHAPHY INCISIONAL ABDOMINAL RECURRENT REDUCIBLE GREATER THAN 10cmStart: 11-23-2024 End: 51-99-8909HHUGOOAYUXYCI INCISIONAL ABDOMINAL RECURRENT REDUCIBLE GREATER THAN 10cmHERNIORRHAPHY INCISIONAL ABDOMINAL RECURRENT REDUCIBLE GREATER THAN 10cm Preoperative examination Hiatal hernia Morbid obesity (HCC) 11/23/2024 10:15 AM [facility] MAIN PAVILIONStart: 11-23-2024 End: 37-85-9654Aotv gstr rstcv px w/byp maria antonia-en-y limb <150 cmLAPAROSCOPIC GASTRIC RESTRICTIVE SURG W/ BYPASS & MARIA ANTONIA-EN-Y 150CM OR LESS Preoperative examination Hiatal hernia Morbid obesity (HCC) 11/23/2024 10:15 AM [facility] MAIN PAVILIONStart: 11-23-2024 End: 96-43-7102Jezb rpr paraesphgl hrna incl fundplsty w/meshLAPAROSCOPIC RPR PARAESOPHAGEAL HERNIA W/O FUNDOPLASTY W/ MESH Preoperative examination Hiatal hernia Morbid obesity (HCC) 11/23/2024 10:15 AM [facility] MAIN PAVILIONStart: 26-87-2008Xulatyqbkg hospital visit by physicianAdmittingComment on above: Preoperative examination [Z01.818], Hiatal hernia [K44.9], Morbid obesity (HCC) [E66.01]Start: 63-15-4952Colzocyrng hospital visit by ycxniyflx10/20/2025 Hospital Encounter Admitting [address] [place] [address] Ayse Grissom MD [address] [place] [address] Morbid obesity (HCC) [E66.01], Hiatal hernia [K44.9], Preoperative examination [Z01.818]AdmittingComment on above:Morbid obesity (HCC) [E66.01], Hiatal hernia [K44.9], Preoperative examination [Z01.818]Start: 2024 End: 70-83-5083Lfpnpana Ijdpthm4311/01/2024 1:10 PM EDT Clinical Support [facility] [address] [facility] [address] [place] [phone] Ran Osullivan, DPHoward [address] [facility] [address] [place] [address] Other specified disorders of synovium, right ankle and foot (Primary Dx); Sinus tarsitis of right foot; Contracture of left ankleNOMS CI PODIATRYComment on above:Other specified disorders of synovium, right ankle and foot (Primary Dx); Sinus tarsitis of right foot; Contracture of left ankleStart: 10-22-2024 End: 37-00-5298zTTJ in Platelet poor plasma by Coagulation assayACTIVATED PARTIAL THROMBOPLASTIN TIME Lab Routine Preoperative examination Hiatal hernia Morbid obesity (HCC) Expected: 10/22/2024, [facility] Comment on above:Expected: 10/22/2024, Expires: 02/27/2025Start: 10-22-2024 End: 93-60-7375YRL W Auto Differential panel - BloodCOMPLETE BLOOD COUNT AND DIFFERENTIAL Lab Routine Preoperative examination Hiatal hernia Morbid obesity (HCC) Expected: 10/22/2024, Expires: 02/27/2025[facility] ClinicComment on above: Expected: 10/22/2024, Expires: 02/27/2025Start: 10-22-2024 End: 11-70-7099Qvdfumymporfv metabolic 2000 panel - Serum or PlasmaCOMPREHENSIVE METABOLIC PANEL Lab Routine Preoperative examination Hiatal hernia Morbid obesity (HCC) Expected: 10/22/2024, Expires: 02/27/2025[facility] ClinicComment on above:Expected: 10/22/2024, Expires: 02/27/2025Start: 10-22-2024 End: 31-43-8597OP panel - Platelet poor plasma by Coagulation assayPROTHROMBIN TIME Lab Routine Preoperative examination Hiatal hernia Morbid obesity (HCC) Expected: 10/22/2024, Expires: 02/27/2025[facility] ClinicComment on above: Expected: 10/22/2024, Expires: 02/27/2025Start: 10-22-2024 End: 56-59-0988QIBZ AND SCREEN,30 DAYTYPE AND SCREEN,30 DAY Blood Bank Routine Preoperative examination Hiatal hernia Morbid obesity (HCC) Expected: 10/22/2024, Expires: 02/27/2025[facility] ClinicComment on above:Expected: 10/22/2024, Expires: 02/27/2025Start: 80-14-0211Izjrnwsjcr hospital visit by ccnsdjvuy24/09/2025 Hospital Encounter Admitting [address] [place] [address] Ayse Grissom MD [address] [place] [address] Morbid obesity (HCC) [E66.01], Hiatal hernia [K44.9], Preoperative examination [Z01.818]AdmittingComment on above:Morbid obesity (HCC) [E66.01], Hiatal hernia [K44.9], Preoperative examination [Z01.818]Start: 94-47-0209Anzgyikwph hospital visit by yxpxkushp00/06/2025 Hospital Encounter Admitting [address] [place] [address] Ayse Grissom MD [address] [place] [address] Morbid obesity (HCC) [E66.01], Hiatal hernia [K44.9], Preoperative examination [Z01.818]Admitting Comment on above:Morbid obesity (HCC) [E66.01], Hiatal hernia [K44.9], Preoperative examination [Z01.818]Start: 60-13-3419Qglgv BMI ScreeningAdult BMI ScreeningProKettering Health [facility] SystemStart: 46-51-1383Aomuedi ScreeningTobacco ScreeningProKettering Health – Soin Medical Center SystemStart: 09-22-2024 End: 24-06-3551FS MFM with or without consultUS MFM with or without consult Imaging Routine Pre-existing essential hypertension during pregnancyin second trimester Advanced maternal age in multigravida, second trimester Hypothyroid in , antepartum Expected: 09/22/2024 (Approximate), Expires: 09/22/2024 [facility] Work Phone: comment on above:Expected: 09/22/2024 (Approximate), Expires: 09/22/2024Start: 09-20-2024 End: 61-38-6711Ejbdniq encounter ljbfasxpo86/20/2025 9:40 AM EST Office Visit [facility] [address] [facility] [address] [place] [address] Ran Osullivan, FRANCISCO JAVIER [address] [facility] 5 [place] [address] NOM[facility] CI PODIATRYStart: 08-21-2024 End: 35-71-5884YWKBEBUN & METAB, URNICOTINE & METAB, UR Lab Routine Nicotine dependence in remission, unspecified nicotine producttype Expected: 08/21/2024, Expires: 11/20/2024[facility] Work Phone: Comment on above:Expected: 08/21/2024, Expires: 11/20/2024Start: 06-21-2024 End: 83-46-3667Udylzucesyxt / ancillary services smlljuleph51/21/2024 3:00 PM EST Ancillary Procedure [facility] [address] [place] [address] NOMS FNR ULTRASOUNDStart: 06-20-2024 End: 03-53-7070QY.doppler Lower extremity vein - rightVascular US lower extremity venous duplex right Imaging Routine Pain and swelling of right lower leg Expected: 06/20/2024, Expires: 06/20/2025[facility] Work Phone: Comment on above:Expected: 06/20/2024, Expires: 06/20/2025Start: 06-20-2024 End: 39-79-9421Zeacfer encounter wljbezyyn88/20/2024 9:45 AM EST Office Visit [facility] [address] [place] [phone] Africa Hall PA [address] [place] [address] ArrivedNOMS OWENS ORTHOComment on above:ArrivedStart: 06-08-2024 End: 55-47-0389Dzflggf encounter fviungubi86/08/2024 2:20 PM EST Office Visit Financial Clearance Phone Screening [address] [address] Chest XRay and LabWorkFinancial Clearance Phone ScreeningComment on above:Chest XRay and Lab WorkStart: 06-07-2024 End: 29-16-4358Jdhyetpkl to same day surgery nawbll1806/07/2024 1:15 PM EST [facility] [address] [place] [address] Leah Zuniga, RD [address] [address] Purple/Praveena/0 Diet/TricareGeneral SurgeryComment on above:Purple/Praveena/0 Diet/TricareStart: 06-01-2024 End: 77-34-9641QWYKNVWI & METAB, URNICOTINE & METAB, UR Lab Routine Preoperative examination Expected: 06/01/2024, Expires: 08/31/2024[facility] Work Phone: Comment on above:Expected: 06/01/2024, Expires: 08/31/2024Start: 76-06-0004TrnypcdpzCleveland Clinic [facility] Hospitaltart: 04-24-2024 End: 76-93-0734Ztktgxm encounter /24/2024 9:00 AM EDT Office Visit General Surgery [address] [place] [address] Ayse Grissom MD [address] [place] [address] K21.9 (ICD-10-CM) - Gastroesophageal reflux disease, unspecified whether esophagitis presentGeneral SurgeryComment on above:K21.9 (ICD-10-CM) - Gastroesophageal reflux disease, unspecified whether esophagitis presentStart: 04-16-2024 End: 39-40-0659Kbhkjnu encounter procedureGeneral SurgeryComment on above: Ventral wall mass & abdominal wall herniaPT TO BRING IMAGING FOR APPT/CT A/P 03/29/24Start: 38-94-9044Xamoi-19 Vaccine ( season)Covid-19 Vaccine ()[facility] Administrationtart: 53-86-3706Lmgak-19 Vaccine ( season)Covid-19 Vaccine ( season)[facility]tart: 04-01-2024 Influenza vaccinationVeterans Health Administrationtart: 20-68-1580Qogbjvx referralUniversity Hospitals Geauga Medical Center Work Phone: Start: 06-80-3455Cield BMI ScreeningAdult BMI ScreeningWhite Hospital SystemStart: 11-02-2023 End: 58-24-2387Aehakvozjlgk consultation with vjrmsci0111/02/2023 11:30 AM EDT Telemedicine Maternal- Medicine at [facility] [address] [place] [address] Eddie Chavez MD [address] [place], [place] [phone] (Work) Héctor Aguilar MD [address] [facility], [address] [place] [address] [facility]: 10-18-2023 End: 54-52-0614Crlywcglzlqz consultation with novubjs7710/18/2023 1:30 PM EDT Telemedicine Maternal- Medicine at [facility] [address] [place] [address] Eddie Chavez MD [address] [place] [address] M[facility]- Medicine at [facility] HospitalStart: 10-18-2023 End: 30-19-4064Pvjvuuu encounter wrorjzmur34/19/2024 12:30 PM EDT Appointment [facility] - Ultrasound [address] [place] [address] [phone] Memorial Hospital - UltrasoundStart: 10-13-2023 End: 79-44-0618Iibipbg encounter nanmqaxrp32/14/2024 10:50 AM EDT Routine [facility] OB [address] [place] [phone] Adrian Kerr, DO [address] [place] [address] NOM[facility] BCP OBStart: 09-15-2023 End: 45-35-7144LVP panel - Blood by Automated countCBC Lab Routine Diabetes mellitus screening Expected: 09/15/2023 (Approximate), Expires: 09/15/2024[facility] Work Phone: comment on above:Expected: 09/15/2023 (Approximate), Expires: 09/15/2024Start: 09-15-2023 End: 33-93-7507Icxgdroxtza of glucose 1 hour after glucose challenge for glucose tolerance testGlucose tolerance, 1 hour Lab Routine Diabetes mellitus screening Expected: 09/15/2023 (Approximate), Expires: 09/15/2024[facility]OC[facility]on [facility] Medical CenterComment on above:Expected: 09/15/2023 (Approximate), Expires: 09/15/2024Start: 09-15-2023 End: 62-92-6093Rcgflhouean [Units/volume] in Serum or PlasmaTSH Lab Routine Hypothyroidism, unspecified type (CMS/HCC) Expected: 09/15/2023 (Approximate), Expires: 09/15/2024[facility] HealthcareComment on above:Expected: 09/15/2023 (Approximate), Expires: 09/15/2024Start: 09-14-2023 End: 06-97-8014Bmhnhsz encounter procedureDayton Children's Hospital US ImagingStart: 67-72-2044Yvzvy-19 Vaccine ( season)Covid-19 Vaccine ()[facility] Administrationtart: 95-56-9143Cezrboyow vaccination Influenza VaccineWhite Hospital SystemStart: 42-35-6228AwdtjvtokCleveland Clinic [facility] Hospitaltart: 16-88-2139Nwlylhpvg for malignant neoplasm of cervix [facility] Administrationtart: 04-50-8047QVcF,Tdap and Td Vaccines (1 - Tdap)DTaP,Tdap and Td Vaccines (1 - Tdap)[facility] Healt[facility]art: 23-18-7062Xkpmonyrm B Vaccine (1 of 3 - 19+ 3-dose series)Hepatitis B Vaccine (1 of 3 - 19+ 3-dose series)[facility]tart: 90-78-4849Ybdsd microalbumin profileDTaP,Tdap,Td Vaccine (1 - Tdap)[facility]tart: 43-32-1118Gsman BMI Follow Up PlanAdult BMI Follow Up PlanCommunity Healthtart: 45-39-0555Wnwwsb PCP Team Chronic Disease VisitAnnual PCP Team Chronic Disease VisitVeterans Health Administrationtart: 96-70-7188Zyypeut ScreeningAnxiety ScreeningVeterans Health Administrationtart: 13-40-4061OT Controlled (<130/80)BP Controlled (<130/80)[facility]tart: 2004 Depression ScreeningDepression ScreeningVeterans Health Administrationtart: 2004 Hepatitis C screeningHepatitis C ScreeningVeterans Health Administrationtart: 18-40-6279MYO screeningHIV ScreeningVeterans Health Administrationtart: 17-34-3929Vjyqgshzxl Screening Depression ScreeningWhite Hospital SystemStart: 24-44-3624Kzswvwt Screening Tobacco ScreeningWhite Hospital SystemStart: 08-75-5706Dgcqtidhujec vaccinationPneumococcal Vaccine (1 of 2 - PCV)[facility] HospitalComprehensive metabolic 2000 panel - Serum or PlasmaTrinity Health System West Campus End: 16-03-5480TX Abdomen and Pelvis WO contrastCT ABD/PEL WO IVCON Radiology Routine Postoperative visit S/P hernia repair 1 Occurrences starting 01/25/2025 until 02/24/2026[facility] Work Phone: Comment on above:1 Occurrences starting 01/25/2025 until 02/24/2026 End: 15-96-8917HDV COMPLETEECG COMPLETE ECG Routine Preoperative examination Hiatal hernia Morbid obesity (HCC) 1 Occurrences starting 10/01/2024 until 09/28/2025[facility] HospitalComment on above:1 Occurrences starting 10/01/2024 until 09/28/2025Hemoglobin A1c/Hemoglobin.total in BloodHemoglobin A1c Lab Routine Diabetes mellitus screening Ordered: 09/15/2023[facility] SystemComment on above:Ordered: 09/15/2023HERNIORRHAPHY INCISIONAL ABDOMINAL RECURRENT REDUCIBLE GREATER THAN 10cmHERNIORRHAPHY INCISIONAL ABDOMINAL RECURRENT REDUCIBLE GREATER THAN 10cm Preoperative examination Hiatal hernia Morbid obesity (HCC) MAIN PAVILION End: 34-85-5427WOIK SLEEP APNEA TEST (HSAT)HOME SLEEP APNEA TEST (HSAT) Procedures Routine Morbid obesity due to excess calories (HCC) S/P bariatric surgery Preoperative testing Snoring Other fatigue Morbid obesity with BMI of 40.0-44.9, adult (HCC) 1 Occurrences starting 05/24/2024 until 05/24/2025 [facility] HospitalComment on above:1 Occurrences starting 05/24/2024 until 05/24/2025Laps [...] obesity (HCC) [facility]IN [facility]AVILION Patient EducationHiatal hernia DiverticulosisDayton Osteopathic Hospital Work Phone: Patient referralUniversity Hospitals Geauga Medical Center Work Phone: REFER FOR ADMIT INTERVIEWREFER FOR ADMIT INTERVIEW Procedures Routine Preoperative examination Hiatal hernia Morbid obesity (HCC) Ordered: 10/01/2024[facility] Work Phone: Comment on above:Ordered: 10/01/2024XR Ankle - right GE 3 ViewsTrinity Health System West Campus End: 86-69-9534ZE Chest PA and LateralXR CHEST 2V FRONTAL/LAT Radiology Routine Morbid obesity due to excess calories (HCC) S/P bariatricsurgery Preoperative testing Snoring Other fatigue Morbid obesity with BMI of 40.0-44.9, adult (HCC) 1 Occurrences starting 05/24/2024 until 06/23/2025[facility] Work Phone: Comment on above:1 Occurrences starting 05/24/2024 until 06/23/2025[facility] Immunizations Immunization DateImmunizationNotesCare UkdmkfpzKeddhziq87-97-6889lnvbmicqr virus vaccine, unspecified formulationKathy Lue [facility]2022influenza, seasonal, injectableFNP-BC Yandel Shammo Work Phone: [facility] Payers DatePayer CategoryPayerPolicy [id number] Care HMO (unspecified) [id number] Health [id number] Health [id number]-bvg 35-10-7220SljbjnfSMJCNWVX EAST [id number] 2023-[facility] [phone] [address] [place] [address] Indemnity [id number] of Defense ( and others)[id number] (not Medicare or Medicaid) [id number]1.61200-74-7087RJNBJTR () 1.2.840.198522.1.13.693.2.7.9.266804.582411.97366-93-3810Bugwpwocjj of Defense ( and others)[id number] of Defense ( and others)1.2.840.886258.1.13.693.2.7.3.163197.21652-16-7719Zrrneeejbj of Defense ( and others)[id number] 2.16.840.1.588000.3.57[id number] 2.16.840.1.262476.3.57[id number] 2.16.840.1.793535.3.57[id number] 2.16.840.1.293340.3.57[id number] 2.16.840.1.659859.3.57[id number] 2.16.840.1.613914.3.579.2.5[id number] 2.16.840.1.162806.3.579.[id number] 2.16.840.1.943956.3.579.2.014768-56-2176Jzvapqm0007765 2.16.840.1.834350.3.579.[id number] 2.16.840.1.309440.3.579.2.471355-59-4793Oqgejpf1528719 2.16840.1.124932.3.579.2.362819-42-2874Ysrxits6477719 2.16.840.1.107502.3.579.[id number] 2.16.840.1.414565.3.57[id number] 2.16.840.1.410470.3.579.[id number] 2.16.840.1.328616.3.579.2.[id number] 2.16.840.1.016565.3.579.[id number] 2.16.840.1.784959.3.579.2.745432-85-6842Mbwaapa61133 2.16.840.1.441752.3.579.2.[id number] 2.16.840.1.285124.3.579.2.[id number] 2.840.1.191240.3.579.[id number] 2.16840.1.219420.3.579.2.011472-83-4618Tolkdpt3931118 2.0.1.719391.3.579.2.18[id number] 2.0.1.011408.3.579.2.666899-90-6842Dknrcfa9664212 2.0.1.385352.3.579.[id number] 2.0.1.868030.3.579.2.874529-33-1969Qyntovl1265468 2.0.1.409734.3.579.[id number] 2.0.1.813495.3.579.2.464172-37-3525Uqujbat9985465 2.0.1.000410.3.579.2.140996-93-4975Wevmvzg4166834 2.0.1.022150.3.579.2.265222-57-1029Sxrclks9528659 2.0.1.625891.3.57[id number] 2.0.1.939863.3.579.2.[id number] 2.0.1.597572.3.579.2.82591-53-4122Cdkzxtsqmk of Defense ( and others)[id number] 2.0.1.4[id number] 2.16.840.1.157246.3.579.2.531 Social History DateTypeDetailFacilityStart: 07-20-2023 End: 42-23-5296Xvb Assigned At BirthSouthern [facility] Medical Centertart: 01-26-2023 End: 54-23-8180Sejhwmz smoking statusEx-smoker (finding)[facility]vueStart: 59-41-8433Wrrkaor smoking status NHIS Smoker (finding)[facility]: 01-83-4400Zqe [facility] 01-03[facility]2023 End: 27-01-7010Vcomxcb smoking status NHISNever smoked tobaccoNOCT Healthcare Start: 01-03-2023 End: 96-52-2836Rourfon use and exposureSmokeless tobacco non-userWhite Hospital SystemStart: 09-15-2023 End: 27-23-1377Zlnlzvm intakeEx-drinker (finding)[facility] SystemStart: 07-20-2023 End: 29-72-4284Fznraaz of Social functionNOMS HealthcareHow often to you have a drink containing alcohol?Monthly or lessNOMS HealthcareHow many standard drinks containing alcohol do you have on a typical day?1 or 2NOMS HealthcareHow often do you have 6 or more drinks on 1 occasion?NeverNOMS HealthcareStart: 01-03-2023 Alcohol Commentcaffeine: 1-2 cups per dayNOCT HealthcareStart: 04-11-2023 PregnancyProKettering Health – Soin Medical Center SystemStart: 55-60-1343Zksnlp identityIdentifies as female gender (finding)NOMS HealthcareTobacco smoking status NHISTobacco smoking consumption unknownFlower Hospital Work Phone: start: 56-99-3274Pni assigned at birthNot on file [facility] SystemStart: 97-65-6603Exlqhk orientationHeterosexual (finding) [facility] SystemStart: 49-81-1284Xkqwzrr smoking status NHISSmokes tobacco dailyFlower HospitalHistory of tobacco usePipe SmokerFlower Hospital Start: 58-62-7187Bkwvrbur Score (1-100), lower number is lower abtz81GqkvlinriVeterans Health Administrationtart: 91-70-0736Fipoicw use and exposureUser of smokeless tobacco [facility] Administrationtart: 55-78-3787Xwhffybqc beverage intakeLifetime non-drinker (finding)[facility] Administrationtart: 03-13-2024 End: 82-24-5547Xaodpkc CommentVapeCKettering Health Troytart: 06-19-2024 End: 22-01-3838JiqShrohf (finding)[facility] Hospitaltart: 54-94-9097Nhlbnih CommentSocially/rareNOMS HealthcareHas the electric, gas, oil, or water company threatened to shut off services in your home in past 12MoNo [facility] Work Phone: (I/We) worried whether (my/our) food would run out before (I/we) got money to buy more.Never trueVeterans Health Administrationtart: 05-30-2023 End: 20-15-7248Ttzvvydq to SARS-CoV-2 (event)Not sureNOMS HealthcareSexual OrientationExecutive [facility] of [facility] Medical Equipment Procedure CodeEquipment CodeEquipment Original TextEquipment IdentifierDatesMesh Prolene [place] 18z74zy Surgical Knit Nonabsorbable Nonreactive - [id number]: 11-23-2024 Goals DatePatient GoalDesired Activity/StatePersonal health goalPersonal health goal Functional Status CtotIqqoqwlqxzYeqawnMnankizo91-82-2154Tqe you deaf, or do you have serious difficulty hearingNo 11/27/2024 11:51 AM Rupal Sanchez RN NoCleveland Stsbor81-93-9280Ckl you blind, or do you have serious difficulty seeing, even when wearing glassesNo 11/27/2024 11:51 AM Rupal Sanchez RN NoCleveland Dwgaah24-48-2846Ev you have serious difficulty walking or climbing stairsNo 11/27/2024 11:51 AM EDRupal Alfaro RN [facility]04-29-2025Do you have difficulty dressing or bathingNo 11/27/2024 11:51 AM EDRupal Alfaro RN [facility] SystemXsbaaf92-63-1801Chjgtef of a physical, mental, or emotional condition, do you have difficulty doing errands alone such as visiting a physician's office or shoppingNo 11/27/2024 11:51 AM EDRupal Alfaro RN [facility] CompanyGvnrdp92-63-3456Tdrwxztloa StatusN/[facility] General Surgery Adgevob52-51-0092Sresn score [AUDIT-C]1 07/20/2023 1:39 PM SHAHLA [facility], SmyrnaUskzjqfucr23-96-7593Jgkrojzfjh StatusNoExecutive [facility] of [facility] Mental Status MsgyNcvsbomnndVrindkKrghjswk13-71-6494Dhoeumd of a physical, mental, or emotional condition, do you have serious difficulty concentrating, remembering, or making decisionsNo 11/27/2024 11:51 AM Rupal Sanchez RN [facility] Clinical Notes 01-17-2023 to 06-11-2025 Note Date & QvphJynyRnwefncq58-54-8445 Hospital Discharge instructions Patient Education 06/11/2025 15:38:00 Kidney Stones, Muzv-zz-Iqwv Kidney Stones Kidney stones are rock-like masses [...] Follow these instructions at home: Medicines Take rrfd-efp-paedydn and prescription medicines only as told by [...] provider. Document Revised: 03/11/2023 Document Reviewed: 03/11/2023 [employer] Patient Education 2023 Pharmaca. 06/11/2025 15:37:48 Flank Pain, Adult Flank Pain, [...] told by your health care provider. Take czph-pzi-nkzkrez and prescription medicines only as told by [...] provider. Document Revised: 09/28/2021 Document Reviewed: 09/28/2021 [employer] Patient Education 2023 [employer]aca. 06/11/2025 15:37:41 Urinary Tract Infection, Adult Urinary [...] Treatment for this condition includes: Antibiotic medicine. Fiys-nmy-rvurnoy medicines to treat discomfort. Drinking enough water [...] Follow these instructions at home: Medicines Take eayu-ykc-exbravo and prescription medicines only as told by [...] provider. Document Revised: 02/22/2021 Document Reviewed: 02/27/2021 [employer] Patient Education 2023 Pharmaca. Follow Up Care 06/10/2025 11:02:23 With:Bárbara Nguyen PA-C, JAZMINEL Address: When: Unknown Comments:F/up pending results [facility] 11-11-2025 NotePatient Education Orthopedics Flank Pain, [...] by your health care provider. ??? Take dent-ybf-ipsncjg and prescription medicines only as told by [...] provider. Document Revised: 09/28/2021 Document Reviewed: 09/28/2021 [employer] Patient Education ? 2023 Pharmaca. Urology Kidney Stones Kidney stones are rock-like [...] these instructions at home: Medicines ??? Take htjs-bto-sxnwpqn and prescription medicines only as told by your doctor. ??? Ask your doctor if the medicin (more content not included)...[facility]07-28-2025 History of Present illness Narrative* Ran [...] Insecurity: No Food Insecurity (11/26/2024) [facility] Hunger Vital Sign Worried About Running Out of Food in the Last Year: Never true Ran Out of Food in the Last Year: Never true Transportation Needs: No Transportation Needs (11/26/2024) [facility] from [facility] PRAPARE - Transportation Lack of Transportation (Medical): No Lack of Transportation (Non-Medical): No Physical Activity: Not on file Stress: Not on file Social Connections: Not on file Intimate Partner Violence: Not on file Housing Stability: Unknown (11/26/2024) [facility] from [facility] Housing Stability Vital Sign Unable to [...] weeks Ran Osullivan DPM documented in this encounterSaint John's Health SystemMfsyfxuhkw55-29-1574 NoteHNO ID: [id number] Author: ANTHONY MCKEON RD Service: ? Author Type: Registered Dietitian Type: Progress Notes Filed: 02/19/2025 14:54 Note Text: Patient was scheduled for a nutrition appointment today. The patient did not check into their scheduled appointment. I sent the patient a [employer] message encouraging them to reschedule their appointment by calling [phone]. [facility]07-22-2025 History of Present illness Narrative* Anthony Mckeon RD - 02/19/2025 2:54 PM EDT Patient was scheduled for a nutrition appointment today. The patient did not check into their scheduled appointment. I sent the patient a [employer] message encouraging them to reschedule their appointment by calling [phone]. documented in this encounterFlower Hospital06-27-2025 Telephone encounter Note * Telephone Encounter - [...] for abdominal (neuropathic) pain. Khoa Silveira, MSN, FORM MAKER PLASTER, FIELD PARTY MANAGER-C January 25, 2025 11:30 AM [facility]06-27-2025 Miscellaneous Notes* Telephone Encounter - Khoa Silveira [...] for abdominal (neuropathic) pain. Khoa Silveira, MSN, FORM MAKER PLASTER, FIELD PARTY MANAGER-C January 25, 2025 11:30 AM documented in this encounterFlower Hospital05-30-2025 Nelly ID: [id number] Author: KHOA SILVEIRA APRN.CHIEF SUPPLY CHAIN OFFICER Service: ? Author Type: Nurse Practitioner Type: Progress Notes Filed: 12/28/2024 11:27 Note Text: [facility] Clinic Date: [...] concerns with healing wound Khoa Silveira, MSN, CHIEF SUPPLY CHAIN OFFICER [facility] 28[facility]05-30-[facility] History of Present illness Narrative* Khoa Silveira, BRENDA.CHIEF SUPPLY CHAIN OFFICER - 12/28/2024 11:03 AM EDT Images from the original note were not included. [facility] Clinic Date: December 28, [...] activities, including lifting weights and riding roller Constitution Medical Investorsers, but notes that she is still in [...] concerns with healing wound Khoa Silveira, MSN, CHIEF SUPPLY CHAIN OFFICER December 28, 2024 * Shireen Morrissey - [...] Temperature: No Drains: No documented in this encounterFlower Hospital05-30-2025 NoteHNO ID: [id number] Author: ?, ?, ? Service: ? Author [...] Wound: clean AND dry Temperature: No Drains: [facility]05-23-2025 NoteEducation (GENBMI) TIFFANI ALLISON ([id number]) 1985 F Date Time Provider Department 12/21/24 [...] ORAL) Encounter Status:Closed by CHA KHAN on 12/21/24[facility] 12-21-2024 NoteHNO ID: [id number] Author: CHA KHAN RD Service: ? Author [...] visit. Either the patient or their legal sales representative sales manager has been informed of the risks and [...] thiamine) Iron 45-60 mg and calcium citrate 8099-0941 mg/day in divided doses 2. Protein goal: [...] Signed by: Cha Khan RDN, MARIA EUGENIA, [facility]05-23-2025 Note HNO ID: [id number] Author: AYSE GRISSOM MD Service: ? Author [...] Laparoscopic AND Bariatric Surgery Bariatric AND Metabolic [facility]-22-[facility]25 Evaluation note* Diagnosis Onset Date Resolution Status [...] 2024 9:55amScreening for lipid disordersacuteJuly 2024 9:55am [facility] Work Phone: 1(680) 130-709805-21-2025 NoteHNO ID: [id number] Author: JERALD SOUZA, PhD Service: ? Author Type: Physician Type: Progress Notes Filed: 12/26/2024 00:15 Note Text: [facility] DEPARTMENT OF PSYCHIATRY AND PSYCHOLOGY/[facility] AND [facility]IC [facility] Bariatric Behavioral Services Progress Note December 19, 2024 Billing codes: ABRAM FIELDS [address] Quang CPT Code: - 0918115 Virtual Group Psychotherapy Time initiated session: 12:00 PM to 1:11 PM I have communicated my name and active licensure. The patient's identity and physical location were verified at the time of this visit. Either the patient or their legal sales representative sales manager has been informed of the risks and benefits of -- and alternatives to -- treatment through a remote evaluation/session and consents to proceed with the session remotely. Platform: PixelPin Session #: 1 with undersigned psychologist Index [...] once daily. metFORMIN (GLUCOPHAGE) (more content not included)...[facility] 12-14-2024 NoteHNO ID: [id number] Author: KHAO SILVEIRA APRN.CHIEF SUPPLY CHAIN OFFICER Service: ? Author Type: Nurse Practitioner Type: Progress Notes Filed: 12/14/2024 15:25 Note Text: [facility] Clinic Date: [...] doxycycline. - Ref[facility] muscle relaxers [facility]. - Advised to gradually reduce pain medication dosage. - Scheduled follow-up appointment on 12/28 at 11:00 AM. Khoa Silveira, MSN, CHIEF SUPPLY CHAIN OFFICER December 14[facility]05-16-2025 History of Present illness Narrative* Khoa Silveira, FORM MAKER PLASTER.CHIEF SUPPLY CHAIN OFFICER - 12/14/2024 11:27 AM EDT Images from the original note were not included. [facility] Clinic Date: [...] doxycycline. - Refilled muscle relaxers prescription at [facility]. - Advised to gradually reduce pain medication dosage. - Scheduled follow-up appointment on 12/28 at 11:00 AM. WILBER Herrera, CHIEF SUPPLY CHAIN OFFICER December 14, 2024 * Sudarshan Russell MA [...] Temperature: No Drains: No documented in this encounterFlower Hospital05-16-2025 NoteHNO ID: [id number] Author: SUDARSHAN RUSSELL MA Service: ? Author Type: Microcomputer Support Specialist Type: Progress Notes Filed: 12/14/2024 15:25 Note Text: What is the reason for your visit today? Post op Who is your referring physician? Dr. Silveira Are you having poor oral intake? NO Have you had unintentional weight loss of 15 lbs/7 Kg in the last 3-6 months? NO Bowels: constipated Wound: drainage pink/ clear Temperature: No Drains: [facility]05-08-2025 Telephone encounter Note* Telephone Encounter - Kristi [...] legs - BEST TO ALWAYS present to [facility] where you had your surgery Patient verbalized understanding of all advice and instructions given. Kristi Watts RN [facility] TELEPHONE ENCOUNTER 2nd attempt for post op phone call LVM with call back number [facility]05-08-2025 Miscellaneous Notes* Telephone Encounter - Kristi Watts RN - 12/06/2024 11:05 AM EDT [facility] POST-OP TELEPHONE CALL [facility] Post Op Telephone Call Pt was called [...] appt. Reminded patient of how to reach [facility] or their surgeons office. Patient reminded to seek medical attention if they develop chest pain, a sudden onset of shortness of breath or persistent pain in the calf of their legs - BEST TO ALWAYS present to [facility] where you had your surgery Patient verbalized understanding of all advice and instructions given. Kristi Watts RN [facility] TELEPHONE ENCOUNTER 2nd attempt for post op phone call LVM with call back number documented in this encounterFlower Hospital05-07-2025 Telephone encounter Note * Telephone Encounter - Kristi Watts RN - 12/05/2024 11:17 AM EDT [facility] TELEPHONE ENCOUNTER Post op call, Pt will call me back he answered and she was at an appointment [facility]05-07-2025 Miscellaneous Notes* Telephone Encounter - Kristi Watts RN - 12/05/2024 11:17 AM EDT [facility] TELEPHONE ENCOUNTER Post op call, Pt will call me back he answered and she was at an appointment documented in this encounterFlower Hospital05-07-2025 NoteHNO ID: [id number] Author: KHOA SILVEIRA APRN.CHIEF SUPPLY CHAIN OFFICER Service: ? Author Type: Nurse Practitioner Type: Progress Notes Filed: 12/05/2024 13:10 Note Text: [facility] Clinic Date: [...] - Doxycyline 100 m (more content not included)...[facility]05-07-2025 History of Present illness Narrative* Khoa Silveira APRN.CHIEF SUPPLY CHAIN OFFICER - 12/05/2024 11:02 AM EDT [facility] Clinic Date: December 05, [...] healing and overall progress. Khoa Silveira, MSN, CHIEF SUPPLY CHAIN OFFICER December 05, 2024 * Sudarshan Russell MA [...] No Drains: Yes merced documented in this encounterFlower Hospital05-07-2025 NoteHNO ID: [id number] Author: SUDARSHAN RUSSELL MA Service: ? Author Type: Microcomputer Support Specialist Type: Progress Notes Filed: 12/05/2024 13:10 Note Text: What is the reason for your visit today? Post op Who is your referring physician? Dr. Silveira Are you having poor oral intake? NO Have you had unintentional weight loss of 15 lbs/7 Kg in the last 3-6 months? NO Bowels: constipation Wound: drainage blood Temperature: No Drains: Yes [facility]05-02-2025 NoteHNO ID: [id number] Author: AYSE GRISSOM MD Service: ? Author Type: Physician Type: Progress Notes Filed: 11/30/2024 13:43 Note Text: Metabolic Surgery Postoperative Virtual Clinic Visit Name: Tiffani Allison This visit was performed virtually via [employer] technology due to the COVID-19 epidemic as [...] Laparoscopic AND Bariatric Surgery Bariatric AND Metabolic [facility]-02-2025 History of Present illness Narrative* Ayse Grissom [...] N/A LABS: Ayse Grissom MD Advanced Laparoscopic & Bariatric Surgery Bariatric & Metabolic [facility] documented in this encounterFlower Hospital04-29-2025 NoteHNO ID: [id number] Author: RUPAL PINTO RN Service: Nursing Author Type: Registered Nurse Type: Progress Notes Filed: 11/27/2024 13:09 Note Text: Patient is ready for discharge. AVS was explained to patient with all questions answered. IV was removed per policy. Patient was taken to the lobby by staff in a wheelchair with all belongings.[facility]04-29-2025 NoteHNO ID: [id number] Author: TASHA DE LA GARZA MD Service: General Surgery Author Type: Resident Type: Progress Notes Filed: 11/27/2024 07:17 Note Text: GENERAL SURGERY PROGRESS NOTE Tiffani Allison [id number] ASSESSMENT AND PLAN Tiffani Allison is a [...] La Garza MD PGY5 General Surgery Resident [id number] Patient Active Hospital Problem List: Ventral hernia [...] 18 Gauge 3 days Drain Duration Drain/Tube [facility] Left Upper Quadrant Abdomen Drain #1 -- days Drain/Tube 11/23/24 1604 [facility] Dipak Rodriguez Right Upper Quadrant Abdomen Drain #3 3 days Drain/Tube 11/23/24 1605 [facility] Dipak Rodriguez Left Lower Quadrant Abdomen [...] 150CM OR LESS/ SLEEVE TO BYPASS - [facility]2025 NoteHNO ID: [id number] Author: TRINIDAD MAGAÑA RN Service: Care Management Author Type: Registered Nurse Type: Care Mgt Initial Assessment Filed: 11/26/2024 14:14 Note Text: CARE MANAGEMENT: ASSESSMENT AND DISCHARGE PLAN SERVICE DATE: November 26, 2024 SERVICE TIME: 2:13 PM PCP: Elisabeth Beckman NP Primary Contact: Extended Emergency Contact Information Primary Emergency Contact: Jesus Allison Address: [address] [place] [address] Mobile Relation: Spouse Secondary Emergency Contact: Martha Esteban [facility] Mobile Relation: Mother Admission Status: Inpatient Insurance Provider: SARAH POS Discharge Planning requested by: Per Department Practice Potential Transition Plans No Services Indicated Advance Directives Current Advance Directive: None Elevator Erector Helper Attempted to Assist with AD Completion: Yes [...] Be able to go home, General wellness [place] Choice Explained: [place] Given: No Reason Not Given: [...] Allison DATE: November 26, 2024 TIME: 2:13 [facility]04-28-2025 NoteHNO ID: [id number] Author: TASHA DE LA GARZA MD Service: General Surgery Author Type: Resident Type: Progress Notes Filed: 11/26/2024 07:26 Note Text: GENERAL SURGERY PROGRESS NOTE Tiffani Allison [id number] ASSESSMENT AND PLAN Tiffani Allison is a [...] diet. Off ketamine drip PLAN: -wean off TESTING MANAGER tolday -Bariatric stage diet -Continue DVT ppx -IS, OOB -Maintain MERCED drains -Tentatively home tomorrow Tasha De La Garza MD PGY5 General Surgery Resident [id number] Patient Active Hospital Problem List: Ventral hernia [...] Forearm 20 Gauge 3 days Peripheral 11/23/24 [facility] Short Right Wrist 18 Gauge 3 days Peripheral 11/23/24 1537 Right Hand 18 Gauge 2 days Drain Duration Drain/Tube [facility] Left Upper Quadrant Abdomen Drain #1 -- days Drain/Tube 11/23/24 1604 [facility] Dipak Rodriguez Right Upper Quadrant Abdomen Drain #3 2 days Drain/Tube 11/23/24 1605 [facility] Dipak Rodriguez Left Lower Quadrant Abdomen Drain #2 2 days SURGERY/PROCEDURE: Procedure(s) and Anesthesia Type: Panel 1: * HERNIORRHAPHY INCISIONAL ABDOMINAL RECURRENT REDUCIBLE GREATER THAN 10cm - General Panel 2: * LAPAROSCOPIC RPR PARAESOPHAGEAL HERNIA W/O FUNDOPLASTY W/ MESH - General * LAPAROSCOPIC GASTRIC RESTRICTIVE SURG W/ BYPASS AND MARIA ANTONIA-EN-Y 150CM OR LESS/ SLEEVE TO BYPASS - [facility]2025 NoteHNO ID: [id number] Author: TUAN MORSE MD Service: General Surgery Author Type: Resident Type: Progress Notes Filed: 11/25/2024 10:29 Note Text: GENERAL SURGERY PROGRESS NOTE Tiffani Allison [id number] ASSESSMENT AND PLAN Tiffani Allison is a [...] until Hgb stable on recheck. [facility] Will engage APMS for assistance in management of postoperative pain. Ketamine GTT, TESTING MANAGER. - potassium elevated on AM labs, rechecking - Ambulate, PT/OT - Incentive spirometry. Wean supplemental O2 as able - Diet progression per bariatric surgery. Phase II liquids - OK for VTE chemoprophylaxis - Continue [facility] care Dispo: [facility] Patient discussed with Dr. Oliva Morse MD [...] Forearm 20 Gauge 2 days Peripheral 11/23/24 [facility] Short Right Wrist 18 Gauge 2 days Peripheral 11/23/24 1537 Right Hand 18 Gauge 1 day Drain Duration Drain/Tube [facility] Left Upper Quadrant Abdomen Drain #1 -- days Drain/Tube 11/23/24 1604 [facility] Dipak Rodriguez Right Upper Quadrant Abdomen Drain #3 1 day Drain/Tube 11/23/24 1605 [facility] Dipak [place] Left Lower Quadrant Abdomen Drain #2 1 day SURGERY/PROCEDURE: Procedure(s) and Anesthesia Type: Panel 1: * HERNIORRHAPHY INCISIONAL ABDOMINAL RECURRENT REDUCIBLE GREATER THAN 10cm - General Panel 2: * LAPAROSCOPIC RPR PARAESOPHAGEAL HERNIA W/O FUNDOPLASTY W/ MESH - General * LAPAROSCOPIC GASTRIC RESTRICTIVE SURG W/ BYPASS AND MARIA ANTONIA-EN-Y 150CM OR LESS/ SLEEVE TO BYPASS - [facility]2025 NoteHNO ID: [id number] Author: TUAN MORSE MD Service: General Surgery Author Type: Resident Type: Progress Notes Filed: 11/24/2024 11:01 Note Text: GENERAL SURGERY PROGRESS NOTE Tiffani Allison [id number] ASSESSMENT AND PLAN Tiffani Allison is a [...] VTE ppx per bariatric service. [facility] Will engage APMS for assistance in management [...] Forearm 20 Gauge 1 day Peripheral 11/23/24 [facility] Short Right Wrist 18 Gauge 1 day Peripheral 11/23/24 1537 Right Hand 18 Gauge <1 day Drain Duration Drain/Tube Dipak Rodriguez Left Upper Quadrant Abdomen Drain #1 -- days Indwelling Urinary Catheter 11/23/24 0810 [facility] 3-way Catheter 18 Fr 1 day Drain/Tube 11/23/24 1604 [facility] Dipak Rodriguez Right Upper Quadrant Abdomen Drain #3 <1 day Drain/Tube 11/23/24 1605 [facility] Dipak Rodriguez Left Lower Quadrant Abdomen Drain #2 <1 day SURGERY/PROCEDURE: Procedure(s) and Anesthesia Type: Panel 1: * HERNIORRHAPHY INCISIONAL ABDOMINAL RECURRENT REDUCIBLE GREATER THAN 10cm - General Panel 2: * LAPAROSCOPIC RPR PARAESOPHAGEAL HERNIA W/O FUNDOPLASTY W/ MESH - General * LAPAROSCOPIC GASTRIC RESTRICTIVE SURG W/ BYPASS AND MARIA ANTONIA-EN-Y 150CM OR LESS/ SLEEVE TO BYPASS - [facility]Cl[facility] [facility]25 NoteHNO ID: [id number] Author: JACQUIE HARRIS APRN.EDGE BEADER Service: ? Author Type: Nurse Underwriting Operations Manager Type: Anesthesia Procedure Notes Filed: 11/23/2024 15:55 Note Text: ANESTHESIOLOGY PROCEDURE NOTE PIV General Information Procedure Start Time/Medication Administration: 11/23/2024 3:37 PM Procedure End Time: 11/23/2024 3:37 PM Patient Location: OR Staffing Anesthesiologist: Delores Roque MD EDGE BEADER: Jacquie Harris APRN.EDGE BEADER Performed by: EDGE BEADER Preparation Sterility Preparation: hand hygiene performed prior to procedure, surgical cap used, mask used, skin prep agent completely dried prior to procedure Site Prep: alcohol Procedure Details Indication: need for IV access Needle Size/Type: 18 gauge angiocath Orientation: Right Location: Hand Imaging Guidance Used: No SIGNATURE: Jacquie Harris APRN.EDGE BEADER PATIENT NAME: Tiffani Allison DATE: November 23, 2024 TIME: 3:37 PM CSN: [id number]25 NoteHNO ID: [id number] Author: MARLENE LINK APRN.EDGE BEADER Service: ? Author Type: Nurse Underwriting Operations Manager Type: Anesthesia Procedure Notes Filed: 11/23/2024 09:28 Note Text: ANESTHESIOLOGY PROCEDURE NOTE Airway General Information Procedure Start Time/Medication Administration: 11/23/2024 7:56 AM Procedure End Time: 11/23/2024 8:00 AM Patient location during procedure: OR Timeout Performed Pre-procedure: timeout performed Patient identity confirmed: arm band, care service team leader and patient Staffing Anesthesiologist: Delores Roque MD EDGE BEADER: Marlene Link APRN.EDGE BEADER Performed by: EDGE BEADER Indications and Patient Condition Indications for airway [...] no Airway not difficult SIGNATURE: Marlene Link APRN.EDGE BEADER PATIENT NAME: Tiffani Allison DATE: November 23, 2024 TIME: 9:27 AM CSN: [id number] [facility]04-11-[facility]25 Telephone encounter Note* Telephone Encounter - Kristi Watts RN - 11/09/2024 1:08 PM EDT [facility] SURGERY APPROVAL CALL Received e-mail confirmation of insurance approval for bariatric surgery.Pre- operative call placed to the patient, this RN spoke with patient and agreed upon a surgery date of November 23 2024. Surgicalepisode request sent to [facility] surgery scheduling. Patient understands that the surgery type is Gastric Bypass as approved by insurance. Creatinine level 0.67 Patient instructed to start pre-op 800 calorie total protein liquid diet Atkins (5) daily beginning2 weeks prior to surgery. - Stop all ASA and NSAID products, [place] 3 fish oil, herbal products such as [...] - Ale video assigned. - Introduced Bariatric cruise director Yes - All questions and concerns addressed and patient verbalized understanding. - Patient case reviewed. All nutrition appointments completed, psychology clearance obtained, surgeon visit and procedure type verified, medical optimization obtained and all testing complete. Does patient have Con ABO? Yes, patient has Con ABO. [facility] - a research program mentioned [...] via My Chart: Yes Kristi Watts RN [facility]04-11-2025 Miscellaneous Notes* Telephone Encounter - Kristi Watts RN - 11/09/2024 1:08 PM EDT [facility] SURGERY APPROVAL CALL Received e-mail confirmation of insurance approval for bariatric surgery.Pre- operative call placed to the patient, this RN spoke with patient and agreed upon a surgery date of November 23 2024. Surgicalepisode request sent to [facility] surgery scheduling. Patient understands that the surgery type is Gastric Bypass as approved by insurance. Creatinine level 0.67 Patient instructed to start pre-op 800 calorie total protein liquid diet Atkins (5) daily beginning2 weeks prior to surgery. - Stop all ASA and NSAID products, [place] 3 fish oil, herbal products such as [...] - Ale video assigned. - Introduced Bariatric cruise director Yes - All questions and concerns addressed and patient verbalized understanding. - Patient case reviewed. All nutrition appointments completed, psychology clearance obtained, surgeon visit and procedure type verified, medical optimization obtained and all testing complete. Does patient have Con ABO? Yes, patient has Con ABO. [facility] - a research program mentioned [...] Yes Kristi Watts RN documented in this encounterFlower Hospital04-08-2025 NoteHNO ID: [id number] Author: REINALDO MENDOZA, PhD Service: ? Author Type: Psychologist Type: Progress Notes Filed: 11/06/2024 16:26 Note Text: [facility] [place] Name: Tiffani Allison MR#: [id number] Date: 11/06/2024 Time: 1 hour Referred by: [...] she could be seen again. Reinaldo Webb, Ph.D.[facility]04-08-2025 History of Present illness Narrative* Reinaldo Mendoza, PhD - 11/06/2024 4:23 PM EDT [facility] [place] Name: Tiffani Allison MR#: [id number] Date: 11/06/2024 Time: 1 hour Referred by: [...] again. Reinaldo Webb, Ph.D. documented in this encounterFlower Hospital04-08-2025 Instructions* Patient Instructions* Bela Banegas PA-C - 11/06/2024 10:48 AM EDT Images from the original note were not included. [facility] PATIENT PREOPERATIVE INSTRUCTIONS Khoa Silveira APRN.C* has scheduled you for your procedure at this surgery center: * No surgery found * [facility] [place] [facility] Scheduling Office: [phone] --[address] [place] [address]. Please read below carefully for your personalized [...] office. If you are currently using a vaju-agn-lkbx injectable or oral medication for diabetes or [...] please check with your dialysis center or aircraft cleaner to see if any adjustments need to [...] Procedures: - YOU MUST HAVE A RESPONSIBLE PICKLE MAKER TAKE YOU HOME. A RESTRICTIVE PREPARATION OPERATOR OR ROSE GROWER CANNOT BE MADE A RESPONSIBLE PICKLE MAKER. - We recommend that a responsible person [...] call the Tuesday before. Your surgeon s nick setter will tell you what time to call the office. - If you have not reached the departmental nick setter by 5 P.M., call [phone] after 5 P.M. the day before your surgery. Please be aware that emergency situations arise, which may delay or change your surgical time. If this happens, we will notify you as soon as possible and regret any inconvenience. If you already have an Advance Directive, please fax a copy to [phone] or email to for it to be [...] day. Bela Banegas PA-C documented in this encounterFlower Hospital04-08-2025 History and physical note * Bela Banegas [...] fevers. Neurological: No history of TIA's, stroke, OPERATING ROOM MANAGER tumor, impaired sensorium, hemiplegia, paraplegia orquadraplegia. No neurological symptoms or problems. Respiratory: No history of current cough or dyspnea, or pneumonia in the past 6 weeks. No history of respiratory/pulmonary symptoms or problems. Cardiovascular: No history of HTN requiring medication, no history of angina, CHF, [place], cardiac surgery or stents. Denies rest pain, [...] 406 QTC Calculation (Bazett) 453 Calculated P [place] 39 Calculated R [place] 40 Calculated T [place] 40 Impression NORMAL SINUS RHYTHM NORMAL ECG No results found for this or any previous visit (from the past 61552 hours). Spirometry Data No data to display Instructions Given to Patient: Instructions located in the after visit summary. Patient given verbal and written preop instructions and voices comprehension and compliance. SIGNATURE: Bela Banegas PA-C PATIENT NAME: Tiffani Allison DATE: 11/06/2024 TIME: 10:42 AM [facility]04-08-2025 History and physical note* Bela Banegas PA-C - 11/06/2024 10:21 AM EDT Images from the original note were not included. [facility] Pre-Anesthesia Consultation Clinic HISTORY [...] fevers. Neurological: No history of TIA's, stroke, OPERATING ROOM MANAGER tumor, impaired sensorium, hemiplegia, paraplegia orquadraplegia. No neurological symptoms or problems. Respiratory: No history of current cough or dyspnea, or pneumonia in the past 6 weeks. No history of respiratory/pulmonary symptoms or problems. Cardiovascular: No history of HTN requiring medication, no history of angina, CHF, [place], cardiac surgery or stents. Denies rest pain, [...] 406 QTC Calculation (Bazett) 453 Calculated P [place] 39 Calculated R [place] 40 Calculated T [place] 40 Impression NORMAL SINUS RHYTHM NORMAL ECG No results found for this or any previous visit (from the past 34430 hours). Spirometry Data No data to display Instructions Given to Patient: Instructions located in the after visit summary. Patient given verbal and written preop instructions and voices comprehension and compliance. SIGNATURE: Bela Banegas PA-C PATIENT NAME: Tiffani Allison DATE: 11/06/2024 TIME: 10:42 AM documented in this encounterFlower Hospital04-03-2025 History of Present illness Narrative* Ran [...] (gastroesophageal reflux disease) Hiatal hernia HTN (hypertension) ([facility]) Hypothyroidism (acquired) ([facility]) Iron deficiency anemia Kidney stones Lumbosacral disc disease Migraines ([facility]) Polycystic ovary syndrome 2010 Seizure ([facility]) 2019 hx of hospitalization Tear of meniscus [...] Insecurity: No Food Insecurity (09/22/2023) Received from [employer], [facility] Hunger Screening Within the past 12 months [...] EMR Ran Osullivan DPM documented in this encounterSaint John's Health SystemKgtgemouqq08-10-6584 History of Present illness Narrative* Ran Osullivan [...] Hiatal hernia HTN (hypertension) (CMS/HCC) Hypothyroidism (acquired) (CMS/[facility]) Iron deficiency anemia Kidney stones Lumbosacral disc disease Migraines (CMS/HCC) Polycystic ovary syndrome 2010 Seizure (CMS/[facility]) 2019 hx of hospitalization Tear of meniscus [...] Insecurity: No Food Insecurity (09/22/2023) [facility] [employer] Hunger Screening Within the past 12 [...] Ibuprofen Ran Osullivan DPM documented in this encounterSaint John's Health SystemEiyhcfvfcz06-37-8991 Telephone encounter Note* Telephone Encounter - Kristi Watts RN - 09/12/2024 12:54 PM EST [facility] COORD[facility]ATION TELEPHONE ENCOUNTER I spoke to pt about what is needed (EKG and LABS) to submit to insurance.Pt is working on that today. [facility]02-12-2025 Miscellaneous Notes* Telephone Encounter - Kristi Watts RN - 09/12/2024 12:54 PM EST [facility] COORD[facility] TELEPHONE ENCOUNTER I spoke to pt about what is needed (EKG and LABS) to submit to insurance.Pt is working on that today. documented in this encounterFlower Hospital02-03-2025 History of Present illness Narrative* Ran [...] (gastroesophageal reflux disease) Hiatal hernia HTN (hypertension) ([facility]) Hypothyroidism (acquired) ([facility]) Iron deficiency anemia Kidney stones Lumbosacral disc disease Migraines ([facility]) Polycystic ovary syndrome 2009 Seizure ([facility]) 2019 hx of hospitalization Tear of meniscus [...] Insecurity: No Food Insecurity (09/22/2023) Received from [employer], [facility] Hunger Screening Within the past 12 months [...] injection Ran Osullivan DPM documented in this encounterSaint John's Health SystemPaizztlidg40-20-5311 NoteHNO ID: [id number] Author: CHADWICK HELM, PhD Service: ? Author Type: Psychologist Type: Progress Notes Filed: 08/24/2024 12:09 Note Text: [facility] Psychology- documentation Fax message received from NI Kim, pt's CEMENT FINISHER HELPER at [facility]. Pt diagnosed with Anxiety Disorder, unspecified (F41.9). [...] as outlined above. Chadwick Helm, Ph.D., Clinical PsychologistClinton Memorial Hospital01-17-2025 History of Present illness Narrative* REMY [...] to your cam boot. documented in this encounterSaint John's Health SystemUuxputuoqe35-69-9670 Instructions* Patient Instructions* REMY Feliz - 08/17/2024 [...] to your cam boot. documented in this encounterSaint John's Health SystemHjzunauqxz19-65-1416 NoteHNO ID: [id number] Author: ?, ?, ? Service: ? Author Type: ? Type: Progress Notes Filed: 08/03/2024 14:49 Note Text: Sleep Study Check-In Documentation Date: August 03, 2024 Name: Tiffani Allison Comments: HST was returned in working order with all sleep questionnaires [facility]all[facility]bethA[facility]12-26-2024 NoteHNO ID: [id number] Author: ?, ?, ? Service: ? Author Type: ? Type: Progress Notes Filed: 07/27/2024 15:50 Note Text: Nomad # [id number] , date shipped out 07-27-24 Fed Ex only Tracking mailout: [id number] Tracking return: [id number]12-10-2024 History of Present illness Narrative* REMY [...] with good arch support. documented in this [facility]12-10-2024 Instructions* Patient Instructions* REMY Feliz - [...] with good arch support. documented in this [facility]12-10-2024 NoteHNO ID: [id number] Author: ?, ?, ? Service: ? Author Type: ? Type: Progress Notes Filed: 07/10/2024 09:42 Note Text: Sleep Study Check-In Documentation Date: July 10, 2024 Name: Tiffani Allison Comments: HST was returned in work order. Study did not occur. The device is blank. Sent MYC Message. Monty MendezClinton Memorial Hospital12-10-2024 History of Present illness Narrative* Monty [...] - 07/02/2024 1:59 PM EST Nomad # [id number] , +GPS Date shipped out: 07/02/24 SENT FEDEX DELIVERY - FEDEX RETURN Tracking mailout: [id number] Tracking return: [phone] [id number] * Dany Mancini III, PhD - 07/02/2024 9:44 AM EST July 02, 2024 Standing PSG Orders signed in the last 90 days None Future PSG Orders signed in the last 90 days Ordered Auth. provider HOME SLEEP APNEA TEST (HSAT) [[id number]] 05/24/24 Renetta Ruano MD Assoc. diagnoses: Morbid [...] No CONSULT TO SLEEP MEDICINE - ADULT [[id number]] 05/24/24 Renetta Ruano MD Assoc. diagnoses: Morbid [...] from Renetta Goldberg MD , a B. [facility] Staff. Visit prep complete. Comments :No The sleep study is scheduled for 07-03-24. Insurance: Payor: / Plan: [facility] / Product Type: Indemnity / Payer/Plan Subscr Sex Relation Sub. Ins. ID Effective Group Num 1. - TR* TIFFANI ALLISON 1985 Female Self [id number] 08/[birth year]/23 [address] Margo Liao documented in this encounterFlower Hospital12-05-2024 NoteHNO ID: [id number] Author: ?, ?, ? Service: ? Author Type: ? Type: Progress Notes Filed: 07/10/2024 09:42 Note Text: Pt stated the device didn't work. Informed patient to send device back and we will call reschedule.[facility]12-02-2024 NoteHNO ID: [id number] Author: ?, ?, ? Service: ? Author Type: ? Type: Progress Notes Filed: 07/10/2024 09:42 Note Text: Nomad # [id number] , +GPS Date shipped out: 07/02/24 SENT FEDEX DELIVERY - FEDEX RETURN Tracking mailout: [id number] Tracking return: [phone]12-02-2024 NoteHNO ID: [id number] Author: DANY MANCINI III, PhD Service: ? Author Type: Physician Type: Progress Notes Filed: 07/10/2024 09:42 Note Text: July 02, 2024 Standing PSG Orders signed in the last 90 days None Future PSG Orders signed in the last 90 days Ordered Auth. provider HOME SLEEP APNEA TEST (HSAT) [[id number]] 05/24/24 Renetta Ruano MD Assoc. diagnoses: Morbid [...] No CONSULT TO SLEEP MEDICINE - ADULT [[id number]] 05/24/24 Renetta Ruano MD Assoc. diagnoses: Morbid [...] plan. Dany Mancini III, PhD 1:38 PM, 07/02/2024[facility]11-29-2024 NoteHNO ID: [id number] Author: ?, ?, ? Service: ? Author Type: ? Type: Progress Notes Filed: 07/10/2024 09:42 Note Text: June 29, 2024 An order has been received for Home Sleep Apnea Test (HSAT) from Renetta Goldberg MD , a B[facility] Staff. Visit prep complete. Comments :No The sleep study is scheduled for 07-03-24. Insurance: Payor: [employer] / Plan: [employer] [facility] / Product Type: Indemnity / Payer/Plan Subscr Sex Relation Sub. Ins. ID Effective Group Num 1. - TR* TIFFANI ALLISON 1985 Female Self [id number] [birth year]23 [address] [facility]inaSalem [facility]11-21-2024 NoteHNO ID: [id number] Author: CHADWICK HELM, PhD Service: ? Author Type: Psychologist Type: Progress Notes Filed: 06/21/2024 14:47 Note Text: [facility] METABOLIC/BARIATRIC SURGERY (MBS) BEHAVIORAL HEALTH EVALUATION Patient name: Tiffani Allison Date of service: June 21, 2024 Time of service: 1:00pm - 2:00pm Cost center: 3BO CPT code(s): 52745 Psychiatric diagnostic evaluation - 17372 Brief Emotional/Behavioral Assessment with scoring/documentation (2 units) [...] a copy of the consent form via MeeGenius. Prior to initiating the virtual visit, I communicated my name and active licensure. The patient's identity (name, ) and physical location were verified. Patient was encouraged to move to a private space free of distractions. Either the patient or their legal sales representative sales manager has been informed of the risks and [...] contact patient at their preferred phone number ([phone]) or via email ([email or web address]). Plan in case of emergency: Go to emergency room or call 911 Closest emergency room: [facility] Extended Emergency Contact Information Primary Emergency Contact: Jesus Allison Address: [address] [place] [address] Mobile Relation: Spouse Platform: [employer] for [employer] Address of patient during visit: home ([address] [place] [address]) Collateral parties present: none IDENTIFYING INFORMATION Ms. Tiffani Allison is a 38 year old, female who was referred by Dr. Grissom. She is seeking revision (sleeve to bypass) for Class III obesity and hiatal hernia. Initial gastric sleeve surgery in July 2017 (in [place]). MOTIVATION FOR SURGERY / UNDERSTANDING OF PROCEDURE [...] MEALS melatonin 1 m (more content not included)...[facility]11-20-2024 History of Present illness Narrative* REMY [...] she did go get imaging done at [place] and has brought thoseimages with her. She does take a baby aspirin a day she states that she does not have history of DVT but is concerned with the right lower calf swelling and pain with mobility. She denies fever chills shortness of breath or chest pain. She is a pkwo-cm-qyus mom PAST MEDICAL HISTORY: Past Medical History: [...] with food. REMY Feliz documented in this [facility]11-20-2024 Instructions* Patient Instructions* REMY Feliz - [...] always take with food. documented in this [facility]11-19-2024 Evaluation note* Diagnosis Onset Date Resolution Status Admit Date Anxiety acuteNovember 2023 10:02amDepressionacuteNovember 2023 10:02am AnxietyacuteJanuary 2024 10:51amDepressionacuteJanuary 2024 10:51am IFG (impaired fasting glucose)acuteJanuary 2024 10:51amObesity, Class III, BMI 40-49.9 (morbid obesity)acuteJanuary 2024 10:51amAnxietyacuteFebruary 2024 11:18amDepressionacuteFebruary 2024 11:18amIFG (impaired fasting glucose)acuteFebruary 2024 11:18am [facility] Work Phone: [phone] 604-970711-15-2024 NoteHNO ID: [id number] Author: LELO IRENE RT(R) Service: ? Author [...] PATIENT PRESENTS WITH AN IMPLANTABLE OR ATTACHED MATTRESS MAKER: No RADIOLOGY DEPARTMENT: General X-ray: Exam(s) Completed: Chest X-Ray PERIPHERAL IV DATA: Not applicable SIGNED BY: RT Vanna(R) June 15, 2024 12:23 [facility]11-14-2024 NoteHNO ID: [id number] Author: CHADWICK HELM, PhD Service: ? Author Type: Psychologist Type: Progress Notes Filed: 06/14/2024 16:11 Note Text: [facility] Bariatric Behavioral Services Progress Note June 14, 2024 Patient did not check in for scheduled appointment. This visit will be marked as a no-show. Chadwick Helm, Ph.D. Clinical PsychologistClinton Memorial Hospital11-07-2024 Instructions* Patient Instructions* Leah Zuniga, VALENTINO - 06/07/2024 1:53 PM EST Nutrition Intervention 06/07/2024: Modify type and amount of foods consumed for meals and snacks 1. Read Nutritional Guidelines Section of Your Guide to Surgery by next session [email or web address]/-/scassets/[email or web address] n 2. Do not skip meals. 3. [...] (16 g protein), Owyn (20 g protein), [place] Breakfast Essentials Light Start mixed with fat [...] Continue taking daily bariatric vitamins/minerals and include 3022-9617 mg calcium citrate daily(separate 2 hours from iron, and take each 500-600 mg dose 4 hours apart) Here are a few options to consider: - Bariatric Fusion: 4 Complete Multivitamin chewables per day OR 1 Multivitamin capsule and 8505-9975 mg calcium citrate per day OR 2 Multivitamin soft chews per day + 3 calcium citrate soft chews + 1 iron soft chew per day www.bariatricfusion.com - Bariatric Choice: 4 All-in-One Bariatric Multivitamin chewables per day OR 1 Once Daily BariatricMultivitamin capsule and 1638-0989 mg calcium citrate per day www.bariatricchoice.com - Bariatric Pal: 4 All-in-One Multivitamin chewables per day OR 1 Multivitamin One (chewable or capsule) and 1855-7530 mg calcium citrate per day www.Community Fuels.bariatricpal.BrightSource [employer]/collections/bariatric-vitamins - Bariatric Advantage: 1 Ultra Solo multivitamin w/ iron (chewable or capsule) OR 2 chewable Advanced Multi EA w/ iron and 2097-5920 mg calcium citrate per day OR 2 Multi Chewy Bites and 9364-5729 mgcalcium citrate and 45-60 mg iron per day www.bariatricadvantage.com - Procare Health: 1 Bariatric Multivitamin w/ iron (capsule or chewable) and 3527-5115 mg calcium citrate per day www.YouNoodle - Celebrate: 2 Multi-Complete (chewable or capsule) OR 1 CelebrateOne Multivitamin capsule and 2780-8310 mg calcium citrate per day OR 2 Multivitamin soft chews + 3 calcium citrate soft chews + 1 iron soft chew per day https://celebrateFry Multimedias.BrightSource Energy - Barilife: 1 Just One Bariatric Multivitamin w/ iron (chewable or capsule) and 6343-5805 mg calcium citrate per day www.bariHandseeing Information.BrightSource [employer] - Barimelts: 2 Multivitamin w/ iron tablets and 9410-5890 mg calcium citrate per day www.barimelts.BrightSource Energy Pre-op goal weight: 292 pounds Protein needs: 95 gm per day Navigator: [email or web address] Please follow the below link to join our Navigation Welcome and Next Steps Meeting. Meetings are held weekly on Tuesdays from 12:00-1:00 pm. [email or web address] m Please call [phone], option 5. Leave a message for the [...] Control shakes per day 5 packets of [place] Breakfast Essentials Light Start mixed with fat [...] 2 weeks pre op documented in this encounterFlower Hospital11-07-2024 History of Present illness Narrative* Leah Zuniga RD - 06/07/2024 1:15 PM EST [facility] Nutrition Therapy: Virtual Consult - Initial Assessment I have communicated my name and active licensure. The patient s identity and physical location wereverified at the time of this visit. Either the patient or their legal sales representative sales manager has been informed of the risks and [...] Your Guide to Surgery by next session [email or web address].[email or web address] hospital.org/-/scassets/files/org/bariatric/guides/bmiguidebook-[email or web address].ashx?la=e n 2. Do not skip meals. 3. [...] (16 g protein), Owyn (20 g protein), [place] Breakfast Essentials Light Start mixed with fat [...] Continue taking daily bariatric vitamins/minerals and include 1003-3211 mg calcium citrate daily(separate 2 hours from iron, and take each 500-600 mg dose 4 hours apart) Here are a few options to consider: - Bariatric Fusion: 4 Complete Multivitamin chewables per day OR 1 Multivitamin capsule and 9674-8500 mg calcium citrate per day OR 2 Multivitamin soft chews per day + 3 calcium citrate soft chews + 1 iron soft chew per day www.bariatricfusion.com - Bariatric Choice: 4 All-in-One Bariatric Multivitamin chewables per day OR 1 Once Daily BariatricMultivitamin capsule and 6392-5749 mg calcium citrate per day www.bariatricchoice.com - Bariatric Pal: 4 All-in-One Multivitamin chewables per day OR 1 Multivitamin One (chewable or capsule) and 1846-9129 mg calcium citrate per day www.Community Fuels.bariatricpal.com/collections/bariatric-vitamins - Bariatric Advantage: 1 Ultra Solo multivitamin w/ iron (chewable or capsule) OR 2 chewable Advanced Multi EA w/ iron and 9918-8770 mg calcium citrate per day OR 2 Multi Chewy Bites and 5165-8317 mgcalcium citrate and 45-60 mg iron per day www.bariatricadvantage.com - Procare Health: 1 Bariatric Multivitamin w/ iron (capsule or chewable) and 5063-5626 mg calcium citrate per day www.CableMatrix Technologies.BrightSource Energy - Celebrate: 2 Multi-Complete (chewable or capsule) OR 1 CelebrateOne Multivitamin capsule and 3296-3610 mg calcium citrate per day OR 2 Multivitamin soft chews + 3 calcium citrate soft chews + 1 iron soft chew per day https://OpenSesameebrateFry Multimedias.BrightSource Energy - Barilife: 1 Just One Bariatric Multivitamin w/ iron (chewable or capsule) and 3134-0014 mg calcium citrate per day www.bariHandseeing Information.BrightSource Energy - Barimelts: 2 Multivitamin w/ iron tablets and 0401-1688 mg calcium citrate per day www.barimelts.BrightSource Energy Pre-op goal weight: 292 pounds Protein needs: 95 gm per day Navigator: [email or web address] Please follow the below link to join our Navigation Welcome and Next Steps Meeting. Meetings are held weekly on Tuesdays from 12:00-1:00 pm. [email or web address] m Please call [phone], option 5. Leave a message for the [...] Control shakes per day 5 packets of [place]hope Breakfast Essentials Light Start mixed with fat [...] exercise - limited by large hernia. ? [place] body weight: 174 lbs Excess body weight: [...] 2024 TIME: 4:01 PM documented in [facility]11-[facility]-2024 NoteHNO ID: [id number] Author: LEAH ZUNIGA RD Service: ? Author Type: Registered Dietitian Type: Progress Notes Filed: 06/07/2024 13:53 Note Text: [facility] Nutrition Therapy: Virtual Consult - Initial Assessment I have communicated my name and active licensure. The patient?s identity and physical location were verified at the time of this visit. Either the patient or their legal sales representative sales manager has been informed of the risks and [...] of Your Guide to Surgery by next sessionhttps://my.[email or web address]/-/scassets/files/org/bariatric/guides/bmig uidebook-[email or web address]?la=en 2. Do not skip [...] (16 g protein), Owyn (20 g protein), [place] Breakfast Essentials Light Start mixed with fat [...] Continue taking daily bariatric vitamins/minerals and include 7601-4615 mg calcium citrate daily (separate 2 hours from iron, and take each 500-600 mg dose 4 hours apart) Here are a few options to consider: - Bariatric Fusion: 4 Complete Multivitamin chewables per day OR 1 Multivitamin capsule and 6716-1827 mg calcium citrate per day OR 2 Multivitamin soft chews per day + 3 calcium citrate soft chews + 1 iron soft chew per day www.bariatricfusion.com - Bariatric Choice: 4 All-in-One Bariatric Multivitamin chewables per day OR 1 Once Daily Bariatric Multivitamin capsule and 1090-0250 mg calcium citrate per day www.bariatricchoice.com - Bariatric Pal: 4 All-in-One Multivitamin chewables per day OR 1 Multivitamin One (chewable or capsule) and 4093-6028 mg calcium citrate per day www.Community Fuels.bariatricpal.com/collections/bariatric-vitamins - Bariatric Advantage: 1 Ultra Solo multivitamin w/ iron (chewable or capsule) OR 2 chewable Advanced Multi EA w/ iron and 5234-5959 mg calcium citrate per day OR 2 Multi Chewy Bites and 5395-8915 mg calcium citrate and 45-60 mg iron per day www.bariatricadvantage.BrightSource Energy - Procare Health: 1 Bariatric Multivitamin w/ iron (capsule or chewable) and 9504-0148 mg calcium citrate per day www.YouNoodle - Celebrate: 2 Multi-Complete (chewable or capsule) OR 1 CelebrateOne Multivitamin capsule and 2412-6440 mg calcium citrate per day OR 2 Multivitamin soft chews + 3 calcium citrate soft chews + 1 iron soft chew per day https://Allmyappss.BrightSource Energy - Barilife: 1 Just One Bariatric Multivitamin w/ iron (chewable or capsule) and 1321-8037 mg calcium citrate per day www.bariHandseeing Information.com - Barimelts: 2 Multivitamin w/ iron tablets and 8975-2656 mg calcium citrate per day www.barimelts.com Pre-op goal weight: 292 pounds Protein needs: 95 gm per day Navigator: [email or web address] Please follow the below link to join our Navigation Welcome and Next Steps Meeting. Meetings are held weekly on Tuesdays from 12:00-1:00 pm. [email or web address] m Please call [phone], option 5. Leave a message for the navigation team when you are finished with all clearances (nutrition, psychology, medical, surgeon) PRE/POST-OP Instructions: 1. Start the full (more content not included)...[facility] 05-24-2024 Instructions* Patient Instructions* Renetta Ruano MD - 05/24/2024 2:27 PM EDT INSTRUCTIONS: 1) Please contact me (Dr. Ruano) if you have not heard about your test results within a few days after you had them done. Thank you: Contact information: Bariatric and Metabolic [facility] M61/Attention: Dr. Ruano [address] [place] [address] 2) Please check with your insurance company regarding cost/coverage of any tests ordered prior to having them completed. Jacquelin Allison , Thank you for completing your visit today and we welcome you to the surgical program. We are sure that you will still have some additional questions and encourage you to reach out to your care provider via Zoodak OR your Patient Navigator. The contact information for each Navigator is listed below: Bipin Muñoz and Talia: [email or web address] Bipin Hatch, Shakila, and Hong: [email or web address] Bhupendra Santos, Wilmer, and Pedro: [email or web address] Tyrell Pena, and Javier: Delores Ramos [email or web address] Additionally, you may find many [...] free to ask for a hard copy. https://my.[email or web address]/-/scassets/files/org/bariatric/guides/bmiguideboo k-[email or web address]?la=en Once you complete all of the requirements (testing, consultations, diet, etc) from each provider, please call [phone] and select option #5 to initiate insurance approval. Also, if you have any questions along the way, we encourage you to join our weekly Navigation webinar every Tuesday from 12:00 pm - 1:00 pm. This webinar will give you an opportunity to chat with your patient navigator and learn about your specific program requirements. The link for this webinar isbelow: [email or web address] Please note scheduling information It is important to keep track of your scheduled appointments to ensure successful completion of oursurgical program. Any missed appointments can further delay your pre-surgical work-up. [facility] does offer an opt-in option for getting text message appointment reminders. Please follow the link below if you would like to opt into this service. [email or web address].[email or web address]#appoin [email or web address] As part of your surgical work up, [...] tests. You may call your local [facility] to get an appointment. - Lab work- No appointment is needed for this, you may complete at any [facility].These are usually fasting labs, please be sure to fast (only water permitted) for 10-12 hours priorto the test. -Sleep Study- Please call [phone] or [phone] to get this appointment set up. -Sleep Medicine Consult- (Only needed if sleep study confirms sleep apnea) Please call [phone] [phone] to schedule an appointment. Any testing that is completed outside of [facility] will need faxed to [phone]. We look forward to working with you on this journey, Renetta Ruano MD documented in this encounterFlower Hospital10-24-2024 History of Present illness Narrative* Renetta Ruano MD - 05/24/2024 2:15 PM EDT I have communicated my name and active licensure. The patient's identity and physical location wereverified at the time of this visit. 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 -tobacco use: non-smoker ALL: See [facility] LABS: IMAGING: PROC: CARDIAC: MEDS: See [facility] PMH: -htn-Norvasc, Metoprolol -on Aspirin during [...] cardiac, valvular or vascular issues *no h/o [place], CHF, +htn and inappropriate sinus tachycardia (this [...] which included preparing to see the patient, ugxl-up-wckk patient care, completing clinical documentation, obtaining and/or reviewing separately obtained history, counseling and educating the patient/family/caregiver, ordering medications, marleny ts, or procedures, and care coordination (not separately reported). documented in this encounterFlower Hospital10-24-2024 NoteHNO ID: [id number] Author: RENETTA RUANO MD Service: ? Author Type: Physician Type: Progress Notes Filed: 09/21/2024 09:27 Note Text: I have communicated my name and active licensure. The patient's identity and physical location were verified at the time of this visit. 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 [facility]10-24-2024 Evaluation note* Diagnosis Onset Date Resolution Status Admit Date Anxiety acuteOctober 2023 9:57amDepressionacuteOctober 2023 9:57amRight ankle injuryacuteOctober 2023 9:57amRight ankle painacuteOctober 2023 9:57amAnxietyacuteNovember 2023 10:02amDepressionacuteNovember 2023 10:02amAnxietyacuteJanuary 2024 10:51amDepressionacuteJanuary 2024 10:51amObesity, Class III, BMI 40-49.9 (morbid obesity)acuteJanuary 2024 10:51[facility] Work Phone: [phone] Telephone encounter Note* Telephone Encounter - Kristi Watts RN - 05/17/2024 10:14 AM EDT BMI SPECIALTY CARE COORDINATION TELEPHONE ENCOUNTER LVM with call back number to tell pt next steps about enrolling in our program. [facility]10-17-2024 Miscellaneous Notes* Telephone Encounter - Kristi Watts RN - 05/17/2024 10:14 AM EDT BMI SPECIALTY CARE COORDINATION TELEPHONE ENCOUNTER LVM with call back number to tell pt next steps about enrolling in our program. documented in this encounterFlower Hospital10-14-2024 NoteHNO ID: [id number] Author: AYSE GRISSOM MD Service: ? Author [...] TAR, versus TAR only and consideration for mehgtr-qa-lfzrzl conversion later down the line. She will consider her options and let us know. SIGNATURE: Ayse Grissom MD PATIENT NAME: Tiffani Allison [facility] Laparoscopic [facility] Bariatric Surgery DATE: May 14, 2024 CSN: [id number] TIME: 2:48 PM 10min spent with patient.[facility]10-14-2024 History of Present illness Narrative* Ayse Grissom [...] TAR, versus TAR only and consideration for ncwujl-yy-wadxap conversion later down the line. She will consider her options and let us know. SIGNATURE: Ayse Grissom MD PATIENT NAME: Tiffani Allison Advanced Laparoscopic [facility] Bariatric Surgery DATE: May 14, 2024 CSN: [id number] TIME: 2:48 PM 10min spent with patient. documented in this encounterFlower Hospital10-10-2024 Evaluation note* Diagnosis Onset Date Resolution Status Admit Date HTN (hypertension) acuteOctober 2023 10:43amInappropriate sinus tachycardiaacuteOctober 2023 10:43amPalpitationsnoneactiveOctober 2023 10:43amAnxietyacuteOctober 2023 9:57amDepressionacuteOctober 2023 9:57amRight ankle injuryacute May 24, 2024 9:57amRight ankle painacuteOctober 2023 9:57amAnxiety acuteNovember 2023 10:02amDepressionacuteNovember 2023 10:02am [facility] Work Phone: 1(459) 529-312209-24-2024 NoteHNO ID: [id number] Author: AYSE GRISSOM MD Service: ? Author [...] 1 tablet by mouth (more content not included)...[facility]09-24-2024 History of Present illness Narrative* Ayse Grissom [...] 2009, 2021, 2023 Tubal ligation 2023 Lap orcío 2006 Sleeve gastrectomy 2016 Heartburn/reflux: Daily symptoms [...] snoring/EARNEST Cardiovascular: + HTN, no CHF or [place]. GI: +Abdominal pain in middle of lower [...] Level: 5 - High documented in this encounterFlower Hospital09-18-2024 Telephone encounter Note * Telephone Encounter - Kristi Watts RN - 04/18/2024 10:17 AM EDT BMI SPECIALTY CARE COORDINATION TELEPHONE ENCOUNTER LVM with call back number for pt to make an appt with Dr. Grissom. [facility]09-18-2024 Miscellaneous Notes* Telephone Encounter - Kristi Watts RN - 04/18/2024 10:17 AM EDT [facility] SPECIALTY CARE COORDINATION TELEPHONE ENCOUNTER LVM with call back number for pt to make an appt with Dr. rGissom. documented in this encounterFlower Hospital09-16-2024 NoteHNO ID: [id number] Author: ROCIO JEFF MD Service: ? Author [...] Rocio Jeff MD April 16, 2024 4:02 [facility]09-16-2024 History of Present illness Narrative * Rocio [...] Ran Padron - 04/16/2024 3:50 PM EDT [facility] Abdominal [facility] - HISTORY AND PHYSICAL Chief Complaint: [...] repair Ran Padron MS4 documented in this encounterFlower Hospital09-16-2024 NoteHNO ID: [id number] Author: ?, ?, ? Service: ? Author Type: ? Type: Progress Notes Filed: 04/23/2024 08:59 Note Text: [facility] Abdominal [facility] - HISTORY AND PHYSICAL Chief Complaint: [...] noted Assessment: Tiffani [place] (more content not included)...[facility]09-16-2024 Nurse Note* Sudarshan Russell MA - 04/16/2024 2:36 PM EDT What is the reason for your visit today? Consult Who is your referring physician? Dr. Jeff Are you having poor oral intake? NO Have you had unintentional weight loss of 15 lbs/7 Kg in the last 3-6 months? NO Bowels: regular Wound: clean & dry Temperature: No Drains: No [facility]09-16-2024 Nurse Note* Sudarshan Russell MA - 04/16/2024 2:36 PM EDT What is the reason for your visit today? Consult Who is your referring physician? Dr. Jeff Are you having poor oral intake? NO Have you had unintentional weight loss of 15 lbs/7 Kg in the last 3-6 months? NO Bowels: regular Wound: clean & dry Temperature: No Drains: No documented in this encounterFlower Hospital09-11-2024 Telephone encounter Note * Telephone Encounter - Javier Kitchen LPN - 04/11/2024 4:03 PM EDT Contacted patient, verified name and . Advised of the following Abdominal Surgeries performed and patient had Imaging performed from [facility] 03/29/24 and to bring Imaging with her to appointment. 2018--Gastric Bypass ( [facility], [place]) 2017--Appendectomy ([place], [place]; [facility]) Advised patient will contact to obtain Operative Reports and patient to be sent MyChart Message to contact if any needs or concerns arise, patient acknowledged and verbalized understanding. Javier Kitchen LPN [facility]09-11-2024 Miscellaneous Notes* Telephone Encounter - Javier Kitchen LPN - 04/11/2024 4:03 PM EDT Contacted patient, verified name and . Advised of the following Abdominal Surgeries performed and patient had Imaging performed from [facility] 03/29/24 and to bring Imaging with her to appointment. 2018--Gastric Bypass ( [facility], [place]) 2017--Appendectomy ([place], [place]; [facility]) Advised patient will contact to obtain Operative Reports and patient to be sent Clean Runnerhart Message to contact if any needs or concerns arise, patient acknowledged and verbalized understanding. Javier Kitchen LPN documented in this encounterFlower Hospital08-20-2024 NoteHNO ID: [id number] Author: LEAH CONTRERAS APRN.CHIEF SUPPLY CHAIN OFFICER Service: ? Author Type: Nurse Practitioner Type: [...] discussing with patient and chart review, the patient/nick setter were instructed to schedule with General Surgery Appointment was scheduled with Dr. Quique Contreras APRN.CNP March 20, 2024 2:38 [facility]08-20-2024 History of Present illness Narrative* Leah Contreras [...] discussing with patient and chart review, the patient/nick setter were instructed to schedule with General Surgery Appointment was scheduled with Dr. Quique Contreras APRN.CNP March 20, 2024 2:38 PM documented in this encounterFlower Hospital08-20-2024 NotePatient Outreach (JENNIFER) TIFFANI ALLISON ([id number]) 1985 F Date Time Provider Department 03/20/24 [...] discussing with patient and chart review, the patient/nick setter were instructed to schedule with General Surgery Appointment was scheduled with Dr. Quique Contreras APRN.[facility] March 20, 2024 2:38 PM Allergies As of Date: 03/20/2024 (Not on File) Date Reviewed: Never Reviewed Problem List As Of Date: 03/20/2024 (None) Encounter Status:Closed by LEAH CONTRERAS on 03/20/24[facility] 02-28-2024 Hospital Discharge instructionsAmbulatory Orders* Referral to General Surgery Time Frame: 02/28/24, Location: [facility] Work Phone: 1(959) 312-413804-03-2024 History of Present illness Narrative* Héctor Aguilar [...] Depression Hypertension Hypothyroidism Kidney stones Migraines Seizure ([facility]) REVIEW OF SYSTEMS: Head and [...] for allowing me to participate in [facility]. If there are any questions, please do not hesitate to call me. Sincerely, HÉCTOR AGUILAR MD Video Visit via Real-time Synchronous Audiovisual Provider Location: [facility]- MEDICINE AT [address] [id number] Patient Location: Patient's home Patient Location Hand Mold Maker: None Video Visit Consent Statement: I discussed [...] that there are some limitations compared to jgya-th-mfws evaluations. We elected to proceed. documented in this encounterUniversity Hospitals Parma [facility] Center03-19-2024 History of Present illness Narrative* Eddie Chavez [...] linked telehealth rescheduledvisit. Eddie Chavez MD Professor, [facility] (we called the patient ourselves and were not able to successfully connect with her) documented in this encounterUniversity Hospitals Parma Medical Center02-22-2024 History of Present illness Narrative* [...] Yes Have you been seen here at [facility] in a previous ? No Recent ER visits or hospitalizations? No Bring blood sugar log or meter with you today? (Please bring them with you for every visit at [facility]) N/A Traveled outside the country [...] and the other consultants, we search on [employer] and all the available care everywhere epic I did review all the imaging studies of the patient available on EMR, ordered by the primary care physician and the other healthcare network pricing consultant HABITS: Patient activity no restrictions, diet [...] patient is in complete care of her supervisor dairy sanitation. Patient does have ultrasound office visit scheduled with us Thank you for allowing me to participate in Tiffani Allison . If there any questions please do not hesitate to contact us. Sincerely, HÉCTOR AGUILAR MD documented in this encounterOhio State University Wexner Medical CenterTaxify Aspirus Ironwood [id number] History of Present illness Narrative* REMY Valdes [...] hour glucose order to have [facility]. Follow Up: Patient is to return [...] behalf of: REMY Valdes documented in this encounterSaint John's Health [id number] Miscellaneous Notes* Telephone Encounter - Janae Jiménez - 08/19/2023 10:42 AM EST LEFT A MESSAGE TO SCHEDULE USN AND CONSULT. 08/19/2023 1043 documented in this encounterUniversity Hospitals Parma Medical Center01-19-2024 Telephone encounter Note* Telephone Encounter - Janae Jiménez - 08/19/2023 10:42 AM EST LEFT A MESSAGE TO SCHEDULE USN AND CONSULT. 08/19/2023 1043 [facility] Comeks [id number] Evaluation note* Encounter Date Diagnosis Assessment Notes [...] start metamucile and probiotics RTO 3 months [employer] Other 08-15-2023 Procedure [facility]06-28-2023 Hospital Discharge instructions Patient Education [...] include: ?8 oz (237 mL) of milk, ibetsud-pgvxtlfxboia-jysxe milk, and calcium- fortifiedfruit juice. Calcium-fortified means [...] ?Spinach (cooked), rhubarb, beets, sweet potatoes, and Cymro chard. ?Peanuts. ?Potato chips, upper sorbian fries, and baked potatoes with skin on. ?Nuts and nut products. ?Chocolate. If you regularly take a diuretic medicine, make sure to eat at least 1 or 2 servings of fruits or vegetables that are high in potassium each day. These include: ?Avocado. ?Banana. ?Wasatch, prune, carrot, or tomato juice. ?Baked potato. [...] magnesium, fish oil, or vitamin B6. Take yzak-pny-gljfmbd and prescription medicines only as told by [...] Casseroles. Pizza. Lasagna. Frozen meals. Potato chips. Vietnamese fries. The items listed above may not [...] provider. Document Revised: 03/29/2022 Document Reviewed: 03/29/2022 [employer] Patient Education 2022 [employer]. Follow Up Care 12/28/2022 12:57:40 With:Aram RUSSELL, Con Burdick, URL, URO Address: When:Within 6 Month(s) Comments:irasema FALK & YAMILETH [facility] 06-19-2023 Evaluation note* Encounter Date Diagnosis Assessment Notes Treatment Notes Treatment Clinical Notes Dec, Iron deficiency anemia (ICD-10 - D50.9) Will proceed with EGD Will request recent lab work done at [place]. Dec,ERD (gastroesophageal reflux disease) (ICD-10 - K21.9)Patient to continue on Omeprazole 40mg Dec,iarrhea (ICD-10 - R19.7)Will proceed with Colonoscopy. [employer] Other Evaluation + Plan note Future Appointments Appointment Date:08/03/2023 10:00:00 AM Scheduled Provider:Con Chiu MD Location:[facility] Appointment Type:URO Office Visit [facility] evaluation + Plan note Future Appointments Appointment Date:08/03/2023 10:00:00 AM Scheduled Provider:Con Chiu MD Location:[facility] Appointment Type:URO Office Visit Diagnostic Tests Pending * Calculi Analysis [facility] [facility] 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) Hypothyroidism, unspecified type ([facility]) documented [facility] encounter [facility] [place] noteNo assessment information availableDayton Osteopathic Hospital Work Phone: Evaluation note* Diagnosis Onset Date Resolution Status Anxiety acuteDepressionacuteDry scalpacuteHerniaacuteHypothyroidacuteIron deficiency anemiaacuteTachycardiaacute [facility] Work Phone: Evaluation note* Diagnosis Gastroesophageal reflux disease, unspecified whether esophagitis present- Primary Incisional hernia, without obstruction or gangrene Incisional hernia without mention of obstruction or gangrene [facility] [place] [facility]* Diagnosis Gastroesophageal reflux disease, unspecified whether esophagitis present documented in this encounter [facility] note* Diagnosis Onset Date Resolution Status Anxiety acuteDepressionacuteDry scalpacuteGERD (gastroesophageal reflux disease)acute HerniaacuteHTN (hypertension)acuteHypothyroidacuteIron deficiency anemiaacute Tachycardiaacute [facility] Work Phone: Evaluation note* Diagnosis Onset Date Resolution Status Anxiety acuteDepressionacuteDry scalpacuteGERD (gastroesophageal reflux disease)acute HerniaacuteHTN (hypertension)acuteHypothyroidacuteIron deficiency anemiaacute TachycardiaacuteHTN (hypertension)acuteInappropriate sinus tachycardiaacute Palpitationsnoneactive [facility] Work Phone: Evaluation note* Diagnosis Body mass index 40.0-44.9, adult ([facility])- Primary Body Mass Index 40.0-44.9, adult documented in this encounter [facility] note* Diagnosis Onset Date Resolution Status Anxiety acuteDepressionacuteDry scalpacuteGERD (gastroesophageal reflux disease)acute HerniaacuteHTN (hypertension)acuteHypothyroidacuteIron deficiency anemiaacute TachycardiaacuteHTN (hypertension)acuteInappropriate sinus tachycardiaacute PalpitationsnoneactiveAnxietyacuteDepressionacuteRight ankle injuryacuteRight ankle painacute [facility] Work Phone: Evaluation note* Diagnosis Morbid obesity due to excess calories (HCC)- Primary S/P bariatric surgery Bariatric surgery status Preoperative testing Preoperative examination, unspecified Snoring Other dyspnea and respiratory abnormality Other fatigue Morbid obesity with BMI of 40.0-44.9, adult (HCC) Morbid obesity [facility] [place] [facility]* Diagnosis Preoperative examination- Primary Preoperative examination, unspecified [facility] [place] [facility]* Diagnosis H/O gastric sleeve- Primary Obesity, Class III, BMI 40-49.9 (morbid obesity) (HCC) Morbid obesity Dietary counseling and surveillance Dietary surveillance and counseling documented in this encounter [facility] note* Diagnosis Morbid obesity due to excess calories (HCC) S/P bariatric surgery Bariatric surgery status Preoperative testing Preoperative examination, unspecified Snoring Other dyspnea and respiratory abnormality Other fatigue Morbid obesity with BMI of 40.0-44.9, adult (HCC) Morbid obesity [facility] [place] [facility]* Diagnosis Pain and swelling of right lower leg- Primary Ankle joint instability, right Pain of right calf [facility] Diagnosis 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 Moderate right ankle sprain, sequela [facility] Diagnosis Ankle joint instability, right- Primary Sinus tarsi syndrome of right ankle Posterior tibial tendinitis of right lower extremity [facility] Diagnosis Nicotine dependence in remission, unspecified nicotine product type- Primary [facility] [place] [facility]* Diagnosis Other specified disorders of synovium, right ankle and foot- Primary Sinus tarsitis of right foot documented in this encounter [facility]* Diagnosis Essential hypertension affecting in second trimester- Primary [facility] Diagnosis Pre-existing essential hypertension during in second trimester- Primary Advanced maternal age in multigravida, second trimester Hypothyroid in , antepartum [facility] Diagnosis Essential hypertension affecting in second trimester- Primary [facility] Diagnosis Sinus tarsitis of right foot- Primary Other specified disorders of synovium, right ankle and foot documented in this encounter [facility] Healthcare[facility] note* Diagnosis Morbid obesity (HCC)- Primary Morbid obesity Hiatal hernia Diaphragmatic hernia without mention of obstruction or gangrene Preoperative examination Preoperative examination, unspecified documented in this encounter [facility] note* Diagnosis Preoperative examination- Primary Preoperative examination, unspecified Hiatal hernia Diaphragmatic hernia without mention of obstruction or gangrene Morbid obesity (HCC) Morbid obesity [facility] Diagnosis Other specified disorders of synovium, right ankle and foot- Primary Sinus tarsitis of right foot Contracture of left ankle [facility] Diagnosis Preoperative examination- Primary Preoperative examination, [...] 144/82 04/16/2024 149/79 documented in this encounter [facility] note* Diagnosis Preoperative examination- Primary Preoperative [...] (HCC) Morbid obesity documented in this encounter [facility] note* Diagnosis Preoperative examination- Primary Preoperative [...] Other postprocedural status documented in this encounter [facility] note* Diagnosis Preoperative examination- Primary Preoperative [...] acute postoperative pain [facility] [place] [facility]* Diagnosis Preoperative examination- Primary Preoperative examination, [...] aftercare following surgery [facility] [place] [facility]* Diagnosis Preoperative examination- Primary Preoperative examination, [...] acute postoperative pain documented in this encounter [facility] note* Diagnosis Preoperative examination- Primary Preoperative [...] aftercare following surgery documented in this encounter [facility] note* Diagnosis Onset Date Resolution Status Admit Date Abdominal pain acuteMay 2024 10:59amH/O gastric bypassacuteMay 2024 10:59am [facility] Work Phone: Evaluation note* Diagnosis Preoperative examination- [...] aftercare following surgery documented in this encounter [facility] note* Diagnosis Preoperative examination- Primary Preoperative [...] acute postoperative pain [facility] [place] [facility]* Diagnosis Preoperative examination- Primary Preoperative examination, [...] acute postoperative pain documented [facility] [place] [facility]* Diagnosis Preoperative examination- Primary Preoperative examination, [...] aftercare following surgery [facility] [place] [facility]* Diagnosis Preoperative examination- Primary Preoperative examination, [...] NO SHOW- Primary [facility]* Diagnosis Sinus tarsitis of right foot- [...] History appendectomySurgical Historyleft knee meniscusHospitalization Historysee above [employer] Other Hospital course Narrative No data available for this section [facility] Discharge instructions No data available for this section [facility] Additional Instructions DISCHARGE INSTRUCTIONS [...] if you have any problems. -Office number [phone] Osteopathic Hospital Work Phone: Hospital Discharge instructionsAmbulatory Orders* Referral to Dermatology Time Frame: 02/26/25, Location: None Selected * Referral to Psychiatry Time Frame: 02/26/25, Location: None Selected [facility] Work Phone: InstructionsNot on filedocumented [...] for this section [facility] reason for visit Narrative* Consult, Test, Treat (Routine) - ClosedSpecialtyDiagnoses / ProceduresReferred By ContactReferred To Contact Diagnoses Preoperative examination Hiatal hernia Morbid obesity (HCC) Procedures REFER TO [facility] - PREOPERATIVE OPTIMIZATION OFFICE/OUTPATIENT [facility] 60 MINUTES Khoa Silveira, FORM MAKER PLASTER.CHIEF SUPPLY CHAIN OFFICER [address] [place] [address] Phone: tel: fax: Referral IDStatusReasonStart DateExpiration DateVisits RequestedVisits [id number] PCP [facility]ed [facility] Narrative* Consult, Test, Treat (Routine) - ClosedSpecialtyDiagnoses / ProceduresReferred By ContactReferred To Contact Diagnoses Preoperative examination Hiatal hernia Morbid obesity (HCC) Procedures CONSULT TO [facility] OFFICE/OUTPATIENT [facility] 60 MINUTES Khoa Silveira APRN.CHIEF SUPPLY CHAIN OFFICER [address] [place] [address] Phone: tel: fax: Referral IDStatusReasonStart DateExpiration DateVisits RequestedVisits [id number] PCP Requested Referral [facility] Summary Purpose Family History Relationship Condition [...] second trimester Hypothyroid in , antepartum Procedures [facility] with or without consult Héctor Aguilar MD [address] [facility]ICAL CENTERFrancisco, [address] [place] [address] [facility] [address] [place] [address] Referral IDStatusReasonStart DateExpiration DateVisits RequestedVisits [id number] Review/[id number] / ProceduresReferred By ContactReferred To Contact Diagnoses Morbid obesity due to excess calories (HCC) S/P bariatric surgery Preoperative testing Snoring Other fatigue Morbid obesity with BMI of 40.0-44.9, adult (HCC) Procedures CONSULT TO SLEEP MEDICINE - ADULT OFFICE/OUTPATIENT [facility] 60 MINUTES Renetta Ruano MD [address] [place] [address] Referral IDStatusReasonStart DateExpiration DateVisits RequestedVisits [id number] Review PCP Requested Referral [id number] / ProceduresReferred By ContactReferred To ContactNEUROLOGICAL INSTITUTE Diagnoses Morbid obesity due to excess calories (HCC) S/P bariatric surgery Preoperative testing Snoring Other fatigue Morbid obesity with BMI of 40.0-44.9, adult ([facility]) Procedures HOME SLEEP APNEA TEST (HSAT) SLEEP STD AIRFLOW HRT RATE&O2 SAT EFFORT UNATT Renetta Ruano MD [address] [place] [address] [facility] [address] [place] [address] Referral IDStatusReasonStart DateExpiration DateVisits RequestedVisits [id number] Request Auto-Generated Referral [id number] / ProceduresReferred By ContactReferred To ContactGENERAL SURGERY Diagnoses Gastroesophageal reflux disease, unspecified whether esophagitis present Procedures CONSULT BARIATRIC/METABOLIC INSTITUTE OFFICE/OUTPATIENT [facility] 60 MINUTES Rocio Jeff MD [facility] [place] [address] Ayse Grissom MD [address] [place] [address] Referral IDStatusReasonCastalia DateExpiration DateVisits RequestedVisits [id number]/18/202412/31/202411 Additional Source Comments INFORMATION SOURCE (unrecogn ized section and content) DATE CREATED AUTHOR 01/07/2023 [facility] DATE CREATED AUTHOR AUTHOR'S ORGANIZ ATION 10/19/2023 [facility] DATE CREATED AUTHOR AUTHOR'S ORGANIZ ATION 11/03/2023 [facility] DATE CREATED AUTHOR AUTHOR'S ORGANIZ ATION 01/06/2024 [facility] DATE CREATED AUTHOR AUTHOR'S ORGANIZ ATION 05/12/2024 [facility] DATE CREATED AUTHOR AUTHOR'S ORGANIZ ATION 02/21/2025 [facility] DATE CREATED AUTHOR AUTHOR'S ORGANIZ ATION 02/25/2025 [facility] DATE CREATED AUTHOR AUTHOR'S ORGANIZ ATION 06/13/2025 [facility] REASON FOR VISIT (unrecogniz ed section [...] NEW DDI PATIENT Self Rocio Jeff MD [address] [place] [address] Referral IDStatusReasonStart DateExpiration DateVisits RequestedVisits [id number]/26/202412/[id number] PatientSpecialty Diagnoses / ProceduresReferred By ContactReferred To ContactGENERAL SURGERY Diagnoses Gastroesophageal reflux disease, unspecified whether esophagitis present Procedures CONSULT BARIATRIC/METABOLIC INSTITUTE OFFICE/OUTPATIENT NEW HIGH MDM 60 MINUTES Rocio Jeff MD [address] [place] [id number] Ayse Grissom MD [address] [place] [address] Referral IDStatusMollyasonStart DateExpiration DateVisits RequestedVisits [id number]/18/202412/[id number]g Patient SpecialtyDiagnoses / ProceduresReferred By ContactReferred To ContactGENERAL SURGERY Diagnoses follow up Procedures follow up Ayse Grissom MD [address] [place] [address] [facility] [address] [place] [address] Referral IDStatusReasonStart DateExpiration DateVisits RequestedVisits [id number] OON/Self Pay Override Clearance Not Met -Financial Clearance Bypassed /[id number] Updatept updateReasonCommentsNew PatientSpecialtyDiagnoses / ProceduresReferred By ContactReferred To Contact Diagnoses Gastro-esophageal reflux disease without esophagitis Procedures NEW PATIENT VISIT LEVEL 1 Ayse Grissom MD [address] [place] [address] [facility] [place] [address] Referral IDStatusReresearch belton hospitalStnorthwood DateExpiration DateVisits RequestedVisits [id number] OON/Self Pay Override [id number] EducationAssessmentSpecialty Diagnoses / ProceduresReferred By ContactReferred To Contact Diagnoses Gastro-esophageal reflux disease without esophagitis Procedures NEW PATIENT VISIT LEVEL 1 Ayse Grissom MD [address] [place] [address] [place] [address] SpecialtyDiagnoses / ProceduresReferred By ContactReferred To ContactXR IMAGING Diagnoses Morbid obesity due to excess calories (HCC) [E66.01] S/P bariatric surgery [Z98.84] Preoperative testing [Z01.818] Snoring [R06.83] Other fatigue [R53.83] Morbid obesity with BMI of 40.0-44.9, adult (HCC) [E66.01, Z68.41] Procedures XR CHEST 2V FRONTAL/LAT Renetta Ruano MD [address] [place] [address] [facility] [place] [address] Referral IDStatusReasonStnorthwood DateExpiration DateVisits RequestedVisits [id number] Request OON/Self Pay Override /[id number]PgmkkyrpLrwqThzxsoLsnqkmmuStez CallousesRt callousReasonCommentsResultsReasonCommentsAdvanced Maternal Age Chronic HypertensionHypothyroidismReasonCommentsFollow-up2wk rt sinus tarsi glnlqEnldlvAsbfgnts68/06/2025 (pseudo)VjmsjkCqrbhebi87.25.25 CureOpen Complex AWR 4 hours los [address] Grissom Hiatal hernia/Lap Gastric Sleeve 3 hoursReasonCommentsFollow-upRt ankle capsulitisReasonCommentsApproval call ReasonCommentsPost-Op VisitReasonCommentsPost Op CallReasonCommentsPost OpReason CommentsAnkle Pain Patient Care team informatio n (unrecognized section and content) Personnel Name: ELISABETH BECKMAN CNP Address: [address] [place] [address], [address] [place], [place] [address] Telecom: Team Status: Active Member Role Status Dates Yandel More , [employer]- Primary Care Provider Active Team Status: Inactive Member Role Status Dates Denys Gallego MD Attending Provider Active Yandel More FIELD PARTY MANAGER-BCPricrossbridge behavioral healthy Care ProviderActive Team Status: Inactive Member Role Status Dates Yandel More , FIELD PARTY MANAGER-BC Primary Care Provider Active Start: December 12, 2023 End: December 11orefrank Amos ProviderActiveStart: December 12, 2023 End: December 12, 2023 Team Status: Inactive Member Role Status Dates Yandel More , FIELD PARTY MANAGER-BC Primary Care Provider Active Start: December 12, 2023 End: December 11Clyde Huggins ProviderActiveStart: December 12, 2023 End: December 12, 2023 Team Status: Inactive Member Role Status Dates Yandel More , FIELD PARTY MANAGER- Primary Care Provider Active Start: February 28, 2024 End: February 28, 2024Elisabeth Beckman APRN CEMENT FINISHER HELPER-CAttending ProviderActive Start: February 28, 2024 End: February 28, 2024Team MemberRelationshipSpecialtyStart DateEnd Date Adrian Kerr DO [address] [place] [address] [place] [address] (work) ReferringOb/Gyn03/16/24Team MemberRelationshipSpecialtyStart DateEnd Date Adrian Kerr R, DO [address] [place] [address] ReferringOb/Gyn03/16/24Team MemberRelationshipSpecialtyStart DateEnd Date Adrian Kerr, DO [address] [place], [facility]11 ReferringOb/Gyn03/16/24 Team Status: Inactive Member Role Status Dates Yandel More , FIELD PARTY MANAGER-BC Primary Care Provider Active Start: May 10, 2024 End: May 10, 2024Georsuzanne Quiñones , MDAttending ProviderActive Start: May 10, 2024 End: May 10, 2024Elisabeth Beckman APRN CEMENT FINISHER HELPER-CReferring ProviderActive Start: May 10, 2024 End: May 10, 2024 Team Status: Active Member Role Status Dates Yandel More , FIELD PARTY MANAGER-BC Primary Care Provider Active Start: May 10, 2024 Felipe Quiñones , MDAttending ProviderActiveStart: May 10, 2024 Team Status: Inactive Member Role Status Dates Yandel More , FIELD PARTY MANAGER-BC Primary Care Provider Active Start: May 10, 2024 End: May 10, 2024Georsuzanne Quiñones , MDAttending ProviderActive Start: May 10, 2024 End: May 10, 2024Team MemberRelationshipSpecialtyStart DateEnd Date Adrian Kerr, DO [address] [place] [address] ReferringOb/Gyn03/16/24Team MemberRelationshipSpecialtyStart DateEnd Date Adrian Kerr, DO [address] [place] [address] ReferringOb/Gyn8 Team Status: Active Member Role Status Dates Elisabeth Beckman APRN CEMENT FINISHER HELPER-C Primary Care Provider Active Team Status: Inactive Member Role Status Dates Elisabeth Beckman APRN CEMENT FINISHER HELPER-C Primary Care Provider, Attending Provider Active Start: May 24, 2024 End: May 24, 2024Team MemberRelationshipSpecialtyStart DateEnd Date Adrian Kerr R, DO [address] [facility] [place] [address] [place] [address] ReferringOb/Gyn8Team MemberRelationshipSpecialtyStart DateEnd Date Adrian Kerr, DO [address] [facility] [place] [address] [place] [address] ReferringOb/Gyn03/16/24Team MemberRelationshipSpecialtyStart DateEnd Date Adrian Kerr, DO [address] [facility] [place] [address] [place] [address] ReferringOb/Gyn03/16/24Team MemberRelationshipSpecialtyStart DateEnd Date Adrian Kerr R, DO [address] [place] [address] [address] [place] [address] ReferringOb/Gyn8 Team Status: Active Member Role Status Dates Elisabeth Beckman APRN CEMENT FINISHER HELPER-C Primary Care Provider, Attending Provider Active Start: June 15, 2024 Team Status: Inactive Member Role Status Dates Elisabeth Beckman APRN CEMENT FINISHER HELPER-C Primary Care Provider, Attending Provider Active Start: June 19, 2024 End: June 19, 2024Team MemberRelationshipSpecialtyStart DateEnd Date Elisabeth Beckman NP [address] [place] [address] [place] [address] PCP - GeneralFamily Vrdknpaa22/15/24Team MemberRelationshipSpecialtyStart Date End Date Elisabeth Beckman NP [address] [facility] [place] [address] [place] [address] PCP - GeneralFamily Tdaujphi51/15/24Team MemberRelationshipSpecialtyStart Date End Date Elisabeth Beckman NP [address] [facility] [place] [address] PCP - GeneralFamily Yxqkxsku32/15/24 Team Status: Inactive Member Role Status Dates Elisabeth Beckman APRN CEMENT FINISHER HELPER-C Primary Care Provider, Attending Provider Active Start: August 15, 2024 End: August 15, 2024Team MemberRelationshipSpecialtyStart DateEnd Date Elisabeth Beckman NP [address] [facility] [place] [address] PCP - GeneralFamily Xbusdnzj67/15/24Team MemberRelationshipSpecialtyStart Date End Date Adrian Kerr DO [address] [facility] [place] [address] [place] [address] ReferringOb/Gyn03/16/24Team MemberRelationshipSpecialtyStart DateEnd Date Adrian Kerr DO [address] [facility] [place] [address] [place] [address] ReferringOb/Gyn03/16/24Team MemberRelationshipSpecialtyStart DateEnd Date Elisabeth Beckman NP [address] [facility] [place] [address] PCP - GeneralFamily Dqxscvxq58/15/24Team MemberRelationshipSpecialtyStart Date End Date Eilsabeth Beckman NP [address] [place] [address] [place] [address] PCP - GeneralFamily Mmnzjnkp67/15/24 Team Status: Inactive Member Role Status Dates Elisabeth Beckman APRN CEMENT FINISHER HELPER-C Primary Care Provider, Attending Provider Active Start: September 14, 2024 End: September 14, 2024Team MemberRelationshipSpecialtyStart DateEnd Date No Pcp, [place] [address] PCP - GeneralFamily Medicine10/18/23Team MemberRelationshipSpecialtyStart DateEnd Date No Pcp, [place] [address] PCP - GeneralFamily Medicine10/18/23Team MemberRelationshipSpecialtyStart DateEnd Date Elisabeth Beckman NP [address] [place] [address] [place] [address] PCP - GeneralFamily Wujsfudz83/15/24Team MemberRelationshipSpecialtyStart Date End Date Adrian Kerr DO [address] [place] [address] [place] [address] ReferringOb/Gyn03/16/24Team MemberRelationshipSpecialtyStart DateEnd Date Adrian Kerr, DO [address] [place] [address] [place] [address] ReferringOb/Gyn03/16/24Team MemberRelationshipSpecialtyStart DateEnd Date Elisabeth Beckman NP [address] [place] [address] [place] [address] PCP - GeneralFamily Fpghmcxw95/15/24Team MemberRelationshipSpecialtyStart Date End Date Elisabeth Beckman NP [address] [place] [address] PCP - GeneralFamily Utcicgnt83/15/24Team MemberRelationshipSpecialtyStart Date End Date Elisabeth Beckman NP [address] [place] [place] [address] PCP - GeneralFamily Wyglnqxb72/15/24Team MemberRelationshipSpecialtyStart Date End Date Elisabeth Beckman NP [address] [facility] [address] PCP - GeneralNurse Practitioner10/23/24 Adrian Kerr, [address] [place], [place] [address], [place] [address] ReferringOb/Gyn03/16/24Team MemberRelationshipSpecialtyStart DateEnd Date Elisabeth Beckman NP [address] [facility] [place] [address] PCP - GeneralNurse Practitioner10/23/24 Adrian Kerr DO [address] [place], [place] [address], [place] [address] ReferringOb/Gyn03/16/24Team MemberRelationshipSpecialtyStart DateEnd Date Elisabeth Beckman NP [address] [facility] [place] [address] PCP - GeneralNurse Practitioner10/23/24 Adrian Kerr, DO [address] [place] [address] ReferringOb/Gyn03/16/24Team MemberRelationshipSpecialtyStart DateEnd Date Elisabeth Beckman NP [address] [facility] [place] [address] PCP - GeneralNurse Practitioner10/23/24 Adrian Kerr, DO [address] [place], [facility]11 ReferringOb/Gyn03/16/24Team MemberRelationshipSpecialtyStart DateEnd Date Elisabeth Beckman NP [address] [facility], [facility]11 PCP - GeneralNurse Practitioner10/23/24 Adrian Kerr DO [address] [place], [facility]11 ReferringOb/Gyn03/16/24Team MemberRelationshipSpecialtyStart DateEnd Date Elisabeth Beckman NP [address] [place] [address] PCP - GeneralNurse Practitioner10/23/24 Adrian Kerr DO [address] [place] [address] ReferringOb/Gyn03/16/24Team MemberRelationshipSpecialtyStart DateEnd Date Elisabeth Beckman NP [address] [facility] [place] [address] PCP - GeneralNurse Practitioner10/23/24 Adrian Kerr DO [address] [place] [address] ReferringOb/Gyn03/16/24Team MemberRelationshipSpecialtyStart DateEnd Date Elisabeth Beckman NP [address] [facility] [place] [address] PCP - GeneralNurse Practitioner10/23/24 Adrian Kerr DO [facility] [place] [address] ReferringOb/Gyn03/16/24 Team Status: Active Member Role Status Dates Elisabeth Beckman APRN CEMENT FINISHER HELPER-C Primary Care Provider, Attending Provider Active Start: November 06, 2024 Team Status: Inactive Member Role Status Dates Elisabeth Beckman APRN CEMENT FINISHER HELPER-C Primary Care Provider, Attending Provider Active Start: December 20, 2024 End: December 20, 2024Team MemberRelationshipSpecialtyStart DateEnd Date Elisabeth Beckman NP [address] [facility] [place] [address] PCP - GeneralNurse Practitioner10/23/24 Adrian Kerr DO [facility] [place] [address] ReferringOb/Gyn03/16/24Team MemberRelationshipSpecialtyStart DateEnd Date Elisabeth Beckman NP [address] [facility] [place] [address] PCP - GeneralNurse Practitioner10/23/24 Adrian Kerr DO [address] [place], [place] [address]e [facility] [address] ReferringOb/Gyn03/16/24Team MemberRelationshipSpecialtyStart DateEnd Date Elisabeth Beckman NP [address] [facility] [place] [address] PCP - GeneralNurse Practitioner10/23/24 Adrian Kerr DO [address] [place] [address] [place], [facility]11 ReferringOb/Gyn03/16/24Team MemberRelationshipSpecialtyStart DateEnd Date Elisabeth Beckman NP [address] [place] [address] PCP - GeneralNurse Practitioner10/23/24 Adrian Kerr DO [address] [place] [address] [place], [facility]11 ReferringOb/Gyn03/16/24Team MemberRelationshipSpecialtyStart DateEnd Date Elisabeth Beckman NP [address] [facility] [place] [address] PCP - GeneralFamily Ipanrzwa59/15/24 Team Status: Inactive Member Role Status Dates Elisabeth Beckman APRN CEMENT FINISHER HELPER-C Primary Care Provider Active Start: December 20, 2024 End: December 20, 2024Elisabeth Beckman APRN CEMENT FINISHER HELPER-CAttending ProviderActiveStart: December 20, 2024 End: December 20, 2024 Team Status: Inactive Member Role Status Dates Elisabeth Beckman APRN CEMENT FINISHER HELPER-C Primary Care Provider Active Start: February 26, 2025 End: February 26, 2025Elisabeth BRENDA Beckman CEMENT FINISHER HELPER-CAttenghulam ProviderActive Start: February 26, 2025 End: February 26, 2025Team MemberRelationshipSpecialtyStart DateEnd Date Jaimiegokul Elisabeth Sears NP [facility] [place] [address] [facility] - [facility] Ouliopxk80/15/24Team MemberRelationshipSpecialtyStart Date End Date Elisabeth Beckman NP [facility] [place] [address] PCP - [facility] Myacpicf47/15/24 Goals (unrecognized section and content) Goals may be documented in a n alternate section Source Comments (unrecognize d section and content) In the event this informatio n is protected by the Federal Confidentiality of Alcohol and Drug Abuse Patient Records regulations: The Federal rules restrict any use of the information to criminally investigate or prosecute any alcohol or drug abuse patient.[facility] HospitalIn the event this information is protected by the Federal Confidentiality of Alcohol and Drug Abuse Patient Records regulations: The Federal rules restrict any use of the information to criminally investigate or prosecute any alcohol or drug abuse patient.[facility] HospitalIn the event this information is protected by the Federal Confidentiality of Alcohol and Drug Abuse Patient Records regulations: The Federal rules restrict any use of the information to criminally investigate or prosecute any alcohol or drug abuse patient.[facility] HospitalIn the event this information is protected by the Federal Confidentiality of Alcohol and Drug Abuse Patient Records regulations: The Federal rules restrict any use of the information to criminally investigate or prosecute any alcohol or drug abuse patient.[facility] HospitalIn the event this information is protected by the Federal Confidentiality of Alcohol and Drug Abuse Patient Records regulations: The Federal rules restrict any use of the information to criminally investigate or prosecute any alcohol or drug abuse patient.[facility] HospitalIn the event this information is protected by the Federal Confidentiality of Alcohol and Drug Abuse Patient Records regulations: The Federal rules restrict any use of the information to criminally investigate or prosecute any alcohol or drug abuse patient.[facility] HospitalIn the event this information is protected by the Federal Confidentiality of Alcohol and Drug Abuse Patient Records regulations: The Federal rules restrict any use of the information to criminally investigate or prosecute any alcohol or drug abuse patient.[facility] HospitalIn the event this information is protected by the Federal Confidentiality of Alcohol and Drug Abuse Patient Records regulations: The Federal rules restrict any use of the information to criminally investigate or prosecute any alcohol or drug abuse patient.[facility] HospitalIn the event this information is protected by the Federal Confidentiality of Alcohol and Drug Abuse Patient Records regulations: The Federal rules restrict any use of the information to criminally investigate or prosecute any alcohol or drug abuse patient.[facility] HospitalIn the event this information is protected by the Federal Confidentiality of Alcohol and Drug Abuse Patient Records regulations: The Federal rules restrict any use of the information to criminally investigate or prosecute any alcohol or drug abuse patient.[facility] HospitalIn the event this information is protected by the Federal Confidentiality of Alcohol and Drug Abuse Patient Records regulations: The Federal rules restrict any use of the information to criminally investigate or prosecute any alcohol or drug abuse patient.[facility] HospitalIn the event this information is protected by the Federal Confidentiality of Alcohol and Drug Abuse Patient Records regulations: The Federal rules restrict any use of the information to criminally investigate or prosecute any alcohol or drug abuse patient.[facility] HospitalIn the event this information is protected by the Federal Confidentiality of Alcohol and Drug Abuse Patient Records regulations: The Federal rules restrict any use of the information to criminally investigate or prosecute any alcohol or drug abuse patient.[facility] HospitalIn the event this information is protected by the Federal Confidentiality of Alcohol and Drug Abuse Patient Records regulations: The Federal rules restrict any use of the information to criminally investigate or prosecute any alcohol or drug abuse patient.[facility] HospitalIn the event this information is protected by the Federal Confidentiality of Alcohol and Drug Abuse Patient Records regulations: The Federal rules restrict any use of the information to criminally investigate or prosecute any alcohol or drug abuse patient.[facility] HospitalIn the event this information is protected by the Federal Confidentiality of Alcohol and Drug Abuse Patient Records regulations: The Federal rules restrict any use of the information to criminally investigate or prosecute any alcohol or drug abuse patient.[facility] HospitalIn the event this information is protected by the Federal Confidentiality of Alcohol and Drug Abuse Patient Records regulations: The Federal rules restrict any use of the information to criminally investigate or prosecute any alcohol or drug abuse patient.[facility] HospitalIn the event this information is protected by the Federal Confidentiality of Alcohol and Drug Abuse Patient Records regulations: The Federal rules restrict any use of the information to criminally investigate or prosecute any alcohol or drug abuse patient.[facility] HospitalIn the event this information is protected by the Federal Confidentiality of Alcohol and Drug Abuse Patient Records regulations: The Federal rules restrict any use of the information to criminally investigate or prosecute any alcohol or drug abuse patient.[facility] HospitalIn the event this information is protected by the Federal Confidentiality of Alcohol and Drug Abuse Patient Records regulations: The Federal rules restrict any use of the information to criminally investigate or prosecute any alcohol or drug abuse patient.[facility] HospitalIn the event this information is protected by the Federal Confidentiality of Alcohol and Drug Abuse Patient Records regulations: The Federal rules restrict any use of the information to criminally investigate or prosecute any alcohol or drug abuse patient.[facility] HospitalIn the event this information is protected by the Federal Confidentiality of Alcohol and Drug Abuse Patient Records regulations: The Federal rules restrict any use of the information to criminally investigate or prosecute any alcohol or drug abuse patient.[facility] HospitalIn the event this information is protected by the Federal Confidentiality of Alcohol and Drug Abuse Patient Records regulations: The Federal rules restrict any use of the information to criminally investigate or prosecute any alcohol or drug abuse patient.[facility] HospitalIn the event this information is protected by the Federal Confidentiality of Alcohol and Drug Abuse Patient Records regulations: The Federal rules restrict any use of the information to criminally investigate or prosecute any alcohol or drug abuse patient.[facility] HospitalIn the event this information is protected by the Federal Confidentiality of Alcohol and Drug Abuse Patient Records regulations: The Federal rules restrict any use of the information to criminally investigate or prosecute any alcohol or drug abuse patient.[facility] HospitalIn the event this information is protected by the Federal Confidentiality of Alcohol and Drug Abuse Patient Records regulations: The Federal rules restrict any use of the information to criminally investigate or prosecute any alcohol or drug abuse patient.[facility] HospitalIn the event this information is protected by the Federal Confidentiality of Alcohol and Drug Abuse Patient Records regulations: The Federal rules restrict any use of the information to criminally investigate or prosecute any alcohol or drug abuse patient.[facility] HospitalIn the event this information is protected by the Federal Confidentiality of Alcohol and Drug Abuse Patient Records regulations: The Federal rules restrict any use of the information to criminally investigate or prosecute any alcohol or drug abuse patient.[facility] HospitalIn the event this information is protected by the Federal Confidentiality of Alcohol and Drug Abuse Patient Records regulations: The Federal rules restrict any use of the information to criminally investigate or prosecute any alcohol or drug abuse patient.[facility] HospitalIn the event this information is protected by the Federal Confidentiality of Alcohol and Drug Abuse Patient Records regulations: The Federal rules restrict any use of the information to criminally investigate or prosecute any alcohol or drug abuse patient.[facility] HospitalIn the event this information is protected by the Federal Confidentiality of Alcohol and Drug Abuse Patient Records regulations: The Federal rules restrict any use of the information to criminally investigate or prosecute any alcohol or drug abuse patient.[facility] HospitalIn the event this information is protected by the Federal Confidentiality of Alcohol and Drug Abuse Patient Records regulations: The Federal rules restrict any use of the information to criminally investigate or prosecute any alcohol or drug abuse patient.[facility] HospitalIn the event this information is protected by the Federal Confidentiality of Alcohol and Drug Abuse Patient Records regulations: The Federal rules restrict any use of the information to criminally investigate or prosecute any alcohol or drug abuse patient.[facility] FOR RECORDS PERTAINING TO PATIENTS WHO [...] BE BASED ON THE PRIMARY CLINICAL RECORDS. [facility] [employer]. provides no warranty or guarantee of the accuracy or completeness of information in this document.
== END 2025-06-19 08:56 | disposition home or self-care (01) ==
LOC: US 08:56
PROVIDERS: PCP Nurse Practitioner Family; Visit Provider Student in an Organized Health Care Education/Training Program
DX: R10.30 Lower abdominal pain, unspecified (principal); Z79.899 Other long term (current) drug therapy; Z98.890 Other specified postprocedural states
CPT/HCPCS: 36415; 74018; 76775; 80061; 85025; 86803; 87340

== ENCOUNTER 2025-06-30 10:30 | Emergency (ER) | payer OTHER, SELFPAY ==
--- OUTSIDE RECORDS SUMMARY | 2024-03-20 08:00 | XMS_ITS ---
Author Organization The [facility] in [place] Address [address] [place] [address] Care Team Providers Care Truck Switcher Name Role Phone None, Unknown or Primary Care Provider Unavailab Joana Sánchez Unavailable [phone] REASON FOR VISIT MD [place] PT Hem Encounters Encounter Location Date Provider Diagnosis [facility] On[facility] [place] [address] 03/20/2024 Joana Martínez Plan Of Treatment No Information Progress Notes * LISA ALLISON RDOB:1985 (39 yo F)Acc No.[id number]:03/20/2024 UNLOCKED PROGRESS NOTE Progress Notes Patient: Ciara MADISONLISA Roberta :?Joana Martínez M.D.:1985???Age:38 Y ???Sex:FemaleDate:4Phone:[phone]:[address] [place] [address]Yxg:Unknown or None Subjective: * Chief Complaints: * 1 . MD New PT Hem. * Medical History: Objective: * Vitals: Assessment: Plan: * Treatment: * * Electronic signature of Joana Martínez MD, [id number] on 06/30/2025 at 11:11 AM ESTSign off status: PendingVisit Status:?CONFPHONE (Voice) * Provider: Renu Martínez M.D. Date: 0 03/20/2024 Generated for Printing/Faxing/eTransmitting on:?06/30/2025 11:11 AM EST
--- OUTSIDE RECORDS SUMMARY | 2024-04-12 06:00 | XMS_ITS ---
Author Organization The [facility] in [place] Address [address] [place] [address] Care Team Providers Care Respiratory Medicine Physician Name Role Phone None, Unknown or Primary Care Provider Unavailab Joana Sánchez Unavailable [phone] REASON FOR VISIT MD Encounters Encounter Location Date Provider Diagnosis [facility] Oncology [address] [place] [address] 04/12/2024 Joana Martínez Plan Of Treatment No Information Progress Notes * LISA ALLISON RDOB:1985 (39 yo F)Acc No.[id number]:04/12/2024 UNLOCKED PROGRESS NOTE Progress Notes Patient: Ciara XIELISA MARTINEZ Roberta :?Joana Martínez M.D.:1985???Age:38 Y ???Sex:FemaleDate:4Phone:[phone]:[address] [place] [address]Vxx:Unknown or None Subjective: * Chief Complaints: * 1 . MD. * Medical History: Objective: * Vitals: Assessment: Plan: * Treatment: * * Electronic signature of Joana Martínez MD, [id number] on 06/30/2025 at 11:10 AM ESTSign off status: PendingVisit Status:?CANC (Cancelled) * Provider: Renu Martínez M.D. Date: 0 04/12/2024 Generated for Printing/Faxing/eTransmitting on:?06/30/2025 11:10 AM EST
--- OUTSIDE RECORDS SUMMARY | 2024-04-30 08:00 | XMS_ITS ---
Author Organization [facility] Address [address] [place] [address] Care Team Providers Care Warehouse Worker 2Nd Shift Name Role Phone Dr. Liban Reynoso Primary Care Provider [phone] Shirley Jennifer Ivory Unavailable [phone] REASON FOR VISIT PROPHY BW EXAM Encounters Encounter Location Date Provider Diagnosis [facility] [address] [facility] [place] [address] 04/30/2024 Jennifer Ivory Plan Of Treatment Next Appt Details Provider Name:Melanie grey, 07/03/2025 01:15:00 PM, [address] [place], [address], Progress Notes * TIFFANI GROSSMAN KDOB:1985 (39 yo F)Acc No.[id number]:04/30/2024 Patient:?TIFFANI GROSSMAN :?Jennifer IvoryDOB:1985???Age:38 Y???Sex: FemaleDate:04/30/2024hone:[phone]:[address] [place] [address]Pcp:Dr. Liban Reynoso Subjective: * Chief Complaints: * P ROPHY BW EXAM * Electronic signature of Jeninfer Ivory on 06/30/2025 at 11:11 AM ESTSign off status: Pending * Provider: Renu Ivory Date: 0 04/30/2024 Generated for Printing/Faxing/eTransmitting on:?06/30/2025 11:11 AM EST
--- OUTSIDE RECORDS SUMMARY | 2024-05-15 06:15 | XMS_ITS ---
Author Organization The [facility] in [place] Address [address] [place] [address] Care Team Providers Care Salvage Clerk Name Role Phone None, Unknown or Primary Care Provider Unavailab Joana Sánchez Unavailable [phone] REASON FOR VISIT MD Encounters Encounter Location Date Provider Diagnosis [facility] [address] [place] [address] 05/15/2024 Joana Martínez Plan Of Treatment No Information Progress Notes * LISA ALLISON RDOB:1985 (39 yo F)Acc No.[id number]:05/15/2024 UNLOCKED PROGRESS NOTE Progress Notes Patient: Ciara MADISONLISA Roberta :?Joana Martínez M.D.:1985???Age:38 Y ???Sex:FemaleDate:05/15/2024hone:[phone]:[address] [place] [address]Ijb:Unknown or None Subjective: * Chief Complaints: * 1 . MD. * Medical History: Objective: * Vitals: Assessment: Plan: * Treatment: * * Electronic signature of Joana Martínez MD, [id number] on 06/30/2025 at 11:10 AM ESTSign off status: PendingVisit Status:?VOICEMSG (Voice) * Provider: Renu Martínez M.D. Date: Generated for Printing/Faxing/eTransmitting on:?06/30/2025 11:10 AM EST
--- OUTSIDE RECORDS SUMMARY | 2024-05-28 05:00 | XMS_ITS ---
Author Organization The [facility] in [place] Address [address] [place] [address] Care Team Providers Care Application Defense Manager Name Role Phone None, Unknown or Primary Care Provider Unavailab Joana Sánchez Unavailable [phone] REASON FOR VISIT CL1 Encounters Encounter Location Date Provider Diagnosis [facility] On[facility] [address] [place] [address] 05/28/2024 Joana Martínez Plan Of Treatment No Information Progress Notes * LISA ALLISON RDOB:1985 (39 yo F)Acc No.[id number]:05/28/2024 UNLOCKED PROGRESS NOTE Progress Note Patient: Ciara CAINLISA GRIJALVA :?Joana Martínez M.D.:1985???Age:38 Y ???Sex:FemaleDate:05/28/2024hone:[phone]:[address] [place] [address]Elj:Unknown or None Subjective: * Chief Complaints: * 1 . CL1. * Medical History: Objective: * Vitals: Assessment: Plan: * Treatment: * * Electronic signature of Joana Martínez MD, [id number] on 06/30/2025 at 11:10 AM ESTSign off status: PendingVisit Status:?PEN (Pending) * Provider: Renu Martínez M.D. Date: Generated for Printing/Faxing/eTransmitting on:?06/30/2025 11:10 AM EST
--- OUTSIDE RECORDS SUMMARY | 2024-07-04 05:30 | XMS_ITS ---
Author Organization [facility] Address [address] [place] [address] Care Team Providers Care Electrical Parts Reconditioner Name Role Phone Dr. Liban Reynoso Primary Care Provider [phone] Shirley Jennifer Ivory Unavailable [phone] REASON FOR VISIT 6 MONTHS Encounters Encounter Location Date Provider Diagnosis [facility] [address] [facility] [address] 07/04/2024 Jennifer Ivory Plan Of Treatment Next Appt Details Provider Name:Melanie grey, 07/03/2025 01:15:00 PM, [address] [place], [address], Progress Notes * TIFFANI GROSSMAN KDOB:1985 (39 yo F)Acc No.[id number]:07/04/2024 Patient:?TIFFANI GROSSMAN :?Jennifer IvoryDOB:1985???Age:38 Y???Sex: FemaleDate:07/04/2024hone:[phone]:[address] [place] [address]Pcp:Dr. Liban Reynoso Subjective: * Chief Complaints: * 6 MONTHS * Electronic signature of Jennifer Ivory on 06/30/2025 at 11:09 AM ESTSign off status: Pending * Provider: Renu Ivory Date: 1 09/04/2023 Generated for Printing/Faxing/eTransmitting on:?06/30/2025 11:09 AM EST
--- OUTSIDE RECORDS SUMMARY | 2024-08-08 06:45 | XMS_ITS ---
Author Organization [facility] Address [address] [place] [address] Care Team Providers Care Senior Scrum Master Name Role Phone Dr. Liban Reynoso Primary Care Provider [phone] Shirley ConwaySarahIldaroberto Palomares [phone] REASON FOR VISIT 6MO Encounters Encounter Location Date Provider Diagnosis [facility] [address] [facility] [place] [address] 08/08/2024 Ilda Conway Plan Of Treatment Next Appt Details Provider Name:Melanie grey, 07/03/2025 01:15:00 PM, [address] [place], [address], Progress Notes * KATERINE GROSSMAN KDOB:1985 (39 yo F)Acc No.[id number]:08/08/2024 Patient:?KATERINE GROSSMAN :?Ilda ConwayDOB:1985???Age:38 Y???Sex: FemaleDate:08/08/2024Phone:[phone]:[address] [place] [address]Pcp:Dr. Liban Reynoso Subjective: * Chief Complaints: * 6 MO * Electronic signature of Ilda Conway on 06/30/2025 at 11:11 AM ESTSign off status: Pending * Provider: Misael Conway Date: 0 08/08/2024 Generated for Printing/Faxing/eTransmitting on:?06/30/2025 11:11 AM EST
--- OUTSIDE RECORDS SUMMARY | 2024-08-21 06:00 | XMS_ITS ---
Author Organization The [facility] in [place] Address [address] [place] [address] Care Team Providers Care Diamond Grader Name Role Phone None, Unknown or Primary Care Provider Unavailab Joana Sánchez Unavailable [phone] REASON FOR VISIT MD Encounters Encounter Location Date Provider Diagnosis [facility] On[facility] [address] [place] [address] 08/21/2024 Joana Martínez Plan Of Treatment No Information Progress Notes * LISA ALLISON RDOB:1985 (39 yo F)Acc No.[id number]:08/21/2024 UNLOCKED PROGRESS NOTE Progress Notes Patient: Ciara XIELISA MARTINEZ Roberta :?Joana Mratínez M.D.:1985???Age:38 Y ???Sex:FemaleDate:08/21/2024Phone:[phone]:[address] [place] [address]Xoo:Unknown or None Subjective: * Chief Complaints: * 1 . MD. * Medical History: Objective: * Vitals: Assessment: Plan: * Treatment: * * Electronic signature of Joana Martínez MD, [id number] on 06/30/2025 at 11:11 AM ESTSign off status: PendingVisit Status:?CONFPHONE (Voice) * Provider: Renu Martínez M.D. Date: 0 08/21/2024 Generated for Printing/Faxing/eTransmitting on:?06/30/2025 11:11 AM EST
--- OUTSIDE RECORDS SUMMARY | 2024-10-05 10:35 | XMS_ITS ---
Author Organization [facility] Address [address] [facility] [place] [place] [address] Care Team Providers Care Import/Export Clerk Name Role Phone Dr. Liban Reynoso Primary Care Provider [phone] Aneudy Smith Unavailable [phone] REASON FOR VISIT POSS CROWN REMOVAL/OR EXT Encounters Encounter Location Date Provider Diagnosis [place] [address] [place] [address] 10/05/2024 Aneudy Marte Plan Of Treatment Next Appt Details Provider Name:Melanie grey, 07/03/2025 01:15:00 PM, [address] [place], [address], Progress Notes * KATERINE GROSSMAN KDOB:1985 (39 yo F)Acc No.[id number]:10/05/2024 Patient:?KATERINE GROSSMAN :?Aneudy Marte DDSDOB:1985???Age:38 Y ???Sex:FemaleDate:10/05/2024Phone:[phone]:[address] [place] [id number]:Dr. Liban Reynoso Subjective: * Chief Complaints: * P OSS CROWN REMOVAL/OR EXT * Electronic signature of Aneudy Marte DDS on 06/30/2025 at 11:10 AM ESTSign off status: Pending * Provider: Renu Marte DDS Date: 0 10/05/2024 Generated for Printing/Faxing/eTransmitting on:?06/30/2025 11:10 AM EST
--- OUTSIDE RECORDS SUMMARY | 2024-11-20 06:30 | XMS_ITS ---
Author Organization [facility] [place] Address [address] [place] [address] Care Team Providers Care Pulmonary Function Technologist Name Role Phone None, Unknown or Primary Care Provider Unavailab Joana Sánchez Unavailable [phone] REASON FOR VISIT MD Encounters Encounter Location Date Provider Diagnosis [facility] [address] [place] [id number] 11/20/2024 Joana Martínez Plan Of Treatment No Information Progress Notes * LISA ALLISON RDOB:1985 (39 yo F)Acc No.[id number]:11/20/2024 UNLOCKED PROGRESS NOTE Progress Notes Patient: Ciara MADISONLISA Roberta :?Joana Martínez M.D.:1985???Age:39 Y ???Sex:FemaleDate:11/20/2024Phone:[phone]:[address] [place] [address]Gtw:Unknown or None Subjective: * Chief Complaints: * 1 . MD. * Medical History: Objective: * Vitals: Assessment: Plan: * Treatment: * * Electronic signature of Joana Martínez MD, [id number] on 06/30/2025 at 11:10 AM ESTSign off status: PendingVisit Status:?CANC (Cancelled) * Provider: Renu Martínez M.D. Date: 0 11/20/2024 Generated for Printing/Faxing/eTransmitting on:?06/30/2025 11:10 AM EST
--- OUTSIDE RECORDS SUMMARY | 2025-04-30 09:45 | XMS_ITS ---
Author Organization [facility] Address [address] [place] [address] Care Team Providers Care Ct Technologist Name Role Phone Dr. Liban Reynoso Primary Care Provider [phone] Dayna, Fani Unavailable Unavailable REASON FOR VISIT 6 MONTHS Encounters Encounter Location Date Provider Diagnosis [facility] [address] [address] 04/30/2025 Fani DiBucci Plan Of Treatment Next Appt Details Provider Name:Melanie grey, 07/03/2025 01:15:00 PM, [address] [place], [address], Progress Notes * TIFFANI GROSSMAN KDOB:1985 (39 yo F)Acc No.[id number]:04/30/2025 Patient:?TIFFANI GROSSMAN :?Fani DiBucciDOB:1985???Age:39 Y???Sex: FemaleDate:04/30/2025Phone:[phone]:[address] [place] [id number]:Dr. Liabn Reynoso Subjective: * Chief Complaints: * 6 MONTHS * Electronic signature of Fani DiBucci on 06/30/2025 at 11:10 AM ESTSign off status: Pending * Provider: Wilber Mcintosh Date: 0 04/30/2025 Generated for Printing/Faxing/eTransmitting on:?06/30/2025 11:10 AM EST
[2025-06-30 10:41] VITALS: BP 153/94; PULSE 86; O2SAT 97; BMI 38.0
--- NOTE | 2025-06-30 10:56 | ED.GENADUL1 ---
HPI HPI - General Adult General Chief complaint: Urogenital-Female Stated complaint: UTI COMPLAINTS Time Seen by Provider: 06/30/25 10:35 Source: patient Mode of arrival: walk-in History of Present Illness HPI narrative: 39-year-old female presents for not feeling well. She complains of a headache and bodyaches. Yesterday she had diarrhea but none today. No vomiting. She is on Cipro for UTI and has been on it for about a week. She states the dysuria has gone away but she still has some urgency. No complaints of flank pain. Related Data Home Medications ?Medication ?Instructions ?Recorded ?Confirmed amlodipine 10 mg tablet (Norvasc) 10 mg PO DAILY 11/17/23 12/12/23 aspirin 81 mg capsule 81 mg PO DAILY 11/17/23 12/12/23 bupropion HCl 150 mg 24 hr tablet, 150 mg PO DAILY 11/17/23 12/12/23 extended release (Wellbutrin XL) diphenhydramine HCl 50 mg capsule 50 mg PO .qhs PRN sleep 11/17/23 12/12/23 (Unisom SleepGels) escitalopram oxalate 5 mg tablet 5 mg PO DAILY 11/17/23 12/12/23 (Lexapro) melatonin 10 mg capsule 10 mg PO DAILY 11/17/23 12/12/23 metoprolol succinate 100 mg 100 mg PO DAILY 11/17/23 12/12/23 tablet,extended release 24 hr omeprazole 40 mg capsule,delayed 40 mg PO DAILY 11/17/23 12/12/23 release ondansetron 4 mg disintegrating 4 mg PO TID-QID PRN nausea and 11/17/23 12/12/23 tablet vomiting levothyroxine 25 mcg tablet 25 mcg PO DAILY 12/06/23 12/12/23 levothyroxine 137 mcg tablet 137 mcg PO DAILY 12/12/23 12/12/23 (Synthroid) Previous Rx's ?Medication ?Instructions ?Recorded ibuprofen 800 mg tablet 800 mg PO Q8H PRN pain 14 days #40 12/14/23 tabs oxycodone-acetaminophen 5 mg-325 1 tab PO Q6H PRN pain 7 days #28 12/14/23 mg tablet (Percocet) tabs Allergies Allergy/AdvReac Type Severity Reaction Status Date / Time Penicillins Allergy Severe Anaphylaxis Verified 11/17/23 20:11 topiramate (From Topamax) AdvReac Severe Seizure Verified 11/17/23 20:11 Opioid HPI Opioid Management Most Recent Opioid Data: Last Pain Scale 4 12/14/23, 10:34 Ur Phencyclidine Scrn, (NEGATIVE) Negative 12/12/23, 06:40 Review of Systems ROS Narrative A ten point review of systems is negative except as noted above. PFSH [facility] Medical History (Updated 06/30/25 @ 12:35 by Luc Powell MD) Seizure ?R56.9 - Unspecified convulsions (ICD-10) Migraines ?G43.909 - Migraine, unspecified, not intractable, without status migrainosus (ICD-10) Kidney stones ?N20.0 - Calculus of kidney (ICD-10) Anemia ?D64.9 - Anemia, unspecified (ICD-10) Hypothyroidism ?E03.9 - Hypothyroidism, unspecified (ICD-10) HTN (hypertension) ?I10 - Essential (primary) hypertension (ICD-10) Hiatal hernia ?K44.9 - Diaphragmatic hernia without obstruction or gangrene (ICD-10) GERD (gastroesophageal reflux disease) ?K21.9 - Gastro-esophageal reflux disease without esophagitis (ICD-10) Anxiety ?F41.9 - Anxiety disorder, unspecified (ICD-10) Depression ?F32.A - Depression, unspecified (ICD-10) History of gastrectomy ?Z90.3 - 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] (ICD-10) Surgical History (Updated 12/12/23 @ 18:51 by Heide Jordan) History of 2 sections ?Z98.891 - History of uterine scar from previous surgery (ICD-10) H/O left knee surgery ?Z98.890 - Other specified postprocedural states (ICD-10) Hx of cholecystectomy ?Z90.49 - Acquired absence of other specified parts of digestive tract (ICD-10) History of appendectomy ?Z90.49 - Acquired absence of other specified parts of digestive tract (ICD-10) Social History Little interest or pleasure in doing things: not at all Feeling down, depressed, or hopeless: not at all Exam Narrative Exam Narrative: Nurses note and vital signs reviewed General:The patient appears uncomfortable and in no distress. Skin:Warm, dry, no pallor noted.There is no rash noted. Head:Normocephalic, atraumatic Eye: Normal conjunctiva, no drainage Ears, Nose, Mouth, and Throat: oral mucosa is moist. Nares patent. Cardiovascular:Regular Rate and Rhythm, not tachycardic Respiratory:Patient is in no distress, no accessory muscle use, lungs are clear to auscultation, no wheezing, rales or rhonchi Back:non-tender GI: Obese and nontender Musculoskeletal: The patient has no evidence of calf tenderness, no pitting edema, symmetrical pulses noted bilaterally Neurological:A&O, normal speech Psychiatric:Cooperative Constitutional Vital Signs, click to edit/add: Last Vital Signs Temp 98.3 F 06/30/25 12:27 Pulse 86 06/30/25 10:41 Resp 20 06/30/25 10:41 BP 153/94 H 06/30/25 10:41 Pulse Ox 97 06/30/25 10:41 Course Vital Signs Vital signs: Vital Signs Pulse Rate 86 06/30/25 10:41 Respiratory Rate 20 06/30/25 10:41 Blood Pressure 153/94 H 06/30/25 10:41 Pulse Oximetry 97 06/30/25 10:41 Temperature 98.3 F 06/30/25 12:27 Pulse Rate 86 06/30/25 10:41 Respiratory Rate 20 06/30/25 10:41 Blood Pressure 153/94 H 06/30/25 10:41 Pulse Oximetry 97 06/30/25 10:41 Medical Decision Making MDM Narrative Medical decision making narrative: Blood work is essentially normal. Urine has 5-10 white cells per high-power field. She is already on Cipro and was given a dose of Levaquin here. She will not require admission to the hospital. I have no clinical suspicion of pyelonephritis. Treatment diagnosis and follow-up were discussed with the patient. Differential Diagnosis Differential Diagnosis: UTI, viral illness, pyelonephritis Lab Data Lab results reviewed: Yes I reviewed the patient's lab results Labs: Lab Results 06/30/25 06/30/25 Range/Units 11:05 11:20 WBC 9.7 (4.0-11.0) 10^3/uL RBC 4.90 (4.20-5.40) 10^6/uL Hgb 14.2 (12.0-16.0) g/dL Hct 41.0 (36.0-48.0) % MCV 83.7 (81.0-99.0) fL MCH 29.0 (26.7-34.0) pg MCHC 34.6 (29.9-35.2) g/dL RDW 12.7 (11.0-15.0) % Plt Count 192 (150-450) 10^3/uL MPV 10.3 (9.5-13.5) fL Seg Neuts % (Manual) 89.0 H (43.0-75.0) Lymphocytes % (Manual) 5.0 L (20.5-60.0) % Monocytes % (Manual) 3.0 (1.7-12.0) % Eosinophils % (Manual) 3.0 (0.9-7.0) % Basophils % (Manual) 0.0 L (0.2-2.0) % Neutrophils # (Manual) 8.63 H (1.4-6.5) 10^3/uL Lymphocytes # (Manual) 0.48 L (1.20-3.80) 10^3/uL Monocytes # (Manual) 0.29 L (0.30-0.80) 10^3/uL Eosinophils # (Manual) 0.29 (0.00-0.70) 10^3/uL Basophils # (Manual) 0.00 (0.00-0.10) 10^3/uL Sodium 143 (136-145) mmol/L Potassium 3.5 (3.5-5.1) mmol/L Chloride 106 (98-107) mmol/L Carbon Dioxide 29.0 (21.0-32.0) mmol/L Anion Gap 11.5 BUN 6.0 L (7.0-18.0) mg/dL Creatinine 0.68 (0.55-1.02) mg/dL Est GFR ( Amer) >60 (>=60 mL/min/1.73m^2) Est GFR (Non-Af Amer) >60 (>=60 mL/min/1.73m^2) BUN/Creatinine Ratio 8.8 Glucose 88 (74-106) mg/dL Calcium 8.3 L (8.5-10.1) mg/dL Urine Color Lt. yellow (YELLOW) Urine Clarity Clear (CLEAR) Urine pH 7.5 (5.0-9.0) Ur Specific [place] 1.020 (1.005-1.025) Urine Protein Negative (NEG/TRACE) mg/dL Urine Glucose (UA) Negative (NEGATIVE) mg/dL Urine Ketones Negative (NEGATIVE) mg/dL Urine Occult Blood Negative (NEGATIVE) Urine Nitrite Negative (NEGATIVE) Urine Bilirubin Negative (NEGATIVE) Urine Urobilinogen 0.2 (0.2-1.0) EU/dL Ur Leukocyte Esterase Negative (NEGATIVE) Urine RBC 0-2 (0-2) #/HPF Urine WBC 5-10 A (NONE SEEN) #/HPF Ur Squamous Epith Cells Rare (NONE/RARE) #/LPF Urine Crystals None seen (None Seen) #/HPF Urine Bacteria Small A (NONE SEEN) #/HPF Urine Casts None seen (NONE SEEN) #/LPF Urine Mucus Small A (NONE SEEN) Ur Culture Indicated? Yes-[facility] [place] Urine HCG, Qual Negative (NEGATIVE) Discharge Plan Discharge Chief Complaint: Urogenital-Female Clinical Impression: Urinary tract infection Patient Disposition: Home, Self-Care Time of Disposition Decision: 12:35 Condition: Good Mode of Transportation: Private Vehicle Prescriptions / Home Meds: No Action metoprolol succinate 100 mg tablet extended release 24 hr 100 mg PO DAILY aspirin 81 mg capsule 81 mg PO DAILY amlodipine [Norvasc] 10 mg tablet 10 mg PO DAILY escitalopram oxalate [Lexapro] 5 mg tablet 5 mg PO DAILY bupropion HCl [Wellbutrin XL] 150 mg tablet extended release 24 hr 150 mg PO DAILY omeprazole 40 mg capsule,delayed release(DR/EC) 40 mg PO DAILY melatonin 10 mg capsule 10 mg PO DAILY diphenhydramine HCl [Unisom SleepGels] 50 mg capsule 50 mg PO .qhs PRN (Reason: sleep) ondansetron 4 mg tablet,disintegrating 4 mg PO TID-QID PRN (Reason: nausea and vomiting) levothyroxine 25 mcg tablet 25 mcg PO DAILY levothyroxine [Synthroid] 137 mcg tablet 137 mcg PO DAILY ibuprofen 800 mg tablet 800 mg PO Q8H PRN (Reason: pain) 14 Days Qty: 40 0RF oxycodone-acetaminophen [Percocet] 5-325 mg tablet 1 tab PO Q6H PRN (Reason: pain) 7 Days Qty: 28 0RF Print Language: Nigerian Instructions: Urinary Tract Infection in Women (ED) Referrals: SHANNON LYNCH [Primary Care Provider, Unknown] - 1 week
--- OUTSIDE RECORDS SUMMARY | 2025-06-30 11:09 | XMS_ITS | CCD ---
Author Organization [facility] Care Team Providers Care Wildlife [employer] Internship Name Role Phone KWAN ., LUKE Admitting [...] SHAMMO, YANDEL Consulting Unavailable Denys Gallego Unavailable [phone] SHAMMO, YANDEL TOMASA Primary Care Physician MD Denys Gallego Attending Provider Shammo, [facility] Yandel T Primary Care Provider [phone] Unavailable Primary Care Provider Unavailabl e MYRIAM, ADRIAN R Referring Unavailable NO PCP, NO PCP Primary Care Unavailable HÉCTOR AGUILAR Attending Unavailable MYRIAM, ADRIAN R Referring Unavailable NO PCP, NO PCP Primary Care Unavailable MYRIAM, ADRIAN R Referring Unavailable JEFF HÉCTOR Attending Unavailable MYRIAM, ADRIAN R Referring Unavailable Shammo, [employer]INE[employer] Yandel T Primary Care Provider Myriam, Adrian [...] Shammo, Yandel T Primary Care Unavailable Shammo, WINDOWS 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[employer]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[employer] Yandel T Primary Care Provider MD Felipe Quiñones Attending Provider Shammo WINDOWS SECURITY ENGINEER-BC, Yandel T Primary Care Provider [phone] Felipe Quiñones MD Attending Provider Rohrbacher [employer]IKE [employer]ATE ATT[employer]ER, Elisabeth Sears Primary Care Provider Unavailable Primary Care Provider Unavailabl e No Pcp, No Pcp Primary Care Provider Unavailabl e Rohrbacher [employer]IKE [employer]ATE ATTACHER, Elisabeth Sears Primary Care Provider SELF Referring [...] Allergen(s)Allergy TypeDate of OnsetReaction(s) Facility (3 sources)PenicillinDrug [id number] [facility] (20 sources)Penicillins; Translations: [penicillins]Allergy to substance 51-89-4463Ouqnioounmr (disorder), Anaphylaxis, Unknown, Cough, Hives, Itching, Rash, Shortness of Breath, SwellingExecutive [facility] of [facility] (20 sources)Penicillin GDrug Axqkmzi74-65-8160FijmxbxJNFH [facility] (20 sources)Topiramate; Translations: [TOPIRAMATE]Allergy to oocmuynqu37-88-2157 [facility] (20 sources)topiramateDrug Kificdp25-81-4937YsfdervjlfmAykEtlric Health System Medications Current Medications MedicationDrug Class(es)DatesSig (Normalized)Sig (Original)acetaminophen 500 mg oral tablet (20 sources)Start: 80-04-4750wdtd 2 tablets by mouth every six hours [...] (20 sources)Dihydropyridine Calcium Channel BlockerStart: 09-24-2022 End: 78-77-4201ratr 1 tablet by mouth once dailyamLODIPine 10 mg Tab 10 mg = 1 tab(s), Oral, Daily, Refills(s) 0 Start Date: 01/26/23 Status: Ordered Medication Dispense Status: Completed Total Allowed Fills: 1 Fills Dispensed: 0 deucravacitinib 6 MG Oral Tablet [Sotyktu] (1 source)Start: 66-38-0433osgj 1 mg by mouth once dailySotyktu 6 mg oral tablet mg tab(s), Oral, Daily, Refills(s) 0 Start Date: 06/11/25 Status: Ordered M edication Dispense Status: Completed Total Allowed Fills: 1 Fills Dispensed: 0 doxycycline hyclate 100 mg oral capsule (6 sources)Tetracycline-class DrugStart: 12-05-2024 End: 22-66-7613ciwb 1 capsule by mouth twice dailydoxycycline hyclate (VIBRAMYCIN) 100 mg capsule Indications: Postoperative visit Take 1 capsule by m outh two times a day for 10 days. 20 capsule 12/05/2024 12/15/2024 ActiveStart: 11-27-2024 End: 45-81-5363lyun 1 capsule by mouth every twelve hours in the morning, then take 6 capsules by mouth in the eveningdoxycycline hyclate (VIBRAMYCIN) 100 mg capsule Take 1 capsule by mouth every 12 hours at 6 am and 6 pm for 7 days. 14 capsule 11/27/2024 1:46 PM EDT 11/27/2024 12/04/2024 ActiveDULoxetine 30 mg delayed release oral capsule (20 sources)Serotonin and Norepinephrine Reuptake InhibitorStart: 29-28-9862lvpi 1 capsule by mouth once dailyduloxetine 30 mg oral delayed release capsule TAKE 1 CAPSULE BY MOUTH DAILY Start Date: 06/11/25 Status: Ordered Medication Dispense Status: Completed Total Allowed Fills: 1 Fills Dispensed: 0Start: 94-29-1035vovq 1 capsule by mouth once dailyDuloxetine 30 mg capsule,delayed release(DR/EC) Active 30 MG PO Daily December 17, 2024 12:00am Complies with drug therapyStart: 12-11-2024 End: 31-38-2976xfcb 1 capsule by mouth once dailyDuloxetine 40 mg capsule,delayed release(DR/EC) Discontinued 0 .ROUTE .COMPLEX December 11, 2024 7:47am December 17, 2024 3:12pm TAKE 1 CAPSULE BY MOUTH DAILYStart: 09-14-2024 End: 14-01-0385frfi 1 capsule by mouth once dailyDuloxetine (Cymbalta) 30 mg capsule,delayed release(DR/EC) Discontinued 30 MG PO Daily 30 December 10, 2024 9:12am December 11, 2024 7:48amEnoxaparin 40 mg/0.4 mL syringe (1 source)Start: 96-57-9747gbcrpr 40 mg by subcutaneous injection twice daily Enoxaparin 40 mg/0.4 mL syringe Active 40 MG SUBCUT Twice daily December 20, 2024 12:00amfluocinolone acetonide 0.1 mg/ml topical oil (2 sources)CorticosteroidFluocinolone Acetonide Scalp 0.01 % 1 application Externally Twice a day Activegabapentin 300 mg oral capsule (14 sources)Anti-epileptic AgentStart: 12-10-2024 End: 57-40-5391comr 1 capsule by mouth twice dailygabapentin (NEURONTIN) 300 mg capsule Indications: Acute postoperative pain Take 1 capsule by mouthtwo times a day for 30 days. 60 capsule 01/24/2025 02/23/2025 Activeibuprofen 800 mg oral tablet (20 sources)Nonsteroidal Anti-inflammatory DrugStart: 75-40-5876Sqenggxeb 800 mg tablet Active 800 MG PO every 6 to 8 hours as needed May 10, 2024 12:00am Complies with drug therapyStart: 03-13-2024 End: 63-98-3990tqyvsfhrc 800 MG tablet 03/13/2024 Activeiron carbonyl 15 mg chewable tablet (2 sources)Start: 92-30-6664Xwyfqrvh Iron (Iron Chews Pediatric) 15 MG chewable tablet Chew 0 01/26/2023 ActiveIron Chews (2 sources)Start: 79-59-0852dxcd 1 mg by mouth once dailyIron Chews mg, Oral, Daily, Refills(s) 0 Start Date: 01/26/23 Status: Orderedketoconazole 20 mg/ml medicated shampoo (1 source)Azole AntifungalStart: 02-97-2422azbhjrxqqlfu Top 2% Shampoo wash scalp TUESDAY thru TUESDAY, lather and let sit 2-3 MINUTES then rinse Start Date: 06/11/25 Status: Ordered Medication Dispense Status: Completed Total Allowed Fills: 1 Fills Dispensed: 0levothyroxine sodium 0.025 mg oral tablet (20 sources)l-ThyroxineStart: 79-31-4326njce 1 tablet by mouth once daily levothyroxine 25 mcg (0.025 mg) Tab 25 mcg = 1 tab(s), Oral, Daily, Refills(s) 0 Start Date: 03/13/24 Status: Ordered Medication Dispense Status: Completed Total Allowed Fills: 1 Fills Dispensed: 0Start: 09-01-2023 End: 53-72-4651upgu 1 tablet by mouth before mealtimelevothyroxine (Synthroid, Levoxyl) 25 MCG tablet Indications: Other specified hypothyroidism TAKE 1TABLET BY MOUTH IN THE MORNING BEFORE MEALS WITH the current dosage 30 tablet 3 11/21/2023 ActiveStart: 09-27-5126Otmubulae 137 MCG tablet Take 137.5 mcg by mouth in the morning. Take before meals. 0 03/09/2023 ActiveStart: 06-28-2023 take 1 capsule by mouth once dailylevothyroxine 137 mcg (0.137 mg) oral capsule 137 mcg = 1 cap(s), Oral, Daily, Refills(s) 0 Start Date: 01/26/23 Status: Ordered Medication Dispense Status: Completed Total Allowed Fills: 1 Fills Dispe nsed: 0Start: 69-23-5594vnan 1 tablet by mouth once dailyLevothyroxine (Synthroid) 137 mcg tablet Active 137 MCG PO Daily March 14, 2023 12:00am Complieswith drug therapyLevothyroxine Sodium Activemeclizine hydrochloride 25 mg oral tablet (17 sources)AntiemeticStart: 40-92-5636nqacgjvel (Antivert) 25 MG tablet every 12 (twelve) hours 0 03/14/2023 ActiveStart: 03-14-2023 End: 58-27-2845jysr 1 tablet by mouth once daily as needed for dizziness Meclizine 25 mg Tablet Discontinued 25 MG PO Daily as needed for Dizziness March 14, 2023 12:00am February 28, 2024 8:19amStart: 56-45-7224dsje 1 mg by mouth once dailymeclizine 25 mg oral tablet, chewable mg tab(s), Chewed, Daily, Refills(s) 0 Start Date: 01/26/23 Status: Orderedtake 1 tablet by mouth every twelve hoursMeclizine HCl 25 MG 1 tablet as needed Orally every 12 hrs Active melatonin 1 mg oral capsule (20 sources)Start: 38-45-2202Vikfmbqpz 1 MG capsule Bedtime 0 03/14/2023 Active Start: 03-14-2023 End: 65-53-5640fmez 1 tablet by mouth at bedtimeMelatonin 12 mg Tablet Discontinued 12 MG PO Bedtime March 14, 2023 12:00am February 28, 2024 8:19am melatonin 1 mg chew Take by mouth. ActiveMelatonin 1 MG chewable tablet Chew 1 each in the morning. 0 Activemelatonin 1 mg tablet,chewable Chew and swallow. 0 ActivemetFORMIN hydrochloride 500 mg oral tablet (19 sources)BiguanideStart: 52-15-9114johz 1 tablet by mouth every twelve hours metFORMIN (GLUCOPHAGE) 500 mg tablet Take 1 tablet by mouth every 12 hours. 09/14/2024 ActiveStart: 09-14-2024 End: 97-74-3877wpsg 1 tablet by mouth twice dailyMetformin 500 mg tablet Discontinued 500 MG PO Twice daily 180 90 September 14, 2024 1:00am February 26, 2025 10:12ammethocarbamol 500 mg oral tablet (14 sources)Muscle RelaxantStart: 01-24-2025 End: 09-56-9210hcjv 1 tablet by mouth twice daily as neededmethocarbamol (ROBAXIN) 500 mg tablet Indications: Acute postoperative pain Take 1 tablet by mouth two times a day as needed. 60 tablet 01/24/2025 02/23/2025 ActiveStart: 12-05-2024 End: 29-38-4937jqql 1 tablet by mouth three times daily as neededmethocarbamol (ROBAXIN) 750 mg tablet Indications: Acute postoperative pain Take 1 tablet by mouth three times a day as needed for up to 10 days. 30 tablet 01/07/2025 01/17/2025 ActiveStart: 11-27-2024 End: 31-74-5472jkvq 1 tablet by mouth every eight hours as neededmethocarbamol (ROBAXIN) 500 mg tablet Take 1 tablet by mouth three times a day as needed (Muscle spasms) for up to 5 days. 15 tablet 11/27/2024 1:46 PM EDT 11/27/2024 12/02/2024 Pkzfge33 hr metoprolol succinate 100 mg extended release oral tablet (20 sources)beta-Adrenergic BlockerStart: 37-03-9285bfih 1 tablet by mouth every twenty-four hours in the morningmetoprolol succinate XL (Toprol-XL) 100 MG 24 hr tablet Indications: Hypertension affecting in second trimester ([facility]) TAKE 1 TABLET BY MOUTH IN THE MORNING 30 tablet 11 09/04/2024 Active Start: 03-14-2023 End: 83-66-8933okht 4 tablets by mouth once dailyMetoprolol Succinate 100 mg tablet extended release 24 hr Discontinued 25 MG PO Daily March 14, 2023 12:00am February 28, 2024 8:19amStart: 03-14-2023 End: 89-72-3278txsz 25 mg by mouth once dailyMetoprolol Succinate Discontinued 25 MG PO Daily March 14, 2023 12:00am February 28, 2024 8:19amStart: 09-09-2022 take 1 tablet by mouth once dailymetoprolol 100 mg ER Tab 100 mg = 1 tab(s), Oral, Daily, Refills(s) 0 Start Date: 01/26/23 Status: Ordered Medication Dispense Status: Completed Total Allowed Fills: 1 Fills Dispensed: 0Start: 09-09-2022 End: 71-97-5727bvqqzvyscm succinate ER (TOPROL XL) 100 mg Take 100 mg by mouth. 09/09/2022 Activetake 1 capsule by mouth once dailyMetoprolol Succinate 100 MG 1 capsule Orally Once a day ActiveMulti Vitamin+ (2 sources)Start: 92-31-3772Cllsy Vitamin+ Refill(s) 0 Start Date: 01/26/23 Status: OrderedMultiple Vitamin (Multi Vitamin Daily) tablet (2 sources)Start: 78-69-6446Mvobmspd Vitamin (Multi Vitamin Daily) tablet Refill(s) 0 0 01/26/2023 Activeondansetron 4 mg disintegrating oral tablet (20 sources)Serotonin-3 Receptor AntagonistStart: 11-28-8009qfin 1 tablet by mouth every eight hours as needed for nausea and vomitingOndansetron 4 mg tablet,disintegrating Active 4 MG PO Q8H as needed for nausea and vomiting 30 05February 14, 2025 12:00am Complies with drug therapyStart: 03-14-2023 End: 65-12-9054Lccrjizpkwi 4 mg tablet,disintegrating Discontinued 4 MG PO As Directed as needed for Nausea 2022 12:00am February 28, 2024 8:19am Start: 03-14-2023 End: 46-18-8860ubtftapvkmb orally disintegrating (ZOFRAN ODT) 4 mg disintegrating tablet 1 (one) time each day at the same time 03/14/2023 Active Start: 37-25-9593iaes 1 mg by mouth every eight hoursZofran 4 mg Tab mg tab(s), Oral, q8hr, Refills(s) 0 Start Date: 01/26/23 Status: Orderedtake 1 tablet by mouth every twenty-four hoursOndansetron HCl 4 MG 1 tablet Orally Once a day ActiveoxyCODONE hydrochloride 5 mg oral tablet (9 sources)Opioid AgonistStart: 12-10-2024 End: 20-09-8875cuza 1 tablet by mouth every eight hours as needed for pain oxyCODONE IR (ROXICODONE) 5 mg immediate release tablet Indications: Acute postoperative pain Take 1 tablet by mouth every 8 hours as needed for pain for up to 7 days. 20 tablet 12/10/2024 5ActiveStart: 11-27-2024 End: 84-72-9692ureo 1 tablet by mouth every six hours as needed for pain oxyCODONE IR (ROXICODONE) 5 mg immediate release tablet Indications: Acute postoperative pain Take 1 tablet by mouth every 6 hours as needed for pain for up to 7 days. 28 tablet 12/03/2024 12/10/2024Discontinued (Course of therapy completed)predniSONE 10 mg oral tablet (4 sources)Start: 07-10-2024 End: 93-62-2232zdat 5 tablets by mouth once daily, then [...] acetonide 0.001 mg/mg topical ointment (1 source)CorticosteroidStart: 62-88-3132pzjbi 1 dose topically twice daily triamcinolone 0.1% topical kit Topical, BID, Refill(s) 0 Start Date: 06/11/25 Status: Ordered Medication Dispense Status: Completed Total Allowed Fills: 1 Fills Dispensed: 0Unisom Sleep Gels (2 sources)Start: 89-31-4837lgvr 1 mg by mouth every six hoursUnisom Sleep Gels mg, Oral, q6hr, Refills(s) 0 Start Date: 01/26/23 Status: Fjxzbnr85 hr venlafaxine 37.5 mg extended release oral capsule (18 sources)Serotonin and Norepinephrine Reuptake InhibitorStart: 08-15-2024 venlafaxine XR (Effexor XR) 37.5 MG 24 hr capsule 08/15/2024 ActiveStart: 08-15-2024 End: 51-29-3186ganp 1 capsule by mouth once dailyVenlafaxine (Effexor Xr) 37.5 mg capsule,extended release 24hr Discontinued 37.5 MG PO Daily August 15, 2024 1:00am September 14, 2024 12:46pmvit B-comp w-Fe,Ca,FA<1mg (IRON- VITAMINS ORAL) (20 sources)vit B-comp w-Fe,Ca,FA Active Completed/Discontinued Medications MedicationDrug Class(es)DatesSig (Normalized)Sig (Original)acetaminophen 325 mg / oxyCODONE hydrochloride 5 mg oral tablet (19 sources)Opioid AgonistStart: 12-14-2023 End: 31-00-4386hfcm 1 tablet by mouth every six hoursoxyCODONE-acetaminophen (PERCOCET) 5-325 mg tablet Take 1 tablet by mouth q 6 HR. 12/14/2023 11/06/2024 DiscontinuedamLODIPine 10 mg / atorvastatin 10 mg oral tablet (16 sources)Dihydropyridine Calcium Channel Harsh, HMG-CoA Reductase Inhibitor End: 12-47-7829xeCDRINajd-Atorvastatin 10-10 mg per tablet 11/06/2024 Discontinuedaspirin 81 mg delayed release oral tablet (20 sources)Platelet Aggregation Inhibitor, Nonsteroidal Anti-inflammatory Drug Start: 03-05-2024 End: 95-00-2013Kzdunes (Adult Low Dose Aspirin) 81 mg tablet,delayed release (DR/EC) Discontinued 81 MG PO .every other day May 10, 2024 10:51am August 15, 2024 12:02pmStart: 02-28-2024 End: 57-04-1452Kjcovmv (Adult Low Dose Aspirin) 81 mg tablet,delayed release (DR/EC) Discontinued 81 MG PO Daily February 28, 2024 12:00am May 10, 2024 10:52am24 hr buPROPion hydrochloride 300 mg extended release oral tablet (20 sources)AminoketoneStart: 05-24-2024 End: 12-40-7255uhal 1 tablet by mouth once daily in the morningBupropion Hcl (Wellbutrin Xl) 300 mg tablet extended release 24 hr Discontinued 300 MG PO Every morning 90 90 June 19, 2024 11:20am December 20, 2024 11:19amStart: 02-28-2024 End: 57-90-5249gxyk 1 tablet by mouth once dailyBupropion Hcl 150 mg tablet extended release 24 hr Discontinued 150 MG PO Daily February 28, 2024 12:00am May 24, 2024 10:46amStart: 02-28-2024 End: 14-02-1288bdgv 1 tablet by mouth once dailyBupropion Hcl 150 mg tablet extended release 24 hr Discontinued 150 MG PO Daily February 28, 2024 12:00am May 24, 2024 10:46amStart: 09-14-2023 End: 91-01-8433eurg 1 tablet by mouth every twenty-four hours in the morning buPROPion XL (Wellbutrin XL) 150 MG 24 hr tablet Indications: Anxiety with depression TAKE 1 TABLETBY MOUTH IN THE MORNING DO NOT CRUSH, CHEW, OR SPLIT 30 tablet 11 05/18/2024 ActivebusPIRone hydrochloride 10 mg oral tablet (20 sources)Start: 08-31-2022 End: 89-21-8446alvQDJdwv (BUSPAR) 10 mg tablet Take 10 mg by mouth. 08/31/2022 11/06/2024 Discontinuedchlorhexidine gluconate 1.2 mg/ml mouthwash (20 sources)Start: 09-28-2022 End: 69-31-9999Lpzixugabsjhg Gluconate (PERIDEX) 0.12 % solution TAKE 15 ML IN MOUTH & SWISH FOR 30 SECONDS THEN SPIT OUT TWICE DAILY FOR 20 DAYS 09/28/2022 11/06/2024 DiscontinuedStart: 56-46-2957jkxcavfmpfesy (PERIDEX) 0.12 % solution TAKE 15 ML IN MOUTH & SWISH FOR 30 SECONDS THEN SPIT OUT TWICE DAILY FOR 20 DAYS 0 09/28/2022 Activeclindamycin 300 mg oral capsule (16 sources)Lincosamide AntibacterialStart: 01-19-2024 End: 76-86-9621edvm 1 capsule by mouth four times daily at bedtimeclindamycin (CLEOCIN) 300 mg capsule TAKE 1 CAPSULE BY MOUTH FOUR TIMES DAILY (IN THE MORNING, at noon, IN THE EVENING, and BEFORE bedtime) FOR 10 DAYS 01/19/2024 11/06/2024 Discontinuedclobetasol propionate 0.5 mg/ml topical solution (1 source)CorticosteroidStart: 55-62-9376qufoocinfd Top 0.05% Kavya APPLY TO THE AFFECTED AREA (scalp) TWICE DAILY TUESDAY through TUESDAY; off the weekends; then repeat NEEDED Start Date: 06/11/25 Status: Ordered Medication Dispense Status:Completed Total Allowed Fills: 1 Fills Dispensed: 0diclofenac sodium 75 mg delayed release oral tablet (20 sources)Nonsteroidal Anti-inflammatory DrugStart: 03-28-2024 End: 65-88-6764fcwl 1 tablet by mouth every twelve hoursdiclofenac, EC, (VOLTAREN) 75 mg EC tablet Take 1 tablet by mouth every 12 hours. 03/28/2024 11/06/2024 DiscontinuedStart: 03-14-2023 End: 96-51-4316zclo 1 tablet by mouth twice dailyDiclofenac Sodium 75 mg tablet,delayed release (DR/EC) Discontinued 75 MG PO Twice daily March 14, 2023 12:00am February 28, 2024 8:19amStart: 90-66-9331zplacagezv (Voltaren) 75 MG EC tablet every 12 (twelve) hours 0 02/21/2023 ActivediphenhydrAMINE hydrochloride 50 mg oral capsule (20 sources)Histamine-1 Receptor AntagonistStart: 01-26-2023 End: 37-92-9741sipf 1 capsule by mouth once daily at bedtimeDiphenhydramine Hcl 50 mg Capsule Discontinued 50 MG PO Daily at bedtime March 14, 2023 12:00am 2023 1:22pmdiphenhydramine HCl (UNISOM, DIPHENHYDRAMINE, ORAL) Take 50 mg by mouth. 0 ActiveDuloxetine 40 mg capsule,delayed release(DR/EC) (1 source)Start: 12-11-2024 End: 70-64-0104fymw 1 capsule by mouth once dailyDuloxetine 40 mg capsule,delayed release(DR/EC) Discontinued 0 .ROUTE .COMPLEX 90 December 11, 2024 7:47am December 17, 2024 3:12pm TAKE 1 CAPSULE BY MOUTH DAILY0.4 ml enoxaparin sodium 100 mg/ml prefilled syringe (8 sources)Low Molecular Weight HeparinStart: 12-20-2024 End: 64-80-0768wbupsf 40 mg by subcutaneous injection twice dailyEnoxaparin 40 mg/0.4 mL syringe Discontinued 40 MG SUBCUT Twice daily December 20, 2024 12:00am February 26, 2025 10:11amStart: 11-27-2024 End: 90-93-2566gvlyrh 40 mg by subcutaneous injection every twelve hours enoxaparin (LOVENOX) 40 mg/0.4 mL Inject 0.4 mL subcutaneously every 12 hours. 24 mL 11/27/2024 1:46 PM EDT 11/27/2024 12/27/2024 Activeescitalopram 10 mg oral tablet (20 sources)Serotonin Reuptake InhibitorStart: 01-26-2023 End: 14-32-6780absu 1 tablet by mouth once dailyEscitalopram Oxalate 10 mg tablet Discontinued 10 MG PO Daily 90 February 28, 2024 1:45pm May 24, 2024 10:47amtake 1 tablet by mouth every twenty-four hoursEscitalopram Oxalate 5 MG 1 tablet Orally Once a day Activeferrous sulfate 134 mg oral tablet (20 sources)Start: 03-14-2023 End: 87-46-7032sdtp 1 tablet by mouth once dailyFerrous Sulfate 27 mg iron Tablet Discontinued 27 MG PO Daily March 14, 2023 12:00am February 28, 2024 8:19am End: 40-15-4460rahsdyy sulfate 325 mg (65 mg iron) EC tablet Take 325 mg by mouth. 11/06/2024 Discontinuedtake 1 tablet by mouth three times weeklyIron 325 (65 Fe) MG 1 tablet Orally Three times a Week Activefluocinonide 0.5 mg/ml topical solution (20 sources)CorticosteroidStart: 09-25-2022 End: 75-85-7994Spqldifbfoip 0.05 % solution Discontinued 1 APPLIC TOPICAL every other day 60 30 February 28, 2024 1:55pm June 11, 2024 12:02pmfluocinonide (LIDEX) 0.05 % external solution APPLY TO THE AFFECTED AREA(S) topically DAILY ActivehydrOXYzine pamoate 25 mg oral capsule (20 sources)AntihistamineStart: 10-14-2022 End: 23-86-0042svov 1 capsule by mouth every twelve hours as neededhydrOXYzine pamoate (VISTARIL) 25 mg capsule Take 1 capsule by mouth two times a day as needed. 10/14/2022 11/06/2024 Discontinuedmeloxicam 15 mg oral tablet (14 sources)Nonsteroidal Anti-inflammatory DrugStart: 07-10-2024 End: 22-76-2768yxlu 1 tablet by mouth once dailymeloxicam (MOBIC) 15 mg tablet Take 15 mg by mouth once daily. 07/10/2024 11/30/2024 Discontinued (Discontinued by Patient)omeprazole 40 mg delayed release oral capsule (20 sources)Proton Pump InhibitorStart: 08-28-2024 End: 56-89-8177bwda 1 capsule by mouth once dailyOmeprazole 40 mg capsule,delayed release(DR/EC) Discontinued 0 .ROUTE .COMPLEX 90 August 28, 2024 1:01pm February 26, 2025 10:12am TAKE 1 CAPSULE BY MOUTH DAILYStart: 01-26-2023 End: 65-39-2377bors 1 capsule by mouth twice dailyOmeprazole 40 mg capsule,delayed release(DR/EC) Discontinued 40 MG PO Twice daily 60 July 24, 2024 12:10pm August 28, 2024 1:01pmStart: 01-26-2023 End: 31-99-6746gfkb 1 capsule by mouth once dailyOmeprazole 40 mg capsule,delayed release(DR/EC) Discontinued 40 MG PO Daily March 14, 2023 12:00am June 11, 2024 12:02pmSemaglutide (4 sources)Start: 08-15-2024 End: 59-17-8688Ephzfresxju (Ozempic) 0.25 mg or 0.5 mg (2 mg/3 mL) pen injector Discontinued 0.25 MG SUBCUT every week 3 August 15, 2024 1:00am September 14, 2024 12:33pm for 4 weeksStart: 08-15-2024 End: 09-05-1281Ujazxdnooxo (Ozempic) 0.25 mg or 0.5 mg (2 mg/3 mL) pen injector Discontinued 0.25 MG SUBCUT every week August 15, 2024 12:00am September 14, 2024 11:33am for 4 weeksStart: 82-55-8103Zobwimcqgxn (Ozempic) 0.25 mg or 0.5 mg (2 mg/3 mL) pen injector Active 0.25 MG SUBCUT every week 2024 12:00am for 4 weekssertraline 100 mg oral tablet (20 sources)Serotonin Reuptake InhibitorStart: 10-14-2022 End: 89-89-6249qruqtikogy (ZOLOFT) 100 mg tablet Take 100 mg by mouth. 10/14/2022 11/06/2024 DiscontinuedtiZANidine 4 mg oral tablet (11 sources)Central alpha-2 Adrenergic AgonistStart: 03-14-2023 End: 36-68-3487Ppkyeytjsu 4 mg tablet Discontinued 4 MG PO As Directed as needed for Pain March 14, 2023 12:00am February 28, 2024 8:19amtraMADol hydrochloride 50 mg oral tablet (8 sources)Opioid AgonistStart: 12-20-2024 End: 65-31-7457awoe 1 tablet by mouth twice daily as [...] anxiety; Translations: [Adjustment disorder with anxious mood]Onset: 03-71-9189BcwerevTkeytygythjmsk/social admission (1 source)Patient encounter status; Translations: [Dietary counseling and surveillance]72-51-5124ZzmvknoqQoidgcd disorders (20 sources)Mixed anxiety and depressive disorder; Translations: [Other specified anxiety disorders]Onset: 787096-19-5581WibvvnzGoxcjskq of urinary tract (7 sources)Ureteric stone; Translations: [Calculus of ureter]Onset: 01-26-2023 EpisodicCardiac and circulatory congenital anomalies (4 sources)Arteriovenous malformation of digestive system vessel; Translations: [Arteriovenous malformation]ChronicCardiac dysrhythmias (20 sources)Inappropriate sinus tachycardia; Translations: [Inappropriate sinus tachycardia]Onset: [id number] dysrhythmias (19 sources)Tachycardia; Translations: [Tachycardia, unspecified]Onset: 592911-02-2843MnhuupruVxkgifzrgycgd of surgical procedures or medical care (14 sources)Post-operative wound cellulitis; Translations: [Infection following a procedure, other surgical site, initial encounter]Onset: EpisodicDeficiency and other anemia (11 sources)Iron deficiency anemia, unspecified; Translations: [Iron deficiency anemia, unspecified]Onset: 50-25-3037BtgkcxnhYijabqcdtg and other anemia (20 sources)Iron deficiency anemia; Translations: [Iron deficiency anemia, unspecified]Onset: 949733-38-1740ZpgkshntOrckwqad mellitus without complication (6 sources)Impaired fasting glycemia; Translations: [Impaired fasting glucose] 79-13-4426HjhmckdqAedzihyscxwyvz and diverticulitis (4 sources)Diverticular disease of colon; Translations: [Diverticulosis of intestine, part unspecified, without perforation or abscess without bleeding] ChronicEsophageal disorders (20 sources)Gastroesophageal reflux disease; Translations: [Gastro-esophageal reflux disease without esophagitis]Onset: 16-94-2937GjozlmaCrjussftv hypertension (20 sources)Hypertensive disorder; Translations: [Essential (primary) hypertension]Onset: 624870-41-1217SotxtovTuabq and electrolyte disorders (13 sources)Hypokalemia; Translations: [Hypokalemia]Onset: EpisodicGenitourinary symptoms and ill-defined conditions (2 sources)Unspecified symptoms and signs involving the genitourinary system; Translations: [Urinary symptoms ]Onset: 46-19-6519XgdntdvnGbmvzpqx; including migraine (2 sources)Prpkkefi28-04-9456HrwgoibPgehrwhpjfkq complicating ; childbirth and the puerperium (12 sources)Pre-existing essential hypertension complicating , second trimester; Translations: [Unspecified pre-existing hypertension complicating , unspecified trimester]Onset: 338498-90-3317NyrguuxMrhymdyjcgyfg and screening for infectious disease (1 source)Encounter for screening for human immunodeficiency virus [HIV]; Translations: [ENCOUNTER FOR SCREENING FOR HIV]Onset: 91-53-4287Uxlcxjdm Miscellaneous mental health disorders (1 source)Psychological and behavioral factors associated with disorders or diseases classified elsewhere; Translations: [Psychological factors affecting medical condition]Onset: 95-49-1166ZwzmvjuIavf disorders (20 sources)Depressive disorder; Translations: [Depression]91-48-5025ZrzqofrXqsf wounds of head; neck; and trunk (2 sources)Open wound of abdomen; Translations: [Unspecified open wound of abdominal wall, unspecified quadrant without penetration into peritoneal cavity, initial encounter]91-40-1240FpjznwfuMwgfk acquired deformities (1 source)Contracture of joint of left ankle; Translations: [Contracture, left ankle]39-02-4563DkzxbkvGozyo aftercare (3 sources)Postoperative visit; Translations: [Encounter for other specified surgical aftercare]60-23-3841JhctlworIgvrn aftercare (2 sources)Wound ; Translations: [Encounter for other specified surgical aftercare]42-48-5593XesekikyFhdmh aftercare (2 sources)Encounter for other specified surgical aftercare; Translations: [Encounter for postoperative wound check]Onset: 03-70-5711LalzypzdXzcza complications of (2 sources)Obesity complicating , unspecified trimester; Translations: [Obesity complicating , unspecified trimester]Onset: 24-70-5384Oykqkyn Other complications of (1 source)Supervision of elderly multigravida, second trimester; Translations: [Supervision of elderly multigravida, second trimester]Onset: 89-69-3573Yvaqungt Other complications of (1 source)Endocrine, nutritional and metabolic diseases complicating , unspecified trimester; Translations: [Endocrine, nutritional and metabolic diseases complicating , unspecified trimester]Onset: 53-25-5630Dizlcaor Other complications of (2 sources)Malformation of placenta, unspecified, unspecified trimester; Translations: [Malformation of placenta, unspecified, unspecified trimester] Onset: 81-63-5943NcupmnfpBmndx connective tissue disease (4 sources)Pain of right lower leg; Translations: [Pain in right lower leg] 03-63-4345SygxtzdbQljjg connective tissue disease (2 sources)Pain of right calf; Translations: [Pain in right lower leg]06-20-2024 EpisodicOther connective tissue disease (2 sources)Tendinitis of right posterior tibial tendon; Translations: [Posterior tibial tendinitis, right leg]61-55-6798NhkeglvdDypja connective tissue disease (7 sources)Disorder of musculoskeletal system; Translations: [Other specified disorders of synovium, right ankle and foot]55-72-4196UvmcdoqjMtwjd endocrine disorders (2 sources)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; Translations: [Hypopituitarism]83-81-7146StbbldbJjkzr gastrointestinal disorders (1 source)Diarrhea, unspecifiedEpisodicOther gastrointestinal disorders (3 sources)History of bariatric surgical procedure; Translations: [Bariatric surgery status]53-03-8442EaeatqvgOgqgy gastrointestinal disorders (3 sources)History of bypass of stomach; Translations: [Bariatric surgery status]73-77-2288YdanivufMlkoj gastrointestinal disorders (3 sources)Bariatric surgery status; Translations: [Bariatric surgery status] Onset: 134205-22-7218IgzposqmEoxyt gastrointestinal disorders (2 sources)Personal history of other diseases of the digestive system; Translations: [S/P hernia repair]Onset: 56-72-3260ZmkkzmuaVishb inflammatory condition of skin (17 sources)Psoriatic arthritis; Translations: [Arthropathic psoriasis, unspecified]Onset: 445673-79-2039ZjowpcuEphoz inflammatory condition of skin (1 source)Arthropathic psoriasis, unspecified; Translations: [Psoriatic arthritis (HCC)]Onset: 73-26-4007XylxindPpyei injuries and conditions due to external causes (6 sources)Injury of right ankle; Translations: [Unspecified injury of right ankle, initial encounter]12-73-7907XwjmqrfmGvmpg injuries and conditions due to external causes (3 sources)Unspecified injury of right ankle, initial encounter; Translations: [Knee, leg, ankle, and foot injury]71-63-7562DzxuoicdKsihh lower respiratory disease (2 sources)Snoring; Translations: [Snoring]35-67-6418ZujmilacUvlah nervous system disorders (2 sources)Poor concentration; Translations: [Attention and concentration deficit]29-24-7470IuwutsaGwgon nervous system disorders (2 sources)Disturbance of attention; Translations: [Attention and concentration deficit]23-99-1111RqcfxbxHqisi nervous system disorders (17 sources)Acute postoperative pain; Translations: [Other acute postprocedural pain]Onset: 902600-83-5428JrmorwypZsgtm nervous system disorders (1 source)Other acute postprocedural pain; Translations: [Acute postoperative pain]Onset: 05-77-6220EunqabkpLhytz non-traumatic joint disorders (6 sources)Ankle pain; Translations: [Pain in right ankle and joints of right foot]60-07-0536MoeomhtdOaidh non-traumatic joint disorders (3 sources)Pain in right ankle and joints of right foot; Translations: [Pain in joint, ankle and foot]39-01-1812SdozdjuqGdbyg non-traumatic joint disorders (4 sources)Instability of joint of right ankle; Translations: [Other instability, right ankle]62-85-7104LyhtjrfeScdnn non-traumatic joint disorders (11 sources)Sinus tarsi syndrome of right ankle; Translations: [Pain in right ankle and joints of right foot]98-13-6069UmglhkuxOeati nutritional; endocrine; and metabolic disorders (10 sources)Morbid obesity; Translations: [Morbid (severe) obesity due to excess calories]Onset: 18-15-9964LubjkotUajyg nutritional; endocrine; and metabolic disorders (20 sources)Body mass index 40+ - severely obese; Translations: [Body mass index (BMI) 40.0-44.9, adult]Onset: 58-00-7311YjlwdxzBecyw nutritional; endocrine; and metabolic disorders (2 sources)Obese class JZC27-99-1611UxdvdiqUhtoo nutritional; endocrine; and metabolic disorders (6 sources)Morbid (severe) obesity due to excess calories; Translations: [Morbid obesity]Onset: 326068-16-2689UdgzeuqShzdc nutritional; endocrine; and metabolic disorders (17 sources)Insulin resistance; Translations: [Insulin resistance]Onset: 976473-61-3746VjfjxhgYocom nutritional; endocrine; and metabolic disorders (17 sources)Severe obesity; Translations: [Class 3 severe obesity without serious comorbidity with body mass index (BMI) of 40.0 to 44.9 in adult, unspecified obesity type (HCC)]Onset: 694617-71-0721QngyjvqCijek nutritional; endocrine; and metabolic disorders (13 sources)Hypophosphatemia; Translations: [Other disorders of phosphorus metabolism]Onset: 243531-09-2131JscxspqQkpfx nutritional; endocrine; and metabolic disorders (2 sources)Body mass index (BMI) 40.0-44.9, adult; Translations: [Class 3 severe obesity without serious comorbidity with body mass index (BMI) of 40.0 to 44.9 in adult, unspecified obesity type (HCC)]Onset: 52-86-0481AlppzclMxhti skin disorders (9 sources)Disorder of scalp; Translations: [Other skin changes]02-28-2024 EpisodicOther skin disorders (4 sources)Other skin changes; Translations: [Keratoderma, acquired]02-28-2024 EpisodicOther skin disorders (3 sources)Eruption; Translations: [Rash and other nonspecific skin eruption] EpisodicPrevious (2 sources)Maternal care for unspecified type scar from previous delivery; Translations: [Maternal care for unspecified type scar from previous delivery]Onset: 57-37-8573RwbogbftVjntxnon codes; unclassified (1 source)Tobacco user; Translations: [Tobacco use]Onset: 56-51-8224Cgoofvwx Residual codes; unclassified (2 sources)Nicotine-filled electronic cigarette lfrg98-31-9076YgphwlvqUxznsltw codes; unclassified (1 source)History of sleeve gastrectomy; Translations: [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]]44-52-7942NbzvylkuNapkjpce codes; unclassified (19 sources)History of hernia repair; Translations: [Other specified postprocedural states]Onset: 015834-47-0310ThkbfoqvZmftppbn codes; unclassified (2 sources)Other specified postprocedural states; Translations: [S/P hernia repair]Onset: 03-82-5470BuogdgthMyjsvux and strains (2 sources)Sprain of right ankle; Translations: [Sprain of unspecified ligament of right ankle, sequela]59-03-2942XqelthmdOjwargjlv-related disorders (2 sources)Nicotine dependence, unspecified, in remission; Translations: [Personal history of tobacco use]Onset: 660740-28-1628EosnsquLziiwhw disorders (20 sources)Hypothyroidism, unspecified; Translations: [Hypothyroidism]Onset: 561827-99-0215UgeieiwDwttgazenouy (20 sources)OB RemindersOnset: 718351-53-4717Ptytzmrhszvu (1 source)Advanced Maternal AgeOnset: 94-11-9625Hjpqsktyyzlo (1 source)Chronic HypertensionOnset: 07-72-6277Psxbjyqrulgc (3 sources)Preprocedural examination otcu73-17-8722Hznkzzhtooef (3 sources)Bariatric Surgery Care CompanionOnset: Unclassified (1 source)NO EVKX77-32-6535Lsxniscrsbhz (1 source)Insulin resistance; Translations: [Insulin resistance]Onset: 40-45-9790Hrsakofqzbbk (1 source)Class 3 severe obesity without serious comorbidity with body mass index (BMI) of 40.0 to 44.9 in adult, unspecified obesity type (HCC); Translations: [Class 3 severe obesity without serious comorbidity with body mass index (BMI) of 40.0 to 44.9 in adult, unspecified obesity type (HCC)]Onset: 42-90-1593Hpedmfohmbgy (1 source)R21 - Rash and other nonspecific skin eruptionUnclassified (1 source)R41.840 - Attention and concentration deficit,F33.2 - Major depressive disorder, recurrent severe without psychotic features Past or Other Problems Problem ClassificationProblemDateDocumented DateEpisodic/ChronicDeficiency and other anemia (1 source)Other iron deficiency anemias; Translations: [Other iron deficiency anemia]Onset: 14-10-0294DfouzjvqOaocfsq and fatigue (3 sources)Fatigue; Translations: [Other fatigue]Onset: EpisodicOther complications of (1 source)Multigravida of advanced maternal age; Translations: [Supervision of elderly multigravida, second trimester]61-78-9401ZtuhenpoQouoy complications of (1 source)Hypothyroidism in ; Translations: [Endocrine, nutritional and metabolic diseases complicating , unspecified trimester]09-22-2023 EpisodicOther lower respiratory disease (1 source)Snoring; Translations: [Snoring]Onset: 92-91-7037GwvnysmfVqyer and delivery including normal (20 sources)Second trimester ; Translations: [Encounter for supervision of normal , unspecified, second trimester]Onset: 08-18-2023 Resolved: 392128-03-7565VcktticsApttu screening for suspected conditions (not mental disorders or infectious disease) (20 sources)Encounter for screening for cardiovascular disorders; Translations: [Encounter for screening for nutritional disorder]Onset: EpisodicResidual codes; unclassified (1 source)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]; Translations: [ACQUIRED ABSENCE OF STOMACH]Onset: 66-68-6224FscryhclTzwakrgztzyh (1 source)History of hernia zxritu15-61-8865Kzyxrswplthv (1 source)Flank pain, bilateralOnset: 06-11-2025 Results Test NameValueInterpretationReference RangeFacilityUrology Office/Clinic Noteon 02-63-7335Uoejjes Office/Clinic NoteUrology Office/Clinic Note Chief Complaint frequency, [...] Urnls Dip Stick Auto w/o Microscopy POC 91786 2. Bilateral flank pain (R10.A3: Flank pain, [...] questions answered. -Obtain YAMILE[facility] KUB at [employer] [facility] [employer], call pt w/ results -If renal stones [...] Hx of gastric bypass in 2016 in [place]. Has had diarrhea since she had her [...] analysis 01/26/23 - CaOx Di - 30%, Boyle 70% Denies gross hematuria or stone events [...] -See #2 -90oz of water daily, add lemon/klamath -Moderate animal protein, increase fruits and vegetables -Limit salt intake Ordered: Urine Culture Urnls Dip Stick Auto w/o Microscopy POC 95143 Follow-up With When Contact Information Bárbara Nguyen PA-C, URL Additional Instructions: F/up pending results Patient Education Kidney Stones, Cjee-yz-Kbez Flank Pain, Adult Urinary Tract Infection, Adult [...] 6 mg oral tab (more content not included)...[facility] Children[facility] HospitalComment on above:Result Comment: Electronically Signed By: Wendy MCNAMARA, Bárbara\.br\Date and Time Signed: 06/11/25 15:41 ESTCNPNon [id number] Telephone (GENHARLAN) TIFFANI ALLISON ([id number]) 1985 F Date Time Provider Department 01/25/25 KHOA SILVEIRA During your visit today, we recorded the following information about you: Khoa Silveira, BRENDA.VETERINARIAN HELPER 01/25/2025 11:30 AM Signed Spoke with Tiffani [...] for abdominal (neuropathic) pain. Khoa Silveira, MSN, IRRIGATION SERVICE TECHNICIAN, WINDOWS SECURITY ENGINEER-C January 25, 2025 11:30 AM Allergies As of Date: 01/25/2025 Noted Allergy Reaction PENICILLINS 10/26/2022 10 - Anaphylaxis 3 - Cough 4 - Hives 9 - Itching 2 - Rash 12 - Shortness of Breath 7 - Swelling 16 - Unknown Comments: Other Reaction(s): throat swelling and hives TOPIRAMATE 01/04/2023 5 - Intolerance Comments: Other Reaction(s): seizures Date Reviewed: 12/28/2024 Reviewed by: [place], Shireen M - Fully Assessed Reason for [...] [T81*11/27/2024 Encounter Status:Closed by KHOA SILVEIRA on 01/25/25[facility] 71-93-3304BCDOHrmfxq Visit (GENALIYAHN) TIFFANI ALLISON ([id number]) 1985 F Date Time Provider Department 12/28/24 [...] dry Temperature: No Drains: No Khoa Silveira APRN.VETERINARIAN HELPER 12/28/2024 11:27 AM Signed [facility] Clinic Date: December [...] concerns with healing wound Khoa Silveira, MSN, VETERINARIAN HELPER December 28, 2024 Referring Provider: ROCIO JEFF [[id number]] Allergies As of Date: 12/28/2024 Noted Allergy Reaction PENICILLINS 10/26/2022 10 - Anaphylaxis 3 - Cough 4 - Hives 9 - Itching 2 - Rash 12 - Shortness of Breath 7 - Swelling 16 - Unknown Comments: Other Reaction(s): throat swelling and hives TOPIRAMATE (more content not included)...NormalMercy Health Fairfield HospitalOV 79-27-5472APKTQbsxlt Visit (GENMary) TIFFANI ALLISON ([id number]) 1985 F Date Time Provider Department 12/14/24 [...] APRN.CNP 12/14/2024 3:25 PM Signed [facility] Clinic Date: December 14, [...] was started on Doxycyline 100 mg BID. Tifafni reports that the wound is improving and [...] from 6.4 cm (more content not included)...Normal [facility] Fair[facility] HospitalPNon 23-62-6490TRYKGpjvplbgc (JENNIFERI) TIFFANI ALLISON ([id number]) 1985 F Date Time Provider Department 12/06/24 [...] appt. Reminded patient of how to reach [facility] or their surgeons office. Patient reminded to seek medical attention if they develop chest pain, a sudden onset of shortness of breath or persistent pain in the calf of their legs - BEST TO ALWAYS present to [facility] hospital where you had your surgery Patient [...] [T81*11/27/2024 Encounter Status:Closed by KRISTI WATTS on 12/06/24[facility] 15-56-4312USWZQazjcr Visit [facility] TIFF[facility] ALLISON ([id number]) 1985 F Date Time Provider Department 12/05/24 [...] blood Temperature: No Drains: Yes Khoa Lux APRN.VETERINARIAN HELPER 12/05/2024 1:10 PM Signed [facility] Clinic Date: December [...] muscle spasms. No fev (more content not included)...NormalPromedica Flower HospitalCNPNon 49-16-2499GCDHOakulyzhu (BMI) TIFFANI ALLISON ([id number]) 1985 F Date Time Provider Department 12/05/24 [...] Assessed Reason for Visit: Post Op Call [[id number]] Prescriptions as of 12/05/2024 - methocarbamol (ROBAXIN) [...] [T81*11/27/2024 Encounter Status:Closed by KRISTI WATTS on 12/05/24[facility] 2000 panelon 22-99-7779Knpfd gap [Moles/Vol]11 mmol/L Normal8-15[facility] on above:Order Comment: Specimen Type: BLOOD SPECIMEN Ordering Facility: [facility] Address: [address] [place], [place] [address]Performed By: #### 50787-4, 27701-29, #### [facility] CLIA [id number] [address] [place] [address] [place] AMERICACalcium [Mass/Vol]8.6 mg/dL Normal8.5-10.2CChillicothe VA Medical Center on above:Order Comment: Specimen Type: BLOOD SPECIMEN Ordering Facility: [facility] Address: [address] [place], [place] [address]Performed By: #### 86785-9, 27701-29, #### [facility] CLIA [id number] [address] [place] [address] [place] AMERICAChloride [Moles/Vol]101 mmol/GHjawpp38-507PodrdkbejOhio State Health System on above:Order Comment: Specimen Type: BLOOD SPECIMEN Ordering Facility: [facility] Address: [address] [place], [place] [address]Performed By: #### 20010-0, 2776-08, #### [facility] CLIA [id number] [address] [place] [address] [place] AMERICACO2 [Moles/Vol]28 mmol/L Mqhuks03-05KilfyrmafOhio State Health System on above:Order Comment: Specimen Type: BLOOD SPECIMEN Ordering Facility: [facility] Address: [address] [place], [place] [id number] By: #### 78713-6, 2776-08, #### [facility] CLIA [id number] [address] [place] [address] [place] AMERICACreatinine [Mass/Vol]0.63 mg/dLNormal0.58-0.96[facility] on above:Order Comment: Specimen Type: BLOOD SPECIMEN Ordering Facility: [facility] Address: [address] [place], [place] [id number] By: #### 17307-4, 2776-08, #### [facility] CLIA [id number] [address] [place] [address] [place] AMERICACreatinine and Glomerular filtration rate.predicted panel (S/P/Bld)117 mL/min/1.73m???Normal>=60[facility] on above:Order Comment: Specimen Type: BLOOD SPECIMEN Ordering Facility: [facility] Address: [address] [place], [place] [id number] Comment: Estimated Glomerular Filtration Rate (eGFR) is [...] not accurately reflect actual GFR.Performed By: #### 36573-4, 2776-08, #### [facility] CLIA [id number] [address] [place] [address] [place] AMERICAGlucose [Mass/Vol]85 mg/dL Ehpekd53-47LaxfxxhjtOhio State Health System on above:Order Comment: Specimen Type: BLOOD SPECIMEN Ordering Facility: [facility] Address: [address] [place] [address]Rhglbi Comment: The [place] [employer] Association (ADA) provides guidance for cutoff [...] Standards of Medical Care in Diabetes 2016, [place] [employer]. Diabetes Care. 2016.39(Suppl 1).Performed By: #### 09603-4, 2776-08, #### [facility] CLIA [id number] [address] [place] [address] [place] AMERICAPotassium [Moles/Vol]3.4 mmol/LLow3.7-5.1CChillicothe VA Medical Center on above:Order Comment: Specimen Type: BLOOD SPECIMEN Ordering Facility: [facility] Address: [address] [place], [place] [address]Performed By: #### 53000-0, 2776-08, #### [facility] CLIA [id number] [address] [place] [address] [place] AMERICASodium [Moles/Vol]140 mmol/L Lgyrhw212-681WgtekvbquOhio State Health System on above:Order Comment: Specimen Type: BLOOD SPECIMEN Ordering Facility: [facility] Address: [address] [place], [place] [address]Performed By: #### 72152-6, 2776-08, #### [facility] CLIA [id number] [address] [place] [address] [place] AMERICAUrea nitrogen [Mass/Vol]6 mg/dLLow7-21[facility] on above:Order Comment: Specimen Type: BLOOD SPECIMEN Ordering Facility: [facility] Address: [address] [place], [place] [address]Performed By: #### 63572-9, 2777-1, 61961-2 #### [facility] CLIA [id number] [address] [place] [address] [place] AMERICACB W Auto Differential panel (Bld)on 72-01-8758Jqqqohtff (Bld) [#/Vol]10*3/uLNormal<0.11CChillicothe VA Medical Center on above:Order Comment: Specimen Type: BLOOD SPECIMENOrdering Facility: [facility] Address:[address] [place], [place] [address]Performed By: #### 50277-6 ####[facility] [id number] [place] [address] [place] AMERICABasophils/100 WBC (Bld)0.2 %NormalOhio State Health System on above:Order Comment: Specimen Type: BLOOD SPECIMENOrdering Facility: [facility] Address:[address] [place], [place] [address]Performed By: #### 80734-7 ####[facility] LABCLIA [id number] [place] [address] [place] AMERICADifferential cell count method Nom (Bld)AutoNormalClevelCorey Hospital on above:Order Comment: Specimen Type: BLOOD SPECIMENOrdering Facility: [facility] Address:[address] [place], [place] [address]Performed By: #### 63402- 8 ####[facility] LABCLIA [id number] [place] [id number] [place] AMERICAEosinophils (Bld) [#/Vol]0.23 10*3/uLNormal<0.46[facility] on above:Order Comment: Specimen Type: BLOOD SPECIMENOrdering Facility: [facility] Address:[address] [place], [place] [address]Performed By: #### 15858-5 ####[facility] LABCLIA [id number] [place] [address] [place] AMERICAEosinophils/100 WBC (Bld)2.8 % NormalOhio State Health System on above:Order Comment: Specimen Type: BLOOD SPECIMENOrdering Facility: [facility] Address:[address] [place], [place] [address]Performed By: #### 59616-9 ####[facility]IA [id number] [place] [address] [place] AMERICAErythrocyte distribution width (RBC) [Ratio]13.4 %Normal 11.5-15.0[facility] on above:Order Comment: Specimen Type: BLOOD SPECIMENOrdering Facility: [facility] Address:[address] [place], [place] [address]Performed By: #### 20614-6 ####[facility] [id number] [address] STATES OF AMERICAHematocrit (Bld) [Volume fraction]35.0 %Low36.0-46.0 [facility] on above:Order Comment: Specimen Type: BLOOD SPECIMENOrdering Facility: [facility] Address:[address] [place], [place] [address]Performed By: #### 30435-5 ####[facility]IA [id number] [place] [address] [place] AMERICAHemoglobin (Bld) [Mass/Vol]11.8 g/mCAlswwg16.5-15.5CChillicothe VA Medical Center on above:Order Comment: Specimen Type: BLOOD SPECIMENOrdering Facility: [facility] Address:[address] [place], [place] [address]Performed By: #### 78646-3 ####[facility]IA [id number] [place] [address] [place] Immature granulocytes (Bld) [#/Vol]0.04 10*3/uLNormal<0.10[facility] on above:Order Comment: Specimen Type: BLOOD SPECIMENOrdering Facility: [facility] Address:[address] [place], [place] [address]Performed By: #### 25165-3 ####[facility] LABCLIA [id number] [place] [address] [place] Immature granulocytes/100 WBC (Bld)0.5 %NormalOhio State Health System on above:Order Comment: Specimen Type: BLOOD SPECIMENOrdering Facility: [facility] Address:[address] [place] [address] Performed By: #### 83656-3 ####[facility] LABCLIA [id number] [place] [address] [place] Lymphocytes (Bld) [#/Vol]1.67 10*3/uLNormal1.00-4.00[facility] Comment on above:Order Comment: Specimen Type: BLOOD SPECIMENOrdering Facility: [facility] Address:[address] [place] [address] Performed By: #### 26363-2 ####[facility] [facility] [id number] [place] [address] [place] Lymphocytes/100 WBC (Bld)20.5 %NormalOhio State Health System on above: Order Comment: Specimen Type: BLOOD SPECIMENOrdering Facility: [facility] Address:[address] [place], [place] [address]Performed By: #### 54077- 8 ####[facility] LABCLIA [id number] [place] [address] [place] AMERICAMCH (RBC) [Entitic mass]29.1 pg Wpstym02.0-34.0[facility] on above:Order Comment: Specimen Type: BLOOD SPECIMENOrdering Facility: [facility] Address:[address] [place], [place] [address]Performed By: #### 42879-4 ####[facility]IA [id number] [address] STREETMCHC (RBC) [Mass/Vol]33.7 g/dL Xvotlb70.5-36.0[facility] on above:Order Comment: Specimen Type: BLOOD SPECIMENOrdering Facility: [facility] Address:[address] [place], [place] [address]Performed By: #### 82219-7 ####[facility]IA [id number] [address]REETMCV (RBC) [Entitic vol]86.2 fL Saguur35.0-100.0[facility] on above:Order Comment: Specimen Type: BLOOD SPECIMENOrdering Facility: [facility] Address:[address] [place], [place] [address]Performed By: #### 97162-0 ####[facility] [id number] [place] [address] [place] AMERICAMonocytes (Bld) [#/Vol]0.67 10*3/uLNormal<0.87[facility] on above:Order Comment: Specimen Type: BLOOD SPECIMENOrdering Facility: [facility] Address:[address] [place], [place] [address]Performed By: #### 16805-9 ####[facility]IA [id number] [place] [address] [place] AMERICAMonocytes/100 WBC (Bld)8.2 % NormalOhio State Health System on above:Order Comment: Specimen Type: BLOOD SPECIMENOrdering Facility: [facility] Address:[address] [place], [place] [address]Performed By: #### 83969-8 ####[facility]IA [id number] [place] [address] [place] AMERICANeutrophils (Bld) [#/Vol]5.51 10*3/uLNormal1.45-7.50[facility] on above:Order Comment: Specimen Type: BLOOD SPECIMENOrdering Facility: [facility] Address:[address] [place], [place] [address]Performed By: #### 56796-3 ####[facility] LABCLIA [id number] [place] [address] [place] AMERICANeutrophils/100 WBC (Bld)67.8 %NormalOhio State Health System on above:Order Comment: Specimen Type: BLOOD SPECIMENOrdering Facility: [facility] Address:[address] [place] [address] Performed By: #### 02975-6 ####[facility]IA [id number] [place] [address] [place] Nucleated RBC (Bld) [#/Vol]10*3/uLNormal<0.01[facility] on above:Order Comment: Specimen Type: BLOOD SPECIMENOrdering Facility: [facility] Address:[address] [place] [address] Performed By: #### 00686-1 ####[facility]IA [id number] [place] [address] [place] Nucleated RBC/100 WBC (Bld) [Ratio]0.0 /100 WBCNormalCTriHealth Good Samaritan Hospital Comment on above:Order Comment: Specimen Type: BLOOD SPECIMENOrdering Facility: [facility] Address:[address] [place] [address] Performed By: #### 15613-3 ####[facility]IA [id number] [place] [address] [place] Platelet mean volume (Bld) [Entitic vol]9.9 fLNormal9.0-12.7CChillicothe VA Medical Center on above:Order Comment: Specimen Type: BLOOD SPECIMENOrdering Facility: [facility] Address:[address] [place], [place] [address]Performed By: #### 11711-7 ####[facility]IA [id number] [address] Platelets (Bld) [#/Vol]280 10*3/kZLipwef694-527YmouylmgmOhio State Health System on above:Order Comment: Specimen Type: BLOOD SPECIMENOrdering Facility: [facility] Address:[address] [place] [address] Performed By: #### 46487-1 ####[facility]IA [id number] [address] RBC (Bld) [#/Vol]4.06 10*6/uLNormal3.90-5.20[facility] on above:Order Comment: Specimen Type: BLOOD SPECIMENOrdering Facility: [facility] Address:[address] [place], [place] [address]Performed By: #### 64145-7 ####[facility]IA [id number] [address]ETWBC (Bld) [#/Vol]8.14 10*3/uLNormal3.70-11.00[facility] on above:Order Comment: Specimen Type: BLOOD SPECIMENOrdering Facility: [facility] Address:[address] [place], [place] [address]Performed By: #### 43997-4 ####[facility] [id number] [place] [id number] [facility] CENTERCNDSon 30-32-2340PVYBNTT ID: [id number] Author: JAIMIE CHATTERJEE APRN.VETERINARIAN HELPER Service: General Surgery Author Type: Nurse Practitioner [...] in the PACU and transferred to the [facility] for the remainder of her postoperative care. She was started on IV pain medications. Her hospital course is as follows: 11/24 - POD 1 - APMS consult for pain control. Advanced to phase II bariatric diet. Ramirez removed. 11/25 - Ketamine gtt stopped. Tolerating diet. 11/26 - Weaning [employer] today. 11/27 - Tolerating diet, pain controlled [...] results. CONSULTING TEAMS DURING HOSPITALIZATION: Bariatric surgery, [facility] Treatment Team: Attending Provider: Rocio Jeff MD Consulting: [facility] CENTERMaryellen BARIATRIC SURGERY PATIENT CONDITION AT DISCHARGE: Stable [...] this medication, and follow (more content not included)...NormalHarrison Community HospitalLTon 06-23-5728VBVIEAHRXV ID: [id number] Author: YAN RANDALL MD Service: General Surgery Author Type: Resident Type: Consults Filed: 11/27/2024 07:30 Note Text: Bariatric Surgery Pager: [phone] SURGERY CONSULT PROGRESS NOTE Patient Name: Tiffani Allison Date: November 27, 2024 ASSESSMENT AND PLAN: Tiffani Allison is a 39 year old PMHx notable for GERD, recent smoker, hypothyroidism, prior sleeve gastrectomy and s/p laparoscopic PEHR and conversion to RYGB, with abdominal wall reconstruction on 11/23/24. Overall patient doing well in the immediate post op period. [employer] is off, and pain slightly better controlled but using IV narcotic. Pending patient's pain toleration, okay to DC from Bariatric perspective. Recommendations: - Phase II diet - Wean [employer] as able - Encourage protein shake intake - wean O2 as able - Monitor for diet toleration - continue lovenox - ambulation encouraged - IS and SCDs - okay to DC from bariatric perspective Appreciate hernia surgery team care. Plan of care discussed with staff. Yan Randall MD General Surgery Resident Bariatric Surgery Pager: [phone] On nights (6 pm to 6 am) and on Weekends/Holidays, please page the on-call pager: [phone] 7:21 AM, 11/27/2024 --- INTERVAL: No acute events overnight. [employer] and ketamin off Tolerating 1.5 protein shakes [...] 8.5 8.0* -- Imaging Reviewed No new imaging.NormalPromedica Flower HospitalMagnesium SerPl-mCncon 11-27-2024 Magnesium [Mass/Vol]2.0 mg/dLNormal1.7-2.3CTriHealth Good Samaritan HospitalComment on above:Order Comment: Specimen Type: BLOOD SPECIMEN [facility] Address: [address] [place], [place] [address]Performed By: #### 49275-9, 2777-1, 89621-4 #### [facility] CLIA [id number] [address] [place], [place] [address] [address] [place] AMERICAPhosphate SerPl-mCncon 92-60-6799Zijanmkiu [Mass/Vol]2.9 mg/dLNormal2.7-4.8CTriHealth Good Samaritan Hospital Comment on above:Order Comment: Specimen Type: BLOOD SPECIMEN [facility] Address: [address] [place], [place] [address]Performed By: #### 12134-4, 2777-1, 31068-7 #### [facility] CLIA [id number] [address] [place] [address] [address]THERAPY NTon 11-27-2024 THERAPY NTHNO ID: [id number] Author: JESSI MALONEY OTR/Ajith Service: Occupational Therapy Author Type: Occupational Therapist Type: Therapy (PT/OT/Speech/Resp) Filed: 11/27/2024 08:13 Note Text: THERAPY COMMUNICATION NOTE SERVICE DATE: 11/27/2024 ROOM: [place] [address] Physical therapy consult received. Chart reviewed. No [...] Allison DATE: November 27, 2024 TIME: 8:13 AMNormalPromedica Flower HospitalBasic metabolic 2000 panelon 92-87-8562Gpdfh gap [Moles/Vol]10 mmol/LNormal8-15[facility] Comment on above:Order Comment: Specimen Type: BLOOD SPECIMEN [facility] Address: [address] [place], [place] [address]Performed By: #### 45793-1, 27701-29, #### [facility] CLIA [id number] [address] [place] [address] [place] AMERICACalcium [Mass/Vol]8.7 mg/dL Normal8.5-10.2CChillicothe VA Medical Center on above:Order Comment: Specimen Type: BLOOD SPECIMEN [facility] Address: [address] [place], [place] [address]Performed By: #### 90173-9, 27701-29, #### [facility] CLIA [id number] [address] [place] [address] [place] AMERICAChloride [Moles/Vol]102 mmol/FRlgcjd47-013SdizhyyexOhio State Health System on above:Order Comment: Specimen Type: BLOOD SPECIMEN [facility] Address: [address] [place], [place] [address]Performed By: #### 17903-9, 2776-08, #### [facility] CLIA [id number] [address] [place] [address] [place] AMERICACO2 [Moles/Vol]28 mmol/L Riigsc45-38AexbivcrrOhio State Health System on above:Order Comment: Specimen Type: BLOOD SPECIMEN [facility] Address: [address] [place], [place] [address]Performed By: #### 75734-0, 2776-08, #### [facility] CLIA [id number] [address] [place], [place] [address] [place] AMERICACreatinine [Mass/Vol]0.58 mg/dLNormal0.58-0.96[facility] on above:Order Comment: Specimen Type: BLOOD SPECIMEN [facility] Address: [address] [place], [place] [address]Performed By: #### 40907-3, 2777-, #### [facility] CLIA [id number] [address] [place] [address] [place] AMERICACreatinine and Glomerular filtration rate.predicted panel (S/P/Bld)119 mL/min/1.73m???Normal>=60[facility] on above:Order Comment: Specimen Type: BLOOD SPECIMEN [facility] Address: [address] [place], [place] [address]Result Comment: Estimated Glomerular Filtration Rate (eGFR) is [...] not accurately reflect actual GFR.Performed By: #### 09631-4, 2777-, #### [facility] CLIA [id number] [address] [place] [address] [place] AMERICAGlucose [Mass/Vol]89 mg/dL Divrwf46-56FvxyiliriOhio State Health System on above:Order Comment: Specimen Type: BLOOD SPECIMEN [facility] Address: [address] [place], [place] [address]Result Comment: The [place] Diabetes Association (ADA) provides guidance for cutoff [...] Standards of Medical Care in Diabetes 2016, [place] [employer]. Diabetes Care. 2016.39(Suppl 1).Performed By: #### 31512-7, 2776-08, #### [facility] CLIA [id number] [address] [place] [address] [place] AMERICAPotassium [Moles/Vol]3.6 mmol/LLow3.7-5.1CChillicothe VA Medical Center on above:Order Comment: Specimen Type: BLOOD SPECIMEN [facility] Address: [address] [place], [place] [address]Performed By: #### 91037-1, 2776-08, #### [facility] IA [id number] [address] [place] [address] [place] AMERICASodium [Moles/Vol]140 mmol/L Wijaoz123-196KyncgxocxOhio State Health System on above:Order Comment: Specimen Type: BLOOD SPECIMEN [facility] Address: [address] [place], [place] [address]Performed By: #### 45483-6, 2776-08, #### [facility] IA [id number] [address] [place] [address] [place] AMERICAUrea nitrogen [Mass/Vol]5 mg/dLLow7-21[facility] on above:Order Comment: Specimen Type: BLOOD SPECIMEN [facility] Address: [address] [place], [place] [address]Performed By: #### 94315-3, 2776-08, #### [facility] [place] [id number] [address] [place], [place] [address] [place] AMERICACB W Auto Differential panel (Bld)on 22-36-4318Nvmpwdexi (Bld) [#/Vol]0.03 10*3/uLNormal<0.11CChillicothe VA Medical Center on above:Order Comment: Specimen Type: BLOOD SPECIMEN [facility] Address: [address] [place], [place] [address]Performed By: #### 21615-8 #### [facility] CLIA [id number] [address] [place] [address] [place] AMERICABasophils/100 WBC (Bld)0.4 % NormalOhio State Health System on above:Order Comment: Specimen Type: BLOOD SPECIMEN [facility] Address: [address] [place], [place] [address]Performed By: #### 99994-7 #### [facility] CLIA [id number] [address] [place] [address] [place] AMERICADifferential cell count method Nom (Bld)AutoNormalCChillicothe VA Medical Center on above:Order Comment: Specimen Type: BLOOD SPECIMEN [facility] Address: [address] [place], [place] [address]Performed By: #### 74434-9 #### [facility] [place] [id number] [address] [place] [address] [place] AMERICAEosinophils (Bld) [#/Vol] 0.16 10*3/uLNormal<0.46[facility] on above:Order Comment: Specimen Type: BLOOD SPECIMEN [facility] Address: [address] [place], [place] [address]Performed By: #### 82985-4 #### [facility] CLIA [id number] [address] [place] [address] [place]ICAEosinophils/100 WBC (Bld)1.9 %NormalOhio State Health System on above:Order Comment: Specimen Type: BLOOD SPECIMEN [facility] Address: [address] [place], [place] [address]Performed By: #### 11117-2 #### [facility] CLIA [id number] [address] [place] [address] [place] AMERICAErythrocyte distribution width (RBC) [Ratio]13.5 %Waecte66.5-15.0[facility] on above:Order Comment: Specimen Type: BLOOD SPECIMEN [facility] Address: [address] [place], [place] [address]Performed By: #### 74366-1 #### [facility] CLIA [id number] [address] [place] [address] [place] AMERICAHematocrit (Bld) [Volume fraction]36.6 %Xfntee54.0-46.0[facility] on above:Order Comment: Specimen Type: BLOOD SPECIMEN [facility] Address: [address] [place], [place] [address]Performed By: #### 76668-0 #### [facility] CLIA [id number] [address] [place] [address] [place] AMERICAHemoglobin (Bld) [Mass/Vol] 12.3 g/mAJtywwt74.5-15.5CChillicothe VA Medical Center on above:Order Comment: Specimen Type: BLOOD SPECIMEN [facility] Address: [address] [place], [place] [address]Performed By: #### 14398-8 #### [facility] CLIA [id number] [address] [place] [address] [place] AMERICAImmature granulocytes (Bld) [#/Vol]0.03 10*3/uLNormal<0.10[facility] on above:Order Comment: Specimen Type: BLOOD SPECIMEN [facility] Address: [address] [place], [place] [address]Performed By: #### 54703-5 #### [facility] CLIA [id number] [address] [place] [address] [place] AMERICAImmature granulocytes/100 WBC (Bld)0.4 %NormalOhio State Health System on above:Order Comment: Specimen Type: BLOOD SPECIMEN [facility] Address: [address] [place], [place] [address]Performed By: #### 16766-7 #### [facility] CLIA [id number] [address] [place] [address] [place] AMERICALymphocytes (Bld) [#/Vol] 1.16 10*3/uLNormal1.00-4.00[facility] on above:Order Comment: Specimen Type: BLOOD SPECIMEN [facility] Address: [address] [place], [place] [address]Performed By: #### 39433-0 #### [facility] CLIA [id number] [address] [place] [address] [place] AMERICALymphocytes/100 WBC (Bld) 14.0 %NormalOhio State Health System on above:Order Comment: Specimen Type: BLOOD SPECIMEN [facility] Address: [address] [place], [place] [address]Performed By: #### 60222-0 #### [facility] CLIA [id number] [address] [place], [place] [address] [employer] OF AMERICAMCH (RBC) [Entitic mass]29.3 clQgzosz66.0-34.0[facility] on above:Order Comment: Specimen Type: BLOOD SPECIMEN [facility] Address: [address] [place], [place] [address]Performed By: #### 33403-9 #### [facility] CLIA [id number] [address] [place], [place] [address] [employer] OF [facility] REGIONHC (RBC) [Mass/Vol]33.6 g/dNDnhpdd53.5-36.0[facility] on above:Order Comment: Specimen Type: BLOOD SPECIMEN [facility] Address: [address] [place], [place] [address]Performed By: #### 43161-9 #### [facility] CLIA [id number] [address] [place] [address] [place] AMERICAMCV (RBC) [Entitic vol]87.1 qQQhqott36.0-100.0[facility] on above:Order Comment: Specimen Type: BLOOD SPECIMEN [facility] Address: [address] [place], [place] [address]Performed By: #### 96778-8 #### [facility] CLIA [id number] [address] [place] [address] [place] AMERICAMonocytes (Bld) [#/Vol]0.57 10*3/uLNormal<0.87[facility] on above:Order Comment: Specimen Type: BLOOD SPECIMEN [facility] Address: [address] [place], [place] [address]Performed By: #### 02940-7 #### [facility] CLIA [id number] [address] [place] [address] [place] AMERICAMonocytes/100 WBC (Bld)6.9 % NormalOhio State Health System on above:Order Comment: Specimen Type: BLOOD SPECIMEN [facility] Address: [address] [place], [place] [address]Performed By: #### 29591-4 #### [facility] CLIA [id number] [address] [place] [address] [place] AMERICANeutrophils (Bld) [#/Vol] 6.32 10*3/uLNormal1.45-7.50[facility] on above:Order Comment: Specimen Type: BLOOD SPECIMEN [facility] Address: [address] [place], [place] [address]Performed By: #### 23677-4 #### [facility] CLIA [id number] [address] [place] [address] [place] AMERICANeutrophils/100 WBC (Bld) 76.4 %NormalOhio State Health System on above:Order Comment: Specimen Type: BLOOD SPECIMEN [facility] Address: [address] [place], [place] [address]Performed By: #### 39746-3 #### [facility] CLIA [id number] [address] [place] [address] [place] AMERICANucleated RBC (Bld) [#/Vol] 10*3/uLNormal<0.01[facility] on above:Order Comment: Specimen Type: BLOOD SPECIMEN [facility] Address: [address] [place], [place] [address]Performed By: #### 42212-7 #### [facility] CLIA [id number] [address] [place] [address] [place] AMERICANucleated RBC/100 WBC (Bld) [Ratio]0.0 /100 WBCNormalCChillicothe VA Medical Center on above:Order Comment: Specimen Type: BLOOD SPECIMEN [facility] Address: [address] [place], [place] [address]Performed By: #### 01546-0 #### [facility] CLIA [id number] [address] [place] [address] [place] AMERICAPlatelet mean volume (Bld) [Entitic vol]10.0 fLNormal9.0-12.7CChillicothe VA Medical Center on above: Order Comment: Specimen Type: BLOOD SPECIMEN [facility] Address: [address] [place], [place] [address]Performed By: #### 56058-6 #### [facility] CLIA [id number] [address] [place], [place] [address] [place] AMERICAPlatelets (Bld) [#/Vol]232 10*3/wUGtgrtx210-881WurzdkyexOhio State Health System on above:Order Comment: Specimen Type: BLOOD SPECIMEN [facility] Address: [address] [place], [place] [address]Performed By: #### 36916-2 #### [facility] CLIA [id number] [address] [place], [place] [address] (Bld) [#/Vol]4.20 10*6/uLNormal3.90-5.20[facility] on above:Order Comment: Specimen Type: BLOOD SPECIMEN [facility] Address: [address] [place], [place] [address]Performed By: #### 28428-2 #### [facility] CLIA [id number] [address] [place], [place] [address]W (Bld) [#/Vol]8.27 10*3/uLNormal3.70-11.00[facility] on above:Order Comment: Specimen Type: BLOOD SPECIMEN [facility] Address: [address] [place], [place] [address]Performed By: #### 17626-9 #### [facility] [place] [id number] [address] [place], [place] [address]CONSUMountainside [facility] 07-46-0681LYMPGBC HNO ID: [id number] Author: YAN RANDALL MD Service: General Surgery Author Type: Resident Type: Consults Filed: 11/26/2024 07:25 Note Text: Attestation signed by Noel Fitzgerald MD at 11/26/2024 5:20 PM Bariatric Surgery Fellow Attestation: Progressing well from bariatric perspective, tolerating water and protein shakes. Still has decent amount of pain, ket drip stopped and plan to wean off [employer] today, transition to orals only. Patient seen and examined with the resident team. Agree with the plan as stated. Bariatric Surgery Pager: [phone] SURGERY CONSULT PROGRESS NOTE Patient Name: Tiffani [...] gtt timed out but continues to use [employer] heavily. Will continue MM pain control, and continued encouragement of protein intake. Recommendations: - Phase II diet - Wean [employer] as able - Encourage protein shake intake - wean O2 as able - Monitor for diet toleration - continue lovenox - ambulation encouraged - IS and SCDs Appreciate hernia surgery team care. Plan of care discussed with staff. Yan Randall MD General Surgery Resident Bariatric Surgery Pager: [phone] On nights (6 pm to 6 am) and on Weekends/Holidays, please page the on-call pager: [phone] 7:23 AM, 11/26/2024 --- INTERVAL: No acute [...] 8.0* -- 8.3* Imaging Reviewed No new imaging.NormalPromedica Flower HospitalMagnesium SerPl-mCncon 11-26-2024 Magnesium [Mass/Vol]2.0 mg/dLNormal1.7-2.3CTriHealth Good Samaritan HospitalComment on above:Order Comment: Specimen Type: BLOOD SPECIMEN [facility] Address: [address] [place], [place] [address]Performed By: #### 28259-1, 2777-1, #### [facility] CLIA [id number] [address] [place] [address] [place] AMERICAPhosphate SerPl-mCncon 63-45-7234Ldktsfifk [Mass/Vol]2.5 mg/dLLow2.7-4.8CTriHealth Good Samaritan Hospital Comment on above:Order Comment: Specimen Type: BLOOD SPECIMEN [facility] Address: [address] [place], [place] [address]Performed By: #### [id number], [id number]-, #### [facility] CLIA [id number] [address] [place] [address] [place] AMERICABasic metabolic 2000 panelon [id number] gap [Moles/Vol]8 mmol/LNormal8-15[facility] Comment on above:Order Comment: Specimen Type: BLOOD SPECIMEN Ordering Facility: [facility] Address: [address] [place] [id number] By: #### 59464-8, 2776-08, #### [facility] CLIA [id number] [address] [place] [address] [place] OF AMERICACalcium [Mass/Vol]8.5 mg/dL Normal8.5-10.2CCh[facility]ic[facility] on above:Order Comment: Specimen Type: BLOOD SPECIMEN Ordering Facility: [facility] Address: [address] [place] [address] 380[address]Nzqwrvjvr By: #### 89696-9, 2776-08, #### [facility] CLIA [id number] [address] [place] [address] [place] OF AMERICAChloride [Moles/Vol]106 mmol/QEfizhr54-394OwuwojdvqOhio State Health System on above:Order Comment: Specimen Type: BLOOD SPECIMEN Ordering Facility: [facility] Address: [address] [place] [address] 165[address]Byabqoqnf By: #### 95284-4, 2776-08, #### [facility] CLIA [id number] [address] [place] [address] [place] AMERICACO2 [Moles/Vol]27 mmol/L Yezrvv92-19SiamrqmchOhio State Health System on above:Order Comment: Specimen Type: BLOOD SPECIMEN Ordering Facility: [facility] Address: [address] [place] [address] 27861Vmgbyblxq By: #### 56388-9, 2776-08, #### [facility] CLIA [id number] [address] [place] [address] [place] AMERICACreatinine [Mass/Vol]0.53 mg/dLLow0.58-0.96[facility] on above:Order Comment: Specimen Type: BLOOD SPECIMEN Ordering Facility: [facility] Address: [address] [place] [address] 32984Vkyhuulee By: #### 74643-7, 2777-1, #### [facility] CLIA [id number] [address] [place] [address] [place] AMERICACreatinine and Glomerular filtration rate.predicted panel (S/P/Bld)122 mL/min/1.73m???Normal>=60[facility] on above:Order Comment: Specimen Type: BLOOD SPECIMEN Ordering Facility: [facility] Address: [address] [place], [place] [id number] Comment: Estimated Glomerular Filtration Rate (eGFR) is [...] not accurately reflect actual GFR.Performed By: #### 15750-4, 2777, #### [facility] CLIA [id number] [address] [place], [place] [address] [place] AMERICAGlucose [Mass/Vol]96 mg/dL Vveakg89-80TeeqagstwOhio State Health System on above:Order Comment: Specimen Type: BLOOD SPECIMEN Ordering Facility: [facility] Address: [address] [place] [address] 279[address]Bnystp Comment: The [place] Diabetes Association (ADA) provides guidance for cutoff [...] Standards of Medical Care in Diabetes 2016, [place] [employer]. Diabetes Care. 2016.39(Suppl 1).Performed By: #### 10302-0, 2776-, #### [facility] CLIA [id number] [address] [place] [address] [place] AMERICAPotassium [Moles/Vol]4.1 mmol/LNormal3.7-5.1CChillicothe [facility] on above:Order Comment: Specimen Type: BLOOD SPECIMEN Ordering Facility: [facility] Address: [address] [place], [place] [address]Performed By: #### 98053-6, 2776-, #### [facility] CLIA [id number] [address] [place] [address] [place] AMERICASodium [Moles/Vol]141 mmol/L Nntwod585-388ByxregejuOhio State Health System on above:Order Comment: Specimen Type: BLOOD SPECIMEN Ordering Facility: [facility] Address: [address] [place], [place] [address]Performed By: #### 07021-6, 2776-08, #### [facility] CLIA [id number] [address] [place] [address] [place] AMERICAUrea nitrogen [Mass/Vol]5 mg/dLLow7-21[facility] on above:Order Comment: Specimen Type: BLOOD SPECIMEN Ordering Facility: [facility] Address: [address] [place], [place] [address]Performed By: #### 50700-5, 2776-08, #### [facility] CLIA [id number] [address] [place], [place] [address] [place] AMERICAAnion gap [Moles/Vol]8 mmol/LNormal8-15[facility] on above:Order Comment: Specimen Type: BLOOD SPECIMEN Ordering Facility: [facility] Address: [address] [place], [place] [address]Performed By: #### 24259-4, 46881- 2, 2776- #### [facility] CLIA [id number] [address] [place] [address] [place] AMERICACalcium [Mass/Vol]8.0 mg/dL Low8.5-10.2CChillicothe [facility] on above:Order Comment: Specimen Type: BLOOD SPECIMEN Ordering Facility: [facility] Address: [address] [place], [place] [address]Performed By: #### 95631-8, 25107- 2, 277-1 #### [facility] CLIA [id number] [address] [place] [address] [place] AMERICAChloride [Moles/Vol]108 mmol/DDfox05-523IqiclpinkOhio State Health System on above:Order Comment: Specimen Type: BLOOD SPECIMEN Ordering Facility: [facility] Address: [address] [place], [place] [address]Performed By: #### 19488-0, 18924- 2, 277-1 #### [facility] CLIA [id number] [address] [place] [address] [place] AMERICACO2 [Moles/Vol]25 mmol/L Fkisfq47-39GgzcmdwlqOhio State Health System on above:Order Comment: Specimen Type: BLOOD SPECIMEN Ordering Facility: [facility] Address: [address] [place], [place] [address]Performed By: #### 02206-8, 79586- 2, 277-1 #### [facility] CLIA [id number] [address] [place] [address] [place] AMERICACreatinine [Mass/Vol]0.47 mg/dLLow0.58-0.96[facility] on above:Order Comment: Specimen Type: BLOOD SPECIMEN Ordering Facility: [facility] Address: [address] [place], [place] [address]Performed By: #### 34361-1, 08634- 2, 2777-1 #### [facility] CLIA [id number] [address] [place] [address] [place] AMERICACreatinine and Glomerular filtration rate.predicted panel (S/P/Bld)125 mL/min/1.73m???Normal>=60[facility] on above:Order Comment: Specimen Type: BLOOD SPECIMEN Ordering Facility: [facility] Address: [address] [place], [place] [id number] Comment: Estimated Glomerular Filtration Rate (eGFR) is [...] not accurately reflect actual GFR.Performed By: #### 34539-3, 79443-7, 2776-1 #### [facility] CLIA [id number] [address] [place], [place] [address] [place] AMERICAGlucose [Mass/Vol]76 mg/dL Btqebv83-60CwjizxqmqOhio State Health System on above:Order Comment: Specimen Type: BLOOD SPECIMEN Ordering Facility: [facility] Address: [address] [place], [place] [address]Result Comment: The [place] Diabetes Association (ADA) provides guidance for cutoff [...] Standards of Medical Care in Diabetes 2016, [place] [employer]. Diabetes Care. 2016.39(Suppl 1).Performed By: #### 04493-3, 03146- 2, 7-1 #### [facility] CLIA [id number] [address] [place], [place] [address] [place] AMERICAPotassium [Moles/Vol]6.7 mmol/LCritically high3.7-5.1CChillicothe [facility] on above:Order Comment: Specimen Type: BLOOD SPECIMEN Ordering Facility: [facility] Address: [address] [place], [place] [address]Performed By: #### 31977-2, 92047- 2, 277-1 #### [facility] CLIA [id number] [address] [place] [address] [place] AMERICASodium [Moles/Vol]141 mmol/L Defdmf859-982TnhszqkyeOhio State Health System on above:Order Comment: Specimen Type: BLOOD SPECIMEN Ordering Facility: [facility] Address: [address] [place], [place] [address]Performed By: #### 61546-1, 63438- 2, 277- #### [facility] CLIA [id number] [address] [place] [address] [place] AMERICAUrea nitrogen [Mass/Vol]4 mg/dLLow7-21[facility] on above:Order Comment: Specimen Type: BLOOD SPECIMEN Ordering Facility: [facility] Address: [address] [place], [place] [address]Performed By: #### 40929-4, 01017- 2, 2776- #### [facility] CLIA [id number] [address] [place] [address] [place] AMERICACB W Auto Differential panel (Bld)on 94-93-1044Oltgggboj (Bld) [#/Vol]10*3/uLNormal<0.11CCh[facility]ic[facility] on above:Order Comment: Specimen Type: BLOOD SPECIMEN Ordering Facility: [facility] Address: [address] [place], [place] [address]Performed By: #### 95678-4, 2777-1, 56751-4 #### [facility] CLIA [id number] [address] [place] [address] [place] AMERICABasophils/100 WBC (Bld)0.3 % NormalOhio State Health System on above:Order Comment: Specimen Type: BLOOD SPECIMEN Ordering Facility: [facility] Address: [address] [place], [place] [address]Performed By: #### 37161-7, 2776-08, #### [facility] CLIA [id number] [address] [place] [address] [place] AMERICADifferential cell count method Nom (Bld)AutoNormalCChillicothe VA Medical Center on above:Order Comment: Specimen Type: BLOOD SPECIMEN Ordering Facility: [facility] Address: [address] [place], [place] [address]Performed By: #### 74658-8, 2776-08, #### [facility] CLIA [id number] [address] [place] [address] [place] AMERICAEosinophils (Bld) [#/Vol] 0.11 10*3/uLNormal<0.46[facility] on above:Order Comment: Specimen Type: BLOOD SPECIMEN Ordering Facility: [facility] Address: [address] [place], [place] [address]Performed By: #### 36719-3, 2776-08, #### [facility] CLIA [id number] [address] [place] [address] [place] AMERICAEosinophils/100 WBC (Bld)1.4 %NormalOhio State Health System on above:Order Comment: Specimen Type: BLOOD SPECIMEN Ordering Facility: [facility] Address: [address] [place], [place] [address]Performed By: #### 08954-7, 2776-08, #### [facility] CLIA [id number] [address] [place], [place] [address] [place] AMERICAErythrocyte distribution width (RBC) [Ratio]13.9 %Tgmmje30.5-15.0[facility] on above:Order Comment: Specimen Type: BLOOD SPECIMEN Ordering Facility: [facility] Address: [address] [place], [place] [phone] By: #### 31616-0, 27701-29, #### [facility] CLIA [id number] [address] [place] [address] [place] AMERICAHematocrit (Bld) [Volume fraction]33.1 %Low36.0-46.0[facility] on above:Order Comment: Specimen Type: BLOOD SPECIMEN Ordering Facility: [facility] Address: [address] [place], [place] [phone] By: #### 42662-3, 27701-29, #### [facility] CLIA [id number] [address] [place] [address] [place] AMERICAHemoglobin (Bld) [Mass/Vol] 11.0 g/dLLow11.5-15.5CChillicothe [facility] on above:Order Comment: Specimen Type: BLOOD SPECIMEN Ordering Facility: [facility] Address: [address] [place], [place] [address]Performed By: #### 73722-2, 2776-08, #### [facility] CLIA [id number] [address] [place] [address] [place] AMERICAImmature granulocytes (Bld) [#/Vol]0.03 10*3/uLNormal<0.10[facility] on above:Order Comment: Specimen Type: BLOOD SPECIMEN Ordering Facility: [facility] Address: [address] [place], [place] [id number] By: #### 26608-3, 2776-08, #### [facility] CLIA [id number] [address] [place], [place] [address] [place] AMERICAImmature granulocytes/100 WBC (Bld)0.4 %NormalOhio State Health System on above:Order Comment: Specimen Type: BLOOD SPECIMEN Ordering Facility: [facility] Address: [address] [place], [place] [address]Performed By: #### 85216-4, 2776-08, #### [facility] CLIA [id number] [address] [place], [place] [address] [place] OF AMERICALymphocytes (Bld) [#/Vol] 1.13 10*3/uLNormal1.00-4.00[facility] on above:Order Comment: Specimen Type: BLOOD SPECIMEN Ordering Facility: [facility] Address: [address] [place], [place] [address]Performed By: #### 00775-3, 2776-08, #### [facility] CLIA [id number] [address] [place] [address] [place] AMERICALymphocytes/100 WBC (Bld) 14.4 %NormalOhio State Health System on above:Order Comment: Specimen Type: BLOOD SPECIMEN Ordering Facility: [facility] Address: [address] [place], [place] [address]Performed By: #### 05020-2, 2776-08, #### [facility] CLIA [id number] [address] [place], [place] [address] [facility] (RBC) [Entitic mass]29.5 xcVppnif04.0-34.0[facility] on above:Order Comment: Specimen Type: BLOOD SPECIMEN Ordering Facility: [facility] Address: [address] [place], [place] [phone] By: #### 73908-0, 2776-08, #### [facility] CLIA [id number] [address] [place] [address] [facility] (RBC) [Mass/Vol]33.2 g/mMKvmhfr56.5-36.0[facility] on above:Order Comment: Specimen Type: BLOOD SPECIMEN Ordering Facility: [facility] Address: [address] [place], [place] [address]Performed By: #### 17941-5, 2776-08, #### [facility] CLIA [id number] [address] [place] [address] [place] AMERICAMCV (RBC) [Entitic vol]88.7 tIJsczmm17.0-100.0[facility] on above:Order Comment: Specimen Type: BLOOD SPECIMEN Ordering Facility: [facility] Address: [address] [place], [place] [address]Performed By: #### 02288-4, 27701-29, #### [facility] CLIA [id number] [address] [place] [address] [place] AMERICAMonocytes (Bld) [#/Vol]0.62 10*3/uLNormal<0.87[facility] on above:Order Comment: Specimen Type: BLOOD SPECIMEN Ordering Facility: [facility] Address: [address] [place], [place] [address]Performed By: #### 46782-0, 2776-08, #### [facility] CLIA [id number] [address] [place], [place] [address] [place] AMERICAMonocytes/100 WBC (Bld)7.9 % NormalOhio State Health System on above:Order Comment: Specimen Type: BLOOD SPECIMEN Ordering Facility: [facility] Address: [address] [place], [place] [phone] By: #### 87797-5, 2776-08, #### [facility] CLIA [id number] [address] [place], [place] [address] [place] AMERICANeutrophils (Bld) [#/Vol] 5.93 10*3/uLNormal1.45-7.50[facility] on above:Order Comment: Specimen Type: BLOOD SPECIMEN Ordering Facility: [facility] Address: [address] [place], [place] [address]Performed By: #### 11613-2, 2776-08, #### [facility] CLIA [id number] [address] [place], [place] [address] [place] AMERICANeutrophils/100 WBC (Bld) 75.6 %NormalOhio State Health System on above:Order Comment: Specimen Type: BLOOD SPECIMEN Ordering Facility: [facility] Address: [address] [place], [place] [address]Performed By: #### 96314-3, 27701-29, #### [facility] CLIA [id number] [address] [place] [address] [place] AMERICANucleated RBC (Bld) [#/Vol] 10*3/uLNormal<0.01[facility] on above:Order Comment: Specimen Type: BLOOD SPECIMEN Ordering Facility: [facility] Address: [address] [place], [place] [address]Performed By: #### 62806-6, 2776-08, #### [facility] CLIA [id number] [address] [place], [place] [address] [place] AMERICANucleated RBC/100 WBC (Bld) [Ratio]0.0 /100 WBCNormalCChillicothe VA Medical Center on above:Order Comment: Specimen Type: BLOOD SPECIMEN Ordering Facility: [facility] Address: [address] [place], [place] [address]Performed By: #### 93029-0, 2776-08, #### [facility] CLIA [id number] [address] [place], [place] [address] [place] AMERICAPlatelet mean volume (Bld) [Entitic vol]10.2 fLNormal9.0-12.7CChillicothe VA [facility] on above: Order Comment: Specimen Type: BLOOD SPECIMEN Ordering Facility: [facility] Address: [address] [place], [place] [phone] By: #### 55786-5, 2777-1, #### [facility] CLIA [id number] [address] [place] [address] AMERICAPlatelets (Bld) [#/Vol]205 10*3/gQXzxuya147-323UzyqqjqmgOhio State Health System on above:Order Comment: Specimen Type: BLOOD SPECIMEN Ordering Facility: [facility] Address: [address] [place], [place] [address]Performed By: #### 79758-7, 2777-1, #### [facility] CLIA [id number] [address] [place], [place] [address]RB (Bld) [#/Vol]3.73 10*6/uLLow3.90-5.20[facility] on above:Order Comment: Specimen Type: BLOOD SPECIMEN Ordering Facility: [facility] Address: [address] [place], [place] [address]Performed By: #### 46211-8, 27701-29, #### [facility] CLIA [id number] [address] [place], [place] [address]WBC (Bld) [#/Vol]7.84 10*3/uLNormal3.70-11.00[facility] on above:Order Comment: Specimen Type: BLOOD SPECIMEN Ordering Facility: [facility] Address: [address] [place], [place] [address]Performed By: #### 03001-0, 2777-, #### [facility] CLIA [id number] [address] [place], [place] [address] [facility] AMERICACBC panel Auto (Bld)on 36-72-1484Dulaccworqw distribution width (RBC) [Ratio]13.7 %Ieyqaj14.5-15.0 [facility] on above:Order Comment: Specimen Type: BLOOD SPECIMEN Ordering Facility: [facility] Address: [address] [place], [place] [address]Performed By: #### 86476-5, 27701-29, #### [facility] CLIA [id number] [address] [place] [address] [place] AMERICAHematocrit (Bld) [Volume fraction]36.1 %Wmcwhg05.0-46.0[facility] on above:Order Comment: Specimen Type: BLOOD SPECIMEN Ordering Facility: [facility] Address: [address] [place], [place] [address]Performed By: #### 83871-7, 27701-29, #### [facility] CLIA [id number] [address] [place] [address] OF AMERICAHemoglobin (Bld) [Mass/Vol] 12.2 g/gJGfpokq36.5-15.5CChillicothe [facility] on above:Order Comment: Specimen Type: BLOOD SPECIMEN Ordering Facility: [facility] Address: [address] [place], [place] [address]Performed By: #### 56526-3, 2776-08, #### [facility] CLIA [id number] [address] [place], [place] [address]MCH (RBC) [Entitic mass]29.3 lfSmuhqq75.0-34.0[facility] on above:Order Comment: Specimen Type: BLOOD SPECIMEN Ordering Facility: [facility] Address: [address] [place], [place] [address]Performed By: #### 95932-4, 27701-29, #### [facility] CLIA [id number] [address] [place] [address] (RBC) [Mass/Vol]33.8 g/zHKeufwh32.5-36.0[facility] on above:Order Comment: Specimen Type: BLOOD SPECIMEN Ordering Facility: [facility] Address: [address] [place], [place] [address]Performed By: #### 91848-6, 277-, #### [facility] CLIA [id number] [address] [place] [address] [place] AMERICAMCV (RBC) [Entitic vol]86.6 nLGxndll21.0-100.0[facility] on above:Order Comment: Specimen Type: BLOOD SPECIMEN Ordering Facility: [facility] Address: [address] [place], [place] [address]Performed By: #### 40064-3, 27701-29, #### [facility] CLIA [id number] [address] [place] [address] [place] AMERICANucleated RBC (Bld) [#/Vol] 10*3/uLNormal<0.01[facility] on above:Order Comment: Specimen Type: BLOOD SPECIMEN Ordering Facility: [facility] Address: [address] [place], [place] [address]Performed By: #### 26826-7, 2776-08, #### [facility] CLIA [id number] [address] [place] [address] [place] AMERICAPlatelet mean volume (Bld) [Entitic vol]9.6 fLNormal9.0-12.7CChillicothe [facility] on above: Order Comment: Specimen Type: BLOOD SPECIMEN Ordering Facility: [facility] Address: [address] [place], [place] [address]Performed By: #### 79741-9, 27701-29, #### [facility] CLIA [id number] [address] [place] [address] [place] AMERICAPlatelets (Bld) [#/Vol]212 10*3/aBCduelb086-067SwrdlcjvfOhio State Health System on above:Order Comment: Specimen Type: BLOOD SPECIMEN Ordering Facility: [facility] Address: [address] [place], [place] [address]Performed By: #### 40201-9, 2777-1, 27889-0 #### [facility] CLIA [id number] [address] [place], [place] [address]RBC (Bld) [#/Vol]4.17 10*6/uLNormal3.90-5.20[facility] on above:Order Comment: Specimen Type: BLOOD SPECIMEN Ordering Facility: [facility] Address: [address] [place], [place] [address]Performed By: #### 05045-3, 2777-1, 46910-5 #### [facility] CLIA [id number] [address] [place], [place] [address] [facility]ENTERW (d) [#/Vol]8.65 10*3/uLNormal3.70-11.00[facility] on above:Order Comment: Specimen Type: BLOOD SPECIMEN Ordering Facility: [facility] Address: [address] [place], [place] [address]Performed By: #### 40603-5, 2777-1, #### [facility] CLIA [id number] [address] [place], [place] [address]CONSULTon [id number] HNO ID: [id number] Author: YAN RANDALL MD Service: General Surgery Author Type: Resident Type: Consults Filed: 11/25/2024 07:39 Note Text: Bariatric Surgery Pager: [phone] SURGERY CONSULT PROGRESS NOTE Patient Name: Tiffani [...] MD General Surgery Resident Bariatric Surgery Pager: [phone] On nights (6 pm to 6 am) and on Weekends/Holidays, please page the on-call pager: [phone] 7:37 AM, 11/25/2024 --- INTERVAL: No acute [...] CA -- 8.3* Imaging Reviewed No new imaging.NormalHarrison Community HospitalLT PROGon [id number] PROGHNO ID: [id number] Author: JOSE MATTHEWS MD Service: Pain Management [...] IV Pain medications, PO Pain medications, and [employer] bolus Patient Satisfied with Pain Control: No Overnight Pain Interventions: None 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 Current Pain Medications Ordered: -fentanyl [employer] 20 mcg/ml at -acetaminophen 1g q6h -hydromorphone 0.2mg q2h prn -oxycodone liquid 5-10mg q4h prn -ketamine gtt 0.3 mg/kg/hr x (more content not included)...[facility] COM[facility]TEon [id number] COMPLETEVentricular Rate : 71 BPM Atrial Rate : 71 BPM P-R Interval : 146 ms QRS Duration : 94 ms Q-T Interval : 402 ms QTC Calculation([place]) : 436 ms Calculated P [place] : 35 degrees Calculated R [place] : 29 degrees Calculated T [place] : 13 degrees NORMAL SINUS RHYTHM NORMAL ECG Confirmed by DAMIEN ORTEGA MD ([id number]) on 12/13/2024 7:31:45 AM NAME : TIFFANI ALLISON PID : [id number] : 1985 Gender : Female Race : ORD : [id number] Procedure Date : Nov 25 2024 11:40:55 Edit Date : Dec 13 2024 07:31:47 Diagnosis: NORMAL SINUS RHYTHM NORMAL ECG Confirmed by DAMIEN ORTEGA MD ([id number]) on 12/13/2024 7:31:45 AM Test Reason : Hyperkalemia Location : 54 : 1 H051-32 Overread By : DAMIEN ORTEGA MD Edited By : DAMIEN ORTEGA MD Referred By : , Acquired by : Pura KAYEalCTriHealth Good Samaritan HospitalMagnesium SerPl-mCnc on [id number] [Mass/Vol]1.8 mg/dLNormal1.7-2.3CTriHealth Good Samaritan HospitalComment on above:Order Comment: Specimen Type: BLOOD SPECIMEN Ordering Facility: [facility] Address: [address] [place] [place], [place] [address]Performed By: #### 70636-2, 70004- 2, 2777-1 #### [facility] CLIA [id number] [address] [place] [address] [place] OF AMERICAPhosphate SerPl-mCncon 69-11-6641Voaqcmlfu [Mass/Vol]2.1 mg/dLLow2.7-4.8CTriHealth [facility] Comment on above:Order Comment: Specimen Type: BLOOD SPECIMEN Ordering Facility: [facility] Address: [address] [place], [place] [address]Performed By: #### 61191-9, 83078- 2, 2777-1 #### [facility] CLIA [id number] [address] [place] [address] [place] AMERICABasic metabolic 2000 panelon 55-59-2753Cmryg gap [Moles/Vol]10 mmol/LNormal8-15[facility] Comment on above:Order Comment: Specimen Type: BLOOD SPECIMEN Ordering Facility: [facility] Address: [address] [place], [place] [id number] By: #### 59692-4, 277-, #### [facility] CLIA [id number] [address] [place] [address] [place] AMERICACalcium [Mass/Vol]8.3 mg/dL Low8.5-10.2CCh[facility]icothe [facility] on above:Order Comment: Specimen Type: BLOOD SPECIMEN Ordering Facility: [facility] Address: [address] [place], [place] [id number] By: #### 93630-0, 27701-29, #### [facility] CLIA [id number] [address] [place] [address] [place] OF AMERICAChloride [Moles/Vol]108 mmol/JThmf49-512YhgzwfkcpOhio State Health System on above:Order Comment: Specimen Type: BLOOD SPECIMEN Ordering Facility: [facility] Address: [address] [place], [place] [id number] By: #### 92630-2, 27701-29, #### [facility] CLIA [id number] [address] [place] [address] [place] AMERICACO2 [Moles/Vol]24 mmol/L Fzuzkz30-23GsvhxascjOhio State Health System on above:Order Comment: Specimen Type: BLOOD SPECIMEN Ordering Facility: [facility] Address: [address] [place] [address]Morjmkbbb By: #### 44768-0, 2776-08, #### [facility] CLIA [id number] [address] [place], [place] [address] [place] AMERICACreatinine [Mass/Vol]0.59 mg/dLNormal0.58-0.96[facility] on above:Order Comment: Specimen Type: BLOOD SPECIMEN Ordering Facility: [facility] Address: [address] [place], [place] [id number] By: #### 41320-8, 2777-, #### [facility] CLIA [id number] [address] [place] [address] [place] AMERICACreatinine and Glomerular filtration rate.predicted panel (S/P/Bld)118 mL/min/1.73m???Normal>=60[facility] on above:Order Comment: Specimen Type: BLOOD SPECIMEN Ordering Facility: [facility] Address: [address] [place], [place] [id number] Comment: Estimated Glomerular Filtration Rate (eGFR) is [...] not accurately reflect actual GFR.Performed By: #### 33194-1, 2777, #### [facility] CLIA [id number] [address] [place] [address] [place] AMERICAGlucose [Mass/Vol]97 mg/dL Hcbozl39-27OlzveszizOhio State Health System on above:Order Comment: Specimen Type: BLOOD SPECIMEN Ordering Facility: [facility] Address: [address] [place] [address]Dcqude Comment: The [place] Diabetes Association (ADA) provides guidance for cutoff [...] Standards of Medical Care in Diabetes 2016, [place] [employer]. Diabetes Care. 2016.39(Suppl 1).Performed By: #### 44384-4, 27701-29, #### [facility] CLIA [id number] [address] [place] [address] [place] AMERICAPotassium [Moles/Vol]3.9 mmol/LNormal3.7-5.1CChillicothe [facility] on above:Order Comment: Specimen Type: BLOOD SPECIMEN Ordering Facility: [facility] Address: [address] [place], [place] [address]Performed By: #### 63572-2, 27701-29, #### [facility] CLIA [id number] [address] [place] [address] [place] AMERICASodium [Moles/Vol]142 mmol/L Czwalu995-572TbztbehjuOhio State Health System on above:Order Comment: Specimen Type: BLOOD SPECIMEN Ordering Facility: [facility] Address: [address] [place], [place] [address]Performed By: #### 36099-7, 27701-29, #### [facility] IA [id number] [address] [place] [address] [place] AMERICAUrea nitrogen [Mass/Vol]6 mg/dLLow7-21[facility] on above:Order Comment: Specimen Type: BLOOD SPECIMEN Ordering Facility: [facility] Address: [address] [place], [place] [address]Performed By: #### 65781-2, 27701-29, #### [facility] IA [id number] [address] [place], [place] [address] [place] AMERICACB W Auto Differential panel (Bld)on 65-39-9346Nrlwngfkk (Bld) [#/Vol]10*3/uLNormal<0.11CCh[facility]ic[facility] on above:Order Comment: Specimen Type: BLOOD SPECIMEN Ordering Facility: [facility] Address: [address] [place], [place] [address]Performed By: #### 68898-4, 27701-29, #### [facility] CLIA [id number] [address] [place], [place] [address] [place] AMERICABasophils/100 WBC (Bld)0.2 % NormalOhio State Health System on above:Order Comment: Specimen Type: BLOOD SPECIMEN Ordering Facility: [facility] Address: [address] [place], [place] [address]Performed By: #### 71151-5, 27701-29, #### [facility] CLIA [id number] [address] [place], [place] [address] [place] OF AMERICADifferential cell count method Nom (Bld)AutoNormalCChillicothe VA Medical Center on above:Order Comment: Specimen Type: BLOOD SPECIMEN Ordering Facility: [facility] Address: [address] [place], [place] [address]Performed By: #### 17113-1, 2776-08, #### [facility] CLIA [id number] [address] [place] [address] [place] AMERICAEosinophils (Bld) [#/Vol] 10*3/uLNormal<0.46[facility] on above:Order Comment: Specimen Type: BLOOD SPECIMEN Ordering Facility: [facility] Address: [address] [place], [place] [address]Performed By: #### 52577-0, 2776-08, #### [facility] CLIA [id number] [address] [place], [place] [address] [place] AMERICAEosinophils/100 WBC (Bld)0.2 %NormalOhio State Health System on above:Order Comment: Specimen Type: BLOOD SPECIMEN Ordering Facility: [facility] Address: [address] [place], [place] [address]Performed By: #### 83751-2, 27701-29, #### [facility] CLIA [id number] [address] [place] [address] [place] AMERICAErythrocyte distribution width (RBC) [Ratio]13.6 %Uykvcq04.5-15.0[facility] on above:Order Comment: Specimen Type: BLOOD SPECIMEN Ordering Facility: [facility] Address: [address] [place], [place] [address]Performed By: #### 76623-1, 2777-1, #### [facility] CLIA [id number] [address] [place] [address] [place] AMERICAHematocrit (Bld) [Volume fraction]37.2 %Yjkxdd53.0-46.0[facility] on above:Order Comment: Specimen Type: BLOOD SPECIMEN Ordering Facility: [facility] Address: [address] [place], [place] [address]Performed By: #### 45265-8, 2777, #### [facility] CLIA [id number] [address] [place] [address] [place] AMERICAHemoglobin (Bld) [Mass/Vol] 12.6 g/yDYyjpaz72.5-15.5CChillicothe [facility] on above:Order Comment: Specimen Type: BLOOD SPECIMEN Ordering Facility: [facility] Address: [address] [place], [place] [address]Performed By: #### 26503-3, 2777, #### [facility] CLIA [id number] [address] [place] [address] [place] AMERICAImmature granulocytes (Bld) [#/Vol]0.04 10*3/uLNormal<0.10[facility] on above:Order Comment: Specimen Type: BLOOD SPECIMEN Ordering Facility: [facility] Address: [address] [place], [place] [address]Performed By: #### 75372-2, 2777-1, #### [facility] CLIA [id number] [address] [place], [place] [address] [place] AMERICAImmature granulocytes/100 WBC (Bld)0.4 %NormalOhio State Health System on above:Order Comment: Specimen Type: BLOOD SPECIMEN Ordering Facility: [facility] Address: [address] [place], [place] [address]Performed By: #### 51606-2, 2777, #### [facility] CLIA [id number] [address] [place] [address] [place] OF AMERICALymphocytes (Bld) [#/Vol] 0.98 10*3/uLLow1.00-4.00[facility] on above:Order Comment: Specimen Type: BLOOD SPECIMEN Ordering Facility: [facility] Address: [address] [place], [place] [address]Performed By: #### 03521-6, 27701-29, #### [facility] CLIA [id number] [address] [place] [address] [place] AMERICALymphocytes/100 WBC (Bld) 10.0 %NormalOhio State Health System on above:Order Comment: Specimen Type: BLOOD SPECIMEN Ordering Facility: [facility] Address: [address] [place], [place] [address]Performed By: #### 19692-3, 27701-29, #### [facility] IA [id number] [address] [place], [place] [address] [place] AMERICAMCH (RBC) [Entitic mass]29.1 wzKhamnb01.0-34.0[facility] on above:Order Comment: Specimen Type: BLOOD SPECIMEN Ordering Facility: [facility] Address: [address] [place], [place] [address]Performed By: #### 60323-8, 2777, #### [facility] CLIA [id number] [address] [place], [place] [address] [place] [facility]ANY MEDICAL CENTERMCHC (RBC) [Mass/Vol]33.9 g/tMXlnfwu75.5-36.0[facility] on above:Order Comment: Specimen Type: BLOOD SPECIMEN Ordering Facility: [facility] Address: [address] [place], [place] [address]Performed By: #### 28490-5, 2777, #### [facility] CLIA [id number] [address] [place] [address] [place] AMERICAMCV (RBC) [Entitic vol]85.9 cXHzrurl17.0-100.0[facility] on above:Order Comment: Specimen Type: BLOOD SPECIMEN Ordering Facility: [facility] Address: [address] [place], [place] [address]Performed By: #### 68838-6, 27701-29, #### [facility] CLIA [id number] [address] [place] [address] [place] AMERICAMonocytes (Bld) [#/Vol]0.86 10*3/uLNormal<0.87[facility] on above:Order Comment: Specimen Type: BLOOD SPECIMEN Ordering Facility: [facility] Address: [address] [place], [place] [address]Performed By: #### 49379-3, 27701-29, #### [facility] CLIA [id number] [address] [place] [address] [place] AMERICAMonocytes/100 WBC (Bld)8.8 % NormalOhio State Health System on above:Order Comment: Specimen Type: BLOOD SPECIMEN Ordering Facility: [facility] Address: [address] [place], [place] [address]Performed By: #### 15022-6, 27701-29, #### [facility] CLIA [id number] [address] [place] [address] [place] AMERICANeutrophils (Bld) [#/Vol] 7.86 10*3/uLHigh1.45-7.50[facility] on above:Order Comment: Specimen Type: BLOOD SPECIMEN Ordering Facility: [facility] Address: [address] [place], [place] [address]Performed By: #### 85623-8, 2777-1, #### [facility] CLIA [id number] [address] [place] [address] [place] AMERICANeutrophils/100 WBC (Bld) 80.4 %NormalOhio State Health System on above:Order Comment: Specimen Type: BLOOD SPECIMEN Ordering Facility: [facility] Address: [address] [place], [place] [address]Performed By: #### 42332-0, 2777, #### [facility] CLIA [id number] [address] [place] [address] [place] AMERICANucleated RBC (Bld) [#/Vol] 10*3/uLNormal<0.01[facility] on above:Order Comment: Specimen Type: BLOOD SPECIMEN Ordering Facility: [facility] Address: [address] [place], [place] [address]Performed By: #### 31164-6, 2777, #### [facility] CLIA [id number] [address] [place] [address] [place] AMERICANucleated RBC/100 WBC (Bld) [Ratio]0.0 /100 WBCNormalCChillicothe VA Medical Center on above:Order Comment: Specimen Type: BLOOD SPECIMEN Ordering Facility: [facility] Address: [address] [place], [place] [address]Performed By: #### 25264-9, 27701-29, #### [facility] CLIA [id number] [address] [place], [place] [address] [place] OF AMERICAPlatelet mean volume (Bld) [Entitic vol]9.8 fLNormal9.0-12.7CChillicothe [facility] on above: Order Comment: Specimen Type: BLOOD SPECIMEN Ordering Facility: [facility] Address: [address] [place], [place] [address]Performed By: #### 14178-2, 2777-1, 56644-4 #### [facility] CLIA [id number] [address] [place] [address] [place] AMERICAPlatelets (Bld) [#/Vol]256 10*3/zQGyhpts110-948UvdtqecusOhio State Health System on above:Order Comment: Specimen Type: BLOOD SPECIMEN Ordering Facility: [facility] Address: [address] [place], [place] [address]Performed By: #### 36152-5, 2777-1, #### [facility] CLIA [id number] [address] [place] [address] [place] AMERICARBC (Bld) [#/Vol]4.33 10*6/uLNormal3.90-5.20[facility] on above:Order Comment: Specimen Type: BLOOD SPECIMEN Ordering Facility: [facility] Address: [address] [place], [place] [address]Performed By: #### 57745-2, 2777-1, #### [facility] CLIA [id number] [address] [place] [address] [place] AMERICAWBC (Bld) [#/Vol]9.78 10*3/uLNormal3.70-11.00[facility] on above:Order Comment: Specimen Type: BLOOD SPECIMEN Ordering Facility: [facility] Address: [address] [place], [place] [address]Performed By: #### 29618-6, 2777-1, #### [facility] CLIA [id number] [address] [place] [address] OF [facility] MEDICAL CENTERCONSULTon [id number] HNO ID: [id number] Author: YAN RANDALL MD Service: General Surgery Author Type: Resident Type: Consults Filed: 11/24/2024 08:34 Note Text: Bariatric Surgery Pager: [phone] SURGERY CONSULT PROGRESS NOTE Patient Name: Tiffani [...] MD General Surgery Resident Bariatric Surgery Pager: [phone] On nights (6 pm to 6 am) and on Weekends/Holidays, please page the on-call pager: [phone] 6:20 AM, 11/24/2024 --- INTERVAL: No acute [...] Reviewed Imaging Reviewed No new imaging.NormalCleveland Clinic [facility] PROGon 63-89-4945IWXVGOJ PROLUCIANONO ID: [id number] Author: JOSE MATTHEWS MD Service: Anesthesiology Author [...] IV Pain medications, PO Pain medications, and [employer] bolus Patient Satisfied with Pain Control: No Overnight Pain Interventions: Patient started on ketamine infusion at 0.3mg/kg/hr 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 Patient having increased pain this AM due to [employer] occlusion (now fixed). Has not been using oral meds yet. Current Pain Medications Ordered: (more content not included)...NormalPromedica Flower HospitalMagnesium SerPl-mCncon 53-31-1380Ssyfoguhw [Mass/Vol]2.2 mg/dL Normal1.7-2.3CRegency Hospital Companyment on above:Order Comment: Specimen Type: BLOOD SPECIMEN Ordering Facility: [facility] Address: [address] [place] [address]Dwjlcwaxs By: #### 42084-6, 2777-1, 15307-4 #### [facility] CLIA [id number] [address] [place], [place] [address] [place] AMERICAPT EDon [id number] EDHNO ID: [id number] Author: MILANA SAEZ DTR Service: Nutrition Therapy Author Type: Digital Product Specialist Type: Patient Education Filed: 11/24/2024 16:13 Note [...] DATE: November 24, 2024 TIME: 4:12 PM PAGER:NormalPromedica Flower HospitalPhosphate SerPl-mCncon 64-59-6086Jrfgsysvh [Mass/Vol]3.0 mg/dLNormal2.7-4.8CTriHealth Good Samaritan [facility] Comment on above:Order Comment: Specimen Type: BLOOD SPECIMEN Ordering Facility[facility] Address: [address] [place], [place] [address]Performed By: #### 55622-7, 2777-, #### [facility] IA [id number] [address] [place], [place] [address] [place] OF AMERICAANES POSTPROC EVALon 44-50-7715XVQU POSTPROC EVALHNO ID: [id number] Author: LESA STARKEY MD Service: ? Author Type: Anesthesiologist Type: Anesthesia Postprocedure Evaluation Filed: 11/23/2024 17:36 Note Text: POST ANESTHESIA EVALUATION NOTE : 1985 Procedure Summary Date: 11/23/24 Room / Location: [address] Anesthesia Start: 724 Anesthesia Stop: 1731 [...] November 23, 2024 TIME: 5:36 PM CSN: [id number] Medical [facility] [place] PRE-OPon 30-40-5456JOYJ PRE-OPHNO ID: [id number] Author: DELORES ROQUE MD Service: ? Author [...] November 23, 2024 TIME: 7:27 AM CSN: [id number] County Hospital OP NOTon [id number] OP NOTHNO ID: [id number] Author: MARCOS SANCHEZ MD Service: General Surgery Author Type: Resident Type: Brief Op Note Filed: 11/23/2024 17:04 Note Text: GENERAL SURGERY BRIEF OP NOTE LOG ID: [id number] Surgery/Procedure Date: 11/23/2024 Incision/Procedure Start Time: 8:33 AM Incision Close/Procedure End Time: 4:58 PM Surgeon(s) and Facial Operator(s): Surgeons and Role: Panel 1: * Rocio [...] 23, 2024 TIME: 4:58 PM PAGER/CONTACT #: [phone] Medical Center OP NOTHNO ID: [id number] Author: NOEL FITZGERALD MD Service: General Surgery Author Type: Fellow Type: Brief Op Note Filed: 11/23/2024 15:58 Note Text: BARIATRIC SURGERY BRIEF OP NOTE LOG ID: [id number] Surgery/Procedure Date: 11/23/2024 Incision/Procedure Start Time: 8:33 AM Incision Close/Procedure End Time: 3:56 PM Surgeon(s) and Facial Operator(s): Surgeons and Role: Panel 1: * Rocio [...] 23, 2024 TIME: 3:56 PM PAGER/CONTACT #: [phone] Memorial Hospital CONFIRM BLOOD TYPEon 26-72-7468DSCCAmcgfgDyqlcdwagUniversity Hospitals [facility] on above:Order Comment: Specimen Type: BLOOD SPECIMEN Ordering Facility[facility] Address: [address] [place], [place] [address]Performed By: #### 15640-8 #### [facility] CLIA [id number] [address] [place] [address] [place] [address] [place] AMERICARh Nom (Bld)NegativeNormal [facility] on above:Order Comment: Specimen Type: BLOOD SPECIMEN Ordering Facility: [facility] Address: [address] [place], [place] [address]Performed By: #### 15802-9 #### [facility] MATIAS [id number] [address] [place] [address] [address]REETCONSULTon [id number] HNO ID: [id number] Author: JOSE MATTHEWS MD Service: Pain Management Author Type: Resident Type: Consults Filed: 11/24/2024 15:55 Note Text: Attestation signed by Jose Matthews MD at 11/24/2024 3:55 PM Attending Note I evaluated the patient and personally participated in the bermudez components. I agree with the resident's findings and plan with the following revisions and/or additions: [employer] was occluding per patient and loved one in room. Nursing arranging to change [employer]. Continue ketamine for 48 hour course total [...] IV Pain medications, PO Pain medications, and [employer] bolus Patient does not have a history [...] in NaCl (is (more content not included)... NormalShelby [facility] Hospital NOon [id number] NOHNO ID: [id number] Author: AYSE GRISSOM MD Service: General Surgery Author Type: Physician Type: Operative Report Filed: 12/18/2024 08:38 Note Text: OPERATIVE/PROCEDURE REPORT LOG ID: [id number] Surgery/Procedure Date: 11/23/2024 Incision/Procedure Start Time: 8:33 AM Incision Close/Procedure End Time: 5:03 PM Surgeon(s)/Proceduralist(s) and Facial Operator(s): Surgeons and Role: Panel 1: * Rocio [...] gastric pouch was fashi (more content not included)...NormalPromedica Flower HospitalOPERATIVE NO HNO ID: [id number] Author: ROCIO JEFF MD Service: General Surgery Author Type: Physician Type: Operative Report Filed: 11/26/2024 08:55 Note Text: [facility] - Operative Report [address] [address] [place] TIFFANI ALLISON : 1985 AGE: 39. SEX: F PATIENT TYPE: [place] [facility] [place] [facility] LOCATION: [id number] ATTENDING PHYSICIAN: Rocio Jeff M.D. CSN NUMBER: [id number] DATE OF SURGERY/PROCEDURE: 11/23/2024 INCISION/PROCEDURE START TIME: 8:33 AM INCISION CLOSE/PROCEDURE END TIME: 5:03 PM PREOPERATIVE DIAGNOSIS: Incisional hernia and paraesophageal hernia. POSTOPERATIVE DIAGNOSIS: Incisional hernia and paraesophageal hernia. SURGEON: Rocio Jeff M.D. CONSULTING SALES MANAGER: Dr. Marcos Sanchez. SURGERY/PROCEDURE: Open left posterior [...] the anterior fascia in (more content not included)...NormalProMedica [facility] Hospital BLOOD GASES WITH IONIZED MAGNESIUMon 04-20-0155CXNC DEFICIT, VENOUS>-8Sqkkni-0-7RmnuocwheMercy Health Kings Mills Hospitalment on above:Order Comment: Specimen Type: BLOOD SPECIMEN Ordering Facility[facility] Address: [address] [place], [place] [address]Performed By: #### 71464-1, 2777, #### [facility] CLIA [id number] [address] [place] [address] [place] AMERICACalcium.ionized (Bld) [Mass/Vol]1.04 mmol/LLow1.08-1.30[facility] on above: Order Comment: Specimen Type: BLOOD SPECIMEN Ordering Facility: [facility] Address: [address] [place], [place] [address]Performed By: #### 46654-9, 2777, #### [facility] CLIA [id number] [address] [place] [address] [place] AMERICACalcium.ionized adjusted to pH 7.4 (BldA) [Moles/Vol]1.04 mmol/LLow1.08-1.30[facility] Comment on above:Order Comment: Specimen Type: BLOOD SPECIMEN Ordering Facility: [facility] Address: [address] [place], [place] [address]Performed By: #### 94426-1, 27701-29, #### [facility] CLIA [id number] [address] [place] [address] [place] AMERICACarboxyhemoglobin (BldV) [Mass fraction]2.1 %High0.0-2.0[facility] on above:Order Comment: Specimen Type: BLOOD SPECIMEN Ordering Facility: [facility] Address: [address] [place], [place] [id number] Comment: Carboxyhemoglobin Reference Range for Smokers: 2.0-8.0%Performed By: #### 42191-5, 2776-08, #### [facility] CLIA [id number] [address] [place], [place] [address] [place] AMERICACO2 (BldV) [Partial pressure]39 mm[Hg]Ela78-08CyxxjblheOhio State Health System on above:Order Comment: Specimen Type: BLOOD SPECIMEN Ordering Facility: [facility] Address: [address] [place], [place] [address]Performed By: #### 87049-4, 2776-08, #### [facility] CLIA [id number] [address] [place] [address] [place] adjusted to patient's actual temperature (BldV) [Partial pressure]39 [id number] State Health System on above:Order Comment: Specimen Type: BLOOD SPECIMEN Ordering Facility: [facility] Address: [address] [place], [place] [address]Performed By: #### 62978-9, 2776-08, #### [facility] CLIA [id number] [address] [place], [place] [id number] [place] AMER[place]AGlucose [Mass/Vol]166 mg/dL Dunl06-250JzuefgcooOhio State Health System on above:Order Comment: Specimen Type: BLOOD SPECIMEN Ordering Facility: [facility] Address: [address] [place], [place] [address]Performed By: #### 73340-9, 2776-08, #### [facility] CLIA [id number] [address] [place] [address] [place] OF AMERICAHCO3 (Bld) [Moles/Vol]24 mmol/BBodhej54-90TgjrwyqetOhio State Health System on above:Order Comment: Specimen Type: BLOOD SPECIMEN Ordering Facility: [facility] Address: [address] [place], [place] [address]Performed By: #### 23919-6, 27701-29, #### [facility] CLIA [id number] [address] [place] [address] [place] AMERICAHematocrit (Bld) [Volume fraction]40.2 %Raqabe48.0-46.0[facility] on above:Order Comment: Specimen Type: BLOOD SPECIMEN Ordering Facility: [facility] Address: [address] [place], [place] [address]Performed By: #### 22056-4, 27701-29, #### [facility] CLIA [id number] [address] [place] [address] [place] AMERICAHemoglobin (Bld) [Mass/Vol] 13.1 g/pOHsarvc24.5-15.5CChillicothe [facility] on above:Order Comment: Specimen Type: BLOOD SPECIMEN Ordering Facility: [facility] Address: [address] [place], [place] [address]Performed By: #### 87180-5, 2776-08, #### [facility] CLIA [id number] [address] [place], [place] [address] [place] OF AMERICALactate [Moles/Vol]1.8 mmol/LNormal0.5-2.2CChillicothe VA Medical Center on above:Order Comment: Specimen Type: BLOOD SPECIMEN Ordering Facility: [facility] Address: [address] [place], [place] [address]Performed By: #### 51176-1, 27701-29, #### [facility] CLIA [id number] [address] [place], [place] [address] [place] AMERICAMagnesium [Moles/Vol]0.63 mmol/LHigh0.45-0.60[facility] on above:Order Comment: Specimen Type: BLOOD SPECIMEN Ordering Facility: [facility] Address: [address] [place], [place] [address]Performed By: #### 77921-6, 27701-29, #### [facility] CLIA [id number] [address] [place] [address] [place] AMERICAMethemoglobin (Bld) [Mass fraction]1.2 %Normal0.0-1.5CChillicothe [facility] on above:Order Comment: Specimen Type: BLOOD SPECIMEN Ordering Facility: [facility] Address: [address] [place], [place] [address]Performed By: #### 77527-5, 27701-29, #### [facility] CLIA [id number] [address] [place] [address] [place] AMERICAOxygen (BldV) [Partial pressure]115 mm[Hg]Vlws19-29BftfhfjpzOhio State Health System on above:Order Comment: Specimen Type: BLOOD SPECIMEN Ordering Facility: [facility] Address: [address] [place], [place] [address]Performed By: #### 72952-4, 27701-29, #### [facility] CLIA [id number] [address] [place] [address] [place] AMERICAOxygen adjusted to patient's actual temperature (BldV) [Partial pressure]115 nxQpRvin63-84ZqydxrhydOhio State Health System on above:Order Comment: Specimen Type: BLOOD SPECIMEN Ordering Facility: [facility] Address: [address] [place], [place] [address]Performed By: #### 44149-0, 27701-29, #### [facility] CLIA [id number] [address] [place] [address] [place] AMERICAOxygen saturation in Venous blood99 %Ubvk66-24KmqzjnnfaOhio State Health System on above:Order Comment: Specimen Type: BLOOD SPECIMEN Ordering Facility: [facility] Address: [address] [place], [place] [id number] By: #### 38198-0, 2777-1, #### [facility] CLIA [id number] [address] [place] [address] [place] AMERICAOxyhemoglobin (BldV) [Mass fraction]95 %Ovee43-97DiylsjwxkOhio State Health System on above:Order Comment: Specimen Type: BLOOD SPECIMEN Ordering Facility: [facility] Address: [address] [place], [place] [address]Performed By: #### 71539-6, 2777-1, #### [facility] CLIA [id number] [address] [place] [address] [place] AMERICApH (BldV)7.40 [pH]Normal 7.32-7.42[facility] on above:Order Comment: Specimen Type: BLOOD SPECIMEN Ordering Facility: [facility] Address: [address] [place], [place] [address]Performed By: #### 15449-1, 2777-1, #### [facility] CLIA [id number] [address] [place] [address] [place] AMERICApH adjusted to patient's actual temperature (BldV)7.97Pqyucq3.32-7.42[facility] on above:Order Comment: Specimen Type: BLOOD SPECIMEN Ordering Facility: [facility] Address: [address] [place], [place] [address]Performed By: #### 42566-7, 2777-, #### [facility] CLIA [id number] [address] [place] [address] [place] AMERICAPotassium [Moles/Vol]4.4 mmol/LNormal3.5-5.0[facility] on above:Order Comment: Specimen Type: BLOOD SPECIMEN Ordering Facility: [facility] Address: [address] [place], [place] [address]Performed By: #### 79419-0, 2777-1, #### [facility] CLIA [id number] [address] [place] [address] [place] AMERICASodium [Moles/Vol]137 mmol/L Cuhbce519-757FemzcxezwPromedica Flower HospitalComment on above:Order Comment: Specimen Type: BLOOD SPECIMEN Ordering Facility: [facility] Address: [address] [place], [place] [address], [place] [address]Vymtqnkjq By: #### 75427-9, 2777-1, #### [facility] CLIA [id number] [address] [place], [place] [address] [place] AMERICACNPNon [id number] Telephone (JENNIFERI) TIFFANI ALLISON ([id number]) 1985 F Date Time Provider Department 11/09/24 KRISTI WATTS During your visit today, we recorded the following information about you: Kristi Watts RN 11/09/2024 1:24 PM Signed [facility] [...] - Stop all ASA and NSAID products, Roslyn 3 fish oil, herbal products such as [...] - Ale video assigned. 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 - Patient case reviewed. All nutrition appointments completed, psychology clearance obtained, surgeon visit and procedure type verified, medical optimization obtained and all testing complete. Does patient have Con ABO? Yes, patient has Con ABO. [facility] [employer] - a research program mentioned [...] tachycardia (HCC) [ (more content not included)...Normal [facility]ica Flower HospitalActivated partial thromboplastin time (aPTT) in platelet poor plasma by coagulation aon 91-65-7576bNRX Coag (PPP) [Time] Activated partial thromboplastin time (aPTT) in platelet poor plasma by coagulation a23.0-32.4FMartin Memorial HospitalBasophils Auto (Bld) [#/Vol]on 28-32-3071Dfhygfwys (Bld) [#/Vol]Automated basophil count<0.11 [facility] HospitalBasophils/100 WBC Auto (Bld)on 11-06-2024 Basophils/100 WBC (Bld)Automated basophil %[facility] Blood manual differential comment interpretation narrativeon 22-95-4272Qgfyno differential comment Asa (Bld) [Interp]Blood manual differential comment interpretation narrativeFirUniversity Hospitals Samaritan Medical CenterCBC W Auto Differential panel (Bld)on 46-84-5559Kmqpcojyl (Bld) [#/Vol]0.04 10*3/uLNormal<0.11CCh[facility]ic[facility] on above:Order Comment: Specimen Type: BLOOD SPECIMEN Ordering Facility: [facility] Address: [address] [place], [place] [address]Performed By: #### 01790-5, 27701-29, #### [facility] CLIA [id number] [address] [place] [address] [place] AMERICABasophils/100 WBC (Bld)0.4 % NormalOhio State Health System on above:Order Comment: Specimen Type: BLOOD SPECIMEN Ordering Facility: [facility] Address: [address] [place], [place] [address]Performed By: #### 85053-2, 27701-29, #### [facility] CLIA [id number] [address] [place] [address] [place] AMERICADifferential cell count method Nom (Bld)AutoNormalCChillicothe VA Medical Center on above:Order Comment: Specimen Type: BLOOD SPECIMEN Ordering Facility: [facility] Address: [address] [place], [place] [address]Performed By: #### 17963-4, 27701-29, #### [facility] CLIA [id number] [address] [place], [place] [address] [place] AMERICAEosinophils (Bld) [#/Vol] 0.12 10*3/uLNormal<0.46[facility] on above:Order Comment: Specimen Type: BLOOD SPECIMEN Ordering Facility: [facility] Address: [address] [place], [place] [address]Performed By: #### 27586-0, 27701-29, #### [facility] CLIA [id number] [address] [place], [place] [address] [place] AMERICAEosinophils/100 WBC (Bld)1.1 %NormalOhio State Health System on above:Order Comment: Specimen Type: BLOOD SPECIMEN Ordering Facility: [facility] Address: [address] [place], [place] [address]Performed By: #### 27235-2, 27701-29, #### [facility] CLIA [id number] [address] [place], [place] [address] [place] AMERICAErythrocyte distribution width (RBC) [Ratio]13.9 %Xlenxm24.5-15.0[facility] on above:Order Comment: Specimen Type: BLOOD SPECIMEN Ordering Facility: [facility] Address: [address] [place], [place] [address]Performed By: #### 15558-1, 27701-29, #### [facility] CLIA [id number] [address] [place] [address] [place] AMERICAHematocrit (Bld) [Volume fraction]43.4 %Owpwqz83.0-46.0[facility] on above:Order Comment: Specimen Type: BLOOD SPECIMEN Ordering Facility: [facility] Address: [address] [place], [place] [address]Performed By: #### 44765-8, 27701-29, #### [facility] CLIA [id number] [address] [place], [place] [address] [place] AMERICAHemoglobin (Bld) [Mass/Vol] 14.5 g/jGMpvznz31.5-15.5CChillicothe VA [facility] Center on above:Order Comment: Specimen Type: BLOOD SPECIMEN Ordering Facility: [facility] Address: [address] [place], [place] [address]Performed By: #### 98109-3, 2777-1, #### [facility] CLIA [id number] [address] [place], [place] [address] [place] AMERICAImmature granulocytes (Bld) [#/Vol]0.04 10*3/uLNormal<0.10[facility] on above:Order Comment: Specimen Type: BLOOD SPECIMEN Ordering Facility: [facility] Address: [address] [place], [place] [address]Performed By: #### 32480-6, 2777, #### [facility] CLIA [id number] [address] [place], [place] [address] [place] AMERICAImmature granulocytes/100 WBC (Bld)0.4 %NormalOhio State Health System on above:Order Comment: Specimen Type: BLOOD SPECIMEN Ordering Facility: [facility] Address: [address] [place], [place] [address]Performed By: #### 15351-9, 2777, #### [facility] CLIA [id number] [address] [place], [place] [address] [place] AMERICALymphocytes (Bld) [#/Vol] 2.51 10*3/uLNormal1.00-4.00[facility] on above:Order Comment: Specimen Type: BLOOD SPECIMEN Ordering Facility: [facility] Address: [address] [place], [place] [address]Performed By: #### 48916-1, 27701-29, #### [facility] CLIA [id number] [address] [place], [place] [address] [place] AMERICALymphocytes/100 WBC (Bld) 22.3 %NormalOhio State Health System on above:Order Comment: Specimen Type: BLOOD SPECIMEN Ordering Facility: [facility] Address: [address] [place], [place] [address]Performed By: #### 86239-8, 277-, #### [facility] CLIA [id number] [address] [place] [address] (RBC) [Entitic mass]28.3 uaFzrgma76.0-34.0[facility] on above:Order Comment: Specimen Type: BLOOD SPECIMEN Ordering Facility: [facility] Address: [address] [place], [place] [address]Performed By: #### 78860-0, 27701-29, #### [facility] CLIA [id number] [address] [place], [place] [address]HC (RBC) [Mass/Vol]33.4 g/rXYoxzmd81.5-36.0[facility] on above:Order Comment: Specimen Type: BLOOD SPECIMEN Ordering Facility: [facility] Address: [address] [place], [place] [address]Performed By: #### 23929-3, 27701-29, #### [facility] CLIA [id number] [address] [place] [address] (RBC) [Entitic vol]84.8 iGLbilhc25.0-100.0[facility] on above:Order Comment: Specimen Type: BLOOD SPECIMEN Ordering Facility: [facility] Address: [address] [place], [place] [address]Performed By: #### 94210-5, 27701-29, #### [facility] CLIA [id number] [address] [place], [place] [address]Monocytes (Bld) [#/Vol]0.78 10*3/uLNormal<0.87[facility] on above:Order Comment: Specimen Type: BLOOD SPECIMEN Ordering Facility: [facility] Address: [address] [place], [place] [address]Performed By: #### 05887-9, 27701-29, #### [facility] CLIA [id number] [address] [place] [address] [place] AMERICAMonocytes/100 WBC (Bld)6.9 % NormalOhio State Health System on above:Order Comment: Specimen Type: BLOOD SPECIMEN Ordering Facility: [facility] Address: [address] [place], [place] [address]Performed By: #### 16074-6, 27701-29, #### [facility] CLIA [id number] [address] [place] [address] [place] AMERICANeutrophils (Bld) [#/Vol] 7.76 10*3/uLHigh1.45-7.50[facility] on above:Order Comment: Specimen Type: BLOOD SPECIMEN Ordering Facility: [facility] Address: [address] [place], [place] [address]Performed By: #### 13463-1, 27701-29, #### [facility] CLIA [id number] [address] [place] [address] [place] AMERICANeutrophils/100 WBC (Bld) 68.9 %NormalOhio State Health System on above:Order Comment: Specimen Type: BLOOD SPECIMEN Ordering Facility: [facility] Address: [address] [place] [address]Vcaeugxxz By: #### 36391-0, 2776-08, #### [facility] CLIA [id number] [address] [place] [address] [place] AMERICANucleated RBC (Bld) [#/Vol] 10*3/uLNormal<0.01[facility] on above:Order Comment: Specimen Type: BLOOD SPECIMEN Ordering Facility: [facility] Address: [address] [place], [place] [address]Performed By: #### 96298-2, 2776-08, #### [facility] CLIA [id number] [address] [place], [place] [address] [place] AMERICANucleated RBC/100 WBC (Bld) [Ratio]0.0 /100 WBCNormalCChillicothe VA Medical Center on above:Order Comment: Specimen Type: BLOOD SPECIMEN Ordering Facility: [facility] Address: [address] [place], [place] [address]Performed By: #### 73411-1, 27701-29, #### [facility] CLIA [id number] [address] [place], [place] [address] [place] AMERICAPlatelet mean volume (Bld) [Entitic vol]10.1 fLNormal9.0-12.7CChillicothe VA Medical Center on above: Order Comment: Specimen Type: BLOOD SPECIMEN Ordering Facility: [facility] Address: [address] [place], [place] [address]Performed By: #### 19820-0, 2776-08, #### [facility] CLIA [id number] [address] [place] [address] [place] AMERICAPlatelets (Bld) [#/Vol]250 10*3/wTSoyaqc384-160CpypwbejbOhio State Health System on above:Order Comment: Specimen Type: BLOOD SPECIMEN Ordering Facility: [facility] Address: [address] [place], [place] [address]Performed By: #### 80256-0, 2776-08, #### [facility] CLIA [id number] [address] [place], [place] [address] [place] AMERICARBC (Bld) [#/Vol]5.12 10*6/uLNormal3.90-5.20[facility] on above:Order Comment: Specimen Type: BLOOD SPECIMEN Ordering Facility: [facility] Address: [address] [place], [place] [address]Performed By: #### 65269-2, 277-, #### [facility] CLIA [id number] [address] [place] [address] [place] AMERICAWBC (Bld) [#/Vol]11.25 10*3/uLHigh3.70-11.00Promedica Flower HospitalComhawthorn center on above:Order Comment: Specimen Type: BLOOD SPECIMEN Ordering Facility: [facility] Address: [address] [place], [place] [address]Performed By: #### 45333-1, 2777-, #### [facility] CLIA [id number] [address] [place], [place] [address]CNOVon 36-99-6132KFWMUtbnfj Visit (GENHARLAN) TIFFANI ALLISON ([id number]) 1985 F Date Time Provider Department 11/06/24 11:00 AM REINALDO MENDOZA During your visit today, we recorded the following information about you: Reinaldo Mendoza, PhD 11/06/2024 4:26 PM Signed [facility] Name: Tiffani Allison MR#: [id number] Date: 11/06/2024 Time: 1 hour Referred by: [...] Reinaldo Webb, Ph.D. Referring Provider: KHOA SILVEIRA [[id number]] Allergies As of Date: 11/06/2024 Noted Allergy [...] obesity (HCC) [E66.01] Order(s):CONSULT TO [facility] [[id number]] Order #: [id number]: 1 Prescriptions as of 11/06/2024 - DULoxetine [...] comorbid*11/06/2024 Encounter Status:Closed by REINALDO MENDOZA on 11/06/24NoalCRegency Hospital Companyprehensive metabolic 2000 panelon 96-45-2708Gggrnqe [Mass/Vol]4.1 g/dLNormal3.9-4.9CChillicothe VA [facility] on above:Order Comment: Specimen Type: BLOOD SPECIMEN Ordering Facility: [facility] Address: [address] [place], [place] [address]Performed By: #### 45521-4 #### [facility] CLIA [id number] [address] [place] [address] [place] AMERICAALP [Catalytic activity/Vol] 69 U/KGfeitv15-938XqsgopaddOhio State Health System on above:Order Comment: Specimen Type: BLOOD SPECIMEN Ordering Facility: [facility] Address: [address] [place], [place] [address]Performed By: #### 19075-4 #### [facility] CLIA [id number] [address] [place], [place] [address] [place] AMERICAALT [Catalytic activity/Vol] 36 U/LNormal7-38[facility] on above:Order Comment: Specimen Type: BLOOD SPECIMEN Ordering Facility: [facility] Address: [address] [place], [place] [address]Performed By: #### 33372-2 #### [facility] CLIA [id number] [address] [place] [address] [place] AMERICAAnion gap [Moles/Vol]12 mmol/LNormal8-15[facility] on above:Order Comment: Specimen Type: BLOOD SPECIMEN Ordering Facility: [facility] Address: [address] [place], [place] [address]Performed By: #### 72588-2 #### [facility] CLIA [id number] [address] [place] [address] [place] AMERICAAST [Catalytic activity/Vol] 23 U/NLhkvqv74-38ErhxuszbwOhio State Health System on above:Order Comment: Specimen Type: BLOOD SPECIMEN Ordering Facility: [facility] Address: [address] [place], [place] [address]Performed By: #### 83395-5 #### [facility] CLIA [id number] [address] [place] [address] [place] AMERICABilirubin [Mass/Vol]0.5 mg/dLNormal0.2-1.3CChillicothe VA [facility] Center on above:Order Comment: Specimen Type: BLOOD SPECIMEN Ordering Facility: [facility] Address: [address] [place], [place] [address]Performed By: #### 14533-4 #### [facility] CLIA [id number] [address] [place] [address] [place] AMERICACalcium [Mass/Vol]9.0 mg/dL Normal8.5-10.2CChillicothe VA Medical Center on above:Order Comment: Specimen Type: BLOOD SPECIMEN Ordering Facility: [facility] Address: [address] [place], [place] [address]Performed By: #### 27675-1 #### [facility] CLIA [id number] [address] [place] [address] [place] AMERICAChloride [Moles/Vol]104 mmol/GFajbwb78-295KnzzbjyxvOhio State Health System on above:Order Comment: Specimen Type: BLOOD SPECIMEN Ordering Facility: [facility] Address: [address] [place], [place] [address]Performed By: #### 10209-4 #### [facility] CLIA [id number] [address] [place] [address] [place] AMERICACO2 [Moles/Vol]26 mmol/L Nyycdl74-44TuajcpaocOhio State Health System on above:Order Comment: Specimen Type: BLOOD SPECIMEN Ordering Facility: [facility] Address: [address] [place], [place] [address]Performed By: #### 80902-4 #### [facility] [place] [id number] [address] [place] [address] [place] [facility] MEDICAL CENTERCreatinine [Mass/Vol]0.67 mg/dLNormal0.58-0.96[facility] on above:Order Comment: Specimen Type: BLOOD SPECIMEN Ordering Facility: [facility] Address: [address] [place], [place] [address]Performed By: #### 74259-6 #### [facility] [place] [id number] [address] [place] [address] [place] AMERICACreatinine and Glomerular filtration rate.predicted panel (S/P/Bld)115 mL/min/1.73m???Normal>=60[facility] on above:Order Comment: Specimen Type: BLOOD SPECIMEN Ordering Facility: [facility] Address: [address] [place], [place] [address]Result Comment: Estimated Glomerular Filtration Rate (eGFR) is [...] not accurately reflect actual GFR.Performed By: #### 18515-5 #### [facility] IA [id number] [address] [place] [address] [place] AMERICAGlucose [Mass/Vol]130 mg/dL Lwei82-38JwyecucrgOhio State Health System on above:Order Comment: Specimen Type: BLOOD SPECIMEN Ordering Facility: [facility] Address: [address] [place], [place] [address]Result Comment: The [place] [employer] (ADA) provides guidance for cutoff [...] Standards of Medical Care in Diabetes 2016, [place] [employer]. Diabetes Care. 2016.39(Suppl 1).Performed By: #### 88704-1 #### [facility] CLIA [id number] [address] [place] [address] [place] AMERICAPotassium [Moles/Vol]4.0 mmol/LNormal3.7-5.1CChillicothe VA Medical Center on above:Order Comment: Specimen Type: BLOOD SPECIMEN Ordering Facility: [facility] Address: [address] [place], [place] [address]Performed By: #### 00178-0 #### [facility] CLIA [id number] [address] [place] [address] [place] AMERICAProtein [Mass/Vol]6.2 g/dL Low6.3-8.0[facility] on above:Order Comment: Specimen Type: BLOOD SPECIMEN Ordering Facility: [facility] Address: [address] [place], [place] [address]Performed By: #### 81511-1 #### [facility] CLIA [id number] [address] [place] [address] [place] AMERICASodium [Moles/Vol]142 mmol/L Geludq154-260ZcnqcksqrOhio State Health System on above:Order Comment: Specimen Type: BLOOD SPECIMEN Ordering Facility: [facility] Address: [address] [place], [place] [address]Performed By: #### 97789-2 #### [facility] IA [id number] [address] [place] [address] [place] AMERICAUrea nitrogen [Mass/Vol]9 mg/dLNormal7-21[facility] on above:Order Comment: Specimen Type: BLOOD SPECIMEN Ordering Facility: [facility] Address: [address] [place], [place] [address]Performed By: #### [id number] #### [facility] [place] [id number] [address] [place] [address] [place] OF AMERICAECG COMPLETEon [id number] COMPLETEVentricular Rate : 75 BPM Atrial Rate : 75 BPM P-R Interval : 148 ms QRS Duration : 98 ms Q-T Interval : 406 ms QTC Calculation(Bazett) : 453 ms Calculated P [place] : 39 degrees Calculated R [place] : 40 degrees Calculated T [place] : 40 degrees NORMAL SINUS RHYTHM NORMAL ECG Confirmed by MD YAZ, PhD, BATSHEVA ([id number]) on 11/13/2024 11:14:22 AM NAME : TIFFANI ALLISON PID : [id number] : 1985 Gender : Female Race : ORD : [id number] Procedure Date : Nov 06 2024 09:44:52 Edit Date : Nov 13 2024 11:14:24 Diagnosis: NORMAL SINUS RHYTHM NORMAL ECG Confirmed by MD YAZ, PhD, BATSHEVA ([id number]) on 11/13/2024 11:14:22 AM Test Reason : Location : 119 : A17 Overread By : MD YAZ, PhD,BATSHEVA Edited By : MD YAZ, PhD,BATSHEVA Referred By : KHOA SILVEIRA Acquired by : ELIECER WEBBClinton Memorial HospitalEosinophils/100 WBC Auto (Bld)on 31-34-6019Njklclvxhes/100 WBC (Bld)Automated eosinophil %[facility] HospitalErythrocyte distribution width Auto (RBC) [Ratio]on 77-28-9914Adhfosikkpt distribution width (RBC) [Ratio]Erythrocyte distribution width [Ratio] by Automated count11.5-15.0[facility] HISTORY PHYSICALon 64-56-8534VJMAFLB PHYSICALHNO ID: [id number] Author: BELA BANEGAS PA-C Service: ? Author Type: Physician Facial Operator Type: H&P Filed: 11/07/2024 15:19 Note Text: [...] fevers. Neurological: No history of TIA's, stroke, [employer] tumor, impaired sensorium, hemiplegia, paraplegia or quadraplegia. No neurological symptoms or problems. Respiratory: No history of current cough or dyspnea, or pneumonia in the past 6 weeks. No history of respiratory/pulmonary symptoms or problems. Cardiovascular: No history of HTN requiring medication, no history of angina, CHF, PA, cardiac surgery or stents. Denies rest pain, [...] is not taking anti-coagulat (more content not included)...NormalPromedica Flower Hospital Hematocrit Auto (Bld) [Volume fraction]on 74-68-6296Mxpgrxyqwh (Bld) [Volume fraction]Hematocrit [Volume Fraction] of Blood by Automated count36.0-46.0 [facility] HospitalHemoglobin [Mass/volume] in Bloodon 11-06-2024 Hemoglobin (Bld) [Mass/Vol]Hemoglobin [Mass/volume] in Blood11.5-15.5FMartin Memorial HospitalINR in Platelet poor plasma by Coagulation assayon 40-19-8587RKK Coag (PPP) [Relative time]INR in Platelet poor plasma by Coagulation assay0.9-1.3FMartin Memorial HospitalComment on above: Vitamin K Antagonist (VKA) Therapeutic Range: INR 2 to 3 (Target INR of 2.5)Note: For patients treated with VKA drugs, such as warfarin, the [place] [employer]icians 2012 Guideline recommends [...] al. Chest 2012, 141:7S-47SNishimura RA, et al. [facility] 2017, 70: 252-289Laboratory - Chemistry and Chemistry - challengeon 32-80-3048Btfrjiu [Mass/Vol]4.1 g/dL 3.9-4.9[facility] HospitalALP [Catalytic activity/Vol]69 U/L34-123 [facility] HospitalALT [Catalytic activity/Vol]36 U/L7-38[facility] HospitalAST [Catalytic activity/Vol]23 U/E36-27CjmxvtfrcHarrison Community HospitalBilirubin [Mass/Vol]0.5 mg/dL0.2-1.3FMartin Memorial HospitalCalcium [Mass/Vol]9.0 mg/dL8.5-10.2FMartin Memorial Hospital Chloride [Moles/Vol]104 mmol/S06-397VajmwqrvzHarrison Community HospitalCO2 [Moles/Vol]26 mmol/H05-67IaegsjhzmHarrison Community HospitalCreatinine [Mass/Vol] 0.67 mg/dL0.58-0.96[facility] HospitalGlucose [Mass/Vol]130 mg/dL Pbje32-37NhnaomqrxHarrison Community HospitalComment on above:The [place] Diabetes Association (ADA) provides guidance for cutoff [...] diabetes.Reference: Standardsof Medical Care in Diabetes 2016, [place] [employer] Association. Diabetes Care. 2016.39(Suppl 1). Potassium [Moles/Vol]4.0 mmol/L3.7-5.1FCleveland Clinic Mentor Hospitalodium [Moles/Vol]142 mmol/X647-246IvpamzbffHarrison Community HospitalUrea nitrogen [Mass/Vol]9 mg/dL7-21[facility] HospitalLaboratory - Hematology and Cell countson 74-33-9698Dsnzzpbngrq (Bld) [#/Vol]0.12 10*3/uL<0.46[facility] HospitalImmature granulocytes (Bld) [#/Vol]0.04 10*3/uL<0.10 [facility] HospitalImmature granulocytes/100 WBC (Bld)0.4 % [facility] HospitalLeukocytes [#/volume] corrected for nucleated erythrocytes in Blood by Automated counon 49-01-6301JTT corrected for nucl RBC Auto (Bld) [#/Vol]Leukocytes [#/volume] corrected for nucleated erythrocytes in Blood by Automated counHigh3.70-11.00[facility] Lymphocytes Auto (Bld) [#/Vol]on 79-34-5197Fxxujxezxtb (Bld) [#/Vol]Lymphocytes [#/volume] in Blood by Automated count1.00-4.00[facility] Lymphocytes/100 WBC Auto (Bld)on 25-31-4327Ynqeuewmqwo/100 WBC (Bld) Lymphocytes/100 leukocytes in Blood by Automated countLakeHealth Beachwood Medical CenterH Auto (RBC) [Entitic mass]on 62-58-7176UFH (RBC) [Entitic mass]MCH [Entitic mass] by Automated count26.0-34.0[facility] HospitalMCHC Auto (RBC) [Mass/Vol]on 53-12-7255OQHG (RBC) [Mass/Vol]MCHC [Mass/volume] by Automated count30.5-36.0[facility] HospitalMCV Auto (RBC) [Entitic vol]on 27-58-1031HFV (RBC) [Entitic vol]MCV [Entitic volume] by Automated count 80.0-100.0[facility] HospitalMonocytes Auto (Bld) [#/Vol]on 96-86-2707Krskjuvhm (Bld) [#/Vol]Automated blood monocyte count<0.87[facility] HospitalMonocytes/100 WBC Auto (Bld)on 58-33-1089Uqbycetff/100 WBC (Bld)Automated monocyte %[facility] HospitalNeutrophils Auto (Bld) [#/Vol]on 18-80-1731Vdtwykdismy (Bld) [#/Vol]Neutrophils [#/volume] in Blood by Automated countHigh1.45-7.50[facility] Neutrophils/100 WBC Auto (Bld)on 13-01-9646Vtxuyfjndey/100 WBC (Bld)Automated neutrophil %[facility] HospitalNo Panel Informationon 11-06-2024 Estimated GFR (CKD-EPI)115 mL/min/1.73m???>=60[facility] Comment on above:Estimated Glomerular Filtration Rate [...] reflect actual GFR.Nucleated RBC Auto (Bld) [#/Vol]on 07-49-5184Pyxuqhmzp RBC (Bld) [#/Vol]Nucleated erythrocytes [#/volume] in Blood by Automated count<0.01[facility] Nucleated erythrocytes [Presence] in Blood by Automated counton 11-06-2024 Nucleated RBC Auto Ql (Bld)Nucleated erythrocytes [Presence] in Blood by Automated countHarrison Community HospitalPT panel Coag (PPP)on 11-06-2024 INR Coag (PPP) [Relative time]1.0 {INR}Normal0.9-1.3CTriHealth Good Samaritan Hospital Comment on above:Order Comment: Specimen Type: BLOOD SPECIMENOrdering Facility: [facility] Address:[facility] MOHAMUDFrancisco [place], [place] [address]Result Comment: Vitamin K Antagonist (VKA) Therapeutic Range: INR 2 to 3 (Target INR of 2.5) Note: For patients treated with VKA drugs, such as warfarin, the [place] [employer] 2012 Guideline recommends [...] Chest 2012, 141:7S-47S Sosa RA, et al. [facility] 2017, 70: 252-289Performed By: #### 98608-1, 82641-9 ####[facility] LABCLIA [id number] [place] [address] [place] AMERICAPT Coag (PPP) [Time]10.9 sNormal 9.7-13.0[facility] on above:Order Comment: Specimen Type: BLOOD SPECIMENOrdering Facility: [facility] Address:[address] [place], [place] [address]Performed By: #### 67351-3, 80438-3 ####[facility] LABCLIA [id number] [place] [address] [place] AMERICAPlatelet mean volume Auto (Bld) [Entitic vol]on 53-11-3636Yzzbrggv mean volume (Bld) [Entitic vol]Platelet mean volume [Entitic volume] in Blood by Automated count9.0-12.7FMartin Memorial Hospital Platelets Auto (Bld) [#/Vol]on 86-74-6042Nxshcfkhp (Bld) [#/Vol]Platelets [#/volume] in Blood by Automated -910BsmavilnqHarrison Community Hospital Protein [Mass/volume] in Serum or Plasmaon 82-84-7357Jkitaug [Mass/Vol]Protein [Mass/volume] in Serum or PlasmaLow6.3-8.0[facility] Prothrombin time (PT)on 33-62-8479WB Coag (PPP) [Time]Prothrombin time (PT) 9.7-13.0[facility] HospitalRBC Auto (Bld) [#/Vol]on 32-92-4209ORK (Bld) [#/Vol]Erythrocytes [#/volume] in Blood by Automated count3.90-5.20 [facility] Systemerum or plasma anion gap determinationon 28-96-3448Aviqw gap [Moles/Vol]Serum or plasma anion gap determination8-15 [facility] HospitalTYPE AND SCREEN,30 DAYon 38-27-3073CZTDXowgem [facility] on above:Order Comment: Specimen Type: BLOOD SPECIMENOrdering Facility: [facility] Address:[address] [place], [place] [address]Performed By: #### TSCR30 ####[facility] BLOOD BANKCLIA [id number] [place] [address] [place] AMERICARh Nom (Bld)NegativeNormalCChillicothe VA Medical Center on above: Order Comment: Specimen Type: BLOOD SPECIMENOrdering Facility: [facility] Address:[address] [place], [place] [address]Performed By: #### TSCR30 ####[facility] BLOOD BANKIA [id number] [address] STATES OF AMERICAaPTT PPPon 53-11-9240sGLQ Coag (PPP) [Time]24.4 s Krvilo76.0-32.4CChillicothe VA Medical Center on above:Order Comment: Specimen Type: BLOOD SPECIMENOrdering Facility: [facility] Address:[address] [place], [place] [address]Performed By: #### 74951-4, 26555-1 ####[facility] LABCLIA [id number] [place] [address] [place] AMERICACNCOon 25-09-4906SSXAMvelpg Text NormalPromedica Flower HospitalCNPNon 00-94-1775EFAHJhnsmtlzr (GENBMI) TIFFANI ALLISON ([id number]) 1985 F Date Time Provider Department 09/12/24 KRISTI WATTS During your visit today, we recorded the following information about you: Kristi Watts, SHABANA 09/12/2024 12:55 PM Signed [facility] [...] (None) Encounter Status:Closed by KRISTI WATTS on 09/12/24NormalCTriHealth Good Samaritan HospitalNICOTINE AND METAB, URon 82-79-9570JPWJ ANABASINE QUANT<5Normal Prom[facility] Flower HospitalComment on above:Order Comment: Specimen Type: URINE SPECIMEN [facility] Address: [address] [place], [place] [address]Performed By: #### UNICOT #### [facility] [employer] CLIA [id number] [address] [place], [place] [address]ERYX COTININE QUANT<15NormalPromedica Flower Hospital Comment on above:Order Comment: Specimen Type: URINE SPECIMEN [facility] Address: [address] [place], [place] [address]Performed By: #### UNICOT #### [facility] CLIA [id number] [address] [place], [place] [address]HDEB NICOTINE QUANT<15NormalPromedica Flower Hospital Comment on above:Order Comment: Specimen Type: URINE SPECIMEN [facility] Address: [address] [place], [place] [address]Result Comment: INTERPRETIVE INFORMATION: Nicotine and Metabolites, Urine, Quantitative Methodology: Quantitative Liquid Chromatography-Tandem Mass Spectrometry Positive cutoff: Nicotine 15 ng/mL Cotinine 15 ng/mL 8-SD-Ecsyxttb 50 ng/mL Anabasine 5 ng/mL For medical [...] developed and its performance characteristics determined by [employer]. It has not been cleared or approved by the US Food and Drug Administration. This test was performed in a CLIA certified laboratory and is intended for clinical purposes. Performed By: [employer] [address] [place] [address] Jig Bore Operator: Kulwinder Wilson MD, PhD CLIA Number: [id number] By: #### UNICOT #### [employer] [facility] CLIA [id number] [address] [place], [place] [address]CBPRZ 3 [place] COTININE<50NormalClevelAtrium Health University City Comment on above:Order Comment: Specimen Type: URINE SPECIMEN [facility] Address: [address] [place] [address]Ynpwniowa By: #### UNICOT #### [facility] CLIA [id number] [address] [place], [place] [address]FDIJvr 75-22-1328EKUAGanqixrcx (ENDPTW) TIFFANI ALLISON ([id number]) 1985 F Date Time Provider Department 08/22/24 [...] (None) Encounter Status:Closed by CHADWICK HELM on 08/22/24NormalCTriHealth Good Samaritan HospitalXR Ankle - right 3 Viewson 19-16-8692Erzsmok Result: AP lateral and oblique of the right ankle taken in the office today demonstrating no significant collapse or osteochondral defect ankle mortise well-preserved no bony tumor or fracture seen.[facility] HealthcareRadiology Study observation (narrative)[facility] EfltrnwroqNpO3t HPLC (Bld) [Mass fraction]on 33-46-7802UrX8l (Bld) [Mass fraction]Hemoglobin A1c/Hemoglobin.total in Blood by HPLCHarrison Community Hospital POLYSOMNOGRAM (PSG)/HOME SLEEP APNEA TEST (HSAT)on 21-52-4847AFDADQLUJFDPY (PSG)/HOME SLEEP APNEA TEST (HSAT)[facility] at [address], [address], [place] [address] ; Home Sleep Apnea Test (HSAT) Study Report Name: TIFFANI ALLISON Date of Study: 07/31/2024 [facility]#: [id number] Age: 38 (: 1985) ESS: 02/21 Neck [...] unattended Type III, minimum of 4 parameters (55198) Procedure: This study was performed using a Type III ambulatory PSG device and was unattended. The patient was instructed on proper use of the device by a registered certified neurodiagnostic technologist. The monitored parameters included heart rate, [...] of stroke. INTERPRETING PHYSICIAN: Erik Cutler MD [facility] I attest that I have performed epoch by epoch review of the entire raw data and find this study to be technically adequate. Report Digitally Signed By: ERIK CUTLER MD (08/09/2024 12:59:35 PM)NormalSumma Health ANKLE RIGHT WO IV CONTRASTon 65-06-0283MB ANKLE RIGHT WO IV CONTRASTEXAM/TECHNIQUE: MR ANKLE [...] tarsi syndrome. ELECTRONICALLY SIGNED BY: Corina LizamaNot AvailableCOALINGA STATE HOSPITAL US LOWER EXTREMITY VENOUS DUPLEX RIGHTon 51-70-7490GHMU US LOWER EXTREMITY VENOUS DUPLEX RIGHTExam: [facility] US LOWER EXTREMITY VENOUS DUPLEX RIGHT [...] the interpreting Radiologist.NormalNot AvailableNICOTINE AND METAB, URon 33-90-7917AZWQ ANABASINE QUANT<5NormalCChillicothe VA Medical Center on above:Order Comment: Specimen Type: BLOOD SPECIMEN [facility] Address: [address] [place], [place] [address]Performed By: #### 53322-0, 2777- #### [facility] CLIA [id number]UR[address] COTININE QUANT<15Normal [facility] on above:Order Comment: Specimen Type: BLOOD SPECIMEN [facility] Address: [address] [place], [place] [address]Performed By: #### 31639-9, 2776-08, #### [facility] CLIA [id number] [address] [place], [place] [address] [facility] CENTERURIN NICOTINE QUANT<15Normal [facility] on above:Order Comment: Specimen Type: BLOOD SPECIMEN [facility] Address: [address] [place], [place] [address]Result Comment: INTERPRETIVE INFORMATION: Nicotine and Metabolites, Urine, Quantitative Methodology: Quantitative Liquid Chromatography-Tandem Mass Spectrometry Positive cutoff: Nicotine 15 ng/mL Cotinine 15 ng/mL 3-TO-Smwsweru 50 ng/mL Anabasine 5 ng/mL For medical [...] developed and its performance characteristics determined by [employer]. It has not been cleared or approved by the US Food and Drug Administration. This test was performed in a CLIA certified laboratory and is intended for clinical purposes. Performed By: [employer] [address] [place] [address] Jig Bore Operator: Kulwinder Wilson MD, PhD CLIA Number: [id number] By: #### 32581-8, 27701-29, #### [facility] CLIA [id number] [address] [place] [address] [place] AMERICAURINE 3 [place] COTININE<50Normal Promedica Flower HospitalComment on above:Order Comment: Specimen Type: BLOOD SPECIMEN [facility] Address: [address] [place], [place] [address]Performed By: #### 62056-1, 2776-1, #### [facility] CLIA [id number] [address] [place] [address] OF [facility] CENTERXR CHEST 2V FRONTAL/LATon 20-59-1954PJ CHEST 2V FRONTAL/LAT* * *Final Report* * [...] tissues: Unremarkable. IMPRESSION: No acute radiographic abnormality. Javascript Developer: MARYB Transcribe Date/Time: Jun 15 2024 12:32P Dictated by : SUZIE RICARDO MD This examination was interpreted and the report reviewed and electronically signed by: SUZIE RICARDO MD on Jun 15 2024 12:32PM EST [id number] Flower HospitalXR Chest PA and Lateralon 05-14-5103HQXIDCYSWY: No acute radiographic abnormality. Javascript Developer: LEWIS Transcribe Date/Time: Jun 15 2024 12:32P Dictated by : SUZIE RICARDO MD This examination was interpreted and the report reviewed and electronically signed by: SUZIE RICAROD MD on Jun 15 2024 12:32PM EST [...] and soft tissues: Unremarkable. DIVISION OF RADIOLOGYProvider, [facility] - 06/15/2024 * * *Final Report* * [...] Unremarkable. IMPRESSION IMPRESSION: No acute radiographic abnormality. Javascript Developer: PSCB Transcribe Date/Time: Jun 15 2024 12:32P Dictated by : SUZIE RICARDO MD This examination was interpreted and the report reviewed and electronically signed by: SUZIE RICARDO MD on Jun 15 2024 12:32PM EST [facility] HospitalRadiology Study observation (narrative)[facility] HospitalXR Chest PA and LateralOrdered By: [facility] Provider on 30-24-9363Grztqdrwy ClinicCNPNon 37-18-1636YCZEZcifpjxtc (GENBMI) TIFFANI ALLISON ([id number]) 1985 F Date Time Provider Department 05/17/24 [...] (None) Encounter Status:Closed by KRISTI WATTS on 05/17/24[facility] ECG *CARDIOLOGY ONLY*on 62-74-0616KAG ECG *CARDIOLOGY ONLY* [facility] [place] [address] Electrocardiograph Report Signed Patient: Tiffani Allison MR#: [id number] : 1985 Acct:[id number] Age/Sex: 38 / F ADM Date: 05/10/24 Loc: EKGCARDIO [facility]: Felipe Quiñones MD Ordering Provider: [...] previous ECGs available Confirmed by Felipe Quiñones ([id number]) on 05/12/2024 10:56:03 AM Referred By: Electronically Signed By: Felipe Quiñones Transcribed By: MUS Signed By Felipe Quiñones MD 05/12/[address] [place] [address] Physician GroupOVon 39-09-9800KYVHRoijml Visit (GENBMI) TIFFANI ALLISON ([id number]) 1985 F Date Time Provider Department 04/24/24 [...] 20 DAYS clindamycin (THU (more content not included)...[facility] 69-88-3577AYWCLhqaapdok (GENBMI) TIFFANI ALLISON ([id number]) 1985 F Date Time Provider Department 04/18/24 [...] (None) Encounter Status:Closed by KRISTI WATTS on 04/18/24[facility] 60-96-2960BXPOYxeaod Visit (JENNIFER) ESTEFANY,TIFFANI ([id number]) 1985 F Date Time Provider Department 04/16/24 [...] No Ran Padron 04/23/2024 8:59 AM Signed [facility] - HISTORY [...] findings of this patient (more content not included)...NormalKn[facility] 41-31-5416ZQIKRzvvmxiul (JENNIFER) TIFFANI ALLISON ([id number]) 1985 F Date Time Provider Department 04/11/24 JAVIER KITCHEN During your visit today, we recorded the following information about you: Javier Kitchen LPN 04/11/2024 4:18 PM Signed Contacted patient, verified name and . Advised of the following Abdominal Surgeries performed and patient had Imaging performed from [facility] 03/29/24 and to bring Imaging with her to appointment. 2018--Gastric Bypass ( [facility] [place], [place]) 2017--Appendectomy ([place], [place]; [facility]) Advised patient will contact to obtain Operative Reports and patient to be sent Rhytect Message to contact if any needs or concerns arise, patient acknowledged and verbalized understanding. SANDRITA Luciano Claudine, LPN 04/13/2024 11:39 AM Signed Contacted Med Ctr for patient's Lap Vertical Gastric Sleeve performed in 2018, no answer to HIM Dept and message left to contact this sports writer back. Contacted [facility], [facility] Department. Spoke with Ashley and advised to send fax request to [phone], fax receipt confirmation @ 11:38 am, will monitor for reports for Lap Appy- 2016 Javier Kitchen LPN Allergies As of Date: 04/11/2024 (Not on File) Date Reviewed: Never Reviewed Problem List As Of Date: 04/11/2024 (None) Encounter Status:Closed by JAVIER KITCHEN on 04/11/24[facility] ABDOMEN PELVIS W CONon 35-41-3112[address] [address] [address] Scan Report Signed Patient: TIFFANI ALLISON MR#: [id number] : 1985 Acct:[id number] Age/Sex: 38 / F ADM Date: 03/29/24 Loc: CT Attending Dr: Adrian Kerr D.O. Ordering Physician: Adrian Kerr D.O. Date of Service: 03/29/24 Procedure(s): CT abdomen pelvis w con Accession Number(s): [id number] cc: ELISABETH BECKMAN [address] [address] Patient Name: TIFFANI ALLISON MRN: [id number] date: 1985 Sex: F Assigned Patient Location: CT Current Patient Location: Accession/Order Number: [id number] Exam Date: 03/29/2024 10:15 Report Date: 03/30/2024 [...] Signed By: 03/30/24 0755 DD/ 0752 TD/TT: Javascript Developer:ANDREAHRadiology, Radiologist, - 03/30/2024 [place] [address] CT Scan Report Signed Patient: TIFFANI ALLISON MR#: [id number] : 1985 Acct:[id number] Age/Sex: 38 / F ADM Date: 03/29/24 Loc: CT Attending Dr: Adrian Kerr D.O. Ordering Physician: Adrian Kerr D.O. Date of Service: 03/29/24 Procedure(s): CT abdomen pelvis w con Accession Number(s): [id number] cc: ELISABETH BECKMAN [place] [id number] Patient Name: TIFFANI ALLISON MRN: [employer]:[id number] date: 1985 Sex: F Assigned Patient Location: CT Current Patient Location: Accession/Order Number: [id number] Exam Date: 03/29/2024 10:15 Report Date: 03/30/2024 [...] Signed By: 03/30/24 0755 DD/ 075 TD/TT: Javascript Developer: KRISTA HealthcareRadiology Study observation (narrative)[facility] HealthcareCT ABDOMEN PELVIS W CONOrdered By: Radiologist Radiology on 86-19-8211[employer] Work Phone: Lon 70-00-1136RNkohcicc: [id number] Received: 12/13/23754 Status: KENISHA Jerry Num: [id number] Spec Type: Surgical Subm Dr: Adrian Kerr Tissues: A Placenta - 3rd Trimester (Greater than 28 weeks) (PLACENTA) B Fallopian Tube - Sterilization (FT BILATERAL) Procedures: HE/5, Gross/Micro L5, Gross/Micro L2 Age/ Patient Sex Location Account Attending Physician EstefanyTiffani R 38/F LABELL [id number] Adrian Kerr SPEC NUM: [id number] RECD: 12/13/23 STATUS: KENISHA JERRY NUM: [id number] RODERICK: 12/12/[address]: Adrian Kerr ENTERED: 12/13/[address] [facility] [address]: Tariq,Lab SPEC TYPE: Surgical DEPT: OK [...] and cord, has a trimmed weight Specimen: [id number] Received: 12/13/23 Status: KENISHA Jerry Num: [id number] Spec Type: Surgical Subm Dr: Adrian Kerr Tissues: A Placenta - 3rd Trimester (Greater than 28 weeks) (PLACENTA) B Fallopian Tube - Sterilization (FT BILATERAL) Procedures: /5, Gross/Micro L5, Gross/Micro L2 Patient: Tiffani Allison [id number] (Continued) Specimen: [id number] Received: 12/13/23 (Continued) Gross Description (Continued) Signed (signature on file) Antonio Ahumada MD 12/14/23 1545 Specimen: [id number] Received: 12/13/23 Status: KENISHA Jerry Num: [id number] Spec Type: Surgical Subm Dr: Adrian Kerr Tissues: A Placenta - 3rd Trimester (Greater than 28 weeks) (PLACENTA) B Fallopian Tube - Sterilization (FT BILATERAL) Procedures: HE/5, Gross/Micro L5, Gross/Micro L2 Patient: Estefany,Tiffani R [id number] (Continued) Specimen: [id number] Received: 12/13/23 (Continued) Gross Description (Continued) of [...] luminal centers lined by unremarkable burnham mucosa. Scallop Cutter sections are submitted in A1 (tube #1) and A2 (tube #2). Clinical history: Previous . , 4, 7, 9, gestational age 37 weeks, small baby CPT Codes 50001 17306 Specimen: [id number] Received: 12/13/23 Status: KENISHA Jerry Num: [id number] Spec Type: Surgical Subm Dr: Adrian Kerr Tissues: A Placenta - 3rd Trimes (more content not included)...NormalThe [facility] Physician [facility] OB BPP W NON-STRESSon 48-04-1810[place]wl[place] [address] Ultrasound Report Signed Patient: TIFFANI ALLISON MR#: [id number] : 1985 Acct:[id number] Age/Sex: 38 / F ADM Date: 12/09/23 Loc: [facility] 250-[address]: Adrian Kerr D.O. Ordering Physician: Adrian Kerr D.O. Date of Service: 12/09/23 Procedure(s): US OB BPP w non-stress Accession Number(s): [id number] cc: Adrian Kerr D.O.; Yandel More NP [address] [address] Patient Name: TIFFANI ALLISON MRN: [employer]:[id number] date: 1985 Sex: F Assigned Patient Location: [facility] Current Patient Location: [facility] Accession/Order Number: [id number] Exam Date: 12/09/2023 09:34 Report Date: 12/09/2023 [...] Signed By: 12/09/23 1021 DD/ 1019 TD/TT: Javascript Developer:ANDREAHRadiology, Radiologist, - 12/09/2023 [place] [address] Ultrasound Report Signed Patient: TIFFANI ALLISON MR#: [id number] : 1985 Acct:[id number] Age/Sex: 38 / F ADM Date: 12/09/23 Loc: [facility] 250-[address]: Adrian Kerr D.O. Ordering Physician: Adrian Kerr D.O. Date of Service: 12/09/23 Procedure(s): US OB BPP w non-stress Accession Number(s): [id number] cc: Adrian Kerr D.O.; Yandel More STRIKE PLATE ATTACHER [place] [id number] Patient Name: TIFFANI ALLISON MRN: [id number] date: 1985 Sex: F Assigned Patient Location: [facility] Current Patient Location: [facility] Accession/Order Number: [id number] Exam Date: 12/09/2023 09:34 Report Date: 12/09/2023 [...] Signed By: 12/09/23 1021 DD/ 1019 TD/TT: Javascript Developer: KRISTA HealthcareRadiology Study observation (narrative)NOMS HealthcareUS OB BPP W NON-STRESSOrdered By: Radiologist Radiology on 74-47-5119[facility] Work Phone: US OB BPP W NON-STRESSon 31-63-9477[place]tb[place] [address] Ultrasound Report Signed Patient: TIFFANI ALLISON MR#: [id number] : 1985 Acct:[id number] Age/Sex: 38 / F ADM Date: 12/02/23 Loc: US Attending Dr: Adrian Kerr D.O. Ordering Physician: Adrian Kerr D.O. Date of Service: 12/02/23 Procedure(s): US OB BPP w non-stress Accession Number(s): [id number] cc: Adrian Kerr D.O.; YANDEL MORE M.D. [place] [phone] Patient Name: TIFFANI ALLISON MRN: [id number] date: 1985 Sex: F Assigned Patient Location: US Current Patient Location: US Accession/Order Number: [id number] Exam Date: 12/02/2023 09:49 Report Date: 12/02/2023 [...] Signed By: 12/02/23 1022 DD/ 1019 TD/TT: Javascript Developer:ANDREAHRadiologfrank, Radiologist, - 12/02/2023 [place] [address] Ultrasound Report Signed Patient: TIFFANI ALLISON MR#: [id number] : 1985 Acct:[id number] Age/Sex: 38 / F ADM Date: 12/02/23 Loc: US Attending Dr: Adrian Kerr D.O. Ordering Physician: Adrian Kerr D.O. Date of Service: 12/02/23 Procedure(s): US OB BPP w non-stress Accession Number(s): [id number] cc: Adrian Kerr D.O.; YANDEL MORE M.D. The [address] [address] Patient Name: TIFFANI ALLISON MRN: [id number] date: 1985 Sex: F Assigned Patient Location: US Current Patient Location: US Accession/Order Number: [id number] Exam Date: 12/02/2023 09:49 Report Date: 12/02/2023 [...] Signed By: 12/02/23 1022 DD/ 1019 TD/TT: Javascript Developer: NOMMaryellen HealthcareRadiology Study observation (narrative)NOMS HealthcareUS OB BPP W NON-STRESSOrdered By: Radiologist Radiology on 87-63-5826[facility] Work Phone: US OB BPP W NON-STRESSon 13-48-8950[place]pf[place] [address] Ultrasound Report Signed Patient: TIFFANI ALLISON MR#: [id number] : 1985 Acct:[id number] Age/Sex: 38 / F ADM Date: 11/25/23 Loc: US Attending Dr: Adrian Kerr D.O. Ordering Physician: Adrian Kerr D.O. Date of Service: 11/25/23 Procedure(s): US OB BPP w non-stress Accession Number(s): [id number] cc: Adrian Kerr D.O.; YANDEL MORE M.D. [place] [phone] Patient Name: TIFFANI ALLISON MRN: [id number] date: 1985 Sex: F Assigned Patient Location: [facility] Current Patient Location: Accession/Order Number: [id number] Exam Date: 11/25/2023 09:36 Report Date: 11/25/2023 [...] Signed By: 11/25/23 1209 DD/ 1206 TD/TT: Javascript Developer:ANDREAHRadiology, Radiologist, MD - 11/25/2023 [place] [address] Ultrasound Report Signed Patient: TIFFANI ALLISON MR#: [id number] : 1985 Acct:[id number] Age/Sex: 38 / F ADM Date: 11/25/23 Loc: US Attending Dr: Adrian Kerr D.O. Ordering Physician: Adrian Kerr D.O. Date of Service: 11/25/23 Procedure(s): US OB BPP w non-stress Accession Number(s): [id number] cc: Adrian Kerr D.O.; YANDEL MORE M.D. The [place] [phone] Patient Name: TIFFANI ALLISON MRN: [id number] date: 1985 Sex: F Assigned Patient Location: [facility] Current Patient Location: Accession/Order Number: [id number] Exam Date: 11/25/2023 09:36 Report Date: 11/25/2023 [...] Signed By: 11/25/23 1209 DD/ 1206 TD/TT: Javascript Developer: NOMS HealthcareRadiology Study observation (narrative)NOMS HealthcareUS OB BPP W NON-STRESSOrdered By: Radiologist Radiology on 63-41-5991C[facility] Work Phone: US OB BPP W NON-STRESSon [phone], [place] [address] Ultrasound Report Signed Patient: TIFFANI ALLISON MR#: [id number] : 1985 Acct:[id number] Age/Sex: 38 / F ADM Date: 11/17/23 Loc: US Attending Dr: Adrian Kerr D.O. Ordering Physician: Adrian Kerr D.O. Date of Service: 11/17/23 Procedure(s): US OB BPP w non-stress Accession Number(s): [id number] cc: Adrian Kerr D.O.; YANDEL MORE M.D. [address] [address] Patient Name: TIFFANI ALLISON MRN: [id number] date: 1985 Sex: F Assigned Patient Location: [facility] Current Patient Location: Accession/Order Number: [id number] Exam Date: 11/17/2023 20:12 Report Date: 11/18/2023 [...] Ayala M.D. Signed By: 11/18/2342 DD/ TD/TT: Javascript Developer:ANDREAHRadiology, Radiologist, - 11/18/2023 [place] [address] Ultrasound Report Signed Patient: TIFFANI ALLISON MR#: [id number] : 1985 Acct:[id number] Age/Sex: 38 / F ADM Date: 11/17/23 Loc: US Attending Dr: Adrian Kerr D.O. Ordering Physician: Adrian Kerr D.O. Date of Service: 11/17/23 Procedure(s): US OB BPP w non-stress Accession Number(s): [id number] cc: Adrian Kerr D.O.; YANDEL MORE M.D. The [address] [address] Patient Name: TIFFANI ALLISON MRN: [id number] date: 1985 Sex: F Assigned Patient Location: [facility] Current Patient Location: Accession/Order Number: [id number] Exam Date: 11/17/2023 20:12 Report Date: 11/18/2023 [...] M.D. Signed By: 11/18/2342 DD/ 9 TD/TT: Javascript Developer: KRISTA HealthcareRadiology Study observation (narrative)NOMMaryellen NgUS OB BPP W NON-STRESSOrdered By: Radiologist Radiology on 02-39-1660KFJA [employer] Work Phone: US OB GROWTHon [phone] [phone] Ultrasound Report Signed Patient: TIFFANI ALLISON MR#: [id number] : 1985 Acct:[id number] Age/Sex: 38 / F ADM Date: 11/15/23 Loc: [facility] Attending Dr: Kassandra Alfaro Ordering Physician: Kassandra Alfaro Date of Service: 11/15/23 Procedure(s): US OB growth Accession Number(s): [id number] cc: YANDEL Cevallos M.D. [address] [address] Patient Name: TIFFANI ALLISON MRN: [id number] date: 1985 Sex: F Assigned Patient Location: [facility] Current Patient Location: [facility] Accession/Order Number: [id number] Exam Date: 11/15/2023 08:03 Report Date: 11/15/2023 [...] Lazcano M.D. Signed By: 11/15/2348 DD/ TD/TT: Javascript Developer:ANDREAHRadiology, Radiologist, - 11/15/2023 [place] [address] Ultrasound Report Signed Patient: TIFFANI ALLISON MR#: [id number] : 1985 Acct:[id number] Age/Sex: 38 / F ADM Date: 11/15/23 Loc: [facility] Attending Dr: Kassandra Alfaro Ordering Physician: Kassandra Alfaro Date of Service: 11/15/23 Procedure(s): US OB growth Accession Number(s): [id number] cc: Kassandra Alfaro; YANDEL MORE M.D. The [place] [phone] Patient Name: TIFFANI ALLISON MRN: [id number] date: 1985 Sex: F Assigned Patient Location: [facility] Current Patient Location: [facility] Accession/Order Number: [id number] Exam Date: 11/15/2023 08:03 Report Date: 11/15/2023 [...] M.D. Signed By: 11/15/2348 DD/ 5 TD/TT: Javascript Developer: [facility] HOSPITALMaryellen HealthcareRadiology Study observation (narrative)[facility] OB GROWTHOrdered By: Radiologist Radiology on 35-28-2349IGWFBarnes-Jewish [facility] Work Phone: Urinalysis macro (dipstick) panel (U)on 09-15-2023 Bilirubin, UANegativeNegative - 4(70) +++ mg/dLNOMS HealthcareBlood, UANegative Negative - 50 Maikol/mcLNOMS HealthcareClarity, UAClearNOMS HealthcareColor, UA YellowNOMS HealthcareGlucose, UANegativeNegative - 2000(110) ++++ mg/dLNOME HealthcareInterpretation and review of laboratory resultsAbnormalNOSaint Luke's Health System Ketones, UANegativeNegative - 160(16) ++++ mg/dLNOMS HealthcareLeukocytes, UA NegativeNegative - 500+++ Endy/mcLNOMS HealthcareNitrite, UANegativeNegative - PositiveNOMS HealthcarepH, UA6.05 - 9NOMS HealthcareProtein, UATraceNegative - 2000(20) ++++ mg/dLNOMS HealthcareSpec Grav, UA1.0251 - 1.03N[facility] Urobilinogen, UA0.20.2 - 12 mg/dLNOMS HealthcareNOMS HealthcareNo Panel InformationOrdered By: Radiologist Radiology on 05-73-6784VDCYBarnes-Jewish [facility] Work Phone: No Panel Informationon 96-79-4044Avcgzdavk Study observation (narrative)NOMS HealthcareUS OB ANATOMYon 12-42-3436[place]reM[place] [address] Ultrasound Report Signed Patient: TIFFANI ALLISON MR#: [id number] : 1985 Acct:[id number] Age/Sex: 37 / F ADM Date: 08/18/23 Loc: US Attending Dr: Adrian Kerr D.O. Ordering Physician: Adrian Kerr D.O. Date of Service: 08/18/23 Procedure(s): US OB anatomy Accession Number(s): [id number] cc: Adrian Kerr D.O.; YANDEL MORE M.D. [address] [address] Patient Name: TIFFANI ALLISON MRN: [id number] date: 1985 Sex: F Assigned Patient Location: US Current Patient Location: US Accession/Order Number: [id number] Exam Date: 08/18/2023 11:06 Report Date: 08/18/2023 [...] Signed By: 08/18/23 1248 DD/ 1245 TD/TT: Javascript Developer:TBHRadiology, Radiologist, - 08/18/2023 [place] [address] Ultrasound Report Signed Patient: TIFFANI ALLISON MR#: [id number] : 1985 Acct:[id number] Age/Sex: 37 / F ADM Date: 08/18/23 Loc: US Attending Dr: Adrian Kerr D.O. Ordering Physician: Adrian Kerr D.O. Date of Service: 08/18/23 Procedure(s): US OB anatomy Accession Number(s): [id number] cc: Adrian Kerr D.O.; YANDEL MORE M.D. [address] [address] Patient Name: TIFFANI ALLISON MRN: [id number] date: 1985 Sex: F Assigned Patient Location: US Current Patient Location: Accession/Order Number: [id number] Exam Date: 08/18/2023 11:06 Report Date: 08/18/2023 [...] Signed By: 08/18/23 1248 DD/ 1245 TD/TT: Javascript Developer: KRISTA Jaramillo OB CERVICAL LENGTHon 11-46-6055UyrM[place], [place] [address] Ultrasound Report Signed Patient: TIFFANI ALLISON MR#: [id number] : 1985 Acct:[id number] Age/Sex: 37 / F ADM Date: 08/18/23 Loc: US Attending Dr: Adrian Kerr D.O. Ordering Physician: Adrian Kerr D.O. Date of Service: 08/18/23 Procedure(s): US OB cervical length Accession Number(s): [id number] cc: Adrian Kerr D.O.; YANDEL MORE M.D. [place] [address] Patient Name: TIFFANI ALLISON MRN: [id number] date: 1985 Sex: F Assigned Patient Location: Current Patient Location: US Accession/Order Number: [id number] Exam Date: 08/18/2023 11:06 Report Date: 08/18/2023 [...] Signed By: 08/18/23 1248 DD/ 1245 TD/TT: Javascript Developer:ISAÍASadiologfrank, Radiologist, - 08/18/2023 [place] [address] Ultrasound Report Signed Patient: TIFFANI ALLISON MR#: [id number] : 1985 Acct:[id number] Age/Sex: 37 / F ADM Date: 08/18/23 Loc: US Attending Dr: Adrian Kerr D.O. Ordering Physician: Adrian Kerr D.O. Date of Service: 08/18/23 Procedure(s): US OB cervical length Accession Number(s): [id number] cc: Adrian Kerr D.O.; YANDEL MORE M.D. The [place] [address] Patient Name: TIFFANI ALLISON MRN: [id number] date: 1985 Sex: F Assigned Patient Location: US Current Patient Location: US Accession/Order Number: [id number] Exam Date: 08/18/2023 11:06 Report Date: 08/18/2023 [...] Signed By: 08/18/23 1248 DD/ 1245 TD/TT: Javascript Developer: KRISTA NgFechris Free Cell DNAon 09-31-8219GghBoohyv Health System OB TRANSVAGINALon 87-68-9487Ad[address] [address] Ultrasound Report Signed Patient: Tiffani Allison MR#: [id number] : 1985 Acct:[id number] Age/Sex: 37 / F ADM Date: 05/13/23 Loc: US Attending Dr: Adrian Kerr D.O. Ordering Physician: Adrian Kerr D.O. Date of Service: 05/13/23 Procedure(s): US OB transvaginal Accession Number(s): [id number] cc: Adrian Kerr D.O.; YANDEL MORE M.D. The [address] [address] Patient Name: TIFFANI ALLISON MRN: [employer]:[id number] date: 1985 Sex: F Assigned Patient Location: US Current Patient Location: US Accession/Order Number: [id number] Exam Date: 05/13/2023 08:39 Report Date: 05/13/2023 [...] M.D. Signed By: 05/13/23 1517 DD/ TD/TT: Javascript Developer:ANDREAHRadiology, Radiologist, MD - 05/13/2023 [place] [address] Ultrasound Report Signed Patient: Tiffani Allison MR#: [id number] : 1985 Acct:[id number] Age/Sex: 37 / F ADM Date: 05/13/23 Loc: US Attending Dr: Adrian Kerr D.O. Ordering Physician: Adrian Kerr D.O. Date of Service: 05/13/23 Procedure(s): US OB transvaginal Accession Number(s): [id number] cc: Adrian Kerr D.O.; YANDEL MORE M.D. [place] [address] Patient Name: TIFFANI ALLISON MRN: [employer]:[id number] date: 1985 Sex: F Assigned Patient Location: US Current Patient Location: US Accession/Order Number: [id number] Exam Date: 05/13/2023 08:39 Report Date: 05/13/2023 [...] M.D. Signed By: 05/13/237 DD/ 13 TD/TT: Javascript Developer: KRISTA HealthcareRadiology Study observation (narrative)KRISTA HealthcareUS OB TRANSVAGINALOrdered By: Radiologist Radiology on 08-57-7049[facility] Work Phone: HCG ( test) IA.rapid Ql (U)Ordered By: Denys Gallego on 81-44-4331UXJ ( test) Ql (U)NegativeCleveland Clinic Hill[facility] AUTO DIFFon 24-92-1503GEPR #0.0 103/ulNormal0.0-0.1 The [facility] HospitalComment on above:Performed By: #### FERR, FETIBC #### [facility] [address] [place] [address] Dr. Michele ObrienBasophils/100 WBC (Bld)0.5 %Normal0.2-2.0[facility] Comment on above:Performed By: #### FERR, FETIBC #### [facility] [address] [place] [address] Dr. Michele Rodriguez #0.2 103/ulNormal0.0-0.7The [facility] HospitalComment on above: Performed By: #### FERR, FETIBC #### [facility] [address] [place] [address] Dr. Michele Haysosinophils/100 WBC (Bld)2.6 %Normal0.9-7.0[facility] Comment on above:Performed By: #### FERR, FETIBC #### [facility] [address] [place] [address] Dr. Michele Haysrythrocyte distribution width (RBC) [Ratio]19.1 %Critically high 11.0-15.0The [facility] HospitalComment on above:Performed By: #### FERR, FETIBC #### [facility] [address] [place] [address] Dr. Michele ObrienHematocrit (Bld) [Volume fraction]37.6 %Tayxky30.0-48.0The [facility] HospitalComment on above:Performed By: #### FERR, FETIBC #### [facility] [address] [place] [address] Dr. Michele ObrienHemoglobin (Bld) [Mass/Vol]11.9 g/dLCritically low12.0-16.0The [facility] HospitalComment on above:Performed By: #### FERR, FETIBC #### [facility] [address] [place] [address] Dr. Michele Higgins #0.03 10e3/ulNormal0.00-0.03The [facility] HospitalComment on above:Performed By: #### FERR, FETIBC #### [facility] [address] [place] [address] Dr. Michele Higgins %0.3 %Normal0.0-0.5The [facility] HospitalComment on above: Performed By: #### FERR, FETIBC #### [facility] [address] [place] [address] Dr. Michele Pérez #1.6 103/ulNormal1.2-3.8The [facility] HospitalComment on above:Performed By: #### FERR, FETIBC #### [facility] [address] [place] [address] Dr. Michele Gomezhocytes/100 WBC (Bld)18.4 %Critically low20.5-60.0The [facility] HospitalComment on above:Performed By: #### FERR, FETIBC #### [facility] [address] [place] [address] Dr. Michele SotoUAL DIFF REQNONormalThe [facility] HospitalComment on above: Performed By: #### FERR, FETIBC #### [facility] [address] [place] [address] Dr. Michele Briones (RBC) [Entitic mass]23.7 pgCritically low26.7-34.0The [facility] HospitalComment on above:Performed By: #### FERR, FETIBC #### [facility] [address] [place] [address] Dr. Mcihele Briones (RBC) [Mass/Vol]31.6 g/wABiycpg30.9-35.2The [facility] HospitalComment on above:Performed By: #### FERR, FETIBC #### [facility] [address] [place] [address] Dr. Michele Briones (RBC) [Entitic vol]74.9 fLCritically low81.0-99.0The [facility] HospitalComment on above:Performed By: #### FERR, FETIBC #### [facility] [address] [place] [address] Dr. Michele Hagen #0.5 103/ulNormal0.3-0.8The [facility] HospitalComment on above:Performed By: #### FERR, FETIBC #### [facility] [address] [place] [address] Dr. Michele Stinsonocytes/100 WBC (Bld)5.9 %Normal1.7-12.0[facility] Comment on above:Performed By: #### FERR, FETIBC #### [facility] [address] [place] [address] Dr. Michele Wilson #6.4 103/ulNormal1.4-6.5The [facility] HospitalComment on above:Performed By: #### FERR, FETIBC #### [facility] [address] [place] [address] Dr. Michele Tamezutrophils/100 WBC (Bld)72.3 %Ixvbtt97.0-75.0The [facility] HospitalComment on above:Performed By: #### FERR, FETIBC #### [facility] [address] [place] [address] Dr. Michele Sue mean volume (Bld) [Entitic vol]10.2 fLNormal9.5-13.5The [facility] HospitalComment on above:Performed By: #### FERR, FETIBC #### [facility] [address] [place] [address] Dr. Michele ObrienPLT243 103/koXjpvmx827-933Hol [facility] HospitalComment on above: Performed By: #### FERR, FETIBC #### [facility] [address] [place] [address] Dr. Michele ObrienRBC5.02 106/ulNormal4.20-5.40The [facility] HospitalComment on above:Performed By: #### FERR, FETIBC #### [facility] [address] [place] [address] Dr. Michele ObrienWBC8.9 103/ulNormal4.0-11.0[facility] Barber[facility] Campusment on above: Performed By: #### FERR, FETIBC #### [facility] [address] [place] [address] Dr. Michele Rousseau ABD/PELVIS WO CONon 40-91-3113WS ABD/PELVIS WO CONEXAMINATION: CT ABD/PELVIS WO CON, [...] Electronically authenticated by: ALEXA WHITE Date: 2022-12-28 02:25[facility] URINE PROFILEon 81-40-2959Rnzwywwqx Ql (U)NegativeNormal NEGATIVEThe [facility] County HospitalComment on above:Performed By: #### HIV12 #### [facility] [address] [place] [address] Dr. Michele Medel (U)CLEARNormalCLEARThe [facility] HospitalComment on above: Performed By: #### HIV12 #### [facility] [address] [place] [address] [address] Michele Irizarry (U)LT. YELLOWNormalYELLOWThe [facility] HospitalComment on above:Performed By: #### HIV12 #### [facility] [address] [place] [address] Dr. Michele Chadwick micrscopic examination will be performed if indicated. NormalThe [facility] HospitalComment on above:Performed By: #### HIV12 #### [facility] [address] [place] [address] [address] Michele ObrienGlucose Ql (U)NegativeNormalNEGATIVEPeoples HospitalComment on above:Performed By: #### HIV12 #### [facility] [address] [place] [address] [address] Michele ObrienHemoglobin Ql (U)MODERATEAbnormalNEGATIVEPeoples Hospital Comment on above:Performed By: #### HIV12 #### [facility] [address] [place] [address] [address] Michele ObrienKetones Ql (U)NegativeNormalNEGATIVEPeoples HospitalComment on above:Performed By: #### HIV12 #### [facility] [address] [place] [address] Dr. Michele ObrienLEUKOCYTESNegativeNormalNEGATIVEPeoples HospitalComment on above:Performed By: #### HIV12 #### [facility] [address] [place] [address] Dr. Michele ObrienNitrite Ql (U)NegativeNormalNEGATIVEPeoples HospitalComment on above:Performed By: #### HIV12 #### [facility] [address] [place] [address] [address] Michele ObrienpH (U)5.5 [pH]Normal5-9Peoples HospitalComment on above: Performed By: #### HIV12 #### [facility] [address] [place] [address] [address] Michele ObrienSPEC GRAVITY1.959Evjwwu0.005-<=1.025Peoples HospitalComment on above:Performed By: #### HIV12 #### [facility] [address] [place] [address] Dr. Michele Salazar PROTEINNegativePike County Memorial HospitalalNEGATIVE/ TRACEPeoples Hospital Comment on above:Performed By: #### HIV12 #### [facility] [address] [place] [address] [address] Michele Perez MICRO INDINDICATEDNoalThMercy Health St. Vincent Medical CenterComment on above: Performed By: #### HIV12 #### [facility] [address] [place] [address] Dr. Michele Barcenas Qn (U)0.2 {Ijeoma'U}/dLNormal0.2 - 1.0The [facility] on above:Performed By: #### HIV12 #### [facility] [address] [place] [address] Dr. Michele Fuchs HCG QUALon 11-85-2663RALPMMDQX, QUALNegativeNormalNEGATIVE The [facility] HospitalComment on above:Performed By: #### PREG #### [facility] [address] [place] [address] Dr. Michele Pena 14(COMP METB)on 22-30-3629Mxtfxks [Mass/Vol]3.4 g/dLNormal 3.4-5.0The [facility] HospitalComment on above:Performed By: #### CMP #### [facility] [address] [place] [address] Dr. Michele ObrienAlbumin/Globulin [Mass ratio]1.1 {ratio}NormalThe [facility] Hospitalment on above:Performed By: #### CMP #### [facility] [address] [place] [address] Dr. Michele Carranza [Catalytic activity/Vol]73 U/NVhsjef56-375Wmm [facility] Hospitalment on above:Performed By: #### CMP #### [facility] [address] [place] [address] Dr. Michele Glover [Catalytic activity/Vol]18 U/WBpfrkv85-83Vtt [facility] Hospitalment on above:Performed By: #### CMP #### [facility] [address] [place] [address] Dr. Michele Bautista gap [Moles/Vol]11.9 mmol/LNormalThe [facility] on above:Performed By: #### CMP #### [facility] [address] [place] [address] Dr. Michele ObrienAST [Catalytic activity/Vol]13 U/LCritically zlo09-43Mll [facility] HospitalComment on above:Performed By: #### CMP #### [facility] [address] [place] [address] [address] Michele ObrienBilirubin [Mass/Vol]0.1 mg/dLCritically low0.2-1.0The [facility] HospitalComment on above:Performed By: #### CMP #### [facility] [address] [place] [address] Dr. Michele ObrienCalcium [Mass/Vol]8.6 mg/dLNormal8.5-10.1[facility] Comment on above:Performed By: #### CMP #### [facility] [address] [place] [address] Dr. Michele ObrienChloride [Moles/Vol]105 mmol/EPumkxl92-079Wgx [facility] Comment on above:Performed By: #### CMP #### [facility] [address] [place] [address] Dr. Michele ObrienCO2 [Moles/Vol]26.7 mmol/PTrpqgz19.0-32.0[facility] Comment on above:Performed By: #### CMP #### [facility] [address] [place] [address] Dr. Michele ObrienCreatinine [Mass/Vol]0.85 mg/dLNormal0.55-1.02The [facility] HospitalComment on above:Performed By: #### CMP #### [facility] [address] [place] [address] Dr. Michele HaysGFR-AF CZECH>60Normal>=60The [facility] HospitalComment on above:Performed By: #### CMP #### [facility] [address] [place] [address] Dr. Michele HaysGFR-NON AF CZECH>60Normal>=60The [facility] HospitalComment on above:Performed By: #### CMP #### [facility] [address] [place] [address] Dr. Michele ObrienGlobulin (S) [Mass/Vol]3.1 g/dLNormalThe [facility] HospitalComment on above:Performed By: #### CMP #### [facility] [address] [place] [address] [address] Michele ObrienGlucose [Mass/Vol]123 mg/dLCritically jgap47-877Qqk [facility] HospitalComment on above:Performed By: #### CMP #### [facility] [address] [place] [address] [address] Michele ObrienPotassium [Moles/Vol]3.6 mmol/LNormal3.5-5.1The [facility] Comment on above:Performed By: #### CMP #### [facility] [address] [place] [address] [address] Michele ObrienProtein [Mass/Vol]6.5 g/dLNormal6.4-8.2[facility] Comment on above:Performed By: #### CMP #### [facility] [address] [place] [address] [address] Michele ObrienSodium [Moles/Vol]140 mmol/MTzgnvr312-453Ttm [facility] Comment on above:Performed By: #### CMP #### [facility] [address] [address] [address] Michele ObrienUrea nitrogen [Mass/Vol]14.0 mg/dLNormal7.0-18.0The [facility] HospitalComment on above:Performed By: #### CMP #### [facility] [address] [address] [address] Michele Colin nitrogen/Creatinine [Mass ratio]16.5 mg/mgNoFirelands Regional Medical Center South CampusComment on above:Performed By: #### CMP #### [facility] [address] [address] [address] Michele ObrienURINE MICROSCOPIC ONLYon 01-82-5955NNSORDXLYYYAMYgvgmxocHGMQ SEEN [facility] HospitalComment on above:Performed By: #### HIV12 #### [facility] [address] [address] [address] Michele ObrienBacteria identified Cx Nom (U)NOT INDICATEDNormalThe [facility]ariq HospitalComment on above:Performed By: #### HIV12 #### [facility] [address] [place] [address] Dr. Michele ObrienCASTDAREN SEENNormalNONE SEENOhioHealth Van Wert [facility] on above:Performed By: #### HIV12 #### [facility] [address] [place] [address] Dr. Michele ObrienCrystals LM Nom (Urine sed)NONE SEENNormalNONE SEENThe [facility]Com[facility] on above:Performed By: #### HIV12 #### [facility] [address] [place] [address] Dr. Bautista ChangEpithelial cells LM Ql (Urine sed)FEWAbnormalNONE SEEN /RAREThe [facility] on above:Performed By: #### HIV12 #### [facility] [address] [place] [address] Dr. Michele OakleyCOUSTRACEAbnormalNONE SEENOhioHealth Van Wert Hospital on above:Performed By: #### HIV12 #### [facility] [address] [place] [address] Dr. Michele ObrienIykzqIQK74-81Cypemtde1-2Fiy [facility] on above: Performed By: #### HIV12 #### [facility] [address] [place] [address] Dr. Michele ObrienWBC0-2AbnormalNONE SEENOhioHealth Van Wert Hospital on above: Performed By: #### HIV12 #### [facility] [address] [place] [address] Dr. Michele Crane 1 AND 2 WITH REFLEXon 21-11-5137SJB Screen 4th Generation wRfxNon-ReactiveNormalNon ReactiveThe [facility] on above:Result Comment: HIV Negative HIV-1/HIV-2 antibodies and HIV-1 p24 antigen were NOT detected. There is no laboratory evidence of HIV infection.Performed By: #### HIV12 #### [facility] [address] [place] [address] Dr. Michele ObrienFERRITINon 14-97-6546Ahttylnj [Mass/Vol]6.0 ng/mLCritically low 6.2-137.0The [facility] HospitalComment on above:Performed By: #### FERR, FETIBC #### [facility] [address] [place] [address] Dr. Michele ObrienFRELSA T3on 64-05-0498EMSO T31.87 pg/mlLCritically low2.18-3.98The [facility] HospitalComment on above:Performed By: #### HIV12 #### [facility] [address] [place] [address] Dr. Michele ObrienHEMOGRAM AND PLATELon 35-55-1417Jzixhljmfu (Bld) [Volume fraction]35.7 %Critically low36.0-48.0The [facility] HospitalComment on above: Performed By: #### HH #### [facility] [address] [place] [address] Dr. Michele ObrienHemoglobin (Bld) [Mass/Vol]10.4 g/dLCritically low12.0-16.0The [facility] HospitalComment on above:Performed By: #### HH #### [facility] [address] [place] [address] Dr. Michele Briones (RBC) [Entitic mass]20.0 pgCritically low26.7-34.0The [facility] on above:Performed By: #### HH #### [facility] [address] [place] [address] Dr. Michele Briones (RBC) [Mass/Vol]29.1 g/dLCritically low29.9-35.2The [facility] HospitalComment on above:Performed By: #### HH #### [facility] [address] [place] [address] Dr. Michele Briones (RBC) [Entitic vol]68.5 fLCritically low81.0-99.0The [facility] HospitalComment on above:Performed By: #### HH #### [facility] [address] [place] [address] Dr. Michele ObrienPLT241 103/ztYffacl126-042Pev [facility] HospitalComment on above: Performed By: #### HH #### [facility] [address] [place] [address] Dr. Michele ObrienRBC5.21 106/ulNormal4.20-5.40The [facility] HospitalComment on above:Performed By: #### HH #### [facility] [address] [place] [address] Dr. Michele ObrienWBC6.9 103/ulNormal4.0-11.0The [facility] HospitalComment on above: Performed By: #### HH #### [facility] [address] [place] [address] Dr. Michele Kee AND TIBCon 10-16-2022% SATURATION4.5 %NormalThe [facility] HospitalComment on above:Performed By: #### GIBRAN FETIBC #### [facility] [address] [place] [address] Dr. Michele Kee [Mass/Vol]18.0 ug/dLCritically low50.0-170.0The [facility] HospitalComment on above:Performed By: #### GIBRAN FETIBC #### [facility] [address] [place] [address] Dr. Michele Cmapbell BKWVGC658.0 ug/bVUhsajm728.0-450.0[facility] Comment on above:Performed By: #### GIBRAN, FETIBC #### [facility] [address] [place] [address] Dr. Michele Crockett W/ REFLEX TO FT4on 47-51-0552QMT6.577 uIU/mLNormal0.358-3.740 [facility] HospitalComment on above:Performed By: #### HIV12 #### [facility] [address] [place] [address] Dr. Michele ObrienVITAMIN Con 69-45-9406Cnpofyx C0.2 mg/dLCritically low0.4-2.0[facility] HospitalComment on above:Result Comment: Vitamin C deficiency is generally defined as plasma or serum concentrations less than 0.2 mg/dL and levels between 0.2 and 0.4 mg/dL are considered low.Performed By: #### GIBRAN FETIBC #### [facility] [address] [place] [address] Dr. Michele Hernandez Aon 29-60-4691Etqszhq A33.6 ug/dGUcfxws77.9-57.3The [facility] HospitalComment on above:Result Comment: Reference intervals for vitamin [...] and Drug Administration.Performed By: #### VITAMA #### [facility] [address] [place] [address] Dr. Michele ObrienVITAMIN Kodi 52-64-6658Lzqxltu E (Alpha T)11.9 mg/LNormal5.9-19.4 The [facility] HospitalComment on above:Performed By: #### VITAE #### [facility] [address] [place] [address] Dr. Michele ObrienVitamin E (Gamma T)1.5 mg/LNormal0.7-4.9The [facility] Comment on above:Result Comment: Reference intervals for alpha and gamma- tocopherol determined from National Health and Nutrition Examination Survey, 0432-2260. Individuals with alpha-tocopherol levels less than 5.0 mg/L are considered vitamin E deficient.Performed By: #### VITAE #### [facility] [address] [place] [address] Dr. Michele ObrienVITAMIN Garrett 71-50-1642Ceqbihf K10.24 ng/mLNormal0.10-2.20The [facility] HospitalComment on above:Performed By: #### GIBRAN FETIBC #### [facility] [address] [place] [address] Dr. Michele ObrienSECHAYOIUM, PLASMAon 62-78-6206Zlbzyndn, Serum/Gqouzd509 ug/LNormal 93-198The [facility] HospitalComment on above:Performed By: #### HIV12 #### [facility] [address] [place] [address] Dr. Michele ObrienVITAMIN B1 (THIAMINE)on 97-10-2980Wxb. B1, Whole Ochls237.2 nmol/VHfboeu98.5-200.0The [facility]ment on above:Performed By: #### RILEY LEARY #### [facility] [address] [place] [address] Dr. Michele Boland SERUM OR PLASMAon 73-46-0910Jhfj, Plasma or Serum69 ug/dL Simndx95-020Dke [facility]Com[facility] on above:Result Comment: Detection Limit = 5Performed By: #### HIV12 #### [facility] [address] [place] [address] Dr. Michele ObrienFERRITINon 11-37-0219Nqsbsqco [Mass/Vol]5.0 ng/mLCritically low 6.2-137.0The [facility] on above:Performed By: #### RILEY LEARY #### [facility] [address] [place] [address] Dr. Michele ObrienFREE T4on 60-26-6893Nqxj T4 [Mass/Vol]1.01 ng/dLNormal0.76-1.46 The [facility] on above:Performed By: #### HIV12 #### [facility] [address] [place] [address] Dr. Michele ObrienGLYCOHEMOGLOBIN A1Con 55-29-7274YGZ RECOMMENDATIONSEE BELOWNormal The [facility]Com[facility] on above:Result Comment: ADA RECOMMENDED LIMIT 4.0 - 6.0 ADA THERAPEUTIC TARGET < 7.0 ACTION SUGGESTED > 7.0Performed By: #### HIV12 #### [facility] [address] [place] [address] Dr. Michele ObrienGlucose [Mass/Vol]80 mg/dLNormalThe [facility] on above:Performed By: #### HIV12 #### [facility] [address] [place] [address] Dr. Michele ObrienHbA1c (Bld) [Mass fraction]4.4 %Critically low4.5-6.2The [facility] HospitalComment on above:Performed By: #### HIV12 #### [facility] [address] [place] [address] Dr. Michele ObrienHEMOGRAM AND PLATELon 67-02-1322Kdkzdksyxz (Bld) [Volume fraction]29.3 %Critically low36.0-48.0The [facility] HospitalComment on above: Performed By: #### HIV12 #### [facility] [address] [place] [address] Dr. Michele ObrienHemoglobin (Bld) [Mass/Vol]9.3 g/dLCritically low12.0-16.0The [facility] HospitalComment on above:Performed By: #### HIV12 #### [facility] [address] [place] [address] Dr. Michele BrionesH (RBC) [Entitic mass]20.1 pgCritically low26.7-34.0The [facility] HospitalComment on above:Performed By: #### HIV12 #### [facility] [address] [place] [address] Dr. Michele BrionesHC (RBC) [Mass/Vol]31.7 g/hDFadjyk61.9-35.2The [facility] HospitalComment on above:Performed By: #### HIV12 #### [facility] [address] [place] [address] Dr. Michele BrionesV (RBC) [Entitic vol]63.4 fLCritically low81.0-99.0The [facility] HospitalComment on above:Performed By: #### HIV12 #### [facility] [address] [place] [address] Dr. Michele ObrienPLT213 103/ghWlvmxt891-104Lhw [facility] HospitalComment on above: Performed By: #### HIV12 #### [facility] [address] [place] [address] Dr. Michele ObrienRBC4.62 106/ulNormal4.20-5.40The [facility] HospitalComment on above:Performed By: #### HIV12 #### [facility] [address] [place] [address] Dr. Michele ObrienWBC5.8 103/ulNormal4.0-11.0The [facility] HospitalComment on above: Performed By: #### HIV12 #### [facility] [address] [place] [address] Dr. Michele Kee AND TIBCon 08-20-2022% SATURATION6.5 %NormalThe [facility] HospitalComment on above:Performed By: #### FERR, FETIBC #### [facility] [address] [place] [address] Dr. Michele Kee [Mass/Vol]22.0 ug/dLCritically low50.0-170.0The [facility] HospitalComment on above:Performed By: #### FERR, FETIBC #### [facility] [address] [place] [address] Dr. Michele ArguellesC OJUNZX197.0 ug/yNFvnire361.0-450.0[facility] Comment on above:Performed By: #### FERR, FETIBC #### [facility] [address] [place] [address] Dr. Michele ObrienLIPID PROFILEon 68-22-1968MQMO-HDL RATIO NORMSParkwood HospitalComment on above:Result Comment: 3.3 - 4.4 LOW RISK 4.4 - 7.1 AVERAGE RISK 7.1 - 11.0 MODERATE RISK >11.0 HIGH RISKPerformed By: #### FERR, FETIBC #### [facility] [address] [place] [address] Dr. Michele ObrienCholesterol [Mass/Vol]146 mg/dLNormal<=200[facility] Comment on above:Performed By: #### FERR, FETIBC #### [facility] [address] [place] [address] Dr. Michele ObrienCholesterol in HDL [Mass/Vol]58 mg/pHPuzrma42-61Eig [facility] HospitalComment on above:Performed By: #### FERR, FETIBC #### [facility] [address] [address] [address] Michele ObrienCholesterol in LDL [Mass/Vol]66.8 mg/dLSycamore Medical CenterComment on above:Performed By: #### FERR, FETIBC #### [facility] [address] [place] [address] Dr. Michele Esparzaesterol.total/Cholesterol in HDL [Mass ratio]2.5 {ratio} NormalThe [facility] HospitalComment on above:Performed By: #### FERR, FETIBC #### [facility] [address] [place] [address] Dr. Michele Katz NORMAL> or = 60 mg/dl - LOW CARDIOVASCULAR RISK <40 mg/dl - HIGH CARDIOVASCULAR RISKSycamore Medical CenterComment on above:Performed By: #### FERR, FETIBC #### [facility] [address] [place] [address] Dr. Michele Lubin CALC NORMALSEE BELOWSycamore Medical CenterComment on above:Result Comment: <100 mg/dl OPTIMAL 100 - 129 mg/dl NEAR OR ABOVE OPTIMAL 130 - 159 mg/dl BORDERLINE HIGH 160 - 189 mg/dl HIGH >190 mg/dl VERY HIGH Performed By: #### FERR, FETIBC #### [facility] [address] [place] [address] Dr. Michele ObrienTriglyceride [Mass/Vol]106 mg/dLNormal<=150The [facility] Comment on above:Performed By: #### FERR, FETIBC #### [facility] [address] [place] [address] Dr. Michele MorganLDL CALC21.2 mg/dLNoFirelands Regional Medical Center South CampusComment on above: Performed By: #### FERR, FETIBC #### [facility] [address] [place] [address] Dr. Michele ObrienPROElizabeth 14(COMP METB)on 39-57-2972Ckmkgzh [Mass/Vol]3.5 g/dLNormal 3.4-5.0[facility] HospitalComment on above:Performed By: #### FERR, FETIBC #### [facility] [address] [address] [address] Michele ObrienAlbumin/Globulin [Mass ratio]1.2 {ratio}NormalThe [facility] HospitalComment on above:Performed By: #### FERR, FETIBC #### [facility] [address] [address] [address] Michele Carranza [Catalytic activity/Vol]76 U/PIxmfny21-168Jtm [facility] HospitalComment on above:Performed By: #### FERR, FETIBC #### [facility] [address] [address] [address] Michele Glover [Catalytic activity/Vol]16 U/DPtqdla73-96Dkn [facility] HospitalComment on above:Performed By: #### FERR, FETIBC #### [facility] [address] [address] [address] Michele Duncanon gap [Moles/Vol]10.0 mmol/LNormalThe [facility] Comment on above:Performed By: #### FERR, FETIBC #### [facility] [address] [address] [address] Michele ObrienAST [Catalytic activity/Vol]16 U/WHoprtl70-98Lkv [facility] Hospitalment on above:Performed By: #### FERR, FETIBC #### [facility] [address] [address] [address] Michele ObrienBilirubin [Mass/Vol]0.3 mg/dLNormal0.2-1.0The [facility] Comment on above:Performed By: #### FERR, FETIBC #### [facility] [address] [address] [address] Michele ObrienCalcium [Mass/Vol]8.5 mg/dLNormal8.5-10.1The [facility] Comment on above:Performed By: #### FERR, FETIBC #### [facility] [address] [address] [address] Michele ObrienChloride [Moles/Vol]106 mmol/NEpfjda93-717Nvq [facility] Comment on above:Performed By: #### FERR, FETIBC #### [facility] [address] [place] [address] Dr. Michele ObrienCO2 [Moles/Vol]30.8 mmol/JZnbbdo10.0-32.0The [facility] Comment on above:Performed By: #### FERR, FETIBC #### [facility] [address] [place] [address] Dr. Michele ObrienCreatinine [Mass/Vol]0.68 mg/dLNormal0.55-1.02The [facility] HospitalComment on above:Performed By: #### FERR, FETIBC #### [facility] [address] [place] [address] Dr. Michele HaysGFR-AF CZECH>60Normal>=60The [facility] HospitalComment on above:Performed By: #### FERR, FETIBC #### [facility] [address] [place] [address] Dr. Michele HaysGFR-NON AF CZECH>60Normal>=60The [facility] HospitalComment on above:Performed By: #### FERR, FETIBC #### [facility] [address] [place] [address] Dr. Michele ObrienGlobulin (S) [Mass/Vol]2.8 g/dLNormalThe [facility] HospitalComment on above:Performed By: #### FERR, FETIBC #### [facility] [address] [place] [address] Dr. Michele ObrienGlucose [Mass/Vol]77 mg/zBBysekd83-017Trz [facility] Comment on above:Performed By: #### FERR, FETIBC #### [facility] [address] [place] [address] Dr. Michele ObrienPotassium [Moles/Vol]3.8 mmol/LNormal3.5-5.1The [facility] Comment on above:Performed By: #### FERR, FETIBC #### [facility] [address] [place] [address] Dr. Michele ObrienProtein [Mass/Vol]6.3 g/dLCritically low6.4-8.2The [facility] HospitalComment on above:Performed By: #### FERR, FETIBC #### [facility] [address] [place] [address] Dr. Michele ObrienSodium [Moles/Vol]143 mmol/GGxduwy966-124Ito [facility] Comment on above:Performed By: #### FERR, FETIBC #### [facility] [address] [place] [address] Dr. Michele ObrienUrea nitrogen [Mass/Vol]10.0 mg/dLNormal7.0-18.0The [facility] HospitalComment on above:Performed By: #### FERR, FETIBC #### [facility] [address] [place] [address] Dr. Michele ObrienUrea nitrogen/Creatinine [Mass ratio]14.7 mg/mgNormalThe [facility] HospitalComment on above:Performed By: #### FERR, FETIBC #### [facility] [address] [place] [address] Dr. Michele ObrienTSHomary 30-18-3743YDZ2.302 uIU/mLCritically high0.358-3.740The [facility] HospitalComment on above:Performed By: #### FERR, FETIBC #### [facility] [address] [place] [address] Dr. Michele Beaulieu B12 AND FOLATEon 98-41-1235Wzvddomhj (Vitamin B12) [Mass/Vol] 433.0 pg/iVArktzc198.0-986.0The [facility] HospitalComment on above:Performed By: #### B12FOL, VITAD #### [facility] [address] [place] [address] Dr. Michele ObrienFOLATE18.00 ng/mLNormal8.60-58.90The [facility] HospitalComment on above:Performed By: #### B12FOL, VITAD #### [facility] [address] [place] [address] Dr. Michele ObrienVITAMIN D 25 OHon 69-10-7457JAF D 25-OH33.4 ng/mLNPeoples HospitalComment on above:Performed By: #### B12FOL, VITAD #### [facility] [address] [place], [place] [address] Dr. Michele Singh [facility] HospitalComment on above: Result Comment: <20 ng/mL Vit D deficient 20 - <30 ng/mL Vit D insufficient 30 - 100 ng/mL Vit D sufficient >100 ng/mL Potential ToxicityPerformed By: #### B12FOL, VITAD #### [facility] [address] [place], [place] [address] Dr. Michele Obrien Vital Signs Date TimeVital SignValuePerforming RzuqiwfkhDqfbbnwd32-40-3699 09:56-0400Body ypnbjc978.8 cmElisabeth Beckman APRN Work Phone: [phone]07-29-2025 09:56-0400 Body mass index (BMI) [Ratio]39.3 kg/z9GjmcpnpnElisabeth Beckman IRRIGATION SERVICE TECHNICIAN Work Phone: [phone]07-29-2025 09:56-0400 Body madrfyotqam58.6 [degF]Elisabeth Beckman IRRIGATION SERVICE TECHNICIAN Work Phone: [phone]07-29-2025 09:56-0400 Body ymqmww984.28 kgElisabeth Beckman IRRIGATION SERVICE TECHNICIAN Work Phone: [phone]07-29-2025 09:56-0400 Diastolic blood dvnlukqz56 mm[Hg]Elisabeth Beckman IRRIGATION SERVICE TECHNICIAN Work Phone: [phone]07-29-2025 09:56-0400 Heart rate69 /minElisabeth Beckman IRRIGATION SERVICE TECHNICIAN Work Phone: [phone]07-29-2025 09:56-0400 SaO2% (BldA) [Mass fraction]98 %Elisabeth Beckman APRN Work Phone: [facility]07-29-2025 09:56-0400 Systolic blood mm[Hg]Elisabeth Karuna IRRIGATION SERVICE TECHNICIAN Work Phone: [facility]07-28-2025 10:25-0400 Body attukk266.8 cmRan Osullivan DPM Work Phone: [facility] HospitalZuvyapddew57-04-7285 10:25-0400Body mass index (BMI) [Ratio]45.2 kg/s9VsqstryoRan Osullivan DPM Work Phone: [facility] HospitalBihttouatu04-43-4460 10:25-0400Body tysfwp272.88 kgNicjannette Osullivan DPM Work Phone: [facility] HospitalTvvlsftodb52-49-5922 10:25-0400Respiratory rate16 /minNicjannette Osullivan DPM Work Phone: [facility] HospitalDqyztikecb54-00-7375 10:59-0400Body .8 cmKibanner Raoul IRRIGATION SERVICE TECHNICIAN.VETERINARIAN HELPER Work Phone: [facility]05-30-2025 10:59-0400Body mass index (BMI) [Ratio]41.61 kg/i6Nibiuokh Raoul IRRIGATION SERVICE TECHNICIAN.VETERINARIAN HELPER Work Phone: [facility]05-30-2025 10:59-0400Body temperature 98.1 [degF][facility] IRRIGATION SERVICE TECHNICIAN.VETERINARIAN HELPER Work Phone: [facility]05-30-2025 10:59-0400Body afxhha362.54 kgKierUnited States Marine Hospital IRRIGATION SERVICE TECHNICIAN.VETERINARIAN HELPER Work Phone: [facility]05-30-2025 10:59-0400Diastolic blood mm[Hg]Khoa Dudley IRRIGATION SERVICE TECHNICIAN.VETERINARIAN HELPER Work Phone: [facility]05-30-2025 10:59-0400Heart rate74 /min [facility] IRRIGATION SERVICE TECHNICIAN.VETERINARIAN HELPER Work Phone: [facility]05-30-2025 10:59-0400Systolic blood qzqknavw967 mm[Hg][facility] IRRIGATION SERVICE TECHNICIAN.VETERINARIAN HELPER Work Phone: [facility]05-22-2025 11:05-0400Body .8 cmH[facility]05-[facility]-2025 11:05-0400Body mass index (BMI) [Ratio]42.3 kg/o8SwpzmnezxHarrison [facility] Hospital05-22-2025 11:05-0400Body nlqznqruvbr52.7 [degF][facility]05-22-2025 11:05-0400Body ixnnid892.8 kgHarrison [facility] Hospital05-22-2025 11:05-0400Diastolic blood pkrfqyes38 mm[Hg][facility]05-22-2025 11:05-0400 Heart rate87 /minHarrison Community Hospital05-22-2025 11:05-7907DhW2% (BldA) [Mass fraction]97 %[facility]05-22-2025 11:05-0400 Systolic blood cjtpjuou530 mm[Hg][facility]05-16-2025 11:07-0400Body ymhahi669.8 cmK[facility] IRRIGATION SERVICE TECHNICIAN.VETERINARIAN HELPER Work Phone: [facility]05-16-2025 11:07-0400Body mass index (BMI) [Ratio]41.75 kg/p7LjkpglwgKaiser Foundation Hospital IRRIGATION SERVICE TECHNICIAN.VETERINARIAN HELPER Work Phone: [facility]05-16-2025 11:07-0400Body temperature 96.91 [degF][facility] IRRIGATION SERVICE TECHNICIAN.VETERINARIAN HELPER Work Phone: [facility]05-16-2025 11:07-0400Body xvxylz595 kg [facility] IRRIGATION SERVICE TECHNICIAN.VETERINARIAN HELPER Work Phone: [facility]05-16-2025 11:07-0400Diastolic blood lygkyryz46 mm[Hg][facility] IRRIGATION SERVICE TECHNICIAN.VETERINARIAN HELPER Work Phone: [facility]05-16-2025 11:07-0400Heart rate85 /min [facility] IRRIGATION SERVICE TECHNICIAN.VETERINARIAN HELPER Work Phone: [facility]05-16-2025 11:07-0400Systolic blood cdzcholq023 mm[Hg][facility] IRRIGATION SERVICE TECHNICIAN.VETERINARIAN HELPER Work Phone: [facility]05-07-2025 10:59-0400Body vgweno275.8 cmKiSt. Francis Medical Center IRRIGATION SERVICE TECHNICIAN.VETERINARIAN HELPER Work Phone: [phone]05-07-2025 10:59-0400Body mass index (BMI) [Ratio]42.47 kg/h9TskohsovKaiser Foundation Hospital IRRIGATION SERVICE TECHNICIAN.VETERINARIAN HELPER Work Phone: [phone]05-07-2025 10:59-0400Body temperature 97.3 [degF][facility] IRRIGATION SERVICE TECHNICIAN.VETERINARIAN HELPER Work Phone: [facility]05-07-2025 10:59-0400Body tfqufr659.26 kgKaiser Foundation Hospital IRRIGATION SERVICE TECHNICIAN.VETERINARIAN HELPER Work Phone: [phone]05-07-2025 10:59-0400Diastolic blood fvvriezn07 mm[Hg][facility] IRRIGATION SERVICE TECHNICIAN.VETERINARIAN HELPER Work Phone: [facility]05-07-2025 10:59-0400Heart rate81 /min [facility] IRRIGATION SERVICE TECHNICIAN.VETERINARIAN HELPER Work Phone: [facility]05-07-2025 10:59-0400Systolic blood vigdudln367 mm[Hg][facility] IRRIGATION SERVICE TECHNICIAN.VETERINARIAN HELPER Work Phone: [phone]04-08-2025 10:04-0400Body slugdp603.8 cmPacc 6 Work Phone: [phone]04-08-2025 10:04-0400Body mass index (BMI) [Ratio]45.52 kg/m2Pacc 6 Work Phone: [phone]04-08-2025 10:04-0400Body temperature 97 [degF]Pacc 6 Work Phone: [phone]04-08-2025 10:04-0400Body rxjzxa786.9 kgPacc 6 Work Phone: [facility]04-08-2025 10:04-0400Diastolic blood ycdezrvn43 mm[Hg]Pacc 6 Work Phone: [phone]04-08-2025 10:04-0400Heart rate78 /min Pacc 6 Work Phone: [phone]04-08-2025 10:04-2242EuK9% (BldA) [Mass fraction]98 %Pacc 6 Work Phone: [phone]04-08-2025 10:04-0400Systolic blood zagrfjjk087 mm[Hg]Pacc 6 Work Phone: [facility]04-03-2025 13:01-0400Body pphyth425.8 cmNicholas Brown DPM Work Phone: [facility] HospitalIlxamkdifz14-53-2664 13:01-0400Body mass index (BMI) [Ratio]45.2 kg/y9Ixqcgvkh Brown DPM Work Phone: 1(838)693-[address] [place], [place] [address]Guoyzanefj69-25-1545 13:01-0400Body ehhqfs875.88 kgNicholas Brown DPM Work Phone: 1(886)987-[facility] HospitalDdlmukdexx57-20-2981 13:01-0400Respiratory rate16 /minNicholas Brown DPM Work Phone: [facility] HospitalBzvybytahr42-86-5210 09:44-0500Body .8 cmNicholas Brown DPM Work Phone: [facility] HospitalWkgtzxwzaq17-28-3482 09:44-0500Body mass index (BMI) [Ratio]45.2 kg/p6Jcezgnjf Brown DPM Work Phone: [facility] HospitalIqsfjgccia50-58-2328 09:44-0500Body gavkdl127.88 kgNicholas Brown DPM Work Phone: [facility] HospitalKzolzjqnwe26-32-2348 09:44-0500Respiratory rate16 /minNicholas Brown DPM Work Phone: [phone])722-[address] [place], [place] [address]Dgdolshkgh44-07-5625 11:22-0500Body .8 [facility] 11:22-0500Body mass index (BMI) [Ratio]44.9 kg/k5IcrmfvmcnHarrison [facility] Hospital02-14-2025 11:22-0500Body gcelkybmifo30.8 [degF][facility]02-14-2025 11:0500Body fbtgue055.97 kgH[facility]02-14-2025 11:22-0500Diastolic blood lgosofca66 mm[Hg][facility]02-14-2025 11:22-0500 Heart rate93 /minH[facility] Hospital02-14-2025 11:4789AgN1% (BldA) [Mass fraction]97 %[facility]02-14-2025 11:22-0500 Systolic blood coohthhw083 mm[Hg][facility]02-03-2025 10:20-0500Body avlnzp009.8 cmNicjannette Brown DPM Work Phone: [phone] [place], [place] [address]Gnpupzzydh67-42-2824 10:20-0500Body mass index (BMI) [Ratio]45.2 kg/t4Qiupkugh Brown DPM Work Phone: [facility] HospitalOjqtysxojh68-21-2188 10:20-0500Body kjipkq567.88 kgNicjannette Brown DPM Work Phone: [facility] HospitalFykilgjnsy90-44-4922 10:20-0500Respiratory rate18 /minNicjannette Brown DPM Work Phone: [phone](061)726-[address] [place], [place] [address]Dysqqchlhg35-72-1682 10:07-0500Body qynysm730.8 [facility] Work Phone: [facility] HospitalOeodfyvqqy70-05-0770 10:07-0500Body mass index (BMI) [Ratio]43.62 kg/m2ToSt. [facility] Work Phone: noSaint Luke's Health SystemQjjdtjgafw73-85-7999 10:07-0500Body ckibxk112.89 kgToSt. Mary's Medical Center PA Work Phone: [facility] HospitalAmyjekelxj73-30-8534 10:59-0500Body .8 cm[facility]01-15-2025 10:59-0500Body mass index (BMI) [Ratio]46 kg/d1KzxqjinqqHarrison Community Hospital01-15-2025 10:59-0500Body zwkyugzyein89.3 [degF][facility]01-15-2025 10:59-0500Body smbasb023.65 kgH[facility]01-15-2025 10:59-0500Diastolic blood mm[Hg][facility]01-15-2025 10:59-0500 Heart rate78 /minH[facility] Hospital01-15-2025 10:59-0103IxE5% (BldA) [Mass fraction]98 %[facility]01-15-2025 10:59-0500 Systolic blood wgsxaslj016 mm[Hg][facility]11-20-2024 09:58-0500Body .8 [facility] Work Phone: [phone]11-20-2024 09:58-0500Body mass index (BMI) [Ratio]43.62 kg/m2[facility] Work Phone: [phone] [place], [place] 6405811-20-2024 09:58-0500Body xbacsc709.89 [facility]San [facility] Work Phone: [phone]11-19-2024 09:39-0500Body fwofyd963.8 cmLucas Shammo WINDOWS SECURITY ENGINEER-BC Work Phone: [facility]11-19-2024 09:39-0500 Body mass index (BMI) [Ratio]43.7 kg/l5Scjwy Shammo WINDOWS SECURITY ENGINEER-BC Work Phone: [facility]11-19-2024 09:39-0500 Body mqmmaa348.34 kgLucas Shammo WINDOWS SECURITY ENGINEER-BC Work Phone: [facility]11-19-2024 09:39-0500 Diastolic blood bogpbdpr05 mm[Hg]Yandel Shammo WINDOWS SECURITY ENGINEER-BC Work Phone: [phone] [place], [place] 5258511-19-2024 09:39-0500 Heart rate74 /minYandel Shammo WINDOWS SECURITY ENGINEER-BC Work Phone: [phone] [place], [place] 9782311-19-2024 09:39-0500 SaO2% (BldA) [Mass fraction]97 %Yandel Shammo WINDOWS SECURITY ENGINEER-BC Work Phone: [phone])305-[address] [place], [place] 9782311-19-2024 09:39-0500 Systolic blood ftzxezvg619 mm[Hg]Yandel Shammo WINDOWS SECURITY ENGINEER-BC Work Phone: [phone]11-07-2024 13:17-0500 Body rwpgek647.[address] Work Phone: c[facility] HospitalCzeckj82-25-8599 13:17-0500Body mass index (BMI) [Ratio]43.76 kg/r8Pmxex Nadia RD Work Phone: c[facility] HospitalLpkdjx56-60-1224 13:17-0500Body eliimz991.[address] Work Phone: [facility] ClinicComment on above:xegvmh70-83-7192 14:03-0400Body mass index (BMI) [Ratio]43.62 kg/t0QbvglkgRenetta Ruano MD Work Phone: [facility]10-24-2024 14:03-0400Body mqmdoj906.89 kgRenetta Ruano MD Work Phone: [facility]10-24-2024 10:00-0400Body rhutpz765.8 cmFNP-BC Yandel Shammo Work Phone: [phone]-[facility]10-24-2024 10:00-0400 Body mass index (BMI) [Ratio]43.7 kg/y5IBY-GC Yandel Shammo Work Phone: 1([phone])313-[address] [place], [place] 9782310-24-2024 10:00-0400 Body iweacgsryio23.4 [degF]WINDOWS SECURITY ENGINEER-BC Yandel Shammo Work Phone: [phone])384-[address] [place], [place] 9782310-24-2024 10:00-0400 Body wqikpw334.06 kgFNP-BC Yandel Shammo Work Phone: [phone])[address] [place], [place] 5258510-24-2024 10:00-0400 Diastolic blood mm[Hg]WINDOWS SECURITY ENGINEER-BC Yandel Shammo Work Phone: [phone])[address] [place], [place] 5258510-24-2024 10:00-0400 SaO2% (BldA) [Mass fraction]98 %WINDOWS SECURITY ENGINEER-BC Yandel Shammo Work Phone: 1(419)[address] [place], [place] 5258510-24-2024 10:00-0400 Systolic blood betdtxkw065 mm[Hg]WINDOWS SECURITY ENGINEER-BC Yandel Shammo Work Phone: 1(419)[address] [place], [place] 5258510-10-2024 10:45-0400 Body ncjwoa280.8 cmFNP-BC Yandel Shammo Work Phone: [phone])[address] [place], [place] 5258510-10-2024 10:45-0400 Body mass index (BMI) [Ratio]43.4 kg/e9UOJ-UY Yandel Shammo Work Phone: [phone])[address] [place], [place] 5258510-10-2024 10:45-0400 Body ucdapx073.43 kgFNP-BC Yandel Shammo Work Phone: [phone])[address] [place], [place] 5258510-10-2024 10:45-0400 Diastolic blood ogybvigy79 mm[Hg]WINDOWS SECURITY ENGINEER-BC Yandel Shammo Work Phone: [phone])[address] [place], [place] 5258510-10-2024 10:45-0400 Heart rate73 /minFNP-BC Yandel Shammo Work Phone: [phone])[address] [place], [place] 5258510-10-2024 10:45-0400 Respiratory rate18 /minFNP-BC Yandel Shammo Work Phone: [phone])[address] [place], [place] 5258510-10-2024 10:45-0400 SaO2% (BldA) [Mass fraction]98 %WINDOWS SECURITY ENGINEER-BC Yandel Shammo Work Phone: [phone])[address] [place], [place] 5258510-10-2024 10:45-0400 Systolic blood dpbfymyd432 mm[Hg]WINDOWS SECURITY ENGINEER-BC Yandel More Work Phone: [facility]09-24-2024 09:38-0400 Body .8 cmAyse Grissom MD Work Phone: [facility]09-24-2024 09:38-0400Body mass index (BMI) [Ratio]43.81 kg/g8UxzqctAyse Grissom MD Work Phone: [facility]09-24-2024 09:38-0400Body koskju700.5 kgAyse Grissom MD Work Phone: [facility]09-24-2024 09:38-0400Diastolic blood mm[Hg]Ayse Grissom MD Work Phone: [facility]09-24-2024 09:38-0400Heart rate80 /min Ayse Grissom MD Work Phone: [facility]09-24-2024 09:38-0400Systolic blood ppaukvqd388 mm[Hg]Ayse Grissom MD Work Phone: [facility]09-16-2024 14:36-0400Body nnurob067.8 Trudi Jeff MD Work Phone: [facility]09-16-2024 14:36-0400Body mass index (BMI) [Ratio]43.05 kg/r6BpstbRocio Jeff MD Work Phone: [facility]09-16-2024 14:36-0400Body temperature 97.7 [degF]Rocio Jeff MD Work Phone: [facility]09-16-2024 14:36-0400Body xkryyc479.08 kgRocio Jeff MD Work Phone: [facility]09-16-2024 14:36-0400Diastolic blood jexkpzew95 mm[Hg]Rocio Jeff MD Work Phone: [place] [address]-16-2024 14:36-0400Heart rate72 /min Rocio Jeff MD Work Phone: [facility]09-16-2024 14:36-0400Systolic blood sxlozzme199 mm[Hg]Rocio Jeff MD Work Phone: [facility]08-13-2024 10:03-0400Blood Pressure LocationMichael NILL [phone] [place] 03-13-2024 10:03-0400Diastolic blood xgfvcupe69 mm[Hg]King NILL [phone]-XyoztMer[facility] [place] 03-13-2024 10:03-0400Heart rate80 /minMichael NILL [phone]-MsqrnMercy Health [facility] [place] 03-13-2024 10:03-0400Respiratory rate16 /minMichael NILL [phone]-PfebyMercy Health [facility] [place] 03-13-2024 10:03-0400Systolic blood tsftnefa804 mm[Hg]King NILL [phone]-UluiuVan [facility]ert [facility] 02-28-2024 13:15-0400Body .34 cmFNP-BC Yandel Shammo Work Phone: [facility]07-30-2024 13:15-0400 Body mass index (BMI) [Ratio]42.4 kg/g3NKZ-MO Yandel Shammo Work Phone: [facility]07-30-2024 13:15-0400 Body yymtiv213.89 kgFNP-BC Yandel Shammo Work Phone: [facility]07-30-2024 13:15-0400 Diastolic blood ccntozxc43 mm[Hg]WINDOWS SECURITY ENGINEER-BC Yandel Shammo Work Phone: [facility]07-30-2024 13:15-0400 Heart rate76 /minFNP- Yandel Shammo Work Phone: [facility]07-30-2024 13:15-0400 SaO2% (BldA) [Mass fraction]100 %[facility]- Yandel Shammo Work Phone: [facility]07-30-2024 13:15-0400 Systolic blood ydfrjwml307 mm[Hg]WINDOWS SECURITY ENGINEER- Yandel Shammo Work Phone: 1(884)473-[facility]02-22-2024 09:42-0500 Body mass index (BMI) [Ratio]44.85 kg/n4WucljrHéctor Aguilar MD Work Phone: 1(633)[address]02-22-2024 09:42-0500Body .79 kgHéctor Aguilar MD Work Phone: 1(585)[address] [place], [place] 4810402-22-2024 09:42-0500Diastolic blood jwvpitsv06 mm[Hg]Héctor Aguilar MD Work Phone: 1(324)[address]02-22-2024 09:42-0500Heart rate 82 /minHéctor Aguilar MD Work Phone: 1([phone])[address]02-22-2024 09:42-0500Systolic blood tywnzimw916 mm[Hg]Héctor Aguilar MD Work Phone: 1(070)[address]02-15-2024 11:30-0500Body mass index (BMI) [Ratio]43.52 kg/m2Kassandra ALBERTO Work Phone: [facility] HospitalOpvsqzzcml49-55-0626 11:30-0500Body .52 kgKassandra ALBERTO Work Phone: [facility] HospitalDgqfabgvvn71-46-7504 11:30-0500Diastolic blood ktehejlk74 mm[Hg]Kassandra ALBERTO Work Phone: [facility] HospitalOvnypfwyzd62-78-4542 11:30-0500Systolic blood mm[Hg]Kassandra Leonard PA Work Phone: [facility] HospitalBfutyxlwyx84-51-6031 15:30-0400Body .05 kgLacher Gallego Other [place] [facility] Other 10-19-2023 15:30-0400Diastolic blood hcusbkvq56 mm[Hg] Denys Gallego Other [place] [facility] Other 10-19-2023 15:30-0400Systolic blood rapovvjv397 mm[Hg] Denys Gallego Other [facility] Other 08-15-2023 10:48-0400Diastolic blood cnyapert71 mm[Hg] WINDOWS SECURITY ENGINEER-BC Yandel Shammo Work Phone: 1(934)183-[facility]08-15-2023 10:48-0400 Heart rate63 /minFNP-BC Yandel Shammo Work Phone: 1(539)708-[address] [place], [place] 9782308-15-2023 10:48-0400 Respiratory rate16 /minFNP-BC Yandel Shammo Work Phone: [facility]08-15-2023 10:48-0400 SaO2% (BldA) [Mass fraction]99 %WINDOWS SECURITY ENGINEER-BC Yandel Shammo Work Phone: [facility]08-15-2023 10:48-0400 Systolic blood uskhackq495 mm[Hg]WINDOWS SECURITY ENGINEER-BC Yandel Shammo Work Phone: 0(076)061-[facility]08-15-2023 08:43-0400 Body wrwzny232.34 cmFNP-BC Yandel Shammo Work Phone: 6(040)884-[address] [place], [place] 9782308-15-2023 08:43-0400 Body fjdhltlccaf74.2 [degF]WINDOWS SECURITY ENGINEER-BC Yandel Shammo Work Phone: 0(785)321-[facility]08-15-2023 08:43-0400 Body yrwfge123.27 kgFNP-BC Yandelrico More Work Phone: [facility]06-19-2023 10:00-0400 Body kzwusm952.01 kgLacher Gallego Other [facility] Other 06-19-2023 10:00-0400Diastolic blood ozvvugod47 mm[Hg] Denys Selfack Other [facility] Other 06-19-2023 10:00-0400Systolic blood mm[Hg] Denys Gallego Other [facility] Other Encounters Encounter DateEncounter TypeCare ProviderFacilityStart: 06-11-2025 End: 64-99-4808qadgufghkuWwquss TannaFacility:FTMCStart: 06-11-2025 End: 61-17-0155Phoigfp encounter procedureBárbara Nguyen [facility] start: 02-26-2025 End: 36-14-4636nymqazrmhdGcfwrfze Rohrbacher APRN Work Phone: [facility] Work Phone: Start: 02-26-2025 End: 12-23-4557Gifjzsl encounter procedureElisabeth Beckman APRN [facility] Work Phone: Start: 02-25-2025 End: 28-09-5241Srpvbx Archie Osullivan DPM Work Phone: no Chris Santos PodiatryStart: 02-25-2025 End: 34-04-0592[place] Archie Osullivan DPM Work Phone: no Chris Santos PodiatryStart: 02-25-2025 End: 26-77-5363tgfqqlqxegZEKAIVGS A BROWNNot AvailableStart: 02-25-2025 End: 40-72-6152Chrnnb outpatient visit 15 minutesRan Osullivan DPM Work Phone: [facility] Perez Tom PodiatryComment on above:Sinus tarsitis of right foot (Primary Dx); Other specified disorders of synovium, right ankle and footStart: 02-19-2025 End: 21-04-1773Sikgp Bronwyn Mckeon RD Work Phone: General SurgeryStart: 01-25-2025 End: 12-63-6037Hmdmiw OnlyKhoa Silveira IRRIGATION SERVICE TECHNICIAN.VETERINARIAN HELPER Work Phone: General SurgeryComment on above:S/P hernia repair (Primary Dx); Postoperative visitPatient UpdateStart: 01-24-2025 End: 05-68-5566Zfaznf OnlyKhoa Silveira IRRIGATION SERVICE TECHNICIAN.VETERINARIAN HELPER Work Phone: General SurgeryComment on above:Acute postoperative painStart: 01-07-2025 End: 46-68-1620Cznspy OnlyKhoa Silveira IRRIGATION SERVICE TECHNICIAN.VETERINARIAN HELPER Work Phone: General SurgeryComment on above:Acute postoperative pain (Primary Dx)Start: 12-28-2024 End: 54-71-3725Iygnbfa encounter procedureKhoa Silveira IRRIGATION SERVICE TECHNICIAN.VETERINARIAN HELPER Work Phone: General SurgeryComment on above:Encounter for postoperative wound check (Primary Dx)Start: 12-28-2024 End: 52-10-4402tqojseyltcXDEPBMGJ A ROHRBACHERFacility:[facility] Start: 12-21-2024 End: 44-06-1040fytyfxfplrISSEDOYI A ROHRBACHERFacility:[facility] Start: 12-21-2024 End: 22-92-0297dzveikpdvvWQCBQXBV A ROHRBACHERFacility:[facility] Start: 12-20-2024 End: 44-15-9445jfnvavfvmpEjuebpivvBarnesville Hospital Work Phone: Start: 12-20-2024 End: 90-44-4213Fkhgssv encounter procedureFirelands Physician Group-[facility] Work Phone: Start: 12-19-2024 End: 08-46-4541abpisikirmBTSURXTI A ROHRBACHERFacility:[facility] Start: 12-14-2024 End: 07-48-1464Ahrqqci encounter procedureKhoa Silveira IRRIGATION SERVICE TECHNICIAN.VETERINARIAN HELPER Work Phone: General SurgeryComment on above:Encounter for postoperative wound check (Primary Dx)Start: 12-14-2024 End: 95-54-2136uyugxfuqpdNWNOMSVA A ROHRBACHERFacility:[facility] Start: 12-10-2024 End: 46-02-5432Yvzczi OnlyKhoa Silveira IRRIGATION SERVICE TECHNICIAN.VETERINARIAN HELPER Work Phone: General SurgeryComment on above:Acute postoperative pain (Primary Dx)Start: 12-06-2024 End: 09-25-3374Wdawybtor encounterJeannine Rody RNGeneral SurgeryComment on above:Post Op CallStart: 12-05-2024 End: 71-27-9795Ranokkpbo encounterJeannine Rody RNGeneral SurgeryComment on above:Post Op CallStart: 12-05-2024 End: 14-09-1385Csnrtbv encounter procedureKhoa Silveira IRRIGATION SERVICE TECHNICIAN.VETERINARIAN HELPER Work Phone: General SurgeryComment on above:Postoperative visit (Primary Dx)Start: 12-05-2024 End: 29-53-8329ovwljdekanQTQAMABBMillie TOLENTINORFacility:[facility] Start: 12-03-2024 End: 25-30-0777Chyrkt OnlyKhoa Silveira IRRIGATION SERVICE TECHNICIAN.VETERINARIAN HELPER Work Phone: General SurgeryComment on above:Acute postoperative painStart: 11-30-2024 End: 07-55-0274Ebosounsc to same day surgery Sarwat Grissom MD Work Phone: General SurgeryComment on above:Bariatric surgery status (Primary Dx); S/P repair of ventral herniaStart: 11-30-2024 End: 77-11-8050Snhzlejrluif consultation with patientAyse Grissom MD Work Phone: General SurgeryStart: 11-30-2024 End: 52-12-2298tbuqanychjMFBPMABWMelissa BIRMINGHAMacility:[facility] Start: 11-23-2024 End: 53-31-2280Ksgiasjpsq and management of inpatientROCIO JEFF Facility:[facility]art: 11-09-2024 End: 97-28-4508Zxspkpkvu encounterKristi Watts RNGeneral SurgeryComment on above:Approval callStart: 11-06-2024 End: 44-86-6575Qqumphs encounter Holley Umaña PhD Work Phone: [facility]cc[facility] SurgeryComment on above:Preoperative examination; Hiatal hernia; Morbid obesity (HCC)Start: 11-06-2024 End: 26-51-6431Kypsbxtxp to establishmentSt. [facility] Main 6 Work Phone: Pre AnesthesiaStart: 11-06-2024 End: 62-61-7700Mcyeultkzm consultationKessler Institute For Rehabilitation 6 Work Phone: Pre AnesthesiaComment on above:Preoperative examination (Primary Dx); Hiatal hernia; Morbid obesity (HCC); Primary hypertension; Gastroesophageal reflux disease without esophagitis; Acquired hypothyroidism; Inappropriate sinus tachycardia (HCC); Other iron deficiency anemia; Insulin resistance; Psoriatic arthritis (HCC); Class 3 severe obesity without serious comorbidity with body mass index (BMI) of 40.0 to 44.9 in adult, unspecified obesity type (HCC)Start: 11-06-2024 End: 22-59-9165Kvksirmmziqtp examination [place] [address] Work Phone: [facility] Work Phone: Start: 78-32-3780Vzw-patient / Non-visitFirbon sec[facility] st[facility] Phys[facility] GroupIsland [facility] Work Phone: Start: 11-06-2024 End: 95-41-9864jihvxscaiaGSLFHWZPMillie BIRMINGHAMacility:[facility] Start: 00-73-2723Lhppqztom for other preprocedural examinationCleveland Clinic ClevelandStart: 2024 End: 76-40-4004Bxbzhb flowsheetNicangas A Brown DPM Work Phone: [facility] CI PODIATRYStart: 2024 End: 21-24-6640Mdfpue flowsheetNicholas A Brown DPM Work Phone: [facility] CI PODIATRYStart: 2024 End: 17-27-0837Gutrve outpatient visit 15 minutesNicjannette A Brown DPM Work Phone: [facility] CI PODIATRYComment on above:Other specified disorders of synovium, right ankle and foot (Primary Dx); Sinus tarsitis of right foot; Contracture of left ankleStart: 2024 End: 38-24-7762saqtffppyxWTSTYSPN A BROWNNot AvailableStart: 10-18-2024 End: 97-29-7703Rrqawa flowsheetNicholas A Brown DPM Work Phone: [facility] CI PODIATRYStart: 10-18-2024 End: 28-09-9662Esugpa flowsheetNicholas A Brown DPM Work Phone: [facility] CI PODIATRYStart: 10-18-2024 End: 51-92-6654ptssexkdlrQNFQZJKP Renu OSULLIVANNot AvailableStart: 09-28-2024 End: 05-36-4999Mfsivaugr to same day surgery centerRocio Jeff MD Work Phone: Digestive Disease InstComment on above:11.23.24 Cure (Open Complex AWR 4 hours los [address] Grissom Hiatal hernia/Lap Gastric Sleeve 3 hours)Start: 09-28-2024 End: 64-51-9432gkjtzzgnvhOwcvw Prabhu MD Work Phone: Digest[facility] Disease InstStart: 09-28-2024 End: 30-88-9678Xpbonppfnjjar examination doneRocio Jeff MD Work Phone: [facility] Hospitaltart: 09-21-2024 End: 99-12-8452Lvwlspczm to same day surgery clydeKristi Watts RNGeneral SurgeryComment on above:11/04/2024 (pseudo)Start: 09-21-2024 End: 41-56-8409alpwywmyqtScvrtylf Verde RNGeneral SurgeryStart: 09-21-2024 End: 44-07-7352Obzfwtrkixhcd examination doneClaritzarebeca Chavezde [facility] Start: 09-20-2024 End: 18-57-9535Rjogvx Archie Osullivan DPM Work Phone: noms PODIATRYStart: 09-20-2024 End: 41-66-7692Atdgdg Archie Osullivan DPM Work Phone: noms PODIATRYStart: 09-20-2024 End: 91-89-7604rdvyojbppzHLWPUPCA A BROWNNot AvailableStart: 09-20-2024 End: 23-73-9308Itccmp outpatient visit 15 minutesNicjannette Osullivan DPM Work Phone: noms PODIATRYComment on above:Sinus tarsitis of right foot (Primary Dx); Other specified disorders of synovium, right ankle and footStart: 09-14-2024 End: 88-94-6400hynrpckpkkJfwhqdqucMercy Health [facility] Hospital Work Phone: Start: 09-14-2024 End: 55-98-3205Htgqhui encounter procedureSelect Specialty Hospital [facility] Physician GroupLakeHealth [facility] Work Phone: Start: 09-12-2024 End: 90-52-9063Laweindmo encounterKristi Watts RNGeneral SurgeryComment on above:ResultsStart: 09-03-2024 End: 69-52-9970Ukhcvhmindi Osullivan DPM Work Phone: [facility] [place] PODStart: 09-03-2024 End: 39-03-6080Exifyk Archie Osullivan DPM Work Phone: noms [place] PODStart: 09-03-2024 End: 88-64-6038knkxnkfakxOWFFCWFJ A BROWNNot AvailableStart: 09-03-2024 End: 30-58-7373Nemaqk outpatient new 30 minutesHelenarico Sears Tariq DPM Work Phone: [facility] [place] PODComment on above:Other specified disorders of synovium, right ankle and foot (Primary Dx); Sinus tarsitis of right footStart: 09-01-2024 End: 08-22-7999nctckvskxkAWJRFY STEVENSFacility:[facility] Centertart: 08-22-2024 End: 09-56-7387Ysuwrdcgl encounterSadina Helm PhD Work Phone: General Surgery BMI PSYComment on above:Patient Update Start: 08-17-2024 End: 40-55-0412fkbntnqudjKHJP D HILLSNot AvailableStart: 08-17-2024 End: 60-64-6485Wgoqdwg encounter procedureAfrica ALBERTO Work Phone: noms NB ORTHOComment on above:Ankle joint instability, right (Primary Dx); Sinus tarsi syndrome of right ankle; Posterior tibial tendinitis of right lower extremityStart: 08-17-2024 End: 11-58-2187vrrbewsawdGPLV D HILLSNot AvailableStart: 08-15-2024 End: 38-35-6204Znccwbghw to same day surgery centerAyse Grissom MD Work Phone: General SurgeryComment on above:Sleep Study Completed Start: 08-15-2024 End: 64-71-2181rvfgezyqxmDaroso Feng MD Work Phone: [facility] Work Phone: Start: 08-15-2024 End: 45-95-3084Kmjquxm encounter procedureSelect Specialty [facility] Physician GroupLake[facility] Work Phone: Start: 07-27-2024 End: 74-20-4080duyyeqytkcWJVBPZD A GORTYFacility:[facility] Centertart: 07-10-2024 End: 98-39-4205Uiudvs flowsheetTodd D [place] PA Work Phone: [facility] ORTHOAOStart: 07-10-2024 End: 68-61-5045Hafodu flowsheetAfrica Singh Isabel PA Work Phone: [facility] ORTHOAOStart: 07-10-2024 End: 74-56-7822yazyqktiefSMRD D ISABELNot AvailableStart: 07-10-2024 End: 80-84-9416Jaximhl encounter procedureTojacob Snigh Isabel PA Work Phone: [facility] ORTHOAOComment on above: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); Moderate right ankle sprain, sequelaStart: 07-02-2024 End: 57-09-0361evtvoamxovABYDGWO A GORTYFacility:[facility] Centertart: 06-29-2024 End: 19-02-2796RrsxfM[facility] Main Work Phone: NeurologyStart: 06-22-2024 End: 64-51-5449uvvoosflyoTDPG D HILLSNot AvailableStart: 06-21-2024 End: 54-74-4692rgqxbkvntvBLSHGF FENGFacility:[facility] Centertart: 06-20-2024 End: 08-95-9356Onmxrl flowsheetAfrica Singh [place] PA Work Phone: [facility] ORTHOStart: 06-20-2024 End: 45-27-1428Hshsxu flowsheetAfrica Singh Isabel REMY Work Phone: [facility] ORTHOStart: 06-20-2024 End: 74-41-2788Ytwukog encounter procedureTojacob Singh Isabel PA Work Phone: NOMS NB ORTHOComment on above:Pain and swelling of right lower leg (Primary Dx); Ankle joint instability, right; Pain of right calfStart: 06-20-2024 End: 96-31-4833pmpmrmljgtIWFD D HILLSNot AvailableStart: 06-19-2024 End: 36-22-3506mtzybpjdlgFmqcq T Shammo [facility]- Work Phone: [facility] Work Phone: Start: 06-19-2024 End: 61-03-9558Tkmejox encounter procedureLucas Shammo WINDOWS SECURITY ENGINEER-BC Work Phone: [facility] Work Phone: Start: 06-15-2024 End: 08-91-3413Rpbsscp encounter statusXr LorRegional Medical Centertart: 06-15-2024 End: 30-27-1395Mhldofzckd hospital visit by physicianXr [facility] Comment on above:Morbid obesity due to excess calories (HCC) [E66.01]Start: 06-15-2024 End: 32-09-1681hdcfjdbsmeBUWOZG PRAVEENAFacility:Regional Medical Centertart: 16-25-7636Irl-patient / Non-visitLucas Shammo WINDOWS SECURITY ENGINEER-BC Work Phone: [facility] Work Phone: Start: 06-14-2024 End: 82-29-6400qoibrvfwqeXIJWLD Latoshacility:[facility] Medical Centertart: 06-08-2024 End: 32-76-2962sncwvpyoryKtmflztx:Regional Medical Centertart: 06-07-2024 End: 05-46-7420Kkftedatm to same day surgery centerLeah Zuniga RD Work Phone: General SurgeryComment on above:H/O gastric sleeve (Primary Dx); Obesity, Class III, BMI 40-49.9 (morbid obesity) (HCC); Dietary counseling and surveillanceStart: 06-07-2024 End: 85-02-4128fvqvcwuruzZWICML PRAVEENAFacility:Regional Medical Centertart: 06-07-2024 End: 23-18-3582Vqdurlqkmqob consultation with patientLeah Zuniga RD Work Phone: General SurgeryStart: 06-01-2024 End: 11-87-2167LtwbtgDarryl Grissom MD Work Phone: General SurgeryComment on above:Preoperative examination (Primary Dx)Start: 06-01-2024 End: 55-77-2656Djqhjuuyiwqho examination Joseph Grissom MD Work Phone: [facility] Work Phone: Start: 05-24-2024 End: 04-19-4299Gvuqbalej to same day surgery Sudha Ruano MD Work Phone: bmi [facility] REJComment on above:Morbid obesity due to excess calories (HCC) (Primary Dx); S/P bariatric surgery; Preoperative testing; Snoring; Other fatigue; Morbid obesity with BMI of 40.0-44.9, adult (HCC)Start: 05-24-2024 End: 85-31-3059twltpxsyhfQLPIIQ FENGFacility:Regional Medical Centertart: 72-11-2802Rbhyetbsb for other preprocedural examinationRENETTA RUANOPromedica Flower HospitalStart: 05-24-2024 End: 32-54-0959Ytvslap encounter statusRenetta Ruano MD Work Phone: [facility] Hospitaltart: 05-24-2024 End: 85-00-9103Frikfpajtqjb consultation with patientRenetta Ruano MD Work Phone: bmi [facility] REJStart: 05-24-2024 End: 61-42-6058amolrfqnbcGAO-BC Yandel T Shammo Work Phone: [facility] Work Phone: Start: 05-24-2024 End: 76-58-2307Qyufcto encounter procedureFNP-BC Yandel Shammo Work Phone: [facility] Work Phone: Start: 05-17-2024 End: 96-89-3442Xrbjhglap encounterKristi Watts RNGeneral SurgeryComment on above:Patient Update; pt updateStart: 05-14-2024 End: 15-19-0314Gphpukxxd to same day surgery Sarwat Grissom MD Work Phone: General SurgeryComment on above:Body mass index 40.0- 44.9, adult (HCC) (Primary Dx)Start: 05-14-2024 End: 60-98-3462ezaxhhihfkDACMDX FENGFacility:Regional Medical Centertart: 05-14-2024 End: 89-74-5324Rnbawdfadgaj consultation with patientAyse Grissom MD Work Phone: General SurgeryStart: 05-10-2024 End: 65-78-7971ufixtyvxsjMnzylr Augustine KoromiaFacility:[facility] Systemtart: 05-10-2024 End: 50-58-3697Bblfbsv encounter procedureFNP-BC Yandel More Work Phone: [facility] Cardiology Work Phone: Start: 04-24-2024 End: 22-00-0680yijrmigrdpOVDAP PRABHUFacility:Regional Medical Centertart: 04-24-2024 End: 47-29-2613Jvuadxz encounter procedureAyse Grissom MD Work Phone: General SurgeryComment on above:Gastroesophageal reflux disease, unspecified whether esophagitis presentStart: 04-18-2024 End: 20-67-8919Uigmnjdlk encounterKristi Watts RNGenemccullough-hyde memorial hospital SurgeryComment on above:Patient UpdateStart: 04-16-2024 End: 60-00-0813ozwteipfzyBFANLpdfkkcc:Regional Medical Centertart: 04-16-2024 End: 95-00-4895Ucexlmq encounter procedureRocio Jeff MD Work Phone: General SurgeryComment on above:Gastroesophageal reflux disease, unspecified whether esophagitis present (Primary Dx); Incisional hernia, without obstruction or gangreneStart: 04-11-2024 End: 24-82-6901Dpmscvgbx encounterJavier Kitchen LPN Work Phone: General SurgeryStart: 03-30-2024 End: 71-40-1057Xvuzzpqjw Result EncounterCorey Myriam YOUNG Work Phone: [facility]OMS External Department UnsolicitedStart: 03-30-2024 End: 35-98-2400Pocipdngk Result EncounterCorey Myriam DO Work Phone: noms External Department UnsolicitedStart: 03-20-2024 End: 31-78-6551Qudsusoxu to same day surgery arcadiaShruti Dwain IRRIGATION SERVICE TECHNICIAN.VETERINARIAN HELPER Work Phone: General SurgeryStart: 03-20-2024 End: 71-18-1113kfscakvqnpGtwqj Dwain IRRIGATION SERVICE TECHNICIAN.VETERINARIAN HELPER Work Phone: General SurgeryStart: 03-13-2024 End: 66-71-3624upwqfakmcgSXCHN FAZIONot AvailableStart: 03-13-2024 End: 89-25-3168Rrvidom encounter procedureMichael R NILL [phone]-YbmhxU[facility] [place] Start: 02-28-2024 End: 61-33-1981hinvpmtyngBCN-BC Yandel T Shammo Work Phone: [facility] Work Phone: Start: 02-28-2024 End: 08-45-5037Aqfkprf encounter procedureFNP-BC Yandel Shammo Work Phone: [facility] Work Phone: Start: 01-05-2024 End: 62-37-1211hronwryfwwLPA RAMEYNot AvailableStart: 12-19-2023 End: 23-17-2258rgqwwfxckqPKK RAMEYNot AvailableStart: 12-12-2023 End: 25-57-9460xdtqyetqdzDYY-BC Yandel T Shammo Work Phone: [facility] Work Phone: Start: 12-12-2023 End: 14-86-8314Byjlgajd ReferredFNP-BC Yandel Shammo Work Phone: [facility]-LAB Path Spec Tariq HospStart: 12-09-2023 End: 55-17-6501Syaditdol Result EncounterCorey Myriam DO Work Phone: NOMS External Department UnsolicitedStart: 12-09-2023 End: 95-32-3802Axoacpkvp Result EncounterCorey Myriam DO Work Phone: NOMS External Department UnsolicitedStart: 12-08-2023 End: 36-35-9253fzdbyysggeDNVSD FAZIONot AvailableStart: 12-02-2023 End: 89-96-0055Dcclrvqqb Result EncounterCorey Myriam DO Work Phone: NOMS External Department UnsolicitedStart: 12-02-2023 End: 47-04-9096Pituyszyb Result EncounterCorey Myriam DO Work Phone: noms External Department UnsolicitedStart: 11-30-2023 End: 43-92-6195xbiehfdfnaTEW RAMEYNot AvailableStart: 11-25-2023 End: 36-65-1301Korergnwx Result EncounterCorey Myriam DO Work Phone: NOZR External Department UnsolicitedStart: 11-25-2023 End: 56-33-1285Cahbhcsrd Result EncounterCorey Myriam DO Work Phone: NOKF External Department UnsolicitedStart: 11-18-2023 End: 85-37-4800Mvzhydfjt Result EncounterCorey Myriam DO Work Phone: NOMS External Department UnsolicitedStart: 11-18-2023 End: 29-33-3146Dryysnjqo Result EncounterCorey Myriam DO Work Phone: NOMS External Department UnsolicitedStart: 11-15-2023 End: 52-63-9039Egaucoxos Result EncounterKassandra ALBERTO Work Phone: NOMS External Department UnsolicitedStart: 11-15-2023 End: 84-18-6729Mtsxegffa Result EncounterKassandra ALBERTO Work Phone: noms External Department UnsolicitedStart: 11-15-2023 End: 86-03-1907wlxkovremsQFJKL FAZIONot AvailableStart: 11-02-2023 End: 97-31-5914gihikfpqlaJCLAHV KHURSHICleveland Clinic Children's Hospital for Rehabilitationtart: 11-02-2023 End: 95-68-1277Gfmeky outpatient visit 15 minutesEddie Chavez MD Work Phone: [phone]-Kcemz Medicine at [facility] Comment on above:Essential hypertension affecting in second trimester (Primary Dx)Start: 10-31-2023 End: 10-08-6454hellzpupazRKY RAMEYNot AvailableStart: 10-18-2023 End: 55-54-4889vaxawkndziFFSGZ [facility] Hospitaltart: 57-33-9579Tpqqarbhyhmke Hoang Chavez MD Work Phone: [phone]-Imomt Medicine at [facility] Start: 10-13-2023 End: 43-46-9045gpiktlhseoZLSPV FAZIONot AvailableStart: 09-22-2023 End: 62-50-2037krxnhmpdeqHBFQQUniversity Health Lakewood Medical CenterComment on above: Pre-existing essential hypertension during in second trimester (Primary Dx); Advanced maternal age in multigravida, second trimester; Hypothyroid in , antepartumStart: 09-22-2023 End: 39-04-5333Bwczyk consultation new/estab patient 61 Noe Aguilar MD Work Phone: [phone]-Igrlh Medicine at [facility] Comment on above:Essential hypertension affecting in second trimester (Primary Dx)Start: 09-15-2023 End: 95-52-3711Wfcqnzkd flow Reed ALBERTO Work Phone: noms [facility] OBComment on above:Second trimester ; Diabetes mellitus screening; 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); Hypothyroidism, unspecified type (CMS/HCC)Start: 09-15-2023 End: 37-19-8527rzijznopwxWXO RAMEYNot AvailableStart: 62-81-0452Lpcgo Alla Bee MD Work Phone: [phone]-Eazwx Medicine at [facility] Start: 05-47-8387Fdhdoukdb encounterJodi ConkleMaternal Medicine Fort WorthStart: 08-18-2023 End: 82-80-5582Ucspmtlkv Result EncounterCorey Myriam DO Work Phone: noms External Department UnsolicitedStart: 08-18-2023 End: 76-41-4541Yffzajmta Result EncounterCorey Myriam DO Work Phone: noms External Department UnsolicitedStart: 08-18-2023 End: 16-26-3288qhaoyljpmiVNWXY FAZIONot AvailableStart: 07-21-2023 End: 90-40-0938egsuqarsrmWHH RAMEYNot AvailableStart: 06-13-2023 End: 04-53-2248dfkcyvvdzyTALRF FAZIONot AvailableStart: 05-19-2023 End: 83-03-2475xxtywklgxhPyhfozfo Cordell Other [place] Other Start: 26-93-0362Aivzlo outpatient visit 15 minutes Denys GreenbergG GastroenterologyStart: 05-13-2023 End: 35-20-1376Ufqvalixj Result EncounterCorey Myriam DO Work Phone: noms External Department UnsolicitedStart: 05-13-2023 End: 73-58-4386Mcnkwltpx Result EncounterCorey Myriam DO Work Phone: noms External Department UnsolicitedStart: 03-15-2023 End: 02-19-9444Awyzwesou to same day surgery [facility] Yandel More Work Phone: [facility] Work Phone: Start: 03-15-2023 End: 06-59-0334phukniojywHQQ-BC Yandel Aguilar Shammo Work Phone: [facility] Work Phone: Start: 01-26-2023 End: 60-06-9830Fjm Drop offCon Chiu [facility] Start: 01-26-2023 End: 06-43-3225Spplhms encounter procedureCon Chiu [facility] start: 01-17-2023 End: 11-57-5740jknjcexwyfAgbnapge McCormack Other [place] Other Start: 87-76-6798Zrusyy outpatient new 45 minutes Denys López GastroenterologyStart: 12-28-2022 End: 97-20-1038rglahxtqlvWTPGCNT KWAN .Facility:C5Xaudo: 10-16-2022 End: 48-42-3002smaopjbigmTXNSO SHAMMOFacility:R4Kfdlq: 75-29-8898Yqnitryxv for general adult medical examination without abnormal findingsLUCAS SHAMMOThe Memorial Hospitaltart: 08-20-2022 End: 48-25-2457gavtvjvokzTCYFU SHAMMOFacility:X0Msdab: 08-20-2022 End: 41-33-7562Xujhqeylo for general adult medical examination without abnormal findingsLUCAS SHAMMOFacility:H1 Procedures DateProcedureProcedure DetailPerforming ClinicianStart: 81-67-2483Wermsznp screenComment on above:Order Comment: Specimen Type: BLOOD SPECIMENOrdering Facility: [facility] Address:[address] [place], [place] [address]Performed By: #### [id number] ####CC MAIN BLOOD BANKCLIA [id number] [place] [address] [place] AMERICAStart: 66-59-2017Lqhgn ankle complete minimum 3 viewsTojacob ALBERTO Work Phone: Start: 66-48-3130Tsqke depression screening assessment Sleep Main Work Phone: Start: 45-79-7192Pkojxlgtpk exam chest 2 viewsRenetta Ruano MD Work Phone: Start: 95-44-6030XW ABDOMEN PELVIS W CONCorey Myriam DO Work Phone: Start: 86-59-4299LR OB BPP W NON-STRESSCorey Myriam DO Work Phone: Start: 25-85-1608VB OB BPP W NON-STRESSCorey Myriam DO Work Phone: Start: 71-46-2512IR OB BPP W NON-STRESSCorey Myriam DO Work Phone: Start: 53-86-8497JH OB BPP W NON-STRESSCorey Myriam DO Work Phone: Start: 78-93-9909XU OB GROWTHAmy Dominic ALBERTO Work Phone: Start: 43-07-2379Difiq dip stick/tablet rgnt non-auto w/o micrscpAmy Dominic ALBERTO Work Phone: Start: 22-40-4927MO OB ANATOMYCorey Myriam DO Work Phone: Start: 14-07-6611LM OB CERVICAL LENGTHCorey Myriam DO Work Phone: Start: 56-38-3901BWGGV FREE CELL DNA (NON-[facility]) Not In System Ref ProvStart: 28-00-4692RS OB TRANSVAGINALCorey Myriam DO Work Phone: Start: 35-55-8821OgyqtrdcbzqjwkksetksejmpmwOUV-BC Yandel Shammo Work Phone: Start: 88-32-8352YkuxozdwnbadJlmzg Lue Start: 60-64-8787Eveozcg sleeveKathy Lue Start: 07-18-5334FxmbxtqpcrkwmraZbmqe Lue Arthroplasty of kneeKathy Lue Comment on above:Meniscus repairCesarean sectionKathy Lue Comment on above:v7Lkueybmt sectionMichael NILL Repair of meniscusMichael NILL Plan of Treatment DateCare ActivityDetailAuthorStart: 78-62-7123PR Controlled (<130/80)BP Controlled (<130/80)[facility] Hospitaltart: 61-36-0856Mhpkush ScreeningAnxiety ScreeningMemorial Health System Marietta Memorial Hospitaltart: 11-84-5610Dogrdisyxv ScreeningDepression ScreeningMemorial Health System Marietta Memorial Hospitaltart: 23-40-8827Obcfaykzm vaccinationToledo Hospital Start: 16-51-5721Ndczthg referralFayette County Memorial Hospital Work Phone: Start: 02-19-2025 End: 88-15-4493Jogikmhnh to same day surgery pqzauy7002/19/2025 1:30 PM EDT Education General Surgery [phone] Anthony Mckeon, VALENTINO [address] [place] [address] post op three months/ gastric bypass 11/23/2024General SurgeryComment on above: post op three months/ gastric bypass 11/23/2024Start: 02-18-2025 End: 97-38-9466Ybczvee encounter nzsdnujqy77/21/2025 11:30 AM EDT Distance Health BMI [facility] [address] [place] [address] Renetta Ruano MD [address] [place] [address] post op three months/ gastric bypass 11/23/2024MI [facility] Comment on above:post op three months/ gastric bypass 11/23/2024Start: 02-11-2025 End: 18-31-8651Bxscgck encounter tyierxbja36/14/2025 11:30 AM EDT Distance Health BMI [facility] [address] [place] [address] Renetta Ruano MD [address] [place] [address] post op three months/ gastric bypass 11/23/2024MI [facility] Comment on above:post op three months/ gastric bypass 11/23/2024Start: 12-21-2024 End: 34-13-4304Pipkpqprk to same day surgery centerGeneral SurgeryComment on above:post op one month/ gastric bypass 11/23/2024Start: 12-14-2024 End: 37-33-2965Iusrsio encounter /16/2025 11:00 AM EDT Office Visit General Surgery [address] [address] Khoa Silveira, IRRIGATION SERVICE TECHNICIAN.VETERINARIAN HELPER [address] [place] [address] Post Op Wound CheckGeneral SurgeryComment on above:Post Op Wound CheckStart: 12-05-2024 End: 39-78-3136Yfrwpax encounter napvssujw37/07/2025 11:00 AM EDT Office Visit General Surgery [address] [address] Khoa Silveira, IRRIGATION SERVICE TECHNICIAN.VETERINARIAN HELPER [address] [address] right merced drain removalGeneral SurgeryComment on above:right merced drain removalStart: 12-05-2024 End: 20-92-6007pdimahtfhf58/07/2025 8:30 AM EDT Education BMI [place] [address] [place] [address] [place] [address] post op refresherBMI MentorComment on above:post op refresherStart: 11-30-2024 End: 70-19-4281Wmcgfoxao to same day surgery womdgk3911/30/2024 1:20 PM EDT [facility] Surgery [address] [place] [address] [phone] Ayse Grissom MD [address] [place] [address] post op 7-10 day/ hernia 11/23/2024General SurgeryComment on above:post op 7-10 day/ hernia 11/23/2024Start: 11-23-2024 End: 95-35-0446Hmozsoycg to same day surgery centerAdmittingComment on above: HERNIORRHAPHY INCISIONAL ABDOMINAL RECURRENT REDUCIBLE GREATER THAN 10cmStart: 11-23-2024 End: 69-64-1285ZLAAMBTQXSVPE INCISIONAL ABDOMINAL RECURRENT REDUCIBLE GREATER THAN 10cmHERNIORRHAPHY INCISIONAL ABDOMINAL RECURRENT REDUCIBLE GREATER THAN 10cm Preoperative examination Hiatal hernia Morbid obesity (HCC) 11/23/2024 10:15 AM [facility]IONStart: 11-23-2024 End: 61-05-0817Jbke gstr rstcv px w/byp maria antonia-en-y limb <150 cmLAPAROSCOPIC GASTRIC RESTRICTIVE SURG W/ BYPASS & MARIA ANTONIA-EN-Y 150CM OR LESS Preoperative examination Hiatal hernia Morbid obesity (HCC) 11/23/2024 10:15 AM [facility]IONStart: 11-23-2024 End: 16-67-5896Ifxr rpr paraesphgl hrna incl fundplsty w/meshLAPAROSCOPIC RPR PARAESOPHAGEAL HERNIA W/O FUNDOPLASTY W/ MESH Preoperative examination Hiatal hernia Morbid obesity (HCC) 11/23/2024 10:15 AM [facility]IONStart: 95-49-9671Twrifvqkqp hospital visit by physicianAdmittingComment on above: Preoperative examination [Z01.818], Hiatal hernia [K44.9], Morbid obesity (HCC) [E66.01]Start: 15-98-9492Tmcwmmgqyh hospital visit by fwcoeogem74/20/2025 Hospital Encounter Admitting [address] [place] [address] Ayse Grissom MD [address] [place] [address] Morbid obesity (HCC) [E66.01], Hiatal hernia [K44.9], Preoperative examination [Z01.818]AdmittingComment on above:Morbid obesity (HCC) [E66.01], Hiatal hernia [K44.9], Preoperative examination [Z01.818]Start: 2024 End: 40-28-5161Uxpnlsnu Nbooipm1111/01/2024 1:10 PM EDT Clinical Support [facility] CI POD[facility]AT[facility] [address] [facility] [address] [place] [phone] Ran Osullivan, DPHoward [address] [facility] [address] [place] [address] Other specified disorders of synovium, right ankle and foot (Primary Dx); Sinus tarsitis of right foot; Contracture of left ankleNOMS CI PODIATRYComment on above:Other specified disorders of synovium, right ankle and foot (Primary Dx); Sinus tarsitis of right foot; Contracture of left ankleStart: 10-22-2024 End: 64-84-6946mNRZ in Platelet poor plasma by Coagulation assayACTIVATED PARTIAL THROMBOPLASTIN TIME Lab Routine Preoperative examination Hiatal hernia Morbid obesity (HCC) Expected: 10/22/2024, [facility] Comment on above:Expected: 10/22/2024, Expires: 02/27/2025Start: 10-22-2024 End: 13-14-7414EQJ W Auto Differential panel - BloodCOMPLETE BLOOD COUNT AND DIFFERENTIAL Lab Routine Preoperative examination Hiatal hernia Morbid obesity (HCC) Expected: 10/22/2024, Expires: 02/27/2025[facility] ClinicComment on above: Expected: 10/22/2024, Expires: 02/27/2025Start: 10-22-2024 End: 85-29-9216Phuarzkmcudss metabolic 2000 panel - Serum or PlasmaCOMPREHENSIVE METABOLIC PANEL Lab Routine Preoperative examination Hiatal hernia Morbid obesity (HCC) Expected: 10/22/2024, Expires: 02/27/2025[facility] ClinicComment on above:Expected: 10/22/2024, Expires: 02/27/2025Start: 10-22-2024 End: 49-44-3643OZ panel - Platelet poor plasma by Coagulation assayPROTHROMBIN TIME Lab Routine Preoperative examination Hiatal hernia Morbid obesity (HCC) Expected: 10/22/2024, Expires: 02/27/2025[facility] ClinicComment on above: Expected: 10/22/2024, Expires: 02/27/2025Start: 10-22-2024 End: 48-62-8353PZTP AND SCREEN,30 DAYTYPE AND SCREEN,30 DAY Blood Bank Routine Preoperative examination Hiatal hernia Morbid obesity (HCC) Expected: 10/22/2024, Expires: 02/27/2025[facility] ClinicComment on above:Expected: 10/22/2024, Expires: 02/27/2025Start: 07-11-2297Nlfpvkujnd hospital visit by hlamolppm28/09/2025 Hospital Encounter Admitting [address] [place] [address] Ayse Grissom MD [address] [place] [address] Morbid obesity (HCC) [E66.01], Hiatal hernia [K44.9], Preoperative examination [Z01.818]AdmittingComment on above:Morbid obesity (HCC) [E66.01], Hiatal hernia [K44.9], Preoperative examination [Z01.818]Start: 95-92-8544Etkeehqonn hospital visit by zucchbmtc44/06/2025 Hospital Encounter Admitting [address] [place] [address] Ayse Grissmo MD [address] [place] [address] Morbid obesity (HCC) [E66.01], Hiatal hernia [K44.9], Preoperative examination [Z01.818]Admitting Comment on above:Morbid obesity (HCC) [E66.01], Hiatal hernia [K44.9], Preoperative examination [Z01.818]Start: 72-69-7759Rnaxc BMI ScreeningAdult BMI ScreeningProTuscarawas Hospital SystemStart: 17-23-8833Qcubeap ScreeningTobacco ScreeningProTuscarawas Hospital SystemStart: 09-22-2024 End: 47-13-5057OL MFM with or without consultUS MFM with or without consult Imaging Routine Pre-existing essential hypertension during pregnancyin second trimester Advanced maternal age in multigravida, second trimester Hypothyroid in , antepartum Expected: 09/22/2024 (Approximate), Expires: 09/22/2024 [facility] Work Phone: comment on above:Expected: 09/22/2024 (Approximate), Expires: 09/22/2024Start: 09-20-2024 End: 97-93-2248Apjdved encounter rbplowlej59/20/2025 9:40 AM EST Office Visit [facility] [address] [facility] [address] [place] [address] Ran Osullivan, FRANCISCO JAVIER [address] [facility] [address] [place] [address] N[facility] CI PODIATRYStart: 08-21-2024 End: 65-35-8345TNAHDAES & METAB, URNICOTINE & METAB, UR Lab Routine Nicotine dependence in remission, unspecified nicotine producttype Expected: 08/21/2024, Expires: 11/20/2024[facility] Work Phone: Comment on above:Expected: 08/21/2024, Expires: 11/20/2024Start: 06-21-2024 End: 80-36-7193Ckbpnzmstrkl / ancillary services uporohcbzl32/21/2024 3:00 PM EST Ancillary Procedure [facility] ULTRASOUND [address] [place] [address] NOMS FNR ULTRASOUNDStart: 06-20-2024 End: 77-17-6003AG.doppler Lower extremity vein - rightVascular US lower extremity venous duplex right Imaging Routine Pain and swelling of right lower leg Expected: 06/20/2024, Expires: 06/20/2025[facility] Work Phone: Comment on above:Expected: 06/20/2024, Expires: 06/20/2025Start: 06-20-2024 End: 87-48-4105Aaonyyd encounter dufhebozy64/20/2024 9:45 AM EST Office Visit [facility] [address] [place] [phone] Africa Hall PA [address] [place] [address] ArrivedNOMS OWENS ORTHOComment on above:ArrivedStart: 06-08-2024 End: 37-08-5491Xywqnxo encounter txuzexgpw67/08/2024 2:20 PM EST Office Visit Financial Clearance Phone Screening [address] [address] Chest XRay and LabWorkFinancial Clearance Phone ScreeningComment on above:Chest XRay and Lab WorkStart: 06-07-2024 End: 26-46-5894Vpuovleyd to same day surgery xkrbdf2006/07/2024 1:15 PM EST [facility] Surgery [address] [place] [address] Leah Zuniga, RD [address] [address] Purple/Praveena/0 Diet/TricareGeneral SurgeryComment on above:Purple/Praveena/0 Diet/TricareStart: 06-01-2024 End: 65-45-4041NXDFKNOW & METAB, URNICOTINE & METAB, UR Lab Routine Preoperative examination Expected: 06/01/2024, Expires: 08/31/2024[facility] Work Phone: Comment on above:Expected: 06/01/2024, Expires: 08/31/2024Start: 41-17-8921ThvjdwyyoBlanchard Valley Health Systemtart: 04-24-2024 End: 59-90-5310Fwmmxor encounter aomwrxhlm38/24/2024 9:00 AM EDT Office Visit General Surgery [address] [place] [address] Ayse Grissom MD [address] [place] [address] K21.9 (ICD-10-CM) - Gastroesophageal reflux disease, unspecified whether esophagitis presentGeneral SurgeryComment on above:K21.9 (ICD-10-CM) - Gastroesophageal reflux disease, unspecified whether esophagitis presentStart: 04-16-2024 End: 95-24-0362Islppqt encounter procedureGeneral SurgeryComment on above: Ventral wall mass & abdominal wall herniaPT TO BRING IMAGING FOR APPT/CT A/P 03/29/24Start: [id number]-19 Vaccine ( season)Covid-19 Vaccine ()[facility]: [id number]-19 Vaccine ( season)Covid-19 Vaccine ( season)[facility] 04-01-2024 Influenza vaccinationMem[facility] Hospitaltart: [id number] referralFayette [facility] Work Phone: Start: 44-24-7200Gavfm BMI ScreeningAdult BMI ScreeningFlower [facility] SystemStart: 11-02-2023 End: 91-23-2363Khewfgcasrja consultation with eabanqq2411/02/2023 11:30 AM EDT Telemedicine Maternal- Medicine at [facility] [address] [place] [address] Eddie Chavez MD [address] [place], [place] [phone] (Work) Héctor Aguilar MD [address] [facility], [address] [place] [address] [facility] 10-18[facility]2023 End: 94-69-7124Ulnvfvzxtxlh consultation with xrvoqel1110/18/2023 1:30 PM EDT Telemedicine Maternal- Medicine at [facility] [address] [place] [address] Eddie Chavez MD [address] [place] [address] M[facility]- Medicine at [facility] HospitalStart: 10-18-2023 End: 71-32-7828Anfjrxj encounter qtypezxez29/19/2024 12:30 PM EDT Appointment [facility] - Ultrasound [address] [place] [id number] [phone] [facility]als [facility] - UltrasoundStart: 10-13-2023 End: 17-99-3119Ukdyezu encounter icdjcuwsn80/14/2024 10:50 AM EDT Routine [facility] [address] [place] [id number] Adrian Kerr, DO [address] [place] [place] [address] [facility] OBStart: 09-15-2023 End: 40-03-6656YIF panel - Blood by Automated countCBC Lab Routine Diabetes mellitus screening Expected: 09/15/2023 (Approximate), Expires: 09/15/2024[facility] Work Phone: comment on above:Expected: 09/15/2023 (Approximate), Expires: 09/15/2024Start: 09-15-2023 End: 06-90-2232Wovtuoanngq of glucose 1 hour after glucose challenge for glucose tolerance testGlucose tolerance, 1 hour Lab Routine Diabetes mellitus screening Expected: 09/15/2023 (Approximate), Expires: 09/15/2024NOSaint Luke's Health SystemComment on above:Expected: 09/15/2023 (Approximate), Expires: 09/15/2024Start: 09-15-2023 End: 57-17-8468Bnxgusukeen [Units/volume] in Serum or PlasmaTSH Lab Routine Hypothyroidism, unspecified type (CMS/HCC) Expected: 09/15/2023 (Approximate), Expires: 09/15/2024[facility] HealthcareComment on above:Expected: 09/15/2023 (Approximate), Expires: 09/15/2024Start: 09-14-2023 End: 74-32-8913Bxpqzxa encounter procedureDunlap Memorial Hospital US ImagingStart: 41-90-6122Wnfkw-19 Vaccine ( season)Covid-19 Vaccine ()[facility]: 85-13-1162Spamucmdf vaccination Influenza VaccineFlower Hospital SystemStart: 34-29-5989LfjtmggfuBlanchard Valley Health Systemtart: 99-92-1301Kqtnmnnhk for malignant neoplasm of cervix [facility] Hospitaltart: 84-20-0673HYvQ,Tdap and Td Vaccines (1 - Tdap)DTaP,Tdap and Td Vaccines (1 - Tdap)[facility]: 67-43-5231Ofwvsztcu B Vaccine (1 of 3 - 19+ 3-dose series)Hepatitis B Vaccine (1 of 3 - 19+ 3-dose series)[facility] Hospitaltart: 30-08-0881Tzxwi microalbumin profileDTaP,Tdap,Td Vaccine (1 - Tdap)[facility] Hospitaltart: 45-59-1839Rqtvw BMI Follow Up PlanAdult BMI Follow Up PlanDorothea Dix Hospitaltart: 65-27-0445Fvirdj PCP Team Chronic Disease VisitAnnual PCP Team Chronic Disease VisitMemorial Health System Marietta Memorial Hospitaltart: 98-43-3244Jjilrra ScreeningAnxiety ScreeningMemorial Health System Marietta Memorial Hospitaltart: 13-14-9244PW Controlled (<130/80)BP Controlled (<130/80)[facility] Hospitalt[facility]: 2004 Depression ScreeningDepression ScreeningMemorial Health System Marietta Memorial Hospitaltart: 2004 Hepatitis C screeningHepatitis C ScreeningMemorial Health System Marietta Memorial Hospitaltart: 75-45-3415OAD screeningHIV ScreeningMemorial Health System Marietta Memorial Hospitaltart: 10-45-4956Ssvsfxyjgb Screening Depression ScreeningFlower Hospital SystemStart: 85-39-5702Ygbauwy Screening Tobacco ScreeningFlower Hospital SystemStart: 70-09-2264Potrcmexwuhq vaccinationPneumococcal Vaccine (1 of 2 - PCV)[facility] HospitalComprehensive metabolic 2000 panel - Serum or PlasmaH[facility] Hospital End: 69-10-0354JV Abdomen and Pelvis WO contrastCT ABD/PEL WO IVCON Radiology Routine Postoperative visit S/P hernia repair 1 Occurrences starting 01/25/2025 until 02/24/2026[facility] Work Phone: Comment on above:1 Occurrences starting 01/25/2025 until 02/24/2026 End: 04-98-4513OXG COMPLETEECG COMPLETE ECG Routine Preoperative examination Hiatal hernia Morbid obesity (HCC) 1 Occurrences starting 10/01/2024 until 09/28/2025[facility] HospitalComment on above:1 Occurrences starting 10/01/2024 until 09/28/2025Hemoglobin A1c/Hemoglobin.total in BloodHemoglobin A1c Lab Routine Diabetes mellitus screening Ordered: 09/15/2023[facility] HospitalComment on above:Ordered: 09/15/2023HERNIORRHAPHY INCISIONAL ABDOMINAL RECURRENT REDUCIBLE GREATER THAN 10cmHERNIORRHAPHY INCISIONAL ABDOMINAL RECURRENT REDUCIBLE GREATER THAN 10cm Preoperative examination Hiatal hernia Morbid obesity (HCC) [facility] End: 50-45-9913GVTK SLEEP APNEA TEST (HSAT)HOME SLEEP APNEA TEST (HSAT) Procedures Routine Morbid obesity due to excess calories (HCC) S/P bariatric surgery Preoperative testing Snoring Other fatigue Morbid obesity with BMI of 40.0-44.9, adult (HCC) 1 Occurrences starting 05/24/2024 until 05/24/2025 [facility]:1 Occurrences starting 05/24/2024 until [...] obesity (HCC) [facility] Patient EducationHiatal hernia DiverticulosisLouis Stokes [facility] Work Phone: [facility] referralFayette County Memorial [facility] Work Phone: REFER FOR ADMIT INTERVIEWREFER FOR ADMIT INTERVIEW Procedures Routine Preoperative examination Hiatal hernia Morbid obesity (HCC) Ordered: 10/01/2024[facility] Work Phone: Comment on above:Ordered: 10/01/2024XR Ankle - right GE 3 ViewsHarrison Community Hospital End: 85-99-8404AQ Chest PA and LateralXR CHEST 2V FRONTAL/LAT Radiology Routine Morbid obesity due to excess calories (HCC) S/P bariatricsurgery Preoperative testing Snoring Other fatigue Morbid obesity with BMI of 40.0-44.9, adult (HCC) 1 Occurrences starting 05/24/2024 until 06/23/2025[facility] Work Phone: Comment on above:1 Occurrences starting 05/24/2024 until 06/23/2025[facility] Immunizations Immunization DateImmunizationNotesCare TgxrfjiwPztnkygg58-40-9834klokllrsw virus vaccine, unspecified formulationKathy Lue [facility]2022influenza, seasonal, injectableFNP-BC Yandel Shammo Work Phone: [facility] Payers DatePayer CategoryPayerPolicy [id number] Care HMO (unspecified) [id number] Health Insurance1.2.840.041057.1.13.159.2.7.9.261242.29570.20795-69-7740Aylukjr Health [id number] [id number]-igm 03-95-7797MlqonouRZKTZRER EAST rjtep2671 2023-[facility] [phone] [address] [place] [address] Indemnity [id number]165-00-9534Utbznmhfuy of Defense ( and others)[id number] (not Medicare or Medicaid) 1.2.840.676568.1.13.159.2.7.9.077560.10285.48615-80-6548FHCTGMO () 1.2.840.138848.1.13.693.2.7.9.686486.701306.38771-61-7772Yjttatddog of Defense ( and others)[id number] of Defense ( and others)1.2.840.699501.1.13.693.2.7.3.837119.41455-67-9634Fhylnywjhy of Defense ( and others)[id number] 2.16.840.1.138634.3.579.2.46260-96-8897Abwuclq5706866 2.16.840.1.276430.3.579.2.90774-80-0281Dyovkuq4713920 2.16.840.1.096949.3.579.2.62274-19-3692Tiazcyl73542892 2.16.840.1.098968.3.579.2.690858-63-3344Utcntit19871945 2.16.840.1.009823.3.579.2.633277-64-3533Mdedrtt72943067 2.16.840.1.724800.3.579.2.507778-03-3188Vofajne35691725 2.16.840.1.470853.3.579.2.208059-60-7019Icqjndv4942943 2.16.840.1.373524.3.579.2.076171-04-4900Xlfzotu3545405 2.16.840.1.295213.3.579.2.715715-17-8155Amaawgy3667056 2.16.840.1.858390.3.579.2.287301-03-1380Pveysse0264347 2.16840.1.258875.3.579.2.173155-19-7837Rkzsasu6300335 2.16.840.1.425804.3.579.2.193789-83-7876Mckeaxw5672257 2.16.840.1.373494.3.579.2.287854-23-2765Svngaso0115139 2.16.840.1.106299.3.579.2.033134-27-3181Ildlknw2921818 2.16.840.1.072463.3.579.2.289124-84-4335Ntohecx1857744 2.16.840.1.549126.3.579.2.285102-76-0421Uflsdfq102032 2.16.840.1.712301.3.579.2.033174-18-4447Ywjsrxi71391 2.16.840.1.588224.3.579.2.905741-04-6850Uecmpip77851006 2.16.840.1.785489.3.579.2.191289-31-0012Awdubbn7736241 2.840.1.626266.3.579.2.950207-53-1285Eblroco0674125 2.16840.1.635781.3.579.2.245078-96-0926Alprkce3275829 2.0.1.352481.3.579.2.250146-18-3846Ckvbfim2651867 2.0.1.140295.3.579.2.447176-21-1487Hpkwplw6110816 2.0.1.935484.3.579.2.030423-93-5812Eklivky1093394 2.0.1.709413.3.579.2.843658-18-2984Rxvpbco7588789 2.0.1.931612.3.579.2.097041-72-8309Vyegssr7961465 2.0.1.924530.3.579.2.3739 2093Kdcimta7876325 2.0.1.512287.3.579.2.470880-95-1014Gasxlxv7133277 2.0.1.128261.3.579.2.800981-27-9067Eqygttd3000331 2.0.1.323006.3.579.2.157718-09-0118Llovwui60471486 2.0.1.597198.3.579.2.30304-79-7649Cjwbydt41094032 2.0.1.127117.3.579.2.97719-14-2899Hhdniqyjdd of Defense ( and others)[id number] 2.0.1.535574.3.579.2.897Nkqktmk93502327 2.16.840.1.477837.3.579.2.531 Social History DateTypeDetailFacilityStart: 07-20-2023 End: 69-46-5920Yja Assigned At BirthLouis Stokes [facility] Medical Centertart: 01-26-2023 End: 36-99-0306Vpndykw smoking statusEx-smoker (finding)[facility]Start: 70-78-6703Xhigxmo smoking status NHIS Smoker (finding)[facility]tart: 89-96-4351Mpn [facility]tart: 01-03-2023 End: 80-24-2419Ehuzcdb smoking status NHISNever smoked tobaccoNOME Healthcare Start: 01-03-2023 End: 70-49-9011Zsxmspo use and exposureSmokeless tobacco non-userFlower Hospital SystemStart: 09-15-2023 End: 16-85-8046Rliydjg intakeEx-drinker (finding)[facility] SystemStart: 07-20-2023 End: 49-95-4439Ogmzwfh of Social functionNOMS HealthcareHow often to you have a drink containing alcohol?Monthly or lessNOMS HealthcareHow many standard drinks containing alcohol do you have on a typical day?1 or 2NOMS HealthcareHow often do you have 6 or more drinks on 1 occasion?NeverNOMS HealthcareStart: 01-03-2023 Alcohol Commentcaffeine: 1-2 cups per dayNOME HealthcareStart: 04-11-2023 PregnancyProTuscarawas Hospital SystemStart: 57-01-3286Sgrwbu identityIdentifies as female gender (finding)[facility] HealthcareTobacco smoking status NHISTobacco smoking consumption unknownT[facility] Hospital Work Phone: start: 75-40-3902Buq assigned at birthNot on file [facility] SystemStart: 23-87-8153Scdvdn orientationHeterosexual (finding) [facility] SystemStart: 42-11-4989Mqiaplj smoking status NHISSmokes tobacco dailyToledo HospitalHistory of tobacco usePipe SmokerToledo Hospital Start: 40-19-5702Xpocmhrf Score (1-100), lower number is lower bxfu89XyuqpknewMemorial Health System Marietta Memorial Hospitaltart: 29-96-9299Wgtoatu use and exposureUser of smokeless tobacco [facility] Hospitaltart: 72-13-1658Umqgefvzx beverage intakeLifetime non-drinker (finding)[facility] Hospitaltart: 03-13-2024 End: 81-43-6361Tvxzkjb CommentVapeCMercy Health Urbana Hospitaltart: 06-19-2024 End: 99-88-7549AjoScqixc (finding)[facility] Systemtart: 16-78-9649Hxaiife CommentSocially/rareNOMS HealthcareHas the electric, gas, oil, or water company threatened to shut off services in your home in past 12MoNo [facility] Work Phone: (I/We) worried whether (my/our) food would run out before (I/we) got money to buy more.Never trueMemorial Health System Marietta Memorial Hospitaltart: 05-30-2023 End: 53-08-8886Zsvlhykk to SARS-CoV-2 (event)Not sureNOMS HealthcareSexual OrientationExec[facility] Medical Equipment Procedure CodeEquipment CodeEquipment Original TextEquipment IdentifierDatesMesh Prolene Square Flat 51w35tz Surgical Knit Nonabsorbable Nonreactive - [id number]: 11-23-2024 Goals DatePatient GoalDesired Activity/StatePersonal health goalPersonal health goal Functional Status TeyuUvsvdgcfteJnbshzSyrtuuih98-01-5992Qrr you deaf, or do you have serious difficulty hearingNo 11/27/2024 11:51 AM Rupal Sanchez RN [place] Zcrnhs47-74-9917Adj you blind, or do you have serious difficulty seeing, even when wearing glassesNo 11/27/2024 11:51 AM Rupal Sanchez RN [place] Cociyd73-88-6298Wj you have serious difficulty walking or climbing stairsNo 11/27/2024 11:51 AM EDRupal Alfaro RN [facility]04-29-2025Do you have difficulty dressing or bathingNo 11/27/2024 11:51 AM EDRupal Alfaro RN [facility] CenterUimcxh68-23-9319Tvwchkv of a physical, mental, or emotional condition, do you have difficulty doing errands alone such as visiting a physician's office or shoppingNo 11/27/2024 11:51 AM EDRupal Alfaro RN [facility] HospitalYmfuza42-63-3899Dyrmnuxdta StatusN/[facility] Cyteghi53-35-7200Cqumv score [AUDIT-C]1 07/20/2023 1:39 PM SHAHLA [facility] HealthcareJkwofjfnia44-24-7368Ypmpckufll StatusNoExec[facility] Mental Status ZqynNuhomwmmzkDafajkEpzgfiig35-05-3415Qsdngvv of a physical, mental, or emotional condition, do you have serious difficulty concentrating, remembering, or making decisionsNo 11/27/2024 11:51 AM Rupal Sanchez RN [facility] Clinical Notes 01-17-2023 to 06-11-2025 Note Date & UbioDotdEarpbtgi00-06-2099 Hospital Discharge instructions Patient Education 06/11/2025 15:38:00 Kidney Stones, Emxy-fh-Tjqh Kidney Stones Kidney stones are rock-like masses [...] Follow these instructions at home: Medicines Take mqpd-tiu-mzfxrrh and prescription medicines only as told by [...] provider. Document Revised: 03/11/2023 Document Reviewed: 03/11/2023 [employer] Patient Education 2023 ISC8. 06/11/2025 15:37:48 Flank Pain, Adult Flank Pain, [...] told by your health care provider. Take uhql-nrd-tkjupnt and prescription medicines only as told by [...] provider. Document Revised: 09/28/2021 Document Reviewed: 09/28/2021 [employer] Patient Education 2023 ISC8. 06/11/2025 15:37:41 Urinary Tract Infection, Adult Urinary [...] Treatment for this condition includes: Antibiotic medicine. Jzsd-gbx-neiykhi medicines to treat discomfort. Drinking enough water [...] Follow these instructions at home: Medicines Take khnh-rov-rtzuwag and prescription medicines only as told by [...] provider. Document Revised: 02/22/2021 Document Reviewed: 02/27/2021 [employer] Patient Education 2023 ISC8. Follow Up Care 06/10/2025 11:02:23 With:Bárbara Nguyen PA-C, JAZMINEL Address: When: Unknown Comments:F/up pending results [facility] 11-11-2025 NotePatient Education Orthopedics Flank Pain, [...] by your health care provider. ??? Take ceom-oht-nsepokm and prescription medicines only as told by [...] provider. Document Revised: 09/28/2021 Document Reviewed: 09/28/2021 [employer] Patient Education ? 2023 ISC8. Urology Kidney Stones Kidney stones are rock-like [...] these instructions at home: Medicines ??? Take tjai-qrw-emzkkuk and prescription medicines only as told by your doctor. ??? Ask your doctor if the medicin (more content not included)...[facility]07-28[facility] History of Present illness Narrative* Ran [...] Insecurity: No Food Insecurity (11/26/2024) Received [facility] Hunger Vital Sign Worried About Running Out of Food in the Last Year: Never true Ran Out of Food in the Last Year: Never true Transportation Needs: No Transportation Needs (11/26/2024) Received from [facility] PRAPARE - Transportation Lack of Transportation (Medical): No Lack of Transportation (Non-Medical): No Physical Activity: Not on file Stress: Not on file Social Connections: Not on file Intimate Partner Violence: Not on file Housing Stability: Unknown (11/26/2024) Received from [facility] Housing Stability Vital Sign Unable to [...] weeks Ran Osullivan DPM documented in this encounterBarnes-Jewish Saint Peters HospitalIwioiieoga93-75-5851 NoteHNO ID: [id number] Author: ANTHONY MCKEON RD Service: ? Author Type: Registered Dietitian Type: Progress Notes Filed: 02/19/2025 14:54 Note Text: Patient was scheduled for a nutrition appointment today. The patient did not check into their scheduled appointment. I sent the patient a Rhytect message encouraging them to reschedule their appointment by calling [phone]. [facility]07-22-2025 History of Present illness Narrative* Anthony Mckeon RD - 02/19/2025 2:54 PM EDT Patient was scheduled for a nutrition appointment today. The patient did not check into their scheduled appointment. I sent the patient a Digiscend message encouraging them to reschedule their appointment by calling [phone]. documented in this encounterToledo Hospital06-27-2025 Telephone encounter Note * Telephone Encounter [...] for abdominal (neuropathic) pain. Khoa Silveira, MSN, IRRIGATION SERVICE TECHNICIAN, WINDOWS SECURITY ENGINEER-C January 25, 2025 11:30 AM [facility]06-27-2025 Miscellaneous Notes* Telephone Encounter - Khoa [...] for abdominal (neuropathic) pain. Khoa Silveira, MSN, IRRIGATION SERVICE TECHNICIAN, WINDOWS SECURITY ENGINEER-C January 25, 2025 11:30 AM documented in this encounterToledo Hospital05-30-2025 Nelly ID: [id number] Author: KHOA SILVEIRA APRN.VETERINARIAN HELPER Service: ? Author Type: Nurse Practitioner Type: Progress Notes Filed: 12/28/2024 11:27 Note Text: [facility] Clinic Date: December 28, 2024 Tiffani Allisno 39 year old female CHIEF COMPLAINT: Patient [...] concerns with healing wound Khoa Silveira, MSN, VETERINARIAN HELPER December 28[facility] History of Present illness Narrative* Khoa Silveira, BRENDA.VETERINARIAN HELPER - 12/28/2024 11:03 AM EDT Images from the original note were not included. [facility] Clinic Date: December [...] activities, including lifting weights and riding roller XTWIPers, but notes that she is still in [...] concerns with healing wound Khoa Silveira, MSN, VETERINARIAN HELPER December 28, 2024 * Shireen Morrissey - [...] Temperature: No Drains: No documented in this encounterToledo Hospital05-30-2025 NoteHNO ID: [id number] Author: ?, ?, ? Service: ? Author [...] Wound: clean AND dry Temperature: No Drains: [facility]05-23-2025 NoteEducation (GENBMI) TIFFANI ALLISON ([id number]) 1985 F Date Time Provider Department 12/21/24 [...] ORAL) Encounter Status:Closed by CHA KHAN on 12/21/24[facility] 12-21-2024 NoteHNO ID: [id number] Author: CHA KHAN RD Service: ? Author [...] visit. Either the patient or their legal telesales representative has been informed of the risks [...] thiamine) Iron 45-60 mg and calcium citrate 4599-1087 mg/day in divided doses 2. Protein goal: [...] Signed by: Cha Khan RDN, MARIA EUGENIA, [facility]05-23-2025 Note HNO ID: [id number] Author: AYSE GRISSOM MD Service: ? Author [...] Laparoscopic AND Bariatric Surgery Bariatric AND Metabolic [facility]05-22-2025 Evaluation note* Diagnosis Onset Date Resolution Status [...] 2024 9:55amScreening for lipid disordersacuteJuly 2024 9:55am [facility] Work Phone: 1(148) 455-410805-21-2025 NoteHNO ID: [id number] Author: JERALD SOUZA, PhD Service: ? Author Type: Physician Type: Progress Notes Filed: 12/26/2024 00:15 Note Text: [facility] DEPART[facility] OF PSYCHIAT[facility]CHOLOGY/[facility] Bariatric Behavioral Services Progress Note December 19, 2024 Billing codes: ABRAM FIELDS [address] Quang CPT Code: - 7632582 Virtual Group Psychotherapy Time initiated session: 12:00 PM to 1:11 PM I have communicated my name and active licensure. The patient's identity and physical location were verified at the time of this visit. Either the patient or their legal telesales representative has been informed of the risks and benefits of -- and alternatives to -- treatment through a remote evaluation/session and consents to proceed with the session remotely. Platform: Oxagen Session #: 1 with undersigned psychologist Index [...] once daily. metFORMIN (GLUCOPHAGE) (more content not included)...[facility] 12-14-2024 NoteHNO ID: [id number] Author: KHOA SILVEIRA APRN.VETERINARIAN HELPER Service: ? Author Type: Nurse Practitioner Type: Progress Notes Filed: 12/14/2024 15:25 Note Text: [facility] Clinic Date: December 14, 2024 Tiffani Allison 39 year old female CHIEF COMPLAINT: Patient presents for a wound check. HPI: Here for wound check after open bilateral TAR, incisional hernia repair and implantation of mesh on 11/23/[address] Jeff. Patient also underwent with Ayse Grisosm M.D. ([place]), a laparoscopic paraesophageal hernia repair [...] doxycycline. - Refilled muscle relaxers prescription at [facility]. - Advised to gradually reduce pain medication dosage. - Scheduled follow-up appointment on 12/28 at 11:00 AM. Khoa Silveira, MSN, VETERINARIAN HELPER December 14[facility]05[facility] History of Present illness Narrative* Khoa Silveira, IRRIGATION SERVICE TECHNICIAN.VETERINARIAN HELPER - 12/14/2024 11:27 AM EDT Images from the original note were not included. [facility] Clinic Date: December [...] doxycycline. - Refilled muscle relaxers prescription at [facility]. - Advised to gradually reduce pain medication dosage. - Scheduled follow-up appointment on 12/28 at 11:00 AM. WILBER Herrera, VETERINARIAN HELPER December 14, 2024 * Sudarshan Russell MA [...] Temperature: No Drains: No documented in this encounterToledo Hospital05-16-2025 NoteHNO ID: [id number] Author: SUDARSHAN RUSSELL MA Service: ? Author Type: Key Punch Teacher Type: Progress Notes Filed: 12/14/2024 15:25 Note Text: What is the reason for your visit today? Post op Who is your referring physician? Dr. Silveira Are you having poor oral intake? NO Have you had unintentional weight loss of 15 lbs/7 Kg in the last 3-6 months? NO Bowels: constipated Wound: drainage pink/ clear Temperature: No Drains: [facility]05-08-2025 Telephone encounter Note* Telephone Encounter - Kristi [...] legs - BEST TO ALWAYS present to [facility] where you had your surgery Patient verbalized understanding of all advice and instructions given. Kristi Watts RN [facility] COORDINATION TELEPHONE ENCOUNTER 2nd attempt for post op phone call LVM with call back number [facility]05-08-2025 Miscellaneous Notes* Telephone Encounter - Kristi [...] appt. Reminded patient of how to reach [facility] or their surgeons office. Patient reminded to seek medical attention if they develop chest pain, a sudden onset of shortness of breath or persistent pain in the calf of their legs - BEST TO ALWAYS present to [facility] where you had your surgery Patient verbalized understanding of all advice and instructions given. Kristi Watts RN [facility] COORDINATION TELEPHONE ENCOUNTER 2nd attempt for post op phone call LVM with call back number documented in this encounterToledo Hospital05-07-2025 Telephone encounter Note * Telephone Encounter - Kristi Watts RN - 12/05/2024 11:17 AM EDT [facility] COORDINATION TELEPHONE ENCOUNTER Post op call, Pt will call me back he answered and she was at an appointment [facility]05-07-2025 Miscellaneous Notes* Telephone Encounter - Kristi Watts RN - 12/05/2024 11:17 AM EDT [facility] COORDINATION TELEPHONE ENCOUNTER Post op call, Pt will call me back he answered and she was at an appointment documented in this encounterToledo Hospital05-07-2025 NoteHNO ID: [id number] Author: KHOA SILVEIRA APRN.VETERINARIAN HELPER Service: ? Author Type: Nurse Practitioner Type: Progress Notes Filed: 12/05/2024 13:10 Note Text: [facility] Clinic Date: December [...] - Doxycyline 100 m (more content not included)...[facility]05-07-2025 History of Present illness Narrative* Khoa Silveira APRN.VETERINARIAN HELPER - 12/05/2024 11:02 AM EDT [facility] Clinic Date: December [...] healing and overall progress. Khoa Silveira, MSN, VETERINARIAN HELPER December 05, 2024 * Sudarshan Russell MA [...] No Drains: Yes merced documented in this encounterToledo Hospital05-07-2025 NoteHNO ID: [id number] Author: SUDARSHAN RUSSELL MA Service: ? Author Type: Key Punch Teacher Type: Progress Notes Filed: 12/05/2024 13:10 Note Text: What is the reason for your visit today? Post op Who is your referring physician? Dr. Silveira Are you having poor oral intake? NO Have you had unintentional weight loss of 15 lbs/7 Kg in the last 3-6 months? NO Bowels: constipation Wound: drainage blood Temperature: No Drains: Yes [facility]05-02-2025 NoteHNO ID: [id number] Author: AYSE GRISSOM MD Service: ? Author Type: Physician Type: Progress Notes Filed: 11/30/2024 13:43 Note Text: Metabolic Surgery Postoperative Virtual Clinic Visit Name: Tiffani Allison This visit was performed virtually via [employer] technology due to the COVID-19 epidemic as [...] Laparoscopic AND Bariatric Surgery Bariatric AND Metabolic [facility]05-02-2025 History of Present illness Narrative* Ayse Grissom [...] Laparoscopic & Bariatric Surgery Bariatric & Metabolic [facility] documented in this encounterToledo Hospital04-29-2025 NoteHNO ID: [id number] Author: RUPAL PINTO RN Service: Nursing Author Type: Registered Nurse Type: Progress Notes Filed: 11/27/2024 13:09 Note Text: Patient is ready for discharge. AVS was explained to patient with all questions answered. IV was removed per policy. Patient was taken to the lobby by staff in a wheelchair with all belongings.[facility]04-29-2025 NoteHNO ID: [id number] Author: TASHA DE LA GARZA MD Service: General Surgery Author Type: Resident Type: Progress Notes Filed: 11/27/2024 07:17 Note Text: GENERAL SURGERY PROGRESS NOTE Tiffani Allison [id number] ASSESSMENT AND PLAN Tiffani Allison is a [...] La Garza MD PGY5 General Surgery Resident [id number] Patient Active Hospital Problem List: Ventral hernia [...] 18 Gauge 3 days Drain Duration Drain/Tube [facility] Left Upper Quadrant Abdomen Drain #1 -- days Drain/Tube 11/23/24 1604 [facility] Dipak Rodriguez Right Upper Quadrant Abdomen Drain #3 3 days Drain/Tube 11/23/24 1605 [facility] Dipak Rodriguez Left Lower Quadrant [...] 150CM OR LESS/ SLEEVE TO BYPASS - GeneralProm[facility]04-28-2025 NoteHNO ID: [id number] Author: TRINIDAD MAGAÑA RN Service: Care Management Author Type: Registered Nurse Type: Care Mgt Initial Assessment Filed: 11/26/2024 14:14 Note Text: CARE MANAGEMENT: ASSESSMENT AND DISCHARGE PLAN SERVICE DATE: November 26, 2024 SERVICE TIME: 2:13 PM PCP: Elisabeth Beckman NP Primary Contact: Extended Emergency Contact Information Primary Emergency Contact: Jesus Allison Address: [address] [place] [address] Mobile Relation: Spouse Secondary Emergency Contact: Martha Esteban [facility] Mobile Relation: Mother Admission Status: Inpatient Insurance Provider: SARAH POS Discharge Planning requested by: Per Department Practice Potential Transition Plans No Services Indicated Advance Directives Current Advance Directive: None Hired Worker Attempted to Assist with AD Completion: Yes [...] Be able to go home, General wellness [place] Explained: [place] Given: No Reason Not Given: [...] Allison DATE: November 26, 2024 TIME: 2:13 [facility]04-28-2025 NoteHNO ID: [id number] Author: TASHA DE LA GARZA MD Service: General Surgery Author Type: Resident Type: Progress Notes Filed: 11/26/2024 07:26 Note Text: GENERAL SURGERY PROGRESS NOTE Tiffani Allison [id number] ASSESSMENT AND PLAN Tiffani Allison is a [...] diet. Off ketamine drip PLAN: -wean off [employer] tolday -Bariatric stage diet -Continue DVT ppx -IS, OOB -Maintain MERCED drains -Tentatively home tomorrow Tasha De La Garza MD PGY5 General Surgery Resident [id number] Patient Active Hospital Problem List: Ventral hernia [...] Forearm 20 Gauge 3 days Peripheral 11/23/24 [facility] Short Right Wrist 18 Gauge 3 days Peripheral 11/23/24 1537 Right Hand 18 Gauge 2 days Drain Duration Drain/Tube [facility] Left Upper Quadrant Abdomen Drain #1 -- days Drain/Tube 11/23/24 1604 [facility] Dipak Rodriguez Right Upper Quadrant Abdomen Drain #3 2 days Drain/Tube 11/23/24 1605 [facility] Dipak Rodriguez Left Lower Quadrant Abdomen Drain #2 2 days SURGERY/PROCEDURE: Procedure(s) and Anesthesia Type: Panel 1: * HERNIORRHAPHY INCISIONAL ABDOMINAL RECURRENT REDUCIBLE GREATER THAN 10cm - General Panel 2: * LAPAROSCOPIC RPR PARAESOPHAGEAL HERNIA W/O FUNDOPLASTY W/ MESH - General * LAPAROSCOPIC GASTRIC RESTRICTIVE SURG W/ BYPASS AND MARIA ANTONIA-EN-Y 150CM OR LESS/ SLEEVE TO BYPASS - [facility]04-27-2025 NoteHNO ID: [id number] Author: TUAN MORSE MD Service: General Surgery Author Type: Resident Type: Progress Notes Filed: 11/25/2024 10:29 Note Text: GENERAL SURGERY PROGRESS NOTE Tiffani Allison [id number] ASSESSMENT AND PLAN Tiffani Allison is a [...] until Hgb stable on recheck. [facility] Will engage APMS for assistance in management of postoperative pain. Ketamine GTT, [employer]. - potassium elevated on AM labs, rechecking - Ambulate, PT/OT - Incentive spirometry. Wean supplemental O2 as able - Diet progression per bariatric surgery. Phase II liquids - OK for VTE chemoprophylaxis - Continue [facility] care Dispo: [facility] Patient discussed with Dr. Oliva Morse [...] Forearm 20 Gauge 2 days Peripheral 11/23/24 [facility] Short Right Wrist 18 Gauge 2 days Peripheral 11/23/24 1537 Right Hand 18 Gauge 1 day Drain Duration Drain/Tube [facility] Left Upper Quadrant Abdomen Drain #1 -- days Drain/Tube 11/23/24 160[facility] Dipak Rodriguez Right Upper Quadrant Abdomen Drain #3 1 day Drain/Tube 11/23/24 1605 [facility] Dipak [place] Left Lower Quadrant Abdomen Drain #2 1 day SURGERY/PROCEDURE: Procedure(s) and Anesthesia Type: Panel 1: * HERNIORRHAPHY INCISIONAL ABDOMINAL RECURRENT REDUCIBLE GREATER THAN 10cm - General Panel 2: * LAPAROSCOPIC RPR PARAESOPHAGEAL HERNIA W/O FUNDOPLASTY W/ MESH - General * LAPAROSCOPIC GASTRIC RESTRICTIVE SURG W/ BYPASS AND MARIA ANTONIA-EN-Y 150CM OR LESS/ SLEEVE TO BYPASS - [facility]04-26-2025 NoteHNO ID: [id number] Author: TUAN MORSE MD Service: General Surgery Author Type: Resident Type: Progress Notes Filed: 11/24/2024 11:01 Note Text: GENERAL SURGERY PROGRESS NOTE Tiffani Allison [id number] ASSESSMENT AND PLAN Tiffani Allison is a [...] VTE ppx per bariatric service. [facility] Will engage APMS for assistance in [...] Forearm 20 Gauge 1 day Peripheral 11/23/24 [facility] Short Right Wrist 18 Gauge 1 day Peripheral 11/23/24 1537 Right Hand 18 Gauge <1 day Drain Duration Drain/Tube Dipak Rodriguez Left Upper Quadrant Abdomen Drain #1 -- days Indwelling Urinary Catheter 11/23/24 0810 [facility] 3-way Catheter 18 Fr 1 day Drain/Tube 11/23/24 1604 [facility] Dipak Rodriguez Right Upper Quadrant Abdomen Drain #3 <1 day Drain/Tube 11/23/24 1605 [facility] Dipak Rodriguez Left Lower Quadrant Abdomen Drain #2 <1 day SURGERY/PROCEDURE: Procedure(s) and Anesthesia Type: Panel 1: * HERNIORRHAPHY INCISIONAL ABDOMINAL RECURRENT REDUCIBLE GREATER THAN 10cm - General Panel 2: * LAPAROSCOPIC RPR PARAESOPHAGEAL HERNIA W/O FUNDOPLASTY W/ MESH - General * LAPAROSCOPIC GASTRIC RESTRICTIVE SURG W/ BYPASS AND MARIA ANTONIA-EN-Y 150CM OR LESS/ SLEEVE TO BYPASS - [facility]Prom[facility]04-25-2025 NoteHNO ID: [id number] Author: JACQUIE HARRIS APRN.INSOLE TAPER Service: ? Author Type: Nurse Registration Coordinator Type: Anesthesia Procedure Notes Filed: 11/23/2024 15:55 Note Text: ANESTHESIOLOGY PROCEDURE NOTE PIV General Information Procedure Start Time/Medication Administration: 11/23/2024 3:37 PM Procedure End Time: 11/23/2024 3:37 PM Patient Location: OR Staffing Anesthesiologist: Delores Roque MD INSOLE TAPER: Jacquie Harris APRN.INSOLE TAPER Performed by: INSOLE TAPER Preparation Sterility Preparation: hand hygiene performed prior to procedure, surgical cap used, mask used, skin prep agent completely dried prior to procedure Site Prep: alcohol Procedure Details Indication: need for IV access Needle Size/Type: 18 gauge angiocath Orientation: Right Location: Hand Imaging Guidance Used: No SIGNATURE: Jacquie Harris APRN.INSOLE TAPER PATIENT NAME: Tiffani Allison DATE: November 23, 2024 TIME: 3:37 PM CSN: [id number] Flower Hospital04-25-2025 NoteHNO ID: [id number] Author: MARLENE LINK APRN.INSOLE TAPER Service: ? 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 - Patient case reviewed. All nutrition appointments completed, psychology clearance obtained, surgeon visit and procedure type verified, medical optimization obtained and all testing complete. Does patient have Con ABO? Yes, patient has Con ABO. [facility] - a research program mentioned [...] via My Chart: Yes Kristi Watts RN [facility]04-11-2025 Miscellaneous Notes* Telephone Encounter - Kristi [...] - Stop all ASA and NSAID products, Roslyn 3 fish oil, herbal products such as [...] - Ale video assigned. 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 - Patient case reviewed. All nutrition appointments completed, psychology clearance obtained, surgeon visit and procedure type verified, medical optimization obtained and all testing complete. Does patient have Con ABO? Yes, patient has Con ABO. [facility] - a research program mentioned [...] Yes Kristi Watts RN documented in this encounterToledo Hospital04-08-2025 NoteHNO ID: [id number] Author: REINALDO MENDOZA, PhD Service: ? Author Type: Psychologist Type: Progress Notes Filed: 11/06/2024 16:26 Note Text: [facility] Disease [facility] Surgery Artemas Name: Tiffani Allison MR#: [id number] Date: 11/06/2024 Time: 1 hour Referred by: [...] she could be seen again. Reinaldo Webb, Ph.D.[facility]04-08-[facility] History of Present illness Narrative* Reinaldo Mendoza, PhD - 11/06/2024 4:23 PM EDT [facility] Disease and Surgery Artemas Name: Tiffani Allison MR#: [id number] Date: 11/06/2024 Time: 1 hour Referred by: [...] again. Reinaldo Webb, Ph.D. documented in this encounterToledo Hospital04-08-2025 Instructions* Patient Instructions* Bela Banegas PA-C - 11/06/2024 10:48 AM EDT Images from the original note were not included. [facility] PATIENT PREOPERATIVE INSTRUCTIONS Khoa Silveira APRN.C* has scheduled you for your procedure at this surgery center: * No surgery found * [facility] [place] Scheduling Office: [phone] --[address] [place] [address]. Please read below carefully for your personalized [...] office. If you are currently using a hffn-mym-vhgy injectable or oral medication for diabetes or [...] please check with your dialysis center or oil field caser to see if any adjustments need to [...] Procedures: - YOU MUST HAVE A RESPONSIBLE SURGICAL DENTAL ASSISTANT TAKE YOU HOME. A TACTICAL AIR CONTROL PARTY MANAGER OR MOLDER MEAT CANNOT BE MADE A RESPONSIBLE SURGICAL DENTAL ASSISTANT. - We recommend that a responsible person [...] call the Tuesday before. Your surgeon s paving machine operator will tell you what time to call the office. - If you have not reached the departmental paving machine operator by 5 P.M., call [phone] after 5 P.M. the day before your surgery. Please be aware that emergency situations arise, which may delay or change your surgical time. If this happens, we will notify you as soon as possible and regret any inconvenience. If you already have an Advance Directive, please fax a copy to [phone] or email to for it to be [...] day. Bela Banegas PA-C documented in this encounterToledo Hospital04-08-2025 History and physical note * Bela [...] fevers. Neurological: No history of TIA's, stroke, PRESSROOM SUPERVISOR tumor, impaired sensorium, hemiplegia, paraplegia orquadraplegia. No neurological symptoms or problems. Respiratory: No history of current cough or dyspnea, or pneumonia in the past 6 weeks. No history of respiratory/pulmonary symptoms or problems. Cardiovascular: No history of HTN requiring medication, no history of angina, CHF, PA, cardiac surgery or stents. Denies rest pain, [...] 406 QTC Calculation (Bazett) 453 Calculated P [place] 39 Calculated R [place] 40 Calculated T [place] 40 Impression NORMAL SINUS RHYTHM NORMAL ECG No results found for this or any previous visit (from the past 10918 hours). Spirometry Data No data to display Instructions Given to Patient: Instructions located in the after visit summary. Patient given verbal and written preop instructions and voices comprehension and compliance. SIGNATURE: Bela Banegas PA-C PATIENT NAME: Tiffani Allison DATE: 11/06/2024 TIME: 10:42 AM [facility]04-08[facility] History and physical note* Bela Banegas PA-C - 11/06/2024 10:21 AM EDT Images from the original note were not included. [place] [facility] Pre-Anesthesia Consultation [facility] HISTORY [...] fevers. Neurological: No history of TIA's, stroke, PRESSROOM SUPERVISOR tumor, impaired sensorium, hemiplegia, paraplegia orquadraplegia. No neurological symptoms or problems. Respiratory: No history of current cough or dyspnea, or pneumonia in the past 6 weeks. No history of respiratory/pulmonary symptoms or problems. Cardiovascular: No history of HTN requiring medication, no history of angina, CHF, PA, cardiac surgery or stents. Denies rest pain, [...] 406 QTC Calculation (Bazett) 453 Calculated P [place] 39 Calculated R [place] 40 Calculated T [place] 40 Impression NORMAL SINUS RHYTHM NORMAL ECG No results found for this or any previous visit (from the past 85015 hours). Spirometry Data No data to display Instructions Given to Patient: Instructions located in the after visit summary. Patient given verbal and written preop instructions and voices comprehension and compliance. SIGNATURE: Bela Banegas PA-C PATIENT NAME: Tiffani Allison DATE: 11/06/2024 TIME: 10:42 AM documented in this encounterToledo Hospital04-03-2025 History of Present illness Narrative* Ran [...] (gastroesophageal reflux disease) Hiatal hernia HTN (hypertension) ([facility]) Hypothyroidism (acquired) ([facility]) Iron deficiency anemia Kidney stones Lumbosacral disc disease Migraines ([facility]) Polycystic ovary syndrome 2010 Seizure ([facility]) 2019 hx of hospitalization Tear of meniscus [...] Insecurity: No Food Insecurity (09/22/2023) Received from [employer], [facility] Hunger Screening Within the past 12 months [...] noted per medical diagnosis in the EMR Rna Osullivan DPM documented in this encounterBarnes-Jewish Saint Peters [id number] History of Present illness Narrative* Ran Osullivan [...] Hiatal hernia HTN (hypertension) (CMS/HCC) Hypothyroidism (acquired) (CMS/[facility]) Iron deficiency anemia Kidney stones Lumbosacral disc disease Migraines (CMS/HCC) Polycystic ovary syndrome 2010 Seizure (CMS/[facility]) 2019 hx of hospitalization Tear of meniscus [...] Insecurity: No Food Insecurity (09/22/2023) [facility] [employer] [facility] Within the past 12 [...] Ibuprofen Ran Osullivan DPM documented in this encounterBarnes-Jewish Saint Peters [id number] Telephone encounter Note* Telephone Encounter - Kristi Watts RN - 09/12/2024 12:54 PM EST [facility] COORDINATION TELEPHONE ENCOUNTER I spoke to pt about what is needed (EKG and LABS) to submit to insurance.Pt is working on that today. [facility]02-12-2025 Miscellaneous Notes* Telephone Encounter - Kristi Watts RN - 09/12/2024 12:54 PM EST [facility] COORDINATION TELEPHONE ENCOUNTER I spoke to pt about what is needed (EKG and LABS) to submit to insurance.Pt is working on that today. documented in this encounterToledo Hospital02-03-2025 History of Present illness Narrative* Ran [...] (gastroesophageal reflux disease) Hiatal hernia HTN (hypertension) ([facility]) Hypothyroidism (acquired) ([facility]) Iron deficiency anemia Kidney stones Lumbosacral disc disease Migraines ([facility]) Polycystic ovary syndrome 2009 Seizure ([facility]) 2019 hx of hospitalization Tear of meniscus [...] Insecurity: No Food Insecurity (09/22/2023) Received from [employer], [facility] Hunger Screening Within the past 12 months [...] injection Ran Osullivan DPM documented in this encounterBarnes-Jewish Saint Peters HospitalTodcbkqnoe35-39-1469 NoteHNO ID: [id number] Author: CHADWICK HELM, PhD Service: ? Author Type: Psychologist Type: Progress Notes Filed: 08/24/2024 12:09 Note Text: [facility] Psychology- documentation Fax message received from NI Kim, pt's STRIKE PLATE ATTACHER at [facility]. Pt diagnosed with Anxiety Disorder, unspecified (F41.9). [...] as outlined above. Chadwick Helm, Ph.D., Clinical PsychologistPromedica Flower Hospital01-17-2025 History of Present illness Narrative* REMY [...] to your cam boot. documented in this encounterBarnes-Jewish Saint Peters HospitalItqdenvgjn46-33-7671 Instructions* Patient Instructions* REMY Feliz - 08/17/2024 [...] to your cam boot. documented in this encounterBarnes-Jewish Saint Peters HospitalUxzhmugjfs35-54-1662 NoteHNO ID: [id number] Author: ?, ?, ? Service: ? Author Type: ? Type: Progress Notes Filed: 08/03/2024 14:49 Note Text: Sleep Study Check-In Documentation Date: August 03, 2024 Name: Tiffani Allison Comments: HST was returned in working order with all sleep questionnaires [facility] NoteHNO ID: [id number] Author: ?, ?, ? Service: ? Author Type: ? Type: Progress Notes Filed: 07/27/2024 15:50 Note Text: Nomad # [id number] , date shipped out 07-27-24 Fed Ex only Tracking mailout: [id number] Tracking return: [id number]12[facility] History of Present illness Narrative* REMY [...] with good arch support. documented in this [facility]12-10-2024 Instructions* Patient Instructions* REMY Feliz - [...] with good arch support. documented in this [facility]12-10-2024 NoteHNO ID: [id number] Author: ?, ?, ? Service: ? Author Type: ? Type: Progress Notes Filed: 07/10/2024 09:42 Note Text: Sleep Study Check-In Documentation Date: July 10, 2024 Name: Tiffani Allison Comments: HST was returned in work order. Study did not occur. The device is blank. Sent MYC Message. Monty MendezPromedica Flower Hospital12-10-2024 History of Present illness Narrative* Monty [...] - 07/02/2024 1:59 PM EST Nomad # [id number] , +GPS Date shipped out: 07/02/24 SENT FEDEX DELIVERY - FEDEX RETURN Tracking mailout: [id number] Tracking return: [phone] [id number] * Dany Mancini III, PhD - 07/02/2024 9:44 AM EST July 02, 2024 Standing PSG Orders signed in the last 90 days None Future PSG Orders signed in the last 90 days Ordered Auth. provider HOME SLEEP APNEA TEST (HSAT) [[id number]] 05/24/24 Renetta Ruano MD Assoc. diagnoses: Morbid [...] No CONSULT TO SLEEP MEDICINE - ADULT [[id number]] 05/24/24 Renetta Ruano MD Assoc. diagnoses: Morbid [...] from Renetta Goldberg MD , a [facility] Staff. Visit prep complete. Comments :No The sleep study is scheduled for 07-03-24. Insurance: Payor: / Plan: [facility] / Product Type: Indemnity / Payer/Plan Subscr Sex Relation Sub. Ins. ID Effective Group Num 1. - TR* TIFFANI ALLISON 1985 Female Self [id number] 08/01/23 [address] Margo Liao documented in this encounterToledo Hospital12-05-2024 NoteHNO ID: [id number] Author: ?, ?, ? Service: ? Author Type: ? Type: Progress Notes Filed: 07/10/2024 09:42 Note Text: Pt stated the device didn't work. Informed patient to send device back and we will call reschedule.[facility]12-02-2024 NoteHNO ID: [id number] Author: ?, ?, ? Service: ? Author Type: ? Type: Progress Notes Filed: 07/10/2024 09:42 Note Text: Nomad # [id number] , +GPS Date shipped out: 07/02/24 SENT FEDEX DELIVERY - FEDEX RETURN Tracking mailout: [id number] Tracking return: [id number]12-02-2024 NoteHNO ID: [id number] Author: DANY MANCINI III, PhD Service: ? Author Type: Physician Type: Progress Notes Filed: 07/10/2024 09:42 Note Text: July 02, 2024 Standing PSG Orders signed in the last 90 days None Future PSG Orders signed in the last 90 days Ordered Auth. provider HOME SLEEP APNEA TEST (HSAT) [[id number]] 05/24/24 Renetta Ruano MD Assoc. diagnoses: Morbid [...] No CONSULT TO SLEEP MEDICINE - ADULT [[id number]] 05/24/24 Renetta Ruano MD Assoc. diagnoses: Morbid [...] plan. Dany Mancini III, PhD 1:38 PM, 07/02/2024[facility]11-29-2024 NoteHNO ID: [id number] Author: ?, ?, ? Service: ? Author Type: ? Type: Progress Notes Filed: 07/10/2024 09:42 Note Text: June 29, 2024 An order has been received for Home Sleep Apnea Test (HSAT) from Renetta Goldberg MD , a [facility] Staff. Visit prep complete. Comments :No The sleep study is scheduled for 07-03-24. Insurance: Payor: [employer] / Plan: [employer] [facility] / Product Type: Indemnity / Payer/Plan Subscr Sex Relation Sub. Ins. ID Effective Group Num 1. - TR* TIFFANI ALLISON 1985 Female Self [id number] 08/01/23 [address] [facility] NoteHNO ID: [id number] Author: CHADWICK HELM, PhD Service: ? Author Type: Psychologist Type: Progress Notes Filed: 06/21/2024 14:47 Note Text: [facility] METABOLIC/BARIATRIC SURGERY (MBS) BEHAVIORAL HEALTH EVALUATION Patient name: Tiffani Allison Date of service: June 21, 2024 Time of service: 1:00pm - 2:00pm Cost center: [facility] CPT code(s): 83522 Psychiatric diagnostic evaluation - 23503 Brief Emotional/Behavioral Assessment with scoring/documentation (2 units) [...] a copy of the consent form via Digiscend. Prior to initiating the virtual visit, I communicated my name and active licensure. The patient's identity (name, ) and physical location were verified. Patient was encouraged to move to a private space free of distractions. Either the patient or their legal telesales representative has been informed of the risks [...] contact patient at their preferred phone number ([phone]) or via email ([email or web address]). Plan in case of emergency: Go to emergency room or call 911 Closest emergency room: [facility] Extended Emergency Contact Information Primary Emergency Contact: Jesus Allison Address: [address] [place] [address] Mobile Relation: Spouse Platform: [employer] for [employer] Address of patient during visit: home ([address] [place] [phone]) Collateral parties present: none IDENTIFYING INFORMATION Ms. Tiffani Allison is a 38 year old, female who was referred by Dr. Grissom. She is seeking revision (sleeve to bypass) for Class III obesity and hiatal hernia. Initial gastric sleeve surgery in July 2017 (in [place]). MOTIVATION FOR SURGERY / UNDERSTANDING OF PROCEDURE [...] MEALS melatonin 1 m (more content not included)...[facility]11-20-2024 History of Present illness Narrative* REMY [...] she did go get imaging done at [place] and has brought thoseimages with her. She does take a baby aspirin a day she states that she does not have history of DVT but is concerned with the right lower calf swelling and pain with mobility. She denies fever chills shortness of breath or chest pain. She is a gllu-dj-zeuo mom PAST MEDICAL HISTORY: Past Medical History: [...] with food. REMY Feliz documented in this [facility]11-20-2024 Instructions* Patient Instructions* REMY Feliz - [...] always take with food. documented in this [facility]11-19-2024 Evaluation note* Diagnosis Onset Date Resolution Status Admit Date Anxiety acuteNovember 2023 10:02amDepressionacuteNovember 2023 10:02am AnxietyacuteJanuary 2024 10:51amDepressionacuteJanuary 2024 10:51am IFG (impaired fasting glucose)acuteJanuary 2024 10:51amObesity, Class III, BMI 40-49.9 (morbid obesity)acuteJanuary 2024 10:51amAnxietyacuteFebruary 2024 11:18amDepressionacuteFebruary 2024 11:18amIFG (impaired fasting glucose)acuteFebruary 2024 11:18am [facility] Work Phone: 1(876) 270-907111-15-2024 NoteHNO ID: [id number] Author: LELO IRENE RT(R) Service: ? Author [...] PATIENT PRESENTS WITH AN IMPLANTABLE OR ATTACHED INSTRUCTOR EXTENSION WORK: No RADIOLOGY DEPARTMENT: General X-ray: Exam(s) Completed: Chest X-Ray PERIPHERAL IV DATA: Not applicable SIGNED BY: RT Vanna(R) June 15, 2024 12:23 [facility]11-14-2024 NoteHNO ID: [id number] Author: CHADWICK HELM, PhD Service: ? Author Type: Psychologist Type: Progress Notes Filed: 06/14/2024 16:11 Note Text: [facility] Bariatric Behavioral Services Progress Note June 14, 2024 Patient did not check in for scheduled appointment. This visit will be marked as a no-show. Cahdwick Helm, Ph.D. Clinical PsychologistProm[facility]ica [facility] Instructions* Patient Instructions* Leah Zuniga, VALENTINO - 06/07/2024 1:53 PM EST Nutrition Intervention 06/07/2024: Modify type and amount of foods consumed for meals and snacks 1. Read Nutritional Guidelines Section of Your Guide to Surgery by next session https://my.[facility].org/-/scassets/files/org/bariatric/guides/bmiguidebook-[email or web address].[email or web address]?la=e n 2. Do not skip meals. [...] (16 g protein), Owyn (20 g protein), Dodge Breakfast Essentials Light Start mixed with fat [...] Continue taking daily bariatric vitamins/minerals and include 7985-8724 mg calcium citrate daily(separate 2 hours from iron, and take each 500-600 mg dose 4 hours apart) Here are a few options to consider: - Bariatric Fusion: 4 Complete Multivitamin chewables per day OR 1 Multivitamin capsule and 3305-4585 mg calcium citrate per day OR 2 Multivitamin soft chews per day + 3 calcium citrate soft chews + 1 iron soft chew per day www.bariatricfusion.com - Bariatric Choice: 4 All-in-One Bariatric Multivitamin chewables per day OR 1 Once Daily BariatricMultivitamin capsule and 2939-2321 mg calcium citrate per day www.bariatricchoice.com - Bariatric Pal: 4 All-in-One Multivitamin chewables per day OR 1 Multivitamin One (chewable or capsule) and 8050-2312 mg calcium citrate per day www.Zero9.bariatricpal.Vita Products/collections/bariatric-vitamins - Bariatric Advantage: 1 Ultra Solo multivitamin w/ iron (chewable or capsule) OR 2 chewable Advanced Multi EA w/ iron and 0559-7353 mg calcium citrate per day OR 2 Multi Chewy Bites and 3474-6006 mgcalcium citrate and 45-60 mg iron per day www.bariatricadvantage.com - Procare Health: 1 Bariatric Multivitamin w/ iron (capsule or chewable) and 2172-5466 mg calcium citrate per day www.Global MailExpress - Celebrate: 2 Multi-Complete (chewable or capsule) OR 1 CelebrateOne Multivitamin capsule and 1351-6278 mg calcium citrate per day OR 2 Multivitamin soft chews + 3 calcium citrate soft chews + 1 iron soft chew per day https://celebrateMingleboxs.Vita Products - Barilife: 1 Just One Bariatric Multivitamin w/ iron (chewable or capsule) and 9179-6394 mg calcium citrate per day www.bariEduKoala.Vita Products - Barimelts: 2 Multivitamin w/ iron tablets and 9038-6956 mg calcium citrate per day www.barimelts.Vita Products Pre-op goal weight: 292 pounds Protein needs: 95 gm per day Navigator: [email or web address] Please follow the below link to join our Navigation Welcome and Next Steps Meeting. Meetings are held weekly on Tuesdays from 12:00-1:00 pm. [email or web address] m Please call [phone], option 5. Leave a message for the [...] Control shakes per day 5 packets of Dodge Breakfast Essentials Light Start mixed with fat [...] 2 weeks pre op [facility] History of Present illness Narrative* Leah Zuniga RD - 06/07/2024 1:15 PM EST [facility] Nutrition Therapy: Virtual Consult - Initial Assessment I have communicated my name and active licensure. The patient s identity and physical location wereverified at the time of this visit. Either the patient or their legal telesales representative has been informed of the risks [...] Your Guide to Surgery by next session https://my.[facility].org/-/scassets/files/org/bariatric/guides/bmiguidebook-[email or web address]?la=e n 2. Do not skip meals. [...] (16 g protein), Owyn (20 g protein), Dodge Breakfast Essentials Light Start mixed with fat [...] Continue taking daily bariatric vitamins/minerals and include 5466-7356 mg calcium citrate daily(separate 2 hours from iron, and take each 500-600 mg dose 4 hours apart) Here are a few options to consider: - Bariatric Fusion: 4 Complete Multivitamin chewables per day OR 1 Multivitamin capsule and 9136-7633 mg calcium citrate per day OR 2 Multivitamin soft chews per day + 3 calcium citrate soft chews + 1 iron soft chew per day www.bariatricfusion.com - Bariatric Choice: 4 All-in-One Bariatric Multivitamin chewables per day OR 1 Once Daily BariatricMultivitamin capsule and 9052-4919 mg calcium citrate per day www.bariatricchoice.com - Bariatric Pal: 4 All-in-One Multivitamin chewables per day OR 1 Multivitamin One (chewable or capsule) and 7766-2359 mg calcium citrate per day www.Zero9.bariatricpal.com/collections/bariatric-vitamins - Bariatric Advantage: 1 Ultra Solo multivitamin w/ iron (chewable or capsule) OR 2 chewable Advanced Multi EA w/ iron and 4332-7281 mg calcium citrate per day OR 2 Multi Chewy Bites and 1657-4932 mgcalcium citrate and 45-60 mg iron per day www.bariatricadvantage.com - Procare Health: 1 Bariatric Multivitamin w/ iron (capsule or chewable) and 1417-6491 mg calcium citrate per day www.Sevenpop.Vita Products - Celebrate: 2 Multi-Complete (chewable or capsule) OR 1 CelebrateOne Multivitamin capsule and 0010-2975 mg calcium citrate per day OR 2 Multivitamin soft chews + 3 calcium citrate soft chews + 1 iron soft chew per day https://BuddyBetebrateMingleboxs.Vita Products - Barilife: 1 Just One Bariatric Multivitamin w/ iron (chewable or capsule) and 8777-1797 mg calcium citrate per day www.bariEduKoala.Vita Products - Barimelts: 2 Multivitamin w/ iron tablets and 7529-1261 mg calcium citrate per day www.barimelts.Vita Products Pre-op goal weight: 292 pounds Protein needs: 95 gm per day Navigator: [email or web address] Please follow the below link to join our Navigation Welcome and Next Steps Meeting. Meetings are held weekly on Tuesdays from 12:00-1:00 pm. [email or web address] m Please call [phone], option 5. Leave a message for the [...] Control shakes per day 5 packets of Dodge Breakfast Essentials Light Start mixed with fat [...] exercise - limited by large hernia. ? Hitchcock body weight: 174 lbs Excess body weight: [...] Physical limitations affecting learning: None Referred by: rPaveena EVERETT Billing Type: Initial Assess/15 min 2 units SIGNATURE: Leah Zuniga RD PATIENT NAME: Tiffani Allison DATE: June 07, 2024 TIME: 4:01 PM [facility]24 NoteHNO ID: [id number] Author: LEAH ZUNIGA RD Service: ? Author Type: Registered Dietitian Type: Progress Notes Filed: 06/07/2024 13:53 Note Text: [facility] Nutrition Therapy: Virtual Consult - Initial Assessment I have communicated my name and active licensure. The patient?s identity and physical location were verified at the time of this visit. Either the patient or their legal telesales representative has been informed of the risks [...] Guide to Surgery by next sessionhttps://my.[facility].org/-/scassets/files/org/bariatric/guides/bmig uidebook-[email or web address].ashx?la=en 2. Do not skip [...] (16 g protein), Owyn (20 g protein), Dodge Breakfast Essentials Light Start mixed with fat [...] Continue taking daily bariatric vitamins/minerals and include 2818-2667 mg calcium citrate daily (separate 2 hours from iron, and take each 500-600 mg dose 4 hours apart) Here are a few options to consider: - Bariatric Fusion: 4 Complete Multivitamin chewables per day OR 1 Multivitamin capsule and 4163-2837 mg calcium citrate per day OR 2 Multivitamin soft chews per day + 3 calcium citrate soft chews + 1 iron soft chew per day www.bariatricfusion.com - Bariatric Choice: 4 All-in-One Bariatric Multivitamin chewables per day OR 1 Once Daily Bariatric Multivitamin capsule and 7663-4857 mg calcium citrate per day www.bariatricchoice.com - Bariatric Pal: 4 All-in-One Multivitamin chewables per day OR 1 Multivitamin One (chewable or capsule) and 8031-7154 mg calcium citrate per day www.Zero9.bariatricpal.com/collections/bariatric-vitamins - Bariatric Advantage: 1 Ultra Solo multivitamin w/ iron (chewable or capsule) OR 2 chewable Advanced Multi EA w/ iron and 3179-8845 mg calcium citrate per day OR 2 Multi Chewy Bites and 0506-0947 mg calcium citrate and 45-60 mg iron per day www.bariatricadvantage.Vita Products - Procare Health: 1 Bariatric Multivitamin w/ iron (capsule or chewable) and 9565-5132 mg calcium citrate per day www.Global MailExpress - Celebrate: 2 Multi-Complete (chewable or capsule) OR 1 CelebrateOne Multivitamin capsule and 4254-4197 mg calcium citrate per day OR 2 Multivitamin soft chews + 3 calcium citrate soft chews + 1 iron soft chew per day https://DDx Medias.Vita Products - Barilife: 1 Just One Bariatric Multivitamin w/ iron (chewable or capsule) and 6429-9282 mg calcium citrate per day www.bariEduKoala.com - Barimelts: 2 Multivitamin w/ iron tablets and 6010-8720 mg calcium citrate per day www.barimelts.com Pre-op goal weight: 292 pounds Protein needs: 95 gm per day Navigator: [email or web address] Please follow the below link to join our Navigation Welcome and Next Steps Meeting. Meetings are held weekly on Tuesdays from 12:00-1:00 pm. [email or web address] m Please call [phone], option 5. Leave a message for the navigation team when you are finished with all clearances (nutrition, psychology, medical, surgeon) PRE/POST-OP Instructions: 1. Start the full (more content not included)...[facility] 05-24-2024 Instructions* Patient Instructions* Renetta Ruano MD - 05/24/2024 2:27 PM EDT INSTRUCTIONS: 1) Please contact me (Dr. Ruano) if you have not heard about your test results within a few days after you had them done. Thank you: Contact information: [facility] M61/Attention: Dr. Ruano [address] [place] [address] 2) Please check with your insurance company regarding cost/coverage of any tests ordered prior to having them completed. Jacquelin Allison , Thank you for completing your visit today and we welcome you to the surgical program. We are sure that you will still have some additional questions and encourage you to reach out to your care provider via Cooleaf OR your Patient Navigator. The contact information for each Navigator is listed below: Bipin Muñoz and Talia: [email or web address] Bipin Hatch, Shakila, and Hong: [email or web address] Bhupendra Santos, Wilmer, and Pedro: [email or web address] Tyrell Pena, and Javier: Delores Ramos [email or web address] Additionally, you may find many of [...] free to ask for a hard copy. https://my.[facility].org/-/scassets/files/org/bariatric/guides/bmiguideboo k-[email or web address].ashx?la=en Once you complete all of the requirements (testing, consultations, diet, etc) from each provider, please call [phone] and select option #5 to initiate insurance approval. Also, if you have any questions along the way, we encourage you to join our weekly Navigation webinar every Tuesday from 12:00 pm - 1:00 pm. This webinar will give you an opportunity to chat with your patient navigator and learn about your specific program requirements. The link for this webinar isbelow: [email or web address] Please note scheduling information It is important to keep track of your scheduled appointments to ensure successful completion of oursurgical program. Any missed appointments can further delay your pre-surgical work-up. [facility] does offer an opt-in option for getting text message appointment reminders. Please follow the link below if you would like to opt into this service. [email or web address] As part of your surgical work up, [...] these tests. You may call your local [facility] to get an appointment. - Lab work- No appointment is needed for this, you may complete at any [facility].These are usually fasting labs, please be sure to fast (only water permitted) for 10-12 hours priorto the test. -Sleep Study- Please call [phone] or [phone] to get this appointment set up. -Sleep Medicine Consult- (Only needed if sleep study confirms sleep apnea) Please call [phone] [phone] to schedule an appointment. Any testing that is completed outside of [facility] will need faxed to [phone]. We look forward to working with you on this journey, Renetta Ruano MD documented [facility]10-[facility] History of Present illness Narrative* Renetta Ruano MD - 05/24/2024 2:15 PM EDT I have communicated my name and active licensure. The patient's identity and physical location wereverified at the time of this visit. 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 documented [facility]10-[facility]-2024 NoteHNO ID: [id number] Author: RENETTA RUANO MD Service: ? Author Type: Physician Type: Progress Notes Filed: 09/21/2024 09:27 Note Text: I have communicated my name and active licensure. The patient's identity and physical location were verified at the time of this visit. 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 [facility]10-24-[facility] Evaluation note* Diagnosis Onset Date Resolution Status Admit Date Anxiety acuteOctober 2023 9:57amDepressionacuteOctober 2023 9:57amRight ankle injuryacuteOctober 2023 9:57amRight ankle painacuteOctober 2023 9:57amAnxietyacuteNovember 2023 10:02amDepressionacuteNovember 2023 10:02amAnxietyacuteJanuary 2024 10:51amDepressionacuteJanuary 2024 10:51amObesity, Class III, BMI 40-49.9 (morbid obesity)acuteJanuary 2024 10:51[facility] Work Phone: [phone]) 111-250810-17-2024 Telephone encounter Note* Telephone Encounter - Kristi Watts RN - 05/17/2024 10:14 AM EDT BMI SPECIALTY CARE COORDINATION TELEPHONE ENCOUNTER LVM with call back number to tell pt next steps about enrolling in our program. [facility]10-17-2024 Miscellaneous Notes* Telephone Encounter - Kristi Watts RN - 05/17/2024 10:14 AM EDT BMI SPECIALTY CARE COORDINATION TELEPHONE ENCOUNTER LVM with call back number to tell pt next steps about enrolling in our program. documented in [facility]10-14-2024 NoteHNO ID: [id number] Author: AYSE GRISSOM MD Service: ? Author [...] TAR, versus TAR only and consideration for orbbjx-il-foylwp conversion later down the line. She will consider her options and let us know. SIGNATURE: Ayse Grissom MD PATIENT NAME: Tiffani Allison Advanced Laparoscopic AND Bariatric Surgery DATE: May 14, 2024 CSN: [id number] TIME: 2:48 PM 10min spent with patient.[facility]10-14-[facility] History of Present illness Narrative* Ayse [...] TAR, versus TAR only and consideration for xahwsr-ay-mmgmxm conversion later down the line. She will consider her options and let us know. SIGNATURE: Ayse Grissom MD PATIENT NAME: Tiffani Allison Advanced Laparoscopic & Bariatric Surgery DATE: May 14, 2024 CSN: [id number] TIME: 2:48 PM 10min spent with patient. documented in this encounterT[facility]10-10-2024 Evaluation note* Diagnosis Onset Date Resolution Status Admit Date HTN (hypertension) acuteOctober 2023 10:43amInappropriate sinus tachycardiaacuteOctober 2023 10:43amPalpitationsnoneactiveOctober 2023 10:43amAnxietyacuteOctober 2023 9:57amDepressionacuteOctober 2023 9:57amRight ankle injuryacute May 24, 2024 9:57amRight ankle painacuteOctober 2023 9:57amAnxiety acuteNovember 2023 10:02amDepressionacuteNovember 2023 10:02am [facility] Work Phone: 1(481) 134-380309-24-2024 NoteHNO ID: [id number] Author: AYSE GRISSOM MD Service: ? Author [...] 1 tablet by mouth (more content not included)...[facility] History of Present illness Narrative* Ayse [...] Level: 5 - High documented in this [facility]09-18-2024 Telephone encounter Note * Telephone Encounter - Kristi Watts RN - 04/18/2024 10:17 AM EDT BMI SPECIALTY CARE COORDINATION TELEPHONE ENCOUNTER LVM with call back number for pt to make an appt with Dr. Grissom. [facility]09-18-2024 Miscellaneous Notes* Telephone Encounter - Kristi Watts RN - 04/18/2024 10:17 AM EDT [facility] SPECIALTY CARE COORDINATION TELEPHONE ENCOUNTER LVM with call back number for pt to make an appt with Dr. Grissom. documented in this encounterToledo Hospital09-16-2024 NoteHNO ID: [id number] Author: ROCIO JEFF MD Service: ? Author [...] Rocio Jeff MD April 16, 2024 4:02 [facility]09-16-2024 History of Present illness Narrative * [...] Jeff Date: 04/16/2024 Time: 4:02 PM Tiffani Allsion is a 38 year old female here [...] Ran Padron - 04/16/2024 3:50 PM EDT [facility] Abdominal [facility] - HISTORY AND PHYSICAL Chief Complaint: [...] repair Ran Padron MS4 documented in this encounterToledo Hospital09-16-2024 NoteHNO ID: [id number] Author: ?, ?, ? Service: ? Author Type: ? Type: Progress Notes Filed: 04/23/2024 08:59 Note Text: [facility] Abdominal [facility] - HISTORY AND PHYSICAL Chief Complaint: [...] noted Assessment: Tiffani [place] (more content not included)...[facility] Nurse Note* Sudarshan Russell MA - 04/16/2024 2:36 PM EDT What is the reason for your visit today? Consult Who is your referring physician? Dr. Jeff Are you having poor oral intake? NO Have you had unintentional weight loss of 15 lbs/7 Kg in the last 3-6 months? NO Bowels: regular Wound: clean & dry Temperature: No Drains: No [facility]09-16-2024 Nurse Note* Sudarshan Russell MA - 04/16/2024 2:36 PM EDT What is the reason for your visit today? Consult Who is your referring physician? Dr. Jeff Are you having poor oral intake? NO Have you had unintentional weight loss of 15 lbs/7 Kg in the last 3-6 months? NO Bowels: regular Wound: clean & dry Temperature: No Drains: No documented in this encounterToledo Hospital09-11-2024 Telephone encounter Note * Telephone Encounter - Javier Kitchen LPN - 04/11/2024 4:03 PM EDT Contacted patient, verified name and . Advised of the following Abdominal Surgeries performed and patient had Imaging performed from [facility] 03/29/24 and to bring Imaging with her to appointment. 2018--Gastric Bypass ( [facility], [place]) 2017--Appendectomy ([place], [place]; [facility]) Advised patient will contact to obtain Operative Reports and patient to be sent MyChart Message to contact if any needs or concerns arise, patient acknowledged and verbalized understanding. Javier Kitchen LPN [facility]09-11-2024 Miscellaneous Notes* Telephone Encounter - Javier Kitchen LPN - 04/11/2024 4:03 PM EDT Contacted patient, verified name and . Advised of the following Abdominal Surgeries performed and patient had Imaging performed from [facility] 03/29/24 and to bring Imaging with her to appointment. 2018--Gastric Bypass ( [facility] [place]) 2017--Appendectomy ([place], [place]; [facility]) Advised patient will contact to obtain Operative Reports and patient to be sent That's [employer] Message to contact if any needs or concerns arise, patient acknowledged and verbalized understanding. Javier Kitchen LPN [facility]2024 NoteHNO ID: [id number] Author: LEAH CONTRERAS APRN.VETERINARIAN HELPER Service: ? 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 Quique Contreras APRN.[facility] March 20, 2024 2:38 PM Allergies As of Date: 03/20/2024 (Not on File) Date Reviewed: Never Reviewed Problem List As Of Date: 03/20/2024 (None) Encounter Status:Closed by LEAH CONTRERAS on 03/20/24[facility] 02-28-2024 Hospital Discharge instructionsAmbulatory Orders* Referral to General Surgery Time Frame: 02/28/24, Location: [facility] Work Phone: 1(147) 979-139704-03-2024 History of Present illness Narrative* Héctor Aguilar [...] Depression Hypertension Hypothyroidism Kidney stones Migraines Seizure ([facility]) REVIEW OF SYSTEMS: Head and Neck: Negative [...] for allowing me to participate in [facility]. If there are any questions, please do not hesitate to call me. Sincerely, HÉCTOR AGUILAR MD Video Visit via Real-time Synchronous Audiovisual Provider Location: [facility]- MEDICINE AT [address] [address] Patient Location: Patient's home Patient Location No Bake Molder: None Video Visit Consent Statement: I discussed [...] that there are some limitations compared to iyug-ky-ukal evaluations. We elected to proceed. documented in [facility] encounterMain [facility] History of Present illness Narrative* [...] linked telehealth rescheduledvisit. Eddie Chavez MD Professor, [facility] (we called the patient ourselves and were not able to successfully connect with her) documented in this encounterMain Campus [facility] Center02-22-2024 History of Present illness Narrative* [...] Yes Have you been seen here at [facility] in a previous ? No Recent ER visits or hospitalizations? No Bring blood sugar log or meter with you today? 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 Patient does have ultrasound office visit scheduled with us Thank you for allowing me to participate in Tiffani Allison . If there any questions please do not hesitate to contact us. Sincerely, HÉCTOR AGUILAR MD documented in this encounterSelect Medical Specialty [facility] - Cleveland-FairhillCódice Software [facility] [id number] History of Present illness Narrative* REMY Valdes [...] hour glucose order to have done at [facility] Follow Up: Patient is to return to [...] behalf of: REMY Valdes documented in this encounterBarnes-Jewish Saint Peters [id number] Miscellaneous Notes* Telephone Encounter - Janae Jiménez - 08/19/2023 10:42 AM EST LEFT A MESSAGE TO SCHEDULE USN AND CONSULT. 08/19/2023 1043 documented in this encounterMain [facility] Medical Center01-19-2024 Telephone encounter Note* Telephone Encounter - Janae Jiménez - 08/19/2023 10:42 AM EST LEFT A MESSAGE TO SCHEDULE USN AND CONSULT. 08/19/2023 1043 [facility]NaturalHealing [id number] Evaluation note* Encounter Date Diagnosis Assessment Notes [...] start metamucile and probiotics RTO 3 months Immediately Other 08-15-[address] [facility]06[facility] Hospital Discharge instructions Patient Education 01/26/2023 10:54:04 [...] include: ?8 oz (237 mL) of milk, ljfkoqv-iltgltckunir-fkwqp milk, and calcium- fortifiedfruit juice. Calcium-fortified means [...] ?Spinach (cooked), rhubarb, beets, sweet potatoes, and Yemeni chard. ?Peanuts. ?Potato chips, bengali fries, and baked potatoes with skin on. ?Nuts and nut products. ?Chocolate. If you regularly take a diuretic medicine, make sure to eat at least 1 or 2 servings of fruits or vegetables that are high in potassium each day. These include: ?Avocado. ?Banana. ?Dyer, prune, carrot, or tomato juice. ?Baked potato. [...] magnesium, fish oil, or vitamin B6. Take gwof-tmr-mfzpatv and prescription medicines only as told by [...] Casseroles. Pizza. Lasagna. Frozen meals. Potato chips. Syrian fries. The items listed above may not [...] provider. Document Revised: 03/29/2022 Document Reviewed: 03/29/2022 [employer] Patient Education 2022 ISC8. Follow Up Care 12/28/2022 12:57:40 With:Aram RUSSELL, Con Burdick, URL, URO Address: When:Within 6 Month(s) Comments:irasema FLAK & YAMILETH [facility] 06-19-2023 Evaluation note* Encounter Date Diagnosis Assessment Notes Treatment Notes Treatment Clinical Notes Dec, Iron deficiency anemia (ICD-10 - D50.9) Will proceed with EGD Will request recent lab work done at [place]. Dec,ERD (gastroesophageal reflux disease) (ICD-10 - K21.9)Patient to continue on Omeprazole 40mg Dec,iarrhea (ICD-10 - R19.7)Will proceed with Colonoscopy. Immediately Other Evaluation + Plan note Future Appointments Appointment Date:08/03/2023 10:00:00 AM Scheduled Provider:Con Chiu MD Location:[facility] Appointment Type:URO Office Visit [facility] evaluation + Plan note Future Appointments Appointment Date:08/03/2023 10:00:00 AM Scheduled Provider:Con Chiu MD Location:[facility] Appointment Type:URO Office Visit Diagnostic Tests Pending * Calculi Analysis Urinary 01/26/23 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) Hypothyroidism, unspecified type ([facility]) documented in this encounter [facility] noteNo assessment information availableLouis Stokes [facility] Work Phone: Evaluation note* Diagnosis Onset Date Resolution Status Anxiety acuteDepressionacuteDry scalpacuteHerniaacuteHypothyroidacuteIron deficiency anemiaacuteTachycardiaacute [facility] Work Phone: Evaluation note* Diagnosis Gastroesophageal reflux disease, unspecified whether esophagitis present- Primary Incisional hernia, without obstruction or gangrene Incisional hernia without mention of obstruction or gangrene documented in this encounter [facility]* Diagnosis Gastroesophageal reflux disease, unspecified whether esophagitis present documented in this encounter [facility] note* Diagnosis Onset Date Resolution Status Anxiety acuteDepressionacuteDry scalpacuteGERD (gastroesophageal reflux disease)acute HerniaacuteHTN (hypertension)acuteHypothyroidacuteIron deficiency anemiaacute Tachycardiaacute [facility] Work Phone: Evaluation note* Diagnosis Onset Date Resolution Status Anxiety acuteDepressionacuteDry scalpacuteGERD (gastroesophageal reflux disease)acute HerniaacuteHTN (hypertension)acuteHypothyroidacuteIron deficiency anemiaacute TachycardiaacuteHTN (hypertension)acuteInappropriate sinus tachycardiaacute Palpitationsnoneactive [facility] Work Phone: Evaluation note* Diagnosis Body mass index 40.0-44.9, adult ([facility])- Primary Body Mass Index 40.0-44.9, adult documented in this encounter [facility] note* Diagnosis Onset Date Resolution Status Anxiety acuteDepressionacuteDry scalpacuteGERD (gastroesophageal reflux disease)acute HerniaacuteHTN (hypertension)acuteHypothyroidacuteIron deficiency anemiaacute TachycardiaacuteHTN (hypertension)acuteInappropriate sinus tachycardiaacute PalpitationsnoneactiveAnxietyacuteDepressionacuteRight ankle injuryacuteRight ankle painacute [facility] Work Phone: Evaluation note* Diagnosis Morbid obesity due to excess calories (HCC)- Primary S/P bariatric surgery Bariatric surgery status Preoperative testing Preoperative examination, unspecified Snoring Other dyspnea and respiratory abnormality Other fatigue Morbid obesity with BMI of 40.0-44.9, adult (HCC) Morbid obesity documented in this encounter [facility]* Diagnosis Preoperative examination- Primary Preoperative examination, unspecified documented in this encounter [facility]* Diagnosis H/O gastric sleeve- Primary Obesity, Class III, BMI 40-49.9 (morbid obesity) (HCC) Morbid obesity Dietary counseling and surveillance Dietary surveillance and counseling documented in this encounter [facility] note* Diagnosis Morbid obesity due to excess calories (HCC) S/P bariatric surgery Bariatric surgery status Preoperative testing Preoperative examination, unspecified Snoring Other dyspnea and respiratory abnormality Other fatigue Morbid obesity with BMI of 40.0-44.9, adult (HCC) Morbid obesity documented in this encounter [facility]* Diagnosis Pain and swelling of right lower leg- Primary Ankle joint instability, right Pain of right calf documented in this encounter [facility]* Diagnosis 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 Moderate right ankle sprain, sequela documented in this encounter [facility]* Diagnosis Ankle joint instability, right- Primary Sinus tarsi syndrome of right ankle Posterior tibial tendinitis of right lower extremity documented in this encounter [facility]* Diagnosis Nicotine dependence in remission, unspecified nicotine product type- Primary documented in this encounter [facility]* Diagnosis Other specified disorders of synovium, right ankle and foot- Primary Sinus tarsitis of right foot documented in this encounter [facility]* Diagnosis Essential hypertension affecting in second trimester- Primary [facility] Diagnosis Pre-existing essential hypertension during in second trimester- Primary Advanced maternal age in multigravida, second trimester Hypothyroid in , antepartum [facility]* Diagnosis Essential hypertension affecting in second trimester- Primary [facility]* Diagnosis Sinus tarsitis of right foot- Primary Other specified disorders of synovium, right ankle and foot documented in this encounter [facility] HealthcareEvaluation note* Diagnosis Morbid obesity (HCC)- Primary Morbid obesity Hiatal hernia Diaphragmatic hernia without mention of obstruction or gangrene Preoperative examination Preoperative examination, unspecified documented in this encounter [facility] note* Diagnosis Preoperative examination- Primary Preoperative examination, unspecified Hiatal hernia Diaphragmatic hernia without mention of obstruction or gangrene Morbid obesity (HCC) Morbid obesity [facility]* Diagnosis Other specified disorders of synovium, right ankle and foot- Primary Sinus tarsitis of right foot Contracture of left ankle documented in this encounter [facility]* Diagnosis Preoperative examination- Primary Preoperative [...] 144/82 04/16/2024 149/79 documented in this encounter [facility] note* Diagnosis Preoperative examination- Primary Preoperative [...] (HCC) Morbid obesity documented in this encounter [facility] note* Diagnosis Preoperative examination- Primary Preoperative [...] Other postprocedural status documented in this encounter [facility] note* Diagnosis Preoperative examination- Primary Preoperative [...] acute postoperative pain [facility]* Diagnosis Preoperative examination- [...] aftercare following surgery documented [facility] this encounter [facility]* Diagnosis Preoperative examination- [...] acute postoperative pain documented in this encounter [facility] note* Diagnosis Preoperative examination- Primary Preoperative [...] aftercare following surgery documented in this encounter [facility] note* Diagnosis Onset Date Resolution Status Admit Date Abdominal pain acuteMay 2024 10:59amH/O gastric bypassacuteMay 2024 10:59am [facility] Work Phone: Evaluation note* Diagnosis Preoperative [...] aftercare following surgery documented in this encounter [facility] note* Diagnosis Preoperative examination- Primary Preoperative [...] acute postoperative pain documented in this encounter [facility]* Diagnosis Preoperative examination- [...] acute postoperative pain documented in this encounter [facility]* Diagnosis Preoperative examination- [...] aftercare following surgery documented in this encounter [facility]* Diagnosis Preoperative examination- Primary [...] NO SHOW- Primary documented in this encounter [facility]* Diagnosis Sinus tarsitis of right foot- [...] History appendectomySurgical Historyleft knee meniscusHospitalization Historysee above Immediately Other Hospital course Narrative No data available for this section [facility] Discharge instructions No data available for this section [facility] Additional Instructions DISCHARGE INSTRUCTIONS FOR [...] if you have any problems. -Office number [phone] Stokes [facility] Medical Center Work Phone: Hospital Discharge instructionsAmbulatory Orders* Referral to Dermatology Time Frame: 02/26/25, Location: None Selected * Referral to Psychiatry Time Frame: 02/26/25, Location: None Selected [facility] Work Phone: InstructionsNot on filedocumented in this encounter [facility] SystemInstructionsNot on filedocumented in this encounter [facility] SystemInstructionsNot on filedocumented in this encounter [facility] SystemInstructionsNot on filedocumented in this encounter [facility] SystemInstructionsNot on filedocumented in this encounter [facility] SystemInstructionsNot on filedocumented in this encounter [facility] SystemProgress note No data available for this section [facility] reason for visit Narrative* Consult, Test, Treat (Routine) - ClosedSpecialtyDiagnoses / ProceduresReferred By ContactReferred To Contact Diagnoses Preoperative examination Hiatal hernia Morbid obesity (HCC) Procedures REFER TO [facility] - PREOPERATIVE OPTIMIZATION OFFICE/[facility]PATIENT [facility] 60 MINUTES Khoa Silveira, IRRIGATION SERVICE TECHNICIAN.VETERINARIAN HELPER [address] [place] [address] Phone: tel: fax: Referral IDStatusReasonStart DateExpiration DateVisits RequestedVisits [id number] PCP [facility]ed [facility]erral [facility] Narrative* Consult, Test, Treat (Routine) - ClosedSpecialtyDiagnoses / ProceduresReferred By ContactReferred To Contact Diagnoses Preoperative examination Hiatal hernia Morbid obesity (HCC) Procedures CONSULT TO [facility] OFF[facility]PATIENT [facility] 60 MINUTES Khoa Silveira APRN.VETERINARIAN HELPER [address] [place] [address] Phone: tel: fax: Referral IDStatusReasonStart DateExpiration DateVisits RequestedVisits [id number] PCP Requested Referral [facility] Summary Purpose Family History Relationship Condition [...] second trimester Hypothyroid in , antepartum Procedures [facility] with or without consult Héctor Aguilar MD [address] [facility] HOSPITALFrancisco, [address] [place] [address] [facility] [address] [place] [address] Referral IDStatusReasonStart DateExpiration DateVisits RequestedVisits [id number] Review/[id number] / ProceduresReferred By ContactReferred To Contact Diagnoses Morbid obesity due to excess calories (HCC) S/P bariatric surgery Preoperative testing Snoring Other fatigue Morbid obesity with BMI of 40.0-44.9, adult (HCC) Procedures CONSULT TO SLEEP MEDICINE - ADULT OFFICE/OUTPATIENT [facility] 60 MINUTES Renetta Ruano MD [address] [place] [address] Referral IDStatusReasonStart DateExpiration DateVisits RequestedVisits [id number] Review PCP Requested Referral [id number] / ProceduresReferred By ContactReferred To ContactNEUROLOGICAL INSTITUTE Diagnoses Morbid obesity due to excess calories (HCC) S/P bariatric surgery Preoperative testing Snoring Other fatigue Morbid obesity with BMI of 40.0-44.9, adult ([facility]) Procedures HOME SLEEP APNEA TEST (HSAT) SLEEP STD AIRFLOW HRT RATE&O2 SAT EFFORT UNATT Renetta Ruano MD [address] [place] [address] [facility] [address] [place] [address] Referral IDStatusReasonStart DateExpiration DateVisits RequestedVisits [id number] Request Auto-Generated Referral [id number] / ProceduresReferred By ContactReferred To ContactGENERAL SURGERY Diagnoses Gastroesophageal reflux disease, unspecified whether esophagitis present Procedures CONSULT [facility]RIC[facility] OFFICE/OUTPATIENT [facility] 60 MINUTES Rocio Jeff MD [facility] [place] [address] Ayse Grissom MD [address] [place] [address] Referral IDStatusReasonParrish DateExpiration DateVisits RequestedVisits [id number]/18/202412/31/202411 Additional Source Comments INFORMATION SOURCE (unrecogn ized section and content) DATE CREATED AUTHOR 01/07/2023 [facility] DATE CREATED AUTHOR AUTHOR'S ORGANIZ ATION 10/19/2023 [facility] DATE CREATED AUTHOR AUTHOR'S ORGANIZ ATION 11/03/2023 [facility] DATE CREATED AUTHOR AUTHOR'S ORGANIZ ATION 01/06/2024 [facility] DATE CREATED AUTHOR AUTHOR'S ORGANIZ ATION 05/12/2024 [facility] DATE CREATED AUTHOR AUTHOR'S ORGANIZ ATION 02/21/2025 [facility] DATE CREATED AUTHOR AUTHOR'S ORGANIZ ATION 02/25/2025 [facility] DATE CREATED AUTHOR AUTHOR'S ORGANIZ ATION 06/13/2025 [facility] REASON FOR VISIT (unrecogniz ed section [...] NEW DDI PATIENT Self Rocio Jeff MD [address] [place] [address] Referral IDStatusReasonStart DateExpiration DateVisits RequestedVisits [id number]/26/202412/916334TytftlZthbemkbVdk PatientSpecialty Diagnoses / ProceduresReferred By ContactReferred To ContactGENERAL SURGERY Diagnoses Gastroesophageal reflux disease, unspecified whether esophagitis present Procedures CONSULT [facility]RIC[facility] OFFICE/OUTPATIENT NEW HIGH MDM 60 MINUTES Rocio Jeff MD [address] [place] [id number] Ayse Grissom MD [address] [place] [address] Referral IDStatusMollyasonStart DateExpiration DateVisits RequestedVisits [id number]/18/202412/211960XdmbgyOiwxutueLppqnmgakvv Patient SpecialtyDiagnoses / ProceduresReferred By ContactReferred To ContactGENERAL SURGERY Diagnoses follow up Procedures follow up Ayse Grissom MD [address] [place] [address] [facility] [address] [place] [address] Referral IDStatusReasonStart DateExpiration DateVisits RequestedVisits [id number] OON/Self Pay Override Clearance Not Met -Financial Clearance Bypassed /[id number] Updatept updateReasonCommentsNew PatientSpecialtyDiagnoses / ProceduresReferred By ContactReferred To Contact Diagnoses Gastro-esophageal reflux disease without esophagitis Procedures NEW PATIENT VISIT LEVEL 1 Ayse Grissom MD [address] [place] [address] [facility] [place] [address] Referral IDStatusResaint [facility] hospital–barry roadStboardman DateExpiration DateVisits RequestedVisits [id number] OON/Self Pay Override [id number] EducationAssessmentSpecialty Diagnoses / ProceduresReferred By ContactReferred To Contact Diagnoses Gastro-esophageal reflux disease without esophagitis Procedures NEW PATIENT VISIT LEVEL 1 Ayse Grissom MD [address] [place] [address] [facility] [place] [address] SpecialtyDiagnoses / ProceduresReferred By ContactReferred To ContactXR IMAGING Diagnoses Morbid obesity due to excess calories (HCC) [E66.01] S/P bariatric surgery [Z98.84] Preoperative testing [Z01.818] Snoring [R06.83] Other fatigue [R53.83] Morbid obesity with BMI of 40.0-44.9, adult (HCC) [E66.01, Z68.41] Procedures XR CHEST 2V FRONTAL/LAT Renetta Ruano MD [address] [place] [address] [facility] [place] [address] Referral IDStatusReasonStboardman DateExpiration DateVisits RequestedVisits [id number] Request OON/Self Pay Override /[id number]QsoryjhmDzmhDhrwrpWgqvlbxpYtga CallousesRt callousReasonCommentsResultsReasonCommentsAdvanced Maternal Age Chronic HypertensionHypothyroidismReasonCommentsFollow-up2wk rt sinus tarsi wnqupRqlllvZceqogqj40/06/2025 (pseudo)MflggvYhlgyqoc58.25.25 CureOpen Complex AWR 4 hours los [address] Grissom Hiatal hernia/Lap Gastric Sleeve 3 hoursReasonCommentsFollow-upRt ankle capsulitisReasonCommentsApproval call ReasonCommentsPost-Op VisitReasonCommentsPost Op CallReasonCommentsPost OpReason CommentsAnkle Pain Patient Care team informatio n (unrecognized section and content) Personnel Name: ELISABETH BECKMAN CNP [address]: [address] [place] [address], [address] [place], [place] [address] Telecom: Team Status: Active Member Role Status Dates Yandel More , [facility]- Primary Care Provider Active Team Status: Inactive Member Role Status Dates Denys Gallego MD Attending Provider Active Yandel More WINDOWS SECURITY ENGINEER-BCPrinortheast alabama regional medical centery Care ProviderActive Team Status: Inactive Member Role Status Dates Yandel More , WINDOWS SECURITY ENGINEER-BC Primary Care Provider Active Start: December 12, 2023 End: December 11orefrank Amos ProviderActiveStart: December 12, 2023 End: December 12, 2023 Team Status: Inactive Member Role Status Dates Yandel More , WINDOWS SECURITY ENGINEER-BC Primary Care Provider Active Start: December 12, 2023 End: December 11Clyde Huggins ProviderActiveStart: December 12, 2023 End: December 12, 2023 Team Status: Inactive Member Role Status Dates Yandel More , WINDOWS SECURITY ENGINEER- Primary Care Provider Active Start: February 28, 2024 End: February 28, 2024Elisabeth Beckman APRN STRIKE PLATE ATTACHER-CAttending ProviderActive Start: February 28, 2024 End: February 28, 2024Team MemberRelationshipSpecialtyStart DateEnd Date Adrian Kerr DO [address] [place] [address] [place] [address] (work) ReferringOb/Gyn03/16/24Team MemberRelationshipSpecialtyStart DateEnd Date Adrian Kerr R, DO [address] [place] [address] ReferringOb/Gyn03/16/24Team MemberRelationshipSpecialtyStart DateEnd Date Adrian Kerr, DO [address] [place], [facility]11 ReferringOb/Gyn03/16/24 Team Status: Inactive Member Role Status Dates Yandel More , WINDOWS SECURITY ENGINEER-BC Primary Care Provider Active Start: May 10, 2024 End: May 10, 2024Georsuzanne Quiñones , MDAttending ProviderActive Start: May 10, 2024 End: May 10, 2024Elisabeth Beckman APRN STRIKE PLATE ATTACHER-CReferring ProviderActive Start: May 10, 2024 End: May 10, 2024 Team Status: Active Member Role Status Dates Yandel More , WINDOWS SECURITY ENGINEER-BC Primary Care Provider Active Start: May 10, 2024 Felipe Quiñones , MDAttending ProviderActiveStart: May 10, 2024 Team Status: Inactive Member Role Status Dates Yandel More , WINDOWS SECURITY ENGINEER-BC Primary Care Provider Active Start: May 10, 2024 End: May 10, 2024Georsuzanne Quiñones , MDAttending ProviderActive Start: May 10, 2024 End: May 10, 2024Team MemberRelationshipSpecialtyStart DateEnd Date Adrian Kerr, DO [address] [place] [address] ReferringOb/Gyn03/16/24Team MemberRelationshipSpecialtyStart DateEnd Date Adrian Kerr, DO [address] [place] [address] ReferringOb/Gyn8 Team Status: Active Member Role Status Dates Elisabeth Beckman APRN STRIKE PLATE ATTACHER-C Primary Care Provider Active Team Status: Inactive Member Role Status Dates Elisabeth Beckman APRN STRIKE PLATE ATTACHER-C Primary Care Provider, Attending Provider Active Start: May 24, 2024 End: May 24, 2024Team MemberRelationshipSpecialtyStart DateEnd Date Adrian Kerr R, DO [address] [facility] [place] [address] [place] [address] ReferringOb/Gyn8Team MemberRelationshipSpecialtyStart DateEnd Date Adrian Kerr, DO [address] [facility] [place] [address] [place] [address] ReferringOb/Gyn03/16/24Team MemberRelationshipSpecialtyStart DateEnd Date Adrian Kerr, DO [address] [facility] [place] [address] [place] [address] ReferringOb/Gyn03/16/24Team MemberRelationshipSpecialtyStart DateEnd Date Adrian Kerr R, DO [address] [place] [address] [address] [place] [address] ReferringOb/Gyn8 Team Status: Active Member Role Status Dates Elisabeth Beckman APRN STRIKE PLATE ATTACHER-C Primary Care Provider, Attending Provider Active Start: June 15, 2024 Team Status: Inactive Member Role Status Dates Elisabeth Beckman APRN STRIKE PLATE ATTACHER-C Primary Care Provider, Attending Provider Active Start: June 19, 2024 End: June 19, 2024Team MemberRelationshipSpecialtyStart DateEnd Date Elisabeth Beckman NP [address] [place] [address] [place] [address] PCP - GeneralFamily Boqwmray34/15/24Team MemberRelationshipSpecialtyStart Date End Date Elisabeth Beckman NP [address] [facility] [place] [address] PCP - GeneralFamily Acgrqkne32/15/24Team MemberRelationshipSpecialtyStart Date End Date Elisabeth Beckman NP [address] [facility] [place] [address] PCP - GeneralFamily Qdxpfnkz91/15/24 Team Status: Inactive Member Role Status Dates Elisabeth Beckman APRN STRIKE PLATE ATTACHER-C Primary Care Provider, Attending Provider Active Start: August 15, 2024 End: August 15, 2024Team MemberRelationshipSpecialtyStart DateEnd Date Elisabeth Beckman NP [address] [facility] [address] PCP - GeneralFamily Iauwiefc82/15/24Team MemberRelationshipSpecialtyStart Date End Date Adrian Kerr DO [address] [facility] [place] [address] [place] [address] ReferringOb/Gyn03/16/24Team MemberRelationshipSpecialtyStart DateEnd Date Adrian Kerr DO [address] [facility] [place] [address] [place] [address] ReferringOb/Gyn03/16/24Team MemberRelationshipSpecialtyStart DateEnd Date Elisabeth Beckman NP [address] [facility] [place] [address] PCP - GeneralFamily Eyfndnbf28/15/24Team MemberRelationshipSpecialtyStart Date End Date Elisabeth Beckman NP [address] [place] [address] [place] [address] PCP - GeneralFamily Lucsotnj37/15/24 Team Status: Inactive Member Role Status Dates Elisabeth Beckman APRN STRIKE PLATE ATTACHER-C Primary Care Provider, Attending Provider Active Start: September 14, 2024 End: September 14, 2024Team MemberRelationshipSpecialtyStart DateEnd Date No Pcp, [place] [address] PCP - GeneralFamily Medicine10/18/23Team MemberRelationshipSpecialtyStart DateEnd Date No Pcp, [place] [address] PCP - GeneralFamily Medicine10/18/23Team MemberRelationshipSpecialtyStart DateEnd Date Elisabeth Beckman NP [address] [place] [address] [place] [address] PCP - GeneralFamily Jknjxlbw56/15/24Team MemberRelationshipSpecialtyStart Date End Date Adrian Kerr DO [address] [place] [address] [place] [address] ReferringOb/Gyn03/16/24Team MemberRelationshipSpecialtyStart DateEnd Date Adrian Kerr, DO [address] [place] [address] [address] [place] [address] ReferringOb/Gyn03/16/24Team MemberRelationshipSpecialtyStart DateEnd Date Elisabeth Beckman NP [address] [place] [address] [place] [address] PCP - GeneralFamily Gokktcpk15/15/24Team MemberRelationshipSpecialtyStart Date End Date Elisabeth Beckman NP [address] [facility] [address] PCP - GeneralFamily Arzdklbf29/15/24Team MemberRelationshipSpecialtyStart Date End Date Elisabeth Beckman NP [address] [facility] [address] PCP - GeneralFamily Hkaliwkl85/15/24Team MemberRelationshipSpecialtyStart Date End Date Elisabeth Beckman NP [address] [facility] [place] [address] PCP - GeneralNurse Practitioner10/23/24 Adrian Kerr, [address] [place] [address], [place] [address] ReferringOb/Gyn03/16/24Team MemberRelationshipSpecialtyStart DateEnd Date Elisabeth Beckman NP [address] [facility] [place] [address] PCP - GeneralNurse Practitioner10/23/24 Adrian Kerr DO [address] [place], [place] [address], [place] [address] ReferringOb/Gyn03/16/24Team MemberRelationshipSpecialtyStart DateEnd Date Elisabeth Beckman NP [address] [facility] [place] [address] PCP - GeneralNurse Practitioner10/23/24 Adrian Kerr, DO [address] [place] [address] ReferringOb/Gyn03/16/24Team MemberRelationshipSpecialtyStart DateEnd Date Elisabeth Beckman NP [address] [facility] [place] [address] PCP - GeneralNurse Practitioner10/23/24 Adrian Kerr, DO [address] [place], [facility]11 ReferringOb/Gyn03/16/24Team MemberRelationshipSpecialtyStart DateEnd Date Elisabeth Beckman NP [address] [facility], [facility]11 PCP - GeneralNurse Practitioner10/23/24 Adrian Kerr DO [address] [place], [facility]11 ReferringOb/Gyn03/16/24Team MemberRelationshipSpecialtyStart DateEnd Date Elisabeth Beckman NP [address] [place] [address] PCP - GeneralNurse Practitioner10/23/24 Adrian Kerr DO [address] [place] [address] ReferringOb/Gyn03/16/24Team MemberRelationshipSpecialtyStart DateEnd Date Elisabeth Beckman NP [address] [facility] [place] [address] PCP - GeneralNurse Practitioner10/23/24 Adrian Kerr DO [address] [place] [address] ReferringOb/Gyn03/16/24Team MemberRelationshipSpecialtyStart DateEnd Date Elisabeth Beckman NP [address] [facility] [place] [address] PCP - GeneralNurse Practitioner10/23/24 Adrian Kerr DO [employer] [place] [address] ReferringOb/Gyn03/16/24 Team Status: Active Member Role Status Dates Elisabeth Beckman APRN STRIKE PLATE ATTACHER-C Primary Care Provider, Attending Provider Active Start: November 06, 2024 Team Status: Inactive Member Role Status Dates Elisabeth Beckman APRN STRIKE PLATE ATTACHER-C Primary Care Provider, Attending Provider Active Start: December 20, 2024 End: December 20, 2024Team MemberRelationshipSpecialtyStart DateEnd Date Elisabeth Beckman NP [address] [facility] [place] [address] PCP - GeneralNurse Practitioner10/23/24 Adrian Kerr DO [employer] [place] [address] ReferringOb/Gyn03/16/24Team MemberRelationshipSpecialtyStart DateEnd Date Elisabeth Beckman NP [address] [facility] [place] [address] PCP - GeneralNurse Practitioner10/23/24 Adrian Kerr DO [address] [place], [place] [address]e [facility] [place] [address] ReferringOb/Gyn03/16/24Team MemberRelationshipSpecialtyStart DateEnd Date Elisabeth Beckman NP [address] [facility] [place] [address] PCP - GeneralNurse Practitioner10/23/24 Adrian Kerr DO [address] [place] [address] [place], [facility]11 ReferringOb/Gyn03/16/24Team MemberRelationshipSpecialtyStart DateEnd Date Elisabeth Beckman NP [address] [facility] [place] [address] PCP - GeneralNurse Practitioner10/23/24 Adrian Kerr DO [address] [place] [address] [place], [facility]11 ReferringOb/Gyn03/16/24Team MemberRelationshipSpecialtyStart DateEnd Date Elisabeth Beckman NP [address] [facility] [place] [address] PCP - GeneralFamily Eyeoqqfj93/15/24 Team Status: Inactive Member Role Status Dates Elisabeth Beckman APRN STRIKE PLATE ATTACHER-C Primary Care Provider Active Start: December 20, 2024 End: December 20, 2024Elisabeth Beckman APRN STRIKE PLATE ATTACHER-CAttending ProviderActiveStart: December 20, 2024 End: December 20, 2024 Team Status: Inactive Member Role Status Dates Elisabeth Beckman APRN STRIKE PLATE ATTACHER-C Primary Care Provider Active Start: February 26, 2025 End: February 26, 2025Elisabeth BRENDA Beckman STRIKE PLATE ATTACHER-CAttenghulam ProviderActive Start: February 26, 2025 End: February 26, 2025Team MemberRelationshipSpecialtyStart DateEnd Date Jaimiegokul Elisabeth Sears NP [facility] [place] [address] [facility] - [facility] Xwqetqnz76/15/24Team MemberRelationshipSpecialtyStart Date End Date Elisabeth Beckman NP [facility] [place] [address] PCP - [facility] Sasnwxnj08/15/24 Goals (unrecognized section and content) Goals may be documented in a n alternate section Source Comments (unrecognize d section and content) In the event this informatio n is protected by the Federal Confidentiality of Alcohol and Drug Abuse Patient Records regulations: The Federal rules restrict any use of the information to criminally investigate or prosecute any alcohol or drug abuse patient.[facility] the event this information is protected by the Federal Confidentiality of Alcohol and Drug Abuse Patient Records regulations: The Federal rules restrict any use of the information to criminally investigate or prosecute any alcohol or drug abuse patient.[facility] HospitalIn the event this information is protected by the Federal Confidentiality of Alcohol and Drug Abuse Patient Records regulations: The Federal rules restrict any use of the information to criminally investigate or prosecute any alcohol or drug abuse patient.[facility] HospitalIn the event this information is protected by the Federal Confidentiality of Alcohol and Drug Abuse Patient Records regulations: The Federal rules restrict any use of the information to criminally investigate or prosecute any alcohol or drug abuse patient.[facility] HospitalIn the event this information is protected by the Federal Confidentiality of Alcohol and Drug Abuse Patient Records regulations: The Federal rules restrict any use of the information to criminally investigate or prosecute any alcohol or drug abuse patient.[facility] HospitalIn the event this information is protected by the Federal Confidentiality of Alcohol and Drug Abuse Patient Records regulations: The Federal rules restrict any use of the information to criminally investigate or prosecute any alcohol or drug abuse patient.[facility] HospitalIn the event this information is protected by the Federal Confidentiality of Alcohol and Drug Abuse Patient Records regulations: The Federal rules restrict any use of the information to criminally investigate or prosecute any alcohol or drug abuse patient.[facility] HospitalIn the event this information is protected by the Federal Confidentiality of Alcohol and Drug Abuse Patient Records regulations: The Federal rules restrict any use of the information to criminally investigate or prosecute any alcohol or drug abuse patient.[facility] HospitalIn the event this information is protected by the Federal Confidentiality of Alcohol and Drug Abuse Patient Records regulations: The Federal rules restrict any use of the information to criminally investigate or prosecute any alcohol or drug abuse patient.[facility] HospitalIn the event this information is protected by the Federal Confidentiality of Alcohol and Drug Abuse Patient Records regulations: The Federal rules restrict any use of the information to criminally investigate or prosecute any alcohol or drug abuse patient.[facility] HospitalIn the event this information is protected by the Federal Confidentiality of Alcohol and Drug Abuse Patient Records regulations: The Federal rules restrict any use of the information to criminally investigate or prosecute any alcohol or drug abuse patient.[facility] HospitalIn the event this information is protected by the Federal Confidentiality of Alcohol and Drug Abuse Patient Records regulations: The Federal rules restrict any use of the information to criminally investigate or prosecute any alcohol or drug abuse patient.[facility] HospitalIn the event this information is protected by the Federal Confidentiality of Alcohol and Drug Abuse Patient Records regulations: The Federal rules restrict any use of the information to criminally investigate or prosecute any alcohol or drug abuse patient.[facility] HospitalIn the event this information is protected by the Federal Confidentiality of Alcohol and Drug Abuse Patient Records regulations: The Federal rules restrict any use of the information to criminally investigate or prosecute any alcohol or drug abuse patient.[facility] HospitalIn the event this information is protected by the Federal Confidentiality of Alcohol and Drug Abuse Patient Records regulations: The Federal rules restrict any use of the information to criminally investigate or prosecute any alcohol or drug abuse patient.[facility] HospitalIn the event this information is protected by the Federal Confidentiality of Alcohol and Drug Abuse Patient Records regulations: The Federal rules restrict any use of the information to criminally investigate or prosecute any alcohol or drug abuse patient.[facility] HospitalIn the event this information is protected by the Federal Confidentiality of Alcohol and Drug Abuse Patient Records regulations: The Federal rules restrict any use of the information to criminally investigate or prosecute any alcohol or drug abuse patient.[facility] HospitalIn the event this information is protected by the Federal Confidentiality of Alcohol and Drug Abuse Patient Records regulations: The Federal rules restrict any use of the information to criminally investigate or prosecute any alcohol or drug abuse patient.[facility] HospitalIn the event this information is protected by the Federal Confidentiality of Alcohol and Drug Abuse Patient Records regulations: The Federal rules restrict any use of the information to criminally investigate or prosecute any alcohol or drug abuse patient.[facility] HospitalIn the event this information is protected by the Federal Confidentiality of Alcohol and Drug Abuse Patient Records regulations: The Federal rules restrict any use of the information to criminally investigate or prosecute any alcohol or drug abuse patient.[facility] HospitalIn the event this information is protected by the Federal Confidentiality of Alcohol and Drug Abuse Patient Records regulations: The Federal rules restrict any use of the information to criminally investigate or prosecute any alcohol or drug abuse patient.[facility] HospitalIn the event this information is protected by the Federal Confidentiality of Alcohol and Drug Abuse Patient Records regulations: The Federal rules restrict any use of the information to criminally investigate or prosecute any alcohol or drug abuse patient.[facility] HospitalIn the event this information is protected by the Federal Confidentiality of Alcohol and Drug Abuse Patient Records regulations: The Federal rules restrict any use of the information to criminally investigate or prosecute any alcohol or drug abuse patient.[facility] HospitalIn the event this information is protected by the Federal Confidentiality of Alcohol and Drug Abuse Patient Records regulations: The Federal rules restrict any use of the information to criminally investigate or prosecute any alcohol or drug abuse patient.[facility] HospitalIn the event this information is protected by the Federal Confidentiality of Alcohol and Drug Abuse Patient Records regulations: The Federal rules restrict any use of the information to criminally investigate or prosecute any alcohol or drug abuse patient.[facility] HospitalIn the event this information is protected by the Federal Confidentiality of Alcohol and Drug Abuse Patient Records regulations: The Federal rules restrict any use of the information to criminally investigate or prosecute any alcohol or drug abuse patient.[facility] HospitalIn the event this information is protected by the Federal Confidentiality of Alcohol and Drug Abuse Patient Records regulations: The Federal rules restrict any use of the information to criminally investigate or prosecute any alcohol or drug abuse patient.[facility] HospitalIn the event this information is protected by the Federal Confidentiality of Alcohol and Drug Abuse Patient Records regulations: The Federal rules restrict any use of the information to criminally investigate or prosecute any alcohol or drug abuse patient.[facility] HospitalIn the event this information is protected by the Federal Confidentiality of Alcohol and Drug Abuse Patient Records regulations: The Federal rules restrict any use of the information to criminally investigate or prosecute any alcohol or drug abuse patient.[facility] HospitalIn the event this information is protected by the Federal Confidentiality of Alcohol and Drug Abuse Patient Records regulations: The Federal rules restrict any use of the information to criminally investigate or prosecute any alcohol or drug abuse patient.[facility] HospitalIn the event this information is protected by the Federal Confidentiality of Alcohol and Drug Abuse Patient Records regulations: The Federal rules restrict any use of the information to criminally investigate or prosecute any alcohol or drug abuse patient.[facility] HospitalIn the event this information is protected by the Federal Confidentiality of Alcohol and Drug Abuse Patient Records regulations: The Federal rules restrict any use of the information to criminally investigate or prosecute any alcohol or drug abuse patient.[facility] HospitalIn the event this information is protected by the Federal Confidentiality of Alcohol and Drug Abuse Patient Records regulations: The Federal rules restrict any use of the information to criminally investigate or prosecute any alcohol or drug abuse patient.[facility] FOR RECORDS PERTAINING TO PATIENTS WHO [...] BE BASED ON THE PRIMARY CLINICAL RECORDS. [facility] [employer] [facility]. provides no warranty or guarantee of the accuracy or completeness of information in this document.
--- OUTSIDE RECORDS SUMMARY | 2025-06-30 11:10 | XMS_ITS | Clinical Summary ---
Author Organization [facility] Address [address] [place] [address] Care Team Providers Care Payment Processor Name Role Phone Elisabeth Beckman STOCK HANGER Primary Care Provider Allergies Active AllergyReactionsCriticalityNoted DateCommentsPenicillin GUnknown 01/04/2023enicillinsAnaphylaxis,VramgqxFixt33/28/2023 Other Reaction(s): throat swelling and hives Nfbvxxkjev82/06/2023 Other Reaction(s): seizures Medications MedicationSigDispense QuantityRefillsLast FilledStart DateEnd DateStatus omeprazole (PriLOSEC) [address] capsule Take 40 mg by mouth in the morning. Take before meals.Active levothyroxine (Synthroid, Levoxyl) 25 MCG tablet Indications:Other specified hypothyroidismTAKE 1 TABLET BY MOUTH IN THE MORNING BEFORE MEALS WITH the current dosage 30 tablet ctive amLODIPine (Norvasc) 10 MG tablet Indications:Hypertension affecting in second trimester ([facility])TAKE 1 TABLET BY MOUTH IN THE MORNING 30 tablet ctive buPROPion XL (Wellbutrin XL) 150 MG 24 hr tablet Indications:Anxiety with depressionTAKE 1 TABLET BY MOUTH IN THE MORNING DO NOT CRUSH, CHEW, OR SPLIT 30 tablet ctive fluocinonide (Lidex) 0.05 % external solution APPLY TO THE AFFECTED AREA(S) topically EVERY OTHER DAY FOR 30 DAYS06/11/2024 Active ibuprofen 800 MG tablet 03/13/2024ctive venlafaxine XR (Effexor XR) 37.5 MG 24 hr capsule 5Active metoprolol succinate XL (Toprol-XL) 100 MG 24 hr tablet Indications:Hypertension affecting in second trimester ([facility])TAKE 1 TABLET BY MOUTH IN THE MORNING 30 tablet 1105Active levothyroxine (Synthroid, Levoxyl) 137 MCG tablet Indications:Elevated TSHTAKE 1 TABLET BY MOUTH DAILY IN THE MORNING BEFORE BREAKFAST 6 tablet 5Active Active Problems ProblemNoted DateDiagnosed DateAnxiety with oamoolbtcj88/18/2024Screening, , for anatomic survey ([facility])08/18/2023 Resolved Problems ProblemNoted DateDiagnosed DateResolved DateSecond trimester ([facility]) Encounters DateTypeDepartmentCare BuzxAkqbwiwueuy51/27/2025Refill [facility] [address] [place] [address] Kassandra Alfaro PA Elevated TSH04/16/2025Refill [facility] [address] [place] [address] Kassandra Alfaro PA Elevated TSH04/16/2025Refill [facility] [address] [place] [address] Rosamaria Conrad MA Elevated TSHfrom Last 3 Months Family History Medical HistoryRelationNameCommentsHeart diseaseFatherDiabetesMotherPam HypertensionMotherPamRelationNameStatusCommentsFatherMotherPam Social History Tobacco UseTypesPacks/DayYears UsedDateSmoking Tobacco: FormerSmokeless Tobacco: Never Tobacco Cessation:Counseling Given: Yes Comments:Vape Alcohol UseStandard Drinks/WeekCommentsNot Currently0 (1 standard drink = 0.6 oz pure alcohol)Socially/rareAUDIT-CAnswerDate RecordedQ1: How often do you have a drink containing alcohol?Monthly or less07/20/2023Q2: How many drinks containing alcohol do you have on a typical day when you are drinking?1 or Q3: How often do you have six or more drinks on one occasion?Never3 CommentsUnknownSex and Gender InformationValueDate RecordedSex Assigned at Slradr4103/14/2024 1:39 PM EDTLegal KfnCwkhic65/15/2023 6:43 PM EDTGender Identity Euhwgu8203/14/2024 1:39 PM EDTSexual OrientationNot on file Last Filed Vital Signs Vital SignReadingTime TakenCommentsBlood Pirfpltr535/7803 9:53 AM EDT Rvgmw591810/18/2024 9:53 AM EDTTemperature--Respiratory Bwjb892502/25/2025 10:25 AM EDTOxygen Saturation--Inhaled Oxygen Concentration--Qsdeks404 kg (315 lb) 02/25/2025 10:25 AM ZWXSxfvpy558.8 cm (5' 10 )02/25/2025 10:25 AM EDTBody Mass Index45. 10:25 AM EDT Plan of Treatment Not on file Goals GoalPatient Goal TypeAssociated ProblemsRecent ProgressPatient-Stated?Author Reminders Care PlanOB RemindersNoOpen Scheduling, Background Additional Health Concerns Active ProblemsNoted DateDiagnosed DateOB Yxkstuvfi32/30/2023 Insurance [facility] Address: [facility] [id number] [place] [address] Care Teams Team MemberRelationshipSpecialtyStart DateEnd Date Elisabeth Beckman NP [facility] [place] [address] PCP - GeneralFamily Lzakvzkc92/15/24
--- OUTSIDE RECORDS SUMMARY | 2025-06-30 11:10 | XMS_ITS | Clinical Summary ---
Author Organization [facility] Address [address] [place] [address] Care Team Providers Care Health Companion Name Role Phone Adrian Miguel DO Unavailable [phone] Elisabeth Beckman INSIGHTS STRATEGIST Primary Care Provider Allergies Active AllergyReactionsCriticalityNoted DateCommentsPenicillinsAnaphylaxis,Cough ,Hives,Itching,Rash,Shortness of Breath,Swelling,CqtrixcSips38/28/2023 Other Reaction(s): throat swelling and hives YnoqlsrhgxKiosjsovijr31/06/2023 Other Reaction(s): seizures Medications * This document contains information received from the source organization and may not represent a complete record from that organization. MedicationSigDispense QuantityRefillsLast FilledStart DateEnd DateStatus amLODIPine (NORVASC) 10 mg tablet Take 10 mg by mouth.09/24/2022ctive fluocinonide (LIDEX) 0.05 % external solution APPLY TO THE AFFECTED AREA(S) topically DAILYActive levothyroxine (SYNTHROID) 137 mcg tablet TAKE 1 TABLET BY MOUTH IN THE MORNING BEFORE MEALS08/23/2022ctive melatonin 1 mg chew Take by mouth.Active metoprolol succinate ER (TOPROL XL) 100 mg Take 100 mg by mouth.09/09/2022ctive omeprazole (PRILOSEC) 40 mg capsule Take 40 mg by mouth.01/26/2023ctive ondansetron orally disintegrating (ZOFRAN ODT) 4 mg disintegrating tablet 1 (one) time each day at the same time08/14/2023Active vit B-comp w-Fe,Ca,FA<1mg (IRON-VITAMINS ORAL) Active DULoxetine (CYMBALTA) 30 mg capsule Take 1 capsule by mouth once daily.5Active metFORMIN (GLUCOPHAGE) 500 mg tablet Take 1 tablet by mouth every 12 hours.5Active acetaminophen (TYLENOL EXTRA STRENGTH) 500 mg tablet Take 2 tablets by mouth every 6 hours as needed for pain.11/27/2024tive gabapentin (NEURONTIN) 300 mg capsule Indications:Acute postoperative painTake 1 capsule by mouth two times a day for 14 days. 28 capsule 5Active traMADol (ULTRAM) 50 mg tablet Take 50 mg by mouth two times a day as needed.12/20/2024tive gabapentin (NEURONTIN) 300 mg capsule Indications:Acute postoperative painTake 1 capsule by mouth two times a day for 30 days. 60 capsule 5Active Active Problems ProblemNoted DateDiagnosed ExutIuggngtlalu35/29/1684Zdawwvltjuahrqgnb98/29/2025 Postoperative cellulitis of surgical wound11/27/2024S/P hernia evlgql1811/26/2024 Morbid obesity with BMI of 45.0-49.9, adult5Acute postoperative pain 11/26/2024Ventral hernia without obstruction or exctkdre83/25/2025GERD (gastroesophageal reflux disease)11/06/2024 Assessment & Plan (11/06/2024 10:43 AM EDT): Symptoms controlled with PPI Klkyubzziuln34/08/2025 Assessment & Plan (11/06/2024 10:43 AM EDT): Stable, complaint on AMLODIPINE 10 MG TABLET Take 10 mg by mouth. METOPROLOL SUCCINATE ER 100 MG TABLET,EXTENDED RELEASE 24 HR Take 100 mg by mouth. Follows with PCP. Last 3 Encounter BP Readings: Date: BP: 11/06/2024 139/88 04/24/2024 144/82 04/16/2024 149/79 Psoriatic pxsadnhkd02/08/2025 Assessment & Plan (11/06/2024 10:46 AM EDT): Managed with NSAIDS Inappropriate sinus dgewbhlbygx82/08/2025 Assessment & Plan (11/06/2024 10:44 AM EDT): Managed with metoprolol Insulin awxsdypiji49/08/2025 Assessment & Plan (11/06/2024 10:46 AM EDT): Managed with Metformin Class 3 severe obesity without serious comorbidity with body mass index (BMI) of 40.0 to 44.9 in adult11/06/2024 Assessment & Plan (11/06/2024 11:44 AM EDT): Body mass index is 45.52 kg/m??. Wwbzspxqoiygdi07/25/2023 Assessment & Plan (11/06/2024 10:44 AM EDT): Stable on Synthroid Iron deficiency vcjwhf1310/20/2022 Assessment & Plan (11/06/2024 10:45 AM EDT): Hemoglobin (g/dL) Date Value 11/06/2024 14.5 Hematocrit (%) Date Value 11/06/2024 43.4 WBC (k/uL) Date Value 11/06/2024 11.25 Stable Family History Medical HistoryRelationCommentsAnesthesia ProblemsNo Family History Social History Tobacco UseTypesPacks/DayYears UsedDateSmoking Tobacco: NeverSmokeless Tobacco: Current Tobacco Cessation:Ready to Q uit: Not Asked; Counseling Given: Not Answered Comments:Vape Alcohol UseStandard Drinks/WeekCommentsNot Currently0 (1 standard drink = 0.6 oz pure alcohol)[facility] UtilitiesAnswerDate RecordedIn the past 12 months has the [place], gas, oil, or water Cymbet threatened to shut off services in your home?No11/26/2024PHQ-2AnswerDate RecordedPHQ-2 qilnx787Hunger Vital Sign AnswerDate RecordedWithin the past 12 months, you worried that your food would run out before you got the money to buymore.Never true11/26/2024Within the past 12 months, the food you bought just didn't last and you didn't have money to get more.Never true11/26/2024PRAPARE - TransportationAnswerDate RecordedIn the past 12 months, has lack of transportation kept you from medical appointments or from getting medications?No11/26/2024In the past 12 months, has lack of transportation kept you from meetings, work, or from getting things needed for daily living?11/26/2024Housing Stability Vital SignAnswerDate RecordedIn the last 12 months, was there a time when you were not able to pay the mortgage or rent on time?No11/26/2024Number of Times Moved in the Last YearNot on file 11/26/2024t any time in the past 12 months, were you homeless or living in a fdc (including now)?No11/26/2024rea Deprivation IndexAnswerDate Recorded National Score (1-100), lower number is lower fydd7214State Score (1- 10), lower number is lower hqnl465ata from: https://www.neighborhoodatlas.medicine.[facility].edu/. Last address used for xgrggebhsdq[address]04/16/2024CommentsUnknownSex and Gender InformationValueDate RecordedSex Assigned at UmcleRgajbi62/20/2024 11:25 PM EDT Legal WxnCwbucz84/16/2024 2:59 PM EDTGender SjmlbmvlIczezj86/20/2024 11:25 PM EDTSexual GqorgxlbsteHcvvmosk26/20/2024 11:25 PM EDT Last Filed Vital Signs Vital SignReadingTime TakenCommentsBlood Celiunxt625/7305 10:59 AM EDT Badve822612/28/2024 10:59 AM YYTYdmfmxrhzcx47.7 ??C (98.1 ??F)12/28/2024 10:59 AM EDTRespiratory Jmbp769411/27/2024 9:24 AM EDTOxygen Ntonhsthos427%11/27/2024 9:26 AM EDTInhaled Oxygen Concentration--Nkecgm950.5 kg (290 lb)12/28/2024 10:59 AM OKEAxldkl147.8 cm (5' 10 )12/28/2024 10:59 AM EDTBody Mass Index41.61012/28/2024 10:59 AM EDT Plan of Treatment Health MaintenanceDue DateLast DoneCommentsAnnual PCP Team Chronic Disease Visit 2004HIV Niycbmspy19/03/2005Hepatitis C Lwwxqcfbi41/03/2005DTaP,Tdap,Td Vaccine (1 - Tdap)2005Hepatitis B Vaccine (1 of 3 - 19+ 3-dose series) 2005Cervical Cancer Rjamrikjy27/03/2008HPV Vaccine (1 - 3-dose SCDM series)2013Covid-19 Vaccine (1 - season)2025Influenza Vaccine (#1)/nxiety Pnshsgmje48/epression Bknmlqzhc72 Medical Devices ImplantedTypeAreaManufacturerDevice IdentifierShelf Expiration DateModel / Serial / LotMesh Prolene Square Flat [id number] Surgical Knit Nonabsorbable Nonreactive - [id number] [facility] [place]: AbdomenAQIULES AND [id number]/30/2029PML / / [id number] Insurance Care Teams Team MemberRelationshipSpecialtyStart DateEnd Date Elisabeth Beckman NP [address] [place] [address] PCP - GeneralNurse Practitioner10/23/24 Adrian Miguel DO [address] [place] [address] [place] [address] ReferringOb/Gyn03/16/24
--- OUTSIDE RECORDS SUMMARY | 2025-06-30 11:10 | XMS_ITS | Patient Health Record ---
Author Organization [facility] Address [address] [place] [address] Care Team Providers Care Rn Dermatology Name Role Phone Dr. Liban Reynoso Primary Care Provider Fani Mcintosh Unavailable Unavailable Aneudy Marte Unavailable [phone] Ilda Conway Unavailable [phone] Jennifer Ivory Unavailable [phone] Reason For Referral Reason SCHEDULED 07/03 PSY CHIATRY Diagnosis 1 Attention and concen tration deficit (R41.840) Diagnosis 2 Major depressive dis order, recurrent severe without psychotic features (F33.2) Referral Organization Referrals Referring Provider First Name . Referring Provider Last Name [facility] Referred Organization [facility] Referred Provider Liban Reynoso Referred Address [address] [place],[address], Referred Provider Specialty Medicatio ns Referral Priority Routine Problems Problem Type SNOMED Code ICD Code Onset Dates Problem Status W/U Status Risk Notes Problem Information temporarily unavaila ble Attention and concentration deficit (R41.840) ActiveconfirmedProblemInformation temporarily unavailableOther dental procedure status (Z98.818)ActiveconfirmedProblemInformation temporarily unavailableMajor depressive disorder, recurrent severe without psychotic features (F33.2)Active confirmed Encounters Encounter Location Date Provider Diagnosis [facility] [address] [place] [address] 10/04/2024 Liban Reynoso [facility] [place] [address]/ Liban RizkDental caries on pit and fissure surface penetrating into dentin K02.52[facility] [address] [place] [address] 08/08/2024Joseph LeikEncounter for dental examination and cleaning with abnormal findings Z01.21 and Dental caries on pit and fissure surface penetrating into dentin K02.[address] [place] [address]/igor MarteEncounter for dental examination and cleaning with abnormal findings Z01.21 Assessments Encounter Date Diagnosis (ICD Code) Assessment Notes Treatment Notes Treatment Clinical Notes Section Notes 08/08/2024 Encounter for dental examination and cleaning with abnormal findings (ICD-10 - Z01.21) 10/03/2024Encounter for dental examination and cleaning with abnormal findings (ICD-10 - Z01.21)10/19/2024Dental caries on pit and fissure surface penetrating into dentin (ICD-10 - K02.52)08/08/2024Dental caries on pit and fissure surface penetrating into dentin (ICD-10 - K02.52) Plan Of Treatment Next Appt Details Provider Name:Melanie grey, 07/03/2025 01:15:00 PM, [address] [place], [address], Insurance Providers Payer Name Payer Address Payer Phone Subscriber Number Group Number Insured Name Patient Relationship to Insured Coverage Start Date Coverage End Date DENTAL BCBS FEP [address] [facility] [place] [place] [address] [id number] TIFFANI GROSSMAN Self - patient is the insured 3 [employer] CLAIMS [address] [place] [phone] [id number], NIKKISelf - patient is the [id number] 2024
--- OUTSIDE RECORDS SUMMARY | 2025-06-30 11:11 | XMS_ITS | Patient Health Record ---
Author Organization [facility] [place] Address [address] [place] [address] Care Team Providers Care Pin Drafter Operator Name Role Phone None, Unknown or Primary Care Provider Unavailab Joana Sánchez Unavailable [phone] Reason For Referral No Information Problems Problem Type SNOMED Code ICD Code Onset Dates Problem Status W/U Status Risk Notes Problem Information temporarily unavailable Hyper tension (I10) ActiveconfirmedProblemInformation temporarily unavailableHypothyroidism (E03.9) ActiveconfirmedProblemInformation temporarily unavailableAnxiety (F41.9)Active confirmedProblemInformation temporarily unavailableDiabetes mellitus (E11.9) Activeconfirmed Encounters Encounter Location Date Provider Diagnosis [facility] [address] [place] [address] 08/21/2024 Joana Mauricio Plan Of Treatment No Information Insurance Providers Payer Name Payer Address Payer Phone Subscriber Number Group Number Insured Name Patient Relationship to Insured Coverage Start Date Coverage End Date [employer] [address] [address] [place] [address] W [id number] Kali Allison - patient is the spouse of the insuredPROVIDENCE [facility] MEDICAL CENTERPO [address] [place] [id number], NIKKISelf - patient is the insured
--- OUTSIDE RECORDS SUMMARY | 2025-06-30 11:12 | XMS_ITS | Clinical Summary ---
Author Organization [facility] Address [id number] [place] [address] Care Team Providers Care Order Worker Name Role Phone No Pcp, No Pcp Primary Care Provider Unavailabl e Allergies Active AllergyReactionsCriticalityNoted DateCommentsPenicillinsAnaphylaxisHigh 10/27/20226819Mwopmyspgh52/24/2024 Medications MedicationSigDispense QuantityRefillsLast FilledStart DateEnd DateStatus amLODIPine (NORVASC) 10 mg tablet Take 1 tablet (10 mg total) by mouth in the morning.09/24/2022ctive busPIRone (BUSPAR) 10 mg tablet Take 1 tablet (10 mg total) by mouth in the morning and 1 tablet (10 mg total) before bedtime.08/31/2022ctive chlorhexidine (PERIDEX) 0.12 % solution TAKE 15 ML IN MOUTH & SWISH FOR 30 SECONDS THEN SPIT OUT TWICE DAILY FOR 20 DAYS 09/28/2022ctive fluocinonide (LIDEX) 0.05 % external solution APPLY TO THE AFFECTED AREA(S) EVERY OTHER DAY09/25/2022ctive hydrOXYzine (VISTARIL) 25 mg capsule TAKE 1 CAPSULE BY MOUTH TWICE DAILY BFDVTX7410/14/2022ctive SYNTHROID 137 mcg tablet 08/23/2022ctive metoprolol succinate XL (TOPROL XL) 100 mg 24 hr tablet Take 1 tablet (100 mg total) by mouth in the morning.09/09/2022ctive sertraline (ZOLOFT) 100 mg tablet Take 1 tablet (100 mg total) by mouth in the morning.10/14/2022ctive buPROPion XL (WELLBUTRIN XL) 150 mg 24 hr tablet Take 1 tablet (150 mg total) by mouth in the morning.Active diphenhydramine HCl (UNISOM, DIPHENHYDRAMINE, ORAL) Take 50 mg by mouth.Active escitalopram (LEXAPRO) 10 mg tablet Take 1 tablet (10 mg total) by mouth in the morning.Active ferrous sulfate 325 (65 FE) mg EC tablet Take 1 tablet (325 mg total) by mouth in the morning and 1 tablet (325 mg total) at noon and 1 tablet (325 mg total) in the evening. Take with meals.Active melatonin 1 mg tablet,chewable Chew and swallow.Active omeprazole (PriLOSEC) 40 mg capsule Take 1 capsule (40 mg total) by mouth in the morning.Active levothyroxine (SYNTHROID, LEVOTHROID) 25 MCG tablet Take 1 tablet (25 mcg total) by mouth in the morning.Active aspirin 81 mg Take 1 tablet (81 mg total) by mouth in the morning.Active Active Problems ProblemNoted DateDiagnosed DateEssential hypertension affecting in second /22/2024Iron deficiency anemia, fpefgedfwcw98/22/2023 Family History Medical HistoryRelationNameCommentsHeart diseaseFatherDiabetesMotherHypertension MotherRelationNameStatusCommentsFatherMother Social History Tobacco UseTypesPacks/DayYears UsedDateSmoking Tobacco: NeverSmokeless Tobacco: Never Tobacco Cessation:Counseling Given: Not Answered Alcohol UseStandard Drinks/WeekCommentsNot Currently0 (1 standard drink = 0.6 oz pure alcohol)Hunger ScreeningAnswerDate RecordedWithin the past 12 months we worried whether our food would run out before we got money to buy more.Never True09/22/2023Within the past 12 months the food we bought just didn't last and we didn't have money to get more.Never True09/22/2023CommentsNoSex and Gender InformationValueDate RecordedSex Assigned at WpyweXmhrkf66/03/2024 10:49 AM EDTLegal FtnGmybqz24/22/2023 8:37 AM EDTGender VtzfxnbjOqjqbr14/03/2024 10:49 AM EDTSexual TswqubbpynqPsjqrmic59/03/2024 10:49 AM EDT Last Filed Vital Signs Vital SignReadingTime TakenCommentsBlood Sdlqibzr383/7409/22/2023 9:42 AM EST Hluyy181709/22/2023 9:42 AM AFKGlephhgpazw65.7 ??C (98.1 ??F)11/11/2022 9:28 AM EDTRespiratory Wtpg928411/11/2022 9:28 AM EDTOxygen Xhuuvueewx75%11/11/2022 9:28 AM EDTInhaled Oxygen Concentration--Vnhcri580.8 kg (312 lb 9.6 oz)09/22/2023 9:42 AM RSAIovcnz166.8 cm (5' 10 )11/11/2022 9:28 AM EDTBody Mass Index44.85 11/11/2022 9:28 AM EDT Plan of Treatment Health MaintenanceDue DateLast DoneCommentsDepression Awvvfhidi89/03/1999 DTaP,Tdap and Td Vaccines (1 - Tdap)2005Pap Smear11/02/2007dult BMI Zohmxrbfu60/22/838682/Tobacco Qybhbbmor39/22/524263/Influenza Ptaxzcm71 Medical Devices Not on file Insurance Care Teams Team MemberRelationshipSpecialtyStart DateEnd Date [place], [place] [address] [facility] - [facility]
[2025-06-30 11:20] LABS: Hematocrit 41.0 % (36.0-48.0); Hemoglobin 14.2 g/dL (12.0-16.0); Mean Corpuscular HGB Conc 34.6 g/dL (29.9-35.2); Mean Corpuscular Hemoglobin 29.0 pg (26.7-34.0); Mean Corpuscular Volume 83.7 fL (81.0-99.0); Platelet Count 192 10^3/uL (150-450); Red Blood Count 4.90 10^6/uL (4.20-5.40); White Blood Count 9.7 10^3/uL (4.0-11.0)
[2025-06-30] MEDS: 0.9 % SODIUM CHLORIDE 1,000 ML 1000 ML IV (11:23)
[2025-06-30 11:33] LABS: Anion Gap 11.5; Blood Urea Nitrogen 6.0 mg/dL (7.0-18.0); Calcium 8.3 mg/dL (8.5-10.1); Carbon Dioxide 29.0 mmol/L (21.0-32.0); Chloride 106 mmol/L (98-107); Estimated GFR (African America >60 (>=60 mL/min/1.73m^2); Estimated GFR (Non-African Ame >60 (>=60 mL/min/1.73m^2); Glucose 88 mg/dL (74-106); Potassium 3.5 mmol/L (3.5-5.1); Sodium 143 mmol/L (136-145)
[2025-06-30 11:49] LABS: Glucose Urine UA NEGATIVE (NEGATIVE)
[2025-06-30 11:51] LABS: HCG Qualitative Urine* NEGATIVE (NEGATIVE)
[2025-06-30 12:00] LABS: Basophils Abs Manual 0.00 10^3/uL (0.00-0.10); Basophils Percent Manual 0.0 % (0.2-2.0); Eosinophils Absolute Manual 0.29 10^3/uL (0.00-0.70); Eosinophils Percent Manual 3.0 % (0.9-7.0); Lymphocytes Absolute Manual 0.48 10^3/uL (1.20-3.80); Lymphocytes Percent Manual 5.0 % (20.5-60.0); Monocytes Absolute Manual 0.29 10^3/uL (0.30-0.80); Monocytes Percent Manual 3.0 % (1.7-12.0); Segmented Neut Absolute Manual 8.63 10^3/uL (1.4-6.5); Segmented Neutrophils % Manual 89.0 (43.0-75.0)
[2025-06-30 12:04] LABS: Cast Seen? NONE SEEN #/LPF (NONE SEEN); Crystals Seen? None Seen #/HPF (None Seen); Urine Culture Indicated YES-FRMC
[2025-06-30 12:27] VITALS: TEMP 36.8
[2025-06-30] MEDS: LEVOFLOXACIN IN DEXTROSE 5 % 500 MG/100 ML PREMIX 100 MG IV (12:49)
[2025-06-30] MEDS: KETOROLAC TROMETHAMINE 30 MG/ML VIAL IVP (13:21)
== END 2025-06-30 14:07 | disposition home or self-care (01) ==
PROVIDERS: Emergency Provider Emergency Medicine; PCP Nurse Practitioner Family
DX: N39.0 Urinary tract infection, site not specified (principal)
CPT/HCPCS: 36415; 80048; 81001; 84703; 85007; 85027; 87086; 96361; 96365; 96375; 99285; J1885; J2405